=== PATIENT | female | born 1970 | race Caucasian/White ===

== ENCOUNTER 2023-07-15 09:09 | Outpatient (OUT) | payer OTHER, SELFPAY ==
--- NOTE | 2023-07-15 | XR_ITS ---
The [address] [address] Patient Name: RAHEEM DUNCAN MRN: [id number] date: 1970 Sex: F Assigned Patient Location: Current Patient Location: Accession/Order Number: [id number] Exam Date: 07/15/2023 09:30 Report Date: 07/15/2023 12:52 At the request of: RADHA GARLAND Procedure: XR lumbar spine min 4V EXAMINATION: XR lumbar spine min 4V HISTORY: LUMBAR PAIN COMPARISON: No relevant comparison available. FINDINGS: BONES: Neutral projection demonstrates no acute fracture or spondylolisthesis. Mild degenerative spondylosis. [id number] facet osteoarthropathy DISC SPACES: Normal. No significant disc height narrowing, subluxation, or endplate abnormality. PARASPINOUS: Negative. No paraspinous abnormality is seen. OTHER: No transient spondylolisthesis with flexion or extension XR/XR lumbar spine min 4V IMPRESSION: Degenerative changes most significant at T12-L1 Electronically authenticated by: EDSON ARCHIBALD Date: 07/15/2023 12:52
== END 2023-07-15 09:10 | disposition home or self-care (01) ==
LOC: EC 09:09
PROVIDERS: PCP Internal Medicine; Visit Provider Orthopaedic Surgery Orthopaedic Surgery of the Spine
DX: M54.50 Low back pain, unspecified (principal); M51.34 Other intervertebral disc degeneration, thoracic region
CPT/HCPCS: 72110

== ENCOUNTER 2023-08-17 10:51 | Outpatient (OUT) | payer OTHER, SELFPAY ==
--- NOTE | 2023-08-17 10:59 | ECG_ITS ---
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
--- NOTE | 2023-08-17 11:00 | XR_ITS ---
The [address] [address] Patient Name: RAHEEM DUNCAN MRN: [id number] date: 1970 Sex: F Assigned Patient Location: [facility] Current Patient Location: [facility] Accession/Order Number: [id number] Exam Date: 08/17/2023 11:45 Report Date: 08/17/2023 12:24 At the request of: RADHA GARLAND Procedure: XR chest 2V EXAM: XR chest 2V HISTORY: Preop exam COMPARISON: 03/06/2020 TECHNIQUE: Upright PA and lateral chest x-ray FINDINGS: The heart is not enlarged and the vasculature is not distended. A very small amount of atelectasis or scarring is seen at the left lung base. No acute infiltrate, effusion or pneumothorax is identified. There has been interval surgery with hardware now projecting over the cervical spine. XR/XR chest 2V IMPRESSION: No acute infiltrate or evidence of cardiac decompensation. A small amount of atelectasis or scarring is seen at the left lung base. There is been interval cervical spine surgery, the overall appearance of the chest is otherwise unchanged. Electronically authenticated by: SHAWNEE TELLES Date: 08/17/2023 12:24
--- OUTSIDE RECORDS SUMMARY | 2023-08-17 11:15 | XMS_ITS | CCD ---
Author Organization [facility] Care Team Providers Care Ux Developer Designer Name Role Phone MAGED MURDOCK Unavailable Unavailable LINDSEY AGUILAR (PA) Unavailable Unavail able DEVANTE YAN (VARNISH MIXER) Unavailable UnavailULYSSES Phillips JR Unavailable Unavail able MAGED MURDOCK Unavailable Unavailable LINDSEY AGUILAR (PA) Unavailable Unavail able UNKNOWN, PROVIDER Unavailable Unavailable UNKNOWN, PROVIDER Unavailable Unavailable ULYSSES RICHARDSON Unavailable Unavailable ULYSSES RICHARDSON Unavailable Unavailable PEREZ LESTER Admitting Unavailable ULYSSES RICHARDSON Primary Care Unavailable AZAR MAN Consulting Unavailable PEREZ LESTER Attending Unavailable PEREZ LESTER Consulting Unavailable MAT CASEY Consulting Unavailable Fela Smith Consulting Unavailable WALI BUSTILLOS Consulting Unavailable SHAIKH SALES Consulting Unavailable RADHA ELLIS Referring Unavailable ULYSSES RICHARDSON JR Primary Care Unavailable RADHA ELLIS Referring Unavailable ULYSSES RICHARDSON JR Primary Care Unavailable Allergies Allergy Classification Reported Allergen(s) Allergy Type Date of Onset Reaction(s) Facility (1 source) Morphine; Translations: [MORPHINE] Drug Allergy 10-18-2022 [facility] Problems Problem Classification Problem Date Documented Date Episodic/Chronic Complication of device; implant or graft (1 source) Breakdown (mechanical) of other specified internal prosthetic devices, implants and grafts, initial encounter; Translations: [BRKDWN OTH INTRL PROS DEVC GFT INIT] Onset: 03-18-2020 Episodic Immunizations and screening for infectious disease (1 source) Contact with and (suspected) exposure to other viral communicable diseases; Translations: [CONTCT EXPS OTH VIRL COMMUNICABL DZ] Onset: 03-18-2020 Episodic Mood disorders (1 source) Major depressive disorder, single episode, unspecified; Translations: [DEBBIE DEPRESS D/O SINGLE EPIS UNS] Onset: 03-18-2020 Other connective tissue disease (1 source) Arthrodesis status; Translations: [ARTHRODESIS STATUS] Onset: 04-27-2018 Episodic Other connective tissue disease (1 source) Rhabdomyolysis; Translations: [RHABDOMYOLYSIS] Onset: 03-18-2020 Episodic Other ear and sense organ disorders (1 source) Unspecified sensorineural hearing loss; Translations: [UNS SENSORINEURAL HEARING LOSS] Onset: 03-18-2020 Chronic Other injuries and conditions due to external causes (1 source) Elevated urine levels of drugs, medicaments and biological substances; Translations: [ELEV URIN LEVELS RX MEDS AND BIO SUBS] Onset: 03-18-2020 Episodic Other nervous system disorders (1 source) Other chronic pain; Translations: [OTHER CHRONIC PAIN] Onset: 03-18-2020 Chronic Poisoning by other medications and drugs (4 sources) Poisoning by other opioids, accidental (unintentional), initial encounter; Translations: [POISON OTH OPIOIDS ACC INITIAL ENC] Onset: 03-06-2020 Spondylosis; intervertebral disc disorders; other back problems (7 sources) Other spondylosis with radiculopathy, cervical region; Translations: [Other spondylosis with radiculopathy, lumbar region] Onset: 04-27-2018 Chronic Spondylosis; intervertebral disc disorders; other back problems (5 sources) Radiculopathy, cervical region; Translations: [Radiculopathy, lumbar region] Onset: 04-27-2018 Episodic Substance-related disorders (1 source) Nicotine dependence, cigarettes, uncomplicated; Translations: [NICOTINE DEPEND CIGARETTES UNCOMP] Onset: 03-18-2020 Chronic Unclassified (3 sources) Unknown / UNK(Unknown) Onset: 12-08-2017 Results Test Name Value Interpretation Reference Range Facility CARDIAC AZAR ADMITon 020 CK [Catalytic activity/Vol] 915 U/L Critically high 30-135 [facility] Comment on above: Result Comment: Test repeated. Critical value verified. Performed By: #### D RUGRPD #### [facility] [address], [place] [address] Christian Degroot CK.MB [Mass/Vol] 12.82 ng/mL Critically high <=2.37 Th [facility] Comment on above: Result Comment: Test repeated. Critical value verified. Performed By: #### D RUGRPD #### [facility] [address], [place] [address] Christian Mikayla INR Coag (Bld) [Relative time] SEE BELOW Normal [facility] Comment on above: Result Comment: <0.0 34 ng/ml NEGATIVE 0.034-0.119 INDETERMINATE 0.120 AMI CUT OFF Performed By: #### D RUGRPD #### [facility] [address] [place] [id number] Christian Mikayla ÁNGEL 96.0 ng/mL Critically high <=61.5 [facility] Comment on above: Performed By: #### D RUGRPD #### [facility] [address] [place] [address] Christian Mikayla TROP 0.028 ng/mL Normal <=0.034 [facility] Comment on above: Performed By: #### D RUGRPD #### [facility] [address] [place] [address] Christian Mikayla CK [Catalytic activity/Vol] 1282 U/L Critically high 30-135 [facility] Comment on above: Result Comment: Test repeated. Critical value verified. Performed By: #### T ROP, CMP #### [facility] [address] [place] [address] Christian Mikayla CK.MB [Mass/Vol] 24.63 ng/mL Critically high <=2.37 Th [facility] Comment on above: Result Comment: Test repeated. Critical value verified. Performed By: #### T ROP, CMP #### [facility] [address] [place] [address] Christian Mikayla INR Coag (Bld) [Relative time] SEE BELOW Normal [facility] Comment on above: Result Comment: <0.0 34 ng/ml NEGATIVE 0.034-0.119 INDETERMINATE 0.120 AMI CUT OFF Performed By: #### T ROP, CMP #### [facility] [address] [place], [place] [id number] Christian Mikayla ÁNGEL 235.0 ng/mL Critically high <=61.5 [facility] Comment on above: Performed By: #### T ROP, CMP #### [facility] [address] [place] [address] Christian Mikayla TROP 0.033 ng/mL Normal <=0.034 [facility] Comment on above: Performed By: #### T ROP, CMP #### [facility] [address] [place] [address] Christian Mikayla CBC AUTO DIFFon 03-07-2020 Basophils (Bld) [#/Vol] 0.0 103/ul Normal 0.0-0.1 [facility] Comment on above: Performed By: #### C BC #### [facility] [address] [place] [address] Christian Mikayla Basophils/100 WBC (Bld) 0.1 % Critically low 0.2-2.0 [facility] Comment on above: Performed By: #### C BC #### [facility] [address] [place] [address] Christian Mikayla Eosinophils (Bld) [#/Vol] 0.0 103/ul Normal 0.0-0.7 [facility] Comment on above: Performed By: #### C BC #### [facility] [address] [place] [address] Christian Mikayla Eosinophils/100 WBC (Bld) 0.0 % Critically low 0.9-7.0 [facility] Comment on above: Performed By: #### C BC #### [facility] [address] [place] [address] Christian Mikayla Erythrocyte distribution width (RBC) [Ratio] 13.4 % Normal 11.0-15.0 [facility] Comment on above: Performed By: #### C BC #### [facility] [address] [place] [address] Christian Mikayla Hematocrit (Bld) [Volume fraction] 35.4 % Critically low 36.0-48.0 [facility] Comment on above: Performed By: #### C BC #### [facility] [address] [place] [address] Christian Mikayla Hemoglobin (Bld) [Mass/Vol] 11.4 g/dL Critically low 12.0-16.0 [facility] Comment on above: Performed By: #### C BC #### [facility] [address] [place] [address] Christian Mikayla IG # 0.07 10e3/ul Critically high 0.00-0.03 [facility] Comment on above: Performed By: #### C BC #### [facility] [address] [place] [id number] Christian Mikayla IG % 0.4 % Normal 0.0-0.5 [facility] Comment on above: Performed By: #### C BC #### [facility] [address] [place] [address] Christian Mikayla Lymphocytes (Bld) [#/Vol] 1.1 103/ul Critically low 1.2-3.8 [facility] Comment on above: Performed By: #### C BC #### [facility] [address] [place] [address] Christian Mikayla Lymphocytes/100 WBC (Bld) 6.9 % Critically low 20.5-60.0 [facility] Comment on above: Performed By: #### C BC #### [facility] [address] [place] [address] Christian Mikayla MANUAL DIFF REQ NO Normal [facility] Comment on above: Performed By: #### C BC #### [facility] [address] [place], [place] [phone] Christian Mikayla MCH (RBC) [Entitic mass] 32.7 pg Normal 26.7-34.0 [facility] Comment on above: Performed By: #### C BC #### [facility] [address] [place] [address] Christian Mikayla MCHC (RBC) [Mass/Vol] 32.2 g/dL Normal 29.9-35.2 [facility] Comment on above: Performed By: #### C BC #### [facility] [address] [place], [place] [address] Christian Mikayla MCV (RBC) [Entitic vol] 101.4 fL Critically high 81.0-99.0 [facility] Comment on above: Performed By: #### C BC #### [facility] [address] [place], [place] [address] Christian Mikayla Monocytes (Bld) [#/Vol] 1.4 103/ul Critically high 0.3-0.8 [facility] Comment on above: Performed By: #### C BC #### [facility] [address] [place] [address] Christian Mikayla Monocytes/100 WBC (Bld) 8.6 % Normal 1.7-12.0 [facility] Comment on above: Performed By: #### C BC #### [facility] [address] [place], [place] [address] Christian Mikayla Neutrophils (Bld) [#/Vol] 13.4 103/ul Critically high 1.4-6.5 [facility] Comment on above: Performed By: #### C BC #### [facility] [address] [place], [place] [address] Christian Mikayla Neutrophils/100 WBC (Bld) 84.0 % Critically high 43.0-75.0 [facility] Comment on above: Performed By: #### C BC #### [facility] [address] [place], [place] [address] Christian Mikayla Platelet mean volume (Bld) [Entitic vol] 9.5 fL Normal 9.5-13.5 [facility] Comment on above: Performed By: #### C BC #### [facility] [address] [place] [address] Christian Mikayla Platelets (Bld) [#/Vol] 207 103/ul Normal 150-450 [facility] Comment on above: Performed By: #### C BC #### [facility] [address] [place] [address] Christian Miakyla RBC (Bld) [#/Vol] 3.49 106/ul Critically low 4.20-5.40 Th [facility] Comment on above: Performed By: #### C BC #### [facility] [address] [place], [place] [address] Christian Mikayla WBC (Bld) [#/Vol] 16.0 103/ul Critically high 4.0-11.0 [facility] Comment on above: Performed By: #### C BC #### [facility] [address], [place] [address] Christian Mikayla PROF CHEM 8 (BAS METB)on Anion gap [Moles/Vol] 11.2 mmol/L Normal [facility] Comment on above: Performed By: #### D RUGRPD #### [facility] [address] [place] [id number] Christian Mikayla Calcium [Mass/Vol] 8.3 mg/dL Critically low 8.4-10.2 Th [facility] Comment on above: Performed By: #### D RUGRPD #### [facility] [address] [place] [address] Christian Mikayla Chloride [Moles/Vol] 106 mmol/L Normal 98-107 [facility] Comment on above: Performed By: #### D RUGRPD #### [facility] [address] [place] [address] Christian Mikayla CO2 [Moles/Vol] 24.5 mmol/L Normal 22.0-30.0 [facility] Comment on above: Performed By: #### D RUGRPD #### [facility] [address] [place], [place] [address] Christian Mikayla Creatinine [Mass/Vol] 0.53 mg/dL Normal 0.52-1.04 [facility] Comment on above: Performed By: #### D RUGRPD #### [facility] [address] [place], [place] [address] Christian Mikayla EGFR-AF GUINEAN >60 Normal >=60 [facility] Comment on above: Performed By: #### D RUGRPD #### [facility] [address] [place] [address] Christian Mikayla EGFR-NON AF GUINEAN >60 Normal >=60 [facility] Comment on above: Performed By: #### D RUGRPD #### [facility] [address] [place] [address] Christian Mikayla Glucose [Mass/Vol] 113 mg/dL Critically high 74-106 T [facility] Comment on above: Performed By: #### D RUGRPD #### [facility] [address] [place] [address] Christian Mikayla Potassium [Moles/Vol] 3.7 mmol/L Normal 3.4-5.0 [facility] Comment on above: Performed By: #### D RUGRPD #### [facility] [address] [place], [place] [address] Christian Mikayla Sodium [Moles/Vol] 138 mmol/L Normal 137-145 [facility] Comment on above: Performed By: #### D RUGRPD #### [facility] [address] [place] [address] Christian Mikayla Urea nitrogen [Mass/Vol] 12.0 mg/dL Normal 7.0-17.0 [facility] Comment on above: Performed By: #### D JUNED #### [facility] [address] [place] [address] Christian Mikayla Urea nitrogen/Creatinin e [Mass ratio] 22.6 mg/mg Normal [facility] Comment on above: Performed By: #### D RUGLANDYD #### [facility] [address] [place], [place] [address] Christian Mikayla CBC W MANUAL DIFFon 03-06-20 20 ATYPICAL LYMPH # Normal [facility] Comment on above: Performed By: #### D JUNED #### [facility] [address] [place] [address] Christian Mikayla ATYPICAL LYMPH % Normal [facility] Comment on above: Performed By: #### D RUGRPD #### [facility] [address] [place], [place] [address] Christian Mikayla BAND # Normal 0.0-0.3 [facility] Comment on above: Performed By: #### D RUGRPD #### [facility] [address] [place], [place] [address] Christian Mikayla BAND % Normal 0-5 [facility] Comment on above: Performed By: #### D RUGRPD #### [facility] [address] [place], [place] [address] Christian Mikayla BASOM # 0.00 103/ul Normal 0.00-0.10 [facility] Comment on above: Performed By: #### D RUGRPD #### [facility] [address] [place] [id number] Christian Mikayla BASOM % 0.0 % Critically low 0.2-2.0 [facility] Comment on above: Performed By: #### D RUGRPD #### [facility] [address] [place] [address] Christian Mikayla BLAST # Normal [facility] Comment on above: Performed By: #### D RUGRPD #### [facility] [address] [place] [address] Christian Mikayla BLAST % Normal [facility] Comment on above: Performed By: #### D RUGRPD #### [facility] [address] [place] [address] Christian Mikayla CORRECTED WBC Normal 4.0-11.0 [facility] Comment on above: Performed By: #### D RUGJONAS #### [facility] [address] [place] [address] Christian Mikayla Eosinophils (Bld) [#/Vol] 0.00 103/ul Normal 0.00-0.70 [facility] Comment on above: Performed By: #### D RUGRPD #### [facility] [address] [place] [address] Christian Mikayla Eosinophils/100 WBC (Bld) 0.0 % Critically low 0.9-7.0 [facility] Comment on above: Performed By: #### D RUGRPD #### [facility] [address] [place] [address] Christian Mikayla Erythrocyte distribution width (RBC) [Ratio] 13.2 % Normal 11.0-15.0 [facility] Comment on above: Performed By: #### D RUGRPD #### [facility] [address] [place] [address] Christian Mikayla Hematocrit (Bld) [Volume fraction] 44.1 % Normal 36.0-48.0 [facility] Comment on above: Performed By: #### D RUGRPD #### [facility] [address] [place], [place] [address] Christian Mikayla Hemoglobin (Bld) [Mass/Vol] 13.9 g/dl Normal 12.0-16.0 [facility] Comment on above: Performed By: #### D MARIAMARPD #### [facility] [address] [place] [id number] Christian Mikayla LYMPHM # 0.26 103/ul Critically low 1.20-3.80 [facility] Comment on above: Performed By: #### D JUNED #### [facility] [address] [place] [id number] Christian Mikayla LYMPHM% 1.0 % Critically low 20.5-60.0 [facility] Comment on above: Performed By: #### D COLT #### [facility] [address] [place], [place] [address] Christian Mikayla MCH (RBC) [Entitic mass] 32.6 pg Normal 26.7-34.0 [facility] Comment on above: Performed By: #### D COLT #### [facility] [address] [place], [place] [address] Christian Mikayla MCHC (RBC) [Mass/Vol] 31.5 g/dl Normal 29.9-35.2 [facility] Comment on above: Performed By: #### D RUGRPD #### [facility] [address] [place], [place] [address] Christian Mikayla MCV (RBC) [Entitic vol] 103.3 fL Critically high 81.0-99.0 [facility] Comment on above: Performed By: #### D JUNED #### [facility] [address] [place] [address] Christian Mikayla METAMYELOCYTE # Normal [facility] Comment on above: Performed By: #### D RUGRPD #### [facility] [address] [place], [place] [address] Christian Mikayla METAMYELOCYTE % Normal [facility] Comment on above: Performed By: #### D COLT #### [facility] [address] [place], [place] [address] Christian Mikayla MONOM# 1.32 103/ul Critically high 0.30-0.80 [facility] Comment on above: Performed By: #### D RUGRPD #### [facility] [address], [place] [address] Christianvíctor Degroot MONOM% 5.0 % Normal 1.7-12.0 [facility] Comment on above: Performed By: #### D RUGRPD #### [facility] [address] [place] [id number] Christian Mikayla MYELOCYTE # Normal [facility] Comment on above: Performed By: #### D RUGRPD #### [facility] [address] [place] [address] Christian Mikayla MYELOCYTE % Normal [facility] Comment on above: Performed By: #### D RUGRPD #### [facility] [address] [place], [place] [address] Christian Mikayla NRBC Normal [facility] Comment on above: Performed By: #### D RUGRPD #### [facility] [address] [place] [address] Christianvíctor Santanaen Platelet mean volume (Bld) [Entitic vol] 9.6 fL Normal 9.5-13.5 [facility] Comment on above: Performed By: #### D RUGRPD #### [facility] [address] [place] [address] Christian Mikayla Platelets (Bld) [#/Vol] 268 103/ul Normal 150-450 [facility] Comment on above: Performed By: #### D RUGRPD #### [facility] [address] [place] [address] Christian Mikayla RBC (Bld) [#/Vol] 4.27 106/ul Normal 4.20-5.40 [facility] Comment on above: Performed By: #### D RUGRPD #### [facility] [address] [place] [address] Christian Mikayla SEG # 24.82 103/ul Critically high 1.40-6.50 [facility] Comment on above: Performed By: #### D RUGRPD #### [facility] [address] [place] [address] Christian Degroot Segmented neutrophils/100 WBC (Bld) 94.0 % Critically high 43.0-75.0 [facility] Comment on above: Performed By: #### D RUGRPD #### [facility] [address] [place] [address] Christian Degroot WBC (Bld) [#/Vol] 26.4 103/ul Critically high 4.0-11.0 [facility] Comment on above: Performed By: #### D RUGRPD #### [facility] [address] [place] [address] Christian Degroot CPKon 03-06-2020 CK [Catalytic activity/Vol] 464 U/L Critically high 30-135 [facility] Comment on above: Result Comment: test repeated critical value verified Performed By: #### C K #### [facility] [address] [place], [place] [address] Christian Degroot CT ABD/PELV W CONon 03-06-[address] ABD/PELV W CON EXAMINATION: CT ABD/ PELV W CON HISTORY: UNSPECIFIED ABDOMINAL PAIN . Found unresponsive. COMPARISON: None. TECHNIQUE: Enhanced helical acquisition was obtained through the abdomen or pelvis. (100 mL Omnipaque 300). Dose reduction techniques were achieved by using automated exposure control and/or adjustment of mA and/or kV according to patient size and/or use of iterative reconstruction technique. FINDINGS: Dependent bibasilar atelectasis is present within the included lung bases. There is diffuse periportal edema within the liver. A 1.1 cm cyst is noted within the dome of the left hepatic lobe as well as a smaller 1 cm left lobe and 0.6 cm right hepatic lobe cysts. Focal fatty infiltration is noted within the left hepatic lobe adjacent to the falciform ligament. The spleen, pancreas, adrenal glands and the kidneys are unremarkable. Mild atherosclerotic vascular consultation to present involving the abdominal aorta. No enlarged lymph nodes are visualized within the abdomen. There is beam hardening artifact secondary to pain pump within the subcutaneous anterolateral left abdominal wall. No enlarged lymph nodes are visualized within the abdomen or the pelvis. The appendix is unremarkable. Bilateral adnexal cysts are present, largest on the right measuring 4.4 cm in diameter. No ascites or focal intraperitoneal fluid collections are visualized. Foreman catheter is present within the urinary bladder. IMPRESSION: 1. Bilateral adnexal cysts, the largest on the right measuring 4.4 cm in diameter. This could be more optimally characterized with dedicated pelvic ultrasound. 2. Periportal edema within the liver is noted. This may be secondary to hypervolemia or may occur in the setting of diffuse hepatocellular disease such as hepatitis. Recommend correlation with LFTs. 3. Incidental hepatic cysts. Electronically authenticated by: MAT CASEY Date: 2020-03-06 18:45 Normal [facility] CT STROKE HEAD WOon 03-06-[address] STROKE HEAD WO EXAMINATION: CT STRO KE HEAD WO HISTORY: Unresponsive COMPARISON: None. TECHNIQUE: CT examination of the head without IV contrast. Dose reduction techniques were achieved by using automated exposure control and/or adjustment of mA and/or kV according to patient size and/or use of iterative reconstruction technique. FINDINGS: No midline shift, mass effect or intracranial hemorrhage are identified. The mastoid air cells and the visualized paranasal sinuses are clear. No evidence of calvarial fracture. IMPRESSION: No acute intracranial process. Critical results were called by Dr. Mat Casey to JACKY Archibald At 03/06/2020 3:59 PM EDT. Electronically authenticated by: MAT CASEY Date: 2020-03-06 16:31 Normal [facility] DRUG SCREEN RAPID (URINE)on 03-06-2020 AMP Positive Normal NEGATIVE [facility] Comment on above: Performed By: #### D RUGRPD #### [facility] [address] [address] Christian Mikayla BAR Negative Normal NEGATIVE [facility] Comment on above: Performed By: #### D RUGRPD #### [facility] [address] [address] Christian Mikayla BUP Negative Normal NEGATIVE [facility] Comment on above: Performed By: #### D RUGRPD #### [facility] [address] [address] Christian Mikayla BZO Negative Normal NEGATIVE [facility] Comment on above: Performed By: #### D RUGRPD #### [facility] [address] [address] Christian Mikayla RITCHIE Negative Normal NEGATIVE [facility] Comment on above: Performed By: #### D RUGRPD #### [facility] [address] [place] [address] Christian Mikayla CUT-OFFS SEE BELOW Normal [facility] Comment on above: Result Comment: AMP (Amphetamine): 500ng/mL, BAR (Barbituates): 200 ng/mL, BZO (Benzodiazepines): 150 ng/mL, BUP (Buprenorphine): 10 ng/mL, RITCHIE (Cocaine): 150 ng/mL, mAMP (Methamphetamine): 500 ng/mL, MTD (Methadone): 200 ng/mL, OPI (Opiates): 100 ng/mL or 2000 ng/mL, OXY (Oxycodone): 100 ng/mL, PCP (Phencyclidine): 25 ng/mL, PPX (Propoxyphene): 300 ng/mL, THC (Cannabinoids): 50 ng/mL, TCA (Trycyclic Antidepressants): 300 ng/mL Performed By: #### D RUGRPD #### [facility] [address] [place] [address] DRUG CUT HEADER DRUG CLASS TEST SYST EM CUT-OFF CONCENTRATIONS ARE FOLLOWS: Normal [facility] Comment on above: Performed By: #### D RUGRPD #### [facility] [address] [place] [address] Christian Mikayla mAMP Negative Normal NEGATIVE [facility] Comment on above: Performed By: #### D RUGRPD #### [facility] [address] [place] [address] Christian Mikayla MTD Negative Normal NEGATIVE [facility] Comment on above: Performed By: #### D RUGRPD #### [facility] [address] [place] [address] Christian Mikayla OPI Positive Normal NEGATIVE [facility] Comment on above: Performed By: #### D RUGRPD #### [facility] [address] [place] [address] Christian Mikayla OXY Negative Normal NEGATIVE [facility] Comment on above: Performed By: #### D RUGRPD #### [facility] [address] [place] [address] Christian Mikayla PCP Negative Normal NEGATIVE [facility] Comment on above: Performed By: #### D RUGRPD #### [facility] [address] [place] [address] Christian Mikayla PPX Negative Normal NEGATIVE [facility] Comment on above: Performed By: #### D RUGRPD #### [facility] [address] [place] [address] Christian Mikayla TCA Negative Normal NEGATIVE [facility] Comment on above: Performed By: #### D RUGRPD #### [facility] [address] [place] [address] Christian Mikayla THC Negative Normal NEGATIVE [facility] Comment on above: Performed By: #### D RUGRPD #### [facility] [address] [place] [address] Christian Mikayla ER URINE PROFILEon 0 Bilirubin [Mass/Vol] Negative Normal NEGATIVE [facility] Comment on above: Performed By: #### E RUR #### [facility] [address] [place] [address] Christian Mikayla BLOOD Negative Normal NEGATIVE [facility] Comment on above: Performed By: #### E RUR #### [facility] [address] [place] [address] Christian Mikayla Clarity (U) CLEAR Normal [facility] Comment on above: Performed By: #### E RUR #### [facility] [address] [place] [address] Christian Mikayla Color (U) YELLOW Normal YELLOW [facility] Comment on above: Performed By: #### E RUR #### [facility] [address] [place], [place] [id number] Christian Mikayla ERUAHD A micrscopic examina tion will be performed if indicated. Normal [facility] Comment on above: Performed By: #### E RUR #### [facility] [address] [place] [address] Christian Mikayla Glucose [Mass/Vol] Negative Normal NEGATIVE [facility] Comment on above: Performed By: #### E RUR #### [facility] [address] [place], [place] [id number] Christian Mikayla Ketones Ql (U) Negative Normal NEGATIVE [facility] Comment on above: Performed By: #### E RUR #### [facility] [address] [place], [place] [phone] Christian Mikayla Nitrite Ql (U) Negative Normal NEGATIVE [facility] Comment on above: Performed By: #### E RUR #### [facility] [address] [place] [address] Christian Mikayla pH (Bld) 6.0 Normal 5-9 [facility] Comment on above: Performed By: #### E RUR #### [facility] [address] [place] [address] Christian Mikayla Protein (U) [Mass/Vol] TRACE Normal [facility] Comment on above: Performed By: #### E RUR #### [facility] [address] [place] [address] Christian Mikayla SPEC GRAVITY >=1.030 Normal 1.005-<=1.02 5 [facility] Comment on above: Performed By: #### E RUR #### [facility] [address] [place] [address] Christianvíctor Degroot UR MICRO IND NOT INDICATED Normal [facility] Comment on above: Performed By: #### E RUR #### [facility] [address] [place] [address] Christianvíctor Degroot Urobilinogen Qn (U) 0.2 EU/dl Normal [facility] Comment on above: Performed By: #### E RUR #### [facility] [address] [place], [place] [phone] Christian Mikayla WBC (Bld) [#/Vol] Negative Normal NEGATIVE [facility] Comment on above: Performed By: #### E RUR #### [facility] [address] [place], [place] [phone] Christian Mikayla ETHANOL (BLD ALC)on 03-06-20 20 Ethanol [Mass/Vol] NOTE: 80 mg/dl is th e legal limit for a blood alcohol level Normal [facility] Comment on above: Performed By: #### E TH #### [facility] [address] [place], [place] [address] Christian Degroot Ethanol [Mass/Vol] mg/dL Normal [facility] Comment on above: Performed By: #### E TH #### [facility] [address] [place] [address] Christian Degroot HEMOGRAM AND PLATELon 2019 WBC (Bld) [#/Vol] 23.5 103/ul Critically high 4.0-11.0 [facility] Comment on above: Performed By: #### H H #### [facility] [address] [place] [address] Christian Degroot LACTATE/LACTIC ACIDon 2019 Lactate [Moles/Vol] 0.7 mmol/L Normal 0.7-2.0 [facility] Comment on above: Performed By: #### L ACT #### [facility] [address] [place] [address] Christian Degroot MYOGLOBINon 03-06-2020 Myoglobin [Mass/Vol] 918.0 ng/mL Critically high <=61.5 [facility] Comment on above: Result Comment: test repeated critical value verified Performed By: #### M YO #### [facility] [address] [place] [address] Christian Degroot POINT OF CARE GLUCOSEon 02-14 Glucose [Mass/Vol] 117 mg/dL Critically high 74-106 [facility] Comment on above: Performed By: #### D RUGRPD #### [facility] [address] [place] [address] Christian Degroot PROF 14(COMP METB)on 020 Albumin [Mass/Vol] 3.3 g/dL Critically low 3.5-5.0 [facility] Comment on above: Performed By: #### T ROP, CMP #### [facility] [address] [place], [place] [phone] Christian Degroot Albumin/Globulin [Mass ratio] 1.1 {ratio} Normal [facility] Comment on above: Performed By: #### T ROP, CMP #### [facility] [address] [id number] Christian Mikayla ALP [Catalytic activity/Vol] 69 U/L Normal 38-126 [facility] Comment on above: Performed By: #### T ROP, CMP #### [facility] [address] [phone] Christian Mikayla ALT [Catalytic activity/Vol] 30 U/L Normal 9-52 [facility] Comment on above: Performed By: #### T ROP, CMP #### [facility] [address] [id number] Christian Mikayla Anion gap [Moles/Vol] 16.8 mmol/L Normal [facility] Comment on above: Performed By: #### T ROP, CMP #### [facility] [address] [address] Christian Mikayla AST [Catalytic activity/Vol] 29 U/L Normal 14-36 [facility] Comment on above: Performed By: #### T ROP, CMP #### [facility] [address] [id number] Christian Mikayla Bilirubin Ql (U) 0.4 mg/dL Normal 0.2-1.3 [facility] Comment on above: Performed By: #### T ROP, CMP #### [facility] [address] [phone] Christian Mikayla Calcium [Mass/Vol] 8.7 mg/dL Normal 8.4-10.2 [facility] Comment on above: Performed By: #### T ROP, CMP #### [facility] [address] [phone] Christian Mikayla Chloride [Moles/Vol] 104 mmol/L Normal 98-107 [facility] Comment on above: Performed By: #### T ROP, CMP #### [facility] [address] [phone] Christian Mikayla CO2 [Moles/Vol] 22.6 mmol/L Normal 22.0-30.0 [facility] Comment on above: Performed By: #### T ROP, CMP #### [facility] [address] [phone] Christian Mikayla Creatinine [Mass/Vol] 0.92 mg/dL Normal 0.52-1.04 [facility] Comment on above: Performed By: #### T ROP, CMP #### [facility] [address] [phone] Christian Mikayla EGFR-AF GUINEAN >60 Normal >=60 [facility] Comment on above: Performed By: #### T ROP, CMP #### [facility] [address] [address] Christian Mikayla EGFR-NON AF GUINEAN >60 Normal >=60 [facility] Comment on above: Performed By: #### T ROP, CMP #### [facility] [address] [address] Christian Mikayla Globulin (S) [Mass/Vol] 3.0 g/dL Normal [facility] Comment on above: Performed By: #### T ROP, CMP #### [facility] [address] [address] Christian Mikayla Glucose [Mass/Vol] 130 mg/dL Critically high 74-106 [facility] Comment on above: Performed By: #### T ROP, CMP #### [facility] [address] [address] Christian Mikayla Potassium [Moles/Vol] 4.4 mmol/L Normal 3.4-5.0 [facility] Comment on above: Performed By: #### T ROP, CMP #### [facility] [address] [address] Christian Mikayla Protein [Mass/Vol] 6.3 g/dL Normal 6.1-8.2 [facility] Comment on above: Performed By: #### T ROP, CMP #### [facility] [address] [address] Christian Mikayla Sodium [Moles/Vol] 139 mmol/L Normal 137-145 [facility] Comment on above: Performed By: #### T ROP, CMP #### [facility] [address] [place] [address] Christian Mikayla Urea nitrogen [Mass/Vol] 18.0 mg/dL Critically high 7.0-17.0 [facility] Comment on above: Performed By: #### T BLAYNE, CMP #### [facility] [address] [place] [address] Christian Mikayla Urea nitrogen/Creatinin e [Mass ratio] 19.6 mg/mg Normal [facility] Comment on above: Performed By: #### T BLAYNE, CMP #### [facility] [address] [place] [address] Christian Mikayla RESPIRATORY PANEL PLUSon Adenovirus NOT DETECTED Normal NOT DETECTED [facility] Comment on above: Performed By: #### D RUGRPD #### [facility] [address] [place] [address] Christian Mikayla B. Parapertusis NOT DETECTED Normal NOT DETECTED [facility] Comment on above: Performed By: #### D RUGRPD #### [facility] [address] [place] [address] Christian Mikayla B. Pertussis NOT DETECTED Normal NOT DETECTED [facility] Comment on above: Performed By: #### D RUGRPD #### [facility] [address] [place] [address] Christian Mikayla Chlamydia Pneumoniae NOT DETECTED Normal NOT DETECTED [facility] Comment on above: Performed By: #### D RUGRPD #### [facility] [address] [place] [address] Christian Mikayla Coronavirus 229E NOT DETECTED Normal NOT DETECTED [facility] Comment on above: Performed By: #### D RUGRPD #### [facility] [address] [place] [address] Christian Mikayla Coronavirus HKU1 NOT DETECTED Normal NOT DETECTED [facility] Comment on above: Performed By: #### D RUGRPD #### [facility] [address] [place] [address] Christian Mikayla Coronavirus NL63 NOT DETECTED Normal NOT DETECTED [facility] Comment on above: Performed By: #### D RUGRPD #### [facility] [address] [address] Christian Mikayla Coronavirus OC43 NOT DETECTED Normal NOT DETECTED [facility] Comment on above: Performed By: #### D RUGRPD #### [facility] [address] [address] Christian Mikayla Influenza A H1 2009 NOT DETECTED Normal NOT DETECTED [facility] Comment on above: Performed By: #### D RUGRPD #### [facility] [address] [address] Christian Mikayla Influenza B NOT DETECTED Normal NOT DETECTED [facility] Comment on above: Performed By: #### D RUGRPD #### [facility] [address] [place] [address] Christian Mikayla Metapneumovirus NOT DETECTED Normal NOT DETECTED [facility] Comment on above: Performed By: #### D RUGRPD #### [facility] [address] [place] [address] Christian Mikayla Mycoplas. Pneumoniae NOT DETECTED Normal NOT DETECTED [facility] Comment on above: Performed By: #### D RUGRPD #### [facility] [address] [address] Christian Mikayla Parainfluenza 1 NOT DETECTED Normal NOT DETECTED [facility] Comment on above: Performed By: #### D RUGRPD #### [facility] [address] [address] Christian Mikayla Parainfluenza 2 NOT DETECTED Normal NOT DETECTED [facility] Comment on above: Performed By: #### D RUGRPD #### [facility] [address] [place] [address] Christian Mikayla Parainfluenza 3 NOT DETECTED Normal NOT DETECTED [facility] Comment on above: Performed By: #### D RUGRPD #### [facility] [address] [address] Christian Mikayla Parainfluenza 4 NOT DETECTED Normal NOT DETECTED [facility] Comment on above: Performed By: #### D RUGRPD #### [facility] [address] [place] [address] Christian Degroot Rhino/Enterovirus NOT DETECTED Normal NOT DETECTED [facility] Comment on above: Performed By: #### D RUGRPD #### [facility] [address] [place] [address] Christian Degroot RP2 Header 1 RESPIRATORY PANEL: VIRUSES Normal [facility] Comment on above: Performed By: #### D RUGRPD #### [facility] [address] [place] [address] Christian Degroot RP2 Header 2 RESPIRATORY PANEL: BACTERIA Normal [facility] Comment on above: Performed By: #### D RUGRPD #### [facility] [address] [place] [address] Christian Degroot RP2 Header 4 EUA SEE BELOW Normal [facility] Comment on above: Result Comment: This test is not yet approved or cleared by the [place] FDA. When there are no FDA-approved or cleared tests available, and other criteria are met, FDA can make tests available under an emergency access mechanism called an Emergency Use Authorization (EUA). The EUA for this test is supported by the [employer] of Health and Human Service?s (HHS?s) declaration that circumstances exist to justify the emergency use of in vitro diagnostics for the detection and/or diagnosis of the virus that causes COVID-19. This EUA will remain in effect (meaning this test can be used) for the duration of the COVID-19 declaration justifying emergency of IVDs, unless it is terminated or revoked by FDA (after which the test may no longer be used). Performed By: #### D RUGRPD #### [facility] [address] [place] [address] Christian Degroot RSV NOT DETECTED Normal NOT DETECTED [facility] Comment on above: Performed By: #### D RUGRPD #### [facility] [address] [place] [address] Christian Degroot SARS-CoV-2: COVID-19 NOT DETECTED Normal NOT DETECTED [facility] Comment on above: Performed By: #### D RUGRPD #### [facility] [address] [place] [address] Christian Degroot TROPONIN - Ion 10-22-2020 Troponin I.cardiac [Mass/Vol] 0.016 ng/mL Normal <=0.034 [facility] Comment on above: Performed By: #### T BLAYNE CMP #### [facility] [address] [place], [place] [address] Christian Degroot Troponin I.cardiac [Mass/Vol] SEE BELOW Normal [facility] Comment on above: Result Comment: <0.0 34 ng/ml NEGATIVE 0.034-0.119 INDETERMINATE 0.120 AMI CUT OFF Performed By: #### T BLAYNE CMP #### [facility] [address] [place], [place] [address] Christian Degroot XR CHEST 1 Von 03-06-2020 XR CHEST 1 V EXAM: Portable chest REASON FOR EXAM: Shortness of breath. Patient was found unresponsive at home. The patient has a morphine pump implanted, and the patient was given Narcan by EMS. TECHNIQUE: A portable frontal view of the chest was obtained. COMPARISON: None. FINDINGS: The lungs are well-inflated and clear. The heart and mediastinum are normal. There is no mass or pathologic adenopathy. Osseous structures are normal. IMPRESSION: No acute cardiopulmonary process. Electronically authenticated by: FELA SMITH Date: 2020-03-06 15:07 Normal [facility] CT 3D CERVICAL SPINE WITH CO NTRASTon 04-27-2018 CT 3D [facility] [address] [place] [address] Patient Name: RADHA DUNCAN : 1970Sex: FAge: Race: WhiteMRN: [id number]. Location: 85Patient Status: OVisit #: [id number] Date: 04/10/2018 12:10:00 PMCompleted Date: 04/27/2018 10:58 AMRequesting Provider: MARY DIAL Attending Provider: MARY DIAL Report Copy To: ULYSSES RICHARDSON Signs & Symptoms: M54.12 Radiculopathy, cervical region [id number]: Nyla MYELOGRAM AUTH [id number] VALID 04/11/18-07/12/18 PER [employer] [facility] [id number] JYComments: Exam: CT 3D CERVICAL SPINE WITH CONTRASTAccession #: [id number] CT 3D CERVICAL SPINE WITH CONTRAST 04/27/2018 10:58 AM EST SIGN AND SYMPTOMS: M54.12 Radiculopathy, cervical region I10 TECHNOLOGIST COMMENTS: neck pain low back pain Radiculopathy PROTOCOL: Axial CT images of the spine were obtained with IV contrast. TECHNIQUE: Multi detector CT axial slices of the cervical spine are obtained without IV contrast. Subarachnoid contrast administered during myelogram. Volumetric acquisition sagittal, coronal, and 3-D reconstructions were performed and reviewed on a separate workstation. Appropriate CT dose lowering techniques were utilized. COMPARISON: Myelogram April 27, 2018. Cervical spine February 28, 2017. FINDINGS: Satisfactory alignment of the cervical spine.Anterior fusion hardware at C4-C6 with disc spacers. There is satisfactory bony fusion.Moderate degenerative changes at C3-C4. There is a broad-based disc bulge which flattens the anterior thecal sac and causes mild central canal narrowing. Uncovertebral joint spurring with disc osteophyte complex causes mild neural foraminal narrowing.Partial ossification of the posterior longitudinal ligament posterior to C2-C3.The remaining intervertebral disc spaces are well-preserved.The atlantoaxial space is within normal limits.The soft tissues in the neck are unremarkable.There is scarring at the lung apices which are otherwise unremarkable. IMPRESSION: 1. Moderate degenerative changes at C3-C4. Broad-based disc bulge causes mild central canal narrowing. Disc osteophyte complex causes mild neural foraminal narrowing.2. Anterior fusion hardware at C4-C6 with disc spacers. No hardware complication. Approved by:Mandeep Young on 04/27/2018 11:14 AM EST. I, Oli Sanders, have reviewed the images and report and concur with these findings. Electronically signed by:Oli Sanders. Transcribed by: [email or web address], User Resident: MANDEEP YOUNGElectronically Signed by: OLI SANDERS @ 04/27/2018 01:02 PMI personally read this/these film(s) with this resident Normal The [facility] CT 3D LUMBAR SPINE W CONTRAS Ton 04-27-2018 CT 3D LUMBAR SPINE W CONTRAST [facility] [address] [id number] Patient Name: RADHA DUNCAN : 1970Sex: FAge: Race: WhiteMRN: [id number]. Location: 85Patient Status: DVisit #: [id number] Date: 04/10/2018 12:10:00 PMCompleted Date: 04/27/2018 10:59 AMRequesting Provider: MARY DIAL Attending Provider: MARY DIAL Report Copy To: ULYSSES RICHARDSON Signs & Symptoms: M54.16 Radiculopathy, lumbar region [id number]: Nyla MYELOGRAM AUTH [id number] VALID 04/11/18-07/12/18 [facility] [id number] JYComments: Exam: CT 3D LUMBAR SPINE W CONTRASTAccession #: [id number] CT 3D LUMBAR SPINE W CONTRAST 04/27/2018 10:59 AM EST TECHNOLOGIST COMMENTS: neck pain low back pain Radiculopathy PROTOCOL: Axial CT images of the spine were obtained with IV contrast. TECHNIQUE: Multi detector CT axial slices of the lumbar spine are obtained without IV contrast. Intrathecal contrast administered during myelogram. Volumetric acquisition sagittal, coronal, and 3-D reconstructions were performed and reviewed on a separate workstation. Appropriate CT dose lowering techniques were utilized. COMPARISON: None FINDINGS: Satisfactory alignment of the lumbar spine.The vertebral body heights are well-preserved.Mild disc space narrowing at L3-4 and L4-5.The conus appears to terminate at the L1 vertebral body level. L1-L2: There is a normal central canal and bony neural foramina. L2-L3: There is a normal central canal and bony neural foramina. L3-L4: There is a broad-based disc bulge which flattens the anterior thecal sac. Mild central canal narrowing. Facet hypertrophy. No significant neural foraminal narrowing. L4-5: Broad-based disc bulge which flattens the anterior thecal sac. Mild central canal narrowing. Facet joint hypertrophy. No significant neural foraminal narrowing. L5-S1: There is a normal central canal. Facet joint hypertrophy. No significant bony neural foraminal narrowing. IMPRESSION: 1. No high-grade central canal or neural foraminal narrowing.2. Small broad-based disc bulges which flattens the anterior thecal sac and causes mild central canal narrowing at L3-L4 and L4-L5.3. Facet hypertrophy at L3-S1. Approved by:Mandeep Young on 04/27/2018 2:51 PM EST. I, Martínez Skelton, have reviewed the images and report and concur with these findings. Electronically signed by:Martínez Skelton. Transcribed by: [id number], User Resident: MANDEEP YOUNGElectronically Signed by: MARTÍNEZ SKELTON @ 04/27/2018 05:36 PMI personally read this/these film(s) with this resident Normal [facility] ENTIRE MYELOGRAMon 8 E[facility]IRE [facility]GRAM [facility] [address] [place] [address] Patient Name: RADHA DUNCAN : 1970Sex: FAge: Race: WhiteMRN: [id number]. Location: 85Patient Status: OVisit #: [id number] Date: 04/10/2018 12:10:00 PMCompleted Date: 04/27/2018 10:19 AMRequesting Provider: MARY DIAL Attending Provider: MARY DIAL Report Copy To: ULYSSES RICHARDSON Signs & Symptoms: M54.16 Radiculopathy, lumbar region V59Cngbwkx: [place] CT MYELOGRAMComments: , , , Ordering Provider - MARY DIAL MD , Exam: ENTIRE MYELOGRAMAccession #: [id number] ENTIRE MYELOGRAM 04/27/2018 10:19 AM EST SIGNS AND SYMPTOMS: M54.16 Radiculopathy, lumbar region I10 TECHNOLOGIST COMMENTS: Dr. Young/Román/Pepe used 0.70 minutes of fluoro time and 12 ml's of Omnipaque 240 for a cervical and lumbar myelogram QUESTION FOR THE RADIOLOGIST: , , , Ordering Provider - MARY DIAL MD , INFORMED CONSENT: Reason for procedure was discussed with the patient. The procedure expectations risks benefits options and alternatives were discussed. All the questions were answered. The patient understood that results cannot be guaranteed. The procedure is indicated and risks are acceptable. Consent was obtained. Timeout:[place] protocol timeout verification performed. PROCEDURE:Estimated blood loss:None mL. Fluoroscopy time: 0.70 minutes CONTRAST: Contrast: OMNIPAQUE 240 (LOCM), 12 milliliter, subarachnoid FINDINGS:Lidocaine 1% ws used for local anesthesia. Lumbar punction was performed under fluroscopic guidance with strict aseptic precautions at L3-L4 via oblique sublaminar approach using a 3.5 inch 22-guage Retrograde free flow of clear CSF was obtained.Approximately 12 mL of Omnipaque 240 was introduced under intermittent fluoroscopic visualization. Images were obtained of the lumbar spine. The table was placed in Trendelenburg position and the contrast was visualized fluoroscopically as transit of the cervical spine. The patient tolerated the procedure well and was sent for CT cervical and lumbar myelogram. Procedure done by Dr. Young under direct supervision of Dr. Sanders IMPRESSION: Successful cervical and lumbar myelogram. Please see separate CT total spine report for detailed findings. Patient tolerated the procedure well and there were no immediate complications. Approved by:Mandeep Young on 04/27/2018 11:26 AM CHARLEEN. I, Oli Sanders, have reviewed the images and report and concur with these findings. Electronically signed by:Oli Sanders. Transcribed by: [email or web address], User Resident: MANDEEP YOUNGElectronically Signed by: OLI SANDERS @ 04/27/2018 01:01 PMI personally read this/these film(s) with this resident Normal [facility] Comment on above: Order Comment: , , = ========= , Ordering Provider - MARY DIAL MD , Ta 02-20-2018 SONIA Telephone (ETELVINA) -------RADHA DUNCAN ([id number]) 1970 [facility] Time Provider Kodggqynnl07/8/18 MAGED MURDOCK During your visit today, we recorded the following information about you:Sumanthrolly [facility] Patient Service Spec 02/20/2018 8:05 AM SignedPt recv'd a letter for the release of care.Pt does not want a release of care letter.Pt is requesting a referral to have her procedure closer to where she lives.Please advise and phone pt. at number in contacts.Elysia Montoya Psr 02/22/2018 8:36 AM SignedPatient calling to see if Dr. Murdock can do referral for her to get procedurecloser to home; not to be released from his care.Please call her back at [phone].Elysia Garza Psr 02/22/2018 8:37 AM SignedPlease fax letter over to [phone].Clint Park LPN 02/27/2018 10:18 AM SignedSpoke with patient and she wanted to know if knew of a physician inthe area that she lived that could do the ketamine infusion.I explained most likely he would not have this information she would need tocheck around in her area with other pain providers to see if they do theinfusions. She said [place] found one in the [place] area but they want money upfront and it is up to the patient to send it to the insurance company.She doesnot have the up front money.I explained that he was going to send her for a research trial and this couldbe covered by the trial she would need to go and find out more about the trialand how it works. She said she is going to check a few more places and if theywon't do it she will call back.Maged Murdock MD 02/28/2018 2:01 PM SignedI already printed this information for the patient, including a name of adoctor in her areaI handed it to her on the day of the last visit personallyJimi Joyner As of Date: 02/20/2018(No Known Allergies)Date Reviewed: 02/10/2018Reviewed by: Kayla Sparks LPN - Fully AssessedReason for Visit: Letter [264]Prescriptions as of 02/20/2018 Sig: DULOXETINE 60 MG CAPSULE,KIET* Cymbalta 60 mg capsule,delaye* OXCARBAZEPINE 150 MG TABLET Take 1 tablet by mouth twice * OXYCODONE-ACETAMINOPHEN 5 MG-* Take 1 tablet by mouth every * BACLOFEN ORAL Take 100 mg by mouth once kim*Problem List As Of Date 02/20/2018 Noted Resolved Back pain [M54.9] Former smoker [Z87.891] Neck pain [M54.2] INVALID FOR* 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] INVALID FOR* Status:Closed by MAGED MURDOCK MD on 02/28/18 [facility] CNOVon 02-10-2018 CNOV Office Visit (PAINCC) -------RADHA DUNCAN ([id number]) 1970 FDate Time Provider Department02/10/18 10:45 AM MAGED MURDOCK [facility] During your visit today, we recorded the following information about you: Pulse Respiration Blood pressure Weight 80/minute 16/minute 132/47 69.9 kgJosenjourdan Murdock MD 02/11/2018 1:30 PM AddendumSUBJECTIVE:The patient presents to [facility] Department for afollow-up appointment for pain in the neck,shoulders and my arms It is described as:Aching(+)Stiff(+)Burning (+)Stabbing(-)Constant(+)Th e patient rates it as a 6/10. The pain is worse when the patient performsthe following actions: weather. Using arms trying to hold things. [place] FH: patient denies any family history of the chief complaint for this visitSH: denies illicit drug useIs the patient receiving analgesia/pain relief from the current medications?(+)baclofen,per cocet,ibuprofen and cymbalta helpHas the current medication improved activities of daily living? (+)Have the current medications been associated with any adverse events? (-)Has the patient displayed any aberrant drug-related behaviors? (-)Last took opioid medication: percocet was last taken 02/09/2018 [facility] [place] [facility].Imaging results in scanned documents dates 12/2017REVIEW OF SYSTEMS:GENERAL: (-) weight loss, (+)malaise, (-)fevers.HEENT:(+)headache s.NECK: (-) for lumps, goiter, (+)pain and (-)significant neck swelling.RESPIRATORY: (-) for cough, wheezing or shortness of breath.CARDIOVASCULAR: (-) for chest pain, leg swelling or palpitations.GI: (+) abdominal discomfort, (-)blood in stools or black stools or change inbowel habits.MUSCULOSKELETAL: (+)joint pain , (-)swelling, (+)back pain, (+)muscle pain.SKIN: (+) for lesions, rash, and itching.shoulder areaPSYCH: (+)sleep disturbance, (-)mood disorder, (-)recent psychosocial stressors.HEMATOLOGY/LYMPHO LOGY: (-) for prolonged bleeding, bruising easily or swollennodes.NEURO: (+)syncope, paralysis, seizures or tremors.All other reviewed and negative other than HPI.Data scribed by above mentioned MA/NURSE SANE/RN/PA, and personally reviewed andverified by physician. Maged Murdock MDOBJECTIVE:PHYSICAL EXAMINATION:VS: BP (!) 132/47 Pulse 80 Resp 16 Wt 69.9 kg (154 lb) BMI 26.43kg/m?GENERAL: Well appearing. No acute distressPSYCH: Mood and affect is appropriate. Awake, alert, and oriented x 3SKIN: Skin color, texture, turgor normal, no rashes or lesionsOtolaryng/HEENT: Normocephalic, atraumatic. EOM intactRESP: Respirations are unlaboredCARD: Regular rate. Cap refill <2s. Extremities pink and well perfused atnailbed.GI: Abdomen soft and non-tender.MSK: Bilateral upper and lower extremity strength is normal and symmetric. Noatrophy or tone abnormalities are noted.Cervical: (-)pain to palpation over the cervical paraspinal muscles.Lumbar: Straight leg raising is negative. (+) pain to palpation lumbarparaspinal muscles. facet loading is (+) bilaterally. No pain to palpation overthe PSIS.Gait: Gait is antalgicNEURO: Bilateral upper and lower extremity coordination are intact. Musclestretch reflexes are physiologic and symmetric. No loss of sensationASSESSMENT AND MEDICAL DECISION MAKING:The patient is a 48 year old female with neck and UE painDx:Facet syndrome (hcc) (primary encounter diagnosis)Cervical spondylosis without myelopathyPain in thoracic spineCurrent smokerRadiculopathy, cervical regionCervical post-laminectomy syndrome?PLAN:Based on your newest MRI scans, the pain in your neck and arms appears to bedue to a combination of: 1. facet syndrome 2. central sensitizationThe pain can be treated with periodic ketamine infusion.Since you did not tolerate the cervical facet joint medial branch nerveablation at an outside hospital I would not recommend pursuing that further.You can have the ketamine infusion here as part of a research trial, or at alocation nearer to home.Please call with any questions.Direct patient care time spent: 25+15 min. Of this, greater than 50% of thiswas spent in the presence of the patient for purposes of education andcounseling regarding the diagnosis and treatment of pain.Patient is aware that any diagnostic testing is best discussed in person tofully explain the significance and resulting treatment plan. Patient agreeswith above. Maged Murdock, [facility]2017Referring Provider: LINDSEY AGUILAR [[id number]]Allergies As of Date: 02/10/2018(No Known Allergies)Date Reviewed: 02/10/2018Reviewed by: Kayla Sparks LPN - Fully AssessedReason for Visit: Follow Up [171]Visit Diagnoses:Cervical facet syndrome [M47.812] Neuralgia and neuritis [M79.2]Prescriptions as of 02/10/2018 Sig: DULOXETINE 60 MG CAPSULE,KIET* Cymbalta 60 mg capsule,delaye* OXCARBAZEPINE 150 MG TABLET Take 1 tablet by mouth twice * OXYCODONE-ACETAMINOPHEN 5 MG-* Take 1 tablet by mouth every * BACLOFEN ORAL Take 100 mg by mouth once kim*Problem List As Of Date 02/10/2018 Noted Resolved Back pain [M54.9] Former smoker [Z87.891] Neck pain [M54.2] INVALID FOR* 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] INVALID FOR*Letter TextSept[address] [facility] [address] [place], [place] [phone], [place] [phone] Radha Duncan:Thank you for seeing me today. Based on your newest MRI scans, the pain inyour neck and arms appears to be due to a combination of:1. facet syndrome2. central sensitizationThe pain can be treated with periodic ketamine infusion. Since you did nottolerate the cervical facet joint medial branch nerve ablation at an outsidehospital I would not pursue that further.You can have the ketamine infusion here as part of a research trial, or at alocation nearer to home. Please call with any questions. Sincerely, Maged Murdock MDEncounter Number: [id number] Status:Closed by MAGED MURDOCK MD on 02/11/18 Normal [facility] PROGRESSon 02-10-2018 Protein mass conc HNO ID: [id number] thor: Maged Jolleyervice: (none)Author Type: PhysicianType: Progress NotesFiled: 02/11/2018 1:30 PMNote Text:SUBJECTIVE:[facility] Management Departmentfor a follow-up appointment for pain in the neck,shoulders and my arms It is described as:Aching(+)Stiff(+)Burning (+)Stabbing(-)Constant(+)Th e patient rates it as a 6/10. The pain is worse when the patientperforms the following actions: weather. Using arms trying to holdthings. [place] FH: patient denies any family history of the chief complaint for thisvisitSH: denies illicit drug useIs the patient receiving analgesia/pain relief from the currentmedications? (+)baclofen,percocet,ibupro fen and cymbalta helpHas the current medication improved activities of daily living? (+)Have the current medications been associated with any adverse events? (-)Has the patient displayed any aberrant drug-related behaviors? (-)Last took opioid medication: percocet was last taken 02/09/2018 in thelate morningRelevant OARRS records were reviewed.Imaging results in scanned documents dates 12/2017REVIEW OF SYSTEMS:GENERAL: (-) weight loss, (+)malaise, (-)fevers.HEENT:(+)headache s.NECK: (-) for lumps, goiter, (+)pain and (-)significant neck swelling.RESPIRATORY: (-) for cough, wheezing or shortness of breath.CARDIOVASCULAR: (-) for chest pain, leg swelling or palpitations.GI: (+) abdominal discomfort, (-)blood in stools or black stools orchange in bowel habits.MUSCULOSKELETAL: (+)joint pain , (-)swelling, (+)back pain, (+)musclepain.SKIN: (+) for lesions, rash, and itching.shoulder areaPSYCH: (+)sleep disturbance, (-)mood disorder, (-)recent psychosocialstressors.HEMAT OLOGY/LYMPHOLOGY: (-) for prolonged bleeding, bruising easily orswollen nodes.NEURO: (+)syncope, paralysis, seizures or tremors.All other reviewed and negative other than HPI.Data scribed by above mentioned MA/NURSE SANE/RN/PA, and personally reviewed andverified by physician. Maged Murdock MDOBJECTIVE:PHYSICAL EXAMINATION:VS: BP (!) 132/47 Pulse 80 Resp 16 Wt 69.9 kg (154 lb) BMI26.43 kg/m?GENERAL: Well appearing. No acute distressPSYCH: Mood and affect is appropriate. Awake, alert, and oriented x 3SKIN: Skin color, texture, turgor normal, no rashes or lesionsOtolaryng/HEENT: Normocephalic, atraumatic. EOM intactRESP: Respirations are unlaboredCARD: Regular rate. Cap refill <2s. Extremities pink and well perfused atnailbed.GI: Abdomen soft and non-tender.MSK: Bilateral upper and lower extremity strength is normal andsymmetric. No atrophy or tone abnormalities are noted.Cervical: (-)pain to palpation over the cervical paraspinal muscles.Lumbar: Straight leg raising is negative. (+) pain to palpation lumbarparaspinal muscles. facet loading is (+) bilaterally. No pain to palpationover the PSIS.Gait: Gait is antalgicNEURO: Bilateral upper and lower extremity coordination are intact.Muscle stretch reflexes are physiologic and symmetric. No loss ofsensationASSESSMENT AND MEDICAL DECISION MAKING:The patient is a 48 year old female with neck and UE painDx:Facet syndrome (hcc) (primary encounter diagnosis)Cervical spondylosis without myelopathyPain in thoracic spineCurrent smokerRadiculopathy, cervical regionCervical post-laminectomy syndrome?PLAN:Based on your newest MRI scans, the pain in your neck and arms appears crys due to a combination of: 1. facet syndrome 2. central sensitizationThe pain can be treated with periodic ketamine infusion.Since you did not tolerate the cervical facet joint medial branch nerveablation at an outside hospital I would not recommend pursuing thatfurther.You can have the ketamine infusion here as part of a research trial, or jonh location nearer to home.Please call with any questions.Direct patient care time spent: 25+15 min. Of this, greater than 50% ofthis was spent in the presence of the patient for purposes of educationand counseling regarding the diagnosis and treatment of pain.Patient is aware that any diagnostic testing is best discussed in personto fully explain the significance and resulting treatment plan. Patientagrees with above. Maged Murdock, PAUeptember 2017 Normal [facility] CNOVon 01-10-2018 CNOV Office Visit (PAINCC) -------RADHA DUNCAN ([id number]) 1970 FDate Time Provider Department01/10/18 1:00 PM DEVANTE YAN ([employer]ER) PAINCC During your visit today, we recorded the following information about you: Pulse Blood pressure Weight 85/minute 127/47 70.3 kgDevante Yan APRN.CNP 01/10/2018 2:13 PM SignedSUBJECTIVE:The patient presents to [facility] Management Department for afollow-up appointment for pain in the neck and shoulders. It is described as:Aching(+)Sharp (+)Numb and tingling (+)The patient rates it as a 5/10. The pain is worse when the patient performsthe following actions: physical activity. FH: patient denies any family history of the chief complaint for this visitSH: denies illicit drug useIs the patient receiving analgesia/pain relief from the current medications?(+) takes the edge offHas the current medication improved activities of daily living? (+)Have the current medications been associated with any adverse events? (+)Has the patient displayed any aberrant drug-related behaviors? (-)Relevant OARRS records were reviewed.MRI of cervical spine:C2-C3: No significant disc/facet abnormality, spinal stenosis, or foraminalstenosisC3-C4: Mild-moderate foraminal narrowing bilaterally. Mild central canalnarrowing. Moderate diffuse disc bulging and mild disc height reductionC4-C5: Moderate right mild left foraminal narrowing. Mild central canalnarrowing. Moderate diffuse disc bulging and mild disc height reductionC5-C6: Early degenerative disc disease is present without focal protrusion orneural impingementC6-C7: No significant disc/facet abnormality spinal stenosis, or foraminalstenosisC7-T1: No significant disc/facet abnormality spinal stenosis or foraminalstenosisConclusion : Mild to moderate foraminal narrowing at C3-C4, and C4-C5 secondaryto DDDAnterior mechanical fusion of L8-0-3AQWANH OF SYSTEMS:GENERAL: (-) weight loss, (+)malaise, (-)fevers.HEENT:(+)headache s.NECK: (-) for lumps, goiter, (+)pain and (-)significant neck swelling.RESPIRATORY: (+) for cough, wheezing or shortness of breath.CARDIOVASCULAR: (-) for chest pain, leg swelling or palpitations.GI: (-) abdominal discomfort, (-)blood in stools or black stools or change inbowel habits.MUSCULOSKELETAL: (+)joint pain , (-)swelling, (+)back pain, (+)muscle pain.SKIN: (-) for lesions, rash, and itching.PSYCH: (+)sleep disturbance, (-)mood disorder, (+)recent psychosocial stressors(re-applied for disability.HEMATOLOGY/LYMPH OLOGY: (-) for prolonged bleeding, bruising easily or swollennodes.NEURO: (-)syncope, paralysis, seizures or tremors.All other reviewed and negative other than HPI.Data scribed by above mentioned MA/NURSE SANE/RN/PA, and personally reviewed andverified by Devante Yan APRN.CNPOBJECTIVE:PHYSICAL EXAMINATION:VS: BP (!) 127/47 Pulse 85 Wt 70.3 kg (155 lb) BMI 26.61 kg/m?GENERAL: Well appearing. No acute distressPSYCH: Mood and affect is appropriate. Awake, alert, and oriented x 3SKIN: Skin color, texture, turgor normal, no rashes or lesionsOtolaryng/HEENT: Normocephalic, atraumatic. EOM intactRESP: Respirations are unlaboredCARD: Regular rate. Cap refill <2s Extremities pink and well perfused atnailbedGI: Abdomen soft and non-tenderMSK: Bilateral upper and lower extremity strength is normal and symmetric. Noatrophy or tone abnormalities are noted.Cervical: (+)pain to palpation over the cervical paraspinal muscles. Pain withrotation of cervical spine L>RThoracic: = pain with palpation over the thoracic paraspinal musclesLumbar: Straight leg raising is negative. (-) pain to palpation lumbarparaspinal muscles. Facet loading is (-) bilaterally. No pain to palpation overthe PSIS.Gait: Gait is antalgicNEURO: Bilateral upper and lower extremity coordination are intact. Musclestretch reflexes are physiologic and symmetric. no loss of sensation is noted.ASSESSMENT AND MEDICAL DECISION MAKING:The patient is a 48 year old female with chronic neck painPain is same, at occiput pain both sides of neck that radiates into shoulderblades and into handsPain with holding objects in hands for prolonged period of timeShe is worried about returning to work as her job involves repetitive movementsand workMRI of cervical spine reviewed with patientShe asks if she can return to workDx:Facet syndrome (hcc) (primary encounter diagnosis)Cervical spondylosis without myelopathyPain in thoracic spineCurrent smokerRadiculopathy, cervical regionCervical post-laminectomy syndromePLAN:1) Discussed Chronic Pain Rehab (pt does not have transportation to attend thisprogram for the week)2) Discussed option of Cervical facet blocks, patient had worsening of her painwhen these where performed in the past3) Will discuss with Dr. Murdock patient's current symptoms and call withfurther recommendations4) Pt has had failed trials of NSAIDs, Gabapentin and Lyrica5) Continue HEP, and TENS unit to affected area6) Return to clinic as neededDirect patient care time spent: 25 min. Of this, greater than 50% of this wasspent in the presence of the patient for purposes of education and counselingregarding the diagnosis and treatment of pain.Patient is aware that any diagnostic testing is best discussed in person tofully explain the significance and resulting treatment plan. Patient agreeswith above.Devante Yan APRN.CNPAumimbres memorial hospitalt 2017Referring Provider: ULYSSES RICHARDSON JR [[id number]]Allergies As of Date: 01/10/2018(No Known Allergies)Date Reviewed: 01/10/2018Reviewed by: Clint Park LPN - Fully AssessedReason for Visit: Follow Up [171]Primary Visit Diagnosis:Facet syndrome (HCC) [M46.90] Other Visit Diagnoses:Cervical spondylosis without myelopathy [M47.812] Pain in thoracic spine [M54.6] Current smoker [F17.200] Radiculopathy, cervical region [M54.12] Cervical post-laminectomy syndrome [M96.1]Prescriptions as of 01/10/2018 Sig: OXCARBAZEPINE 150 MG TABLET Take 1 tablet by mouth twice * OXYCODONE-ACETAMINOPHEN 5 MG-* Take 1 tablet by mouth every * BACLOFEN ORAL Take 100 mg by mouth once kim*Problem List As Of Date 01/10/2018 Noted Resolved Back pain [M54.9] Former smoker [Z87.891] Neck pain [M54.2] INVALID FOR* 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] INVALID FOR*Follow-up and Disposition History RecordedEncounter Number: [id number] Status:Closed by DEVANTE YAN CNP on 01/10/18 Normal [facility] PROGRESSon 01-09-2018 Protein mass conc HNO ID: [id number] thor: Devante Pereyra ([place]) HillService: (none)Author Type: Nurse PractitionerType: Progress NotesFiled: 01/10/2018 2:13 PMNote Text:SUBJECTIVE:[facility] Departmentfor a follow-up appointment for pain in the neck and shoulders. It is described as:Aching(+)Sharp (+)Numb and tingling (+)The patient rates it as a 5/10. The pain is worse when the patientperforms the following actions: physical activity. FH: patient denies any family history of the chief complaint for thisvisitSH: denies illicit drug useIs the patient receiving analgesia/pain relief from the currentmedications? (+) takes the edge offHas the current medication improved activities of daily living? (+)Have the current medications been associated with any adverse events? (+)Has the patient displayed any aberrant drug-related behaviors? (-)Relevant OAR[place] records were reviewed.MRI of cervical spine:C2-C3: No significant disc/facet abnormality, spinal stenosis, orforaminal stenosisC3-C4: Mild-moderate foraminal narrowing bilaterally. Mild central canalnarrowing. Moderate diffuse disc bulging and mild disc height reductionC4-C5: Moderate right mild left foraminal narrowing. Mild central canalnarrowing. Moderate diffuse disc bulging and mild disc height reductionC5-C6: Early degenerative disc disease is present without focal protrusionor neural impingementC6-C7: No significant disc/facet abnormality spinal stenosis, or foraminalstenosisC7-T1: No significant disc/facet abnormality spinal stenosis or foraminalstenosisConclusion : Mild to moderate foraminal narrowing at C3-C4, and C4-J7pgawufxuw to DDDAnterior mechanical fusion of J3-6-1DFLZZN OF SYSTEMS:GENERAL: (-) weight loss, (+)malaise, (-)fevers.HEENT:(+)headache s.NECK: (-) for lumps, goiter, (+)pain and (-)significant neck swelling.RESPIRATORY: (+) for cough, wheezing or shortness of breath.CARDIOVASCULAR: (-) for chest pain, leg swelling or palpitations.GI: (-) abdominal discomfort, (-)blood in stools or black stools orchange in bowel habits.MUSCULOSKELETAL: (+)joint pain , (-)swelling, (+)back pain, (+)musclepain.SKIN: (-) for lesions, rash, and itching.PSYCH: (+)sleep disturbance, (-)mood disorder, (+)recent psychosocialstressors (re-applied for disability.HEMATOLOGY/LYMPH OLOGY: (-) for prolonged bleeding, bruising easily orswollen nodes.NEURO: (-)syncope, paralysis, seizures or tremors.All other reviewed and negative other than HPI.Data scribed by above mentioned MA/NURSE SANE/RN/PA, and personally reviewed andverified by Devante Yan APRN.CNPOBJECTIVE:PHYSICAL EXAMINATION:VS: BP (!) 127/47 Pulse 85 Wt 70.3 kg (155 lb) BMI 26.61 kg/m?GENERAL: Well appearing. No acute distressPSYCH: Mood and affect is appropriate. Awake, alert, and oriented x 3SKIN: Skin color, texture, turgor normal, no rashes or lesionsOtolaryng/HEENT: Normocephalic, atraumatic. EOM intactRESP: Respirations are unlaboredCARD: Regular rate. Cap refill <2s Extremities pink and well perfused atnailbedGI: Abdomen soft and non-tenderMSK: Bilateral upper and lower extremity strength is normal andsymmetric. No atrophy or tone abnormalities are noted.Cervical: (+)pain to palpation over the cervical paraspinal muscles. Painwith rotation of cervical spine L>RThoracic: = pain with palpation over the thoracic paraspinal musclesLumbar: Straight leg raising is negative. (-) pain to palpation lumbarparaspinal muscles. Facet loading is (-) bilaterally. No pain to palpationover the PSIS.Gait: Gait is antalgicNEURO: Bilateral upper and lower extremity coordination are intact.Muscle stretch reflexes are physiologic and symmetric. no loss ofsensation is noted.ASSESSMENT AND MEDICAL DECISION MAKING:The patient is a 48 year old female with chronic neck painPain is same, at occiput pain both sides of neck that radiates intoshoulder blades and into handsPain with holding objects in hands for prolonged period of timeShe is worried about returning to work as her job involves repetitivemovements and workMRI of cervical spine reviewed with patientShe asks if she can return to workDx:Facet syndrome (hcc) (primary encounter diagnosis)Cervical spondylosis without myelopathyPain in thoracic spineCurrent smokerRadiculopathy, cervical regionCervical post-laminectomy syndromePLAN:1) Discussed Chronic Pain Rehab (pt does not have transportation to attendthis program for the week)2) Discussed option of Cervical facet blocks, patient had worsening of herpain when these where performed in the past3) Will discuss with Dr. Murdock patient's current symptoms and call withfurther recommendations4) Pt has had failed trials of NSAIDs, Gabapentin and Lyrica5) Continue HEP, and TENS unit to affected area6) Return to clinic as neededDirect patient care time spent: 25 min. Of this, greater than 50% ofthis was spent in the presence of the patient for purposes of educationand counseling regarding the diagnosis and treatment of pain.Patient is aware that any diagnostic testing is best discussed in personto fully explain the significance and resulting treatment plan. Patientagrees with above.Devante Yan APRN.CNPAuguschristen 2017 Normal [facility] CNPNon 12-21-2017 CNPN Telephone (JOYCELYN) -------RAD[facility] DUNCAN ([id number]) 1970 [facility] Provider Department12/21/17 MAGED MURDOCK During your visit today, we recorded the following information about you:Lorena Araiza 12/21/2017 10:31 AM AddendumPatient calling in to inquire if you have received MRI films from [facility].Please advisJacob Park LPN 12/22/2017 3:15 PM SignedSpoke with patient and informed her that we did receive the thoracic MRI whichwas normal.We did not receive the cervical MRI. She will call [facility] and have them refaxit.Kami Zheng Workleader 12/26/2017 9:53 AM SignedPatient called back in regards to below message. Patient would like to know ifwe have received the Cervical MRI as it was refaxed 12/22. Pleasereview.Clint Park LPN 12/26/2017 11:01 AM SignedSpoke to [facility] and they are refaxing it as I only received cover.Clint Park LPN 12/26/2017 11:[address]I will have Dr. Murdock review on when he is in office.Clint Park LPN 12/29/2017 4:31 PM SignedSpoke with patient and moved her appt with Devantedarcy aYn as said sheneeded office visit.Allergies As of Date: 12/21/2017(No Known Allergies)Date Reviewed: 12/08/2017Reviewed by: Kayla Sparks LPN - Fully AssessedReason for Visit: Question [1327]Prescriptions as of 12/21/2017 Sig: OXCARBAZEPINE 150 MG TABLET Take 1 tablet by mouth twice * OXYCODONE-ACETAMINOPHEN 5 MG-* Take 1 tablet by mouth every * BACLOFEN ORAL Take 100 mg by mouth once kim*Problem List As Of Date 12/21/2017 Noted Resolved Back pain [M54.9] Former smoker [Z87.891] Neck pain [M54.2] INVALID FOR* 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] INVALID FOR* Status:Closed by CLINT PARK LPN on 12/22/17 [facility] CNOVon 12-08-2017 CNOV Office Visit (PAIN[facility]) -------RADHA DUNCAN ([id number]) 1970 FDate Time Provider Department12/08/17 1:30 PM MAGED MURDOCK During your visit today, we recorded the following information about you: Pulse Respiration Blood pressure Weight 62/minute 16/minute 105/40 68.9 kgMaged Murdock MD 12/08/2017 6:06 PM SignedReferring Or Consulting Physician:Lindsey Aguilar, PA[address] [address]CMKQF COMPLAINT: pain in my neck, shoulders, thoracic spine, and all the way down my arms to myfingers* HPI: This is a 47 year old female here for evaluation of pain that began 3+ yearsago following no particular inciting event. At this point, the pain islocated in the neck,shoulders,between my shoulders and down my arms . Thepatient describes the pain as boring, burning, numbness, tingling, cramping andspasms and is a 7/10 in severity. It is constant, severe and excruciatingThe pain is exacerbated by any thing and is mitigated by heat, percocettakes the edge off. In the past, the patient has been treated with opioidsnucynta,neurontin,an d injections these therapies did not help. The patient iscurrently taking percocet for pain.In the past, the patient has been treated with the following interventionalpain procedures:1. C2-T1 medial branch blockade diagnostic (0% relief x 0 hrs)2. C2-T1 rfa (0% relief): reports severe post procedural pain 3. cervical epidural steroid injection: reports they did not help Relevant [place]AR[place] records were reviewed.Adverse Reaction to Medication: noOpioid Agreement: YesReceiving Disability Income: applying nowLast Date/Time Patient had Opioid Medication: N/APrevious treatments in the past 6 months have included:Formal Physical Therapy: yes, did not helpHome Exercise: noTried NSAIDs: yesCracking by a chiropractor: no?Imaging Studies:MRi cervical 4/4/16Segmentation anomaly C2-3C3 to C6 disc-osteophyte complexfacet arthropathyT5 hemangioma vs. metastasisNM Bone scan (2015)no abnormal uptake at T5EMG (10/2017) [facility] Pain MgmtBil C5, C6 motor chronic radic on left and rightBil C6, C7 chronic motor radiculI personally reviewed the above imaging findings, and discussed them with thepatient in detail. ---------Is the patient receiving analgesia/pain relief from the current medications? (-)Has the current medication improved activities of daily living? (-)Have the current medications been associated with any adverse events? (-)Has the patient displayed any aberrant drug-related behaviors? (-)Illicit drug use? 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 FOR PAIN.OXcarbazepine (TRILEPTAL) 150 mg tablet Take 1 tablet by mouth twice daily.oxyCODONE-acetaminoph en (PERCOCET) 5-325 mg tablet Take 1 tablet by mouth every4 hours as needed.gabapentin (NEURONTIN) 100 mg capsule Take 100 mg by mouth twice daily.tapentadol (NUCYNTA) 50 mg tab Take 50 mg by mouth twice daily.No current facility-administered medications for this visit.REVIEW OF SYSTEMS:GENERAL: weight loss (-), malaise(+), fevers (-)HEENT: thrush(-), epistaxis(-)NECK: Negative for neck swelling.RESPIRATORY: Negative for cough, wheezing or shortness of breath ().CARDIOVASCULAR: chest pain(-), leg swelling(-) or palpitations(-)GI: abdominal discomfort(+), blood in stools/melena/change in bowel habits(-).MUSCULOSKELETAL: joint pain(+), swelling(-), back pain(+) , muscle pain(+).SKIN: Negative for lesions, rash, and itching.PSYCH: sleep disturbance(+), mood disorder(-), recent psychosocialstressors(-).HE MATOLOGY/LYMPHOLOGY: Negative for prolonged bleeding, easy bruising, orswollen nodes (-)NEURO: headaches(+), syncope(-), paralysis(-), seizures(-), tremors (-)All other reviewed and negative other than HPI.Data scribed by above mentioned MA/NURSE SANE/RN/PA, and personally reviewed andverified by physician. Maged Murdock MDOBJECTIVE:VS: BP (!) 105/40 Pulse 62 Resp 16 Wt 68.9 kg (152 lb) BMI 26.09kg/m?PHYSICAL EXAMINATION:GENERAL: Well appearing, in no acute distressPSYCH: Mood and affect is appropriate. Awake, alert, and oriented x 3SKIN: very tanHEENT: Normocephalic, atraumatic. PERRLA.RESP: Respirations are unlaboredCARD: Regular rate. Cap refill <2s. Extremities pink and well perfused atnailbedGI: Abdomen soft and non-tenderMSK: Bilateral upper and lower extremity strength is normal and symmetric. Noatrophy or tone abnormalities are notedCervical: (+)pain to palpation over the cervical paraspinal muscles. Spurlingis (+). (+)pain with neck flexion, extension or rotation. Rotation islimited to 10 degrees on right and left. Axial Loading Test negative,Hwang's sign negative. No obvious deformity or signs of trauma. Normalcervical lordotic curve and full flexion and extension of cervical spine.Thoracic: (+) pain to palpation paraspinal muscles. Facet loading is (+)bilaterally. Diffusely tenderLumbar: Straight leg raising in the sitting position is (-) for radicularpain. (-)pain to palpation lumbar paraspinal muscles. Facet loading is (-)bilaterally.(-) pain to palpation over the PSIS, sacroiliac joint provocative maneuvers are(-) for pain reproduction bilaterally.Extremities: Peripheral joint ROM is full and pain free without obviousinstability or laxity in all four extremities. No deformities, edema, or skindiscoloration. Good capillary refill.Gait: Gait is antalgicNEURO: Bilateral upper and lower extremity coordination are intact. Musclestretch reflexes are physiologic and symmetric. Plantar response aredowngoing. No loss of sensation is noted.ASSESSMENT AND MEDICAL DECISION MAKING:This is a pleasant anxious 47 year old female with neck and UE pain-of note she does have tenderness over the thoracic spine. there was somequestion of T5 hemangioma vs. metastatic lesion in 2016-currently smoking, also during rena-operative period. we dont have swtk-tmajepo-lpxqjwbl for disability, likely to hamper rapid recovery and functionalrestoration-faile d tens, mobic, celebrex, lyrica, gabapentin,-takes cymbalta 120mg qd and trileptal for mood swings currently-It doesn't sound like the cervical radiculopathy is a pain generator despiteEMG evidence. I dont think SCS would have any benefit. She has significantpsychological disease which does need to be further treated, perhaps with CBTDx:Facet syndrome (hcc) (primary encounter diagnosis)Pain in thoracic spineRadiculopathy, cervical regionVitamin d deficiencyLocalized swelling, mass and lump, trunkCervical post-laminectomy syndromeCervical spondylosis without myelopathyCurrent smokerMalaise and fatiguePLAN:1. see epic letters2. check labs for conditions masquerading3. check MRI cervical wo, and mri thoracic wwo to assess post op conditions.4. [facility] chronic pain rehab program if the disability issue gets settled. Shecan return to work FT as far as I can tell5. see us prn after completion of above6. counseled re: quit smoking7. if pain persists after all this above, she could consider repeat ofdiagnostic blockade above the level of the surgery to see what the paingenerator is, but Im not inclined to do this since she did have severe postprocedure pain in [place] [facility] handsDirect patient care time spent: 60min. Of this, greater than 50% of this wasspent in the presence of the patient for purposes of education and counselingregarding the diagnosis and treatment of pain. I answered the patient'squestions regarding this.-We did make the patient aware that any diagnostic testing results are bestdiscussed in person so we can provide a clear explanation of theirsignificance.-I discussed healthy habits, lifestyle changes and physical activity as well asdisease prevention/maintenance, including the impact of tobacco/illicit drugson pain and its treatment.-Patient is in agreement with the above and verbalized understanding. It willbe communicated with the referring or consulting physician above via electronicrecord, fax, or mail.Maged Murdock MDJuly 2017Referring Provider: LINDSEY AGUILAR [[id number]]Allergies As of Date: 12/08/2017(No Known Allergies)Date Reviewed: 12/08/2017Reviewed by: Kayla Sparks NURSE SANE - Fully AssessedReason for Visit: New Patient [172]Primary Visit Diagnosis:Facet syndrome (HCC) [M46.90] Other Visit Diagnoses:Pain in thoracic spine [M54.6] Radiculopathy, cervical region [M54.12] Vitamin D deficiency [E55.9] Localized swelling, mass and lump, trunk [R22.2] Cervical post-laminectomy syndrome [M96.1] Cervical spondylosis without myelopathy [M47.812] Current smoker [F17.200] Malaise and fatigue [R53.81, R53.83] Spinal stenosis of cervical region [M48.02]Order(s):C-REACTIVE PROTEIN (CRP) [SQCRP] Order #: [id number] FUTURE SED RATE WESTERGREN [SQWSR] Order #: [id number] FUTURE TSH BLD [SQTSH] Order #: [id number] FUTURE IRON + TIBC [SQIRON] Order #: [id number] FUTURE VITAMIN D 25 HYDROXY [SQVITD] Order #: [id number] FUTURE MRI THORACIC SPINE WO/W IVCON [[id number]] Order #: [id number] FUTURE iv contrast (will be provided with radiology test)MRI TSP Inject, intravenously, once for 1 dose. No IV access, insert saline lock prior to the beginning of sedation, infusion, injection of imaging exam. Discontinue saline lock post exam. If Pt. has a central line or IVAD, may access for administration according to line specific nursing protocol. Once exam is complete flush line and de-access according to line specific nursing protocol in the MR contrast administration guidelines link.Disp: 1 EachRfl: 0 MRI CERVICAL SPINE WO IVCON [[id number]] Order #: [id number] FUTUREPrescriptions as of 12/08/2017 Sig: OXCARBAZEPINE 150 MG TABLET Take 1 tablet by mouth twice * OXYCODONE-ACETAMINOPHEN 5 MG-* Take 1 tablet by mouth every * BACLOFEN ORAL Take 100 mg by mouth once kim* IV CONTRAST (RADIOLOGY PROCED* MRI TSP Inject, intravenousl*Problem List As Of Date 12/08/2017 Noted Resolved Back pain [M54.9] Former smoker [Z87.891] Neck pain [M54.2] INVALID FOR* 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] INVALID FOR*Prescriptions ordered this encounter Disp Refills Start End IV CONTRAST (RADIOLOGY PROCEDURE) 1 Ea* 0 12/08/2017 12/09/2017 Class: In Office Sig: MRI TSP Inject, intravenously, once for 1 dose. No IV access, insert saline lock prior to the beginning of sedation, infusion, injection of imaging exam. Discontinue saline lock post exam. If Pt. has a central line or IVAD, may access for administration according to line specific nursing protocol. Once exam is complete flush line and de-access according to line specific nursing protocol in the MR contrast administration guidelines link.Medications Discontinued During This Encounter meloxicam (MOBIC) 15 mg tablet 12/08/2017 Class: Historical Med Route: ORAL Sig: Take 15 mg by mouth once daily. Disc: Course of therapy completed gabapentin (NEURONTIN) 100 mg capsule 12/08/2017 Class: Historical Med Route: ORAL Sig: Take 100 mg by mouth twice daily. Disc: Reason for discontinue is not on file. tapentadol (NUCYNTA) 50 mg tab 12/08/2017 Class: Historical Med Route: ORAL Sig: Take 50 mg by mouth twice daily. Disc: Course of therapy completed ibuprofen (MOTRIN) 800 mg tablet 12/08/2017 12/08/2017 Class: Historical Med Route: ORAL Sig: Take 1 tablet by mouth every 8 hours as needed. FOR PAIN. Disc: Reason for discontinue is not on file.Letter TextJuly 2017Maged MurdockSamaritan North Health CenterDepartment of Pain Orqqecfenm[address].[place], [place] [phone] [phone] Suzanne M Bailey:Thank you for seeing me today. Based on our discussion today and review ofyour old records, it appears that:1. Your arm pain seems to be unrelated to your nerve damage at the spine.2. Your neck pain appears to be caused by the facet joints in the neck. Thismay also be the cause of your occipital headache (back of the head).So, it is curious that the diagnostic blockade did not change the pain inyour neck, arms or head. Normally, I would suggest we repeat this test.However, since you had as you describe, severe pain post-procedure, Iwouldn't repeat this test straightaway.Since you continue to have pain in the cervical and thoracic spine, we shouldfurther investigate that. I've ordered some testing to do so (labs,imaging).Instead, optimizing your medications for the issues above, [facility] be the next steps. Afterthat, further testing could be done to get to the bottom of your problems.Please call with any questions. Sincerely, Maged Murdock MDEncounter Number: [id number] Status:Closed by MAGED MURDOCK MD on 12/08/17 Normal [facility] PROGRESSon 12-08-2017 Protein mass conc HNO ID: [id number] thor: Maged Jolleyervice: (none)Author Type: PhysicianType: Progress NotesFiled: 12/08/2017 6:06 PMNote Text:Referring Or Consulting Physician:JACKY Vargas[address] [facility] [address] [id number] COMPLAINT: pain in my neck, shoulders, thoracic spine, and all the way down my armsto my fingers* HPI: This is a 47 year old female here for evaluation of pain that began 3+years ago following no particular inciting event. At this point, thepain is located in the neck,shoulders,between my shoulders and down myarms . The patient describes the pain as boring, burning, numbness,tingling, cramping and spasms and is a 7/10 in severity. It is constant,severe and excruciatingThe pain is exacerbated by any thing and is mitigated by heat, percocettakes the edge off. In the past, the patient has been treated with opioids nucynta,neurontin,and injections these therapies did not help. The patient is currently taking percocet for pain.In the past, the patient has been treated with the followinginterventional pain procedures:1. C2-T1 medial branch blockade diagnostic (0% relief x 0 hrs)2. C2-T1 rfa (0% relief): reports severe post procedural pain 3. cervical epidural steroid injection: reports they did not help Relevant OARRS records were reviewed.Adverse Reaction to Medication: noOpioid Agreement: YesReceiving Disability Income: applying nowLast Date/Time Patient had Opioid Medication: N/APrevious treatments in the past 6 months have included:Formal Physical Therapy: yes, did not helpHome Exercise: noTried NSAIDs: yesCracking by a chiropractor: no?Imaging Studies:MRi cervical 4/4/16Segmentation anomaly C2-3C3 to C6 disc-osteophyte complexfacet arthropathyT5 hemangioma vs. metastasisNM Bone scan (2016)no abnormal uptake at T5EMG (10/2017) [place] Pain MgmtBil C5, C6 motor chronic radic on left and rightBil C6, C7 chronic motor radiculI personally reviewed the above imaging findings, and discussed them withthe patient in detail. --------Is the patient receiving analgesia/pain relief from the currentmedications? (-)Has the current medication improved activities of daily living? (-)Have the current medications been associated with any adverse events? (-)Has the patient displayed any aberrant drug-related behaviors? (-)Illicit drug use? 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 FOR PAIN.OXcarbazepine (TRILEPTAL) 150 mg tablet Take 1 tablet by mouth twicedaily.oxyCODONE-acetam inophen (PERCOCET) 5-325 mg tablet Take 1 tablet by mouthevery 4 hours as needed.gabapentin (NEURONTIN) 100 mg capsule Take 100 mg by mouth twice daily.tapentadol (NUCYNTA) 50 mg tab Take 50 mg by mouth twice daily.No current facility-administered medications for this visit.REVIEW OF SYSTEMS:GENERAL: weight loss (-), malaise(+), fevers (-)HEENT: thrush(-), epistaxis(-)NECK: Negative for neck swelling.RESPIRATORY: Negative for cough, wheezing or shortness of breath ().CARDIOVASCULAR: chest pain(-), leg swelling(-) or palpitations(-)GI: abdominal discomfort(+), blood in stools/melena/change in bowelhabits(-).MUSCULOSKELE YOCASTA: joint pain(+), swelling(-), back pain(+) , musclepain(+).SKIN: Negative for lesions, rash, and itching.PSYCH: sleep disturbance(+), mood disorder(-), recent psychosocialstressors(-).HE MATOLOGY/LYMPHOLOGY: Negative for prolonged bleeding, easy bruising, orswollen nodes (-)NEURO: headaches(+), syncope(-), paralysis(-), seizures(-), tremors (-)All other reviewed and negative other than HPI.Data scribed by above mentioned MA/NURSE SANE/RN/PA, and personally reviewed andverified by physician. Maged Murdock MDOBJECTIVE:VS: BP (!) 105/40 Pulse 62 Resp 16 Wt 68.9 kg (152 lb) BMI26.09 kg/m?PHYSICAL EXAMINATION:GENERAL: Well appearing, in no acute distressPSYCH: Mood and affect is appropriate. Awake, alert, and oriented x 3SKIN: very tanHEENT: Normocephalic, atraumatic. PERRLA.RESP: Respirations are unlaboredCARD: Regular rate. Cap refill <2s. Extremities pink and well perfused atnailbedGI: Abdomen soft and non-tenderMSK: Bilateral upper and lower extremity strength is normal andsymmetric. No atrophy or tone abnormalities are notedCervical: (+)pain to palpation over the cervical paraspinal muscles.Spurling is (+). (+)pain with neck flexion, extension or rotation.Rotation is limited to 10 degrees on right and left. Axial Loading Testnegative, Hawng's sign negative. No obvious deformity or signs oftrauma. Normal cervical lordotic curve and full flexion and extension ofcervical spine.Thoracic: (+) pain to palpation paraspinal muscles. Facet loading is (+)bilaterally. Diffusely tenderLumbar: Straight leg raising in the sitting position is (-) for radicularpain. (-)pain to palpation lumbar paraspinal muscles. Facet loading is(-) bilaterally.(-) pain to palpation over the PSIS, sacroiliac joint provocativemaneuvers are (-) for pain reproduction bilaterally.Extremities: Peripheral joint ROM is full and pain free without obviousinstability or laxity in all four extremities. No deformities, edema, orskin discoloration. Good capillary refill.Gait: Gait is antalgicNEURO: Bilateral upper and lower extremity coordination are intact.Muscle stretch reflexes are physiologic and symmetric. Plantar responseare downgoing. No loss of sensation is noted.ASSESSMENT AND MEDICAL DECISION MAKING:This is a pleasant anxious 47 year old female with neck and UE pain-of note she does have tenderness over the thoracic spine. there was somequestion of T5 hemangioma vs. metastatic lesion in 2016-currently smoking, also during rena-operative period. we dont havepost-op films-applying for disability, likely to hamper rapid recovery and functionalrestoration-faile d tens, mobic, celebrex, lyrica, gabapentin,-takes cymbalta 120mg qd and trileptal for mood swings currently-It doesn't sound like the cervical radiculopathy is a pain generatordespite EMG evidence. I dont think SCS would have any benefit. She hassignificant psychological disease which does need to be further treated,perhaps with CBTDx:Facet syndrome (hcc) (primary encounter diagnosis)Pain in thoracic spineRadiculopathy, cervical regionVitamin d deficiencyLocalized swelling, mass and lump, trunkCervical post-laminectomy syndromeCervical spondylosis without myelopathyCurrent smokerMalaise and fatiguePLAN:1. see epic letters2. check labs for conditions masquerading3. check MRI cervical wo, and mri thoracic wwo to assess post opconditions.4. [facility] chronic pain rehab program if the disability issue gets settled.She can return to work FT as far as I can tell5. see us prn after completion of above6. counseled re: quit smoking7. if pain persists after all this above, she could consider repeat ofdiagnostic blockade above the level of the surgery to see what the paingenerator is, but Im not inclined to do this since she did have severepost procedure pain in [facility] patient care time spent: 60min. Of this, greater than 50% of thiswas spent in the presence of the patient for purposes of education andcounseling regarding the diagnosis and treatment of pain. I answered thepatient's questions regarding this.-We did make the patient aware that any diagnostic testing results arebest discussed in person so we can provide a clear explanation of theirsignificance.-I discussed healthy habits, lifestyle changes and physical activity aswell as disease prevention/maintenance, including the impact oftobacco/illicit drugs on pain and its treatment.-Patient is in agreement with the above and verbalized understanding. Itwill be communicated with the referring or consulting physician above viaelectronic record, fax, or mail.Aishwarya Joyner 2017 Normal [facility] Encounters Encounter Date Encounter Type Care Provider Facility Start: 08-15-2023 ambulatory [facility] Start: 07-18-2023 End: 08-15-[address] [facility] Start: 03-06-2020 End: 03-07-2020 Patient encounter procedure PEREZ LESTER Facility: Start: 04-27-2018 End: 04-28-2018 Patient encounter procedure PROVIDER UNKNOWN Facility:[facility] Start: 02-10-2018 End: 02-13-2018 Patient encounter MAGED MURDOCK [facility] Start: 01-10-2018 End: 01-11-2018 Patient encounter DEVANTE Pereyra CNP [facility] Start: 12-08-2017 End: 12-09-2017 Patient encounter MAGED MURDOCK [facility] Procedures Date Procedure Procedure Detail Performing Clinician Start: 03-06-2020 End: 03-06-2020 Microscopic examination of blood, culture PEREZ LESTER Comment on above: Performed By: #### D RUGRPD #### [facility] [address] [place] [address] Christian Degroot Payers Date Payer Category Payer Unknown [id number] 1970 Unknown [id number] 1970 Unknown [id number] 1970 Unknown [id number] 1970 Unknown [id number] 1959 Unknown [id number] Unknown [id number] Summary Purpose Family History No Family History Records FoundNo Family History Records FoundNo Family History Records FoundNo Family History Records Found Advance Directives No Advanced Directives Records FoundNo Advanced Directives Records FoundNo Advanced Directives Records FoundNo Advanced Directives Records Found Additional Source Comments INFORMATION SOURCE (unrecogn ized section and content) DATE CREATED AUTHOR 04/03/2018 [facility] DATE CREATED AUTHOR AUTHOR'S ORGANIZ ATION 05/03/2018 [facility] DATE CREATED AUTHOR AUTHOR'S ORGANIZ ATION 04/09/2020 [facility] DATE CREATED AUTHOR AUTHOR'S ORGANIZ ATION 08/16/2023 [facility] FOR RECORDS PERTAINING TO PATIENTS WHO ARE OR HAVE BEEN ENROLLED IN A CHEMICAL DEPENDENCY/SUBSTANCEABUSE PROGRAM, SOME INFORMATION MAY BE OMITTED. This clinical summary was aggregated from multiple sources. Caution should be exercised in using it in the provision of clinical care. This summary normalizes information from multiple sources, and as a consequence, information in this document may materially change the coding, format and clinical context of patient data. In addition, data may be omitted in some cases. CLINICAL DECISIONS SHOULD BE BASED ON THE PRIMARY CLINICAL RECORDS. [facility] [employer] [facility]. provides no warranty or guarantee of the accuracy or completeness of information in this document.
--- NOTE | 2023-08-17 11:44 | PM.PRESUREVA ---
History of Present Illness History of Present Illness Chief complaint: lumbar stenosis Narrative: Patient presents for preadmission testing. Patient reports low back pain which is ongoing, she has radicular pain to the left lower extremity, her pain is worse with sitting, standing, walking, going up and down stairs, or lying flat on her back. She does take ibuprofen and has an implanted Dilaudid pump which helps. She denies any recent trauma or injury or new symptoms. Review of Systems ROS Narrative REVIEW OF SYSTEMS: Negative except as stated in HPI, ten or more systems reviewed. Constitutional: No fever , chills, weakness ENT: No sore throat or epistaxis Cardiovascular: No edema, chest pain, palpitations, or activity intolerance Respiratory: No shortness of breath, cough, or wheezing Gastrointestinal: No abdominal pain, constipation, diarrhea, or vomiting Genitourinary: No dysuria or hematuria Psychiatric: No mood changes [facility] Medical History (Updated 08/17/23 @ 11:24 by Cathy Sánchez NP) DDD (degenerative disc disease) Osteopenia ?M85.80 - Other specified disorders of bone density and structure, unspecified site (ICD-10) Back pain ?M54.9 - Dorsalgia, unspecified (ICD-10) Depression ?F32.A - Depression, unspecified (ICD-10) Spinal stenosis ?M48.00 - Spinal stenosis, site unspecified (ICD-10) Neuropathy ?G62.9 - Polyneuropathy, unspecified (ICD-10) Migraine ?G43.909 - Migraine, unspecified, not intractable, without status migrainosus (ICD-10) GERD (gastroesophageal reflux disease) ?K21.9 - Gastro-esophageal reflux disease without esophagitis (ICD-10) Delayed recovery from anesthesia Menopause ?Z78.0 - Asymptomatic menopausal state (ICD-10) Surgical History (Updated 08/17/23 @ 11:42 by Cathy Sánchez NP) S/P insertion of intrathecal pump ?Z98.890 - Other specified postprocedural states (ICD-10) S/P cervical spinal fusion ?Z98.1 - Arthrodesis status (ICD-10) Family History (Updated 08/17/23 @ 11:24 by Cathy Sánchez NP) Other Family history of colon cancer Family history of diabetes mellitus Social History (Updated 08/17/23 @ 11:18 by Cathy Sánchez NP) Within the past year, how often did you have a drink containing alcohol: never Score interpretation: A score less than 3 is consistent with normal alcohol consumption. Smoking status: Current every day smoker What tobacco products do you use: cigarettes Packs per day: 1 Years smoked: 39 Smoking pack-years: 39.00 Non-prescribed substance use: denies use Highest level of school completed/degree received: high school graduate Meds Home Medications and Allergies Home Medications ?Medication ?Instructions ?Recorded ?Confirmed ?Type aspirin 81 mg tablet,delayed 81 mg PO DAILY 08/17/23 08/17/23 History release (Adult Aspirin Regimen) calcium carbonate 600 mg-vitamin 1 tab PO DAILY 08/17/23 08/17/23 History D3 5 mcg (200 unit) tablet (Calcium 600 + D(3)) duloxetine 60 mg capsule,delayed 60 mg PO DAILY 08/17/23 08/17/23 History release (Cymbalta) esomeprazole magnesium 40 mg 40 mg PO DAILY 08/17/23 08/17/23 History capsule,delayed release gabapentin enacarbil 600 mg 600 mg PO QPM 08/17/23 08/17/23 History tablet,extended release ([facility]) hydromorphone 1 mg/mL injection 1 mg Q2H 08/17/23 History solution ibuprofen 800 mg tablet (IBU) 800 mg PO Q12H 08/17/23 08/17/23 History pyridoxine (vitamin B6) 50 mg 50 mg PO DAILY 08/17/23 08/17/23 History capsule rosuvastatin 5 mg tablet (Crestor) 5 mg PO DAILY 08/17/23 08/17/23 History vitamin B complex 1 tab PO DAILY 08/17/23 08/17/23 History Allergies Allergy/AdvReac Type Severity Reaction Status Date / Time morphine AdvReac overdose Verified 08/17/23 11:10 Exam Narrative Exam Narrative: Constitutional: Awake, alert, comfortable, well-appearing, nontoxic, interactive, vital signs as charted Head: Normocephalic, atraumatic Neck: Supple, normal appearance, normal range of motion, no meningeal signs, no lymphadenopathy Respiratory: No respiratory distress, breath sounds clear Cardiovascular: Regular rate and rhythm, strong and regular heart tones Abdomen: Nontender, normal bowel sounds, soft, no CVA tenderness Musculoskeletal: Normal gait, no swelling or edema Skin: No rashes or induration, no lesions, only visible skin inspected Neuro: No neurological deficits, normal sensation Psychiatric: Oriented ?3, normal affect Assessment and Plan Assessment and Plan (1) Spinal stenosis: (2) Back pain: Plan L3?for decompression, L3?for posterior fusion scheduled with Dr. Pineda 09/02/2023.
[2023-08-17 12:33] LABS: INR 0.93; Partial Thromboplastin Time 24.3 sec (22.3-36.2); Prothrombin Time 9.9 sec (9.0-11.6)
[2023-08-17 12:44] LABS: Basophils Absolute Auto 0.1 10^3/uL (0.0-0.1); Basophils Percent Auto 0.4 % (0.2-2.0); Eosinophils Absolute Auto 0.1 10^3/uL (0.0-0.7); Eosinophils Percent Auto 1.1 % (0.9-7.0); Hematocrit 45.5 % (36.0-48.0); Hemoglobin 15.1 g/dL (12.0-16.0); Immature Granulocytes Abs Auto 0.08 10^3/uL (0.00-0.03); Immature Granulocytes Pct Auto 0.6 % (0.0-0.5); Lymphocytes Absolute Auto 3.3 10^3/uL (1.2-3.8); Lymphocytes Percent Auto 25.1 % (20.5-60.0); Mean Corpuscular HGB Conc 33.2 g/dL (29.9-35.2); Mean Corpuscular Hemoglobin 32.5 pg (26.7-34.0); Mean Corpuscular Volume 98.1 fL (81.0-99.0); Mean Platelet Volume 10.2 fL (9.5-13.5); Monocytes Absolute Auto 0.8 10^3/uL (0.3-0.8); Monocytes Percent Auto 5.9 % (1.7-12.0); Neutrophils Absolute Auto 8.7 10^3/uL (1.4-6.5); Neutrophils Percent Auto 66.9 % (43.0-75.0); Platelet Count 315 10^3/uL (150-450); Red Blood Count 4.64 10^6/uL (4.20-5.40)
[2023-08-17 12:52] LABS: Anion Gap 14.9; Carbon Dioxide 27.7 mmol/L (21.0-32.0); Chloride 99 mmol/L (98-107); Estimated GFR (African America >60 (>=60); Estimated GFR (Non-African Ame 58 (>=60); Glucose 132 mg/dL (74-106); Sodium 139 mmol/L (136-145)
[2023-08-17 13:10] LABS: Potassium 2.6 mmol/L (3.5-5.1)
== END 2023-08-17 10:52 | disposition home or self-care (01) ==
LOC: PST 10:53
PROVIDERS: PCP Internal Medicine; Visit Provider Orthopaedic Surgery Orthopaedic Surgery of the Spine
DX: Z01.810 Encounter for preprocedural cardiovascular examination (principal); Z01.812 Encounter for preprocedural laboratory examination; Z01.818 Encounter for other preprocedural examination; M48.02 Spinal stenosis, cervical region
CPT/HCPCS: 71046; 80048; 85025; 85610; 85730; 93005; G0463

== ENCOUNTER 2023-08-18 09:38 | Outpatient (OUT) | payer OTHER, SELFPAY ==
--- OUTSIDE RECORDS SUMMARY | 2023-08-18 09:48 | XMS_ITS | CCD ---
Author Organization [facility] Care Team Providers Care Rn Orthopaedics Name Role Phone MAGED MURDOCK Unavailable Unavailable LINDSEY AGUILAR (PA) Unavailable Unavail able DEVANTE YAN (FILM EDITOR) Unavailable UnavailULYSSES Phillips JR Unavailable Unavail able MAGED MURDOCK Unavailable Unavailable LINDSEY AGUILAR (PA) Unavailable Unavail able UNKNOWN, PROVIDER Unavailable Unavailable UNKNOWN, PROVIDER Unavailable Unavailable ULYSSES RICHARDSON Unavailable Unavailable ULYSSES RICHARDSON Unavailable Unavailable PEREZ LESTER Admitting Unavailable ULYSSES RICHARDSON Primary Care Unavailable AZAR MAN Consulting Unavailable PEREZ LESTER Attending Unavailable PEREZ LESTER Consulting Unavailable MAT CASEY Consulting Unavailable Fela Smiht Consulting Unavailable WALI BUSTILLOS Consulting Unavailable SHAIKH [...] [Catalytic activity/Vol] 915 U/L Critically high 30-135 [facility] Comment on above: Result Comment: Test repeated. Critical value verified. Performed By: #### D RUGRPD #### [facility] [address] [place], [place] [address] Christian Degroot CK.MB [Mass/Vol] 12.82 ng/mL Critically high <=2.37 [facility] Comment on above: Result Comment: Test repeated. Critical value verified. Performed By: #### D RUGRPD #### [facility] [address] [place], [place] [address] Christian Mikayla INR Coag (Bld) [Relative time] SEE BELOW Normal [facility] Comment on above: Result Comment: <0.0 34 ng/ml NEGATIVE 0.034-0.119 INDETERMINATE 0.120 AMI CUT OFF Performed By: #### D RUGRPD #### [facility] [address] [place] [address] Christian Mikayla ÁNGEL 96.0 ng/mL Critically high <=61.5 [facility] Comment on above: Performed By: #### D RUGRPD #### [facility] [address] [place] [address] Christian Mikayla TROP 0.028 ng/mL Normal <=0.034 [facility] Comment on above: Performed By: #### D RUGRPD #### [facility] [address] [place] [address] Christian Mikayla CK [Catalytic activity/Vol] 1282 U/L Critically high 30-135 [facility] Comment on above: Result Comment: Test repeated. Critical value verified. Performed By: #### T ROP, CMP #### [facility] [address] [place] [address] Christian Mikayla CK.MB [Mass/Vol] 24.63 ng/mL Critically high <=2.37 [facility] Comment on above: Result Comment: Test repeated. Critical value verified. Performed By: #### T ROP, CMP #### [facility] [address] [place] [address] Christian Mikayla INR Coag (Bld) [Relative time] SEE BELOW Normal [facility] Comment on above: Result Comment: <0.0 34 ng/ml NEGATIVE 0.034-0.119 INDETERMINATE 0.120 AMI CUT OFF Performed By: #### T ROP, CMP #### [facility] [address] [place], [place] [id number] Christian Mikayla ÁNGEL 235.0 ng/mL Critically high <=61.5 [facility] Comment on above: Performed By: #### T ROP, CMP #### [facility] [address] [place] [address] Christian Mikayla TROP 0.033 ng/mL Normal <=0.034 [facility] Comment on above: Performed By: #### T ROP, CMP #### [facility] [address] [place] [address] Christian Mikayla CBC AUTO DIFFon 03-07-2020 Basophils (Bld) [#/Vol] 0.0 103/ul Normal 0.0-0.1 [facility] Comment on above: Performed By: #### C BC #### [facility] [address] [place] [address] Christian Mikayla Basophils/100 WBC (Bld) 0.1 % Critically low 0.2-2.0 [facility] Comment on above: Performed By: #### C BC #### [facility] [address] [place] [address] Christian Mikayla Eosinophils (Bld) [#/Vol] 0.0 103/ul Normal 0.0-0.7 [facility] Comment on above: Performed By: #### C BC #### [facility] [address] [place] [address] Christian Mikayla Eosinophils/100 WBC (Bld) 0.0 % Critically low 0.9-7.0 [facility] Comment on above: Performed By: #### C BC #### [facility] [address] [place] [address] Christian Mikayla Erythrocyte distribution width (RBC) [Ratio] 13.4 % Normal 11.0-15.0 [facility] Comment on above: Performed By: #### C BC #### [facility] [address] [place] [address] Christian Mikayla Hematocrit (Bld) [Volume fraction] 35.4 % Critically low 36.0-48.0 [facility] Comment on above: Performed By: #### C BC #### [facility] [address] [place] [address] Christian Mikayla Hemoglobin (Bld) [Mass/Vol] 11.4 g/dL Critically low 12.0-16.0 [facility] Comment on above: Performed By: #### C BC #### [facility] [address] [place] [address] Christian Mikayla IG # 0.07 10e3/ul Critically high 0.00-0.03 [facility] Comment on above: Performed By: #### C BC #### [facility] [address] [place] [id number] Christian Mikayla IG % 0.4 % Normal 0.0-0.5 [facility] Comment on above: Performed By: #### C BC #### [facility] [address] [place] [address] Christian Mikayla Lymphocytes (Bld) [#/Vol] 1.1 103/ul Critically low 1.2-3.8 [facility] Comment on above: Performed By: #### C BC #### [facility] [address] [place] [address] Christian Mikayla Lymphocytes/100 WBC (Bld) 6.9 % Critically low 20.5-60.0 [facility] Comment on above: Performed By: #### C BC #### [facility] [address] [place] [address] Christian Mikayla MANUAL DIFF REQ NO Normal [facility] Comment on above: Performed By: #### C BC #### [facility] [address] [place], [place] [phone] Christian Mikayla MCH (RBC) [Entitic mass] 32.7 pg Normal 26.7-34.0 [facility] Comment on above: Performed By: #### C BC #### [facility] [address] [place] [address] Christian Mikayla MCHC (RBC) [Mass/Vol] 32.2 g/dL Normal 29.9-35.2 [facility] Comment on above: Performed By: #### C BC #### [facility] [address] [place], [place] [phone] Christian Mikayla MCV (RBC) [Entitic vol] 101.4 fL Critically high 81.0-99.0 [facility] Comment on above: Performed By: #### C BC #### [facility] [address] [place], [place] [phone] Christian Mikayla Monocytes (Bld) [#/Vol] 1.4 103/ul Critically high 0.3-0.8 [facility] Comment on above: Performed By: #### C BC #### [facility] [address] [place] [address] Christian Mikayla Monocytes/100 WBC (Bld) 8.6 % Normal 1.7-12.0 [facility] Comment on above: Performed By: #### C BC #### [facility] [address] [place], [place] [phone] Christian Mikayla Neutrophils (Bld) [#/Vol] 13.4 103/ul Critically high 1.4-6.5 [facility] Comment on above: Performed By: #### C BC #### [facility] [address] [place], [place] [phone] Christian Mikayla Neutrophils/100 WBC (Bld) 84.0 % Critically high 43.0-75.0 [facility] Comment on above: Performed By: #### C BC #### [facility] [address] [place], [place] [phone] Christian Mikayla Platelet mean volume (Bld) [Entitic vol] 9.5 fL Normal 9.5-13.5 [facility] Comment on above: Performed By: #### C BC #### [facility] [address] [place] [address] Christian Mikayla Platelets (Bld) [#/Vol] 207 103/ul Normal 150-450 [facility] Comment on above: Performed By: #### C BC #### [facility] [address] [place] [address] Christian Mikayla RBC (Bld) [#/Vol] 3.49 106/ul Critically low 4.20-5.40 [facility] Comment on above: Performed By: #### C BC #### [facility] [address] [place], [place] [phone] Christian Mikayla WBC (Bld) [#/Vol] 16.0 103/ul Critically high 4.0-11.0 [facility] Comment on above: Performed By: #### C BC #### [facility] [address] [place], [place] [address] Christian Mikayla PROF CHEM 8 (BAS METB)on Anion gap [Moles/Vol] 11.2 mmol/L Normal [facility] Comment on above: Performed By: #### D RUGRPD #### [facility] [address] [place] [phone] Christian Mikayla Calcium [Mass/Vol] 8.3 mg/dL Critically low 8.4-10.2 [facility] Comment on above: Performed By: #### D RUGRPD #### [facility] [address] [place] [address] Christian Mikayla Chloride [Moles/Vol] 106 mmol/L Normal 98-107 [facility] Comment on above: Performed By: #### D RUGRPD #### [facility] [address] [place] [address] Christian Mikayla CO2 [Moles/Vol] 24.5 mmol/L Normal 22.0-30.0 [facility] Comment on above: Performed By: #### D RUGRPD #### [facility] [address] [place], [place] [phone] Christian Mikayla Creatinine [Mass/Vol] 0.53 mg/dL Normal 0.52-1.04 [facility] Comment on above: Performed By: #### D RUGRPD #### [facility] [address] [place], [place] [phone] Christian Mikayla EGFR-AF ALGERIAN >60 Normal >=60 [facility] Comment on above: Performed By: #### D RUGRPD #### [facility] [address] [place] [address] Chritsian Mikayla EGFR-NON AF ALGERIAN >60 Normal >=60 [facility] Comment on above: Performed By: #### D RUGRPD #### [facility] [address] [place] [address] Christian Mikayla Glucose [Mass/Vol] 113 mg/dL Critically high 74-106 [facility] Comment on above: Performed By: #### D RUGRPD #### [facility] [address] [place] [place] [address] Christian Mikayla Potassium [Moles/Vol] 3.7 mmol/L Normal 3.4-5.0 [facility] Comment on above: Performed By: #### D RUGRPD #### [facility] [address] [place], [place] [phone] Christian Mikayla Sodium [Moles/Vol] 138 mmol/L Normal 137-145 [facility] Comment on above: Performed By: #### D RUGRPD #### [facility] [address] [place] [address] Christian Mikayla Urea nitrogen [Mass/Vol] 12.0 mg/dL Normal 7.0-17.0 [facility] Comment on above: Performed By: #### D JUNED #### [facility] [address] [place] [address] Christian Mikayla Urea nitrogen/Creatinin e [Mass ratio] 22.6 mg/mg Normal [facility] Comment on above: Performed By: #### D RUGLANDYD #### [facility] [address] [place], [place] [phone] Christian Mikayla CBC W MANUAL DIFFon 03-06-20 20 ATYPICAL LYMPH # Normal [facility] Comment on above: Performed By: #### D JUNED #### [facility] [address] [place] [address] Christian Mikayla ATYPICAL LYMPH % Normal [facility] Comment on above: Performed By: #### D RUGRPD #### [facility] [address] [place], [place] [phone] Christian Mikayla BAND # Normal 0.0-0.3 [facility] Comment on above: Performed By: #### D RUGRPD #### [facility] [address] [place], [place] [phone] Christian Mikayla BAND % Normal 0-5 [facility] Comment on above: Performed By: #### D RUGRPD #### [facility] [address] [place], [place] [phone] Christian Mikayla BASOM # 0.00 103/ul Normal 0.00-0.10 [facility] Comment on above: Performed By: #### D RUGRPD #### [facility] [address] [place] [phone] Christian Mikayla BASOM % 0.0 % Critically low 0.2-2.0 [facility] Comment on above: Performed By: #### D RUGRPD #### [facility] [address] [place] [address] Christian Mikayla BLAST # Normal [facility] Comment on above: Performed By: #### D RUGRPD #### [facility] [address] [place] [address] Christian Mikayla BLAST % Normal [facility] Comment on above: Performed By: #### D RUGRPD #### [facility] [address] [place] [address] Christian Mikayla CORRECTED WBC Normal 4.0-11.0 [facility] Comment on above: Performed By: #### D RUGJONAS #### [facility] [address] [place] [address] Christian Mikayla Eosinophils (Bld) [#/Vol] 0.00 103/ul Normal 0.00-0.70 [facility] Comment on above: Performed By: #### D RUGRPD #### [facility] [address] [place] [address] Christian Mikayla Eosinophils/100 WBC (Bld) 0.0 % Critically low 0.9-7.0 [facility] Comment on above: Performed By: #### D RUGRPD #### [facility] [address] [place] [address] Christian Mikayla Erythrocyte distribution width (RBC) [Ratio] 13.2 % Normal 11.0-15.0 [facility] Comment on above: Performed By: #### D RUGRPD #### [facility] [address] [place] [address] Christian Mikayla Hematocrit (Bld) [Volume fraction] 44.1 % Normal 36.0-48.0 [facility] Comment on above: Performed By: #### D RUGRPD #### [facility] [address] [place], [place] [phone] Christian Mikayla Hemoglobin (Bld) [Mass/Vol] 13.9 g/dl Normal 12.0-16.0 [facility] Comment on above: Performed By: #### D MARIAMARPD #### [facility] [address] [place] [phone] Christian Mikayla LYMPHM # 0.26 103/ul Critically low 1.20-3.80 [facility] Comment on above: Performed By: #### D JUNED #### [facility] [address] [place] [phone] Christian Mikayla LYMPHM% 1.0 % Critically low 20.5-60.0 [facility] [place] [facility] Comment on above: Performed By: #### D COLT #### [facility] [address] [place], [place] [phone] Christian Mikayla MCH (RBC) [Entitic mass] 32.6 pg Normal 26.7-34.0 [facility] Comment on above: Performed By: #### D COLT #### [facility] [address] [place], [place] [phone] Christian Mikayla MCHC (RBC) [Mass/Vol] 31.5 g/dl Normal 29.9-35.2 [facility] Comment on above: Performed By: #### D RUGRPD #### [facility] [address] [place], [place] [phone] Christian Mikayla MCV (RBC) [Entitic vol] 103.3 fL Critically high 81.0-99.0 [facility] Comment on above: Performed By: #### D JUNED #### [facility] [address] [place] [address] Christian Mikayla METAMYELOCYTE # Normal [facility] Comment on above: Performed By: #### D RUGRPD #### [facility] [address] [place], [place] [phone] Christian Mikayla METAMYELOCYTE % Normal [facility] Comment on above: Performed By: #### D COLT #### [facility] [address] [place], [place] [phone] Christian Mikayla MONOM# 1.32 103/ul Critically high 0.30-0.80 [facility] Comment on above: Performed By: #### D RUGRPD #### [facility] [address] [place], [place] [address] Christianvíctor Degroot MONOM% 5.0 % Normal 1.7-12.0 [facility] Comment on above: Performed By: #### D RUGRPD #### [facility] [address] [place] [phone] Christian Mikayla MYELOCYTE # Normal [facility] Comment on above: Performed By: #### D RUGRPD #### [facility] [address] [place] [address] Christian Mikayla MYELOCYTE % Normal [facility] Comment on above: Performed By: #### D RUGRPD #### [facility] [address] [place], [place] [phone] Christian Mikayla NRBC Normal [facility] Comment on above: Performed By: #### D RUGRPD #### [facility] [address] [place] [address] Christianvíctor Santanaen Platelet mean volume (Bld) [Entitic vol] 9.6 fL Normal 9.5-13.5 [facility] Comment on above: Performed By: #### D RUGRPD #### [facility] [address] [place] [address] Christian Mikayla Platelets (Bld) [#/Vol] 268 103/ul Normal 150-450 [facility] Comment on above: Performed By: #### D RUGRPD #### [facility] [address] [place] [address] Christian Mikayla RBC (Bld) [#/Vol] 4.27 106/ul Normal 4.20-5.40 [facility] Comment on above: Performed By: #### D RUGRPD #### [facility] [address] [place] [address] Christian Mikayla SEG # 24.82 103/ul Critically high 1.40-6.50 [facility] Comment on above: Performed By: #### D RUGRPD #### [facility] [address] [place] [address] Christian Degroot Segmented neutrophils/100 WBC (Bld) 94.0 % Critically high 43.0-75.0 [facility] Comment on above: Performed By: #### D RUGRPD #### [facility] [address] [place] [address] Christian Degroot WBC (Bld) [#/Vol] 26.4 103/ul Critically high 4.0-11.0 [facility] Comment on above: Performed By: #### D RUGRPD #### [facility] [address] [place] [address] Christian Degroot CPKon 03-06-2020 CK [Catalytic activity/Vol] 464 U/L Critically high 30-135 [facility] Comment on above: Result Comment: test repeated critical value verified Performed By: #### C K #### [facility] [address] [place], [place] [phone] Christian Degroot CT ABD/PELV W CONon 03-06-20 [...] MAT CASEY Date: 2020-03-06 18:45 Normal [facility] CT STROKE HEAD WOon 03-06-[address] [...] MAT CASEY Date: 2020-03-06 16:31 Normal [facility] DRUG SCREEN RAPID (URINE)on 03-06-2020 AMP Positive Normal NEGATIVE [facility] Comment on above: Performed By: #### D RUGRPD #### [facility] [address] [place] [address] Christian Mikayla BAR Negative Normal NEGATIVE [facility] Comment on above: Performed By: #### D RUGRPD #### [facility] [address] [place] [address] Christian Mikayla BUP Negative Normal NEGATIVE [facility] Comment on above: Performed By: #### D RUGRPD #### [facility] [address] [place] [address] Christian Mikayla BZO Negative Normal NEGATIVE [facility] Comment on above: Performed By: #### D RUGRPD #### [facility] [address] [place] [address] Christian Mikayla RITCHIE Negative Normal NEGATIVE [facility] Comment on above: Performed By: #### D RUGRPD #### [facility] [address] [place] [address] Christian Mikayla CUT-OFFS SEE BELOW Normal [facility] Comment on above: Result Comment: AMP (Amphetamine): [...] ng/mL Performed By: #### D RUGRPD #### [facility] [address] [place] [address] DRUG CUT HEADER DRUG CLASS TEST SYST EM CUT-OFF CONCENTRATIONS ARE FOLLOWS: Normal [facility] Comment on above: Performed By: #### D RUGRPD #### [facility] [address] [place] [address] Christian Mikayla mAMP Negative Normal NEGATIVE [facility] Comment on above: Performed By: #### D RUGRPD #### [facility] [address] [place] [address] Christian Mikayla MTD Negative Normal NEGATIVE [facility] Comment on above: Performed By: #### D RUGRPD #### [facility] [address] [place] [address] Christian Mikayla OPI Positive Normal NEGATIVE [facility] Comment on above: Performed By: #### D RUGRPD #### [facility] [address] [place] [address] Christian Mikayla OXY Negative Normal NEGATIVE [facility] Comment on above: Performed By: #### D RUGRPD #### [facility] [address] [place] [address] Christian Mikayla PCP Negative Normal NEGATIVE [facility] Comment on above: Performed By: #### D RUGRPD #### [facility] [address] [place] [address] Christian Mikayla PPX Negative Normal NEGATIVE [facility] Comment on above: Performed By: #### D RUGRPD #### [facility] [address] [place] [address] Christian Mikayla TCA Negative Normal NEGATIVE [facility] Comment on above: Performed By: #### D RUGRPD #### [facility] [address] [place] [address] Christian Mikayla THC Negative Normal NEGATIVE [facility] Comment on above: Performed By: #### D RUGRPD #### [facility] [address] [place] [address] Christian Mikayla ER URINE PROFILEon 0 Bilirubin [Mass/Vol] Negative Normal NEGATIVE [facility] Comment on above: Performed By: #### E RUR #### [facility] [address] [place] [address] Christian Mikayla BLOOD Negative Normal NEGATIVE [facility] Comment on above: Performed By: #### E RUR #### [facility] [address] [place] [address] Christian Mikayla Clarity (U) CLEAR Normal [facility] Comment on above: Performed By: #### E RUR #### [facility] [address] [place] [address] Christian Mikayla Color (U) YELLOW Normal YELLOW [facility] Comment on above: Performed By: #### E RUR #### [facility] [address] [place], [place] [phone] Christian Mikayla ERUAHD A micrscopic examina tion will be performed if indicated. Normal [facility] Comment on above: Performed By: #### E RUR #### [facility] [address] [place] [address] Christian Mikayla Glucose [Mass/Vol] Negative Normal NEGATIVE [facility] Comment on above: Performed By: #### E RUR #### [facility] [address] [place], [place] [phone] Christian Mikayla Ketones Ql (U) Negative Normal NEGATIVE [facility] [place] [facility] Comment on above: Performed By: #### E RUR #### [facility] [address] [place], [place] [phone] Christian Mikayla Nitrite Ql (U) Negative Normal NEGATIVE [facility] [place] [facility] Comment on above: Performed By: #### E RUR #### [facility] [address] [place] [address] Christian Mikayla pH (Bld) 6.0 Normal 5-9 [facility] Comment on above: Performed By: #### E RUR #### [facility] [address] [place] [address] Christian Mikayla Protein (U) [Mass/Vol] TRACE Normal [facility] Comment on above: Performed By: #### E RUR #### [facility] [address] [place] [address] Christian Mikayla SPEC GRAVITY >=1.030 Normal 1.005-<=1.02 5 [facility] Comment on above: Performed By: #### E RUR #### [facility] [address] [place] [address] Christianvíctor Degroot UR MICRO IND NOT INDICATED Normal [facility] Comment on above: Performed By: #### E RUR #### [facility] [address] [place] [address] Christianvíctor Degroot Urobilinogen Qn (U) 0.2 EU/dl Normal [facility] Comment on above: Performed By: #### E RUR #### [facility] [address] [place], [place] [id number] Christian Mikayla WBC (Bld) [#/Vol] Negative Normal NEGATIVE [facility] Comment on above: Performed By: #### E RUR #### [facility] [address] [place], [place] [id number] Christian Mikayla ETHANOL (BLD ALC)on 03-06-20 20 Ethanol [Mass/Vol] NOTE: 80 mg/dl is th e legal limit for a blood alcohol level Normal [facility] Comment on above: Performed By: #### E TH #### [facility] [address] [place], [place] [id number] Christian Degroot Ethanol [Mass/Vol] mg/dL Normal [facility] Comment on above: Performed By: #### E TH #### [facility] [address] [place] [address] Christian Degroot HEMOGRAM AND PLATELon 2019 WBC (Bld) [#/Vol] 23.5 103/ul Critically high 4.0-11.0 [facility] Comment on above: Performed By: #### H H #### [facility] [address] [place] [address] Christian Degroot LACTATE/LACTIC ACIDon 2019 Lactate [Moles/Vol] 0.7 mmol/L Normal 0.7-2.0 [facility] Comment on above: Performed By: #### L ACT #### [facility] [address] [place] [address] Christian Degroot MYOGLOBINon 03-06-2020 Myoglobin [Mass/Vol] 918.0 ng/mL Critically high <=61.5 [facility] Comment on above: Result Comment: test repeated critical value verified Performed By: #### M YO #### [facility] [address] [place] [address] Christian Degroot POINT OF CARE GLUCOSEon 02-14 Glucose [Mass/Vol] 117 mg/dL Critically high 74-106 [facility] Comment on above: Performed By: #### D RUGRPD #### [facility] [address] [place] [address] Christian Degroot PROF 14(COMP METB)on 020 Albumin [Mass/Vol] 3.3 g/dL Critically low 3.5-5.0 [facility] Comment on above: Performed By: #### T ROP, CMP #### [facility] [address] [place], [place] [phone] Christian Degroot Albumin/Globulin [Mass ratio] 1.1 {ratio} Normal [facility] Comment on above: Performed By: #### T ROP, CMP #### [facility] [address] [id number] Christian Mikayla ALP [Catalytic activity/Vol] 69 U/L Normal 38-126 [facility] Comment on above: Performed By: #### T ROP, CMP #### [facility] [address] [phone] Christian Mikayla ALT [Catalytic activity/Vol] 30 U/L Normal 9-52 [facility] Comment on above: Performed By: #### T ROP, CMP #### [facility] [address] [phone] Christian Mikayla Anion gap [Moles/Vol] 16.8 mmol/L Normal [facility] Comment on above: Performed By: #### T ROP, CMP #### [facility] [address] [address] Christian Mikayla AST [Catalytic activity/Vol] 29 U/L Normal 14-36 [facility] Comment on above: Performed By: #### T ROP, CMP #### [facility] [address] [phone] Christian Mikayla Bilirubin Ql (U) 0.4 mg/dL Normal 0.2-1.3 [facility] Comment on above: Performed By: #### T ROP, CMP #### [facility] [address] [id number] Christian Mikayla Calcium [Mass/Vol] 8.7 mg/dL Normal 8.4-10.2 [facility] Comment on above: Performed By: #### T ROP, CMP #### [facility] [address] [phone] Christian Mikayla Chloride [Moles/Vol] 104 mmol/L Normal 98-107 [facility] Comment on above: Performed By: #### T ROP, CMP #### [facility] [address] [phone] Christian Mikayla CO2 [Moles/Vol] 22.6 mmol/L Normal 22.0-30.0 [facility] Comment on above: Performed By: #### T ROP, CMP #### [facility] [address] [phone] Christian Mikayla Creatinine [Mass/Vol] 0.92 mg/dL Normal 0.52-1.04 [facility] Comment on above: Performed By: #### T ROP, CMP #### [facility] [address] [id number] Christian Mikayla EGFR-AF ALGERIAN >60 Normal >=60 [facility] Comment on above: Performed By: #### T ROP, CMP #### [facility] [address] [address] Christian Mikayla EGFR-NON AF ALGERIAN >60 Normal >=60 [facility] Comment on above: Performed By: #### T ROP, CMP #### [facility] [address] [address] Christian Mikayla Globulin (S) [Mass/Vol] 3.0 g/dL Normal [facility] Comment on above: Performed By: #### T ROP, CMP #### [facility] [address] [address] Christian Mikayla Glucose [Mass/Vol] 130 mg/dL Critically high 74-106 [facility] Comment on above: Performed By: #### T ROP, CMP #### [facility] [address] [address] Christian Mikayla Potassium [Moles/Vol] 4.4 mmol/L Normal 3.4-5.0 [facility] Comment on above: Performed By: #### T ROP, CMP #### [facility] [address] [address] Christian Mikayla Protein [Mass/Vol] 6.3 g/dL Normal 6.1-8.2 [facility] Comment on above: Performed By: #### T ROP, CMP #### [facility] [address] [address] Christian Mikayla Sodium [Moles/Vol] 139 mmol/L Normal 137-145 [facility] Comment on above: Performed By: #### T ROP, CMP #### [facility] [address] [place] [address] Christian Mikayla Urea nitrogen [Mass/Vol] 18.0 mg/dL Critically high 7.0-17.0 [facility] Comment on above: Performed By: #### T BLAYNE, CMP #### [facility] [address] [place] [address] Christian Mikayla Urea nitrogen/Creatinin e [Mass ratio] 19.6 mg/mg Normal [facility] Comment on above: Performed By: #### T BLAYNE, CMP #### [facility] [address] [place] [address] Christian Mikayla RESPIRATORY PANEL PLUSon Adenovirus NOT DETECTED Normal NOT DETECTED [facility] [place] [facility] Comment on above: Performed By: #### D RUGRPD #### [facility] [address] [place] [address] Christian Mikayla B. Parapertusis NOT DETECTED Normal NOT DETECTED The [facility] Comment on above: Performed By: #### D RUGRPD #### [facility] [address] [place] [address] Christian Mikayla B. Pertussis NOT DETECTED Normal NOT DETECTED [facility] Comment on above: Performed By: #### D RUGRPD #### [facility] [address] [place] [address] Christian Mikayla Chlamydia Pneumoniae NOT DETECTED Normal NOT DETECTED [facility] Comment on above: Performed By: #### D RUGRPD #### [facility] [address] [place] [address] Christian Mikayla Coronavirus 229E NOT DETECTED Normal NOT DETECTED [facility] Comment on above: Performed By: #### D RUGRPD #### [facility] [address] [place] [address] Christian Mikayla Coronavirus HKU1 NOT DETECTED Normal NOT DETECTED [facility] Comment on above: Performed By: #### D RUGRPD #### [facility] [address] [place] [address] Christian Mikayla Coronavirus NL63 NOT DETECTED Normal NOT DETECTED [facility] Comment on above: Performed By: #### D RUGRPD #### [facility] [address] [address] Christian Mikayla Coronavirus OC43 NOT DETECTED Normal NOT DETECTED [facility] Comment on above: Performed By: #### D RUGRPD #### [facility] [address] [address] Christian Mikayla Influenza A H1 2009 NOT DETECTED Normal NOT DETECTED [facility] Comment on above: Performed By: #### D RUGRPD #### [facility] [address] [address] Christian Mikayla Influenza B NOT DETECTED Normal NOT DETECTED The [facility] Comment on above: Performed By: #### D RUGRPD #### [facility] [address] [place] [address] Christian Mikayla Metapneumovirus NOT DETECTED Normal NOT DETECTED The [facility] Comment on above: Performed By: #### D RUGRPD #### [facility] [address] [place] [address] Christian Mikayla Mycoplas. Pneumoniae NOT DETECTED Normal NOT DETECTED [facility] Comment on above: Performed By: #### D RUGRPD #### [facility] [address] [address] Christian Mikayla Parainfluenza 1 NOT DETECTED Normal NOT DETECTED [facility] Comment on above: Performed By: #### D RUGRPD #### [facility] [address] [address] Christian Mikayla Parainfluenza 2 NOT DETECTED Normal NOT DETECTED [facility] Comment on above: Performed By: #### D RUGRPD #### [facility] [address] [place] [address] Christian Mikayla Parainfluenza 3 NOT DETECTED Normal NOT DETECTED [facility] Comment on above: Performed By: #### D RUGRPD #### [facility] [address] [address] Christian Mikayla Parainfluenza 4 NOT DETECTED Normal NOT DETECTED [facility] Comment on above: Performed By: #### D RUGRPD #### [facility] [address] [place] [address] Christian Degroot Rhino/Enterovirus NOT DETECTED Normal NOT DETECTED [facility] Comment on above: Performed By: #### D RUGRPD #### [facility] [address] [place] [address] Christian Degroot RP2 Header 1 RESPIRATORY PANEL: VIRUSES Normal [facility] Comment on above: Performed By: #### D RUGRPD #### [facility] [address] [place] [address] Christian Degroot RP2 Header 2 RESPIRATORY PANEL: BACTERIA Normal [facility] Comment on above: Performed By: #### D RUGRPD #### [facility] [address] [place] [address] Christian Degroot RP2 Header 4 EUA SEE BELOW Normal [facility] Comment on above: Result Comment: This test is not yet approved or cleared by the [place] FDA. When there are no FDA-approved or cleared tests available, and other criteria are met, FDA can make tests available under an emergency access mechanism called an Emergency Use Authorization (EUA). The EUA for this test is supported by the [employer] Instructor of Health and Human Service?s (HHS?s) declaration [...] used). Performed By: #### D RUGRPD #### [facility] [address] [place] [address] Christian Degroot RSV NOT DETECTED Normal NOT DETECTED [facility] Comment on above: Performed By: #### D RUGRPD #### [facility] [address] [place] [address] Christian Degroot SARS-CoV-2: COVID-19 NOT DETECTED Normal NOT DETECTED [facility] Comment on above: Performed By: #### D RUGRPD #### [facility] [address] [place] [address] Christian Degroot TROPONIN - Ion 10-22-2020 Troponin I.cardiac [Mass/Vol] 0.016 ng/mL Normal <=0.034 [facility] Comment on above: Performed By: #### T BLAYNE CMP #### [facility] [address] [place], [place] [address] Christian Degroot Troponin I.cardiac [Mass/Vol] SEE BELOW Normal [facility] Comment on above: Result Comment: <0.0 34 ng/ml NEGATIVE 0.034-0.119 INDETERMINATE 0.120 AMI CUT OFF Performed By: #### T BLAYNE CMP #### [facility] [address] [place], [place] [address] Christian Degroot XR CHEST 1 Von 03-06-2020 [...] FELA SMITH Date: 2020-03-06 15:07 Normal [facility] CT 3D CERVICAL SPINE WITH CO NTRASTon 04-27-2018 CT 3D CERVICAL SPINE WITH CONTRAST [facility] [address] [place] [address] Patient Name: RADHA DUNCAN : 1970Sex: FAge: Race: WhiteMRN: [id number]. Location: 85Patient Status: OVisit #: [id number] Date: 04/10/2018 12:10:00 PMCompleted Date: 04/27/2018 10:58 AMRequesting Provider: MARY DIAL Attending Provider: MARY DIAL Report Copy To: ULYSSES RICHARDSON Signs & Symptoms: M54.12 Radiculopathy, cervical region [id number]: Nyla MYELOGRAM AUTH [id number] VALID 04/11/18-07/12/18 PER [employer] [facility] [address] JYComments: Exam: CT 3D CERVICAL SPINE WITH CONTRASTAccession #: [id number] CT 3D CERVICAL SPINE WITH CONTRAST 04/27/2018 [...] findings. Electronically signed by:Oli Sanders. Transcribed by: [email or web address], User Resident: MANDEEP YOUNGElectronically Signed by: OLI SANDERS @ 04/27/2018 01:02 PMI personally read this/these film(s) with this resident Normal The [facility] CT 3D LUMBAR SPINE W CONTRAS Ton 04-27-2018 CT 3D LUMBAR SPINE W CONTRAST [facility] [address] [id number] Patient Name: RADHA DUNCAN : 1970Sex: FAge: Race: WhiteMRN: [id number]. Location: 85Patient Status: DVisit #: [id number] Date: 04/10/2018 12:10:00 PMCompleted Date: 04/27/2018 10:59 AMRequesting Provider: MARY DIAL Attending Provider: MARY DIAL Report Copy To: ULYSSES RICHARDSON Signs & Symptoms: M54.16 Radiculopathy, lumbar region [id number]: Nyla MYELOGRAM AUTH [id number] VALID 04/11/18-07/12/18 PER [facility] [address] JYComments: Exam: CT 3D LUMBAR SPINE W CONTRASTAccession #: [id number] CT 3D LUMBAR SPINE W CONTRAST 04/27/2018 [...] findings. Electronically signed by:Martínez Skelton. Transcribed by: [email or web address], User Resident: MANDEEP YOUNGElectronically Signed by: MARTÍNEZ SKELTON @ 04/27/2018 05:36 PMI personally read this/these film(s) with this resident Normal [facility] ENTIRE MYELOGRAMon 8 ENTIRE MYELOGRAM [facility] [address] [place] [address] Patient Name: RADHA DUNCAN : 1970Sex: FAge: Race: WhiteMRN: [id number]. Location: 85Patient Status: OVisit #: [id number] Date: 04/10/2018 12:10:00 PMCompleted Date: 04/27/2018 10:19 AMRequesting Provider: MARY DIAL Attending Provider: MARY DIAL Report Copy To: ULYSSES RICHARDSON Signs & Symptoms: M54.16 Radiculopathy, lumbar region [id number]: [place] MYELOGRAMComments: , , , Ordering Provider - MARY DIAL MD , Exam: ENTIRE MYELOGRAMAccession #: [id number] ENTIRE MYELOGRAM 04/27/2018 10:19 AM EST SIGNS [...] and risks are acceptable. Consent was obtained. Timeout:[place] protocol timeout verification performed. PROCEDURE:Estimated blood loss:None [...] findings. Electronically signed by:Oli Sanders. Transcribed by: [email or web address], User Resident: MANDEEP YOUNGElectronically Signed by: OLI SANDERS @ 04/27/2018 01:01 PMI personally read this/these film(s) with this resident Normal [facility] Comment on above: Order Comment: , , = ========= , Ordering Provider - MARY DIAL MD , Ta 02-20-2018 SONIA Telephone (ETELVINA) -------RADHA DUNCAN ([id number]) 1970 [facility] Time Provider Xlgaufkhnx14/8/18 MAGED MURDOCK During your visit today, we recorded the following information about you:Sumanthrolly [facility] Patient Service Spec 02/20/2018 8:05 AM SignedPt [...] from his care.Please call her back at [phone].Elysia Garza Psr 02/22/2018 8:37 AM SignedPlease fax letter over to [phone].Clint Park LPN 02/27/2018 10:18 AM SignedSpoke with patient and she wanted to know if knew of a physician inthe area that she lived that could do the ketamine infusion.I explained most likely he would not have this information she would need tocheck around in her area with other pain providers to see if they do theinfusions. She said she found one in the [place] area but they want money upfront and [...] Status:Closed by MAGED MURDOCK MD on 02/28/18 [facility] CNOVon 02-10-2018 CNOV Office Visit (PAINCC) -------RADHA DUNCAN ([id number]) 1970 FDate Time Provider Department02/10/18 10:45 AM MAGED MURDOCK [facility] During your visit today, we recorded the following information about you: Pulse Respiration Blood pressure Weight 80/minute 16/minute 132/47 69.9 kgJosenjourdan Murdock MD 02/11/2018 1:30 PM AddendumSUBJECTIVE:The patient presents to [facility] Pain Management Department for afollow-up appointment for [...] percoc[facility]2018 [facility].Imaging results in scanned [...] other than HPI.Data scribed by above mentioned MA/SAFETY AIDE/RN/PA, and personally reviewed andverified by physician. Maged [...] treatment plan. Patient agreeswith above. Maged Murdock, [facility]2017Referring Provider: LINDSEY AGUILAR [[id number]]Allergies As of Date: 02/10/2018(No Known Allergies)Date Reviewed: [...] 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] INVALID FOR*Letter TextSept2017Maged Murdock [facility] [address] [place], [place] [phone]Elyria, [place] [phone] Radha Duncan:Thank you for seeing me today. [...] any questions. Sincerely, Maged Murdock MDEncounter Number: [id number] Status:Closed by MAGED MURDOCK MD on 02/11/18 Normal [facility] PROGRESSon 02-10-2018 Protein mass conc HNO ID: [id number] thor: Maged Jolleyervice: (none)Author Type: PhysicianType: Progress NotesFiled: 02/11/2018 1:30 PMNote Text:SUBJECTIVE:The patient presents to [facility] Pain Management Departmentfor a follow-up appointment for [...] other than HPI.Data scribed by above mentioned MA/SAFETY AIDE/RN/PA, and personally reviewed andverified by physician. Maged [...] as part of a research trial, or jnoh location nearer to home.Please call with any [...] with above. Maged Murdock, PAUeptember 2017 Normal [facility] CNOVon 01-10-2018 CNOV Office Visit (PAINCC) -------RADHA DUNCAN ([id number]) 1970 FDate Time Provider Department01/10/18 1:00 PM DEVANTE YAN (FILM EDITOR) PAINCC During your visit today, we recorded the following information about you: Pulse Blood pressure Weight 85/minute 127/47 70.3 kgDevante Yan APRN.CNP 01/10/2018 2:13 PM SignedSUBJECTIVE:The patient presents to The [facility] Pain Management Department for afollow-up appointment for [...] and C4-C5 secondaryto DDDAnterior mechanical fusion of D2-0-9NBXBPL OF SYSTEMS:GENERAL: (-) weight loss, (+)malaise, (-)fevers.HEENT:(+)headache [...] other than HPI.Data scribed by above mentioned MA/SAFETY AIDE/RN/PA, and personally reviewed andverified by Devante Yan [...] resulting treatment plan. Patient agreeswith above.Devante Yan APRN.CNPAucrownpoint healthcare facilityt 2017Referring Provider: ULYSSES RICHARDSON JR [[id number]]Allergies As of Date: 01/10/2018(No Known Allergies)Date Reviewed: [...] INVALID FOR*Follow-up and Disposition History RecordedEncounter Number: [id number] Status:Closed by DEVANTE YAN CNP on 01/10/18 Normal [facility] PROGRESSon 01-09-2018 Protein mass conc HNO ID: [id number] thor: Devante Pereyra (Yomi) HillService: (none)Author Type: Nurse PractitionerType: Progress NotesFiled: 01/10/2018 2:13 PMNote Text:SUBJECTIVE:The patient presents to The [facility] Pain Management Departmentfor a follow-up appointment for [...] to moderate foraminal narrowing at C3-C4, and C4-G4fnswkglnb to DDDAnterior mechanical fusion of O0-2-2YPNVDM OF SYSTEMS:GENERAL: (-) weight loss, (+)malaise, (-)fevers.HEENT:(+)headache [...] other than HPI.Data scribed by above mentioned MA/SAFETY AIDE/RN/PA, and personally reviewed andverified by Devante Yan [...] Patientagrees with above.Devante Yan APRN.CNPAuguschristen 2017 Normal [facility] CNPNon 12-21-2017 CNPN Telephone (JOYCELYN) -------[facility]UNCAN ([id number]) 1970 [facility] Department12/21/17 MAGED MURDOCK During your visit today, we recorded the following information about you:Lorena Araiza 12/21/2017 10:31 AM AddendumPatient calling in to inquire if you have received MRI films from [facility] [place] [facility].Please advisJacob Park LPN 12/22/2017 3:15 PM SignedSpoke with patient and informed her that we did receive the thoracic MRI whichwas normal.We did not receive the cervical MRI. She will call [facility] and have them refaxit.Kami Zheng Workleader 12/26/2017 9:53 AM SignedPatient called back in regards to below message. Patient would like to know ifwe have received the Cervical MRI as it was refaxed 12/22. Pleasereview.Clint Park LPN 12/26/2017 11:01 AM SignedSpoke to [facility] and they are refaxing it as I only received cover.Clint Park LPN 12/26/2017 11:[address]I will have Dr. Murdock review on when he is in office.Clint Park LPN 12/29/2017 4:31 PM SignedSpoke with patient and moved her appt with Devantedarcy Yan as said sheneeded office visit.Allergies As of [...] Status:Closed by CLINT PARK LPN on 12/22/17 [facility] CNOVon 12-08-2017 CNOV Office Visit (PAINCC) -------RADHA DUNCAN ([id number]) 1970 FDate Time Provider Department12/08/17 1:30 PM MAGED MURDOCK During your visit today, we recorded the following information about you: Pulse Respiration Blood pressure Weight 62/minute 16/minute 105/40 68.9 kgMaged Murdock MD 12/08/2017 6:06 PM SignedReferring Or Consulting Physician:Lindsey Aguilar, PA[address] [place] [address]UZGQO COMPLAINT: pain in my neck, shoulders, thoracic [...] scan (2015)no abnormal uptake at T5EMG (10/2017) [facility] Pain MgmtBil C5, C6 motor chronic [...] Number of children: 0Occupational 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 Maged [...] also during rena-operative period. we dont have kxtn-gypszfb-exlordgq for disability, likely to hamper rapid recovery [...] she did have severe postprocedure pain in [place] [facility] handsDirect patient care time spent: [...] mail.Maged Murdock MDJuly 2017Referring Provider: LINDSEY AGUILAR [[id number]]Allergies As of Date: 12/08/2017(No Known Allergies)Date Reviewed: 12/08/2017Reviewed by: Kayla Sparks SAFETY AIDE - Fully AssessedReason for Visit: New Patient [172]Primary Visit Diagnosis:Facet syndrome (HCC) [M46.90] Other Visit Diagnoses:Pain in thoracic spine [M54.6] Radiculopathy, cervical region [M54.12] Vitamin D deficiency [E55.9] Localized swelling, mass and lump, trunk [R22.2] Cervical post-laminectomy syndrome [M96.1] Cervical spondylosis without myelopathy [M47.812] Current smoker [F17.200] Malaise and fatigue [R53.81, R53.83] Spinal stenosis of cervical region [M48.02]Order(s):C-REACTIVE PROTEIN (CRP) [SQCRP] Order #: [id number] FUTURE SED RATE WESTERGREN [SQWSR] Order #: [id number] FUTURE TSH BLD [SQTSH] Order #: [id number] FUTURE IRON + TIBC [SQIRON] Order #: [id number] FUTURE VITAMIN D 25 HYDROXY [SQVITD] Order #: [id number] FUTURE MRI THORACIC SPINE WO/W IVCON [5940083] Order #: [id number] FUTURE iv contrast (will be provided with [...] EachRfl: 0 MRI CERVICAL SPINE WO IVCON [[id number]] Order #: [id number] FUTUREPrescriptions as of 12/08/2017 Sig: OXCARBAZEPINE 150 [...] discontinue is not on file.Letter TextJuly 2017Maged MurdockMcKitrick HospitalDepartment of Pain [id number], [place] [phone] [phone] Suzanne M Bailey:Thank you for seeing me [...] medications for the issues above, [facility]. Afterthat, further testing could be done to get to the bottom of your problems.Please call with any questions. 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 Maged [...] on right and left. Axial Loading Testnegative, Hwang's sign negative. No obvious deformity or signs [...] she did have severepost procedure pain [place] [facility] patient care time spent: [...] record, fax, or mail.Aishwarya Joyner 2017 Normal [facility] Encounters Encounter Date Encounter Type Care Provider Facility Start: 08-15-2023 ambulatory [facility] Start: 07-18-2023 End: 08-15-2023 ambulatory [facility] Start: 03-06-2020 End: 03-07-2020 Patient encounter procedure PEREZ LESTER Facility: Start: 04-27-2018 End: 04-28-2018 Patient encounter procedure PROVIDER UNKNOWN Facility:[facility] Start: 02-10-2018 End: 02-13-2018 Patient encounter MAGED MURDOCK [facility] Start: 01-10-2018 End: 01-11-2018 Patient encounter DEVANTE Pereyra CNP [facility] Start: 12-08-2017 End: 12-09-2017 Patient encounter MAGED MURDOCK [facility] Procedures Date Procedure Procedure Detail Performing Clinician Start: 03-06-2020 End: 03-06-2020 Microscopic examination of blood, culture PEREZ LESTER Comment on above: Performed By: #### D RUGRPD #### [facility] [address] [place] [address] Christian Degroot Payers Date Payer Category Payer Unknown [id number] 1970 Unknown [id number] [id number] 1970 Unknown [id number] [id number] 1970 Unknown [id number] 2.16.8 [id number] 1969 Unknown [id number] 2.16.8 [id number] 1959 Unknown [id number] Unknown [id number] Summary Purpose Family History No Family History Records FoundNo Family History Records FoundNo Family History Records FoundNo Family History Records Found Advance Directives No Advanced Directives Records FoundNo Advanced Directives Records FoundNo Advanced Directives Records FoundNo Advanced Directives Records Found Additional Source Comments INFORMATION SOURCE (unrecogn ized section and content) DATE CREATED AUTHOR 04/03/2018 [facility] DATE CREATED AUTHOR AUTHOR'S ORGANIZ ATION 05/03/2018 [facility] DATE CREATED AUTHOR AUTHOR'S ORGANIZ ATION 04/09/2020 [facility] DATE CREATED AUTHOR AUTHOR'S ORGANIZ ATION 08/16/2023 [facility] FOR RECORDS PERTAINING TO PATIENTS WHO [...] BE BASED ON THE PRIMARY CLINICAL RECORDS. [facility] [employer] [facility]. provides no warranty or guarantee of the accuracy or completeness of information in this document.
== END 2023-08-18 09:39 | disposition home or self-care (01) ==
LOC: LAB 09:38
PROVIDERS: PCP Internal Medicine; Visit Provider Orthopaedic Surgery Orthopaedic Surgery of the Spine
DX: Z01.812 Encounter for preprocedural laboratory examination (principal); M48.02 Spinal stenosis, cervical region
CPT/HCPCS: 87081

== ENCOUNTER 2023-08-31 10:28 | Outpatient (OUT) | payer OTHER, SELFPAY ==
--- OUTSIDE RECORDS SUMMARY | 2023-08-31 10:47 | XMS_ITS | CCD ---
Author Organization [facility] Care Team Providers Care Railroad Firer/Fireman Name Role Phone MAGED MURDOCK Unavailable Unavailable LINDSEY AGUILAR (PA) Unavailable Unavail able DEVANTE YAN (FORK LIFT MECHANIC) Unavailable UnavailULYSSES Phillips JR Unavailable Unavail able MAGED MURDOCK Unavailable Unavailable LINDSEY AGUILAR (PA) Unavailable Unavail able UNKNOWN, PROVIDER Unavailable Unavailable UNKNOWN, PROVIDER Unavailable Unavailable VALONE, ULYSSES Unavailable Unavailable VALONE, ULYSSES Unavailable Unavailable PEREZ LESTER Admitting Unavailable DYLAN, ULYSSES Primary Care Unavailable AZAR MAN Consulting Unavailable PEREZ LESTER Attending Unavailable PEREZ LESTER Consulting Unavailable MAT CASEY Consulting Unavailable Fela Smith Consulting Unavailable WALI BUSTILLOS Consulting Unavailable SHAIKH SALES Consulting Unavailable RADHA ELLIS Referring Unavailable ULYSSES RICHARDSON Primary Care Unavailable RADHA ELLIS Referring Unavailable ULYSSES RICHARDSON Primary Care Unavailable ULYSSES RICHARDSON Referring Unavailable DYLAN, ULYSSES Primary Care Unavailable Allergies Allergy Classification Reported [...] PROS DEVC GFT INIT] Onset: 03-18-2020 Episodic Fluid and electrolyte disorders (1 source) Hypokalemia; Translations: [Hypokalemia] Onset: 08-22-2023 Episodic Immunizations and screening for infectious disease [...] Test Name Value Interpretation Reference Range Facility ELECTROLYTESon 08-22-2023 Anion gap [Moles/Vol] 8 mmol/L Normal 5-15 [facility] Comment on above: Performed By: #### E LEC #### [facility] ([id number]) [address] [place] [address] Chloride [Moles/Vol] 110 mmol/L High 98-109 [facility] Comment on above: Performed By: #### E LEC #### [facility] ([id number]) [address] [place] [address] CO2 [Moles/Vol] 23 mmol/L Normal 22-32 [facility] Comment on above: Performed By: #### E LEC #### [facility] ([id number]) [address] [place] [address] Potassium [Moles/Vol] 4.4 mmol/L Normal 3.5-5.0 [facility] Comment on above: Performed By: #### E LEC #### [facility] ([id number]) [address] [place] [address] Sodium [Moles/Vol] 141 mmol/L Normal 134-146 [facility] Comment on above: Performed By: #### E LEC #### [facility] ([id number]) [address] [place] [address] CARDIAC AZAR ADMITon 020 CK [Catalytic activity/Vol] 915 U/L Critically high 30-135 [facility] Comment on above: Result Comment: Test repeated. Critical value verified. Performed By: #### D JUNED #### [facility] [address] [place], [place] [address] Christian Degroot CK.MB [Mass/Vol] 12.82 ng/mL Critically high <=2.37 [facility] Comment on above: Result Comment: Test repeated. Critical value verified. Performed By: #### D RUGRPD #### [facility] [address] [place], [place] [address] Christian Santanaen INR Coag (Bld) [Relative time] SEE BELOW Normal [facility] Comment on above: Result Comment: <0.0 34 ng/ml NEGATIVE 0.034-0.119 INDETERMINATE 0.120 AMI CUT OFF Performed By: #### D RUGRPD #### [facility] [address] [place], [place] [address] Christian Mikayla ÁNGEL 96.0 ng/mL Critically high <=61.5 [facility] Comment on above: Performed By: #### D RUGRPD #### [facility] [address] [place] [address] Christian Mikayla TROP 0.028 ng/mL Normal <=0.[address] [facility] Comment on above: Performed By: #### D RUGRPD #### [facility] [address] [place] [address] Christian Mikayla CK [Catalytic activity/Vol] 1282 U/L Critically high 30-[address] [facility] Comment on above: Result Comment: Test repeated. Critical value verified. Performed By: #### T ROP, CMP #### [facility] [address] [place] [address] Christian Degroot CK.MB [Mass/Vol] 24.63 ng/mL Critically high <=2.37 [facility] Comment on above: Result Comment: Test repeated. Critical value verified. Performed By: #### T ROP, CMP #### [facility] [address] [place] [address] Christian Degroot INR Coag (Bld) [Relative time] SEE BELOW Normal [facility] Comment on above: Result Comment: <0.0 34 ng/ml NEGATIVE 0.034-0.119 INDETERMINATE 0.120 AMI CUT OFF Performed By: #### T ROP, CMP #### [facility] [address] [place] [address] Christian Mikayla ÁNGEL 235.0 ng/mL Critically high <=61.5 [facility] Comment on above: Performed By: #### T ROP, CMP #### [facility] [address] [place] [address] Christian Mikayla TROP 0.033 ng/mL Normal <=0.[address] [facility] Comment on above: Performed By: #### T ROP, CMP #### [facility] [address] [place] [address] Christianvíctor Santanaen CBC AUTO DIFFon 03-07-2020 Basophils (Bld) [#/Vol] 0.0 103/ul Normal 0.0-0.[address] [facility] Comment on above: Performed By: #### C BC #### [facility] [address] [place], [place] [id number] Christian Mikayla Basophils/100 WBC (Bld) 0.1 % Critically low 0.2-2.0 [facility] Comment on above: Performed By: #### C BC #### [facility] [address] [place], [place] [id number] Christian Mikayla Eosinophils (Bld) [#/Vol] 0.0 103/ul Normal 0.0-0.7 [facility] Comment on above: Performed By: #### C BC #### [facility] [address] [place], [place] [id number] Christian Mikayla Eosinophils/100 WBC (Bld) 0.0 % Critically low 0.9-7.0 [facility] Comment on above: Performed By: #### C BC #### [facility] [address] [place] [address] Christian Mikayla Erythrocyte distribution width (RBC) [Ratio] 13.4 % Normal 11.0-15.0 [facility] Comment on above: Performed By: #### C BC #### [facility] [address] [place], [place] [id number] Christian Mikayla Hematocrit (Bld) [Volume fraction] 35.4 % Critically low 36.0-48.0 [facility] Comment on above: Performed By: #### C BC #### [facility] [address] [place], [place] [id number] Christian Mikayla Hemoglobin (Bld) [Mass/Vol] 11.4 g/dL Critically low 12.0-16.0 [facility] Comment on above: Performed By: #### C BC #### [facility] [address] [place] [address] Christian Mikayla IG # 0.07 10e3/ul Critically high 0.00-0.03 [facility] Comment on above: Performed By: #### C BC #### [facility] [address] [place] [address] Christian Mikayla IG % 0.4 % Normal 0.0-0.5 [facility] Comment on above: Performed By: #### C BC #### [facility] [address], [place] [address] Christian Mikayla Lymphocytes (Bld) [#/Vol] 1.1 103/ul Critically low 1.2-3.8 [facility] Comment on above: Performed By: #### C BC #### [facility] [address] [place], [place] [address] Christian Mikayla Lymphocytes/100 WBC (Bld) 6.9 % Critically low 20.5-60.0 [facility] Comment on above: Performed By: #### C BC #### [facility] [address] [place], [place] [id number] Christian Mikayla MANUAL DIFF REQ NO Normal [facility] Comment on above: Performed By: #### C BC #### [facility] [address] [place], [place] [id number] Christian Mikayla MCH (RBC) [Entitic mass] 32.7 pg Normal 26.7-34.0 [facility] Comment on above: Performed By: #### C BC #### [facility] [address] [place], [place] [id number] Crhistian Mikayla MCHC (RBC) [Mass/Vol] 32.2 g/dL Normal 29.9-35.2 [facility] Comment on above: Performed By: #### C BC #### [facility] [address] [place], [place] [id number] Christian Mikayla MCV (RBC) [Entitic vol] 101.4 fL Critically high 81.0-99.0 [facility] Comment on above: Performed By: #### C BC #### [facility] [address] [place], [place] [id number] Christian Mikayla Monocytes (Bld) [#/Vol] 1.4 103/ul Critically high 0.3-0.[address] [facility] Comment on above: Performed By: #### C BC #### [facility] [address] [place] [id number] Christian Mikayla Monocytes/100 WBC (Bld) 8.6 % Normal 1.7-12.0 [facility] Comment on above: Performed By: #### C BC #### [facility] [address] [place], [place] [address] Christian Mikayla Neutrophils (Bld) [#/Vol] 13.4 103/ul Critically high 1.4-6.5 [facility] Comment on above: Performed By: #### C BC #### [facility] [address] [place], [place] [address] Christian Mikayla Neutrophils/100 WBC (Bld) 84.0 % Critically high 43.0-75.0 [facility] Comment on above: Performed By: #### C BC #### [facility] [address] [place] [address] Christian Mikayla Platelet mean volume (Bld) [Entitic vol] 9.5 fL Normal 9.5-13.5 [facility] Comment on above: Performed By: #### C BC #### [facility] [address] [place] [address] Christian Mikayla Platelets (Bld) [#/Vol] 207 103/ul Normal 150-450 [facility] Comment on above: Performed By: #### C BC #### [facility] [address] [place] [address] Christian Mikayla RBC (Bld) [#/Vol] 3.49 106/ul Critically low 4.20-5.40 [facility] Comment on above: Performed By: #### C BC #### [facility] [address] [place] [address] Christian Mikayla WBC (Bld) [#/Vol] 16.0 103/ul Critically high 4.0-11.0 [facility] Comment on above: Performed By: #### C BC #### [facility] [address] [place] [address] Christian Degroot PROF CHEM 8 (BAS METB)on Anion gap [Moles/Vol] 11.2 mmol/L Normal [facility] Comment on above: Performed By: #### D RUGRPD #### [facility] [address] [place] [address] Christian Mikayla Calcium [Mass/Vol] 8.3 mg/dL Critically low 8.4-10.[address] [facility] Comment on above: Performed By: #### D RUGRPD #### [facility] [address] [place] [id number] Christian Mikayla Chloride [Moles/Vol] 106 mmol/L Normal 98-107 [facility] Comment on above: Performed By: #### D RUGRPD #### [facility] [address] [address] Christian Mikayla CO2 [Moles/Vol] 24.5 mmol/L Normal 22.0-30.0 [facility] Comment on above: Performed By: #### D RUGRPD #### [facility] [address] [place] [address] Christian Mikayla Creatinine [Mass/Vol] 0.53 mg/dL Normal 0.52-1.04 [facility] Comment on above: Performed By: #### D RUGRPD #### [facility] [address] [place] [id number] Christian Mikayla EGFR-AF EAST [place] >60 Normal >=60 [facility] Comment on above: Performed By: #### D RUGRPD #### [facility] [address] [place], [place] [id number] Christian Mikayla EGFR-NON AF [place] >60 Normal >=60 [facility] Comment on above: Performed By: #### D RUGRPD #### [facility] [address] [address] Christian Mikayla Glucose [Mass/Vol] 113 mg/dL Critically high 74-106 [facility] Comment on above: Performed By: #### D RUGRPD #### [facility] [address] [place], [place] [phone] Christian Mikayla Potassium [Moles/Vol] 3.7 mmol/L Normal 3.4-5.0 [facility] Comment on above: Performed By: #### D RUGRPD #### [facility] [address] [place] [address] Christian Mikayla Sodium [Moles/Vol] 138 mmol/L Normal 137-145 [facility] Comment on above: Performed By: #### D RUGRPD #### [facility] [address] [place], [place] [id number] Christian Mikayla Urea nitrogen [Mass/Vol] 12.0 mg/dL Normal 7.0-17.[address] [facility] Comment on above: Performed By: #### D RUGRPD #### [facility] [address] [place], [place] [phone] Christian Mikayla Urea nitrogen/Creatinin e [Mass ratio] 22.6 mg/mg Normal [facility] Comment on above: Performed By: #### D RUGRPD #### [facility] [address] [place], [place] [phone] Christian Mikayla CBC W MANUAL DIFFon 03-06-20 20 ATYPICAL LYMPH # Normal [facility] Comment on above: Performed By: #### D RUGRPD #### [facility] [address] [place], [place] [phone] Christian Mikayla ATYPICAL LYMPH % Normal [facility] Comment on above: Performed By: #### D RUGRPD #### [facility] [address] [place] [address] Christian Mikayla BAND # Normal 0.0-0.[address] [facility] Comment on above: Performed By: #### D RUGRPD #### [facility] [address] [place] [address] Christian Mikayla BAND % Normal 0-[address] [facility] Comment on above: Performed By: #### D RUGRPD #### [facility] [address] [place] [address] Christian Mikayla BASOM # 0.00 103/ul Normal 0.00-0.[address] [facility] Comment on above: Performed By: #### D RUGRPD #### [facility] [address] [place] [address] Christian Mikayla BASOM % 0.0 % Critically low 0.2-2.0 [facility] Comment on above: Performed By: #### D RUGRPD #### [facility] [address] [place], [place] [phone] Christian Mikayla BLAST # Normal [facility] Comment on above: Performed By: #### D RUGRPD #### [facility] [address] [place] [address] Christian Mikayla BLAST % Normal [facility] Comment on above: Performed By: #### D RUGRPD #### [facility] [address] [place] [address] Christian Mikayla CORRECTED WBC Normal 4.0-11.0 [facility] Comment on above: Performed By: #### D RUGRPD #### [facility] [address] [place], [place] [phone] Christian Mikayla Eosinophils (Bld) [#/Vol] 0.00 103/ul Normal 0.00-0.[address] [facility] Comment on above: Performed By: #### D RUGRPD #### [facility] [address] [place], [place] [phone] Christian Mikayla Eosinophils/100 WBC (Bld) 0.0 % Critically low 0.9-7.0 [facility] Comment on above: Performed By: #### D RUGRPD #### [facility] [address] [place], [place] [phone] Christian Mikayla Erythrocyte distribution width (RBC) [Ratio] 13.2 % Normal 11.0-15.0 [facility] Comment on above: Performed By: #### D RUGRPD #### [facility] [address] [place], [place] [phone] Christian Mikayla Hematocrit (Bld) [Volume fraction] 44.1 % Normal 36.0-48.[address] [facility] Comment on above: Performed By: #### D RUGRPD #### [facility] [address] [place], [place] [phone] Christian Mikayla Hemoglobin (Bld) [Mass/Vol] 13.9 g/dl Normal 12.0-16.[address] [facility] Comment on above: Performed By: #### D RUGRPD #### [facility] [address] [place], [place] [id number] Christian Mikayla LYMPHM # 0.26 103/ul Critically low 1.20-3.80 [facility] [place] [facility] Comment on above: Performed By: #### D RUGRPD #### [facility] [address] [place], [place] [address] Christian Mikayla LYMPHM% 1.0 % Critically low 20.5-60.0 [facility] Comment on above: Performed By: #### D RUGRPD #### [facility] [address] [place] [id number] Christian Degroot MCH (RBC) [Entitic mass] 32.6 pg Normal 26.7-34.[address] [facility] Comment on above: Performed By: #### D RUGRPD #### [facility] [address] [place] [id number] Christianvíctor Degroot MCHC (RBC) [Mass/Vol] 31.5 g/dl Normal 29.9-35.[address] [facility] Comment on above: Performed By: #### D RUGRPD #### [facility] [address] [place] [id number] Christian Degroot MCV (RBC) [Entitic vol] 103.3 fL Critically high 81.0-99.0 [facility] Comment on above: Performed By: #### Dwayne RUGRPD #### [facility] [address] [place], [place] [id number] Christian Mikayla METAMYELOCYTE # Normal [facility] Comment on above: Performed By: #### D RUGRPD #### [facility] [address] [place] [id number] Christianvíctor Santanaen METAMYELOCYTE % Normal [facility] Comment on above: Performed By: #### D RUGRPD #### [facility] [address] [place] [address] Christian Mikayla MONOM# 1.32 103/ul Critically high 0.30-0.80 [facility] Comment on above: Performed By: #### D RUGRPD #### [facility] [address] [place] [id number] Christian Mikayla MONOM% 5.0 % Normal 1.7-12.[address] [facility] Comment on above: Performed By: #### D RUGRPD #### [facility] [address] [place] [id number] Christianvíctor Santanaen MYELOCYTE # Normal [facility] Comment on above: Performed By: #### D RUGRPD #### [facility] [address] [place], [place] [id number] Christian Mikayla MYELOCYTE % Normal [facility] Comment on above: Performed By: #### D RUGRPD #### [facility] [address] [place], [place] [phone] Christian Mikayla NRBC Normal [facility] Comment on above: Performed By: #### D RUGRPD #### [facility] [address] [place], [place] [phone] Christian Mikayla Platelet mean volume (Bld) [Entitic vol] 9.6 fL Normal 9.5-13.5 [facility] Comment on above: Performed By: #### D RUGRPD #### [facility] [address] [place], [place] [phone] Christian Mikayla Platelets (Bld) [#/Vol] 268 103/ul Normal 150-[address] [facility] Comment on above: Performed By: #### D RUGRPD #### [facility] [address] [place], [place] [id number] Christian Mikayla RBC (Bld) [#/Vol] 4.27 106/ul Normal 4.20-5.40 [facility] Comment on above: Performed By: #### D RUGRPD #### [facility] [address] [place], [place] [phone] Christian Mikayla SEG # 24.82 103/ul Critically high 1.40-6.50 [facility] Comment on above: Performed By: #### D RUGRPD #### [facility] [address] [place], [place] [address] Christian Mikayla Segmented neutrophils/100 WBC (Bld) 94.0 % Critically high 43.0-75.0 [facility] Comment on above: Performed By: #### D RUGRPD #### [facility] [address] [place], [place] [id number] Christian Mikayla WBC (Bld) [#/Vol] 26.4 103/ul Critically high 4.0-11.0 [facility] Comment on above: Performed By: #### D RUGRPD #### [facility] [address] [place] [address] Christian Degroot CPKon 03-06-2020 CK [Catalytic activity/Vol] 464 U/L Critically high 30-[address] [facility] Comment on above: Result Comment: test repeated critical value verified Performed By: #### C K #### [facility] [address] [place], [place] [address] ABD/PELV W CONon 03-06-20 CT ABD/PELV W CON EXAMINATION: CT ABD/ [...] MAT CASEY Date: 2020-03-06 18:[address] [facility] CT STROKE HEAD WOon 03-06-20 20 [...] MAT CASEY Date: 2020-03-06 16:[address] [facility] DRUG SCREEN RAPID (URINE)on 03-06-2020 AMP Positive Normal NEGATIVE [facility] Comment on above: Performed By: #### D RUGRPD #### [facility] [address] [place] [address] Christian Mikayla BAR Negative Normal NEGATIVE [facility] Comment on above: Performed By: #### D RUGRPD #### [facility] [address] [place] [address] Christian Mikayla BUP Negative Normal NEGATIVE [facility] Comment on above: Performed By: #### D RUGRPD #### [facility] [address] [place] [address] Christian Mikayla BZO Negative Normal NEGATIVE [facility] Comment on above: Performed By: #### D RUGRPD #### [facility] [address] [place] [address] Christian Mikayla RITCHIE Negative Normal NEGATIVE [facility] Comment on above: Performed By: #### D RUGRPD #### [facility] [address] [place] [address] Christian Mikayla CUT-OFFS SEE BELOW Normal [facility] Comment on above: Result Comment: AMP [...] ng/mL Performed By: #### D RUGRPD #### [facility] [address] [place] [address] DRUG CUT HEADER DRUG CLASS TEST SYST EM CUT-OFF CONCENTRATIONS ARE FOLLOWS: Normal [facility] Comment on above: Performed By: #### D RUGRPD #### [facility] [address] [place] [address] Christian Mikayla mAMP Negative Normal NEGATIVE [facility] Comment on above: Performed By: #### D RUGRPD #### [facility] [address] [place] [address] Christian Mikayla MTD Negative Normal NEGATIVE [facility] Comment on above: Performed By: #### D RUGRPD #### [facility] [address] [place] [address] Christian Mikayla OPI Positive Normal NEGATIVE [facility] Comment on above: Performed By: #### D RUGRPD #### [facility] [address] [place] [address] Christian Mikayla OXY Negative Normal NEGATIVE [facility] Comment on above: Performed By: #### D RUGRPD #### [facility] [address] [place] [address] Mikayla PCP Negative Normal NEGATIVE [facility] Comment on above: Performed By: #### D RUGRPD #### [facility] [address] [place] [address] [facility] Negative Normal NEGATIVE [facility] Comment on above: Performed By: #### D RUGRPD #### [facility] [address] [place] [address] Christian Mikayla TCA Negative Normal NEGATIVE [facility] Comment on above: Performed By: #### D RUGRPD #### [facility] [address] [place] [address] Christian Mikayla THC Negative Normal NEGATIVE [facility] Comment on above: Performed By: #### D RUGRPD #### [facility] [address] [place], [place] [phone] Christian Mikayla ER URINE PROFILEon 0 Bilirubin [Mass/Vol] Negative Normal NEGATIVE [facility] Comment on above: Performed By: #### E RUR #### [facility] [address] [place] [address] Christian Mikayla BLOOD Negative Normal NEGATIVE [facility] Comment on above: Performed By: #### E RUR #### [facility] [address] [place] [address] Christian Mikayla Clarity (U) CLEAR Normal [facility] Comment on above: Performed By: #### E RUR #### [facility] [address] [place] [address] Christian Imkayla Color (U) YELLOW Normal YELLOW [facility] Comment on above: Performed By: #### E RUR #### [facility] [address] [place] [address] Christian Mikayla ERUAHD A micrscopic examina tion will be performed if indicated. Normal [facility] Comment on above: Performed By: #### E RUR #### [facility] [address] [place] [address] Christian Mikayla Glucose [Mass/Vol] Negative Normal NEGATIVE [facility] Comment on above: Performed By: #### E RUR #### [facility] [address] [place], [place] [id number] Christian Mikayla Ketones Ql (U) Negative Normal NEGATIVE The [facility] Comment on above: Performed By: #### E RUR #### [facility] [address] [place] [address] Christian Mikayla Nitrite Ql (U) Negative Normal NEGATIVE [facility] Comment on above: Performed By: #### E RUR #### [facility] [address] [place], [place] [id number] Christian Mikayla pH (Bld) 6.0 Normal 5-[address] [facility] Comment on above: Performed By: #### E RUR #### [facility] [address] [place] [address] Christian Mikayla Protein (U) [Mass/Vol] TRACE Normal [facility] Comment on above: Performed By: #### E RUR #### [facility] [address] [place] [address] Christian Mikayla SPEC GRAVITY >=1.030 Normal 1.005-<=1.02 5 [facility] Comment on above: Performed By: #### E RUR #### [facility] [address] [place] [address] Christianvíctor Degroot UR MICRO IND NOT INDICATED Normal [facility] Comment on above: Performed By: #### E RUR #### [facility] [address] [place] [address] Christianvíctor Degroot Urobilinogen Qn (U) 0.2 EU/dl Normal [facility] Comment on above: Performed By: #### E RUR #### [facility] [address] [place] [address] Christianvíctor Degorot WBC (Bld) [#/Vol] Negative Normal NEGATIVE [facility] Comment on above: Performed By: #### E RUR #### [facility] [address] [place], [place] [id number] Christian Mikayla ETHANOL (BLD ALC)on 03-06-20 20 Ethanol [Mass/Vol] NOTE: 80 mg/dl is th e legal limit for a blood alcohol level Normal [facility] Comment on above: Performed By: #### E TH #### [facility] [address] [place], [place] [id number] Christian Mikayla Ethanol [Mass/Vol] mg/dL Normal [facility] Comment on above: Performed By: #### E TH #### [facility] [address] [place], [place] [address] Christian Mikayla HEMOGRAM AND PLATELon 2019 WBC (Bld) [#/Vol] 23.5 103/ul Critically high 4.0-11.0 [facility] Comment on above: Performed By: #### H H #### [facility] [address] [place] [address] Christian Degroot LACTATE/LACTIC ACIDon 2019 Lactate [Moles/Vol] 0.7 mmol/L Normal 0.7-2.0 [facility] Comment on above: Performed By: #### L ACT #### [facility] [address] [place] [address] Christian Degroot MYOGLOBINon 03-06-2020 Myoglobin [Mass/Vol] 918.0 ng/mL Critically high <=61.5 [facility] Comment on above: Result Comment: test repeated critical value verified Performed By: #### M YO #### [facility] [address] [place] [address] Christian Degroot POINT OF CARE GLUCOSEon 02-14 Glucose [Mass/Vol] 117 mg/dL Critically high 74-106 [facility] Comment on above: Performed By: #### D RUGRPD #### [facility] [address] [place] [address] Christian Degroot PROF 14(COMP METB)on 020 Albumin [Mass/Vol] 3.3 g/dL Critically low 3.5-5.0 [facility] Comment on above: Performed By: #### T BLAYNE CMP #### [facility] [address] [place] [address] Christian Degroot Albumin/Globulin [Mass ratio] 1.1 {ratio} Normal [facility] Comment on above: Performed By: #### T BLAYNE, CMP #### [facility] [address] [place] [address] Christian Degroot ALP [Catalytic activity/Vol] 69 U/L Normal 38-126 [facility] Comment on above: Performed By: #### T BLAYNE CMP #### [facility] [address] [place], [place] [id number] Christian Mikayla ALT [Catalytic activity/Vol] 30 U/L Normal 9-[address] [facility] Comment on above: Performed By: #### T ROP, CMP #### [facility] [address] [id number] Christian Mikayla Anion gap [Moles/Vol] 16.8 mmol/L Normal [facility] Comment on above: Performed By: #### T ROP, CMP #### [facility] [address] [address] Christian Mikayla AST [Catalytic activity/Vol] 29 U/L Normal 14-[address] [facility] Comment on above: Performed By: #### T ROP, CMP #### [facility] [address] [address] Christian Mikayla Bilirubin Ql (U) 0.4 mg/dL Normal 0.2-1.3 [facility] Comment on above: Performed By: #### T ROP, CMP #### [facility] [address] [address] Christian Mikayla Calcium [Mass/Vol] 8.7 mg/dL Normal 8.4-10.2 [facility] Comment on above: Performed By: #### T ROP, CMP #### [facility] [address] [place] [address] Christian Mikayla Chloride [Moles/Vol] 104 mmol/L Normal 98-[address] [facility] Comment on above: Performed By: #### T ROP, CMP #### [facility] [address] [address] Christian Mikayla CO2 [Moles/Vol] 22.6 mmol/L Normal 22.0-30.0 [facility] Comment on above: Performed By: #### T ROP, CMP #### [facility] [address] [place], [place] [address] Christian Mikayla Creatinine [Mass/Vol] 0.92 mg/dL Normal 0.52-1.[address] [facility] Comment on above: Performed By: #### T ROP, CMP #### [facility] [address] [id number] Christian Mikayla EGFR-AF [place] >60 Normal >=60 [facility] Comment on above: Performed By: #### T ROP, CMP #### [facility] [address] [id number] Christian Mikayla EGFR-NON AF [place] >60 Normal >=60 [facility] Comment on above: Performed By: #### T ROP, CMP #### [facility] [address] [id number] Christian Mikayla Globulin (S) [Mass/Vol] 3.0 g/dL Normal [facility] Comment on above: Performed By: #### T ROP, CMP #### [facility] [address] [id number] Christian Mikayla Glucose [Mass/Vol] 130 mg/dL Critically high 74-106 [facility] Comment on above: Performed By: #### T ROP, CMP #### [facility] [address] [address] Christian Mikayla Potassium [Moles/Vol] 4.4 mmol/L Normal 3.4-5.0 [facility] Comment on above: Performed By: #### T ROP, CMP #### [facility] [address] [id number] Christian Mikayla Protein [Mass/Vol] 6.3 g/dL Normal 6.1-8.2 [facility] Comment on above: Performed By: #### T ROP, CMP #### [facility] [address] [id number] Christian Mikayla Sodium [Moles/Vol] 139 mmol/L Normal 137-145 [facility] Comment on above: Performed By: #### T ROP, CMP #### [facility] [address] [id number] Christian Mikayla Urea nitrogen [Mass/Vol] 18.0 mg/dL Critically high 7.0-17.0 [facility] Comment on above: Performed By: #### T ROP, CMP #### [facility] [address] [id number] Christian Mikayla Urea nitrogen/Creatinin e [Mass ratio] 19.6 mg/mg Normal [facility] Comment on above: Performed By: #### T ROP, CMP #### [facility] [address] [place] [address] Christian Mikayla RESPIRATORY PANEL PLUSon Adenovirus NOT DETECTED Normal NOT DETECTED [facility] Comment on above: Performed By: #### D RUGRPD #### [facility] [address] [place] [address] Christian Mikayla B. Parapertusis NOT DETECTED Normal NOT DETECTED [facility] Comment on above: Performed By: #### D RUGRPD #### [facility] [address] [place] [address] Christian Mikayla B. Pertussis NOT DETECTED Normal NOT DETECTED [facility] Comment on above: Performed By: #### D RUGRPD #### [facility] [address] [place] [address] Christian Mikayla Chlamydia Pneumoniae NOT DETECTED Normal NOT DETECTED [facility] Comment on above: Performed By: #### D RUGRPD #### [facility] [address] [place] [address] Christian Mikayla Coronavirus 229E NOT DETECTED Normal NOT DETECTED [facility] Comment on above: Performed By: #### D RUGRPD #### [facility] [address] [place] [address] Christian Mikayla Coronavirus HKU1 NOT DETECTED Normal NOT DETECTED [facility] Comment on above: Performed By: #### D RUGRPD #### [facility] [address] [place] [address] Christian Mikayla Coronavirus NL63 NOT DETECTED Normal NOT DETECTED [facility] Comment on above: Performed By: #### D RUGRPD #### [facility] [address] [place] [address] Christian Mikayla Coronavirus OC43 NOT DETECTED Normal NOT DETECTED [facility] Comment on above: Performed By: #### D RUGRPD #### [facility] [address] [place] [address] Christian Mikayla Influenza A H1 2009 NOT DETECTED Normal NOT DETECTED [facility] Comment on above: Performed By: #### D RUGRPD #### [facility] [address] [address] Christian Mikayla Influenza B NOT DETECTED Normal NOT DETECTED [facility] Comment on above: Performed By: #### D RUGRPD #### [facility] [address] [address] Christian Mikayla Metapneumovirus NOT DETECTED Normal NOT DETECTED [facility] Comment on above: Performed By: #### D RUGRPD #### [facility] [address] [address] Christian Mikayla Mycoplas. Pneumoniae NOT DETECTED Normal NOT DETECTED [facility] Comment on above: Performed By: #### D RUGRPD #### [facility] [address] [place] [address] Christian Mikayla Parainfluenza 1 NOT DETECTED Normal NOT DETECTED [facility] Comment on above: Performed By: #### D RUGRPD #### [facility] [address] [place] [address] Christian Mikayla Parainfluenza 2 NOT DETECTED Normal NOT DETECTED [facility] Comment on above: Performed By: #### D RUGRPD #### [facility] [address] [place] [address] Christian Mikayla Parainfluenza 3 NOT DETECTED Normal NOT DETECTED [facility] Comment on above: Performed By: #### D RUGRPD #### [facility] [address] [place] [address] Christian Mikayla Parainfluenza 4 NOT DETECTED Normal NOT DETECTED [facility] Comment on above: Performed By: #### D RUGRPD #### [facility] [address] [place] [address] Christian Mikayla Rhino/Enterovirus NOT DETECTED Normal NOT DETECTED [facility] Comment on above: Performed By: #### D RUGRPD #### [facility] [address] [place] [address] Christian Mikayla RP2 Header 1 RESPIRATORY PANEL: VIRUSES Normal [facility] Comment on above: Performed By: #### D RUGRPD #### [facility] [address] [place] [address] Christian Degroot RP2 Header 2 RESPIRATORY PANEL: BACTERIA Normal [facility] Comment on above: Performed By: #### D RUGRPD #### [facility] [address] [place] [address] Christian Degroot RP2 Header 4 EUA SEE BELOW Normal [facility] Comment on above: Result Comment: This test is not yet approved or cleared by the [place] FDA. When there are no FDA-approved or cleared tests available, and other criteria are met, FDA can make tests available under an emergency access mechanism called an Emergency Use Authorization (EUA). The EUA for this test is supported by the Configuration Management Consultant of Health and Human Service?s (HHS?s) declaration [...] used). Performed By: #### D RUGRPD #### [facility] [address] [place] [address] Christian Degroot RSV NOT DETECTED Normal NOT DETECTED [facility] Comment on above: Performed By: #### D RUGRPD #### [facility] [address] [place] [address] Christian Degroot SARS-CoV-2: COVID-19 NOT DETECTED Normal NOT DETECTED [facility] Comment on above: Performed By: #### D RUGRPD #### [facility] [address] [place] [address] Christian Degroot TROPONIN - Ion 03-06-2020 Troponin I.cardiac [Mass/Vol] 0.016 ng/mL Normal <=0.[address] [facility] Comment on above: Performed By: #### T ROP, CMP #### [facility] [address] [place] [address] Christian Degroot Troponin I.cardiac [Mass/Vol] SEE BELOW Normal [facility] Comment on above: Result Comment: <0.0 34 ng/ml NEGATIVE 0.034-0.119 INDETERMINATE 0.120 AMI CUT OFF Performed By: #### T ROP, CMP #### [facility] [address] [id number] Christian eDgroot XR CHEST 1 Von 03-06-2020 XR CHEST [...] FELA SMITH Date: 2020-03-06 15:[address] [facility] CT 3D CERVICAL SPINE WITH CO NTRASTon 04-27-2018 CT 3D [facility] [address] [place] [address] Patient Name: RAHEEM DUNCAN : 1970Sex: FAge: Race: WhiteMRN: [id number]. Location: 85Patient Status: OVisit #: [id number] Date: 04/10/2018 12:10:00 PMCompleted Date: 04/27/2018 10:58 AMRequesting Provider: MARY DIAL Attending Provider: MARY DIAL Report Copy To: ULYSSES RICHARDSON Signs & Symptoms: M54.12 Radiculopathy, cervical region [id number]: Nyla MYELOGRAM AUTH [id number] VALID 04/11/18-07/12/18 PER [facility] [id number] JYComments: Exam: CT 3D CERVICAL SPINE WITH CONTRASTAccession #: [id number] CT 3D CERVICAL SPINE WITH CONTRAST 04/27/2018 [...] findings. Electronically signed by:Oli Sanders. Transcribed by: [email or web address], User Resident: MANDEEP YOUNGElectronically Signed by: OLI SANDERS @ 04/27/2018 01:02 PMI personally read this/these film(s) with this resident Normal [facility] CT 3D LUMBAR SPINE W CONTRAS Ton 04-27-2018 CT 3D LUMBAR SPINE W CONTRAST [facility] [address] [id number] Patient Name: RAHEEM DUNCAN : 1970Sex: FAge: Race: WhiteMRN: [id number]. Location: 85Patient Status: DVisit #: [id number] Date: 04/10/2018 12:10:00 PMCompleted Date: 04/27/2018 10:59 AMRequesting Provider: MARY DIAL Attending Provider: MARY DIAL Report Copy To: ULYSSES RICHARDSON Signs & Symptoms: M54.16 Radiculopathy, lumbar region [id number]: Nyla MYELOGRAM AUTH [id number] VALID 04/11/18-07/12/18 PER [facility] [id number] JYComments: Exam: CT 3D LUMBAR SPINE W CONTRASTAccession #: [id number] CT 3D LUMBAR SPINE W CONTRAST 04/27/2018 [...] findings. Electronically signed by:Martínez Skelton. Transcribed by: [email or web address], User Resident: MANDEEP YOUNGElectronically Signed by: MARTÍNEZ SKELTON @ 04/27/2018 05:36 PMI personally read this/these film(s) with this resident Normal [facility] ENTIRE MYELOGRAMon 8 ENTIRE MYELOGRAM [facility] [address] [place] [address] Patient Name: RAHEEM DUNCAN : 1970Sex: FAge: Race: WhiteMRN: [id number]. Location: 85Patient Status: OVisit #: [id number] Date: 04/10/2018 12:10:00 PMCompleted Date: 04/27/2018 10:19 AMRequesting Provider: MARY DIAL Attending Provider: MARY DIAL Report Copy To: ULYSSES RICHARDSON Signs & Symptoms: M54.16 Radiculopathy, lumbar region [id number]: [place] CT MYELOGRAMComments: , , , Ordering Provider - MARY DIAL MD , Exam: ENTIRE MYELOGRAMAccession #: [id number] ENTIRE MYELOGRAM 04/27/2018 10:19 AM EST SIGNS [...] and risks are acceptable. Consent was obtained. Timeout:[place] protocol timeout verification performed. PROCEDURE:Estimated blood loss:None [...] Approved by:Mandeep Young on 04/27/2018 11:26 AM EST. I, Oli Sanders, have reviewed the images and report and concur with these findings. Electronically signed by:Oli Sanders. Transcribed by: [email or web address], User Resident: MANDEEP YOUNGElectronically Signed by: OLI SANDERS @ 04/27/2018 01:01 PMI personally read this/these film(s) with this resident Normal [facility] Comment on above: Order Comment: , , = ========= , Ordering Provider - MARY DIAL MD , Ta 02-20-2018 CNPN Telephone (JOYCELYN) -------RAHEEM DUNCAN ([id number]) 1970 FDate Time Provider Jjwrdukjef14/8/18 MAGED MURDOCK During your visit today, we recorded the following information about you:Jacinta Philippe [facility] Patient Service Spec 02/20/2018 8:05 AM SignedPt [...] from his care.Please call her back at [phone].Elysia Montoya Psr 02/22/2018 8:37 AM SignedPlease fax letter over to [phone].Clint [place] LPN 02/27/2018 10:18 AM SignedSpoke with patient and she wanted to know if knew of a physician inthe area that she lived that could do the ketamine infusion.I explained most likely he would not have this information she would need tocheck around in her area with other pain providers to see if they do theinfusions. She said she found one in the [place] area but they want money upfront and [...] Status:Closed by MAGED MURDOCK MD on 02/28/18 [facility] CNOVon 02-10-2018 CNOV Office Visit (PAINCC) -------RAHEEM DUNCAN ([id number]) 1970 FDate Time Provider Department02/10/18 10:45 AM MAGED MUDROCK During your visit today, we recorded the following information about you: Pulse Respiration Blood pressure Weight 80/minute 16/minute 132/47 69.9 kgJosenjourdan Murdock MD 02/11/2018 1:30 PM AddendumSUBJECTIVE:The patient presents to [facility] Pain Management Department for afollow-up appointment [...] [facility]Imaging results in scanned documents [...] other than HPI.Data scribed by above mentioned MA/ELEVATOR MECHANIC/RN/PA, and personally reviewed andverified by physician. Maged [...] treatment plan. Patient agreeswith above. Maged Murdock, [facility]2017Referring Provider: LINDSEY AGUILAR [[id number]]Allergies As of Date: 02/10/2018(No Known Allergies)Date Reviewed: [...] INVALID FOR* 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] INVALID FOR*Letter [facility]2017[address]aged [facility] [address] HospitalDepartment [facility] Pain [address] [place], [place] [phone] [phone] Suzanne M Bailey:Thank you for seeing me [...] any questions. Sincerely, Maged Murdock MDEncounter Number: [id number] Status:Closed by MAGED MURDOCK MD on 02/11/18 Normal [facility] PROGRESSon 02-10-2018 Protein mass conc HNO ID: [id number] thor: Maged Jolleyervice: (none)Author Type: PhysicianType: Progress NotesFiled: 02/11/2018 1:30 PMNote Text:SUBJECTIVE:The patient presents to [facility] Pain Management Departmentfor a follow-up appointment [...] other than HPI.Data scribed by above mentioned MA/ELEVATOR MECHANIC/RN/PA, and personally reviewed andverified by physician. Maged [...] treatment plan. Patientagrees with above. Maged Murdock, MDSeptember 2017 Normal [facility] CNOVon 01-10-2018 CNOV Office Visit (PAINCC) -------RAHEEM DUNCAN ([id number]) 1970 FDate Time Provider Department01/10/18 1:00 PM DEVANTE YAN ([facility]) PAIN During your visit today, we recorded the following information about you: Pulse Blood pressure Weight 85/minute 127/47 70.3 kgDevante Yan APRN.CNP 01/10/2018 2:13 PM SignedSUBJECTIVE:The patient presents to [facility] Pain Management Department for afollow-up appointment [...] and C4-C5 secondaryto DDDAnterior mechanical fusion of L1-2-4ULYRRT OF SYSTEMS:GENERAL: (-) weight loss, (+)malaise, (-)fevers.HEENT:(+)headache [...] other than HPI.Data scribed by above mentioned MA/ELEVATOR MECHANIC/RN/PA, and personally reviewed andverified by Devante Yan [...] resulting treatment plan. Patient agreeswith above.Devante Yan APRN.CNPAugust 2017Referring Provider: ULYSSES RICHARDSON JR [[id number]]Allergies As of Date: 01/10/2018(No Known Allergies)Date Reviewed: [...] INVALID FOR*Follow-up and Disposition History RecordedEncounter Number: [id number] Status:Closed by DEVANTE YAN CNP on 01/10/18 Normal [facility] PROGRESSon 01-09-2018 Protein mass conc HNO ID: [id number] thor: Devante Pereyra (Distribution Center Administrator) HillService: (none)Author Type: Nurse PractitionerType: Progress NotesFiled: 01/10/2018 2:13 PMNote Text:SUBJECTIVE:The patient presents to [facility] Pain Management Departmentfor a follow-up appointment [...] to moderate foraminal narrowing at C3-C4, and C4-X8uxhoazapl to DDDAnterior mechanical fusion of P0-4-4UDYHLW OF SYSTEMS:GENERAL: (-) weight loss, (+)malaise, (-)fevers.HEENT:(+)headache [...] other than HPI.Data scribed by above mentioned MA/ELEVATOR MECHANIC/RN/PA, and personally reviewed andverified by Devante Yan [...] resulting treatment plan. Patientagrees with above.Devante Yan APRN.CNPAugeorgiana 2017 Normal [facility] CNPNon 12-21-2017 CNPN Telephone ([facility]) -------RAHEEM DUNCAN ([id number]) 1970 FDate Time Provider Department12/21/17 MAGED MURDOCK During your visit today, we recorded the following information about you:Lorena Araiza 12/21/2017 10:31 AM AddendumPatient calling in to inquire if you have received MRI films from [facility].Please advisJacob Park LPN 12/22/2017 3:15 PM SignedSpoke with patient and informed her that we did receive the thoracic MRI whichwas normal.We did not receive the cervical MRI. She will call [facility] and have them refaxit.Kami Zheng Workleader 12/26/2017 9:53 AM SignedPatient called back in regards to below message. Patient would like to know ifwe have received the Cervical MRI as it was refaxed 12/22. Pleasereview.Clint Park LPN 12/26/2017 11:01 AM SignedSpoke to [facility] and they are refaxing it as I only received cover.Clint Park LPN 12/26/2017 11:[address]I will have Dr. Murdock review on when he is in office.Clint Park LPN 12/29/2017 4:31 PM SignedSpoke with patient and moved her appt with Devante Yan as said sheneeded office visit.Allergies As [...] Status:Closed by CLINT PARK LPN on 12/22/17 [facility] CNOVon 12-08-2017 CNOV Office Visit ([facility]) -------RAHEEM DUNCAN ([id number]) 1970 [facility] Time Provider Department12/08/17 1:30 PM MAGED MURDOCK During your visit today, we recorded the following information about you: Pulse Respiration Blood pressure Weight 62/minute 16/minute 105/40 68.9 kgMaged Murdock MD 12/08/2017 6:06 PM SignedReferring Or Consulting Physician:Lindsey Aguilar, [id number] [facility] [address] [place] [id number] COMPLAINT: pain in my neck, shoulders, thoracic [...] yesCracking by a chiropractor: no?Imaging Studies:MRi cervical //16Segmentation anomaly C2-3C3 to C6 disc-osteophyte complexfacet arthropathyT5 [...] Number of children: 0Occupational 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 Maged [...] also during rena-operative period. we dont have hrhg-sqwurno-esljqjmg for disability, likely to hamper rapid recovery [...] she did have severe postprocedure pain in [facility] handsDirect patient care time spent: [...] above via electronicrecord, fax, or mail.Maged Murdock MDluis 2017Referring Provider: LINDSEY AGUILAR [[id number]]Allergies As of Date: 12/08/2017(No Known Allergies)Date Reviewed: 12/08/2017Reviewed by: Kayla Sparks ELEVATOR MECHANIC - Fully AssessedReason for Visit: New Patient [172]Primary Visit Diagnosis:Facet syndrome (HCC) [M46.90] Other Visit Diagnoses:Pain in thoracic spine [M54.6] Radiculopathy, cervical region [M54.12] Vitamin D deficiency [E55.9] Localized swelling, mass and lump, trunk [R22.2] Cervical post-laminectomy syndrome [M96.1] Cervical spondylosis without myelopathy [M47.812] Current smoker [F17.200] Malaise and fatigue [R53.81, R53.83] Spinal stenosis of cervical region [M48.02]Order(s):C-REACTIVE PROTEIN (CRP) [SQCRP] Order #: [id number] FUTURE SED RATE WESTERGREN [SQWSR] Order #: [id number] FUTURE TSH BLD [SQTSH] Order #: [id number] FUTURE IRON + TIBC [SQIRON] Order #: [id number] FUTURE VITAMIN D 25 HYDROXY [SQVITD] Order #: [id number] FUTURE MRI THORACIC SPINE WO/W IVCON [[id number]] Order #: [id number] FUTURE iv contrast (will be provided with [...] EachRfl: 0 MRI CERVICAL SPINE WO IVCON [[id number]] Order #: [id number] FUTUREPrescriptions as of 12/08/2017 Sig: OXCARBAZEPINE 150 [...] discontinue is not on file.Letter TextJuly 2017Maged Murdock [facility] [id number] [place], [place] [id number] [phone] Suzanne M Bailey:Thank you for seeing me [...] medications for the issues above, and [facility]. Afterthat, further testing could be done to get to the bottom of your problems.Please call with any questions. Sincerely, Maged Murdock MDEncounter Number: [id number] Status:Closed by MAGED MURDOCK MD on 12/08/17 Normal [facility] PROGRESSon 12-08-2017 Protein mass conc HNO ID: [id number] thor: Maged Jolleyervice: (none)Author Type: PhysicianType: Progress NotesFiled: 12/08/2017 6:06 PMNote Text:Referring Or Consulting Physician:Lindsey Aguilar, PA[address] [place] [id number] COMPLAINT: pain in my neck, shoulders, thoracic [...] yesCracking by a chiropractor: no?Imaging Studies:MRi cervical 08/17/16Segmentation anomaly C2-3C3 to C6 disc-osteophyte complexfacet arthropathyT5 hemangioma vs. metastasisNM Bone scan (2015)no abnormal uptake at T5EMG (10/2017) [place] [facility] [...] Number of children: 0Occupational 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 Maged [...] she did have severepost procedure pain in [facility] handsDirect patient care time spent: [...] record, fax, or mail.Aishwarya Joyner 2017 Normal [facility] Encounters Encounter Date Encounter Type Care Provider Facility Start: 08-22-2023 End: 08-23-2023 ambulatory ULYSSES RICHARDSON [facility] Start: 08-15-2023 [facility] Start: 07-18-2023 End: 08-15-2023 ambulatory JADEN [facility] Start: 03-06-2020 End: 03-07-2020 Patient encounter procedure PEREZ LESTER Facility: Start: 04-27-2018 End: 04-28-2018 Patient encounter procedure PROVIDER UNKNOWN Facility:[facility] Start: 02-10-2018 End: 02-13-2018 Patient encounter MAGED MURDOCK [facility] Start: 01-10-2018 End: 01-11-2018 Patient encounter DEVANTE Pereyra CNP [facility] Start: 12-08-2017 End: 12-09-2017 Patient encounter MAGED MURDOCK [facility] Procedures Date Procedure Procedure Detail Performing Clinician Start: 03-06-2020 End: 03-06-2020 Microscopic examination of blood, culture PEREZ LESTER Comment on above: Performed By: #### D RUGRPD #### [facility] [address] [place] [address] Christian Mikayla Payers Date Payer Category Payer Unknown [id number] 1970 Unknown [id number] 2.16.8 [id number] 1970 Unknown [id number] 2.16.84 [id number] 1970 Unknown [id number] 2.16.8 [id number] 1969 Unknown [id number] 2.16.8 [id number] 1969 Unknown [id number] 2.16.8 [id number] 1959 Unknown [id number] Unknown [id number] Summary Purpose Family History No Family History Records FoundNo Family History Records FoundNo Family History Records FoundNo Family History Records Found Advance Directives No Advanced Directives Records FoundNo Advanced Directives Records FoundNo Advanced Directives Records FoundNo Advanced Directives Records Found Additional Source Comments INFORMATION SOURCE (unrecogn ized section and content) DATE CREATED AUTHOR 04/03/2018 [facility] DATE CREATED AUTHOR AUTHOR'S ORGANIZ ATION 05/03/2018 [facility] DATE CREATED AUTHOR AUTHOR'S ORGANIZ ATION 04/09/2020 [facility] DATE CREATED AUTHOR AUTHOR'S ORGANIZ ATION 08/23/2023 [facility] FOR RECORDS PERTAINING TO PATIENTS WHO ARE [...] BE BASED ON THE PRIMARY CLINICAL RECORDS. [employer] provides no warranty or guarantee of the accuracy or completeness of information in this document.
== END 2023-08-31 10:29 | disposition home or self-care (01) ==
LOC: LAB 10:28
PROVIDERS: PCP Internal Medicine; Visit Provider Orthopaedic Surgery Orthopaedic Surgery of the Spine
DX: Z01.812 Encounter for preprocedural laboratory examination (principal); M48.02 Spinal stenosis, cervical region
CPT/HCPCS: 36415; 86850; 86900; 86901

== ENCOUNTER 2023-09-02 13:57 | Inpatient (IN) | payer OTHER, SELFPAY ==
[2023-08-17 11:38] VITALS: BP 138/78; PULSE 88; TEMP 36.4; O2SAT 97; BMI 37.2
[2023-09-02] VITALS (30 sets, daily range): BP systolic 89–126; BP diastolic 38–91; PULSE 61–81; TEMP 36.1–36.8; O2SAT 90–100; BMI 35.9; BMI 38.0
--- OUTSIDE RECORDS SUMMARY | 2023-09-02 08:09 | XMS_ITS | CCD ---
Author Organization [facility] Care Team Providers Care Senior Data Scientist Name Role Phone MAGED MURDOCK Unavailable Unavailable LINDSEY AGUILAR (PA) Unavailable Unavail able DEVANTE YAN (TRANSIT DEPARTMENT CLERK) Unavailable UnavailULYSSES Phillips JR Unavailable Unavail able [...] Primary Care Unavailable ULYSSES RICHARDSON Referring Unavailable ULYSSES RICHARDSON Primary Care Unavailable Allergies Allergy Classification Reported [...] Anion gap [Moles/Vol] 8 mmol/L Normal 5-15 [facility] Comment on above: Performed By: #### E LEC #### [facility] ([id number]) [address] [place] [address] Chloride [Moles/Vol] 110 mmol/L High 98-109 [facility] Comment on above: Performed By: #### E LEC #### [facility] ([id number]) [address] [place] [address] CO2 [Moles/Vol] 23 mmol/L Normal 22-32 [facility] Comment on above: Performed By: #### E LEC #### [facility] ([id number]) [address] [place] [address] Potassium [Moles/Vol] 4.4 mmol/L Normal 3.5-5.0 [facility] Comment on above: Performed By: #### E LEC #### [facility] ([id number]) [address] [place] [address] Sodium [Moles/Vol] 141 mmol/L Normal 134-146 [facility] Comment on above: Performed By: #### E LEC #### [facility] ([id number]) [address] [place] [address] CARDIAC AZAR ADMITon 020 CK [Catalytic activity/Vol] 915 U/L Critically high 30-135 [facility] Comment on above: Result Comment: Test repeated. Critical value verified. Performed By: #### D JUNED #### [facility] [address], [place] [address] Christian Degroot CK.MB [Mass/Vol] 12.82 ng/mL Critically high <=2.37 [facility] Comment on above: Result Comment: Test repeated. Critical value verified. Performed By: #### D RUGRPD #### [facility] [address], [place] [address] Christian Santanaen INR Coag (Bld) [Relative time] SEE BELOW Normal [facility] Comment on above: Result Comment: <0.0 34 ng/ml NEGATIVE 0.034-0.119 INDETERMINATE 0.120 AMI CUT OFF Performed By: #### D RUGRPD #### [facility] [address], [place] [address] Christian Mikayla ÁNGEL 96.0 ng/mL Critically high <=61.5 The [facility] Comment on above: Performed By: #### D RUGRPD #### [facility] [address] [place] [address] Christian Mikayla TROP 0.028 ng/mL Normal <=0.034 [facility] Comment on above: Performed By: #### D RUGRPD #### [facility] [address] [place] [address] Christian Mikayla CK [Catalytic activity/Vol] 1282 U/L Critically high 30-135 [facility] Comment on above: Result Comment: Test repeated. Critical value verified. Performed By: #### T ROP, CMP #### [facility] [address] [place] [address] Christian Degroot CK.MB [Mass/Vol] 24.63 ng/mL Critically high <=2.37 [facility] Comment on above: Result Comment: Test repeated. Critical value verified. Performed By: #### T ROP, CMP #### [facility] [address] [place] [address] Christian Degroot INR Coag (Bld) [Relative time] SEE BELOW Normal [facility] Comment on above: Result Comment: <0.0 34 ng/ml NEGATIVE 0.034-0.119 INDETERMINATE 0.120 AMI CUT OFF Performed By: #### T ROP, CMP #### [facility] [address] [place] [address] Christian Mikayla ÁNGEL 235.0 ng/mL Critically high <=61.5 [facility] Comment on above: Performed By: #### T ROP, CMP #### [facility] [address] [place] [address] Christian Mikayla TROP 0.033 ng/mL Normal <=0.034 [facility] Comment on above: Performed By: #### T ROP, CMP #### [facility] [address] [place] [address] Christianvíctor Santanaen CBC AUTO DIFFon 03-07-2020 Basophils (Bld) [#/Vol] 0.0 103/ul Normal 0.0-0.1 [facility] Comment on above: Performed By: #### C BC #### [facility] [address] [place], [place] [address] Christian Mikayla Basophils/100 WBC (Bld) 0.1 % Critically low 0.2-2.0 [facility] Comment on above: Performed By: #### C BC #### [facility] [address] [place], [place] [address] Christian Mikayla Eosinophils (Bld) [#/Vol] 0.0 103/ul Normal 0.0-0.7 [facility] Comment on above: Performed By: #### C BC #### [facility] [address] [place], [place] [address] Christian Mikayla Eosinophils/100 WBC (Bld) 0.0 % Critically low 0.9-7.0 [facility] Comment on above: Performed By: #### C BC #### [facility] [address] [place] [address] Christian Mikayla Erythrocyte distribution width (RBC) [Ratio] 13.4 % Normal 11.0-15.0 [facility] Comment on above: Performed By: #### C BC #### [facility] [address] [place], [place] [address] Christian Mikayla Hematocrit (Bld) [Volume fraction] 35.4 % Critically low 36.0-48.0 [facility] Comment on above: Performed By: #### C BC #### [facility] [address] [place], [place] [address] Christian Mikayla Hemoglobin (Bld) [Mass/Vol] 11.4 g/dL Critically low 12.0-16.0 [facility] Comment on above: Performed By: #### C BC #### [facility] [address] [place] [address] Christian Mikayla IG # 0.07 10e3/ul Critically high 0.00-0.03 [facility] Comment on above: Performed By: #### C BC #### [facility] [address] [place] [address] Christian Mikayla IG % 0.4 % Normal 0.0-0.5 [facility] Comment on above: Performed By: #### C BC #### [facility] [address], [place] [address] Christian Mikayla Lymphocytes (Bld) [#/Vol] 1.1 103/ul Critically low 1.2-3.8 [facility] Comment on above: Performed By: #### C BC #### [facility] [address], [place] [address] Christian Mikayla Lymphocytes/100 WBC (Bld) 6.9 % Critically low 20.5-60.0 [facility] Comment on above: Performed By: #### C BC #### [facility] [address] [place], [place] [address] Christian Mikayla MANUAL DIFF REQ NO Normal [facility] Comment on above: Performed By: #### C BC #### [facility] [address] [place], [place] [address] Christian Mikayla MCH (RBC) [Entitic mass] 32.7 pg Normal 26.7-34.0 [facility] Comment on above: Performed By: #### C BC #### [facility] [address] [place], [place] [address] Christian Mikayla MCHC (RBC) [Mass/Vol] 32.2 g/dL Normal 29.9-35.2 [facility] Comment on above: Performed By: #### C BC #### [facility] [address] [place], [place] [address] Christian Mikayla MCV (RBC) [Entitic vol] 101.4 fL Critically high 81.0-99.0 [facility] Comment on above: Performed By: #### C BC #### [facility] [address] [place], [place] [address] Christian Mikayla Monocytes (Bld) [#/Vol] 1.4 103/ul Critically high 0.3-0.8 [facility] Comment on above: Performed By: #### C BC #### [facility] [address] [place] [address] Christian Mikayla Monocytes/100 WBC (Bld) 8.6 % Normal 1.7-12.0 [facility] Comment on above: Performed By: #### C BC #### [facility] [address], [place] [address] Christian Mikayla Neutrophils (Bld) [#/Vol] 13.4 103/ul Critically high 1.4-6.5 [facility] Comment on above: Performed By: #### C BC #### [facility] [address], [place] [address] Christian Mikayla Neutrophils/100 WBC (Bld) 84.0 % Critically high 43.0-75.0 [facility] Comment on above: Performed By: #### C BC #### [facility] [address] [place] [address] Christian Mikayla Platelet mean volume (Bld) [Entitic vol] 9.5 fL Normal 9.5-13.5 [facility] Comment on above: Performed By: #### C BC #### [facility] [address] [place] [address] Christian Mikayla Platelets (Bld) [#/Vol] 207 103/ul Normal 150-450 [facility] Comment on above: Performed By: #### C BC #### [facility] [address] [place] [address] Christian Mikayla RBC (Bld) [#/Vol] 3.49 106/ul Critically low 4.20-5.40 [facility] Comment on above: Performed By: #### C BC #### [facility] [address] [place] [address] Christian Mikayla WBC (Bld) [#/Vol] 16.0 103/ul Critically high 4.0-11.[address] [facility] Comment on above: Performed By: #### C BC #### [facility] [address] [place] [address] Christian Degroot PROF CHEM 8 (BAS METB)on Anion gap [Moles/Vol] 11.2 mmol/L Normal [facility] Comment on above: Performed By: #### D RUGRPD #### [facility] [address] [place] [address] Christian Mikayla Calcium [Mass/Vol] 8.3 mg/dL Critically low 8.4-10.2 [facility] Comment on above: Performed By: #### D RUGRPD #### [facility] [address] [place] [address] Christian Mikayla Chloride [Moles/Vol] 106 mmol/L Normal 98-107 [facility] Comment on above: Performed By: #### D RUGRPD #### [facility] [address] [place] [address] Christian Mikayla CO2 [Moles/Vol] 24.5 mmol/L Normal 22.0-30.0 [facility] Comment on above: Performed By: #### D RUGRPD #### [facility] [address] [place] [address] Christian Mikayla Creatinine [Mass/Vol] 0.53 mg/dL Normal 0.52-1.04 [facility] Comment on above: Performed By: #### D RUGRPD #### [facility] [address] [place] [address] Christian Mikayla EGFR-AF AFGHAN >60 Normal >=60 [facility] Comment on above: Performed By: #### D RUGRPD #### [facility] [address] [place], [place] [address] Christian Mikayla EGFR-NON AF AFGHAN >60 Normal >=60 [facility] Comment on above: Performed By: #### D RUGRPD #### [facility] [address] [address] Christian Mikayla Glucose [Mass/Vol] 113 mg/dL Critically high 74-[address] [facility] Comment on above: Performed By: #### D RUGRPD #### [facility] [address] [place], [place] [address] Christian Mikayla Potassium [Moles/Vol] 3.7 mmol/L Normal 3.4-5.0 [facility] Comment on above: Performed By: #### D RUGRPD #### [facility] [address] [address] Christian Mikayla Sodium [Moles/Vol] 138 mmol/L Normal 137-145 [facility] Comment on above: Performed By: #### D RUGRPD #### [facility] [address] [place], [place] [address] Christian Mikayla Urea nitrogen [Mass/Vol] 12.0 mg/dL Normal 7.0-17.0 [facility] Comment on above: Performed By: #### D RUGRPD #### [facility] [address] [place], [place] [address] Christian Mikayla Urea nitrogen/Creatinin e [Mass ratio] 22.6 mg/mg Normal [facility] Comment on above: Performed By: #### D RUGRPD #### [facility] [address] [place], [place] [address] Christian Mikayla CBC W MANUAL DIFFon 03-06-20 20 ATYPICAL LYMPH # Normal [facility] Comment on above: Performed By: #### D RUGRPD #### [facility] [address] [place], [place] [address] Christian Mikayla ATYPICAL LYMPH % Normal [facility] Comment on above: Performed By: #### D RUGRPD #### [facility] [address] [place] [address] Christian Mikayla BAND # Normal 0.0-0.3 [facility] Comment on above: Performed By: #### D RUGRPD #### [facility] [address] [place] [address] Christian Mikayla BAND % Normal 0-5 [facility] Comment on above: Performed By: #### D RUGRPD #### [facility] [address] [place] [address] Christian Mikayla BASOM # 0.00 103/ul Normal 0.00-0.10 [facility] Comment on above: Performed By: #### D RUGRPD #### [facility] [address] [place] [address] Christian Mikayla BASOM % 0.0 % Critically low 0.2-2.0 [facility] Comment on above: Performed By: #### D RUGRPD #### [facility] [address] [place], [place] [address] Christian Mikayla BLAST # Normal [facility] Comment on above: Performed By: #### D RUGRPD #### [facility] [address] [place] [address] Christian Mikayla BLAST % Normal [facility] Comment on above: Performed By: #### D RUGRPD #### [facility] [address] [place] [address] Christian Mikayla CORRECTED WBC Normal 4.0-11.0 [facility] Comment on above: Performed By: #### D RUGRPD #### [facility] [address] [place], [place] [address] Chritsian Mikayla Eosinophils (Bld) [#/Vol] 0.00 103/ul Normal 0.00-0.70 [facility] Comment on above: Performed By: #### D RUGRPD #### [facility] [address] [place], [place] [address] Christian Mikayla Eosinophils/100 WBC (Bld) 0.0 % Critically low 0.9-7.0 [facility] Comment on above: Performed By: #### D RUGRPD #### [facility] [address] [place], [place] [address] Christian Mikayla Erythrocyte distribution width (RBC) [Ratio] 13.2 % Normal 11.0-15.0 [facility] Comment on above: Performed By: #### D RUGRPD #### [facility] [address] [place], [place] [address] Christian Mikayla Hematocrit (Bld) [Volume fraction] 44.1 % Normal 36.0-48.0 [facility] Comment on above: Performed By: #### D RUGRPD #### [facility] [address] [place], [place] [address] Christian Mikayla Hemoglobin (Bld) [Mass/Vol] 13.9 g/dl Normal 12.0-16.0 [facility] Comment on above: Performed By: #### D RUGRPD #### [facility] [address] [place], [place] [address] Christian Mikayla LYMPHM # 0.26 103/ul Critically low 1.20-3.80 [facility] Comment on above: Performed By: #### D RUGRPD #### [facility] [address], [place] [address] Christian Mikayla LYMPHM% 1.0 % Critically low 20.5-60.0 [facility] Comment on above: Performed By: #### D RUGRPD #### [facility] [address] [address] Christian Degroot MCH (RBC) [Entitic mass] 32.6 pg Normal 26.7-34.0 [facility] Comment on above: Performed By: #### D RUGRPD #### [facility] [address] [address] Christianvíctor Degroot MCHC (RBC) [Mass/Vol] 31.5 g/dl Normal 29.9-35.2 [facility] Comment on above: Performed By: #### D RUGRPD #### [facility] [address] [address] Christian Degroot MCV (RBC) [Entitic vol] 103.3 fL Critically high 81.0-99.0 [facility] Comment on above: Performed By: #### Dwayne RUGRPD #### [facility] [address] [place], [place] [address] Christian Mikayla METAMYELOCYTE # Normal [facility] Comment on above: Performed By: #### D RUGRPD #### [facility] [address] [address] Christianvíctor Santanaen METAMYELOCYTE % Normal [facility] Comment on above: Performed By: #### D RUGRPD #### [facility] [address] [address] Christian Mikayla MONOM# 1.32 103/ul Critically high 0.30-0.80 [facility] Comment on above: Performed By: #### D RUGRPD #### [facility] [address] [address] Christian Mikayla MONOM% 5.0 % Normal 1.7-12.0 [facility] Comment on above: Performed By: #### D RUGRPD #### [facility] [address] [address] Christianvíctor Santanaen MYELOCYTE # Normal [facility] Comment on above: Performed By: #### D RUGRPD #### [facility] [address] [place], [place] [address] Christian Mikayla MYELOCYTE % Normal [facility] Comment on above: Performed By: #### D RUGRPD #### [facility] [address] [place], [place] [address] Christian Mikayla NRBC Normal [facility] Comment on above: Performed By: #### D RUGRPD #### [facility] [address] [place], [place] [address] Christian Mikayla Platelet mean volume (Bld) [Entitic vol] 9.6 fL Normal 9.5-13.5 [facility] Comment on above: Performed By: #### D RUGRPD #### [facility] [address] [place], [place] [address] Christian Mikayla Platelets (Bld) [#/Vol] 268 103/ul Normal 150-450 [facility] Comment on above: Performed By: #### D RUGRPD #### [facility] [address] [place], [place] [address] Christian Mikayla RBC (Bld) [#/Vol] 4.27 106/ul Normal 4.20-5.[address] [facility] Comment on above: Performed By: #### D RUGRPD #### [facility] [address] [place], [place] [address] Christian Mikayla SEG # 24.82 103/ul Critically high 1.40-6.50 [facility] Comment on above: Performed By: #### D RUGRPD #### [facility] [address] [place], [place] [address] Christian Mikayla Segmented neutrophils/100 WBC (Bld) 94.0 % Critically high 43.0-75.0 [facility] Comment on above: Performed By: #### D RUGRPD #### [facility] [address] [place], [place] [address] Christian Mikayla WBC (Bld) [#/Vol] 26.4 103/ul Critically high 4.0-11.0 [facility] Comment on above: Performed By: #### D RUGRPD #### [facility] [address] [place] [address] Christian Degroot CPKon 03-06-2020 CK [Catalytic activity/Vol] 464 U/L Critically high 30-135 [facility] Comment on above: Result Comment: test repeated critical value verified Performed By: #### C K #### [facility] [address], [place] [address] ABD/PELV W CONon 03-06-20 [...] MAT CASEY Date: 2020-03-06 18:45 Normal [facility] CT STROKE HEAD WOon 03-06-20 20 [...] MAT CASEY Date: 2020-03-06 16:31 Normal [facility] DRUG SCREEN RAPID (URINE)on 03-06-2020 AMP Positive Normal NEGATIVE [facility] Comment on above: Performed By: #### D RUGRPD #### [facility] [address] [place] [address] Christian Mikayla BAR Negative Normal NEGATIVE [facility] Comment on above: Performed By: #### D RUGRPD #### [facility] [address] [place] [address] Christian Mikayla BUP Negative Normal NEGATIVE [facility] Comment on above: Performed By: #### D RUGRPD #### [facility] [address] [place] [address] Christian Mikayla BZO Negative Normal NEGATIVE [facility] Comment on above: Performed By: #### D RUGRPD #### [facility] [address] [address] Christian Mikayla RITCHIE Negative Normal NEGATIVE [facility] Comment on above: Performed By: #### D RUGRPD #### [facility] [address] [place] [address] Christian Mikayla CUT-OFFS SEE BELOW Normal [facility] Comment on above: Result Comment: AMP [...] ng/mL Performed By: #### D RUGRPD #### [facility] [address] [place] [address] DRUG CUT HEADER DRUG CLASS TEST SYST EM CUT-OFF CONCENTRATIONS ARE FOLLOWS: Normal [facility] Comment on above: Performed By: #### D RUGRPD #### [facility] [address] [place] [address] Christian Mikayla mAMP Negative Normal NEGATIVE [facility] Comment on above: Performed By: #### D RUGRPD #### [facility] [address] [place] [address] Christian Mikayla MTD Negative Normal NEGATIVE [facility] Comment on above: Performed By: #### D RUGRPD #### [facility] [address] [place] [address] Christian Mikayla OPI Positive Normal NEGATIVE [facility] Comment on above: Performed By: #### D RUGRPD #### [facility] [address] [place] [address] Christian Mikayla OXY Negative Normal NEGATIVE [facility] Comment on above: Performed By: #### D RUGRPD #### [facility] [address] [place] [address] Mikayla PCP Negative Normal NEGATIVE [facility] Comment on above: Performed By: #### D RUGRPD #### [facility] [address] [place] [address] [facility] Normal NEGATIVE [facility] Comment on above: Performed By: #### D RUGRPD #### [facility] [address] [place] [address] Christian Mikayla TCA Negative Normal NEGATIVE [facility] Comment on above: Performed By: #### D RUGRPD #### [facility] [address] [place] [address] Christian Mikayla THC Negative Normal NEGATIVE [facility] Comment on above: Performed By: #### D RUGRPD #### [facility] [address] [place], [place] [address] Christian Mikayla ER URINE PROFILEon 0 Bilirubin [Mass/Vol] Negative Normal NEGATIVE [facility] Comment on above: Performed By: #### E RUR #### [facility] [address] [place] [address] Christian Mikayla BLOOD Negative Normal NEGATIVE [facility] Comment on above: Performed By: #### E RUR #### [facility] [address] [place] [address] Christian Mikayla Clarity (U) CLEAR Normal [facility] Comment on above: Performed By: #### E RUR #### [facility] [address] [place] [address] Christian Mikayla Color (U) YELLOW Normal YELLOW [facility] Comment on above: Performed By: #### E RUR #### [facility] [address] [place] [address] Christian Mikayla ERUAHD A micrscopic examina tion will be performed if indicated. Normal [facility] Comment on above: Performed By: #### E RUR #### [facility] [address] [place] [address] Christian Mikayla Glucose [Mass/Vol] Negative Normal NEGATIVE The [facility] Comment on above: Performed By: #### E RUR #### [facility] [address] [place], [place] [address] Christian Mikayla Ketones Ql (U) Negative Normal NEGATIVE [facility] Comment on above: Performed By: #### E RUR #### [facility] [address] [place] [address] Christian Mikayla Nitrite Ql (U) Negative Normal NEGATIVE [facility] Comment on above: Performed By: #### E RUR #### [facility] [address] [place], [place] [address] Christian Mikayla pH (Bld) 6.0 Normal 5-9 [facility] Comment on above: Performed By: #### E RUR #### [facility] [address] [place] [address] Christian Mikayla Protein (U) [Mass/Vol] TRACE Normal [facility] Comment on above: Performed By: #### E RUR #### [facility] [address] [place] [address] Christian Mikayla SPEC GRAVITY >=1.030 Normal 1.005-<=1.02 5 [facility] Comment on above: Performed By: #### E RUR #### [facility] [address] [place] [address] Christianvíctor Degroot UR MICRO IND NOT INDICATED Normal The [facility] Comment on above: Performed By: #### E RUR #### [facility] [address] [place] [address] Christianvíctor Degroot Urobilinogen Qn (U) 0.2 EU/dl Normal [facility] Comment on above: Performed By: #### E RUR #### [facility] [address] [place] [address] Christianvíctor Degroot WBC (Bld) [#/Vol] Negative Normal NEGATIVE The [facility] Comment on above: Performed By: #### E RUR #### [facility] [address] [place], [place] [id number] Christian Mikayla ETHANOL (BLD ALC)on 03-06-20 20 Ethanol [Mass/Vol] NOTE: 80 mg/dl is th e legal limit for a blood alcohol level Normal [facility] Comment on above: Performed By: #### E TH #### [facility] [address] [place], [place] [address] Christian Mikayla Ethanol [Mass/Vol] mg/dL Normal The [facility] Comment on above: Performed By: #### E TH #### [facility] [address] [place], [place] [address] Christian Mikayla HEMOGRAM AND PLATELon 2019 WBC (Bld) [#/Vol] 23.5 103/ul Critically high 4.0-11.[address] [facility] Comment on above: Performed By: #### H H #### [facility] [address] [place] [address] Christian Degroot LACTATE/LACTIC ACIDon 2019 Lactate [Moles/Vol] 0.7 mmol/L Normal 0.7-2.0 [facility] Comment on above: Performed By: #### L ACT #### [facility] [address] [place] [address] Christian Degroot MYOGLOBINon 03-06-2020 Myoglobin [Mass/Vol] 918.0 ng/mL Critically high <=61.5 [facility] Comment on above: Result Comment: test repeated critical value verified Performed By: #### M YO #### [facility] [address] [place] [address] Christian Degroot POINT OF CARE GLUCOSEon 02-14 Glucose [Mass/Vol] 117 mg/dL Critically high 74-[address] [facility] Comment on above: Performed By: #### D RUGRPD #### [facility] [address] [place] [address] Christian Degroot PROF 14(COMP METB)on 020 Albumin [Mass/Vol] 3.3 g/dL Critically low 3.5-5.0 [facility] Comment on above: Performed By: #### T BLAYNE CMP #### [facility] [address] [place] [address] Christian Degroot Albumin/Globulin [Mass ratio] 1.1 {ratio} Normal [facility] Comment on above: Performed By: #### T BLAYNE, CMP #### [facility] [address] [place] [address] Christian Degroot ALP [Catalytic activity/Vol] 69 U/L Normal 38-126 [facility] Comment on above: Performed By: #### T BLAYNE CMP #### [facility] [address] [place], [place] [address] Christian Mikayla ALT [Catalytic activity/Vol] 30 U/L Normal 9-52 [facility] Comment on above: Performed By: #### T ROP, CMP #### [facility] [address] [id number] Christian Mikayla Anion gap [Moles/Vol] 16.8 mmol/L Normal [facility] Comment on above: Performed By: #### T ROP, CMP #### [facility] [address] [address] Christian Mikayla AST [Catalytic activity/Vol] 29 U/L Normal 14-36 [facility] Comment on above: Performed By: #### T ROP, CMP #### [facility] [address] [address] Christian Mikayla Bilirubin Ql (U) 0.4 mg/dL Normal 0.2-1.3 [facility] Comment on above: Performed By: #### T ROP, CMP #### [facility] [address] [address] Christian Mikayla Calcium [Mass/Vol] 8.7 mg/dL Normal 8.4-10.[address] [facility] Comment on above: Performed By: #### T ROP, CMP #### [facility] [address] [place] [address] Christian Mikayla Chloride [Moles/Vol] 104 mmol/L Normal 98-107 [facility] Comment on above: Performed By: #### T ROP, CMP #### [facility] [address] [address] Christian Mikayla CO2 [Moles/Vol] 22.6 mmol/L Normal 22.0-30.0 [facility] Comment on above: Performed By: #### T ROP, CMP #### [facility] [address] [place], [place] [address] Christian Mikayla Creatinine [Mass/Vol] 0.92 mg/dL Normal 0.52-1.04 [facility] Comment on above: Performed By: #### T ROP, CMP #### [facility] [address] [id number] Christian Mikayla EGFR-AF AFGHAN >60 Normal >=60 [facility] Comment on above: Performed By: #### T ROP, CMP #### [facility] [address] [address] Christian Mikayla EGFR-NON AF AFGHAN >60 Normal >=60 [facility] Comment on above: Performed By: #### T ROP, CMP #### [facility] [address] [id number] Christian Mikayla Globulin (S) [Mass/Vol] 3.0 g/dL Normal [facility] Comment on above: Performed By: #### T ROP, CMP #### [facility] [address] [address] Christian Mikayla Glucose [Mass/Vol] 130 mg/dL Critically high 74-[address] [facility] Comment on above: Performed By: #### T ROP, CMP #### [facility] [address] [address] Christian Mikayla Potassium [Moles/Vol] 4.4 mmol/L Normal 3.4-5.0 [facility] Comment on above: Performed By: #### T ROP, CMP #### [facility] [address] [address] Christian Mikayla Protein [Mass/Vol] 6.3 g/dL Normal 6.1-8.2 [facility] Comment on above: Performed By: #### T ROP, CMP #### [facility] [address] [address] Christian Mikayla Sodium [Moles/Vol] 139 mmol/L Normal 137-[address] [facility] Comment on above: Performed By: #### T ROP, CMP #### [facility] [address] [address] Christian Mikayla Urea nitrogen [Mass/Vol] 18.0 mg/dL Critically high 7.0-17.0 [facility] Comment on above: Performed By: #### T ROP, CMP #### [facility] [address] [address] Christian Mikayla Urea nitrogen/Creatinin e [Mass ratio] 19.6 mg/mg Normal [facility] Comment on above: Performed By: #### T ROP, CMP #### [facility] [address] [place] [address] Christian Mikayla RESPIRATORY PANEL PLUSon Adenovirus NOT DETECTED Normal NOT DETECTED The [facility] Comment on above: Performed By: #### D RUGRPD #### [facility] [address] [place] [address] Christian Mikayla B. Parapertusis NOT DETECTED Normal NOT DETECTED [facility] Comment on above: Performed By: #### D RUGRPD #### [facility] [address] [place] [address] Christian Mikayla B. Pertussis NOT DETECTED Normal NOT DETECTED The [facility] Comment on above: Performed By: #### D RUGRPD #### [facility] [address] [place] [address] Christian Mikayla Chlamydia Pneumoniae NOT DETECTED Normal NOT DETECTED [facility] Comment on above: Performed By: #### D RUGRPD #### [facility] [address] [place] [address] Christian Mikayla Coronavirus 229E NOT DETECTED Normal NOT DETECTED [facility] Comment on above: Performed By: #### D RUGRPD #### [facility] [address] [place] [address] Christian Mikayla Coronavirus HKU1 NOT DETECTED Normal NOT DETECTED [facility] Comment on above: Performed By: #### D RUGRPD #### [facility] [address] [place] [address] Christian Mikayla Coronavirus NL63 NOT DETECTED Normal NOT DETECTED [facility] Comment on above: Performed By: #### D RUGRPD #### [facility] [address] [place] [address] Christian Mikayla Coronavirus OC43 NOT DETECTED Normal NOT DETECTED [facility] Comment on above: Performed By: #### D RUGRPD #### [facility] [address] [place] [address] Christian Mikayla Influenza A H1 2009 NOT DETECTED Normal NOT DETECTED [facility] Comment on above: Performed By: #### D RUGRPD #### [facility] [address] [address] Christian Mikayla Influenza B NOT DETECTED Normal NOT DETECTED [facility] Comment on above: Performed By: #### D RUGRPD #### [facility] [address] [address] Christian Mikayla Metapneumovirus NOT DETECTED Normal NOT DETECTED The [facility] Comment on above: Performed By: #### D RUGRPD #### [facility] [address] [address] Christian Mikayla Mycoplas. Pneumoniae NOT DETECTED Normal NOT DETECTED [facility] Comment on above: Performed By: #### D RUGRPD #### [facility] [address] [place] [address] Christian Mikayla Parainfluenza 1 NOT DETECTED Normal NOT DETECTED [facility] Comment on above: Performed By: #### D RUGRPD #### [facility] [address] [place] [address] Christian Mikayla Parainfluenza 2 NOT DETECTED Normal NOT DETECTED [facility] Comment on above: Performed By: #### D RUGRPD #### [facility] [address] [place] [address] Christian Mikayla Parainfluenza 3 NOT DETECTED Normal NOT DETECTED [facility] Comment on above: Performed By: #### D RUGRPD #### [facility] [address] [place] [address] Christian Mikayla Parainfluenza 4 NOT DETECTED Normal NOT DETECTED [facility] Comment on above: Performed By: #### D RUGRPD #### [facility] [address] [place] [address] Christian Mikayla Rhino/Enterovirus NOT DETECTED Normal NOT DETECTED [facility] Comment on above: Performed By: #### D RUGRPD #### [facility] [address] [place] [address] Christian Mikayla RP2 Header 1 RESPIRATORY PANEL: VIRUSES Normal [facility] Comment on above: Performed By: #### D RUGRPD #### [facility] [address] [place] [address] Christian Degroot RP2 Header 2 RESPIRATORY PANEL: BACTERIA Normal [facility] Comment on above: Performed By: #### D RUGRPD #### [facility] [address] [place] [address] Christian Degroot RP2 Header 4 EUA SEE BELOW Normal [facility] Comment on above: Result Comment: This test is not yet approved or cleared by the [place] FDA. When there are no FDA-approved or cleared tests available, and other criteria are met, FDA can make tests available under an emergency access mechanism called an Emergency Use Authorization (EUA). The EUA for this test is supported by the [employer] of Health and Human Service?s (HHS?s) declaration [...] used). Performed By: #### D RUGRPD #### [facility] [address] [place] [address] Christian Degroot RSV NOT DETECTED Normal NOT DETECTED [facility] Comment on above: Performed By: #### D RUGRPD #### [facility] [address] [place] [address] Christian Degroot SARS-CoV-2: COVID-19 NOT DETECTED Normal NOT DETECTED [facility] Comment on above: Performed By: #### D RUGRPD #### [facility] [address] [place] [address] Christian Degroot TROPONIN - Ion 03-06-2020 Troponin I.cardiac [Mass/Vol] 0.016 ng/mL Normal <=0.034 [facility] Comment on above: Performed By: #### T ROP, CMP #### [facility] [address] [place] [address] Christian Degroot Troponin I.cardiac [Mass/Vol] SEE BELOW Normal [facility] Comment on above: Result Comment: <0.0 34 ng/ml NEGATIVE 0.034-0.119 INDETERMINATE 0.120 AMI CUT OFF Performed By: #### T ROP, CMP #### [facility] [address] [address] Christian Degroot XR CHEST 1 Von 03-06-2020 [...] FELA SMITH Date: 2020-03-06 15:07 Normal [facility] CT 3D CERVICAL SPINE WITH CO NTRASTon 04-27-2018 CT 3D CERVICAL SPINE WITH CONTRAST [facility] [place] [address] Patient Name: RAHEEM DUNCAN : 1970Sex: FAge: Race: WhiteMRN: [id number]. Location: 85Patient Status: OVisit #: [id number] Date: 04/10/2018 12:10:00 PMCompleted Date: 04/27/2018 10:58 AMRequesting Provider: MARY DIAL Attending Provider: MARY DIAL Report Copy To: ULYSSES RICHARDSON Signs & Symptoms: M54.12 Radiculopathy, cervical region X86Hjenckv: Nyla MYELOGRAM AUTH [id number] VALID 04/11/18-07/12/18 PER [facility] [id number] JYComments: Exam: CT 3D CERVICAL SPINE WITH CONTRASTAccession #: [id number] CT 3D CERVICAL SPINE WITH CONTRAST 04/27/2018 [...] findings. Electronically signed by:Oli Sanders. Transcribed by: [email or web address], User Resident: MANDEEP YOUNGElectronically Signed by: OLI SANDERS @ 04/27/2018 01:02 PMI personally read this/these film(s) with this resident Normal [facility] CT 3D LUMBAR SPINE W CONTRAS Ton 04-27-2018 CT 3D LUMBAR SPINE W CONTRAST [facility] [address] [id number] Patient Name: RAHEEM DUNCAN : 1970Sex: FAge: Race: WhiteMRN: [id number]. Location: 85Patient Status: DVisit #: [id number] Date: 04/10/2018 12:10:00 PMCompleted Date: 04/27/2018 10:59 AMRequesting Provider: MARY DIAL Attending Provider: MARY DIAL Report Copy To: ULYSSES RICHARDSON Signs & Symptoms: M54.16 Radiculopathy, lumbar region M42Mhsylgz: Nyla MYELOGRAM AUTH [id number] VALID 04/11/18-07/12/18 PER [facility] [id number] JYComments: Exam: CT 3D LUMBAR SPINE W CONTRASTAccession #: [id number] CT 3D LUMBAR SPINE W CONTRAST 04/27/2018 [...] findings. Electronically signed by:Martínez Skelton. Transcribed by: [email or web address], User Resident: MANDEEP YOUNGElectronically Signed by: MARTÍNEZ SKELTON @ 04/27/2018 05:36 PMI personally read this/these film(s) with this resident Normal [facility] ENTIRE MYELOGRAMon 8 ENTIRE MYELOGRAM [facility] Npexxmmqa[address] [place] [address] Patient Name: RAHEEM DUNCAN : 1970Sex: FAge: Race: WhiteMRN: [id number]. Location: 85Patient Status: OVisit #: [id number] Date: 04/10/2018 12:10:00 PMCompleted Date: 04/27/2018 10:19 AMRequesting Provider: MARY DIAL Attending Provider: MARY DIAL Report Copy To: ULYSSES RICHARSDON Signs & Symptoms: M54.16 Radiculopathy, lumbar region E54Bczfjda: [place] MYELOGRAMComments: , , , Ordering Provider - MARY DIAL MD , Exam: ENTIRE MYELOGRAMAccession #: [id number] ENTIRE MYELOGRAM 04/27/2018 10:19 AM EST SIGNS [...] and risks are acceptable. Consent was obtained. Timeout:[place] protocol timeout verification performed. PROCEDURE:Estimated blood loss:None [...] findings. Electronically signed by:Oli Sanders. Transcribed by: [email or web address], User Resident: MANDEEP YOUNGElectronically Signed by: OLI SANDERS @ 04/27/2018 01:01 PMI personally read this/these film(s) with this resident Normal [facility] Comment on above: Order Comment: , , = ========= , Ordering Provider - MARY DIAL MD , Ta 02-20-2018 CNPN Telephone (JOYCELYN) -------RAHEEM DUNCAN ([id number]) 1970 FDate Time Provider Pidbehftts38/8/18 MAGED MURDOCK During your visit today, we recorded the following information about you:Jacinta Philippe [facility] Patient Service Spec 02/20/2018 8:05 AM [...] from his care.Please call her back at [phone].Elysia Montoya Psr 02/22/2018 8:37 AM SignedPlease fax letter over to [phone].Clint [place] LPN 02/27/2018 10:18 AM SignedSpoke [...] She said she found one in the [place] but they want money upfront and [...] Status:Closed by MAGED MURDOCK MD on 02/28/18 [facility] CNOVon 02-10-2018 CNOV Office Visit ([facility]IN[facility]) -------RAHEEM DUNCAN ([id number]) 1970 FDate Time Provider Department02/10/18 10:45 AM MAGED MURDOCK During your visit today, we recorded the following information about you: Pulse Respiration Blood pressure Weight 80/minute 16/minute 132/47 69.9 kgJosenjourdan Murdock MD 02/11/2018 1:30 PM AddendumSUBJECTIVE:The patient presents to [facility] Management Department for afollow-up appointment [...] [facility]Imaging results in scanned documents [...] other than HPI.Data scribed by above mentioned MA/FREIGHT HUSTLER/RN/PA, and personally reviewed andverified by physician. Maged [...] treatment plan. Patient agreeswith above. Maged Murdock, [facility]2017Referring Provider: LINDSEY AGUILAR [[id number]]Allergies As of Date: 02/10/2018(No Known Allergies)Date Reviewed: [...] INVALID FOR* 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] INVALID FOR*Letter [facility]2017Maged MurdockGalion [facility] HospitalDepartment of Pain [address] [place], [place] [phone] [phone] Suzanne M Bailey:Thank you for seeing me [...] any questions. Sincerely, Maged Murdock MDEncounter Number: [id number] Status:Closed by MAGED MURDOCK MD on 02/11/18 Normal [facility] PROGRESSon 02-10-2018 Protein mass conc HNO ID: [id number] thor: Maged Jolleyervice: (none)Author Type: PhysicianType: Progress NotesFiled: 02/11/2018 1:30 PMNote Text:SUBJECTIVE:The patient presents to [facility] Pain Management Departmentfor a follow-up appointment [...] other than HPI.Data scribed by above mentioned MA/FREIGHT HUSTLER/RN/PA, and personally reviewed andverified by physician. Maged [...] with above. Maged Murdock, MDSeptember 2017 Normal [facility] CNOVon 01-10-2018 CNOV Office Visit (PAINCC) -------RAHEEM DUNCAN ([id number]) 1970 FDate Time Provider Department01/10/18 1:00 PM DEVANTE YAN ([facility]) PAIN During your visit today, we recorded the following information about you: Pulse Blood pressure Weight 85/minute 127/47 70.3 kgDevante Yan APRN.CNP 01/10/2018 2:13 PM SignedSUBJECTIVE:The patient presents to [facility] Management Department for afollow-up appointment [...] and C4-C5 secondaryto DDDAnterior mechanical fusion of V9-8-4XTTBRY OF SYSTEMS:GENERAL: (-) weight loss, (+)malaise, (-)fevers.HEENT:(+)headache [...] other than HPI.Data scribed by above mentioned MA/FREIGHT HUSTLER/RN/PA, and personally reviewed andverified by Devante Yan [...] Yan APRN.CNPAugust 2017Referring Provider: ULYSSES RICHARDSON JR [[id number]]Allergies As of Date: 01/10/2018(No Known Allergies)Date Reviewed: [...] INVALID FOR*Follow-up and Disposition History RecordedEncounter Number: [id number] Status:Closed by DEVANTE YAN CNP on 01/10/18 Normal [facility] PROGRESSon 01-09-2018 Protein mass conc HNO ID: [id number] thor: Devante Pereyra (Resident Surgeon) HillService: (none)Author Type: Nurse PractitionerType: Progress NotesFiled: 01/10/2018 2:13 PMNote Text:SUBJECTIVE:The patient presents to [facility] Management Departmentfor a follow-up appointment [...] to moderate foraminal narrowing at C3-C4, and C4-B5hiffwecwg to DDDAnterior mechanical fusion of G5-5-5XPVWLW OF SYSTEMS:GENERAL: (-) weight loss, (+)malaise, (-)fevers.HEENT:(+)headache [...] other than HPI.Data scribed by above mentioned MA/FREIGHT HUSTLER/RN/PA, and personally reviewed andverified by Devante Yan [...] Patientagrees with above.Devante Yan APRN.CNPAugeorgiana 2017 Normal [facility] CNPNon 12-21-2017 CNPN Telephone ([facility]) -------RAHEEM DUNCAN ([id number]) 1970 FDate Time Provider Department12/21/17 MAGED MURDOCK During your visit today, we recorded the following information about you:Lorena Araiza 12/21/2017 10:31 AM AddendumPatient calling in to inquire if you have received MRI films from [facility].Please advisJacob Park LPN 12/22/2017 3:15 PM SignedSpoke with patient and informed her that we did receive the thoracic MRI whichwas normal.We did not receive the cervical MRI. She will call [facility] and have them refaxit.Kami Zheng Workleader 12/26/2017 9:53 AM SignedPatient called back in regards to below message. Patient would like to know ifwe have received the Cervical MRI as it was refaxed 12/22. Pleasereview.Clint Park LPN 12/26/2017 11:01 AM SignedSpoke to [facility] and they are refaxing it as I only received cover.Clint Park LPN 12/26/2017 11:[address] have Dr. Murdock review on when he is in office.Clint Park LPN 12/29/2017 4:31 PM SignedSpoke with patient and moved her appt with Dveante Yan as said sheneeded office visit.Allergies As [...] Status:Closed by CLINT PARK LPN on 12/22/17 [facility] CNOVon 12-08-2017 CNOV Office Visit ([facility]) -------RAHEEM DUNCAN ([id number]) 1970 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 Maged [...] also during rena-operative period. we dont have hpeu-mwmsxlr-bmdzyvjd for disability, likely to hamper rapid recovery [...] she did have severe postprocedure pain in [place] [facility] handsDirect patient care time spent: [...] mail.Maged Murdock MDluis 2017Referring Provider: LINDSEY AGUILAR [[id number]]Allergies As of Date: 12/08/2017(No Known Allergies)Date Reviewed: 12/08/2017Reviewed by: Kayla Sparks FREIGHT HUSTLER - Fully AssessedReason for Visit: New Patient [172]Primary Visit Diagnosis:Facet syndrome (HCC) [M46.90] Other Visit Diagnoses:Pain in thoracic spine [M54.6] Radiculopathy, cervical region [M54.12] Vitamin D deficiency [E55.9] Localized swelling, mass and lump, trunk [R22.2] Cervical post-laminectomy syndrome [M96.1] Cervical spondylosis without myelopathy [M47.812] Current smoker [F17.200] Malaise and fatigue [R53.81, R53.83] Spinal stenosis of cervical region [M48.02]Order(s):C-REACTIVE PROTEIN (CRP) [SQCRP] Order #: [id number] FUTURE SED RATE WESTERGREN [SQWSR] Order #: [id number] FUTURE TSH BLD [SQTSH] Order #: [id number] FUTURE IRON + TIBC [SQIRON] Order #: [id number] FUTURE VITAMIN D 25 HYDROXY [SQVITD] Order #: [id number] FUTURE MRI THORACIC SPINE WO/W IVCON [0676331] Order #: [id number] FUTURE iv contrast (will be provided with [...] EachRfl: 0 MRI CERVICAL SPINE WO IVCON [8120289] Order #: [id number] FUTUREPrescriptions as of 12/08/2017 Sig: OXCARBAZEPINE 150 [...] is not on file.Letter TextJuly 2017Maged Murdock [facility] [address]vtg[address] [place], [place] [phone] [phone] Suzanne M Bailey:Thank you for seeing me [...] medications for the issues above, [facility] next [facility]. Afterthat, further testing could be done to get to the bottom of your problems.Please call with any questions. 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 Maged [...] she did have severepost procedure pain in [place] [facility] patient care time spent: [...] record, fax, or mail.Aishwarya Joyner 2017 Normal [facility] Encounters Encounter Date Encounter Type Care Provider Facility Start: 08-22-2023 End: 08-23-2023 ambulatory ULYSSES RICHARDSON [facility] Start: 08-15-2023 [facility] Start: 07-18-2023 End: 08-15-2023 ambulatory JADEN [facility] Start: 03-06-2020 End: 03-07-2020 Patient encounter procedure PEREZ LESTER Facility: Start: 04-27-2018 End: 04-28-2018 Patient encounter procedure PROVIDER UNKNOWN Facility:[facility] Start: 02-10-2018 End: 02-13-2018 Patient encounter MAGED MURDOCK [facility] Start: 01-10-2018 End: 01-11-2018 Patient encounter DEVANTE Pereyra CNP [facility] Start: 12-08-2017 End: 12-09-2017 Patient encounter MAGED MURDOCK [facility] Procedures Date Procedure Procedure Detail Performing Clinician Start: 03-06-2020 End: 03-06-2020 Microscopic examination of blood, culture PEREZ LESTER Comment on above: Performed By: #### D RUGRPD #### [facility] [address] [place] [address] Christian Mikayla Payers Date Payer Category Payer Unknown [id number] 1970 Unknown [id number] [id number] 1970 Unknown [id number] 1970 Unknown [id number] [id number] [id number] 1970 Unknown [id number] 2.16.8 [id number] 1970 Unknown [id number] 2.16.8 [id number] 1960 Unknown [id number] Unknown [id number] Summary Purpose Family History No Family History Records FoundNo Family History Records FoundNo Family History Records FoundNo Family History Records Found Advance Directives No Advanced Directives Records FoundNo Advanced Directives Records FoundNo Advanced Directives Records FoundNo Advanced Directives Records Found Additional Source Comments INFORMATION SOURCE (unrecogn ized section and content) DATE CREATED AUTHOR 04/03/2018 [facility] DATE CREATED AUTHOR AUTHOR'S ORGANIZ ATION 05/03/2018 [facility] DATE CREATED AUTHOR AUTHOR'S ORGANIZ ATION 04/09/[address] [facility] DATE CREATED AUTHOR AUTHOR'S ORGANIZ ATION 08/23/2023 [facility] FOR RECORDS PERTAINING TO PATIENTS WHO [...] BE BASED ON THE PRIMARY CLINICAL RECORDS. [employer] provides no warranty or guarantee of the accuracy or completeness of information in this document.
[2023-09-02 08:21] LABS: Basophils Percent Auto 0.4 % (0.2-2.0); Eosinophils Absolute Auto 0.2 10^3/uL (0.0-0.7); Eosinophils Percent Auto 1.7 % (0.9-7.0); Hemoglobin 14.6 g/dL (12.0-16.0); Immature Granulocytes Abs Auto 0.04 10^3/uL (0.00-0.03); Immature Granulocytes Pct Auto 0.4 % (0.0-0.5); Lymphocytes Absolute Auto 3.3 10^3/uL (1.2-3.8); Lymphocytes Percent Auto 30.7 % (20.5-60.0); Mean Corpuscular HGB Conc 32.4 g/dL (29.9-35.2); Mean Corpuscular Hemoglobin 32.4 pg (26.7-34.0); Mean Platelet Volume 9.7 fL (9.5-13.5); Monocytes Absolute Auto 0.7 10^3/uL (0.3-0.8); Monocytes Percent Auto 6.4 % (1.7-12.0); Neutrophils Absolute Auto 6.6 10^3/uL (1.4-6.5); Neutrophils Percent Auto 60.4 % (43.0-75.0); Platelet Count 232 10^3/uL (150-450); Red Cell Distribution Width 13.9 % (11.0-15.0); White Blood Count 10.8 10^3/uL (4.0-11.0)
[2023-09-02 08:34] LABS: Anion Gap 13.8; BUN Creatinine Ratio 13.9; Calcium 9.6 mg/dL (8.5-10.1); Carbon Dioxide 24.6 mmol/L (21.0-32.0); Chloride 107 mmol/L (98-107); Estimated GFR (African America >60 (>=60); Estimated GFR (Non-African Ame >60 (>=60); Glucose 81 mg/dL (74-106); Potassium 4.4 mmol/L (3.5-5.1); Sodium 141 mmol/L (136-145)
[2023-09-02] MEDS: LACTATED RINGER'S SOLUTION 1,000 ML 50 ML IV ×2 (08:44→11:31)
[2023-09-02] MEDS: FAMOTIDINE/PF 20 MG/2 ML VIAL IV (09:11)
[2023-09-02] MEDS: CELECOXIB 200 MG CAPSULE PO (09:11)
[2023-09-02] MEDS: METHADONE HCL 10 MG TABLET PO (09:13)
[2023-09-02] MEDS: CEFAZOLIN SODIUM/DEXTROSE,ISO 2 GM/50 ML PIGGYBACK IV ×2 (09:59→18:18)
[2023-09-02] MEDS: VANCOMYCIN HCL 1,000 MG VIAL 1000 MG TOPICAL (12:10)
--- NOTE | 2023-09-02 12:25 | FL_ITS ---
[address] [address] Patient Name: RAHEEM DUNCAN MRN: [id number] date: 1970 Sex: F Assigned Patient Location: SURGOUT Current Patient Location: [place] Accession/Order Number: [id number] Exam Date: 09/02/2023 12:00 Report Date: 09/05/2023 14:02 At the request of: RADHA GARLAND Procedure: FL fluoroscopy <1hr NON-READ EXAM: FL fluoroscopy <1hr NON-READ HISTORY: TECHNIQUE: FINDINGS: Please see Operative Report. Electronically authenticated by: RADIOLOGIST NO Date: 09/05/2023 14:02
--- NOTE | 2023-09-02 12:25 | XR_ITS ---
[address] [address] Patient Name: RAHEEM DUNCAN MRN: [id number] date: 1970 Sex: F Assigned Patient Location: SURGOUT Current Patient Location: [place] Accession/Order Number: [id number] Exam Date: 09/02/2023 10:30 Report Date: 09/04/2023 05:32 At the request of: RADHA GARLAND Procedure: XR lumbar spine 2-3V EXAMINATION: XR lumbar spine 2-3V HISTORY: L3-4 Decompression with fusion COMPARISON: XR lumbar spine 07/15/2023 FINDINGS: BONES: Single intraoperative lateral view of the lumbar spine shows a metallic pointer directed at L3 vertebral body. XR/XR lumbar spine 2-3V IMPRESSION: 1. Intraoperative identification of L3. Electronically authenticated by: MAGDALENA WILL Date: 09/04/2023 05:32
[2023-09-02] MEDS: 0.9 % SODIUM CHLORIDE 10 ML VIAL INJ (12:40)
[2023-09-02] MEDS: BUPIVACAINE LIPOSOME/PF 266 MG/13.3 ML VIAL INJ (12:41)
[2023-09-02] MEDS: TRIAMCINOLONE ACETONIDE 40 MG/ML VIAL 80 MG INJ (12:48)
--- NOTE | 2023-09-02 13:02 | SWNOTE1 ---
JERZY reached out to Brandon, director of PACU in regards to discharge planning for pt. She spoke to Dr. Pineda earlier and pt may need home health set up for removal of hemavac (SINDHU drain). SW to look in to pt's insurance and get home health set. [facility] was able to get family for SW to speak to. JERZY spoke to emily, pt's mother, and pt's father. SW let them know home health would be helpful for the removal of SINDHU drain, they voiced understanding. JERZY advised family that JERZY is not sure what company takes pt's insurance which is [employer]. They voiced understanding and did not have a preference on home health. JERZY reached out to [facility], waiting to hear back.
[2023-09-02] MEDS: HYDROMORPHONE HCL 1 MG/ML CARTRIDGE INJ (13:15)
--- NOTE | 2023-09-02 13:17 | SWNOTE1 ---
SW sent face sheet to [facility] as well, SW received call back and [facility] does not accept that insurance.
[2023-09-02] MEDS: HYDROMORPHONE HCL 0.5 MG/0.5 ML SYRINGE IV ×3 (13:22→13:32)
[2023-09-02 13:32] LABS: Hematocrit 41.1 % (36.0-48.0)
[2023-09-02] MEDS: 0.9 % SODIUM CHLORIDE 1,000 ML 125 ML IV (13:33)
[2023-09-02 13:42] LABS: Anion Gap 12.8; BUN Creatinine Ratio 17.2; Calcium 8.7 mg/dL (8.5-10.1); Carbon Dioxide 22.2 mmol/L (21.0-32.0); Chloride 108 mmol/L (98-107); Estimated GFR (African America >60 (>=60); Estimated GFR (Non-African Ame >60 (>=60); Glucose 113 mg/dL (74-106); Sodium 139 mmol/L (136-145)
[2023-09-02] MEDS: CYCLOBENZAPRINE HCL 10 MG TABLET PO (13:43)
--- NOTE | 2023-09-02 13:43 | W.PM.OPNOTE ---
Surgery Operative Note Operative Note Procedure Date: 09/02/23 Time Out Performed: yes Pre-op Diagnosis: L3-4 degenerative disc disease and disc herniation with stenosis and radiculopathy Post-op Diagnosis: same as pre-op Procedures performed: 1. ?L3-4 bilateral laminectomy, partial medial facetectomies and foraminotomies of L3 and L4 nerve roots 2. ?L3-4 posterior spinal fusion. 3. ?L3-4 posterior spinal instrumentation, Cortera, SurgAlign instrumentation. 4. ?Use of local autograft bone and 24cc BioAdapt Bridge DBM Anesthesia: MATTHEWA Primary Surgeon: Nicole Pineda Complications: Durotomy Estimated blood loss (mL): 200 Findings: stenosis Specimens: none Drains: Hemovac drain Indications for Procedures: This is a 53-year-old female with refractory back and leg pain from degenerative disc disease and lumbar stenosis from L3-4. ?Patient has failed full conservative therapy including medication management and physician directed home exercises. Due to the persistence of symptoms and reduction in the ADLs, patient elected surgical treatment.?Patient, therefore, understood indications for the surgery as well as its risks, benefits, and alternatives. ?These risks include but are not limited to paralysis, infection, hematoma, dural tear, nerve root injury, nonunion, DVT/PE, stroke, CT, etc. ?All questions were answered. Informed consent was obtained. Detailed description of Procedure: OPERATIVE PROCEDURE: ?The patient was taken to the operating room by the Anesthesiology Service and had satisfatory general anesthesia.?A first-generation cephalosporin was given within 1 hour of surgical incision. ?2 gm of cefazolin was given IV. ?Venous thromboembolic prophylaxis was performed with sequential devices. ?The patient was then positioned prone on a standard OSI frame with the abdomen hanging free and all bony prominences well padded. ?The low back was then prepped and draped in its entirety in the usual sterile fashion. Before incision, a formal timeout was taken per protocol. We next took a midline longitudinal approach and performed subperiosteal dissection out to the tips of the transverse processes of L3 and L4.?Intraoperative radiographic localization of level was confirmed. ?We then began the laminectomy as well as decompression by removing the spinous process of L3. ?We entered the spinal canal, resecting the ligamentum flavum in its entirety over this region. Patient had significant stenosis in the lateral recess and neural foramina.?Partial medial facetectomy was then performed with an osteotome to get lateral to the facet overhang, but just medial to the pedicles and nerve roots. ?Kerrison's were then used to perform foraminotomies of the L3 and L4 nerve roots bilaterally.? ?In this way, we completed decompression at L3-4 with foraminotomies of the L3 and L4 nerve roots bilaterally.? A small-poke hole durotomy occurred during decompression. This was tightly repaired using a 5-0 Prolene. Water tight seal achieved, Satisfied with this, we then turned our attention to perform spinal instrumentation and posterolateral fusion. Using anatomic landmarks and guided by direct visualization of the pedicles from within the canal, pedicle screws were placed bilaterally at L3 and L4. ?All the screws were completely interosseous as determined by bony palpation. ?Before the screws were inserted, the transverse processes were decorticated with a high-speed bur at L3 and L4. ?Local autograft bone was placed over the decorticated elements bilaterally from L3-4. ?Bio Adapt Bridge was placed on top of this for extra graft bulk. ?The screws were then inserted which were under tapped by 1 mm. ?Two rods were placed from L3-4, set screws engaged and tightened down to their final torque. ?One CrossLink was used. ?Everything was tightened down. ?A very rigid construct was achieved. ?Final x-ray was taken, demonstrated good position of the spine and all of the implants. Satisfied with this, we then achieved hemostasis. ?We then copiously irrigated the wound. ?We then inserted a Hemovac drain through a separate stab incision. ?The wound was then closed in layer with interrupted 1 and 2-0 Vicryl sutures and dusted with vancomycin powder. ?A 3-0 Monocryl was used for the skin. The skin edges were sealed with Dermabond. ?A dry sterile dressing was applied. ?The patient was then returned to the hospital bed, extubated, and taken to the recovery room in stable condition. Spinal cord monitoring remained stable throughout the operation. FRAME CATCHER: Jeffrey Perez PA-C, assisted throughout the procedure with positioning, draping, retraction, wound closure, and dressing application. POSTOPERATIVE CARE: ?The patient will be recovered in PACU and then a regular nursing floor. ??Once the drainage is low and pain is under control, patient will be discharged home per clinical indication. Patient will follow up in the office in 6 weeks. ?At that time, AP and lateral x-rays of the lumbar spine will be obtained to assess instrumentation and fusion. MODIFIER 22: ?Obesity BMI of 35.9. Due to the patient's BMI greater than 30, modifier 22 will be applied due to the patient's case taking 50% longer due to poor visualization and orientation. Paint Mixer Hand: Jeffrey Perez
[2023-09-02] MEDS: MEPERIDINE HCL/PF 25 MG/ML VIAL IVP (13:45)
--- NOTE | 2023-09-02 14:32 | SWNOTE1 ---
SW received call back from [facility], they are not able to accept at this time due to having to run pt's insurance through a 3rd libertarian and they will not have an answer until 5-7 days. [facility] was able to tell SW that pt's plan was actually U[employer]. SW called [facility] and they would have to run benefits. JERZY sent over face sheet and insurance card.
--- NOTE | 2023-09-02 15:26 | SWNOTE1 ---
JERZY called [facility] and spoke to Carmella, she is just waiting to hear back from there business office to see if they can accept.
--- NOTE | 2023-09-02 16:07 | SWNOTE1 ---
SW and case managment went in room to speak with emily and pt's mother. Updated in regards to care for hemovac and that nursing will educate. SW will follow up on Tuesday in regards to the home health and will contact pt.
[2023-09-02] MEDS: SENNOSIDES/DOCUSATE SODIUM 1 TAB TABLET PO (20:33)
[2023-09-02] MEDS: ATORVASTATIN CALCIUM 20 MG TABLET PO (22:10)
[2023-09-03] MEDS: 0.9 % SODIUM CHLORIDE 1,000 ML 125 ML IV ×3 (00:24→16:43)
[2023-09-03] MEDS: CEFAZOLIN SODIUM/DEXTROSE,ISO 2 GM/50 ML PIGGYBACK IV (01:39)
[2023-09-03] MEDS: OXYCODONE HCL 5 MG TABLET PO ×3 (01:42→17:53)
[2023-09-03 04:00] VITALS: BP 126/78; PULSE 78; TEMP 36.7; O2SAT 95
[2023-09-03] MEDS: DEXAMETHASONE SOD PHOS 4 MG/ML VIAL 8 MG IV ×3 (04:34→21:23)
[2023-09-03] MEDS: ONDANSETRON PF 4 MG/2 ML VIAL IV (04:34)
--- NOTE | 2023-09-03 05:17 | PC.NURSE ---
0400- RN rounded on patient. Pt was sleeping and RN woke patient for vital signs and emptied drain. Pt stated she had a headache and the pain meds at 0144 did not help. However, when RN reassessed her pain after the medication was administered, patient was asleep again. pt stated she had a headache at the front and back of her head that was throbbing. Pt also stated that her left foot felt like it was asleep and numb. RN called and talked to Jeffrey RICO. He ordered Decadron 8mg IV Q8H x3 doses. pt also began complaining of nausea. When RN went back into the patient room to administer medications, the patient was twisting in the bed complaining and crying in pain. Pt was educated on the importance of proper body alignment and the reason she needed to lie flat until the surgeon could come in to see her. pt stated, I don't care I just need something for my headache. RN re-emphasized the importance of proper body alignment. Decadron and PRN Zofran were then administered per order. 0430- While administering Zofran the patient vomited all over her self and the bed linens. Pt was cleaned and linens changed with the help of 3 RNs to log roll patient. Pt was then given a warm cloth for her head per her request. 0500- pt began yelling out that she needed a new hot cloth and needed someone to massage her head. RN went into pt room and she requested to be put into a coma to be taken out of her pain. RN explained that was not going to happen this morning and encouraged her to use imagery to remove herself from constantly thinking about the pain. 0510- RN got a warm cloth for the patient head and upon walking into the room the patient was asleep.
[2023-09-03 08:33] VITALS: BP 124/74; PULSE 78; TEMP 36.9; O2SAT 93
[2023-09-03] MEDS: BISACODYL 5 MG TABLET PO (08:47)
[2023-09-03] MEDS: POLYETHYLENE GLYCOL 3350 17 GM POWDER PACKET PO (08:47)
[2023-09-03] MEDS: DULOXETINE HCL 60 MG CAPSULE.DR PO (08:47)
[2023-09-03] MEDS: SENNOSIDES/DOCUSATE SODIUM 1 TAB TABLET PO ×2 (08:47→21:23)
[2023-09-03 12:04] VITALS: BP 136/75; PULSE 78; TEMP 37.1; O2SAT 91
[2023-09-03 17:14] VITALS: BP 135/70; PULSE 81; TEMP 36.9; O2SAT 90
--- NOTE | 2023-09-03 18:58 | PC.NURSE ---
1820- RN in pt room to round and pt was resting on her left side and twisting her back. RN educated the importance of laying flat on her back and not twisting or turning her back after surgery. Pt was not receptive to education and the family member in the room told the patient to get off her side. The patient then turned so she was lying on her back. RN emphasized the importance of proper body alignment to patient and her family. Pt then stated that laying flat on her back was not comfortable and expressed that she did not want to lay on her back anymore.
--- NOTE | 2023-09-03 19:06 | PC.NURSE ---
1839- RN called Jeffrey RICO with concerns that no doctor has come to check on the patient today when in report RN was told that the surgeon, Dr. Pineda was going to round on the patient post op. Jeffrey stated that he would call Dr. Pineda and find out who is going to be following up with the patient. Jeffrey RICO called the RN back and stated the surgeon stated that the hospitalist should be following up with the patient while she was in the hospital. Telephone order was given to RN to consult the hospitalist. With it being after hours the PA was notified that the hospitalist will not be able to see the patient until Tuesday morning. Jeffrey stated that he would be available throughout the night if we needed to contact the doctor for any reason. He also clarified that the hemovac was still not to have any compression and to empty it every 8 hours for a baseline output. RN also notified Jeffrey RICO that the patient was non-compliant with staying flat on her back and continued to turn on her side and twist as well. Jeffrey stated that it is not ideal, but she could stay on her side as long as her back is still straight, but they do not want her twisting her back and it is important to keep the bed completely flat.
[2023-09-03 19:39] VITALS: BP 118/62; PULSE 82; TEMP 36.8; O2SAT 92
[2023-09-03] MEDS: ATORVASTATIN CALCIUM 20 MG TABLET PO (21:23)
[2023-09-04] VITALS: BP 113/67; PULSE 74; TEMP 36.6; O2SAT 92
[2023-09-04] MEDS: 0.9 % SODIUM CHLORIDE 1,000 ML 125 ML IV ×2 (00:41→08:35)
[2023-09-04 03:50] VITALS: BP 101/65; PULSE 82; TEMP 36.4; O2SAT 91
[2023-09-04] MEDS: OMEPRAZOLE 40 MG CAPSULE.DR PO (05:39)
[2023-09-04] MEDS: OXYCODONE HCL 5 MG TABLET PO (05:39)
[2023-09-04 08:30] VITALS: BP 123/67; PULSE 76; TEMP 37.2; O2SAT 92
[2023-09-04] MEDS: BISACODYL 5 MG TABLET PO (08:34)
[2023-09-04] MEDS: POLYETHYLENE GLYCOL 3350 17 GM POWDER PACKET PO (08:34)
[2023-09-04] MEDS: DULOXETINE HCL 60 MG CAPSULE.DR PO (08:34)
[2023-09-04] MEDS: SENNOSIDES/DOCUSATE SODIUM 1 TAB TABLET PO ×2 (08:35→20:54)
--- NOTE | 2023-09-04 09:08 | P.PN_ITS ---
Progress Note: Subjective Subjective Interval history: Patient is a 53 y.o female who is post operative day #2 from a L3-L4 laminectomy, fusion and bone graft. Her case is complicated by obesity and chronic pain that is managed by a intrathecal Dilaudid pump. She has been laying flat since surgery. This morning she complains about a frontal headache, sensitivity to light and sounds, some nausea. She was given some pepsi to drink. Her appetite has been limited. Dr. Hester told nursing to pull Hemovac pump/d rain today. She has had limited output. She remains afebrile. Her pain has been controlled with oxycodone and her pain pump. Patient reports she wants to go home. no other issues or complaints today. Exam Narrative Exam Narrative: General: Patient is alert, and oriented to person, place and time with normal affect, proper hygiene Skin: no visible rashes, or ulcers Head: atraumatic, acephalic Eyes: PERRLA, no nystagmus present, conjunctiva clear, no scleral icterus Ears: normal gross auditory acuity Heart: Normal rate and rhythm, no murmurs/rubs/gallops Lungs: no audible wheezes, crackles and normal breath sounds all lung smith Musculoskeletal: no swelling bilateral lower extremities Neuro: CN II-X grossly intact Constitutional Vital Signs, click to edit/add: Last Vital Signs Temp 99.0 F 09/04/23 08:30 Pulse 76 09/04/23 08:30 Resp 18 09/04/23 08:30 BP 123/67 09/04/23 08:30 Pulse Ox 92 L 09/04/23 08:30 O2 Del Method Room Air 09/04/23 08:30 O2 Flow Rate 2 09/02/23 23:55 Progress Note: A&P Assessment and Plan (1) Post-operative pain: Assessment and Plan: Defer post op pain to primary team. (2) Headache: Assessment and Plan: will place on Fioricet, normal BP Qualifiers: Headache type: unspecified Headache chronicity pattern: acute headache Intractability: intractable Qualified Code(s): R51.9 - Headache, unspecified (3) Depression: Assessment and Plan: continue cymbalta (4) GERD (gastroesophageal reflux disease): Assessment and Plan: continue PPI (5) Neuropathy: Assessment and Plan: continue gabapentin. (6) Leukocytosis: Assessment and Plan: most likely steroid induced given doses of decadron. afebrile, will monitor. Plan Discharge planning per primary surgical team. Add fioricet today for migraine headache, vitals and labs stable.
[2023-09-04 09:43] LABS: Basophils Percent Auto 0.1 % (0.2-2.0); Hematocrit 35.3 % (36.0-48.0); Hemoglobin 11.6 g/dL (12.0-16.0); Immature Granulocytes Pct Auto 0.5 % (0.0-0.5); Lymphocytes Absolute Auto 1.3 10^3/uL (1.2-3.8); Lymphocytes Percent Auto 6.1 % (20.5-60.0); Mean Corpuscular HGB Conc 32.9 g/dL (29.9-35.2); Mean Corpuscular Volume 100.6 fL (81.0-99.0); Mean Platelet Volume 9.8 fL (9.5-13.5); Monocytes Percent Auto 4.8 % (1.7-12.0); Neutrophils Absolute Auto 18.4 10^3/uL (1.4-6.5); Neutrophils Percent Auto 88.5 % (43.0-75.0); Platelet Count 219 10^3/uL (150-450); Red Blood Count 3.51 10^6/uL (4.20-5.40); Red Cell Distribution Width 14.1 % (11.0-15.0); White Blood Count 20.8 10^3/uL (4.0-11.0)
[2023-09-04 09:52] LABS: Alanine Aminotransferase 24 U/L (14-59); Albumin Globulin Ratio 0.8; Albumin Level 2.5 g/dL (3.4-5.0); Alkaline Phosphatase 60 U/L (46-116); Aspartate Amino Transferase 33 U/L (15-37); BUN Creatinine Ratio 16.4; Bilirubin Total 0.3 mg/dL (0.2-1.0); Calcium 8.2 mg/dL (8.5-10.1); Carbon Dioxide 24.8 mmol/L (21.0-32.0); Chloride 109 mmol/L (98-107); Estimated GFR (African America >60 (>=60); Estimated GFR (Non-African Ame >60 (>=60); Glucose 110 mg/dL (74-106); Potassium 3.8 mmol/L (3.5-5.1); Sodium 144 mmol/L (136-145); Total Protein 5.5 g/dL (6.4-8.2)
[2023-09-04 12:00] VITALS: BP 164/80; PULSE 79; TEMP 37.1; O2SAT 90
[2023-09-04] MEDS: BUTALB/ACETAMINOPHEN/CAFFEINE 50-325-40MG TABLET 1 TAB PO ×2 (12:04→16:23)
[2023-09-04 15:59] VITALS: BP 108/62; PULSE 73; TEMP 36.8; O2SAT 92
[2023-09-04 19:58] VITALS: BP 122/74; PULSE 75; TEMP 36.9; O2SAT 94
[2023-09-04] MEDS: GABAPENTIN ENACARBIL 600 MG 600 EACH PO (20:53)
[2023-09-04] MEDS: ATORVASTATIN CALCIUM 20 MG TABLET PO (21:00)
[2023-09-05 00:01] VITALS: BP 95/52; PULSE 77; TEMP 37.2; O2SAT 90
[2023-09-05] MEDS: OXYCODONE HCL 5 MG TABLET PO ×2 (03:10→13:33)
[2023-09-05 04:34] VITALS: BP 113/70; PULSE 74; TEMP 36.7; O2SAT 94
[2023-09-05 05:01] LABS: Basophils Percent Auto 0.1 % (0.2-2.0); Eosinophils Percent Auto 0.1 % (0.9-7.0); Hematocrit 34.5 % (36.0-48.0); Hemoglobin 10.9 g/dL (12.0-16.0); Immature Granulocytes Abs Auto 0.07 10^3/uL (0.00-0.03); Immature Granulocytes Pct Auto 0.5 % (0.0-0.5); Lymphocytes Absolute Auto 2.4 10^3/uL (1.2-3.8); Lymphocytes Percent Auto 15.4 % (20.5-60.0); Mean Corpuscular HGB Conc 31.6 g/dL (29.9-35.2); Mean Corpuscular Hemoglobin 32.4 pg (26.7-34.0); Mean Corpuscular Volume 102.7 fL (81.0-99.0); Mean Platelet Volume 9.7 fL (9.5-13.5); Monocytes Absolute Auto 1.1 10^3/uL (0.3-0.8); Monocytes Percent Auto 6.8 % (1.7-12.0); Neutrophils Absolute Auto 11.9 10^3/uL (1.4-6.5); Neutrophils Percent Auto 77.1 % (43.0-75.0); Platelet Count 208 10^3/uL (150-450); Red Blood Count 3.36 10^6/uL (4.20-5.40); Red Cell Distribution Width 14.2 % (11.0-15.0); White Blood Count 15.4 10^3/uL (4.0-11.0)
[2023-09-05 05:38] LABS: Alanine Aminotransferase 26 U/L (14-59); Albumin Globulin Ratio 0.9; Albumin Level 2.4 g/dL (3.4-5.0); Alkaline Phosphatase 60 U/L (46-116); Anion Gap 9.7; Aspartate Amino Transferase 25 U/L (15-37); BUN Creatinine Ratio 21.6; Bilirubin Total 0.3 mg/dL (0.2-1.0); Calcium 8.6 mg/dL (8.5-10.1); Carbon Dioxide 25.9 mmol/L (21.0-32.0); Chloride 110 mmol/L (98-107); Estimated GFR (African America >60 (>=60); Estimated GFR (Non-African Ame >60 (>=60); Globulin 2.8 g/dL; Glucose 96 mg/dL (74-106); Potassium 3.6 mmol/L (3.5-5.1); Sodium 142 mmol/L (136-145); Total Protein 5.2 g/dL (6.4-8.2)
[2023-09-05] MEDS: OMEPRAZOLE 40 MG CAPSULE.DR PO (05:52)
[2023-09-05 08:00] VITALS: BP 118/72; PULSE 74; TEMP 36.7; O2SAT 94
[2023-09-05 08:25] VITALS: TEMP 36.7
--- NOTE | 2023-09-05 09:07 | P.PN_ITS ---
Progress Note: Subjective Subjective Interval history: Patient is a 53 y.o female who is post operative day #3 from a L3-L4 laminectomy, fusion and bone graft. Her case is complicated by obesity and chronic pain that is managed by a intrathecal Dilaudid pump. Yesterday, hemovac was removed. She has remained Afebrile. Her headache is still present this morning but improved. She reports pain mostly in the left hip when getting up to use the restroom. She is eating and drinking. No Bowel movement yet despite S anant and Miralax. No n/v/d. She is wondering when she can do home. Exam Narrative Exam Narrative: General: Patient is alert, and oriented to person, place and time with normal affect, proper hygiene Skin: no visible rashes, or ulcers Head: atraumatic, acephalic Eyes: PERRLA, no nystagmus present, conjunctiva clear, no scleral icterus Heart: Normal rate and rhythm, no murmurs/rubs/gallops Lungs: no audible wheezes, crackles and normal breath sounds all lung smith Abdomen: Normal audible bowel sounds, no distension, No palpable masses, no organomegaly, no rebound/guarding/ or rigidity Musculoskeletal: no swelling bilateral lower extremities Neuro: CN II-X grossly intact Constitutional Vital Signs, click to edit/add: Last Vital Signs Temp 98.0 F 09/05/23 08:25 Pulse 74 09/05/23 08:00 Resp 16 09/05/23 08:00 BP 118/72 09/05/23 08:00 Pulse Ox 94 L 09/05/23 08:00 O2 Del Method Room Air 09/05/23 08:00 O2 Flow Rate 2 09/02/23 23:55 Progress Note: Objective Labs Labs: Short CBC 09/04/23 09/05/23 Range/Units 09:20 04:40 WBC 20.8 H 15.4 H (4.0-11.0) 10^3/uL Hgb 11.6 L 10.9 L (12.0-16.0) g/dL Hct 35.3 L 34.5 L (36.0-48.0) % Plt Count 219 208 (150-450) 10^3/uL BMP 09/04/23 09/05/23 09:20 04:40 Sodium 144 142 Potassium 3.8 3.6 Chloride 109 H 110 H Carbon Dioxide 24.8 25.9 BUN 11.0 11.0 Creatinine 0.67 0.51 L Glucose 110 H 96 Calcium 8.2 L 8.6 Liver Function 09/04/23 09/05/23 Range/Units 09:20 04:40 Total Bilirubin 0.3 0.3 (0.2-1.0) mg/dL AST 33 25 (15-37) U/L ALT 24 26 (14-59) U/L Alkaline Phosphatase 60 60 (46-116) U/L Albumin 2.5 L 2.4 L (3.4-5.0) g/dL Progress Note: A&P Assessment and Plan (1) Post-operative pain: Assessment and Plan: Defer post op pain to primary team (2) Headache: Assessment and Plan: Vital signs stable, continue as needed Fioricet Qualifiers: Headache chronicity pattern: acute headache Headache type: unspecified Intractability: intractable Qualified Code(s): R51.9 - Headache, unspecified (3) Depression: Assessment and Plan: continue cymbalta (4) GERD (gastroesophageal reflux disease): Assessment and Plan: continue PPI (5) Neuropathy: Assessment and Plan: continue gabapentin. (6) Leukocytosis: Assessment and Plan: most likely steroid induced given doses of Decadron. afebrile, will monitor and improving. Plan Patient has been in the hospital for 3 days post operatively. Patient has not been seen or evaluated by primary orthopedic surgical team since surgery, triston navarro. I called and spoke with Dr. Collado and encouraged them to come to evaluate the patient today for discharge planning. From a medical standpoint, her depression, neuropathy, GERD, labs and vitals are stable for discharge, but will need to be cleared from a post surgical standpoint.
[2023-09-05] MEDS: DULOXETINE HCL 60 MG CAPSULE.DR PO (09:20)
[2023-09-05] MEDS: SENNOSIDES/DOCUSATE SODIUM 1 TAB TABLET PO (09:20)
[2023-09-05] MEDS: POLYETHYLENE GLYCOL 3350 17 GM POWDER PACKET PO (09:20)
[2023-09-05] MEDS: BISACODYL 5 MG TABLET PO (09:20)
--- NOTE | 2023-09-05 10:24 | SWNOTE1 ---
JERZY spoke to Dipti at [facility]. Pt will have a 20%co-pay, which will be $40 for first visit and $30-$35 for every other visit. Pt had hemovac drain pulled yesterday. Pt may benefit from home health physical therapy. JERZY had spoke to physical therapy this morning and they recommended. JERZY explained HH to pt. Pt would like to wait for her fiance and mother to get here. Pt is going to go stay with her mother for a short time since her and her fiance have dogs at home and concerned they would jump on her.
--- NOTE | 2023-09-05 11:00 | CM.NOTE ---
RN in with Dr. Higgins for morning rounds. Patient aware of potential discharge post ortho PA rounding. No needs currently identified.
[2023-09-05 12:00] VITALS: BP 112/72; PULSE 72; TEMP 36.8; O2SAT 93
--- NOTE | 2023-09-05 12:54 | SWNOTE1 ---
SW checked back in to see if family was in room to discuss home health. Family was not in room. SW asked pt again about home health. Pt asked what it would be exactly. SW let her know it would be therapy coming in to do exercises with her and it would be 2-3 times a week for a short time. SW again let her know the cost due to her insurance having a co-pay. She voiced she would like to think about it. SW to check back again later today.
--- NOTE | 2023-09-05 12:58 | PM.PN ---
Progress Note: Subjective Subjective Interval history: POD#3 patient doing well, surgical site pain 09/22. +small BM (+) flatus. denies headache Exam Narrative Exam Narrative: 09/17 motor LE NVI Dressing - C/D/I Constitutional Vital Signs, click to edit/add: Last Vital Signs Temp 98.2 F 09/05/23 12:00 Pulse 72 09/05/23 12:00 Resp 16 09/05/23 12:00 BP 112/72 09/05/23 12:00 Pulse Ox 93 L 09/05/23 12:00 O2 Del Method Room Air 09/05/23 12:00 O2 Flow Rate 2 09/02/23 23:55 Neuro Sensory exam: not the extremities Progress Note: Objective Labs Labs: Short CBC 09/05/23 Range/Units 04:40 WBC 15.4 H (4.0-11.0) 10^3/uL Hgb 10.9 L (12.0-16.0) g/dL Hct 34.5 L (36.0-48.0) % Plt Count 208 (150-450) 10^3/uL BMP 09/05/23 04:40 Sodium 142 Potassium 3.6 Chloride 110 H Carbon Dioxide 25.9 BUN 11.0 Creatinine 0.51 L Glucose 96 Calcium 8.6 Liver Function 09/05/23 Range/Units 04:40 Total Bilirubin 0.3 (0.2-1.0) mg/dL AST 25 (15-37) U/L ALT 26 (14-59) U/L Alkaline Phosphatase 60 (46-116) U/L Albumin 2.4 L (3.4-5.0) g/dL Progress Note: A&P Assessment and Plan (1) Post-operative pain: (2) Headache: Qualifiers: Headache type: unspecified Headache chronicity pattern: acute headache Intractability: intractable Qualified Code(s): R51.9 - Headache, unspecified (3) Depression: (4) GERD (gastroesophageal reflux disease): (5) Neuropathy: (6) Leukocytosis: Plan POD#3 Discharge home today
--- NOTE | 2023-09-05 14:45 | SWNOTE1 ---
SW spoke to pt, emily, and pt's mother in room. SW explained to the family the out of pocket cost for home health. Pt's mother voiced that pt is staying with her and she will make sure pt is up and moving and will care for her at her home. At this time pt and family refusing HH services. SW advised pt and family that if they decide they want home health after being home, they can reach out to pt's PCP. Family and pt voiced understanding.
--- NOTE | 2023-09-09 14:35 | CM.DCFOLLOWU ---
Person spoke with: Radha How are you feeling? Good How is your pain? Much better Did you understand your discharge instructions? Yes Do you have any questions about your discharge instructions? No Were you given any prescriptions at discharge? No Were you able to get your prescriptions filled? N/A Do you understand how to take your medications as ordered? Yes Do you have any questions about your follow up appointment and do you plan to keep your follow up appointment? Yes it is scheduled and I do plan on going to f/u appt Is there anything else that you would like to discuss? No Questions/Comments/Concerns/Other:
== END 2023-09-05 14:30 | disposition home or self-care (01) | DRG 460 ==
LOC: SURGOUT 09-05 08:58 → MS 09-05 08:58
PROVIDERS: Anesthesiology; Family Medicine; Admitting Provider Orthopaedic Surgery Orthopaedic Surgery of the Spine; PCP Internal Medicine; Visit Provider Orthopaedic Surgery Orthopaedic Surgery of the Spine
PROC: 0SG0071 Fusion of Lumbar Vertebral Joint with Autologous Tissue Substitute, Posterior Approach, Posterior Column, Open Approach (ICD-10-PCS; principal; 2023-09-02 09:30)
DX: M51.16 Intervertebral disc disorders with radiculopathy, lumbar region (principal); G97.41 Accidental puncture or laceration of dura during a procedure; Y83.8 Other surgical procedures as the cause of abnormal reaction of the patient, or of later complication, without mention of misadventure at the time of the procedure; M48.061 Spinal stenosis, lumbar region without neurogenic claudication; M51.26 Other intervertebral disc displacement, lumbar region; F32.A Depression, unspecified; R51.9 Headache, unspecified; D72.829 Elevated white blood cell count, unspecified; T38.0X5A Adverse effect of glucocorticoids and synthetic analogues, initial encounter; E66.9 Obesity, unspecified; K21.9 Gastro-esophageal reflux disease without esophagitis; G89.29 Other chronic pain; F17.210 Nicotine dependence, cigarettes, uncomplicated; G62.9 Polyneuropathy, unspecified; Z98.1 Arthrodesis status; Z88.5 Allergy status to narcotic agent; Z79.1 Long term (current) use of non-steroidal anti-inflammatories (NSAID); Z79.891 Long term (current) use of opiate analgesic; Z79.82 Long term (current) use of aspirin; Z79.899 Other long term (current) drug therapy; Z68.38 Body mass index [BMI] 38.0-38.9, adult
CPT/HCPCS: 36415; 72100; 76000; 80048; 80053; 85014; 85018; 85025; 95938; 95940; 96365; 96375; 96376; 97112; 97162; 97165; 97535; C1713; J1094; J1170; J2704; J3370

== ENCOUNTER 2023-09-18 09:40 | Emergency (ER) | payer OTHER, SELFPAY ==
[2023-09-18] VITALS (15 sets, daily range): BP systolic 105–143; BP diastolic 49–76; PULSE 75–104; TEMP 36.6; O2SAT 95–100; BMI 36.4
--- OUTSIDE RECORDS SUMMARY | 2023-09-18 09:47 | XMS_ITS | CCD ---
Author Organization [facility] Care Team Providers Care Utility Supervisor [employer] Name Role Phone MAGED MURDOCK Unavailable Unavailable LINDSEY AGUILAR (PA) Unavailable Unavail able DEVANTE YAN (PRODUCTION TRUCK DRIVER) Unavailable UnavailULYSSES Phillips JR Unavailable Unavail able MAGED MURDOCK Unavailable Unavailable LINDSEY AGUILAR (PA) Unavailable Unavail able UNKNOWN, PROVIDER Unavailable Unavailable UNKNOWN, PROVIDER Unavailable Unavailable VALONE, ULYSSES Unavailable Unavailable DYLAN, ULYSSES Unavailable Unavailable PEREZ LESTER Admitting Unavailable ULYSSES RICHARDSON Primary Care Unavailable AZAR MAN Consulting Unavailable PEREZ LESTER Attending Unavailable PEREZ LESTER Consulting Unavailable MAT CASEY Consulting Unavailable Fela Smith Consulting Unavailable WALI BUSTILLOS Consulting Unavailable SHAIKH SALES Consulting Unavailable RADHA ELLIS Referring Unavailable ULYSSES RICHARDSON JR Primary Care Unavailable RADHA ELLIS Referring Unavailable DYLAN BARGER ULYSSES L Primary Care Unavailable ALYSSAONE JR ULYSSES L Referring Unavailable VALONE JR ULYSSES L Primary Care Unavailable Allergies Allergy Classification Reported [...] Anion gap [Moles/Vol] 8 mmol/L Normal 5-15 [facility] Comment on above: Performed By: #### E LEC #### [facility] ([id number]) [address], [address] [place] [address] Chloride [Moles/Vol] 110 mmol/L High 98-109 [facility] Comment on above: Performed By: #### E LEC #### [facility] ([id number]) [address], [address] [place] [address] CO2 [Moles/Vol] 23 mmol/L Normal 22-32 [facility] Comment on above: Performed By: #### E LEC #### [facility] ([id number]) [address], [address] [place] [address] Potassium [Moles/Vol] 4.4 mmol/L Normal 3.5-5.0 [facility] Comment on above: Performed By: #### E LEC #### [facility] ([id number]) [address], [address] [place] [address] Sodium [Moles/Vol] 141 mmol/L Normal 134-146 [place] Comment on above: Performed By: #### E LEC #### [facility] ([id number]) [address], [address] [place] [address] CARDIAC AZAR ADMITon 03-07- 020 CK [Catalytic activity/Vol] 915 U/L Critically high 30-135 [facility] Comment on above: Result Comment: Test repeated. Critical value verified. Performed By: #### D RUGRPD #### [facility] [address] [place] [address] Christian Degroot CK.MB [Mass/Vol] 12.82 ng/mL Critically high <=2.37 [facility] Comment on above: Result Comment: Test repeated. Critical value verified. Performed By: #### D RUGRPD #### [facility] [address] [place], [place] [address] Christian Degroot INR Coag (Bld) [Relative time] SEE BELOW Normal [facility] Comment on above: Result Comment: <0.0 34 ng/ml NEGATIVE 0.034-0.119 INDETERMINATE 0.120 AMI CUT OFF Performed By: #### D RUGRPD #### [facility] [address] [place], [place] [address] Christian Degroot ÁNGEL 96.0 ng/mL Critically high <=61.5 [facility] Comment on above: Performed By: #### D RUGRPD #### [facility] [address] [place] [address] Christian Mikayla TROP 0.028 ng/mL Normal <=0.034 [facility] Comment on above: Performed By: #### D RUGRPD #### [facility] [address] [place] [address] Christian Mikayla CK [Catalytic activity/Vol] 1282 U/L Critically high 30-135 [facility] Comment on above: Result Comment: Test repeated. Critical value verified. Performed By: #### T ROP, CMP #### [facility] [address] [place] [address] Christian Mikayla CK.MB [Mass/Vol] 24.63 ng/mL Critically high <=2.37 [facility] Comment on above: Result Comment: Test repeated. Critical value verified. Performed By: #### T ROP, CMP #### [facility] [address] [place] [address] Christian Mikayla INR Coag (Bld) [Relative time] SEE BELOW Normal [facility] Comment on above: Result Comment: <0.0 34 ng/ml NEGATIVE 0.034-0.119 INDETERMINATE 0.120 AMI CUT OFF Performed By: #### T ROP, CMP #### [facility] [address] [place] [address] Christian Mikayla ÁNGEL 235.0 ng/mL Critically high <=61.5 [facility] Comment on above: Performed By: #### T ROP, CMP #### [facility] [address] [place] [address] Christian Mikayla TROP 0.033 ng/mL Normal <=0.034 [facility] Comment on above: Performed By: #### T ROP, CMP #### [facility] [address] [place] [address] Christian Mikayla CBC AUTO DIFFon 03-07-2020 Basophils (Bld) [#/Vol] 0.0 103/ul Normal 0.0-0.1 [facility] Comment on above: Performed By: #### C BC #### [facility] [address] [place], [place] [address] Christian Mikayla Basophils/100 WBC (Bld) 0.1 % Critically low 0.2-2.0 [facility] Comment on above: Performed By: #### C BC #### [facility] [address] [place], [place] [address] Christian Mikayla Eosinophils (Bld) [#/Vol] 0.0 103/ul Normal 0.0-0.7 [facility] Comment on above: Performed By: #### C BC #### [facility] [address] [place], [place] [address] Christian Mikayla Eosinophils/100 WBC (Bld) 0.0 % Critically low 0.9-7.0 [facility] Comment on above: Performed By: #### C BC #### [facility] [address] [place], [place] [id number] Christian Mikayla Erythrocyte distribution width (RBC) [Ratio] 13.4 % Normal 11.0-15.0 [facility] Comment on above: Performed By: #### C BC #### [facility] [address] [place], [place] [phone] Christian Mikayla Hematocrit (Bld) [Volume fraction] 35.4 % Critically low 36.0-48.0 [facility] Comment on above: Performed By: #### C BC #### [facility] [address] [place] [address] Christian Mikayla Hemoglobin (Bld) [Mass/Vol] 11.4 g/dL Critically low 12.0-16.0 [facility] Comment on above: Performed By: #### C BC #### [facility] [address] [place], [place] [address] Christian Mikayla IG # 0.07 10e3/ul Critically high 0.00-0.03 [facility] Comment on above: Performed By: #### C BC #### [facility] [address] [place], [place] [address] Christian Mikayla IG % 0.4 % Normal 0.0-0.5 [facility] Comment on above: Performed By: #### C BC #### [facility] [address] [place], [place] [address] Christian Mikayla Lymphocytes (Bld) [#/Vol] 1.1 103/ul Critically low 1.2-3.8 [facility] Comment on above: Performed By: #### C BC #### [facility] [address] [place], [place] [address] Christian Mikayla Lymphocytes/100 WBC (Bld) 6.9 % Critically low 20.5-60.0 [facility] Comment on above: Performed By: #### C BC #### [facility] [address] [place], [place] [address] Christian Mikayla MANUAL DIFF REQ NO Normal [facility] Comment on above: Performed By: #### C BC #### [facility] [address] [place], [place] [id number] Christian Mikayla MCH (RBC) [Entitic mass] 32.7 pg Normal 26.7-34.0 [facility] Comment on above: Performed By: #### C BC #### [facility] [address] [place], [place] [phone] Christian Mikayla MCHC (RBC) [Mass/Vol] 32.2 g/dL Normal 29.9-35.2 [facility] Comment on above: Performed By: #### C BC #### [facility] [address] [place], [place] [phone] Christian Mikayla MCV (RBC) [Entitic vol] 101.4 fL Critically high 81.0-99.0 [facility] Comment on above: Performed By: #### C BC #### [facility] [address] [place], [place] [address] Christian Mikayla Monocytes (Bld) [#/Vol] 1.4 103/ul Critically high 0.3-0.8 [facility] Comment on above: Performed By: #### C BC #### [facility] [address] [place], [place] [address] Christian Mikayla Monocytes/100 WBC (Bld) 8.6 % Normal 1.7-12.0 [facility] Comment on above: Performed By: #### C BC #### [facility] [address] [place], [place] [address] Christian Mikayla Neutrophils (Bld) [#/Vol] 13.4 103/ul Critically high 1.4-6.5 [facility] Comment on above: Performed By: #### C BC #### [facility] [address] [place] [address] Christian Santanaen Neutrophils/100 WBC (Bld) 84.0 % Critically high 43.0-75.0 [facility] Comment on above: Performed By: #### C BC #### [facility] [address] [place] [address] Christianvíctor Santanaen Platelet mean volume (Bld) [Entitic vol] 9.5 fL Normal 9.5-13.5 [facility] Comment on above: Performed By: #### C BC #### [facility] [address] [place], [place] [address] Christianvíctor Santanaen Platelets (Bld) [#/Vol] 207 103/ul Normal 150-450 [facility] Comment on above: Performed By: #### C BC #### [facility] [address] [place] [address] Christian Mikayla RBC (Bld) [#/Vol] 3.49 106/ul Critically low 4.20-5.40 [facility] Comment on above: Performed By: #### C BC #### [facility] [address] [place], [place] [address] Christianvíctor Santanaen WBC (Bld) [#/Vol] 16.0 103/ul Critically high 4.0-11.0 [facility] Comment on above: Performed By: #### C BC #### [facility] [address] [place], [place] [address] Christian Degroot PROF CHEM 8 (BAS METB)on Anion gap [Moles/Vol] 11.2 mmol/L Normal [facility] Comment on above: Performed By: #### D RUGRPD #### [facility] [address] [place], [place] [address] Christian Mikayla Calcium [Mass/Vol] 8.3 mg/dL Critically low 8.4-10.2 [facility] Comment on above: Performed By: #### D RUGRPD #### [facility] [address] [place] [id number] Christian Mikayla Chloride [Moles/Vol] 106 mmol/L Normal 98-107 [facility] Comment on above: Performed By: #### D RUGRPD #### [facility] [address] [place] [address] Christian Mikayla CO2 [Moles/Vol] 24.5 mmol/L Normal 22.0-30.0 [facility] Comment on above: Performed By: #### D RUGRPD #### [facility] [address] [place] [address] Christian Mikayla Creatinine [Mass/Vol] 0.53 mg/dL Normal 0.52-1.04 [facility] Comment on above: Performed By: #### D RUGRPD #### [facility] [address] [place] [address] Christian Mikayla EGFR-AF JAMA[place] >60 Normal >=60 [facility] Comment on above: Performed By: #### D RUGRPD #### [facility] [address] [place], [place] [address] Christian Mikayla EGFR-NON AF [place] >60 Normal >=60 [facility] Comment on above: Performed By: #### D RUGRPD #### [facility] [address] [place] [address] Christian Mikayla Glucose [Mass/Vol] 113 mg/dL Critically high 74-106 [facility] Comment on above: Performed By: #### D RUGRPD #### [facility] [address] [place], [place] [address] Christian Mikayla Potassium [Moles/Vol] 3.7 mmol/L Normal 3.4-5.0 [facility] Comment on above: Performed By: #### D RUGRPD #### [facility] [address] [place] [address] Christian Mikayla Sodium [Moles/Vol] 138 mmol/L Normal 137-145 [facility] Comment on above: Performed By: #### D RUGRPD #### [facility] [address] [place], [place] [address] Christian Mikayla Urea nitrogen [Mass/Vol] 12.0 mg/dL Normal 7.0-17.0 [facility] Comment on above: Performed By: #### D RUGRPD #### [facility] [address] [place], [place] [address] Christian Mikayla Urea nitrogen/Creatinin e [Mass ratio] 22.6 mg/mg Normal [facility] Comment on above: Performed By: #### D RUGRPD #### [facility] [address] [place], [place] [address] Christian Mikayla CBC W MANUAL DIFFon 03-06-20 20 ATYPICAL LYMPH # Normal [facility] Comment on above: Performed By: #### D RUGRPD #### [facility] [address] [place] [address] Christian Mikayla ATYPICAL LYMPH % Normal [facility] Comment on above: Performed By: #### D RUGRPD #### [facility] [address] [place], [place] [address] Christian Mikayla BAND # Normal 0.0-0.3 [facility] Comment on above: Performed By: #### D RUGRPD #### [facility] [address] [place] [address] Christian Mikayla BAND % Normal 0-5 [facility] Comment on above: Performed By: #### D RUGRPD #### [facility] [address] [place] [address] Christian Mikayla BASOM # 0.00 103/ul Normal 0.00-0.10 [facility] Comment on above: Performed By: #### D RUGRPD #### [facility] [address] [place] [address] Christian Mikayla BASOM % 0.0 % Critically low 0.2-2.0 [facility] Comment on above: Performed By: #### D RUGRPD #### [facility] [address] [place] [address] Christian Mikayla BLAST # Normal [facility] Comment on above: Performed By: #### D RUGRPD #### [facility] [address] [place] [address] Christian Mikayla BLAST % Normal [facility] Comment on above: Performed By: #### D RUGRPD #### [facility] [address] [place], [place] [address] Christian Mikayla CORRECTED WBC Normal 4.0-11.0 [facility] Comment on above: Performed By: #### D RUGRPD #### [facility] [address] [place], [place] [address] Christian Mikayla Eosinophils (Bld) [#/Vol] 0.00 103/ul Normal 0.00-0.70 [facility] Comment on above: Performed By: #### D RUGRPD #### [facility] [address] [place], [place] [address] Christian Mikayla Eosinophils/100 WBC (Bld) 0.0 % Critically low 0.9-7.0 [facility] Comment on above: Performed By: #### D RUGRPD #### [facility] [address] [place], [place] [address] Christian Mikayla Erythrocyte distribution width (RBC) [Ratio] 13.2 % Normal 11.0-15.0 [facility] Comment on above: Performed By: #### D RUGRPD #### [facility] [address] [place], [place] [address] Christian Mikayla Hematocrit (Bld) [Volume fraction] 44.1 % Normal 36.0-48.0 [facility] Comment on above: Performed By: #### D RUGRPD #### [facility] [address] [place], [place] [address] Christian Mikayla Hemoglobin (Bld) [Mass/Vol] 13.9 g/dl Normal 12.0-16.0 [facility] Comment on above: Performed By: #### D RUGRPD #### [facility] [address] [place], [place] [address] Christian Mikayla LYMPHM # 0.26 103/ul Critically low 1.20-3.80 The [facility] Comment on above: Performed By: #### D RUGRPD #### [facility] [address] [place], [place] [address] Christian Degroot LYMPHM% 1.0 % Critically low 20.5-60.0 [facility] Comment on above: Performed By: #### D RUGRPD #### [facility] [address] [place], [place] [address] Christian Degroot MCH (RBC) [Entitic mass] 32.6 pg Normal 26.7-34.0 [facility] Comment on above: Performed By: #### D RUGRPD #### [facility] [address] [place], [place] [address] Christian Degroot MCHC (RBC) [Mass/Vol] 31.5 g/dl Normal 29.9-35.2 [facility] Comment on above: Performed By: #### D RUGRPD #### [facility] [address] [place] [address] Christian Degroot MCV (RBC) [Entitic vol] 103.3 fL Critically high 81.0-99.0 [facility] Comment on above: Performed By: #### Dwayne RUGRPD #### [facility] [address] [place], [place] [address] Christianvíctor Santanaen METAMYELOCYTE # Normal The [facility] Comment on above: Performed By: #### Dwayne RUGRPD #### [facility] [address] [place], [place] [address] Christianvíctor Santanaen METAMYELOCYTE % Normal The [facility] Comment on above: Performed By: #### D RUGRPD #### [facility] [address] [place] [address] Christian Mikayla MONOM# 1.32 103/ul Critically high 0.30-0.80 [facility] Comment on above: Performed By: #### D RUGRPD #### [facility] [address] [place] [address] Christian Mikayla MONOM% 5.0 % Normal 1.7-12.0 [facility] Comment on above: Performed By: #### D JUNED #### [facility] [address] [place], [place] [address] Christian Mikayla MYELOCYTE # Normal [facility] Comment on above: Performed By: #### D RUGRPD #### [facility] [address] [place], [place] [address] Christian Mikayla MYELOCYTE % Normal [facility] Comment on above: Performed By: #### D RUGRPD #### [facility] [address] [place], [place] [address] Christian Mikayla NRBC Normal [facility] Comment on above: Performed By: #### D RUGRPD #### [facility] [address] [place], [place] [address] Christian Mikayla Platelet mean volume (Bld) [Entitic vol] 9.6 fL Normal 9.5-13.5 [facility] Comment on above: Performed By: #### D MARIAMARPD #### [facility] [address] [place], [place] [address] Christian Mikayla Platelets (Bld) [#/Vol] 268 103/ul Normal 150-450 [facility] Comment on above: Performed By: #### D RUGRPD #### [facility] [address] [place], [place] [address] Christian Mikayla RBC (Bld) [#/Vol] 4.27 106/ul Normal 4.20-5.40 [facility] Comment on above: Performed By: #### D RUGRPD #### [facility] [address] [place], [place] [address] Christian Mikayla SEG # 24.82 103/ul Critically high 1.40-6.50 [facility] Comment on above: Performed By: #### D RUGRPD #### [facility] [address] [place], [place] [address] Christian Mikayla Segmented neutrophils/100 WBC (Bld) 94.0 % Critically high 43.0-75.0 [facility] Comment on above: Performed By: #### D RUGRPD #### [facility] [address] [place], [place] [address] Christian Mikayla WBC (Bld) [#/Vol] 26.4 103/ul Critically high 4.0-11.0 [facility] Comment on above: Performed By: #### D RUGRPD #### [facility] [address] [place], [place] [address] Christian Degroot CPKon 03-06-2020 CK [Catalytic activity/Vol] 464 U/L Critically high 30-135 [facility] Comment on above: Result Comment: test repeated critical value verified Performed By: #### C K #### [facility] [address] [place], [place] [address] ABD/PELV W CONon 03-06-20 [...] MAT CASEY Date: 2020-03-06 18:45 Normal [facility] CT STROKE HEAD WOon 03-06-20 [...] MAT CASEY Date: 2020-03-06 16:31 Normal [facility] DRUG SCREEN RAPID (URINE)on 03-06-2020 AMP Positive Normal NEGATIVE [facility] Comment on above: Performed By: #### D RUGRPD #### [facility] [address] [place] [address] Christian Mikayla BAR Negative Normal NEGATIVE [facility] Comment on above: Performed By: #### D RUGRPD #### [facility] [address] [place] [address] Christian Mikayla BUP Negative Normal NEGATIVE [facility] Comment on above: Performed By: #### D RUGRPD #### [facility] [address] [place] [address] Christian Mikayla BZO Negative Normal NEGATIVE [facility] Comment on above: Performed By: #### D RUGRPD #### [facility] [address] [place] [address] Christian Mikayla RITCHIE Negative Normal NEGATIVE [facility] Comment on above: Performed By: #### D RUGRPD #### [facility] [address] [place] [address] Christian Mikayla CUT-OFFS SEE BELOW Normal [facility] Comment on above: Result Comment: AMP [...] ng/mL Performed By: #### D RUGRPD #### [facility] [address] [place] [address] DRUG CUT HEADER DRUG CLASS TEST SYST EM CUT-OFF CONCENTRATIONS ARE FOLLOWS: Normal [facility] Comment on above: Performed By: #### D RUGRPD #### [facility] [address] [place] [address] Christian Mikayla mAMP Negative Normal NEGATIVE [facility] Comment on above: Performed By: #### D RUGRPD #### [facility] [address] [place] [address] [facility] Normal NEGATIVE [facility] Comment on above: Performed By: #### D RUGRPD #### [facility] [address] [place] [address] Christian Mikayla OPI Positive Normal NEGATIVE [facility] Comment on above: Performed By: #### D RUGRPD #### [facility] [address] [place] [address] Christian Mikayla OXY Negative Normal NEGATIVE [facility] Comment on above: Performed By: #### D RUGRPD #### [facility] [address] [place] [address] PCP Negative Normal NEGATIVE [facility] Comment on above: Performed By: #### D RUGRPD #### [facility] [address] [place] [address] PPX Negative Normal NEGATIVE [facility] Comment on above: Performed By: #### D RUGRPD #### [facility] [address] [place] [address] Christian Imkayla TCA Negative Normal NEGATIVE [facility] Comment on above: Performed By: #### D RUGRPD #### [facility] [address] [place] [address] Christian Mikayla THC Negative Normal NEGATIVE [facility] Comment on above: Performed By: #### D RUGRPD #### [facility] [address] [place], [place] [address] Christian Mikayla ER URINE PROFILEon 0 Bilirubin [Mass/Vol] Negative Normal NEGATIVE [facility] Comment on above: Performed By: #### E RUR #### [facility] [address] [place] [address] Christian Mikayla BLOOD Negative Normal NEGATIVE [facility] Comment on above: Performed By: #### E RUR #### [facility] [address] [place] [address] Christian Mikayla Clarity (U) CLEAR Normal [facility] Comment on above: Performed By: #### E RUR #### [facility] [address] [place] [address] Christian Mikayla Color (U) YELLOW Normal YELLOW [facility] Comment on above: Performed By: #### E RUR #### [facility] [address] [place], [place] [address] Christian Mikayla ERUAHD A micrscopic examina tion will be performed if indicated. Normal [facility] Comment on above: Performed By: #### E RUR #### [facility] [address] [place] [address] Christian Mikayla Glucose [Mass/Vol] Negative Normal NEGATIVE The [facility] Comment on above: Performed By: #### E RUR #### [facility] [address] [place], [place] [id number] Christian Mikayla Ketones Ql (U) Negative Normal NEGATIVE The [facility] Comment on above: Performed By: #### E RUR #### [facility] [address] [place] [address] Christian Mikayla Nitrite Ql (U) Negative Normal NEGATIVE The [facility] Comment on above: Performed By: #### E RUR #### [facility] [address] [place], [place] [id number] Christian Mikayla pH (Bld) 6.0 Normal 5-9 [facility] Comment on above: Performed By: #### E RUR #### [facility] [address] [place], [place] [id number] Christian Mikayla Protein (U) [Mass/Vol] TRACE Normal [facility] Comment on above: Performed By: #### E RUR #### [facility] [address] [place] [address] Christian Mikayla SPEC GRAVITY >=1.030 Normal 1.005-<=1.02 5 [facility] Comment on above: Performed By: #### E RUR #### [facility] [address] [place] [address] Christian Mikayla UR MICRO IND NOT INDICATED Normal [facility] Comment on above: Performed By: #### E RUR #### [facility] [address] [place] [address] Christian Mikayla Urobilinogen Qn (U) 0.2 EU/dl Normal [facility] Comment on above: Performed By: #### E RUR #### [facility] [address] [place] [address] Christian Mikayla WBC (Bld) [#/Vol] Negative Normal NEGATIVE The [facility] Comment on above: Performed By: #### E RUR #### [facility] [address] [place], [place] [id number] Christian Mikayla ETHANOL (BLD ALC)on 03-06-20 20 Ethanol [Mass/Vol] NOTE: 80 mg/dl is th e legal limit for a blood alcohol level Normal [facility] Comment on above: Performed By: #### E TH #### [facility] [address] [place], [place] [id number] Christian Mikayla Ethanol [Mass/Vol] mg/dL Normal [facility] Comment on above: Performed By: #### E TH #### [facility] [address] [place] [address] Christian Degroot HEMOGRAM AND PLATELon 2019 WBC (Bld) [#/Vol] 23.5 103/ul Critically high 4.0-11.0 [facility] Comment on above: Performed By: #### H H #### [facility] [address] [place] [address] Christian Degroot LACTATE/LACTIC ACIDon 2019 Lactate [Moles/Vol] 0.7 mmol/L Normal 0.7-2.0 [facility] Comment on above: Performed By: #### L ACT #### [facility] [address] [place] [address] Christian Degroot MYOGLOBINon 03-06-2020 Myoglobin [Mass/Vol] 918.0 ng/mL Critically high <=61.5 [facility] Comment on above: Result Comment: test repeated critical value verified Performed By: #### M YO #### [facility] [address] [place] [address] Christian Degroot POINT OF CARE GLUCOSEon 02-14 Glucose [Mass/Vol] 117 mg/dL Critically high 74-106 [facility] Comment on above: Performed By: #### D RUGRPD #### [facility] [address] [place] [address] Christian Degroot PROF 14(COMP METB)on 020 Albumin [Mass/Vol] 3.3 g/dL Critically low 3.5-5.0 [facility] Comment on above: Performed By: #### T BLAYNE, CMP #### [facility] [address] [place], [place] [id number] Christian Mikayla Albumin/Globulin [Mass ratio] 1.1 {ratio} Normal [facility] Comment on above: Performed By: #### T BLAYNE, CMP #### [facility] [address] [place] [address] Christian Mikayla ALP [Catalytic activity/Vol] 69 U/L Normal 38-126 [facility] Comment on above: Performed By: #### T BLAYNE, CMP #### [facility] [address] [address] Christian Mikayla ALT [Catalytic activity/Vol] 30 U/L Normal 9-52 [facility] Comment on above: Performed By: #### T ROP, CMP #### [facility] [address] [place] [address] Christian Mikayla Anion gap [Moles/Vol] 16.8 mmol/L Normal [facility] Comment on above: Performed By: #### T ROP, CMP #### [facility] [address] [address] Christian Mikayla AST [Catalytic activity/Vol] 29 U/L Normal 14-36 [facility] Comment on above: Performed By: #### T ROP, CMP #### [facility] [address] [place] [address] Christian Mikayla Bilirubin Ql (U) 0.4 mg/dL Normal 0.2-1.3 [facility] Comment on above: Performed By: #### T ROP, CMP #### [facility] [address] [place] [address] Christian Mikayla Calcium [Mass/Vol] 8.7 mg/dL Normal 8.4-10.2 [facility] Comment on above: Performed By: #### T ROP, CMP #### [facility] [address] [place] [address] Christian Mikayla Chloride [Moles/Vol] 104 mmol/L Normal 98-107 [facility] Comment on above: Performed By: #### T ROP, CMP #### [facility] [address] [place] [address] Christian Mikayla CO2 [Moles/Vol] 22.6 mmol/L Normal 22.0-30.0 [facility] Comment on above: Performed By: #### T ROP, CMP #### [facility] [address] [place] [address] Christian Mikayla Creatinine [Mass/Vol] 0.92 mg/dL Normal 0.52-1.04 [facility] Comment on above: Performed By: #### T ROP, CMP #### [facility] [address] [place], [place] [address] Christian Mikayla EGFR-AF JAMAICAN >60 Normal >=60 [facility] Comment on above: Performed By: #### T ROP, CMP #### [facility] [address] [id number] Christian Mikayla EGFR-NON AF JAMAICAN >60 Normal >=60 [facility] Comment on above: Performed By: #### T ROP, CMP #### [facility] [address] [id number] Christian Mikayla Globulin (S) [Mass/Vol] 3.0 g/dL Normal [facility] Comment on above: Performed By: #### T ROP, CMP #### [facility] [address] [place] [address] Christian Mikayla Glucose [Mass/Vol] 130 mg/dL Critically high 74-106 [facility] Comment on above: Performed By: #### T ROP, CMP #### [facility] [address] [place] [address] Christian Mikayla Potassium [Moles/Vol] 4.4 mmol/L Normal 3.4-5.0 [facility] Comment on above: Performed By: #### T ROP, CMP #### [facility] [address] [place] [address] Christian Mikayla Protein [Mass/Vol] 6.3 g/dL Normal 6.1-8.2 [facility] Comment on above: Performed By: #### T ROP, CMP #### [facility] [address] [place] [address] Christian Mikayla Sodium [Moles/Vol] 139 mmol/L Normal 137-145 [facility] Comment on above: Performed By: #### T ROP, CMP #### [facility] [address] [id number] Christian Mikayla Urea nitrogen [Mass/Vol] 18.0 mg/dL Critically high 7.0-17.0 [facility] Comment on above: Performed By: #### T ROP, CMP #### [facility] [address] [place], [place] [id number] Christian Mikayla Urea nitrogen/Creatinin e [Mass ratio] 19.6 mg/mg Normal [facility] Comment on above: Performed By: #### T ROP, CMP #### [facility] [address] [place] [address] Christian Mikayla RESPIRATORY PANEL PLUSon Adenovirus NOT DETECTED Normal NOT DETECTED The [facility] Comment on above: Performed By: #### D RUGRPD #### [facility] [address] [place] [address] Christian Mikayla B. Parapertusis NOT DETECTED Normal NOT DETECTED The [facility] Comment on above: Performed By: #### D RUGRPD #### [facility] [address] [place] [address] Christian Mikayla B. Pertussis NOT DETECTED Normal NOT DETECTED [facility] Comment on above: Performed By: #### D RUGRPD #### [facility] [address] [place] [address] Christian Mikayla Chlamydia Pneumoniae NOT DETECTED Normal NOT DETECTED [facility] Comment on above: Performed By: #### D RUGRPD #### [facility] [address] [place] [address] Christian Mikayla Coronavirus 229E NOT DETECTED Normal NOT DETECTED [facility] Comment on above: Performed By: #### D RUGRPD #### [facility] [address] [place] [address] Christian Mikayla Coronavirus HKU1 NOT DETECTED Normal NOT DETECTED [facility] Comment on above: Performed By: #### D RUGRPD #### [facility] [address] [place] [address] Christian Mikayla Coronavirus NL63 NOT DETECTED Normal NOT DETECTED [facility] Comment on above: Performed By: #### D RUGRPD #### [facility] [address] [place] [address] Christian Mikayla Coronavirus OC43 NOT DETECTED Normal NOT DETECTED [facility] Comment on above: Performed By: #### D RUGRPD #### [facility] [address] [place] [address] Christian Mikayla Influenza A H1 2009 NOT DETECTED Normal NOT DETECTED [facility] Comment on above: Performed By: #### D RUGRPD #### [facility] [address] [address] Christian Mikayla Influenza B NOT DETECTED Normal NOT DETECTED The [facility] Comment on above: Performed By: #### D RUGRPD #### [facility] [address] [address] Christian Mikayla Metapneumovirus NOT DETECTED Normal NOT DETECTED The [facility] Comment on above: Performed By: #### D RUGRPD #### [facility] [address] [place] [address] Christian Mikayla Mycoplas. Pneumoniae NOT DETECTED Normal NOT DETECTED [facility] Comment on above: Performed By: #### D RUGRPD #### [facility] [address] [place] [address] Christian Mikayla Parainfluenza 1 NOT DETECTED Normal NOT DETECTED The [facility] Comment on above: Performed By: #### D RUGRPD #### [facility] [address] [place] [address] Christian Mikayla Parainfluenza 2 NOT DETECTED Normal NOT DETECTED The [facility] Comment on above: Performed By: #### D RUGRPD #### [facility] [address] [place] [address] Christian Mikayla Parainfluenza 3 NOT DETECTED Normal NOT DETECTED The [facility] Comment on above: Performed By: #### D RUGRPD #### [facility] [address] [place] [address] Christian Mikayla Parainfluenza 4 NOT DETECTED Normal NOT DETECTED The [facility] Comment on above: Performed By: #### D RUGRPD #### [facility] [address] [place] [address] Christian Mikayla Rhino/Enterovirus NOT DETECTED Normal NOT DETECTED [facility] Comment on above: Performed By: #### D RUGRPD #### [facility] [address] [place] [address] Christian Mikayla RP2 Header 1 RESPIRATORY PANEL: VIRUSES Normal [facility] Comment on above: Performed By: #### D RUGRPD #### [facility] [address] [place] [address] Christian Degroot RP2 Header 2 RESPIRATORY PANEL: BACTERIA Normal [facility] Comment on above: Performed By: #### D RUGRPD #### [facility] [address] [place] [address] Christian Degroot RP2 Header 4 EUA SEE BELOW Normal [facility] Comment on above: Result Comment: This test is not yet approved or cleared by the [place] FDA. When there are no FDA-approved or cleared tests available, and other criteria are met, FDA can make tests available under an emergency access mechanism called an Emergency Use Authorization (EUA). The EUA for this test is supported by the [place] [place] of Health and Human Service?s (HHS?s) declaration [...] used). Performed By: #### D RUGRPD #### [facility] [address] [place] [address] Christian Degroot RSV NOT DETECTED Normal NOT DETECTED The [facility] Comment on above: Performed By: #### D RUGRPD #### [facility] [address] [place] [address] Christian Degroot SARS-CoV-2: COVID-19 NOT DETECTED Normal NOT DETECTED [facility] Comment on above: Performed By: #### D RUGRPD #### [facility] [address] [place] [address] Christian Degroot TROPONIN - Ion 03-06-2020 Troponin I.cardiac [Mass/Vol] 0.016 ng/mL Normal <=0.034 [facility] Comment on above: Performed By: #### T ROP, CMP #### [facility] [address] [place] [address] Christian Degroot Troponin I.cardiac [Mass/Vol] SEE BELOW Normal [facility] Comment on above: Result Comment: <0.0 34 ng/ml NEGATIVE 0.034-0.119 INDETERMINATE 0.120 AMI CUT OFF Performed By: #### T ROP, CMP #### [facility] [address] [place], [place] [address] Christian Degroot XR CHEST 1 Von 03-06-2020 [...] FELA SMITH Date: 2020-03-06 15:07 Normal [facility] CT 3D CERVICAL SPINE WITH CO NTRASTon 04-27-2018 CT 3D CERVICAL SPINE WITH CONTR[facility] [address] [place] [address] Patient Name: RADHA DUNCAN : 1970Sex: FAge: Race: WhiteMRN: [id number]. Location: 85Patient Status: OVisit #: [id number] Date: 04/10/2018 12:10:00 PMCompleted Date: 04/27/2018 10:58 AMRequesting Provider: MARY DIAL Attending Provider: MARY DIAL Report Copy To: ULYSSES RICHARDSON Signs & Symptoms: M54.12 Radiculopathy, cervical region [id number]: Nyla MYELOGRAM AUTH [id number] VALID 04/11/18-07/12/18 PER [facility] [id number] JYComments: Exam: CT 3D CERVICAL SPINE WITH CONTRASTAccession #: [id number] CT 3D CERVICAL SPINE WITH CONTRAST 04/27/2018 [...] findings. Electronically signed by:Oli Sanders. Transcribed by: [email or web address], User Resident: MANDEEP YOUNGElectronically Signed by: OLI SANDERS @ 04/27/2018 01:02 PMI personally read this/these film(s) with this resident Normal The [facility] CT 3D LUMBAR SPINE W CONTRAS Ton 04-27-2018 CT 3D LUMBAR SPINE W CONTRAST [facility] [address] [id number] Patient Name: RADHA DUNCAN : 1970Sex: FAge: Race: WhiteMRN: [id number]. Location: 85Patient Status: DVisit #: [id number] Date: 04/10/2018 12:10:00 PMCompleted Date: 04/27/2018 10:59 AMRequesting Provider: MARY DIAL Attending Provider: MARY DIAL Report Copy To: ULYSSES RICHARDSON Signs & Symptoms: M54.16 Radiculopathy, lumbar region Q97Vvupnam: Nyla MYELOGRAM AUTH [id number] VALID 04/11/18-07/12/18 PER [facility] [id number] JYComments: Exam: CT 3D LUMBAR SPINE W CONTRASTAccession #: [id number] CT 3D LUMBAR SPINE W CONTRAST 04/27/2018 [...] findings. Electronically signed by:Martínez Skelton. Transcribed by: [email or web address], User Resident: MANDEEP YOUNGElectronically Signed by: MARTÍNEZ SKELTON @ 04/27/2018 05:36 PMI personally read this/these film(s) with this resident Normal The [facility] ENTIRE MYELOGRAMon 8 ENTIRE MYELOGRAM [facility] [address] [place] [address] Patient Name: RADHA DUNCAN : 1970Sex: FAge: Race: WhiteMRN: [id number]. Location: 85Patient Status: OVisit #: [id number] Date: 04/10/2018 12:10:00 PMCompleted Date: 04/27/2018 10:19 AMRequesting Provider: MARY DIAL Attending Provider: MARY DIAL Report Copy To: ULYSSES RICHARDSON Signs & Symptoms: M54.16 Radiculopathy, lumbar region K89Selqcke: Max CT MYELOGRAMComments: , , , Ordering Provider - MARY DIAL MD , Exam: ENTIRE MYELOGRAMAccession #: [id number] ENTIRE MYELOGRAM 04/27/2018 10:19 AM EST SIGNS [...] and risks are acceptable. Consent was obtained. Timeout:[place] protocol timeout verification performed. PROCEDURE:Estimated blood loss:None [...] findings. Electronically signed by:Oli Sanders. Transcribed by: [email or web address], User Resident: MANDEEP YOUNGElectronically Signed by: OLI SANDERS @ 04/27/2018 01:01 PMI personally read this/these film(s) with this resident Normal The [facility] Comment on above: Order Comment: , , = ========= , Ordering Provider - MARY DIAL MD , Ta 02-20-2018 CNPN Telephone (JOYCELYN) -------RADHA DUNCAN ([id number]) 1970 [facility] Time Provider Tnbqvuljrz75/8/18 MAGED MURDOCK During your visit today, we recorded the following information about you:Jacinta Philippe [facility] Patient Service Spec 02/20/2018 8:05 AM SignedPt recv'd a letter for the release of care.Pt does not want a release of care letter.Pt is requesting a referral to have her procedure closer to where she lives.Please advise and phone pt. at number in contacts.Elysia Montoya Psjc 02/22/2018 8:36 AM SignedPatient calling to see if Dr. Murdock can do referral for her to get procedurecloser to home; not to be released from his care.Please call her back at [phone].Elysia Dos Santos 02/22/2018 8:37 AM SignedPlease fax letter over to [phone].Clint Park LPN 02/27/2018 10:18 AM SignedSpoke with patient and she wanted to know if knew of a physician inthe area that she lived that could do the ketamine infusion.I explained most likely he would not have this information she would need tocheck around in her area with other pain providers to see if they do theinfusions. She said [place] found one in the [place] area but they want money upfront and [...] Status:Closed by MAGED MURDOCK MD on 02/28/18 [facility] CNOVon 02-10-2018 CNOV Office Visit ([facility]) -------DAKOTARADHA ([id number]) 1970 FDate Time Provider Department02/10/18 10:45 AM MAGED MURDOCK During your visit today, we recorded the following information about you: Pulse Respiration Blood pressure Weight 80/minute 16/minute 132/47 69.9 kgBenjourdan Murdock MD 02/11/2018 1:30 PM AddendumSUBJECTIVE:The patient presents to The [facility] Pain Management Department for afollow-up appointment [...] [facility] results in scanned [...] other than HPI.Data scribed by above mentioned MA/GROCERY CLERK CHECKING/RN/PA, and personally reviewed andverified by physician. Maged [...] treatment plan. Patient agreeswith above. Maged Murdock, [facility]2017Referring Provider: LINDSEY AGUILAR [[id number]]Allergies As of Date: 02/10/2018(No Known Allergies)Date Reviewed: [...] INVALID FOR* 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] INVALID FOR*Letter [facility]2017Maged [facility]dockChildren[facility] for RehabilitationDepartment of Pain [address] [place], [place] [phone] [phone] Suzanne M Bailey:Thank you for seeing me [...] any questions. Sincerely, Maged Murdock MDEncounter Number: [id number] Status:Closed by MAGED MURDOCK MD on 02/11/18 Normal [facility] PROGRESSon 02-10-2018 Protein mass conc HNO ID: [id number] thor: Maged Jolleyervice: (none)Author Type: PhysicianType: Progress NotesFiled: 02/11/2018 1:30 PMNote Text:SUBJECTIVE:The patient presents to [facility] Pain Management Departmentfor a follow-up appointment [...] other than HPI.Data scribed by above mentioned MA/GROCERY CLERK CHECKING/RN/PA, and personally reviewed andverified by physician. Maged [...] with above. Maged Murdock, MDSeptember 2017 Normal [facility] CNOVon 01-10-2018 CNOV Office Visit ([facility]) -------RADHA DUNCAN ([id number]) 1970 FDate Time Provider Department01/10/18 1:00 PM DEVANTE YAN ([facility]) [facility] During your visit today, we recorded the following information about you: Pulse Blood pressure Weight 85/minute 127/47 70.3 kgDevante Yan APRN.CNP 01/10/2018 2:13 PM SignedSUBJECTIVE:The patient presents to The [facility] Pain Management Department for afollow-up appointment [...] and C4-C5 secondaryto DDDAnterior mechanical fusion of S5-9-0RYKSRM OF SYSTEMS:GENERAL: (-) weight loss, (+)malaise, (-)fevers.HEENT:(+)headache [...] other than HPI.Data scribed by above mentioned MA/GROCERY CLERK CHECKING/RN/PA, and personally reviewed andverified by Devante Yan [...] resulting treatment plan. Patient agreeswith above.Devante Yan APRN.Sophiagust 2017Referring Provider: ULYSSES RICHARDSON JR [[id number]]Allergies As of Date: 01/10/2018(No Known Allergies)Date Reviewed: 01/10/2018Reviewed by: Clint Park GROCERY CLERK CHECKING - Fully AssessedReason for Visit: Follow Up [...] INVALID FOR*Follow-up and Disposition History RecordedEncounter Number: [id number] Status:Closed by DEVANTE YAN CNP on 01/10/18 Normal [facility] PROGRESSon 01-09-2018 Protein mass conc HNO ID: [id number] thor: Devante Pereyra ([employer] Operator Helper) HillService: (none)Author Type: Nurse PractitionerType: Progress NotesFiled: 01/10/2018 2:13 PMNote Text:SUBJECTIVE:The patient presents to [facility] Pain Management Departmentfor a follow-up appointment [...] to moderate foraminal narrowing at C3-C4, and C4-A7nokboxqqy to DDDAnterior mechanical fusion of W0-7-8DJCQCH OF SYSTEMS:GENERAL: (-) weight loss, (+)malaise, (-)fevers.HEENT:(+)headache [...] other than HPI.Data scribed by above mentioned MA/GROCERY CLERK CHECKING/RN/PA, and personally reviewed andverified by Devante Yan [...] Patientagrees with above.Devante Yan APRN.CNPAugeorgiana 2017 Normal [facility] CNPNon 12-21-2017 CNPN Telephone ([facility]) -------RADHA DUNCAN ([id number]) 1970 FDate Time Provider Department12/21/17 MAGED MURDOCK During your visit today, we recorded the following information about you:Lorena Araiza 12/21/2017 10:31 AM AddendumPatient calling in to inquire if you have received [facility].Please advisJacob Park LPN 12/22/2017 3:15 PM SignedSpoke with patient and informed her that we did receive the thoracic MRI whichwas normal.We did not receive the cervical MRI. She will call [place] and have them refaxit.Kami Zheng Workleader 12/26/2017 9:53 AM SignedPatient called back in regards to below message. Patient would like to know ifwe have received the Cervical MRI as it was refaxed 12/22. Pleasereview.Clint Park LPN 12/26/2017 11:01 AM SignedSpoke to [place] and they are refaxing it as I [...] Status:Closed by CLINT PARK LPN on 12/22/17 [facility] CNOVon 12-08-2017 CNOV Office Visit ([facility]) -------RADHA DUNCAN ([id number]) 1970 [facility] Time Provider Department12/08/17 1:30 PM MAGED MURDOCK During your visit today, we recorded the following information about you: Pulse Respiration Blood pressure Weight 62/minute 16/minute 105/40 68.9 kgMaged Murdock MD 12/08/2017 6:06 PM SignedReferring Or Consulting Physician:Lindsey Aguilar, PA[address] 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 Maged [...] also during rena-operative period. we dont have sdxb-fyfwijp-fpniyxlu for disability, likely to hamper rapid recovery [...] she did have severe postprocedure pain in [place] [facility] handsDirect patient care time spent: [...] consulting physician above via electronicrecord, fax, or mail.Aishwarya Joyner 2017Referring Provider: LINDSEY AGUILAR [[id number]]Allergies As of Date: 12/08/2017(No Known Allergies)Date Reviewed: 12/08/2017Reviewed by: Kayla Sparks LPN - Fully AssessedReason for Visit: New Patient [172]Primary Visit Diagnosis:Facet syndrome (HCC) [M46.90] Other Visit Diagnoses:Pain in thoracic spine [M54.6] Radiculopathy, cervical region [M54.12] Vitamin D deficiency [E55.9] Localized swelling, mass and lump, trunk [R22.2] Cervical post-laminectomy syndrome [M96.1] Cervical spondylosis without myelopathy [M47.812] Current smoker [F17.200] Malaise and fatigue [R53.81, R53.83] Spinal stenosis of cervical region [M48.02]Order(s):C-REACTIVE PROTEIN (CRP) [SQCRP] Order #: [id number] FUTURE SED RATE WESTERGREN [SQWSR] Order #: [id number] FUTURE TSH BLD [SQTSH] Order #: [id number] FUTURE IRON + TIBC [SQIRON] Order #: [id number] FUTURE VITAMIN D 25 HYDROXY [SQVITD] Order #: [id number] FUTURE MRI THORACIC SPINE WO/W IVCON [[id number]] Order #: [id number] FUTURE iv contrast (will be provided with [...] EachRfl: 0 MRI CERVICAL SPINE WO IVCON [[id number]] Order #: [id number] FUTUREPrescriptions as of 12/08/2017 Sig: OXCARBAZEPINE 150 [...] is not on file.Letter TextJuly 2017Maged Murdock [facility] [id number] [place], [place] [phone] [phone] Radha M [place]:Thank you for seeing me today. Based on [...] medications for the issues above, and [facility] would be the next [facility]. Afterthat, further testing could be done to get to the bottom of your problems.Please call with any questions. 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 Maged [...] she did have severepost procedure pain in [place] [facility] handsDirect patient care time spent: [...] record, fax, or mail.Aishwarya Joyner 2017 Normal [facility] Encounters Encounter Date Encounter Type Care Provider Facility Start: 08-22-2023 End: 08-23-2023 ambulatory ULYSSES RICHARDSON [facility] Start: 08-15-2023 End: 09-14-2023 ambulatory [facility] Start: 07-18-2023 End: 08-15-2023 ambulatory [facility] Start: 03-06-2020 End: 03-07-2020 Patient encounter procedure PEREZ LESTER Facility: Start: 04-27-2018 End: 04-28-2018 Patient encounter procedure PROVIDER UNKNOWN Facility:[facility] Start: 02-10-2018 End: 02-13-2018 Patient encounter MAGED MURDOCK [facility] Start: 01-10-2018 End: 01-11-2018 Patient encounter DEVANTE Roddy YAN [facility] Start: 12-08-2017 End: 12-09-2017 Patient encounter MAGED MURDOCK [facility] Procedures Date Procedure Procedure Detail Performing Clinician Start: 03-06-2020 End: 03-06-2020 Microscopic examination of blood, culture PEREZ LESTER Comment on above: Performed By: #### D RUGRPD #### [facility] [address] [place] [id number] [address] Santanaen Payers Date Payer Category Payer Unknown [id number] 1970 Unknown [id number] [id number] [id number] 1970 Unknown [id number] 2.16.84 [id number] 1970 Unknown [id number] 2.16.8 [id number] 1970 Unknown [id number] 2.16.8 [id number] 1970 Unknown [id number] 2.16.8 [id number] 1960 Unknown [id number] Unknown [id number] Summary Purpose Family History No Family History Records FoundNo Family History Records FoundNo Family History Records FoundNo Family History Records Found Advance Directives No Advanced Directives Records FoundNo Advanced Directives Records FoundNo Advanced Directives Records FoundNo Advanced Directives Records Found Additional Source Comments INFORMATION SOURCE (unrecogn ized section and content) DATE CREATED AUTHOR 04/03/2018 [facility] DATE CREATED AUTHOR AUTHOR'S ORGANIZ ATION 05/03/2018 [facility] DATE CREATED AUTHOR AUTHOR'S ORGANIZ ATION 04/09/2020 [facility] DATE CREATED AUTHOR AUTHOR'S ORGANIZ ATION 09/15/2023 [facility] FOR RECORDS PERTAINING TO PATIENTS WHO [...] BE BASED ON THE PRIMARY CLINICAL RECORDS. [facility]. provides no warranty or guarantee of the accuracy or completeness of information in this document.
--- NOTE | 2023-09-18 09:58 | US_ITS ---
[address] [address] Patient Name: RAHEEM DUNCAN MRN: [id number] date: 1970 Sex: F Assigned Patient Location: ER Current Patient Location: ER Accession/Order Number: [id number] Exam Date: 09/18/2023 10:53 Report Date: 09/18/2023 12:10 At the request of: ARISTEO RIOS Procedure: US venous doppler LE BI Ultrasound venous duplex scan right lower extremity CLINICAL: Recent surgery. Leg swelling TECHNIQUE: Ibarra-scale, color-flow, and Spectral Doppler examination of the right lower extremity were performed with and without provocative maneuvers. FINDINGS: Sonographic examination of the right lower extremity deep venous system to include the common femoral, superficial femoral and popliteal veins, demonstrates normal compressibility, color-flow, respiratory variation, and augmentation. The origin and proximal segment of the greater saphenous vein also demonstrates normal compression and color-flow. There is normal color-flow in the peroneal, posterior tibial, and anterior tibial veins. US/US venous doppler LE BI IMPRESSION: No deep venous thrombosis of the right lower extremity. Ultrasound venous duplex scan left lower extremity CLINICAL: Recent surgery. Leg swelling. TECHNIQUE: Ibarra-scale, color-flow, and Spectral Doppler examination of the left lower extremity were performed with and without provocative maneuvers. FINDINGS: Sonographic examination of the left lower extremity deep venous system to include the common femoral, superficial femoral and popliteal veins, demonstrates normal compressibility, color-flow, respiratory variation, and augmentation. The origin and proximal segment of the greater saphenous vein also demonstrates normal compression and color-flow. There is normal color-flow in the peroneal, posterior tibial, and anterior tibial veins. There is some edema in the soft tissues of the calf and ankle. IMPRESSION: No deep venous thrombosis of the left lower extremity. Electronically authenticated by: EDSON GAYTAN Date: 09/18/2023 12:10
--- NOTE | 2023-09-18 09:58 | ECG_ITS ---
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
--- NOTE | 2023-09-18 09:58 | XR_ITS ---
The [address] [address] Patient Name: RAHEEM DUNCAN MRN: [id number] date: 1970 Sex: F Assigned Patient Location: ER Current Patient Location: ER Accession/Order Number: [id number] Exam Date: 09/18/2023 10:18 Report Date: 09/18/2023 10:42 At the request of: ARISTEO RIOS Procedure: XR chest 1V EXAM: XR chest 1V HISTORY: . Peripheral edema . COMPARISON: None. TECHNIQUE: Single view of the chest FINDINGS: Heart and vascularity are unremarkable. Lungs are free of focal infiltrates. There are couple linear densities in the left midlung field consistent with platelike atelectasis. Left lung is unremarkable. EKG leads overlie the chest. XR/XR chest 1V IMPRESSION: Linear atelectasis in the right midlung field. No infiltrates noted. Electronically authenticated by: EDSON GAYTAN Date: 09/18/2023 10:42
[2023-09-18 10:34] LABS: Basophils Absolute Auto 0.1 10^3/uL (0.0-0.1); Basophils Percent Auto 0.4 % (0.2-2.0); Eosinophils Absolute Auto 0.2 10^3/uL (0.0-0.7); Eosinophils Percent Auto 1.4 % (0.9-7.0); Hematocrit 37.6 % (36.0-48.0); Hemoglobin 11.9 g/dL (12.0-16.0); Immature Granulocytes Abs Auto 0.09 10^3/uL (0.00-0.03); Immature Granulocytes Pct Auto 0.6 % (0.0-0.5); Lymphocytes Absolute Auto 1.9 10^3/uL (1.2-3.8); Lymphocytes Percent Auto 11.7 % (20.5-60.0); Mean Corpuscular HGB Conc 31.6 g/dL (29.9-35.2); Mean Corpuscular Hemoglobin 32.2 pg (26.7-34.0); Mean Corpuscular Volume 101.9 fL (81.0-99.0); Mean Platelet Volume 9.2 fL (9.5-13.5); Monocytes Percent Auto 6.1 % (1.7-12.0); Neutrophils Absolute Auto 12.8 10^3/uL (1.4-6.5); Neutrophils Percent Auto 79.8 % (43.0-75.0); Platelet Count 316 10^3/uL (150-450); Red Blood Count 3.69 10^6/uL (4.20-5.40)
[2023-09-18 10:50] LABS: Anion Gap 14.3; BUN Creatinine Ratio 24.2; Calcium 9.4 mg/dL (8.5-10.1); Carbon Dioxide 24.6 mmol/L (21.0-32.0); Chloride 104 mmol/L (98-107); Estimated GFR (African America >60 (>=60); Estimated GFR (Non-African Ame >60 (>=60); Glucose 91 mg/dL (74-106); Sodium 140 mmol/L (136-145)
[2023-09-18 10:51] LABS: Potassium 2.9 mmol/L (3.5-5.1)
--- NOTE | 2023-09-18 11:28 | ED_ITS ---
HPI - Skin/Abscess/Foreign Bdy General Chief complaint: Skin/Abscess/Foreign Body Stated complaint: POST OP COMPLICATIONS Time Seen by Provider: 09/18/23 09:41 Mode of arrival: walk-in History of Present Illness HPI narrative: 53-year-old female presents for 2 issues. She has swelling in both legs that she has had for an extended period of time. Its gotten worse in the last week or 2 since she had her back surgery. She states her family doctor does not do a nything about her legs. She also had back surgery and has had some clear drainage from it. She does not have a follow-up appointment until October. No fever or purulent discharge. She has noticed that the skin around the wound is erythematous. Related Data Home Medications ?Medication ?Instructions ?Recorded ?Confirmed aspirin 81 mg tablet,delayed 81 mg PO DAILY 08/17/23 09/02/23 release (Adult Aspirin Regimen) calcium carbonate 600 mg-vitamin 1 tab PO DAILY 08/17/23 09/02/23 D3 5 mcg (200 unit) tablet (Calcium 600 + D(3)) duloxetine 60 mg capsule,delayed 60 mg PO DAILY 08/17/23 09/02/23 release (Cymbalta) esomeprazole magnesium 40 mg 40 mg PO DAILY 08/17/23 09/02/23 capsule,delayed release gabapentin enacarbil 600 mg 600 mg PO QPM 08/17/23 09/02/23 tablet,extended release (Horizant ER) hydromorphone 1 mg/mL injection 1 mg Q2H 08/17/23 solution ibuprofen 800 mg tablet (IBU) 800 mg PO Q12H 08/17/23 09/02/23 pyridoxine (vitamin B6) 50 mg 50 mg PO DAILY 08/17/23 09/02/23 capsule rosuvastatin 5 mg tablet (Crestor) 5 mg PO DAILY 08/17/23 09/02/23 vitamin B complex 1 tab PO DAILY 08/17/23 09/02/23 Previous Rx's ?Medication ?Instructions ?Recorded cephalexin 500 mg capsule 500 mg PO QID 10 days #40 caps 09/18/23 Allergies Allergy/AdvReac Type Severity Reaction Status Date / Time morphine AdvReac overdose Verified 08/17/23 11:10 Review of Systems ROS Narrative A ten point review of systems is negative except as noted above. [facility] Medical History (Updated 09/18/23 @ 11:27 by Yeison Medley MD) DDD (degenerative disc disease) Osteopenia ?M85.80 - Other specified disorders of bone density and structure, unspecified site (ICD-10) Back pain ?M54.9 - Dorsalgia, unspecified (ICD-10) Depression ?F32.A - Depression, unspecified (ICD-10) Spinal stenosis ?M48.00 - Spinal stenosis, site unspecified (ICD-10) Neuropathy ?G62.9 - Polyneuropathy, unspecified (ICD-10) Migraine ?G43.909 - Migraine, unspecified, not intractable, without status migrainosus (ICD-10) GERD (gastroesophageal reflux disease) ?K21.9 - Gastro-esophageal reflux disease without esophagitis (ICD-10) Delayed recovery from anesthesia Menopause ?Z78.0 - Asymptomatic menopausal state (ICD-10) Surgical History (Updated 08/17/23 @ 11:42 by Cathy Sánchez NP) S/P insertion of intrathecal pump ?Z98.890 - Other specified postprocedural states (ICD-10) S/P cervical spinal fusion ?Z98.1 - Arthrodesis status (ICD-10) Family History (Updated 08/17/23 @ 11:24 by Cathy Sánchez NP) Other Family history of colon cancer Family history of diabetes mellitus Social History (Updated 08/17/23 @ 11:18 by Cathy Sánchez NP) Within the past year, how often did you have a drink containing alcohol: never Score interpretation: A score less than 3 is consistent with normal alcohol consumption. Smoking status: Current every day smoker What tobacco products do you use: cigarettes Packs per day: 1 Years smoked: 39 Smoking pack-years: 39.00 Non-prescribed substance use: denies use Highest level of school completed/degree received: high school graduate Exam Narrative Exam Narrative: Nurses note and vital signs reviewed and patient is not hypoxic. General: The patient appears well and in no apparent distress. Patient is resting comfortably on cart. Skin: Warm, dry, no pallor noted. There is no rash noted. Head: Normocephalic, atraumatic Eye: Normal conjunctiva, no drainage Ears, Nose, Mouth, and Throat: oral mucosa is moist. Nares patent. Cardiovascular: Regular Rate and Rhythm Respiratory: Patient is in no distress, no accessory muscle use, lungs are clear to auscultation, no wheezing, rales or rhonchi Back: Surgical wound has no dehiscence. The surrounding area is erythematous but there is no purulent drainage. GI: Soft and nontender Musculoskeletal: Bilateral lower extremity edema present Neurological: A&O, normal speech Psychiatric: Cooperative Constitutional Vital Signs, click to edit/add: Last Vital Signs Temp 98 F 09/18/23 09:43 Pulse 78 09/18/23 11:10 Resp 22 H 09/18/23 11:10 BP 122/49 09/18/23 11:00 Pulse Ox 95 09/18/23 11:23 Course Vital Signs Vital signs: Vital Signs Temperature 98 F 09/18/23 09:43 Pulse Rate 96 H 09/18/23 09:43 Respiratory Rate 18 09/18/23 09:43 Blood Pressure 141/56 09/18/23 09:43 Pulse Oximetry 100 09/18/23 09:43 Temperature 98 F 09/18/23 09:43 Pulse Rate 78 09/18/23 11:10 Respiratory Rate 22 H 09/18/23 11:10 Blood Pressure 122/49 09/18/23 11:00 Pulse Oximetry 95 09/18/23 11:23 MDM - Skin/Abscess/Foreign Bdy MDM Narrative Medical decision making narrative: No evidence of DVT. She will be placed on a course of Keflex for the skin erythema and she will follow-up with her surgeon. She is referred to cardiology because of the leg swelling. Treatment diagnosis and follow-up were discussed with the patient. Differential Diagnosis Differential diagnosis: Likely abscess of skin or subcutaneous tissue and other (Peripheral edema) Lab Data Attestation: I reviewed the patient's lab results. Labs: Lab Results 09/18/23 Range/Units 10:24 WBC 16.0 H (4.0-11.0) 10^3/uL RBC 3.69 L (4.20-5.40) 10^6/uL Hgb 11.9 L (12.0-16.0) g/dL Hct 37.6 (36.0-48.0) % MCV 101.9 H (81.0-99.0) fL MCH 32.2 (26.7-34.0) pg MCHC 31.6 (29.9-35.2) g/dL RDW 14.0 (11.0-15.0) % Plt Count 316 (150-450) 10^3/uL MPV 9.2 L (9.5-13.5) fL Neut % (Auto) 79.8 H (43.0-75.0) % Lymph % (Auto) 11.7 L (20.5-60.0) % [place] % (Auto) 6.1 (1.7-12.0) % Eos % (Auto) 1.4 (0.9-7.0) % Baso % (Auto) 0.4 (0.2-2.0) % Neut # (Auto) 12.8 H (1.4-6.5) 10^3/uL Lymph # (Auto) 1.9 (1.2-3.8) 10^3/uL [place] # (Auto) 1.0 H (0.3-0.8) 10^3/uL Eos # (Auto) 0.2 (0.0-0.7) 10^3/uL Baso # (Auto) 0.1 (0.0-0.1) 10^3/uL Abs Immat Gran (auto) 0.09 H (0.00-0.03) 10^3/uL Imm/Tot Granulo (auto) 0.6 H (0.0-0.5) % Sodium 140 (136-145) mmol/L Potassium 2.9 L* (3.5-5.1) mmol/L Chloride 104 (98-107) mmol/L Carbon Dioxide 24.6 (21.0-32.0) mmol/L Anion Gap 14.3 BUN 16.0 (7.0-18.0) mg/dL Creatinine 0.66 (0.55-1.02) mg/dL Est GFR ( Amer) >60 (>=60) Est GFR (Non-Af Amer) >60 (>=60) BUN/Creatinine Ratio 24.2 Glucose 91 (74-106) mg/dL Calcium 9.4 (8.5-10.1) mg/dL Imaging Data Chest x-ray: Radiologist's impression: ITS Impressions Chest X-Ray 09/18/23 09:58 IMPRESSION: Linear atelectasis in the right midlung field. No infiltrates noted. Electronically authenticated by: EDSON GAYTAN Date: 09/18/2023 10:42 Venous Doppler negative Discharge Plan Discharge Stand Alone Forms: Portal Instructions Chief Complaint: Skin/Abscess/Foreign Body Clinical Impression: Edema, peripheral Patient Disposition: Home, Self-Care Time of Disposition Decision: 11:27 Condition: Good Mode of Transportation: Private Vehicle Prescriptions / Home Meds: New cephalexin 500 mg capsule 500 mg PO QID 10 Days Qty: 40 0RF No Action calcium carbonate-vitamin D3 [Calcium 600 + D(3)] 600 mg-5 mcg (200 unit) tab let 1 tab PO DAILY vitamin B complex Tablet 1 tab PO DAILY duloxetine [Cymbalta] 60 mg capsule,delayed release(DR/EC) 60 mg PO DAILY Horizant 600 mg tablet extended release 600 mg PO QPM Rx Instructions: administer daily at approximately 5 PM with food/evening meal aspirin [Adult Aspirin Regimen] 81 mg tablet,delayed release (DR/EC) 81 mg PO DAILY rosuvastatin [Crestor] 5 mg tablet 5 mg PO DAILY ibuprofen [IBU] 800 mg tablet 800 mg PO Q12H Hold Instructions: Resume on 03/06/24. hydromorphone 1 mg/mL solution 1 mg Q2H Rx Instructions: via implanted pain pump pyridoxine (vitamin B6) 50 mg capsule 50 mg PO DAILY esomeprazole magnesium 40 mg capsule,delayed release(DR/EC) 40 mg PO DAILY Print Language: Estonian Instructions: Leg Edema (ED) Referrals: ULYSSES RICHARDSON MD [Primary Care Provider] - 1 week Maxime Fajardo MD [Physician] - 1 week
== END 2023-09-18 11:37 | disposition home or self-care (01) ==
PROVIDERS: Emergency Provider Emergency Medicine; PCP Internal Medicine
DX: R60.9 Edema, unspecified (principal); M85.80 Other specified disorders of bone density and structure, unspecified site; F32.A Depression, unspecified; K21.9 Gastro-esophageal reflux disease without esophagitis; G62.9 Polyneuropathy, unspecified; M48.00 Spinal stenosis, site unspecified; Z98.1 Arthrodesis status; F17.210 Nicotine dependence, cigarettes, uncomplicated; Z78.0 Asymptomatic menopausal state; Z98.890 Other specified postprocedural states; Z79.82 Long term (current) use of aspirin; Z79.899 Other long term (current) drug therapy
CPT/HCPCS: 36415; 71045; 80048; 85025; 93005; 93970; 99285

== ENCOUNTER 2023-11-04 09:13 | Outpatient (OUT) | payer OTHER, SELFPAY ==
--- NOTE | 2023-11-04 | XR_ITS ---
The [address] [address] Patient Name: RAHEEM DUNCAN MRN: [id number] date: 1970 Sex: F Assigned Patient Location: Current Patient Location: Accession/Order Number: [id number] Exam Date: 11/04/2023 09:22 Report Date: 11/07/2023 07:51 At the request of: RADHA GARLAND Procedure: XR lumbar spine 2-3V EXAMINATION: XR lumbar spine 2-3V HISTORY: LUMBAR SPINE PAIN COMPARISON: 08/31/2023 FINDINGS: BONES: Normal alignment of the lumbar spine with no acute fracture or spondylolisthesis. Posterior decompression and transpedicular fusion L3-L4. No mechanical failure. Mild degenerative spondylosis and facet osteoarthropathy DISC SPACES: Normal. No significant disc height narrowing, subluxation, or endplate abnormality. PARASPINOUS: Negative. No paraspinous abnormality is seen. OTHER: Negative. XR/XR lumbar spine 2-3V IMPRESSION: Stable lumbar fusion Electronically authenticated by: EDSON ARCHIBALD Date: 11/07/2023 07:51
--- OUTSIDE RECORDS SUMMARY | 2023-11-04 09:19 | XMS_ITS | CCD ---
Author Organization [facility] Care Team Providers Care Wood Science Professor Name Role Phone MAGED MURDOCK Unavailable Unavailable LINDSEY AGUILAR (PA) Unavailable Unavail able DEVANTE YAN (DERRICK FOLLOWER) Unavailable Unavailabl e TEJAS RICHARDSON JR Unavailable Unavail able MAGED MURDOCK Unavailable Unavailable LINDSEY AGUILAR (PA) Unavailable Unavail able UNKNOWN, PROVIDER Unavailable Unavailable UNKNOWN, PROVIDER Unavailable Unavailable DYLAN, TEJAS Unavailable Unavailable DYLAN, TEJAS Unavailable Unavailable PEREZ LESTER Admitting Unavailable TEJAS RICHARDSON Primary Care Unavailable AZAR MAN Consulting Unavailable PEREZ LESTER Attending Unavailable PEREZ LESTER Consulting Unavailable MAT CASEY Consulting Unavailable Fela Smith Consulting Unavailable WALI BUSTILLOS Consulting Unavailable SHAIKH SALES Consulting Unavailable RADHA COLLADO Referring Unavailable TEJAS RICHARDSON JR Primary Care Unavailable RADHA COLLADO Referring Unavailable TEJAS RICHARDSON JR Primary Care Unavailable DYLAN BARGER TEJAS L Referring Unavailable DYLAN BARGER, TEJAS L Primary Care Unavailable Tejas Richardson DO Primary Care Unavail able Pavel Rodriges MD Attending Unavailable Pavel Rodriges MD Attending Unavailable Radha Collado MD Referring Unavailabl e Tejas Richardson DO Primary Care Unavail able Hanane Jolly Attending U navailable Latashaone , Tejas Sanders Primary Care Unavail able Allergies Allergy Classification Reported Allergen(s) Allergy Type Date of Onset Reaction(s) Facility (1 source) Morphine; Translations: [MORPHINE] Drug Allergy 10-18-2022 [facility] Repository Problems Problem Classification Problem Date Documented Date Episodic/Chronic Complication of device; implant or graft (1 source) Breakdown (mechanical) of other specified internal prosthetic devices, implants and grafts, initial encounter; Translations: [BRKDWN OTH INTRL PROS DEVC GFT INIT] Onset: 11-03-2020 Episodic Fluid and electrolyte disorders (1 source) [...] Test Name Value Interpretation Reference Range Facility .eGFRon 10-26-2023 GFR/1.73 sq M.predicted MDRD (S/P/Bld) [Vol rate/Area] mL/min/{1.73_m2} Normal >=60 [facility] Comment on above: Order Comment: Order added by Discern rule Result Comment: [facility] have implemented the eGFR calculation approach that does not have a coefficient for race and that conforms to the NKF-ASN Task Force Recommendations. Stages of Chronic Kidney Disease GFR Stage 3a Mild to moderate loss of kidney function 59 to 45 Stage 3b Moderate to severe loss of kidney function 44 to 33 Stage 4 Severe loss of kidney function 29 to 15 Stage 5 Kidney failure Less than 15 GFR calculated using the CKD-Epi Creatinine Equation (2020): eGFR = 142 X min(SCr/?, 1)? X max(SCr /?, 1)-1.200 X 0.9938Age X 1.012 [if female] Abbreviations/Units: eGFR (estimated glomerular filtration rate) = mL/min/1.73 m2 SCr (standardized serum creatinine) = mg/dL ? = 0.7 (females) or 0.9 (males) ? = -0.241 (females) or -0.302 (males) min = indicates the minimum of SCr/? or 1 max = indicates the maximum of SCr/? or 1 Age = years Performed By: #### E GFR #### [address] [address] Basic Metabolic Profileon Anion gap [Moles/Vol] 10 mmol/L Normal 4-12 [facility] Comment on above: Performed By: #### C [id number] #### [address] [address] Calcium [Mass/Vol] 9.4 mg/dL Normal 8.5-10.3 [facility] Comment on above: Performed By: #### C [id number] #### [address] [address] Chloride [Moles/Vol] 101 mmol/L Normal 98-110 [facility] Comment on above: Performed By: #### C [id number] #### [address] [place] [address] CO2 [Moles/Vol] 26 mmol/L Normal 22-32 [facility] Comment on above: Performed By: #### C [id number] #### [address] [address] Creatinine [Mass/Vol] 0.81 mg/dL Normal 0.44-1.03 [facility] Comment on above: Performed By: #### C [id number] #### [address] [address] Glucose [Mass/Vol] 82 mg/dL Normal 70-99 [facility] Comment on above: Performed By: #### C [id number] #### [address] [address] Potassium [Moles/Vol] 2.7 mmol/L Low 3.4-4.8 [facility] Comment on above: Performed By: #### C [id number] #### [address] [address] Sodium [Moles/Vol] 137 mmol/L Normal 133-142 [facility] Comment on above: Performed By: #### C [id number] #### [address] [address] Urea nitrogen [Mass/Vol] 15 mg/dL Normal 8-26 [facility] Comment on above: Performed By: #### C [id number] #### [address] [address] Urea nitrogen/Creatinin e [Mass ratio] 18.5 mg/mg Normal 10.0-20.0 [facility] Comment on above: Performed By: #### C [id number] #### [address] [address] CBC w/ Diffon 10-26-2023 Erythrocyte distribution width (RBC) [Ratio] 15.2 % High 11.6-14.8 [facility] Comment on above: Performed By: #### C BC #### [address] [address] Hematocrit (Bld) [Volume fraction] 38.9 % Normal 36.0-46.0 [facility] Comment on above: Performed By: #### C BC #### [address] [address] Hemoglobin (Bld) [Mass/Vol] 12.9 g/dL Normal 12.0-16.0 [facility] Comment on above: Performed By: #### C BC #### [address] [address] MCH (RBC) [Entitic mass] 31.5 pg Normal 27.0-35.0 [facility] Comment on above: Performed By: #### C BC #### [address] [address] MCHC 33.1 % Normal 31.0-37.0 [facility] Comment on above: Performed By: #### C BC #### [address] [address] MCV (RBC) [Entitic vol] 95.0 fL Normal 80.0-100.0 [facility] Comment on above: Performed By: #### C BC #### [address] [address] Platelet 367 x10*3/mcL Normal 150-450 [facility] Comment on above: Performed By: #### C BC #### [address] [address] Platelet mean volume (Bld) [Entitic vol] 7.7 fL Normal 6.7-10.6 [facility] Comment on above: Performed By: #### C BC #### [address] [address] RBC 4.10 x10*6/mcL Normal 3.80-5.20 [facility] Comment on above: Performed By: #### C BC #### [address] [address] WBC 12.3 x10*3/mcL High 4.5-11.0 [facility] Comment on above: Performed By: #### C BC #### [address] [address] CRPon 10-26-2023 CRP 2.71 mg/dL High 0.00-0.75 [facility] Comment on above: Result Comment: CRP measurement is useful for assessment of non-specific INFLAMMATORY RESPONSE to infection or injury AND is a sensitive MARKER of ACUTE INFLAMMATION including CARDIAC RISK ASSESSMENT. CARDIAC patients with elevated CRP are POTENTIALLY at a HIGHER RISK OF FUTURE CARDIAC EVENTS. Performed By: #### C RP #### [address] [address] Diff Autoon 10-26-2023 Baso Absolute 0.1 x10*3/mcL Normal 0.0-0.2 [facility] Comment on above: Performed By: #### . Automated Diff #### [address] [address] Basophils/100 WBC (Bld) 0.5 % Normal 0.0-1.5 [facility] Comment on above: Performed By: #### . Automated Diff #### [address] [address] Eos Absolute 0.3 x10*3/mcL Normal 0.0-0.4 [facility] Comment on above: Performed By: #### . Automated Diff #### [address] [address] Eosinophils/100 WBC (Bld) 2.1 % Normal 0.0-5.4 [facility] Comment on above: Performed By: #### . Automated Diff #### [address] [address] Lymph Absolute 2.2 x10*3/mcL Normal 1.0-4.8 [facility] Comment on above: Performed By: #### . Automated Diff #### [address] [address] Lymphocytes/100 WBC (Bld) 18.0 % Low 27.2-40.8 [facility] Comment on above: Performed By: #### . Automated Diff #### [address] [address] [place] Absolute 0.6 x10*3/mcL Normal 0.1-1.1 [facility] Comment on above: Performed By: #### . Automated Diff #### [address] [address] Monocytes/100 WBC (Bld) 4.9 % Normal 3.7-11.9 [facility] Comment on above: Performed By: #### . Automated Diff #### [address] [address] Neutro Absolute 9.2 x10*3/mcL High 1.8-7.7 [facility] Comment on above: Performed By: #### . Automated Diff #### [address] [address] Neutro Auto 74.5 % High 47.2-70.8 [facility] Comment on above: Performed By: #### . Automated Diff #### [address] [address] ESRon 10-26-2023 Sed Rate 67 mm/hr High 0-30 [facility] Comment on above: Performed By: #### E SR #### [address] [address] Infectious Disease Office/ in Noteon 10-26-2023 Infectious Disease Office/Clinic Note Assessment/Plan 1. Postoperative wound infection Most likely still has a low-grade infection with Pseudomonas. Will try her on levofloxacin to see if she can tolerate it better. Will see her back in about 2 weeks. Levofloxacin does get absorbed well. Advised her not to take at the same time as dairy, iron pills etc. If she does not improve, may need further surgery and/or IV antibiotic. Will check some baseline lab. Call if any worsening. Ordered: levoFLOXacin, 1 tabs, Oral, q24hr, X 14 days, # 14 tabs, 0 Refill(s), 11/09/23 10:12:00 EDT, Pharmacy: [facility] #[id number] Basic Metabolic Profile C-Reactive Protein Complete Blood Count w/ Differential Erythrocyte Sedimentation Rate 2. Pseudomonas infection As above Ordered: levoFLOXacin, 1 tabs, Oral, q24hr, X 14 days, # 14 tabs, 0 Refill(s), 11/09/23 10:12:00 EDT, Pharmacy: [facility] #[id number] Basic Metabolic Profile C-Reactive Protein Complete Blood Count w/ Differential Erythrocyte Sedimentation Rate Chief Complaint New pt I&D done at [facility], possible infection of back. History of Present Illness Seen today for persistent drainage after back surgery on September 01. She had L3-L4 decompression and fusion by Dr. Saint Gregory at [facility]. She was discharged home on the . She was discharged on cephalexin for 10 days. She was taken back to surgery on October 11 due to persistent drainage and wound dehiscence. She had a fluid collection which was most consistent with seroma/infection . The [place]. Cultures grew Pseudomonas and she was discharged on Cipro. She could not tolerate it and stopped it after 3 days. After the 10 days of cephalexin initially, she received cephalexin September 27 from [facility]. She apparently got doxycycline and azithromycin from her family doctor on October 02. After the second procedure she was prescribed Cipro which she could not tolerate. She continues to have drainage. Regular dressing soaked through so she is using sanitary pad. No fevers. Pain is rated a 4/10. She does get fatigued and has to sit down after walking. Appetite is good. No diarrhea or yeast infection. No diabetes. No circulation problems. She does smoke. Review of Systems She has scrapes on her legs from where her dog scratched her. Other review of systems is negative. Physical Exam Vitals & Measurements T: 36.3 ?C (Temporal Artery) HR: 76 (Peripheral) BP: 122/84 SpO2: 100 HT: 163 cm WT: 94.80 kg WT: 94.80 kg (Dosing) BMI: 35.68 Vital signs are okay. No acute distress. HEENT unremarkable. Lungs diminished. Heart regular rate and rhythm. Abdomen soft. Lumbar incision with sutures in place. Incision looks clean. No cellulitis. No induration. Minimal discomfort. Dressing has saturated somewhat. Right leg about 10-11 cm above the medial malleolus he is a 1-1/2 cm open wound with some fat visible. Edges look okay. Slight drainage noted on the dressing. Alert and oriented. Moves extremities okay. Additional Vitals BP Position/Location: Sitting, Right arm Medical Decision Making Chronic conditions NOT treated during this visit that affected my overall medical decision making: [] Treatment plans discussed but not opted for at this time: [] Prescribed medication that requires intensive monitoring for toxicity: [] I have reviewed the patient?s medication list for medication interactions/contraindicati ons and/or for upcoming procedures: [yes or no] Time Spent with the Patient I have personally spent [] minutes on this date, directly related to today's patient visit, including pre and post visit work, for this date of service. Time listed does not include time spent on separately billable services. Problem List/Past Medical History Ongoing Hyperlipidemia Obesity Tobacco use Historical No qualifying data Procedure/Surgical History Neck Surgery Stomach Pain [place] [facility] (09/02/2023) incision & drainage (10/12/2023) Medications cyclobenzaprine 10 mg oral tablet, 45 EA, 0 Refill(s), TAKE 1 TABLET BY MOUTH THREE TIMES DAILY NEEDED FOR MUSCLE SPASMS DULoxetine 60 mg oral delayed release capsule, 90 EA, 0 Refill(s), TAKE 1 CAPSULE BY MOUTH EVERY DAY ibuprofen 800 mg oral tablet, 270 EA, 0 Refill(s) levoFLOXacin 750 mg oral tablet, 750 mg= 1 tabs, Oral, q24hr Potassium Chloride (Eqv-K-Tab) 20 mEq oral tablet, extended release, 90 EA, 0 Refill(s), TAKE 1 TABLET BY MOUTH NOW AND REPEAT IN 3 HOURS THEN TAKE 1 TABLET EVERY DAY rosuvastatin 5 mg oral tablet, 90 EA, 0 Refill(s), TAKE 1 TABLET BY MOUTH EVERY NIGHT AT BEDTIME Allergies No Known Allergies Social History Substance Abuse Denies All Tobacco 5-9 cigarettes (between 1/4 to 1/2 pack)/day in last 30 days Use:. Family History Colon cancer: Aunt/Uncle. Diabetes mellitus: Grandfather (P). Health Status Family Member(s) Immunizations Vaccine Date Status SARS-CoV-2 (COVID-19) mRNA BNT-162b2 vax 11/29/2020 Recorded SARS-CoV-2 (COVID-19 (more content not included)... Normal [facility] Provider Letteron 10-26-2023 Provider Letter (Inserted Image. Shelly ble to display) Tejas Richardson DO [address] [place] [address] Re: Radha [place] Date of Visit: 10/26/[address] Richardson, Thank you for your referral to my office. Attached you will find the most recent office visit note. Please call if you have any questions or concerns. Sincerely, Pavel Rodriges MD [address] [place] [address], [address] [place] [address] The following document(s) were included in the letter: October 26, 2023 10:13:55 EDT - (10/26/2023) Infectious Disease Office Visit Note Normal [facility] ELECTROLYTESon 08-22-2023 Anion gap [Moles/Vol] 8 mmol/L Normal 5-15 [facility] Comment on above: Performed By: #### E LEC #### [facility] ([id number]) [address], [address] [place] [address] Chloride [Moles/Vol] 110 mmol/L High 98-109 [facility] Comment on above: Performed By: #### E LEC #### [facility] ([id number]) [address], [address] [place] [address] CO2 [Moles/Vol] 23 mmol/L Normal 22-32 [facility] Comment on above: Performed By: #### E LEC #### [facility] ([id number]) [address], [address] [place] [address] Potassium [Moles/Vol] 4.4 mmol/L Normal 3.5-5.0 [facility] Comment on above: Performed By: #### E LEC #### [facility] ([id number]) [address], [address] [place] [address] Sodium [Moles/Vol] 141 mmol/L Normal 134-146 [facility] Comment on above: Performed By: #### E LEC #### [facility] ([id number]) [address] [place] [address] CARDIAC AZAR ADMITon 020 CK [Catalytic activity/Vol] 915 U/L Critically high 30-135 [facility] Comment on above: Result Comment: Test repeated. Critical value verified. Performed By: #### D RUGRPD #### [facility] [address] [place] [address] Christian Mikayla CK.MB [Mass/Vol] 12.82 ng/mL Critically high <=2.37 [facility] Comment on above: Result Comment: Test repeated. Critical value verified. Performed By: #### D RUGRPD #### [facility] [address] [place] [address] Christian Mikayla INR Coag (Bld) [Relative time] SEE BELOW Normal [facility] Comment on above: Result Comment: <0.0 34 ng/ml NEGATIVE 0.034-0.119 INDETERMINATE 0.120 AMI CUT OFF Performed By: #### D RUGRPD #### [facility] [address] [place], [place] [id number] Christian Mikayla ÁNGEL 96.0 ng/mL Critically high <=61.5 [facility] Comment on above: Performed By: #### D RUGRPD #### [facility] [address] [place] [address] Christian Mikayla TROP 0.028 ng/mL Normal <=0.034 [facility] Comment on above: Performed By: #### D RUGRPD #### [facility] [address] [place] [address] Christian Mikayla CK [Catalytic activity/Vol] 1282 U/L Critically high 30-135 [facility] Comment on above: Result Comment: Test repeated. Critical value verified. Performed By: #### T ROP, CMP #### [facility] [address] [place] [address] Christian Mikayla CK.MB [Mass/Vol] 24.63 ng/mL Critically high <=2.37 Th [facility] Comment on above: Result Comment: Test repeated. Critical value verified. Performed By: #### T ROP, CMP #### [facility] [address] [place], [place] [id number] Christian Mikayla INR Coag (Bld) [Relative time] SEE BELOW Normal [facility] Comment on above: Result Comment: <0.0 34 ng/ml NEGATIVE 0.034-0.119 INDETERMINATE 0.120 AMI CUT OFF Performed By: #### T ROP, CMP #### [facility] [address] [place] [address] Christian Mikayla ÁNGEL 235.0 ng/mL Critically high <=61.5 [facility] Comment on above: Performed By: #### T ROP, CMP #### [facility] [address] [place] [address] Christian Mikayla TROP 0.033 ng/mL Normal <=0.034 [facility] Comment on above: Performed By: #### T ROP, CMP #### [facility] [address] [place] [address] Christian Mikayla CBC AUTO DIFFon 03-07-2020 Basophils (Bld) [#/Vol] 0.0 103/ul Normal 0.0-0.1 [facility] Comment on above: Performed By: #### C BC #### [facility] [address] [place], [place] [phone] Christian Mikayla Basophils/100 WBC (Bld) 0.1 % Critically low 0.2-2.0 [facility] Comment on above: Performed By: #### C BC #### [facility] [address] [place], [place] [phone] Christian Mikayla Eosinophils (Bld) [#/Vol] 0.0 103/ul Normal 0.0-0.7 [facility] Comment on above: Performed By: #### C BC #### [facility] [address] [place], [place] [phone] Christian Mikayla Eosinophils/100 WBC (Bld) 0.0 % Critically low 0.9-7.0 [facility] Comment on above: Performed By: #### C BC #### [facility] [address] [phone] Christian Mikyala Erythrocyte distribution width (RBC) [Ratio] 13.4 % Normal 11.0-15.0 [facility] Comment on above: Performed By: #### C BC #### [facility] [address] [phone] Christian Mikayla Hematocrit (Bld) [Volume fraction] 35.4 % Critically low 36.0-48.0 [facility] Comment on above: Performed By: #### C BC #### [facility] [address] [place] [address] Christian Mikayla Hemoglobin (Bld) [Mass/Vol] 11.4 g/dL Critically low 12.0-16.0 [facility] Comment on above: Performed By: #### C BC #### [facility] [address] [place] [address] Christian Mikayla IG # 0.07 10e3/ul Critically high 0.00-0.03 [facility] Comment on above: Performed By: #### C BC #### [facility] [address] [place], [place] [phone] Christian Mikayla IG % 0.4 % Normal 0.0-0.5 [facility] Comment on above: Performed By: #### C BC #### [facility] [address] [place], [place] [phone] Christian Mikayla Lymphocytes (Bld) [#/Vol] 1.1 103/ul Critically low 1.2-3.8 [facility] Comment on above: Performed By: #### C BC #### [facility] [address] [place] [address] Christian Mikayla Lymphocytes/100 WBC (Bld) 6.9 % Critically low 20.5-60.0 [facility] Comment on above: Performed By: #### C BC #### [facility] [address] [place], [place] [phone] Christian Mikayla MANUAL DIFF REQ NO Normal [facility] Comment on above: Performed By: #### C BC #### [facility] [address] [place], [place] [address] Christianvíctor Santanaen MCH (RBC) [Entitic mass] 32.7 pg Normal 26.7-34.0 [facility] Comment on above: Performed By: #### C BC #### [facility] [address] [place] [address] Christianvíctor Degroot MCHC (RBC) [Mass/Vol] 32.2 g/dL Normal 29.9-35.2 [facility] Comment on above: Performed By: #### C BC #### [facility] [address] [place] [address] Christianvíctor Degroot MCV (RBC) [Entitic vol] 101.4 fL Critically high 81.0-99.0 [facility] Comment on above: Performed By: #### C BC #### [facility] [address] [place] [address] Christian Mikayla Monocytes (Bld) [#/Vol] 1.4 103/ul Critically high 0.3-0.8 [facility] Comment on above: Performed By: #### C BC #### [facility] [address] [place] [address] Christian Mikayla Monocytes/100 WBC (Bld) 8.6 % Normal 1.7-12.0 [facility] Comment on above: Performed By: #### C BC #### [facility] [address] [place] [address] Christian Mikayla Neutrophils (Bld) [#/Vol] 13.4 103/ul Critically high 1.4-6.5 [facility] Comment on above: Performed By: #### C BC #### [facility] [address] [place] [address] Christian Mikayla Neutrophils/100 WBC (Bld) 84.0 % Critically high 43.0-75.0 [facility] Comment on above: Performed By: #### C BC #### [facility] [address] [place] [address] Christian Mikayla Platelet mean volume (Bld) [Entitic vol] 9.5 fL Normal 9.5-13.5 [facility] Comment on above: Performed By: #### C BC #### [facility] [address] [place], [place] [address] Christian Mikayla Platelets (Bld) [#/Vol] 207 103/ul Normal 150-450 [facility] Comment on above: Performed By: #### C BC #### [facility] [address] [place] [address] Christian Mikayla RBC (Bld) [#/Vol] 3.49 106/ul Critically low 4.20-5.40 Th [facility] Comment on above: Performed By: #### C BC #### [facility] [address] [place], [place] [phone] Christian Mikayla WBC (Bld) [#/Vol] 16.0 103/ul Critically high 4.0-11.0 [facility] Comment on above: Performed By: #### C BC #### [facility] [address] [place], [place] [phone] Christian Mikayla PROF CHEM 8 (BAS METB)on Anion gap [Moles/Vol] 11.2 mmol/L Normal [facility] Comment on above: Performed By: #### D RUGRPD #### [facility] [address] [place], [place] [phone] Christian Mikayla Calcium [Mass/Vol] 8.3 mg/dL Critically low 8.4-10.2 [facility] Comment on above: Performed By: #### D RUGRPD #### [facility] [address] [place], [place] [phone] Christian Mikayla Chloride [Moles/Vol] 106 mmol/L Normal 98-107 [facility] Comment on above: Performed By: #### D RUGRPD #### [facility] [address] [place], [place] [phone] Christian Mikayla CO2 [Moles/Vol] 24.5 mmol/L Normal 22.0-30.0 [facility] Comment on above: Performed By: #### D RUGRPD #### [facility] [address] [place], [place] [phone] Christian Mikayla Creatinine [Mass/Vol] 0.53 mg/dL Normal 0.52-1.04 [facility] Comment on above: Performed By: #### D RUGRPD #### [facility] [address] [place], [place] [address] Christian Mikayla EGFR-AF [facility] HELENIAN >60 Normal >=60 [facility] Comment on above: Performed By: #### D RUGRPD #### [facility] [address] [place], [place] [address] Christian Mikayla EGFR-NON AF [facility] HELEN[facility] >60 Normal >=60 [facility] Comment on above: Performed By: #### D RUGRPD #### [facility] [address] [place], [place] [address] Christian Mikayla Glucose [Mass/Vol] 113 mg/dL Critically high 74-106 [facility] Comment on above: Performed By: #### D RUGRPD #### [facility] [address] [place], [place] [id number] Christian Mikayla Potassium [Moles/Vol] 3.7 mmol/L Normal 3.4-5.0 [facility] Comment on above: Performed By: #### D RUGRPD #### [facility] [address] [place], [place] [id number] Christian Mikayla Sodium [Moles/Vol] 138 mmol/L Normal 137-145 [facility] Comment on above: Performed By: #### D RUGRPD #### [facility] [address] [place], [place] [address] Christian Mikayla Urea nitrogen [Mass/Vol] 12.0 mg/dL Normal 7.0-17.0 [facility] Comment on above: Performed By: #### D RUGRPD #### [facility] [address] [place], [place] [address] Christian Mikayla Urea nitrogen/Creatinin e [Mass ratio] 22.6 mg/mg Normal [facility] Comment on above: Performed By: #### D RUGRPD #### [facility] [address] [place], [place] [address] Christian Mikayla CBC W MANUAL DIFFon 03-06-20 20 ATYPICAL LYMPH # Normal [facility] Comment on above: Performed By: #### D RUGRPD #### [facility] [address] [place], [place] [id number] Christian Mikayla ATYPICAL LYMPH % Normal [facility] Comment on above: Performed By: #### D RUGRPD #### [facility] [address] [place], [place] [id number] Christian Mikayla BAND # Normal 0.0-0.3 [facility] Comment on above: Performed By: #### D RUGRPD #### [facility] [address] [place] [address] Christian Mikayla BAND % Normal 0-5 [facility] Comment on above: Performed By: #### D RUGRPD #### [facility] [address] [place] [address] Christian Mikayla BASOM # 0.00 103/ul Normal 0.00-0.10 [facility] Comment on above: Performed By: #### D RUGRPD #### [facility] [address] [place] [address] Christian Mikayla BASOM % 0.0 % Critically low 0.2-2.0 [facility] Comment on above: Performed By: #### D RUGJONAS #### [facility] [address] [place] [address] Christian Mikayla BLAST # Normal [facility] Comment on above: Performed By: #### D RUGRPD #### [facility] [address] [place] [address] Christian Mikayla BLAST % Normal [facility] Comment on above: Performed By: #### D RUGRPD #### [facility] [address] [place] [address] Christian Mikayla CORRECTED WBC Normal 4.0-11.0 [facility] Comment on above: Performed By: #### D RUGRPD #### [facility] [address] [place] [address] Christian Mikayla Eosinophils (Bld) [#/Vol] 0.00 103/ul Normal 0.00-0.70 [facility] Comment on above: Performed By: #### D RUGRPD #### [facility] [address] [place], [place] [address] Christian Mikayla Eosinophils/100 WBC (Bld) 0.0 % Critically low 0.9-7.0 [facility] Comment on above: Performed By: #### D RUGRPD #### [facility] [address] [place], [place] [address] Christian Mikayla Erythrocyte distribution width (RBC) [Ratio] 13.2 % Normal 11.0-15.0 [facility] Comment on above: Performed By: #### D RUGRPD #### [facility] [address] [place] [id number] Christian Mikayla Hematocrit (Bld) [Volume fraction] 44.1 % Normal 36.0-48.0 [facility] Comment on above: Performed By: #### D RUGRPD #### [facility] [address] [place], [place] [id number] Christian Mikayla Hemoglobin (Bld) [Mass/Vol] 13.9 g/dl Normal 12.0-16.0 [facility] Comment on above: Performed By: #### D RUGRPD #### [facility] [address] [place] [id number] Christian Mikayla LYMPHM # 0.26 103/ul Critically low 1.20-3.80 [facility] Comment on above: Performed By: #### D RUGRPD #### [facility] [address] [place], [place] [id number] Christian Mikayla LYMPHM% 1.0 % Critically low 20.5-60.0 [facility] Comment on above: Performed By: #### D RUGRPD #### [facility] [address] [place] [id number] Christian Mikayla MCH (RBC) [Entitic mass] 32.6 pg Normal 26.7-34.0 [facility] Comment on above: Performed By: #### D RUGRPD #### [facility] [address] [id number] Christian Mikayla MCHC (RBC) [Mass/Vol] 31.5 g/dl Normal 29.9-35.2 [facility] Comment on above: Performed By: #### D RUGRPD #### [facility] [address] [id number] Christianvíctor Degroot MCV (RBC) [Entitic vol] 103.3 fL Critically high 81.0-99.0 [facility] Comment on above: Performed By: #### D RUGRPD #### [facility] [address] [place], [place] [id number] Christian Mikayla METAMYELOCYTE # Normal [facility] Comment on above: Performed By: #### D RUGRPD #### [facility] [address] [place], [place] [phone] Christian Mikayla METAMYELOCYTE % Normal [facility] Comment on above: Performed By: #### D RUGRPD #### [facility] [address] [place] [address] Christian Mikayla MONOM# 1.32 103/ul Critically high 0.30-0.80 [facility] Comment on above: Performed By: #### D RUGRPD #### [facility] [address] [place] [address] Christian Mikayla MONOM% 5.0 % Normal 1.7-12.0 [facility] Comment on above: Performed By: #### D RUGRPD #### [facility] [address] [place] [address] Christian Mikayla MYELOCYTE # Normal [facility] Comment on above: Performed By: #### D RUGRPD #### [facility] [address] [place] [address] Christian Mikayal MYELOCYTE % Normal [facility] Comment on above: Performed By: #### D RUGRPD #### [facility] [address] [place], [place] [phone] Christian Mikayla NRBC Normal [facility] Comment on above: Performed By: #### D RUGRPD #### [facility] [address] [place] [address] Christian Mikayla Platelet mean volume (Bld) [Entitic vol] 9.6 fL Normal 9.5-13.5 [facility] Comment on above: Performed By: #### D RUGRPD #### [facility] [address] [place], [place] [address] Christian Degroot Platelets (Bld) [#/Vol] 268 103/ul Normal 150-450 [facility] Comment on above: Performed By: #### D RUGRPD #### [facility] [address] [place] [address] Christian Degroot RBC (Bld) [#/Vol] 4.27 106/ul Normal 4.20-5.40 [facility] Comment on above: Performed By: #### D RUGRPD #### [facility] [address] [place], [place] [phone] Christian Degroot SEG # 24.82 103/ul Critically high 1.40-6.50 [facility] Comment on above: Performed By: #### D RUGRPD #### [facility] [address] [place], [place] [id number] Christian Degroot Segmented neutrophils/100 WBC (Bld) 94.0 % Critically high 43.0-75.0 [facility] Comment on above: Performed By: #### D RUGRPD #### [facility] [address] [place], [place] [phone] Christian Degroot WBC (Bld) [#/Vol] 26.4 103/ul Critically high 4.0-11.0 [facility] Comment on above: Performed By: #### D RUGRPD #### [facility] [address] [place], [place] [id number] Christian Degroot CPKon 03-06-2020 CK [Catalytic activity/Vol] 464 U/L Critically high 30-135 [facility] Comment on above: Result Comment: test repeated critical value verified Performed By: #### C K #### [facility] [address] [place], [place] [phone] Christian Degroot CT ABD/PELV W CONon 03-06-20 [...] by: MAT CASEY Date: 2020-03-06 18:45 Normal [facility] CT STROKE HEAD WOon 03-06-20 [...] #### D RUGRPD #### [facility] [address] [place] [address] Christian Mikayla BAR Negative Normal NEGATIVE [facility] Comment on above: Performed By: #### D RUGRPD #### [facility] [address] [place] [address] Christian Mikayla BUP Negative Normal NEGATIVE [facility] Comment on above: Performed By: #### D RUGRPD #### [facility] [address] [place] [address] Christian Mikayla BZO Negative Normal NEGATIVE [facility] Comment on above: Performed By: #### D RUGRPD #### [facility] [address] [place] [address] Christian Mikayla RITCHIE Negative Normal NEGATIVE [facility] Comment on above: Performed By: #### D RUGRPD #### [facility] [address] [place] [address] Christian Mikayla CUT-OFFS SEE BELOW Normal The [...] #### D RUGRPD #### [facility] [address] [place] [address] Christian Mikayla DRUG CUT HEADER DRUG CLASS TEST SYST EM CUT-OFF CONCENTRATIONS ARE FOLLOWS: Normal [facility] Comment on above: Performed By: #### D RUGRPD #### [facility] [address] [place] [address] Christian Mikayla mAMP Negative Normal NEGATIVE [facility] Comment on above: Performed By: #### D RUGRPD #### [facility] [address] [place] [address] Christian Mikayla MTD Negative Normal NEGATIVE [facility] Comment on above: Performed By: #### D RUGRPD #### [facility] [address] [place] [address] Christian Mikayla OPI Positive Normal NEGATIVE [facility] Comment on above: Performed By: #### D RUGRPD #### [facility] [address] [place] [address] Christian Mikayla OXY Negative Normal NEGATIVE [facility] Comment on above: Performed By: #### D RUGRPD #### [facility] [address] [place] [address] Christian Mikayla PCP Negative Normal NEGATIVE [facility] Comment on above: Performed By: #### D RUGRPD #### [facility] [address] [place] [address] Christian Mikayla PPX Negative Normal NEGATIVE [facility] Comment on above: Performed By: #### D RUGRPD #### [facility] [address] [place] [address] Christian Mikayla TCA Negative Normal NEGATIVE [facility] Comment on above: Performed By: #### D RUGRPD #### [facility] [address] [place] [address] Christian Mikayla THC Negative Normal NEGATIVE [facility] Comment on above: Performed By: #### D RUGRPD #### [facility] [address] [place] [address] Christian Mikayla ER URINE PROFILEon 0 Bilirubin [Mass/Vol] Negative Normal NEGATIVE [facility] Comment on above: Performed By: #### E RUR #### [facility] [address] [place] [address] Christian Mikayla BLOOD Negative Normal NEGATIVE [facility] Comment on above: Performed By: #### E RUR #### [facility] [address] [place] [address] Christian Mikayla Clarity (U) CLEAR Normal [facility] Comment on above: Performed By: #### E RUR #### [facility] [address] [place] [address] Christian Mikayla Color (U) YELLOW Normal YELLOW [facility] Comment on above: Performed By: #### E RUR #### [facility] [address] [place] [address] Christian Mikayla ERUAHD A micrscopic examina tion will be performed if indicated. Normal [facility] Comment on above: Performed By: #### E RUR #### [facility] [address] [place] [address] Christian Mikayla Glucose [Mass/Vol] Negative Normal NEGATIVE [facility] Comment on above: Performed By: #### E RUR #### [facility] [address] [place] [address] Christian Mikayla Ketones Ql (U) Negative Normal NEGATIVE [facility] Comment on above: Performed By: #### E RUR #### [facility] [address] [place] [address] Christian Mikayla Nitrite Ql (U) Negative Normal NEGATIVE [facility] Comment on above: Performed By: #### E RUR #### [facility] [address] [place] [address] Christian Mikayla pH (Bld) 6.0 Normal 5-9 [facility] Comment on above: Performed By: #### E RUR #### [facility] [address] [place] [address] Christian Mikayla Protein (U) [Mass/Vol] TRACE Normal [facility] Comment on above: Performed By: #### E RUR #### [facility] [address] [place] [address] Christian Mikayla SPEC GRAVITY >=1.030 Normal 1.005-<=1.02 5 [facility] Comment on above: Performed By: #### E RUR #### [facility] [address] [place] [address] Christian Degroot UR MICRO IND NOT INDICATED Normal [facility] Comment on above: Performed By: #### E RUR #### [facility] [address] [place], [place] [phone] Christian Degroot Urobilinogen Qn (U) 0.2 EU/dl Normal [facility] Comment on above: Performed By: #### E RUR #### [facility] [address] [place], [place] [phone] Christian Degroot WBC (Bld) [#/Vol] Negative Normal NEGATIVE [facility] Comment on above: Performed By: #### E RUR #### [facility] [address] [place], [place] [id number] Christian Degroot ETHANOL (BLD ALC)on 03-06-20 20 Ethanol [Mass/Vol] NOTE: 80 mg/dl is th e legal limit for a blood alcohol level Normal [facility] Comment on above: Performed By: #### E TH #### [facility] [address] [place] [address] Christian Degroot Ethanol [Mass/Vol] mg/dL Normal [facility] Comment on above: Performed By: #### E TH #### [facility] [address] [place], [place] [phone] Christian Degroot HEMOGRAM AND PLATELon 2019 WBC (Bld) [#/Vol] 23.5 103/ul Critically high 4.0-11.0 [facility] Comment on above: Performed By: #### H H #### [facility] [address] [place] [address] Christian Degroot LACTATE/LACTIC ACIDon 2019 Lactate [Moles/Vol] 0.7 mmol/L Normal 0.7-2.0 [facility] Comment on above: Performed By: #### L ACT #### [facility] [address] [place] [address] Christian Degroot MYOGLOBINon 03-06-2020 Myoglobin [Mass/Vol] 918.0 ng/mL Critically high <=61.5 [facility] Comment on above: Result Comment: test repeated critical value verified Performed By: #### M YO #### [facility] [address] [place], [place] [id number] Christian Degroot POINT OF CARE GLUCOSEon 02-14 Glucose [Mass/Vol] 117 mg/dL Critically high 74-106 [facility] Comment on above: Performed By: #### D RUGRPD #### [facility] [address] [place], [place] [phone] Christian Degroot PROF 14(COMP METB)on 020 Albumin [Mass/Vol] 3.3 g/dL Critically low 3.5-5.0 e [facility] Comment on above: Performed By: #### T BLAYNE, CMP #### [facility] [address] [place] [address] Christian Dgeroot Albumin/Globulin [Mass ratio] 1.1 {ratio} Normal [facility] Comment on above: Performed By: #### T ROP, CMP #### [facility] [address] [place] [address] Christian Mikayla ALP [Catalytic activity/Vol] 69 U/L Normal 38-126 [facility] Comment on above: Performed By: #### T ROP, CMP #### [facility] [address] [place] [address] Christian Degroot ALT [Catalytic activity/Vol] 30 U/L Normal 9-52 [facility] Comment on above: Performed By: #### T ROP, CMP #### [facility] [address] [place], [place] [phone] Christian Mikayla Anion gap [Moles/Vol] 16.8 mmol/L Normal [facility] Comment on above: Performed By: #### T ROP, CMP #### [facility] [address] [place], [place] [address] Christian Mikayla AST [Catalytic activity/Vol] 29 U/L Normal 14-36 [facility] Comment on above: Performed By: #### T ROP, CMP #### [facility] [address] [place] [address] Christian Mikayla Bilirubin Ql (U) 0.4 mg/dL Normal 0.2-1.3 [facility] Comment on above: Performed By: #### T ROP, CMP #### [facility] [address] [place] [address] Christian Mikayla Calcium [Mass/Vol] 8.7 mg/dL Normal 8.4-10.2 [facility] Comment on above: Performed By: #### T ROP, CMP #### [facility] [address] [place] [address] Christian Mikayla Chloride [Moles/Vol] 104 mmol/L Normal 98-107 [facility] Comment on above: Performed By: #### T ROP, CMP #### [facility] [address] [place] [address] Christian Mikayla CO2 [Moles/Vol] 22.6 mmol/L Normal 22.0-30.0 [facility] Comment on above: Performed By: #### T ROP, CMP #### [facility] [address] [place] [address] Christian Mikayla Creatinine [Mass/Vol] 0.92 mg/dL Normal 0.52-1.04 [facility] Comment on above: Performed By: #### T ROP, CMP #### [facility] [address] [place], [place] [address] Christian Mikayla EGFR-AF [facility] HELENIAN >60 Normal >=60 [facility] Comment on above: Performed By: #### T ROP, CMP #### [facility] [address] [place] [address] Christian Mikayla EGFR-NON AF [facility] HEL[facility] >60 Normal >=60 [facility] Comment on above: Performed By: #### T ROP, CMP #### [facility] [address] [place], [place] [phone] Christian Mikayla Globulin (S) [Mass/Vol] 3.0 g/dL Normal [facility] Comment on above: Performed By: #### T ROP, CMP #### [facility] [address] [place] [address] Christian Mikayla Glucose [Mass/Vol] 130 mg/dL Critically high 74-106 [facility] Comment on above: Performed By: #### T ROP, CMP #### [facility] [address] [id number] Christian Mikayla Potassium [Moles/Vol] 4.4 mmol/L Normal 3.4-5.0 [facility] Comment on above: Performed By: #### T ROP, CMP #### [facility] [address] [id number] Christian Mikayla Protein [Mass/Vol] 6.3 g/dL Normal 6.1-8.2 [facility] Comment on above: Performed By: #### T ROP, CMP #### [facility] [address] [id number] Christian Mikayla Sodium [Moles/Vol] 139 mmol/L Normal 137-145 [facility] Comment on above: Performed By: #### T ROP, CMP #### [facility] [address] [id number] Christian Mikayla Urea nitrogen [Mass/Vol] 18.0 mg/dL Critically high 7.0-17.0 [facility] Comment on above: Performed By: #### T ROP, CMP #### [facility] [address] [place] [id number] Christian Mikayla Urea nitrogen/Creatinin e [Mass ratio] 19.6 mg/mg Normal [facility] Comment on above: Performed By: #### T ROP, CMP #### [facility] [address] [id number] Christian Mikayla RESPIRATORY PANEL PLUSon Adenovirus NOT DETECTED Normal NOT DETECTED [facility] Comment on above: Performed By: #### D RUGRPD #### [facility] [address] [id number] Christian Mikayla B. Parapertusis NOT DETECTED Normal NOT DETECTED [facility] Comment on above: Performed By: #### D RUGRPD #### [facility] [address] [id number] Christian Mikayla B. Pertussis NOT DETECTED Normal NOT DETECTED [facility] Comment on above: Performed By: #### D RUGRPD #### [facility] [address] [place] [address] Christian Mikayla Chlamydia Pneumoniae NOT DETECTED Normal NOT DETECTED [facility] Comment on above: Performed By: #### D RUGRPD #### [facility] [address] [place] [address] Christian Mikayla Coronavirus 229E NOT DETECTED Normal NOT DETECTED [facility] Comment on above: Performed By: #### D RUGRPD #### [facility] [address] [place] [address] Christian Mikayla Coronavirus HKU1 NOT DETECTED Normal NOT DETECTED [facility] Comment on above: Performed By: #### D RUGRPD #### [facility] [address] [place] [address] Christian Mikayla Coronavirus NL63 NOT DETECTED Normal NOT DETECTED [facility] Comment on above: Performed By: #### D RUGRPD #### [facility] [address] [place] [address] Christian Mikayla Coronavirus OC43 NOT DETECTED Normal NOT DETECTED [facility] Comment on above: Performed By: #### D RUGRPD #### [facility] [address] [place] [address] Christian Mikayla Influenza A H1 2009 NOT DETECTED Normal NOT DETECTED [facility] Comment on above: Performed By: #### D RUGRPD #### [facility] [address] [place] [address] Christian Mikayla Influenza B NOT DETECTED Normal NOT DETECTED [facility] Comment on above: Performed By: #### D RUGRPD #### [facility] [address] [place] [address] Christian Mikayla Metapneumovirus NOT DETECTED Normal NOT DETECTED [facility] Comment on above: Performed By: #### D RUGRPD #### [facility] [address] [place] [address] Christian Mikayla Mycoplas. Pneumoniae NOT DETECTED Normal NOT DETECTED [facility] Comment on above: Performed By: #### D RUGRPD #### [facility] [address] [place] [address] Christian Mikayla Parainfluenza 1 NOT DETECTED Normal NOT DETECTED [facility] Comment on above: Performed By: #### D RUGRPD #### [facility] [address] [place] [address] Christian Mikayla Parainfluenza 2 NOT DETECTED Normal NOT DETECTED [facility] Comment on above: Performed By: #### D RUGRPD #### [facility] [address] [place] [address] Christian Mikayla Parainfluenza 3 NOT DETECTED Normal NOT DETECTED [facility] Comment on above: Performed By: #### D RUGRPD #### [facility] [address] [place] [address] Christian Mikayla Parainfluenza 4 NOT DETECTED Normal NOT DETECTED [facility] Comment on above: Performed By: #### D RUGRPD #### [facility] [address] [place] [address] Christian Mikayla Rhino/Enterovirus NOT DETECTED Normal NOT DETECTED [facility] Comment on above: Performed By: #### D RUGRPD #### [facility] [address] [place] [address] Christian Mikayla RP2 Header 1 RESPIRATORY PANEL: VIRUSES Normal [facility] Comment on above: Performed By: #### D RUGRPD #### [facility] [address] [place] [address] Christian Mikayla RP2 Header 2 RESPIRATORY PANEL: BACTERIA Normal [facility] Comment on above: Performed By: #### D RUGRPD #### [facility] [address] [place] [address] Christian Mikayla RP2 Header 4 EUA SEE BELOW Normal [facility] Comment on above: Result Comment: This test is not yet approved or cleared by the [place] FDA. When there are no FDA-approved or cleared tests available, and other criteria are met, FDA can make tests available under an emergency access mechanism called an Emergency Use Authorization (EUA). The EUA for this test is supported by the [employer] of Health and Human Service?s (HHS?s) declaration [...] #### D RUGRPD #### [facility] [address] [place] [address] Christian Degroot RSV NOT DETECTED Normal NOT DETECTED [facility] Comment on above: Performed By: #### D RUGRPD #### [facility] [address] [place] [address] Chrsitian Mikayla SARS-CoV-2: COVID-19 NOT DETECTED Normal NOT DETECTED [facility] Comment on above: Performed By: #### D RUGRPD #### [facility] [address] [place] [address] Christian Mikayla TROPONIN - Ion 03-06-2020 Troponin I.cardiac [Mass/Vol] 0.016 ng/mL Normal <=0.034 [facility] Comment on above: Performed By: #### T ROP, CMP #### [facility] [address] [place] [address] Christian Mikayla Troponin I.cardiac [Mass/Vol] SEE BELOW Normal [facility] Comment on above: Result Comment: <0.0 34 ng/ml NEGATIVE 0.034-0.119 INDETERMINATE 0.120 AMI CUT OFF Performed By: #### T ROP, CMP #### [facility] [address] [place] [address] Christian Degroot XR CHEST 1 Von 03-06-2020 [...] 04-27-2018 CT 3D CERVICAL SPINE WITH CONTRAST [facility] [address] [place] [id number] Patient Name: RADHA DUNCAN : 1970Sex: FAge: Race: WhiteMRN: [id number]. Location: 85Patient Status: OVisit #: [id number] Date: 04/10/2018 12:10:00 PMCompleted Date: 04/27/2018 10:58 AMRequesting Provider: MARY DIAL Attending Provider: MARY DIAL Report Copy To: TEJAS RICHARDSON Signs & Symptoms: M54.12 Radiculopathy, cervical region [id number]: Nyla MYELOGRAM AUTH [id number] VALID 04/11/18-07/12/[address] [facility] [id number] JYComments: Exam: CT 3D CERVICAL SPINE WITH CONTRASTAccession #: [id number] CT 3D CERVICAL SPINE WITH CONTRAST 04/27/2018 [...] findings. Electronically signed by:Oli Sanders. Transcribed by: [email or web address], User Resident: MANDEEP YOUNGElectronically Signed by: OLI SANDERS @ 04/27/2018 01:02 PMI personally read this/these film(s) with this resident Normal The [facility] CT 3D LUMBAR SPINE W CONTRAS Ton 04-27-2018 CT 3D LUMBAR SPINE W CONTRAST [facility] [address] [place] [address] Patient Name: RADHA DUNCAN : 1970Sex: FAge: Race: WhiteMRN: [id number]. Location: 85Patient Status: DVisit #: [id number] Date: 04/10/2018 12:10:00 PMCompleted Date: 04/27/2018 10:59 AMRequesting Provider: MARY DIAL Attending Provider: MRAY DIAL Report Copy To: TEJAS RICHARDSNO Signs & Symptoms: M54.16 Radiculopathy, lumbar region [id number]: Nyla MYELOGRAM AUTH [id number] VALID 04/11/18-07/12/18 PER [employer] [id number] JYComments: Exam: CT 3D LUMBAR SPINE W CONTRASTAccession #: [id number] CT 3D LUMBAR SPINE W CONTRAST 04/27/2018 [...] findings. Electronically signed by:Martínez Skelton. Transcribed by: [email or web address], User Resident: MANDEEP YOUNGElectronically Signed by: MARTÍNEZ SKELTON @ 04/27/2018 05:36 PMI personally read this/these film(s) with this resident Normal The [facility] ENTIRE MYELOGRAMon 8 ENTIRE MYELOGRAM [facility] [address] [place] [address] Patient Name: RADHA DUNCAN : 1970Sex: FAge: Race: WhiteMRN: [id number]. Location: 85Patient Status: OVisit #: [id number] Date: 04/10/2018 12:10:00 PMCompleted Date: 04/27/2018 10:19 AMRequesting Provider: MARY DIAL Attending Provider: MARY DIAL Report Copy To: TEJAS RICHARDSON Signs & Symptoms: M54.16 Radiculopathy, lumbar region U63Xjxfcgj: [place] CT MYELOGRAMComments: , , , Ordering Provider - MARY DIAL MD , Exam: ENTIRE MYELOGRAMAccession #: [id number] ENTIRE MYELOGRAM 04/27/2018 10:19 AM EST SIGNS [...] and risks are acceptable. Consent was obtained. Timeout:[place] protocol timeout verification performed. PROCEDURE:Estimated blood loss:None [...] findings. Electronically signed by:Oli Sanders. Transcribed by: [email or web address], User Resident: MANDEEP YOUNGElectronically Signed by: OLI SANDERS @ 04/27/2018 01:01 PMI personally read this/these film(s) with this resident Normal [facility] Comment on above: Order Comment: , , = ========= , Ordering Provider - MARY DIAL MD , Ta 02-20-2018 CNPYamilex Telephone ([facility]) -------RADHA DUNCAN ([id number]) 1970 [facility] Time Provider Mgswrdtjmi25/8/18 MAGED MURDOCK During your visit today, we recorded the following information about you:Jacinta Philippe [facility] Patient Service Spec 02/20/2018 8:05 AM [...] from his care.Please call her back at [phone].Elysia Montoya Psr 02/22/2018 8:37 AM SignedPlease fax letter over to [phone].Clint Park LPN 02/27/2018 10:18 AM SignedSpoke with [...] for the patient, including a name of katharina in her areaI handed it to her on the day of the last visit personallyJimi Joyner As of Date: 02/20/2018(No Known Allergies)Date Reviewed: 02/10/2018Reviewed by: Kayla Sparks CELLAR PACKER - Fully AssessedReason for Visit: Letter [264]Prescriptions [...] Status:Closed by MAGED MURDOCK MD on 02/28/18 Normal [facility] CNOVon 02-10-2018 CNOV Office Visit ([facility]) -------RADHA DUNCAN ([id number]) 1970 FDate Time Provider Department02/10/18 10:45 AM MAGED MURDOCK During your visit today, we recorded the following information about you: Pulse Respiration Blood pressure Weight 80/minute 16/minute 132/47 69.9 kgMaged Murdock MD 02/11/2018 1:30 PM AddendumSUBJECTIVE:The patient presents to The [facility] Pain Management Department for afollow-up appointment [...] percocet was last taken 02/09/2018 in the [facility] records were reviewed.Imaging results in scanned documents [...] other than HPI.Data scribed by above mentioned MA/CELLAR PACKER/RN/PA, and personally reviewed andverified by physician. Maged [...] and resulting treatment plan. Patient agreeswith above. PAU Joynereptember 2017Referring Provider: LINDSEY AGUILAR [[id number]]Allergies As of Date: 02/10/2018(No Known Allergies)Date Reviewed: [...] FOR* 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] INVALID FOR*Letter TextSept2017Maged MurdockSum[facility] Health [facility] Campuspartment of Pain [address]ms[address] [place], [place] [phone] [phone] Suzanne M Bailey:Thank you for seeing me [...] any questions. Sincerely, Maged Murdock MDEncounter Number: [id number] Status:Closed by MAGED MURDOCK MD on 02/11/18 [facility] 02-10-2018 Protein mass conc HNO ID: [id number] thor: Maged Jolleyervice: (none)Author Type: PhysicianType: Progress NotesFiled: 02/11/2018 1:30 PMNote Text:SUBJECTIVE:The patient presents to [facility] Pain Management Departmentfor a follow-up appointment [...] medication: percocet was last taken 02/09/2018 in thesdte morningRelevant OARRS records were reviewed.Imaging results in [...] other than HPI.Data scribed by above mentioned MA/CELLAR PACKER/RN/PA, and personally reviewed andverified by physician. Maged [...] and resulting treatment plan. Patientagrees with above. PAU Joynereptember 2017 Normal [facility] CNOVon 01-10-2018 CNOV Office Visit ([facility]) -------RADHA DUNCAN ([id number]) 1970 FDate Time Provider Department01/10/18 1:00 PM DEVANTE YAN (ARLENE) [facility] During your visit today, we recorded the following information about you: Pulse Blood pressure Weight 85/minute 127/47 70.3 kgDevante Yan APRN.CNP 01/10/2018 2:13 PM SignedSUBJECTIVE:The patient presents to The [facility] Pain Management Department for afollow-up appointment [...] and C4-C5 secondaryto DDDAnterior mechanical fusion of Q7-9-9TGYSDW OF SYSTEMS:GENERAL: (-) weight loss, (+)malaise, (-)fevers.HEENT:(+)headache [...] other than HPI.Data scribed by above mentioned MA/CELLAR PACKER/RN/PA, and personally reviewed andverified by Devante Yan [...] resulting treatment plan. Patient agreeswith above.Devante Yan APRN.[facility] 2017Referring Provider: TEJAS RICHARDSON JR [[id number]]Allergies As of Date: 01/10/2018(No Known Allergies)Date Reviewed: [...] INVALID FOR*Follow-up and Disposition History RecordedEncounter Number: [id number] Status:Closed by DEVANTE YAN CNP on 01/10/18 Normal [facility] PROGRESSon 01-09-2018 Protein mass conc HNO ID: [id number] thor: Devante Pereyra (Polisher Hand) HillService: (none)Author Type: Nurse PractitionerType: Progress NotesFiled: 01/10/2018 2:13 PMNote Text:SUBJECTIVE:The patient presents to [facility] Pain Management Departmentfor a follow-up appointment [...] to moderate foraminal narrowing at C3-C4, and C4-Q4rcxwjztmu to DDDAnterior mechanical fusion of W5-4-4FRYLPG OF SYSTEMS:GENERAL: (-) weight loss, (+)malaise, (-)fevers.HEENT:(+)headache [...] other than HPI.Data scribed by above mentioned MA/CELLAR PACKER/RN/PA, and personally reviewed andverified by Devante Yan [...] resulting treatment plan. Patientagrees with above.Devante Yan APRN.[facility] Lumpkinchristen 2017 Normal [facility] Ta 12-21-2017 [facility] Tele[facility] ([facility]) -------RADHA DUNCAN ([id number]) 1970 FDate Time Provider Department12/21/17 MAGED MURDOCK During your visit today, we recorded the following information about you:Lorena Araiza 12/21/2017 10:31 AM AddendumPatient calling in to inquire if you have received [facility].Please advisJacob Park LPN 12/22/2017 3:15 PM SignedSpoke with patient and informed her that we did receive the thoracic MRI whichwas normal.We did not receive the cervical MRI. She will call [facility] and have them refaxit.Kami Zheng Workleader 12/26/2017 9:53 AM SignedPatient called back in regards to below message. Patient would like to know ifwe have received the Cervical MRI as it was refaxed 12/22. Pleasereview.Clint Park LPN 12/26/2017 11:01 AM SignedSpoke to [facility] and they are refaxing it as I [...] Status:Closed by CLINT PARK LPN on 12/22/17 Normal [facility] CNOVon 12-08-2017 CNOV Office Visit ([facility]) -------DAKOTARADHA ([id number]) 1970 FDate Time Provider Department12/08/17 1:30 PM MAGED MURDOCK During your visit today, we recorded the following information about you: Pulse Respiration Blood pressure Weight 62/minute 16/minute 105/40 68.9 kgJosenjourdan Murdock MD 12/08/2017 6:06 PM SignedReferring Or Consulting Physician:Lindsey Aguilar, PA[address] [place] [address]BZENP COMPLAINT: pain in my neck, shoulders, thoracic [...] Number of children: 0Occupational 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 Maged [...] also during rena-operative period. we dont have nozq-flzbltz-hwpsseza for disability, likely to hamper rapid recovery [...] she did have severe postprocedure pain in [facility] handsDirect patient care time spent: [...] mail.Maged Murdock MDJuly 2017Referring Provider: LINDSEY AGUILAR [[id number]]Allergies As of Date: 12/08/2017(No Known Allergies)Date Reviewed: [...] region [M48.02]Order(s):C-REACTIVE PROTEIN (CRP) [SQCRP] Order #: [id number] FUTURE SED RATE WESTERGREN [SQWSR] Order #: [id number] FUTURE TSH BLD [SQTSH] Order #: [id number] FUTURE IRON + TIBC [SQIRON] Order #: [id number] FUTURE VITAMIN D 25 HYDROXY [SQVITD] Order #: [id number] FUTURE MRI THORACIC SPINE WO/W IVCON [[id number]] Order #: [id number] FUTURE iv contrast (will be provided with [...] EachRfl: 0 MRI CERVICAL SPINE WO IVCON [[id number]] Order #: [id number] FUTUREPrescriptions as of 12/08/2017 Sig: OXCARBAZEPINE 150 [...] discontinue is not on file.Letter TextJuly 2017Maged MurdockSumma Health [facility] Campuspartment of Pain [address], [place] [phone] [phone] Radha Duncan:Thank you for seeing me today. [...] medications for the issues above, and [facility] next [facility]. Afterthat, further testing could be done to get to the bottom of your problems.Please call with any questions. 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 Maged [...] she did have severepost procedure pain in [facility] handsDirect patient care time spent: [...] consulting physician above viaelectronic record, fax, or mail.Maged Murdock MDJuly 2017 Normal [facility] Encounters Encounter Date Encounter Type Care Provider Facility Start: 10-26-2023 End: 10-26-2023 ambulatory Tejas Richardson DO Facility:[facility] Start: 10-26-2023 End: 10-26-2023 ambulatory Pavel Rodriges MD Facility:[facility] Start: 08-22-2023 End: 08-23-2023 ambulatory TEJAS RICHARDSON JR [facility] Start: 08-15-2023 End: 09-14-2023 ambulatory RADHA COLLADO [facility] Start: 07-18-2023 End: 08-[facility] Start: 03-06-2020 End: 03-07-2020 Patient encounter procedure PEREZ LESTER Facility: Start: 04-27-2018 End: 04-28-2018 Patient encounter procedure PROVIDER UNKNOWN Facility:[facility] Start: 02-10-2018 End: 02-13-2018 Patient encounter MAGED MURDOCK [facility] Start: 01-10-2018 End: 01-11-2018 Patient encounter DEVANTE Roddy (VANESSA YAN [facility] Start: 12-08-2017 End: 12-09-2017 Patient encounter MAGED MURDOCK [facility] Procedures Date Procedure Procedure Detail Performing Clinician Start: 03-06-2020 End: 03-06-2020 Microscopic examination of blood, culture PEREZ LESTER Comment on above: Performed By: #### D RUGRPD #### [facility] [address] [place] [address] Christian Mikayla Payers Date Payer Category Payer Unknown 2022 Unknown [id number] 1970 Unknown [id number] 2.16.8 [id number] 1970 Unknown [id number] 2.16.84 [id number] 1970 Unknown [id number] 2.16.8 [id number] 1970 Unknown [id number] 2.16.8 [id number] 1970 Unknown [id number] 2.16.8 [id number] 1970 Unknown [id number] 2.16. [id number] 1970 Unknown [id number] 2.16. [id number] 1970 Unknown [id number] 2.16. [id number] 1960 Unknown [id number] Unknown [id number] Summary Purpose Family History No Family History Records FoundNo Family History Records FoundNo Family History Records FoundNo Family History Records FoundNo Family History Records Found Advance Directives No Advanced Directives Records FoundNo Advanced Directives Records FoundNo Advanced Directives Records FoundNo Advanced Directives Records FoundNo Advanced Directives Records Found Additional Source Comments INFORMATION SOURCE (unrecogn ized section and content) DATE CREATED AUTHOR 04/03/2018 [facility] DATE CREATED AUTHOR AUTHOR'S ORGANIZ ATION 05/03/2018 [facility] DATE CREATED AUTHOR AUTHOR'S ORGANIZ ATION 04/09/2020 [facility] DATE CREATED AUTHOR AUTHOR'S ORGANIZ ATION 09/15/2023 [facility] DATE CREATED AUTHOR AUTHOR'S ORGANIZ ATION 10/27/2023 [facility] FOR RECORDS PERTAINING TO PATIENTS WHO ARE [...] ON THE PRIMARY CLINICAL RECORDS. [facility] [employer] [facility]. provides no warranty or guarantee of the accuracy or completeness of information in this document.
== END 2023-11-04 09:14 | disposition home or self-care (01) ==
LOC: EC 09:13
PROVIDERS: PCP Internal Medicine; Visit Provider Orthopaedic Surgery Orthopaedic Surgery of the Spine
DX: M54.50 Low back pain, unspecified (principal); Z98.890 Other specified postprocedural states
CPT/HCPCS: 72100

== ENCOUNTER 2023-11-21 09:42 | Outpatient (OUT) | payer OTHER, SELFPAY ==
--- NOTE | 2023-11-21 | XR_ITS ---
The [address] [address] Patient Name: RAHEEM DUNCAN MRN: [id number] date: 1970 Sex: F Assigned Patient Location: Current Patient Location: Accession/Order Number: [id number] Exam Date: 11/21/2023 09:42 Report Date: 11/22/2023 07:10 At the request of: MAGDALENA GALO Procedure: XR lumbar spine min 4V EXAMINATION: XR lumbar spine min 4V HISTORY: LUMBAR PAIN COMPARISON: 07/15/2023 FINDINGS: BONES: Posterior decompression and transpedicular fusion L3-L4. No mechanical failure. No spondylolisthesis with flexion or extension. Mild spondylosis. Moderate facet osteoarthropathy DISC SPACES: Normal. No significant disc height narrowing, subluxation, or endplate abnormality. PARASPINOUS: Negative. No paraspinous abnormality is seen. OTHER: Negative. XR/XR lumbar spine min 4V IMPRESSION: No dynamic instability Lumbar fusion with no mechanical failure Electronically authenticated by: EDSON ARCHIBALD Date: 11/22/2023 07:10
--- OUTSIDE RECORDS SUMMARY | 2023-11-21 09:52 | XMS_ITS | CCD ---
Author Organization [facility] Care Team Providers Care Technology Internship Name Role Phone MAGED MURDOCK Unavailable Unavailable LINDSEY AGUILAR (PA) Unavailable Unavail able MONICA YAN (PROFESSOR OF PHYSICS) Unavailable UnavailTEJAS Phillips JR Unavailable Unavail able MAGED MURDOCK [...] BUSTILLOS Consulting Unavailable SHAIKH SALES Consulting Unavailable NICOLE COLLADO Referring Unavailable TEJAS RICHARDSON JR Primary Care Unavailable NICOLE COLLADO Referring Unavailable TEJAS RICHARDSON JR L Primary Care Unavailable DYLAN BARGER TEJAS L Referring Unavailable DYLAN BARGER TEJAS L Primary Care Unavailable Zahira CHONG, Pavel Carr Attending Unavailable Tejas Richardson DO Primary Care Unavail able Tejas Richardson DO Primary Care Unavail able Nicole Collado MD Referring UnavailPavel Nettles MD Attending Unavailable Hanane Jolly Attending U navailable Tejas Richardson DO Primary Care Unavail able Allergies Allergy Classification [...] Test Name Value Interpretation Reference Range Facility Infectious Disease Office/Cl inic Noteon 11-10-2023 Infectious Disease Office/Clinic Note Assessment/Plan 1. Postoperative wound infection Plan: Unfortunately there is no other good oral options for coverage of Pseudomonas. She is advised to stop taking doxycycline as this will help her symptoms. I did call Dr. Montes his PA Hammad called back. She advised me to send patient back to [facility]. This is where she had her surgery done. She may need to MRI possible washout. This video game script writer did call [facility] talk to charge nurse Dagmar gave her a heads up on arrival of patient. They are advised to call orthopedic team regarding any further interventions for MRI results. Will wait and see what happens after ER visit. Follow-up pending MRI. Instructions to patient: If condition worsens in any way or you develop any signs or symptoms of infection please notify the office right away. Call for questions. Chief Complaint 2wk f/u post op wound infection of back History of Present Illness 53-year-old female being seen today 2-week follow-up for postoperative wound infection. During last office visit 10/26/2023 she was advised to continue her Levaquin. Patient noted to have a mildly elevated white blood cells. Also noted to have elevated CRP at 2.71 and sed rate is 67. Patient did call the office on 11/03 saying that she is not having any diarrhea and she was actually constipated complaining of some dizziness could not eat or focus. Decision was made to take a break over the weekend and see how she does. Being off the medication she does feel better reports it took her 3 days to get back to her normal self. She started taking oral doxycycline. Reports in this past week she is having increased pain in her legs. No numbness or tingling just increased pain. She continues to have open wound in her lower back about pencil size is draining no foul odors coming from it no redness. She is getting around okay. She does report she has had a couple incidents where she has barely made it to the bathroom does not typically have this. Reports almost is incontinent of urine. Denies any incontinence of stool. Biggest complaint is increased plane and drainage. Does not feel short of breath. No chest pain or heart palpitations. Does not feel lightheaded or dizzy. No shortness of breath or cough. No abdominal pain, nausea, vomiting or diarrhea does report some headaches however has history of migraines no visual changes. Persistent drainage after back surgery on September 01. She had L3-L4 decompression and fusion by Dr. Saint Gregory at [facility]. She was discharged home on the . She was discharged on cephalexin for 10 days. She was taken back to surgery on October 11 due to persistent drainage and wound dehiscence. She had a fluid collection which was most consistent with seroma/infection . [place]. Cultures grew Pseudomonas and she was discharged on Cipro. She could not tolerate it and stopped it after 3 days. Review of Systems All systems have been reviewed and are negative other than those listed in the HPI Physical Exam Vitals & Measurements HR: 99 (Peripheral) BP: 136/72 SpO2: 99 HT: 163 cm WT: 93.7 kg WT: 93.7 kg (Dosing) BMI: 35.27 Vitals reviewed look okay. Patient in no apparent distress. Conjunctiva and sclera is normal. Trach is midline. Respiratory effort is even and unlabored breath sounds are clear throughout. Heart tones are regular no murmurs auscultated. Abdomen is nondistended, nontender. Lumbar incision lower no cellulitis seen however does have 2 small open areas appears to have some greenish drainage. Noted to have drainage on her shirt. Bilateral lower extremities without edema. She ambulates in office without difficulty. Answers questions appropriately. Additional Vitals BP Position/Location: Sitting, Left arm Medical Decision Making Chronic conditions NOT treated during this visit that affected my overall medical decision making: [Hyperlipidemia and obesity] Treatment plans discussed but not opted for at this time: [] Prescribed medication that requires intensive monitoring for toxicity: [] I have reviewed the patient?s medication list for medication interactions/contraindicati ons and/or for upcoming procedures: [yes Time Spent with the Patient I have personally spent [35] minutes on this date, directly related to today's patient visit, including pre and post visit work, for this date of service. Time listed does not include time spent on separately billable services. Problem List/Past Medical History Ongoing Hyperlipidemia Obesity Tobacco use Historical No qualifying data Procedure/Surgical History Neck Surgery Stomach Pain [place] [facility] (09/02/2023) incision & drainage (10/12/2023) Medications cyclobenzaprine 10 mg oral tablet, 45 EA, 0 Refill(s), TAKE 1 TABLET BY MOUTH THREE TIMES DAILY NEEDED FOR MUSCLE SPASMS DULoxetine 60 mg oral delayed release capsule, 90 EA, 0 Refill(s), TAKE 1 CAPSULE BY MOUTH EVERY DAY ibuprofen 800 mg oral tablet, 270 EA, 0 Refill(s) Potassium Chloride ( (more content not included)... Normal [facility] .eGFRon 10-26-2023 GFR/1.73 sq M.predicted MDRD (S/P/Bld) [Vol rate/Area] mL/min/{1.73_m2} Normal >=60 [facility] Comment on above: Order Comment: Order added by Discern rule Result Comment: [facility] have implemented the eGFR [...] years Performed By: #### E GFR #### [facility] [address] [place] [address] Basic Metabolic Profileon Anion gap [Moles/Vol] 10 mmol/L Normal -12 [facility] Comment on above: Performed By: #### C [id number] #### [facility] [address] [place] [address] Calcium [Mass/Vol] 9.4 mg/dL Normal 8.5-10.3 [facility] Comment on above: Performed By: #### C [id number] #### [address] [address] Chloride [Moles/Vol] 101 mmol/L Normal 98-110 [facility] Comment on above: Performed By: #### C [id number] #### [address] [address] CO2 [Moles/Vol] 26 mmol/L Normal 22-32 [facility] Comment on above: Performed By: #### C [id number] #### [address] [address] Creatinine [Mass/Vol] 0.81 mg/dL Normal 0.44-1.03 [facility] Comment on above: Performed By: #### C [id number] #### [address] [address] Glucose [Mass/Vol] 82 mg/dL Normal 70-99 [facility] Comment on above: Performed By: #### C [id number] #### [address] [address] Potassium [Moles/Vol] 2.7 mmol/L Low 3.4-4.8 [facility] Comment on above: Performed By: #### C [id number] #### [address] [address] Sodium [Moles/Vol] 137 mmol/L Normal 133-142 [facility] Comment on above: Performed By: #### C [id number] #### [address] [address] Urea nitrogen [Mass/Vol] 15 mg/dL Normal 8-26 [facility] Comment on above: Performed By: #### C [id number] #### [address] [address] Urea nitrogen/Creatinin e [Mass ratio] 18.5 mg/mg Normal 10.0-20.0 [facility] Comment on above: Performed By: #### C [id number] #### [address] [address] CBC w/ Diffon 10-26-2023 Erythrocyte distribution width (RBC) [Ratio] 15.2 % High 11.6-14.8 [facility] Comment on above: Performed By: #### C BC #### [address] [address] Hematocrit (Bld) [Volume fraction] 38.9 % Normal 36.0-46.0 [facility] Comment on above: Performed By: #### C BC #### [address] [address] Hemoglobin (Bld) [Mass/Vol] 12.9 g/dL Normal 12.0-16.0 [facility] Comment on above: Performed By: #### C BC #### [address] [address] MCH (RBC) [Entitic mass] 31.5 pg Normal 27.0-35.0 [facility] Comment on above: Performed By: #### C BC #### [address] [address] MCHC 33.1 % Normal 31.0-37.0 [facility] Comment on above: Performed By: #### C BC #### [address] [address] MCV (RBC) [Entitic vol] 95.0 fL Normal 80.0-100.0 [facility] Comment on above: Performed By: #### C BC #### [address] [address] Platelet 367 x10*3/mcL Normal 150-450 [facility] Comment on above: Performed By: #### C BC #### [address] [address] Platelet mean volume (Bld) [Entitic vol] 7.7 fL Normal 6.7-10.6 [facility] Comment on above: Performed By: #### C BC #### [address] [address] RBC 4.10 x10*6/mcL Normal 3.80-5.20 [facility] Comment on above: Performed By: #### C BC #### [address] [address] WBC 12.3 x10*3/mcL High 4.5-11.0 [facility] Comment on above: Performed By: #### C BC #### [address] [address] CRPon 10-26-2023 CRP 2.71 mg/dL High 0.00-0.75 [facility] Comment on above: Result Comment: CRP measurement is useful for assessment of non-specific INFLAMMATORY RESPONSE to infection or injury AND is a sensitive MARKER of ACUTE INFLAMMATION including CARDIAC RISK ASSESSMENT. CARDIAC patients with elevated CRP are POTENTIALLY at a HIGHER RISK OF FUTURE CARDIAC EVENTS. Performed By: #### C RP #### [address] [address] Diff Autoon 10-26-2023 Baso Absolute 0.1 x10*3/mcL Normal 0.0-0.2 [facility] Comment on above: Performed By: #### . Automated Diff #### [address] [address] Basophils/100 WBC (Bld) 0.5 % Normal 0.0-1.5 [facility] Comment on above: Performed By: #### . Automated Diff #### [address] [address] Eos Absolute 0.3 x10*3/mcL Normal 0.0-0.4 [facility] Comment on above: Performed By: #### . Automated Diff #### [address] [address] Eosinophils/100 WBC (Bld) 2.1 % Normal 0.0-5.4 [facility] Comment on above: Performed By: #### . Automated Diff #### [address] [address] Lymph Absolute 2.2 x10*3/mcL Normal 1.0-4.8 [facility] Comment on above: Performed By: #### . Automated Diff #### [place] [id number] Lymphocytes/100 WBC (Bld) 18.0 % Low 27.2-40.8 [facility] Comment on above: Performed By: #### . Automated Diff #### [place] [id number] [place] Absolute 0.6 x10*3/mcL Normal 0.1-1.1 [facility] Comment on above: Performed By: #### . Automated Diff #### [place] [id number] Monocytes/100 WBC (Bld) 4.9 % Normal 3.7-11.9 [facility] Comment on above: Performed By: #### . Automated Diff #### [place] [id number] Neutro Absolute 9.2 x10*3/mcL High 1.8-7.7 [facility] Comment on above: Performed By: #### . Automated Diff #### [place] [address] Neutro Auto 74.5 % High 47.2-70.8 [facility] Comment on above: Performed By: #### . Automated Diff #### [place] [id number] ESRon 10-26-2023 Sed Rate 67 mm/hr High 0-30 [facility] Comment on above: Performed By: #### E SR #### [place] [address] Infectious Disease Office/Cl inic Noteon 10-26-2023 Infectious Disease Office/Clinic Note Assessment/Plan [...] tabs, 0 Refill(s), 11/09/23 10:12:00 EDT, Pharmacy: [facility] #[id number] Basic Metabolic Profile C-Reactive Protein Complete Blood Count w/ Differential Erythrocyte Sedimentation Rate 2. Pseudomonas infection As above Ordered: levoFLOXacin, 1 tabs, Oral, q24hr, X 14 days, # 14 tabs, 0 Refill(s), 11/09/23 10:12:00 EDT, Pharmacy: [facility] #[id number] Basic Metabolic Profile C-Reactive Protein Complete Blood Count w/ Differential Erythrocyte Sedimentation Rate Chief Complaint New pt I&D done at [facility], possible infection of back. History of Present Illness Seen today for persistent drainage after back surgery on September 01. She had L3-L4 decompression and fusion by Dr. Saint Gregory at [facility]. She was discharged home on the . She was discharged on cephalexin for 10 days. She was taken back to surgery on October 11 due to persistent drainage and wound dehiscence. She had a fluid collection which was most consistent with seroma/infection . [place]. Cultures grew Pseudomonas and she was discharged on Cipro. She could not tolerate it and stopped it after 3 days. After the 10 days of cephalexin initially, she received cephalexin September 27 from [facility]. She apparently got doxycycline and [...] data Procedure/Surgical History Neck Surgery Stomach Pain [place] [facility] (09/02/2023) incision & drainage (10/12/2023) Medications [...] SARS-CoV-2 (COVID-19 (more content not included)... Normal [facility] Provider Letteron 10-26-2023 Provider Letter (Inserted Image. Shelly ble to display) Tejas Richardson DO [address] [place] [address] Re: Radha Duncan Date of Visit: 10/26/[address] Richardson, Thank you for your referral to my office. Attached you will find the most recent office visit note. Please call if you have any questions or concerns. Sincerely, Pavel Rodriges MD [address] [facility], [address] [place] [address] The following document(s) were included in the letter: October 26, 2023 10:13:55 EDT - (10/26/2023) Infectious Disease Office Visit Note Normal [facility] ELECTROLYTESon 08-22-2023 Anion gap [Moles/Vol] 8 mmol/L Normal 5-15 [facility] Comment on above: Performed By: #### E LEC #### [facility] ([id number]) [address], [address] [place] [address] Chloride [Moles/Vol] 110 mmol/L High 98-109 [facility] Comment on above: Performed By: #### E LEC #### [facility] ([id number]) [address], [address] [place] [address] CO2 [Moles/Vol] 23 mmol/L Normal 22-32 [facility] Comment on above: Performed By: #### E LEC #### [facility] ([id number]) [address], [address] [place] [address] Potassium [Moles/Vol] 4.4 mmol/L Normal 3.5-5.0 [facility] Comment on above: Performed By: #### E LEC #### [facility] ([id number]) [address] [facility] [address], [address] [place] [address] Sodium [Moles/Vol] 141 mmol/L Normal 134-146 [facility] Comment on above: Performed By: #### E LEC #### [facility] ([id number]) [address], [address] [place] [address] CARDIAC AZAR ADMITon 03-07-2 020 CK [Catalytic activity/Vol] 915 U/L Critically high 30-135 [facility] Comment on above: Result Comment: Test repeated. Critical value verified. Performed By: #### D RUGRPD #### [facility] [address] [place], [place] [id number] Christian Mikayla CK.MB [Mass/Vol] 12.82 ng/mL Critically high <=2.37 [facility] Comment on above: Result Comment: Test repeated. Critical value verified. Performed By: #### D RUGRPD #### [facility] [address] [place], [place] [id number] Christian Mikayla INR Coag (Bld) [Relative time] SEE BELOW Normal [facility] Comment on above: Result Comment: <0.0 34 ng/ml NEGATIVE 0.034-0.119 INDETERMINATE 0.120 AMI CUT OFF Performed By: #### D RUGRPD #### [facility] [address] [place], [place] [id number] Christian Mikayla ÁNGEL 96.0 ng/mL Critically high <=61.5 [facility] Comment on above: Performed By: #### D RUGRPD #### [facility] [address] [place], [place] [id number] Christian Mikayla TROP 0.028 ng/mL Normal <=0.034 [facility] Comment on above: Performed By: #### D RUGRPD #### [facility] [address] [place], [place] [id number] Christian Mikayla CK [Catalytic activity/Vol] 1282 U/L Critically high 30-135 [facility] Comment on above: Result Comment: Test repeated. Critical value verified. Performed By: #### T BLAYNE, CMP #### [facility] [address] [place], [place] [id number] Christian Degroot CK.MB [Mass/Vol] 24.63 ng/mL Critically high <=2.37 Th e [facility] Comment on above: Result Comment: Test repeated. Critical value verified. Performed By: #### T BLAYNE, CMP #### [facility] [address] [place], [place] [id number] Christian Degroot INR Coag (Bld) [Relative time] SEE BELOW Normal [facility] Comment on above: Result Comment: <0.0 34 ng/ml NEGATIVE 0.034-0.119 INDETERMINATE 0.120 AMI CUT OFF Performed By: #### T BLAYNE, CMP #### [facility] [address] [place], [place] [id number] Christian Santanaen ÁNGEL 235.0 ng/mL Critically high <=61.5 [facility] Comment on above: Performed By: #### T ROP, CMP #### [facility] [address] [place], [place] [id number] Christian Mikayla TROP 0.033 ng/mL Normal <=0.034 [facility] Comment on above: Performed By: #### T ROP, CMP #### [facility] [address] [place], [place] [id number] Christian Mikayla CBC AUTO DIFFon 03-07-2020 Basophils (Bld) [#/Vol] 0.0 103/ul Normal 0.0-0.1 [facility] Comment on above: Performed By: #### C BC #### [facility] [address] [place], [place] [id number] Christian Mikayla Basophils/100 WBC (Bld) 0.1 % Critically low 0.2-2.0 [facility] Comment on above: Performed By: #### C BC #### [facility] [address] [place], [place] [id number] Christian Mikayla Eosinophils (Bld) [#/Vol] 0.0 103/ul Normal 0.0-0.7 [facility] Comment on above: Performed By: #### C BC #### [facility] [address] [place] [id number] Christian Mikayla Eosinophils/100 WBC (Bld) 0.0 % Critically low 0.9-7.0 [facility] Comment on above: Performed By: #### C BC #### [facility] [address] [place] [id number] Christian Mikayla Erythrocyte distribution width (RBC) [Ratio] 13.4 % Normal 11.0-15.0 [facility] Comment on above: Performed By: #### C BC #### [facility] [address] [place], [place] [id number] Christian Mikayla Hematocrit (Bld) [Volume fraction] 35.4 % Critically low 36.0-48.0 [facility] Comment on above: Performed By: #### C BC #### [facility] [address] [place], [place] [address] Christian Mikayla Hemoglobin (Bld) [Mass/Vol] 11.4 g/dL Critically low 12.0-16.0 [facility] Comment on above: Performed By: #### C BC #### [facility] [address] [place], [place] [address] Christian Mikayla IG # 0.07 10e3/ul Critically high 0.00-0.03 [facility] Comment on above: Performed By: #### C BC #### [facility] [address] [place], [place] [address] Christian Mikayla IG % 0.4 % Normal 0.0-0.5 [facility] Comment on above: Performed By: #### C BC #### [facility] [address] [place], [place] [address] Christian Mikayla Lymphocytes (Bld) [#/Vol] 1.1 103/ul Critically low 1.2-3.8 [facility] Comment on above: Performed By: #### C BC #### [facility] [address] [place], [place] [id number] Christian Mikayla Lymphocytes/100 WBC (Bld) 6.9 % Critically low 20.5-60.0 [facility] Comment on above: Performed By: #### C BC #### [facility] [address] [place], [place] [address] Christian Mikayla MANUAL DIFF REQ NO Normal [facility] Comment on above: Performed By: #### C BC #### [facility] [address] [place], [place] [address] Christian Mikayla MCH (RBC) [Entitic mass] 32.7 pg Normal 26.7-34.0 [facility] Comment on above: Performed By: #### C BC #### [facility] [address] [place], [place] [address] Christian Mikayla MCHC (RBC) [Mass/Vol] 32.2 g/dL Normal 29.9-35.2 [facility] Comment on above: Performed By: #### C BC #### [facility] [address] [place] [address] Christian Mikayla MCV (RBC) [Entitic vol] 101.4 fL Critically high 81.0-99.0 [facility] Comment on above: Performed By: #### C BC #### [facility] [address] [place], [place] [address] Christian Mikayla Monocytes (Bld) [#/Vol] 1.4 103/ul Critically high 0.3-0.8 [facility] Comment on above: Performed By: #### C BC #### [facility] [address] [place], [place] [address] Christian Mikayla Monocytes/100 WBC (Bld) 8.6 % Normal 1.7-12.0 [facility] Comment on above: Performed By: #### C BC #### [facility] [address] [place], [place] [address] Christian Mikayla Neutrophils (Bld) [#/Vol] 13.4 103/ul Critically high 1.4-6.5 [facility] Comment on above: Performed By: #### C BC #### [facility] [address] [place], [place] [address] Christian Mikayla Neutrophils/100 WBC (Bld) 84.0 % Critically high 43.0-75.0 [facility] Comment on above: Performed By: #### C BC #### [facility] [address] [place], [place] [phone] Christianvíctor Santanaen Platelet mean volume (Bld) [Entitic vol] 9.5 fL Normal 9.5-13.5 [facility] Comment on above: Performed By: #### C BC #### [facility] [address] [place], [place] [phone] Christianvíctor Degroot Platelets (Bld) [#/Vol] 207 103/ul Normal 150-450 [facility] Comment on above: Performed By: #### C BC #### [facility] [address] [place], [place] [address] Christian Mikayla RBC (Bld) [#/Vol] 3.49 106/ul Critically low 4.20-5.40 [facility] Comment on above: Performed By: #### C BC #### [facility] [address] [place], [place] [address] Christianvíctor Santanaen WBC (Bld) [#/Vol] 16.0 103/ul Critically high 4.0-11.0 [facility] Comment on above: Performed By: #### C BC #### [facility] [address] [place], [place] [address] Christian Degroot PROF CHEM 8 (BAS METB)on Anion gap [Moles/Vol] 11.2 mmol/L Normal [facility] Comment on above: Performed By: #### D RUGRPD #### [facility] [address] [place], [place] [address] Christian Degroot Calcium [Mass/Vol] 8.3 mg/dL Critically low 8.4-10.2 [facility] Comment on above: Performed By: #### D RUGRPD #### [facility] [address] [place], [place] [id number] Christian Mikayla Chloride [Moles/Vol] 106 mmol/L Normal 98-107 [facility] Comment on above: Performed By: #### D RUGRPD #### [facility] [address] [place], [place] [phone] Christian Mikayla CO2 [Moles/Vol] 24.5 mmol/L Normal 22.0-30.0 [facility] Comment on above: Performed By: #### D RUGRPD #### [facility] [address] [place] [id number] Christian Mikayla Creatinine [Mass/Vol] 0.53 mg/dL Normal 0.52-1.04 [facility] Comment on above: Performed By: #### D RUGRPD #### [facility] [address] [place] [id number] Christian Mikayla EGFR-AF HONG KONGER >60 Normal >=60 [facility] Comment on above: Performed By: #### D RUGRPD #### [facility] [address] [place], [place] [id number] Christian Mikayla EGFR-NON AF [place]ER >60 Normal >=60 [facility] Comment on above: Performed By: #### D JUNED #### [facility] [address] [address] Christian Mikayla Glucose [Mass/Vol] 113 mg/dL Critically high 74-106 T [facility] Comment on above: Performed By: #### D RUGRPD #### [facility] [address] [place], [place] [id number] Christian Mikayla Potassium [Moles/Vol] 3.7 mmol/L Normal 3.4-5.0 [facility] Comment on above: Performed By: #### D RUGLANDYD #### [facility] [address] [id number] Christian Mikayla Sodium [Moles/Vol] 138 mmol/L Normal 137-145 [facility] Comment on above: Performed By: #### D RUGRPD #### [facility] [address] [place], [place] [id number] Christian Mikayla Urea nitrogen [Mass/Vol] 12.0 mg/dL Normal 7.0-17.0 [facility] Comment on above: Performed By: #### D RUGRPD #### [facility] [address] [place], [place] [id number] Christian Mikayla Urea nitrogen/Creatinin e [Mass ratio] 22.6 mg/mg Normal [facility] Comment on above: Performed By: #### D RUGRPD #### [facility] [address] [place], [place] [id number] Christian Mikayla CBC W MANUAL DIFFon 03-06-20 20 ATYPICAL LYMPH # Normal [facility] Comment on above: Performed By: #### D RUGRPD #### [facility] [address] [place], [place] [id number] Christian Mikayla ATYPICAL LYMPH % Normal [facility] Comment on above: Performed By: #### D RUGRPD #### [facility] [address] [place] [address] Christian Mikayla BAND # Normal 0.0-0.3 [facility] Comment on above: Performed By: #### D RUGRPD #### [facility] [address] [place] [address] Christian Mikayla BAND % Normal 0-5 [facility] Comment on above: Performed By: #### D RUGRPD #### [facility] [address] [place] [address] Christian Mikayla BASOM # 0.00 103/ul Normal 0.00-0.10 [facility] Comment on above: Performed By: #### D RUGRPD #### [facility] [address] [place] [address] Christian Mikayla BASOM % 0.0 % Critically low 0.2-2.0 [facility] Comment on above: Performed By: #### D RUGRPD #### [facility] [address] [place] [address] Christian Mikayla BLAST # Normal [facility] Comment on above: Performed By: #### D RUGRPD #### [facility] [address] [place] [address] Christian Mikayla BLAST % Normal [facility] Comment on above: Performed By: #### D RUGRPD #### [facility] [address] [place] [address] Christian Mikayla CORRECTED WBC Normal 4.0-11.0 [facility] Comment on above: Performed By: #### D RUGRPD #### [facility] [address] [place], [place] [id number] Christian Mikayla Eosinophils (Bld) [#/Vol] 0.00 103/ul Normal 0.00-0.70 [facility] Comment on above: Performed By: #### D RUGRPD #### [facility] [address] [place], [place] [id number] Christian Mikayla Eosinophils/100 WBC (Bld) 0.0 % Critically low 0.9-7.0 [facility] Comment on above: Performed By: #### D RUGRPD #### [facility] [address] [place], [place] [id number] Christian Mikayla Erythrocyte distribution width (RBC) [Ratio] 13.2 % Normal 11.0-15.0 [facility] Comment on above: Performed By: #### D RUGRPD #### [facility] [address] [place], [place] [phone] Christian Mikayla Hematocrit (Bld) [Volume fraction] 44.1 % Normal 36.0-48.0 [facility] Comment on above: Performed By: #### D RUGRPD #### [facility] [address] [place], [place] [id number] Christian Mikayla Hemoglobin (Bld) [Mass/Vol] 13.9 g/dl Normal 12.0-16.0 [facility] Comment on above: Performed By: #### D RUGRPD #### [facility] [address] [place], [place] [id number] Christian Mikayla LYMPHM # 0.26 103/ul Critically low 1.20-3.80 [facility] Comment on above: Performed By: #### D RUGRPD #### [facility] [address] [place], [place] [id number] Christian Mikayla LYMPHM% 1.0 % Critically low 20.5-60.0 [facility] Comment on above: Performed By: #### D RUGRPD #### [facility] [address] [place], [place] [id number] Christian Mikayla MCH (RBC) [Entitic mass] 32.6 pg Normal 26.7-34.0 [facility] Comment on above: Performed By: #### D MARIAMARPD #### [facility] [address] [place] [address] Christian Degroot MCHC (RBC) [Mass/Vol] 31.5 g/dl Normal 29.9-35.2 [facility] Comment on above: Performed By: #### D RUGRPD #### [facility] [address] [place] [address] Christian Mikayla MCV (RBC) [Entitic vol] 103.3 fL Critically high 81.0-99.0 [facility] Comment on above: Performed By: #### D RUGRPD #### [facility] [address] [place] [address] Christian Mikayla METAMYELOCYTE # Normal [facility] Comment on above: Performed By: #### Dwayne LESLIERPD #### [facility] [address] [place] [address] Christian Mikayla METAMYELOCYTE % Normal [facility] Comment on above: Performed By: #### D RUGRPD #### [facility] [address] [place] [address] Christian Mikayla MONOM# 1.32 103/ul Critically high 0.30-0.80 [facility] Comment on above: Performed By: #### Dwayne RUGRPD #### [facility] [address] [place] [address] Christian Mikayla MONOM% 5.0 % Normal 1.7-12.0 [facility] Comment on above: Performed By: #### Dwayne RUGRPD #### [facility] [address] [place] [address] Christian Mikayla MYELOCYTE # Normal [facility] Comment on above: Performed By: #### D RUGRPD #### [facility] [address] [place] [address] Christian Mikayla MYELOCYTE % Normal [facility] Comment on above: Performed By: #### D RUGRPD #### [facility] [address] [place] [address] Christian Mikayla NRBC Normal [facility] Comment on above: Performed By: #### D RUGRPD #### [facility] [address] [place] [id number] Christianvíctor Degroot Platelet mean volume (Bld) [Entitic vol] 9.6 fL Normal 9.5-13.5 [facility] Comment on above: Performed By: #### D RUGRPD #### [facility] [address] [place], [place] [phone] Christian Mikayla Platelets (Bld) [#/Vol] 268 103/ul Normal 150-450 [facility] Comment on above: Performed By: #### D JUNED #### [facility] [address] [place], [place] [phone] Christian Mikayla RBC (Bld) [#/Vol] 4.27 106/ul Normal 4.20-5.40 [facility] Comment on above: Performed By: #### D RUGRPD #### [facility] [address] [place], [place] [phone] Christian Degroot SEG # 24.82 103/ul Critically high 1.40-6.50 [facility] Comment on above: Performed By: #### D JUNED #### [facility] [address] [place], [place] [address] Christian Mikayla Segmented neutrophils/100 WBC (Bld) 94.0 % Critically high 43.0-75.0 [facility] Comment on above: Performed By: #### D RUGLANDYD #### [facility] [address] [place], [place] [phone] Christian Mikayla WBC (Bld) [#/Vol] 26.4 103/ul Critically high 4.0-11.0 [facility] Comment on above: Performed By: #### D RUGLANDYD #### [facility] [address] [place], [place] [id number] Christian Degroot CPKon 03-06-2020 CK [Catalytic activity/Vol] 464 U/L Critically high 30-135 [facility] Comment on above: Result Comment: test repeated critical value verified Performed By: #### C K #### [facility] [address] [id number] [address] ABD/PELV W CONon 03-06-20 [...] by: MAT CASEY Date: 2020-03-06 18:45 Normal [facility] CT STROKE HEAD WOon 03-06-20 [...] MAT CASEY Date: 2020-03-06 16:31 Normal [facility] DRUG SCREEN RAPID (URINE)on 03-06-2020 AMP Positive Normal NEGATIVE [facility] Comment on above: Performed By: #### D RUGRPD #### [facility] [address] [place] [address] Christian Mikayla BAR Negative Normal NEGATIVE [facility] Comment on above: Performed By: #### D RUGRPD #### [facility] [address] [place] [address] Christian Mikayla BUP Negative Normal NEGATIVE [facility] Comment on above: Performed By: #### D RUGRPD #### [facility] [address] [place] [address] Christian Mikayla BZO Negative Normal NEGATIVE [facility] Comment on above: Performed By: #### D RUGRPD #### [facility] [address] [place] [address] Christian Mikayla RITCHIE Negative Normal NEGATIVE [facility] Comment on above: Performed By: #### D RUGRPD #### [facility] [address] [place] [address] Christian Mikayla CUT-OFFS SEE BELOW Normal [facility] Comment on above: Result Comment: AMP (Amphetamine): [...] ng/mL Performed By: #### D RUGRPD #### [facility] [address] [place] [address] Christian Mikayla DRUG CUT HEADER DRUG CLASS TEST SYST EM CUT-OFF CONCENTRATIONS ARE FOLLOWS: Normal [facility] Comment on above: Performed By: #### D RUGRPD #### [facility] [address] [place] [address] Christian Mikayla mAMP Negative Normal NEGATIVE [facility] Comment on above: Performed By: #### D RUGRPD #### [facility] [address] [place] [address] Christian Mikayla MTD Negative Normal NEGATIVE [facility] Comment on above: Performed By: #### D RUGRPD #### [facility] [address] [place] [address] Christian Mikayla OPI Positive Normal NEGATIVE [facility] Comment on above: Performed By: #### D RUGRPD #### [facility] [address] [place] [address] Christian Mikayla OXY Negative Normal NEGATIVE [facility] Comment on above: Performed By: #### D RUGRPD #### [facility] [address] [place] [address] Christian Mikayla PCP Negative Normal NEGATIVE [facility] Comment on above: Performed By: #### D RUGRPD #### [facility] [address] [place] [address] Christian Mikayla PPX Negative Normal NEGATIVE [facility] Comment on above: Performed By: #### D RUGRPD #### [facility] [address] [place] [address] Christian Mikayla TCA Negative Normal NEGATIVE [facility] Comment on above: Performed By: #### D RUGRPD #### [facility] [address] [place] [address] Christian Mikayla THC Negative Normal NEGATIVE [facility] Comment on above: Performed By: #### D RUGRPD #### [facility] [address] [place] [address] Christian Mikayla ER URINE PROFILEon 0 Bilirubin [Mass/Vol] Negative Normal NEGATIVE [facility] Comment on above: Performed By: #### E RUR #### [facility] [address] [place] [address] Christian Mikayla BLOOD Negative Normal NEGATIVE [facility] Comment on above: Performed By: #### E RUR #### [facility] [address] [place] [address] Christian Mikayla Clarity (U) CLEAR Normal [facility] Comment on above: Performed By: #### E RUR #### [facility] [address] [place] [address] Christian Mikayla Color (U) YELLOW Normal YELLOW [facility] Comment on above: Performed By: #### E RUR #### [facility] [address] [place] [address] Christian Mikayla ERUAHD A micrscopic examina tion will be performed if indicated. Normal [facility] Comment on above: Performed By: #### E RUR #### [facility] [address] [place] [address] Christian Mikayla Glucose [Mass/Vol] Negative Normal NEGATIVE [facility] Comment on above: Performed By: #### E RUR #### [facility] [address] [place] [address] Christian Mikayla Ketones Ql (U) Negative Normal NEGATIVE [facility] Comment on above: Performed By: #### E RUR #### [facility] [address] [place] [address] Christian Mikayla Nitrite Ql (U) Negative Normal NEGATIVE [facility] Comment on above: Performed By: #### E RUR #### [facility] [address] [place] [address] Christian Mikayla pH (Bld) 6.0 Normal 5-9 [facility] Comment on above: Performed By: #### E RUR #### [facility] [address] [place] [address] Christian Mikayla Protein (U) [Mass/Vol] TRACE Normal [facility] Comment on above: Performed By: #### E RUR #### [facility] [address] [place], [place] [address] Christian Mikayla SPEC GRAVITY >=1.030 Normal 1.005-<=1.02 5 [facility] Comment on above: Performed By: #### E RUR #### [facility] [address] [place], [place] [phone] Christian Mikayla UR MICRO IND NOT INDICATED Normal [facility] Comment on above: Performed By: #### E RUR #### [facility] [address] [place], [place] [phone] Christian Mikayla Urobilinogen Qn (U) 0.2 EU/dl Normal [facility] Comment on above: Performed By: #### E RUR #### [facility] [address] [place], [place] [phone] Christian Mikayla WBC (Bld) [#/Vol] Negative Normal NEGATIVE [facility] Comment on above: Performed By: #### E RUR #### [facility] [address] [place], [place] [phone] Christian Mikayla ETHANOL (BLD ALC)on 03-06-20 20 Ethanol [Mass/Vol] NOTE: 80 mg/dl is th e legal limit for a blood alcohol level Normal [facility] Comment on above: Performed By: #### E TH #### [facility] [address] [place], [place] [address] Christian Mikayla Ethanol [Mass/Vol] mg/dL Normal [facility] Comment on above: Performed By: #### E TH #### [facility] [address] [place], [place] [address] Christian Mikayla HEMOGRAM AND PLATELon 2019 WBC (Bld) [#/Vol] 23.5 103/ul Critically high 4.0-11.0 [facility] Comment on above: Performed By: #### H H #### [facility] [address] [place], [place] [address] Christian Mikayla LACTATE/LACTIC ACIDon 2019 Lactate [Moles/Vol] 0.7 mmol/L Normal 0.7-2.0 [facility] Comment on above: Performed By: #### L ACT #### [facility] [address] [place] [address] Christianvíctor Santanaen MYOGLOBINon 03-06-2020 Myoglobin [Mass/Vol] 918.0 ng/mL Critically high <=61.5 [facility] Comment on above: Result Comment: test repeated critical value verified Performed By: #### M YO #### [facility] [address] [place] [address] Christian Degroot POINT OF CARE GLUCOSEon 02-14 Glucose [Mass/Vol] 117 mg/dL Critically high 74-106 T [facility] Comment on above: Performed By: #### D RUGRPD #### [facility] [address] [place] [address] Christian Degroot PROF 14(COMP METB)on 020 Albumin [Mass/Vol] 3.3 g/dL Critically low 3.5-5.0 [facility] Comment on above: Performed By: #### T ROP, CMP #### [facility] [address] [place], [place] [address] Christian Degroot Albumin/Globulin [Mass ratio] 1.1 {ratio} Normal [facility] Comment on above: Performed By: #### T ROP, CMP #### [facility] [address] [place] [address] Christian Mikayla ALP [Catalytic activity/Vol] 69 U/L Normal 38-126 [facility] Comment on above: Performed By: #### T ROP, CMP #### [facility] [address] [place] [address] Christian Mikayla ALT [Catalytic activity/Vol] 30 U/L Normal 9-52 [facility] Comment on above: Performed By: #### T ROP, CMP #### [facility] [address] [place], [place] [address] Christian Mikayla Anion gap [Moles/Vol] 16.8 mmol/L Normal [facility] Comment on above: Performed By: #### T ROP, CMP #### [facility] [address] [address] Christian Mikayla AST [Catalytic activity/Vol] 29 U/L Normal 14-36 [facility] Comment on above: Performed By: #### T ROP, CMP #### [facility] [address] [place] [address] Christian Mikayla Bilirubin Ql (U) 0.4 mg/dL Normal 0.2-1.3 [facility] Comment on above: Performed By: #### T ROP, CMP #### [facility] [address] [place] [address] Christian Mikayla Calcium [Mass/Vol] 8.7 mg/dL Normal 8.4-10.2 [facility] Comment on above: Performed By: #### T ROP, CMP #### [facility] [address] [place] [address] Christian Mikayla Chloride [Moles/Vol] 104 mmol/L Normal 98-107 [facility] Comment on above: Performed By: #### T ROP, CMP #### [facility] [address] [place] [address] Christian Mikayla CO2 [Moles/Vol] 22.6 mmol/L Normal 22.0-30.0 [facility] Comment on above: Performed By: #### T ROP, CMP #### [facility] [address] [place] [address] Christian Mikayla Creatinine [Mass/Vol] 0.92 mg/dL Normal 0.52-1.04 [facility] Comment on above: Performed By: #### T ROP, CMP #### [facility] [address] [place] [address] Christian Mikayla EGFR-AF [place] >60 Normal >=60 [facility] Comment on above: Performed By: #### T ROP, CMP #### [facility] [address] [place] [address] Christian Mikayla EGFR-NON AF [place] >60 Normal >=60 [facility] Comment on above: Performed By: #### T ROP, CMP #### [facility] [address] [place] [address] Christian Mikayla Globulin (S) [Mass/Vol] 3.0 g/dL Normal [facility] Comment on above: Performed By: #### T ROP, CMP #### [facility] [address] [place], [place] [address] Christian Mikayla Glucose [Mass/Vol] 130 mg/dL Critically high 74-106 [facility] Comment on above: Performed By: #### T ROP, CMP #### [facility] [address] [place], [place] [address] Christian Mikayla Potassium [Moles/Vol] 4.4 mmol/L Normal 3.4-5.0 [facility] Comment on above: Performed By: #### T ROP, CMP #### [facility] [address] [place], [place] [address] Christian Mikayla Protein [Mass/Vol] 6.3 g/dL Normal 6.1-8.2 [facility] Comment on above: Performed By: #### T ROP, CMP #### [facility] [address] [place] [address] Christian Mikayla Sodium [Moles/Vol] 139 mmol/L Normal 137-145 [facility] Comment on above: Performed By: #### T ROP, CMP #### [facility] [address] [place], [place] [address] Christian Mikayla Urea nitrogen [Mass/Vol] 18.0 mg/dL Critically high 7.0-17.0 [facility] Comment on above: Performed By: #### T ROP, CMP #### [facility] [address] [place], [place] [address] Christian Mikayla Urea nitrogen/Creatinin e [Mass ratio] 19.6 mg/mg Normal [facility] Comment on above: Performed By: #### T ROP, CMP #### [facility] [address] [place], [place] [address] Christian Mikayla RESPIRATORY PANEL PLUSon Adenovirus NOT DETECTED Normal NOT DETECTED [facility] Comment on above: Performed By: #### D RUGRPD #### [facility] [address] [place], [place] [address] Christian Mikayla B. Parapertusis NOT DETECTED Normal NOT DETECTED [facility] Comment on above: Performed By: #### D RUGRPD #### [facility] [address] [place] [address] Christian Mikayla B. Pertussis NOT DETECTED Normal NOT DETECTED [facility] Comment on above: Performed By: #### D RUGRPD #### [facility] [address] [place] [address] Christian Mikayla Chlamydia Pneumoniae NOT DETECTED Normal NOT DETECTED [facility] Comment on above: Performed By: #### D RUGRPD #### [facility] [address] [place] [address] Christian Mikayla Coronavirus 229E NOT DETECTED Normal NOT DETECTED [facility] Comment on above: Performed By: #### D RUGRPD #### [facility] [address] [place] [address] Christian Mikayla Coronavirus HKU1 NOT DETECTED Normal NOT DETECTED [facility] Comment on above: Performed By: #### D RUGRPD #### [facility] [address] [place] [address] Christian Mikayla Coronavirus NL63 NOT DETECTED Normal NOT DETECTED [facility] Comment on above: Performed By: #### D RUGRPD #### [facility] [address] [place] [address] Christian Mikayla Coronavirus OC43 NOT DETECTED Normal NOT DETECTED [facility] Comment on above: Performed By: #### D RUGRPD #### [facility] [address] [place] [address] Christian Mikayla Influenza A H1 2009 NOT DETECTED Normal NOT DETECTED [facility] Comment on above: Performed By: #### D RUGRPD #### [facility] [address] [place] [address] Christian Mikayla Influenza B NOT DETECTED Normal NOT DETECTED [facility] Comment on above: Performed By: #### D RUGRPD #### [facility] [address] [place] [address] Christian Mikayla Metapneumovirus NOT DETECTED Normal NOT DETECTED [facility] Comment on above: Performed By: #### D RUGRPD #### [facility] [address] [address] Christian Mikayla Mycoplas. Pneumoniae NOT DETECTED Normal NOT DETECTED [facility] Comment on above: Performed By: #### D RUGRPD #### [facility] [address] [place] [address] Christian Mikayla Parainfluenza 1 NOT DETECTED Normal NOT DETECTED The [facility] Comment on above: Performed By: #### D RUGRPD #### [facility] [address] [place] [address] Christian Mikayla Parainfluenza 2 NOT DETECTED Normal NOT DETECTED [facility] Comment on above: Performed By: #### D RUGRPD #### [facility] [address] [place] [address] Christian Mikayla Parainfluenza 3 NOT DETECTED Normal NOT DETECTED [facility] Comment on above: Performed By: #### D RUGRPD #### [facility] [address] [place] [address] Christian Mikayla Parainfluenza 4 NOT DETECTED Normal NOT DETECTED [facility] Comment on above: Performed By: #### D RUGRPD #### [facility] [address] [place] [address] Christian Mikayla Rhino/Enterovirus NOT DETECTED Normal NOT DETECTED [facility] Comment on above: Performed By: #### D RUGRPD #### [facility] [address] [place] [address] Christian Mikayla RP2 Header 1 RESPIRATORY PANEL: VIRUSES Normal [facility] Comment on above: Performed By: #### D RUGRPD #### [facility] [address] [place] [address] Christian Mikayla RP2 Header 2 RESPIRATORY PANEL: BACTERIA Normal [facility] Comment on above: Performed By: #### D RUGRPD #### [facility] [address] [place] [address] Christian Mikayla RP2 Header 4 EUA SEE BELOW Normal The [facility] Comment on above: Result Comment: This test is not yet approved or cleared by the [place] FDA. When there are no FDA-approved or cleared tests available, and other criteria are met, FDA can make tests available under an emergency access mechanism called an Emergency Use Authorization (EUA). The EUA for this test is supported by the [place] of Health and Human Service?s (HHS?s) declaration [...] longer be used). Performed By: #### D JUNED #### [facility] [address] [place] [address] Mikayla RSV NOT DETECTED Normal NOT DETECTED [facility] Comment on above: Performed By: #### D JUNED #### [facility] [address] [place] [address] Christian Mikayla SARS-CoV-2: COVID-19 NOT DETECTED Normal NOT DETECTED [facility] Comment on above: Performed By: #### D RUGRPD #### [facility] [address] [place] [address] TROPONIN - Ion 03-06-2020 Troponin I.cardiac [Mass/Vol] 0.016 ng/mL Normal <=0.034 [facility] Comment on above: Performed By: #### Bill CISNEROS CMP #### [facility] [address] [place] [address] Troponin I.cardiac [Mass/Vol] SEE BELOW Normal [facility] Comment on above: Result Comment: <0.0 34 ng/ml NEGATIVE 0.034-0.119 INDETERMINATE 0.120 AMI CUT OFF Performed By: #### T BLAYNE CMP #### [facility] [address] [place] [address] Christian Mikayla XR CHEST 1 Von 03-06-2020 XR CHEST [...] FELA SMITH Date: 2020-03-06 15:07 Normal The [facility] CT 3D CERVICAL SPINE WITH CO NTRASTon 04-27-2018 CT 3D CERVICAL SPINE [facility] [address]gcmdsjzu[address] [place] [address] Patient Name: RADHA DUNCAN : 1970Sex: FAge: Race: WhiteMRN: [id number]. Location: 85Patient Status: OVisit #: [id number] Date: 04/10/2018 12:10:00 PMCompleted Date: 04/27/2018 10:58 AMRequesting Provider: MARY DIAL Attending Provider: MARY DIAL Report Copy To: TEJAS RICHARDSON Signs & Symptoms: M54.12 Radiculopathy, cervical region S90Wijrepi: Nyla MYELOGRAM AUTH [id number] VALID 04/11/18-07/12/18 PER [place] K[place]ER [facility] [address] JYComments: Exam: CT 3D CERVICAL SPINE WITH CONTRASTAccession #: [id number] CT 3D CERVICAL SPINE WITH CONTRAST 04/27/2018 [...] findings. Electronically signed by:Oli Sanders. Transcribed by: [email or web address], User Resident: MANDEEP YOUNGElectronically Signed by: OLI SANDERS @ 04/27/2018 01:02 PMI personally read this/these film(s) with this resident Normal [facility] CT 3D LUMBAR SPINE W CONTRAS Ton 04-27-2018 CT 3D LUMBAR SPINE W CONTRAST [facility] [address]nexitoqo[address] [place] [address] Patient Name: RADHA DUNCAN : 1970Sex: FAge: Race: WhiteMRN: [id number]. Location: 85Patient Status: DVisit #: [id number] Date: 04/10/2018 12:10:00 PMCompleted Date: 04/27/2018 10:59 AMRequesting Provider: MARY DIAL Attending Provider: MARY DIAL Report Copy To: TEJAS RICHARDSON Signs & Symptoms: M54.16 Radiculopathy, lumbar region F26Ezavvdh: [place] MYELOGRAM AUTH [id number] VALID 04/11/18-07/12/18 PER Justyle [address] JYComments: Exam: CT 3D LUMBAR SPINE W CONTRASTAccession #: [id number] CT 3D LUMBAR SPINE W CONTRAST 04/27/2018 [...] Young on 04/27/2018 2:51 PM EST. I, Antony Skelton, have reviewed the images and report and concur with these findings. Electronically signed by:Antony Skelton. Transcribed by: [email or web address], User Resident: MANDEEP YOUNGElectronically Signed by: ANTONY SKELTON @ 04/27/2018 05:36 PMI personally read this/these film(s) with this resident Normal [facility] ENTIRE MYELOGRAMon 8 ENTIRE MYELOGRAM [facility] [address] [place] [address] Patient Name: RADHA DUNCAN : 1970Sex: FAge: Race: WhiteMRN: [id number]. Location: 85Patient Status: OVisit #: [id number] Date: 04/10/2018 12:10:00 PMCompleted Date: 04/27/2018 10:19 AMRequesting Provider: MARY DIAL Attending Provider: MARY DIAL Report Copy To: TEJAS RICHARDSON Signs & Symptoms: M54.16 Radiculopathy, lumbar region I51Hjkoeze: [place] CT MYELOGRAMComments: , , , Ordering Provider - MARY DIAL MD , Exam: ENTIRE MYELOGRAMAccession #: [id number] ENTIRE MYELOGRAM 04/27/2018 10:19 AM EST SIGNS [...] and risks are acceptable. Consent was obtained. Timeout:Ferdinand protocol timeout verification performed. PROCEDURE:Estimated blood loss:None [...] findings. Electronically signed by:Oli Sanders. Transcribed by: [email or web address], User Resident: MANDEEP ROSTElectronically Signed by: OLI SANDERS @ 04/27/2018 01:01 PMI personally read this/these film(s) with this resident Normal [facility] Comment on above: Order Comment: , , = ========= , Ordering Provider - MARY DIAL MD , CNPFlaca 02-20-2018 CNPYamilex Telephone (PAIN[facility]) -------RADHA DUNCAN ([id number]) 1970 FDa Time Provider Opabbvbwfh71/8/18 MAGED MURDOCK During your visit today, we recorded the following information about you:[facility] Patient Service Spec 02/20/2018 8:05 AM [...] from his care.Please call her back at [phone].Elysia Montoya Psr 02/22/2018 8:37 AM SignedPlease fax letter over to [phone].Clint Park SET UP AND LAY OUT INSPECTOR 02/27/2018 10:18 AM SignedSpoke with patient and she wanted to know if knew of a physician inthe area that she lived that could do the ketamine infusion.I explained most likely he would not have this information she would need tocheck around in her area with other pain providers to see if they do theinfusions. She said she found one in the [place] area but they want money upfront and [...] for the patient, including a name of admiroslava in her areaI handed it to her on the day of the last visit personallyJimi Joyner As of Date: 02/20/2018(No Known Allergies)Date Reviewed: 02/10/2018Reviewed by: Kayla Sparks SET UP AND LAY OUT INSPECTOR - Fully AssessedReason for Visit: Letter [264]Prescriptions [...] Status:Closed by MAGED MURDOCK MD on 02/28/18 [facility] CNOVon 02-10-2018 CNOV Office Visit ([facility]) -------RADHA DUNCAN ([id number]) 1970 FDate Time Provider Department02/10/18 10:45 AM MAGED MURDOCK During your visit today, we recorded the following information about you: Pulse Respiration Blood pressure Weight 80/minute 16/minute 132/47 69.9 kgMaged Murdock MD 02/11/2018 1:30 PM AddendumSUBJECTIVE:The patient presents to [facility] Pain Management Department for afollow-up appointment [...] other than HPI.Data scribed by above mentioned MA/SET UP AND LAY OUT INSPECTOR/RN/PA, and personally reviewed andverified by physician. Maged [...] resulting treatment plan. Patient agreeswith above. Maged Murdock [facility]2017Referring Provider: LINDSEY AGUILAR [[id number]]Allergies As of Date: 02/10/2018(No Known Allergies)Date Reviewed: [...] FOR* 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] INVALID FOR*Letter TextSept2017Maged MurdockCoshocton Regional Medical CenterDepartment of Pain [address], [place] [phone] [phone] Suzanne M Bailey:Thank you for seeing me [...] any questions. Sincerely, Maged Murdock MDEncounter Number: [id number] Status:Closed by MAGED MURDOCK MD on 02/11/18 Normal [facility] PROGRESSon 02-10-2018 Protein mass conc HNO ID: [id number] thor: Maged Jolleyervice: (none)Author Type: PhysicianType: Progress NotesFiled: 02/11/2018 1:30 PMNote Text:SUBJECTIVE:The patient presents to [facility] Pain Management Departmentfor a follow-up appointment [...] medication: [facility] morningRelevant OARRS records were reviewed.Imaging results in [...] other than HPI.Data scribed by above mentioned MA/SET UP AND LAY OUT INSPECTOR/RN/PA, and personally reviewed andverified by physician. Maged [...] with above. Maged Murdock, MDSeptember 2017 Normal [facility] CNOVon 01-10-2018 CNOV Office Visit ([facility]) -------RADHA DUNCAN ([id number]) 1970 FDate Time Provider Department01/10/18 1:00 PM MONICA YAN ([facility]) [facility] During your visit today, we recorded the following information about you: Pulse Blood pressure Weight 85/minute 127/47 70.3 kgMonica Yan APRN.CNP 01/10/2018 2:13 PM SignedSUBJECTIVE:The patient presents to [facility] Pain Management Department for afollow-up appointment [...] and C4-C5 secondaryto DDDAnterior mechanical fusion of W9-0-4VLKXEP OF SYSTEMS:GENERAL: (-) weight loss, (+)malaise, (-)fevers.HEENT:(+)headache [...] other than HPI.Data scribed by above mentioned MA/SET UP AND LAY OUT INSPECTOR/RN/PA, and personally reviewed andverified by Monica Yan APRN.CNPOBJECTIVE:PHYSICAL EXAMINATION:VS: BP (!) 127/47 Pulse [...] significance and resulting treatment plan. Patient agreeswith above.Monica Yan APRN.CNPAuunm cancer centert 2017Referring Provider: TEJAS RICHARDSON JR [[id number]]Allergies As of Date: 01/10/2018(No Known Allergies)Date Reviewed: [...] INVALID FOR*Follow-up and Disposition History RecordedEncounter Number: [id number] Status:Closed by MONICA YAN CNP on 01/10/18 Normal [facility] PROGRESSon 01-09-2018 Protein mass conc HNO ID: [id number] thor: Monica Pereyra (Web Development Instructor) HillService: (none)Author Type: Nurse PractitionerType: Progress NotesFiled: 01/10/2018 2:13 PMNote Text:SUBJECTIVE:The patient presents to [facility] Pain Management Departmentfor a follow-up appointment [...] to moderate foraminal narrowing at C3-C4, and C4-Q4xgogkpnqm to DDDAnterior mechanical fusion of L4-5-7WSWOQX OF SYSTEMS:GENERAL: (-) weight loss, (+)malaise, (-)fevers.HEENT:(+)headache [...] other than HPI.Data scribed by above mentioned MA/SET UP AND LAY OUT INSPECTOR/RN/PA, and personally reviewed andverified by Monica Yan APRN.CNPOBJECTIVE:PHYSICAL EXAMINATION:VS: BP (!) 127/47 Pulse [...] significance and resulting treatment plan. Patientagrees with above.Monica Yan APRN.Lali 2017 Normal [facility] Ta 12-21-2017 SONIA Telephone ([facility]) -------FELIPA DUNCANANNRojelio Reyez ([id number]) 1970 FDate Time Provider Department12/21/17 MAGED MURDOCK During your visit today, we recorded the following information about you:Lorena Araiza 12/21/2017 10:31 AM AddendumPatient calling in to inquire if you have received MRI films from [facility].Please advisJacob Park LPN 12/22/2017 3:15 PM SignedSpoke with patient and informed her that we did receive the thoracic MRI whichwas normal.We did not receive the cervical MRI. She will call [facility] and have them refaxit.Kami Zheng Workleader 12/26/2017 9:53 AM SignedPatient called back in regards to below message. Patient would like to know ifwe have received the Cervical MRI as it was refaxed 12/22. Pleasereview.Clint Park LPN 12/26/2017 11:01 AM SignedSpoke to [facility] and they are refaxing it as I only received cover.Clint Park LPN 12/26/2017 11:[address]I will have Dr. Murdock review on when he is in office.Clint Prak LPN 12/29/2017 4:31 PM SignedSpoke with patient and moved her appt with Monica Yan as said sheneeded office visit.Allergies As of Date: 12/21/2017(No Known Allergies)Date Reviewed: 12/08/2017Reviewed by: Kayla Sparks LPN - Fully AssessedReason for Visit: Question [7827]Prescriptions as of 12/21/2017 Sig: OXCARBAZEPINE 150 MG [...] Status:Closed by CLINT PARK LPN on 12/22/17 [facility] CNOVon 12-08-2017 CNOV Office Visit ([facility]) -------RADHA DUNCAN ([id number]) 1970 FDate Time Provider Department12/08/17 1:30 PM MAGED MURDOCK During your visit today, we recorded the following information about you: Pulse Respiration Blood pressure Weight 62/minute 16/minute 105/40 68.9 kgMaged Murdock MD 12/08/2017 6:06 PM SignedReferring Or Consulting Physician:Lindsey Aguilar, PA[address] [facility] [place] [place] [id number] COMPLAINT: pain in my neck, shoulders, thoracic [...] Number of children: 0Occupational HistoryOccupation 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 Maged Collette, MDOBJECTIVE:VS: BP (!) 105/40 Pulse 62 Resp [...] also during rena-operative period. we dont have woyn-dqawbjy-kegfrdxw for disability, likely to hamper rapid recovery [...] she did have severe postprocedure pain in [place] [facility] handsDirect patient care time spent: [...] mail.Maged Murdock MDJuly 2017Referring Provider: LINDSEY AGUILAR [[id number]]Allergies As of Date: 12/08/2017(No Known Allergies)Date Reviewed: [...] region [M48.02]Order(s):C-REACTIVE PROTEIN (CRP) [SQCRP] Order #: [id number] FUTURE SED RATE WESTERGREN [SQWSR] Order #: [id number] FUTURE TSH BLD [SQTSH] Order #: [id number] FUTURE IRON + TIBC [SQIRON] Order #: [id number] FUTURE VITAMIN D 25 HYDROXY [SQVITD] Order #: [id number] FUTURE MRI THORACIC SPINE WO/W IVCON [[id number]] Order #: [id number] FUTURE iv contrast (will be provided with [...] EachRfl: 0 MRI CERVICAL SPINE WO IVCON [[id number]] Order #: [id number] FUTUREPrescriptions as of 12/08/2017 Sig: OXCARBAZEPINE 150 [...] discontinue is not on file.Letter TextJuly 2017Maged GómezMercy Health Defiance HospitalDepartment of Pain [address]bw[address] [place], [place] [phone] [phone] Suzanne M Bailey:Thank you for seeing me [...] medications for the issues above, [facility]. Afterthat, further testing could be done to get to the bottom of your problems.Please call with any questions. Sincerely, Maged Murdock MDEncounter Number: [id number] Status:Closed by MAGED MURDOCK MD on 12/08/17 Normal [facility] PROGRESSon 12-08-2017 Protein mass conc HNO ID: [id number] thor: Maged Jolleyervice: (none)Author Type: PhysicianType: Progress NotesFiled: 12/08/2017 6:06 PMNote Text:Referring Or Consulting Physician:JACKY Vargas[address] [facility] [address] [place] [id number] COMPLAINT: pain in my neck, shoulders, thoracic [...] yesCracking by a chiropractor: no?Imaging Studies:MRi cervical /4/16Segmentation anomaly C2-3C3 to C6 disc-osteophyte complexfacet arthropathyT5 [...] Number of children: 0Occupational HistoryOccupation 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 Maged [...] she did have severepost procedure pain in [place] [facility] handsDirect patient care time spent: [...] fax, or mail.Aishwarya Joyner 2017 Normal [facility] Encounters Encounter Date Encounter Type Care Provider Facility Start: 11-10-2023 End: 11-10-2023 ambulatory Hanane Latham APRN-PROFESSOR OF PHYSICS Facility:[facility] Start: 10-26-2023 End: 10-26-2023 ambulatory Pavel Rodriges MD Facility:[facility] Start: 10-26-2023 End: 10-26-2023 ambulatory Tejas Richardson DO Facility:[facility] Start: 08-22-2023 End: 08-23-2023 ambulatory TEJAS Roddy DYLAN [facility] Start: 08-15-2023 End: 09-14-2023 ambulatory [facility] Start: 07-18-2023 End: 08-15-2023 ambulatory [facility] Start: 03-06-2020 End: 03-07-2020 Patient encounter procedure PEREZ LESTER Facility:[facility] Start: 04-27-2018 End: 04-28-2018 Patient encounter procedure PROVIDER UNKNOWN Facility:[facility] Start: 02-10-2018 End: 02-13-2018 Patient encounter MAGED MURDOCK [facility] Start: 01-10-2018 End: 01-11-2018 Patient encounter MONICA YAN [facility] Start: 12-08-2017 End: 12-09-2017 Patient encounter MAGED TELLEZAHAM [facility] Procedures Date Procedure Procedure Detail Performing Clinician Start: 03-06-2020 End: 03-06-2020 Microscopic examination of blood, culture PEREZ TREVON Comment on above: Performed By: #### D RUGRPD #### [facility] [address] [place] [address] Christian Santanaen Payers Date Payer Category Payer Unknown 2022 Unknown [id number] 1970 Unknown [id number] 2.16.8 [id number] 1970 Unknown [id number] 2.16.84 [id number] 1970 Unknown [id number] 2.16.8 [id number] 1970 Unknown [id number] 2.16.8 [id number] 1970 Unknown [id number] 2.16.8 [id number] 1970 Unknown [id number] 2.16. [id number] 1970 Unknown [id number] 2.16. [id number] 1970 Unknown [id number] 2.16. [id number] 1960 Unknown [id number] Unknown [id number] Summary Purpose Family History No Family History Records FoundNo Family History Records FoundNo Family History Records FoundNo Family History Records FoundNo Family History Records Found Advance Directives No Advanced Directives Records FoundNo Advanced Directives Records FoundNo Advanced Directives Records FoundNo Advanced Directives Records FoundNo Advanced Directives Records Found Additional Source Comments INFORMATION SOURCE (unrecogn ized section and content) DATE CREATED AUTHOR 04/03/2018 [facility] DATE CREATED AUTHOR AUTHOR'S ORGANIZ ATION 05/03/2018 [facility] DATE CREATED AUTHOR AUTHOR'S ORGANIZ ATION 04/09/2020 [facility] DATE CREATED AUTHOR AUTHOR'S ORGANIZ ATION 09/15/2023 [facility] DATE CREATED AUTHOR AUTHOR'S ORGANIZ ATION 11/17/2023 [facility] FOR RECORDS PERTAINING TO PATIENTS WHO [...] BE BASED ON THE PRIMARY CLINICAL RECORDS. [employer] provides no warranty or guarantee of the accuracy or completeness of information in this document.
== END 2023-11-21 09:43 | disposition home or self-care (01) ==
LOC: EC 09:42
PROVIDERS: PCP Internal Medicine; Visit Provider Orthopaedic Surgery
DX: M53.2X6 Spinal instabilities, lumbar region (principal)
CPT/HCPCS: 72110

== ENCOUNTER 2023-11-28 09:23 | Outpatient (OUT) | payer OTHER, SELFPAY ==
--- NOTE | 2023-11-28 09:35 | MR_ITS ---
[address] [address] Patient Name: RAHEEM DUNCAN MRN: [facility]:[id number] date: 1970 Sex: F Assigned Patient Location: MRI Current Patient Location: MRI Accession/Order Number: [id number] Exam Date: 11/28/2023 09:45 Report Date: 11/28/2023 11:45 At the request of: RADHA GARLAND Procedure: MR lumbar spine wo con EXAMINATION: MR lumbar spine wo con HISTORY: Degenerative Disc Disease M51.36 COMPARISON: No relevant comparison available. TECHNIQUE: A variety of imaging planes and parameters were utilized for visualization of suspected pathology. FINDINGS: For the purposes of numbering, sagittal T2 image # 8 extends from the T11 vertebral body superiorly to the S4 level inferiorly. PARASPINAL AREA: Normal with no visible mass. BONES: Posterior decompression and bilateral transpedicular fusion L3-L4 with metallic susceptibility artifact. Postsurgical changes in the subcutaneous fat CORD/CAUDA EQUINA: Normal caliber, contour, and signal intensity. DISC LEVELS: 12-L1: Moderate disc space narrowing and desiccation. No disc bulge or herniation. No central or foraminal stenosis L1-L2: Early degenerative disc disease is present without focal protrusion or neural impingement. L2-L3: Early degenerative disc disease is present without focal protrusion or neural impingement. L3-L4: Bilateral transpedicular fusion L3 and L4. Moderate disc space narrowing and disc desiccation. No disc bulge or herniation. No central or foraminal stenosis L4-L5: Mild posterior disc bulge. Moderate ligamentum flavum atrophy and facet osteoarthropathy. No central canal or foraminal stenosis L5-S1: Disc desiccation. Mild posterior disc bulge. No central or foraminal stenosis MR/MR lumbar spine wo con IMPRESSION: Posterior decompression and transpedicular fusion L3-L4 Mild degenerative changes with no significant central or foraminal stenosis Electronically authenticated by: EDSON ARCHIBALD Date: 11/28/2023 11:45
== END 2023-11-28 09:24 | disposition home or self-care (01) ==
LOC: MRI 09:23
PROVIDERS: PCP Internal Medicine; Visit Provider Orthopaedic Surgery Orthopaedic Surgery of the Spine
DX: M51.36 Other intervertebral disc degeneration, lumbar region (principal)
CPT/HCPCS: 72148

== ENCOUNTER 2024-02-17 09:49 | Outpatient (OUT) | payer OTHER, SELFPAY ==
--- NOTE | 2024-02-17 | XR_ITS ---
[address] [address] Patient Name: RAHEEM DUNCAN MRN: [id number] date: 1970 Sex: F Assigned Patient Location: Current Patient Location: Accession/Order Number: [id number] Exam Date: 02/17/2024 09:49 Report Date: 02/19/2024 06:52 At the request of: RADHA GARLAND Procedure: XR lumbar spine 2-3V EXAMINATION: XR lumbar spine 2-3V HISTORY: LUMBAR SPINE PAIN COMPARISON: XR lumbar spine 11/21/2023 FINDINGS: BONES: Posterior mechanical fusion L3-L4 via bilateral pedicle screws and rods; no appreciable hardware fracture loosening. Normal height and alignment of the vertebral bodies; no fracture, spinal listhesis, or change in alignment during flexion and extension. DISC SPACES: Moderate narrowing T11 and T12, T12-L1. Mild narrowing L3-L4. Suspect moderate narrowing L5-S1. PARASPINOUS: Negative. No paraspinous abnormality is seen. OTHER: Negative. XR/XR lumbar spine 2-3V IMPRESSION: 1. Stable surgical changes without evidence of hardware failure or change in alignment. 2. Stable multilevel mild to moderate degenerative changes. Electronically authenticated by: MAGDALENA WILL Date: 02/19/2024 06:52
--- OUTSIDE RECORDS SUMMARY | 2024-02-17 10:06 | XMS_ITS | CCD ---
Author Organization [facility] Care Team Providers Care Urgent Care Physician Assistant Name Role Phone MAGED MURDOCK Unavailable Unavailable LINDSEY AGUILAR (PA) Unavailable Unavail able MONICA YAN (INTERNET MARKETING STRATEGIST) Unavailable UnavailTEJAS Phillips JR Unavailable Unavail able [...] [employer] Consulting Unavailable SHAIKH SALES Consulting Unavailable Zahira CHONG, Pavel Carr Attending Unavailable Tejas Richardson DO Primary Care Unavail able Tejas Richardson DO Primary Care Unavail able Nicole Collado MD Referring Unavailmagalis Rodriges MD, Pavel Carr Attending Unavailable Hanane Jolly Attending U nessailTejas Kothari DO Primary Care Unavail able NICOLE COLLADO Referring Unavailable ALYSSAONE JR TEJAS Roddy Primary Care Unavailable NICOLE COLLADO Referring Unavailable VALONE , TEJAS L Primary Care Unavailable VALONE JR TEJAS L Referring Unavailable VALONE JR, TEJAS L Primary Care Unavailable VALONE JR, TEJAS L Referring Unavailable VALONE JR, TEJAS L Primary Care Unavailable VALONE JR, TEJAS L Referring Unavailable VALONE JR, TEJAS L Primary Care Unavailable Allergies Allergy Classification Reported Allergen(s) Allergy Type Date of Onset Reaction(s) Facility (1 source) Morphine; Translations: [MORPHINE] Drug Allergy 10-18-2022 [facility] Repository Problems Active Problems Problem Classification Problem Date Documented Date [...] Spondylosis; intervertebral disc disorders; other back problems (6 sources) Radiculopathy, cervical region; Translations: [Radiculopathy, lumbar region] Onset: 04-27-2018 Episodic Substance-related disorders (1 source) Nicotine dependence, cigarettes, uncomplicated; Translations: [NICOTINE DEPEND CIGARETTES UNCOMP] Onset: 03-18-2020 Chronic Unclassified (3 sources) Unknown / UNK(Unknown) Onset: 12-08-2017 Past or Other Problems Problem Classification Problem Date Documented Da te Episodic/Chronic Fluid and electrolyte disorders (1 source) Hypokalemia; Translations: [Hypokalemia] Onset: 08-22-2023 Episodic Results Test Name Value Interpretation Reference Range Facility Infectious Disease Office/ galileo Noteon 11-10-2023 Infectious Disease Office/Clinic Note Assessment/Plan 1. Postoperative wound infection Plan: Unfortunately there is no other good oral options for coverage of Pseudomonas. She is advised to stop taking doxycycline as this will help her symptoms. I did call Dr. Montes his PA Hammad called back. She advised me to send patient back to [facility]. This is where she had her surgery done. She may need to MRI possible washout. This sports book writer did call [facility] talk to charge nurse Dagmar gave her [...] and fusion by Dr. Saint Gregory at [facility]. She was discharged home on the . She was discharged on cephalexin for 10 days. She was taken back to surgery on October 11 due to persistent drainage and wound dehiscence. She had a fluid collection which was most consistent with seroma/infection . The surgery was done in [place]. Cultures grew Pseudomonas and she was discharged [...] data Procedure/Surgical History Neck Surgery Stomach Pain [place] Surgery (09/02/2023) incision & drainage (10/12/2023) Medications cyclobenzaprine 10 mg oral tablet, 45 EA, 0 Refill(s), TAKE 1 TABLET BY MOUTH THREE TIMES DAILY NEEDED FOR MUSCLE SPASMS DULoxetine 60 mg oral delayed release capsule, 90 EA, 0 Refill(s), TAKE 1 CAPSULE BY MOUTH EVERY DAY ibuprofen 800 mg oral tablet, 270 EA, 0 Refill(s) Potassium Chloride ( (more content not included)... Normal [facility] .eGFRon 10-26-2023 GFR/1.73 sq M.predicted MDRD (S/P/Bld) [Vol rate/Area] mL/min/{1.73_m2} Normal >=60 [facility] Comment on above: Order Comment: Order added by Discern rule Result Comment: [facility] have implemented the eGFR calculation [...] years Performed By: #### E GFR #### [address] [address] Basic Metabolic Profileon Anion gap [Moles/Vol] 10 mmol/L Normal 08-25 [facility] Comment on above: Performed By: #### C [id number] #### [address] [address] Calcium [Mass/Vol] 9.4 mg/dL Normal 8.5-10.3 [facility] Comment on above: Performed By: #### C [id number] #### [address] [address] Chloride [Moles/Vol] 101 mmol/L Normal 98-110 [facility] Comment on above: Performed By: #### C [id number] #### [address] [address] CO2 [Moles/Vol] 26 mmol/L Normal 22-32 [facility] Comment on above: Performed By: #### C [id number] #### [address] [address] Creatinine [Mass/Vol] 0.81 mg/dL Normal 0.44-1.03 [facility] Comment on above: Performed By: #### C [id number] #### [address] [address] Glucose [Mass/Vol] 82 mg/dL Normal 70-99 [facility] Comment on above: Performed By: #### C [id number] #### [address] [address] Potassium [Moles/Vol] 2.7 mmol/L Low 3.4-4.8 [facility] Comment on above: Performed By: #### C [id number] #### [address] [address] Sodium [Moles/Vol] 137 mmol/L Normal 133-142 [facility] Comment on above: Performed By: #### C [id number] #### [address] [address] Urea nitrogen [Mass/Vol] 15 mg/dL Normal 8-26 [facility] Comment on above: Performed By: #### C [id number] #### [address] [address] Urea nitrogen/Creatinin e [Mass ratio] 18.5 mg/mg Normal 10.0-20.0 [facility] Comment on above: Performed By: #### C [id number] #### [address] [address] CBC w/ Diffon 10-26-2023 Erythrocyte distribution width (RBC) [Ratio] 15.2 % High 11.6-14.8 [facility] Comment on above: Performed By: #### C BC #### [address] [address] Hematocrit (Bld) [Volume fraction] 38.9 % Normal 36.0-46.0 [facility] Comment on above: Performed By: #### C BC #### [address] [address] Hemoglobin (Bld) [Mass/Vol] 12.9 g/dL Normal 12.0-16.0 [facility] Comment on above: Performed By: #### C BC #### [address] [address] MCH (RBC) [Entitic mass] 31.5 pg Normal 27.0-35.0 [facility] Comment on above: Performed By: #### C BC #### [address] [address] MCHC 33.1 % Normal 31.0-37.0 [facility] Comment on above: Performed By: #### C BC #### [address] [address] MCV (RBC) [Entitic vol] 95.0 fL Normal 80.0-100.0 [facility] Comment on above: Performed By: #### C BC #### [address] [address] Platelet 367 x10*3/mcL Normal 150-450 [facility] Comment on above: Performed By: #### C BC #### [address] [address] Platelet mean volume (Bld) [Entitic vol] 7.7 fL Normal 6.7-10.6 [facility] Comment on above: Performed By: #### C BC #### [address] [address] RBC 4.10 x10*6/mcL Normal 3.80-5.20 [facility] Comment on above: Performed By: #### C BC #### [address] [address] WBC 12.3 x10*3/mcL High 4.5-11.0 [facility] Comment on above: Performed By: #### C BC #### [address] [address] CRPon 10-26-2023 CRP 2.71 mg/dL High 0.00-0.75 [facility] Comment on above: Result Comment: CRP measurement is useful for assessment of non-specific INFLAMMATORY RESPONSE to infection or injury AND is a sensitive MARKER of ACUTE INFLAMMATION including CARDIAC RISK ASSESSMENT. CARDIAC patients with elevated CRP are POTENTIALLY at a HIGHER RISK OF FUTURE CARDIAC EVENTS. Performed By: #### C RP #### [address] [address] Diff Autoon 10-26-2023 Baso Absolute 0.1 x10*3/mcL Normal 0.0-0.2 [facility] Comment on above: Performed By: #### . Automated Diff #### [address] [address] Basophils/100 WBC (Bld) 0.5 % Normal 0.0-1.5 [facility] Comment on above: Performed By: #### . Automated Diff #### [address] [address] Eos Absolute 0.3 x10*3/mcL Normal 0.0-0.4 [facility] Comment on above: Performed By: #### . Automated Diff #### [address] [address] Eosinophils/100 WBC (Bld) 2.1 % Normal 0.0-5.4 [facility] Comment on above: Performed By: #### . Automated Diff #### [address] [address] Lymph Absolute 2.2 x10*3/mcL Normal 1.0-4.8 [facility] Comment on above: Performed By: #### . Automated Diff #### [place] [id number] Lymphocytes/100 WBC (Bld) 18.0 % Low 27.2-40.8 [facility] Comment on above: Performed By: #### . Automated Diff #### [place] [id number] [place] Absolute 0.6 x10*3/mcL Normal 0.1-1.1 [facility] Comment on above: Performed By: #### . Automated Diff #### [address] [address] Monocytes/100 WBC (Bld) 4.9 % Normal 3.7-11.9 [facility] Comment on above: Performed By: #### . Automated Diff #### [place] [id number] Neutro Absolute 9.2 x10*3/mcL High 1.8-7.7 [facility] Comment on above: Performed By: #### . Automated Diff #### [place] [address] Neutro Auto 74.5 % High 47.2-70.8 [facility] Comment on above: Performed By: #### . Automated Diff #### [address] [address] ESRon 10-26-2023 Sed Rate 67 mm/hr High 0-30 [facility] Comment on above: Performed By: #### E SR #### [place] [id number] Infectious Disease Office/Cl in Noteon 10-26-2023 Infectious Disease Office/Clinic Note [...] tabs, 0 Refill(s), 11/09/23 10:12:00 EDT, Pharmacy: [facility] #[id number] Basic Metabolic Profile C-Reactive Protein Complete Blood Count w/ Differential Erythrocyte Sedimentation Rate 2. Pseudomonas infection As above Ordered: levoFLOXacin, 1 tabs, Oral, q24hr, X 14 days, # 14 tabs, 0 Refill(s), 11/09/23 10:12:00 EDT, Pharmacy: [facility] #[id number] Basic Metabolic Profile C-Reactive Protein Complete Blood Count w/ Differential Erythrocyte Sedimentation Rate Chief Complaint New pt I&D done at [facility], possible infection of back. History of Present Illness Seen today for persistent drainage after back surgery on September 01. She had L3-L4 decompression and fusion by Dr. Saint Gregory at [facility]. She was discharged home on the . She was discharged on cephalexin for 10 days. She was taken back to surgery on October 11 due to persistent drainage and wound dehiscence. She had a fluid collection which was most consistent with seroma/infection . The surgery was done in [place]. Cultures grew Pseudomonas and she was discharged on Cipro. She could not tolerate it and stopped it after 3 days. After the 10 days of cephalexin initially, she received cephalexin September 27 from [facility]. She apparently got doxycycline and azithromycin [...] data Procedure/Surgical History Neck Surgery Stomach Pain [place] Surgery (09/02/2023) incision & drainage (10/12/2023) Medications [...] SARS-CoV-2 (COVID-19 (more content not included)... Normal [facility] Provider Letteron 10-26-2023 Provider Letter (Inserted Image. Shelly ble to display) Tejas Richardson DO [address] [place] [address] Re: Radha Duncan Date of Visit: 10/26/[address] Richardson, Thank you for your referral to my office. Attached you will find the most recent office visit note. Please call if you have any questions or concerns. Sincerely, Pavel Rodriges MD [address] [facility] [address] [facility], [address] [place] [address] The following document(s) were included in the letter: October 26, 2023 10:13:55 EDT - (10/26/2023) Infectious Disease Office Visit Note Normal [facility] ELECTROLYTESon 08-22-2023 Anion gap [Moles/Vol] 8 mmol/L Normal 5-15 [facility] Comment on above: Performed By: #### E LEC #### [facility] ([id number]) [address] [place] [address], [address] [place] [address] Chloride [Moles/Vol] 110 mmol/L High 98-109 [facility] Comment on above: Performed By: #### E LEC #### [facility] ([id number]) [address] [place] [address], [address] [place] [address] CO2 [Moles/Vol] 23 mmol/L Normal 22-32 [facility] Comment on above: Performed By: #### E LEC #### [facility] ([id number]) [address], [address] [place] [address] Potassium [Moles/Vol] 4.4 mmol/L Normal 3.5-5.0 [facility] Comment on above: Performed By: #### E LEC #### [facility] ([id number]) [address], [address] [place] [address] Sodium [Moles/Vol] 141 mmol/L Normal 134-146 [facility] Comment on above: Performed By: #### E LEC #### [facility] ([id number]) [address], [address] [place] [address] CARDIAC AZAR ADMITon 020 CK [Catalytic activity/Vol] 915 U/L Critically high 30-135 [facility] Comment on above: Result Comment: Test repeated. Critical value verified. Performed By: #### D RUGRPD #### [facility] [address] [place], [place] [address] Christian Santanaen CK.MB [Mass/Vol] 12.82 ng/mL Critically high <=2.37 [facility] Comment on above: Result Comment: Test repeated. Critical value verified. Performed By: #### D RUGRPD #### [facility] [address] [place] [address] Christian Mikayla INR Coag (Bld) [Relative time] SEE BELOW Normal [facility] Comment on above: Result Comment: <0.0 34 ng/ml NEGATIVE 0.034-0.119 INDETERMINATE 0.120 AMI CUT OFF Performed By: #### D RUGRPD #### [facility] [address] [place], [place] [address] Christian Mikayla ÁNGEL 96.0 ng/mL Critically high <=61.5 [facility] Comment on above: Performed By: #### D RUGRPD #### [facility] [address] [place], [place] [address] Christian Mikayla TROP 0.028 ng/mL Normal <=0.034 [facility] Comment on above: Performed By: #### D RUGRPD #### [facility] [address] [place], [place] [address] Christian Mikayla CK [Catalytic activity/Vol] 1282 U/L Critically high 30-135 [facility] Comment on above: Result Comment: Test repeated. Critical value verified. Performed By: #### T BLAYNE, CMP #### [facility] [address] [place], [place] [address] Christian Mikayla CK.MB [Mass/Vol] 24.63 ng/mL Critically high <=2.37 Th e [facility] Comment on above: Result Comment: Test repeated. Critical value verified. Performed By: #### T BLAYNE, CMP #### [facility] [address] [place], [place] [address] Christianvíctor Degroot INR Coag (Bld) [Relative time] SEE BELOW Normal [facility] Comment on above: Result Comment: <0.0 34 ng/ml NEGATIVE 0.034-0.119 INDETERMINATE 0.120 AMI CUT OFF Performed By: #### T ROP, CMP #### [facility] [address] [place], [place] [address] Christian Mikayla ÁNGEL 235.0 ng/mL Critically high <=61.5 [facility] Comment on above: Performed By: #### T BLAYNE, CMP #### [facility] [address] [place], [place] [address] Christian Mikayla TROP 0.033 ng/mL Normal <=0.034 [facility] Comment on above: Performed By: #### T BLAYNE, CMP #### [facility] [address] [place], [place] [address] Christian Mikayla CBC AUTO DIFFon 03-07-2020 Basophils (Bld) [#/Vol] 0.0 103/ul Normal 0.0-0.1 [facility] Comment on above: Performed By: #### C BC #### [facility] [address] [place], [place] [address] Christian Mikayla Basophils/100 WBC (Bld) 0.1 % Critically low 0.2-2.0 [facility] Comment on above: Performed By: #### C BC #### [facility] [address] [place], [place] [address] Christian Mikayla Eosinophils (Bld) [#/Vol] 0.0 103/ul Normal 0.0-0.7 [facility] Comment on above: Performed By: #### C BC #### [facility] [address] [place], [place] [address] Christian Mikayla Eosinophils/100 WBC (Bld) 0.0 % Critically low 0.9-7.0 [facility] Comment on above: Performed By: #### C BC #### [facility] [address] [place], [place] [address] Christian Mikayla Erythrocyte distribution width (RBC) [Ratio] 13.4 % Normal 11.0-15.0 [facility] Comment on above: Performed By: #### C BC #### [facility] [address] [place], [place] [address] Christian Mikayla Hematocrit (Bld) [Volume fraction] 35.4 % Critically low 36.0-48.0 [facility] Comment on above: Performed By: #### C BC #### [facility] [address] [place], [place] [address] Christian Mikayla Hemoglobin (Bld) [Mass/Vol] 11.4 g/dL Critically low 12.0-16.0 [facility] Comment on above: Performed By: #### C BC #### [facility] [address] [place], [place] [address] Christian Mikayla IG # 0.07 10e3/ul Critically high 0.00-0.03 [facility] Comment on above: Performed By: #### C BC #### [facility] [address] [place], [place] [address] Christian Mikayla IG % 0.4 % Normal 0.0-0.5 [facility] Comment on above: Performed By: #### C BC #### [facility] [address] [place], [place] [address] Christian Mikayla Lymphocytes (Bld) [#/Vol] 1.1 103/ul Critically low 1.2-3.8 [facility] Comment on above: Performed By: #### C BC #### [facility] [address] [place], [place] [address] Christian Mikayla Lymphocytes/100 WBC (Bld) 6.9 % Critically low 20.5-60.0 [facility] Comment on above: Performed By: #### C BC #### [facility] [address] [place], [place] [address] Christian Mikayla MANUAL DIFF REQ NO Normal [facility] Comment on above: Performed By: #### C BC #### [facility] [address] [place], [place] [address] Christian Mikayla MCH (RBC) [Entitic mass] 32.7 pg Normal 26.7-34.0 [facility] Comment on above: Performed By: #### C BC #### [facility] [address] [place], [place] [address] Christian Mikayla MCHC (RBC) [Mass/Vol] 32.2 g/dL Normal 29.9-35.2 [facility] Comment on above: Performed By: #### C BC #### [facility] [address] [place] [address] Christian Mikayla MCV (RBC) [Entitic vol] 101.4 fL Critically high 81.0-99.0 [facility] Comment on above: Performed By: #### C BC #### [facility] [address] [place] [address] Christian Mikayla Monocytes (Bld) [#/Vol] 1.4 103/ul Critically high 0.3-0.8 [facility] Comment on above: Performed By: #### C BC #### [facility] [address] [place], [place] [address] Christian Mikayla Monocytes/100 WBC (Bld) 8.6 % Normal 1.7-12.0 [facility] Comment on above: Performed By: #### C BC #### [facility] [address] [place], [place] [address] Christian Mikayla Neutrophils (Bld) [#/Vol] 13.4 103/ul Critically high 1.4-6.5 [facility] Comment on above: Performed By: #### C BC #### [facility] [address] [place] [address] Christianvíctor Degroot Neutrophils/100 WBC (Bld) 84.0 % Critically high 43.0-75.0 [facility] Comment on above: Performed By: #### C BC #### [facility] [address] [place] [address] Christianvíctor Degroot Platelet mean volume (Bld) [Entitic vol] 9.5 fL Normal 9.5-13.5 [facility] Comment on above: Performed By: #### C BC #### [facility] [address] [place], [place] [address] Christian Mikayla Platelets (Bld) [#/Vol] 207 103/ul Normal 150-450 [facility] Comment on above: Performed By: #### C BC #### [facility] [address] [place], [place] [address] Christian Mikayla RBC (Bld) [#/Vol] 3.49 106/ul Critically low 4.20-5.40 [facility] Comment on above: Performed By: #### C BC #### [facility] [address] [place], [place] [address] Christian Mikayla WBC (Bld) [#/Vol] 16.0 103/ul Critically high 4.0-11.0 [facility] Comment on above: Performed By: #### C BC #### [facility] [address] [place], [place] [address] Christian Degroot PROF CHEM 8 (BAS METB)on Anion gap [Moles/Vol] 11.2 mmol/L Normal [facility] Comment on above: Performed By: #### D RUGRPD #### [facility] [address] [place], [place] [address] Christian Mikayla Calcium [Mass/Vol] 8.3 mg/dL Critically low 8.4-10.2 [facility] Comment on above: Performed By: #### D RUGRPD #### [facility] [address] [place], [place] [address] Christian Mikayla Chloride [Moles/Vol] 106 mmol/L Normal 98-107 [facility] Comment on above: Performed By: #### D RUGRPD #### [facility] [address] [place] [id number] Christian Mikayla CO2 [Moles/Vol] 24.5 mmol/L Normal 22.0-30.[address] [facility] Comment on above: Performed By: #### D RUGRPD #### [facility] [address] [place] [id number] Christian Mikayla Creatinine [Mass/Vol] 0.53 mg/dL Normal 0.52-1.04 [facility] Comment on above: Performed By: #### D RUGRPD #### [facility] [address] [place] [id number] Christian Mikayla EGFR-AF FAROESE >60 Normal >=[address] [facility] Comment on above: Performed By: #### D RUGRPD #### [facility] [address] [place] [id number] Christian Mikayla EGFR-NON AF FAROESE >60 Normal >=60 [facility] Comment on above: Performed By: #### D RUGRPD #### [facility] [address] [place] [address] Christian Mikayla Glucose [Mass/Vol] 113 mg/dL Critically high 74-106 [facility] Comment on above: Performed By: #### D RUGRPD #### [facility] [address] [place] [id number] Christian Mikayla Potassium [Moles/Vol] 3.7 mmol/L Normal 3.4-5.0 [facility] Comment on above: Performed By: #### D RUGRPD #### [facility] [address] [place] [id number] Christian Mikayla Sodium [Moles/Vol] 138 mmol/L Normal 137-145 [facility] Comment on above: Performed By: #### D RUGRPD #### [facility] [address] [place] [id number] Christian Mikayla Urea nitrogen [Mass/Vol] 12.0 mg/dL Normal 7.0-17.0 [facility] Comment on above: Performed By: #### D RUGRPD #### [facility] [address] [place] [id number] Christian Mikayla Urea nitrogen/Creatinin e [Mass ratio] 22.6 mg/mg Normal [facility] Comment on above: Performed By: #### D RUGRPD #### [facility] [address] [place], [place] [address] Christian Mikayla CBC W MANUAL DIFFon 03-06-20 20 ATYPICAL LYMPH # Normal [facility] Comment on above: Performed By: #### D RUGRPD #### [facility] [address] [place] [address] Christian Mikayla ATYPICAL LYMPH % Normal [facility] Comment on above: Performed By: #### D RUGRPD #### [facility] [address] [place] [address] Christian Mikayla BAND # Normal 0.0-0.3 [facility] Comment on above: Performed By: #### D RUGRPD #### [facility] [address] [place] [address] Christian Mikayla BAND % Normal 0-5 [facility] Comment on above: Performed By: #### D RUGRPD #### [facility] [address] [place] [address] Christian Mikyala BASOM # 0.00 103/ul Normal 0.00-0.10 [facility] Comment on above: Performed By: #### D RUGRPD #### [facility] [address] [place] [address] Christian Mikayla BASOM % 0.0 % Critically low 0.2-2.0 [facility] Comment on above: Performed By: #### D RUGRPD #### [facility] [address] [place] [address] Christian Mikayla BLAST # Normal [facility] Comment on above: Performed By: #### D RUGRPD #### [facility] [address] [place] [address] Christian Mikayla BLAST % Normal [facility] Comment on above: Performed By: #### D JUNED #### [facility] [address] [place], [place] [address] Christian Mikayla CORRECTED WBC Normal 4.0-11.0 [facility] Comment on above: Performed By: #### D RUGRPD #### [facility] [address] [place], [place] [address] Christian Mikayla Eosinophils (Bld) [#/Vol] 0.00 103/ul Normal 0.00-0.70 [facility] Comment on above: Performed By: #### D RUGRPD #### [facility] [address] [place], [place] [address] Christian Mikayla Eosinophils/100 WBC (Bld) 0.0 % Critically low 0.9-7.0 [facility] Comment on above: Performed By: #### D RUGRPD #### [facility] [address] [place] [id number] Christian Mikayla Erythrocyte distribution width (RBC) [Ratio] 13.2 % Normal 11.0-15.0 [facility] Comment on above: Performed By: #### D RUGRPD #### [facility] [address] [place], [place] [address] Christian Mikayla Hematocrit (Bld) [Volume fraction] 44.1 % Normal 36.0-48.0 [facility] Comment on above: Performed By: #### D RUGRPD #### [facility] [address] [place], [place] [address] Christian Mikayla Hemoglobin (Bld) [Mass/Vol] 13.9 g/dl Normal 12.0-16.0 [facility] Comment on above: Performed By: #### D RUGRPD #### [facility] [address] [place], [place] [address] Christian Mikayla LYMPHM # 0.26 103/ul Critically low 1.20-3.80 [facility] Comment on above: Performed By: #### D RUGRPD #### [facility] [address] [place], [place] [address] Christian Mikayla LYMPHM% 1.0 % Critically low 20.5-60.0 [facility] Comment on above: Performed By: #### D RUGRPD #### [facility] [address] [place] [id number] Christian Degroot MCH (RBC) [Entitic mass] 32.6 pg Normal 26.7-34.0 [facility] Comment on above: Performed By: #### D RUGRPD #### [facility] [address] [place] [id number] Christian Degroot MCHC (RBC) [Mass/Vol] 31.5 g/dl Normal 29.9-35.2 [facility] Comment on above: Performed By: #### D RUGRPD #### [facility] [address] [place] [address] Christian Degroot MCV (RBC) [Entitic vol] 103.3 fL Critically high 81.0-99.0 [facility] Comment on above: Performed By: #### Dwayne LESLIERPD #### [facility] [address] [place] [address] Christian Mikayla METAMYELOCYTE # Normal [facility] Comment on above: Performed By: #### D RUGRPD #### [facility] [address] [place], [place] [address] Christian Mikayla METAMYELOCYTE % Normal [facility] Comment on above: Performed By: #### D RUGRPD #### [facility] [address] [place] [address] Christian Mikayla MONOM# 1.32 103/ul Critically high 0.30-0.80 [facility] Comment on above: Performed By: #### D RUGRPD #### [facility] [address] [place] [address] Christian Mikayla MONOM% 5.0 % Normal 1.7-12.0 [facility] Comment on above: Performed By: #### D MARIAMARPD #### [facility] [address] [place] [address] Christian Mikayla MYELOCYTE # Normal [facility] Comment on above: Performed By: #### D RUGRPD #### [facility] [address] [place] [address] Christian Degroot MYELOCYTE % Normal [facility] Comment on above: Performed By: #### D RUGRPD #### [facility] [address] [place], [place] [id number] Christian Degroot NRBC Normal [facility] Comment on above: Performed By: #### D RUGRPD #### [facility] [address] [place], [place] [id number] Christianvíctor Degroot Platelet mean volume (Bld) [Entitic vol] 9.6 fL Normal 9.5-13.5 [facility] Comment on above: Performed By: #### D RUGRPD #### [facility] [address] [place], [place] [id number] Christian Mikayla Platelets (Bld) [#/Vol] 268 103/ul Normal 150-450 [facility] Comment on above: Performed By: #### D RUGRPD #### [facility] [address] [place], [place] [address] Christian Mikayla RBC (Bld) [#/Vol] 4.27 106/ul Normal 4.20-5.40 [facility] Comment on above: Performed By: #### D RUGRPD #### [facility] [address] [place], [place] [address] Christianvíctor Degroot SEG # 24.82 103/ul Critically high 1.40-6.50 [facility] Comment on above: Performed By: #### D RUGRPD #### [facility] [address] [place], [place] [address] Christian Mikayla Segmented neutrophils/100 WBC (Bld) 94.0 % Critically high 43.0-75.0 [facility] Comment on above: Performed By: #### D RUGRPD #### [facility] [address] [place], [place] [address] Christian Mikayla WBC (Bld) [#/Vol] 26.4 103/ul Critically high 4.0-11.0 [facility] Comment on above: Performed By: #### D RUGRPD #### [facility] [address] [place], [place] [address] Christian Degroot CPKon 10-22-2020 CK [Catalytic activity/Vol] 464 U/L Critically high 30-135 [facility] Comment on above: Result Comment: test repeated critical value verified Performed By: #### C K #### [facility] [address] [place] [address] ABD/PELV W CONon 03-06-20 [...] MAT CASEY Date: 2020-03-06 18:45 Normal [facility] CT STROKE HEAD WOon 03-06-20 [...] MAT CASEY Date: 2020-03-06 16:31 Normal [facility] DRUG SCREEN RAPID (URINE)on 03-06-2020 AMP Positive Normal NEGATIVE [facility] Comment on above: Performed By: #### D RUGRPD #### [facility] [address] [place] [address] Christian Mikayla BAR Negative Normal NEGATIVE [facility] Comment on above: Performed By: #### D RUGRPD #### [facility] [address] [place] [address] Christian Mikayla BUP Negative Normal NEGATIVE [facility] Comment on above: Performed By: #### D RUGRPD #### [facility] [address] [place] [address] Christian Mikayla BZO Negative Normal NEGATIVE [facility] Comment on above: Performed By: #### D RUGRPD #### [facility] [address] [place] [address] Christian Mikayla RITCHIE Negative Normal NEGATIVE [facility] Comment on above: Performed By: #### D RUGRPD #### [facility] [address] [place] [address] [facility]-OFFS SEE BELOW Normal [facility] Comment on above: Result Comment: [...] ng/mL Performed By: #### D RUGRPD #### [facility] [address] [place] [address] Christian Mikayla DRUG CUT HEADER DRUG CLASS TEST SYST EM CUT-OFF CONCENTRATIONS ARE FOLLOWS: Normal [facility] Comment on above: Performed By: #### D RUGRPD #### [facility] [address] [place] [address] Christian Mikayla mAMP Negative Normal NEGATIVE [facility] Comment on above: Performed By: #### D RUGRPD #### [facility] [address] [place] [address] Christian Mikayla MTD Negative Normal NEGATIVE [facility] Comment on above: Performed By: #### D RUGRPD #### [facility] [address] [place] [address] Christian Mikayla OPI Positive Normal NEGATIVE [facility] Comment on above: Performed By: #### D RUGRPD #### [facility] [address] [place] [address] Christian Mikayla OXY Negative Normal NEGATIVE [facility] Comment on above: Performed By: #### D RUGRPD #### [facility] [address] [place] [address] Christian Mikayla PCP Negative Normal NEGATIVE [facility] Comment on above: Performed By: #### D RUGRPD #### [facility] [address] [place] [address] Christian Mikayla PPX Negative Normal NEGATIVE [facility] Comment on above: Performed By: #### D RUGRPD #### [facility] [address] [place] [address] Christian Mikayla TCA Negative Normal NEGATIVE [facility] Comment on above: Performed By: #### D RUGRPD #### [facility] [address] [place] [address] Christian Mikayla THC Negative Normal NEGATIVE [facility] Comment on above: Performed By: #### D RUGRPD #### [facility] [address] [place] [address] Christian Mikayla ER URINE PROFILEon 0 Bilirubin [Mass/Vol] Negative Normal NEGATIVE [facility] Comment on above: Performed By: #### E RUR #### [facility] [address] [place] [address] Christian Mikayla BLOOD Negative Normal NEGATIVE [facility] Comment on above: Performed By: #### E RUR #### [facility] [address] [place] [address] Christian Mikayla Clarity (U) CLEAR Normal [facility] Comment on above: Performed By: #### E RUR #### [facility] [address] [place] [address] Christian Mikayla Color (U) YELLOW Normal YELLOW [facility] Comment on above: Performed By: #### E RUR #### [facility] [address] [place] [address] Christian Mikayla ERUAHD A micrscopic examina tion will be performed if indicated. Normal [facility] Comment on above: Performed By: #### E RUR #### [facility] [address] [place] [address] Christian Mikayla Glucose [Mass/Vol] Negative Normal NEGATIVE [facility] Comment on above: Performed By: #### E RUR #### [facility] [address] [place] [address] Christian Mikayla Ketones Ql (U) Negative Normal NEGATIVE [facility] Comment on above: Performed By: #### E RUR #### [facility] [address] [place] [address] Christian Mikayla Nitrite Ql (U) Negative Normal NEGATIVE [facility] Comment on above: Performed By: #### E RUR #### [facility] [address] [place] [address] Christian Mikayla pH (Bld) 6.0 Normal 5-9 [facility] Comment on above: Performed By: #### E RUR #### [facility] [address] [place] [address] Christian Mikayla Protein (U) [Mass/Vol] TRACE Normal [facility] Comment on above: Performed By: #### E RUR #### [facility] [address] [place], [place] [address] Christian Mikayla SPEC GRAVITY >=1.030 Normal 1.005-<=1.02 5 [facility] Comment on above: Performed By: #### E RUR #### [facility] [address] [place] [address] Christianvíctor Degroot UR MICRO IND NOT INDICATED Normal [facility] Comment on above: Performed By: #### E RUR #### [facility] [address] [place] [address] Christianvíctor Degroot Urobilinogen Qn (U) 0.2 EU/dl Normal [facility] Comment on above: Performed By: #### E RUR #### [facility] [address] [place] [address] Christian Mikayla WBC (Bld) [#/Vol] Negative Normal NEGATIVE [facility] Comment on above: Performed By: #### E RUR #### [facility] [address] [place], [place] [address] Christian Mikayla ETHANOL (BLD ALC)on 03-06-20 20 Ethanol [Mass/Vol] NOTE: 80 mg/dl is th e legal limit for a blood alcohol level Normal [facility] Comment on above: Performed By: #### E TH #### [facility] [address] [place], [place] [address] Christian Mikayla Ethanol [Mass/Vol] mg/dL Normal [facility] Comment on above: Performed By: #### E TH #### [facility] [address] [place], [place] [address] Christian Mikayla HEMOGRAM AND PLATELon 2019 WBC (Bld) [#/Vol] 23.5 103/ul Critically high 4.0-11.0 T [facility] [place] Comment on above: Performed By: #### H H #### [facility] [address] [place], [place] [address] Christian Degroot LACTATE/LACTIC ACIDon 2019 Lactate [Moles/Vol] 0.7 mmol/L Normal 0.7-2.0 [facility] Comment on above: Performed By: #### L ACT #### [facility] [address] [place] [address] Christian Degroot MYOGLOBINon 03-06-2020 Myoglobin [Mass/Vol] 918.0 ng/mL Critically high <=61.5 [facility] Comment on above: Result Comment: test repeated critical value verified Performed By: #### M YO #### [facility] [address] [place] [address] Christian Degroot POINT OF CARE GLUCOSEon 02-14 Glucose [Mass/Vol] 117 mg/dL Critically high 74-106 [facility] Comment on above: Performed By: #### D RUGRPD #### [facility] [address] [place] [address] Christian Degroot PROF 14(COMP METB)on 020 Albumin [Mass/Vol] 3.3 g/dL Critically low 3.5-5.0 [facility] Comment on above: Performed By: #### T BLAYNE CMP #### [facility] [address] [place], [place] [address] Christian Degroot Albumin/Globulin [Mass ratio] 1.1 {ratio} Normal [facility] Comment on above: Performed By: #### T BLAYNE, CMP #### [facility] [address] [place] [address] Christian Mikayla ALP [Catalytic activity/Vol] 69 U/L Normal 38-126 [facility] Comment on above: Performed By: #### T BLAYNE, CMP #### [facility] [address] [place], [place] [address] Christian Mikayla ALT [Catalytic activity/Vol] 30 U/L Normal 9-52 [facility] Comment on above: Performed By: #### T BLAYNE, CMP #### [facility] [address] [place], [place] [address] Christian Mikayla Anion gap [Moles/Vol] 16.8 mmol/L Normal [facility] Comment on above: Performed By: #### T ROP, CMP #### [facility] [address] [place] [id number] Christian Mikayla AST [Catalytic activity/Vol] 29 U/L Normal 14-36 [facility] Comment on above: Performed By: #### T ROP, CMP #### [facility] [address] [place] [id number] Christian Mikayla Bilirubin Ql (U) 0.4 mg/dL Normal 0.2-1.3 [facility] Comment on above: Performed By: #### T ROP, CMP #### [facility] [address] [place], [place] [address] Christian Mikayla Calcium [Mass/Vol] 8.7 mg/dL Normal 8.4-10.2 [facility] Comment on above: Performed By: #### T ROP, CMP #### [facility] [address] [place] [address] Christian Mikayla Chloride [Moles/Vol] 104 mmol/L Normal 98-107 [facility] Comment on above: Performed By: #### T ROP, CMP #### [facility] [address] [place], [place] [address] Christian Mikayla CO2 [Moles/Vol] 22.6 mmol/L Normal 22.0-30.0 [facility] Comment on above: Performed By: #### T ROP, CMP #### [facility] [address] [place] [id number] Christian Mikayla Creatinine [Mass/Vol] 0.92 mg/dL Normal 0.52-1.04 [facility] Comment on above: Performed By: #### T ROP, CMP #### [facility] [address] [place], [place] [address] Christian Mikayla EGFR-AF FAROESE >60 Normal >=60 [facility] Comment on above: Performed By: #### T ROP, CMP #### [facility] [address] [place] [id number] Christian Mikayla EGFR-NON AF FAROESE >60 Normal >=60 [facility] Comment on above: Performed By: #### T ROP, CMP #### [facility] [address] [place] [id number] Christian Mikayla Globulin (S) [Mass/Vol] 3.0 g/dL Normal [facility] Comment on above: Performed By: #### T ROP, CMP #### [facility] [address] [place] [id number] Christian Mikayla Glucose [Mass/Vol] 130 mg/dL Critically high 74-106 [facility] Comment on above: Performed By: #### T ROP, CMP #### [facility] [address] [place] [id number] Christian Mikayla Potassium [Moles/Vol] 4.4 mmol/L Normal 3.4-5.0 [facility] Comment on above: Performed By: #### T ROP, CMP #### [facility] [address] [place] [id number] Christian Mikayla Protein [Mass/Vol] 6.3 g/dL Normal 6.1-8.2 [facility] Comment on above: Performed By: #### T ROP, CMP #### [facility] [address] [place] [id number] Christian Mikayla Sodium [Moles/Vol] 139 mmol/L Normal 137-145 [facility] Comment on above: Performed By: #### T ROP, CMP #### [facility] [address] [place] [id number] Christian Mikayla Urea nitrogen [Mass/Vol] 18.0 mg/dL Critically high 7.0-17.0 [facility] Comment on above: Performed By: #### T ROP, CMP #### [facility] [address] [place] [id number] Christian Mikayla Urea nitrogen/Creatinin e [Mass ratio] 19.6 mg/mg Normal [facility] Comment on above: Performed By: #### T ROP, CMP #### [facility] [address] [place] [id number] Christian Mikayla RESPIRATORY PANEL PLUSon Adenovirus NOT DETECTED Normal NOT DETECTED [facility] Comment on above: Performed By: #### D RUGRPD #### [facility] [address] [place] [address] Christian Mikayla B. Parapertusis NOT DETECTED Normal NOT DETECTED [facility] Comment on above: Performed By: #### D RUGRPD #### [facility] [address] [place] [address] Christian Mikayla B. Pertussis NOT DETECTED Normal NOT DETECTED [facility] Comment on above: Performed By: #### D RUGRPD #### [facility] [address] [place] [address] Christian Mikayla Chlamydia Pneumoniae NOT DETECTED Normal NOT DETECTED [facility] Comment on above: Performed By: #### D RUGRPD #### [facility] [address] [place] [address] Christian Mikayla Coronavirus 229E NOT DETECTED Normal NOT DETECTED [facility] Comment on above: Performed By: #### D RUGRPD #### [facility] [address] [place] [address] Christian Mikayla Coronavirus HKU1 NOT DETECTED Normal NOT DETECTED [facility] Comment on above: Performed By: #### D RUGRPD #### [facility] [address] [place] [address] Christian Mikayla Coronavirus NL63 NOT DETECTED Normal NOT DETECTED [facility] Comment on above: Performed By: #### D RUGRPD #### [facility] [address] [place] [address] Christian Mikayla Coronavirus OC43 NOT DETECTED Normal NOT DETECTED [facility] Comment on above: Performed By: #### D RUGRPD #### [facility] [address] [place] [address] Christian Mikayla Influenza A H1 2009 NOT DETECTED Normal NOT DETECTED [facility] Comment on above: Performed By: #### D RUGRPD #### [facility] [address] [place] [address] Christian Mikayla Influenza B NOT DETECTED Normal NOT DETECTED [facility] Comment on above: Performed By: #### D RUGRPD #### [facility] [address] [place] [address] Christian Mikayla Metapneumovirus NOT DETECTED Normal NOT DETECTED [facility] Comment on above: Performed By: #### D RUGRPD #### [facility] [address] [place] [id number] Christian Mikayla Mycoplas. Pneumoniae NOT DETECTED Normal NOT DETECTED [facility] Comment on above: Performed By: #### D RUGRPD #### [facility] [address] [place] [address] Christian Mikayla Parainfluenza 1 NOT DETECTED Normal NOT DETECTED [facility] Comment on above: Performed By: #### D RUGRPD #### [facility] [address] [place] [address] Christian Mikayla Parainfluenza 2 NOT DETECTED Normal NOT DETECTED [facility] Comment on above: Performed By: #### D RUGRPD #### [facility] [address] [place] [address] Christian Mikayla Parainfluenza 3 NOT DETECTED Normal NOT DETECTED [facility] Comment on above: Performed By: #### D RUGRPD #### [facility] [address] [place] [address] Christian Mikayla Parainfluenza 4 NOT DETECTED Normal NOT DETECTED [facility] Comment on above: Performed By: #### D RUGRPD #### [facility] [address] [place] [address] Christian Mikayla Rhino/Enterovirus NOT DETECTED Normal NOT DETECTED [facility] Comment on above: Performed By: #### D RUGRPD #### [facility] [address] [place], [place] [id number] Christian Mikayla RP2 Header 1 RESPIRATORY PANEL: VIRUSES Normal [facility] Comment on above: Performed By: #### D RUGRPD #### [facility] [address] [place] [address] Christian Mikayla RP2 Header 2 RESPIRATORY PANEL: BACTERIA Normal [facility] Comment on above: Performed By: #### D RUGRPD #### [facility] [address] [place] [address] Christian Degroot RP2 Header 4 EUA SEE BELOW Normal The [facility] Comment on above: Result Comment: This test is not yet approved or cleared by the [place] FDA. When there are no FDA-approved or cleared tests available, and other criteria are met, FDA can make tests available under an emergency access mechanism called an Emergency Use Authorization (EUA). The EUA for this test is supported by the [place] of Health and Human Service?s (HHS?s) declaration [...] used). Performed By: #### D RUGRPD #### [facility] [address] [place] [address] Christianvíctor Santanaen RSV NOT DETECTED Normal NOT DETECTED [facility] Comment on above: Performed By: #### D RUGRPD #### [facility] [address] [place] [address] Christian Degroot SARS-CoV-2: COVID-19 NOT DETECTED Normal NOT DETECTED [facility] Comment on above: Performed By: #### D RUGRPD #### [facility] [address] [place] [address] Christian Degroot TROPONIN - Ion 03-06-2020 Troponin I.cardiac [Mass/Vol] 0.016 ng/mL Normal <=0.034 [facility] Comment on above: Performed By: #### T ROP, CMP #### [facility] [address] [place] [address] Christian Degroot Troponin I.cardiac [Mass/Vol] SEE BELOW Normal [facility] Comment on above: Result Comment: <0.0 34 ng/ml NEGATIVE 0.034-0.119 INDETERMINATE 0.120 AMI CUT OFF Performed By: #### T ROP, CMP #### [facility] [address] [place] [address] Christian Degroot XR CHEST 1 Von 03-06-2020 [...] by: FELA SMITH Date: 2020-03-06 15:[address] [facility] [address] 3D CERVICAL SPINE WITH CO NTRASTon 04-27-2018 CT 3D CERVICAL SPINE WITH CONTRAST [facility] [address] [place] [address] Patient Name: RADHA DUNCAN : 1970Sex: FAge: Race: WhiteMRN: [id number]. Location: 85Patient Status: OVisit #: [id number] Date: 04/10/2018 12:10:00 PMCompleted Date: 04/27/2018 10:58 AMRequesting Provider: MARY DIAL Attending Provider: MARY DIAL Report Copy To: TEJAS RICHARDSON Signs & Symptoms: M54.12 Radiculopathy, cervical region S97Henfwjw: Nyla MYELOGRAM AUTH [id number] VALID 04/11/18-07/12/18 [facility] [id number] JYComments: Exam: CT 3D CERVICAL SPINE WITH CONTRASTAccession #: [id number] CT 3D CERVICAL SPINE WITH CONTRAST 04/27/2018 [...] findings. Electronically signed by:Oli Sanders. Transcribed by: [email or web address], User Resident: MANDEEP YOUNGElectronically Signed by: OLI SANDERS @ 04/27/2018 01:02 PMI personally read this/these film(s) with this resident Normal The [facility] CT 3D LUMBAR SPINE W CONTRAS Ton 04-27-2018 CT 3D LUMBAR SPINE W CONTRAST [facility] [address] [place] [address] Patient Name: RADHA DUNCAN : 1970Sex: FAge: Race: WhiteMRN: [id number]. Location: 85Patient Status: DVisit #: [id number] Date: 04/10/2018 12:10:00 PMCompleted Date: 04/27/2018 10:59 AMRequesting Provider: MARY DIAL Attending Provider: MARY DIAL Report Copy To: TEJAS RICHARDSON Signs & Symptoms: M54.16 Radiculopathy, lumbar region M71Tliqqba: Nyla MYELOGRAM AUTH [id number] VALID 04/11/18-07/12/18 PER [employer] [facility] [id number] JYComments: Exam: CT 3D LUMBAR SPINE W CONTRASTAccession #: [id number] CT 3D LUMBAR SPINE W CONTRAST 04/27/2018 [...] findings. Electronically signed by:Antony Skelton. Transcribed by: [email or web address], User Resident: MANDEEP YOUNGElectronically Signed by: ANTONY SKELTON @ 04/27/2018 05:36 PMI personally read this/these film(s) with this resident Normal The [facility] ENTIRE MYELOGRAMon 8 ENTIRE MYELOGRAM [facility] [address] [place] [address] Patient Name: RADHA DUNCAN : 1970Sex: FAge: Race: WhiteMRN: [id number]. Location: 85Patient Status: OVisit #: [id number] Date: 04/10/2018 12:10:00 PMCompleted Date: 04/27/2018 10:19 AMRequesting Provider: MARY DIAL Attending Provider: MARY DIAL Report Copy To: TEJAS RICHARDSON Signs & Symptoms: M54.16 Radiculopathy, lumbar region X11Xaszrug: [place] CT MYELOGRAMComments: , , , Ordering Provider - MARY DIAL MD , Exam: ENTIRE MYELOGRAMAccession #: [id number] ENTIRE MYELOGRAM 04/27/2018 10:19 AM EST SIGNS [...] and risks are acceptable. Consent was obtained. Timeout:[place] protocol timeout verification performed. PROCEDURE:Estimated blood loss:None [...] findings. Electronically signed by:Oli Sanders. Transcribed by: [email or web address], User Resident: MANDEEP YOUNGElectronically Signed by: OLI SANDERS @ 04/27/2018 01:01 PMI personally read this/these film(s) with this resident Normal [facility] Comment on above: Order Comment: , , = ========= , Ordering Provider - MARY DIAL MD , CNPNon 02-20-2018 CNPYamilex Telephone (JOYCELYN) -------RADHA DUNCAN ([id number]) 1970 FDate Time Provider Xkpmfmjdbc32/8/18 MAGED MURDOCK During your visit today, we recorded the following information about you:[facility] Patient Service Spec 02/20/2018 8:05 AM [...] from his care.Please call her back at [phone].Elysia Montoya Psr 02/22/2018 8:37 AM SignedPlease fax letter over to [phone].Clint Park LPN 02/27/2018 10:18 AM SignedSpoke with patient and she wanted to know if knew of a physician inthe area that she lived that could do the ketamine infusion.I explained most likely he would not have this information she would need tocheck around in her area with other pain providers to see if they do theinfusions. She said she found one in the [place] area but they want money upfront and [...] Known Allergies)Date Reviewed: 02/10/2018Reviewed by: Kayla Sparks DENTAL EQUIPMENT REPAIRER - Fully AssessedReason for Visit: Letter [264]Prescriptions [...] Status:Closed by MAGED MURDOCK MD on 02/28/18 [facility] CNOVon 02-10-2018 CNOV Office Visit (PAINCC) -------RADHA DUNCAN ([id number]) 1970 FDate Time Provider Department02/10/18 10:45 AM MAGED MURDOCK During your visit today, we recorded the following information about you: Pulse Respiration Blood pressure Weight 80/minute 16/minute 132/47 69.9 kgJosenjourdan Murdock MD 02/11/2018 1:30 PM AddendumSUBJECTIVE:The patient presents to [facility] Pain Management Department for afollow-up appointment [...] [facility].Imaging results in scanned [...] other than HPI.Data scribed by above mentioned MA/DENTAL EQUIPMENT REPAIRER/RN/PA, and personally reviewed andverified by physician. Maged [...] treatment plan. Patient agreeswith above. 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2017Maged MurdockCleveland Clinic South Pointe HospitalDepartment of Pain Bwblhjus[address] [place], [place] [phone] [phone] Suzanne M Bailey:Thank you for seeing me [...] any questions. Sincerely, Maged Murdock MDEncounter Number: [id number] Status:Closed by MAGED MURDOCK MD on 02/11/18 Normal [facility] PRO[facility]on 02-10-2018 Protein mass conc HNO ID: [id number] thor: Maged Jolleyervice: (none)Author Type: PhysicianType: Progress NotesFiled: 02/11/2018 1:30 PMNote Text:SUBJECTIVE:The patient presents to [facility] Pain Management Departmentfor a follow-up appointment [...] other than HPI.Data scribed by above mentioned MA/DENTAL EQUIPMENT REPAIRER/RN/PA, and personally reviewed andverified by physician. Maged [...] resulting treatment plan. Patientagrees with above. Maged Mudrock, PAUeptember 2017 Normal [facility] CNOVon 01-10-2018 CNOV Office Visit (PAINCC) -------RADHA DUNCAN ([id number]) 1970 FDate Time Provider Department01/10/18 1:00 PM MONICA YAN ([facility]) PAINCC During your visit today, we recorded the following information about you: Pulse Blood pressure Weight 85/minute 127/47 70.3 kgMonica Yan APRN.CNP 01/10/2018 2:13 PM SignedSUBJECTIVE:The patient presents to [facility] Pain Management Department for afollow-up appointment [...] and C4-C5 secondaryto DDDAnterior mechanical fusion of H4-5-6MAYTSJ OF SYSTEMS:GENERAL: (-) weight loss, (+)malaise, (-)fevers.HEENT:(+)headache [...] other than HPI.Data scribed by above mentioned MA/DENTAL EQUIPMENT REPAIRER/RN/PA, and personally reviewed andverified by Monica Yan [...] resulting treatment plan. Patient agreeswith above.Monica Yan APRN.CNPAugust 2017Referring Provider: TEJAS RICHARDSON JR [[id number]]Allergies As of Date: 01/10/2018(No Known Allergies)Date Reviewed: [...] INVALID FOR*Follow-up and Disposition History RecordedEncounter Number: [id number] Status:Closed by MONICA YAN CNP on 01/10/18 Normal [facility] PROGRESSon 01-09-2018 Protein mass conc HNO ID: [id number] thor: Monica Pereyra ([employer]) HillService: (none)Author Type: Nurse PractitionerType: Progress NotesFiled: 01/10/2018 2:13 PMNote Text:SUBJECTIVE:The patient presents to [facility] Pain Management Departmentfor a follow-up appointment [...] to moderate foraminal narrowing at C3-C4, and C4-T8bqpafoiwg to DDDAnterior mechanical fusion of L7-3-7HNVCOR OF SYSTEMS:GENERAL: (-) weight loss, (+)malaise, (-)fevers.HEENT:(+)headache [...] other than HPI.Data scribed by above mentioned MA/DENTAL EQUIPMENT REPAIRER/RN/PA, and personally reviewed andverified by Monica Yan [...] resulting treatment plan. Patientagrees with above.Monica Yan APRN.CNPAugust 2017 Normal [facility] Ta 12-21-2017 CNPN Telephone (PAIN) -------DAKOTARADHA ([id number]) 1970 FDate Time Provider Department12/21/17 MAGED MURDOCK During your visit today, we recorded the following information about you:Lorena Araiza 12/21/2017 10:31 AM AddendumPatient calling in to inquire if you have received MRI [facility].Please advisJacob Park LPN 12/22/2017 3:15 PM SignedSpoke with patient and informed her that we did receive the thoracic MRI whichwas normal.We did not receive the cervical MRI. She will call [facility] and have them refaxit.Kami Paintinglelyn 12/26/2017 9:53 AM SignedPatient called back in regards to below message. Patient would like to know ifwe have received the Cervical MRI as it was refaxed 12/22. Pleasereview.Clint Park LPN 12/26/2017 11:01 AM SignedSpoke to [facility] and they are refaxing it as I [...] Status:Closed by CLINT PARK LPN on 12/22/17 [facility] CNOVon 12-08-2017 CNOV Office Visit (PAINCC) -------RADHA DUNCAN ([id number]) 1970 [facility] Time Provider Department12/08/17 1:30 PM MAGED MURDOCK During your visit today, we recorded the following information about you: Pulse Respiration Blood pressure Weight 62/minute 16/minute 105/40 68.9 kgJosenjourdan Murdock MD 12/08/2017 6:06 PM SignedReferring Or Consulting Physician:JACKY Vargas[address] [facility] [address] [address]FETBK COMPLAINT: pain in my neck, shoulders, thoracic [...] Number of children: 0Occupational 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 Maged [...] also during rena-operative period. we dont have whro-stsmjzn-kngquvqb for disability, likely to hamper rapid recovery [...] she did have severe postprocedure pain in [place] [facility] handsDirect patient care time spent: [...] above via electronicrecord, fax, or mail.Maged Murdock MDJu2017Referring Provider: LINDSEY AGUILAR [[id number]]Allergies As of Date: 12/08/2017(No Known Allergies)Date Reviewed: [...] region [M48.02]Order(s):C-REACTIVE PROTEIN (CRP) [SQCRP] Order #: [id number] FUTURE SED RATE WESTERGREN [SQWSR] Order #: [id number] FUTURE TSH BLD [SQTSH] Order #: [id number] FUTURE IRON + TIBC [SQIRON] Order #: [id number] FUTURE VITAMIN D 25 HYDROXY [SQVITD] Order #: [id number] FUTURE MRI THORACIC SPINE WO/W IVCON [[id number]] Order #: [id number] FUTURE iv contrast (will be provided with [...] EachRfl: 0 MRI CERVICAL SPINE WO IVCON [[id number]] Order #: [id number] FUTUREPrescriptions as of 12/08/2017 Sig: OXCARBAZEPINE 150 [...] is not on file.Letter TextJuly 2017Maged Murdock [facility]Department [facility] Irjqrvnow[address], [place] [phone] [phone] Suzanne M Bailey:Thank you for seeing me [...] medications for the issues above, [facility] next [facility]. Afterthat, further testing could be done to get to the bottom of your problems.Please call with any questions. 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 Facility:[facility] Start: 10-26-2023 End: 10-26-2023 ambulatory Pavel Rodriges MD Facility:[facility] Start: 10-26-2023 End: 10-26-2023 ambulatory Tejas Richardson DO Facility:[facility] Start: 08-22-2023 End: 08-22-2023 ambulatory TEJAS Roddy DYLAN [facility] Start: 08-15-2023 End: 09-14-2023 ambulatory [facility] Start: 07-18-2023 End: 08-15-2023 ambulatory [facility] Start: 03-06-2020 End: 03-07-2020 Patient encounter procedure PEREZ LESTER Facility: Start: 04-27-2018 End: 04-28-2018 Patient encounter procedure PROVIDER UNKNOWN Facility:[facility] Start: 02-10-2018 End: 02-13-2018 Patient encounter MAGED MURDOCK [facility] Start: 01-10-2018 End: 01-11-2018 Patient encounter MONICA Roddy (ARLENE) [facility] Start: 12-08-2017 End: 12-09-2017 Patient encounter MAGED TELLEZAHAM [facility] Procedures Date Procedure Procedure Detail Performing Clinician Start: 03-06-2020 End: 03-06-2020 Microscopic examination of blood, culture PEREZ LESTER Comment on above: Performed By: #### [facility] #### [facility] [address] [place] [address] Christian Degroot Payers Date Payer Category Payer Unknown 2022 Unknown [id number] 1970 Unknown [id number] 2.16.8 [id number] 1970 Unknown [id number] 2.16.84 [id number] 1970 Unknown [id number] 2.16. [id number] 1970 Unknown [id number] 2.16. [id number] 1970 Unknown [id number] 2.16. [id number] 1970 Unknown [id number] 2.16.8 [id number] 1970 Unknown [id number] 2.16.8 [id number] 1970 Unknown [id number] 2.16.8 [id number] 1970 Unknown [id number] 2.16.8 40.1.886906.3.579.2.1286 1970 Unknown [id number] 2.16.8 [id number] 1960 Unknown [id number] Unknown [id number] Summary Purpose Family History No Family History Records FoundNo Family History Records FoundNo Family History Records FoundNo Family History Records FoundNo Family History Records Found Advance Directives No Advanced Directives Records FoundNo Advanced Directives Records FoundNo Advanced Directives Records FoundNo Advanced Directives Records FoundNo Advanced Directives Records Found Additional Source Comments INFORMATION SOURCE (unrecogn ized section and content) DATE CREATED AUTHOR 04/03/2018 [facility] DATE CREATED AUTHOR AUTHOR'S ORGANIZ ATION 05/03/2018 [facility] DATE CREATED AUTHOR AUTHOR'S ORGANIZ ATION 04/09/2020 [facility] DATE CREATED AUTHOR AUTHOR'S ORGANIZ ATION 11/17/2023 [facility] DATE CREATED AUTHOR AUTHOR'S ORGANIZ ATION 01/15/2024 [facility] FOR RECORDS PERTAINING TO PATIENTS WHO ARE [...] BE BASED ON THE PRIMARY CLINICAL RECORDS. [facility] [employer] [facility]. provides no warranty or guarantee of the accuracy or completeness of information in this document.
== END 2024-02-17 09:50 | disposition home or self-care (01) ==
LOC: EC 09:49
PROVIDERS: PCP Internal Medicine; Visit Provider Orthopaedic Surgery Orthopaedic Surgery of the Spine
DX: M54.50 Low back pain, unspecified (principal); M43.26 Fusion of spine, lumbar region; M51.369 Other intervertebral disc degeneration, lumbar region without mention of lumbar back pain or lower extremity pain
CPT/HCPCS: 72100

== ENCOUNTER 2024-06-11 12:44 | Outpatient (OUT) | payer OTHER, SELFPAY ==
--- OUTSIDE RECORDS SUMMARY | 2024-06-11 12:58 | XMS_ITS | CCD ---
Author Organization [facility] Care Team Providers Care Shear Grinder Operator Helper Name Role Phone MAGED MURDOCK Unavailable Unavailable LINDSEY AGUILAR (PA) Unavailable Unavail able MONICA YAN (COMMERCIAL SHEET METAL FOREMAN) Unavailable Unavailabl TEJAS Benavidez JR Unavailable Unavail able MAGED MURDOCK Unavailable Unavailable LINDSEY AGUILAR (PA) Unavailable Unavail able UNKNOWN, PROVIDER Unavailable Unavailable UNKNOWN, PROVIDER Unavailable Unavailable TEJAS RICHARDSON Unavailable Unavailable TEJAS RICHARDSON Unavailable Unavailable PEREZ LESTER Admitting Unavailable TEJAS [...] Care Unavailable NICOLE COLLADO Referring Unavailable VALONE JR TEJAS L Primary Care Unavailable VALONE JR, [...] VALONE JR, TEJAS L Primary Care Unavailable FELA ROMAN Referring Unavailable VALONE JR, TEJAS L Primary Care Unavailable FELA ROMAN Referring Unavailable VALONE JR, TEJAS L Primary Care Unavailable JONATHAN CRUZ Referring Unavailabl e DYLAN BARGER, TEJAS Pereyra Primary Care Unavailable PHYSICIAN, UNKNOWN Referring Unavailable DYLAN BARGER, TEJAS Roddy Primary Care Unavailable VELVET, FELA Taz Referring Unavailable DYLAN BARGER, TEJAS Pereyra Primary Care Unavailable PHYSICIAN, UNKNOWN Referring Unavailable DYLAN BARGER, TEJAS Pereyra Primary Care Unavailable VELVET, FELA S Referring Unavailable DYLAN BARGER, TEJAS Pereyra Primary Care Unavailable VELVET, FELA S Referring Unavailable DYLAN BARGER, TEJAS Pereyra Primary Care Unavailable Allergies Allergy Classification Reported Allergen(s) Allergy Type Date of Onset Reaction(s) Facility (2 sources) Morphine; Translations: [MORPHINE] Drug Allergy 10-18-2022 [facility] Repository Problems Active Problems Problem Classification Problem Date Documented Date Episodic/Chronic Complication of device; implant or graft (4 sources) Breakdown (mechanical) of other specified internal prosthetic devices, implants and grafts, initial encounter; Translations: [Infection and inflammatory reaction due to other nervous system device, implant or graft, initial encounter] Onset: 03-18-2020 Episodic Immunizations and screening for [...] OTH OPIOIDS ACC INITIAL ENC] Onset: 03-06-2020 Residual codes; unclassified (1 source) Edema, unspecified; Translations: [Edema, unspecified] Onset: 03-07-2024 Episodic Spondylosis; intervertebral disc disorders; other back problems (7 sources) Other spondylosis with radiculopathy, cervical region; Translations: [Other spondylosis with radiculopathy, lumbar region] Onset: 04-27-2018 Chronic Substance-related disorders (1 source) Nicotine dependence, cigarettes, uncomplicated; Translations: [NICOTINE DEPEND CIGARETTES UNCOMP] Onset: 03-18-2020 Chronic Unclassified (3 sources) Unknown / UNK(Unknown) Onset: 12-08-2017 Past or Other Problems Problem Classification Problem Date Documented Da te Episodic/Chronic Fluid and electrolyte disorders (1 source) Hypokalemia; Translations: [Hypokalemia] Onset: 08-22-2023 Episodic Spondylosis; intervertebral disc disorders; other back problems (6 sources) Radiculopathy, cervical region; Translations: [Radiculopathy, lumbar region] Onset: 04-27-2018 Episodic Results Test Name Value Interpretation Reference Range Facility COMPLETE BLOOD COUNTon 04-24 Erythrocyte distribution width (RBC) [Ratio] 16.6 % High 11.5-15.0 [facility] Comment on above: Performed By: #### C KJ, PV DESIGN AND INSTALLATION TECHNICIAN #### [facility] ([id number]) [address], [address] [place] [address] Hematocrit (Bld) [Volume fraction] 40.9 % Normal 35-47 [facility] Comment on above: Performed By: #### C KJ, PV DESIGN AND INSTALLATION TECHNICIAN #### [facility] ([id number]) [address], [address] [place] [address] Hemoglobin (Bld) [Mass/Vol] 13.5 g/dL Normal 11.7-15.5 [facility] Comment on above: Performed By: #### C KJ, PV DESIGN AND INSTALLATION TECHNICIAN #### [facility] ([id number]) [address], [address] [place] [address] MCH (RBC) [Entitic mass] 32.0 pg Normal 27-34 [facility] Comment on above: Performed By: #### C KJ, PV DESIGN AND INSTALLATION TECHNICIAN #### [facility] ([id number]) [address], [address] [place] [address] MCHC (RBC) [Mass/Vol] 33.1 g/dL Normal 32-36 [facility] Comment on above: Performed By: #### C BC, PV DESIGN AND INSTALLATION TECHNICIAN #### [facility] ([id number]) [address], [address] [place] [address] MCV (RBC) [Entitic vol] 97 fL Normal 80-100 [facility] Comment on above: Performed By: #### C KJ, PV DESIGN AND INSTALLATION TECHNICIAN #### [facility] ([id number]) [address], [address] [place] [address] Platelet mean volume (Bld) [Entitic vol] 8.8 fL Normal 7-12 [facility] Comment on above: Performed By: #### C KJ, PV DESIGN AND INSTALLATION TECHNICIAN #### [facility] ([id number]) [address], [address] [place] [address] Platelets (Bld) [#/Vol] 328 10*3/uL Normal 150-450 [facility] Comment on above: Performed By: #### C KJ, PV DESIGN AND INSTALLATION TECHNICIAN #### [facility] ([id number]) [address], [address] [place] [address] RBC COUNT 4.23 X10E12/L Normal 3.80-5.20 [facility] Comment on above: Performed By: #### C KJ, PV DESIGN AND INSTALLATION TECHNICIAN #### [facility] ([id number]) [address], [address] [place] [address] WBC (Bld) [#/Vol] 9.0 10*3/uL Normal 4.0-11.0 [facility] Comment on above: Performed By: #### C KJ, PV DESIGN AND INSTALLATION TECHNICIAN #### [facility] ([id number]) [address], [address] [place] [address] CREATININEon 04-24-2024 Creatinine [Mass/Vol] 0.72 mg/dL Normal 0.40-1.00 [facility] Comment on above: Result Comment: METH OD TRACEABLE TO IDMS STANDARD Performed By: #### C KJ, PV DESIGN AND INSTALLATION TECHNICIAN #### [facility] ([id number]) [address] [address] eGFR (CKD-EPI) NON-RACE DEPENDENT >90 Normal >59 [facility] Comment on above: Result Comment: Reported eGFR is based on the CKD-EPI 2020 equation that does not use a race coefficient. Performed By: #### C KJ, PV DESIGN AND INSTALLATION TECHNICIAN #### [facility] ([id number]) [address] [address] COMPLETE BLOOD COUNTon 04-11 Erythrocyte distribution width (RBC) [Ratio] 16.9 % High 11.5-15.0 [facility] Comment on above: Performed By: #### Jacqueline UNDERWOOD, PV DESIGN AND INSTALLATION TECHNICIAN #### [facility] ([id number]) [address] [address] Hematocrit (Bld) [Volume fraction] 41.0 % Normal 35-47 [facility] Comment on above: Performed By: #### Jacqueline UNDERWOOD, PV DESIGN AND INSTALLATION TECHNICIAN #### [facility] ([id number]) [address] [address] Hemoglobin (Bld) [Mass/Vol] 13.8 g/dL Normal 11.7-15.5 [facility] Comment on above: Performed By: #### C KJ, PV DESIGN AND INSTALLATION TECHNICIAN #### [facility] ([id number]) [address] [address] MCH (RBC) [Entitic mass] 32.3 pg Normal 27-34 [facility] Comment on above: Performed By: #### Jacqueline UNDERWOOD, PV DESIGN AND INSTALLATION TECHNICIAN #### [facility] ([id number]) [address] [address] MCHC (RBC) [Mass/Vol] 33.5 g/dL Normal 32-36 [facility] Comment on above: Performed By: #### C KJ, PV DESIGN AND INSTALLATION TECHNICIAN #### [facility] ([id number]) [address], [facility] [address] [place] [address] MCV (RBC) [Entitic vol] 96 fL Normal 80-100 [facility] Comment on above: Performed By: #### C KJ, PV DESIGN AND INSTALLATION TECHNICIAN #### [facility] ([id number]) [address], [address] [address] Platelet mean volume (Bld) [Entitic vol] 9.1 fL Normal 7-12 [facility] Comment on above: Performed By: #### C KJ, PV DESIGN AND INSTALLATION TECHNICIAN #### [facility] ([id number]) [address], [address] [address] Platelets (Bld) [#/Vol] 291 10*3/uL Normal 150-450 [facility] Comment on above: Performed By: #### C KJ, PV DESIGN AND INSTALLATION TECHNICIAN #### [facility] ([id number]) [address], [address] [address] RBC COUNT 4.27 X10E12/L Normal 3.80-5.20 [facility] Comment on above: Performed By: #### C KJ, PV DESIGN AND INSTALLATION TECHNICIAN #### [facility] ([id number]) [address], [address] [address] WBC (Bld) [#/Vol] 8.9 10*3/uL Normal 4.0-11.0 [facility] Comment on above: Performed By: #### C KJ, PV DESIGN AND INSTALLATION TECHNICIAN #### [facility] ([id number]) [address] [address] CREATININEon 04-11-2024 Creatinine [Mass/Vol] 0.73 mg/dL Normal 0.40-1.00 [facility] Comment on above: Result Comment: METH OD TRACEABLE TO IDMS STANDARD Performed By: #### C BC, PV DESIGN AND INSTALLATION TECHNICIAN #### [facility] ([id number]) [address], [address] [place] [address] eGFR (CKD-EPI) NON-RACE DEPENDENT >90 Normal >59 [facility] Comment on above: Result Comment: Reported eGFR is based on the CKD-EPI 2020 equation that does not use a race coefficient. Performed By: #### C BC, PV DESIGN AND INSTALLATION TECHNICIAN #### [facility] ([id number]) [address], [address] [place] [address] ASPIRATE CULTUREon Bacteria identified Aer cx Nom (Asp) SPECIMEN NOTES around pump pocket GRAM STAIN >25 WHITE BLOOD CELLS/LPF 0 SQUAMOUS EPITHELIAL CELLS/LPF NO ORGANISMS SEEN CULTURE RESULTS RARE PSEUDOMONAS AERUGINOSA [ S = SUSCEPTIBLE R = RESISTANT I = INTERMEDIATE S-DO = Susceptible-dose dependent NS = Non-suscceptible NO = No Interpretation ] Organism: PSEUDOMONAS AERUGINOSA Antibiotic Interpretation ANDRE Status CEFEPIME S 2 F CIPROFLOXACIN S 0.5 F LEVOFLOXACIN S 0.25 F MEROPENEM S <=0.25 F TOBRAMYCIN S <=1 F PIPERACIL/TAZOBACTAM S <=4 F Susceptible [facility] Comment on above: Performed By: #### 5 97-5 #### [facility] ([id number]) [address], [address] [place] [address] COMPLETE BLOOD COUNTon 04-04 Erythrocyte distribution width (RBC) [Ratio] 16.6 % High 11.5-15.0 [facility] Comment on above: Performed By: #### C VAN CMP, 1987-09, 97702-6 #### [facility] ([id number]) [address], [address] [place] [address] Hematocrit (Bld) [Volume fraction] 37.5 % Normal 35-47 [facility] Comment on above: Performed By: #### C VAN CMP, 1987-09, 92772-4 #### [facility] ([id number]) [address], [address] [place] [address] Hemoglobin (Bld) [Mass/Vol] 12.7 g/dL Normal 11.7-15.5 [facility] Comment on above: Performed By: #### Jacqueline ARAUJO CMP, 1987-09, 79131-6 #### [facility] ([id number]) [address], [address] [place] [address] MCH (RBC) [Entitic mass] 31.6 pg Normal 27-34 [facility] Comment on above: Performed By: #### Jacqueline ARAUJO CMP, 1987-09, 40154-0 #### [facility] ([id number]) [address], [facility] [address] [place] [address] MCHC (RBC) [Mass/Vol] 33.8 g/dL Normal 32-36 [facility] Comment on above: Performed By: #### Jacqueline ARAUJO CMP, 1987-09, 40880-5 #### [facility] ([id number]) [address] [address] [place] [address] MCV (RBC) [Entitic vol] 94 fL Normal 80-100 [facility] Comment on above: Performed By: #### Jacqueline ARAUJO CMP, 1987-09, 23692-0 #### [facility] ([id number]) [address], [address] [place] [address] Platelet mean volume (Bld) [Entitic vol] 8.9 fL Normal 7-12 [facility] Comment on above: Performed By: #### Jacqueline ARAUJO CMP, 1987-09, 46538-6 #### [facility] ([id number]) [address], [address] [place] [address] Platelets (Bld) [#/Vol] 230 10*3/uL Normal 150-450 [facility] Comment on above: Performed By: #### Jacqueline ARAUJO CMP, 1987-09, 36186-9 #### [facility] ([id number]) [address], [address] [place] [address] RBC COUNT 4.01 X10E12/L Normal 3.80-5.20 [facility] Comment on above: Performed By: #### C ARANZA ARAUJO, 1987-09, 14659-4 #### [facility] ([id number]) [address] [address] WBC (Bld) [#/Vol] 9.1 10*3/uL Normal 4.0-11.0 [facility] Comment on above: Performed By: #### Jacqueline ARAUJO CMP, 1987-09, 06045-3 #### [facility] ([id number]) [address] [address] CREATININEon 04-04-2024 Creatinine [Mass/Vol] 0.60 mg/dL Normal 0.40-1.00 [facility] Comment on above: Result Comment: METH OD TRACEABLE TO IDMS STANDARD Performed By: #### C ARANZA ARAUJO, 1987-09, 74257-7 #### [facility] ([id number]) [address] [address] eGFR (CKD-EPI) NON-RACE DEPENDENT >90 Normal >59 [facility] Comment on above: Result Comment: Reported eGFR is based on the CKD-EPI 2020 equation that does not use a race coefficient. Performed By: #### Jacqueline ARAUJO CMP, 1987-09, 67578-9 #### [facility] ([id number]) [address] [address] COMPLETE BLOOD COUNTon 03-27 Erythrocyte distribution width (RBC) [Ratio] 17.2 % High 11.5-15.0 [facility] Comment on above: Performed By: #### Jacqueline ARAUJO CMP, 1987-09, 13330-5 #### [facility] ([id number]) [address], [address] [place] [address] Hematocrit (Bld) [Volume fraction] 40.0 % Normal 35-47 [facility] Comment on above: Performed By: #### Jacqueline ARAUJO CMP, 1987-09, 73277-6 #### [facility] ([id number]) [address], [address] [place] [address] Hemoglobin (Bld) [Mass/Vol] 13.5 g/dL Normal 11.7-15.5 [facility] Comment on above: Performed By: #### Jacqueline ARAUJO CMP, 1987-09, 17243-0 #### [facility] ([id number]) [address], [address] [place] [address] MCH (RBC) [Entitic mass] 31.7 pg Normal 27-34 [facility] Comment on above: Performed By: #### Jacqueline ARAUJO CMP, 1987-09, 50403-8 #### [facility] ([id number]) [address], [address] [place] [address] MCHC (RBC) [Mass/Vol] 33.7 g/dL Normal 32-36 [facility] Comment on above: Performed By: #### Jacqueline ARAUJO CMP, 1987-09, 56987-7 #### [facility] ([id number]) [address], [address] [place] [address] MCV (RBC) [Entitic vol] 94 fL Normal 80-100 [facility] Comment on above: Performed By: #### Jacqueline ARAUJO CMP, 90436-6 #### [facility] ([id number]) [address], [address] [place] [address] Platelet mean volume (Bld) [Entitic vol] 8.5 fL Normal 7-12 [facility] Comment on above: Performed By: #### Jacqueline ARAUJO CMP, 62152-3 #### [facility] ([id number]) [address], [address] [place] [address] Platelets (Bld) [#/Vol] 332 10*3/uL Normal 150-450 [facility] Comment on above: Performed By: #### C ARANZA ARAUJO, 1987-09, 93942-0 #### [facility] ([id number]) [address], [facility] [address] [place] [address] RBC COUNT 4.26 X10E12/L Normal 3.80-5.20 [facility] Comment on above: Performed By: #### Jacqueline ARAUJO CMP, 1987-09, 28432-2 #### [facility] ([id number]) [address], [facility] [address] [place] [address] WBC (Bld) [#/Vol] 10.4 10*3/uL Normal 4.0-11.0 [facility] Comment on above: Performed By: #### Jacqueline ARAUJO CMP, 1987-09, 24195-7 #### [facility] ([id number]) [address] [address] CREATININEon 03-27-2024 Creatinine [Mass/Vol] 0.69 mg/dL Normal 0.40-1.00 [facility] Comment on above: Result Comment: METH OD TRACEABLE TO IDMS STANDARD Performed By: #### Jacqueline ARAUJO CMP, 1987-09, 00672-0 #### [facility] ([id number]) [address], [address] [place] [address] eGFR (CKD-EPI) NON-RACE DEPENDENT >90 Normal >59 [facility] Comment on above: Result Comment: Reported eGFR is based on the CKD-EPI 2020 equation that does not use a race coefficient. Performed By: #### Jacqueline ARAUJO CMP, 1987-09, 08366-5 #### [facility] ([id number]) [address] [place] [address] COMPLETE BLOOD COUNTon 03-20 Erythrocyte distribution width (RBC) [Ratio] 19.0 % High 11.5-15.0 [facility] Comment on above: Performed By: #### C BC, PV DESIGN AND INSTALLATION TECHNICIAN #### [facility] ([id number]) [address], [address] [place] [address] Hematocrit (Bld) [Volume fraction] 37.9 % Normal 35-47 [facility] Comment on above: Performed By: #### C BC, PV DESIGN AND INSTALLATION TECHNICIAN #### [facility] ([id number]) [address], [address] [place] [address] Hemoglobin (Bld) [Mass/Vol] 12.6 g/dL Normal 11.7-15.5 [facility] Comment on above: Performed By: #### C KJ, PV DESIGN AND INSTALLATION TECHNICIAN #### [facility] ([id number]) [address], [address] [place] [address] MCH (RBC) [Entitic mass] 31.8 pg Normal 27-34 [facility] Comment on above: Performed By: #### C KJ, PV DESIGN AND INSTALLATION TECHNICIAN #### [facility] ([id number]) [address], [address] [place] [address] MCHC (RBC) [Mass/Vol] 33.2 g/dL Normal 32-36 [facility] Comment on above: Performed By: #### C BC, PV DESIGN AND INSTALLATION TECHNICIAN #### [facility] ([id number]) [address], [address] [place] [address] MCV (RBC) [Entitic vol] 96 fL Normal 80-100 [facility] Comment on above: Performed By: #### C BC, PV DESIGN AND INSTALLATION TECHNICIAN #### [facility] ([id number]) [address], [address] [place] [address] Platelet mean volume (Bld) [Entitic vol] 8.4 fL Normal 7-12 [facility] Comment on above: Performed By: #### C BC, PV DESIGN AND INSTALLATION TECHNICIAN #### [facility] ([id number]) [address] [address] Platelets (Bld) [#/Vol] 343 10*3/uL Normal 150-450 [facility] Comment on above: Performed By: #### C KJ, PV DESIGN AND INSTALLATION TECHNICIAN #### [facility] ([id number]) [address] [address] RBC COUNT 3.95 X10E12/L Normal 3.80-5.20 [facility] Comment on above: Performed By: #### C KJ, PV DESIGN AND INSTALLATION TECHNICIAN #### [facility] ([id number]) [address] [address] WBC (Bld) [#/Vol] 7.6 10*3/uL Normal 4.0-11.0 [facility] Comment on above: Performed By: #### C KJ, PV DESIGN AND INSTALLATION TECHNICIAN #### [facility] ([id number]) [address] [address] CREATININEon 03-20-2024 Creatinine [Mass/Vol] 0.70 mg/dL Normal 0.40-1.00 [facility] Comment on above: Result Comment: METH OD TRACEABLE TO IDMS STANDARD Performed By: #### C KJ, PV DESIGN AND INSTALLATION TECHNICIAN #### [facility] ([id number]) [address] [address] eGFR (CKD-EPI) NON-RACE DEPENDENT >90 Normal >59 [facility] Comment on above: Result Comment: Reported eGFR is based on the CKD-EPI 2020 equation that does not use a race coefficient. Performed By: #### C KJ, PV DESIGN AND INSTALLATION TECHNICIAN #### [facility] ([id number]) [address] [address] CBC AND AUTO DIFFon 03-16-20 24 ABSOLUTE BASOPHIL 0.0 X10E9/L Normal 0.0-0.2 [facility] Comment on above: Performed By: #### Jacqueline ARAUJO CMP, 1987-09 #### [facility] ([id number]) [address], [address] [place] [address] ABSOLUTE NEUTROPHIL 5.5 X10E9/L Normal 1.5-6.6 [facility] Comment on above: Performed By: #### Jacqueline ARAUJO CMP, 1987-09 #### [facility] ([id number]) [address], [address] [place] [address] Basophils/100 WBC (Bld) 0.4 % Normal [facility] Comment on above: Performed By: #### Jacqueline ARAUJO CMP, 1987-09 #### [facility] ([id number]) [address], [address] [place] [address] Eosinophils (Bld) [#/Vol] 0.1 10*3/uL Normal 0.0-0.4 [facility] Comment on above: Performed By: #### Jacqueline ARAUJO [facility], 1987-09 #### [facility] ([id number]) [address], [address] [place] [address] Eosinophils/100 WBC (Bld) 1.9 % Normal [facility] Comment on above: Performed By: #### Jacqueline ARAUJO CMP, 1987-09 #### [facility] ([id number]) [address], [address] [place] [address] Erythrocyte distribution width (RBC) [Ratio] 18.1 % High 11.5-15.0 [facility] Comment on above: Performed By: #### Jacqueline ARAUJO CMP, 1987-09 #### [facility] ([id number]) [address], [address] [place] [address] Hematocrit (Bld) [Volume fraction] 39.2 % Normal 35-47 [facility] Comment on above: Performed By: #### Jacqueline ARAUJO CMP, 1987-09 #### [facility] ([id number]) [address], [address] [place] [address] Hemoglobin (Bld) [Mass/Vol] 13.4 g/dL Normal 11.7-15.5 [facility] Comment on above: Performed By: #### Jacqueline ARAUJO [facility], 1987-09 #### [facility] ([id number]) [address], [facility] [address] [place] [address] Lymphocytes (Bld) [#/Vol] 1.7 10*3/uL Normal 1.0-3.5 [facility] Comment on above: Performed By: #### Jacqueline ARAUJO CMP, 1987-09 #### [facility] ([id number]) [address], [facility] [address] [place] [address] Lymphocytes/100 WBC (Bld) 22.1 % Normal [facility] Comment on above: Performed By: #### Jacqueline ARAUJO CMP, 1987-09 #### [facility] ([id number]) [address], [address] [place] [address] MCH (RBC) [Entitic mass] 32.2 pg Normal 27-34 [facility] Comment on above: Performed By: #### Jacqueline ARAUJO [facility], 1987-09 #### [facility] ([id number]) [address], [facility] [address] [place] [address] MCHC (RBC) [Mass/Vol] 34.2 g/dL Normal 32-36 [facility] Comment on above: Performed By: #### Jacqueline ARAUJO CMP, 1987-09 #### [facility] ([id number]) [address] [address] [place] [address] MCV (RBC) [Entitic vol] 94 fL Normal 80-100 [facility] Comment on above: Performed By: #### Jacqueline ARAUJO CMP, 1987-09 #### [facility] ([id number]) [address], [address] [place] [address] Monocytes (Bld) [#/Vol] 0.5 10*3/uL Normal 0-0.9 [facility] Comment on above: Performed By: #### Jacqueline ARAUJO CMP, 1987-09 #### [facility] ([id number]) [address], [address] [place] [address] Monocytes/100 WBC (Bld) 6.5 % Normal [facility] Comment on above: Performed By: #### Jacqueline ARAUJO CMP, 1987-09 #### [facility] ([id number]) [address], [address] [place] [address] Neutrophils/100 WBC (Bld) 69.1 % Normal [facility] Comment on above: Performed By: #### Jacqueline ARAUJO CMP, 1987-09 #### [facility] ([id number]) [address], [address] [place] [address] Platelet mean volume (Bld) [Entitic vol] 8.1 fL Normal 7-12 [facility] Comment on above: Performed By: #### Jacqueline ARAUJO CMP, 1987-09 #### [facility] ([id number]) [address], [address] [place] [address] Platelets (Bld) [#/Vol] 358 10*3/uL Normal 150-450 [facility] Comment on above: Performed By: #### Jacqueline ARAUJO CMP, 1987-09 #### [facility] ([id number]) [address], [address] [place] [address] RBC COUNT 4.17 X10E12/L Normal 3.80-5.20 [facility] Comment on above: Performed By: #### Jacqueline ARAUJO CMP, 1987-09 #### [facility] ([id number]) [address], [address] [place] [address] WBC (Bld) [#/Vol] 7.9 10*3/uL Normal 4.0-11.0 [facility] Comment on above: Performed By: #### C VAN CMP, 1987-09 #### [facility] ([id number]) [address], [address] [place] [address] COMPREHENSIVE METABOLIC PANE Alexandru 03-16-2024 Albumin [Mass/Vol] 3.4 g/dL Normal 3.2-5.3 [facility] Comment on above: Performed By: #### C VAN CMP, 1987-09 #### [facility] ([id number]) [address], [address] [place] [address] ALP [Catalytic activity/Vol] 52 U/L Normal 39-130 [facility] Comment on above: Performed By: #### Jacqueline ARAUJO CMP, 1987-09 #### [facility] ([id number]) [address], [address] [place] [address] ALT [Catalytic activity/Vol] 12 U/L Normal 0-31 [facility] Comment on above: Performed By: #### Jacqueline ARAUJO CMP, 1987-09 #### [facility] ([id number]) [address], [address] [place] [address] Anion gap [Moles/Vol] 11 mmol/L Normal 5-15 [facility] Comment on above: Performed By: #### Jacqueline ARAUJO CMP, 1987-09 #### [facility] ([id number]) [address], [address] [place] [address] AST [Catalytic activity/Vol] 17 U/L Normal 0-41 [facility] Comment on above: Performed By: #### C BCA CMP, 1987-09 #### [facility] ([id number]) [address], [address] [place] [address] Bilirubin [Mass/Vol] 0.4 mg/dL Normal 0.3-1.2 [facility] Comment on above: Performed By: #### C BCA CMP, 1987-09 #### [facility] ([id number]) [address], [address] [place] [address] Calcium [Mass/Vol] 9.7 mg/dL Normal 8.5-10.5 [facility] Comment on above: Performed By: #### Jacqueline ARAUJO CMP, 1987-09 #### [facility] ([id number]) [address] [address] [place] [address] Chloride [Moles/Vol] 109 mmol/L Normal 98-109 [facility] Comment on above: Performed By: #### Jacqueline ARAUJO CMP, 1987-09 #### [facility] ([id number]) [address] [address] [place] [address] CO2 [Moles/Vol] 20 mmol/L Low 22-32 [facility] Comment on above: Performed By: #### Jacqueline ARAUJO CMP, 1987-09 #### [facility] ([id number]) [address] [address] [place] [address] Creatinine [Mass/Vol] 0.75 mg/dL Normal 0.40-1.00 [facility] Comment on above: Result Comment: METH OD TRACEABLE TO IDMS STANDARD Performed By: #### Jacqueline ARAUJO CMP, 1987-09 #### [facility] ([id number]) [address] [address] [place] [address] eGFR (CKD-EPI) NON-RACE DEPENDENT >90 Normal >59 [facility] Comment on above: Result Comment: Reported eGFR is based on the CKD-EPI 2020 equation that does not use a race coefficient. Performed By: #### Jacqueline ARAUJO CMP, 1987-09 #### [facility] ([id number]) [address] [address] [place] [address] Glucose [Mass/Vol] 88 mg/dL Normal 65-99 [facility] Comment on above: Performed By: #### Jacqueline ARAUJO CMP, 1987-09 #### [facility] ([id number]) [address] [address] [place] [address] Potassium [Moles/Vol] 3.9 mmol/L Normal 3.5-5.0 [facility] Comment on above: Performed By: #### Jacqueline ARAUJO [facility], 1987-09 #### [facility] ([id number]) [address], [address] [place] [address] Protein [Mass/Vol] 6.4 g/dL Normal 6.0-8.0 [facility] Comment on above: Performed By: #### Jacqueline ARAUJO [facility], 1987-09 #### [facility] ([id number]) [address], [address] [place] [address] Sodium [Moles/Vol] 140 mmol/L Normal 134-146 [facility] Comment on above: Performed By: #### Jacqueline ARAUJO CMP, 1987-09 #### [facility] ([id number]) [address], [address] [place] [address] Urea nitrogen [Mass/Vol] 9 mg/dL Normal 5-23 [facility] Comment on above: Performed By: #### Jacqueline ARAUJO [facility], 1987-09 #### [facility] ([id number]) [address], [address] [place] [address] CRP [Mass/Vol]on 03-16-2024 C REACTIVE PROTEIN 0.6 mg/dL Normal 0.000-0.744 [facility] Comment on above: Performed By: #### Jacqueline ARAUJO [facility], 1987-09 #### [facility] ([id number]) [address], [address] [place] [address] BLOOD CULTUREon 03-13-2024 Bacteria identified Aer cx Nom (Bld) CULTURE RESULTS NO GROWTH 5 DAYS Normal [facility] Bacteria identified Aer cx Nom (Bld) CULTURE RESULTS NO GROWTH 5 DAYS Normal [facility] CBC AND AUTO DIFFon 03-13-20 ABSOLUTE BASOPHIL 0.0 X10E9/L Normal 0.0-0.2 [facility] Comment on above: Performed By: #### Jacqueline ARAUJO [facility], 1987-09, 53879-8 #### [facility] ([id number]) [address], [address] [place] [address] ABSOLUTE NEUTROPHIL 5.4 X10E9/L Normal 1.5-6.6 [facility] Comment on above: Performed By: #### Jacqueline ARAUJO [facility], 1987-09, 95086-2 #### [facility] ([id number]) [address], [address] [place] [address] Basophils/100 WBC (Bld) 0.4 % Normal [facility] Comment on above: Performed By: #### Jacqueline ARAUJO [facility], 1987-09, 60842-5 #### [facility] ([id number]) [address], [address] [place] [address] Eosinophils (Bld) [#/Vol] 0.1 10*3/uL Normal 0.0-0.4 [facility] Comment on above: Performed By: #### Jacqueline ARAUJO [facility], 1987-09, 28151-7 #### [facility] ([id number]) [address], [address] [place] [address] Eosinophils/100 WBC (Bld) 1.6 % Normal [facility] Comment on above: Performed By: #### Jacqueline ARAUJO [facility], 1987-09, 54682-1 #### [facility] ([id number]) [address], [address] [place] [address] Erythrocyte distribution width (RBC) [Ratio] 18.4 % High 11.5-15.0 [facility] Comment on above: Performed By: #### Jacqueline ARAUJO [facility], 1987-09, 02650-1 #### [facility] ([id number]) [address], [address] [place] [address] Hematocrit (Bld) [Volume fraction] 39.0 % Normal 35-47 [facility] Comment on above: Performed By: #### Jacqueline ARAUJO [facility], 1987-09, 36859-3 #### [facility] ([id number]) [address], [address] [place] [address] Hemoglobin (Bld) [Mass/Vol] 13.7 g/dL Normal 11.7-15.5 [facility] Comment on above: Performed By: #### Jacqueline ARAUJO [facility], 1987-09, 96318-5 #### [facility] ([id number]) [address], [facility] [address] [place] [address] Lymphocytes (Bld) [#/Vol] 1.9 10*3/uL Normal 1.0-3.5 [facility] Comment on above: Performed By: #### Jacqueline ARAUJO [facility], 55032-7 #### [facility] ([id number]) [address], [address] [place] [address] Lymphocytes/100 WBC (Bld) 24.0 % Normal [facility] Comment on above: Performed By: #### Jacqueline ARAUJO [facility], 47490-8 #### [facility] ([id number]) [address], [address] [place] [address] MCH (RBC) [Entitic mass] 32.5 pg Normal 27-34 [facility] Comment on above: Performed By: #### Jacqueline ARAUJO [facility], 63381-7 #### [facility] ([id number]) [address], [address] [place] [address] MCHC (RBC) [Mass/Vol] 35.0 g/dL Normal 32-36 [facility] Comment on above: Performed By: #### Jacqueline ARAUJO [facility], 1987-09, 60370-8 #### [facility] ([id number]) [address], [facility] [address] [place] [address] MCV (RBC) [Entitic vol] 93 fL Normal 80-100 [facility] Comment on above: Performed By: #### Jacqueline ARAUJO [facility], 1987-09, 17521-8 #### [facility] ([id number]) [address], [address] [place] [address] Monocytes (Bld) [#/Vol] 0.4 10*3/uL Normal 0-0.9 [facility] Comment on above: Performed By: #### Jacqueline ARAUJO [facility], 1987-09, 16759-9 #### [facility] ([id number]) [address], [facility] [address] [place] [address] Monocytes/100 WBC (Bld) 4.7 % Normal [facility] Comment on above: Performed By: #### Jacqueline ARAUJO [facility], 1987-09, 18813-8 #### [facility] ([id number]) [address], [address] [place] [address] Neutrophils/100 WBC (Bld) 69.3 % Normal [facility] Comment on above: Performed By: #### Jacqueline ARAUJO [facility], 1987-09, 52930-5 #### [facility] ([id number]) [address], [address] [place] [address] Platelet mean volume (Bld) [Entitic vol] 7.9 fL Normal 7-12 [facility] Comment on above: Performed By: #### Jacqueline ARAUJO [facility], 1987-09, 50353-7 #### [facility] ([id number]) [address], [address] [place] [address] Platelets (Bld) [#/Vol] 376 10*3/uL Normal 150-450 [facility] Comment on above: Performed By: #### Jacqueline ARAUJO [facility], 1987-09, 21929-4 #### [facility] ([id number]) [address], [address] [place] [address] RBC COUNT 4.20 X10E12/L Normal 3.80-5.20 [facility] Comment on above: Performed By: #### C VAN CMP, 1987-09, 19474-1 #### [facility] ([id number]) [address], [address] [place] [address] WBC (Bld) [#/Vol] 7.8 10*3/uL Normal 4.0-11.0 [facility] Comment on above: Performed By: #### C VAN CMP, 1987-09, 57843-4 #### [facility] ([id number]) [address], [address] [place] [address] COMPREHENSIVE METABOLIC PANE Alexandru 03-13-2024 Albumin [Mass/Vol] 3.4 g/dL Normal 3.2-5.3 [facility] Comment on above: Performed By: #### C VAN CMP, 1987-09, 55500-2 #### [facility] ([id number]) [address], [address] [place] [address] ALP [Catalytic activity/Vol] 57 U/L Normal 39-130 [facility] Comment on above: Performed By: #### Jacqueline BCA, CMP, 1987-09, 48959-9 #### [facility] ([id number]) [address], [address] [place] [address] ALT [Catalytic activity/Vol] 14 U/L Normal 0-31 [facility] Comment on above: Performed By: #### C BCA, CMP, 1987-09, 71468-9 #### [facility] ([id number]) [address], [address] [place] [address] Anion gap [Moles/Vol] 8 mmol/L Normal 5-15 [facility] Comment on above: Performed By: #### C BCA CMP, 1987-09, 72032-6 #### [facility] ([id number]) [address], [address] [place] [address] AST [Catalytic activity/Vol] 19 U/L Normal 0-41 [facility] Comment on above: Performed By: #### C VAN, [facility], 1987-09, 87205-9 #### [facility] ([id number]) [address], [address] [place] [address] Bilirubin [Mass/Vol] 0.4 mg/dL Normal 0.3-1.2 [facility] Comment on above: Performed By: #### C VAN, [facility], 75417-8 #### [facility] ([id number]) [address], [address] [place] [address] Calcium [Mass/Vol] 9.3 mg/dL Normal 8.5-10.5 [facility] Comment on above: Performed By: #### C VAN, [facility], 93069-4 #### [facility] ([id number]) [address], [address] [place] [address] Chloride [Moles/Vol] 105 mmol/L Normal 98-109 [facility] Comment on above: Performed By: #### C BCA, [facility], 07141-3 #### [facility] ([id number]) [address], [address] [place] [address] CO2 [Moles/Vol] 28 mmol/L Normal 22-32 [facility] Comment on above: Performed By: #### C BCA, [facility], 64262-8 #### [facility] ([id number]) [address], [address] [place] [address] Creatinine [Mass/Vol] 0.82 mg/dL Normal 0.40-1.00 [facility] Comment on above: Result Comment: METH OD TRACEABLE TO IDMS STANDARD Performed By: #### C BCA, CMP, 99221-2 #### [facility] ([id number]) [address], [address] [place] [address] GFR/1.73 sq M.predicted among non-blacks MDRD (S/P/Bld) [Vol rate/Area] 84 mL/min/{1.73_m2} Normal >59 [facility] Comment on above: Result Comment: Reported eGFR is based on the CKD-EPI 2020 equation that does not use a race coefficient. Performed By: #### C VAN [facility], 1987-09, 16161-9 #### [facility] ([id number]) [address], [address] [place] [address] Glucose [Mass/Vol] 97 mg/dL Normal 65-99 [facility] Comment on above: Performed By: #### C VAN [facility], 61122-1 #### [facility] ([id number]) [address] [place] [address] Potassium [Moles/Vol] 3.1 mmol/L Low 3.5-5.0 [facility] Comment on above: Performed By: #### C VAN [facility], 94421-1 #### [facility] ([id number]) [address], [address] [place] [address] Protein [Mass/Vol] 6.3 g/dL Normal 6.0-8.0 [facility] Comment on above: Performed By: #### C VAN [facility], 79047-1 #### [facility] ([id number]) [address] [place] [address] Sodium [Moles/Vol] 141 mmol/L Normal 134-146 [facility] Comment on above: Performed By: #### C VAN [facility], 67887-8 #### [facility] ([id number]) [address], [address] [place] [address] Urea nitrogen [Mass/Vol] 8 mg/dL Normal - [facility] Comment on above: Performed By: #### C VAN [facility], 1987-09, 73044-4 #### [facility] ([id number]) [address], [address] [place] [address] CRP [Mass/Vol]on 03-13-2024 C REACTIVE PROTEIN 0.7 mg/dL Normal 0.000-0.744 [facility] Comment on above: Performed By: #### Jacqueline ARAUJO [facility], 1987-09, 61537-3 #### [facility] ([id number]) [address], [address] [place] [address] ESR Photometric method (Bld) [Velocity]on 03-13-2024 ESR, ERYTHROCYTE SEDIMENTATION RATE 39 mm/h High 0-30 [facility] Comment on above: Performed By: #### Jacqueline ARAUJO [facility], 1987-09, 73046-1 #### [facility] ([id number]) [address], [address] [place] [address] ASPIRATE CULTUREon Bacteria identified Aer cx Nom (Asp) GRAM STAIN 10 to 24 WHITE BLOOD CELLS/LPF 1 to 9 SQUAMOUS EPITHELIAL CELLS/LPF NO ORGANISMS SEEN CULTURE RESULTS RARE PSEUDOMONAS AERUGINOSA [ S = SUSCEPTIBLE R = RESISTANT I = INTERMEDIATE S-DO = Susceptible-dose dependent NS = Non-suscceptible NO = No Interpretation ] Organism: PSEUDOMONAS AERUGINOSA Antibiotic Interpretation ANDRE Status CEFEPIME S 2 F CIPROFLOXACIN S <=0.25 F LEVOFLOXACIN S 0.5 F MEROPENEM S <=0.25 F TOBRAMYCIN S <=1 F PIPERACIL/TAZOBACTAM S <=4 F Susceptible [facility] Comment on above: Performed By: #### 5 97-5 #### [facility] ([id number]) [address], [address] [place] [address] AND DIFFon 2023 BODY FLUID COMMENT Interpreta tion--- ----- Normal [facility] Comment on above: Result Comment: Refe rence values for this fluid type are undefined, as fluid accumulation is considered abnormal. Performed By: #### B FCT #### [facility] ([id number]) [address] [place] [address] FLUID CLARITY CLOUDY Normal [facility] Comment on above: Performed By: #### B FCT #### [facility] ([id number]) [address] [place] [address] FLUID COLOR HONG Normal [facility] Comment on above: Performed By: #### B FCT #### [facility] ([id number]) [address] [place] [address] FLUID LYMPHOCYTE 5 % Normal [facility] Comment on above: Performed By: #### B FCT #### [facility] ([id number]) [address] [place] [address] FLUID NEUTROPHILS 75 % Normal [facility] Comment on above: Performed By: #### B FCT #### [facility] ([id number]) [address] [place] [address] [place] [address] /uL Normal [facility] Comment on above: Performed By: #### B FCT #### [facility] ([id number]) [address] [place] [address] FLUID SPECIMEN TYPE ASPIRATE Normal [facility] Comment on above: Result Comment: ABDO MISAEL PUMP POCKET Performed By: #### B FCT #### [facility] ([id number]) [address] [place] [address] MACROPHAGES 20 % Normal [facility] Comment on above: Performed By: #### B FCT #### [facility] ([id number]) [address] [facility] [place] [address] 4888 /uL Normal [facility] Comment on above: Performed By: #### B FCT #### [facility] ([id number]) [address] [facility], [address] [place] [address] Infectious Disease Office/Cl inic Noteon 11-10-2023 Infectious Disease Office/Clinic Note Assessment/Plan 1. Postoperative wound infection Plan: Unfortunately there is no other good oral options for coverage of Pseudomonas. She is advised to stop taking doxycycline as this will help her symptoms. I did call Dr. Montes his PA Hammad called back. She advised me to send patient back to [facility]. This is where she had her surgery done. She may need to MRI possible washout. This service writer did call [facility] talk to charge nurse Dagmar gave her [...] and fusion by Dr. Saint Gregory at [facility]. She was discharged home on the . She was discharged on cephalexin for 10 days. She was taken back to surgery on October 11 due to persistent drainage and wound dehiscence. She had a fluid collection which was most consistent with seroma/infection . [place]. Cultures grew Pseudomonas and she was discharged [...] data Procedure/Surgical History Neck Surgery Stomach Pain [facility] [facility] (09/02/2023) incision & drainage (10/12/2023) Medications cyclobenzaprine 10 mg oral tablet, 45 EA, 0 Refill(s), TAKE 1 TABLET BY MOUTH THREE TIMES DAILY NEEDED FOR MUSCLE SPASMS DULoxetine 60 mg oral delayed release capsule, 90 EA, 0 Refill(s), TAKE 1 CAPSULE BY MOUTH EVERY DAY ibuprofen 800 mg oral tablet, 270 EA, 0 Refill(s) Potassium Chloride ( (more content not included)... Normal [facility] .eGFRon 10-26-2023 GFR/1.73 sq M.predicted MDRD (S/P/Bld) [Vol rate/Area] mL/min/{1.73_m2} Normal >=60 [facility] Comment on above: Order Comment: Order added by Discern rule Result Comment: [facility] have implemented the eGFR calculation approach [...] years Performed By: #### E GFR #### [address] [address] Basic Metabolic Profileon Anion gap [Moles/Vol] 10 mmol/L Normal 4-12 [facility] Comment on above: Performed By: #### C [id number] #### [address] [address] Calcium [Mass/Vol] 9.4 mg/dL Normal 8.5-10.3 [facility] Comment on above: Performed By: #### C [id number] #### [address] [address] Chloride [Moles/Vol] 101 mmol/L Normal 98-110 [facility] Comment on above: Performed By: #### C [id number] #### [address] [address] CO2 [Moles/Vol] 26 mmol/L Normal 22-32 [facility] Comment on above: Performed By: #### C [id number] #### [address] [address] Creatinine [Mass/Vol] 0.81 mg/dL Normal 0.44-1.03 [facility] Comment on above: Performed By: #### C [id number] #### [address] [address] Glucose [Mass/Vol] 82 mg/dL Normal 70-99 [facility] Comment on above: Performed By: #### C [id number] #### [address] [address] Potassium [Moles/Vol] 2.7 mmol/L Low 3.4-4.8 [facility] Comment on above: Performed By: #### C [id number] #### [address] [address] Sodium [Moles/Vol] 137 mmol/L Normal 133-142 [facility] Comment on above: Performed By: #### C [id number] #### [address] [address] Urea nitrogen [Mass/Vol] 15 mg/dL Normal 8-26 [facility] Comment on above: Performed By: #### C [id number] #### [place] [id number] Urea nitrogen/Creatinin e [Mass ratio] 18.5 mg/mg Normal 10.0-20.0 [facility] Comment on above: Performed By: #### C [id number] #### [place] [id number] CBC w/ Diffon 10-26-2023 Erythrocyte distribution width (RBC) [Ratio] 15.2 % High 11.6-14.8 [facility] Comment on above: Performed By: #### C BC #### [place] [id number] Hematocrit (Bld) [Volume fraction] 38.9 % Normal 36.0-46.0 [facility] Comment on above: Performed By: #### C BC #### [place] [id number] Hemoglobin (Bld) [Mass/Vol] 12.9 g/dL Normal 12.0-16.0 [facility] Comment on above: Performed By: #### C BC #### [address] [address] MCH (RBC) [Entitic mass] 31.5 pg Normal 27.0-35.0 [facility] Comment on above: Performed By: #### C BC #### [place] [id number] MCHC 33.1 % Normal 31.0-37.0 [facility] Comment on above: Performed By: #### C BC #### [address] [address] MCV (RBC) [Entitic vol] 95.0 fL Normal 80.0-100.0 [facility] Comment on above: Performed By: #### C BC #### [place] [id number] Platelet 367 x10*3/mcL Normal 150-450 [facility] Comment on above: Performed By: #### C BC #### [address] [address] Platelet mean volume (Bld) [Entitic vol] 7.7 fL Normal 6.7-10.6 [facility] Comment on above: Performed By: #### C BC #### [address] [address] RBC 4.10 x10*6/mcL Normal 3.80-5.20 [facility] Comment on above: Performed By: #### C BC #### [address] [address] WBC 12.3 x10*3/mcL High 4.5-11.0 [facility] Comment on above: Performed By: #### C BC #### [address] [address] CRPon 10-26-2023 CRP 2.71 mg/dL High 0.00-0.75 [facility] Comment on above: Result Comment: CRP measurement is useful for assessment of non-specific INFLAMMATORY RESPONSE to infection or injury AND is a sensitive MARKER of ACUTE INFLAMMATION including CARDIAC RISK ASSESSMENT. CARDIAC patients with elevated CRP are POTENTIALLY at a HIGHER RISK OF FUTURE CARDIAC EVENTS. Performed By: #### C RP #### [address] [address] Diff Autoon 10-26-2023 Baso Absolute 0.1 x10*3/mcL Normal 0.0-0.2 [facility] Comment on above: Performed By: #### . Automated Diff #### [address] [address] Basophils/100 WBC (Bld) 0.5 % Normal 0.0-1.5 [facility] Comment on above: Performed By: #### . Automated Diff #### [address] [address] Eos Absolute 0.3 x10*3/mcL Normal 0.0-0.4 [facility] Comment on above: Performed By: #### . Automated Diff #### [address] [address] Eosinophils/100 WBC (Bld) 2.1 % Normal 0.0-5.4 [facility] Comment on above: Performed By: #### . Automated Diff #### [address] [address] Lymph Absolute 2.2 x10*3/mcL Normal 1.0-4.8 [facility] Comment on above: Performed By: #### . Automated Diff #### [address] [id number] Lymphocytes/100 WBC (Bld) 18.0 % Low 27.2-40.8 [facility] Comment on above: Performed By: #### . Automated Diff #### [address] [address] [place] Absolute 0.6 x10*3/mcL Normal 0.1-1.1 [facility] Comment on above: Performed By: #### . Automated Diff #### [address] [address] Monocytes/100 WBC (Bld) 4.9 % Normal 3.7-11.9 [facility] Comment on above: Performed By: #### . Automated Diff #### [address] [address] Neutro Absolute 9.2 x10*3/mcL High 1.8-7.7 [facility] Comment on above: Performed By: #### . Automated Diff #### [address] [address] Neutro Auto 74.5 % High 47.2-70.8 [facility] Comment on above: Performed By: #### . Automated Diff #### [address] [address] ESRon 10-26-2023 Sed Rate 67 mm/hr High 0-30 [facility] Comment on above: Performed By: #### E SR #### [address] [place] [address] Infectious Disease Office/Cl inic Noteon 10-26-2023 Infectious [...] tabs, 0 Refill(s), 11/09/23 10:12:00 EDT, Pharmacy: [facility] #[id number] Basic Metabolic Profile C-Reactive Protein Complete Blood Count w/ Differential Erythrocyte Sedimentation Rate 2. Pseudomonas infection As above Ordered: levoFLOXacin, 1 tabs, Oral, q24hr, X 14 days, # 14 tabs, 0 Refill(s), 11/09/23 10:12:00 EDT, Pharmacy: [facility] #[id number] Basic Metabolic Profile C-Reactive Protein Complete Blood Count w/ Differential Erythrocyte Sedimentation Rate Chief Complaint New pt I&D done at [facility], possible infection of back. History of Present Illness Seen today for persistent drainage after back surgery on September 01. She had L3-L4 decompression and fusion by Dr. Saint Gregory at [facility]. She was discharged home on the . She was discharged on cephalexin for 10 days. She was taken back to surgery on October 11 due to persistent drainage and wound dehiscence. She had a fluid collection which was most consistent with seroma/infection . The surgery [place] done in [place]. Cultures grew Pseudomonas and she was discharged on Cipro. She could not tolerate it and stopped it after 3 days. After the 10 days of cephalexin initially, she received cephalexin September 27 from [facility]. She apparently got doxycycline [...] data Procedure/Surgical History Neck Surgery Stomach Pain [facility] (09/02/2023) incision & drainage (10/12/2023) Medications [...] SARS-CoV-2 (COVID-19 (more content not included)... Normal [facility] Provider Letteron 10-26-2023 Provider Letter (Inserted Image. Shelly ble to display) Tejas Richardson DO [address] [place] [address] Re: Radha Duncan Date of Visit: 10/26/[address] Richardson, Thank you for your referral to my office. Attached you will find the most recent office visit note. Please call if you have any questions or concerns. Sincerely, Pavel Rodriges MD [address] [place] [address], [address] [place] [address] The following document(s) were included in the letter: October 26, 2023 10:13:55 EDT - (10/26/2023) Infectious Disease Office Visit Note Normal [facility] ELECTROLYTESon 08-22-2023 Anion gap [Moles/Vol] 8 mmol/L Normal 5-15 [facility] Comment on above: Performed By: #### E LEC #### [facility] ([id number]) [address] [place] [address] Chloride [Moles/Vol] 110 mmol/L High 98-109 [facility] Comment on above: Performed By: #### E LEC #### [facility] ([id number]) [address] [place], [place] [address], [place] [address] CO2 [Moles/Vol] 23 mmol/L Normal 22-32 [facility] Comment on above: Performed By: #### E LEC #### [facility] ([id number]) [address], [address] [place] [address] Potassium [Moles/Vol] 4.4 mmol/L Normal 3.5-5.0 [facility] Comment on above: Performed By: #### E LEC #### [facility] ([id number]) [address], [address] [place] [address] Sodium [Moles/Vol] 141 mmol/L Normal 134-146 [facility] Comment on above: Performed By: #### E LEC #### [facility] ([id number]) [address] [place] [address] CARDIAC AZAR ADMITon 020 CK [Catalytic activity/Vol] 915 U/L Critically high 30-135 [facility] Comment on above: Result Comment: Test repeated. Critical value verified. Performed By: #### D JUNED #### [facility] [address] [place], [place] [address] Christian Degroot CK.MB [Mass/Vol] 12.82 ng/mL Critically high <=2.37 [facility] Comment on above: Result Comment: Test repeated. Critical value verified. Performed By: #### D RUGRPD #### [facility] [address] [place], [place] [address] Christian Degroot INR Coag (Bld) [Relative time] SEE BELOW Normal [facility] Comment on above: Result Comment: <0.0 34 ng/ml NEGATIVE 0.034-0.119 INDETERMINATE 0.120 AMI CUT OFF Performed By: #### D RUGRPD #### [facility] [address] [place] [address] Christian Mikayla ÁNGEL 96.0 ng/mL Critically high <=61.5 [facility] Comment on above: Performed By: #### D RUGLANDYD #### [facility] [address] [place], [place] [address] Christian Mikayla TROP 0.028 ng/mL Normal <=0.034 [facility] Comment on above: Performed By: #### D JUNED #### [facility] [address] [place], [place] [address] Christian Mikayla CK [Catalytic activity/Vol] 1282 U/L Critically high 30-135 [facility] Comment on above: Result Comment: Test repeated. Critical value verified. Performed By: #### T ROP, CMP #### [facility] [address] [place] [address] Christian Mikayla CK.MB [Mass/Vol] 24.63 ng/mL Critically high <=2.37 Th e [facility] Comment on above: Result Comment: Test repeated. Critical value verified. Performed By: #### T ROP, CMP #### [facility] [address] [place] [address] Christian Mikayla INR Coag (Bld) [Relative time] SEE BELOW Normal [facility] Comment on above: Result Comment: <0.0 34 ng/ml NEGATIVE 0.034-0.119 INDETERMINATE 0.120 AMI CUT OFF Performed By: #### T ROP, CMP #### [facility] [address] [place] [address] Christian Mikayla ÁNGEL 235.0 ng/mL Critically high <=61.5 [facility] Comment on above: Performed By: #### T ROP, CMP #### [facility] [address] [place] [address] Christian Mikayla TROP 0.033 ng/mL Normal <=0.034 [facility] Comment on above: Performed By: #### T ROP, CMP #### [facility] [address] [place], [place] [address] Christian Mikayla CBC AUTO DIFFon 03-07-2020 Basophils (Bld) [#/Vol] 0.0 103/ul Normal 0.0-0.1 [facility] Comment on above: Performed By: #### C BC #### [facility] [address] [place], [place] [address] Christian Mikayla Basophils/100 WBC (Bld) 0.1 % Critically low 0.2-2.0 [facility] Comment on above: Performed By: #### C BC #### [facility] [address] [place], [place] [address] Christian Mikayla Eosinophils (Bld) [#/Vol] 0.0 103/ul Normal 0.0-0.7 [facility] Comment on above: Performed By: #### C BC #### [facility] [address] [place], [place] [address] Christian Mikayla Eosinophils/100 WBC (Bld) 0.0 % Critically low 0.9-7.0 [facility] Comment on above: Performed By: #### C BC #### [facility] [address] [place], [place] [address] Christian Mikayla Erythrocyte distribution width (RBC) [Ratio] 13.4 % Normal 11.0-15.0 [facility] Comment on above: Performed By: #### C BC #### [facility] [address] [place], [place] [address] Christian Mikayla Hematocrit (Bld) [Volume fraction] 35.4 % Critically low 36.0-48.0 [facility] Comment on above: Performed By: #### C BC #### [facility] [address] [place], [place] [address] Christian Mikayla Hemoglobin (Bld) [Mass/Vol] 11.4 g/dL Critically low 12.0-16.0 [facility] Comment on above: Performed By: #### C BC #### [facility] [address] [place], [place] [address] Christian Mikayla IG # 0.07 10e3/ul Critically high 0.00-0.03 [facility] Comment on above: Performed By: #### C BC #### [facility] [address] [place], [place] [address] Christian Mikayla IG % 0.4 % Normal 0.0-0.5 [facility] Comment on above: Performed By: #### C BC #### [facility] [address] [place], [place] [address] Christian Mikayla Lymphocytes (Bld) [#/Vol] 1.1 103/ul Critically low 1.2-3.8 [facility] Comment on above: Performed By: #### C BC #### [facility] [address] [place] [address] Christian Mikayla Lymphocytes/100 WBC (Bld) 6.9 % Critically low 20.5-60.0 [facility] Comment on above: Performed By: #### C BC #### [facility] [address] [place] [address] Christianvíctor Degroot MANUAL DIFF REQ NO Normal [facility] Comment on above: Performed By: #### C BC #### [facility] [address] [place], [place] [address] Christianvíctor Santanaen MCH (RBC) [Entitic mass] 32.7 pg Normal 26.7-34.0 [facility] Comment on above: Performed By: #### C BC #### [facility] [address] [place] [address] Christianvíctor Degroot MCHC (RBC) [Mass/Vol] 32.2 g/dL Normal 29.9-35.2 [facility] Comment on above: Performed By: #### C BC #### [facility] [address] [place] [address] Christianvíctor Degroot MCV (RBC) [Entitic vol] 101.4 fL Critically high 81.0-99.0 [facility] Comment on above: Performed By: #### C BC #### [facility] [address] [place] [address] Christian Mikayla Monocytes (Bld) [#/Vol] 1.4 103/ul Critically high 0.3-0.8 [facility] Comment on above: Performed By: #### C BC #### [facility] [address] [place], [place] [address] Christian Mikayla Monocytes/100 WBC (Bld) 8.6 % Normal 1.7-12.0 [facility] Comment on above: Performed By: #### C BC #### [facility] [address] [place], [place] [address] Christian Mikayla Neutrophils (Bld) [#/Vol] 13.4 103/ul Critically high 1.4-6.5 [facility] Comment on above: Performed By: #### C BC #### [facility] [address] [place] [address] Christian Degroot Neutrophils/100 WBC (Bld) 84.0 % Critically high 43.0-75.0 [facility] Comment on above: Performed By: #### C BC #### [facility] [address] [place] [address] Christian Mikayla Platelet mean volume (Bld) [Entitic vol] 9.5 fL Normal 9.5-13.5 [facility] Comment on above: Performed By: #### C BC #### [facility] [address] [place], [place] [address] Christian Mikayla Platelets (Bld) [#/Vol] 207 103/ul Normal 150-450 [facility] Comment on above: Performed By: #### C BC #### [facility] [address] [place], [place] [address] Christian Mikayla RBC (Bld) [#/Vol] 3.49 106/ul Critically low 4.20-5.40 [facility] Comment on above: Performed By: #### C BC #### [facility] [address] [place] [address] Christian Mikayla WBC (Bld) [#/Vol] 16.0 103/ul Critically high 4.0-11.0 [facility] Comment on above: Performed By: #### C BC #### [facility] [address] [place] [address] Christianvíctor Santanaen PROF CHEM 8 (BAS METB)on Anion gap [Moles/Vol] 11.2 mmol/L Normal [facility] Comment on above: Performed By: #### D RUGRPD #### [facility] [address] [place] [address] Christian Mikayla Calcium [Mass/Vol] 8.3 mg/dL Critically low 8.4-10.2 [facility] Comment on above: Performed By: #### D RUGRPD #### [facility] [address] [place], [place] [address] Christian Mikayla Chloride [Moles/Vol] 106 mmol/L Normal 98-107 [facility] Comment on above: Performed By: #### D RUGRPD #### [facility] [address] [place], [place] [address] Christian Mikayla CO2 [Moles/Vol] 24.5 mmol/L Normal 22.0-30.0 [facility] Comment on above: Performed By: #### D MARIAMARPD #### [facility] [address] [place], [place] [address] Christian Mikayla Creatinine [Mass/Vol] 0.53 mg/dL Normal 0.52-1.04 [facility] Comment on above: Performed By: #### D MARIAMARPD #### [facility] [address] [place] [id number] Christian Mikayla EGFR-AF MALAGASY >60 Normal >=60 [facility] Comment on above: Performed By: #### D MARIAMARPD #### [facility] [address] [place], [place] [address] Christian Mikayla EGFR-NON AF MALAGASY >60 Normal >=60 [facility] Comment on above: Performed By: #### D JUNED #### [facility] [address] [place], [place] [address] Christian Mikayla Glucose [Mass/Vol] 113 mg/dL Critically high 74-106 [facility] Comment on above: Performed By: #### D MARIAMARPD #### [facility] [address] [place] [id number] Christian Mikayla Potassium [Moles/Vol] 3.7 mmol/L Normal 3.4-5.0 [facility] Comment on above: Performed By: #### D JUNED #### [facility] [address] [place] [id number] Christian Mikayla Sodium [Moles/Vol] 138 mmol/L Normal 137-145 [facility] Comment on above: Performed By: #### D JUNED #### [facility] [address] [place] [id number] Christian Mikayla Urea nitrogen [Mass/Vol] 12.0 mg/dL Normal 7.0-17.0 [facility] Comment on above: Performed By: #### D JUNED #### [facility] [address] [place] [address] Christian Mikayla Urea nitrogen/Creatinin e [Mass ratio] 22.6 mg/mg Normal [facility] Comment on above: Performed By: #### D JUNED #### [facility] [address] [place] [address] Christian Mikayla CBC W MANUAL DIFFon 03-06-20 ATYPICAL LYMPH # Normal [facility] Comment on above: Performed By: #### D COLT #### [facility] [address] [place] [address] Christian Mikayla ATYPICAL LYMPH % Normal [facility] Comment on above: Performed By: #### D JUNED #### [facility] [address] [place] [address] Christian Mikayla BAND # Normal 0.0-0.3 [facility] Comment on above: Performed By: #### Dwayne GREGORY #### [facility] [address] [place] [address] Christian Mikayla BAND % Normal 0-5 [facility] Comment on above: Performed By: #### D JUNED #### [facility] [address] [place] [address] Christian Mikayla BASOM # 0.00 103/ul Normal 0.00-0.10 [facility] Comment on above: Performed By: #### D JUNED #### [facility] [address] [place] [address] Christian Mikayla BASOM % 0.0 % Critically low 0.2-2.0 [facility] Comment on above: Performed By: #### D COLT #### [facility] [address] [place] [address] Christian Mikayla BLAST # Normal [facility] Comment on above: Performed By: #### Dwayne GREGORY #### [facility] [address] [place], [place] [address] Christian Mikayla BLAST % Normal [facility] Comment on above: Performed By: #### D JUNED #### [facility] [address] [place] [id number] Christian Mikayla CORRECTED WBC Normal 4.0-11.0 [facility] Comment on above: Performed By: #### D COLT #### [facility] [address] [place] [phone] Christian Mikayla Eosinophils (Bld) [#/Vol] 0.00 103/ul Normal 0.00-0.70 [facility] Comment on above: Performed By: #### D COLT #### [facility] [address] [place], [place] [address] Christian Mikayla Eosinophils/100 WBC (Bld) 0.0 % Critically low 0.9-7.0 [facility] Comment on above: Performed By: #### D COLT #### [facility] [address] [place], [place] [address] Christian Mikayla Erythrocyte distribution width (RBC) [Ratio] 13.2 % Normal 11.0-15.0 [facility] Comment on above: Performed By: #### D COLT #### [facility] [address] [place], [place] [address] Christian Mikayla Hematocrit (Bld) [Volume fraction] 44.1 % Normal 36.0-48.0 [facility] Comment on above: Performed By: #### D COLT #### [facility] [address] [place], [place] [address] Christian Mikayla Hemoglobin (Bld) [Mass/Vol] 13.9 g/dl Normal 12.0-16.0 [facility] Comment on above: Performed By: #### D COLT #### [facility] [address] [place], [place] [address] Christian Mikayla LYMPHM # 0.26 103/ul Critically low 1.20-3.80 [facility] Comment on above: Performed By: #### D COLT #### [facility] [address] [place] [address] Christian Mikayla LYMPHM% 1.0 % Critically low 20.5-60.0 [facility] Comment on above: Performed By: #### D MARIAMARPD #### [facility] [address] [place] [address] Christianvíctor Degroot MCH (RBC) [Entitic mass] 32.6 pg Normal 26.7-34.0 [facility] Comment on above: Performed By: #### D MARIAMARPD #### [facility] [address] [place], [place] [address] Christianvíctor Degroot MCHC (RBC) [Mass/Vol] 31.5 g/dl Normal 29.9-35.2 [facility] Comment on above: Performed By: #### D MARIAMARPD #### [facility] [address] [place], [place] [address] Christianvíctor Degroot MCV (RBC) [Entitic vol] 103.3 fL Critically high 81.0-99.0 [facility] Comment on above: Performed By: #### D JUNED #### [facility] [address] [place], [place] [address] Christian Mikayla METAMYELOCYTE # Normal [facility] Comment on above: Performed By: #### D JUNED #### [facility] [address] [place], [place] [address] Christian Mikayla METAMYELOCYTE % Normal [facility] Comment on above: Performed By: #### D RUGRPD #### [facility] [address] [place] [address] Christian Mikayla MONOM# 1.32 103/ul Critically high 0.30-0.80 [facility] Comment on above: Performed By: #### D JUNED #### [facility] [address] [place] [address] Christian Mikayla MONOM% 5.0 % Normal 1.7-12.0 [facility] Comment on above: Performed By: #### D RUGRPDwayne #### [facility] [address] [place], [place] [address] Christian Mikayla MYELOCYTE # Normal [facility] Comment on above: Performed By: #### D RUGRPD #### [facility] [address] [place], [place] [address] Christian Mikayla MYELOCYTE % Normal [facility] Comment on above: Performed By: #### D RUGRPD #### [facility] [address] [place], [place] [address] Christian Mikayla NRBC Normal [facility] Comment on above: Performed By: #### D RUGRPD #### [facility] [address] [place], [place] [address] Christian Mikayla Platelet mean volume (Bld) [Entitic vol] 9.6 fL Normal 9.5-13.5 [facility] Comment on above: Performed By: #### D RUGRPD #### [facility] [address] [place] [address] Christian Mikayla Platelets (Bld) [#/Vol] 268 103/ul Normal 150-450 [facility] Comment on above: Performed By: #### D RUGRPD #### [facility] [address] [place], [place] [address] Christian Mikayla RBC (Bld) [#/Vol] 4.27 106/ul Normal 4.20-5.40 [facility] Comment on above: Performed By: #### D RUGRPD #### [facility] [address] [place] [address] Christian Mikayla SEG # 24.82 103/ul Critically high 1.40-6.50 [facility] Comment on above: Performed By: #### D RUGRPD #### [facility] [address] [place], [place] [address] Christian Mikayla Segmented neutrophils/100 WBC (Bld) 94.0 % Critically high 43.0-75.0 [facility] Comment on above: Performed By: #### D RUGRPD #### [facility] [address] [place], [place] [address] Christian Mikayla WBC (Bld) [#/Vol] 26.4 103/ul Critically high 4.0-11.0 [facility] Comment on above: Performed By: #### D RUGRPD #### [facility] [address] [place], [place] [address] Christian Degroot CPKon 03-06-2020 CK [Catalytic activity/Vol] 464 U/L Critically high 30-135 [facility] Comment on above: Result Comment: test repeated critical value verified Performed By: #### C K #### [facility] [address] [place], [place] [address] ABD/PELV W CONon 03-06-20 [...] MAT CASEY Date: 2020-03-06 18:45 Normal The [facility] CT STROKE HEAD WOon 03-06-[address] [...] MAT CASEY Date: 2020-03-06 16:31 Normal [facility] DRUG SCREEN RAPID (URINE)on 03-06-2020 AMP Positive Normal NEGATIVE [facility] Comment on above: Performed By: #### D RUGRPD #### [facility] [address] [place] [address] Christian Mikayla BAR Negative Normal NEGATIVE [facility] Comment on above: Performed By: #### D RUGRPD #### [facility] [address] [place] [address] Christian Mikayla BUP Negative Normal NEGATIVE [facility] Comment on above: Performed By: #### D RUGRPD #### [facility] [address] [place] [address] Christian Mikayla BZO Negative Normal NEGATIVE [facility] Comment on above: Performed By: #### D RUGRPD #### [facility] [address] [place] [address] Christian Mikayla RITCHIE Negative Normal NEGATIVE [facility] Comment on above: Performed By: #### D RUGRPD #### [facility] [address] [place] [address] Christian Mikayla CUT-OFFS SEE BELOW Normal [facility] Comment on above: Result Comment: [...] ng/mL Performed By: #### D RUGRPD #### [facility] [address] [place] [address] DRUG CUT HEADER DRUG CLASS TEST SYST EM CUT-OFF CONCENTRATIONS ARE FOLLOWS: Normal [facility] Comment on above: Performed By: #### D RUGRPD #### [facility] [address] [place] [address] Christian Mikayla mAMP Negative Normal NEGATIVE [facility] Comment on above: Performed By: #### D RUGRPD #### [facility] [address] [place] [address] Christian Mikayla MTD Negative Normal NEGATIVE [facility] Comment on above: Performed By: #### D RUGRPD #### [facility] [address] [place] [address] Christian Mikayla OPI Positive Normal NEGATIVE [facility] Comment on above: Performed By: #### D RUGRPD #### [facility] [address] [place] [address] Christian Mikayla OXY Negative Normal NEGATIVE [facility] Comment on above: Performed By: #### D RUGRPD #### [facility] [address] [place] [address] Christian Mikayla PCP Negative Normal NEGATIVE [facility] Comment on above: Performed By: #### D RUGRPD #### [facility] [address] [place], [place] [address] PPX Negative Normal NEGATIVE [facility] Comment on above: Performed By: #### D RUGRPD #### [facility] [address] [place] [address] Christian Mikayla TCA Negative Normal NEGATIVE [facility] Comment on above: Performed By: #### D RUGRPD #### [facility] [address] [place], [place] [address] Christian Mikayla THC Negative Normal NEGATIVE [facility] Comment on above: Performed By: #### D RUGRPD #### [facility] [address] [place], [place] [address] Christian Mikayla ER URINE PROFILEon 0 Bilirubin [Mass/Vol] Negative Normal NEGATIVE [facility] Comment on above: Performed By: #### E RUR #### [facility] [address] [place] [address] Christian Mikayla BLOOD Negative Normal NEGATIVE [facility] Comment on above: Performed By: #### E RUR #### [facility] [address] [place] [address] Christian Mikayla Clarity (U) CLEAR Normal [facility] Comment on above: Performed By: #### E RUR #### [facility] [address] [place] [address] Christian Mikayla Color (U) YELLOW Normal YELLOW [facility] Comment on above: Performed By: #### E RUR #### [facility] [address] [place], [place] [address] Christian Mikayla ERUAHD A micrscopic examina tion will be performed if indicated. Normal [facility] Comment on above: Performed By: #### E RUR #### [facility] [address] [place] [address] Christian Mikayla Glucose [Mass/Vol] Negative Normal NEGATIVE [facility] Comment on above: Performed By: #### E RUR #### [facility] [address] [place] [address] Christian Mikayla Ketones Ql (U) Negative Normal NEGATIVE [facility] Comment on above: Performed By: #### E RUR #### [facility] [address] [place], [place] [address] Christian Mikayla Nitrite Ql (U) Negative Normal NEGATIVE [facility] Comment on above: Performed By: #### E RUR #### [facility] [address] [place] [address] Christian Degroot pH (Bld) 6.0 Normal 5-9 [facility] Comment on above: Performed By: #### E RUR #### [facility] [address] [place] [address] Christian Degroot Protein (U) [Mass/Vol] TRACE Normal [facility] Comment on above: Performed By: #### E RUR #### [facility] [address] [place] [address] Christianvíctor Degroot SPEC GRAVITY >=1.030 Normal 1.005-<=1.02 5 [facility] Comment on above: Performed By: #### E RUR #### [facility] [address] [place] [address] Christian Degroot UR MICRO IND NOT INDICATED Normal [facility] Comment on above: Performed By: #### E RUR #### [facility] [address] [place] [address] Christian Degroot Urobilinogen Qn (U) 0.2 EU/dl Normal [facility] Comment on above: Performed By: #### E RUR #### [facility] [address] [place], [place] [address] Christianvíctor Degroot WBC (Bld) [#/Vol] Negative Normal NEGATIVE [facility] Comment on above: Performed By: #### E RUR #### [facility] [address] [place], [place] [address] Christian Mikayla ETHANOL (BLD ALC)on 03-06-20 20 Ethanol [Mass/Vol] NOTE: 80 mg/dl is th e legal limit for a blood alcohol level Normal [facility] Comment on above: Performed By: #### E TH #### [facility] [address] [place], [place] [address] Christian Mikayla Ethanol [Mass/Vol] mg/dL Normal [facility] Comment on above: Performed By: #### E TH #### [facility] [address] [place], [place] [address] Christian Mikayla HEMOGRAM AND PLATELon 2019 WBC (Bld) [#/Vol] 23.5 103/ul Critically high 4.0-11.0 [facility] Comment on above: Performed By: #### H H #### [facility] [address] [place], [place] [address] Christian Degroot LACTATE/LACTIC ACIDon 2019 Lactate [Moles/Vol] 0.7 mmol/L Normal 0.7-2.0 [facility] Comment on above: Performed By: #### L ACT #### [facility] [address] [place] [address] Christian Degroot MYOGLOBINon 03-06-2020 Myoglobin [Mass/Vol] 918.0 ng/mL Critically high <=61.5 [facility] Comment on above: Result Comment: test repeated critical value verified Performed By: #### M YO #### [facility] [address] [place] [address] Christian Degroot POINT OF CARE GLUCOSEon 02-14 Glucose [Mass/Vol] 117 mg/dL Critically high 74-106 [facility] Comment on above: Performed By: #### D RUGRPD #### [facility] [address] [place], [place] [address] Christian Degroot PROF 14(COMP METB)on 020 Albumin [Mass/Vol] 3.3 g/dL Critically low 3.5-5.0 [facility] Comment on above: Performed By: #### T ROP, CMP #### [facility] [address] [place], [place] [address] Christian Degroot Albumin/Globulin [Mass ratio] 1.1 {ratio} Normal [facility] Comment on above: Performed By: #### T ROP, CMP #### [facility] [address] [place], [place] [address] Christian Mikayla ALP [Catalytic activity/Vol] 69 U/L Normal 38-126 [facility] Comment on above: Performed By: #### T ROP, CMP #### [facility] [address] [place] [address] Christian Mikayla ALT [Catalytic activity/Vol] 30 U/L Normal 9-52 [facility] Comment on above: Performed By: #### T ROP, CMP #### [facility] [address] [place], [place] [address] Christian Mikayla Anion gap [Moles/Vol] 16.8 mmol/L Normal [facility] Comment on above: Performed By: #### T ROP, CMP #### [facility] [address] [place] [address] Christian Mikayla AST [Catalytic activity/Vol] 29 U/L Normal 14-36 [facility] Comment on above: Performed By: #### T ROP, CMP #### [facility] [address] [address] Christian Mikayla Bilirubin Ql (U) 0.4 mg/dL Normal 0.2-1.3 [facility] Comment on above: Performed By: #### T ROP, CMP #### [facility] [address] [address] Christian Mikayla Calcium [Mass/Vol] 8.7 mg/dL Normal 8.4-10.2 [facility] Comment on above: Performed By: #### T ROP, CMP #### [facility] [address] [address] Christian Mikayla Chloride [Moles/Vol] 104 mmol/L Normal 98-107 [facility] Comment on above: Performed By: #### T ROP, CMP #### [facility] [address] [address] Christian Mikayla CO2 [Moles/Vol] 22.6 mmol/L Normal 22.0-30.0 [facility] Comment on above: Performed By: #### T ROP, CMP #### [facility] [address] [address] Christian Mikayla Creatinine [Mass/Vol] 0.92 mg/dL Normal 0.52-1.04 [facility] Comment on above: Performed By: #### T ROP, CMP #### [facility] [address] [address] Christian Mikayla EGFR-AF MALAGASY >60 Normal >=60 [facility] Comment on above: Performed By: #### T ROP, CMP #### [facility] [address] [place], [place] [address] Christian Mikayla EGFR-NON AF MALAGASY >60 Normal >=60 [facility] Comment on above: Performed By: #### T ROP, CMP #### [facility] [address] [place], [place] [address] Christian Mikayla Globulin (S) [Mass/Vol] 3.0 g/dL Normal [facility] Comment on above: Performed By: #### T ROP, CMP #### [facility] [address] [address] Christian Mikayla Glucose [Mass/Vol] 130 mg/dL Critically high 74-106 [facility] Comment on above: Performed By: #### T ROP, CMP #### [facility] [address] [address] Christian Mikayla Potassium [Moles/Vol] 4.4 mmol/L Normal 3.4-5.0 [facility] Comment on above: Performed By: #### T ROP, CMP #### [facility] [address] [address] Christian Mikayla Protein [Mass/Vol] 6.3 g/dL Normal 6.1-8.2 [facility] Comment on above: Performed By: #### T ROP, CMP #### [facility] [address] [address] Christian Mikayla Sodium [Moles/Vol] 139 mmol/L Normal 137-145 [facility] Comment on above: Performed By: #### T ROP, CMP #### [facility] [address] [address] Christian Mikayla Urea nitrogen [Mass/Vol] 18.0 mg/dL Critically high 7.0-17.0 [facility] Comment on above: Performed By: #### T ROP, CMP #### [facility] [address] [address] Christian Mikayla Urea nitrogen/Creatinin e [Mass ratio] 19.6 mg/mg Normal [facility] Comment on above: Performed By: #### T ROP, CMP #### [facility] [address] [place] [address] Christian Mikayla RESPIRATORY PANEL PLUSon Adenovirus NOT DETECTED Normal NOT DETECTED [facility] Comment on above: Performed By: #### D RUGRPD #### [facility] [address] [place] [address] Christian Mikayla B. Parapertusis NOT DETECTED Normal NOT DETECTED [facility] Comment on above: Performed By: #### D RUGRPD #### [facility] [address] [place] [address] Christian Mikayla B. Pertussis NOT DETECTED Normal NOT DETECTED [facility] Comment on above: Performed By: #### D RUGRPD #### [facility] [address] [place] [address] Christian Mikayla Chlamydia Pneumoniae NOT DETECTED Normal NOT DETECTED [facility] Comment on above: Performed By: #### D RUGRPD #### [facility] [address] [place] [address] Christian Mikayla Coronavirus 229E NOT DETECTED Normal NOT DETECTED [facility] Comment on above: Performed By: #### D RUGRPD #### [facility] [address] [place] [address] Christian Mikayla Coronavirus HKU1 NOT DETECTED Normal NOT DETECTED [facility] Comment on above: Performed By: #### D RUGRPD #### [facility] [address] [place] [address] Christian Mikayla Coronavirus NL63 NOT DETECTED Normal NOT DETECTED [facility] Comment on above: Performed By: #### D RUGRPD #### [facility] [address] [place] [address] Christian Mikayla Coronavirus OC43 NOT DETECTED Normal NOT DETECTED [facility] Comment on above: Performed By: #### D RUGRPD #### [facility] [address] [place] [address] Christian Mikayla Influenza A H1 2009 NOT DETECTED Normal NOT DETECTED [facility] Comment on above: Performed By: #### D RUGRPD #### [facility] [address] [place] [address] Christian Mikayla Influenza B NOT DETECTED Normal NOT DETECTED [facility] Comment on above: Performed By: #### D RUGRPD #### [facility] [address] [place] [address] Christian Mikayla Metapneumovirus NOT DETECTED Normal NOT DETECTED [facility] Comment on above: Performed By: #### D RUGRPD #### [facility] [address] [address] Christian Mikayla Mycoplas. Pneumoniae NOT DETECTED Normal NOT DETECTED [facility] Comment on above: Performed By: #### D RUGRPD #### [facility] [address] [address] Christian Mikayla Parainfluenza 1 NOT DETECTED Normal NOT DETECTED [facility] Comment on above: Performed By: #### D RUGRPD #### [facility] [address] [place] [address] Christian Mikayla Parainfluenza 2 NOT DETECTED Normal NOT DETECTED [facility] Comment on above: Performed By: #### D RUGRPD #### [facility] [address] [place] [address] Christian Mikayla Parainfluenza 3 NOT DETECTED Normal NOT DETECTED [facility] Comment on above: Performed By: #### D RUGRPD #### [facility] [address] [place] [address] Christian Mikayla Parainfluenza 4 NOT DETECTED Normal NOT DETECTED [facility] Comment on above: Performed By: #### D RUGRPD #### [facility] [address] [address] Christian Mikayla Rhino/Enterovirus NOT DETECTED Normal NOT DETECTED [facility] Comment on above: Performed By: #### D RUGRPD #### [facility] [address] [place] [address] Christian Mikayla RP2 Header 1 RESPIRATORY PANEL: VIRUSES Normal [facility] Comment on above: Performed By: #### D RUGRPD #### [facility] [address] [place] [address] Christian Mikayla RP2 Header 2 RESPIRATORY PANEL: BACTERIA Normal [facility] Comment on above: Performed By: #### D RUGRPD #### [facility] [address] [place] [address] Christian Degroot RP2 Header 4 EUA SEE BELOW Normal [facility] Comment on above: Result Comment: This test is not yet approved or cleared by the [place] FDA. When there are no FDA-approved or cleared tests available, and other criteria are met, FDA can make tests available under an emergency access mechanism called an Emergency Use Authorization (EUA). The EUA for this test is supported by the [place] of Health and Human Service?s (HHS?s) declaration [...] used). Performed By: #### D RUGRPD #### [facility] [address] [place] [address] Christian Degroot RSV NOT DETECTED Normal NOT DETECTED [facility] Comment on above: Performed By: #### D RUGRPD #### [facility] [address] [place] [address] Christian Degroot SARS-CoV-2: COVID-19 NOT DETECTED Normal NOT DETECTED [facility] Comment on above: Performed By: #### D RUGRPD #### [facility] [address] [place] [address] Christian Degroot TROPONIN - Ion 03-06-2020 Troponin I.cardiac [Mass/Vol] 0.016 ng/mL Normal <=0.034 [facility] Comment on above: Performed By: #### T ROP, CMP #### [facility] [address] [place] [address] Christian Degroot Troponin I.cardiac [Mass/Vol] SEE BELOW Normal [facility] Comment on above: Result Comment: <0.0 34 ng/ml NEGATIVE 0.034-0.119 INDETERMINATE 0.120 AMI CUT OFF Performed By: #### T ROP, CMP #### [facility] [address] [address] Christian Degroot XR CHEST 1 Von 03-06-2020 [...] FELA SMITH Date: 2020-03-06 15:07 Normal [facility] CT 3D CERVICAL SPINE WITH CO NTRASTon 04-27-2018 CT 3D CERVICAL SPINE WITH CONTRAST [facility] [address] [place] [address] Patient Name: RADHA DUNCAN : 1970Sex: FAge: Race: WhiteMRN: [id number]. Location: 85Patient Status: OVisit #: [id number] Date: 04/10/2018 12:10:00 PMCompleted Date: 04/27/2018 10:58 AMRequesting Provider: MARY DIAL Attending Provider: MRAY DIAL Report Copy To: TEJAS RICHARDSON Signs & Symptoms: M54.12 Radiculopathy, cervical region [id number]: Nyla MYELOGRAM AUTH [id number] VALID 04/11/18-07/12/18 PER [facility] [id number] JYComments: Exam: CT 3D CERVICAL SPINE WITH CONTRASTAccession #: [id number] CT 3D CERVICAL SPINE WITH CONTRAST 04/27/2018 [...] findings. Electronically signed by:Oli Sanders. Transcribed by: [email or web address], User Resident: MANDEEP YOUNGElectronically Signed by: OLI SANDERS @ 04/27/2018 01:02 PMI personally read this/these film(s) with this resident Normal The [facility] CT 3D LUMBAR SPINE W CONTRAS Ton 04-27-2018 CT 3D LUMBAR SPINE W CONTRAST [facility] [address] [place] [address] Patient Name: RADHA DUNCAN : 1970Sex: FAge: Race: WhiteMRN: [id number]. Location: 85Patient Status: DVisit #: [id number] Date: 04/10/2018 12:10:00 PMCompleted Date: 04/27/2018 10:59 AMRequesting Provider: MARY DIAL Attending Provider: MARY DIAL Report Copy To: TEJAS RICHARDSON Signs & Symptoms: M54.16 Radiculopathy, lumbar region N08Vnferuv: Nyla MYELOGRAM AUTH [id number] VALID 04/11/18-07/12/18 PER [facility] [address] JYComments: Exam: CT 3D LUMBAR SPINE W CONTRASTAccession #: [id number] CT 3D LUMBAR SPINE W CONTRAST 04/27/2018 [...] findings. Electronically signed by:Antony Skelton. Transcribed by: [email or web address], User Resident: MANDEEP YOUNGElectronically Signed by: ANTONY SKELTON @ 04/27/2018 05:36 PMI personally read this/these film(s) with this resident Normal The [facility] ENTIRE MYELOGRAMon 8 ENTIRE MYELOGRAM [facility] [address] [place] [address] Patient Name: RADHA DUNCAN : 1970Sex: FAge: Race: WhiteMRN: [id number]. Location: 85Patient Status: OVisit #: [id number] Date: 04/10/2018 12:10:00 PMCompleted Date: 04/27/2018 10:19 AMRequesting Provider: MARY DIAL Attending Provider: MARY DIAL Report Copy To: TEJAS RICHARDSON Signs & Symptoms: M54.16 Radiculopathy, lumbar region E98Neevpxd: Nyla CT MYELOGRAMComments: , , , Ordering Provider - MARY DIAL MD , Exam: ENTIRE MYELOGRAMAccession #: [id number] ENTIRE MYELOGRAM 04/27/2018 10:19 AM EST SIGNS [...] and risks are acceptable. Consent was obtained. Timeout:[place] protocol timeout verification performed. PROCEDURE:Estimated blood loss:None [...] findings. Electronically signed by:Oli Sanders. Transcribed by: [email or web address], User Resident: MANDEEP YOUNGElectronically Signed by: OLI SANDERS @ 04/27/2018 01:01 PMI personally read this/these film(s) with this resident Normal [facility] Comment on above: Order Comment: , , = ========= , Ordering Provider - MARY DIAL MD , Ta 02-20-2018 CNPN Telephone (PAIN) -------RADHA DUNCAN ([id number]) 1970 [facility] Time Provider Qyailcptpx99/8/18 MAGED MURDOCK During your visit today, we recorded the following information about you:[facility] Patient Service Spec 02/20/2018 8:05 AM SignedPt [...] from his care.Please call her back at [phone].Elyisa Montoya Psr 02/22/2018 8:37 AM SignedPlease fax letter over to [phone].Clint Park LPN 02/27/2018 10:18 AM SignedSpoke with patient and she wanted to know if knew of a physician inthe area that she lived that could do the ketamine infusion.I explained most likely he would not have this information she would need tocheck around in her area with other pain providers to see if they do theinfusions. She said she found one in the [place] area but they want money upfront and [...] Status:Closed by MAGED MURDOCK MD on 02/28/18 [facility] CNOVon 02-10-2018 CNOV Office Visit (PAINCC) -------DAKOTARADHA ([id number]) 1970 FDate Time Provider Department02/10/18 10:45 AM MAGED MURDOCK During your visit today, we recorded the following information about you: Pulse Respiration Blood pressure Weight 80/minute 16/minute 132/47 69.9 kgMaged Murdock MD 02/11/2018 1:30 PM AddendumSUBJECTIVE:The patient presents to [facility] Department for afollow-up appointment [...] percocet was last taken 02/09/2018 in the [facility] OARRS records were reviewed.Imaging results in [...] other than HPI.Data scribed by above mentioned MA/HEATING UNIT INSTALLER/RN/PA, and personally reviewed andverified by physician. Maged [...] treatment plan. Patient agreeswith above. Maged Murdock, [facility]2017Referring Provider: LINDSEY AGUILAR [[id number]]Allergies As of Date: 02/10/2018(No Known Allergies)Date Reviewed: [...] INVALID FOR* 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] INVALID FOR*Letter [facility]2017Maged MurdockSalem City HospitalDepartment of Pain [address] [place], [place] [phone] [phone] Suzanne M Bailey:Thank you for seeing me [...] any questions. Sincerely, Maged Murdock MDEncounter Number: [id number] Status:Closed by MAGED MURDOCK MD on 02/11/18 Normal [facility] PROGRESSon 02-10-2018 Protein mass conc HNO ID: [id number] thor: Maged Jolleyervice: (none)Author Type: PhysicianType: Progress NotesFiled: 02/11/2018 1:30 PMNote Text:SUBJECTIVE:The patient presents to [facility] Pain Management Departmentfor a follow-up appointment [...] other than HPI.Data scribed by above mentioned MA/HEATING UNIT INSTALLER/RN/PA, and personally reviewed andverified by physician. Maged [...] with above. Maged Murdock, MDSeptember 2017 Normal [facility] CNOVon 01-10-2018 CNOV Office Visit (PAINCC) -------RADHA DUNCAN ([id number]) 1970 FDate Time Provider Department01/10/18 1:00 PM MONICA YAN ([facility]) PAINCC During your visit today, we recorded the following information about you: Pulse Blood pressure Weight 85/minute 127/47 70.3 kgMonica Yan APRN.CNP 01/10/2018 2:13 PM SignedSUBJECTIVE:The patient presents to [facility] Management Department for afollow-up appointment [...] and C4-C5 secondaryto DDDAnterior mechanical fusion of A7-3-4MWNGNY OF SYSTEMS:GENERAL: (-) weight loss, (+)malaise, (-)fevers.HEENT:(+)headache [...] other than HPI.Data scribed by above mentioned MA/HEATING UNIT INSTALLER/RN/PA, and personally reviewed andverified by Monica Yan [...] resulting treatment plan. Patient agreeswith above.Monica Yan APRN.CNPAulovelace medical centert 2017Referring Provider: TEJAS RICHARDSON JR [[id number]]Allergies As of Date: 01/10/2018(No Known Allergies)Date Reviewed: [...] INVALID FOR*Follow-up and Disposition History RecordedEncounter Number: [id number] Status:Closed by MONICA YAN CNP on 01/10/18 Normal [facility] PROGRESSon 01-09-2018 Protein mass conc HNO ID: [id number] thor: Monica Pereyra ([employer]) HillService: (none)Author Type: Nurse PractitionerType: Progress NotesFiled: 01/10/2018 2:13 PMNote Text:SUBJECTIVE:The patient presents to [facility] Pain Management Departmentfor a follow-up appointment [...] to moderate foraminal narrowing at C3-C4, and C4-V1tjmoqamsb to DDDAnterior mechanical fusion of D1-3-1WTNNYB OF SYSTEMS:GENERAL: (-) weight loss, (+)malaise, (-)fevers.HEENT:(+)headache [...] other than HPI.Data scribed by above mentioned MA/HEATING UNIT INSTALLER/RN/PA, and personally reviewed andverified by Monica Yan [...] Patientagrees with above.Monica Yan APRN.CNPAugust 2017 Normal [facility] CNPNon 12-21-2017 CNPN Telephone ([facility]) -------RADHA DUNCAN ([id number]) 1970 FDate Time Provider Department12/21/17 MAGED MURDOCK During your visit today, we recorded the following information about you:Lorena Araiza 12/21/2017 10:31 AM AddendumPatient calling in to inquire if you have received [facility].Please advisJacob Park LPN 12/22/2017 3:15 PM SignedSpoke with patient and informed her that we did receive the thoracic MRI whichwas normal.We did not receive the cervical MRI. She will call [facility] and have them refaxit.Kami Zheng Workleader 12/26/2017 9:53 AM SignedPatient called back in regards to below message. Patient would like to know ifwe have received the Cervical MRI as it was refaxed 12/22. Pleasereview.Clint Park LPN 12/26/2017 11:01 AM SignedSpoke to [facility] and they are refaxing it as I [...] Status:Closed by CLINT PARK LPN on 12/22/17 [facility] CNOVon 12-08-2017 CNOV Office Visit (PAINCC) -------RADHA DUNCAN ([id number]) 1970 [facility] Time Provider Department12/08/17 1:30 PM MAGED MURDOCK During your visit today, we recorded the following information about you: Pulse Respiration Blood pressure Weight 62/minute 16/minute 105/40 68.9 kgMaged Murdock MD 12/08/2017 6:06 PM SignedReferring Or Consulting Physician:Lindsey Aguilar, PA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 Maged [...] also during rena-operative period. we dont have mhqg-kdnsvcr-jheerojq for disability, likely to hamper rapid recovery [...] she did have severe postprocedure pain in [facility] handsDirect patient care time spent: [...] mail.Maged Murdock MDJuly 2017Referring Provider: LINDSEY AGUILAR [[id number]]Allergies As of Date: 12/08/2017(No Known Allergies)Date Reviewed: 12/08/2017Reviewed by: Kayla Sparks HEATING UNIT INSTALLER - Fully AssessedReason for Visit: New Patient [172]Primary Visit Diagnosis:Facet syndrome (HCC) [M46.90] Other Visit Diagnoses:Pain in thoracic spine [M54.6] Radiculopathy, cervical region [M54.12] Vitamin D deficiency [E55.9] Localized swelling, mass and lump, trunk [R22.2] Cervical post-laminectomy syndrome [M96.1] Cervical spondylosis without myelopathy [M47.812] Current smoker [F17.200] Malaise and fatigue [R53.81, R53.83] Spinal stenosis of cervical region [M48.02]Order(s):C-REACTIVE PROTEIN (CRP) [SQCRP] Order #: [id number] FUTURE SED RATE WESTERGREN [SQWSR] Order #: [id number] FUTURE TSH BLD [SQTSH] Order #: [id number] FUTURE IRON + TIBC [SQIRON] Order #: [id number] FUTURE VITAMIN D 25 HYDROXY [SQVITD] Order #: [id number] FUTURE MRI THORACIC SPINE WO/W IVCON [[id number]] Order #: [id number] FUTURE iv contrast (will be provided with [...] EachRfl: 0 MRI CERVICAL SPINE WO IVCON [[id number]] Order #: [id number] FUTUREPrescriptions as of 12/08/2017 Sig: OXCARBAZEPINE 150 [...] discontinue is not on file.Letter TextJuly 2017Maged MurdockSalem City HospitalDepartment of Pain Ddtzwyillv[address] [place], [place] [phone] [phone] Suzanne M Bailey:Thank you for seeing me [...] medications for the issues above, [facility]. Afterthat, further testing could be done to get to the bottom of your problems.Please call with any questions. Sincerely, Maged Murdock MDEncounter Number: [id number] Status:Closed by MAGED MURDOCK MD on 12/08/17 Normal [facility] PROGRESSon 12-08-2017 Protein mass conc HNO ID: [id number] thor: Maged Jolleyervice: (none)Author Type: PhysicianType: Progress NotesFiled: 12/08/2017 6:06 PMNote Text:Referring Or Consulting Physician:Lindsey Aguilar PA[address] 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 Maged [...] she did have severepost procedure pain in [facility] [employer] handsDirect patient care time spent: [...] fax, or mail.Maged Murdock MDJuly 2017 Normal [facility] Encounters Encounter Date Encounter Type Care Provider Facility Start: 04-24-2024 End: 04-24-2024 ambulatory [facility] Start: 04-11-2024 End: 04-11-2024 ambulatory [facility] Start: 04-04-2024 End: 04-04-2024 ambulatory [facility] Start: 03-27-2024 End: 03-27-2024 ambulatory [facility] Start: 03-20-2024 End: 03-20-2024 ambulatory [facility] Start: 03-16-2024 End: 03-16-2024 ambulatory [facility] Start: 03-15-2024 End: 03-15-2024 ambulatory [facility] Work Phone: Start: 03-15-2024 End: 03-15-2024 Patient encounter procedure [facility] Work Phone: Start: 03-13-2024 End: 03-13-2024 ambulatory TEJAS Pereyra [facility] Start: 03-07-2024 End: 03-07-2024 ambulatory [facility] Start: 12-15-2023 End: 01-15-2024 ambulatory TEJAS Pereyra [facility] Start: 12-05-2023 End: 12-15-2023 ambulatory TEJAS Pereyra [facility] Start: 11-10-2023 End: 11-10-2023 ambulatory Hanane Latham APRN-COMMER[employer]EM[employer] Facility:Infectious Disease Start: 10-26-2023 End: 10-26-2023 ambulatory Pavel Rodriges MD Facility:[facility] Start: 10-26-2023 End: 10-26-2023 ambulatory Tejas Richardson DO Facility:Infectious Disease Start: 08-22-2023 End: 08-22-2023 ambulatory TEJAS RICHARDSON JR [facility] Start: 08-15-2023 End: 09-14-2023 ambulatory [facility] Start: 07-18-2023 End: 08-15-2023 ambulatory [facility] Start: 03-06-2020 End: 03-07-2020 Patient encounter procedure PEREZ LESTER Facility: Start: 04-27-2018 End: 04-28-2018 Patient encounter procedure PROVIDER UNKNOWN Facility:[facility] Start: 02-10-2018 End: 02-13-2018 Patient encounter MAGED ETLLEZAHAM [facility] Start: 01-10-2018 End: 01-11-2018 Patient encounter MONICA YAN [facility] Start: 12-08-2017 End: 12-09-2017 Patient encounter MAGED TELLEZAHAM [facility] Procedures Date Procedure Procedure Detail Performing Clinician Start: 03-06-2020 End: 03-06-2020 Microscopic examination of blood, culture PEREZ LESTER Comment on above: Performed By: #### D RUGRPD #### [facility] [address] [place] [address] Christian Degroot Payers Date Payer Category Payer Unknown 2022 Unknown [id number] 1970 Unknown [id number] .. [id number] 1970 Unknown [id number] 2.16.84 0.1.920103.3.579.2.593 1970 Unknown [id number] 2.. 840.1.482584.3.579.2.196 1970 Unknown [id number] 2.16. 840.1.923225.3.579.2.196 1970 Unknown [id number] 2.16. 840.1.848066.3.579.2.196 1970 Unknown [id number] .16.8 40.1.211950.3.579.2.1286 1970 Unknown [id number] 2.16.8 40.1.552537.3.579.2.1285 1970 Unknown [id number] 2.16.8 40.1.843979.3.579.2.1285 1970 Unknown [id number] 2.16.8 40.1.999204.3.579.2.1285 1970 Unknown [id number] .16.8 40.1.054056.3.579.2.1285 1970 Unknown [id number] .16.8 40.1.560161.3.579.2.1285 1969 Unknown [id number] 2.16.8 40.1.794162.3.579.2.1285 1969 Unknown [id number] .16.8 40.1.177794.3.579.2.1285 1969 Unknown [id number] .16.8 40.1.587707.3.579.2.128 1969 Unknown [id number] .16.8 40.1.609043.3.579.2.1285 1969 Unknown [id number] .16.8 40.1.962271.3.579.2.128 1969 Unknown [id number] .16.8 40.1.423625.3.579.2.1285 1969 Unknown [id number] .16.8 40.1.520538.3.579.2.128 1969 Unknown [id number] .16.8 40.1.572592.3.579.2.1285 1969 Unknown [id number] .16.8 40.1.547837.3.579.2.1286 1959 Unknown [id number] Unknown [id number] Social History Date Type Detail Facility Tobacco smoking stat [facility] Unknown if ever smoked [facility] Work Phone: Start: 1970 Sex Assigned At Female F [facility] Evaluation note Note Date & Type Note Facility Evaluation note No assessment information availa [facility] Work Phone: Summary Purpose Family History No Family History Records FoundNo Family History Records FoundNo Family History Records FoundNo Family History Records FoundNo Family History Records FoundNo Family History Records Found Advance Directives No Advanced Directives Records Found Advance Directive Response Recorded Date/ Time Advance Directives No November 27 3:35pm Additional Source Comments INFORMATION SOURCE (unrecogn ized section and content) DATE CREATED AUTHOR 04/03/2018 [facility] DATE CREATED AUTHOR AUTHOR'S ORGANIZ ATION 05/03/2018 [facility] DATE CREATED AUTHOR AUTHOR'S ORGANIZ ATION 04/09/2020 [facility] DATE CREATED AUTHOR AUTHOR'S ORGANIZ ATION 11/17/2023 [facility] DATE CREATED AUTHOR AUTHOR'S ORGANIZ ATION 04/07/2024 [facility] DATE CREATED AUTHOR AUTHOR'S ORGANIZ ATION 04/28/2024 [facility] Care Teams (unrecognized sec tion and content) Team Status: Active Member Role Status Dates Tejas Richardson JR DO Primary Care Provider Active Team Status: Inactive Member Role Status Dates Tejas Richardson JR DO Primary Care Provider Active Start: March 15, 2024 End: March 15, 2024 Fela Roman MD Attending Provider Active Sta rt: March 15, 2024 End: March 15, 2024 Goals (unrecognized section and content) Goals may be documented in a n alternate section FOR RECORDS PERTAINING TO PATIENTS WHO ARE [...] BE BASED ON THE PRIMARY CLINICAL RECORDS. [facility]. provides no warranty or guarantee of the accuracy or completeness of information in this document.
--- NOTE | 2024-06-11 14:10 | PM.CN ---
Consult Note: HPI Data of Consult Patient: new to practice Consult date: 06/11/24 Requesting Physician: Christian Jameson MD Primary Care Provider: ULYSSES RICHARDSON DO Consult Narrative Reason for consult: low back, left leg pain Narrative: 54yof who presents for evaluation. low back pain with radiation into left lower extremity. imaging shows multilevel degnerative changes, stenosis, fusion at l3-4. fusion performed last year, had infection and reoperated last year. has engaged in a series of provider directed home exercises >6 weeks, without lasting benefit. says current pain is similar to pain prior to surgery, but had not undergone interventional modalities prior to surgery. denies adverse med side effects. cc:: CC: Christian Jameson MD Review of Systems ROS Status of ROS 10 or more systems reviewed and unremarkable except as noted in history and below PFSH [facility] Medical History DDD (degenerative disc disease) Osteopenia ?M85.80 - Other specified disorders of bone density and structure, unspecified site (ICD-10) Back pain ?M54.9 - Dorsalgia, unspecified (ICD-10) Depression ?F32.A - Depression, unspecified (ICD-10) Spinal stenosis ?M48.00 - Spinal stenosis, site unspecified (ICD-10) Neuropathy ?G62.9 - Polyneuropathy, unspecified (ICD-10) Migraine ?G43.909 - Migraine, unspecified, not intractable, without status migrainosus (ICD-10) GERD (gastroesophageal reflux disease) ?K21.9 - Gastro-esophageal reflux disease without esophagitis (ICD-10) Delayed recovery from anesthesia Menopause ?Z78.0 - Asymptomatic menopausal state (ICD-10) Surgical History S/P insertion of intrathecal pump ?Z98.890 - Other specified postprocedural states (ICD-10) S/P cervical spinal fusion ?Z98.1 - Arthrodesis status (ICD-10) Family History Other Family history of colon cancer Family history of diabetes mellitus Social History Within the past year, how often did you have a drink containing alcohol: never Score interpretation: A score less than 3 is consistent with normal alcohol consumption. Smoking status: Current every day smoker What tobacco products do you use: cigarettes Packs per day: 1 Years smoked: 39 Smoking pack-years: 39.00 Non-prescribed substance use: denies use Highest level of school completed/degree received: high school graduate Meds Home Medications and Allergies Home Medications ?Medication ?Instructions ?Recorded ?Confirmed ?Type duloxetine 60 mg capsule,delayed 60 mg PO DAILY 08/17/23 09/02/23 History release (Cymbalta) hydromorphone 1 mg/mL injection 1 mg Q2H 08/17/23 History solution rosuvastatin 5 mg tablet (Crestor) 5 mg PO DAILY 08/17/23 09/02/23 History celecoxib 200 mg capsule (Celebrex) 200 mg PO BID #60 caps 06/11/24 Rx cyclobenzaprine 10 mg tablet 10 mg PO TID PRN muscle spasm #60 06/11/24 Rx tabs gabapentin enacarbil 600 mg 600 mg PO DAILY 06/11/24 06/11/24 History tablet,extended release ([facility]) Allergies Allergy/AdvReac Type Severity Reaction Status Date / Time morphine AdvReac overdose Verified 08/17/23 11:10 Exam Narrative Exam Narrative: Psych-alert and oriented x 3. Attentive and appropriate, constitutionally normal, displays normal mood and affect per situation. There are no obvious deficits in memory, reasoning, or intellect.? Skin-no obvious rashes, bruising, erythema noted to the patient's area of pain.? Extremities- extremities are warm with minimal edema and palpable pulses. Lumbar-tenderness to palpation noted in the lumbar spine and paraspinal musculature. Pain is elicited with flexion, extension, and lateral rotation of the lumbar spine. Range of motion is diminished with these motions. Facet loading maneuvers are positive. Strength-noted to be unremarkable with the exception of decreased strength rated at 4 out of 5 in left quadriceps femoris, anterior tibialis. Sensory-no notable sensory deficits in the bilateral lower extremities to touch or pinprick in all dermatomal distributions with the exception to decreased sensation to the left L3, 4, 5 dermatomal distribution. Sacroiliac - tender to palpation over left PSIS. Positive Melquiades's on the left. Positive thigh thrust on the left. Coordination remains intact.? Gait remains non-antalgic. Assessment and Plan Assessment and Plan (1) Lumbar stenosis with neurogenic claudication: (2) Lumbar spondylosis: (3) Sacroiliac joint dysfunction of left side: (4) Lumbar postlaminectomy syndrome: Plan 54yof who presents for evaluation. failed conservative measures, as noted. imaging reviewed, as noted. given symptoms and imaging, prudent to attempt left l3-4, l4-5 tfesi under fluoroscopic guidance. may even benefit from left sij injection under fluoroscopic guidance. she is in agreement. meds reviewed, will trial celebrex 200mg bid prn. follow up after procedure.
== END 2024-06-11 12:45 | disposition home or self-care (01) ==
PROVIDERS: PCP Internal Medicine; Visit Provider Anesthesiology
DX: M48.062 Spinal stenosis, lumbar region with neurogenic claudication (principal); M47.816 Spondylosis without myelopathy or radiculopathy, lumbar region; M53.3 Sacrococcygeal disorders, not elsewhere classified; M96.1 Postlaminectomy syndrome, not elsewhere classified
CPT/HCPCS: G0463

== ENCOUNTER 2024-06-25 08:32 | Day surgery (SDC) | payer OTHER, SELFPAY ==
--- OUTSIDE RECORDS SUMMARY | 2024-06-25 08:45 | XMS_ITS | CCD ---
Author Organization [facility] Care Team Providers Care Tip Cementer Name Role Phone MAGED MURDOCK Unavailable Unavailable LINDSEY AGUILAR (PA) Unavailable Unavail able MONICA YAN (TRUCK ENGINE TECHNICIAN) Unavailable Unavailabl e TEJAS RICHARDSON JR Unavailable Unavail able MAGED MURDOCK Unavailable Unavailable LINDSEY AGUILAR (PA) Unavailable Unavail able UNKNOWN, PROVIDER Unavailable Unavailable UNKNOWN, PROVIDER Unavailable Unavailable ALYSSAONE, TEJAS Unavailable Unavailable ALYSSAONE, TEJAS Unavailable Unavailable PEREZ LESTER Admitting Unavailable ALYSSAONE TEJAS Primary Care Unavailable AZAR MAN Consulting Unavailable PEREZ LESTER Attending Unavailable PEREZ LESTER Consulting Unavailable MAT CASEY Consulting Unavailable Fela Smith Consulting Unavailable WALI BUSTILLOS Consulting Unavailable SHAIKH SALES Consulting Unavailable CALEB, SELVON Referring Unavailable VALONE JR, TEJAS L Primary Care Unavailable CALEB, SELVON Referring Unavailable VALONE JR, TEJAS L Primary [...] VALONE JR, TEJAS L Primary Care Unavailable BLANK, FELA S Referring Unavailable VALONE JR, TEJAS L Primary Care Unavailable BLANK, FELA S Referring Unavailable VALONE JR, TEJAS L Primary Care Unavailable JONATHAN CRUZ Referring Unavailabl e VALONE JR, TEJAS L Primary Care Unavailable PHYSICIAN, UNKNOWN Referring Unavailable VALONE JR, TEJAS L Primary Care Unavailable BLANK, FELA S Referring Unavailable VALONE JR, TEJAS L Primary Care Unavailable PHYSICIAN, UNKNOWN Referring Unavailable VALONE JR, TEJAS L Primary Care Unavailable BLANK, FELA S Referring Unavailable VALONE JR, TEJAS L Primary Care Unavailable BLANK, FELA S Referring Unavailable VALONE JR, TEJAS L Primary Care Unavailable Ratnasamy MD, Pavel Carr Attending Unavailable [facility] CHONG, Nicole Neri Referring Unavailabl e [facility] Unavail able Yeison HENDRICKS, Hanane Finn Attending U navailable [facility] Unavail able Gisell CHONG, Christian Singletary Attending Unavailable [facility] Unavail able Zahira CHONG, Pavel Carr Attending Unavailable [facility] Unavail able Allergies Allergy Classification Reported Allergen(s) [...] width (RBC) [Ratio] 16.6 % High 11.5-15.0 [facility] Comment on above: Performed By: #### C KJ, INSURANCE RISK ANALYST #### [facility] ([id number]) [address], [address] [place] [address] Hematocrit (Bld) [Volume fraction] 40.9 % Normal 35-47 [facility] Comment on above: Performed By: #### C BC, INSURANCE RISK ANALYST #### [facility] ([id number]) [address], [facility] [address] [place] [address] Hemoglobin (Bld) [Mass/Vol] 13.5 g/dL Normal 11.7-15.5 [facility] Comment on above: Performed By: #### C BC, INSURANCE RISK ANALYST #### [facility] ([id number]) [address], [facility] [address] [place] [address] MCH (RBC) [Entitic mass] 32.0 pg Normal 27-34 [facility] Comment on above: Performed By: #### C KJ, INSURANCE RISK ANALYST #### [facility] ([id number]) [address], [address] [place] [address] MCHC (RBC) [Mass/Vol] 33.1 g/dL Normal 32-36 [facility] Comment on above: Performed By: #### C KJ, INSURANCE RISK ANALYST #### [facility] ([id number]) [address], [facility] [address] [place] [address] MCV (RBC) [Entitic vol] 97 fL Normal 80-100 [facility] Comment on above: Performed By: #### C KJ, INSURANCE RISK ANALYST #### [facility] ([id number]) [address], [facility] [address] [place] [address] Platelet mean volume (Bld) [Entitic vol] 8.8 fL Normal 7-12 [facility] Comment on above: Performed By: #### C KJ, INSURANCE RISK ANALYST #### [facility] ([id number]) [address], [facility] [address] [place] [address] Platelets (Bld) [#/Vol] 328 10*3/uL Normal 150-450 [facility] Comment on above: Performed By: #### C KJ, INSURANCE RISK ANALYST #### [facility] ([id number]) [address], [facility] [address] [place] [address] RBC COUNT 4.23 X10E12/L Normal 3.80-5.20 [facility] Comment on above: Performed By: #### C KJ, INSURANCE RISK ANALYST #### [facility] ([id number]) [address] [address] [place] [address] WBC (Bld) [#/Vol] 9.0 10*3/uL Normal 4.0-11.0 [facility] Comment on above: Performed By: #### C KJ, INSURANCE RISK ANALYST #### [facility] ([id number]) [address] [address] CREATININEon 04-24-2024 Creatinine [Mass/Vol] 0.72 mg/dL Normal 0.40-1.00 [facility] Comment on above: Result Comment: METH OD TRACEABLE TO IDMS STANDARD Performed By: #### C BC, INSURANCE RISK ANALYST #### [facility] ([id number]) [address] [address] eGFR (CKD-EPI) NON-RACE DEPENDENT >90 Normal >59 [facility] Comment on above: Result Comment: Reported eGFR is based on the CKD-EPI 2020 equation that does not use a race coefficient. Performed By: #### C KJ, INSURANCE RISK ANALYST #### [facility] ([id number]) [address] [address] COMPLETE BLOOD COUNTon 04-11 Erythrocyte distribution width (RBC) [Ratio] 16.9 % High 11.5-15.0 [facility] Comment on above: Performed By: #### C KJ, INSURANCE RISK ANALYST #### [facility] ([id number]) [address] [address] Hematocrit (Bld) [Volume fraction] 41.0 % Normal 35-47 [facility] Comment on above: Performed By: #### C KJ, INSURANCE RISK ANALYST #### [facility] ([id number]) [address] [address] Hemoglobin (Bld) [Mass/Vol] 13.8 g/dL Normal 11.7-15.5 [facility] Comment on above: Performed By: #### C BC, INSURANCE RISK ANALYST #### [facility] ([id number]) [address] [address] MCH (RBC) [Entitic mass] 32.3 pg Normal 27-34 [facility] Comment on above: Performed By: #### C BC, INSURANCE RISK ANALYST #### [facility] ([id number]) [address], [address] [place] [address] MCHC (RBC) [Mass/Vol] 33.5 g/dL Normal 32-36 [facility] Comment on above: Performed By: #### C BC, INSURANCE RISK ANALYST #### [facility] ([id number]) [address], [facility] [address] [place] [address] MCV (RBC) [Entitic vol] 96 fL Normal 80-100 [facility] Comment on above: Performed By: #### C KJ, INSURANCE RISK ANALYST #### [facility] ([id number]) [address], [facility] [address] [place] [address] Platelet mean volume (Bld) [Entitic vol] 9.1 fL Normal 7-12 [facility] Comment on above: Performed By: #### C KJ, INSURANCE RISK ANALYST #### [facility] ([id number]) [address] [address] [place] [address] Platelets (Bld) [#/Vol] 291 10*3/uL Normal 150-450 [facility] Comment on above: Performed By: #### C KJ, INSURANCE RISK ANALYST #### [facility] ([id number]) [address] [address] [place] [address] RBC COUNT 4.27 X10E12/L Normal 3.80-5.20 [facility] Comment on above: Performed By: #### C KJ, INSURANCE RISK ANALYST #### [facility] ([id number]) [address] [address] [place] [address] WBC (Bld) [#/Vol] 8.9 10*3/uL Normal 4.0-11.0 [facility] Comment on above: Performed By: #### C KJ, INSURANCE RISK ANALYST #### [facility] ([id number]) [address], [address] [place] [address] CREATININEon 04-11-2024 Creatinine [Mass/Vol] 0.73 mg/dL Normal 0.40-1.00 [facility] Comment on above: Result Comment: METH OD TRACEABLE TO IDMS STANDARD Performed By: #### C KJ, INSURANCE RISK ANALYST #### [facility] ([id number]) [address] [place] [address] eGFR (CKD-EPI) NON-RACE DEPENDENT >90 Normal >59 [facility] Comment on above: Result Comment: Reported eGFR is based on the CKD-EPI 2020 equation that does not use a race coefficient. Performed By: #### C KJ, INSURANCE RISK ANALYST #### [facility] ([id number]) [address], [facility] [address] [place] [address] ASPIRATE CULTUREon Bacteria identified Aer cx Nom [...] <=1 F PIPERACIL/TAZOBACTAM S <=4 F Susceptible [facility] Comment on above: Performed By: #### 5 97-5 #### [facility] ([id number]) [address] [place] [address] COMPLETE BLOOD COUNTon 04-04 Erythrocyte distribution width (RBC) [Ratio] 16.6 % High 11.5-15.0 [facility] Comment on above: Performed By: #### C VAN, [facility], 1987-, 39067-4 #### [facility] ([id number]) [address], [address] [place] [address] Hematocrit (Bld) [Volume fraction] 37.5 % Normal 35-47 [facility] Comment on above: Performed By: #### C VAN, [facility], 1988-09, 34532-7 #### [facility] ([id number]) [address], [address] [place] [address] Hemoglobin (Bld) [Mass/Vol] 12.7 g/dL Normal 11.7-15.5 [facility] Comment on above: Performed By: #### Jacqueline ARAUJO [facility], 1988-09, 14637-6 #### [facility] ([id number]) [address], [address] [place] [address] MCH (RBC) [Entitic mass] 31.6 pg Normal 27-34 [facility] Comment on above: Performed By: #### Jacqueline ARAUJO [facility], 1988-09, 02645-7 #### [facility] ([id number]) [address], [address] [place] [address] MCHC (RBC) [Mass/Vol] 33.8 g/dL Normal 32-36 [facility] Comment on above: Performed By: #### Jacqueline ARAUJO [facility], 1988-09, 72393-5 #### [facility] ([id number]) [address], [address] [place] [address] MCV (RBC) [Entitic vol] 94 fL Normal 80-100 [facility] Comment on above: Performed By: #### Jacqueline ARAUJO [facility], 1988-09, 01339-5 #### [facility] ([id number]) [address], [address] [place] [address] Platelet mean volume (Bld) [Entitic vol] 8.9 fL Normal 7-12 [facility] Comment on above: Performed By: #### Jacqueline ARAUJO [facility], 1988-09, 93196-9 #### [facility] ([id number]) [address], [address] [place] [address] Platelets (Bld) [#/Vol] 230 10*3/uL Normal 150-450 [facility] Comment on above: Performed By: #### C ARANZA ARAUJO, 1988-09, 94549-3 #### [facility] ([id number]) [address], [facility] [address] [place] [address] RBC COUNT 4.01 X10E12/L Normal 3.80-5.20 [facility] Comment on above: Performed By: #### Jacqueline ARAUJO CMP, 1988-09, 82062-7 #### [facility] ([id number]) [address], [facility] [address] [place] [address] WBC (Bld) [#/Vol] 9.1 10*3/uL Normal 4.0-11.0 [facility] Comment on above: Performed By: #### Jacqueline ARAUJO CMP, 1988-09, 38917-4 #### [facility] ([id number]) [address], [facility] [address] [place] [address] CREATININEon 04-04-2024 Creatinine [Mass/Vol] 0.60 mg/dL Normal 0.40-1.00 [facility] Comment on above: Result Comment: METH OD TRACEABLE TO IDMS STANDARD Performed By: #### Jacqueline ARAUJO CMP, 1988-09, 46444-0 #### [facility] ([id number]) [address], [facility] [address] [place] [address] eGFR (CKD-EPI) NON-RACE DEPENDENT >90 Normal >59 [facility] Comment on above: Result Comment: Reported eGFR is based on the CKD-EPI 2020 equation that does not use a race coefficient. Performed By: #### Jacqueline ARAUJO CMP, 1988-09, 95624-2 #### [facility] ([id number]) [address] [address] [place] [address] COMPLETE BLOOD COUNTon 03-27 Erythrocyte distribution width (RBC) [Ratio] 17.2 % High 11.5-15.0 [facility] Comment on above: Performed By: #### Jacqueline ARAUJO CMP, 1988-09, 60689-7 #### [facility] ([id number]) [address], [address] [place] [address] Hematocrit (Bld) [Volume fraction] 40.0 % Normal 35-47 [facility] Comment on above: Performed By: #### Jacqueline ARAUJO [facility], 1988-09, 96472-7 #### [facility] ([id number]) [address], [address] [place] [address] Hemoglobin (Bld) [Mass/Vol] 13.5 g/dL Normal 11.7-15.5 [facility] Comment on above: Performed By: #### Jacqueline ARAUJO [facility], 1988-09, 35778-2 #### [facility] ([id number]) [address], [address] [place] [address] MCH (RBC) [Entitic mass] 31.7 pg Normal 27-34 [facility] Comment on above: Performed By: #### Jacqueline ARAUJO [facility], 1988-09, 22638-4 #### [facility] ([id number]) [address], [address] [place] [address] MCHC (RBC) [Mass/Vol] 33.7 g/dL Normal 32-36 [facility] Comment on above: Performed By: #### Jacqueline ARAUJO [facility], 20828-4 #### [facility] ([id number]) [address], [address] [place] [address] MCV (RBC) [Entitic vol] 94 fL Normal 80-100 [facility] Comment on above: Performed By: #### Jacqueline ARAUJO [facility], 1987-09, 84222-7 #### [facility] ([id number]) [address], [address] [place] [address] Platelet mean volume (Bld) [Entitic vol] 8.5 fL Normal 7-12 [facility] Comment on above: Performed By: #### C ARANZA ARAUJO, 1988-09, 42254-7 #### [facility] ([id number]) [address], [address] [place] [address] Platelets (Bld) [#/Vol] 332 10*3/uL Normal 150-450 [facility] Comment on above: Performed By: #### C ARANZA ARAUJO, 1988-09, 95621-2 #### [facility] ([id number]) [address], [address] [place] [address] RBC COUNT 4.26 X10E12/L Normal 3.80-5.20 [facility] Comment on above: Performed By: #### Jacqueline ARAUJO [facility], 1988-09, 35325-9 #### [facility] ([id number]) [address] [address] [place] [address] WBC (Bld) [#/Vol] 10.4 10*3/uL Normal 4.0-11.0 [facility] Comment on above: Performed By: #### C VAN [facility], 1987-09, 49582-5 #### [facility] ([id number]) [address], [facility] [address] [place] [address] CREATININEon 03-27-2024 Creatinine [Mass/Vol] 0.69 mg/dL Normal 0.40-1.00 [facility] Comment on above: Result Comment: METH OD TRACEABLE TO IDMS STANDARD Performed By: #### Jacqueline ARAUJO CMP, 1988-09, 83803-3 #### [facility] ([id number]) [address], [address] [place] [address] eGFR (CKD-EPI) NON-RACE DEPENDENT >90 Normal >59 [facility] Comment on above: Result Comment: Reported eGFR is based on the CKD-EPI 2020 equation that does not use a race coefficient. Performed By: #### C ARANZA ARAUJO, 1988-09, 89461-9 #### [facility] ([id number]) [address] [place] [address] COMPLETE BLOOD COUNTon 03-20 Erythrocyte distribution width (RBC) [Ratio] 19.0 % High 11.5-15.0 [facility] Comment on above: Performed By: #### C KJ, INSURANCE RISK ANALYST #### [facility] ([id number]) [address] [place] [address] Hematocrit (Bld) [Volume fraction] 37.9 % Normal 35-47 [facility] Comment on above: Performed By: #### C KJ, INSURANCE RISK ANALYST #### [facility] ([id number]) [address], [address] [place] [address] Hemoglobin (Bld) [Mass/Vol] 12.6 g/dL Normal 11.7-15.5 [facility] Comment on above: Performed By: #### C KJ, INSURANCE RISK ANALYST #### [facility] ([id number]) [address], [address] [place] [address] MCH (RBC) [Entitic mass] 31.8 pg Normal 27-34 [facility] Comment on above: Performed By: #### C KJ, INSURANCE RISK ANALYST #### [facility] ([id number]) [address] [place] [address] MCHC (RBC) [Mass/Vol] 33.2 g/dL Normal 32-36 [facility] Comment on above: Performed By: #### C KJ, INSURANCE RISK ANALYST #### [facility] ([id number]) [address], [address] [place] [address] MCV (RBC) [Entitic vol] 96 fL Normal 80-100 [facility] Comment on above: Performed By: #### C BC, INSURANCE RISK ANALYST #### [facility] ([id number]) [address], [address] [place] [address] Platelet mean volume (Bld) [Entitic vol] 8.4 fL Normal 7-12 [facility] Comment on above: Performed By: #### C KJ, INSURANCE RISK ANALYST #### [facility] ([id number]) [address] [address] Platelets (Bld) [#/Vol] 343 10*3/uL Normal 150-450 [facility] Comment on above: Performed By: #### C KJ, INSURANCE RISK ANALYST #### [facility] ([id number]) [address] [address] RBC COUNT 3.95 X10E12/L Normal 3.80-5.20 [facility] Comment on above: Performed By: #### C KJ, INSURANCE RISK ANALYST #### [facility] ([id number]) [address] [address] WBC (Bld) [#/Vol] 7.6 10*3/uL Normal 4.0-11.0 [facility] Comment on above: Performed By: #### C KJ, INSURANCE RISK ANALYST #### [facility] ([id number]) [address] [address] CREATININEon 03-20-2024 Creatinine [Mass/Vol] 0.70 mg/dL Normal 0.40-1.00 [facility] Comment on above: Result Comment: METH OD TRACEABLE TO IDMS STANDARD Performed By: #### C KJ, INSURANCE RISK ANALYST #### [facility] ([id number]) [address] [address] eGFR (CKD-EPI) NON-RACE DEPENDENT >90 Normal >59 [facility] Comment on above: Result Comment: Reported eGFR is based on the CKD-EPI 2020 equation that does not use a race coefficient. Performed By: #### C KJ, INSURANCE RISK ANALYST #### [facility] ([id number]) [address] [address] CBC AND AUTO DIFFon 11-01-20 24 ABSOLUTE BASOPHIL 0.0 X10E9/L Normal 0.0-0.2 [facility] Comment on above: Performed By: #### Jacqueline ARAUJO [facility], 1987-09 #### [facility] ([id number]) [address], [address] [place] [address] ABSOLUTE NEUTROPHIL 5.5 X10E9/L Normal 1.5-6.6 [facility] Comment on above: Performed By: #### Jacqueline ARAUJO CMP, 1988-09 #### [facility] ([id number]) [address], [facility] [address] [place] [address] Basophils/100 WBC (Bld) 0.4 % Normal [facility] Comment on above: Performed By: #### Jacqueline ARAUJO [facility], 1987-09 #### [facility] ([id number]) [address] [place] [address] Eosinophils (Bld) [#/Vol] 0.1 10*3/uL Normal 0.0-0.4 [facility] Comment on above: Performed By: #### Jacqueline ARAUJO [facility], 1987-09 #### [facility] ([id number]) [address] [place] [address] Eosinophils/100 WBC (Bld) 1.9 % Normal [facility] Comment on above: Performed By: #### Jacqueline ARAUJO [facility], 1987-09 #### [facility] ([id number]) [address] [place] [address] Erythrocyte distribution width (RBC) [Ratio] 18.1 % High 11.5-15.0 [facility] Comment on above: Performed By: #### Jacqueline ARAUJO CMP, 1988-09 #### [facility] ([id number]) [address] [place] [address] Hematocrit (Bld) [Volume fraction] 39.2 % Normal 35-47 [facility] Comment on above: Performed By: #### Jacqueline ARAUJO CMP, 1988-09 #### [facility] ([id number]) [address] [place] [address] Hemoglobin (Bld) [Mass/Vol] 13.4 g/dL Normal 11.7-15.5 [facility] Comment on above: Performed By: #### Jacqueline ARAUJO CMP, 1988-09 #### [facility] ([id number]) [address] [place] [address] Lymphocytes (Bld) [#/Vol] 1.7 10*3/uL Normal 1.0-3.5 [facility] Comment on above: Performed By: #### Jacqueline ARAUJO CMP, 1988-09 #### [facility] ([id number]) [address] [place] [address] Lymphocytes/100 WBC (Bld) 22.1 % Normal [facility] Comment on above: Performed By: #### Jacqueline ARAUJO [facility], 1987-09 #### [facility] ([id number]) [address] [place] [address] MCH (RBC) [Entitic mass] 32.2 pg Normal 27-34 [facility] Comment on above: Performed By: #### Jacqueline ARAUJO CMP, 1988-09 #### [facility] ([id number]) [address] [place] [address] MCHC (RBC) [Mass/Vol] 34.2 g/dL Normal 32-36 [facility] Comment on above: Performed By: #### Jacqueline ARAUJO CMP, 1987-09 #### [facility] ([id number]) [address] [place] [address] MCV (RBC) [Entitic vol] 94 fL Normal 80-100 [facility] Comment on above: Performed By: #### Jacqueline ARAUJO CMP, 1987-09 #### [facility] ([id number]) [address], [address] [place] [address] Monocytes (Bld) [#/Vol] 0.5 10*3/uL Normal 0-0.9 [facility] Comment on above: Performed By: #### Jacqueline ARAUJO CMP, 1987-09 #### [facility] ([id number]) [address], [address] [place] [address] Monocytes/100 WBC (Bld) 6.5 % Normal [facility] Comment on above: Performed By: #### Jacqueline ARAUJO CMP, 1987-09 #### [facility] ([id number]) [address], [address] [place] [address] Neutrophils/100 WBC (Bld) 69.1 % Normal [facility] Comment on above: Performed By: #### Jacqueline ARAUJO CMP, 1987-09 #### [facility] ([id number]) [address], [address] [place] [address] Platelet mean volume (Bld) [Entitic vol] 8.1 fL Normal 7-12 [facility] Comment on above: Performed By: #### Jacqueline ARAUJO CMP, 1987-09 #### [facility] ([id number]) [address], [address] [place] [address] Platelets (Bld) [#/Vol] 358 10*3/uL Normal 150-450 [facility] Comment on above: Performed By: #### Jacqueline ARAUJO CMP, 1987-09 #### [facility] ([id number]) [address], [address] [place] [address] RBC COUNT 4.17 X10E12/L Normal 3.80-5.20 [facility] Comment on above: Performed By: #### Jacqueline ARAUJO CMP, 1987-09 #### [facility] ([id number]) [address], [address] [place] [address] WBC (Bld) [#/Vol] 7.9 10*3/uL Normal 4.0-11.0 [facility] Comment on above: Performed By: #### C ARANZA ARAUJO, 1987-09 #### [facility] ([id number]) [address], [address] [place] [address] COMPREHENSIVE METABOLIC PANE Alexandru 03-16-2024 Albumin [Mass/Vol] 3.4 g/dL Normal 3.2-5.3 [facility] Comment on above: Performed By: #### Jacqueline ARAUJO CMP, 1987-09 #### [facility] ([id number]) [address], [address] [place] [address] ALP [Catalytic activity/Vol] 52 U/L Normal 39-130 [facility] Comment on above: Performed By: #### Jacqueline ARAUJO CMP, 1987-09 #### [facility] ([id number]) [address], [address] [place] [address] ALT [Catalytic activity/Vol] 12 U/L Normal 0-31 [facility] Comment on above: Performed By: #### Jacquelnie ARAUJO CMP, 1987-09 #### [facility] ([id number]) [address], [address] [place] [address] Anion gap [Moles/Vol] 11 mmol/L Normal 5-15 [facility] Comment on above: Performed By: #### Jacqueline ARAUJO CMP, 1987-09 #### [facility] ([id number]) [address], [address] [place] [address] AST [Catalytic activity/Vol] 17 U/L Normal 0-41 [facility] Comment on above: Performed By: #### Jacqueline ARAUJO CMP, 1987-09 #### [facility] ([id number]) [address], [address] [place] [address] Bilirubin [Mass/Vol] 0.4 mg/dL Normal 0.3-1.2 [facility] Comment on above: Performed By: #### C ARANZA ARAUJO, 1987-09 #### [facility] ([id number]) [address] [place] [address] Calcium [Mass/Vol] 9.7 mg/dL Normal 8.5-10.5 [facility] Comment on above: Performed By: #### Jacqueline ARAUJO CMP, 1987-09 #### [facility] ([id number]) [address], [facility] [address] [place] [address] Chloride [Moles/Vol] 109 mmol/L Normal 98-109 [facility] Comment on above: Performed By: #### C ARANZA ARAUJO, 1987-09 #### [facility] ([id number]) [address] [place] [address] CO2 [Moles/Vol] 20 mmol/L Low 22-32 [facility] Comment on above: Performed By: #### Jacqueline ARAUJO CMP, 1987-09 #### [facility] ([id number]) [address], [facility] [address] [place] [address] Creatinine [Mass/Vol] 0.75 mg/dL Normal 0.40-1.00 [facility] Comment on above: Result Comment: METH OD TRACEABLE TO IDMS STANDARD Performed By: #### Jacqueline ARAUJO CMP, 1987-09 #### [facility] ([id number]) [address] [place] [address] eGFR (CKD-EPI) NON-RACE DEPENDENT >90 Normal >59 [facility] Comment on above: Result Comment: Reported eGFR is based on the CKD-EPI 2020 equation that does not use a race coefficient. Performed By: #### C ARANZA ARAUJO, 1987-09 #### [facility] ([id number]) [address] [address] [place] [address] Glucose [Mass/Vol] 88 mg/dL Normal 65-99 [facility] Comment on above: Performed By: #### C ARANZA ARAUJO, 1987-09 #### [facility] ([id number]) [address], [address] [place] [address] Potassium [Moles/Vol] 3.9 mmol/L Normal 3.5-5.0 [facility] Comment on above: Performed By: #### Jacqueline ARAUJO CMP, 1987-09 #### [facility] ([id number]) [address], [address] [place] [address] Protein [Mass/Vol] 6.4 g/dL Normal 6.0-8.0 [facility] Comment on above: Performed By: #### Jacqueline ARAUJO CMP, 1987-09 #### [facility] ([id number]) [address] [place] [address] Sodium [Moles/Vol] 140 mmol/L Normal 134-146 [facility] Comment on above: Performed By: #### Jacqueline ARAUJO CMP, 1987-09 #### [facility] ([id number]) [address], [address] [place] [address] Urea nitrogen [Mass/Vol] 9 mg/dL Normal 5-23 [facility] Comment on above: Performed By: #### Jacqueline ARAUJO CMP, 1987-09 #### [facility] ([id number]) [address], [address] [place] [address] CRP [Mass/Vol]on 03-16-2024 C REACTIVE PROTEIN 0.6 mg/dL Normal 0.000-0.744 [facility] Comment on above: Performed By: #### Jacqueline ARAUJO CMP, 1987-09 #### [facility] ([id number]) [address] [place] [address] BLOOD CULTUREon 03-13-2024 Bacteria identified Aer cx Nom (Bld) CULTURE RESULTS NO GROWTH 5 DAYS Normal [facility] Bacteria identified Aer cx Nom (Bld) CULTURE RESULTS NO GROWTH 5 DAYS Normal [facility] CBC AND AUTO DIFFon 03-13-20 ABSOLUTE BASOPHIL 0.0 X10E9/L Normal 0.0-0.2 [facility] Comment on above: Performed By: #### Jacqueline ARAUJO [facility], 1987-09, 63052-6 #### [facility] ([id number]) [address] [place] [address] ABSOLUTE NEUTROPHIL 5.4 X10E9/L Normal 1.5-6.6 [facility] Comment on above: Performed By: #### Jacqueline ARAUJO [facility], 1987-09, 59705-3 #### [facility] ([id number]) [address], [address] [place] [address] Basophils/100 WBC (Bld) 0.4 % Normal [facility] Comment on above: Performed By: #### Jacqueline ARAUJO [facility], 1987-09, 86177-6 #### [facility] ([id number]) [address], [address] [place] [address] Eosinophils (Bld) [#/Vol] 0.1 10*3/uL Normal 0.0-0.4 [facility] Comment on above: Performed By: #### Jacqueline ARAUJO [facility], 1987-09, 52188-2 #### [facility] ([id number]) [address], [address] [place] [address] Eosinophils/100 WBC (Bld) 1.6 % Normal [facility] Comment on above: Performed By: #### Jacqueline ARAUJO [facility], 1987-09, 73231-6 #### [facility] ([id number]) [address] [place] [address] Erythrocyte distribution width (RBC) [Ratio] 18.4 % High 11.5-15.0 [facility] Comment on above: Performed By: #### Jacqueline ARAUJO [facility], 1987-09, 25048-1 #### [facility] ([id number]) [address], [address] [place] [address] Hematocrit (Bld) [Volume fraction] 39.0 % Normal 35-47 [facility] Comment on above: Performed By: #### Jacqueline ARAUJO [facility], 1987-09, 97358-2 #### [facility] ([id number]) [address], [address] [place] [address] Hemoglobin (Bld) [Mass/Vol] 13.7 g/dL Normal 11.7-15.5 [facility] Comment on above: Performed By: #### Jacqueline ARAUJO [facility], 66717-4 #### [facility] ([id number]) [address], [facility] [address] [place] [address] Lymphocytes (Bld) [#/Vol] 1.9 10*3/uL Normal 1.0-3.5 [facility] Comment on above: Performed By: #### Jacqueline ARAUJO [facility], 98137-1 #### [facility] ([id number]) [address], [facility] [address] [place] [address] Lymphocytes/100 WBC (Bld) 24.0 % Normal [facility] Comment on above: Performed By: #### Jacqueline ARAUJO [facility], 06306-8 #### [facility] ([id number]) [address], [address] [place] [address] MCH (RBC) [Entitic mass] 32.5 pg Normal 27-34 [facility] Comment on above: Performed By: #### Jacqueline ARAUJO [facility], 45161-1 #### [facility] ([id number]) [address], [facility] [address] [place] [address] MCHC (RBC) [Mass/Vol] 35.0 g/dL Normal 32-36 [facility] Comment on above: Performed By: #### Jacqueline ARAUJO [facility], 33967-9 #### [facility] ([id number]) [address], [address] [place] [address] MCV (RBC) [Entitic vol] 93 fL Normal 80-100 [facility] Comment on above: Performed By: #### Jacqueline ARAUJO CMP, 1987-09, 74447-0 #### [facility] ([id number]) [address], [address] [place] [address] Monocytes (Bld) [#/Vol] 0.4 10*3/uL Normal 0-0.9 [facility] Comment on above: Performed By: #### Jacqueline ARAUJO CMP, 1987-09, 00268-6 #### [facility] ([id number]) [address], [address] [place] [address] Monocytes/100 WBC (Bld) 4.7 % Normal [facility] Comment on above: Performed By: #### Jacqueline ARAUJO [facility], 1987-09, 69688-2 #### [facility] ([id number]) [address], [address] [place] [address] Neutrophils/100 WBC (Bld) 69.3 % Normal [facility] Comment on above: Performed By: #### Jacqueline ARAUJO CMP, 1987-09, 95781-1 #### [facility] ([id number]) [address], [address] [place] [address] Platelet mean volume (Bld) [Entitic vol] 7.9 fL Normal 7-12 [facility] Comment on above: Performed By: #### Jacqueline ARAUJO CMP, 1987-09, 11749-5 #### [facility] ([id number]) [address] [place] [address] Platelets (Bld) [#/Vol] 376 10*3/uL Normal 150-450 [facility] Comment on above: Performed By: #### Jacqueline ARAUJO CMP, 1987-09, 36513-1 #### [facility] ([id number]) [address], [address] [place] [address] RBC COUNT 4.20 X10E12/L Normal 3.80-5.20 [facility] Comment on above: Performed By: #### C BCA, CMP, 1987-09, 45485-5 #### [facility] ([id number]) [address], [address] [place] [address] WBC (Bld) [#/Vol] 7.8 10*3/uL Normal 4.0-11.0 [facility] Comment on above: Performed By: #### C VAN, CMP, 1987-09, 73960-7 #### [facility] ([id number]) [address] [place] [address] COMPREHENSIVE METABOLIC PANE Alexandru 03-13-2024 Albumin [Mass/Vol] 3.4 g/dL Normal 3.2-5.3 [facility] Comment on above: Performed By: #### C BCA, CMP, 1987-09, 43955-0 #### [facility] ([id number]) [address] [place] [address] ALP [Catalytic activity/Vol] 57 U/L Normal 39-130 [facility] Comment on above: Performed By: #### C BCA, CMP, 1987-09, 28324-7 #### [facility] ([id number]) [address], [address] [place] [address] ALT [Catalytic activity/Vol] 14 U/L Normal 0-31 [facility] Comment on above: Performed By: #### C BCA, CMP, 1987-09, 78051-7 #### [facility] ([id number]) [address] [place] [address] Anion gap [Moles/Vol] 8 mmol/L Normal 5-15 [facility] Comment on above: Performed By: #### C BCA, CMP, 1987-09, 90575-7 #### [facility] ([id number]) [address], [address] [place] [address] AST [Catalytic activity/Vol] 19 U/L Normal 0-41 [facility] Comment on above: Performed By: #### C BCA, [facility], 1987-09, 94453-3 #### [facility] ([id number]) [address] [place] [address] Bilirubin [Mass/Vol] 0.4 mg/dL Normal 0.3-1.2 [facility] Comment on above: Performed By: #### C BCA, [facility], 1987-09, 13761-3 #### [facility] ([id number]) [address], [address] [place] [address] Calcium [Mass/Vol] 9.3 mg/dL Normal 8.5-10.5 [facility] Comment on above: Performed By: #### C BCA, [facility], 1987-09, 41989-2 #### [facility] ([id number]) [address], [address] [place] [address] Chloride [Moles/Vol] 105 mmol/L Normal 98-109 [facility] Comment on above: Performed By: #### C BCA, CMP, 10897-4 #### [facility] ([id number]) [address] [place] [address] CO2 [Moles/Vol] 28 mmol/L Normal 22-32 [facility] Comment on above: Performed By: #### C BCA, CMP, 1987-09, 74322-0 #### [facility] ([id number]) [address] [place] [address] Creatinine [Mass/Vol] 0.82 mg/dL Normal 0.40-1.00 [facility] Comment on above: Result Comment: METH OD TRACEABLE TO IDMS STANDARD Performed By: #### C ARANZA ARAUJO, 1987-09, 08896-9 #### [facility] ([id number]) [address], [address] [place] [address] GFR/1.73 sq M.predicted among non-blacks MDRD (S/P/Bld) [Vol rate/Area] 84 mL/min/{1.73_m2} Normal >59 [facility] Comment on above: Result Comment: Reported eGFR is based on the CKD-EPI 2020 equation that does not use a race coefficient. Performed By: #### C ARANZA ARAUJO, 62229-7 #### [facility] ([id number]) [address] [place] [address] Glucose [Mass/Vol] 97 mg/dL Normal 65-99 [facility] Comment on above: Performed By: #### Jacqueline ARAUJO CMP, 66138-2 #### [facility] ([id number]) [address] [place] [address] Potassium [Moles/Vol] 3.1 mmol/L Low 3.5-5.0 [facility] Comment on above: Performed By: #### Jacqueline ARAUJO CMP, 36227-2 #### [facility] ([id number]) [address] [place] [address] Protein [Mass/Vol] 6.3 g/dL Normal 6.0-8.0 [facility] Comment on above: Performed By: #### Jacqueline ARAUJO CMP, 71551-7 #### [facility] ([id number]) [address] [place] [address] Sodium [Moles/Vol] 141 mmol/L Normal 134-146 [facility] Comment on above: Performed By: #### Jacqueline ARAUJO CMP, 56886-5 #### [facility] ([id number]) [address], [address] [place] [address] Urea nitrogen [Mass/Vol] 8 mg/dL Normal 5- [facility] Comment on above: Performed By: #### C VAN [facility], 1987-09, 19371-5 #### [facility] ([id number]) [address], [address] [place] [address] CRP [Mass/Vol]on 03-13-2024 C REACTIVE PROTEIN 0.7 mg/dL Normal 0.000-0.744 [facility] Comment on above: Performed By: #### Jacqueline ARAUJO [facility], 1987-09, 54521-3 #### [facility] ([id number]) [address] [place] [address] ESR Photometric method (Bld) [Velocity]on 03-13-2024 ESR, ERYTHROCYTE SEDIMENTATION RATE 39 mm/h High 0-30 [facility] Comment on above: Performed By: #### Jacqueline ARAUJO [facility], 1987-09, 49208-6 #### [facility] ([id number]) [address], [address] [place] [address] ASPIRATE CULTUREon 4 Bacteria identified Aer cx Nom (Asp) GRAM [...] <=1 F PIPERACIL/TAZOBACTAM S <=4 F Susceptible [facility] Comment on above: Performed By: #### 5 97-5 #### [facility] ([id number]) [address] [place] [address] AND DIFFon 2023 BODY FLUID COMMENT Interpreta tion--- ----- Normal [facility] Comment on above: Result Comment: Refe rence values for this fluid type are undefined, as fluid accumulation is considered abnormal. Performed By: #### B FCT #### [facility] ([id number]) [address] [place] [address] FLUID CLARITY CLOUDY Normal [facility] Comment on above: Performed By: #### B FCT #### [facility] ([id number]) [address] [place] [address] FLUID COLOR HONG Normal [facility] Comment on above: Performed By: #### B FCT #### [facility] ([id number]) [address] [place] [address] FLUID LYMPHOCYTE 5 % Normal [facility] Comment on above: Performed By: #### B FCT #### [facility] ([id number]) [address] [place] [address] FLUID NEUTROPHILS 75 % Normal [facility] Comment on above: Performed By: #### B FCT #### [facility] ([id number]) [address] [place] [address] [place] [address] /uL Normal [facility] Comment on above: Performed By: #### B FCT #### [facility] ([id number]) [address] [place] [address] FLUID SPECIMEN TYPE ASPIRATE Normal [facility] Comment on above: Result Comment: ABDO MISAEL PUMP POCKET Performed By: #### B FCT #### [facility] ([id number]) [address] [place] [address] MACROPHAGES 20 % Normal [facility] Comment on above: Performed By: #### B FCT #### [facility] ([id number]) [address] [place] [address] 4888 /uL Normal [facility] Comment on above: Performed By: #### B FCT #### [facility] ([id number]) [address] [place] [address] Infectious Disease Office/Cl inic Noteon 11-10-2023 Infectious Disease Office/Clinic Note Assessment/Plan 1. Postoperative wound infection Plan: Unfortunately there is no other good oral options for coverage of Pseudomonas. She is advised to stop taking doxycycline as this will help her symptoms. I did call Dr. Montes his PA Hammad called back. She advised me to send patient back to [place]. This is where she had her surgery done. She may need to MRI possible washout. This sba underwriter did call [place] talk to charge nurse Dagmar gave her [...] and fusion by Dr. Saint Gregory at [facility]. She was discharged home on the . She was discharged on cephalexin for 10 days. She was taken back to surgery on October 11 due to persistent drainage and wound dehiscence. She had a fluid collection which was most consistent with seroma/infection . The [place] Cultures grew Pseudomonas and she was discharged [...] data Procedure/Surgical History Neck Surgery Stomach Pain [facility] (09/02/2023) incision & drainage (10/12/2023) Medications cyclobenzaprine 10 mg oral tablet, 45 EA, 0 Refill(s), TAKE 1 TABLET BY MOUTH THREE TIMES DAILY NEEDED FOR MUSCLE SPASMS DULoxetine 60 mg oral delayed release capsule, 90 EA, 0 Refill(s), TAKE 1 CAPSULE BY MOUTH EVERY DAY ibuprofen 800 mg oral tablet, 270 EA, 0 Refill(s) Potassium Chloride ( (more content not included)... Normal [facility] .eGFRon 10-26-2023 GFR/1.73 sq M.predicted MDRD (S/P/Bld) [Vol rate/Area] mL/min/{1.73_m2} Normal >=60 [facility] Comment on above: Order Comment: Order added by Discern rule Result Comment: [facility] have implemented the eGFR calculation [...] years Performed By: #### E GFR #### [facility] [place] [address] Basic Metabolic Profileon -2023 Anion gap [Moles/Vol] 10 mmol/L Normal 4-12 [facility] Comment on above: Performed By: #### C [id number] #### [address] [address] Calcium [Mass/Vol] 9.4 mg/dL Normal 8.5-10.3 [facility] Comment on above: Performed By: #### C [id number] #### [address] [address] Chloride [Moles/Vol] 101 mmol/L Normal 98-110 [facility] Comment on above: Performed By: #### C [id number] #### [address] [address] CO2 [Moles/Vol] 26 mmol/L Normal 22-32 [facility] Comment on above: Performed By: #### C D:[id number] #### [address] [address] Creatinine [Mass/Vol] 0.81 mg/dL Normal 0.44-1.03 [facility] Comment on above: Performed By: #### C [id number] #### [address] [address] Glucose [Mass/Vol] 82 mg/dL Normal 70-99 [facility] Comment on above: Performed By: #### C D:[id number] #### [address] [address] Potassium [Moles/Vol] 2.7 mmol/L Low 3.4-4.8 [facility] Comment on above: Performed By: #### C [id number] #### [address] [address] Sodium [Moles/Vol] 137 mmol/L Normal 133-142 [facility] Comment on above: Performed By: #### C D:[id number] #### [address] [address] Urea nitrogen [Mass/Vol] 15 mg/dL Normal 8-26 [facility] Comment on above: Performed By: #### C [id number] #### [address] [address] Urea nitrogen/Creatinin e [Mass ratio] 18.5 mg/mg Normal 10.0-20.0 [facility] Comment on above: Performed By: #### C D:[id number] #### [address] [address] CBC w/ Diffon 10-26-2023 Erythrocyte distribution width (RBC) [Ratio] 15.2 % High 11.6-14.8 [facility] Comment on above: Performed By: #### C BC #### [address] [address] Hematocrit (Bld) [Volume fraction] 38.9 % Normal 36.0-46.0 [facility] Comment on above: Performed By: #### C BC #### [address] [address] Hemoglobin (Bld) [Mass/Vol] 12.9 g/dL Normal 12.0-16.0 [facility] Comment on above: Performed By: #### C BC #### [address] [address] MCH (RBC) [Entitic mass] 31.5 pg Normal 27.0-35.0 [facility] Comment on above: Performed By: #### C BC #### [address] [address] MCHC 33.1 % Normal 31.0-37.0 [facility] Comment on above: Performed By: #### C BC #### [address] [address] MCV (RBC) [Entitic vol] 95.0 fL Normal 80.0-100.0 [facility] Comment on above: Performed By: #### C BC #### [address] [address] Platelet 367 x10*3/mcL Normal 150-450 [facility] Comment on above: Performed By: #### C BC #### [address] [address] Platelet mean volume (Bld) [Entitic vol] 7.7 fL Normal 6.7-10.6 [facility] Comment on above: Performed By: #### C BC #### [address] [address] RBC 4.10 x10*6/mcL Normal 3.80-5.20 [facility] Comment on above: Performed By: #### C BC #### [address] [address] WBC 12.3 x10*3/mcL High 4.5-11.0 [facility] Comment on above: Performed By: #### C BC #### [address] [address] CRPon 10-26-2023 CRP 2.71 mg/dL High 0.00-0.75 [facility] Comment on above: Result Comment: CRP measurement is useful for assessment of non-specific INFLAMMATORY RESPONSE to infection or injury AND is a sensitive MARKER of ACUTE INFLAMMATION including CARDIAC RISK ASSESSMENT. CARDIAC patients with elevated CRP are POTENTIALLY at a HIGHER RISK OF FUTURE CARDIAC EVENTS. Performed By: #### C RP #### [address] [address] Diff Autoon 10-26-2023 Baso Absolute 0.1 x10*3/mcL Normal 0.0-0.2 [facility] Comment on above: Performed By: #### . Automated Diff #### [address] [address] Basophils/100 WBC (Bld) 0.5 % Normal 0.0-1.5 [facility] [facility] Comment on above: Performed By: #### . Automated Diff #### [address] [address] Eos Absolute 0.3 x10*3/mcL Normal 0.0-0.4 [facility] Comment on above: Performed By: #### . Automated Diff #### [address] [address] Eosinophils/100 WBC (Bld) 2.1 % Normal 0.0-5.4 [facility] Comment on above: Performed By: #### . Automated Diff #### [address] [address] Lymph Absolute 2.2 x10*3/mcL Normal 1.0-4.8 [facility] Comment on above: Performed By: #### . Automated Diff #### [address] [address] Lymphocytes/100 WBC (Bld) 18.0 % Low 27.2-40.8 [facility] Comment on above: Performed By: #### . Automated Diff #### [address] [address] Mccone Absolute 0.6 x10*3/mcL Normal 0.1-1.1 [facility] Comment on above: Performed By: #### . Automated Diff #### [address] [address] Monocytes/100 WBC (Bld) 4.9 % Normal 3.7-11.9 [facility] Comment on above: Performed By: #### . Automated Diff #### [address] [address] Neutro Absolute 9.2 x10*3/mcL High 1.8-7.7 [facility] Comment on above: Performed By: #### . Automated Diff #### [address] [address] Neutro Auto 74.5 % High 47.2-70.8 [facility] Comment on above: Performed By: #### . Automated Diff #### [address] [address] ESRon 10-26-2023 Sed Rate 67 mm/hr High 0-30 [facility] Comment on above: Performed By: #### E SR #### [facility] [address] [place] [address] Infectious Disease Office/Cl inic Noteon 10-26-2023 Infectious [...] tabs, 0 Refill(s), 11/09/23 10:12:00 EDT, Pharmacy: [facility] #[id number] Basic Metabolic Profile C-Reactive Protein Complete Blood Count w/ Differential Erythrocyte Sedimentation Rate 2. Pseudomonas infection As above Ordered: levoFLOXacin, 1 tabs, Oral, q24hr, X 14 days, # 14 tabs, 0 Refill(s), 11/09/23 10:12:00 EDT, Pharmacy: [email or web address] #[id number] Basic Metabolic Profile C-Reactive Protein Complete Blood Count w/ Differential Erythrocyte Sedimentation Rate Chief Complaint New pt I&D done at [facility], possible infection of back. History of Present Illness Seen today for persistent drainage after back surgery on September 01. She had L3-L4 decompression and fusion by Dr. Saint Gregory at [facility]. She was discharged home on the . She was discharged on cephalexin for 10 days. She was taken back to surgery on October 11 due to persistent drainage and wound dehiscence. She had a fluid collection which was most consistent with seroma/infection . [place] Cultures grew Pseudomonas and she was discharged on Cipro. She could not tolerate it and stopped it after 3 days. After the 10 days of cephalexin initially, she received cephalexin September 27 from [facility]. She apparently got doxycycline and azithromycin from [...] data Procedure/Surgical History Neck Surgery Stomach Pain [facility] (09/02/2023) incision & drainage (10/12/2023) Medications [...] SARS-CoV-2 (COVID-19 (more content not included)... Normal [facility] Provider Letteron 10-26-2023 Provider Letter (Inserted Image. Shelly ble to display) Tejas Richardson DO [address] [place] [address] Re: Radha [place] Date of Visit: 10/26/[address] Richardson, Thank you for your referral to my office. Attached you will find the most recent office visit note. Please call if you have any questions or concerns. Sincerely, Pavel Rodriges MD [address] [facility], [address] [place] [address] The following document(s) were included in the letter: October 26, 2023 10:13:55 EDT - (10/26/2023) Infectious Disease Office Visit Note Normal [facility] ELECTROLYTESon 08-22-2023 Anion gap [Moles/Vol] 8 mmol/L Normal 5-15 [facility] Comment on above: Performed By: #### E LEC #### [facility] ([id number]) [address] [place] [address], [address] [place] [address] Chloride [Moles/Vol] 110 mmol/L High 98-109 [facility] Comment on above: Performed By: #### E LEC #### [facility] ([id number]) [address], [address] [place] [address] CO2 [Moles/Vol] 23 mmol/L Normal 22-32 [facility] Comment on above: Performed By: #### E LEC #### [facility] ([id number]) [address], [address] [place] [address] Potassium [Moles/Vol] 4.4 mmol/L Normal 3.5-5.0 [facility] Comment on above: Performed By: #### E LEC #### [facility] ([id number]) [address], [address] [place] [address] Sodium [Moles/Vol] 141 mmol/L Normal 134-146 [facility] Comment on above: Performed By: #### E LEC #### [facility] ([id number]) [address], [address] [place] [address] CARDIAC AZAR ADMITon 03-07- 020 CK [Catalytic activity/Vol] 915 U/L Critically high 30-135 [facility] Comment on above: Result Comment: Test repeated. Critical value verified. Performed By: #### D RUGRPD #### [facility] [address] [place] [address] Christian Degroot CK.MB [Mass/Vol] 12.82 ng/mL Critically high <=2.37 [facility] Comment on above: Result Comment: Test repeated. Critical value verified. Performed By: #### D RUGRPD #### [facility] [address] [place], [place] [address] Christian Santanaen INR Coag (Bld) [Relative time] SEE BELOW Normal [facility] Comment on above: Result Comment: <0.0 34 ng/ml NEGATIVE 0.034-0.119 INDETERMINATE 0.120 AMI CUT OFF Performed By: #### D RUGRPD #### [facility] [address] [place] [address] Christian Mikayla ÁNGEL 96.0 ng/mL Critically high <=61.5 [facility] Comment on above: Performed By: #### D RUGRPD #### [facility] [address] [place] [address] Christian Mikayla TROP 0.028 ng/mL Normal <=0.034 [facility] Comment on above: Performed By: #### D RUGRPD #### [facility] [address] [place] [address] Christian Mikayla CK [Catalytic activity/Vol] 1282 U/L Critically high 30-135 [facility] Comment on above: Result Comment: Test repeated. Critical value verified. Performed By: #### T ROP, CMP #### [facility] [address] [place] [address] Christian Mikayla CK.MB [Mass/Vol] 24.63 ng/mL Critically high <=2.37 [facility] Comment on above: Result Comment: Test repeated. Critical value verified. Performed By: #### T ROP, CMP #### [facility] [address] [place] [address] Christian Mikayla INR Coag (Bld) [Relative time] SEE BELOW Normal [facility] Comment on above: Result Comment: <0.0 34 ng/ml NEGATIVE 0.034-0.119 INDETERMINATE 0.120 AMI CUT OFF Performed By: #### T ROP, CMP #### [facility] [address] [place] [address] Christian Mikayla ÁNGEL 235.0 ng/mL Critically high <=61.5 [facility] Comment on above: Performed By: #### T ROP, CMP #### [facility] [address] [place] [address] Christian Mikayla TROP 0.033 ng/mL Normal <=0.034 [facility] Comment on above: Performed By: #### T ROP, CMP #### [facility] [address] [place] [address] Christian Mikayla CBC AUTO DIFFon 03-07-2020 Basophils (Bld) [#/Vol] 0.0 103/ul Normal 0.0-0.1 [facility] Comment on above: Performed By: #### C BC #### [facility] [address] [place], [place] [address] Christian Mikayla Basophils/100 WBC (Bld) 0.1 % Critically low 0.2-2.0 [facility] Comment on above: Performed By: #### C BC #### [facility] [address] [place], [place] [address] Christian Mikayla Eosinophils (Bld) [#/Vol] 0.0 103/ul Normal 0.0-0.7 [facility] Comment on above: Performed By: #### C BC #### [facility] [address] [place] [address] Christian Mikayla Eosinophils/100 WBC (Bld) 0.0 % Critically low 0.9-7.0 [facility] Comment on above: Performed By: #### C BC #### [facility] [address] [place], [place] [id number] Christian Mikayla Erythrocyte distribution width (RBC) [Ratio] 13.4 % Normal 11.0-15.0 [facility] Comment on above: Performed By: #### C BC #### [facility] [address] [place], [place] [id number] Christian Mikayla Hematocrit (Bld) [Volume fraction] 35.4 % Critically low 36.0-48.0 [facility] Comment on above: Performed By: #### C BC #### [facility] [address] [place], [place] [address] Christian Mikayla Hemoglobin (Bld) [Mass/Vol] 11.4 g/dL Critically low 12.0-16.0 [facility] Comment on above: Performed By: #### C BC #### [facility] [address] [place], [place] [address] Christian Mikayla IG # 0.07 10e3/ul Critically high 0.00-0.03 [facility] Comment on above: Performed By: #### C BC #### [facility] [address] [place], [place] [address] Christian Mikayla IG % 0.4 % Normal 0.0-0.5 [facility] Comment on above: Performed By: #### C BC #### [facility] [address] [place], [place] [address] Christian Mikayla Lymphocytes (Bld) [#/Vol] 1.1 103/ul Critically low 1.2-3.8 [facility] Comment on above: Performed By: #### C BC #### [facility] [address] [place], [place] [address] Christian Mikayla Lymphocytes/100 WBC (Bld) 6.9 % Critically low 20.5-60.0 [facility] Comment on above: Performed By: #### C BC #### [facility] [address] [place], [place] [id number] Christian Mikayla MANUAL DIFF REQ NO Normal [facility] Comment on above: Performed By: #### C BC #### [facility] [address] [place], [place] [address] Christian Mikayla MCH (RBC) [Entitic mass] 32.7 pg Normal 26.7-34.0 [facility] Comment on above: Performed By: #### C BC #### [facility] [address] [place], [place] [address] Christian Mikayla MCHC (RBC) [Mass/Vol] 32.2 g/dL Normal 29.9-35.2 [facility] Comment on above: Performed By: #### C BC #### [facility] [address] [place], [place] [address] Christian Mikayla MCV (RBC) [Entitic vol] 101.4 fL Critically high 81.0-99.0 [facility] Comment on above: Performed By: #### C BC #### [facility] [address] [place], [place] [address] Christian Mikayla Monocytes (Bld) [#/Vol] 1.4 103/ul Critically high 0.3-0.8 [facility] Comment on above: Performed By: #### C BC #### [facility] [address] [place], [place] [address] Christian Mikayla Monocytes/100 WBC (Bld) 8.6 % Normal 1.7-12.0 [facility] Comment on above: Performed By: #### C BC #### [facility] [address] [place] [address] Christian Mikayla Neutrophils (Bld) [#/Vol] 13.4 103/ul Critically high 1.4-6.5 [facility] Comment on above: Performed By: #### C BC #### [facility] [address] [place] [address] Christian Degroot Neutrophils/100 WBC (Bld) 84.0 % Critically high 43.0-75.0 [facility] Comment on above: Performed By: #### C BC #### [facility] [address] [place], [place] [address] Christian Mikayla Platelet mean volume (Bld) [Entitic vol] 9.5 fL Normal 9.5-13.5 [facility] Comment on above: Performed By: #### C BC #### [facility] [address] [place], [place] [address] Christian Mikayla Platelets (Bld) [#/Vol] 207 103/ul Normal 150-450 [facility] Comment on above: Performed By: #### C BC #### [facility] [address] [place] [address] Christian Mikayla RBC (Bld) [#/Vol] 3.49 106/ul Critically low 4.20-5.40 [facility] Comment on above: Performed By: #### C BC #### [facility] [address] [place], [place] [address] Christian Mikayla WBC (Bld) [#/Vol] 16.0 103/ul Critically high 4.0-11.0 [facility] Comment on above: Performed By: #### C BC #### [facility] [address] [place], [place] [address] Christian Degroot PROF CHEM 8 (BAS METB)on Anion gap [Moles/Vol] 11.2 mmol/L Normal [facility] Comment on above: Performed By: #### D RUGRPD #### [facility] [address] [place], [place] [address] Christian Mikayla Calcium [Mass/Vol] 8.3 mg/dL Critically low 8.4-10.2 [facility] Comment on above: Performed By: #### D RUGRPD #### [facility] [address] [place] [id number] Christian Mikayla Chloride [Moles/Vol] 106 mmol/L Normal 98-107 [facility] Comment on above: Performed By: #### D RUGRPD #### [facility] [address] [place] [address] Christian Mikayla CO2 [Moles/Vol] 24.5 mmol/L Normal 22.0-30.0 [facility] Comment on above: Performed By: #### D RUGRPD #### [facility] [address] [place], [place] [address] Christian Mikayla Creatinine [Mass/Vol] 0.53 mg/dL Normal 0.52-1.04 [facility] Comment on above: Performed By: #### D RUGRPD #### [facility] [address] [place] [id number] Christian Mikayla EGFR-AF MALAGASY >60 Normal >=60 [facility] Comment on above: Performed By: #### D RUGRPD #### [facility] [address] [place], [place] [address] Christian Mikayla EGFR-NON AF MALAGASY >60 Normal >=60 [facility] Comment on above: Performed By: #### D RUGRPD #### [facility] [address] [place] [id number] Christian Mikayla Glucose [Mass/Vol] 113 mg/dL Critically high 74-106 [facility] Comment on above: Performed By: #### D RUGRPD #### [facility] [address] [place], [place] [address] Christian Mikayla Potassium [Moles/Vol] 3.7 mmol/L Normal 3.4-5.0 [facility] Comment on above: Performed By: #### D RUGRPD #### [facility] [address] [place] [address] Christian Mikayla Sodium [Moles/Vol] 138 mmol/L Normal 137-145 [facility] Comment on above: Performed By: #### D RUGRPD #### [facility] [address] [place], [place] [address] Christian Mikayla Urea nitrogen [Mass/Vol] 12.0 mg/dL Normal 7.0-17.0 [facility] Comment on above: Performed By: #### D RUGRPD #### [facility] [address] [place], [place] [address] Christian Mikayla Urea nitrogen/Creatinin e [Mass ratio] 22.6 mg/mg Normal [facility] Comment on above: Performed By: #### D RUGRPD #### [facility] [address] [place], [place] [address] Christian Mikayla CBC W MANUAL DIFFon 03-06-20 20 ATYPICAL LYMPH # Normal [facility] Comment on above: Performed By: #### D RUGRPD #### [facility] [address] [place], [place] [address] Christian Mikayla ATYPICAL LYMPH % Normal [facility] Comment on above: Performed By: #### D RUGRPD #### [facility] [address] [place], [place] [address] Christian Mikayla BAND # Normal 0.0-0.3 [facility] Comment on above: Performed By: #### D RUGRPD #### [facility] [address] [place] [address] Christian Mikayla BAND % Normal 0-5 [facility] Comment on above: Performed By: #### D RUGRPD #### [facility] [address] [place] [address] Christian Mikayla BASOM # 0.00 103/ul Normal 0.00-0.10 [facility] Comment on above: Performed By: #### D RUGRPD #### [facility] [address] [place], [place] [address] Christian Mikayla BASOM % 0.0 % Critically low 0.2-2.0 [facility] Comment on above: Performed By: #### D RUGRPD #### [facility] [address] [place] [address] Christian Mikayla BLAST # Normal [facility] Comment on above: Performed By: #### D RUGRPD #### [facility] [address] [place] [address] Christian Mikayla BLAST % Normal [facility] Comment on above: Performed By: #### D RUGRPD #### [facility] [address] [place], [place] [address] Christian Mikayla CORRECTED WBC Normal 4.0-11.0 [facility] Comment on above: Performed By: #### D RUGRPD #### [facility] [address] [place] [id number] Christian Mikayla Eosinophils (Bld) [#/Vol] 0.00 103/ul Normal 0.00-0.70 [facility] Comment on above: Performed By: #### D RUGRPD #### [facility] [address] [place], [place] [address] Christian Mikayla Eosinophils/100 WBC (Bld) 0.0 % Critically low 0.9-7.0 [facility] Comment on above: Performed By: #### D RUGRPD #### [facility] [address] [place], [place] [address] Christian Mikayla Erythrocyte distribution width (RBC) [Ratio] 13.2 % Normal 11.0-15.0 [facility] Comment on above: Performed By: #### D RUGRPD #### [facility] [address] [place], [place] [address] Christian Mikayla Hematocrit (Bld) [Volume fraction] 44.1 % Normal 36.0-48.0 [facility] Comment on above: Performed By: #### D RUGRPD #### [facility] [address] [place], [place] [address] Christian Mikayla Hemoglobin (Bld) [Mass/Vol] 13.9 g/dl Normal 12.0-16.0 [facility] Comment on above: Performed By: #### D RUGRPD #### [facility] [address] [place], [place] [address] Christian Mikayla LYMPHM # 0.26 103/ul Critically low 1.20-3.80 [facility] Comment on above: Performed By: #### D RUGRPD #### [facility] [address] [place] [id number] Christianvíctor Degroot LYMPHM% 1.0 % Critically low 20.5-60.0 [facility] Comment on above: Performed By: #### D RUGRPD #### [facility] [address] [place] [id number] Christian Degroot MCH (RBC) [Entitic mass] 32.6 pg Normal 26.7-34.0 [facility] Comment on above: Performed By: #### D RUGRPD #### [facility] [address] [place], [place] [address] Christian Degroot MCHC (RBC) [Mass/Vol] 31.5 g/dl Normal 29.9-35.2 [facility] Comment on above: Performed By: #### D RUGRPD #### [facility] [address] [place] [address] Christian Degroot MCV (RBC) [Entitic vol] 103.3 fL Critically high 81.0-99.0 [facility] Comment on above: Performed By: #### D RUGRPD #### [facility] [address] [place], [place] [address] Crhistian Mikayla METAMYELOCYTE # Normal [facility] Comment on above: Performed By: #### D RUGRPD #### [facility] [address] [place], [place] [address] Chirstian Mikayla METAMYELOCYTE % Normal [facility] Comment on above: Performed By: #### D RUGRPD #### [facility] [address] [place] [address] Christian Mikayla MONOM# 1.32 103/ul Critically high 0.30-0.80 [facility] Comment on above: Performed By: #### D RUGRPD #### [facility] [address] [place], [place] [address] Christian Mikayla MONOM% 5.0 % Normal 1.7-12.0 [facility] Comment on above: Performed By: #### D RUGRPD #### [facility] [address] [place], [place] [address] Christian Mikayla MYELOCYTE # Normal [facility] Comment on above: Performed By: #### D RUGRPD #### [facility] [address] [place], [place] [address] Christian Mikayla MYELOCYTE % Normal [facility] Comment on above: Performed By: #### D RUGRPD #### [facility] [address] [place], [place] [address] Christian Mikayla NRBC Normal [facility] Comment on above: Performed By: #### D RUGRPD #### [facility] [address] [place], [place] [address] Christian Mikayla Platelet mean volume (Bld) [Entitic vol] 9.6 fL Normal 9.5-13.5 [facility] Comment on above: Performed By: #### D RUGRPD #### [facility] [address] [place], [place] [address] Christian Mikayla Platelets (Bld) [#/Vol] 268 103/ul Normal 150-450 [facility] Comment on above: Performed By: #### D RUGRPD #### [facility] [address] [place], [place] [address] Christian Mikayla RBC (Bld) [#/Vol] 4.27 106/ul Normal 4.20-5.40 [facility] Comment on above: Performed By: #### D RUGRPD #### [facility] [address] [place], [place] [address] Christian Mikayla SEG # 24.82 103/ul Critically high 1.40-6.50 [facility] Comment on above: Performed By: #### D RUGRPD #### [facility] [address] [place], [place] [address] Christian Mikayla Segmented neutrophils/100 WBC (Bld) 94.0 % Critically high 43.0-75.0 [facility] Comment on above: Performed By: #### D RUGRPD #### [facility] [address] [place], [place] [address] Christian Mikayla WBC (Bld) [#/Vol] 26.4 103/ul Critically high 4.0-11.0 [facility] Comment on above: Performed By: #### D RUGRPD #### [facility] [address] [place] [address] Christian Degroot CPKon 03-06-2020 CK [Catalytic activity/Vol] 464 U/L Critically high 30-135 [facility] Comment on above: Result Comment: test repeated critical value verified Performed By: #### C K #### [facility] [address] [place] [address] ABD/PELV W CONon 03-06-20 CT [...] MAT CASEY Date: 2020-03-06 18:45 Normal [facility] CT STROKE HEAD WOon 03-06-20 20 [...] MAT CASEY Date: 2020-03-06 16:31 Normal [facility] DRUG SCREEN RAPID (URINE)on 03-06-2020 AMP Positive Normal NEGATIVE [facility] Comment on above: Performed By: #### D RUGRPD #### [facility] [address] [place] [address] Christian Mikayla BAR Negative Normal NEGATIVE [facility] Comment on above: Performed By: #### D RUGRPD #### [facility] [address] [place] [address] Christian Mikayla BUP Negative Normal NEGATIVE [facility] Comment on above: Performed By: #### D RUGRPD #### [facility] [address] [place] [address] Christian Mikayla BZO Negative Normal NEGATIVE [facility] Comment on above: Performed By: #### D RUGRPD #### [facility] [address] [place] [address] Christian Mikayla RITCHIE Negative Normal NEGATIVE [facility] Comment on above: Performed By: #### D RUGRPD #### [facility] [address] [place] [address] Christian Mikayla CUT-OFFS SEE BELOW Normal [facility] Comment on above: Result Comment: AMP (Amphetamine): [...] ng/mL Performed By: #### D RUGRPD #### [facility] [address] [place] [address] DRUG CUT HEADER DRUG CLASS TEST SYST EM CUT-OFF CONCENTRATIONS ARE FOLLOWS: Normal [facility] Comment on above: Performed By: #### D RUGRPD #### [facility] [address] [place] [address] Christian Mikayla mAMP Negative Normal NEGATIVE [facility] Comment on above: Performed By: #### D RUGRPD #### [facility] [address] [place] [address] Christian Mikayla MTD Negative Normal NEGATIVE [facility] Comment on above: Performed By: #### D RUGRPD #### [facility] [address] [place] [address] Christian Mikayla OPI Positive Normal NEGATIVE [facility] Comment on above: Performed By: #### D RUGRPD #### [facility] [address] [place] [address] Christian Mikayla OXY Negative Normal NEGATIVE [facility] Comment on above: Performed By: #### D RUGRPD #### [facility] [address] [place] [address] PCP Negative Normal NEGATIVE [facility] Comment on above: Performed By: #### D RUGRPD #### [facility] [address] [place] [address] PPX Negative Normal NEGATIVE [facility] Comment on above: Performed By: #### D RUGRPD #### [facility] [address] [place] [address] Christian Mikayla TCA Negative Normal NEGATIVE [facility] Comment on above: Performed By: #### D RUGRPD #### [facility] [address] [place] [address] Christian Mikayla THC Negative Normal NEGATIVE [facility] Comment on above: Performed By: #### D RUGRPD #### [facility] [address] [place], [place] [id number] Christian Mikayla ER URINE PROFILEon 0 Bilirubin [Mass/Vol] Negative Normal NEGATIVE [facility] Comment on above: Performed By: #### E RUR #### [facility] [address] [place] [address] Christian Mikayla BLOOD Negative Normal NEGATIVE [facility] Comment on above: Performed By: #### E RUR #### [facility] [address] [place] [address] Christian Mikayla Clarity (U) CLEAR Normal [facility] Comment on above: Performed By: #### E RUR #### [facility] [address] [place] [address] Christian Mikayla Color (U) YELLOW Normal YELLOW [facility] Comment on above: Performed By: #### E RUR #### [facility] [address] [place] [address] Christian Mikayla ERUAHD A micrscopic examina tion will be performed if indicated. Normal [facility] Comment on above: Performed By: #### E RUR #### [facility] [address] [place] [address] Christian Mikayla Glucose [Mass/Vol] Negative Normal NEGATIVE [facility] Comment on above: Performed By: #### E RUR #### [facility] [address] [place] [address] Christian Mikayla Ketones Ql (U) Negative Normal NEGATIVE [facility] Comment on above: Performed By: #### E RUR #### [facility] [address] [place] [address] Christian Mikayla Nitrite Ql (U) Negative Normal NEGATIVE [facility] Comment on above: Performed By: #### E RUR #### [facility] [address] [place], [place] [id number] Christian Mikayla pH (Bld) 6.0 Normal 5-9 [facility] Comment on above: Performed By: #### E RUR #### [facility] [address] [place] [address] Christian Mikayla Protein (U) [Mass/Vol] TRACE Normal [facility] Comment on above: Performed By: #### E RUR #### [facility] [address] [place] [address] Christian Mikayla SPEC GRAVITY >=1.030 Normal 1.005-<=1.02 5 [facility] Comment on above: Performed By: #### E RUR #### [facility] [address] [place] [address] Christianvíctor Degroot UR MICRO IND NOT INDICATED Normal [facility] Comment on above: Performed By: #### E RUR #### [facility] [address] [place] [address] Christianvíctor Degroot Urobilinogen Qn (U) 0.2 EU/dl Normal [facility] Comment on above: Performed By: #### E RUR #### [facility] [address] [place] [address] Christianvíctor Degroot WBC (Bld) [#/Vol] Negative Normal NEGATIVE [facility] Comment on above: Performed By: #### E RUR #### [facility] [address] [place], [place] [id number] Christian Mikayla ETHANOL (BLD ALC)on 03-06-20 20 Ethanol [Mass/Vol] NOTE: 80 mg/dl is th e legal limit for a blood alcohol level Normal [facility] Comment on above: Performed By: #### E TH #### [facility] [address] [place], [place] [id number] Christian Mikayla Ethanol [Mass/Vol] mg/dL Normal [facility] Comment on above: Performed By: #### E TH #### [facility] [address] [place] [address] Christianvíctor Santanaen HEMOGRAM AND PLATELon 2019 WBC (Bld) [#/Vol] 23.5 103/ul Critically high 4.0-11.0 [facility] Comment on above: Performed By: #### H H #### [facility] [address] [place] [address] Christian Degroot LACTATE/LACTIC ACIDon 2019 Lactate [Moles/Vol] 0.7 mmol/L Normal 0.7-2.0 [facility] Comment on above: Performed By: #### L ACT #### [facility] [address] [place] [address] Christian Degroot MYOGLOBINon 03-06-2020 Myoglobin [Mass/Vol] 918.0 ng/mL Critically high <=61.5 [facility] Comment on above: Result Comment: test repeated critical value verified Performed By: #### M YO #### [facility] [address] [place] [address] Christian Degroot POINT OF CARE GLUCOSEon 02-14 Glucose [Mass/Vol] 117 mg/dL Critically high 74-106 [facility] Comment on above: Performed By: #### D RUGRPD #### [facility] [address] [place] [address] Christian Degroot PROF 14(COMP METB)on 020 Albumin [Mass/Vol] 3.3 g/dL Critically low 3.5-5.0 [facility] Comment on above: Performed By: #### T BLAYNE, CMP #### [facility] [address] [place] [address] Christian Mikayla Albumin/Globulin [Mass ratio] 1.1 {ratio} Normal [facility] Comment on above: Performed By: #### T BLAYNE, CMP #### [facility] [address] [place] [address] Christian Mikayla ALP [Catalytic activity/Vol] 69 U/L Normal 38-126 [facility] Comment on above: Performed By: #### T BLAYNE, CMP #### [facility] [address] [place] [address] Christian Mikayla ALT [Catalytic activity/Vol] 30 U/L Normal 9-52 [facility] Comment on above: Performed By: #### T ROP, CMP #### [facility] [address] [address] Christian Mikayla Anion gap [Moles/Vol] 16.8 mmol/L Normal [facility] Comment on above: Performed By: #### T ROP, CMP #### [facility] [address] [address] Christian Mikayla AST [Catalytic activity/Vol] 29 U/L Normal 14-36 [facility] Comment on above: Performed By: #### T ROP, CMP #### [facility] [address] [address] Christian Mikayla Bilirubin Ql (U) 0.4 mg/dL Normal 0.2-1.3 [facility] Comment on above: Performed By: #### T ROP, CMP #### [facility] [address] [address] Christian Mikayla Calcium [Mass/Vol] 8.7 mg/dL Normal 8.4-10.2 [facility] Comment on above: Performed By: #### T ROP, CMP #### [facility] [address] [address] Christian Mikayla Chloride [Moles/Vol] 104 mmol/L Normal 98-107 [facility] Comment on above: Performed By: #### T ROP, CMP #### [facility] [address] [address] Christian Mikayla CO2 [Moles/Vol] 22.6 mmol/L Normal 22.0-30.0 [facility] Comment on above: Performed By: #### T ROP, CMP #### [facility] [address] [address] Christian Mikayla Creatinine [Mass/Vol] 0.92 mg/dL Normal 0.52-1.04 [facility] Comment on above: Performed By: #### T ROP, CMP #### [facility] [address] [place], [place] [address] Christian Mikayla EGFR-AF MALAGASY >60 Normal >=[address] [facility] Comment on above: Performed By: #### T ROP, CMP #### [facility] [address] [id number] Christian Mikayla EGFR-NON AF MALAGASY >60 Normal >=60 [facility] Comment on above: Performed By: #### T ROP, CMP #### [facility] [address] [id number] Christian Mikayla Globulin (S) [Mass/Vol] 3.0 g/dL Normal [facility] Comment on above: Performed By: #### T ROP, CMP #### [facility] [address] [id number] Christian Mikayla Glucose [Mass/Vol] 130 mg/dL Critically high 74-106 [facility] Comment on above: Performed By: #### T ROP, CMP #### [facility] [address] [place] [address] Christian Mikayla Potassium [Moles/Vol] 4.4 mmol/L Normal 3.4-5.0 [facility] Comment on above: Performed By: #### T ROP, CMP #### [facility] [address] [place], [place] [id number] Christian Mikayla Protein [Mass/Vol] 6.3 g/dL Normal 6.1-8.2 [facility] Comment on above: Performed By: #### T ROP, CMP #### [facility] [address] [address] Christian Mikayla Sodium [Moles/Vol] 139 mmol/L Normal 137-145 [facility] Comment on above: Performed By: #### T ROP, CMP #### [facility] [address] [id number] Christian Mikayla Urea nitrogen [Mass/Vol] 18.0 mg/dL Critically high 7.0-17.0 [facility] Comment on above: Performed By: #### T ROP, CMP #### [facility] [address] [id number] Christian Mikayla Urea nitrogen/Creatinin e [Mass ratio] 19.6 mg/mg Normal [facility] Comment on above: Performed By: #### T ROP, CMP #### [facility] [address] [place] [address] Christian Mikayla RESPIRATORY PANEL PLUSon Adenovirus NOT DETECTED Normal NOT DETECTED [facility] Comment on above: Performed By: #### D RUGRPD #### [facility] [address] [place] [address] Christian Mikayla B. Parapertusis NOT DETECTED Normal NOT DETECTED [facility] Comment on above: Performed By: #### D RUGRPD #### [facility] [address] [place] [address] Christian Mikayla B. Pertussis NOT DETECTED Normal NOT DETECTED [facility] Comment on above: Performed By: #### D RUGRPD #### [facility] [address] [place] [address] Christian Mikayla Chlamydia Pneumoniae NOT DETECTED Normal NOT DETECTED [facility] Comment on above: Performed By: #### D RUGRPD #### [facility] [address] [place] [address] Christian Mikayla Coronavirus 229E NOT DETECTED Normal NOT DETECTED [facility] Comment on above: Performed By: #### D RUGRPD #### [facility] [address] [place] [address] Christian Mikayla Coronavirus HKU1 NOT DETECTED Normal NOT DETECTED [facility] Comment on above: Performed By: #### D RUGRPD #### [facility] [address] [place] [address] Christian Mikayla Coronavirus NL63 NOT DETECTED Normal NOT DETECTED [facility] Comment on above: Performed By: #### D RUGRPD #### [facility] [address] [place] [address] Christian Mikayla Coronavirus OC43 NOT DETECTED Normal NOT DETECTED [facility] Comment on above: Performed By: #### D RUGRPD #### [facility] [address] [place] [address] Christian Mikayla Influenza A H1 2009 NOT DETECTED Normal NOT DETECTED [facility] Comment on above: Performed By: #### D RUGRPD #### [facility] [address] [address] Christian Mikayla Influenza B NOT DETECTED Normal NOT DETECTED [facility] Comment on above: Performed By: #### D RUGRPD #### [facility] [address] [address] Christian Mikayla Metapneumovirus NOT DETECTED Normal NOT DETECTED [facility] Comment on above: Performed By: #### D RUGRPD #### [facility] [address] [place] [address] Christian Mikayla Mycoplas. Pneumoniae NOT DETECTED Normal NOT DETECTED [facility] Comment on above: Performed By: #### D RUGRPD #### [facility] [address] [place] [address] Christian Mikayla Parainfluenza 1 NOT DETECTED Normal NOT DETECTED [facility] Comment on above: Performed By: #### D RUGRPD #### [facility] [address] [place] [address] Christian Mikayla Parainfluenza 2 NOT DETECTED Normal NOT DETECTED [facility] Comment on above: Performed By: #### D RUGRPD #### [facility] [address] [place] [address] Christian Mikayla Parainfluenza 3 NOT DETECTED Normal NOT DETECTED [facility] Comment on above: Performed By: #### D RUGRPD #### [facility] [address] [place] [address] Christian Mikayla Parainfluenza 4 NOT DETECTED Normal NOT DETECTED [facility] Comment on above: Performed By: #### D RUGRPD #### [facility] [address] [place] [address] Christian Mikayla Rhino/Enterovirus NOT DETECTED Normal NOT DETECTED [facility] Comment on above: Performed By: #### D RUGRPD #### [facility] [address] [place] [address] Christian Mikayla RP2 Header 1 RESPIRATORY PANEL: VIRUSES Normal [facility] Comment on above: Performed By: #### D RUGRPD #### [facility] [address] [place] [address] Christian Degroot RP2 Header 2 RESPIRATORY PANEL: BACTERIA Normal [facility] Comment on above: Performed By: #### D RUGRPD #### [facility] [address] [place] [address] Christian Degroot RP2 Header 4 EUA SEE BELOW Normal [facility] Comment on above: Result Comment: This test is not yet approved or cleared by the [place] FDA. When there are no FDA-approved or cleared tests available, and other criteria are met, FDA can make tests available under an emergency access mechanism called an Emergency Use Authorization (EUA). The EUA for this test is supported by the Belt Picker of Health and Human Service?s (HHS?s) declaration [...] used). Performed By: #### D RUGRPD #### [facility] [address] [place] [address] Crhistian Degroot RSV NOT DETECTED Normal NOT DETECTED [facility] Comment on above: Performed By: #### D RUGRPD #### [facility] [address] [place] [address] Christian Degroot SARS-CoV-2: COVID-19 NOT DETECTED Normal NOT DETECTED [facility] Comment on above: Performed By: #### D RUGRPD #### [facility] [address] [place] [address] Christian Degroot TROPONIN - Ion 03-06-2020 Troponin I.cardiac [Mass/Vol] 0.016 ng/mL Normal <=0.034 [facility] Comment on above: Performed By: #### T ROP, CMP #### [facility] [address] [place] [address] Christian Degroot Troponin I.cardiac [Mass/Vol] SEE BELOW Normal [facility] [place] [facility] Comment on above: Result Comment: <0.0 34 ng/ml NEGATIVE 0.034-0.119 INDETERMINATE 0.120 AMI CUT OFF Performed By: #### T ROP, CMP #### [facility] [address] [place], [place] [address] Christian Degroot XR CHEST 1 Von 03-06-2020 [...] FELA SMITH Date: 2020-03-06 15:07 Normal [facility] CT 3D CERVICAL SPINE WITH CO NTRASTon 04-27-2018 CT 3[facility] [address] [place] [address] Patient Name: RADHA DUNCAN : 1970Sex: FAge: Race: WhiteMRN: [id number]. Location: 85Patient Status: OVisit #: [id number] Date: 04/10/2018 12:10:00 PMCompleted Date: 04/27/2018 10:58 AMRequesting Provider: MARY DIAL Attending Provider: MARY DIAL Report Copy To: TEJAS RICHARDSON Signs & Symptoms: M54.12 Radiculopathy, cervical region B44Elvmnhw: Nyla MYELOGRAM AUTH [id number] VALID 04/11/18-07/12/18 PER [facility] [id number] JYComments: Exam: CT 3D CERVICAL SPINE WITH CONTRASTAccession #: [id number] CT 3D CERVICAL SPINE WITH CONTRAST 04/27/2018 [...] findings. Electronically signed by:Oli Sanders. Transcribed by: [email or web address], User Resident: MANDEEP YOUNGElectronically Signed by: OLI SANDERS @ 04/27/2018 01:02 PMI personally read this/these film(s) with this resident Normal The [facility] CT 3D LUMBAR SPINE W CONTRAS Ton 04-27-2018 CT 3D LUMBAR SPINE W CONTRAST [facility] [address] [id number] Patient Name: RADHA DUNCAN : 1970Sex: FAge: Race: WhiteMRN: [id number]. Location: 85Patient Status: DVisit #: [id number] Date: 04/10/2018 12:10:00 PMCompleted Date: 04/27/2018 10:59 AMRequesting Provider: MARY DIAL Attending Provider: MARY DIAL Report Copy To: TEJAS RICHARDSON Signs & Symptoms: M54.16 Radiculopathy, lumbar region R79Miayzzd: [place] MYELOGRAM AUTH [id number] VALID 04/11/18-07/12/18 PER [facility] [id number] JYComments: Exam: CT 3D LUMBAR SPINE W CONTRASTAccession #: [id number] CT 3D LUMBAR SPINE W CONTRAST 04/27/2018 [...] findings. Electronically signed by:Antony Skelton. Transcribed by: [email or web address], User Resident: MANDEEP YOUNGElectronically Signed by: ANTONY SKELTON @ 04/27/2018 05:36 PMI personally read this/these film(s) with this resident Normal [facility] ENTIRE MYELOGRAMon [address] [facility] [address] [place] [address] Patient Name: RADHA DNUCAN : 1970Sex: FAge: Race: WhiteMRN: [id number]. Location: 85Patient Status: OVisit #: [id number] Date: 04/10/2018 12:10:00 PMCompleted Date: 04/27/2018 10:19 AMRequesting Provider: MARY DIAL Attending Provider: MARY DIAL Report Copy To: TEJAS RICHARDSON Signs & Symptoms: M54.16 Radiculopathy, lumbar region N78Vckobhw: Nyla CT MYELOGRAMComments: , , , Ordering Provider - MARY DIAL MD , Exam: ENTIRE MYELOGRAMAccession #: [id number] ENTIRE MYELOGRAM 04/27/2018 10:19 AM EST SIGNS AND SYMPTOMS: M54.16 Radiculopathy, lumbar region I10 TECHNOLOGIST COMMENTS: Dr. Young/Román/Pepe used 0.70 minutes of fluoro time and 12 ml's of Omnipaque 240 for a cervical and lumbar myelogram QUESTION FOR THE RADIOLOGIST: , , , Ordering Provider - MARY DILA MD , INFORMED CONSENT: Reason for procedure was discussed with the patient. The procedure expectations risks benefits options and alternatives were discussed. All the questions were answered. The patient understood that results cannot be guaranteed. The procedure is indicated and risks are acceptable. Consent was obtained. Timeout:[place] protocol timeout verification performed. PROCEDURE:Estimated blood loss:None [...] findings. Electronically signed by:Oli Sanders. Transcribed by: [email or web address], User Resident: MANDEEP YOUNGElectronically Signed by: OLI SANDERS @ 04/27/2018 01:01 PMI personally read this/these film(s) with this resident Normal [facility] Comment on above: Order Comment: , , = ========= , Ordering Provider - MARY DIAL MD , Ta 02-20-2018 CNPN Telephone (JOYCELYN) -------RADHA DUNCAN ([id number]) 1970 [facility] Time Provider Vlaazfywut81/8/18 MAGED MURDOCK During your visit today, we recorded the following information about you:Jacinta [facility] Patient Service Spec 02/20/2018 8:05 AM SignedPt [...] from his care.Please call her back at [phone].Elysia Dos Santos 02/22/2018 8:37 AM SignedPlease fax letter over to [phone].Clint Park LPN 02/27/2018 10:18 AM SignedSpoke with [...] Status:Closed by MAGED MURDOCK MD on 02/28/18 [facility] CNOVon 02-10-2018 CNOV Office Visit ([facility]) -------DAKOTARADHA ([id number]) 1970 FDate Time Provider Department02/10/18 10:45 AM MAGED MURDOCK During your visit today, we recorded the following information about you: Pulse Respiration Blood pressure Weight 80/minute 16/minute 132/47 69.9 kgBenjourdan Murdock MD 02/11/2018 1:30 PM AddendumSUBJECTIVE:The patient presents to [facility] Pain Management Department for afollow-up appointment for [...] [facility]aging results in scanned [...] other than HPI.Data scribed by above mentioned MA/MECHANICAL MAINTENANCE INSTRUCTOR/RN/PA, and personally reviewed andverified by physician. Maged [...] Patient agreeswith above. Maged Murdock, [facility]2017Referring Provider: LINDSEY AGUILAR [[id number]]Allergies As of Date: 02/10/2018(No Known Allergies)Date Reviewed: [...] 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] INVALID FOR*Letter [facility]Maged Murdock, [facility] [address] [place], [place] [phone] [phone] Suzanne M Bailey:Thank you for seeing me [...] any questions. Sincerely, Maged Murdock MDEncounter Number: [id number] Status:Closed by MAGED MURDOCK MD on 02/11/18 Normal [facility] PROGRESSon 02-10-2018 Protein mass conc HNO ID: [id number] thor: Maged Jolleyervice: (none)Author Type: PhysicianType: Progress NotesFiled: 02/11/2018 1:30 PMNote Text:SUBJECTIVE:The patient presents to [facility] Pain Management Departmentfor a follow-up appointment for [...] other than HPI.Data scribed by above mentioned MA/MECHANICAL MAINTENANCE INSTRUCTOR/RN/PA, and personally reviewed andverified by physician. Maged [...] with above. Maged Murdock, MDSeptember 2017 Normal [facility] CNOVon 01-10-2018 CNOV Office Visit ([facility]) -------RADHA DUNCAN ([id number]) 1970 FDate Time Provider Department01/10/18 1:00 PM MONICA YAN ([facility]) [facility] During your visit today, we recorded the following information about you: Pulse Blood pressure Weight 85/minute 127/47 70.3 kgMonica Yan APRN.CNP 01/10/2018 2:13 PM SignedSUBJECTIVE:The patient presents to [facility] Pain Management Department for afollow-up appointment for [...] and C4-C5 secondaryto DDDAnterior mechanical fusion of L5-8-3NXMADJ OF SYSTEMS:GENERAL: (-) weight loss, (+)malaise, (-)fevers.HEENT:(+)headache [...] other than HPI.Data scribed by above mentioned MA/MECHANICAL MAINTENANCE INSTRUCTOR/RN/PA, and personally reviewed andverified by Monica Yan [...] treatment plan. Patient agreeswith above.Monica Yan APRN.CNPAugust 27, 2018Referring Provider: TEJAS RICHARDSON JR [[id number]]Allergies As of Date: 01/10/2018(No Known Allergies)Date Reviewed: [...] INVALID FOR*Follow-up and Disposition History RecordedEncounter Number: [id number] Status:Closed by MONICA YAN CNP on 01/10/18 Normal [facility] PROGRESSon 01-09-2018 Protein mass conc HNO ID: [id number] thor: Monica Pereyra (Track Helper) HillService: (none)Author Type: Nurse PractitionerType: Progress NotesFiled: 01/10/2018 2:13 PMNote Text:SUBJECTIVE:The patient presents to [facility] Pain Management Departmentfor a follow-up appointment for [...] to moderate foraminal narrowing at C3-C4, and C4-X4cpjpdmqzt to DDDAnterior mechanical fusion of I5-9-6MEPYGV OF SYSTEMS:GENERAL: (-) weight loss, (+)malaise, (-)fevers.HEENT:(+)headache [...] other than HPI.Data scribed by above mentioned MA/MECHANICAL MAINTENANCE INSTRUCTOR/RN/PA, and personally reviewed andverified by Monica Yan [...] resulting treatment plan. Patientagrees with above.Monica Yan APRN.CNPAugeorgiana 2017 Normal [facility] CNPNon 12-21-2017 CNPN Telephone ([facility]) -------RADHA DUNCAN ([id number]) 1970 FDate Time Provider Department12/21/17 [facility] During your visit today, we recorded the following information about you:Lorena Araiza 12/21/2017 10:31 AM AddendumPatient calling in to inquire if you have received MRI films [facility].Please advisJacob Park LPN 12/22/2017 3:15 PM SignedSpoke with patient and informed her that we did receive the thoracic MRI whichwas normal.We did not receive the cervical MRI. She will call [place] and have them refaxit.Kami Zheng Workleader 12/26/2017 9:53 AM SignedPatient called back in regards to below message. Patient would like to know ifwe have received the Cervical MRI as it was refaxed 12/22. Pleasereview.Clint Park LPN 12/26/2017 11:01 AM SignedSpoke to [place] and they are refaxing it as I [...] Status:Closed by CLINT PARK LPN on 12/22/17 [facility] CNOVon 12-08-2017 CNOV Office Visit ([facility]) -------RADHA DUNCAN ([id number]) 1970 [facility] Time Provider Department12/08/17 1:30 PM MAGED MURDOCK During your visit today, we recorded the following information about you: Pulse Respiration Blood pressure Weight 62/minute 16/minute 105/40 68.9 kgMaged Murdock MD 12/08/2017 6:06 PM SignedReferring Or Consulting Physician:Lindsey Aguilar, [id number] [facility] [address] [place] [address]HJZCV COMPLAINT: pain in my neck, shoulders, thoracic [...] Number of children: 0Occupational 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 Maged [...] also during rena-operative period. we dont have kumo-tdahovm-kxcsrdzh for disability, likely to hamper rapid recovery [...] she did have severe postprocedure pain in [facility] handsDirect patient care time spent: [...] or mail.Aishwarya Joyner 2017Referring Provider: LINDSEY AGUILAR [[id number]]Allergies As of Date: 12/08/2017(No Known Allergies)Date Reviewed: [...] region [M48.02]Order(s):C-REACTIVE PROTEIN (CRP) [SQCRP] Order #: [id number] FUTURE SED RATE WESTERGREN [SQWSR] Order #: [id number] FUTURE TSH BLD [SQTSH] Order #: [id number] FUTURE IRON + TIBC [SQIRON] Order #: [id number] FUTURE VITAMIN D 25 HYDROXY [SQVITD] Order #: [id number] FUTURE MRI THORACIC SPINE WO/W IVCON [[id number]] Order #: [id number] FUTURE iv contrast (will be provided with [...] EachRfl: 0 MRI CERVICAL SPINE WO IVCON [[id number]] Order #: [id number] FUTUREPrescriptions as of 12/08/2017 Sig: OXCARBAZEPINE 150 [...] is not on file.Letter TextJuly 2017Maged Murdock [facility] Tyuaggisfm[address] [place]Hy[place], [place] [phone] [phone] Suzanne M Dakota:Thank you for seeing me today. [...] medications for the issues above, and [facility]. Afterthat, further testing could be done to get to the bottom of your problems.Please call with any questions. Sincerely, Maged Murdock MDEncounter Number: [id number] Status:Closed by MAGED MURDOCK MD on 12/08/17 Normal [facility] PROGRESSon 12-08-2017 Protein mass conc HNO ID: [id number] thor: Maged Jolleyervice: (none)Author Type: PhysicianType: Progress NotesFiled: 12/08/2017 6:06 PMNote Text:Referring Or Consulting Physician:Lindsey Aguilar, PA[address] [place] [address]ALPPL COMPLAINT: pain in my neck, shoulders, thoracic [...] scan (2015)no abnormal uptake at T5EMG (10/2017) [facility] C5, C6 motor chronic [...] Number of children: 0Occupational 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 Maged [...] she did have severepost procedure pain in [facility] handsDirect patient care time spent: [...] fax, or mail.Maged Murdock MDJuly 2017 Normal [facility] [place] Encounters Encounter Date Encounter Type Care Provider Facility Start: 06-11-2024 End: 06-11-2024 ambulatory Christian Jameson MD Facility: [facility] Start: 04-24-2024 End: 04-24-2024 ambulatory [facility] Start: 04-11-2024 End: 04-11-2024 ambulatory [facility] Start: 04-04-2024 End: 04-04-2024 ambulatory [facility] Start: 03-27-2024 End: 03-27-2024 ambulatory [facility] Start: 03-20-2024 End: 03-20-2024 ambulatory [facility] Start: 03-16-2024 End: 03-16-2024 ambulatory [facility] Start: 03-15-2024 End: 03-15-2024 ambulatory [facility] Work Phone: Start: 03-15-2024 End: 03-15-2024 Patient encounter procedure [facility] Work Phone: Start: 03-13-2024 End: 03-13-2024 ambulatory [facility] Start: 03-07-2024 End: 03-07-2024 ambulatory [facility] Start: 12-15-2023 End: 01-15-2024 ambulatory [facility] Start: 12-05-2023 End: 12-15-2023 ambulatory [facility] Start: 11-10-2023 End: 11-10-2023 ambulatory Hanane HENDRICKS Facility:Infectious Disease Start: 10-26-2023 End: 10-26-2023 ambulatory Pavel Rodriges MD Facility:[facility] Start: 10-26-2023 End: 10-26-2023 ambulatory Pavel Rodriges MD Facility:[facility] Start: 08-22-2023 End: 08-22-2023 ambulatory TEJAS RICHARDSON [facility] Start: 08-15-2023 End: 09-14-2023 ambulatory [facility] Start: 07-18-2023 End: 08-15-2023 ambulatory [facility] Start: 03-06-2020 End: 03-07-2020 Patient encounter procedure PEREZ LESTER Facility: Start: 04-27-2018 End: 04-28-2018 Patient encounter procedure PROVIDER UNKNOWN Facility:[facility] Start: 02-10-2018 End: 02-13-2018 Patient encounter MAGED TELLEZAHAM [facility] Start: 01-10-2018 End: 01-11-2018 Patient encounter MONICA YAN [facility] Start: 12-08-2017 End: 12-09-2017 Patient encounter MAGED TELLEZAHAM [facility] Procedures Date Procedure Procedure Detail Performing Clinician Start: 03-06-2020 End: 03-06-2020 Microscopic examination of blood, culture PEREZ LESTER Comment on above: Performed By: #### D RUGRPD #### [facility] [address] [place] [address] Christian Santanaen Payers Date Payer Category Payer Unknown 2022 Unknown [id number] 1970 Unknown [id number] 2.16.8 40.1.937402.3.579.2.647 1970 Unknown [id number] 2.16.84 0.1.386209.3.579.2.593 1969 Unknown [id number] 2.16.8 40.1.098872.3.579.2.1286 1969 Unknown [id number] 2.16.8 40.1.965175.3.579.2.1286 1969 Unknown [id number] .16.8 40.1.102359.3.579.2.1285 1969 Unknown [id number] .16.8 40.1.354396.3.579.2.1285 1969 Unknown [id number] .16.8 40.1.979350.3.579.2.1285 1969 Unknown [id number] .16.8 40.1.635229.3.579.2.1285 1969 Unknown [id number] .16.8 40.1.667692.3.579.2.1285 1969 Unknown [id number] .16.8 40.1.339588.3.579.2.1285 1969 Unknown [id number] .16.8 40.1.393525.3.579.2.1285 1969 Unknown [id number] .16.8 40.1.843553.3.579.2.1285 1969 Unknown [id number] .16.8 40.1.837979.3.579.2.1285 1969 Unknown [id number] .16.8 40.1.996038.3.579.2.1285 1969 Unknown [id number] .16.8 40.1.530489.3.579.2.1285 1969 Unknown [id number] .16.8 40.1.976825.3.579.2.1285 1969 Unknown [id number] .16.8 40.1.163236.3.579.2.1285 1969 Unknown [id number] .16. 840.1.256110.3.579.2. 1969 Unknown [id number] .16 840.1.929167.3.579.2. 1969 Unknown [id number] 2.16. 840.1.231898.3.579.2.196 1969 Unknown [id number] 2.16. 840.1.429812.3.579.2.196 1959 Unknown [id number] Unknown [id number] Social History Date Type Detail Facility Tobacco smoking stat [facility] Unknown if ever smoked [facility] Work Phone: Start: 1970 Sex Assigned At Female F [facility] Evaluation note Note Date & Type Note Facility Evaluation note No assessment information availa ble [facility] Work Phone: Summary Purpose Family History No [...] section and content) DATE CREATED AUTHOR 04/03/2018 [facility] DATE CREATED AUTHOR AUTHOR'S ORGANIZ ATION 05/03/2018 [facility] DATE CREATED AUTHOR AUTHOR'S ORGANIZ ATION 04/09/2020 [facility] DATE CREATED AUTHOR AUTHOR'S ORGANIZ ATION 04/07/2024 [facility] DATE CREATED AUTHOR AUTHOR'S ORGANIZ ATION 04/28/2024 [facility] DATE CREATED AUTHOR AUTHOR'S ORGANIZ ATION 06/17/2024 [facility] Care Teams (unrecognized sec tion and content) Team Status: Active Member Role Status Dates Teajs Richardson JR DO Primary Care Provider Active [...] BE BASED ON THE PRIMARY CLINICAL RECORDS. [employer] [facility] provides no warranty or guarantee of the accuracy or completeness of information in this document.
[2024-06-25 08:59] VITALS: BP 113/58; PULSE 77; TEMP 36.7; O2SAT 100
[2024-06-25 09:27] VITALS: BP 104/52; BP 109/55; PULSE 72; PULSE 74; O2SAT 98; O2SAT 99
[2024-06-25] MEDS: DEXAMETHASONE SOD PHOS 10 MG/ML VIAL INJ (09:34)
[2024-06-25] MEDS: IOHEXOL 240 MG/ML - 10 ML VIAL 24 MG INJ (09:34)
[2024-06-25] MEDS: BUPIVACAINE HCL 0.25% PF 25 MG/10 ML VIAL INJ (09:34)
[2024-06-25] MEDS: 0.9 % SODIUM CHLORIDE 10 ML SYRINGE - SALINE FLUSH INJ (09:34)
--- NOTE | 2024-06-25 09:34 | P.ON_ITS ---
Date of procedure: 06/25/24 Pre-op diagnosis: Pain due to lumbar stenosis with neurogenic claudication Post-op diagnosis: same as pre-op Procedure: Procedure: Left L3-4, L4-5 transforaminal epidural steroid injection Medications: Bupivacaine 0.25% 2cc, lidocaine 2% 1cc, depomedrol 80mg The patient was seen and examined in the preoperative holding area.? Informed consent was obtained and placed on the chart.? Patient was brought to the medical procedure unit and placed in the prone position where a timeout was completed verifying the correct patient, procedure site, position, and planned special equipment using sterile aseptic technique.? Under direct fluoroscopic visualization a 25-gauge Quincke tipped spinal needle was advanced to the designated neural foramen where contrast dye was injected to show adequate spread.? The needle was inserted at level left L3-4. There was no evidence of vascular or adverse uptake.? Epidural spread was appreciated.? The above- mentioned injectate was then placed in a 1.5 mL aliquot preceded by negative aspiration.? The needle was removed. The needle was inserted and the procedure repeated at level left L4-5.? The surgery site was covered.? Patient was taken to the postprocedural recovery area and monitored for an appropriate length of time before found suitable for discharge in the accompaniment of a responsible adult. Anesthesia: Local Surgeon: Christian Jameson Pathology: none sent Condition: stable Disposition: no change
[2024-06-25] MEDS: LIDOCAINE HCL 2% 400 MG/20 ML MDV 3 ML INJ (09:35)
== END 2024-06-25 09:37 | disposition home or self-care (01) ==
LOC: SURGOUT 08:32
PROVIDERS: PCP Internal Medicine; Visit Provider Anesthesiology
DX: M48.062 Spinal stenosis, lumbar region with neurogenic claudication (principal); M54.50 Low back pain, unspecified
CPT/HCPCS: 64483; 64484; J0665; J1100; Q9966

== ENCOUNTER 2024-07-05 10:49 | Outpatient (OUT) | payer OTHER, SELFPAY ==
--- NOTE | 2024-07-05 11:19 | P.CN_ITS ---
Consult Note: HPI Data of Consult Patient: known to practice within the last 3 years Requesting Physician: Anh Gatica NP Primary Care Provider: ULYSSES RICHARDSON DO Consult Narrative Reason for consult: low back, left leg pain Narrative: 54yof who presents for evaluation. low back pain with radiation into left lower extremity. imaging shows multilevel degnerative changes, stenosis, fusion at l3- 4. fusion performed last year, had infection and reoperated last year. has engaged in a series of provider directed home exercises >6 weeks, without lasting benefit. currently on celebrex 200mg BID and flexeril 10mg TID PRN with drowsiness from flexeril. recently underwent left L3/4/5 TFESI with significant relief day of, no ongoing relief. Pain 5/10 increasing to 8/10 with standing, walking, housework, lifting, twisting, sleep, weather changes. cc:: CC: Anh Gatica NP Review of Systems ROS Status of ROS 10 or more systems reviewed and unremark able except as noted in history and below Musculoskeletal Reports: back pain, extremity pain and joint pain PFSH PFSH Medical History DDD (degenerative disc disease) Osteopenia ?M85.80 - Other specified disorders of bone density and structure, unspecifie d site (ICD-10) Back pain ?M54.9 - Dorsalgia, unspecified (ICD-10) Depression ?F32.A - Depression, unspecified (ICD-10) Spinal stenosis ?M48.00 - Spinal stenosis, site unspecified (ICD-10) Neuropathy ?G62.9 - Polyneuropathy, unspecified (ICD-10) Migraine ?G43.909 - Migraine, unspecified, not intractable, without status migrainosus (ICD-10) GERD (gastroesophageal reflux disease) ?K21.9 - Gastro-esophageal reflux disease without esophagitis (ICD-10) Delayed recovery from anesthesia Menopause ?Z78.0 - Asymptomatic menopausal state (ICD-10) Surgical History S/P insertion of intrathecal pump ?Z98.890 - Other specified postprocedural states (ICD-10) S/P cervical spinal fusion ?Z98.1 - Arthrodesis status (ICD-10) Family History Other Family history of colon cancer Family history of diabetes mellitus Social History Within the past year, how often did you have a drink containing alcohol: never Score interpretation: A score less than 3 is consistent with normal alcohol consumption. Smoking status: Current every day smoker What tobacco products do you use: cigarettes Packs per day: 1 Years smoked: 39 Smoking pack-years: 39.00 Non-prescribed substance use: denies use Highest level of school completed/degree received: high school graduate Meds Home Medications and Allergies Home Medications ?Medication ?Instructions ?Recorded ?Confirmed ?Type duloxetine 60 mg capsule,delayed 60 mg PO DAILY 08/17/23 06/25/24 History release (Cymbalta) rosuvastatin 5 mg tablet (Crestor) 5 mg PO DAILY 08/17/23 06/25/24 History celecoxib 200 mg capsule (Celebrex) 200 mg PO BID #60 caps 06/11/24 06/25/24 Rx cyclobenzaprine 10 mg tablet 10 mg PO TID PRN muscle spasm #60 06/11/24 06/25/24 Rx tabs gabapentin enacarbil 600 mg 600 mg PO DAILY 06/11/24 06/25/24 History tablet,extended release ([facility]) Allergies Allergy/AdvReac Type Severity Reaction Status Date / Time morphine AdvReac overdose Verified 06/25/24 08:57 Exam Narrative Exam Narrative: Psych-alert and oriented x 3. Attentive and appropriate, constitutionally normal, displays normal mood and affect per situation. There are no obvious deficits in memory, reasoning, or intellect.? Skin-no obvious rashes, bruising, erythema noted to the patient's area of pain.? Extremities- extremities are warm with minimal edema and palpable pulses. Lumbar-tenderness to palpation noted in the lumbar spine and paraspinal musculature. Pain is elicited with flexion, extension, and lateral rotation of the lumbar spine. Range of motion is diminished with these motions. Facet loading maneuvers are positive. Strength-noted to be unremarkable with the exception of decreased strength rated at 4 out of 5 in left quadriceps femoris, anterior tibialis. Sensory-no notable sensory deficits in the bilateral lower extremities to touch or pinprick in all dermatomal distributions with the exception to decreased sensation to the left L4 5,s1 dermatomal distribution. Sacroiliac - tender to palpation over left PSIS. Positive Melquiades's on the left. Positive thigh thrust on the left. Coordination remains intact.? Gait remains non-antalgic. Results Additional Findings Additional findings: If on a controlled substance or opioids, I have checked an [place] report on this patient and there are no aberrancies noted in the prescribing history.??If on a controlled substance or opioid a drug screen was completed and reviewed within t he last year, and if there has not been a drug screen completed we ordered one today to monitor higher risk, state monitored pain medication use. As part of providing excellent, safe, comprehensive care, the following was completed at our patient's visit: 1. A medication reconciliation and review to ensure accurate knowledge of current/active medications, including asking our patients to inform us about any kjeu-vme-qcddnef medications or herbal remedies/nutritional supplements/alternative remedies. 2. A review to specifically ensure our patients have had annual screening for screening for depression, screening for tobacco use, and screening for unhealthy alcohol use. For concerning screenings had a discussion with the patient, provided patient education, and recommended follow-up with primary care provider when appropriate. If patient noted with a risk of falling, they received education on strength, gait, and balance training to prevent future risk of falling. Portions of this note may have been carried over from the previous visit and updated as appropriate. Please note this office utilizes paper charting in addition to the electronic medical record. A list of current medications, vitals, and PMH is available there as the clinical staff outside of myself do not have access to [email or web address] charting during the clinic day operations. As part of providing quality comprehensive care the current medications, vitals, and PMH were reviewed in the paper chart. Assessment and Plan Assessment and Plan (1) Lumbar stenosis with neurogenic claudication: (2) Lumbar spondylosis: (3) Sacroiliac joint dysfunction of left side: (4) Lumbar postlaminectomy syndrome: Plan 54yof who presents for evaluation. failed conservative measures, as noted. imaging reviewed, as noted. given symptoms and imaging, prudent to attempt left sij injection under fluoroscopic guidance. she is in agreement. meds reviewed, adjust flexeril 5-10mg TID PRN. follow up after procedure.
== END 2024-07-05 10:50 | disposition home or self-care (01) ==
LOC: PM 10:49
PROVIDERS: PCP Internal Medicine; Visit Provider Nurse Practitioner
DX: M48.062 Spinal stenosis, lumbar region with neurogenic claudication (principal); M47.816 Spondylosis without myelopathy or radiculopathy, lumbar region; M53.3 Sacrococcygeal disorders, not elsewhere classified; M96.1 Postlaminectomy syndrome, not elsewhere classified
CPT/HCPCS: G0463

== ENCOUNTER 2024-07-23 07:44 | Day surgery (SDC) | payer OTHER, SELFPAY ==
--- OUTSIDE RECORDS SUMMARY | 2024-07-23 08:06 | XMS_ITS | CCD ---
Author Organization [facility] [employer] Care Team Providers Care Stamping Mill Tender Name Role Phone MAGED MURDOCK Unavailable Unavailable LINDSEY AGUILAR (PA) Unavailable Unavail able MONICA YAN (SACK LIFTER) Unavailable Unavailabl TEJAS Benavidez JR Unavailable Unavail able MAGED MURDOCK Unavailable Unavailable LINDSEY AGUILAR (PA) Unavailable Unavail able UNKNOWN, PROVIDER Unavailable Unavailable UNKNOWN, PROVIDER Unavailable Unavailable TEJAS RICHARDSON Unavailable Unavailable TEJAS RICHARDSON Unavailable Unavailable PEREZ LESTER Admitting Unavailable TEJAS RICHARDSON Primary Care Unavailable AZAR MAN Consulting Unavailable PEREZ LESTER Attending Unavailable PEREZ LESTER Consulting Unavailable MAT CASEY Consulting Unavailable Fela Smith Unavailable WALI BUSTILLOS Consulting Unavailable SHAIKH SALES Consulting Unavailable CALEB, SELVON Referring Unavailable VALONE JR, TEJAS L Primary Care Unavailable CALEB, SAMIAVON Referring Unavailable VALONE JR, TEJAS L Primary Care Unavailable ALYSSAONE , TEJAS L Referring Unavailable VALONE , TEJAS L Primary Care Unavailable VALONE , TEJAS L Referring Unavailable VALONE , TEJAS L Primary Care Unavailable ALYSSAONE , TEJAS L Referring Unavailable VALONE JR, TEJAS [...] Care Unavailable PHYSICIAN, UNKNOWN Referring Unavailable VALONE , TEJAS L Primary Care Unavailable VELVET, FELA S Referring Unavailable VALONE , TEJAS L Primary Care Unavailable PHYSICIAN, UNKNOWN Referring Unavailable VALONE , TEJAS L Primary Care Unavailable BLANK, FELA S Referring Unavailable VALONE , TEJAS L Primary Care Unavailable BLANK, FELA S Referring Unavailable VALONE , TEJAS L Primary Care Unavailable Tejas Richardson MD Primary Care Provider MAGED CONTRERAS Attending Unavailable GINA RIDDLE Attending Unavailable Gisell CHONG, Christian Singletary Attending Unavailable [facility] Unavail able Gisell CHONG, Christian Singletary Attending Unavailable [facility] Unavail able Zahira CHONG, Pavel Carr Attending Unavailable [facility] Unavail able Hanane Jolly Attending U navailable [facility] Unavail able Zahira CHONG, Pavel Carr Attending Unavailable [facility] Bri CHONG, Nicole Neri Referring Unavailabl e [facility] Unavail able Allergies Allergy Classification Reported Allergen(s) Allergy Type Date of Onset Reaction(s) Facility (2 sources) Morphine; Translations: [MORPHINE] Drug Allergy 10-18-2022 [facility] Medications Current Medications Medication Drug Class(es) Dates Sig (Normalized) Sig (Original) calcium carbonate 1250 mg / cholecalciferol 200 unt oral tablet (3 sources) Vitamin D take 1 tablet by mouth in the morning, then take 1 tablet by mouth once at mealtime Calcium Carb-Cholecalcife rol (Oyster Shell Calcium w/D) 500-5 MG-MCG tablet Take 1 tablet by mouth in the morning and 1 tablet in the evening. Take with meals. Active celecoxib 200 mg oral capsule (3 sources) Nonsteroidal Anti-inflammatory Drug Start: 06-11-2024 take 1 capsule by mouth in the morning celecoxib (CeleBREX) 200 MG capsule Take 200 mg by mouth in the morning and 200 mg before bedtime. 06/11/2024 Active DULoxetine 60 mg delayed release oral capsule (3 sources) Serotonin and Norepinephrine Reuptake Inhibitor take 1 capsule by mouth in the morning DULoxetine (Cymbalta) [address] capsule Take 60 mg by mouth in the morning. Active gabapentin enacarbil 600 mg extended release oral tablet (3 sources) Anti-epileptic Agent take 1 tablet by mouth in the morning gabapentin enacarbil (Horizant) 600 MG tablet controlled-releas e ER tablet Take 600 mg by mouth in the morning. Active ibuprofen 800 mg oral tablet (3 sources) Nonsteroidal Anti-inflammatory Drug ibuprofen 800 MG tablet Active linaclotide 0.145 mg oral capsule (3 sources) Guanylate Cyclase-C Agonist linaCLOtide (Linzess) 145 MCG capsule Active Multiple Vitamins-Minerals (MULTIVITAMIN ADULTS PO) (3 sources) take 1 tablet by mouth in the morning Multiple Vitamins-Minerals (MULTIVITAMIN ADULTS PO) Take 1 tablet by mouth in the morning. Active rosuvastatin calcium 5 mg oral tablet (3 sources) HMG-CoA Reductase Inhibitor Start: 05-13-2024 take 1 tablet by mouth once daily rosuvastatin (Crestor) 5 MG tablet Take 5 mg by mouth Daily 05/13/2024 Active Problems Active Problems Problem Classification Problem Date Documented Date Episodic/Chronic Complication of device; implant or graft (4 sources) Breakdown (mechanical) of other specified internal prosthetic devices, implants and grafts, initial encounter; Translations: [Infection and inflammatory reaction due to other nervous system device, implant or graft, initial encounter] Onset: 03-18-2020 Episodic Headache; including migraine (3 sources) Refractory migraine without aura; Translations: [Chronic migraine without aura, intractable, with status migrainosus] Onset: 06-01-2017 Resolved: 06-26-2024 06-26-2024 Chronic Immunizations and screening for infectious disease (1 [...] SENSORINEURAL HEARING LOSS] Onset: 03-18-2020 Chronic Other ear and sense organ disorders (2 sources) Sensorineural hearing loss, unilateral, left ear, with unrestricted hearing on the contralateral side; Translations: [Sensorineural hearing loss, unilateral] 06-26-2024 Chronic Other ear and sense organ disorders (1 source) Conductive hearing loss, unilateral, left ear, with unrestricted hearing on the contralateral side; Translations: [Conductive hearing loss, unilateral] 06-26-2024 Chronic Other ear and sense organ disorders (2 sources) Impacted cerumen in left ear; Translations: [Impacted cerumen, left ear] 06-26-2024 Episodic Other injuries and conditions due to external [...] unspecified; Translations: [Edema, unspecified] Onset: 03-07-2024 Episodic Substance-related disorders (1 source) Nicotine dependence, cigarettes, uncomplicated; Translations: [NICOTINE DEPEND CIGARETTES UNCOMP] Onset: 03-18-2020 Chronic Unclassified (3 sources) Unknown / UNK(Unknown) Onset: 12-08-2017 Past or Other Problems Problem Classification Problem Date Documented Da te Episodic/Chronic Complications of surgical procedures or medical care (3 sources) Dehiscence of surgical wound; Translations: [Disruption of external operation (surgical) wound, not elsewhere classified, initial encounter] Onset: 06-26-2024 Resolved: 06-26-2024 06-26-2024 Episodic Fluid and electrolyte disorders (1 source) Hypokalemia; Translations: [Hypokalemia] Onset: 08-22-2023 Episodic Genitourinary symptoms and ill-defined conditions (3 sources) Urinary incontinence; Translations: [Unspecified urinary incontinence] Onset: 06-26-2024 Resolved: 06-26-2024 06-26-2024 Chronic Menopausal disorders (3 sources) Atrophy of vagina; Translations: [Postmenopausal atrophic vaginitis] Onset: 07-29-2020 Resolved: 06-26-2024 06-26-2024 Chronic Other aftercare (3 sources) Follow-up orthopedic assessment; Translations: [Encounter for other orthopedic aftercare] Onset: 06-26-2024 Resolved: 06-26-2024 06-26-2024 Episodic Other connective tissue disease (3 sources) H/O: arthrodesis; Translations: [Arthrodesis status] Onset: 06-26-2024 Resolved: 06-26-2024 06-26-2024 Episodic Other connective tissue disease (3 sources) Fibromyalgia; Translations: [Fibromyalgia] Onset: 08-16-2016 Resolved: 06-26-2024 06-26-2024 Episodic Other connective tissue disease (3 sources) Trochanteric bursitis of left hip; Translations: [Trochanteric bursitis, left hip] Onset: 06-26-2024 Resolved: 06-26-2024 06-26-2024 Episodic Other female genital disorders (3 sources) Pain in female genitalia on intercourse; Translations: [Unspecified dyspareunia] Onset: 06-17-2020 Resolved: 06-26-2024 06-26-2024 Chronic Other nervous system disorders (3 sources) Numbness; Translations: [Anesthesia of skin] Onset: 04-27-2018 Resolved: 06-26-2024 06-26-2024 Episodic Other nervous system disorders (3 sources) Numbness of hand; Translations: [Anesthesia of skin] Onset: 04-27-2018 Resolved: 06-26-2024 06-26-2024 Episodic Residual codes; unclassified (3 sources) Acute confusion; Translations: [Disorientation, unspecified] Onset: 04-27-2018 Resolved: 06-26-2024 06-26-2024 Episodic Screening and history of mental health and substance abuse codes (3 sources) Ex-smoker; Translations: [Personal history of nicotine dependence] Onset: 06-26-2024 Resolved: 06-26-2024 06-26-2024 Episodic Spondylosis; intervertebral disc disorders; other back problems (13 sources) Other spondylosis with radiculopathy, cervical region; Translations: [Other spondylosis with radiculopathy, lumbar region] Onset: 05-04-2017 Resolved: 06-26-2024 06-26-2024 Chronic Spondylosis; intervertebral disc disorders; other back problems (18 sources) Radiculopathy, cervical region; Translations: [Radiculopathy, lumbar region] Onset: 12-01-2015 Resolved: 06-26-2024 06-26-2024 Episodic Results Test Name Value Interpretation Reference Range Facility Auditory function testson Right Ear: Normal he brooks Left Ear: Mild to moderate hearing loss above 4K Hz [facility] COMPLETE BLOOD COUNTon 04-24 Erythrocyte distribution width (RBC) [Ratio] 16.6 % High 11.5-15.0 [facility] Comment on above: Performed By: #### C KJ, FLOUR INSPECTOR #### [facility] ([id number]) [address], [address] [place] [address] Hematocrit (Bld) [Volume fraction] 40.9 % Normal 35-47 [facility] Comment on above: Performed By: #### C KJ, FLOUR INSPECTOR #### [facility] ([id number]) [address], [address] [place] [address] Hemoglobin (Bld) [Mass/Vol] 13.5 g/dL Normal 11.7-15.5 [facility] Comment on above: Performed By: #### C KJ, FLOUR INSPECTOR #### [facility] ([id number]) [address], [address] [place] [address] MCH (RBC) [Entitic mass] 32.0 pg Normal 27-34 [facility] Comment on above: Performed By: #### C KJ, FLOUR INSPECTOR #### [facility] ([id number]) [address], [address] [place] [address] MCHC (RBC) [Mass/Vol] 33.1 g/dL Normal 32-36 [facility] Comment on above: Performed By: #### C KJ, FLOUR INSPECTOR #### [facility] ([id number]) [address], [address] [place] [address] MCV (RBC) [Entitic vol] 97 fL Normal 80-100 [facility] Comment on above: Performed By: #### C KJ, FLOUR INSPECTOR #### [facility] ([id number]) [address], [address] [place] [address] Platelet mean volume (Bld) [Entitic vol] 8.8 fL Normal 7-12 [facility] Comment on above: Performed By: #### C KJ, FLOUR INSPECTOR #### [facility] ([id number]) [address] [address] Platelets (Bld) [#/Vol] 328 10*3/uL Normal 150-450 [facility] Comment on above: Performed By: #### C KJ, FLOUR INSPECTOR #### [facility] ([id number]) [address] [address] RBC COUNT 4.23 X10E12/L Normal 3.80-5.20 [facility] Comment on above: Performed By: #### C KJ, FLOUR INSPECTOR #### [facility] ([id number]) [address] [address] WBC (Bld) [#/Vol] 9.0 10*3/uL Normal 4.0-11.0 [facility] Comment on above: Performed By: #### C KJ, FLOUR INSPECTOR #### [facility] ([id number]) [address] [address] CREATININEon 04-24-2024 Creatinine [Mass/Vol] 0.72 mg/dL Normal 0.40-1.00 [facility] Comment on above: Result Comment: METH OD TRACEABLE TO IDMS STANDARD Performed By: #### C KJ, FLOUR INSPECTOR #### [facility] ([id number]) [address] [address] eGFR (CKD-EPI) NON-RACE DEPENDENT >90 Normal >59 [facility] Comment on above: Result Comment: Reported eGFR is based on the CKD-EPI 2020 equation that does not use a race coefficient. Performed By: #### C KJ, FLOUR INSPECTOR #### [facility] ([id number]) [address] [address] COMPLETE BLOOD COUNTon 04-11 Erythrocyte distribution width (RBC) [Ratio] 16.9 % High 11.5-15.0 [facility] Comment on above: Performed By: #### C KJ, FLOUR INSPECTOR #### [facility] ([id number]) [address], [address] [place] [address] Hematocrit (Bld) [Volume fraction] 41.0 % Normal 35-47 [facility] Comment on above: Performed By: #### C KJ, FLOUR INSPECTOR #### [facility] ([id number]) [address], [address] [place] [address] Hemoglobin (Bld) [Mass/Vol] 13.8 g/dL Normal 11.7-15.5 [facility] Comment on above: Performed By: #### C KJ, FLOUR INSPECTOR #### [facility] ([id number]) [address], [address] [place] [address] MCH (RBC) [Entitic mass] 32.3 pg Normal 27-34 [facility] Comment on above: Performed By: #### C KJ, FLOUR INSPECTOR #### [facility] ([id number]) [address], [address] [place] [address] MCHC (RBC) [Mass/Vol] 33.5 g/dL Normal 32-36 [facility] Comment on above: Performed By: #### C KJ, FLOUR INSPECTOR #### [facility] ([id number]) [address], [address] [place] [address] MCV (RBC) [Entitic vol] 96 fL Normal 80-100 [facility] Comment on above: Performed By: #### C KJ, FLOUR INSPECTOR #### [facility] ([id number]) [address], [address] [place] [address] Platelet mean volume (Bld) [Entitic vol] 9.1 fL Normal 7-12 [facility] Comment on above: Performed By: #### C KJ, FLOUR INSPECTOR #### [facility] ([id number]) [address] [address] Platelets (Bld) [#/Vol] 291 10*3/uL Normal 150-450 [facility] Comment on above: Performed By: #### Jacqueline UNDERWOOD, FLOUR INSPECTOR #### [facility] ([id number]) [address] [address] RBC COUNT 4.27 X10E12/L Normal 3.80-5.20 [facility] Comment on above: Performed By: #### C KJ, FLOUR INSPECTOR #### [facility] ([id number]) [address] [address] WBC (Bld) [#/Vol] 8.9 10*3/uL Normal 4.0-11.0 [facility] Comment on above: Performed By: #### Jacqueline UNDERWOOD, FLOUR INSPECTOR #### [facility] ([id number]) [address] [address] CREATININEon 04-11-2024 Creatinine [Mass/Vol] 0.73 mg/dL Normal 0.40-1.00 [facility] Comment on above: Result Comment: METH OD TRACEABLE TO IDMS STANDARD Performed By: #### Jacqueline UNDERWOOD, FLOUR INSPECTOR #### [facility] ([id number]) [address] [address] eGFR (CKD-EPI) NON-RACE DEPENDENT >90 Normal >59 [facility] Comment on above: Result Comment: Reported eGFR is based on the CKD-EPI 2020 equation that does not use a race coefficient. Performed By: #### Jacqueline UNDERWOOD, FLOUR INSPECTOR #### [facility] ([id number]) [address] [address] ASPIRATE CULTUREon 4 Bacteria identified Aer cx Nom (Asp) SPECIMEN [...] <=1 F PIPERACIL/TAZOBACTAM S <=4 F Susceptible [facility] Comment on above: Performed By: #### 5 97-5 #### [facility] ([id number]) [address] [address] [place] [address] COMPLETE BLOOD COUNTon 04-04 Erythrocyte distribution width (RBC) [Ratio] 16.6 % High 11.5-15.0 [facility] Comment on above: Performed By: #### Jacqueline ARAUJO [facility], 1988-09, 33253-2 #### [facility] ([id number]) [address] [address] [place] [address] Hematocrit (Bld) [Volume fraction] 37.5 % Normal 35-47 [facility] Comment on above: Performed By: #### Jacqueline ARAUJO [facility], 1988-09, 43147-5 #### [facility] ([id number]) [address] [address] [place] [address] Hemoglobin (Bld) [Mass/Vol] 12.7 g/dL Normal 11.7-15.5 [facility] Comment on above: Performed By: #### Jacqueline ARAUJO [facility], 1988-09, 57037-0 #### [facility] ([id number]) [address] [address] [place] [address] MCH (RBC) [Entitic mass] 31.6 pg Normal 27-34 [facility] Comment on above: Performed By: #### Jacqueline ARAUJO [facility], 1988-09, 15564-8 #### [facility] ([id number]) [address] [address] [place] [address] MCHC (RBC) [Mass/Vol] 33.8 g/dL Normal 32-36 [facility] Comment on above: Performed By: #### Jacqueline ARAUJO CMP, 1988-09, 03671-6 #### [facility] ([id number]) [address], [facility] [address] [place] [address] MCV (RBC) [Entitic vol] 94 fL Normal 80-100 [facility] Comment on above: Performed By: #### Jacqueline ARAUJO [facility], 1988-09, 44697-1 #### [facility] ([id number]) [address], [facility] [address] [place] [address] Platelet mean volume (Bld) [Entitic vol] 8.9 fL Normal 7-12 [facility] Comment on above: Performed By: #### Jacqueline ARAUJO [facility], 1988-09, 49245-2 #### [facility] ([id number]) [address], [address] [place] [address] Platelets (Bld) [#/Vol] 230 10*3/uL Normal 150-450 [facility] Comment on above: Performed By: #### Jacqueline ARAUJO [facility], 1988-09, 84020-2 #### [facility] ([id number]) [address] [address] [place] [address] RBC COUNT 4.01 X10E12/L Normal 3.80-5.20 [facility] Comment on above: Performed By: #### Jacqueline ARAUJO [facility], 1988-09, 30306-6 #### [facility] ([id number]) [address], [facility] [address] [place] [address] WBC (Bld) [#/Vol] 9.1 10*3/uL Normal 4.0-11.0 [facility] Comment on above: Performed By: #### Jacqueline ARAUJO [facility], 1988-09, 20355-4 #### [facility] ([id number]) [address] [address] CREATININEon 04-04-2024 Creatinine [Mass/Vol] 0.60 mg/dL Normal 0.40-1.00 [facility] Comment on above: Result Comment: METH OD TRACEABLE TO IDMS STANDARD Performed By: #### C ARANZA ARAUJO, 1988-09, 18419-6 #### [facility] ([id number]) [address] [address] eGFR (CKD-EPI) NON-RACE DEPENDENT >90 Normal >59 [facility] Comment on above: Result Comment: Reported eGFR is based on the CKD-EPI 2020 equation that does not use a race coefficient. Performed By: #### C ARANZA ARAUJO, 1988-09, 35947-6 #### [facility] ([id number]) [address] [address] COMPLETE BLOOD COUNTon 03-27 Erythrocyte distribution width (RBC) [Ratio] 17.2 % High 11.5-15.0 [facility] Comment on above: Performed By: #### Jacqueline ARAUJO CMP, 23058-2 #### [facility] ([id number]) [address] [address] Hematocrit (Bld) [Volume fraction] 40.0 % Normal 35-47 [facility] Comment on above: Performed By: #### Jacqueline ARAUJO CMP, 77378-5 #### [facility] ([id number]) [address] [address] Hemoglobin (Bld) [Mass/Vol] 13.5 g/dL Normal 11.7-15.5 [facility] Comment on above: Performed By: #### Jacqueline ARAUJO CMP, 1988-09, 22954-6 #### [facility] ([id number]) [address] [address] MCH (RBC) [Entitic mass] 31.7 pg Normal 27-34 [facility] Comment on above: Performed By: #### Jacqueline ARAUJO CMP, 1988-09, 32006-6 #### [facility] ([id number]) [address], [address] [place] [address] MCHC (RBC) [Mass/Vol] 33.7 g/dL Normal 32-36 [facility] Comment on above: Performed By: #### Jacqueline ARAUJO [facility], 1988-09, 29242-8 #### [facility] ([id number]) [address], [facility] [address] [place] [address] MCV (RBC) [Entitic vol] 94 fL Normal 80-100 [facility] Comment on above: Performed By: #### Jacqueline ARAUJO CMP, 1988-09, 38969-7 #### [facility] ([id number]) [address], [address] [place] [address] Platelet mean volume (Bld) [Entitic vol] 8.5 fL Normal 7-12 [facility] Comment on above: Performed By: #### Jacqueline ARAUJO [facility], 1988-09, 31503-6 #### [facility] ([id number]) [address], [address] [place] [address] Platelets (Bld) [#/Vol] 332 10*3/uL Normal 150-450 [facility] Comment on above: Performed By: #### Jacqueline ARAUJO CMP, 1988-09, 13581-5 #### [facility] ([id number]) [address], [address] [place] [address] RBC COUNT 4.26 X10E12/L Normal 3.80-5.20 [facility] Comment on above: Performed By: #### Jacqueline ARAUJO CMP, 1988-09, 24071-0 #### [facility] ([id number]) [address], [address] [place] [address] WBC (Bld) [#/Vol] 10.4 10*3/uL Normal 4.0-11.0 [facility] Comment on above: Performed By: #### Jacqueline ARAUJO CMP, 1988-09, 34904-8 #### [facility] ([id number]) [address], [address] [address] CREATININEon 03-27-2024 Creatinine [Mass/Vol] 0.69 mg/dL Normal 0.40-1.00 [facility] Comment on above: Result Comment: METH OD TRACEABLE TO IDMS STANDARD Performed By: #### C ARANZA ARAUJO, 1988-09, 31769-5 #### [facility] ([id number]) [address] [address] eGFR (CKD-EPI) NON-RACE DEPENDENT >90 Normal >59 [facility] Comment on above: Result Comment: Reported eGFR is based on the CKD-EPI 2020 equation that does not use a race coefficient. Performed By: #### C ARANZA ARAUJO, 1988-09, 54191-6 #### [facility] ([id number]) [address] [address] COMPLETE BLOOD COUNTon 03-20 Erythrocyte distribution width (RBC) [Ratio] 19.0 % High 11.5-15.0 [facility] Comment on above: Performed By: #### C KJ, FLOUR INSPECTOR #### [facility] ([id number]) [address] [address] Hematocrit (Bld) [Volume fraction] 37.9 % Normal 35-47 [facility] Comment on above: Performed By: #### Jacquleine UNDERWOOD, FLOUR INSPECTOR #### [facility] ([id number]) [address] [address] Hemoglobin (Bld) [Mass/Vol] 12.6 g/dL Normal 11.7-15.5 [facility] Comment on above: Performed By: #### Jacqueline UNDERWOOD, FLOUR INSPECTOR #### [facility] ([id number]) [address], [address] [place] [address] MCH (RBC) [Entitic mass] 31.8 pg Normal 27-34 [facility] Comment on above: Performed By: #### C BC, FLOUR INSPECTOR #### [facility] ([id number]) [address], [address] [place] [address] MCHC (RBC) [Mass/Vol] 33.2 g/dL Normal 32-36 [facility] Comment on above: Performed By: #### C KJ, FLOUR INSPECTOR #### [facility] ([id number]) [address], [address] [place] [address] MCV (RBC) [Entitic vol] 96 fL Normal 80-100 [facility] Comment on above: Performed By: #### C KJ, FLOUR INSPECTOR #### [facility] ([id number]) [address], [address] [place] [address] Platelet mean volume (Bld) [Entitic vol] 8.4 fL Normal 7-12 [facility] Comment on above: Performed By: #### C KJ, FLOUR INSPECTOR #### [facility] ([id number]) [address], [address] [place] [address] Platelets (Bld) [#/Vol] 343 10*3/uL Normal 150-450 [facility] Comment on above: Performed By: #### C KJ, FLOUR INSPECTOR #### [facility] ([id number]) [address], [address] [place] [address] RBC COUNT 3.95 X10E12/L Normal 3.80-5.20 [facility] Comment on above: Performed By: #### C BC, FLOUR INSPECTOR #### [facility] ([id number]) [address], [address] [place] [address] WBC (Bld) [#/Vol] 7.6 10*3/uL Normal 4.0-11.0 [facility] Comment on above: Performed By: #### C KJ, FLOUR INSPECTOR #### [facility] ([id number]) [address], [address] [place] [address] CREATININEon 03-20-2024 Creatinine [Mass/Vol] 0.70 mg/dL Normal 0.40-1.00 [facility] Comment on above: Result Comment: METH OD TRACEABLE TO IDMS STANDARD Performed By: #### C KJ, FLOUR INSPECTOR #### [facility] ([id number]) [address], [facility] [address] [place] [address] eGFR (CKD-EPI) NON-RACE DEPENDENT >90 Normal >59 [facility] Comment on above: Result Comment: Reported eGFR is based on the CKD-EPI 2020 equation that does not use a race coefficient. Performed By: #### Jacqueline UNDERWOOD, FLOUR INSPECTOR #### [facility] ([id number]) [address], [address] [address] CBC AND AUTO DIFFon 03-16-20 24 ABSOLUTE BASOPHIL 0.0 X10E9/L Normal 0.0-0.2 [facility] Comment on above: Performed By: #### Jacqueline ARAUJO CMP, 1987-09 #### [facility] ([id number]) [address], [facility] [address] [place] [address] ABSOLUTE NEUTROPHIL 5.5 X10E9/L Normal 1.5-6.6 [facility] Comment on above: Performed By: #### Jacqueline ARAUJO CMP, 1987-09 #### [facility] ([id number]) [address], [facility] [address] [place] [address] Basophils/100 WBC (Bld) 0.4 % Normal [facility] Comment on above: Performed By: #### Jacqueline ARAUJO CMP, 1987-09 #### [facility] ([id number]) [address], [facility] [address] [place] [address] Eosinophils (Bld) [#/Vol] 0.1 10*3/uL Normal 0.0-0.4 [facility] Comment on above: Performed By: #### Jacqueline ARAUJO CMP, 1987-09 #### [facility] ([id number]) [address], [address] [place] [address] Eosinophils/100 WBC (Bld) 1.9 % Normal [facility] Comment on above: Performed By: #### Jacqueline ARAUJO CMP, 1987-09 #### [facility] ([id number]) [address], [facility] [address] [place] [address] Erythrocyte distribution width (RBC) [Ratio] 18.1 % High 11.5-15.0 [facility] Comment on above: Performed By: #### Jacqueline ARAUJO CMP, 1987-09 #### [facility] ([id number]) [address], [address] [place] [address] Hematocrit (Bld) [Volume fraction] 39.2 % Normal 35-47 [facility] Comment on above: Performed By: #### Jacqueline ARAUJO CMP, 1987-09 #### [facility] ([id number]) [address], [facility] [address] [place] [address] Hemoglobin (Bld) [Mass/Vol] 13.4 g/dL Normal 11.7-15.5 [facility] Comment on above: Performed By: #### Jacqueline ARAUJO CMP, 1987-09 #### [facility] ([id number]) [address], [address] [place] [address] Lymphocytes (Bld) [#/Vol] 1.7 10*3/uL Normal 1.0-3.5 [facility] Comment on above: Performed By: #### Jacqueline ARAUJO CMP, 1987-09 #### [facility] ([id number]) [address], [address] [place] [address] Lymphocytes/100 WBC (Bld) 22.1 % Normal [facility] Comment on above: Performed By: #### Jacqueline ARAUJO CMP, 1987-09 #### [facility] ([id number]) [address], [address] [place] [address] MCH (RBC) [Entitic mass] 32.2 pg Normal 27-34 [facility] Comment on above: Performed By: #### Jacqueline ARAUJO CMP, 1987-09 #### [facility] ([id number]) [address], [address] [place] [address] MCHC (RBC) [Mass/Vol] 34.2 g/dL Normal 32-36 [facility] Comment on above: Performed By: #### Jacqueline ARAUJO CMP, 1987-09 #### [facility] ([id number]) [address], [address] [place] [address] MCV (RBC) [Entitic vol] 94 fL Normal 80-100 [facility] Comment on above: Performed By: #### Jacqueline ARAUJO CMP, 1987-09 #### [facility] ([id number]) [address], [address] [place] [address] Monocytes (Bld) [#/Vol] 0.5 10*3/uL Normal 0-0.9 [facility] Comment on above: Performed By: #### Jacqueline ARAUJO CMP, 1987-09 #### [facility] ([id number]) [address], [address] [place] [address] Monocytes/100 WBC (Bld) 6.5 % Normal [facility] Comment on above: Performed By: #### Jacqueline ARAUJO CMP, 1987-09 #### [facility] ([id number]) [address], [address] [place] [address] Neutrophils/100 WBC (Bld) 69.1 % Normal [facility] Comment on above: Performed By: #### Jacqueline ARAUJO CMP, 1987-09 #### [facility] ([id number]) [address] [address] [place] [address] Platelet mean volume (Bld) [Entitic vol] 8.1 fL Normal 7-12 [facility] Comment on above: Performed By: #### Jacqueline ARAUJO CMP, 1987-09 #### [facility] ([id number]) [address] [address] [place] [address] Platelets (Bld) [#/Vol] 358 10*3/uL Normal 150-450 [facility] Comment on above: Performed By: #### Jacqueline ARAUJO CMP, 1987-09 #### [facility] ([id number]) [address] [address] [place] [address] RBC COUNT 4.17 X10E12/L Normal 3.80-5.20 [facility] Comment on above: Performed By: #### Jacqueline ARAUJO CMP, 1987-09 #### [facility] ([id number]) [address] [address] [place] [address] WBC (Bld) [#/Vol] 7.9 10*3/uL Normal 4.0-11.0 [facility] Comment on above: Performed By: #### Jacqueline ARAUJO CMP, 1987-09 #### [facility] ([id number]) [address] [address] [place] [address] COMPREHENSIVE METABOLIC PANE Alexandru 03-16-2024 Albumin [Mass/Vol] 3.4 g/dL Normal 3.2-5.3 [facility] Comment on above: Performed By: #### Jacqueline ARAUJO CMP, 1987-09 #### [facility] ([id number]) [address] [address] [place] [address] ALP [Catalytic activity/Vol] 52 U/L Normal 39-130 [facility] Comment on above: Performed By: #### Jacqueline ARAUJO CMP, 1987-09 #### [facility] ([id number]) [address], [address] [place] [address] ALT [Catalytic activity/Vol] 12 U/L Normal 0-31 [facility] Comment on above: Performed By: #### Jacqueline ARAUJO CMP, 1987-09 #### [facility] ([id number]) [address], [address] [place] [address] Anion gap [Moles/Vol] 11 mmol/L Normal 5-15 [facility] Comment on above: Performed By: #### Jacqueline ARAUJO CMP, 1987-09 #### [facility] ([id number]) [address], [address] [place] [address] AST [Catalytic activity/Vol] 17 U/L Normal 0-41 [facility] Comment on above: Performed By: #### Jacqueline ARAUJO CMP, 1987-09 #### [facility] ([id number]) [address], [address] [place] [address] Bilirubin [Mass/Vol] 0.4 mg/dL Normal 0.3-1.2 [facility] Comment on above: Performed By: #### Jacqueline ARAUJO CMP, 1987-09 #### [facility] ([id number]) [address], [address] [place] [address] Calcium [Mass/Vol] 9.7 mg/dL Normal 8.5-10.5 [facility] Comment on above: Performed By: #### Jacqueline ARAUJO CMP, 1987-09 #### [facility] ([id number]) [address], [address] [place] [address] Chloride [Moles/Vol] 109 mmol/L Normal 98-109 [facility] Comment on above: Performed By: #### Jacqueline ARAUJO CMP, 1987-09 #### [facility] ([id number]) [address], [address] [place] [address] CO2 [Moles/Vol] 20 mmol/L Low 22-32 [facility] Comment on above: Performed By: #### C VAN [facility], 1987-09 #### [facility] ([id number]) [address] [address] [place] [address] Creatinine [Mass/Vol] 0.75 mg/dL Normal 0.40-1.00 [facility] Comment on above: Result Comment: METH OD TRACEABLE TO IDMS STANDARD Performed By: #### C ARANZA ARAUJO, 1988-09 #### [facility] ([id number]) [address], [address] [place] [address] eGFR (CKD-EPI) NON-RACE DEPENDENT >90 Normal >59 [facility] Comment on above: Result Comment: Reported eGFR is based on the CKD-EPI 2020 equation that does not use a race coefficient. Performed By: #### C ARANZA ARAUJO, 1987-09 #### [facility] ([id number]) [address], [facility] [address] [place] [address] Glucose [Mass/Vol] 88 mg/dL Normal 65-99 [facility] Comment on above: Performed By: #### Jacqueline ARAUJO [facility], 1987-09 #### [facility] ([id number]) [address] [address] [place] [address] Potassium [Moles/Vol] 3.9 mmol/L Normal 3.5-5.0 [facility] Comment on above: Performed By: #### C ARANZA ARAUJO, 1987-09 #### [facility] ([id number]) [address] [address] [place] [address] Protein [Mass/Vol] 6.4 g/dL Normal 6.0-8.0 [facility] Comment on above: Performed By: #### C VAN [facility], 1987-09 #### [facility] ([id number]) [address] [address] [place] [address] Sodium [Moles/Vol] 140 mmol/L Normal 134-146 [facility] Comment on above: Performed By: #### C VAN, CMP, 1987-09 #### [facility] ([id number]) [address], [address] [place] [address] Urea nitrogen [Mass/Vol] 9 mg/dL Normal 5-23 [facility] Comment on above: Performed By: #### Jacqueline ARAUJO CMP, 1987-09 #### [facility] ([id number]) [address], [address] [place] [address] CRP [Mass/Vol]on 03-16-2024 C REACTIVE PROTEIN 0.6 mg/dL Normal 0.000-0.744 [facility] Comment on above: Performed By: #### Jacqueline ARAUJO CMP, 1987-09 #### [facility] ([id number]) [address], [address] [place] [address] BLOOD CULTUREon 03-13-2024 Bacteria identified Aer cx Nom (Bld) CULTURE RESULTS NO GROWTH 5 DAYS Normal [facility] Bacteria identified Aer cx Nom (Bld) CULTURE RESULTS NO GROWTH 5 DAYS Normal [facility] CBC AND AUTO DIFFon 03-13-20 ABSOLUTE BASOPHIL 0.0 X10E9/L Normal 0.0-0.2 [facility] Comment on above: Performed By: #### Jacqueline ARAUJO CMP, 1987-09, 04418-2 #### [facility] ([id number]) [address], [address] [place] [address] ABSOLUTE NEUTROPHIL 5.4 X10E9/L Normal 1.5-6.6 [facility] Comment on above: Performed By: #### Jacqueline ARAUJO CMP, 1987-09, 23240-1 #### [facility] ([id number]) [address], [address] [place] [address] Basophils/100 WBC (Bld) 0.4 % Normal [facility] Comment on above: Performed By: #### Jacqueline ARAUJO CMP, 1987-09, 76215-0 #### [facility] ([id number]) [address], [address] [place] [address] Eosinophils (Bld) [#/Vol] 0.1 10*3/uL Normal 0.0-0.4 [facility] Comment on above: Performed By: #### Jacqueline ARAUJO CMP, 1987-09, 22295-6 #### [facility] ([id number]) [address], [address] [place] [address] Eosinophils/100 WBC (Bld) 1.6 % Normal [facility] Comment on above: Performed By: #### Jacqueline ARAUJO [facility], 1987-09, 58867-0 #### [facility] ([id number]) [address], [facility] [address] [place] [address] Erythrocyte distribution width (RBC) [Ratio] 18.4 % High 11.5-15.0 [facility] Comment on above: Performed By: #### Jacqueline ARAUJO [facility], 1987-09, 26902-3 #### [facility] ([id number]) [address], [address] [place] [address] Hematocrit (Bld) [Volume fraction] 39.0 % Normal 35-47 [facility] Comment on above: Performed By: #### Jacqueline ARAUJO [facility], 1987-09, 03406-7 #### [facility] ([id number]) [address], [address] [place] [address] Hemoglobin (Bld) [Mass/Vol] 13.7 g/dL Normal 11.7-15.5 [facility] Comment on above: Performed By: #### Jacqueline ARAUJO [facility], 1987-09, 48201-7 #### [facility] ([id number]) [address], [address] [place] [address] Lymphocytes (Bld) [#/Vol] 1.9 10*3/uL Normal 1.0-3.5 [facility] Comment on above: Performed By: #### C ARANZA ARAUJO, 1987-09, 57751-5 #### [facility] ([id number]) [address], [address] [place] [address] Lymphocytes/100 WBC (Bld) 24.0 % Normal [facility] Comment on above: Performed By: #### C VAN [facility], 1987-09, 83987-3 #### [facility] ([id number]) [address], [address] [place] [address] MCH (RBC) [Entitic mass] 32.5 pg Normal 27-34 [facility] Comment on above: Performed By: #### C ARANZA ARAUJO, 1987-09, 40481-3 #### [facility] ([id number]) [address], [address] [place] [address] MCHC (RBC) [Mass/Vol] 35.0 g/dL Normal 32-36 [facility] Comment on above: Performed By: #### C VAN [facility], 1987-09, 31000-1 #### [facility] ([id number]) [address], [address] [place] [address] MCV (RBC) [Entitic vol] 93 fL Normal 80-100 [facility] Comment on above: Performed By: #### C ARANZA ARAUJO, 1987-09, 36652-4 #### [facility] ([id number]) [address], [address] [place] [address] Monocytes (Bld) [#/Vol] 0.4 10*3/uL Normal 0-0.9 [facility] Comment on above: Performed By: #### C VAN CMP, 1987-09, 54402-5 #### [facility] ([id number]) [address], [address] [place] [address] Monocytes/100 WBC (Bld) 4.7 % Normal [facility] Comment on above: Performed By: #### C VAN CMP, 1987-09, 98940-1 #### [facility] ([id number]) [address], [facility] [address] [place] [address] Neutrophils/100 WBC (Bld) 69.3 % Normal [facility] Comment on above: Performed By: #### Jacqueline ARAUJO [facility], 1987-09, 41985-7 #### [facility] ([id number]) [address], [facility] [address] [place] [address] Platelet mean volume (Bld) [Entitic vol] 7.9 fL Normal 7-12 [facility] Comment on above: Performed By: #### Jacqueline ARAUJO [facility], 1987-09, 52986-4 #### [facility] ([id number]) [address], [facility] [address] [place] [address] Platelets (Bld) [#/Vol] 376 10*3/uL Normal 150-450 [facility] Comment on above: Performed By: #### Jacqueline ARAUJO [facility], 1987-09, 81962-3 #### [facility] ([id number]) [address] [address] [place] [address] RBC COUNT 4.20 X10E12/L Normal 3.80-5.20 [facility] Comment on above: Performed By: #### Jacqueline ARAUJO [facility], 1987-09, 14768-2 #### [facility] ([id number]) [address] [address] [place] [address] WBC (Bld) [#/Vol] 7.8 10*3/uL Normal 4.0-11.0 [facility] Comment on above: Performed By: #### Jacqueline ARAUJO [facility], 1987-09, 16463-0 #### [facility] ([id number]) [address], [address] [place] [address] COMPREHENSIVE METABOLIC PANE Alexandru 03-13-2024 Albumin [Mass/Vol] 3.4 g/dL Normal 3.2-5.3 [facility] Comment on above: Performed By: #### C VAN CMP, 1987-09, 97316-9 #### [facility] ([id number]) [address], [address] [place] [address] ALP [Catalytic activity/Vol] 57 U/L Normal 39-130 [facility] Comment on above: Performed By: #### C VAN CMP, 1987-09, 23569-0 #### [facility] ([id number]) [address], [address] [place] [address] ALT [Catalytic activity/Vol] 14 U/L Normal 0-31 [facility] Comment on above: Performed By: #### C VAN, CMP, 1987-09, 81300-6 #### [facility] ([id number]) [address], [address] [place] [address] Anion gap [Moles/Vol] 8 mmol/L Normal 5-15 [facility] Comment on above: Performed By: #### C VAN CMP, 1987-09, 55136-0 #### [facility] ([id number]) [address], [address] [place] [address] AST [Catalytic activity/Vol] 19 U/L Normal 0-41 [facility] Comment on above: Performed By: #### C BCA, CMP, 1987-09, 50213-4 #### [facility] ([id number]) [address], [address] [place] [address] Bilirubin [Mass/Vol] 0.4 mg/dL Normal 0.3-1.2 [facility] Comment on above: Performed By: #### C BCA, CMP, 1987-09, 97908-1 #### [facility] ([id number]) [address], [address] [place] [address] Calcium [Mass/Vol] 9.3 mg/dL Normal 8.5-10.5 [facility] Comment on above: Performed By: #### C ARANZA ARAUJO, 1987-09, 86187-9 #### [facility] ([id number]) [address], [address] [place] [address] Chloride [Moles/Vol] 105 mmol/L Normal 98-109 [facility] Comment on above: Performed By: #### C ARANZA ARAUJO, 1987-09, 69025-4 #### [facility] ([id number]) [address], [address] [place] [address] CO2 [Moles/Vol] 28 mmol/L Normal 22-32 [facility] Comment on above: Performed By: #### C ARANZA ARAUJO, 1987-09, 40665-6 #### [facility] ([id number]) [address], [address] [place] [address] Creatinine [Mass/Vol] 0.82 mg/dL Normal 0.40-1.00 [facility] Comment on above: Result Comment: METH OD TRACEABLE TO IDMS STANDARD Performed By: #### C ARANZA ARAUJO, 1987-09, 48402-4 #### [facility] ([id number]) [address], [address] [place] [address] GFR/1.73 sq M.predicted among non-blacks MDRD (S/P/Bld) [Vol rate/Area] 84 mL/min/{1.73_m2} Normal >59 [facility] Comment on above: Result Comment: Reported eGFR is based on the CKD-EPI 2020 equation that does not use a race coefficient. Performed By: #### C ARANZA ARAUJO, 1987-09, 14769-6 #### [facility] ([id number]) [address], [address] [place] [address] Glucose [Mass/Vol] 97 mg/dL Normal 65-99 [facility] Comment on above: Performed By: #### C ARANZA ARAUJO, 98649-6 #### [facility] ([id number]) [address], [address] [place] [address] Potassium [Moles/Vol] 3.1 mmol/L Low 3.5-5.0 [facility] Comment on above: Performed By: #### C VAN, [facility], 39015-5 #### [facility] ([id number]) [address], [address] [place] [address] Protein [Mass/Vol] 6.3 g/dL Normal 6.0-8.0 [facility] Comment on above: Performed By: #### C VAN [facility], 20870-7 #### [facility] ([id number]) [address] [place] [address] Sodium [Moles/Vol] 141 mmol/L Normal 134-146 [facility] Comment on above: Performed By: #### C VAN, [facility], 39500-3 #### [facility] ([id number]) [address] [place] [address] Urea nitrogen [Mass/Vol] 8 mg/dL Normal 5-23 [facility] Comment on above: Performed By: #### C VAN [facility], 91090-1 #### [facility] ([id number]) [address] [place] [address] CRP [Mass/Vol]on 03-13-2024 C REACTIVE PROTEIN 0.7 mg/dL Normal 0.000-0.744 [facility] Comment on above: Performed By: #### C VAN, [facility], 33941-9 #### [facility] ([id number]) [address] [place] [address] ESR Photometric method (Bld) [Velocity]on 03-13-2024 ESR, ERYTHROCYTE SEDIMENTATION RATE 39 mm/h High 0-30 [facility] Comment on above: Performed By: #### C BCA, [facility], 1988-5, 37628-1 #### [facility] ([id number]) [address] [place] [address] ASPIRATE CULTUREon Bacteria identified Aer cx Nom [...] <=1 F PIPERACIL/TAZOBACTAM S <=4 F Susceptible [facility] Comment on above: Performed By: #### 5 97-5 #### [facility] ([id number]) [address] [place] [address] AND DIFFon 2023 BODY FLUID COMMENT Interpreta tion--- ----- Normal [facility] Comment on above: Result Comment: Refe rence values for this fluid type are undefined, as fluid accumulation is considered abnormal. Performed By: #### B FCT #### [facility] ([id number]) [address] [place] [address] FLUID CLARITY CLOUDY Normal [facility] Comment on above: Performed By: #### B FCT #### [facility] ([id number]) [address], [address] [place] [address] FLUID COLOR HONG Normal [facility] Comment on above: Performed By: #### B FCT #### [facility] ([id number]) [address], [address] [place] [address] FLUID LYMPHOCYTE 5 % Normal [facility] Comment on above: Performed By: #### B FCT #### [facility] ([id number]) [address], [address] [place] [address] FLUID NEUTROPHILS 75 % Normal [facility] Comment on above: Performed By: #### B FCT #### [facility] ([id number]) [address], [address] [place] [address] [place] [address] /uL Normal [facility] Comment on above: Performed By: #### B FCT #### [facility] ([id number]) [address], [address] [place] [address] FLUID SPECIMEN TYPE ASPIRATE Normal [facility] Comment on above: Result Comment: ABDO MISAEL PUMP POCKET Performed By: #### B FCT #### [facility] ([id number]) [address], [address] [place] [address] MACROPHAGES 20 % Normal [facility] Comment on above: Performed By: #### B FCT #### [facility] ([id number]) [address] [place] [address] 4888 /uL Normal [facility] Comment on above: Performed By: #### B FCT #### [facility] ([id number]) [address], [address] [place] [address] Infectious Disease Office/ inic Noteon 11-10-2023 Infectious Disease Office/Clinic Note Assessment/Plan 1. Postoperative wound infection Plan: Unfortunately there is no other good oral options for coverage of Pseudomonas. She is advised to stop taking doxycycline as this will help her symptoms. I did call Dr. Montes his PA Hammad called back. She advised me to send patient back to [place]. This is where she had her surgery done. She may need to MRI possible washout. This scientific technical writer did call [place] talk to charge nurse Dagmar gave her [...] and fusion by Dr. Saint Gregory at [facility]. She was discharged home on the . She was discharged on cephalexin for 10 days. She was taken back to surgery on October 11 due to persistent drainage and wound dehiscence. She had a fluid collection which was most consistent with seroma/infection . The surgery [place]. Cultures grew Pseudomonas and she was discharged [...] data Procedure/Surgical History Neck Surgery Stomach Pain [place] [facility] (09/02/2023) incision & drainage (10/12/2023) Medications cyclobenzaprine 10 mg oral tablet, 45 EA, 0 Refill(s), TAKE 1 TABLET BY MOUTH THREE TIMES DAILY NEEDED FOR MUSCLE SPASMS DULoxetine 60 mg oral delayed release capsule, 90 EA, 0 Refill(s), TAKE 1 CAPSULE BY MOUTH EVERY DAY ibuprofen 800 mg oral tablet, 270 EA, 0 Refill(s) Potassium Chloride ( (more content not included)... Normal [facility] .eGFRon 10-26-2023 GFR/1.73 sq M.predicted MDRD (S/P/Bld) [Vol rate/Area] mL/min/{1.73_m2} Normal >=60 [facility] Comment on above: Order Comment: Order added by Discern rule Result Comment: [facility] have implemented the eGFR [...] Performed By: #### E GFR #### [address] [address] Basic Metabolic Profileon Anion gap [Moles/Vol] 10 mmol/L Normal -12 [facility] Comment on above: Performed By: #### C [id number] #### [address] [address] Calcium [Mass/Vol] 9.4 mg/dL Normal 8.5-10.3 [facility] Comment on above: Performed By: #### C [id number] #### [address] [address] Chloride [Moles/Vol] 101 mmol/L Normal 98-110 [facility] Comment on above: Performed By: #### C [id number] #### [address] [address] CO2 [Moles/Vol] 26 mmol/L Normal 22-32 [facility] Comment on above: Performed By: #### C [id number] #### [address] [address] Creatinine [Mass/Vol] 0.81 mg/dL Normal 0.44-1.03 [facility] Comment on above: Performed By: #### C [id number] #### [address] [address] Glucose [Mass/Vol] 82 mg/dL Normal 70-99 [facility] Comment on above: Performed By: #### C [id number] #### [address] [address] Potassium [Moles/Vol] 2.7 mmol/L Low 3.4-4.8 [facility] Comment on above: Performed By: #### C D:[id number] #### [address] [address] Sodium [Moles/Vol] 137 mmol/L Normal 133-142 [facility] Comment on above: Performed By: #### C D:[id number] #### [address] [address] Urea nitrogen [Mass/Vol] 15 mg/dL Normal 8-26 [facility] Comment on above: Performed By: #### C [id number] #### [address] [address] Urea nitrogen/Creatinin e [Mass ratio] 18.5 mg/mg Normal 10.0-20.0 [facility] Comment on above: Performed By: #### C [id number] #### [address] [address] CBC w/ Diffon 10-26-2023 Erythrocyte distribution width (RBC) [Ratio] 15.2 % High 11.6-14.8 [facility] Comment on above: Performed By: #### C BC #### [address] [address] Hematocrit (Bld) [Volume fraction] 38.9 % Normal 36.0-46.0 [facility] Comment on above: Performed By: #### C BC #### [address] [address] Hemoglobin (Bld) [Mass/Vol] 12.9 g/dL Normal 12.0-16.0 [facility] Comment on above: Performed By: #### C BC #### [address] [address] MCH (RBC) [Entitic mass] 31.5 pg Normal 27.0-35.0 [facility] Comment on above: Performed By: #### C BC #### [address] [address] MCHC 33.1 % Normal 31.0-37.0 [facility] Comment on above: Performed By: #### C BC #### [address] [address] MCV (RBC) [Entitic vol] 95.0 fL Normal 80.0-100.0 [facility] Comment on above: Performed By: #### C BC #### [address] [address] Platelet 367 x10*3/mcL Normal 150-450 [facility] Comment on above: Performed By: #### C BC #### [address] [address] Platelet mean volume (Bld) [Entitic vol] 7.7 fL Normal 6.7-10.6 [facility] Comment on above: Performed By: #### C BC #### [address] [address] RBC 4.10 x10*6/mcL Normal 3.80-5.20 [facility] Comment on above: Performed By: #### C BC #### [address] [address] WBC 12.3 x10*3/mcL High 4.5-11.0 [facility] Comment on above: Performed By: #### C BC #### [address] [address] CRPon 10-26-2023 CRP 2.71 mg/dL High 0.00-0.75 [facility] Comment on above: Result Comment: CRP measurement is useful for assessment of non-specific INFLAMMATORY RESPONSE to infection or injury AND is a sensitive MARKER of ACUTE INFLAMMATION including CARDIAC RISK ASSESSMENT. CARDIAC patients with elevated CRP are POTENTIALLY at a HIGHER RISK OF FUTURE CARDIAC EVENTS. Performed By: #### C RP #### [address] [address] Diff Autoon 10-26-2023 Baso Absolute 0.1 x10*3/mcL Normal 0.0-0.2 [facility] Comment on above: Performed By: #### . Automated Diff #### [address] [address] Basophils/100 WBC (Bld) 0.5 % Normal 0.0-1.5 [facility] Comment on above: Performed By: #### . Automated Diff #### [address] [address] Eos Absolute 0.3 x10*3/mcL Normal 0.0-0.4 [facility] Comment on above: Performed By: #### . Automated Diff #### [address] [address] Eosinophils/100 WBC (Bld) 2.1 % Normal 0.0-5.4 [facility] Comment on above: Performed By: #### . Automated Diff #### [address] [address] Lymph Absolute 2.2 x10*3/mcL Normal 1.0-4.8 [facility] Comment on above: Performed By: #### . Automated Diff #### [address] [address] Lymphocytes/100 WBC (Bld) 18.0 % Low 27.2-40.8 [facility] Comment on above: Performed By: #### . Automated Diff #### [address] [place] [address] [place] Absolute 0.6 x10*3/mcL Normal 0.1-1.1 [facility] Comment on above: Performed By: #### . Automated Diff #### [place] [id number] Monocytes/100 WBC (Bld) 4.9 % Normal 3.7-11.9 [facility] Comment on above: Performed By: #### . Automated Diff #### [place] [id number] Neutro Absolute 9.2 x10*3/mcL High 1.8-7.7 [facility] Comment on above: Performed By: #### . Automated Diff #### [place] [address] Neutro Auto 74.5 % High 47.2-70.8 [facility] Comment on above: Performed By: #### . Automated Diff #### [place] [id number] ESRon 10-26-2023 Sed Rate 67 mm/hr High 0-30 [facility] Comment on above: Performed By: #### E SR #### [place] [id number] Infectious Disease Office/Cl inic Noteon 10-26-2023 Infectious [...] tabs, 0 Refill(s), 11/09/23 10:12:00 EDT, Pharmacy: [facility] #[id number] Basic Metabolic Profile C-Reactive Protein Complete Blood Count w/ Differential Erythrocyte Sedimentation Rate 2. Pseudomonas infection As above Ordered: levoFLOXacin, 1 tabs, Oral, q24hr, X 14 days, # 14 tabs, 0 Refill(s), 11/09/23 10:12:00 EDT, [id number] Basic Metabolic Profile C-Reactive Protein Complete Blood Count w/ Differential Erythrocyte Sedimentation Rate Chief Complaint New pt I&D done at [facility], possible infection of back. History of Present Illness Seen today for persistent drainage after back surgery on September 01. She had L3-L4 decompression and fusion by Dr. Saint Gregory at [facility]. She was discharged home on the . She was discharged on cephalexin for 10 days. She was taken back to surgery on October 11 due to persistent drainage and wound dehiscence. She had a fluid collection which was most consistent with seroma/infection . The surgery [place] done [place]. Cultures grew Pseudomonas and she was discharged [...] data Procedure/Surgical History Neck Surgery Stomach Pain [place] [facility] (09/02/2023) incision & drainage (10/12/2023) Medications [...] SARS-CoV-2 (COVID-19 (more content not included)... Normal [facility] Provider Letteron 10-26-2023 Provider Letter (Inserted Image. Shelly ble to display) Tejas Richardson DO [address] [place] [address] Re: Radha Duncan Date of Visit: 10/26/[address] Richardson, Thank you for your referral to my office. Attached you will find the most recent office visit note. Please call if you have any questions or concerns. Sincerely, Pavel Rodriges MD [address] [facility], [address] [place] [address] The following document(s) were included in the letter: October 26, 2023 10:13:55 EDT - (10/26/2023) Infectious Disease Office Visit Note Normal [facility] ELECTROLYTESon 08-22-2023 Anion gap [Moles/Vol] 8 mmol/L Normal 5-15 [facility] Comment on above: Performed By: #### E LEC #### [facility] ([id number]) [address], [address] [place] [address] Chloride [Moles/Vol] 110 mmol/L High 98-109 [facility] Comment on above: Performed By: #### E LEC #### [facility] ([id number]) [address], [address] [place] [address] CO2 [Moles/Vol] 23 mmol/L Normal 22-32 [facility] Comment on above: Performed By: #### E LEC #### [facility] ([id number]) [address], [address] [place] [address] Potassium [Moles/Vol] 4.4 mmol/L Normal 3.5-5.0 [facility] Comment on above: Performed By: #### E LEC #### [facility] ([id number]) [address], [address] [place] [address] Sodium [Moles/Vol] 141 mmol/L Normal 134-146 [facility] Comment on above: Performed By: #### E LEC #### [facility] ([id number]) [address] [place] [address], [address] [place] [address] CARDIAC AZAR ADMITon 020 CK [Catalytic activity/Vol] 915 U/L Critically high 30-135 [facility] Comment on above: Result Comment: Test repeated. Critical value verified. Performed By: #### D JUNED #### [facility] [address] [place], [place] [phone] Christian Mikayla CK.MB [Mass/Vol] 12.82 ng/mL Critically high <=2.37 [facility] Comment on above: Result Comment: Test repeated. Critical value verified. Performed By: #### D JUNED #### [facility] [address] [place], [place] [phone] Christian Mikayla INR Coag (Bld) [Relative time] SEE BELOW Normal [facility] Comment on above: Result Comment: <0.0 34 ng/ml NEGATIVE 0.034-0.119 INDETERMINATE 0.120 AMI CUT OFF Performed By: #### D COLT #### [facility] [address] [place], [place] [id number] Christian Mikayla ÁNGEL 96.0 ng/mL Critically high <=61.5 [facility] Comment on above: Performed By: #### D COLT #### [facility] [address] [place], [place] [phone] Christian Mikayla TROP 0.028 ng/mL Normal <=0.034 [facility] Comment on above: Performed By: #### D JUNED #### [facility] [address] [place], [place] [id number] Christian Mikayla CK [Catalytic activity/Vol] 1282 U/L Critically high 30-135 [facility] Comment on above: Result Comment: Test repeated. Critical value verified. Performed By: #### Bill CISNEROS CMP #### [facility] [address] [place], [place] [id number] Christian Mikayla CK.MB [Mass/Vol] 24.63 ng/mL Critically high <=2.37 [facility] Comment on above: Result Comment: Test repeated. Critical value verified. Performed By: #### T ROP, CMP #### [facility] [address] [place], [place] [phone] Christian Mikayla INR Coag (Bld) [Relative time] SEE BELOW Normal [facility] Comment on above: Result Comment: <0.0 34 ng/ml NEGATIVE 0.034-0.119 INDETERMINATE 0.120 AMI CUT OFF Performed By: #### T ROP, CMP #### [facility] [address] [place], [place] [id number] Christian Mikayla ÁNGEL 235.0 ng/mL Critically high <=61.5 [facility] Comment on above: Performed By: #### T ROP, CMP #### [facility] [address] [place], [place] [phone] Christian Mikayla TROP 0.033 ng/mL Normal <=0.034 [facility] Comment on above: Performed By: #### T ROP, CMP #### [facility] [address] [place], [place] [phone] Christian Mikayla CBC AUTO DIFFon 03-07-2020 Basophils (Bld) [#/Vol] 0.0 103/ul Normal 0.0-0.1 [facility] Comment on above: Performed By: #### C BC #### [facility] [address] [place], [place] [phone] Christian Mikayla Basophils/100 WBC (Bld) 0.1 % Critically low 0.2-2.0 [facility] Comment on above: Performed By: #### C BC #### [facility] [address] [place], [place] [phone] Christian Mikayla Eosinophils (Bld) [#/Vol] 0.0 103/ul Normal 0.0-0.7 [facility] Comment on above: Performed By: #### C BC #### [facility] [address] [place], [place] [phone] Christian Mikayla Eosinophils/100 WBC (Bld) 0.0 % Critically low 0.9-7.0 [facility] Comment on above: Performed By: #### C BC #### [facility] [address] [place], [place] [phone] Christian Mikayla Erythrocyte distribution width (RBC) [Ratio] 13.4 % Normal 11.0-15.0 [facility] Comment on above: Performed By: #### C BC #### [facility] [address] [place], [place] [phone] Christian Mikayla Hematocrit (Bld) [Volume fraction] 35.4 % Critically low 36.0-48.0 [facility] Comment on above: Performed By: #### C BC #### [facility] [address] [place], [place] [phone] Christian Mikayla Hemoglobin (Bld) [Mass/Vol] 11.4 g/dL Critically low 12.0-16.0 [facility] Comment on above: Performed By: #### C BC #### [facility] [address] [place] [address] Christian Mikayla IG # 0.07 10e3/ul Critically high 0.00-0.03 [facility] Comment on above: Performed By: #### C BC #### [facility] [address] [place] [address] Christian Mikayla IG % 0.4 % Normal 0.0-0.5 [facility] Comment on above: Performed By: #### C BC #### [facility] [address] [place], [place] [phone] Christian Mikayla Lymphocytes (Bld) [#/Vol] 1.1 103/ul Critically low 1.2-3.8 [facility] Comment on above: Performed By: #### C BC #### [facility] [address] [place] [address] Christian Mikayla Lymphocytes/100 WBC (Bld) 6.9 % Critically low 20.5-60.0 [facility] Comment on above: Performed By: #### C BC #### [facility] [address] [place], [place] [phone] Christian Degroot MANUAL DIFF REQ NO Normal [facility] Comment on above: Performed By: #### C BC #### [facility] [address] [place], [place] [phone] Christian Mikayla MCH (RBC) [Entitic mass] 32.7 pg Normal 26.7-34.0 [facility] Comment on above: Performed By: #### C BC #### [facility] [address] [place], [place] [phone] Christianvíctor Degroot MCHC (RBC) [Mass/Vol] 32.2 g/dL Normal 29.9-35.2 [facility] Comment on above: Performed By: #### C BC #### [facility] [address] [place], [place] [phone] Christian Mikayla MCV (RBC) [Entitic vol] 101.4 fL Critically high 81.0-99.0 [facility] Comment on above: Performed By: #### C BC #### [facility] [address] [place], [place] [phone] Christian Mikayla Monocytes (Bld) [#/Vol] 1.4 103/ul Critically high 0.3-0.8 [facility] Comment on above: Performed By: #### C BC #### [facility] [address] [place], [place] [phone] Christian Mikayla Monocytes/100 WBC (Bld) 8.6 % Normal 1.7-12.0 [facility] Comment on above: Performed By: #### C BC #### [facility] [address] [place], [place] [phone] Christian Mikayla Neutrophils (Bld) [#/Vol] 13.4 103/ul Critically high 1.4-6.5 [facility] Comment on above: Performed By: #### C BC #### [facility] [address] [place], [place] [phone] Christian Mikayla Neutrophils/100 WBC (Bld) 84.0 % Critically high 43.0-75.0 [facility] Comment on above: Performed By: #### C BC #### [facility] [address] [place], [place] [phone] Christian Mikayla Platelet mean volume (Bld) [Entitic vol] 9.5 fL Normal 9.5-13.5 [facility] Comment on above: Performed By: #### C BC #### [facility] [address] [place], [place] [phone] Christian Mikayla Platelets (Bld) [#/Vol] 207 103/ul Normal 150-450 [facility] Comment on above: Performed By: #### C BC #### [facility] [address] [place], [place] [address] Christianvíctor Santanaen RBC (Bld) [#/Vol] 3.49 106/ul Critically low 4.20-5.40 [facility] Comment on above: Performed By: #### C BC #### [facility] [address] [place], [place] [phone] Christian Mikayla WBC (Bld) [#/Vol] 16.0 103/ul Critically high 4.0-11.0 [facility] Comment on above: Performed By: #### C BC #### [facility] [address] [place], [place] [phone] Christian Santanaen PROF CHEM 8 (BAS METB)on Anion gap [Moles/Vol] 11.2 mmol/L Normal [facility] Comment on above: Performed By: #### D RUGRPD #### [facility] [address] [place], [place] [address] Christian Mikayla Calcium [Mass/Vol] 8.3 mg/dL Critically low 8.4-10.2 [facility] Comment on above: Performed By: #### D RUGRPD #### [facility] [address] [place], [place] [phone] Christian Mikayla Chloride [Moles/Vol] 106 mmol/L Normal 98-107 [facility] Comment on above: Performed By: #### D RUGRPD #### [facility] [address] [place], [place] [address] Christian Mikayla CO2 [Moles/Vol] 24.5 mmol/L Normal 22.0-30.[address] [facility] Comment on above: Performed By: #### D RUGRPD #### [facility] [address] [place], [place] [address] Christian Mikayla Creatinine [Mass/Vol] 0.53 mg/dL Normal 0.52-1.04 [facility] Comment on above: Performed By: #### D RUGRPD #### [facility] [address] [place], [place] [address] Christian Mikayla EGFR-AF [facility] >60 Normal >=60 [facility] Comment on above: Performed By: #### D RUGRPD #### [facility] [address] [place] [phone] Christian Mikayla EGFR-NON AF [facility] >60 Normal >=60 [facility] Comment on above: Performed By: #### D RUGRPD #### [facility] [address] [place] [phone] Christian Mikayla Glucose [Mass/Vol] 113 mg/dL Critically high 74-106 [facility] Comment on above: Performed By: #### D RUGJONAS #### [facility] [address] [place], [place] [phone] Christian Mikayla Potassium [Moles/Vol] 3.7 mmol/L Normal 3.4-5.0 [facility] Comment on above: Performed By: #### D RUGJONAS #### [facility] [address] [place] [address] Christian Mikayla Sodium [Moles/Vol] 138 mmol/L Normal 137-145 [facility] Comment on above: Performed By: #### D COLT #### [facility] [address] [place], [place] [phone] Christian Mikayla Urea nitrogen [Mass/Vol] 12.0 mg/dL Normal 7.0-17.0 [facility] Comment on above: Performed By: #### D RUGJONAS #### [facility] [address] [place] [phone] Christian Mikayla Urea nitrogen/Creatinin e [Mass ratio] 22.6 mg/mg Normal [facility] Comment on above: Performed By: #### D COLT #### [facility] [address] [place], [place] [phone] Christian Mikayla CBC W MANUAL DIFFon 03-06-20 20 ATYPICAL LYMPH # Normal [facility] Comment on above: Performed By: #### D COLT #### [facility] [address] [place], [place] [phone] Christian Mikayla ATYPICAL LYMPH % Normal [facility] Comment on above: Performed By: #### D RUGRPD #### [facility] [address] [place], [place] [phone] Christian Mikayla BAND # Normal 0.0-0.3 [facility] Comment on above: Performed By: #### D RUGRPD #### [facility] [address] [place] [address] Christian Mikayla BAND % Normal 0-5 [facility] Comment on above: Performed By: #### D RUGRPD #### [facility] [address] [place] [address] Christian Mikayla BASOM # 0.00 103/ul Normal 0.00-0.10 [facility] Comment on above: Performed By: #### D RUGRPD #### [facility] [address] [place] [address] Christian Mikayla BASOM % 0.0 % Critically low 0.2-2.0 [facility] Comment on above: Performed By: #### D RUGRPD #### [facility] [address] [place] [address] Christian Mikayla BLAST # Normal [facility] Comment on above: Performed By: #### D RUGRPD #### [facility] [address] [place] [address] Christian Mikayla BLAST % Normal [facility] Comment on above: Performed By: #### D RUGRPD #### [facility] [address] [place] [address] Christian Mikayla CORRECTED WBC Normal 4.0-11.0 [facility] Comment on above: Performed By: #### D RUGRPD #### [facility] [address] [place], [place] [phone] Christian Mikayla Eosinophils (Bld) [#/Vol] 0.00 103/ul Normal 0.00-0.70 [facility] Comment on above: Performed By: #### D RUGRPD #### [facility] [address] [place], [place] [phone] Christian Mikayla Eosinophils/100 WBC (Bld) 0.0 % Critically low 0.9-7.0 [facility] Comment on above: Performed By: #### D RUGRPD #### [facility] [address] [place] [address] Christian Mikayla Erythrocyte distribution width (RBC) [Ratio] 13.2 % Normal 11.0-15.0 [facility] Comment on above: Performed By: #### D RUGRPD #### [facility] [address] [place] [address] Christian Mikayla Hematocrit (Bld) [Volume fraction] 44.1 % Normal 36.0-48.0 [facility] Comment on above: Performed By: #### D RUGLANDYD #### [facility] [address] [place] [address] Christian Mikayla Hemoglobin (Bld) [Mass/Vol] 13.9 g/dl Normal 12.0-16.0 [facility] Comment on above: Performed By: #### D RUGRPD #### [facility] [address] [place] [address] Christian Mikayla LYMPHM # 0.26 103/ul Critically low 1.20-3.80 [facility] Comment on above: Performed By: #### D RUGRPD #### [facility] [address] [place] [address] Christian Mikayla LYMPHM% 1.0 % Critically low 20.5-60.0 [facility] Comment on above: Performed By: #### D RUGRPD #### [facility] [address] [place] [address] Christian Santanaen MCH (RBC) [Entitic mass] 32.6 pg Normal 26.7-34.0 [facility] Comment on above: Performed By: #### D RUGRPD #### [facility] [address] [place], [place] [id number] Christianvíctor Degroot MCHC (RBC) [Mass/Vol] 31.5 g/dl Normal 29.9-35.2 [facility] Comment on above: Performed By: #### D RUGRPD #### [facility] [address] [place] [address] Christian Degroot MCV (RBC) [Entitic vol] 103.3 fL Critically high 81.0-99.0 [facility] Comment on above: Performed By: #### D RUGRPD #### [facility] [address] [place] [address] Christian Mikayla METAMYELOCYTE # Normal [facility] Comment on above: Performed By: #### D RUGRPD #### [facility] [address] [place] [address] Christian Mikayla METAMYELOCYTE % Normal [facility] Comment on above: Performed By: #### D RUGRPD #### [facility] [address] [place] [address] Christianvíctor Degroot MONOM# 1.32 103/ul Critically high 0.30-0.[address] [facility] Comment on above: Performed By: #### D RUGRPD #### [facility] [address] [place] [address] Christian Mikayla MONOM% 5.0 % Normal 1.7-12.0 [facility] Comment on above: Performed By: #### D RUGRPD #### [facility] [address] [place] [address] Christianvíctor Degroot MYELOCYTE # Normal [facility] Comment on above: Performed By: #### D RUGRPD #### [facility] [address] [place] [address] Christian Mikayla MYELOCYTE % Normal [facility] Comment on above: Performed By: #### D RUGRPD #### [facility] [address] [place] [address] Christian Mikayla NRBC Normal [facility] Comment on above: Performed By: #### D RUGRPD #### [facility] [address] [place], [place] [phone] Christianvíctor Degroot Platelet mean volume (Bld) [Entitic vol] 9.6 fL Normal 9.5-13.5 [facility] Comment on above: Performed By: #### D RUGRPD #### [facility] [address] [place] [address] Christian Degroot Platelets (Bld) [#/Vol] 268 103/ul Normal 150-450 [facility] Comment on above: Performed By: #### D RUGRPD #### [facility] [address] [place] [address] Christian Degroot RBC (Bld) [#/Vol] 4.27 106/ul Normal 4.20-5.[address] [facility] Comment on above: Performed By: #### D RUGRPD #### [facility] [address] [place], [place] [phone] Christian Degroot SEG # 24.82 103/ul Critically high 1.40-6.50 [facility] Comment on above: Performed By: #### D JUNED #### [facility] [address] [place], [place] [phone] Christian Degroot Segmented neutrophils/100 WBC (Bld) 94.0 % Critically high 43.0-75.0 [facility] Comment on above: Performed By: #### D MARIAMARPD #### [facility] [address] [place] [address] Christian Degroot WBC (Bld) [#/Vol] 26.4 103/ul Critically high 4.0-11.0 [facility] Comment on above: Performed By: #### D RUGRPD #### [facility] [address] [place], [place] [phone] Christian Degroot CPKon 03-06-2020 CK [Catalytic activity/Vol] 464 U/L Critically high 30-135 [facility] Comment on above: Result Comment: test repeated critical value verified Performed By: #### C K #### [facility] [address] [place] [address] ABD/PELV W CONon 03-06-20 [...] MAT CASEY Date: 2020-03-06 18:45 Normal [facility] CT STROKE HEAD WOon 03-06-20 20 [...] MAT CASEY Date: 2020-03-06 16:31 Normal [facility] DRUG SCREEN RAPID (URINE)on 03-06-2020 AMP Positive Normal NEGATIVE [facility] Comment on above: Performed By: #### D RUGRPD #### [facility] [address] [place] [address] Christian Mikayla BAR Negative Normal NEGATIVE [facility] Comment on above: Performed By: #### D RUGRPD #### [facility] [address] [place] [address] Christian Mikayla BUP Negative Normal NEGATIVE [facility] Comment on above: Performed By: #### D RUGRPD #### [facility] [address] [place] [address] Christian Mikayla BZO Negative Normal NEGATIVE [facility] Comment on above: Performed By: #### D RUGRPD #### [facility] [address] [place] [address] Christian Mikayla RITCHIE Negative Normal NEGATIVE [facility] Comment on above: Performed By: #### D RUGRPD #### [facility] [address] [place] [address] Mikayla CUT-OFFS SEE BELOW Normal [facility] Comment on above: Result Comment: AMP [...] ng/mL Performed By: #### D RUGRPD #### [facility] [address] [place] [address] DRUG CUT HEADER DRUG CLASS TEST SYST EM CUT-OFF CONCENTRATIONS ARE FOLLOWS: Normal [facility] Comment on above: Performed By: #### D RUGRPD #### [facility] [address] [place] [address] Christian Mikayla mAMP Negative Normal NEGATIVE [facility] Comment on above: Performed By: #### D RUGRPD #### [facility] [address] [place] [address] Christian Mikayla MTD Negative Normal NEGATIVE [facility] Comment on above: Performed By: #### D RUGRPD #### [facility] [address] [place] [address] Christian Mikayla OPI Positive Normal NEGATIVE [facility] Comment on above: Performed By: #### D RUGRPD #### [facility] [address] [place] [address] Christian Mikayla OXY Negative Normal NEGATIVE [facility] Comment on above: Performed By: #### D RUGRPD #### [facility] [address] [place] [address] Christian Mikayla PCP Negative Normal NEGATIVE [facility] Comment on above: Performed By: #### D RUGRPD #### [facility] [address] [place] [address] Christian Mikayla PPX Negative Normal NEGATIVE [facility] Comment on above: Performed By: #### D RUGRPD #### [facility] [address] [place] [address] Christian Mikayla TCA Negative Normal NEGATIVE [facility] Comment on above: Performed By: #### D RUGRPD #### [facility] [address] [place] [address] Christian Mikayla THC Negative Normal NEGATIVE [facility] Comment on above: Performed By: #### D RUGRPD #### [facility] [address] [place] [address] Christian Mikayla ER URINE PROFILEon 0 Bilirubin [Mass/Vol] Negative Normal NEGATIVE [facility] Comment on above: Performed By: #### E RUR #### [facility] [address] [place] [address] Christian Mikayla BLOOD Negative Normal NEGATIVE [facility] Comment on above: Performed By: #### E RUR #### [facility] [address] [place] [address] Christian Mikayla Clarity (U) CLEAR Normal [facility] Comment on above: Performed By: #### E RUR #### [facility] [address] [place] [address] Christian Mikayla Color (U) YELLOW Normal YELLOW [facility] Comment on above: Performed By: #### E RUR #### [facility] [address] [place], [place] [phone] Christian Mikayla ERUAHD A micrscopic examina tion will be performed if indicated. Normal [facility] Comment on above: Performed By: #### E RUR #### [facility] [address] [place] [address] Christian Mikayla Glucose [Mass/Vol] Negative Normal NEGATIVE [facility] Comment on above: Performed By: #### E RUR #### [facility] [address] [place] [address] Christian Mikayla Ketones Ql (U) Negative Normal NEGATIVE [facility] Comment on above: Performed By: #### E RUR #### [facility] [address] [place] [address] Christian Mikayla Nitrite Ql (U) Negative Normal NEGATIVE [facility] Comment on above: Performed By: #### E RUR #### [facility] [address] [place] [address] Christian Mikayla pH (Bld) 6.0 Normal 5-9 [facility] Comment on above: Performed By: #### E RUR #### [facility] [address] [place] [address] Christian Mikayla Protein (U) [Mass/Vol] TRACE Normal [facility] Comment on above: Performed By: #### E RUR #### [facility] [address] [place] [address] Christian Mikayla SPEC GRAVITY >=1.030 Normal 1.005-<=1.02 5 [facility] Comment on above: Performed By: #### E RUR #### [facility] [address] [place] [address] Christian Mikayla UR MICRO IND NOT INDICATED Normal [facility] Comment on above: Performed By: #### E RUR #### [facility] [address] [place], [place] [phone] Christianvíctor Degroot Urobilinogen Qn (U) 0.2 EU/dl Normal [facility] Comment on above: Performed By: #### E RUR #### [facility] [address] [place], [place] [phone] Christian Mikayla WBC (Bld) [#/Vol] Negative Normal NEGATIVE [facility] Comment on above: Performed By: #### E RUR #### [facility] [address] [place], [place] [phone] Christian Mikayla ETHANOL (BLD ALC)on 03-06-20 20 Ethanol [Mass/Vol] NOTE: 80 mg/dl is th e legal limit for a blood alcohol level Normal [facility] Comment on above: Performed By: #### E TH #### [facility] [address] [place], [place] [phone] Christian Mikayla Ethanol [Mass/Vol] mg/dL Normal [facility] Comment on above: Performed By: #### E TH #### [facility] [address] [place] [address] Christian Mikayla HEMOGRAM AND PLATELon 2019 WBC (Bld) [#/Vol] 23.5 103/ul Critically high 4.0-11.0 [facility] Comment on above: Performed By: #### H H #### [facility] [address] [place] [address] Christian Mikayla LACTATE/LACTIC ACIDon 2019 Lactate [Moles/Vol] 0.7 mmol/L Normal 0.7-2.0 [facility] Comment on above: Performed By: #### L ACT #### [facility] [address] [place] [address] Christianvíctor Santanaen MYOGLOBINon 03-06-2020 Myoglobin [Mass/Vol] 918.0 ng/mL Critically high <=61.5 [facility] Comment on above: Result Comment: test repeated critical value verified Performed By: #### M YO #### [facility] [address] [place], [place] [phone] Christianvíctor Degroot POINT OF CARE GLUCOSEon 02-14 Glucose [Mass/Vol] 117 mg/dL Critically high 74-106 [facility] Comment on above: Performed By: #### D COLT #### [facility] [address] [phone] Christianvíctor Santanaen PROF 14(COMP METB)on 020 Albumin [Mass/Vol] 3.3 g/dL Critically low 3.5-5.0 [facility] Comment on above: Performed By: #### T BLAYNE, CMP #### [facility] [address] [phone] Christian Mikayla Albumin/Globulin [Mass ratio] 1.1 {ratio} Normal [facility] Comment on above: Performed By: #### T BLAYNE, CMP #### [facility] [address] [place] [address] Christian Mikayla ALP [Catalytic activity/Vol] 69 U/L Normal 38-126 [facility] Comment on above: Performed By: #### T ROP, CMP #### [facility] [address] [phone] Christian Mikayla ALT [Catalytic activity/Vol] 30 U/L Normal 9-52 [facility] Comment on above: Performed By: #### T ROP, CMP #### [facility] [address] [place] [address] Christian Mikayla Anion gap [Moles/Vol] 16.8 mmol/L Normal [facility] Comment on above: Performed By: #### T ROP, CMP #### [facility] [address] [place] [address] Christian Mikayla AST [Catalytic activity/Vol] 29 U/L Normal 14-36 [facility] Comment on above: Performed By: #### T ROP, CMP #### [facility] [address] [place] [address] Christian Mikayla Bilirubin Ql (U) 0.4 mg/dL Normal 0.2-1.3 [facility] Comment on above: Performed By: #### T ROP, CMP #### [facility] [address] [phone] Christian Mikayla Calcium [Mass/Vol] 8.7 mg/dL Normal 8.4-10.[address] [facility] Comment on above: Performed By: #### T ROP, CMP #### [facility] [address] [phone] Christian Mikayla Chloride [Moles/Vol] 104 mmol/L Normal 98-107 [facility] Comment on above: Performed By: #### T ROP, CMP #### [facility] [address] [address] Christian Mikayla CO2 [Moles/Vol] 22.6 mmol/L Normal 22.0-30.0 [facility] Comment on above: Performed By: #### T ROP, CMP #### [facility] [address] [place] [address] Christian Mikayla Creatinine [Mass/Vol] 0.92 mg/dL Normal 0.52-1.04 [facility] Comment on above: Performed By: #### T ROP, CMP #### [facility] [address] [phone] Christian Mikayla EGFR-AF [facility] >60 Normal >=60 [facility] Comment on above: Performed By: #### T ROP, CMP #### [facility] [address] [place] [address] Christian Mikayla EGFR-NON AF [facility] >60 Normal >=60 [facility] Comment on above: Performed By: #### T ROP, CMP #### [facility] [address] [phone] Christian Mikayla Globulin (S) [Mass/Vol] 3.0 g/dL Normal [facility] Comment on above: Performed By: #### T ROP, CMP #### [facility] [address] [place], [place] [phone] Christian Mikayla Glucose [Mass/Vol] 130 mg/dL Critically high 74-106 [facility] Comment on above: Performed By: #### T ROP, CMP #### [facility] [address] [place], [place] [address] Christian Mikayla Potassium [Moles/Vol] 4.4 mmol/L Normal 3.4-5.0 [facility] Comment on above: Performed By: #### T BLAYNE, CMP #### [facility] [address] [place] [address] Christian Mikayla Protein [Mass/Vol] 6.3 g/dL Normal 6.1-8.[address] [facility] Comment on above: Performed By: #### T BLAYNE, CMP #### [facility] [address] [place] [address] Christian Mikayla Sodium [Moles/Vol] 139 mmol/L Normal 137-145 [facility] Comment on above: Performed By: #### T BLAYNE, CMP #### [facility] [address] [place] [address] Christian Mikayla Urea nitrogen [Mass/Vol] 18.0 mg/dL Critically high 7.0-17.0 [facility] Comment on above: Performed By: #### Bill CISNEROS, CMP #### [facility] [address] [place] [address] Christian Mikayla Urea nitrogen/Creatinin e [Mass ratio] 19.6 mg/mg Normal [facility] Comment on above: Performed By: #### Bill CISNEROS, CMP #### [facility] [address] [place] [address] Christian Mikayla RESPIRATORY PANEL PLUSon Adenovirus NOT DETECTED Normal NOT DETECTED [facility] Comment on above: Performed By: #### D RUGRPD #### [facility] [address] [place] [address] Christian Mikayla B. Parapertusis NOT DETECTED Normal NOT DETECTED [facility] Comment on above: Performed By: #### D RUGRPD #### [facility] [address] [place], [place] [phone] Christian Mikayla B. Pertussis NOT DETECTED Normal NOT DETECTED [facility] Comment on above: Performed By: #### D RUGRPD #### [facility] [address] [place] [address] Christian Mikayla Chlamydia Pneumoniae NOT DETECTED Normal NOT DETECTED [facility] Comment on above: Performed By: #### D RUGRPD #### [facility] [address] [address] Christian Mikayla Coronavirus 229E NOT DETECTED Normal NOT DETECTED [facility] Comment on above: Performed By: #### D RUGRPD #### [facility] [address] [address] Christian Mikayla Coronavirus HKU1 NOT DETECTED Normal NOT DETECTED [facility] Comment on above: Performed By: #### D RUGRPD #### [facility] [address] [place] [address] Christian Mikayla Coronavirus NL63 NOT DETECTED Normal NOT DETECTED [facility] Comment on above: Performed By: #### D RUGRPD #### [facility] [address] [place] [address] Christian Mikayla Coronavirus OC43 NOT DETECTED Normal NOT DETECTED [facility] Comment on above: Performed By: #### D RUGRPD #### [facility] [address] [place] [address] Christian Mikayla Influenza A H1 2009 NOT DETECTED Normal NOT DETECTED [facility] Comment on above: Performed By: #### D RUGRPD #### [facility] [address] [place] [address] Christian Mikayla Influenza B NOT DETECTED Normal NOT DETECTED [facility] Comment on above: Performed By: #### D RUGRPD #### [facility] [address] [place] [address] Christian Mikayla Metapneumovirus NOT DETECTED Normal NOT DETECTED [facility] Comment on above: Performed By: #### D RUGRPD #### [facility] [address] [place] [address] Christian Mikayla Mycoplas. Pneumoniae NOT DETECTED Normal NOT DETECTED [facility] Comment on above: Performed By: #### D RUGRPD #### [facility] [address] [place] [address] Christian Mikayla Parainfluenza 1 NOT DETECTED Normal NOT DETECTED [facility] Comment on above: Performed By: #### D RUGRPD #### [facility] [address] [place] [address] Christian Mikayla Parainfluenza 2 NOT DETECTED Normal NOT DETECTED [facility] Comment on above: Performed By: #### D RUGRPD #### [facility] [address] [place] [address] Christian Mikayla Parainfluenza 3 NOT DETECTED Normal NOT DETECTED [facility] Comment on above: Performed By: #### D RUGRPD #### [facility] [address] [place] [address] Christian Mikayla Parainfluenza 4 NOT DETECTED Normal NOT DETECTED [facility] Comment on above: Performed By: #### D RUGRPD #### [facility] [address] [place] [address] Christian Mikayla Rhino/Enterovirus NOT DETECTED Normal NOT DETECTED [facility] Comment on above: Performed By: #### D RUGRPD #### [facility] [address] [place] [address] Christian Mikayla RP2 Header 1 RESPIRATORY PANEL: VIRUSES Normal [facility] Comment on above: Performed By: #### D RUGRPD #### [facility] [address] [place] [address] Christian Mikayla RP2 Header 2 RESPIRATORY PANEL: BACTERIA Normal [facility] Comment on above: Performed By: #### D RUGRPD #### [facility] [address] [place] [address] Christian Mikayla RP2 Header 4 EUA SEE BELOW Normal [facility] Comment on above: Result Comment: This test is not yet approved or cleared by the [place] FDA. When there are no FDA-approved or cleared tests available, and other criteria are met, FDA can make tests available under an emergency access mechanism called an Emergency Use Authorization (EUA). The EUA for this test is supported by the Electrical Superintendent of Health and Human Service?s (HHS?s) declaration [...] used). Performed By: #### D RUGRPD #### [facility] [address] [place] [address] Christian Degroot RSV NOT DETECTED Normal NOT DETECTED [facility] Comment on above: Performed By: #### D RUGRPD #### [facility] [address] [place] [address] Christian Degroot SARS-CoV-2: COVID-19 NOT DETECTED Normal NOT DETECTED [facility] Comment on above: Performed By: #### D RUGRPD #### [facility] [address] [place] [address] Christian Mikayla TROPONIN - Ion 03-06-2020 Troponin I.cardiac [Mass/Vol] 0.016 ng/mL Normal <=0.034 [facility] Comment on above: Performed By: #### T BLAYNE, CMP #### [facility] [address] [place] [address] Christian Mikayla Troponin I.cardiac [Mass/Vol] SEE BELOW Normal [facility] Comment on above: Result Comment: <0.0 34 ng/ml NEGATIVE 0.034-0.119 INDETERMINATE 0.120 AMI CUT OFF Performed By: #### T BLAYNE, CMP #### [facility] [address] [place] [address] Christian Degroot XR CHEST 1 Von 03-06-2020 [...] FELA SMITH Date: 2020-03-06 15:07 Normal [facility] CT 3D CERVICAL SPINE WITH CO NTRASTon 04-27-2018 CT 3D CERVICAL SPINE WITH CONTRAST [facility] [id number] [place] [address] [place] [address] Patient Name: RADHA DUNCAN : 1970Sex: FAge: Race: WhiteMRN: [id number]. Location: 85Patient Status: OVisit #: [id number] Date: 04/10/2018 12:10:00 PMCompleted Date: 04/27/2018 10:58 AMRequesting Provider: MARY DIAL Attending Provider: MARY DIAL Report Copy To: TEJAS RICHARDSON Signs & Symptoms: M54.12 Radiculopathy, cervical region [id number]: Nyla MYELOGRAM AUTH [id number] VALID 04/11/18-07/12/18 PER [employer] [id number] JYComments: Exam: CT 3D CERVICAL SPINE WITH CONTRASTAccession #: [id number] CT 3D CERVICAL SPINE WITH CONTRAST 04/27/2018 [...] findings. Electronically signed by:Oli Sanders. Transcribed by: [email or web address], User Resident: MANDEEP YOUNGElectronically Signed by: OLI SANDERS @ 04/27/2018 01:02 PMI personally read this/these film(s) with this resident Normal The [facility] CT 3D LUMBAR SPINE W CONTRAS Ton 04-27-2018 CT 3D LUMBAR SPINE W CONTRAST [facility] [address] [place] [address] Patient Name: RADHA DUNCAN : 1970Sex: FAge: Race: WhiteMRN: [id number]. Location: 85Patient Status: DVisit #: [id number] Date: 04/10/2018 12:10:00 PMCompleted Date: 04/27/2018 10:59 AMRequesting Provider: MARY DIAL Attending Provider: MARY DIAL Report Copy To: TEJAS RICHARDSON Signs & Symptoms: M54.16 Radiculopathy, lumbar region M08Ifcnsir: Nyla MYELOGRAM AUTH [id number] VALID 04/11/18-07/12/18 PER [employer] [facility] [id number] JYComments: Exam: CT 3D LUMBAR SPINE W CONTRASTAccession #: [id number] CT 3D LUMBAR SPINE W CONTRAST 04/27/2018 [...] findings. Electronically signed by:Antony Skelton. Transcribed by: [email or web address], User Resident: MANDEEP YOUNGElectronically Signed by: ANTONY SKELTON @ 04/27/2018 05:36 PMI personally read this/these film(s) with this resident Normal [facility] ENTIRE MYELOGRAMon 8 ENTIRE MYELOGRAM [facility] [address] [place], [place] [address] Patient Name: RADHA DUNCAN : 1970Sex: FAge: Race: WhiteMRN: [id number]. Location: 85Patient Status: OVisit #: [id number] Date: 04/10/2018 12:10:00 PMCompleted Date: 04/27/2018 10:19 AMRequesting Provider: MARY DIAL Attending Provider: MARY DIAL Report Copy To: TEJAS RICHARDSON Signs & Symptoms: M54.16 Radiculopathy, lumbar region A70Jcfvesb: [place] CT MYELOGRAMComments: , , , Ordering Provider - MARY DIAL MD , Exam: ENTIRE MYELOGRAMAccession #: [id number] ENTIRE MYELOGRAM 04/27/2018 10:19 AM EST SIGNS [...] and risks are acceptable. Consent was obtained. Timeout:[place] protocol timeout verification performed. PROCEDURE:Estimated blood loss:None [...] findings. Electronically signed by:Oli Sanders. Transcribed by: [email or web address], User Resident: MANDEEP YOUNGElectronically Signed by: OLI SANDERS @ 04/27/2018 01:01 PMI personally read this/these film(s) with this resident Normal [facility] Comment on above: Order Comment: , , = ========= , Ordering Provider - MARY DIAL MD , CNPNon 02-20-2018 CNPN Telephone (PAINCC) -------DAKOTARADHA ([id number]) 1970 [facility] Time Provider Mgdajqwioe97/8/18 MAGED MURDOCK During your visit today, we recorded the following information about you:Jacinta Philippe [facility] Patient Service Spec 02/20/2018 8:05 AM [...] from his care.Please call her back at [phone].Elysia Montoya Psr 02/22/2018 8:37 AM SignedPlease fax letter over to [phone].Clint Park LPN 02/27/2018 10:18 AM SignedSpoke with patient and she wanted to know if knew of a physician inthe area that she lived that could do the ketamine infusion.I explained most likely he would not have this information she would need tocheck around in her area with other pain providers to see if they do theinfusions. [place] but they want money upfront and [...] by MAGED MURDOCK MD on 02/28/18 Normal [facility] CNOVon 02-10-2018 CNOV Office Visit (PAINCC) -------RADHA DUNCAN ([id number]) 1970 [facility] Time Provider Department02/10/18 10:45 AM MAGED MURDOCK During your visit today, we recorded the following information about you: Pulse Respiration Blood pressure Weight 80/minute 16/minute 132/47 69.9 kgMaged Murdock MD 02/11/2018 1:30 PM AddendumSUBJECTIVE:The patient presents to [facility] Pain Management Department for afollow-up appointment for [...] [facility] [facility] [address]Imaging results in [...] other than HPI.Data scribed by above mentioned MA/JET OPERATOR/RN/PA, and personally reviewed andverified by physician. Maged [...] treatment plan. Patient agreeswith above. Maged Murdock, PAUmount 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 Sincerely, Maged Murdock MDEncounter Number: [id number] Status:Closed by MAGED MURDOCK MD on 02/11/18 Normal [facility] PROGRESSon 02-10-2018 Protein mass conc HNO ID: [id number] thor: Maged Jolleyervice: (none)Author Type: PhysicianType: Progress NotesFiled: 02/11/2018 1:30 PMNote Text:SUBJECTIVE:The patient presents to [facility] Pain Management Departmentfor a follow-up appointment for [...] medication: percocet was last taken 02/09/2018 in themete morningRelevant OARRS records were reviewed.Imaging results in [...] other than HPI.Data scribed by above mentioned MA/JET OPERATOR/RN/PA, and personally reviewed andverified by physician. Maged [...] with above. Maged Murdock, MDSeptember 2017 Normal [facility] CNOVon 01-10-2018 CNOV Office Visit (PAINCC) -------RADHA DUNCAN ([id number]) 1970 FDate Time Provider Department01/10/18 1:00 PM MONICA YAN (ARLENE) PAINCC During your visit today, we recorded the following information about you: Pulse Blood pressure Weight 85/minute 127/47 70.3 kgMonica Yan APRN.CNP 01/10/2018 2:13 PM SignedSUBJECTIVE:The patient presents to [facility] Pain Management Department for afollow-up appointment for [...] and C4-C5 secondaryto DDDAnterior mechanical fusion of U7-3-1LEFPZG OF SYSTEMS:GENERAL: (-) weight loss, (+)malaise, (-)fevers.HEENT:(+)headache [...] other than HPI.Data scribed by above mentioned MA/JET OPERATOR/RN/PA, and personally reviewed andverified by Monica Yan [...] resulting treatment plan. Patient agreeswith above.Monica Yan APRN.CNPGloucester Courthouse 2018Referring Provider: TEJAS RICHARDSON JR [[id number]]Allergies As of Date: 01/10/2018(No Known Allergies)Date Reviewed: 01/10/2018Reviewed by: Clint Park JET OPERATOR - Fully AssessedReason for Visit: Follow Up [...] INVALID FOR*Follow-up and Disposition History RecordedEncounter Number: [id number] Status:Closed by MONICA YAN CNP on 01/10/18 Normal [facility] PROGRESSon 01-09-2018 Protein mass conc HNO ID: [id number] thor: Monica L (Stepdown Nurse) HillService: (none)Author Type: Nurse PractitionerType: Progress NotesFiled: 01/10/2018 2:13 PMNote Text:SUBJECTIVE:The patient presents to [facility] Pain Management Departmentfor a follow-up appointment for [...] to moderate foraminal narrowing at C3-C4, and C4-X1uhaybpzzb to DDDAnterior mechanical fusion of G6-2-1OHQMIB OF SYSTEMS:GENERAL: (-) weight loss, (+)malaise, (-)fevers.HEENT:(+)headache [...] other than HPI.Data scribed by above mentioned MA/JET OPERATOR/RN/PA, and personally reviewed andverified by Monica Yan [...] Rehab (pt [facility] not have [facility])2) Discussed option of [...] resulting treatment plan. Patientagrees with above.Monica Yan APRN.ARLENEAugeorgiana 2017 [facility]Flaca 12-21-2017 [facility]ITALYamile[facility] Tele[facility] (JOYCELYN) -------RADHA DUNCAN ([id number]) 1970 FDate Time Provider Department12/21/17 MAGED MURDOCK During your visit today, we recorded the following information about you:Lorena Araiza 12/21/2017 10:31 AM AddendumPatient calling in to inquire if you have received MRI [facility].Please advisJacob Park LPN 12/22/2017 3:15 PM SignedSpoke with patient and informed her that we did receive the thoracic MRI whichwas normal.We did not receive the cervical MRI. She will call [facility] and have them refaxit.Kami Zheng Workleader 12/26/2017 9:53 AM SignedPatient called back in regards to below message. Patient would like to know ifwe have received the Cervical MRI as it was refaxed 12/22. Pleasereview.Clint Park LPN 12/26/2017 11:01 AM SignedSpoke to [facility] and they are refaxing it as I [...] LPN - Fully AssessedReason for Visit: Question [3008]Prescriptions as of 12/21/2017 Sig: OXCARBAZEPINE 150 MG [...] by CLINT PARK LPN on 12/22/17 Normal [facility] CNOVon 12-08-2017 CNOV Office Visit (PAINCC) -------DAKOTARADHA Reyez ([id number]) 1970 FDate Time Provider Department12/08/17 1:30 PM MAGED MURDOCK During your visit today, we recorded the following information about you: Pulse Respiration Blood pressure Weight 62/minute 16/minute 105/40 68.9 kgJosenjourdan Murdock MD 12/08/2017 6:06 PM SignedReferring Or Consulting Physician:Lindsey Aguilar, JACKY[address] [address]QFCNB COMPLAINT: pain in my neck, shoulders, thoracic [...] Number of children: 0Occupational 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 Maged [...] also during rena-operative period. we dont have scvr-rivpqss-vabqvgyi for disability, likely to hamper rapid recovery [...] she did have severe postprocedure pain in [place] [facility] handsDirect patient care time spent: [...] mail.Maged Murdock MDJuly 2017Referring Provider: LINDSEY AGUILAR [[id number]]Allergies As of Date: 12/08/2017(No Known Allergies)Date Reviewed: [...] region [M48.02]Order(s):C-REACTIVE PROTEIN (CRP) [SQCRP] Order #: [id number] FUTURE SED RATE WESTERGREN [SQWSR] Order #: [id number] FUTURE TSH BLD [SQTSH] Order #: [id number] FUTURE IRON + TIBC [SQIRON] Order #: [id number] FUTURE VITAMIN D 25 HYDROXY [SQVITD] Order #: [id number] FUTURE MRI THORACIC SPINE WO/W IVCON [3743911] Order #: [id number] FUTURE iv contrast (will be provided with [...] EachRfl: 0 MRI CERVICAL SPINE WO IVCON [0298999] Order #: [id number] FUTUREPrescriptions as of 12/08/2017 Sig: OXCARBAZEPINE 150 [...] discontinue is not on file.Letter TextJuly 2017Maged MurdockCleveland Clinic Fairview Hospitalpartment of Pain [address], [place] [phone] [phone] Suzanne M Bailey:Thank you for seeing me today. Based on our discussion today and review ofur old records, it appears that:1. Your arm pain seems to be unrelated to your nerve damage at the spine.2. Your neck pain appears to be caused by the facet joints in the neck. Thismay also be the cause of your occipital headache (back of the head).So, it is curious that the diagnostic blockade did not change the pain inur neck, arms or head. Normally, I would suggest we repeat this test.However, since you had as you describe, severe pain post-procedure, Iwouldn't repeat this test straightaway.Since you continue to have pain in the cervical and thoracic spine, we shouldfurther investigate that. I've ordered some testing to do so (labs,imaging).Instead, optimizing your medications for the issues above, and [facility] be the next steps. Afterthat, further testing could be done to get to the bottom of your problems.Please call with any questions. 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 Maged [...] she did have severepost procedure pain in [place] [facility] handsDirect patient care time spent: [...] fax, or mail.Maged Murdock MDJuly 2017 Normal [facility] Vital Signs Date Time Vital Sign Value Performing Clinician Faci lity 06-26-2024 09:30-0500 Body height 160 cm Maged Contreras DO Work Phone: [facility] 06-26-2024 09:30-0500 Body mass index (BMI) [Ratio] 30.11 kg/m2 Maged Contreras DO Work Phone: [facility] 06-26-2024 09:30-0500 Body weight 77.11 kg Maged Contreras DO Work Phone: [facility] Healthcare Encounters Encounter Date Encounter Type Care Provider Facility Start: 06-26-2024 End: 06-26-2024 Bamboo flowsheet Maged Contreras DO Work Phone: [facility] Start: 06-26-2024 End: 06-26-2024 Bamboo flowsheet Maged Eagle Ben DO Work Phone: [facility] Start: 06-26-2024 End: 06-26-2024 Clinical Support Gina Riddle [facility]A Work Phone: [facility] Comment on above: 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 (Primary Dx) Start: 06-26-2024 End: 06-26-2024 Office outpatient new 45 minutes Magde Eagle Ben DO Work Phone: [facility] Comment on above: 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 (Primary Dx); Impacted cerumen of left ear Start: 06-25-2024 End: 06-25-2024 ambulatory [facility] Start: 06-11-2024 End: 06-11-2024 ambulatory [facility]on [facility] Start: 04-24-2024 End: 04-24-2024 ambulatory [facility] Start: 04-11-2024 End: 04-11-2024 [facility] Start: 04-04-2024 End: 04-04-2024 ambulatory [facility] Start: 03-27-2024 End: 03-27-2024 ambulatory [facility] Start: 03-20-2024 End: 03-20-2024 ambulatory [facility] Start: 03-16-2024 End: 03-16-2024 ambulatory TEJAS RICHARDSON [facility] Start: 03-15-2024 End: 03-15-2024 ambulatory [facility] Work Phone: Start: 03-15-2024 End: 03-15-2024 Patient encounter procedure [facility] Work Phone: Start: 03-13-2024 End: 03-13-2024 ambulatory [facility] Start: 03-07-2024 End: 03-07-2024 ambulatory UNKNOWN [facility] Start: 12-15-2023 End: 01-15-2024 ambulatory [facility] Start: 12-05-2023 End: 12-15-2023 ambulatory [facility] Start: 11-10-2023 End: 11-10-2023 ambulatory Hanane HENDRICKS Facility:Infectious Disease Start: 10-26-2023 End: 10-26-2023 ambulatory Pavel Rodriges MD Facility:[facility] Start: 10-26-2023 End: 10-26-2023 ambulatory Pavel Rodriges MD Facility:[facility] Start: 08-22-2023 End: 08-22-2023 ambulatory [facility] Start: 08-15-2023 End: 09-14-2023 ambulatory [facility] Start: 07-18-2023 End: 08-15-2023 ambulatory [facility] Start: 03-06-2020 End: 03-07-2020 Patient encounter procedure PEREZ LESTER Facility: Start: 04-27-2018 End: 04-28-2018 Patient encounter procedure PROVIDER UNKNOWN Facility:[facility] Start: 02-10-2018 End: 02-13-2018 Patient encounter MAGED MURDOCK [facility] Start: 01-10-2018 End: 01-11-2018 Patient encounter MONICA YAN [facility] Start: 12-08-2017 End: 12-09-2017 Patient encounter MAGED TELLEZAHAM [facility] Procedures Date Procedure Procedure Detail Performing Clinician Start: 06-26-2024 AUDITORY FUNCTION TESTS Gina Riddle [facility] Work Phone: Start: 03-06-2020 End: 03-06-2020 Microscopic examination of blood, culture PEREZ LESTER Comment on above: Performed By: #### D RUGRPD #### [facility] [address] [address] Christian Degroot Start: 01-30-2020 Mammography Maged mercer DO Work Phone: Plan of Treatment Date Care Activity Detail Author Start: 02-06-2025 Screening for malign ant neoplasm of cervix [facility] Start: 06-26-2024 End: 06-26-2024 Patient encounter procedure 06/26/2024 9:30 AM EST Office Visit [facility] [address] [place] [address] Maged Contreras, DO [address] [place] [address] Arrived [facility] Comment on above: Arrived Start: 01-15-2024 Influenza vaccination Influenza Vacc ine (#1) [facility] Start: 01-29-2021 Screening for malign ant neoplasm of breast Mammogram [facility] Start: 1990 Screening for malign ant neoplasm of cervix Pap Smear [facility] Start: 1970 Screening for malign ant neoplasm of colon [facility] Immunizations Immunization Date Immunization Notes Care Provider Nazanin thornton 11-29-2020 Pfizer Purple Cap SARS-CoV-2 Vaccination Maged Contreras DO Work Phone: [facility] 11-09-2020 Pfizer Purple Cap SARS-CoV-2 Vaccination Maged Contreras DO Work Phone: [facility] 03-06-2020 influenza, high dose seasonal, preservative-free Maged Contreras DO Work Phone: [facility] 03-06-2020 influenza virus vacc ine, unspecified formulation Maged Contreras DO Work Phone: [facility] Payers Date Payer Category Payer Private Health Insurance [place] [id number] 2023 Unknown 2023 Unknown [id number] 2022 Unknown [id number] 1970 Unknown [id number] 2.0.1.250581.3.579. 2.647 1970 Unknown [id number] 2.840.1.638582.3.579. 2.593 1970 Unknown [id number] 2.0.1.007647.3.579. 2.1285 1970 Unknown [id number] 2.840.1.822994.3.579. 2.128 1970 Unknown [id number] 2.0.1.006270.3.579. 2.1285 1969 Unknown [id number] .840.1.233656.3.579. 2.1285 1970 Unknown [id number] 2.0.1.489260.3.579. 2.1285 1969 Unknown [id number] 2.840.1.387784.3.579. 2.128 1969 Unknown [id number] 2.840.1.260317.3.579. 2.1285 1969 Unknown [id number] 2.840.1.249285.3.579. 2.1285 1969 Unknown [id number] 2.840.1.657737.3.579. 2.128 1970 Unknown [id number] 2.16.840.1.943220.3.579. 2.1286 1969 Unknown [id number] 2.16.840.1.987898.3.579. 2.6 1970 Unknown [id number] 2.16.840.1.764666.3.579. 2.6 1970 Unknown [id number] 2.16840.1.392009.3.579. 2.1285 1970 Unknown [id number] 2.16840.1.400438.3.579. 2.1285 1970 Unknown [id number] 2.16840.1.382475.3.579. 2.128 1969 Unknown [id number] 2.16840.1.299882.3.579. 2.1259 1970 Unknown [id number] 2.840.1.704932.3.579. 2.1259 1970 Unknown [id number] 2.16840.1.726975.3.579. 2.196 1970 Unknown [id number] 2.16840.1.208427.3.579. 2.196 1970 Unknown [id number] 2.16840.1.523344.3.579. 2. 1970 Unknown [id number] 2.840.1.086861.3.579. 2. 1970 Unknown [id number] 2.16840.1.084023.3.579. 2.196 1959 Unknown [id number] Unknown [id number] Social History Date Type Detail Facility Tobacco smoking stat [facility] Unknown if ever smoked [facility] Work Phone: Start: 1970 Sex Assigned At Female F [facility] Start: 1970 Sex assigned at Not on file [facility] Start: 06-26-2024 Gender identity Not on file [facility] Start: 06-26-2024 Tobacco smoking stat us [facility] Smokes tobacco daily [facility] History of tobacco use Cigarette Smoker [facility] Start: 06-26-2024 Tobacco use and exposure Smokeless tobacco non-user [facility] Start: 06-26-2024 Alcoholic beverage intake Ex-drinker (finding) [facility] Start: 06-26-2024 History of Social function [facility] History of Present illness Narrative 06-26-2024 CK Dwyer - 06/26/2024 10:00 AM EST Note Date & Type Note Facility 06-26-2024 History of Presen t illness Narrative History: Pt was referred to ENT because of possible OM and decreased hearing left ear. Pt saw Dr. Contreras today and he removed wax from the left ear. Pt states she is hearing a little better but still notices a difference between the ears. Pure Tone Audiometry Right Ear: Normal hearing Left Ear: Mild to moderate hearing loss above 4K Hz . 25 dB air-bone gap at 4K Hz Speech Audiometry Right SRT = 10 dB and word discrimination score at 50 dBHL = 100% Left SRT = 10 dB and word discrimination score at 50 dBHL = 100% Tympanometry Right Ear: Type A tympanogram Left Ear: Type Ad tympanogram Acoustic Reflexes: Noisy documented in this encounter [facility] History of Present illness Narrative 06-26-2024 Maged Contreras DO - 06/26/2024 9:30 AM EST Note Date & Type Note Facility 06-26-2024 History of Presen t illness Narrative Allergies as of 06/26/2024 (Not on File) No past medical history on file. No current outpatient medications on file. No past surgical history on file. Social History Socioeconomic History Marital status: Not on file Spouse name: Not on file Number of children: Not on file Years of education: Not on file Highest education level: Not on file Occupational History Not on file Tobacco Use Smoking status: Not on file Smokeless tobacco: Not on file Substance and Sexual Activity Alcohol use: Not on file Drug use: Not on file Sexual activity: Not on file Other Topics Concern Not on file Social History Narrative Not on file Social Drivers of Health Financial Resource Strain: Not on file Food Insecurity: Not on file Transportation Needs: Not on file Physical Activity: Not on file Stress: Not on file Social Connections: Not on file Intimate Partner Violence: Not on file Housing Stability: Not on file Subjective Patient ID: HPI Patient is a 54-year-old female who is referred for some type of ear canal mass on the left side. Patient relates that she has had decrease in her left-sided hearing over about a year period of time. She has been treated with drops they do not seem to help. Audiogram that was done the referrals office shows essentially normal hearing for the left ear except for high-frequency. No pain or drainage. Review of Systems ROS The specialty specific review of systems is noncontributory except for that recorded in the intake questionnaire and /or described in the history of present illness. Objective ENT Physical Exam Physical Exam Constitutional: Appearance: Normal appearance. HENT: Head: Atraumatic. Ears: Right ear canal, tympanic membrane and middle ear appear to be normal. On the left, under the operating microscope I removed a lot of deep-seated cerumen directly against the tympanic membrane. There is some retraction tympanic membrane and the tympanic membrane is sclerotic so I really can not see much in the way of middle ear pathology. Nose: External nose appears to be normal Nares patent. Septal deviation to the left No evidence of polyp, mass or pus bilaterally. Oral Cavity: No evidence of trismus Lips appear normal Dental decent Tongue of normal size and configuration, floor of mouth mucosa clear. Buccal mucosa shows no evidence of ulceration, mass or other abnormality Hard palate soft palate mucosa intact with no evidence of mass, ulceration or other abnormality Uvula of normal size and configuration Oropharynx: Tonsils Posterior pharyngeal wall Neck: No evidence of palpable abnormality Thyroid without evidence of thyromegaly or mass. No cervical lymphadenopathy present. Cardiovascular: Rate and Rhythm: Normal rate and regular rhythm. . Skin: General: Skin is warm and dry. Neurological: General: No focal deficit present. Mental Status: alert and oriented to person, place, and time. Assessment/Plan Radha was seen today for otitis externa. Diagnoses and all orders for this visit: Sensorineural hearing loss (SNHL) of left ear with unrestricted hearing of right ear (Primary) Comments: I repeated the audiogram here in the office after the cleaning and essentially her hearing is normal on the left ear. Impacted cerumen of left ear Comments: See above I showed her the audiogram. She has a mild high-frequency sensorineural loss in the left ear. Tympanograms are normal. I reassured her, I will see her back as needed documented in this encounter [facility] Evaluation note Note Date & Type Note Facility Evaluation note No assessment information availa [facility] Work Phone: Evaluation note Note Date & Type Note Facility Evaluation note Diagnosis Sensorineural hearing loss (SNHL) of left ear with unrestricted hearing of right ear- Primary Impacted cerumen of left ear Impacted cerumen documented in this encounter [facility] Evaluation note Note Date & Type Note Facility Evaluation note Diagnosis Conductive hearing loss of left ear with unrestricted hearing of right ear- Primary documented in this encounter [facility] Healthcare Summary Purpose Family History No Family History [...] section and content) DATE CREATED AUTHOR 04/03/2018 [facility] DATE CREATED AUTHOR AUTHOR'S ORGANIZ ATION 05/03/2018 [facility] DATE CREATED AUTHOR AUTHOR'S ORGANIZ ATION 04/09/2020 [facility] DATE CREATED AUTHOR AUTHOR'S ORGANIZ ATION 04/07/2024 [facility] DATE CREATED AUTHOR AUTHOR'S ORGANIZ ATION 04/28/2024 [facility] DATE CREATED AUTHOR AUTHOR'S ORGANIZ ATION 06/28/2024 [facility] DATE CREATED AUTHOR AUTHOR'S ORGANIZ ATION 07/01/2024 [facility] Care Teams (unrecognized sec tion and content) Team Status: Active Member Role Status Dates Tejas Richardson JR DO Primary Care Provider Active Team Status: Inactive Member Role Status Dates Tejas Richardson JR DO Primary Care Provider Active Start: March 15, 2024 End: March 15, 2024 Fela Roman MD Attending Provider Active Sta rt: March 15, 2024 End: March 15, 2024 [employer] Relationship Specialty Start Date End Date Tejas Richardson MD [address] [place] [address] PCP - General Internal Medicine 06/26/24 [employer] Relationship Specialty Start Date End Date Tejas Richardson MD [address] [place], [place] [id number] PCP - General Internal Medicine 06/26/24 [employer] Relationship Specialty Start Date End Date Tejas Richardson MD [address] [place], [place] [id number] PCP - General Internal Medicine 06/26/24 Goals (unrecognized section and content) Goals may be documented in a n alternate section Reason for Visit (unrecogniz ed section and content) Reason Comments Otitis Externa New Patient : OE / p ossible mass in left ear FOR RECORDS PERTAINING TO PATIENTS WHO ARE [...] BE BASED ON THE PRIMARY CLINICAL RECORDS. [employer] provides no warranty or guarantee of the accuracy or completeness of information in this document.
[2024-07-23 08:10] VITALS: BP 130/68; PULSE 98; TEMP 36.2; O2SAT 100
[2024-07-23 08:43] VITALS: BP 116/67; PULSE 82; O2SAT 97
[2024-07-23] MEDS: BUPIVACAINE HCL 0.25% PF 25 MG/10 ML VIAL 2 ML INJ (08:44)
[2024-07-23] MEDS: IOHEXOL 240 MG/ML - 10 ML VIAL INJ (08:44)
[2024-07-23] MEDS: METHYLPREDNISOLONE ACETATE 40 MG/ML VIAL INJ (08:45)
[2024-07-23] MEDS: LIDOCAINE HCL 2% 400 MG/20 ML MDV INJ (08:45)
--- NOTE | 2024-07-23 08:45 | W.PM.PROCNOT ---
Date of procedure: 07/23/24 Pre-op diagnosis: Pain due to left sacroiliitis Post-op diagnosis: same as pre-op Procedure: Procedure: Left sacroiliac joint injection Medications: Bupivacaine 0.25% 3cc, depomedrol 40mg After informed consent was obtained, the patient was brought to the medical procedure unit and placed in the prone position, when a timeout was completed verifying correct patient, procedure, site, positioning, implant, and/or special equipment.? The skin overlying the area was prepped and draped in standard sterile fashion using alcohol.? A 25-gauge needle was inserted towards the left sacroiliac joint under direct fluoroscopic imaging.? Needle tip was advanced until the joint was encountered.? We instilled a total of 2 mL of solution.? Postoperatively needles were removed.? The patient tolerated the procedure well without complication.? The patient reported reduction in pain symptoms postoperatively. Anesthesia: Local Surgeon: Christian Jameson Pathology: none sent Condition: stable Disposition: no change
[2024-07-23 08:46] VITALS: BP 115/60; PULSE 85; O2SAT 98
== END 2024-07-23 08:51 | disposition home or self-care (01) ==
PROVIDERS: PCP Internal Medicine; Visit Provider Anesthesiology
DX: M46.1 Sacroiliitis, not elsewhere classified (principal)
CPT/HCPCS: 27096; J0665; J1010; Q9966

== ENCOUNTER 2024-08-08 09:35 | Outpatient (OUT) | payer OTHER, SELFPAY ==
--- OUTSIDE RECORDS SUMMARY | 2024-08-08 09:49 | XMS_ITS | CCD ---
Author Organization [facility] Care Team Providers Care Process Control Board Operator Name Role Phone MAGED MURDOCK Unavailable Unavailable LINDSEY AGUILAR (PA) Unavailable Unavail able MONICA YAN (PROCESS VALIDATION ENGINEER) Unavailable Unavailabl TEJAS Benavidez JR Unavailable Unavail [...] JR, TEJAS L Referring Unavailable VALONE JR, ETJAS L Primary Care Unavailable VALONE JR, TEJAS [...] VALONE JR, TEJAS L Primary Care Unavailable Valone MD, Tejas L Primary Care Provider MAGED CONTRERAS Attending Unavailable GINA RIDDLE Attending Unavailable [facility] Tejas MORA Primary [facility] Unavail able Hanane Jolly Attending U maite Jameson MD, Christian Singletary Attending Unavailable [facility] Primary [facility] Unavail able Gisell CHONG, Christian Singletary Attending Unavailable [facility] Unavail able Gisell CHONG, Christian Singletary Attending Unavailable [facility], [facility] Primary [facility]ail able [facility] Primary [facility] Unavail able Zahira CHONG, Pavel Carr Attending Unavailable [facility] Unavail able Zahira CHONG, Pavel Carr Attending Unavailable [facility] CHONG, Nicole Neri Referring Unavailabl e Allergies Allergy Classification Reported Allergen(s) Allergy Type [...] Auditory function testson Right Ear: Normal he aring Left Ear: Mild to moderate hearing loss above 4K Hz [facility] COMPLETE BLOOD COUNTon 04-24 Erythrocyte distribution width (RBC) [Ratio] 16.6 % High 11.5-15.0 [facility] Comment on above: Performed By: #### C KJ, AIRCRAFT SEAT UPHOLSTERER #### [facility] ([id number]) [address] [address] [place] [address] Hematocrit (Bld) [Volume fraction] 40.9 % Normal 35-47 [facility] Comment on above: Performed By: #### C KJ, AIRCRAFT SEAT UPHOLSTERER #### [facility] ([id number]) [address] [address] [place] [address] Hemoglobin (Bld) [Mass/Vol] 13.5 g/dL Normal 11.7-15.5 [facility] Comment on above: Performed By: #### C KJ, AIRCRAFT SEAT UPHOLSTERER #### [facility] ([id number]) [address], [address] [place] [address] MCH (RBC) [Entitic mass] 32.0 pg Normal 27-34 [facility] Comment on above: Performed By: #### C KJ, AIRCRAFT SEAT UPHOLSTERER #### [facility] ([id number]) [address], [address] [place] [address] MCHC (RBC) [Mass/Vol] 33.1 g/dL Normal 32-36 [facility] Comment on above: Performed By: #### C BC, AIRCRAFT SEAT UPHOLSTERER #### [facility] ([id number]) [address] [address] [place] [address] MCV (RBC) [Entitic vol] 97 fL Normal 80-100 [facility] Comment on above: Performed By: #### C BC, AIRCRAFT SEAT UPHOLSTERER #### [facility] ([id number]) [address] [address] [place] [address] Platelet mean volume (Bld) [Entitic vol] 8.8 fL Normal 7-12 [facility] Comment on above: Performed By: #### C KJ, AIRCRAFT SEAT UPHOLSTERER #### [facility] ([id number]) [address] [address] Platelets (Bld) [#/Vol] 328 10*3/uL Normal 150-450 [facility] Comment on above: Performed By: #### C KJ, AIRCRAFT SEAT UPHOLSTERER #### [facility] ([id number]) [address] [address] RBC COUNT 4.23 X10E12/L Normal 3.80-5.20 [facility] Comment on above: Performed By: #### Jacqueline UNDERWOOD, AIRCRAFT SEAT UPHOLSTERER #### [facility] ([id number]) [address] [address] WBC (Bld) [#/Vol] 9.0 10*3/uL Normal 4.0-11.0 [facility] Comment on above: Performed By: #### Jacqueline UNDERWOOD, AIRCRAFT SEAT UPHOLSTERER #### [facility] ([id number]) [address] [address] CREATININEon 04-24-2024 Creatinine [Mass/Vol] 0.72 mg/dL Normal 0.40-1.00 [facility] Comment on above: Result Comment: METH OD TRACEABLE TO IDMS STANDARD Performed By: #### C KJ, AIRCRAFT SEAT UPHOLSTERER #### [facility] ([id number]) [address] [address] eGFR (CKD-EPI) NON-RACE DEPENDENT >90 Normal >59 [facility] Comment on above: Result Comment: Reported eGFR is based on the CKD-EPI 2020 equation that does not use a race coefficient. Performed By: #### C KJ, AIRCRAFT SEAT UPHOLSTERER #### [facility] ([id number]) [address], [address] [place] [address] COMPLETE BLOOD COUNTon 04-11 Erythrocyte distribution width (RBC) [Ratio] 16.9 % High 11.5-15.0 [facility] Comment on above: Performed By: #### C BC, AIRCRAFT SEAT UPHOLSTERER #### [facility] ([id number]) [address], [address] [place] [address] Hematocrit (Bld) [Volume fraction] 41.0 % Normal 35-47 [facility] Comment on above: Performed By: #### C KJ, AIRCRAFT SEAT UPHOLSTERER #### [facility] ([id number]) [address], [address] [place] [address] Hemoglobin (Bld) [Mass/Vol] 13.8 g/dL Normal 11.7-15.5 [facility] Comment on above: Performed By: #### C KJ, AIRCRAFT SEAT UPHOLSTERER #### [facility] ([id number]) [address], [address] [place] [address] MCH (RBC) [Entitic mass] 32.3 pg Normal 27-34 [facility] Comment on above: Performed By: #### C KJ, AIRCRAFT SEAT UPHOLSTERER #### [facility] ([id number]) [address], [address] [place] [address] MCHC (RBC) [Mass/Vol] 33.5 g/dL Normal 32-36 [facility] Comment on above: Performed By: #### C BC, AIRCRAFT SEAT UPHOLSTERER #### [facility] ([id number]) [address], [address] [place] [address] MCV (RBC) [Entitic vol] 96 fL Normal 80-100 [facility] Comment on above: Performed By: #### C BC, AIRCRAFT SEAT UPHOLSTERER #### [facility] ([id number]) [address], [address] [place] [address] Platelet mean volume (Bld) [Entitic vol] 9.1 fL Normal 7-12 [facility] Comment on above: Performed By: #### C KJ, AIRCRAFT SEAT UPHOLSTERER #### [facility] ([id number]) [address] [address] Platelets (Bld) [#/Vol] 291 10*3/uL Normal 150-450 [facility] Comment on above: Performed By: #### C KJ, AIRCRAFT SEAT UPHOLSTERER #### [facility] ([id number]) [address] [address] RBC COUNT 4.27 X10E12/L Normal 3.80-5.20 [facility] Comment on above: Performed By: #### C KJ, AIRCRAFT SEAT UPHOLSTERER #### [facility] ([id number]) [address] [address] WBC (Bld) [#/Vol] 8.9 10*3/uL Normal 4.0-11.0 [facility] Comment on above: Performed By: #### C KJ, AIRCRAFT SEAT UPHOLSTERER #### [facility] ([id number]) [address] [address] CREATININEon 04-11-2024 Creatinine [Mass/Vol] 0.73 mg/dL Normal 0.40-1.00 [facility] Comment on above: Result Comment: METH OD TRACEABLE TO IDMS STANDARD Performed By: #### C KJ, AIRCRAFT SEAT UPHOLSTERER #### [facility] ([id number]) [address] [address] eGFR (CKD-EPI) NON-RACE DEPENDENT >90 Normal >59 [facility] Comment on above: Result Comment: Reported eGFR is based on the CKD-EPI 2020 equation that does not use a race coefficient. Performed By: #### C KJ, AIRCRAFT SEAT UPHOLSTERER #### [facility] ([id number]) [address] [address] ASPIRATE CULTUREon Bacteria identified Aer cx Nom [...] <=1 F PIPERACIL/TAZOBACTAM S <=4 F Susceptible [facility] Comment on above: Performed By: #### 5 97-5 #### [facility] ([id number]) [address] [address] [place] [address] COMPLETE BLOOD COUNTon 04-04 Erythrocyte distribution width (RBC) [Ratio] 16.6 % High 11.5-15.0 [facility] Comment on above: Performed By: #### Jacqueline ARAUJO [facility], 1988-09, 72203-6 #### [facility] ([id number]) [address] [address] [place] [address] Hematocrit (Bld) [Volume fraction] 37.5 % Normal 35-47 [facility] Comment on above: Performed By: #### Jacqueline ARAUJO CMP, 1988-09, 30502-4 #### [facility] ([id number]) [address] [address] [place] [address] Hemoglobin (Bld) [Mass/Vol] 12.7 g/dL Normal 11.7-15.5 [facility] Comment on above: Performed By: #### Jacqueline ARAUJO CMP, 1988-09, 13218-9 #### [facility] ([id number]) [address] [address] [place] [address] MCH (RBC) [Entitic mass] 31.6 pg Normal 27-34 [facility] Comment on above: Performed By: #### Jacqueline ARAUJO CMP, 1988-09, 71232-3 #### [facility] ([id number]) [address] [place] [address] MCHC (RBC) [Mass/Vol] 33.8 g/dL Normal 32-36 [facility] Comment on above: Performed By: #### Jacqueline ARAUJO CMP, 1988-09, 71648-0 #### [facility] ([id number]) [address] [place] [address] MCV (RBC) [Entitic vol] 94 fL Normal 80-100 [facility] Comment on above: Performed By: #### Jacqueline ARAUJO CMP, 1988-09, 40894-1 #### [facility] ([id number]) [address] [place] [address] Platelet mean volume (Bld) [Entitic vol] 8.9 fL Normal 7-12 [facility] Comment on above: Performed By: #### Jacqueline ARAUJO CMP, 1988-09, 81151-9 #### [facility] ([id number]) [address] [place] [address] Platelets (Bld) [#/Vol] 230 10*3/uL Normal 150-450 [facility] Comment on above: Performed By: #### Jacqueline ARAUJO CMP, 1988-09, 18048-0 #### [facility] ([id number]) [address] [place] [address] RBC COUNT 4.01 X10E12/L Normal 3.80-5.20 [facility] Comment on above: Performed By: #### Jacqueline ARAUJO CMP, 1988-09, 66170-9 #### [facility] ([id number]) [address] [place] [address] WBC (Bld) [#/Vol] 9.1 10*3/uL Normal 4.0-11.0 [facility] Comment on above: Performed By: #### Jacqueline ARAUJO CMP, 1988-09, 30812-4 #### [facility] ([id number]) [address] [address] [place] [address] CREATININEon 04-04-2024 Creatinine [Mass/Vol] 0.60 mg/dL Normal 0.40-1.00 [facility] Comment on above: Result Comment: METH OD TRACEABLE TO IDMS STANDARD Performed By: #### C VAN [facility], 1988-09, 06035-1 #### [facility] ([id number]) [address], [facility] [address] [place] [address] eGFR (CKD-EPI) NON-RACE DEPENDENT >90 Normal >59 [facility] Comment on above: Result Comment: Reported eGFR is based on the CKD-EPI 2020 equation that does not use a race coefficient. Performed By: #### C ARANZA ARAUJO, 55820-1 #### [facility] ([id number]) [address], [address] [address] COMPLETE BLOOD COUNTon 03-27 Erythrocyte distribution width (RBC) [Ratio] 17.2 % High 11.5-15.0 [facility] Comment on above: Performed By: #### C ARANZA ARAUJO, 61048-0 #### [facility] ([id number]) [address] [address] Hematocrit (Bld) [Volume fraction] 40.0 % Normal 35-47 [facility] Comment on above: Performed By: #### C ARANZA ARAUJO, 49533-4 #### [facility] ([id number]) [address] [address] Hemoglobin (Bld) [Mass/Vol] 13.5 g/dL Normal 11.7-15.5 [facility] Comment on above: Performed By: #### C ARANZA ARAUJO, 62709-5 #### [facility] ([id number]) [address] [place] [address] MCH (RBC) [Entitic mass] 31.7 pg Normal 27-34 [facility] Comment on above: Performed By: #### Jacqueline ARAUJO CMP, 1988-09, 36152-0 #### [facility] ([id number]) [address] [place] [address] MCHC (RBC) [Mass/Vol] 33.7 g/dL Normal 32-36 [facility] Comment on above: Performed By: #### Jacqueline ARAUJO CMP, 1988-09, 71338-5 #### [facility] ([id number]) [address] [address] [place] [address] MCV (RBC) [Entitic vol] 94 fL Normal 80-100 [facility] Comment on above: Performed By: #### Jacqueline ARAUJO CMP, 1988-09, 88450-7 #### [facility] ([id number]) [address] [address] [place] [address] Platelet mean volume (Bld) [Entitic vol] 8.5 fL Normal 7-12 [facility] Comment on above: Performed By: #### Jacqueline ARAUJO CMP, 1988-09, 10769-5 #### [facility] ([id number]) [address] [place] [address] Platelets (Bld) [#/Vol] 332 10*3/uL Normal 150-450 [facility] Comment on above: Performed By: #### Jacqueline ARUAJO CMP, 1988-09, 15355-7 #### [facility] ([id number]) [address] [address] [place] [address] RBC COUNT 4.26 X10E12/L Normal 3.80-5.20 [facility] Comment on above: Performed By: #### Jacqueline ARAUJO CMP, 1988-09, 61617-4 #### [facility] ([id number]) [address] [place] [address] WBC (Bld) [#/Vol] 10.4 10*3/uL Normal 4.0-11.0 [facility] Comment on above: Performed By: #### C ARANZA ARAUJO, 1988-09, 76815-2 #### [facility] ([id number]) [address] [place] [address] CREATININEon 03-27-2024 Creatinine [Mass/Vol] 0.69 mg/dL Normal 0.40-1.00 [facility] Comment on above: Result Comment: METH OD TRACEABLE TO IDMS STANDARD Performed By: #### C ARANZA ARAUJO, 1988-09, 68714-2 #### [facility] ([id number]) [address], [address] [address] eGFR (CKD-EPI) NON-RACE DEPENDENT >90 Normal >59 [facility] Comment on above: Result Comment: Reported eGFR is based on the CKD-EPI 2020 equation that does not use a race coefficient. Performed By: #### C ARANZA ARAUJO, 1988-09, 39623-8 #### [facility] ([id number]) [address] [address] COMPLETE BLOOD COUNTon 03-20 Erythrocyte distribution width (RBC) [Ratio] 19.0 % High 11.5-15.0 [facility] Comment on above: Performed By: #### C BC, AIRCRAFT SEAT UPHOLSTERER #### [facility] ([id number]) [address], [facility] [address] [place] [address] Hematocrit (Bld) [Volume fraction] 37.9 % Normal 35-47 [facility] Comment on above: Performed By: #### C KJ, AIRCRAFT SEAT UPHOLSTERER #### [facility] ([id number]) [address], [facility] [address] [place] [address] Hemoglobin (Bld) [Mass/Vol] 12.6 g/dL Normal 11.7-15.5 [facility] Comment on above: Performed By: #### C KJ, AIRCRAFT SEAT UPHOLSTERER #### [facility] ([id number]) [address] [place] [address] MCH (RBC) [Entitic mass] 31.8 pg Normal 27-34 [facility] Comment on above: Performed By: #### C KJ, AIRCRAFT SEAT UPHOLSTERER #### [facility] ([id number]) [address] [place] [address] MCHC (RBC) [Mass/Vol] 33.2 g/dL Normal 32-36 [facility] Comment on above: Performed By: #### Jacqueline UNDERWOOD, AIRCRAFT SEAT UPHOLSTERER #### [facility] ([id number]) [address] [place] [address] MCV (RBC) [Entitic vol] 96 fL Normal 80-100 [facility] Comment on above: Performed By: #### Jacqueline UNDERWOOD, AIRCRAFT SEAT UPHOLSTERER #### [facility] ([id number]) [address] [place] [address] Platelet mean volume (Bld) [Entitic vol] 8.4 fL Normal 7-12 [facility] Comment on above: Performed By: #### Jacqueline UNDERWOOD, AIRCRAFT SEAT UPHOLSTERER #### [facility] ([id number]) [address] [place] [address] Platelets (Bld) [#/Vol] 343 10*3/uL Normal 150-450 [facility] Comment on above: Performed By: #### C KJ, AIRCRAFT SEAT UPHOLSTERER #### [facility] ([id number]) [address], [address] [place] [address] RBC COUNT 3.95 X10E12/L Normal 3.80-5.20 [facility] Comment on above: Performed By: #### Jacqueline UNDERWOOD, AIRCRAFT SEAT UPHOLSTERER #### [facility] ([id number]) [address] [address] [place] [address] WBC (Bld) [#/Vol] 7.6 10*3/uL Normal 4.0-11.0 [facility] Comment on above: Performed By: #### C KJ, AIRCRAFT SEAT UPHOLSTERER #### [facility] ([id number]) [address] [address] CREATININEon 03-20-2024 Creatinine [Mass/Vol] 0.70 mg/dL Normal 0.40-1.00 [facility] Comment on above: Result Comment: METH OD TRACEABLE TO IDMS STANDARD Performed By: #### C KJ, AIRCRAFT SEAT UPHOLSTERER #### [facility] ([id number]) [address] [address] eGFR (CKD-EPI) NON-RACE DEPENDENT >90 Normal >59 [facility] Comment on above: Result Comment: Reported eGFR is based on the CKD-EPI 2020 equation that does not use a race coefficient. Performed By: #### C KJ, AIRCRAFT SEAT UPHOLSTERER #### [facility] ([id number]) [address] [address] CBC AND AUTO DIFFon 03-16-20 24 ABSOLUTE BASOPHIL 0.0 X10E9/L Normal 0.0-0.2 [facility] Comment on above: Performed By: #### C ARANZA ARAUJO, 1988-09 #### [facility] ([id number]) [address] [address] ABSOLUTE NEUTROPHIL 5.5 X10E9/L Normal 1.5-6.6 [facility] Comment on above: Performed By: #### Jacqueline ARAUJO CMP, 1988-09 #### [facility] ([id number]) [address] [address] Basophils/100 WBC (Bld) 0.4 % Normal [facility] Comment on above: Performed By: #### Jacqueline ARAUJO CMP, 1988-09 #### [facility] ([id number]) [address], [facility] [address] [place] [address] Eosinophils (Bld) [#/Vol] 0.1 10*3/uL Normal 0.0-0.4 [facility] Comment on above: Performed By: #### Jacqueline ARAUJO [facility], 1988-09 #### [facility] ([id number]) [address], [facility] [address] [place] [address] Eosinophils/100 WBC (Bld) 1.9 % Normal [facility] Comment on above: Performed By: #### Jacqueline ARAUJO [facility], 1988-09 #### [facility] ([id number]) [address], [facility] [address] [place] [address] Erythrocyte distribution width (RBC) [Ratio] 18.1 % High 11.5-15.0 [facility] Comment on above: Performed By: #### Jacqueline ARAUJO [facility], 1987-09 #### [facility] ([id number]) [address] [address] [place] [address] Hematocrit (Bld) [Volume fraction] 39.2 % Normal 35-47 [facility] Comment on above: Performed By: #### Jacqueline ARAUJO [facility], 1987-09 #### [facility] ([id number]) [address] [address] [place] [address] Hemoglobin (Bld) [Mass/Vol] 13.4 g/dL Normal 11.7-15.5 [facility] Comment on above: Performed By: #### Jacqueline ARAUJO [facility], 1988-09 #### [facility] ([id number]) [address] [address] [place] [address] Lymphocytes (Bld) [#/Vol] 1.7 10*3/uL Normal 1.0-3.5 [facility] Comment on above: Performed By: #### Jacqueline ARAUJO CMP, 1987-09 #### [facility] ([id number]) [address] [address] [place] [address] Lymphocytes/100 WBC (Bld) 22.1 % Normal [facility] Comment on above: Performed By: #### Jacqueline ARAUJO CMP, 1987-09 #### [facility] ([id number]) [address] [place] [address] MCH (RBC) [Entitic mass] 32.2 pg Normal 27-34 [facility] Comment on above: Performed By: #### Jacqueline ARAUJO CMP, 1987-09 #### [facility] ([id number]) [address] [place] [address] MCHC (RBC) [Mass/Vol] 34.2 g/dL Normal 32-36 [facility] Comment on above: Performed By: #### Jacqueline ARAUJO CMP, 1987-09 #### [facility] ([id number]) [address] [place] [address] MCV (RBC) [Entitic vol] 94 fL Normal 80-100 [facility] Comment on above: Performed By: #### Jacqueline ARAUJO CMP, 1987-09 #### [facility] ([id number]) [address] [place] [address] Monocytes (Bld) [#/Vol] 0.5 10*3/uL Normal 0-0.9 [facility] Comment on above: Performed By: #### Jacqueline ARAUJO CMP, 1987-09 #### [facility] ([id number]) [address] [address] [place] [address] Monocytes/100 WBC (Bld) 6.5 % Normal [facility] Comment on above: Performed By: #### Jacqueline ARAUJO CMP, 1987-09 #### [facility] ([id number]) [address] [address] [place] [address] Neutrophils/100 WBC (Bld) 69.1 % Normal [facility] Comment on above: Performed By: #### Jacqueline ARAUJO CMP, 1987-09 #### [facility] ([id number]) [address] [place] [address] Platelet mean volume (Bld) [Entitic vol] 8.1 fL Normal 7-12 [facility] Comment on above: Performed By: #### Jacqueline ARAUJO CMP, 1987-09 #### [facility] ([id number]) [address], [facility] [address] [place] [address] Platelets (Bld) [#/Vol] 358 10*3/uL Normal 150-450 [facility] Comment on above: Performed By: #### Jacqueline ARAUJO CMP, 1987-09 #### [facility] ([id number]) [address], [facility] [address] [place] [address] RBC COUNT 4.17 X10E12/L Normal 3.80-5.20 [facility] Comment on above: Performed By: #### Jacqueline ARAUJO CMP, 1987-09 #### [facility] ([id number]) [address], [facility] [address] [place] [address] WBC (Bld) [#/Vol] 7.9 10*3/uL Normal 4.0-11.0 [facility] Comment on above: Performed By: #### Jacqueline ARAUJO CMP, 1987-09 #### [facility] ([id number]) [address], [facility] [address] [place] [address] COMPREHENSIVE METABOLIC PANE Alexandru 03-16-2024 Albumin [Mass/Vol] 3.4 g/dL Normal 3.2-5.3 [facility] Comment on above: Performed By: #### Jacqueline ARAUJO CMP, 1987-09 #### [facility] ([id number]) [address], [address] [place] [address] ALP [Catalytic activity/Vol] 52 U/L Normal 39-130 [facility] Comment on above: Performed By: #### C ARANZA ARAUJO, 1988-09 #### [facility] ([id number]) [address], [address] [place] [address] ALT [Catalytic activity/Vol] 12 U/L Normal 0-31 [facility] Comment on above: Performed By: #### C VAN [facility], 1987-09 #### [facility] ([id number]) [address] [place] [address] Anion gap [Moles/Vol] 11 mmol/L Normal 5-15 [facility] Comment on above: Performed By: #### Jacqueline ARAUJO CMP, 1987-09 #### [facility] ([id number]) [address] [place] [address] AST [Catalytic activity/Vol] 17 U/L Normal 0-41 [facility] Comment on above: Performed By: #### Jacqueline ARAUJO [facility], 1987-09 #### [facility] ([id number]) [address] [place] [address] Bilirubin [Mass/Vol] 0.4 mg/dL Normal 0.3-1.2 [facility] Comment on above: Performed By: #### Jacqueline ARAUJO [facility], 1987-09 #### [facility] ([id number]) [address] [place] [address] Calcium [Mass/Vol] 9.7 mg/dL Normal 8.5-10.5 [facility] Comment on above: Performed By: #### C [facility], 1987-09 #### [facility] ([id number]) [address] [place] [address] Chloride [Moles/Vol] 109 mmol/L Normal 98-109 [facility] Comment on above: Performed By: #### Jacqueline ARAUJO CMP, 1987-09 #### [facility] ([id number]) [address] [place] [address] CO2 [Moles/Vol] 20 mmol/L Low 22-32 [facility] Comment on above: Performed By: #### Jacqueline ARAUJO CMP, 1987-09 #### [facility] ([id number]) [address] [address] [place] [address] Creatinine [Mass/Vol] 0.75 mg/dL Normal 0.40-1.00 [facility] Comment on above: Result Comment: METH OD TRACEABLE TO IDMS STANDARD Performed By: #### Jacqueline ARAUJO CMP, 1987-09 #### [facility] ([id number]) [address] [address] eGFR (CKD-EPI) NON-RACE DEPENDENT >90 Normal >59 [facility] Comment on above: Result Comment: Reported eGFR is based on the CKD-EPI 2020 equation that does not use a race coefficient. Performed By: #### Jacqueline ARAUJO CMP, 1987-09 #### [facility] ([id number]) [address] [address] Glucose [Mass/Vol] 88 mg/dL Normal 65-99 [facility] Comment on above: Performed By: #### Jacqueline ARAUJO [facility], 1987-09 #### [facility] ([id number]) [address] [address] [place] [address] Potassium [Moles/Vol] 3.9 mmol/L Normal 3.5-5.0 [facility] Comment on above: Performed By: #### Jacqueline ARAUJO CMP, 1987-09 #### [facility] ([id number]) [address] [address] [place] [address] Protein [Mass/Vol] 6.4 g/dL Normal 6.0-8.0 [facility] Comment on above: Performed By: #### Jacqueline ARAUJO CMP, 1987-09 #### [facility] ([id number]) [address] [place] [address] Sodium [Moles/Vol] 140 mmol/L Normal 134-146 [facility] Comment on above: Performed By: #### Jacqueline ARAUJO CMP, 1987-09 #### [facility] ([id number]) [address] [place] [address] Urea nitrogen [Mass/Vol] 9 mg/dL Normal 5-23 [facility] Comment on above: Performed By: #### Jacqueline ARAUJO CMP, 1987-09 #### [facility] ([id number]) [address] [place] [address] CRP [Mass/Vol]on 03-16-2024 C REACTIVE PROTEIN 0.6 mg/dL Normal 0.000-0.744 [facility] Comment on above: Performed By: #### Jacqueline ARAUJO CMP, 1987-09 #### [facility] ([id number]) [address] [place] [address] BLOOD CULTUREon 03-13-2024 Bacteria identified Aer cx Nom (Bld) CULTURE RESULTS NO GROWTH 5 DAYS Normal [facility] Bacteria identified Aer cx Nom (Bld) CULTURE RESULTS NO GROWTH 5 DAYS Normal [facility] CBC AND AUTO DIFFon 03-13-20 24 ABSOLUTE BASOPHIL 0.0 X10E9/L Normal 0.0-0.2 [facility] Comment on above: Performed By: #### Jacqueline ARAUJO CMP, 1987-09, 45006-9 #### [facility] ([id number]) [address] [place] [address] ABSOLUTE NEUTROPHIL 5.4 X10E9/L Normal 1.5-6.6 [facility] Comment on above: Performed By: #### Jacqueline ARAUJO CMP, 1987-09, 21987-2 #### [facility] ([id number]) [address] [place] [address] Basophils/100 WBC (Bld) 0.4 % Normal [facility] Comment on above: Performed By: #### Jacqueline ARAUJO [facility], 1987-09, 42549-3 #### [facility] ([id number]) [address] [place] [address] Eosinophils (Bld) [#/Vol] 0.1 10*3/uL Normal 0.0-0.4 [facility] Comment on above: Performed By: #### Jacqueline ARAUJO [facility], 1987-09, 44219-6 #### [facility] ([id number]) [address], [facility] [address] [place] [address] Eosinophils/100 WBC (Bld) 1.6 % Normal [facility] Comment on above: Performed By: #### Jacqueline ARAUJO [facility], 1987-09, 88663-6 #### [facility] ([id number]) [address] [place] [address] Erythrocyte distribution width (RBC) [Ratio] 18.4 % High 11.5-15.0 [facility] Comment on above: Performed By: #### Jacqueline ARAUJO [facility], 12783-1 #### [facility] ([id number]) [address] [place] [address] Hematocrit (Bld) [Volume fraction] 39.0 % Normal 35-47 [facility] Comment on above: Performed By: #### Jacqueline ARAUJO [facility], 00383-1 #### [facility] ([id number]) [address] [place] [address] Hemoglobin (Bld) [Mass/Vol] 13.7 g/dL Normal 11.7-15.5 [facility] Comment on above: Performed By: #### Jacqueline ARAUJO CMP, 1987-09, 18372-6 #### [facility] ([id number]) [address] [place] [address] Lymphocytes (Bld) [#/Vol] 1.9 10*3/uL Normal 1.0-3.5 [facility] Comment on above: Performed By: #### Jacqueline ARAUJO [facility], 1987-09, 65922-5 #### [facility] ([id number]) [address], [address] [place] [address] Lymphocytes/100 WBC (Bld) 24.0 % Normal [facility] Comment on above: Performed By: #### Jacqueline ARAUJO [facility], 1987-09, 25344-2 #### [facility] ([id number]) [address], [facility] [address] [place] [address] MCH (RBC) [Entitic mass] 32.5 pg Normal 27-34 [facility] Comment on above: Performed By: #### Jacqueline ARAUJO [facility], 1987-09, 33553-2 #### [facility] ([id number]) [address] [place] [address] MCHC (RBC) [Mass/Vol] 35.0 g/dL Normal 32-36 [facility] Comment on above: Performed By: #### Jacqueline ARAUJO [facility], 1987-09, 14478-6 #### [facility] ([id number]) [address] [place] [address] MCV (RBC) [Entitic vol] 93 fL Normal 80-100 [facility] Comment on above: Performed By: #### Jacqueline ARAUJO [facility], 1987-09, 22139-4 #### [facility] ([id number]) [address] [place] [address] Monocytes (Bld) [#/Vol] 0.4 10*3/uL Normal 0-0.9 [facility] Comment on above: Performed By: #### Jacqueline ARAUJO [facility], 1987-09, 47896-6 #### [facility] ([id number]) [address] [place] [address] Monocytes/100 WBC (Bld) 4.7 % Normal [facility] Comment on above: Performed By: #### Jacqueline ARAUJO [facility], 1987-09, 73915-0 #### [facility] ([id number]) [address], [facility] [address] [place] [address] Neutrophils/100 WBC (Bld) 69.3 % Normal [facility] Comment on above: Performed By: #### Jacqueline ARAUJO [facility], 1987-09, 05569-2 #### [facility] ([id number]) [address], [facility] [address] [place] [address] Platelet mean volume (Bld) [Entitic vol] 7.9 fL Normal 7-12 [facility] Comment on above: Performed By: #### Jacqueline ARAUJO [facility], 1987-09, 78987-3 #### [facility] ([id number]) [address] [place] [address] Platelets (Bld) [#/Vol] 376 10*3/uL Normal 150-450 [facility] Comment on above: Performed By: #### Jacqueline ARAUJO [facility], 1987-09, 67365-3 #### [facility] ([id number]) [address], [facility] [address] [place] [address] RBC COUNT 4.20 X10E12/L Normal 3.80-5.20 [facility] Comment on above: Performed By: #### Jacqueline ARAUJO [facility], 1987-09, 38280-1 #### [facility] ([id number]) [address], [facility] [address] [place] [address] WBC (Bld) [#/Vol] 7.8 10*3/uL Normal 4.0-11.0 [facility] Comment on above: Performed By: #### Jacqueline ARAUJO CMP, 1987-09, 23834-8 #### [facility] ([id number]) [address] [place] [address] COMPREHENSIVE METABOLIC PANE Alexandru 03-13-2024 Albumin [Mass/Vol] 3.4 g/dL Normal 3.2-5.3 [facility] Comment on above: Performed By: #### C BCA, CMP, 1987-09, 75739-3 #### [facility] ([id number]) [address] [place] [address] ALP [Catalytic activity/Vol] 57 U/L Normal 39-130 [facility] Comment on above: Performed By: #### C BCA, CMP, 1987-09, 84875-0 #### [facility] ([id number]) [address] [place] [address] ALT [Catalytic activity/Vol] 14 U/L Normal 0-31 [facility] Comment on above: Performed By: #### C BCA, CMP, 1987-09, 38122-8 #### [facility] ([id number]) [address], [address] [place] [address] Anion gap [Moles/Vol] 8 mmol/L Normal 5-15 [facility] Comment on above: Performed By: #### C BCA, CMP, 1987-09, 19303-6 #### [facility] ([id number]) [address] [place] [address] AST [Catalytic activity/Vol] 19 U/L Normal 0-41 [facility] Comment on above: Performed By: #### C BCA, CMP, 1987-09, 87914-4 #### [facility] ([id number]) [address], [address] [place] [address] Bilirubin [Mass/Vol] 0.4 mg/dL Normal 0.3-1.2 [facility] Comment on above: Performed By: #### C BCA, CMP, 1987-09, 10037-7 #### [facility] ([id number]) [address] [place] [address] Calcium [Mass/Vol] 9.3 mg/dL Normal 8.5-10.5 [facility] Comment on above: Performed By: #### C ARANZA ARAUJO, 1987-09, 79433-4 #### [facility] ([id number]) [address] [place] [address] Chloride [Moles/Vol] 105 mmol/L Normal 98-109 [facility] Comment on above: Performed By: #### C [facility]AN [facility], 1987-09, 82391-4 #### [facility] ([id number]) [address] [place] [address] CO2 [Moles/Vol] 28 mmol/L Normal 22-32 [facility] Comment on above: Performed By: #### Jacqueline ARAUJO CMP, 1987-09, 91450-1 #### [facility] ([id number]) [address] [place] [address] Creatinine [Mass/Vol] 0.82 mg/dL Normal 0.40-1.00 [facility] Comment on above: Result Comment: METH OD TRACEABLE TO IDMS STANDARD Performed By: #### Jacqueline ARAUJO CMP, 1987-09, 34429-3 #### [facility] ([id number]) [address] [place] [address] GFR/1.73 sq M.predicted among non-blacks MDRD (S/P/Bld) [Vol rate/Area] 84 mL/min/{1.73_m2} Normal >59 [facility] Comment on above: Result Comment: Reported eGFR is based on the CKD-EPI 2020 equation that does not use a race coefficient. Performed By: #### Jacqueline ARAUJO CMP, 1987-09, 32615-8 #### [facility] ([id number]) [address] [place] [address] Glucose [Mass/Vol] 97 mg/dL Normal 65-99 [facility] Comment on above: Performed By: #### C VAN [facility], 1987-09, 08148-0 #### [facility] ([id number]) [address] [place] [address] Potassium [Moles/Vol] 3.1 mmol/L Low 3.5-5.0 [facility] Comment on above: Performed By: #### C VAN [facility], 1987-09, 62266-8 #### [facility] ([id number]) [address] [place] [address] Protein [Mass/Vol] 6.3 g/dL Normal 6.0-8.0 [facility] Comment on above: Performed By: #### Jacqueline ARAUJO [facility], 24746-5 #### [facility] ([id number]) [address] [place] [address] Sodium [Moles/Vol] 141 mmol/L Normal 134-146 [facility] Comment on above: Performed By: #### Jacqueline ARAUJO [facility], 15476-3 #### [facility] ([id number]) [address] [place] [address] Urea nitrogen [Mass/Vol] 8 mg/dL Normal 5-23 [facility] Comment on above: Performed By: #### Jacqueline ARAUJO [facility], 81499-1 #### [facility] ([id number]) [address] [place] [address] CRP [Mass/Vol]on 03-13-2024 C REACTIVE PROTEIN 0.7 mg/dL Normal 0.000-0.744 [facility] Comment on above: Performed By: #### C [facility], 14767-5 #### [facility] ([id number]) [address] [place] [address] ESR Photometric method (Bld) [Velocity]on 03-13-2024 ESR, ERYTHROCYTE SEDIMENTATION RATE 39 mm/h High 0-30 [facility] Comment on above: Performed By: #### C BCA, [facility], 1988-5, 57176-3 #### [facility] ([id number]) [address] [place] [address] ASPIRATE CULTUREon Bacteria identified Aer cx Nom [...] <=1 F PIPERACIL/TAZOBACTAM S <=4 F Susceptible [facility] Comment on above: Performed By: #### 5 97-5 #### [facility] ([id number]) [address] AND DIFFon 2023 BODY FLUID COMMENT Interpreta tion--- ----- Normal [facility] Comment on above: Result Comment: Refe rence values for this fluid type are undefined, as fluid accumulation is considered abnormal. Performed By: #### B FCT #### [facility] ([id number]) [address] [place] [address] FLUID CLARITY CLOUDY Normal [facility] Comment on above: Performed By: #### B FCT #### [facility] ([id number]) [address] [place] [address] FLUID COLOR HONG Normal [facility] Comment on above: Performed By: #### B FCT #### [facility] ([id number]) [address] [place] [address] FLUID LYMPHOCYTE 5 % Normal [facility] Comment on above: Performed By: #### B FCT #### [facility] ([id number]) [address] [place] [address] FLUID NEUTROPHILS 75 % Normal [facility] Comment on above: Performed By: #### B FCT #### [facility] ([id number]) [address] [place] [address] [place] [address] /uL Normal [facility] Comment on above: Performed By: #### B FCT #### [facility] ([id number]) [address] [place] [address] FLUID SPECIMEN TYPE ASPIRATE Normal [facility] Comment on above: Result Comment: ABDO MISAEL PUMP POCKET Performed By: #### B FCT #### [facility] ([id number]) [address] [place] [address] MACROPHAGES 20 % Normal [facility] Comment on above: Performed By: #### B FCT #### [facility] ([id number]) [address] [place] [address] 4888 /uL Normal [facility] Comment on above: Performed By: #### B FCT #### [facility] ([id number]) [address] [place] [address] Infectious Disease Office/ in Noteon 11-10-2023 Infectious Disease Office/Clinic Note Assessment/Plan 1. Postoperative wound infection Plan: Unfortunately there is no other good oral options for coverage of Pseudomonas. She is advised to stop taking doxycycline as this will help her symptoms. I did call Dr. Montes his PA Hammad called back. She advised me to send patient back to [place]. This is where she had her surgery done. She may need to MRI possible washout. This designer/writer did call [place] talk to charge nurse Dagmar gave her [...] and fusion by Dr. Saint Gregory at [facility]. She was discharged home on the . She was discharged on cephalexin for 10 days. She was taken back to surgery on October 11 due to persistent drainage and wound dehiscence. She had a fluid collection which was most consistent with seroma/infection . The surgery [place] done [place]. Cultures grew Pseudomonas and she was discharged [...] data Procedure/Surgical History Neck Surgery Stomach Pain [place] [facility] (09/02/2023) incision & drainage (10/12/2023) Medications cyclobenzaprine 10 mg oral tablet, 45 EA, 0 Refill(s), TAKE 1 TABLET BY MOUTH THREE TIMES DAILY NEEDED FOR MUSCLE SPASMS DULoxetine 60 mg oral delayed release capsule, 90 EA, 0 Refill(s), TAKE 1 CAPSULE BY MOUTH EVERY DAY ibuprofen 800 mg oral tablet, 270 EA, 0 Refill(s) Potassium Chloride ( (more content not included)... Normal [facility] .eGFRon 10-26-2023 GFR/1.73 sq M.predicted MDRD (S/P/Bld) [Vol rate/Area] mL/min/{1.73_m2} Normal >=60 [facility] Comment on above: Order Comment: Order added by Discern rule Result Comment: [facility] have implemented the eGFR calculation [...] years Performed By: #### E GFR #### [address] [address] Basic Metabolic Profileon Anion gap [Moles/Vol] 10 mmol/L Normal -12 [facility] Comment on above: Performed By: #### C [id number] #### [address] [address] Calcium [Mass/Vol] 9.4 mg/dL Normal 8.5-10.3 [facility] Comment on above: Performed By: #### C [id number] #### [address] [address] Chloride [Moles/Vol] 101 mmol/L Normal 98-110 [facility] Comment on above: Performed By: #### C [id number] #### [address] [address] CO2 [Moles/Vol] 26 mmol/L Normal 22-32 [facility] Comment on above: Performed By: #### C [id number] #### [address] [address] Creatinine [Mass/Vol] 0.81 mg/dL Normal 0.44-1.03 [facility] Comment on above: Performed By: #### C [id number] #### [address] [address] Glucose [Mass/Vol] 82 mg/dL Normal 70-99 [facility] Comment on above: Performed By: #### C [id number] #### [address] [address] Potassium [Moles/Vol] 2.7 mmol/L Low 3.4-4.8 [facility] Comment on above: Performed By: #### C [id number] #### [address] [address] Sodium [Moles/Vol] 137 mmol/L Normal 133-142 [facility] Comment on above: Performed By: #### C [id number] #### [address] [address] Urea nitrogen [Mass/Vol] 15 mg/dL Normal 8-26 [facility] Comment on above: Performed By: #### C [id number] #### [address] [address] Urea nitrogen/Creatinin e [Mass ratio] 18.5 mg/mg Normal 10.0-20.0 [facility] Comment on above: Performed By: #### C [id number] #### [address] [address] CBC w/ Diffon 10-26-2023 Erythrocyte distribution width (RBC) [Ratio] 15.2 % High 11.6-14.8 [facility] Comment on above: Performed By: #### C BC #### [address] [address] Hematocrit (Bld) [Volume fraction] 38.9 % Normal 36.0-46.0 [facility] Comment on above: Performed By: #### C BC #### [address] [address] Hemoglobin (Bld) [Mass/Vol] 12.9 g/dL Normal 12.0-16.0 [facility] Comment on above: Performed By: #### C BC #### [address] [address] MCH (RBC) [Entitic mass] 31.5 pg Normal 27.0-35.0 [facility] Comment on above: Performed By: #### C BC #### [address] [address] MCHC 33.1 % Normal 31.0-37.0 [facility] Comment on above: Performed By: #### C BC #### [address] [address] MCV (RBC) [Entitic vol] 95.0 fL Normal 80.0-100.0 [facility] Comment on above: Performed By: #### C BC #### [address] [address] Platelet 367 x10*3/mcL Normal 150-450 [facility] Comment on above: Performed By: #### C BC #### [address] [address] Platelet mean volume (Bld) [Entitic vol] 7.7 fL Normal 6.7-10.6 [facility] Comment on above: Performed By: #### C BC #### [address] [address] RBC 4.10 x10*6/mcL Normal 3.80-5.20 [facility] Comment on above: Performed By: #### C BC #### [address] [address] WBC 12.3 x10*3/mcL High 4.5-11.0 [facility] Comment on above: Performed By: #### C BC #### [address] [address] CRPon 10-26-2023 CRP 2.71 mg/dL High 0.00-0.75 [facility] Comment on above: Result Comment: CRP measurement is useful for assessment of non-specific INFLAMMATORY RESPONSE to infection or injury AND is a sensitive MARKER of ACUTE INFLAMMATION including CARDIAC RISK ASSESSMENT. CARDIAC patients with elevated CRP are POTENTIALLY at a HIGHER RISK OF FUTURE CARDIAC EVENTS. Performed By: #### C RP #### [address] [address] Diff Autoon 10-26-2023 Baso Absolute 0.1 x10*3/mcL Normal 0.0-0.2 [facility] Comment on above: Performed By: #### . Automated Diff #### [address] [address] Basophils/100 WBC (Bld) 0.5 % Normal 0.0-1.5 [facility] Comment on above: Performed By: #### . Automated Diff #### [address] [address] Eos Absolute 0.3 x10*3/mcL Normal 0.0-0.4 [facility] Comment on above: Performed By: #### . Automated Diff #### [address] [address] Eosinophils/100 WBC (Bld) 2.1 % Normal 0.0-5.4 [facility] Comment on above: Performed By: #### . Automated Diff #### [address] [address] Lymph Absolute 2.2 x10*3/mcL Normal 1.0-4.8 [facility] Comment on above: Performed By: #### . Automated Diff #### [address] [address] Lymphocytes/100 WBC (Bld) 18.0 % Low 27.2-40.8 [facility] Comment on above: Performed By: #### . Automated Diff #### [address] [address] [place] Absolute 0.6 x10*3/mcL Normal 0.1-1.1 [facility] Comment on above: Performed By: #### . Automated Diff #### [address] [address] Monocytes/100 WBC (Bld) 4.9 % Normal 3.7-11.9 [facility] Comment on above: Performed By: #### . Automated Diff #### [address] [address] Neutro Absolute 9.2 x10*3/mcL High 1.8-7.7 [facility] Comment on above: Performed By: #### . Automated Diff #### [place] [address] Neutro Auto 74.5 % High 47.2-70.8 [facility] Comment on above: Performed By: #### . Automated Diff #### [address] [address] ESRon 10-26-2023 Sed Rate 67 mm/hr High 0-30 [facility] Comment on above: Performed By: #### E SR #### [address] [address] Infectious Disease Office/ in Noteon 10-26-2023 Infectious [...] tabs, 0 Refill(s), 11/09/23 10:12:00 EDT, Pharmacy: [facility] #[id number] Basic Metabolic Profile C-Reactive Protein Complete Blood Count w/ Differential Erythrocyte Sedimentation Rate 2. Pseudomonas infection As above Ordered: levoFLOXacin, 1 tabs, Oral, q24hr, X 14 days, # 14 tabs, 0 Refill(s), 11/09/23 10:12:00 EDT, Pharmacy: [facility] #[id number] Basic Metabolic Profile C-Reactive Protein Complete Blood Count w/ Differential Erythrocyte Sedimentation Rate Chief Complaint New pt I&D done at [facility], possible infection of back. History of Present Illness Seen today for persistent drainage after back surgery on September 01. She had L3-L4 decompression and fusion by Dr. Saint Gregory at [facility]. She was discharged home on the . She was discharged on cephalexin for 10 days. She was taken back to surgery on October 11 due to persistent drainage and wound dehiscence. She had a fluid collection which was most consistent with seroma/infection . [place]. Cultures grew Pseudomonas and she was discharged [...] data Procedure/Surgical History Neck Surgery Stomach Pain [place] [facility] (09/02/2023) incision & drainage (10/12/2023) Medications [...] (more content not included)... Normal [facility] Provider Letteron 10-26-2023 Provider Letter (Inserted Image. Shelly ble to display) Tejas Richardson DO [address] [place] [address] Re: Radha Duncan Date of Visit: 10/26/[address] Richardson, Thank you for your referral to my office. Attached you will find the most recent office visit note. Please call if you have any questions or concerns. Sincerely, Pavel Rodriges MD [address] [place] [address], [address] [place] [address] The following document(s) were included in the letter: October 26, 2023 10:13:55 EDT - (10/26/2023) Infectious Disease Office Visit Note Normal [facility] ELECTROLYTESon 08-22-2023 Anion gap [Moles/Vol] 8 mmol/L Normal 5-15 [facility] Comment on above: Performed By: #### E LEC #### [facility] ([id number]) [address], [address] [place] [address] Chloride [Moles/Vol] 110 mmol/L High 98-109 [facility] Comment on above: Performed By: #### E LEC #### [facility] ([id number]) [address], [address] [place] [address] CO2 [Moles/Vol] 23 mmol/L Normal 22-32 [facility] Comment on above: Performed By: #### E LEC #### [facility] ([id number]) [address], [address] [place] [address] Potassium [Moles/Vol] 4.4 mmol/L Normal 3.5-5.0 [facility] Comment on above: Performed By: #### E LEC #### [facility] ([id number]) [address], [address] [place] [address] Sodium [Moles/Vol] 141 mmol/L Normal 134-146 [facility] Comment on above: Performed By: #### E LEC #### [facility] ([id number]) [address] [place] [address] CARDIAC AZAR ADMITon 020 CK [Catalytic activity/Vol] 915 U/L Critically high 30-135 [facility] Comment on above: Result Comment: Test repeated. Critical value verified. Performed By: #### D RUGRPD #### [facility] [address] [place] [address] Christian Mikayla CK.MB [Mass/Vol] 12.82 ng/mL Critically high <=2.37 Th [facility] Comment on above: Result Comment: Test repeated. Critical value verified. Performed By: #### D RUGRPD #### [facility] [address] [place] [address] Christian Mikayla INR Coag (Bld) [Relative time] SEE BELOW Normal [facility] Comment on above: Result Comment: <0.0 34 ng/ml NEGATIVE 0.034-0.119 INDETERMINATE 0.120 AMI CUT OFF Performed By: #### D RUGRPD #### [facility] [address] [place], [place] [address] Christian Mikayla ÁNGEL 96.0 ng/mL Critically high <=61.5 [facility] Comment on above: Performed By: #### D RUGRPD #### [facility] [address] [place], [place] [address] Christian Mikayla TROP 0.028 ng/mL Normal <=0.034 [facility] Comment on above: Performed By: #### D RUGRPD #### [facility] [address] [place] [address] Christian Mikayla CK [Catalytic activity/Vol] 1282 U/L Critically high 30-135 [facility] Comment on above: Result Comment: Test repeated. Critical value verified. Performed By: #### T ROP, CMP #### [facility] [address] [place] [address] Christian Mikayla CK.MB [Mass/Vol] 24.63 ng/mL Critically high <=2.37 Th [facility] Comment on above: Result Comment: Test repeated. Critical value verified. Performed By: #### T ROP, CMP #### [facility] [address] [place], [place] [address] Christian Mikayla INR Coag (Bld) [Relative time] SEE BELOW Normal [facility] Comment on above: Result Comment: <0.0 34 ng/ml NEGATIVE 0.034-0.119 INDETERMINATE 0.120 AMI CUT OFF Performed By: #### T ROP, CMP #### [facility] [address] [place] [address] Christian Mikayla ÁNGEL 235.0 ng/mL Critically high <=61.5 [facility] Comment on above: Performed By: #### T ROP, CMP #### [facility] [address] [place] [address] Christian Mikayla TROP 0.033 ng/mL Normal <=0.034 [facility] Comment on above: Performed By: #### T ROP, CMP #### [facility] [address] [place] [address] Christian Mikayla CBC AUTO DIFFon 03-07-2020 Basophils (Bld) [#/Vol] 0.0 103/ul Normal 0.0-0.1 [facility] Comment on above: Performed By: #### C BC #### [facility] [address] [place], [place] [address] Christian Mikayla Basophils/100 WBC (Bld) 0.1 % Critically low 0.2-2.0 [facility] Comment on above: Performed By: #### C BC #### [facility] [address] [place], [place] [address] Christian Mikayla Eosinophils (Bld) [#/Vol] 0.0 103/ul Normal 0.0-0.7 [facility] Comment on above: Performed By: #### C BC #### [facility] [address] [place], [place] [address] Christian Mikayla Eosinophils/100 WBC (Bld) 0.0 % Critically low 0.9-7.0 [facility] Comment on above: Performed By: #### C BC #### [facility] [address] [id number] Christian Mikayla Erythrocyte distribution width (RBC) [Ratio] 13.4 % Normal 11.0-15.0 [facility] Comment on above: Performed By: #### C BC #### [facility] [address] [id number] Christian Mikayla Hematocrit (Bld) [Volume fraction] 35.4 % Critically low 36.0-48.0 [facility] Comment on above: Performed By: #### C BC #### [facility] [address] [place], [place] [address] Christian Mikayla Hemoglobin (Bld) [Mass/Vol] 11.4 g/dL Critically low 12.0-16.0 [facility] Comment on above: Performed By: #### C BC #### [facility] [address] [place], [place] [address] Christian Mikayla IG # 0.07 10e3/ul Critically high 0.00-0.03 [facility] Comment on above: Performed By: #### C BC #### [facility] [address] [place], [place] [address] Christian Mikayla IG % 0.4 % Normal 0.0-0.5 [facility] Comment on above: Performed By: #### C BC #### [facility] [address] [place], [place] [address] Christian Mikayla Lymphocytes (Bld) [#/Vol] 1.1 103/ul Critically low 1.2-3.8 [facility] Comment on above: Performed By: #### C BC #### [facility] [address] [place], [place] [address] Christian Mikayla Lymphocytes/100 WBC (Bld) 6.9 % Critically low 20.5-60.0 [facility] Comment on above: Performed By: #### C BC #### [facility] [address] [place], [place] [address] Christian Mikayla MANUAL DIFF REQ NO Normal [facility] Comment on above: Performed By: #### C BC #### [facility] [address] [place], [place] [address] Christianvíctor Santanaen MCH (RBC) [Entitic mass] 32.7 pg Normal 26.7-34.0 [facility] Comment on above: Performed By: #### C BC #### [facility] [address] [place] [address] Christianvíctor Degroot MCHC (RBC) [Mass/Vol] 32.2 g/dL Normal 29.9-35.2 [facility] Comment on above: Performed By: #### C BC #### [facility] [address] [place] [address] Christianvíctor Santanaen MCV (RBC) [Entitic vol] 101.4 fL Critically high 81.0-99.0 [facility] Comment on above: Performed By: #### C BC #### [facility] [address] [place] [address] Christian Mikayla Monocytes (Bld) [#/Vol] 1.4 103/ul Critically high 0.3-0.8 [facility] Comment on above: Performed By: #### C BC #### [facility] [address] [place] [address] Christian Mikayla Monocytes/100 WBC (Bld) 8.6 % Normal 1.7-12.0 [facility] Comment on above: Performed By: #### C BC #### [facility] [address] [place] [address] Christian Mikayla Neutrophils (Bld) [#/Vol] 13.4 103/ul Critically high 1.4-6.5 [facility] Comment on above: Performed By: #### C BC #### [facility] [address] [place] [address] Christian Mikayla Neutrophils/100 WBC (Bld) 84.0 % Critically high 43.0-75.0 [facility] Comment on above: Performed By: #### C BC #### [facility] [address] [place] [address] Christian Mikayla Platelet mean volume (Bld) [Entitic vol] 9.5 fL Normal 9.5-13.5 [facility] Comment on above: Performed By: #### C BC #### [facility] [address] [place], [place] [address] Christian Mikayla Platelets (Bld) [#/Vol] 207 103/ul Normal 150-450 [facility] Comment on above: Performed By: #### C BC #### [facility] [address] [place] [address] Christian Mikayla RBC (Bld) [#/Vol] 3.49 106/ul Critically low 4.20-5.40 Th [facility] Comment on above: Performed By: #### C BC #### [facility] [address] [place], [place] [address] Christian Mikayla WBC (Bld) [#/Vol] 16.0 103/ul Critically high 4.0-11.0 [facility] Comment on above: Performed By: #### C BC #### [facility] [address] [place], [place] [address] Christian Mikayla PROF CHEM 8 (BAS METB)on Anion gap [Moles/Vol] 11.2 mmol/L Normal [facility] Comment on above: Performed By: #### D RUGRPD #### [facility] [address] [place], [place] [address] Christian Mikayla Calcium [Mass/Vol] 8.3 mg/dL Critically low 8.4-10.2 [facility] Comment on above: Performed By: #### D RUGRPD #### [facility] [address] [place], [place] [address] Christian Mikayla Chloride [Moles/Vol] 106 mmol/L Normal 98-107 [facility] Comment on above: Performed By: #### D RUGRPD #### [facility] [address] [place], [place] [address] Christian Mikayla CO2 [Moles/Vol] 24.5 mmol/L Normal 22.0-30.0 [facility] Comment on above: Performed By: #### D RUGRPD #### [facility] [address] [place], [place] [address] Christian Mikayla Creatinine [Mass/Vol] 0.53 mg/dL Normal 0.52-1.04 [facility] Comment on above: Performed By: #### D RUGRPD #### [facility] [address] [place], [place] [address] Christian Mikayla EGFR-AF VINCENTIAN >60 Normal >=60 [facility] Comment on above: Performed By: #### D RUGRPD #### [facility] [address] [place], [place] [address] Christian Mikayla EGFR-NON AF VINCENTIAN >60 Normal >=60 [facility] Comment on above: Performed By: #### D RUGRPD #### [facility] [address] [place], [place] [address] Christian Mikayla Glucose [Mass/Vol] 113 mg/dL Critically high 74-106 T [facility] Comment on above: Performed By: #### D RUGRPD #### [facility] [address] [phone] Christian Mikayla Potassium [Moles/Vol] 3.7 mmol/L Normal 3.4-5.0 [facility] Comment on above: Performed By: #### D RUGRPD #### [facility] [address] [phone] Christian Mikayla Sodium [Moles/Vol] 138 mmol/L Normal 137-145 [facility] Comment on above: Performed By: #### D RUGRPD #### [facility] [address] [phone] Chrisitan Mikayla Urea nitrogen [Mass/Vol] 12.0 mg/dL Normal 7.0-17.0 [facility] Comment on above: Performed By: #### D RUGRPD #### [facility] [address] [place], [place] [address] Christian Mikayla Urea nitrogen/Creatinin e [Mass ratio] 22.6 mg/mg Normal [facility] Comment on above: Performed By: #### D RUGRPD #### [facility] [address] [place], [place] [address] Christian Mikayla CBC W MANUAL DIFFon 03-06-20 20 ATYPICAL LYMPH # Normal [facility] Comment on above: Performed By: #### D RUGRPD #### [facility] [address] [place], [place] [address] Christian Mikayla ATYPICAL LYMPH % Normal [facility] Comment on above: Performed By: #### D RUGRPD #### [facility] [address] [place], [place] [address] Christian Mikayla BAND # Normal 0.0-0.3 [facility] Comment on above: Performed By: #### D RUGRPD #### [facility] [address] [place] [address] Christian Mikayla BAND % Normal 0-5 [facility] Comment on above: Performed By: #### D RUGRPD #### [facility] [address] [place] [address] Christian Mikayla BASOM # 0.00 103/ul Normal 0.00-0.10 [facility] Comment on above: Performed By: #### D RUGRPD #### [facility] [address] [place] [address] Christian Mikayla BASOM % 0.0 % Critically low 0.2-2.0 [facility] Comment on above: Performed By: #### D RUGRPDwayne #### [facility] [address] [place] [address] Christian Mikayla BLAST # Normal [facility] Comment on above: Performed By: #### D RUGRPD #### [facility] [address] [place] [address] Christian Mikayla BLAST % Normal [facility] Comment on above: Performed By: #### D RUGRPD #### [facility] [address] [place], [place] [address] Christian Mikayla CORRECTED WBC Normal 4.0-11.0 [facility] Comment on above: Performed By: #### D RUGRPD #### [facility] [address] [place] [address] Christian Mikayla Eosinophils (Bld) [#/Vol] 0.00 103/ul Normal 0.00-0.70 [facility] Comment on above: Performed By: #### D RUGRPD #### [facility] [address] [place], [place] [address] Christian Mikayla Eosinophils/100 WBC (Bld) 0.0 % Critically low 0.9-7.0 [facility] Comment on above: Performed By: #### D RUGRPD #### [facility] [address] [place], [place] [address] Christian Mikayla Erythrocyte distribution width (RBC) [Ratio] 13.2 % Normal 11.0-15.0 [facility] Comment on above: Performed By: #### D RUGRPD #### [facility] [address] [place], [place] [address] Christian Mikayla Hematocrit (Bld) [Volume fraction] 44.1 % Normal 36.0-48.0 [facility] Comment on above: Performed By: #### D RUGRPD #### [facility] [address] [place], [place] [address] Christian Mikayla Hemoglobin (Bld) [Mass/Vol] 13.9 g/dl Normal 12.0-16.0 [facility] Comment on above: Performed By: #### D RUGRPD #### [facility] [address] [place], [place] [address] Christian Mikayla LYMPHM # 0.26 103/ul Critically low 1.20-3.80 [facility] Comment on above: Performed By: #### D RUGRPD #### [facility] [address] [place], [place] [address] Christian Mikayla LYMPHM% 1.0 % Critically low 20.5-60.0 [facility] Comment on above: Performed By: #### D RUGRPD #### [facility] [address] [phone] Christian Mikayla MCH (RBC) [Entitic mass] 32.6 pg Normal 26.7-34.0 [facility] Comment on above: Performed By: #### D RUGRPD #### [facility] [address] [place], [place] [address] Christian Mikayla MCHC (RBC) [Mass/Vol] 31.5 g/dl Normal 29.9-35.2 [facility] Comment on above: Performed By: #### D RUGRPD #### [facility] [address] [address] Christian Mikayla MCV (RBC) [Entitic vol] 103.3 fL Critically high 81.0-99.0 [facility] Comment on above: Performed By: #### D RUGRPD #### [facility] [address] [place] [address] Christian Mikayla METAMYELOCYTE # Normal [facility] Comment on above: Performed By: #### D RUGRPD #### [facility] [address] [place], [place] [address] Christian Mikayla METAMYELOCYTE % Normal [facility] Comment on above: Performed By: #### D RUGRPD #### [facility] [address] [place] [address] Christian Mikayla MONOM# 1.32 103/ul Critically high 0.30-0.80 [facility] Comment on above: Performed By: #### D RUGRPD #### [facility] [address] [place] [address] Christian Mikayla MONOM% 5.0 % Normal 1.7-12.0 [facility] Comment on above: Performed By: #### D RUGRPD #### [facility] [address] [place] [address] Christian Mikayla MYELOCYTE # Normal [facility] Comment on above: Performed By: #### D RUGRPD #### [facility] [address] [place] [address] Christian Mikayla MYELOCYTE % Normal [facility] Comment on above: Performed By: #### D RUGRPD #### [facility] [address] [place], [place] [address] Christian Mikayla NRBC Normal [facility] Comment on above: Performed By: #### D RUGRPD #### [facility] [address] [place] [address] Christian Mikayla Platelet mean volume (Bld) [Entitic vol] 9.6 fL Normal 9.5-13.5 [facility] Comment on above: Performed By: #### D RUGRPD #### [facility] [address] [place] [address] Christian Degroot Platelets (Bld) [#/Vol] 268 103/ul Normal 150-450 [facility] Comment on above: Performed By: #### D RUGRPD #### [facility] [address] [place] [address] Christian Degroot RBC (Bld) [#/Vol] 4.27 106/ul Normal 4.20-5.40 [facility] Comment on above: Performed By: #### D RUGRPD #### [facility] [address] [place], [place] [address] Christian Degroot SEG # 24.82 103/ul Critically high 1.40-6.50 [facility] Comment on above: Performed By: #### D RUGRPD #### [facility] [address] [place], [place] [address] Christian Degroot Segmented neutrophils/100 WBC (Bld) 94.0 % Critically high 43.0-75.0 [facility] Comment on above: Performed By: #### D RUGRPD #### [facility] [address] [place], [place] [address] Christian Degroot WBC (Bld) [#/Vol] 26.4 103/ul Critically high 4.0-11.0 [facility] Comment on above: Performed By: #### D RUGRPD #### [facility] [address] [place], [place] [address] Christian Degroot CPKon 03-06-2020 CK [Catalytic activity/Vol] 464 U/L Critically high 30-135 [facility] Comment on above: Result Comment: test repeated critical value verified Performed By: #### C K #### [facility] [address] [place], [place] [address] Christian Degroot CT ABD/PELV W CONon 03-06-20 [...] by: MAT CASEY Date: 2020-03-06 18:45 Normal [facility] CT STROKE HEAD WOon 03-06-20 [...] MAT CASEY Date: 2020-03-06 16:31 Normal [facility] DRUG SCREEN RAPID (URINE)on 03-06-2020 AMP Positive Normal NEGATIVE [facility] Comment on above: Performed By: #### D RUGRPD #### [facility] [address] [place] [address] Christian Mikayla BAR Negative Normal NEGATIVE [facility] Comment on above: Performed By: #### D RUGRPD #### [facility] [address] [place] [address] Christian Mikayla BUP Negative Normal NEGATIVE [facility] Comment on above: Performed By: #### D RUGRPD #### [facility] [address] [place] [address] Christian Mikayla BZO Negative Normal NEGATIVE [facility] Comment on above: Performed By: #### D RUGRPD #### [facility] [address] [place] [address] Christian Mikayla RITCHIE Negative Normal NEGATIVE [facility] Comment on above: Performed By: #### D RUGRPD #### [facility] [address] [place] [address] Christian Mikayla CUT-OFFS SEE BELOW Normal [facility] Comment on above: Result Comment: AMP (Amphetamine): [...] ng/mL Performed By: #### D RUGRPD #### [facility] [address] [place] [address] Christian Mikayla DRUG CUT HEADER DRUG CLASS TEST SYST EM CUT-OFF CONCENTRATIONS ARE FOLLOWS: Normal [facility] Comment on above: Performed By: #### D RUGRPD #### [facility] [address] [address] Christian Mikayla mAMP Negative Normal NEGATIVE [facility] Comment on above: Performed By: #### D RUGRPD #### [facility] [address] [id number] Christian Mikayla MTD Negative Normal NEGATIVE [facility] Comment on above: Performed By: #### D RUGRPD #### [facility] [address] [address] Christian Mikayla OPI Positive Normal NEGATIVE [facility] Comment on above: Performed By: #### D RUGRPD #### [facility] [address] [place] [address] Christian Mikayla OXY Negative Normal NEGATIVE [facility] Comment on above: Performed By: #### D RUGRPD #### [facility] [address] [place] [address] Christian Mikayla PCP Negative Normal NEGATIVE [facility] Comment on above: Performed By: #### D RUGRPD #### [facility] [address] [place] [address] Christian Mikayla PPX Negative Normal NEGATIVE [facility] Comment on above: Performed By: #### D RUGRPD #### [facility] [address] [place] [address] Christian Mikayla TCA Negative Normal NEGATIVE [facility] Comment on above: Performed By: #### D RUGRPD #### [facility] [address] [place] [address] Christian Mikayla THC Negative Normal NEGATIVE [facility] Comment on above: Performed By: #### D RUGRPD #### [facility] [address] [place], [place] [address] Christian Mikayla ER URINE PROFILEon 0 Bilirubin [Mass/Vol] Negative Normal NEGATIVE [facility] Comment on above: Performed By: #### E RUR #### [facility] [address] [place] [address] Christian Mikayla BLOOD Negative Normal NEGATIVE [facility] Comment on above: Performed By: #### E RUR #### [facility] [address] [place] [address] Christian Mikayla Clarity (U) CLEAR Normal [facility] Comment on above: Performed By: #### E RUR #### [facility] [address] [place] [address] Christian Mikayla Color (U) YELLOW Normal YELLOW [facility] Comment on above: Performed By: #### E RUR #### [facility] [address] [place] [address] Christian Mikayla ERUAHD A micrscopic examina tion will be performed if indicated. Normal [facility] Comment on above: Performed By: #### E RUR #### [facility] [address] [place] [address] Christian Mikayla Glucose [Mass/Vol] Negative Normal NEGATIVE [facility] Comment on above: Performed By: #### E RUR #### [facility] [address] [place] [address] Christian Mikayla Ketones Ql (U) Negative Normal NEGATIVE [facility] Comment on above: Performed By: #### E RUR #### [facility] [address] [place] [address] Christian Mikayla Nitrite Ql (U) Negative Normal NEGATIVE [facility] Comment on above: Performed By: #### E RUR #### [facility] [address] [place] [address] Christian Mikayla pH (Bld) 6.0 Normal 5-9 [facility] Comment on above: Performed By: #### E RUR #### [facility] [address] [place] [address] Christian Mikayla Protein (U) [Mass/Vol] TRACE Normal [facility] Comment on above: Performed By: #### E RUR #### [facility] [address] [place] [address] Christian Mikayla SPEC GRAVITY >=1.030 Normal 1.005-<=1.02 5 [facility] Comment on above: Performed By: #### E RUR #### [facility] [address] [place], [place] [address] Christian Degroot UR MICRO IND NOT INDICATED Normal [facility] Comment on above: Performed By: #### E RUR #### [facility] [address] [place], [place] [address] Christian Degroot Urobilinogen Qn (U) 0.2 EU/dl Normal [facility] Comment on above: Performed By: #### E RUR #### [facility] [address] [place], [place] [address] Christian Degroot WBC (Bld) [#/Vol] Negative Normal NEGATIVE [facility] Comment on above: Performed By: #### E RUR #### [facility] [address] [place], [place] [address] Christian Degroot ETHANOL (BLD ALC)on 03-06-20 20 Ethanol [Mass/Vol] NOTE: 80 mg/dl is th e legal limit for a blood alcohol level Normal [facility] Comment on above: Performed By: #### E TH #### [facility] [address] [place], [place] [address] Christian Degroot Ethanol [Mass/Vol] mg/dL Normal [facility] Comment on above: Performed By: #### E TH #### [facility] [address] [place] [address] Christian Degroot HEMOGRAM AND PLATELon 2019 WBC (Bld) [#/Vol] 23.5 103/ul Critically high 4.0-11.0 [facility] Comment on above: Performed By: #### H H #### [facility] [address] [place] [address] Christian Degroot LACTATE/LACTIC ACIDon 2019 Lactate [Moles/Vol] 0.7 mmol/L Normal 0.7-2.0 [facility] Comment on above: Performed By: #### L ACT #### [facility] [address] [place] [address] Christian Degroot MYOGLOBINon 03-06-2020 Myoglobin [Mass/Vol] 918.0 ng/mL Critically high <=61.5 [facility] Comment on above: Result Comment: test repeated critical value verified Performed By: #### M YO #### [facility] [address] [place], [place] [address] Christian Degroot POINT OF CARE GLUCOSEon 02-14 Glucose [Mass/Vol] 117 mg/dL Critically high 74-106 T [facility] Comment on above: Performed By: #### D RUGRPD #### [facility] [address] [place], [place] [address] Christian Degroot PROF 14(COMP METB)on 020 Albumin [Mass/Vol] 3.3 g/dL Critically low 3.5-5.0 e [facility] Comment on above: Performed By: #### T BLAYNE, CMP #### [facility] [address] [place], [place] [address] Christian Degroot Albumin/Globulin [Mass ratio] 1.1 {ratio} Normal [facility] Comment on above: Performed By: #### T ROP, CMP #### [facility] [address] [place] [address] Christian Mikayla ALP [Catalytic activity/Vol] 69 U/L Normal 38-126 [facility] Comment on above: Performed By: #### T ROP, CMP #### [facility] [address] [place] [address] Christian Degroot ALT [Catalytic activity/Vol] 30 U/L Normal 9-52 [facility] Comment on above: Performed By: #### T ROP, CMP #### [facility] [address] [place], [place] [address] Christianvíctor Degroot Anion gap [Moles/Vol] 16.8 mmol/L Normal [facility] Comment on above: Performed By: #### T ROP, CMP #### [facility] [address] [place], [place] [address] Christianvíctor Degroot AST [Catalytic activity/Vol] 29 U/L Normal 14-36 [facility] Comment on above: Performed By: #### T ROP, CMP #### [facility] [address] [place] [address] Christian Mikayla Bilirubin Ql (U) 0.4 mg/dL Normal 0.2-1.3 The [facility] Comment on above: Performed By: #### T ROP, CMP #### [facility] [address] [place] [address] Christian Mikayla Calcium [Mass/Vol] 8.7 mg/dL Normal 8.4-10.2 [facility] Comment on above: Performed By: #### T ROP, CMP #### [facility] [address] [address] Christian Mikayla Chloride [Moles/Vol] 104 mmol/L Normal 98-107 [facility] Comment on above: Performed By: #### T ROP, CMP #### [facility] [address] [place] [address] Christian Mikayla CO2 [Moles/Vol] 22.6 mmol/L Normal 22.0-30.0 [facility] Comment on above: Performed By: #### T ROP, CMP #### [facility] [address] [place] [address] Christian Mikayla Creatinine [Mass/Vol] 0.92 mg/dL Normal 0.52-1.04 [facility] Comment on above: Performed By: #### T ROP, CMP #### [facility] [address] [place], [place] [address] Christian Mikayla EGFR-AF VINCENTIAN >60 Normal >=60 [facility] Comment on above: Performed By: #### T ROP, CMP #### [facility] [address] [place] [address] Christian Mikayla EGFR-NON AF VINCENTIAN >60 Normal >=60 [facility] Comment on above: Performed By: #### T ROP, CMP #### [facility] [address] [place], [place] [address] Christian Mikayla Globulin (S) [Mass/Vol] 3.0 g/dL Normal [facility] Comment on above: Performed By: #### T ROP, CMP #### [facility] [address] [place] [address] Christian Mikayla Glucose [Mass/Vol] 130 mg/dL Critically high 74-106 [facility] Comment on above: Performed By: #### T ROP, CMP #### [facility] [address] [id number] Christian Mikayla Potassium [Moles/Vol] 4.4 mmol/L Normal 3.4-5.0 [facility] Comment on above: Performed By: #### T ROP, CMP #### [facility] [address] [phone] Christian Mikayla Protein [Mass/Vol] 6.3 g/dL Normal 6.1-8.2 [facility] Comment on above: Performed By: #### T ROP, CMP #### [facility] [address] [phone] Christian Mikayla Sodium [Moles/Vol] 139 mmol/L Normal 137-145 [facility] Comment on above: Performed By: #### T ROP, CMP #### [facility] [address] [address] Christian Mikayla Urea nitrogen [Mass/Vol] 18.0 mg/dL Critically high 7.0-17.0 [facility] Comment on above: Performed By: #### T ROP, CMP #### [facility] [address] [id number] Christian Mikayla Urea nitrogen/Creatinin e [Mass ratio] 19.6 mg/mg Normal [facility] Comment on above: Performed By: #### T ROP, CMP #### [facility] [address] [phone] Christian Mikayla RESPIRATORY PANEL PLUSon Adenovirus NOT DETECTED Normal NOT DETECTED [facility] Comment on above: Performed By: #### D RUGRPD #### [facility] [address] [address] Christian Mikayla B. Parapertusis NOT DETECTED Normal NOT DETECTED [facility] Comment on above: Performed By: #### D RUGRPD #### [facility] [address] [phone] Christian Mikayla B. Pertussis NOT DETECTED Normal NOT DETECTED The [facility] Comment on above: Performed By: #### D RUGRPD #### [facility] [address] [address] Christian Mikayla Chlamydia Pneumoniae NOT DETECTED Normal NOT DETECTED [facility] Comment on above: Performed By: #### D RUGRPD #### [facility] [address] [place] [address] Christian Mikayla Coronavirus 229E NOT DETECTED Normal NOT DETECTED [facility] Comment on above: Performed By: #### D RUGRPD #### [facility] [address] [place] [address] Christian Mikayla Coronavirus HKU1 NOT DETECTED Normal NOT DETECTED [facility] Comment on above: Performed By: #### D RUGRPD #### [facility] [address] [place] [address] Christian Mikayla Coronavirus NL63 NOT DETECTED Normal NOT DETECTED [facility] Comment on above: Performed By: #### D RUGRPD #### [facility] [address] [place] [address] Christian Mikayla Coronavirus OC43 NOT DETECTED Normal NOT DETECTED [facility] Comment on above: Performed By: #### D RUGRPD #### [facility] [address] [place] [address] Christian Mikayla Influenza A H1 2008 NOT DETECTED Normal NOT DETECTED [facility] Comment on above: Performed By: #### D RUGRPD #### [facility] [address] [place] [address] Christian Mikayla Influenza B NOT DETECTED Normal NOT DETECTED [facility] Comment on above: Performed By: #### D RUGRPD #### [facility] [address] [place] [address] Christian Mikayla Metapneumovirus NOT DETECTED Normal NOT DETECTED [facility] Comment on above: Performed By: #### D RUGRPD #### [facility] [address] [place] [address] Christian Mikayla Mycoplas. Pneumoniae NOT DETECTED Normal NOT DETECTED [facility] Comment on above: Performed By: #### D RUGRPD #### [facility] [address] [place], [place] [address] Christian Mikayla Parainfluenza 1 NOT DETECTED Normal NOT DETECTED [facility] Comment on above: Performed By: #### D RUGRPD #### [facility] [address] [place] [address] Christian Mikayla Parainfluenza 2 NOT DETECTED Normal NOT DETECTED [facility] Comment on above: Performed By: #### D RUGRPD #### [facility] [address] [place] [address] Christian Mikayla Parainfluenza 3 NOT DETECTED Normal NOT DETECTED [facility] Comment on above: Performed By: #### D RUGRPD #### [facility] [address] [place] [address] Christian Mikayla Parainfluenza 4 NOT DETECTED Normal NOT DETECTED [facility] Comment on above: Performed By: #### D RUGRPD #### [facility] [address] [place] [address] Christian Mikayla Rhino/Enterovirus NOT DETECTED Normal NOT DETECTED [facility] Comment on above: Performed By: #### D RUGRPD #### [facility] [address] [place] [address] Christian Mikayla RP2 Header 1 RESPIRATORY PANEL: VIRUSES Normal [facility] Comment on above: Performed By: #### D RUGRPD #### [facility] [address] [place] [address] Christian Mikayla RP2 Header 2 RESPIRATORY PANEL: BACTERIA Normal [facility] Comment on above: Performed By: #### D RUGRPD #### [facility] [address] [place] [address] Christian Mikayla RP2 Header 4 EUA SEE BELOW Normal The [facility] Comment on above: Result Comment: This test is not yet approved or cleared by the [place] FDA. When there are no FDA-approved or cleared tests available, and other criteria are met, FDA can make tests available under an emergency access mechanism called an Emergency Use Authorization (EUA). The EUA for this test is supported by the Master Scheduler of Health and Human Service?s (HHS?s) declaration [...] used). Performed By: #### D RUGRPD #### [facility] [address] [place] [address] Christian Degroot RSV NOT DETECTED Normal NOT DETECTED [facility] Comment on above: Performed By: #### D RUGRPD #### [facility] [address] [place] [address] Christian Mikayla SARS-CoV-2: COVID-19 NOT DETECTED Normal NOT DETECTED [facility] Comment on above: Performed By: #### D RUGRPD #### [facility] [address] [place] [address] [facility] Ion 03-06-2020 Troponin I.cardiac [Mass/Vol] 0.016 ng/mL Normal <=0.034 [facility] Comment on above: Performed By: #### T ROP, CMP #### [facility] [address] [place] [address] Troponin I.cardiac [Mass/Vol] SEE BELOW Normal [facility] Comment on above: Result Comment: <0.0 34 ng/ml NEGATIVE 0.034-0.119 INDETERMINATE 0.120 AMI CUT OFF Performed By: #### T ROP, CMP #### [facility] [address] [place] [address] Christian Mikayla XR CHEST 1 Von 03-06-2020 [...] FELA SMITH Date: 2020-03-06 15:07 Normal [facility] CT 3D CERVICAL SPINE WITH CO NTRASTon 04-27-2018 CT 3D [facility] [address] [id number] Patient Name: RADHA DUNCAN : 1970Sex: FAge: Race: WhiteMRN: [id number]. Location: 85Patient Status: OVisit #: [id number] Date: 04/10/2018 12:10:00 PMCompleted Date: 04/27/2018 10:58 AMRequesting Provider: MARY DIAL Attending Provider: MARY DIAL Report Copy To: TEJAS RICHARDSON Signs & Symptoms: M54.12 Radiculopathy, cervical region [id number]: Nyla MYELOGRAM AUTH [id number] VALID 04/11/18-07/12/18 PER [facility] [id number] JYComments: Exam: CT 3D CERVICAL SPINE WITH CONTRASTAccession #: [id number] CT 3D CERVICAL SPINE WITH CONTRAST 04/27/2018 [...] disc spacers. No hardware complication. Approved by:Mandeep Yonug on 04/27/2018 11:14 AM EST. I, Oli Sanders, have reviewed the images and report and concur with these findings. Electronically signed by:Oli Sanders. Transcribed by: [email or web address], User Resident: MANDEEP YOUNGElectronically Signed by: OLI SANDERS @ 04/27/2018 01:02 PMI personally read this/these film(s) with this resident Normal [facility] CT 3D LUMBAR SPINE W CONTRAS Ton 04-27-2018 CT 3D LUMBAR SPINE W CONTRAST [facility] [address] [place] [address] Patient Name: RADHA DUNCAN : 1970Sex: FAge: Race: WhiteMRN: [id number]. Location: 85Patient Status: DVisit #: [id number] Date: 04/10/2018 12:10:00 PMCompleted Date: 04/27/2018 10:59 AMRequesting Provider: MARY DIAL Attending Provider: MARY DIAL Report Copy To: ALYSSAMILOTEJAS Signs & Symptoms: M54.16 Radiculopathy, lumbar region [id number]: Nyla MYELOGRAM AUTH [id number] VALID 04/11/18-07/12/18 PER [facility] [id number] JYComments: Exam: CT 3D LUMBAR SPINE W CONTRASTAccession #: [id number] CT 3D LUMBAR SPINE W CONTRAST 04/27/2018 [...] findings. Electronically signed by:Antony Skelton. Transcribed by: [email or web address], User Resident: MANDEEP YOUNGElectronically Signed by: ANTONY SKELTON @ 04/27/2018 05:36 PMI personally read this/these film(s) with this resident Normal [facility] ENTIRE MYELOGRAMon 8 ENTIRE MYELOGRAM [facility] [address] [place] [address] Patient Name: RADHA DUNCAN : 1970Sex: FAge: Race: WhiteMRN: [id number]. Location: 85Patient Status: OVisit #: [id number] Date: 04/10/2018 12:10:00 PMCompleted Date: 04/27/2018 10:19 AMRequesting Provider: MARY DIAL Attending Provider: MARY DIAL Report Copy To: TEJAS RICHARDSON Signs & Symptoms: M54.16 Radiculopathy, lumbar region [id number]: [place] MYELOGRAMComments: , , , Ordering Provider - MARY DIAL MD , Exam: ENTIRE MYELOGRAMAccession #: [id number] ENTIRE MYELOGRAM 04/27/2018 10:19 AM EST SIGNS [...] and risks are acceptable. Consent was obtained. Timeout:[place] protocol timeout verification performed. PROCEDURE:Estimated blood loss:None [...] findings. Electronically signed by:Oli Sanders. Transcribed by: [email or web address], User Resident: MANDEEP YOUNGElectronically Signed by: OLI SANDERS @ 04/27/2018 01:01 PMI personally read this/these film(s) with this resident Normal [facility] Comment on above: Order Comment: , , = ========= , Ordering Provider - MARY DIAL MD , Ta 02-20-2018 CNPYamilex Telephone ([facility]) -------RADHA DUNCAN ([id number]) 1970 FDate Time Provider Ojsnwguhyv26/8/18 MAGED MURDOCK During your visit today, we recorded the following information about you:Jacinta Philippe [facility] Patient Service Spec 02/20/2018 8:05 [...] from his care.Please call her back at [phone].Elysia Montoya Psr 02/22/2018 8:37 AM SignedPlease fax letter over to [phone].[place] LPN 02/27/2018 10:18 AM SignedSpoke with patient and she wanted to know if knew of a physician inthe area that she lived that could do the ketamine infusion.I explained most likely he would not have this information she would need tocheck around in her area with other pain providers to see if they do theinfusions. She said [place] found one in the [place] but they want money upfront and [...] Known Allergies)Date Reviewed: 02/10/2018Reviewed by: Kayla Sparks MACHINE SHOP INSPECTOR - Fully AssessedReason for Visit: Letter [...] by MAGED MURDOCK MD on 02/28/18 Normal [facility] CNOVon 02-10-2018 CNOV Office Visit ([facility]) -------RADHA DUNCAN ([id number]) 1970 FDate Time Provider Department02/10/18 10:45 AM MAGED MURDOCK During your visit today, we recorded the following information about you: Pulse Respiration Blood pressure Weight 80/minute 16/minute 132/47 69.9 kgMaged Murdock MD 02/11/2018 1:30 PM AddendumSUBJECTIVE:The patient presents to [facility] Pain Management Department for afollow-up appointment [...] percocet was last taken 02/09/2018 in the [facility] records were reviewed.Imaging results in scanned [...] other than HPI.Data scribed by above mentioned MA/MACHINE SHOP INSPECTOR/RN/PA, and personally reviewed andverified by physician. [...] above. PAU Joynereptember 2017Referring Provider: LINDSEY AGUILAR [[id number]]Allergies As of Date: 02/10/2018(No Known Allergies)Date Reviewed: [...] 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] INVALID FOR*Letter TextSept2017Maged MurdockOhioHealth [facility]ide [facility] Pain [address], [place] [phone] [phone] Suzanne M Bailey:Thank you for seeing me [...] Please call with any questions. Sincerely, Maged uMrdock MDEncounter Number: [id number] Status:Closed by MAGED MURDOCK MD on 02/11/18 Normal [facility] PROGRESSon 02-10-2018 Protein mass conc HNO ID: [id number] thor: Maged Jolleyervice: (none)Author Type: PhysicianType: Progress NotesFiled: 02/11/2018 1:30 PMNote Text:SUBJECTIVE:The patient presents to [facility] Pain Management Departmentfor a follow-up appointment [...] medication: [facility]Relevant [facility] records were reviewed.Imaging results [...] other than HPI.Data scribed by above mentioned MA/MACHINE SHOP INSPECTOR/RN/PA, and personally reviewed andverified by physician. Maged uMrdock MDOBJECTIVE:PHYSICAL EXAMINATION:VS: BP (!) 132/47 Pulse 80 [...] with above. Maged Murdock, PAUeptember 2017 Normal [facility] CNOVon 01-10-2018 CNOV Office Visit ([facility]) -------RADHA DUNCAN ([id number]) 1970 FDate Time Provider Department01/10/18 1:00 PM MONICA YAN (ARLENE) [facility] During your visit today, we recorded the following information about you: Pulse Blood pressure Weight 85/minute 127/47 70.3 kgMonica Yan APRN.CNP 01/10/2018 2:13 PM SignedSUBJECTIVE:The patient presents to [facility] Pain Management Department for afollow-up appointment [...] and C4-C5 secondaryto DDDAnterior mechanical fusion of T2-6-9JWDMZQ OF SYSTEMS:GENERAL: (-) weight loss, (+)malaise, (-)fevers.HEENT:(+)headache [...] other than HPI.Data scribed by above mentioned MA/MACHINE SHOP INSPECTOR/RN/PA, and personally reviewed andverified by Monica [...] resulting treatment plan. Patient agreeswith above.Monica Yan APRN.[facility] 2017Referring Provider: TEJAS RICHARDSON JR [[id number]]Allergies As of Date: 01/10/2018(No Known Allergies)Date Reviewed: [...] INVALID FOR*Follow-up and Disposition History RecordedEncounter Number: [id number] Status:Closed by MONICA YAN CNP on 01/10/18 Normal [facility] PROGRESSon 01-09-2018 Protein mass conc HNO ID: [id number] thor: Monica Pereyra (Director Of Personnel) HillService: (none)Author Type: Nurse PractitionerType: Progress NotesFiled: 01/10/2018 2:13 PMNote Text:SUBJECTIVE:[facility] Departmentfor [facility] appointment [...] to moderate foraminal narrowing at C3-C4, and C4-J6dqjujdpfm to DDDAnterior mechanical fusion of C9-9-6RTGRJM OF SYSTEMS:GENERAL: (-) weight loss, (+)malaise, (-)fevers.HEENT:(+)headache [...] other than HPI.Data scribed by above mentioned MA/MACHINE SHOP INSPECTOR/RN/PA, and personally reviewed andverified by Monica [...] resulting treatment plan. Patientagrees with above.Monica Yan APRN.Sophialovelace rehabilitation hospitalchristen 2017 Normal [facility] Ta 12-21-2017 [facility] Telephone ([facility]) -------RADHA DUNCAN ([id number]) 1970 FDate Time Provider Department12/21/17 MAGED MURDOCK During your visit today, we recorded the following information about you:Lorena Araiza 12/21/2017 10:31 AM AddendumPatient calling in to inquire if you have received MRI films [facility].Please advisJacob Park LPN 12/22/2017 3:15 PM SignedSpoke with patient and informed her that we did receive the thoracic MRI whichwas normal.We did not receive the cervical MRI. She will call [place] and have them refaxit.Kamialberta Brooksca Workleader 12/26/2017 9:53 AM SignedPatient called back in regards to below message. Patient would like to know ifwe have received the Cervical MRI as it was refaxed 12/22. Pleasereview.Clint Park LPN 12/26/2017 11:01 AM SignedSpoke to [place] and they are refaxing it as I [...] by CLINT PARK LPN on 12/22/17 Normal [facility] CNOVon 12-08-2017 CNOV Office Visit ([facility]) -------DAKOTARADHA ([id number]) 1970 FDate Time Provider Department12/08/17 1:30 PM MAGED MURDOCK During your visit today, we recorded the following information about you: Pulse Respiration Blood pressure Weight 62/minute 16/minute 105/40 68.9 kgBenjourdan Murdock MD 12/08/2017 6:06 PM SignedReferring Or Consulting Physician:Lindsey Aguilar, [id number] [place] [id number] COMPLAINT: pain in my neck, shoulders, thoracic [...] Number of children: 0Occupational 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 [...] also during rena-operative period. we dont have tbed-ztidrep-etpcagbq for disability, likely to hamper rapid recovery [...] she did have severe postprocedure pain in [facility] handsDirect patient care time spent: [...] mail.Maged Murdock MDJuly 2017Referring Provider: LINDSEY AGUILAR [[id number]]Allergies As of Date: 12/08/2017(No Known Allergies)Date Reviewed: [...] region [M48.02]Order(s):C-REACTIVE PROTEIN (CRP) [SQCRP] Order #: [id number] FUTURE SED RATE WESTERGREN [SQWSR] Order #: [id number] FUTURE TSH BLD [SQTSH] Order #: [id number] FUTURE IRON + TIBC [SQIRON] Order #: [id number] FUTURE VITAMIN D 25 HYDROXY [SQVITD] Order #: [id number] FUTURE MRI THORACIC SPINE WO/W IVCON [[id number]] Order #: [id number] FUTURE iv contrast (will be provided with [...] EachRfl: 0 MRI CERVICAL SPINE WO IVCON [[id number]] Order #: [id number] FUTUREPrescriptions as of 12/08/2017 Sig: OXCARBAZEPINE 150 [...] discontinue is not on file.Letter TextJuly 2017Maged MurdockRegency Hospital Cleveland WestDepartment of Pain Rxgyzwonsc[address], [place] [phone] [phone] Radha Duncan:Thank you for seeing me today. [...] medications for the issues above, [facility]. Afterthat, further testing could be done to get to the bottom of your problems.Please call with any questions. 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 [...] she did have severepost procedure pain in [facility] handsDirect patient care time spent: [...] fax, or mail.Maged Murdock MDJuly 2017 Normal [facility] Vital Signs Date Time Vital Sign Value Performing Clinician Tracyi nadiya 06-26-2024 09:30-0500 Body height 160 cm Maged Contreras DO Work Phone: [facility] [employer] 06-26-2024 09:30-0500 Body mass index (BMI) [Ratio] 30.11 kg/m2 Maged Contreras DO Work Phone: [facility] 06-26-2024 09:30-0500 Body weight 77.11 kg Maged Contreras DO Work Phone: [facility] Encounters Encounter Date Encounter Type Care Provider Facility Start: 07-23-2024 End: 07-23-2024 [facility]ulatory [facility] Start: 06-26-2024 End: 06-26-2024 Bamboo flowsheet Maged Contreras DO Work Phone: [facility] Start: 06-26-2024 End: 06-26-2024 Bamboo flowsheet Maged Contreras DO Work Phone: [facility] Start: 06-26-2024 End: 06-26-2024 Clinical Support Gina Riddle [facility] Work Phone: [facility] Comment on above: 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 (Primary Dx) Start: 06-26-2024 End: 06-26-2024 Office outpatient new 45 minutes Maged Contreras DO Work Phone: [facility] Comment on above: 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 (Primary Dx); Impacted cerumen of left ear Start: 06-25-2024 End: 06-25-2024 ambulatory Christian Jameson MD Facility: [facility] Start: 06-11-2024 End: 06-11-2024 ambulatory Christian Jameson MD Facility:[facility] Start: 04-24-2024 End: 04-24-2024 ambulatory [facility] Start: 04-11-2024 End: 04-11-2024 ambulatory [facility] Start: 04-04-2024 End: 04-04-2024 ambulatory [facility] Start: 03-27-2024 End: 03-27-2024 ambulatory [facility] Start: 03-20-2024 End: 03-20-2024 ambulatory [facility] Start: 03-16-2024 End: 03-16-2024 ambulatory TEJAS RICHARDSON [facility] Start: 03-15-2024 End: 03-15-2024 ambulatory [facility] Work Phone: Start: 03-15-2024 End: 03-15-2024 Patient encounter procedure [facility] Work Phone: Start: 03-13-2024 End: 03-13-2024 ambulatory TEJAS RICHARDSON [facility] Start: 03-07-2024 End: 03-07-2024 ambulatory [facility] Start: 12-15-2023 End: 01-15-2024 ambulatory TEJAS RICHARDSON [facility] Start: 12-05-2023 End: 12-15-2023 ambulatory TEJAS RICHARDSON [facility] Start: 11-10-2023 End: 11-10-2023 [facility] Start: 10-26-2023 End: 10-26-2023 ambulatory Tejas Richardson DO Facility:[facility] Start: 10-26-2023 End: 10-26-2023 ambulatory Tejas Sanders [facility] Facility:Infectious Disease Start: 08-22-2023 End: 08-22-2023 ambulatory TEJAS Roddy [facility] Start: 08-15-2023 End: 09-14-2023 ambulatory [facility] Start: 07-18-2023 End: 08-15-2023 ambulatory [facility] Start: 03-06-2020 End: 03-07-2020 Patient encounter procedure PEREZ LESTER Facility: Start: 04-27-2018 End: 04-28-2018 Patient encounter procedure PROVIDER UNKNOWN [facility] Start: 02-10-2018 End: 02-13-2018 Patient encounter MAGED MURDOCK [facility] Start: 01-10-2018 End: 01-11-2018 Patient encounter MONICA YAN [facility] Start: 12-08-2017 End: 12-09-2017 Patient encounter MAGED MURDOCK [facility] Procedures Date Procedure Procedure Detail Performing Clinician Start: 06-26-2024 AUDITORY FUNCTION TESTS Gina Riddle [facility]-A Work Phone: Start: 03-06-2020 End: 03-06-2020 Microscopic examination of blood, culture PEREZ LESTER Comment on above: Performed By: #### D RUGRPDwayne #### [facility] [address] [address] Christian Degroot Start: 01-30-2020 Mammography Maged mercer DO Work Phone: Plan of Treatment Date Care Activity Detail Author Start: 02-06-2025 Screening for malign ant neoplasm of cervix [facility] Start: 06-26-2024 End: 06-26-2024 Patient encounter procedure 06/26/2024 9:30 AM EST Office Visit AB [facility]RES [address] [place] [phone] Maged Contreras, DO [address] [place] [address] Arrived [facility] Comment on above: Arrived Start: 01-15-2024 Influenza vaccination Influenza Vacc ine (#1) [facility] Start: 01-29-2021 Screening for malign ant neoplasm of breast Mammogram [facility] Start: 1990 Screening for malign ant neoplasm of cervix Pap Smear [facility] Start: 1970 Screening for malign ant neoplasm of colon [facility] Immunizations Immunization Date Immunization Notes Care Provider Nazanin thornton 11-29-2020 Pfizer Purple Cap SARS-CoV-2 Vaccination Maged Contreras DO Work Phone: [facility] 11-09-2020 Pfizer Purple Cap SARS-CoV-2 Vaccination Maged Contreras DO Work Phone: [facility] 03-06-2020 influenza, high dose seasonal, preservative-free Maged Contreras DO Work Phone: [facility] 03-06-2020 influenza virus vacc ine, unspecified formulation Maged Contreras DO Work Phone: [facility] Payers Date Payer Category Payer Private Health Insurance [facility] [id number] 2023 Unknown 2023 Unknown [id number] 2022 Unknown [id number] 1970 Unknown [id number] 2.16840.1.099060.3.579. 2.647 1970 Unknown [id number] 2.16.840.1.387302.3.579. 2.593 1970 Unknown [id number] 2.16840.1.481799.3.579. 2.128 1970 Unknown [id number] 2.16.840.1.356669.3.579. 2.1286 1970 Unknown [id number] 2.16840.1.349843.3.579. 2.1285 1970 Unknown [id number] 2.16.840.1.880136.3.579. 2.128 1969 Unknown [id number] 2.16.840.1.231862.3.579. 2.1285 1970 Unknown [id number] 2.16840.1.110779.3.579. 2.128 1969 Unknown [id number] 2.16.840.1.847875.3.579. 2.1286 1970 Unknown [id number] 2.16.840.1.154811.3.579. 2.1286 1970 Unknown [id number] 2.840.1.491962.3.579. 2.128 1969 Unknown [id number] 2.16840.1.562075.3.579. 2.1285 1969 Unknown [id number] 2.840.1.399102.3.579. 2.1285 1969 Unknown [id number] 2.840.1.199803.3.579. 2.1285 1969 Unknown [id number] .840.1.625967.3.579. 2.1285 1969 Unknown [id number] .840.1.391908.3.579. 2.1285 1969 Unknown [id number] 07.01.830.1.224863.3.579. 2.1285 1969 Unknown [id number] .840.1.154638.3.579. 2.9 1969 Unknown [id number] .0.1.528450.3.579. 2.1258 1969 Unknown [id number] .840.1.965168.3.579. 2. 1970 Unknown [id number] 840.1.511934.3.579. 2. 1970 Unknown [id number] 840.1.643070.3.579. 2. 1970 Unknown [id number] .840.1.248467.3.579. 2. 1970 Unknown [id number] 2.840.1.657877.3.579. 2. 1970 Unknown [id number] 2840.1.125467.3.579. 2.196 1959 Unknown [id number] Unknown [id number] Social History Date Type Detail Facility Tobacco smoking stat [facility] Unknown if ever smoked [facility] Work Phone: Start: 1970 Sex Assigned At Female F [facility] Tobacco smoking stat [facility] Tobacco smoking consumption unknown [facility] Start: 1970 Sex assigned at Not on file [facility] Start: 06-26-2024 Gender identity Not on file [facility] Start: 06-26-2024 Tobacco smoking stat [facility] Smokes tobacco daily [facility] History of [...] back as needed documented in this encounter [facility] Evaluation note Note Date & Type Note Facility Evaluation note No assessment information availa [facility] Work Phone: Evaluation note Note Date & Type Note Facility Evaluation note Diagnosis Sensorineural hearing loss (SNHL) of left ear with unrestricted hearing of right ear- Primary Impacted cerumen of left ear Impacted cerumen documented in this encounter [facility] Healthcare Evaluation note Note Date & Type Note Facility Evaluation note Diagnosis Conductive hearing loss of left ear with unrestricted hearing of right ear- Primary documented in this encounter [facility] Healthcare Summary Purpose Family History No Family [...] content) DATE CREATED AUTHOR 04/03/2018 [facility] DATE CREATED AUTHOR AUTHOR'S ORGANIZ ATION 05/03/2018 [facility] DATE CREATED AUTHOR AUTHOR'S ORGANIZ ATION 04/09/2020 [facility] DATE CREATED AUTHOR AUTHOR'S ORGANIZ ATION 04/07/2024 [facility] DATE CREATED AUTHOR AUTHOR'S ORGANIZ ATION 04/28/2024 [facility] DATE CREATED AUTHOR AUTHOR'S ORGANIZ ATION 06/28/2024 [facility] DATE CREATED AUTHOR AUTHOR'S ORGANIZ ATION 07/30/2024 [facility] Care Teams (unrecognized sec tion and content) Team Status: Active Member Role Status Dates Tejas Richardson JR DO Primary Care Provider Active Team Status: Inactive Member Role Status Dates Tejas Richardson JR DO Primary Care Provider Active Start: March 15, 2024 End: March 15, 2024 Fela Roman MD Attending Provider Active Sta rt: March 15, 2024 End: March 15, 2024 Process Control Board Operator Relationship Specialty Start Date End Date Tejas Richardson MD [address] [place] [address] [id number] PCP - General Internal Medicine 06/26/24 Process Control Board Operator Relationship Specialty Start Date End Date Tejas Richardson MD [address] [place] [address] [id number] PCP - General Internal Medicine 06/26/24 Process Control Board Operator Relationship Specialty Start Date End Date Tejas Richardson MD [address] [place] [address] [id number] PCP - General Internal Medicine 06/26/24 Goals [...] BE BASED ON THE PRIMARY CLINICAL RECORDS. [facility] [employer] provides no warranty or guarantee of the accuracy or completeness of information in this document.
--- NOTE | 2024-08-08 10:12 | PM.CN ---
Consult Note: HPI Data of Consult Patient: known to practice within the last 3 years Requesting Physician: Anh Gatica NP Primary Care Provider: ULYSSES RICHARDSON DO Consult Narrative Reason for consult: low back, left leg pain Narrative: 54yof who presents for evaluation. low back pain. imaging shows multilevel degnerative changes, stenosis, fusion at l3-4. fusion performed last year, had infection and reoperated last year. has engaged in a series of provider directed home exercises >6 weeks, without lasting benefit. currently on celebrex 200mg BID and flexeril 10mg TID PRN with drowsiness from flexeril. recently underwent left SIJ injection with no improvement per pt/ pain today 6/10 sharp burning increased with standing, walking, pushing, pulling, stairs, bending, activity. CHELY 38%. cc:: CC: Anh Gatica NP Review of Systems ROS Status of ROS 10 or more systems reviewed and unremarkable except as noted in history and below Musculoskeletal Reports: back pain, extremity pain and joint pain PFSH PFSH Medical History DDD (degenerative disc disease) Osteopenia ?M85.80 - Other specified disorders of bone density and structure, unspecified site (ICD-10) Back pain ?M54.9 - Dorsalgia, unspecified (ICD-10) Depression ?F32.A - Depression, unspecified (ICD-10) Spinal stenosis ?M48.00 - Spinal stenosis, site unspecified (ICD-10) Neuropathy ?G62.9 - Polyneuropathy, unspecified (ICD-10) Migraine ?G43.909 - Migraine, unspecified, not intractable, without status migrainosus (ICD-10) GERD (gastroesophageal reflux disease) ?K21.9 - Gastro-esophageal reflux disease without esophagitis (ICD-10) Delayed recovery from anesthesia Menopause ?Z78.0 - Asymptomatic menopausal state (ICD-10) Surgical History S/P insertion of intrathecal pump ?Z98.890 - Other specified postprocedural states (ICD-10) S/P cervical spinal fusion ?Z98.1 - Arthrodesis status (ICD-10) Family History Other Family history of colon cancer Family history of diabetes mellitus Social History Within the past year, how often did you have a drink containing alcohol: never Score interpretation: A score less than 3 is consistent with normal alcohol consumption. Smoking status: Current every day smoker What tobacco products do you use: cigarettes Packs per day: 1 Years smoked: 39 Smoking pack-years: 39.00 Non-prescribed substance use: denies use Highest level of school completed/degree received: high school graduate Meds Home Medications and Allergies Home Medications ?Medication ?Instructions ?Recorded ?Confirmed ?Type duloxetine 60 mg capsule,delayed 60 mg PO DAILY 08/17/23 07/23/24 History release (Cymbalta) rosuvastatin 5 mg tablet (Crestor) 5 mg PO DAILY 08/17/23 07/23/24 History celecoxib 200 mg capsule (Celebrex) 200 mg PO BID #60 caps 06/11/24 07/23/24 Rx cyclobenzaprine 10 mg tablet 10 mg PO TID PRN muscle spasm #60 06/11/24 07/23/24 Rx tabs gabapentin enacarbil 600 mg 600 mg PO DAILY 06/11/24 07/23/24 History tablet,extended release ([facility]) Allergies Allergy/AdvReac Type Severity Reaction Status Date / Time morphine AdvReac overdose Verified 07/23/24 08:11 Exam Constitutional Documenting provider has reviewed patient's vital signs: yes Common normals: no apparent distress, oriented x3, healthy appearing, alert and well nourished General appearance: cooperative HENMT Common normals: normocephalic, hearing grossly normal bilaterally and moist oral mucous membranes Head and scalp: normocephalic Eye Common normals: PERRL Pupil: PERRL Neck & C-Spine Common normals: full ROM General: normal visual inspection Chest Common normals: inspection of chest normal Respiratory Common normals: normal respiratory effort, no retractions and no use of accessory muscles Back & Pelvis Lumbar spine/lower back: ROM limited, pain with ROM, lumbar spinal tenderness Lumbar spinal tenderness location: L4 and L5, paraspinal muscle tenderness and straight leg raise negative bilaterally Sacroiliac joints: SI joints normal Other: strength 5/5 in BLE negative left richardson(patricks), gaenslens, thigh thrust, compression test sensation intact BLE positive lumbar facet loading L4-S1 Neuro Common normals: oriented x3, CN's II-XII intact bilaterally, moves all extremities, no focal motor deficits, no sensory deficits noted and deep tendon reflexes 2+ bilaterally Sensorium/orientation: alert Motor exam: strength 5/5 throughout and no movement abnormalities noted Psych Common normals: mental status grossly normal, thought process normal, cooperative, affect normal, speech normal and activity/motor behavior normal Speech: normal speech Thought process: normal thought process Results Additional Findings Additional findings: If on a controlled substance or opioids, I have checked an [place]AR[place] report on this patient and there are no aberrancies noted in the prescribing history.??If on a controlled substance or opioid a drug screen was completed and reviewed within the last year, and if there has not been a drug screen completed we ordered one today to monitor higher risk, state monitored pain medication use. As part of providing excellent, safe, comprehensive care, the following was completed at our patient's visit: 1. A medication reconciliation and review to ensure accurate knowledge of current/active medications, including asking our patients to inform us about any suzm-vpb-omebsqz medications or herbal remedies/nutritional supplements/alternative remedies. 2. A review to specifically ensure our patients have had annual screening for screening for depression, screening for tobacco use, and screening for unhealthy alcohol use. For concerning screenings had a discussion with the patient, provided patient education, and recommended follow-up with primary care provider when appropriate. If patient noted with a risk of falling, they received education on strength, gait, and balance training to prevent future risk of falling. Portions of this note may have been carried over from the previous visit and updated as appropriate. Please note this office utilizes paper charting in addition to the electronic medical record. A list of current medications, vitals, and PMH is available there as the clinical staff outside of myself do not have access to School Admissions charting during the clinic day operations. As part of providing quality comprehensive care the current medications, vitals, and PMH were reviewed in the paper chart. Assessment and Plan Assessment and Plan (1) Lumbar stenosis with neurogenic claudication: Assessment and Plan: symptoms improved on exam (2) Lumbar spondylosis: (3) Sacroiliac joint dysfunction of left side: Assessment and Plan: symptoms improved on exam (4) Lumbar postlaminectomy syndrome: Plan 54yof who presents for evaluation. failed conservative measures, as noted. imaging reviewed, as noted. given symptoms and imaging, prudent to attempt bilateral L4-5 L5-S1 facet medial branch block x2 working towards RFA for lumbar spondylosis and facet mediated pain. risks vs benefits reviewed, procedure to be completed under fluoroscopy. continue HEP as toelrated. dc celebrex due to ineffectiveness, stop OTC nsaids, start mobic 7.5mg BID risks vs benefits reviewed. recommend pt dc horizant and start gabapentin 600mg BID for M48.062 and M96.1. risks vs benefits reviewed. f/u after injection
== END 2024-08-08 09:36 | disposition home or self-care (01) ==
LOC: PM 09:36
PROVIDERS: PCP Internal Medicine; Visit Provider Nurse Practitioner
DX: M48.062 Spinal stenosis, lumbar region with neurogenic claudication (principal); M47.816 Spondylosis without myelopathy or radiculopathy, lumbar region; M53.3 Sacrococcygeal disorders, not elsewhere classified; M96.1 Postlaminectomy syndrome, not elsewhere classified
CPT/HCPCS: G0463

== ENCOUNTER 2024-08-27 07:38 | Day surgery (SDC) | payer OTHER, SELFPAY ==
--- OUTSIDE RECORDS SUMMARY | 2024-08-27 07:43 | XMS_ITS | CCD ---
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 Designer Name Role Phone MAGED MURDOCK Unavailable Unavailable LINDSEY AGUILAR (PA) Unavailable Unavail able MONICA YAN (SUPERVISOR OF WAY) Unavailable Unavailabl TEJAS Benavidez JR Unavailable Unavail [...] CONTRERAS Attending Unavailable GINA RIDDLE Attending Unavailable [facility] Unavail able Hanane Jolly Attending U maite Jameson MD, Christian Singletary Attending Unavailable [facility] Unavail able Gisell CHONG, Christian Singletary Attending Unavailable [facility], [facility] Unavail able Gisell CHONG, Christian Singletary Attending Unavailable [facility], [facility] Unavail able [facility] Unavail able Zahira CHONG, Pavel Carr Attending Unavailable [facility] Unavail able Zahira CHONG, Pavel Carr [...] to moderate hearing loss above 4K Hz Critical [facility] hospital COMPLETE BLOOD COUNTon 04-24 Erythrocyte distribution width (RBC) [Ratio] 16.6 % High 11.5-15.0 [facility] Comment on above: Performed By: #### C KJ, LOGISTICS SUPPLY OFFICER #### [facility] ([id number]) [address] [place] [address] Hematocrit (Bld) [Volume fraction] 40.9 % Normal 35-47 [facility] Comment on above: Performed By: #### C KJ, LOGISTICS SUPPLY OFFICER #### [facility] ([id number]) [address] [place] [address] Hemoglobin (Bld) [Mass/Vol] 13.5 g/dL Normal 11.7-15.5 [facility] Comment on above: Performed By: #### C KJ, LOGISTICS SUPPLY OFFICER #### [facility] ([id number]) [address], [address] [place] [address] MCH (RBC) [Entitic mass] 32.0 pg Normal 27-34 [facility] Comment on above: Performed By: #### C KJ, LOGISTICS SUPPLY OFFICER #### [facility] ([id number]) [address], [address] [place] [address] MCHC (RBC) [Mass/Vol] 33.1 g/dL Normal 32-36 [facility] Comment on above: Performed By: #### C BC, LOGISTICS SUPPLY OFFICER #### [facility] ([id number]) [address] [place] [address] MCV (RBC) [Entitic vol] 97 fL Normal 80-100 [facility] Comment on above: Performed By: #### C BC, LOGISTICS SUPPLY OFFICER #### [facility] ([id number]) [address] [address] [place] [address] Platelet mean volume (Bld) [Entitic vol] 8.8 fL Normal 7-12 [facility] Comment on above: Performed By: #### C KJ, LOGISTICS SUPPLY OFFICER #### [facility] ([id number]) [address] [address] Platelets (Bld) [#/Vol] 328 10*3/uL Normal 150-450 [facility] Comment on above: Performed By: #### C KJ, LOGISTICS SUPPLY OFFICER #### [facility] ([id number]) [address] [address] RBC COUNT 4.23 X10E12/L Normal 3.80-5.20 [facility] Comment on above: Performed By: #### Jacqueline UNDERWOOD, LOGISTICS SUPPLY OFFICER #### [facility] ([id number]) [address] [address] WBC (Bld) [#/Vol] 9.0 10*3/uL Normal 4.0-11.0 [facility] Comment on above: Performed By: #### Jacqueline UNDERWOOD, LOGISTICS SUPPLY OFFICER #### [facility] ([id number]) [address] [address] CREATININEon 04-24-2024 Creatinine [Mass/Vol] 0.72 mg/dL Normal 0.40-1.00 [facility] Comment on above: Result Comment: METH OD TRACEABLE TO IDMS STANDARD Performed By: #### C KJ, LOGISTICS SUPPLY OFFICER #### [facility] ([id number]) [address] [address] eGFR (CKD-EPI) NON-RACE DEPENDENT >90 Normal >59 [facility] Comment on above: Result Comment: Reported eGFR is based on the CKD-EPI 2020 equation that does not use a race coefficient. Performed By: #### C KJ, LOGISTICS SUPPLY OFFICER #### [facility] ([id number]) [address], [address] [place] [address] COMPLETE BLOOD COUNTon 04-11 Erythrocyte distribution width (RBC) [Ratio] 16.9 % High 11.5-15.0 [facility] Comment on above: Performed By: #### C BC, LOGISTICS SUPPLY OFFICER #### [facility] ([id number]) [address], [address] [place] [address] Hematocrit (Bld) [Volume fraction] 41.0 % Normal 35-47 [facility] Comment on above: Performed By: #### C KJ, LOGISTICS SUPPLY OFFICER #### [facility] ([id number]) [address], [address] [place] [address] Hemoglobin (Bld) [Mass/Vol] 13.8 g/dL Normal 11.7-15.5 [facility] Comment on above: Performed By: #### C KJ, LOGISTICS SUPPLY OFFICER #### [facility] ([id number]) [address], [address] [place] [address] MCH (RBC) [Entitic mass] 32.3 pg Normal 27-34 [facility] Comment on above: Performed By: #### C KJ, LOGISTICS SUPPLY OFFICER #### [facility] ([id number]) [address], [address] [place] [address] MCHC (RBC) [Mass/Vol] 33.5 g/dL Normal 32-36 [facility] Comment on above: Performed By: #### C BC, LOGISTICS SUPPLY OFFICER #### [facility] ([id number]) [address], [address] [place] [address] MCV (RBC) [Entitic vol] 96 fL Normal 80-100 [facility] Comment on above: Performed By: #### C BC, LOGISTICS SUPPLY OFFICER #### [facility] ([id number]) [address], [address] [place] [address] Platelet mean volume (Bld) [Entitic vol] 9.1 fL Normal 7-12 [facility] Comment on above: Performed By: #### C KJ, LOGISTICS SUPPLY OFFICER #### [facility] ([id number]) [address] [address] Platelets (Bld) [#/Vol] 291 10*3/uL Normal 150-450 [facility] Comment on above: Performed By: #### C KJ, LOGISTICS SUPPLY OFFICER #### [facility] ([id number]) [address] [address] RBC COUNT 4.27 X10E12/L Normal 3.80-5.20 [facility] Comment on above: Performed By: #### C KJ, LOGISTICS SUPPLY OFFICER #### [facility] ([id number]) [address] [address] WBC (Bld) [#/Vol] 8.9 10*3/uL Normal 4.0-11.0 [facility] Comment on above: Performed By: #### C KJ, LOGISTICS SUPPLY OFFICER #### [facility] ([id number]) [address] [address] CREATININEon 04-11-2024 Creatinine [Mass/Vol] 0.73 mg/dL Normal 0.40-1.00 [facility] Comment on above: Result Comment: METH OD TRACEABLE TO IDMS STANDARD Performed By: #### C KJ, LOGISTICS SUPPLY OFFICER #### [facility] ([id number]) [address] [address] eGFR (CKD-EPI) NON-RACE DEPENDENT >90 Normal >59 [facility] Comment on above: Result Comment: Reported eGFR is based on the CKD-EPI 2020 equation that does not use a race coefficient. Performed By: #### C KJ, LOGISTICS SUPPLY OFFICER #### [facility] ([id number]) [address] [address] ASPIRATE CULTUREon Bacteria identified Aer cx Nom [...] <=1 F PIPERACIL/TAZOBACTAM S <=4 F Susceptible [facility] Comment on above: Performed By: #### 5 97-5 #### [facility] ([id number]) [address] [place] [address] COMPLETE BLOOD COUNTon 04-04 Erythrocyte distribution width (RBC) [Ratio] 16.6 % High 11.5-15.0 [facility] Comment on above: Performed By: #### Jacqueline ARAUJO [facility], 1987-09, 99815-3 #### [facility] ([id number]) [address] [place] [address] Hematocrit (Bld) [Volume fraction] 37.5 % Normal 35-47 [facility] Comment on above: Performed By: #### Jacqueline ARAUJO CMP, 1987-09, 99198-8 #### [facility] ([id number]) [address] [place] [address] Hemoglobin (Bld) [Mass/Vol] 12.7 g/dL Normal 11.7-15.5 [facility] Comment on above: Performed By: #### Jacqueline ARAUJO CMP, 1987-09, 79498-3 #### [facility] ([id number]) [address] [place] [address] MCH (RBC) [Entitic mass] 31.6 pg Normal 27-34 [facility] Comment on above: Performed By: #### Jacqueline ARAUJO CMP, 1987-09, 18808-9 #### [facility] ([id number]) [address], [address] [place] [address] MCHC (RBC) [Mass/Vol] 33.8 g/dL Normal 32-36 [facility] Comment on above: Performed By: #### Jacqueline ARAUJO CMP, 1987-09, 48896-9 #### [facility] ([id number]) [address], [address] [place] [address] MCV (RBC) [Entitic vol] 94 fL Normal 80-100 [facility] Comment on above: Performed By: #### Jacqueline ARAUJO CMP, 1987-09, 07597-5 #### [facility] ([id number]) [address] [place] [address] Platelet mean volume (Bld) [Entitic vol] 8.9 fL Normal 7-12 [facility] Comment on above: Performed By: #### Jacqueline ARAUJO CMP, 1987-09, 95498-7 #### [facility] ([id number]) [address], [address] [place] [address] Platelets (Bld) [#/Vol] 230 10*3/uL Normal 150-450 [facility] Comment on above: Performed By: #### Jacqueline ARAUJO CMP, 1987-09, 42410-6 #### [facility] ([id number]) [address], [address] [place] [address] RBC COUNT 4.01 X10E12/L Normal 3.80-5.20 [facility] Comment on above: Performed By: #### Jacqueline ARAUJO CMP, 1987-09, 09041-4 #### [facility] ([id number]) [address], [address] [place] [address] WBC (Bld) [#/Vol] 9.1 10*3/uL Normal 4.0-11.0 [facility] Comment on above: Performed By: #### Jacqueline ARAUJO CMP, 1987-09, 24464-3 #### [facility] ([id number]) [address] [place] [address] CREATININEon 04-04-2024 Creatinine [Mass/Vol] 0.60 mg/dL Normal 0.40-1.00 [facility] Comment on above: Result Comment: METH OD TRACEABLE TO IDMS STANDARD Performed By: #### C VAN [facility], 1987-09, 99196-5 #### [facility] ([id number]) [address], [facility] [address] [place] [address] eGFR (CKD-EPI) NON-RACE DEPENDENT >90 Normal >59 [facility] Comment on above: Result Comment: Reported eGFR is based on the CKD-EPI 2020 equation that does not use a race coefficient. Performed By: #### C ARANZA ARAUJO, 20944-5 #### [facility] ([id number]) [address], [address] [address] COMPLETE BLOOD COUNTon 03-27 Erythrocyte distribution width (RBC) [Ratio] 17.2 % High 11.5-15.0 [facility] Comment on above: Performed By: #### C ARANZA ARAUJO, 73076-8 #### [facility] ([id number]) [address] [address] Hematocrit (Bld) [Volume fraction] 40.0 % Normal 35-47 [facility] Comment on above: Performed By: #### C ARANZA ARAUJO, 13954-0 #### [facility] ([id number]) [address] [address] Hemoglobin (Bld) [Mass/Vol] 13.5 g/dL Normal 11.7-15.5 [facility] Comment on above: Performed By: #### C ARANZA ARAUJO, 16795-3 #### [facility] ([id number]) [address] [place] [address] MCH (RBC) [Entitic mass] 31.7 pg Normal 27-34 [facility] Comment on above: Performed By: #### Jacqueline ARAUJO CMP, 1987-09, 01526-0 #### [facility] ([id number]) [address], [address] [place] [address] MCHC (RBC) [Mass/Vol] 33.7 g/dL Normal 32-36 [facility] Comment on above: Performed By: #### Jacqueline ARAUJO CMP, 1987-09, 68271-1 #### [facility] ([id number]) [address] [place] [address] MCV (RBC) [Entitic vol] 94 fL Normal 80-100 [facility] Comment on above: Performed By: #### Jacqueline ARAUJO CMP, 1987-09, 53009-5 #### [facility] ([id number]) [address] [place] [address] Platelet mean volume (Bld) [Entitic vol] 8.5 fL Normal 7-12 [facility] Comment on above: Performed By: #### Jacqueline ARAUJO CMP, 1987-09, 31063-3 #### [facility] ([id number]) [address], [address] [place] [address] Platelets (Bld) [#/Vol] 332 10*3/uL Normal 150-450 [facility] Comment on above: Performed By: #### Jacqueline ARAUJO CMP, 1987-09, 19382-6 #### [facility] ([id number]) [address] [address] [place] [address] RBC COUNT 4.26 X10E12/L Normal 3.80-5.20 [facility] Comment on above: Performed By: #### Jacqueline ARAUJO CMP, 1987-09, 10388-5 #### [facility] ([id number]) [address], [address] [place] [address] WBC (Bld) [#/Vol] 10.4 10*3/uL Normal 4.0-11.0 [facility] Comment on above: Performed By: #### C ARANZA ARAUJO, 1987-09, 85123-7 #### [facility] ([id number]) [address] [place] [address] CREATININEon 03-27-2024 Creatinine [Mass/Vol] 0.69 mg/dL Normal 0.40-1.00 [facility] Comment on above: Result Comment: METH OD TRACEABLE TO IDMS STANDARD Performed By: #### C ARANZA ARAUJO, 1988-09, 13419-0 #### [facility] ([id number]) [address], [address] [address] eGFR (CKD-EPI) NON-RACE DEPENDENT >90 Normal >59 [facility] Comment on above: Result Comment: Reported eGFR is based on the CKD-EPI 2020 equation that does not use a race coefficient. Performed By: #### C ARANZA ARAUJO, 1987-09, 49320-6 #### [facility] ([id number]) [address] [address] COMPLETE BLOOD COUNTon 03-20 Erythrocyte distribution width (RBC) [Ratio] 19.0 % High 11.5-15.0 [facility] Comment on above: Performed By: #### C BC, LOGISTICS SUPPLY OFFICER #### [facility] ([id number]) [address], [facility] [address] [place] [address] Hematocrit (Bld) [Volume fraction] 37.9 % Normal 35-47 [facility] Comment on above: Performed By: #### C KJ, LOGISTICS SUPPLY OFFICER #### [facility] ([id number]) [address], [facility] [address] [place] [address] Hemoglobin (Bld) [Mass/Vol] 12.6 g/dL Normal 11.7-15.5 [facility] Comment on above: Performed By: #### C KJ, LOGISTICS SUPPLY OFFICER #### [facility] ([id number]) [address], [address] [place] [address] MCH (RBC) [Entitic mass] 31.8 pg Normal 27-34 [facility] Comment on above: Performed By: #### C KJ, LOGISTICS SUPPLY OFFICER #### [facility] ([id number]) [address], [address] [place] [address] MCHC (RBC) [Mass/Vol] 33.2 g/dL Normal 32-36 [facility] Comment on above: Performed By: #### Jacqueline UNDERWOOD, LOGISTICS SUPPLY OFFICER #### [facility] ([id number]) [address], [address] [place] [address] MCV (RBC) [Entitic vol] 96 fL Normal 80-100 [facility] Comment on above: Performed By: #### Jacqueline UNDERWOOD, LOGISTICS SUPPLY OFFICER #### [facility] ([id number]) [address], [address] [place] [address] Platelet mean volume (Bld) [Entitic vol] 8.4 fL Normal 7-12 [facility] Comment on above: Performed By: #### Jacqueline UNDERWOOD, LOGISTICS SUPPLY OFFICER #### [facility] ([id number]) [address], [address] [place] [address] Platelets (Bld) [#/Vol] 343 10*3/uL Normal 150-450 [facility] Comment on above: Performed By: #### C KJ, LOGISTICS SUPPLY OFFICER #### [facility] ([id number]) [address], [address] [place] [address] RBC COUNT 3.95 X10E12/L Normal 3.80-5.20 [facility] Comment on above: Performed By: #### Jacqueline UNDERWOOD, LOGISTICS SUPPLY OFFICER #### [facility] ([id number]) [address] [address] [place] [address] WBC (Bld) [#/Vol] 7.6 10*3/uL Normal 4.0-11.0 [facility] Comment on above: Performed By: #### C KJ, LOGISTICS SUPPLY OFFICER #### [facility] ([id number]) [address] [address] CREATININEon 03-20-2024 Creatinine [Mass/Vol] 0.70 mg/dL Normal 0.40-1.00 [facility] Comment on above: Result Comment: METH OD TRACEABLE TO IDMS STANDARD Performed By: #### C KJ, LOGISTICS SUPPLY OFFICER #### [facility] ([id number]) [address] [address] eGFR (CKD-EPI) NON-RACE DEPENDENT >90 Normal >59 [facility] Comment on above: Result Comment: Reported eGFR is based on the CKD-EPI 2020 equation that does not use a race coefficient. Performed By: #### C KJ, LOGISTICS SUPPLY OFFICER #### [facility] ([id number]) [address] [address] CBC AND AUTO DIFFon 03-16-20 24 ABSOLUTE BASOPHIL 0.0 X10E9/L Normal 0.0-0.2 [facility] Comment on above: Performed By: #### C ARANZA ARAUJO, 1988-09 #### [facility] ([id number]) [address] [address] ABSOLUTE NEUTROPHIL 5.5 X10E9/L Normal 1.5-6.6 [facility] Comment on above: Performed By: #### Jacqueline ARAUJO CMP, 1987-09 #### [facility] ([id number]) [address] [address] Basophils/100 WBC (Bld) 0.4 % Normal [facility] Comment on above: Performed By: #### Jacqueline ARAUJO CMP, 1987-09 #### [facility] ([id number]) [address], [facility] [address] [place] [address] Eosinophils (Bld) [#/Vol] 0.1 10*3/uL Normal 0.0-0.4 [facility] Comment on above: Performed By: #### Jacqueline ARAUJO [facility], 1987-09 #### [facility] ([id number]) [address], [facility] [address] [place] [address] Eosinophils/100 WBC (Bld) 1.9 % Normal [facility] Comment on above: Performed By: #### Jacqueline ARAUJO [facility], 1987-09 #### [facility] ([id number]) [address], [facility] [address] [place] [address] Erythrocyte distribution width (RBC) [Ratio] 18.1 % High 11.5-15.0 [facility] Comment on above: Performed By: #### Jacqueline ARAUJO [facility], 1987-09 #### [facility] ([id number]) [address] [address] [place] [address] Hematocrit (Bld) [Volume fraction] 39.2 % Normal 35-47 [facility] Comment on above: Performed By: #### Jacqueline ARAUJO [facility], 1987-09 #### [facility] ([id number]) [address] [place] [address] Hemoglobin (Bld) [Mass/Vol] 13.4 g/dL Normal 11.7-15.5 [facility] Comment on above: Performed By: #### Jacqueline ARAUJO [facility], 1987-09 #### [facility] ([id number]) [address] [address] [place] [address] Lymphocytes (Bld) [#/Vol] 1.7 10*3/uL Normal 1.0-3.5 [facility] Comment on above: Performed By: #### Jacqueline ARAUJO CMP, 1987-09 #### [facility] ([id number]) [address] [address] [place] [address] Lymphocytes/100 WBC (Bld) 22.1 % Normal [facility] Comment on above: Performed By: #### Jacqueline ARAUJO CMP, 1987-09 #### [facility] ([id number]) [address], [address] [place] [address] MCH (RBC) [Entitic mass] 32.2 pg Normal 27-34 [facility] Comment on above: Performed By: #### Jacqueline ARAUJO CMP, 1987-09 #### [facility] ([id number]) [address], [address] [place] [address] MCHC (RBC) [Mass/Vol] 34.2 g/dL Normal 32-36 [facility] Comment on above: Performed By: #### Jacqueline ARAUJO CMP, 1987-09 #### [facility] ([id number]) [address], [address] [place] [address] MCV (RBC) [Entitic vol] 94 fL Normal 80-100 [facility] Comment on above: Performed By: #### Jacqueline ARAUJO CMP, 1987-09 #### [facility] ([id number]) [address], [address] [place] [address] Monocytes (Bld) [#/Vol] 0.5 10*3/uL Normal 0-0.9 [facility] Comment on above: Performed By: #### Jacqueline ARAUJO CMP, 1987-09 #### [facility] ([id number]) [address] [address] [place] [address] Monocytes/100 WBC (Bld) 6.5 % Normal [facility] Comment on above: Performed By: #### Jacqueline ARAUJO CMP, 1987-09 #### [facility] ([id number]) [address] [address] [place] [address] Neutrophils/100 WBC (Bld) 69.1 % Normal [facility] Comment on above: Performed By: #### Jacqueline ARAUJO CMP, 1987-09 #### [facility] ([id number]) [address], [address] [place] [address] Platelet mean volume (Bld) [Entitic vol] 8.1 fL Normal 7-12 [facility] Comment on above: Performed By: #### Jacqueline ARAUJO CMP, 1987-09 #### [facility] ([id number]) [address], [facility] [address] [place] [address] Platelets (Bld) [#/Vol] 358 10*3/uL Normal 150-450 [facility] Comment on above: Performed By: #### Jacqueline ARAUJO CMP, 1987-09 #### [facility] ([id number]) [address], [facility] [address] [place] [address] RBC COUNT 4.17 X10E12/L Normal 3.80-5.20 [facility] Comment on above: Performed By: #### Jacqueline ARAUJO CMP, 1987-09 #### [facility] ([id number]) [address], [facility] [address] [place] [address] WBC (Bld) [#/Vol] 7.9 10*3/uL Normal 4.0-11.0 [facility] Comment on above: Performed By: #### Jacqueline ARAUJO CMP, 1987-09 #### [facility] ([id number]) [address], [facility] [address] [place] [address] COMPREHENSIVE METABOLIC PANE Alexandru 03-16-2024 Albumin [Mass/Vol] 3.4 g/dL Normal 3.2-5.3 [facility] Comment on above: Performed By: #### Jacqueline ARAUJO CMP, 1987-09 #### [facility] ([id number]) [address], [address] [place] [address] ALP [Catalytic activity/Vol] 52 U/L Normal 39-130 [facility] Comment on above: Performed By: #### C ARANZA ARAUJO, 1987-09 #### [facility] ([id number]) [address], [address] [place] [address] ALT [Catalytic activity/Vol] 12 U/L Normal 0-31 [facility] Comment on above: Performed By: #### C VAN [facility], 1987-09 #### [facility] ([id number]) [address], [address] [place] [address] Anion gap [Moles/Vol] 11 mmol/L Normal 5-15 [facility] Comment on above: Performed By: #### Jacqueline ARAUJO CMP, 1987-09 #### [facility] ([id number]) [address], [address] [place] [address] AST [Catalytic activity/Vol] 17 U/L Normal 0-41 [facility] Comment on above: Performed By: #### Jacqueline ARAUJO [facility], 1987-09 #### [facility] ([id number]) [address], [address] [place] [address] Bilirubin [Mass/Vol] 0.4 mg/dL Normal 0.3-1.2 [facility] Comment on above: Performed By: #### Jacqueline ARAUJO [facility], 1987-09 #### [facility] ([id number]) [address], [address] [place] [address] Calcium [Mass/Vol] 9.7 mg/dL Normal 8.5-10.5 [facility] Comment on above: Performed By: #### C VAN [facility], 1987-09 #### [facility] ([id number]) [address], [address] [place] [address] Chloride [Moles/Vol] 109 mmol/L Normal 98-109 [facility] Comment on above: Performed By: #### Jacqueline ARAUJO CMP, 1987-09 #### [facility] ([id number]) [address], [address] [place] [address] CO2 [Moles/Vol] 20 mmol/L Low 22-32 [facility] Comment on above: Performed By: #### Jacqueline ARAUJO CMP, 1987-09 #### [facility] ([id number]) [address] [place] [address] Creatinine [Mass/Vol] 0.75 mg/dL Normal 0.40-1.00 [facility] Comment on above: Result Comment: METH OD TRACEABLE TO IDMS STANDARD Performed By: #### Jacqueline ARAUJO CMP, 1987-09 #### [facility] ([id number]) [address] [address] eGFR (CKD-EPI) NON-RACE DEPENDENT >90 Normal >59 [facility] Comment on above: Result Comment: Reported eGFR is based on the CKD-EPI 2020 equation that does not use a race coefficient. Performed By: #### Jacqueline ARAUJO CMP, 1987-09 #### [facility] ([id number]) [address] [address] Glucose [Mass/Vol] 88 mg/dL Normal 65-99 [facility] Comment on above: Performed By: #### Jacqueline ARAUJO [facility], 1987-09 #### [facility] ([id number]) [address] [place] [address] Potassium [Moles/Vol] 3.9 mmol/L Normal 3.5-5.0 [facility] Comment on above: Performed By: #### Jacqueline ARAUJO CMP, 1987-09 #### [facility] ([id number]) [address] [place] [place] [address] Protein [Mass/Vol] 6.4 g/dL Normal 6.0-8.0 [facility] Comment on above: Performed By: #### Jacqueline ARAUJO CMP, 1988-09 #### [facility] ([id number]) [address] [place] [address] Sodium [Moles/Vol] 140 mmol/L Normal 134-146 [facility] Comment on above: Performed By: #### Jacqueline ARAUJO CMP, 1987-09 #### [facility] ([id number]) [address], [address] [place] [address] Urea nitrogen [Mass/Vol] 9 mg/dL Normal 5-23 [facility] Comment on above: Performed By: #### Jacqueline ARAUJO CMP, 1987-09 #### [facility] ([id number]) [address], [address] [place] [address] CRP [Mass/Vol]on 03-16-2024 C REACTIVE PROTEIN 0.6 mg/dL Normal 0.000-0.744 [facility] Comment on above: Performed By: #### Jacqueline ARAUJO CMP, 1987-09 #### [facility] ([id number]) [address], [address] [place] [address] BLOOD CULTUREon 03-13-2024 Bacteria identified Aer cx Nom (Bld) CULTURE RESULTS NO GROWTH 5 DAYS Normal [facility] Bacteria identified Aer cx Nom (Bld) CULTURE RESULTS NO GROWTH 5 DAYS Normal [facility] CBC AND AUTO DIFFon 03-13-20 24 ABSOLUTE BASOPHIL 0.0 X10E9/L Normal 0.0-0.2 [facility] Comment on above: Performed By: #### Jacqueline ARAUJO CMP, 1987-09, 13566-7 #### [facility] ([id number]) [address], [address] [place] [address] ABSOLUTE NEUTROPHIL 5.4 X10E9/L Normal 1.5-6.6 [facility] Comment on above: Performed By: #### Jacqueline ARAUJO CMP, 1987-09, 94850-1 #### [facility] ([id number]) [address], [address] [place] [address] Basophils/100 WBC (Bld) 0.4 % Normal [facility] Comment on above: Performed By: #### Jacqueline RAAUJO [facility], 1987-09, 75565-4 #### [facility] ([id number]) [address] [place] [address] Eosinophils (Bld) [#/Vol] 0.1 10*3/uL Normal 0.0-0.4 [facility] Comment on above: Performed By: #### Jacqueline ARAUJO [facility], 1987-09, 38937-4 #### [facility] ([id number]) [address], [facility] [address] [place] [address] Eosinophils/100 WBC (Bld) 1.6 % Normal [facility] Comment on above: Performed By: #### Jacqueline ARAUJO [facility], 1987-09, 69287-2 #### [facility] ([id number]) [address], [address] [place] [address] Erythrocyte distribution width (RBC) [Ratio] 18.4 % High 11.5-15.0 [facility] Comment on above: Performed By: #### Jacqueline ARAUJO [facility], 64186-3 #### [facility] ([id number]) [address] [place] [address] Hematocrit (Bld) [Volume fraction] 39.0 % Normal 35-47 [facility] Comment on above: Performed By: #### Jacquleine ARAUJO [facility], 60615-9 #### [facility] ([id number]) [address], [address] [place] [address] Hemoglobin (Bld) [Mass/Vol] 13.7 g/dL Normal 11.7-15.5 [facility] Comment on above: Performed By: #### Jacqueline ARAUJO CMP, 1987-09, 39328-8 #### [facility] ([id number]) [address], [address] [place] [address] Lymphocytes (Bld) [#/Vol] 1.9 10*3/uL Normal 1.0-3.5 [facility] Comment on above: Performed By: #### Jacqueline ARAUJO [facility], 1987-09, 76683-8 #### [facility] ([id number]) [address], [address] [place] [address] Lymphocytes/100 WBC (Bld) 24.0 % Normal [facility] Comment on above: Performed By: #### Jacqueline ARAUJO [facility], 1987-09, 69115-6 #### [facility] ([id number]) [address], [facility] [address] [place] [address] MCH (RBC) [Entitic mass] 32.5 pg Normal 27-34 [facility] Comment on above: Performed By: #### Jacqueline ARAUJO [facility], 1987-09, 23795-5 #### [facility] ([id number]) [address], [address] [place] [address] MCHC (RBC) [Mass/Vol] 35.0 g/dL Normal 32-36 [facility] Comment on above: Performed By: #### Jacqueline ARAUJO [facility], 1987-09, 56992-7 #### [facility] ([id number]) [address], [address] [place] [address] MCV (RBC) [Entitic vol] 93 fL Normal 80-100 [facility] Comment on above: Performed By: #### Jacqueline ARAUJO [facility], 1987-09, 10797-5 #### [facility] ([id number]) [address], [address] [place] [address] Monocytes (Bld) [#/Vol] 0.4 10*3/uL Normal 0-0.9 [facility] Comment on above: Performed By: #### Jacqueline ARAUJO [facility], 1987-09, 25183-7 #### [facility] ([id number]) [address] [place] [address] Monocytes/100 WBC (Bld) 4.7 % Normal [facility] Comment on above: Performed By: #### Jacqueline ARAUJO [facility], 1987-09, 54448-7 #### [facility] ([id number]) [address], [facility] [address] [place] [address] Neutrophils/100 WBC (Bld) 69.3 % Normal [facility] Comment on above: Performed By: #### Jacqueline ARAUJO [facility], 1987-09, 72826-0 #### [facility] ([id number]) [address], [facility] [address] [place] [address] Platelet mean volume (Bld) [Entitic vol] 7.9 fL Normal 7-12 [facility] Comment on above: Performed By: #### Jacqueline ARAUJO [facility], 1987-09, 13205-4 #### [facility] ([id number]) [address], [address] [place] [address] Platelets (Bld) [#/Vol] 376 10*3/uL Normal 150-450 [facility] Comment on above: Performed By: #### Jacqueline ARAUJO [facility], 1987-09, 95274-6 #### [facility] ([id number]) [address], [facility] [address] [place] [address] RBC COUNT 4.20 X10E12/L Normal 3.80-5.20 [facility] Comment on above: Performed By: #### Jacqueline ARAUJO [facility], 1987-09, 73717-2 #### [facility] ([id number]) [address], [facility] [address] [place] [address] WBC (Bld) [#/Vol] 7.8 10*3/uL Normal 4.0-11.0 [facility] Comment on above: Performed By: #### Jacqueline ARAUJO CMP, 1987-09, 90028-3 #### [facility] ([id number]) [address], [address] [place] [address] COMPREHENSIVE METABOLIC PANE Alexandru 03-13-2024 Albumin [Mass/Vol] 3.4 g/dL Normal 3.2-5.3 [facility] Comment on above: Performed By: #### C BCA, CMP, 1987-09, 38248-6 #### [facility] ([id number]) [address], [address] [place] [address] ALP [Catalytic activity/Vol] 57 U/L Normal 39-130 [facility] Comment on above: Performed By: #### C BCA, CMP, 1987-09, 93146-2 #### [facility] ([id number]) [address], [address] [place] [address] ALT [Catalytic activity/Vol] 14 U/L Normal 0-31 [facility] Comment on above: Performed By: #### C BCA, CMP, 1987-09, 27802-9 #### [facility] ([id number]) [address], [address] [place] [address] Anion gap [Moles/Vol] 8 mmol/L Normal 5-15 [facility] Comment on above: Performed By: #### C BCA, CMP, 1987-09, 98888-4 #### [facility] ([id number]) [address], [address] [place] [address] AST [Catalytic activity/Vol] 19 U/L Normal 0-41 [facility] Comment on above: Performed By: #### C BCA, CMP, 1987-09, 33119-8 #### [facility] ([id number]) [address], [address] [place] [address] Bilirubin [Mass/Vol] 0.4 mg/dL Normal 0.3-1.2 [facility] Comment on above: Performed By: #### C BCA, CMP, 1987-09, 58358-4 #### [facility] ([id number]) [address], [address] [place] [address] Calcium [Mass/Vol] 9.3 mg/dL Normal 8.5-10.5 [facility] Comment on above: Performed By: #### C ARANZA ARAUJO, 1988-09, 85017-1 #### [facility] ([id number]) [address], [address] [place] [address] Chloride [Moles/Vol] 105 mmol/L Normal 98-109 [facility] Comment on above: Performed By: #### C VAN [facility], 1987-09, 61411-8 #### [facility] ([id number]) [address], [address] [place] [address] CO2 [Moles/Vol] 28 mmol/L Normal 22-32 [facility] Comment on above: Performed By: #### Jacqueline ARAUJO CMP, 1987-09, 50584-9 #### [facility] ([id number]) [address], [address] [place] [address] Creatinine [Mass/Vol] 0.82 mg/dL Normal 0.40-1.00 [facility] Comment on above: Result Comment: METH OD TRACEABLE TO IDMS STANDARD Performed By: #### Jacqueline ARAUJO CMP, 1987-09, 45451-6 #### [facility] ([id number]) [address], [address] [place] [address] GFR/1.73 sq M.predicted among non-blacks MDRD (S/P/Bld) [Vol rate/Area] 84 mL/min/{1.73_m2} Normal >59 [facility] Comment on above: Result Comment: Reported eGFR is based on the CKD-EPI 2020 equation that does not use a race coefficient. Performed By: #### Jacqueline ARAUJO CMP, 1987-09, 88243-2 #### [facility] ([id number]) [address], [address] [place] [address] Glucose [Mass/Vol] 97 mg/dL Normal 65-99 [facility] Comment on above: Performed By: #### C VAN [facility], 1987-09, 53450-1 #### [facility] ([id number]) [address], [address] [place] [address] Potassium [Moles/Vol] 3.1 mmol/L Low 3.5-5.0 [facility] Comment on above: Performed By: #### C VAN [facility], 1987-09, 91082-3 #### [facility] ([id number]) [address], [address] [place] [address] Protein [Mass/Vol] 6.3 g/dL Normal 6.0-8.0 [facility] Comment on above: Performed By: #### Jacqueline ARAUJO [facility], 11098-9 #### [facility] ([id number]) [address], [address] [place] [address] Sodium [Moles/Vol] 141 mmol/L Normal 134-146 [facility] Comment on above: Performed By: #### Jacqueline ARAUJO [facility], 54760-8 #### [facility] ([id number]) [address], [address] [place] [address] Urea nitrogen [Mass/Vol] 8 mg/dL Normal 5-23 [facility] Comment on above: Performed By: #### Jacqueline ARAUJO [facility], 32719-0 #### [facility] ([id number]) [address], [address] [place] [address] CRP [Mass/Vol]on 03-13-2024 C REACTIVE PROTEIN 0.7 mg/dL Normal 0.000-0.744 [facility] Comment on above: Performed By: #### C VAN [facility], 52451-4 #### [facility] ([id number]) [address], [address] [place] [address] ESR Photometric method (Bld) [Velocity]on 03-13-2024 ESR, ERYTHROCYTE SEDIMENTATION RATE 39 mm/h High 0-30 [facility] Comment on above: Performed By: #### C BCA, [facility], 1988-5, 62329-6 #### [facility] ([id number]) [address], [address] [place] [address] ASPIRATE CULTUREon Bacteria identified Aer cx Nom [...] <=1 F PIPERACIL/TAZOBACTAM S <=4 F Susceptible [facility] Comment on above: Performed By: #### 5 97-5 #### [facility] ([id number]) [address] AND DIFFon 2023 BODY FLUID COMMENT Interpreta tion--- ----- Normal [facility] Comment on above: Result Comment: Refe rence values for this fluid type are undefined, as fluid accumulation is considered abnormal. Performed By: #### B FCT #### [facility] ([id number]) [address], [address] [place] [address] FLUID CLARITY CLOUDY Normal [facility] Comment on above: Performed By: #### B FCT #### [facility] ([id number]) [address], [address] [place] [address] FLUID COLOR HONG Normal [facility] Comment on above: Performed By: #### B FCT #### [facility] ([id number]) [address], [address] [place] [address] FLUID LYMPHOCYTE 5 % Normal [facility] Comment on above: Performed By: #### B FCT #### [facility] ([id number]) [address], [address] [place] [address] FLUID NEUTROPHILS 75 % Normal [facility] Comment on above: Performed By: #### B FCT #### [facility] ([id number]) [address], [address] [place] [address] [place] [address] /uL Normal [facility] Comment on above: Performed By: #### B FCT #### [facility] ([id number]) [address], [address] [place] [address] FLUID SPECIMEN TYPE ASPIRATE Normal [facility] Comment on above: Result Comment: ABDO MISAEL PUMP POCKET Performed By: #### B FCT #### [facility] ([id number]) [address], [address] [place] [address] MACROPHAGES 20 % Normal [facility] Comment on above: Performed By: #### B FCT #### [facility] ([id number]) [address] [place] [address] 4888 /uL Normal [facility] Comment on above: Performed By: #### B FCT #### [facility] ([id number]) [address] [place] [address] Infectious Disease Office/ in Noteon 11-10-2023 Infectious Disease Office/Clinic Note Assessment/Plan 1. Postoperative wound infection Plan: Unfortunately there is no other good oral options for coverage of Pseudomonas. She is advised to stop taking doxycycline as this will help her symptoms. I did call Dr. Montes his PA Hammad called back. She advised me to send patient back to [facility]. This is where she had her surgery done. She may need to MRI possible washout. This commercial loan underwriter did call [facility] talk to charge nurse Dagmar gave her [...] and fusion by Dr. Saint Gregory at [facility]. She was discharged home on the . She was discharged on cephalexin for 10 days. She was taken back to surgery on October 11 due to persistent drainage and wound dehiscence. She had a fluid collection which was most consistent with seroma/infection . The surgery was done in [place]. Cultures grew Pseudomonas and she was discharged [...] data Procedure/Surgical History Neck Surgery Stomach Pain Andrew Surgery (09/02/2023) incision & drainage (10/12/2023) Medications cyclobenzaprine 10 mg oral tablet, 45 EA, 0 Refill(s), TAKE 1 TABLET BY MOUTH THREE TIMES DAILY NEEDED FOR MUSCLE SPASMS DULoxetine 60 mg oral delayed release capsule, 90 EA, 0 Refill(s), TAKE 1 CAPSULE BY MOUTH EVERY DAY ibuprofen 800 mg oral tablet, 270 EA, 0 Refill(s) Potassium Chloride ( (more content not included)... Normal [facility] .eGFRon 10-26-2023 GFR/1.73 sq M.predicted MDRD (S/P/Bld) [Vol rate/Area] mL/min/{1.73_m2} Normal >=60 [facility] Comment on above: Order Comment: Order added by Discern rule Result Comment: [facility] have implemented the eGFR calculation [...] years Performed By: #### E GFR #### [address] [address] Basic Metabolic Profileon Anion gap [Moles/Vol] 10 mmol/L Normal -12 [facility] Comment on above: Performed By: #### C [id number] #### [address] [address] Calcium [Mass/Vol] 9.4 mg/dL Normal 8.5-10.3 [facility] Comment on above: Performed By: #### C [id number] #### [address] [address] Chloride [Moles/Vol] 101 mmol/L Normal 98-110 [facility] Comment on above: Performed By: #### C [id number] #### [address] [address] CO2 [Moles/Vol] 26 mmol/L Normal 22-32 [facility] Comment on above: Performed By: #### C [id number] #### [address] [address] Creatinine [Mass/Vol] 0.81 mg/dL Normal 0.44-1.03 [facility] Comment on above: Performed By: #### C [id number] #### [address] [address] Glucose [Mass/Vol] 82 mg/dL Normal 70-99 [facility] Comment on above: Performed By: #### C [id number] #### [address] [address] Potassium [Moles/Vol] 2.7 mmol/L Low 3.4-4.8 [facility] Comment on above: Performed By: #### C [id number] #### [address] [address] Sodium [Moles/Vol] 137 mmol/L Normal 133-142 [facility] Comment on above: Performed By: #### C [id number] #### [address] [address] Urea nitrogen [Mass/Vol] 15 mg/dL Normal 8-26 [facility] Comment on above: Performed By: #### C [id number] #### [address] [address] Urea nitrogen/Creatinin e [Mass ratio] 18.5 mg/mg Normal 10.0-20.0 [facility] Comment on above: Performed By: #### C [id number] #### [address] [address] CBC w/ Diffon 10-26-2023 Erythrocyte distribution width (RBC) [Ratio] 15.2 % High 11.6-14.8 [facility] Comment on above: Performed By: #### C BC #### [address] [address] Hematocrit (Bld) [Volume fraction] 38.9 % Normal 36.0-46.0 [facility] Comment on above: Performed By: #### C BC #### [address] [address] Hemoglobin (Bld) [Mass/Vol] 12.9 g/dL Normal 12.0-16.0 [facility] Comment on above: Performed By: #### C BC #### [address] [address] MCH (RBC) [Entitic mass] 31.5 pg Normal 27.0-35.0 [facility] Comment on above: Performed By: #### C BC #### [address] [address] MCHC 33.1 % Normal 31.0-37.0 [facility] Comment on above: Performed By: #### C BC #### [address] [address] MCV (RBC) [Entitic vol] 95.0 fL Normal 80.0-100.0 [facility] Comment on above: Performed By: #### C BC #### [address] [address] Platelet 367 x10*3/mcL Normal 150-450 [facility] Comment on above: Performed By: #### C BC #### [address] [address] Platelet mean volume (Bld) [Entitic vol] 7.7 fL Normal 6.7-10.6 [facility] Comment on above: Performed By: #### C BC #### [address] [address] RBC 4.10 x10*6/mcL Normal 3.80-5.20 [facility] Comment on above: Performed By: #### C BC #### [address] [address] WBC 12.3 x10*3/mcL High 4.5-11.0 [facility] Comment on above: Performed By: #### C BC #### [address] [address] CRPon 10-26-2023 CRP 2.71 mg/dL High 0.00-0.75 [facility] Comment on above: Result Comment: CRP measurement is useful for assessment of non-specific INFLAMMATORY RESPONSE to infection or injury AND is a sensitive MARKER of ACUTE INFLAMMATION including CARDIAC RISK ASSESSMENT. CARDIAC patients with elevated CRP are POTENTIALLY at a HIGHER RISK OF FUTURE CARDIAC EVENTS. Performed By: #### C RP #### [address] [address] Diff Autoon 10-26-2023 Baso Absolute 0.1 x10*3/mcL Normal 0.0-0.2 [facility] Comment on above: Performed By: #### . Automated Diff #### [address] [address] Basophils/100 WBC (Bld) 0.5 % Normal 0.0-1.5 [facility] Comment on above: Performed By: #### . Automated Diff #### [address] [address] Eos Absolute 0.3 x10*3/mcL Normal 0.0-0.4 [facility] Comment on above: Performed By: #### . Automated Diff #### [address] [address] Eosinophils/100 WBC (Bld) 2.1 % Normal 0.0-5.4 [facility] Comment on above: Performed By: #### . Automated Diff #### [address] [address] Lymph Absolute 2.2 x10*3/mcL Normal 1.0-4.8 [facility] Comment on above: Performed By: #### . Automated Diff #### [address] [address] Lymphocytes/100 WBC (Bld) 18.0 % Low 27.2-40.8 [facility] Comment on above: Performed By: #### . Automated Diff #### [address] [address] [place] Absolute 0.6 x10*3/mcL Normal 0.1-1.1 [facility] Comment on above: Performed By: #### . Automated Diff #### [address] [address] Monocytes/100 WBC (Bld) 4.9 % Normal 3.7-11.9 [facility] Comment on above: Performed By: #### . Automated Diff #### [address] [address] Neutro Absolute 9.2 x10*3/mcL High 1.8-7.7 [facility] Comment on above: Performed By: #### . Automated Diff #### [place] [address] Neutro Auto 74.5 % High 47.2-70.8 [facility] Comment on above: Performed By: #### . Automated Diff #### [address] [address] ESRon 10-26-2023 Sed Rate 67 mm/hr High 0-30 [facility] Comment on above: Performed By: #### E SR #### [address] [address] Infectious Disease Office/ in Noteon 10-26-2023 Infectious [...] tabs, 0 Refill(s), 11/09/23 10:12:00 EDT, Pharmacy: [facility] #[id number] Basic Metabolic Profile C-Reactive Protein Complete Blood Count w/ Differential Erythrocyte Sedimentation Rate 2. Pseudomonas infection As above Ordered: levoFLOXacin, 1 tabs, Oral, q24hr, X 14 days, # 14 tabs, 0 Refill(s), 11/09/23 10:12:00 EDT, Pharmacy: [facility] #[id number] Basic Metabolic Profile C-Reactive Protein Complete Blood Count w/ Differential Erythrocyte Sedimentation Rate Chief Complaint New pt I&D done at [facility], possible infection of back. History of Present Illness Seen today for persistent drainage after back surgery on September 01. She had L3-L4 decompression and fusion by Dr. Saint Gregoyr at [facility]. She was discharged home on the . She was discharged on cephalexin for 10 days. She was taken back to surgery on October 11 due to persistent drainage and wound dehiscence. She had a fluid collection which was most consistent with seroma/infection . The surgery was done in [place]. Cultures grew Pseudomonas and she was discharged on Cipro. She could not tolerate it and stopped it after 3 days. After the 10 days of cephalexin initially, she received cephalexin September 27 from [facility]. She apparently got doxycycline and azithromycin [...] data Procedure/Surgical History Neck Surgery Stomach Pain Andrew Surgery (09/02/2023) incision & drainage (10/12/2023) Medications [...] SARS-CoV-2 (COVID-19 (more content not included)... Normal [facility] Provider Letteron 10-26-2023 Provider Letter (Inserted Image. Shelly ble to display) Tejas Richardson DO [address] [place] [address] Re: Radha Duncan Date of Visit: 10/26/[address] Richardson, Thank you for your referral to my office. Attached you will find the most recent office visit note. Please call if you have any questions or concerns. Sincerely, Pavel Rodriges MD [address] [place] [address], [address] [place] [address] The following document(s) were included in the letter: October 26, 2023 10:13:55 EDT - (10/26/2023) Infectious Disease Office Visit Note Normal [facility] ELECTROLYTESon 08-22-2023 Anion gap [Moles/Vol] 8 mmol/L Normal 5-15 [facility] Comment on above: Performed By: #### E LEC #### [facility] ([id number]) [address] [place] [address] Chloride [Moles/Vol] 110 mmol/L High 98-109 [facility] Comment on above: Performed By: #### E LEC #### [facility] ([id number]) [address], [address] [place] [address] CO2 [Moles/Vol] 23 mmol/L Normal 22-32 [facility] Comment on above: Performed By: #### E LEC #### [facility] ([id number]) [address], [address] [place] [address] Potassium [Moles/Vol] 4.4 mmol/L Normal 3.5-5.0 [facility] Comment on above: Performed By: #### E LEC #### [facility] ([id number]) [address] [place] [address] Sodium [Moles/Vol] 141 mmol/L Normal 134-146 [facility] Comment on above: Performed By: #### E LEC #### [facility] ([id number]) [address] [place] [address] CARDIAC AZAR ADMITon 020 CK [Catalytic activity/Vol] 915 U/L Critically high 30-135 [facility] Comment on above: Result Comment: Test repeated. Critical value verified. Performed By: #### D RUGRPD #### [facility] [address] [place] [address] Christian Mikayla CK.MB [Mass/Vol] 12.82 ng/mL Critically high <=2.[address] [facility] Comment on above: Result Comment: Test repeated. Critical value verified. Performed By: #### D RUGRPD #### [facility] [address] [place] [address] Christian Mikayla INR Coag (Bld) [Relative time] SEE BELOW Normal [facility] Comment on above: Result Comment: <0.0 34 ng/ml NEGATIVE 0.034-0.119 INDETERMINATE 0.120 AMI CUT OFF Performed By: #### D RUGRPD #### [facility] [address] [place], [place] [id number] Christian Mikayla ÁNGEL 96.0 ng/mL Critically high <=61.5 [facility] Comment on above: Performed By: #### D RUGRPD #### [facility] [address] [place], [place] [id number] Christian Mikayla TROP 0.028 ng/mL Normal <=0.034 [facility] Comment on above: Performed By: #### D RUGRPD #### [facility] [address] [place] [address] Christian Mikayla CK [Catalytic activity/Vol] 1282 U/L Critically high 30-135 [facility] Comment on above: Result Comment: Test repeated. Critical value verified. Performed By: #### T ROP, CMP #### [facility] [address] [place] [address] Christian Mikayal CK.MB [Mass/Vol] 24.63 ng/mL Critically high <=2.37 [facility] Comment on above: Result Comment: Test repeated. Critical value verified. Performed By: #### T ROP, CMP #### [facility] [address] [place], [place] [id number] Christian Mikayla INR Coag (Bld) [Relative time] SEE BELOW Normal [facility] Comment on above: Result Comment: <0.0 34 ng/ml NEGATIVE 0.034-0.119 INDETERMINATE 0.120 AMI CUT OFF Performed By: #### T ROP, CMP #### [facility] [address] [place] [address] Christian Mikayla ÁNGEL 235.0 ng/mL Critically high <=61.5 [facility] Comment on above: Performed By: #### T ROP, CMP #### [facility] [address] [place] [address] Christian Mikayla TROP 0.033 ng/mL Normal <=0.034 [facility] Comment on above: Performed By: #### T ROP, CMP #### [facility] [address] [place] [address] Christian Mikayla CBC AUTO DIFFon 03-07-2020 Basophils (Bld) [#/Vol] 0.0 103/ul Normal 0.0-0.1 [facility] Comment on above: Performed By: #### C BC #### [facility] [address] [place], [place] [address] Christian Mikayla Basophils/100 WBC (Bld) 0.1 % Critically low 0.2-2.0 [facility] Comment on above: Performed By: #### C BC #### [facility] [address] [place], [place] [address] Christian Mikayla Eosinophils (Bld) [#/Vol] 0.0 103/ul Normal 0.0-0.7 [facility] Comment on above: Performed By: #### C BC #### [facility] [address] [place], [place] [address] Christian Mikayla Eosinophils/100 WBC (Bld) 0.0 % Critically low 0.9-7.0 [facility] Comment on above: Performed By: #### C BC #### [facility] [address] [id number] Christian Mikayla Erythrocyte distribution width (RBC) [Ratio] 13.4 % Normal 11.0-15.0 [facility] Comment on above: Performed By: #### C BC #### [facility] [address] [id number] Christian Mikayla Hematocrit (Bld) [Volume fraction] 35.4 % Critically low 36.0-48.0 [facility] Comment on above: Performed By: #### C BC #### [facility] [address] [place], [place] [address] Christian Mikayla Hemoglobin (Bld) [Mass/Vol] 11.4 g/dL Critically low 12.0-16.0 [facility] Comment on above: Performed By: #### C BC #### [facility] [address] [place], [place] [address] Christian Mikayla IG # 0.07 10e3/ul Critically high 0.00-0.03 [facility] Comment on above: Performed By: #### C BC #### [facility] [address] [place], [place] [address] Christian Mikayla IG % 0.4 % Normal 0.0-0.5 [facility] Comment on above: Performed By: #### C BC #### [facility] [address] [place], [place] [address] Christian Mikayla Lymphocytes (Bld) [#/Vol] 1.1 103/ul Critically low 1.2-3.8 [facility] Comment on above: Performed By: #### C BC #### [facility] [address] [place], [place] [address] Christian Mikayla Lymphocytes/100 WBC (Bld) 6.9 % Critically low 20.5-60.0 [facility] Comment on above: Performed By: #### C BC #### [facility] [address] [place], [place] [address] Christian Mikayla MANUAL DIFF REQ NO Normal [facility] Comment on above: Performed By: #### C BC #### [facility] [address] [place], [place] [address] Christianvíctor Santaanen MCH (RBC) [Entitic mass] 32.7 pg Normal 26.7-34.0 [facility] Comment on above: Performed By: #### C BC #### [facility] [address] [place] [address] Christianvíctor Degroot MCHC (RBC) [Mass/Vol] 32.2 g/dL Normal 29.9-35.2 [facility] Comment on above: Performed By: #### C BC #### [facility] [address] [place] [address] Christianvíctor Santanaen MCV (RBC) [Entitic vol] 101.4 fL Critically high 81.0-99.0 [facility] Comment on above: Performed By: #### C BC #### [facility] [address] [place] [address] Christian Mikayla Monocytes (Bld) [#/Vol] 1.4 103/ul Critically high 0.3-0.8 [facility] Comment on above: Performed By: #### C BC #### [facility] [address] [place] [address] Christian Mikayla Monocytes/100 WBC (Bld) 8.6 % Normal 1.7-12.0 [facility] Comment on above: Performed By: #### C BC #### [facility] [address] [place] [address] Christian Mikayla Neutrophils (Bld) [#/Vol] 13.4 103/ul Critically high 1.4-6.5 [facility] Comment on above: Performed By: #### C BC #### [facility] [address] [place] [address] Christian Mikayla Neutrophils/100 WBC (Bld) 84.0 % Critically high 43.0-75.0 [facility] Comment on above: Performed By: #### C BC #### [facility] [address] [place] [address] Christian Mikayla Platelet mean volume (Bld) [Entitic vol] 9.5 fL Normal 9.5-13.5 [facility] Comment on above: Performed By: #### C BC #### [facility] [address] [place], [place] [address] Christian Mikayla Platelets (Bld) [#/Vol] 207 103/ul Normal 150-450 [facility] Comment on above: Performed By: #### C BC #### [facility] [address] [place] [address] Christian Mikayla RBC (Bld) [#/Vol] 3.49 106/ul Critically low 4.20-5.[address] [facility] Comment on above: Performed By: #### C BC #### [facility] [address] [place], [place] [address] Christian Mikayla WBC (Bld) [#/Vol] 16.0 103/ul Critically high 4.0-11.0 [facility] Comment on above: Performed By: #### C BC #### [facility] [address] [place], [place] [address] Christian Mikayla PROF CHEM 8 (BAS METB)on Anion gap [Moles/Vol] 11.2 mmol/L Normal [facility] Comment on above: Performed By: #### D RUGRPD #### [facility] [address] [place], [place] [address] Christian Mikayla Calcium [Mass/Vol] 8.3 mg/dL Critically low 8.4-10.2 [facility] Comment on above: Performed By: #### D RUGRPD #### [facility] [address] [place], [place] [address] Christian Mikayla Chloride [Moles/Vol] 106 mmol/L Normal 98-107 [facility] Comment on above: Performed By: #### D RUGRPD #### [facility] [address] [place], [place] [address] Christian Mikayla CO2 [Moles/Vol] 24.5 mmol/L Normal 22.0-30.0 [facility] Comment on above: Performed By: #### D RUGRPD #### [facility] [address] [place], [place] [address] Christian Mikayla Creatinine [Mass/Vol] 0.53 mg/dL Normal 0.52-1.04 [facility] Comment on above: Performed By: #### D RUGRPD #### [facility] [address] [place], [place] [address] Christian Mikayla EGFR-AF JAPANESE >60 Normal >=60 [facility] Comment on above: Performed By: #### D RUGRPD #### [facility] [address] [place], [place] [address] Christian Mikayla EGFR-NON AF JAPANESE >60 Normal >=60 [facility] Comment on above: Performed By: #### D RUGRPD #### [facility] [address] [place], [place] [address] Christian Mikayla Glucose [Mass/Vol] 113 mg/dL Critically high 74-106 [facility] Comment on above: Performed By: #### D RUGRPD #### [facility] [address] [id number] Christian Mikayla Potassium [Moles/Vol] 3.7 mmol/L Normal 3.4-5.0 [facility] Comment on above: Performed By: #### D RUGRPD #### [facility] [address] [id number] Christian Mikayla Sodium [Moles/Vol] 138 mmol/L Normal 137-145 [facility] Comment on above: Performed By: #### D RUGRPD #### [facility] [address] [id number] Christian Mikayla Urea nitrogen [Mass/Vol] 12.0 mg/dL Normal 7.0-17.0 [facility] Comment on above: Performed By: #### D RUGRPD #### [facility] [address] [place], [place] [address] Christian Mikayla Urea nitrogen/Creatinin e [Mass ratio] 22.6 mg/mg Normal [facility] Comment on above: Performed By: #### D RUGRPD #### [facility] [address] [place], [place] [address] Christian Mikayla CBC W MANUAL DIFFon 03-06-20 20 ATYPICAL LYMPH # Normal [facility] Comment on above: Performed By: #### D RUGRPD #### [facility] [address] [place], [place] [address] Christian Mikayla ATYPICAL LYMPH % Normal [facility] Comment on above: Performed By: #### D RUGRPD #### [facility] [address] [place], [place] [address] Christian Mikayla BAND # Normal 0.0-0.3 [facility] Comment on above: Performed By: #### D RUGRPD #### [facility] [address] [place] [address] Christian Mikayla BAND % Normal 0-5 [facility] Comment on above: Performed By: #### D RUGRPD #### [facility] [address] [place] [address] Christian Mikayla BASOM # 0.00 103/ul Normal 0.00-0.10 [facility] Comment on above: Performed By: #### D RUGRPD #### [facility] [address] [place] [address] Christian Mikayla BASOM % 0.0 % Critically low 0.2-2.0 [facility] Comment on above: Performed By: #### D RUGRPDwayne #### [facility] [address] [place] [address] Christian Mikayla BLAST # Normal [facility] Comment on above: Performed By: #### D RUGRPD #### [facility] [address] [place] [address] Christian Mikayla BLAST % Normal [facility] Comment on above: Performed By: #### D RUGRPD #### [facility] [address] [place], [place] [address] Christian Mikayla CORRECTED WBC Normal 4.0-11.0 [facility] Comment on above: Performed By: #### D RUGRPD #### [facility] [address] [place] [address] Christian Mikayla Eosinophils (Bld) [#/Vol] 0.00 103/ul Normal 0.00-0.70 [facility] Comment on above: Performed By: #### D RUGRPD #### [facility] [address] [place], [place] [address] Christian Mikayla Eosinophils/100 WBC (Bld) 0.0 % Critically low 0.9-7.0 [facility] Comment on above: Performed By: #### D RUGRPD #### [facility] [address] [place], [place] [address] Christian Mikayla Erythrocyte distribution width (RBC) [Ratio] 13.2 % Normal 11.0-15.0 [facility] Comment on above: Performed By: #### D RUGRPD #### [facility] [address] [place], [place] [address] Christian Mikayla Hematocrit (Bld) [Volume fraction] 44.1 % Normal 36.0-48.0 [facility] Comment on above: Performed By: #### D RUGRPD #### [facility] [address] [place], [place] [address] Christian Mikayla Hemoglobin (Bld) [Mass/Vol] 13.9 g/dl Normal 12.0-16.0 [facility] Comment on above: Performed By: #### D RUGRPD #### [facility] [address] [place], [place] [address] Christian Mikayla LYMPHM # 0.26 103/ul Critically low 1.20-3.80 [facility] Comment on above: Performed By: #### D RUGRPD #### [facility] [address] [place], [place] [address] Christian Mikayla LYMPHM% 1.0 % Critically low 20.5-60.0 [facility] Comment on above: Performed By: #### D RUGRPD #### [facility] [address] [id number] Christian Mikayla MCH (RBC) [Entitic mass] 32.6 pg Normal 26.7-34.0 [facility] Comment on above: Performed By: #### D RUGRPD #### [facility] [address] [place], [place] [address] Christian Mikayla MCHC (RBC) [Mass/Vol] 31.5 g/dl Normal 29.9-35.2 [facility] Comment on above: Performed By: #### D RUGRPD #### [facility] [address] [address] Christian Mikayla MCV (RBC) [Entitic vol] 103.3 fL Critically high 81.0-99.0 [facility] Comment on above: Performed By: #### D RUGRPD #### [facility] [address] [place] [address] Christian Mikayla METAMYELOCYTE # Normal [facility] Comment on above: Performed By: #### D RUGRPD #### [facility] [address] [place], [place] [address] Christian Mikayla METAMYELOCYTE % Normal [facility] Comment on above: Performed By: #### D RUGRPD #### [facility] [address] [place] [address] Christian Mikayla MONOM# 1.32 103/ul Critically high 0.30-0.80 [facility] Comment on above: Performed By: #### D RUGRPD #### [facility] [address] [place] [address] Christian Mikayla MONOM% 5.0 % Normal 1.7-12.0 [facility] Comment on above: Performed By: #### D RUGRPD #### [facility] [address] [place] [address] Christian Mikayla MYELOCYTE # Normal [facility] Comment on above: Performed By: #### D RUGRPD #### [facility] [address] [place] [address] Christian Mikayla MYELOCYTE % Normal [facility] Comment on above: Performed By: #### D RUGRPD #### [facility] [address] [place], [place] [address] Christian Mikayla NRBC Normal [facility] Comment on above: Performed By: #### D RUGRPD #### [facility] [address] [place] [address] Christian Mikayla Platelet mean volume (Bld) [Entitic vol] 9.6 fL Normal 9.5-13.5 [facility] Comment on above: Performed By: #### D RUGRPD #### [facility] [address] [place] [address] Christian Degorot Platelets (Bld) [#/Vol] 268 103/ul Normal 150-450 [facility] Comment on above: Performed By: #### D RUGRPD #### [facility] [address] [place] [address] Christian Degroot RBC (Bld) [#/Vol] 4.27 106/ul Normal 4.20-5.40 [facility] Comment on above: Performed By: #### D RUGRPD #### [facility] [address] [place], [place] [address] Christian Degroot SEG # 24.82 103/ul Critically high 1.40-6.50 [facility] Comment on above: Performed By: #### D RUGRPD #### [facility] [address] [place], [place] [address] Christian Degroot Segmented neutrophils/100 WBC (Bld) 94.0 % Critically high 43.0-75.0 [facility] Comment on above: Performed By: #### D RUGRPD #### [facility] [address] [place], [place] [address] Christian Degroot WBC (Bld) [#/Vol] 26.4 103/ul Critically high 4.0-11.0 [facility] Comment on above: Performed By: #### D RUGRPD #### [facility] [address] [place], [place] [address] Christian Degroot CPKon 03-06-2020 CK [Catalytic activity/Vol] 464 U/L Critically high 30-135 [facility] Comment on above: Result Comment: test repeated critical value verified Performed By: #### C K #### [facility] [address] [place], [place] [address] Christian Degroot CT ABD/PELV W CONon 03-06-20 [...] by: MAT CASEY Date: 2020-03-06 18:45 Normal [facility] CT STROKE HEAD WOon 03-06-20 20 [...] MAT CASEY Date: 2020-03-06 16:31 Normal [facility] DRUG SCREEN RAPID (URINE)on 03-06-2020 AMP Positive Normal NEGATIVE [facility] Comment on above: Performed By: #### D RUGRPD #### [facility] [address] [place] [address] Christian Mikayla BAR Negative Normal NEGATIVE [facility] Comment on above: Performed By: #### D RUGRPD #### [facility] [address] [place] [address] Christian Mikayla BUP Negative Normal NEGATIVE [facility] Comment on above: Performed By: #### D RUGRPD #### [facility] [address] [place] [address] Christian Mikayla BZO Negative Normal NEGATIVE [facility] Comment on above: Performed By: #### D RUGRPD #### [facility] [address] [place] [address] Christian Mikayla RITCHIE Negative Normal NEGATIVE [facility] Comment on above: Performed By: #### D RUGRPD #### [facility] [address] [place] [address] Christian Mikayla CUT-OFFS SEE BELOW Normal [facility] Comment on above: Result Comment: [...] ng/mL Performed By: #### D RUGRPD #### [facility] [address] [place] [address] Christian Mikayla DRUG CUT HEADER DRUG CLASS TEST SYST EM CUT-OFF CONCENTRATIONS ARE FOLLOWS: Normal [facility] Comment on above: Performed By: #### D RUGRPD #### [facility] [address] [address] Christian Mikayla mAMP Negative Normal NEGATIVE [facility] Comment on above: Performed By: #### D RUGRPD #### [facility] [address] [id number] Christian Mikayla MTD Negative Normal NEGATIVE [facility] Comment on above: Performed By: #### D RUGRPD #### [facility] [address] [address] Christian Mikayla OPI Positive Normal NEGATIVE [facility] Comment on above: Performed By: #### D RUGRPD #### [facility] [address] [place] [address] Christian Mikayla OXY Negative Normal NEGATIVE [facility] Comment on above: Performed By: #### D RUGRPD #### [facility] [address] [place] [address] Christian Mikayla PCP Negative Normal NEGATIVE [facility] Comment on above: Performed By: #### D RUGRPD #### [facility] [address] [place] [address] Christian Mikayla PPX Negative Normal NEGATIVE [facility] Comment on above: Performed By: #### D RUGRPD #### [facility] [address] [place] [address] Christian Mikayla TCA Negative Normal NEGATIVE [facility] Comment on above: Performed By: #### D RUGRPD #### [facility] [address] [place] [address] Christian Mikayla THC Negative Normal NEGATIVE [facility] Comment on above: Performed By: #### D RUGRPD #### [facility] [address] [place], [place] [address] Christian Mikayla ER URINE PROFILEon 0 Bilirubin [Mass/Vol] Negative Normal NEGATIVE [facility] Comment on above: Performed By: #### E RUR #### [facility] [address] [place] [address] Christian Mikayla BLOOD Negative Normal NEGATIVE [facility] Comment on above: Performed By: #### E RUR #### [facility] [address] [place] [address] Christian Mikayla Clarity (U) CLEAR Normal [facility] Comment on above: Performed By: #### E RUR #### [facility] [address] [place] [address] Christian Mikayla Color (U) YELLOW Normal YELLOW [facility] Comment on above: Performed By: #### E RUR #### [facility] [address] [place] [address] Christian Mikayla ERUAHD A micrscopic examina tion will be performed if indicated. Normal [facility] Comment on above: Performed By: #### E RUR #### [facility] [address] [place] [address] Christian Mikayla Glucose [Mass/Vol] Negative Normal NEGATIVE [facility] Comment on above: Performed By: #### E RUR #### [facility] [address] [place] [address] Christian Mikayla Ketones Ql (U) Negative Normal NEGATIVE [facility] Comment on above: Performed By: #### E RUR #### [facility] [address] [place] [address] Christian Mikayla Nitrite Ql (U) Negative Normal NEGATIVE [facility] Comment on above: Performed By: #### E RUR #### [facility] [address] [place] [address] Christian Mikayla pH (Bld) 6.0 Normal 5-9 [facility] Comment on above: Performed By: #### E RUR #### [facility] [address] [place] [address] Christian Mikayla Protein (U) [Mass/Vol] TRACE Normal [facility] Comment on above: Performed By: #### E RUR #### [facility] [address] [place] [address] Christian Mikayla SPEC GRAVITY >=1.030 Normal 1.005-<=1.02 5 [facility] Comment on above: Performed By: #### E RUR #### [facility] [address] [place], [place] [address] Christian Degroot UR MICRO IND NOT INDICATED Normal [facility] Comment on above: Performed By: #### E RUR #### [facility] [address] [place], [place] [address] Christian Degroot Urobilinogen Qn (U) 0.2 EU/dl Normal [facility] Comment on above: Performed By: #### E RUR #### [facility] [address] [place], [place] [address] Christian Degroot WBC (Bld) [#/Vol] Negative Normal NEGATIVE [facility] Comment on above: Performed By: #### E RUR #### [facility] [address] [place], [place] [address] Christian Degroot ETHANOL (BLD ALC)on 03-06-20 20 Ethanol [Mass/Vol] NOTE: 80 mg/dl is th e legal limit for a blood alcohol level Normal [facility] Comment on above: Performed By: #### E TH #### [facility] [address] [place], [place] [address] Christian Degroot Ethanol [Mass/Vol] mg/dL Normal [facility] Comment on above: Performed By: #### E TH #### [facility] [address] [place] [address] Christian Degroot HEMOGRAM AND PLATELon 2019 WBC (Bld) [#/Vol] 23.5 103/ul Critically high 4.0-11.0 [facility] Comment on above: Performed By: #### H H #### [facility] [address] [place] [address] Christian Degroot LACTATE/LACTIC ACIDon 2019 Lactate [Moles/Vol] 0.7 mmol/L Normal 0.7-2.0 [facility] Comment on above: Performed By: #### L ACT #### [facility] [address] [place] [address] Christian Degroot MYOGLOBINon 03-06-2020 Myoglobin [Mass/Vol] 918.0 ng/mL Critically high <=61.5 [facility] Comment on above: Result Comment: test repeated critical value verified Performed By: #### M YO #### [facility] [address] [place], [place] [id number] Christian Degroot POINT OF CARE GLUCOSEon 02-14 Glucose [Mass/Vol] 117 mg/dL Critically high 74-106 T [facility] Comment on above: Performed By: #### D RUGRPD #### [facility] [address] [place], [place] [id number] Christian Degroot PROF 14(COMP METB)on 020 Albumin [Mass/Vol] 3.3 g/dL Critically low 3.5-5.0 e [facility] Comment on above: Performed By: #### T BLAYNE, CMP #### [facility] [address] [place], [place] [address] Christian Degroot Albumin/Globulin [Mass ratio] 1.1 {ratio} Normal [facility] Comment on above: Performed By: #### T ROP, CMP #### [facility] [address] [place] [address] Christian Mikayla ALP [Catalytic activity/Vol] 69 U/L Normal 38-126 [facility] Comment on above: Performed By: #### T ROP, CMP #### [facility] [address] [place] [address] Christian Degroot ALT [Catalytic activity/Vol] 30 U/L Normal 9-52 [facility] Comment on above: Performed By: #### T ROP, CMP #### [facility] [address] [place], [place] [address] Christianvíctor Degroot Anion gap [Moles/Vol] 16.8 mmol/L Normal [facility] Comment on above: Performed By: #### T ROP, CMP #### [facility] [address] [place], [place] [address] Christianvíctor Degroot AST [Catalytic activity/Vol] 29 U/L Normal 14-36 [facility] Comment on above: Performed By: #### T ROP, CMP #### [facility] [address] [place] [address] Christian Mikayla Bilirubin Ql (U) 0.4 mg/dL Normal 0.2-1.3 [facility] Comment on above: Performed By: #### T ROP, CMP #### [facility] [address] [place] [address] Christian Mikayla Calcium [Mass/Vol] 8.7 mg/dL Normal 8.4-10.2 [facility] Comment on above: Performed By: #### T ROP, CMP #### [facility] [address] [address] Christian Mikayla Chloride [Moles/Vol] 104 mmol/L Normal 98-107 [facility] Comment on above: Performed By: #### T ROP, CMP #### [facility] [address] [place] [address] Christian Mikayla CO2 [Moles/Vol] 22.6 mmol/L Normal 22.0-30.0 [facility] Comment on above: Performed By: #### T ROP, CMP #### [facility] [address] [place] [address] Christian Mikayla Creatinine [Mass/Vol] 0.92 mg/dL Normal 0.52-1.04 [facility] Comment on above: Performed By: #### T ROP, CMP #### [facility] [address] [place], [place] [address] Christian Mikayla EGFR-AF JAPANESE >60 Normal >=60 [facility] Comment on above: Performed By: #### T ROP, CMP #### [facility] [address] [place] [address] Christian Mikayla EGFR-NON AF JAPANESE >60 Normal >=60 [facility] Comment on above: Performed By: #### T ROP, CMP #### [facility] [address] [place], [place] [address] Christian Mikayla Globulin (S) [Mass/Vol] 3.0 g/dL Normal [facility] Comment on above: Performed By: #### T ROP, CMP #### [facility] [address] [place] [address] Christian Mikayla Glucose [Mass/Vol] 130 mg/dL Critically high 74-106 [facility] Comment on above: Performed By: #### T ROP, CMP #### [facility] [address] [id number] Christian Mikayla Potassium [Moles/Vol] 4.4 mmol/L Normal 3.4-5.0 [facility] Comment on above: Performed By: #### T ROP, CMP #### [facility] [address] [id number] Christian Mikayla Protein [Mass/Vol] 6.3 g/dL Normal 6.1-8.2 [facility] Comment on above: Performed By: #### T ROP, CMP #### [facility] [address] [id number] Christian Mikayla Sodium [Moles/Vol] 139 mmol/L Normal 137-145 [facility] Comment on above: Performed By: #### T ROP, CMP #### [facility] [address] [id number] Christian Mikayla Urea nitrogen [Mass/Vol] 18.0 mg/dL Critically high 7.0-17.0 [facility] Comment on above: Performed By: #### T ROP, CMP #### [facility] [address] [id number] Christian Mikayla Urea nitrogen/Creatinin e [Mass ratio] 19.6 mg/mg Normal [facility] Comment on above: Performed By: #### T ROP, CMP #### [facility] [address] [address] Christian Mikayla RESPIRATORY PANEL PLUSon Adenovirus NOT DETECTED Normal NOT DETECTED [facility] Comment on above: Performed By: #### D RUGRPD #### [facility] [address] [id number] Christian Mikayla B. Parapertusis NOT DETECTED Normal NOT DETECTED [facility] Comment on above: Performed By: #### D RUGRPD #### [facility] [address] [id number] Christian Mikayla B. Pertussis NOT DETECTED Normal NOT DETECTED [facility] Comment on above: Performed By: #### D RUGRPD #### [facility] [address] [address] Christian Mikayla Chlamydia Pneumoniae NOT DETECTED Normal NOT DETECTED [facility] Comment on above: Performed By: #### D RUGRPD #### [facility] [address] [place] [address] Christian Mikayla Coronavirus 229E NOT DETECTED Normal NOT DETECTED [facility] Comment on above: Performed By: #### D RUGRPD #### [facility] [address] [place] [address] Christian Mikayla Coronavirus HKU1 NOT DETECTED Normal NOT DETECTED [facility] Comment on above: Performed By: #### D RUGRPD #### [facility] [address] [place] [address] Christian Mikayla Coronavirus NL63 NOT DETECTED Normal NOT DETECTED [facility] Comment on above: Performed By: #### D RUGRPD #### [facility] [address] [place] [address] Christian Mikayla Coronavirus OC43 NOT DETECTED Normal NOT DETECTED [facility] Comment on above: Performed By: #### D RUGRPD #### [facility] [address] [place] [address] Christian Mikayla Influenza A H1 2008 NOT DETECTED Normal NOT DETECTED [facility] Comment on above: Performed By: #### D RUGRPD #### [facility] [address] [place] [address] Christian Mikayla Influenza B NOT DETECTED Normal NOT DETECTED [facility] Comment on above: Performed By: #### D RUGRPD #### [facility] [address] [place] [address] Christian Mikayla Metapneumovirus NOT DETECTED Normal NOT DETECTED [facility] Comment on above: Performed By: #### D RUGRPD #### [facility] [address] [place] [address] Christian Mikayla Mycoplas. Pneumoniae NOT DETECTED Normal NOT DETECTED [facility] Comment on above: Performed By: #### D RUGRPD #### [facility] [address] [place], [place] [address] Christian Mikayla Parainfluenza 1 NOT DETECTED Normal NOT DETECTED [facility] Comment on above: Performed By: #### D RUGRPD #### [facility] [address] [place] [address] Christian Mikayla Parainfluenza 2 NOT DETECTED Normal NOT DETECTED [facility] Comment on above: Performed By: #### D RUGRPD #### [facility] [address] [place] [address] Christian Mikayla Parainfluenza 3 NOT DETECTED Normal NOT DETECTED [facility] Comment on above: Performed By: #### D RUGRPD #### [facility] [address] [place] [address] Christian Mikayla Parainfluenza 4 NOT DETECTED Normal NOT DETECTED [facility] Comment on above: Performed By: #### D RUGRPD #### [facility] [address] [place] [address] Christian Mikayla Rhino/Enterovirus NOT DETECTED Normal NOT DETECTED [facility] Comment on above: Performed By: #### D RUGRPD #### [facility] [address] [place] [address] Christian Mikayla RP2 Header 1 RESPIRATORY PANEL: VIRUSES Normal [facility] Comment on above: Performed By: #### D RUGRPD #### [facility] [address] [place] [address] Christian Mikayla RP2 Header 2 RESPIRATORY PANEL: BACTERIA Normal [facility] Comment on above: Performed By: #### D RUGRPD #### [facility] [address] [place] [address] Christian Mikayla RP2 Header 4 EUA SEE [...] for this test is supported by the [employer] of Health and Human Service?s (HHS?s) declaration [...] used). Performed By: #### D RUGRPD #### [facility] [address] [place] [address] Christian Degroot RSV NOT DETECTED Normal NOT DETECTED [facility] Comment on above: Performed By: #### D RUGRPD #### [facility] [address] [place] [address] Christian Mikayla SARS-CoV-2: COVID-19 NOT DETECTED Normal NOT DETECTED [facility] Comment on above: Performed By: #### D RUGRPD #### [facility] [address] [place] [address] [facility] Ion 03-06-2020 Troponin I.cardiac [Mass/Vol] 0.016 ng/mL Normal <=0.034 [facility] Comment on above: Performed By: #### T ROP, CMP #### [facility] [address] [place] [address] Troponin I.cardiac [Mass/Vol] SEE BELOW Normal [facility] Comment on above: Result Comment: <0.0 34 ng/ml NEGATIVE 0.034-0.119 INDETERMINATE 0.120 AMI CUT OFF Performed By: #### T ROP, CMP #### [facility] [address] [place] [address] Christian Mikayla XR CHEST 1 Von 03-06-2020 [...] FELA SMITH Date: 2020-03-06 15:07 Normal [facility] CT 3D CERVICAL SPINE WITH CO NTRASTon 04-27-2018 CT 3D CERVICAL SPINE WITH CONTRAST [facility] [address] [id number] Patient Name: RADHA DUNCAN : 1970Sex: FAge: Race: WhiteMRN: [id number]. Location: 85Patient Status: OVisit #: [id number] Date: 04/10/2018 12:10:00 PMCompleted Date: 04/27/2018 10:58 AMRequesting Provider: MARY DIAL Attending Provider: MARY DIAL Report Copy To: TEJAS RICHARDSON Signs & Symptoms: M54.12 Radiculopathy, cervical region [id number]: Nyla MYELOGRAM AUTH [id number] VALID 04/11/18-07/12/18 PER [facility] [id number] JYComments: Exam: CT 3D CERVICAL SPINE WITH CONTRASTAccession #: [id number] CT 3D CERVICAL SPINE WITH CONTRAST 04/27/2018 [...] findings. Electronically signed by:Oli Sanders. Transcribed by: [email or web address], User Resident: MANDEEP YOUNGElectronically Signed by: OLI SANDERS @ 04/27/2018 01:02 PMI personally read this/these film(s) with this resident Normal The [facility] CT 3D LUMBAR SPINE W CONTRAS Ton 04-27-2018 CT 3D LUMBAR SPINE W CONTRAST [facility] [address] [place] [address] Patient Name: RADHA DUNCAN : 1970Sex: FAge: Race: WhiteMRN: [id number]. Location: 85Patient Status: DVisit #: [id number] Date: 04/10/2018 12:10:00 PMCompleted Date: 04/27/2018 10:59 AMRequesting Provider: MARY DIAL Attending Provider: MARY DIAL Report Copy To: ALYSSAMILOTEJAS Signs & Symptoms: M54.16 Radiculopathy, lumbar region [id number]: Nyla MYELOGRAM AUTH [id number] VALID 04/11/18-07/12/18 PER [facility] [id number] JYComments: Exam: CT 3D LUMBAR SPINE W CONTRASTAccession #: [id number] CT 3D LUMBAR SPINE W CONTRAST 04/27/2018 [...] findings. Electronically signed by:Antony Skelton. Transcribed by: [email or web address], User Resident: MANDEEP YOUNGElectronically Signed by: ANTONY SKELTON @ 04/27/2018 05:36 PMI personally read this/these film(s) with this resident Normal The [facility] ENTIRE MYELOGRAMon 8 ENTIRE MYELOGRAM [facility] [address] [place] [address] Patient Name: RADHA DUNCAN : 1970Sex: FAge: Race: WhiteMRN: [id number]. Location: 85Patient Status: OVisit #: [id number] Date: 04/10/2018 12:10:00 PMCompleted Date: 04/27/2018 10:19 AMRequesting Provider: MARY DIAL Attending Provider: MARY DIAL Report Copy To: TEJAS RICHARDSON Signs & Symptoms: M54.16 Radiculopathy, lumbar region [id number]: [place] CT MYELOGRAMComments: , , , Ordering Provider - MARY DIAL MD , Exam: ENTIRE MYELOGRAMAccession #: [id number] ENTIRE MYELOGRAM 04/27/2018 10:19 AM EST SIGNS [...] and risks are acceptable. Consent was obtained. Timeout:[place] protocol timeout verification performed. PROCEDURE:Estimated blood loss:None [...] findings. Electronically signed by:Oli Sanders. Transcribed by: [email or web address], User Resident: MANDEEP YOUNGElectronically Signed by: OLI SANDERS @ 04/27/2018 01:01 PMI personally read this/these film(s) with this resident Normal [facility] Comment on above: Order Comment: , , = ========= , Ordering Provider - MARY DIAL MD , Ta 02-20-2018 [facility]NP[facility]x Telephone ([facility]) -------RADHA DUNCAN ([id number]) 1970 FDate Time Provider Mtrbbphepy61/8/18 MAGED MURDOCK During your visit today, we recorded the following information about you:Jacinta Philippe [facility] Patient Service Spec 02/20/2018 8:05 AM SignedPt [...] from his care.Please call her back at [phone].Elysia Montoya Psr 02/22/2018 8:37 AM SignedPlease fax letter over to [phone].Clint Park LPN 02/27/2018 10:18 AM SignedSpoke with patient and she wanted to know if knew of a physician inthe area that she lived that could do the ketamine infusion.I explained most likely he would not have this information she would need tocheck around in her area with other pain providers to see if they do theinfusions. She said she found one in the [place] area but they want money upfront and [...] Known Allergies)Date Reviewed: 02/10/2018Reviewed by: Kayla Sparks CRM MARKETING MANAGER - Fully AssessedReason for Visit: Letter [264]Prescriptions [...] by MAGED MURDOCK MD on 02/28/18 Normal [facility] CNOVon 02-10-2018 CNOV Office Visit ([facility]) -------RADHA DUNCAN ([id number]) 1970 FDate Time Provider Department02/10/18 10:45 AM [...] percocet was last taken 02/09/2018 in the [facility] records were reviewed.Imaging results in scanned documents [...] other than HPI.Data scribed by above mentioned MA/CRM MARKETING MANAGER/RN/PA, and personally reviewed andverified by physician. Maged [...] above. PAU Joynereptember 2017Referring Provider: LINDSEY AGUILAR [[id number]]Allergies As of Date: 02/10/2018(No Known Allergies)Date Reviewed: [...] FOR* 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] INVALID FOR*Letter TextSept2017Maged MurdockOhio State University Wexner Medical Centerpartment of Pain [address], [place] [phone] [phone] Suzanne M Bailey:Thank you for seeing me [...] any questions. Sincerely, Maged Murdock MDEncounter Number: [id number] Status:Closed by MAGED MURDOCK MD on 02/11/18 Normal [facility] PROGRESSon 02-10-2018 Protein mass conc HNO ID: [id number] thor: Maged Jolleyervice: (none)Author Type: PhysicianType: Progress [...] medication: [facility] morningRelevant OARRS records were reviewed.Imaging results [...] other than HPI.Data scribed by above mentioned MA/CRM MARKETING MANAGER/RN/PA, and personally reviewed andverified by physician. Maged [...] with above. Maged Murdock, PAUeptember 2017 Normal [facility] CNOVon 01-10-2018 CNOV Office Visit ([facility]) -------RADHA DUNCAN ([id number]) 1970 FDate Time Provider Department01/10/18 1:00 PM [...] and C4-C5 secondaryto DDDAnterior mechanical fusion of H0-0-8OHHLXG OF SYSTEMS:GENERAL: (-) weight loss, (+)malaise, (-)fevers.HEENT:(+)headache [...] other than HPI.Data scribed by above mentioned MA/CRM MARKETING MANAGER/RN/PA, and personally reviewed andverified by Monica Yan [...] resulting treatment plan. Patient agreeswith above.Monica Yan APRN.[facility] 2017Referring Provider: TEJAS RICHARDSON JR [[id number]]Allergies As of Date: 01/10/2018(No Known Allergies)Date Reviewed: [...] INVALID FOR*Follow-up and Disposition History RecordedEncounter Number: [id number] Status:Closed by MONICA YAN CNP on 01/10/18 Normal [facility] PROGRESSon 01-09-2018 Protein mass conc HNO ID: [id number] thor: Monica Pereyra (Perianesthesia Nurse) HillService: (none)Author Type: Nurse PractitionerType: Progress [...] to moderate foraminal narrowing at C3-C4, and C4-Z8wnwqlnigj to DDDAnterior mechanical fusion of K0-4-5MTFOBA OF SYSTEMS:GENERAL: (-) weight loss, (+)malaise, (-)fevers.HEENT:(+)headache [...] other than HPI.Data scribed by above mentioned MA/CRM MARKETING MANAGER/RN/PA, and personally reviewed andverified by Monica Yan [...] resulting treatment plan. Patientagrees with above.Monica Yan APRN.[facility] 2017 Normal [facility] Ta 12-21-2017 [facility] Telephone ([facility]) -------RADHA DUNCAN ([id number]) 1970 FDate Time Provider Department12/21/17 MAGED MURDOCK During your visit today, we recorded the following information about you:Lorena Araiza 12/21/2017 10:31 AM AddendumPatient calling in to inquire if you have received MRI films from [facility].Please advisJacob Park LPN 12/22/2017 3:15 PM SignedSpoke with patient and informed her that we did receive the thoracic MRI whichwas normal.We did not receive the cervical MRI. She will call [place] and have them refaxit.Kamialberta Brooksca Workleader 12/26/2017 9:53 AM SignedPatient called back in regards to below message. Patient would like to know ifwe have received the Cervical MRI as it was refaxed 12/22. Pleasereview.Clint Park LPN 12/26/2017 11:01 AM SignedSpoke to [place] and they are refaxing it as I [...] by CLINT PARK LPN on 12/22/17 Normal [facility] CNOVon 12-08-2017 CNOV Office Visit ([facility]) -------DAKOTARADHA ([id number]) 1970 FDate Time Provider Department12/08/17 1:30 PM MAGED MURDOCK During your visit today, we recorded the following information about you: Pulse Respiration Blood pressure Weight 62/minute 16/minute 105/40 68.9 kgBenjourdan Murdock MD 12/08/2017 6:06 PM SignedReferring Or Consulting Physician:Lindsey Aguilar, [id number] [facility] [address] [place] [address]WGSMS COMPLAINT: pain in my neck, shoulders, thoracic [...] Number of children: 0Occupational 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 Maged [...] also during rena-operative period. we dont have zqjo-iujzdfy-liukndgy for disability, likely to hamper rapid recovery [...] did have severe postprocedure pain in [place] [facility] handsDirect patient care time spent: [...] mail.Maged Murdock MDJuly 2017Referring Provider: LINDSEY AGUILAR [[id number]]Allergies As of Date: 12/08/2017(No Known Allergies)Date Reviewed: [...] region [M48.02]Order(s):C-REACTIVE PROTEIN (CRP) [SQCRP] Order #: [id number] FUTURE SED RATE WESTERGREN [SQWSR] Order #: [id number] FUTURE TSH BLD [SQTSH] Order #: [id number] FUTURE IRON + TIBC [SQIRON] Order #: [id number] FUTURE VITAMIN D 25 HYDROXY [SQVITD] Order #: [id number] FUTURE MRI THORACIC SPINE WO/W IVCON [5475821] Order #: [id number] FUTURE iv contrast (will be provided with [...] EachRfl: 0 MRI CERVICAL SPINE WO IVCON [[id number]] Order #: [id number] FUTUREPrescriptions as of 12/08/2017 Sig: OXCARBAZEPINE 150 [...] discontinue is not on file.Letter TextJuly 2017Maged MurdockMemorial HospitalDepartment of Pain [address], [place] [phone] [phone] Radha Duncan:Thank you for seeing me today. [...] medications for the issues above, and [facility] would be the next steps. Afterthat, further testing could be done to get to the bottom of your problems.Please call with any questions. 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 Maged [...] did have severepost procedure pain in [place] [facility] handsDirect patient care time spent: [...] fax, or mail.Maged Murdock MDJuly 2017 Normal [facility] Vital Signs Date Time Vital Sign Value Performing Clinician Tracyi nadiya 06-26-2024 09:30-0500 Body height 160 cm Maged Contreras DO Work Phone: [facility] 06-26-2024 09:30-0500 Body mass index (BMI) [Ratio] 30.11 kg/m2 Maged Contreras DO Work Phone: [facility] 06-26-2024 09:30-0500 Body weight 77.11 kg Maged Contreras DO Work Phone: [facility] Encounters Encounter Date Encounter Type Care Provider Facility Start: 07-23-2024 End: 07-23-2024 [facility]ulatory [facility] Start: 06-26-2024 End: 06-26-2024 Bamboo flowsheet Maged Contreras DO Work Phone: [facility] Start: 06-26-2024 End: 06-26-2024 Bamboo flowsheet Maged Contreras DO Work Phone: [facility] Start: 06-26-2024 End: 06-26-2024 Clinical Support Gina Riddle [facility] Work Phone: [facility] Comment on [...] 06-11-2024 End: 06-11-2024 ambulatory Christian Jameson MD Facility:[facility] Start: 04-24-2024 End: 04-24-[address] [facility] Start: 04-11-2024 End: 04-11-[address] [facility] Start: 04-04-2024 End: 04-04-2024 ambulatory [facility] Start: 03-27-2024 End: 03-27-2024 ambulatory [facility] Start: 03-20-2024 End: 03-20-[address] [facility] Start: 03-16-2024 End: 03-16-2024 ambulatory TEJAS RICHARDSON [facility] Start: 03-15-2024 End: 03-15-2024 ambulatory [facility] Work Phone: Start: 03-15-2024 End: 03-15-2024 Patient encounter procedure [facility] Work Phone: Start: 03-13-2024 End: 03-13-2024 ambulatory TEJAS RICHARDSON [facility] Start: 03-07-2024 End: 03-07-2024 ambulatory [facility] Start: 12-15-2023 End: 01-15-2024 ambulatory TEJAS RICHARDSON [facility] Start: 12-05-2023 End: 12-15-2023 ambulatory TEJAS RICHARDSON [facility] Start: 11-10-2023 End: 11-10-2023 [facility] Start: 10-26-2023 End: 10-26-2023 ambulatory Tejas Richardson DO Facility:[facility] Start: 10-26-2023 End: 10-26-2023 ambulatory Tejas Sanders [facility] Facility:Infectious Disease Start: 08-22-2023 End: 08-22-2023 ambulatory TEJAS Roddy [facility] Start: 08-15-2023 End: 09-14-2023 ambulatory [facility] Start: 07-18-2023 End: 08-15-2023 ambulatory [facility] Start: 03-06-2020 End: 03-07-2020 Patient encounter procedure PEREZ LESTER Facility: Start: 04-27-2018 End: 04-28-2018 Patient encounter procedure PROVIDER UNKNOWN Facility:[facility] Start: 02-10-2018 End: 02-13-2018 Patient encounter MAGED MURDOCK [facility] Start: 01-10-2018 End: 01-11-2018 Patient encounter MONICA YAN [facility] Start: 12-08-2017 End: 12-09-2017 Patient encounter MAGED MURDOCK [facility] Procedures Date Procedure Procedure Detail Performing Clinician Start: 06-26-2024 AUDITORY FUNCTION TESTS Gina Riddle CCC-A Work Phone: Start: 03-06-2020 End: 03-06-2020 Microscopic examination of blood, culture PEREZ LESTER Comment on above: Performed By: #### D RUGRPDwayne #### [facility] [address] [address] Christian Degroot Start: 01-30-2020 Mammography Maged mercer DO Work Phone: Plan of Treatment Date Care Activity Detail Author Start: 02-06-2025 Screening for malign ant neoplasm of cervix [facility] Start: 06-26-2024 End: 06-26-2024 Patient encounter procedure 06/26/2024 9:30 AM EST Office Visit AB ANDRES [address] [place] [id number] Maged Contreras, DO [address] [place] [address] Arrived NOMTaz ANDRES Comment on above: Arrived Start: 01-15-2024 Influenza vaccination Influenza Vacc ine (#1) [facility] Start: 01-29-2021 Screening for malign ant neoplasm of breast Mammogram [facility] Start: 1990 Screening for malign ant neoplasm of cervix Pap Smear [facility] Start: 1969 Screening for malign ant neoplasm of colon [facility] Immunizations Immunization Date Immunization Notes Care Provider Nazanin thornton 11-29-2020 Pfizer Purple Cap SARS-CoV-2 Vaccination Maged Contreras DO Work Phone: [facility] 11-09-2020 Pfizer Purple Cap SARS-CoV-2 Vaccination Maged Contreras DO Work Phone: [facility] 03-06-2020 influenza, high dose seasonal, preservative-free Maged Contreras DO Work Phone: [facility] 03-06-2020 influenza virus vacc ine, unspecified formulation Maged Contreras DO Work Phone: [facility] Payers Date Payer Category Payer Private Health Insurance [facility] [id number] 2023 Unknown 2023 Unknown [id number] 2022 Unknown [id number] 1969 Unknown [id number] 2.16840.1.395103.3.579. 2.647 1969 Unknown [id number] 2.16.840.1.912530.3.579. 2.593 1969 Unknown [id number] 2.16840.1.201200.3.579. 2.128 1969 Unknown [id number] 2.16.840.1.047087.3.579. 2.1286 1969 Unknown [id number] 2.16840.1.949644.3.579. 2.1285 1969 Unknown [id number] 2.16.840.1.678276.3.579. 2.128 1969 Unknown [id number] 2.16.840.1.106062.3.579. 2.1285 1969 Unknown [id number] 2.16840.1.956407.3.579. 2.128 1969 Unknown [id number] 2.16.840.1.000078.3.579. 2.1286 1969 Unknown [id number] 2.16.840.1.223200.3.579. 2.1286 1969 Unknown [id number] 2.840.1.276886.3.579. 2.128 1969 Unknown [id number] 2.16840.1.791997.3.579. 2.1285 1969 Unknown [id number] 2.840.1.713843.3.579. 2.1285 1969 Unknown [id number] 2.840.1.312026.3.579. 2.1285 1969 Unknown [id number] .840.1.138716.3.579. 2.1285 1969 Unknown [id number] .840.1.353747.3.579. 2.1285 1969 Unknown [id number] 07.01.830.1.547058.3.579. 2.1285 1969 Unknown [id number] .840.1.384848.3.579. 2.9 1969 Unknown [id number] .0.1.654073.3.579. 2.1258 1969 Unknown [id number] .840.1.732192.3.579. 2. 1969 Unknown [id number] 840.1.887089.3.579. 2. 1969 Unknown [id number] 840.1.319943.3.579. 2. 1969 Unknown [id number] .840.1.852688.3.579. 2. 1969 Unknown [id number] 2.840.1.313426.3.579. 2. 1969 Unknown [id number] 2840.1.441538.3.579. 2.196 1959 Unknown [id number] Unknown [id number] Social History Date Type Detail Facility Tobacco smoking stat [facility] Unknown if ever smoked [facility] Work Phone: Start: 1970 Sex Assigned At Female F [facility] Tobacco smoking stat [facility] Tobacco smoking consumption unknown [facility] Start: 1970 Sex assigned at Not on file [facility] Start: 06-26-2024 Gender identity Not on file [facility] Start: 06-26-2024 Tobacco smoking stat [facility] Smokes tobacco daily [facility] History of [...] back as needed documented in this encounter [facility] Evaluation note Note Date & Type Note Facility Evaluation note No assessment information availa [facility] Work Phone: Evaluation note Note Date & Type Note Facility Evaluation note Diagnosis Sensorineural hearing loss (SNHL) of left ear with unrestricted hearing of right ear- Primary Impacted cerumen of left ear Impacted cerumen documented in this encounter [facility] Healthcare Evaluation note Note Date & Type Note Facility Evaluation note Diagnosis Conductive hearing loss of left ear with unrestricted hearing of right ear- Primary documented in this encounter [facility] Healthcare Summary Purpose Family History No [...] and content) DATE CREATED AUTHOR 04/03/2018 [facility] DATE CREATED AUTHOR AUTHOR'S ORGANIZ ATION 05/03/2018 [facility] DATE CREATED AUTHOR AUTHOR'S ORGANIZ ATION 04/09/2020 [facility] DATE CREATED AUTHOR AUTHOR'S ORGANIZ ATION 04/07/2024 [facility] DATE CREATED AUTHOR AUTHOR'S ORGANIZ ATION 04/28/2024 [facility] DATE CREATED AUTHOR AUTHOR'S ORGANIZ ATION 06/28/2024 [facility] dical Specialists [facility] DATE CREATED AUTHOR AUTHOR'S ORGANIZ ATION 07/30/2024 [facility] Care Teams (unrecognized sec tion and content) Team Status: Active Member Role Status Dates Tejas Richardson JR DO Primary Care Provider Active Team Status: Inactive Member Role Status Dates Tejas Richardson JR DO Primary Care Provider Active Start: March 15, 2024 End: March 15, 2024 Fela Roman MD Attending Provider Active Sta rt: March 15, 2024 End: March 15, 2024 Ornamental Metalwork Designer Relationship Specialty Start Date End Date Tejas Richardson MD [address] [place] [phone] PCP - General Internal Medicine 06/26/24 Ornamental Metalwork Designer Relationship Specialty Start Date End Date Tejas Richardson MD [address] [place] [address] [phone] PCP - General Internal Medicine 06/26/24 Ornamental Metalwork Designer Relationship Specialty Start Date End Date Tejas Richardson MD [address] [place] [address] [phone] PCP - General Internal Medicine 06/26/24 Goals [...] BE BASED ON THE PRIMARY CLINICAL RECORDS. [facility] [employer] provides no warranty or guarantee of the accuracy or completeness of information in this document.
[2024-08-27 08:01] VITALS: BP 135/65; PULSE 85; TEMP 36.8; O2SAT 100
[2024-08-27 08:32] VITALS: BP 121/64; BP 122/59; PULSE 74; PULSE 75; O2SAT 100; O2SAT 98
[2024-08-27] MEDS: BUPIVACAINE HCL 0.25% PF 25 MG/10 ML VIAL 8 ML INJ (08:34)
[2024-08-27] MEDS: LIDOCAINE HCL 2% 400 MG/20 ML MDV INJ (08:34)
--- NOTE | 2024-08-27 08:39 | W.PM.PROCNOT ---
Date of procedure: 08/27/24 Pre-op diagnosis: Pain due to lumbar spondylosis without myelopathy Post-op diagnosis: same as pre-op Procedure: Procedure: Bilateral L4-5, L5-S1 medial branch block Medications: Bupivacaine 0.25% 6cc The patient was seen and examined in the preoperative holding area.? An informed consent was obtained and placed on the chart.? The patient was brought to the medical procedure unit and placed in the prone position.? A timeout was completed verifying correct patient, procedure site, positioning, plan, and special equipment.? Using aseptic technique, the needle was placed at left L4. Under direct fluoroscopic visualization a Quincke-tipped spinal needle was advanced to the junction of the superior articulating process with the transverse process at the designated medial branch segment.? Preceded by negative aspiration, the above-mentioned injectate was placed in 1 mL aliquots.? The procedure was repeated at left L5, S1.? The needle was removed and insertion site was covered. The same procedure, at the same levels, was completed on the right side. The patient was taken to the postprocedural recovery area and monitored for an appropriate length of time before found suitable for discharge in the company of a responsible adult. Anesthesia: Local Surgeon: Christian Jameson Pathology: none sent Condition: stable Disposition: no change
== END 2024-08-27 08:40 | disposition home or self-care (01) ==
LOC: SURGOUT 07:39
PROVIDERS: PCP Internal Medicine; Visit Provider Anesthesiology
DX: M47.816 Spondylosis without myelopathy or radiculopathy, lumbar region (principal); M54.50 Low back pain, unspecified
CPT/HCPCS: 64493; 64494; J0665

== ENCOUNTER 2024-09-05 08:32 | Outpatient (OUT) | payer OTHER, SELFPAY ==
--- NOTE | 2024-09-05 08:49 | P.CN_ITS ---
Consult Note: HPI Data of Consult Patient: known to practice within the last 3 years Requesting Physician: Anh Gatica NP Primary Care Provider: ULYSSES RICHARDSON DO Consult Narrative Reason for consult: low back, left leg pain Narrative: 54yof who presents for evaluation. low back pain. imaging shows multilevel degnerative changes, stenosis, fusion at l3-4. fusion performed last year, had infection and reoperated last year. has engaged in a series of provider directed home exercises >6 weeks, without lasting benefit. currently utilizing cymbalta 60mg daily, mobic 7.5mg BID, gabapentin 600mg BID without side effect. pt recently underwent bilateral L4-5 L5-S1 facet medial branch block #1 with no improvement in low back pain. unfortunately pt cannot afford additional interventional therapy. pain today 6/10 throbbing, increasing to 10/10 with standing, walking, housework, lifting, ADLs, and sleep. denies falls since last visit. cc:: CC: Anh Gatica NP Review of Systems ROS Status of ROS 10 or more systems reviewed and unremark able except as noted in history and below Musculoskeletal Reports: back pain, extremity pain and joint pain [facility] Medical History (Updated 06/11/24 @ 14:13 by Christian Jameson MD) DDD (degenerative disc disease) Osteopenia ?M85.80 - Other specified disorders of bone density and structure, unspecified site (ICD-10) Back pain ?M54.9 - Dorsalgia, unspecified (ICD-10) Depression ?F32.A - Depression, unspecified (ICD-10) Spinal stenosis ?M48.00 - Spinal stenosis, site unspecified (ICD-10) Neuropathy ?G62.9 - Polyneuropathy, unspecified (ICD-10) Migraine ?G43.909 - Migraine, unspecified, not intractable, without status migrainosus (ICD-10) GERD (gastroesophageal reflux disease) ?K21.9 - Gastro-esophageal reflux disease without esophagitis (ICD-10) Delayed recovery from anesthesia Menopause ?Z78.0 - Asymptomatic menopausal state (ICD-10) Surgical History H/O lumbosacral spine surgery ?Z98.890 - Other specified postprocedural states (ICD-10) S/P insertion of intrathecal pump ?Z98.890 - Other specified postprocedural states (ICD-10) S/P cervical spinal fusion ?Z98.1 - Arthrodesis status (ICD-10) Family History Other Family history of colon cancer Family history of diabetes mellitus Social History Within the past year, how often did you have a drink containing alcohol: never Score interpretation: A score less than 3 is consistent with normal alcohol consumption. Smoking status: Current every day smoker What tobacco products do you use: cigarettes Packs per day: 1 Years smoked: 39 Smoking pack-years: 39.00 Non-prescribed substance use: denies use Highest level of school completed/degree received: high school graduate Meds Home Medications and Allergies Home Medications ?Medication ?Instructions ?Recorded ?Confirmed ?Type duloxetine 60 mg capsule,delayed 60 mg PO DAILY 08/17/23 08/27/24 History release (Cymbalta) rosuvastatin 5 mg tablet (Crestor) 5 mg PO DAILY 08/17/23 08/27/24 History cyclobenzaprine 10 mg tablet 10 mg PO TID PRN muscle spasm #60 06/11/24 08/27/24 Rx tabs gabapentin 600 mg tablet mg 08/21/24 History meloxicam 7.5 mg tablet mg 08/21/24 History Allergies Allergy/AdvReac Type Severity Reaction Status Date / Time morphine AdvReac overdose Verified 08/27/24 08:02 Exam Constitutional Documenting provider has reviewed patient's vital signs: yes Common normals: no apparent distress, oriented x3, healthy appearing, alert and well nourished General appearance: cooperative [facility] Common normals: normocephalic, hearing grossly normal bilaterally and moist oral mucous membranes Head and scalp: normocephalic Eye Common normals: PERRL Pupil: PERRL Neck & C-Spine Common normals: full ROM General: normal visual inspection Chest Common normals: inspection of chest normal Respiratory Common normals: normal respiratory effort, no retractions and no use of accessory muscles Back & Pelvis Lumbar spine/lower back: ROM limited, pain with ROM, lumbar spinal tenderness Lumbar spinal tenderness location: L4 and L5, paraspinal muscle tenderness and straight leg raise negative bilaterally Sacroiliac joints: SI joints normal Other: strength 5/5 in BLE negative left richardson(patricks), gaenslens, thigh thrust, compression test positive lumbar facet loading L4-S1 Neuro Common normals: oriented x3 Sensorium/orientation: alert Motor exam: strength 5/5 throughout and no movement abnormalities noted Psych Common normals: mental status grossly normal, thought process normal, cooperative, affect normal, speech normal and activity/motor behavior normal Speech: normal speech Thought process: normal thought process Results Additional Findings Additional findings: If on a controlled substance or opioids, I have checked an [place]AR[place] report on this patient and there are no aberrancies noted in the prescribing history.??If on a controlled substance or opioid a drug screen was completed and reviewed within the last year, and if there has not been a drug screen completed we ordered one today to monitor higher risk, state monitored pain medication use. As part of providing excellent, safe, comprehensive care, the following was completed at our patient's visit: 1. A medication reconciliation and review to ensure accurate knowledge of current/active medications, including asking our patients to inform us about any [id number] medications or herbal remedies/nutritional supplements/alternative remedies. 2. A review to specifically ensure our patients have had annual screening for screening for depression, screening for tobacco use, and screening for unhealthy alcohol use. For concerning screenings had a discussion with the patient, provided patient education, and recommended follow-up with primary care provider when appropriate. If patient noted with a risk of falling, they received education on strength, gait, and balance training to prevent future risk of falling. Portions of this note may have been carried over from the previous visit and updated as appropriate. Please note this office utilizes paper charting in addition to the electronic medical record. A list of current medications, vitals, and PMH is available there as the clinical staff outside of myself do not have access to [employer] charting during the clinic day operations. As part of providing quality comprehensive care the current medications, vitals, and PMH were reviewed in the paper chart. Assessment and Plan Assessment and Plan (1) Lumbar stenosis with neurogenic claudication: Assessment and Plan: symptoms improved on exam (2) Lumbar spondylosis: (3) Sacroiliac joint dysfunction of left side: Assessment and Plan: symptoms improved on exam (4) Lumbar postlaminectomy syndrome: Plan 54 year old female with chronic low back pain post lumbar fusion, pt reporting moderate to severe low back pain with numbness tingling to LLE. recently underwent bilateral L4-5 L5-S1 MBB#1 without improvement, cancel #2. defer additional interventional therapy due to cost. unfortunately not a scs candidate due to hx of intrathecal pain pump and infection, previously failed medtronic scs trial per pt. increase gabapentin 600mg TID, risks vs benefits reviewed. c ontinue meloxicam 7.5mg BID and duloxetine 60mg daily. continue HEP as tolerated. f/u 6 weeks to evaluate medication changes.
== END 2024-09-05 08:33 | disposition home or self-care (01) ==
PROVIDERS: PCP Internal Medicine; Visit Provider Nurse Practitioner
DX: M48.062 Spinal stenosis, lumbar region with neurogenic claudication (principal); M47.816 Spondylosis without myelopathy or radiculopathy, lumbar region; M53.3 Sacrococcygeal disorders, not elsewhere classified; M96.1 Postlaminectomy syndrome, not elsewhere classified
CPT/HCPCS: G0463

== ENCOUNTER 2024-10-17 08:51 | Outpatient (OUT) | payer OTHER, SELFPAY ==
--- OUTSIDE RECORDS SUMMARY | 2023-12-16 05:30 | XMS_ITS ---
Author Organization [facility] Address [address] [place] [address] Care Team Providers Care Alteration Specialist Name Role Phone Nicole Collado Unavailable [phone] Tejas Newell Unavailable Unavailable [place], Salima Unavailable [phone] Allergies Allergen (clinical drug ingredient) Drug/Non Drug Allergy documented on EMR Reaction Allergy Type Onset Date Status morphine morphine Unknown Drug Allergy Active REASON FOR VISIT LUMBAR INCISION CHECK Medications Medication SIG (Take, Route, Frequency, Duration) Notes Start Date End Date Status ibuprofen Active Flexeril 10 mg 1 tab(s) orally 3 ti mes a day 12/16/2023 Active Medrol Dosepak 4 mg as directed as directed 2023 Active Flexeril 10 mg 1 tab(s) orally 3 ti mes a day prn muscle spasms 09/05/2023 Active Cyclobenzaprine Hydrochlorid e 10 mg 1 tab(s) orally 3 times a day prn muscle spasms 10/14/2023 Active Calcium 600+D Active Vitamin B-12 Active rosuvastatin Active Cymbalta Active Lewis Aspirin Active Encounters Encounter Location Date Provider Diagnosis [facility] Office [address] [facility] [place] [address] [place] [address] 12/16/2023 Salima Mastersland Disruption of external operation (surgical) wound, not elsewhere classified, subsequent encounter T81.31XD Assessments Encounter Date Diagnosis (ICD Code) Assessment Notes Treatment Notes Treatment Clinical Notes Section Notes 12/16/2023 Disruption of external operation (surgical) wound, not elsewhere classified, subsequent encounter (ICD-10 - T81.31XD) 1. Postoperative wound incision recheck 12/16/2023 Other Patient's midline lumbar incision has closed and is without infection on exam today. Patient request a refill of Flexeril and appears to be having some SI joint pain, which I have refilled for her. We will see her back at her regularly scheduled 6-month postop recheck. The patient is very much in agreement with the treatment and/or diagnostic plan set forth and all questions were answered to the patient's satisfaction. Thanks once again. If we can be of further service to your patients with disorders of the spine, cervical, thoracic, or lumbar, please do not hesitate to contact Dr. Pineda. Best regards, 1. Postoperative wound incision recheck Plan Of Treatment Medication Medication Name Sig Start Date Stop Date Notes Flexeril 10 mg 1 tab(s) orally 3 times a day 12/16/2023 Treatment Notes Assessment Notes Other Patient's midline lumbar incision has closed and is without infection on exam today. Patient request a refill of Flexeril and appears to be having some SI joint pain, which I have refilled for her. We will see her back at her regularly scheduled 6-month postop recheck. The patient is very much in agreement with the treatment and/or diagnostic plan set forth and all questions were answered to the patient's satisfaction. Thanks once again. If we can be of further service to your patients with disorders of the spine, cervical, thoracic, or lumbar, please do not hesitate to contact Dr. Pineda. Best regards, Next Appt Details Follow Up: 6 Months, Reason: Progress Notes * RAHEEM DUNCAN MDOB: [birth year] (54 yo F)Acc No.[id number]:12/16/2023 Patient: RAHEEM GUERIN Provider: JACKY Hall :1970 A ge:53 Y S ex:Female Date:12/16/2023 Address[address] Subjective: * Chief Complaints: * 1 . LUMBAR INCISION CHECK. * HPI: G eneral Follow Up Information: Dictated by Salima Agustin PA-C Patient returns the office today for a wound recheck of her surgical incision s/p I&D in September. Patient denies any drainage from wound, fever, night sweats, or chills. Patient's pain is starting to improve and she has started physical therapy which also helps her left knee. * ROS: C onstitutional: Denies C hills. D enies N ight Sweats. D enies?Fever. * Medical History: O steoarthritis, Anxiety, Depression. * Surgical History: F usion , Pain pump implant , L3-4 laminectomy, PSF 08/2023, Lumbar wound I & D, closure 09/2023. * Family History: G randparents: diagnosed with Diabetes. M other: diagnosed with Arthritis. * Social History: D oes Anyone in your household smoke ? Y es. E xercise regularly D o you exercise? N o. W hat is your place of residence? W here do you live? P rivate home. * Medications: T aking Calcium 600+D , Taking Vitamin B-12 , Taking Cymbalta , Taking Lewis Aspirin , Taking rosuvastatin , Taking ibuprofen , Taking Flexeril 10 mg tablet 1 tab(s) orally 3 times a day prn muscle spasms , Taking Cyclobenzaprine Hydrochloride 10 mg tablet 1 tab(s) orally 3 times a day prn muscle spasms , Taking Medrol Dosepak 4 mg tablet as directed as directed , Medication List reviewed and reconciled with the patient * Allergies: M orphine. Objective: * Vitals: * Examination: G eneral examination: O n examination, the patient is well-developed, well-nourished, well-groomed, alert and oriented x3, normal mood. Patient walks with steady gait. The 2 small areas of dehiscence in her midline lumbar incision that were draining and are now closed with no drainage, erythema, or warmth to touch. Tender to palpation of the SI joints bilaterally. X -ray Imaging Studies: N one taken today. . M RI Imaging Studies: Assessment: * Assessment: 1. D isruption of external operation (surgical) wound, not elsewhere classified, subsequent encounter - T81.31XD (Primary) 1. Postoperative wound incis ion recheck. Plan: * Treatment: * Follow Up: 6 Months Forms: * Images: * Sign off status: Completed true * Provider: JACKY Hall Date: 0 12/16/2023 Generated for Cecille quinn/Alecia/Brigetteitting on: 0 10/17/2024 08:54 AM EDT History and Physical Notes * HPI (History of Present Illness) Category Sub-Category Detail Notes Category Not es General Follow Up Information Dictated by Salima Agustin PA-C Patient returns the office today for a wound recheck of her surgical incision s/p I&D in September. Patient denies any drainage from wound, fever, night sweats, or chills. Patient's pain is starting to improve and she has started physical therapy which also helps her left knee. Examination Category Sub-Category Detail Notes Category Not es General examination On exami nation, the patient is well-developed, well-nourished, well-groomed, alert and oriented x3, normal mood. Patient walks with steady gait. The 2 small areas of dehiscence in her midline lumbar incision that were draining and are now closed with no drainage, erythema, or warmth to touch. Tender to palpation of the SI joints bilaterally. X-ray Imaging Studies None taken today. MRI Imaging Studies
--- OUTSIDE RECORDS SUMMARY | 2024-02-17 05:50 | XMS_ITS ---
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 Name Role Phone Nicole Collado Unavailable [phone] Tejas Newell Unavailable Unavailable Salima Agustin Unavailable [phone] Allergies Allergen (clinical drug ingredient) Drug/Non Drug Allergy documented on EMR Reaction Allergy Type Onset Date Status morphine morphine Unknown Drug Allergy Active REASON FOR VISIT LUMBAR/LEG PAIN Medications Medication SIG (Take, Route, Frequency, Duration) Notes Start Date End Date Status Cyclobenzaprine Hydrochlorid e 10 mg 1 tab(s) orally 3 times a day prn muscle spasms 10/14/2023 Active Medrol Dosepak 4 mg as directed as directed 2023 Active ibuprofen Active Flexeril 10 mg 1 tab(s) orally 3 ti mes a day prn muscle spasms 09/05/2023 Active Flexeril 10 mg 1 tab(s) orally 3 ti mes a day 12/16/2023 Active Cymbalta Active Lewis Aspirin Active rosuvastatin Active Calcium 600+D Active Vitamin B-12 Active Encounters Encounter Location Date Provider Diagnosis [facility] Office [address] [place] [address] [place] [address] 02/17/2024 Salima Agustin Trochanteric bursitis, left hip M70.62 Assessments Encounter Date Diagnosis (ICD Code) Assessment Notes Treatment Notes Treatment Clinical Notes Section Notes 02/17/2024 Trochanteric bursitis, left hip (ICD-10 - M70.62) 1. 6 months s/p L3-4 decompression/f usion and I& 2. Left greater trochanteric bursitis 02/17/2024 Other Plan established by Dr. Pineda. Patient evaluated by myself and Dr. Pineda today. Patient seems to be having a lot of issue with her greater trochanteric bursitis. Risks and benefits of injection were discussed with patient and she would like to proceed. Dr. Pineda did provide her with a corticosteroid injection today. We will see her back at her regularly scheduled postop appointment to reassess her progress. The patient is very much in agreement with the treatment and/or diagnostic plan set forth and all questions were answered to the patient's satisfaction. Thanks once again. If we can be of further service to your patients with disorders of the spine, cervical, thoracic, or lumbar, please do not hesitate to contact Dr. Pineda. Best regards, 1. 6 months s/p L3-4 decompression/f usion and I& 2. Left greater trochanteric bursitis Plan Of Treatment Treatment Notes Assessment Notes Other Plan established by Dr. Pineda. Patient evaluated by myself and Dr. Pineda today. Patient seems to be having a lot of issue with her greater trochanteric bursitis. Risks and benefits of injection were discussed with patient and she would like to proceed. Dr. Pineda did provide her with a corticosteroid injection today. We will see her back at her regularly scheduled postop appointment to reassess her progress. The patient is very much in agreement with the treatment and/or diagnostic plan set forth and all questions were answered to the patient's satisfaction. Thanks once again. If we can be of further service to your patients with disorders of the spine, cervical, thoracic, or lumbar, please do not hesitate to contact Dr. Pineda. Best regards, Pending Test Test Name Order Date Lumbar spine 2v ap and lat - [id number] 02/16 Next Appt Details Follow Up: prn, Reason: Procedure Notes * Category Sub-Category Detail Notes Depo-Medrol Injection Injection: Depo-Medro l 80 mg Location: Left hip Procedure: Dictated by Dr. Pineda: The patient's left greater troch was prepped and sterilized with alcohol and iodine. An injection consisting of 1mL of Depo-Medrol 80mg, 5mL of Marcaine and 5 mL of lidocaine 1 percent was injected into the left greater troch using a 10 mL syringe and a 22-gauge needle. After the injection was given, the site was cleaned with alcohol and a band-aid was applied Reaction: After the injection, the patient sat in the room for a few minutes. When I returned, the patient has decreased pain with palpation to the left greater troch. The patient also had good range of motion to the left hip. The patient tolerated the procedure Progress Notes * RAHEEM DUNCAN MDOB: [birth year] (54 yo F)Acc No.[id number]:02/17/2024 Patient: Susan VEGA RAHEEM M Provider: JACKY Hall :1970 A ge:54 Y S ex:Female Date:02/17/2024 Address:[address] [place], [place] [id number] Subjective: * Chief Complaints: * 1 . LUMBAR/LEG PAIN. * HPI: G eneral Follow Up Information: Dictated by Salima Agustin PA-C Patient returns to the office today 4 weeks after her last appointment with complaints of increasing back pain and left lower extremity pain. Patient is now approximately 6 months status post L3-4 decompression/fusion as well as an I&D of her surgical wound. She returns to the office early her and her scheduled appointment stating that she is starting to fall again given her left lower extremity pain. It is starting to feel like it was before surgery. She states that she is having anterior and posterior left thigh numbness. Patient states that she is taking ibuprofen and Flexeril that does not help and she is also done physical therapy for strengthening which has not helped. Patient does have a pain pump that she states is turned down at this time as they are trying to switch her to a different medication. Patient denies bowel or bladder complaints. * ROS: M usculoskeletal: Admits B ack Pain. * Medical History: O steoarthritis, Anxiety, Depression. [...] mg tablet as directed as directed , Taking Flexeril 10 mg tablet 1 tab(s) orally 3 times a day , Medication List reviewed and reconciled with the patient * Allergies: M orphine. Objective: * Vitals: * Examination: G eneral examination: O n examination, the patient is well-developed, well-nourished, well-groomed, alert and oriented x3, normal mood. Patient walks with steady gait. Limited lumbar ROM. Midline tender over the lumbar spine and left greater trochanteric bursa. 5/5 muscle strength bilateral lower extremities. Sensory intact lower extremities. X -ray Imaging Studies: 2 V Lumbar spine AP/Lat done in office today and reviewed and interpreted by myself showing instrumentation from L3-4. No complications with the hardware. No signs of instability or acute fractures. . M RI Imaging Studies: Assessment: * Assessment: 1. T rochanteric bursitis, left hip - M70.62 (Primary) 1. 6 months s/p L3-4 decompr ession/fusion and I& 2. Left greater trochanteric bursitis. Plan: * Treatment: * Procedures: D epo-Medrol Injection: Injection: D epo-Medrol 80 mg. L ocation: L eft hip. P rocedure: D ictated by Dr. Pineda: The patient's left greater troch was prepped and sterilized with alcohol and iodine. An injection consisting of 1mL of Depo-Medrol 80mg, 5mL of Marcaine and 5 mL of lidocaine 1 percent was injected into the left greater troch using a 10 mL syringe and a 22-gauge needle. After the injection was given, the site was cleaned with alcohol and a band-aid was applied. R eaction: A fter the injection, the patient sat in the room for a few minutes. When I returned, the patient has decreased pain with palpation to the left greater troch. The patient also had good range of motion to the left hip. The patient tolerated the procedure. * Procedure Codes: 2 0610 Injection major joint/bursa, Modifiers: LT , J1010 Injection, Methylprednisolone Acetate 1 mg, Units: 80.00 * Follow Up: p rn Forms: * * Sign off status: Completed true * Provider: JACKY Hall Date: 1 Generated for Cecille quinn/Alecia/Shyann on: 0 10/17/2024 08:54 AM EDT History and Physical Notes * HPI (History of Present Illness) Category Sub-Category Detail Notes Category Not es General Follow Up Information Dictated by Salima Agustin PA-C Patient returns to the office today 4 weeks after her last appointment with complaints of increasing back pain and left lower extremity pain. Patient is now approximately 6 months status post L3-4 decompression/fusion as well as an I&D of her surgical wound. She returns to the office early her and her scheduled appointment stating that she is starting to fall again given her left lower extremity pain. It is starting to feel like it was before surgery. She states that she is having anterior and posterior left thigh numbness. Patient states that she is taking ibuprofen and Flexeril that does not help and she is also done physical therapy for strengthening which has not helped. Patient does have a pain pump that she states is turned down at this time as they are trying to switch her to a different medication. Patient denies bowel or bladder complaints. Examination Category Sub-Category Detail Notes Category Not es General examination On exami nation, the patient is well-developed, well-nourished, well-groomed, alert and oriented x3, normal mood. Patient walks with steady gait. Limited lumbar ROM. Midline tender over the lumbar spine and left greater trochanteric bursa. 5/5 muscle strength bilateral lower extremities. Sensory intact lower extremities. X-ray Imaging Studies 2V Lumbar spine AP/Lat done in office today and reviewed and interpreted by myself showing instrumentation from L3-4. No complications with the hardware. No signs of instability or acute fractures. MRI Imaging Studies
--- OUTSIDE RECORDS SUMMARY | 2024-06-22 04:30 | XMS_ITS ---
Author Organization [facility] Address [address] [place] [address] Care Team Providers Care Project Systems Engineer Name Role Phone Nicole Collado Unavailable [phone] LatashamiloTejas Unavailable Unavailable REASON FOR VISIT LUMBAR [...] Active Encounters Encounter Location Date Provider Diagnosis [facility] Office [address] [place] [address] [place] [address] 06/22/2024 Nicole Collado Aftercare following surgery of the musculoskeletal system Z47.89 Assessments Encounter Date Diagnosis (ICD Code) Assessment Notes Treatment Notes Treatment Clinical Notes Section Notes 06/22/2024 Aftercare following surgery of the musculoskeletal system (ICD-10 - Z47.89) Plan Of Treatment Pending Test Test Name Order Date Lumbar spine, 4v flex ext - [id number] 2024 Progress Notes * RAHEEM DUNCAN MDOB: [birth year] (54 yo F)Acc No.[id number]:06/22/2024 Patient: RAHEEM GUERIN Provider: Taz Pineda MD, PhD :1970 A ge:54 Y S ex:Female Date:06/22/2024 Address:[facility] [address] [place] [address], [id number] Subjective: * Chief Complaints: * 1 . [...] signature of Samir Collado MD, PHD on 10/17/2024 at 08:53 AM EDT Sign off status: Pending * Provider: Taz Pineda MD, PhD Date: 06/22/2024 Generated for Cecille quinn/Alecia/Brigetteitting on: 0 10/17/2024 08:53 AM EDT
--- OUTSIDE RECORDS SUMMARY | 2024-10-17 08:54 | XMS_ITS | Encounter Summary ---
Author Organization [facility] tem Address [id number] [address] [place] [address] Care Team Providers Care Retail Account Specialist Name Role Phone Osiris Dixon DO, Charles L Primary Care Provider Reason for Referral * Diagnostic Imaging (Routine) - Pending Review Specialty Diagnoses / Procedures Referred By Contmarce t Referred To Contact Radiology Diagnoses Receiving intravenous antibiotic treatment at home Procedures IR PICC line PICC RN without port pump more than 5 years without guidance Albert Roman MD [address] [place] [address] Phone: tel: fax: Referral ID Status Reason Start Date Expiration Date V isits Requested Visits Authorized [id number] Pending Review 03/16/2024 03/16/2025 1 1 Encounter Details Date Type Department Care Team (Late st Contact Info) Description 03/16/2024 Orders Only [facility] - Interventional Radiology [address] [place] [address] Albert Roman MD [address] [place] [address] Receiving intravenous antibiotic treatment at home (Primary Dx) Social History Tobacco Use Types Packs/Day Years Used Date Smoking Tobacco: Former Cigarettes Smokeless Tobacco: Never Alcohol Use Standard Drinks/Week Comments No 0 (1 standard drink = 0.6 oz pur e alcohol) Childcare Answer Date Recorded Childcare Unknown 10/25/2018 Employment Answer Date Recorded Employment Unknown 10/25/2018 Hunger Screening Answer Date Recorded Within the past 12 months we worried whether our food would run out before we got money to buy more. Never True 03/14/2023 Within the past 12 months th e food we bought just didn't last and we didn't have money to get more. Never True 03/14/2023 Purpose - Life Answer Date Recorded Purpose and direction in life Unknown Comments No Sex and Gender Information Value Date Recorded Sex Assigned at Not on file Legal Sex Female 11:27 AM EDT Gender Identity Not on file Sexual Orientation Not on file documented as of this encounter Plan of Treatment Scheduled Orders Name Type Priority Associated Diagnoses Orde r Schedule IR PICC line PICC RN without port pump more than 5 years without guidance Imaging Routine Receiving intravenous antibiotic treatment at home Expected: 03/16/2024, Expires: 03/16/2025 documented as of this encounter Visit Diagnoses Diagnosis Receiving intravenous antibiotic treatment at home- Primary documented in this encounter Care Teams Retail Account Specialist Relationship Specialty Start Date End Date Tejas Newell Jr., [address] [place] [address] PCP - General Internal Medicine 11/03/16 documented as of this encounter
--- OUTSIDE RECORDS SUMMARY | 2024-10-17 08:54 | XMS_ITS | Encounter Summary ---
Author [facility] Address [id number] [address] [place] [address] Care Team Providers Care Data Software Engineer Name Role Phone Osiris Dixon Tejas Roddy Primary Care Provider Encounter Details Date Type Department Care Team (Late st Contact Info) Description 03/24/2023 Orders Only [facility] [address] [facility] [address] [place] [address] Lei Jung MD [address] [facility] [address] [place] [address] Lumbar spondylosis Social History Tobacco Use Types Packs/Day Years [...] as of this encounter Plan of Treatment Pending Results Name Type Priority Associated Diagnoses Date /Time Ambulatory referral to Neurology Outpatient Referral Routine Lumbar spondylosis 03/22/2023 2:27 PM EST documented as of this encounter Visit Diagnoses Diagnosis Lumbar spondylosis Lumbosacral spondylosis without myelopathy documented in this encounter Care Teams Data Software Engineer Relationship Specialty Start Date End Date Tejas Newell Jr., [address] [place] [address] PCP - General Internal Medicine 11/03/16 documented as of this encounter
--- OUTSIDE RECORDS SUMMARY | 2024-10-17 08:54 | XMS_ITS | Clinical Summary ---
Author Organization [employer] s [employer] Address [id number] [address] [place] [address] Care Team Providers Care Employee Health Nurse Name Role Phone Osiris Dixon DOTejas Roddy Primary Care Provider Allergies Active Allergy Reactions Criticality Noted Date Comments Morphine 10/18/2022 Medications DULoxetine (CYMBALTA) 60 mg capsule Take 1 capsule (60 mg total) by mouth in the morning and 1 capsule (60 mg total) before bedtime. Active ibuprofen (ADVIL,MOTRIN) 800 mg tablet Take 1 tablet (800 mg total) by mouth 3 (three) times a day as needed for pain. Active MULTIVIT WITH MINERALS/LUTEIN (MULTIVITAMIN 50 PLUS ORAL) Take 1 tablet by mouth daily. Active calcium carbonate-vitam in D3 (OSCAL 500 + D) 500 mg(1,250mg) -200 units per tablet Take 1 tablet by mouth in the morning and 1 tablet in the evening. Take with meals. Active OXcarbazepine (TRILEPTAL) 150 mg tablet Take 300 mg by mouth 2 (two) times a day. Active linaCLOtide (LINZESS) 145 mcg capsule 1 capsule (145 mcg total) every morning before breakfast. PRN Active buPROPion SR (WELLBUTRIN SR) 150 mg 12 hr tablet Take 1 tablet (150 mg total) by mouth in the morning and 1 tablet (150 mg total) before bedtime. 0 Active SYMBICORT 160-4.5 mcg/actuation inhaler 0 Active NON FORMULARY Unknown cholesterol med Active NON FORMULARY Morphine pump Ac tive sertraline (ZOLOFT) 50 mg tablet Take 50 mg by mouth nightly. 1 Active rosuvastatin (CRESTOR) 5 mg tablet Take 1 tablet (5 mg total) by mouth in the morning. 1 Active spironolactone (ALDACTONE) 25 mg tablet Take 1 tablet (25 mg total) by mouth in the morning. Active ertugliflozin (STEGLATRO) 15 mg tablet Take 7.5 mg by mouth in the morning. Active gabapentin enacarbil (HORIZANT) 600 mg tablet extended release Take 1 tablet (600 mg total) by mouth in the morning. Active aspirin 81 mg Take 1 tablet (81 mg total) by mouth in the morning. Active Active Problems Problem Noted Date Diagnosed Date Vaginal atrophy 07/29/2020 Dyspareunia in female 06/17/2020 Cervical radiculopathy 10/26/2017 Overview (10/26/2017): Added automatically from request for surgery [id number] Occipital neuralgia of left side 07/06/2017 Overview (07/06/2017): Added automatically from request for surgery [id number] Chronic migraine without aur a, with intractable migraine, so stated, with status migrainosus 06/01/2017 Overview (06/01/2017): Added automatically from request for surgery [id number] Cervical spondylosis without myelopathy 05/04/20 17 Cervical stenosis of spine 03/28/2017 Family History Medical History Relation Name Comments Diabetes Maternal Grandfather Colon cancer Maternal Uncle Back Problems Mother Breast cancer Neg Hx Relation Name Status Comments Father Maternal Grandfather Maternal Uncle Mother Alive Social History Tobacco Use Types Packs/Day Years [...] on file Sexual Orientation Not on file Last Filed Vital Signs Vital Sign Reading Time Taken Comments Blood Pressure 103/53 10/28/2022 12:11 PM EDT Pulse 70 10/28/2022 12:11 PM EDT Temperature 36.5 C (97.7 F) 09/02/2017 9:55 AM EDT Respiratory Rate 16 06/17/2020 10:51 AM EST Oxygen Saturation 98% 10/18/2022 10:35 AM EDT Inhaled Oxygen Concentration - - Weight 94.8 kg (209 lb) 03/14/2023 10:14 AM EDT Height 157.5 cm (5' 2 ) 03/14/2023 10:14 AM EDT Body Mass Index 38.23 03/14/2023 10:14 AM EDT Plan of Treatment Health Maintenance Due Date Last Done Comments Depression Screening 1981 DTaP,Tdap and Td Vaccines (1 - Tdap) 01/08/1988 Zoster (Shingles) Vaccine (1 of 2) 2019 Pap Smear 02/06/2023 02/07/2020, 02/07/2020 Adult BMI Screening 03/14/2024 03/14/2023 Tobacco Screening 03/14/2024 03/14/2023 Influenza Vaccine 01/14/2025 03/06/2020 Medical Devices Implanted Type Area Consumer Loan Processor Device Identifier Shelf Expiration Date Model / Serial / Lot Neuro Pump Pump [employer] [facility] 8637-20 / [id number] / Procedures Procedure Name Priority Date/Time Associated Diagnosis Comments HIGH RISK HPV W/MELIA Routine 02/07/2020 1:47 PM EDT Cervical smear, as part of routine gynecological examination from Last 3 Months or Most Recently Relevant to Health Maintenance Results * High risk HPV w/melia (02/07/2020 1:47 PM EDT) Hpv specimen type ThinPrep 02/07/2020 5:[address] [facility] Hpv 16 Negative Negative^N egative 02/12/2020 7:54 AM EDT [facility] Hpv 18 Negative Negative^N egative 02/12/2020 7:54 AM EDT [facility] Other high risk hpv Negative Negative^N egative 02/12/2020 7:54 AM EDT [facility] Comment: HPV types 31,33,35,39,45,52,56,58,59,66 and 68 DNA were undetectable. Serum / Unknown 02/07/2020 1 :47 PM EDT 02/07/2020 6:01 PM EDT us Adriana Cooper MD LAB BLOOD ORDERABLES Final Resul t Performing Organization Address City/State/[facility] Co de Phone Number TAMAR [facility] [address] [facility], [place] [address] [facility] [address] [place] [address], [address] [place] [address] from Last 3 Months or Most Recently Relevant to Health Maintenance Insurance Care Teams Employee Health Nurse Relationship Specialty Start Date End Date Tejas Newell Jr., DO [address] [place] [address] PCP - General Internal Medicine 11/03/16
--- OUTSIDE RECORDS SUMMARY | 2024-10-17 08:54 | XMS_ITS | Patient Health Record ---
Author Organization [facility] Address [address] [place] [address] Care Team Providers Care Computer Operations Manager Name Role Phone Nicole Collado Unavailable [phone] Tejas Newell Unavailable Unavailable ChristianJeffrey mcclure Unavailable [phone] Salima Agustin Unavailable [phone] Allergies Allergen (clinical drug ingredient) Drug/Non Drug Allergy documented on EMR Reaction Allergy Type Onset Date Status morphine morphine Unknown Drug Allergy Active Reason For Referral Reason APPROVED............ ..............NOT SCHEDULED...................[facility] MRI LUMBAR TO BE DONE AT [facility] Diagnosis 1 DDD (degenerative di sc disease), lumbar (M51.36) Referral Organization [facility] Referring Provider First Name Nicole Referring Provider Last Name [facility] Referring Provider Speciality Orthopedic Surgery Referred Organization [facility] Referred Address [place], [place], Procedure 1 MRI Lumbar Spine w/o Dye ([id number]) General Notes Ailyn aGrg 2023 09:04:28 AM >, Lilly Ibarra 11/11/2023 09:17:23 AM > WAITING ON SFS NOTE FROM 11/04/23 TO SUBMIT AUTHORIZATION REQUEST., Ailyn Garg 11/11/2023 09:23:48 AM >THAT NOTE IS FROM WHEN JEFFREY SEEN PATIENT IN [place] TO REMPVE SUTURES AND THE PATIENT HAD NO COMPLAINTS OF INCONTINENCE AT THAT TIME. MADISYN GOT A CALL FROM HER PAIN MANAGEMENT PROVIDER STATING THAT PATIENT IS HAVING INCONTINENCE AND SHE WANTS TO ORDER AN MRI. NO DOCUMENTATION WILL COME OTHER THAN THE TELEPHONE ENCOUNTER THAT WAS PLACED IN THE SYSTEM.Stacey Kayla 11/11/2023 10:48:52 AM > CALLED [facility] AND SPOKE WITH MARKOS Eagle, AUTHORIZATION # [id number] APPROVED AND VALID 11/11/23-02/08/24. HE IS FAXING ME A COPY OF APPROVAL LETTER. FAXED REFERRAL TO [facility].Britany Dawn 11/11/2023 12:26:56 PM >FAXED Referral Priority Urgent Medications Medication SIG (Take, Route, Frequency, Duration) Notes Start Date End Date Status ibuprofen Active Flexeril 10 mg 1 tab(s) orally 3 ti mes a day prn muscle spasms 09/05/2023 Active Cyclobenzaprine Hydrochlorid e 10 mg 1 tab(s) orally 3 times a day prn muscle spasms 10/14/2023 Active Medrol Dosepak 4 mg as directed as directed 2023 Active Cymbalta Active Lewis Aspirin Active rosuvastatin Active Flexeril 10 mg 1 tab(s) orally 3 ti mes a day 12/16/2023 Active Calcium 600+D Active Vitamin B-12 Active Problems Problem Type SNOMED Code ICD Code Onset Dates Problem Status W/U Status Risk Notes Problem 853275598 Arthrodesis stat us (Z98.1) Active confirmed Problem 8930653666 Other intervertebral disc displacement, lumbar region (M51.26) Active confirmed Problem 533889698 Radiculopathy, lumbar region (M54.16) Active confirmed Problem 066349448595624 Trochanteric bursitis, left hip (M70.62) Active confirmed Problem Disruption of external operation (surgical) wound, not elsewhere classified, initial encounter (T81.31XA) Active confirmed Problem 73369670 Disruption of external operation (surgical) wound, not elsewhere classified, subsequent encounter (T81.31XD) Active confirmed Problem 20345549 DDD (degenerativ e disc disease), lumbar (M51.36) Active confirmed Problem 791562892 Urinary incontinence, unspecified type (R32) Active confirmed Problem 12211932 Spinal stenosis, lumbar region without neurogenic claudication (M48.061) Active confirmed Problem 055599660 Encounter for other orthopedic aftercare (Z47.89) Active confirmed Encounters Encounter Location Date Provider [facility] [address] [facility] [place] [address] 11/04/2023 Jeffrey Perez Aftercare following surgery of the musculoskeletal system Z47.89 and Disruption or dehiscence of closure of skin, subsequent encounter T81.31XD [facility] [address] [place] [address] 11/21/2023 [facility] Encounter for other orthopedic aftercare Z47.89 ; Disruption of external operation (surgical) wound, not elsewhere classified, subsequent encounter T81.31XD and Arthrodesis status Z98.1 [facility] [address] [place] [address] 12/02/2023 [facility] Disruption of external operation (surgical) wound, not elsewhere classified, subsequent encounter T81.31XD and Encounter for other orthopedic aftercare Z47.89 [facility] [address] [place] [address] 12/16/2023 [facility] Disruption of external operation (surgical) wound, not elsewhere classified, subsequent encounter T81.31XD [facility] [address] [place] [address] 02/17/2024 [facility] Trochanteric bursitis, left hip M70.62 [facility] [place] [address] [place] [address] 11/11/2023 Nicole Collado DDD (degenerative di sc disease), lumbar M51.36 ; Spinal stenosis, lumbar region without neurogenic claudication M48.061 ; Aftercare following surgery of the musculoskeletal system Z47.89 and Urinary incontinence, unspecified type R32 [facility] [address] [place] [address] 11/22/2023 Nicole Collado Assessments Encounter Date Diagnosis (ICD Code) Assessment Notes Treatment Notes Treatment Clinical Notes Section Notes 11/21/2023 Disruption of external operation (surgical) wound, not elsewhere classified, subsequent encounter (ICD-10 - T81.31XD) 1. S/P L3-4 decompression/f usion 2. S/P I&D surgical incision 11/21/2023 Encounter for other orthopedic aftercare (ICD-10 - Z47.89) 1. S/P L3-4 decompression/f usion 2. S/P I&D surgical incision 12/02/2023 Disruption of external operation (surgical) wound, not elsewhere classified, subsequent encounter (ICD-10 - T81.31XD) 1. Incisional wound s/p I&D 12/02/2023 Encounter for other orthopedic aftercare (ICD-10 - Z47.89) 1. Incisional wound s/p I&D 12/16/2023 Disruption of external operation (surgical) wound, not elsewhere classified, subsequent encounter (ICD-10 - T81.31XD) 1. Postoperative wound incision recheck 02/17/2024 Trochanteric bursitis, left hip (ICD-10 - M70.62) 1. 6 months s/p L3-4 decompression/f usion and I& 2. Left greater trochanteric bursitis 11/04/2023 Aftercare following surgery of the musculoskeletal system (ICD-10 - Z47.89) 1. 3 weeks status post lumbar I&D and 2 months status post L3-L4 decompression fusion 2. Lumbar drainage 11/04/2023 Disruption or dehiscence of closure of skin, subsequent encounter (ICD-10 - T81.31XD) 1. 3 weeks status post lumbar I&D and 2 months status post L3-L4 decompression fusion 2. Lumbar drainage 11/11/2023 DDD (degenerative disc disease), lumbar (ICD-10 - M51.36) 11/11/2023 Spinal stenosis, lumbar region without neurogenic claudication (ICD-10 - M48.061) 11/21/2023 Arthrodesis status (ICD-10 - Z98.1) 1. S/P L3-4 decompression/f usion 2. S/P I&D surgical incision 11/11/2023 Aftercare following surgery of the musculoskeletal system (ICD-10 - Z47.89) 11/11/2023 Urinary incontinence, unspecified type (ICD-10 - R32) 11/04/2023 Other Plan established by Dr. Pineda. Discussed with the patient today that she does need to be on antibiotics due to the fact she did have an infection. Advised her to call her infectious disease doctor to get a new antibiotic prescription or discussed with them as there is something else they could do for her with antibiotics. Dressing was changed today and sutures were removed. We will see her back in 1 to 2 weeks for reevaluation. The patient is very much in agreement with the treatment and/or diagnostic plan set forth and all questions were answered to the patient's satisfaction. Thanks once again. If we can be of further service to your patients with disorders of the spine, cervical, thoracic, or lumbar, please do not hesitate to contact Dr. Pineda. Best regards, 1. 3 weeks status post lumbar I&D and 2 months status post L3-L4 decompression fusion 2. Lumbar drainage 11/21/2023 Other Plan established by Dr. Pineda. I will order an MRI of the lumbar spine given the patient's nonhealing/ draining wound. I will also prescribe a Medrol Dosepak for her persistent SI joint pain. Her wound was dressed and I encouraged her to continue wound care at home. We will see her back after her MRI is complete. The patient is very much in agreement with the treatment and/or diagnostic plan set forth and all questions were answered to the patient's satisfaction. Thanks once again. If we can be of further service to your patients with disorders of the spine, cervical, thoracic, or lumbar, please do not hesitate to contact Dr. Pineda. Best regards, 1. S/P L3-4 decompression/f usion 2. S/P I&D surgical incision 12/02/2023 Other Plan established by Dr. Pineda. The patient's wounds do not appear to be infected and there is no large fluid collection noted on her MRI. I will continue with wound care and I have discussed the patient needs to avoid water submersion of her wounds, such as baths and swimming. We will see her back in 2 weeks for a wound recheck. The patient is very much in agreement with the treatment and/or diagnostic plan set forth and all questions were answered to the patient's satisfaction. Thanks once again. If we can be of further service to your patients with disorders of the spine, cervical, thoracic, or lumbar, please do not hesitate to contact Dr. Pineda. 11/28/23 1. Incisional wound s/p I&D 12/16/2023 Other Patient's midline lumbar incision has [...] Best regards, 1. Postoperative wound incision recheck 02/17/2024 Other Plan established by Dr. Pineda. [...] Left greater trochanteric bursitis Plan Of Treatment Pending Test Test Name Order Date Lumbar spine, 4v flex ext - 81686 2023 Lumbar spine, 4v flex ext - 89775 2023 Lumbar spine 2v ap and lat - 82628 02/16 Lumbar spine 2v ap and lat - 30996 10/06 Lumbar spine 2v ap and lat - 55652 11/03 DME - Lumbar Support, Surgical OTS 08/25 SFS - Lumbar Spine PT Order, Isometrics & Strenghening w/Modalities as needed, 2-3 times per week for 6 weeks 07/15/2023 MRI : Lumbosacral Spine W/O Contrast - 7 [id number] 11/11/2023 Future Test Test Name Order Date Chest 2 views - [id number] 08/03/2023 CBC 08/03/2023 Type and Screen Blood Type 08/03/2023 PT/PTT 08/03/2023 BMP 08/03/2023 MRSA (Bilateral Nares) PCR 08/03/2023 EKG 08/03/2023 Insurance Providers Payer Name Payer Address Payer Phone Subscriber Number Group Number Insured Name Patient Relationship to Insured Coverage Start Date Coverage End Date [employer] [address] [address] [place] [address] [id number] RAHEEM DUNCAN Self - patient is the insured Medical (General) History Medical History History ICD Code Osteoarthritis Anxiety Depression Surgical History Surgery Date(Month/Year) Lumbar wound I & D, closure 09/2023 L3-4 laminectomy, PSF 08/2023 Pain pump implant Fusion
--- OUTSIDE RECORDS SUMMARY | 2024-10-17 08:54 | XMS_ITS | Clinical Summary ---
Author Organization [facility] Address [address] [place] [address] Care Team Providers Care Operations Agent Name Role Phone Tejas Newell DO Primary Care Provider Social History Tobacco Use Types Packs/Day Years Used Date Smoking Tobacco: Never Assessed Comments Unknown Sex and Gender Information Value Date Recorded Sex Assigned at Not on file Legal Sex Female 1:47 PM EST Gender Identity Not on file Sexual Orientation Not on file Plan of Treatment Not on file Insurance [employer] Care Teams Operations Agent Relationship Specialty Start Date End Date Tejas Newell DO [facility] [place] [address] PCP - General Internal Medicine 05/01/19
--- OUTSIDE RECORDS SUMMARY | 2024-10-17 08:54 | XMS_ITS | Clinical Summary ---
Author Organization [facility] Address [address] [place] [address] Care Team Providers Care Medical Billing Specialist Name Role Phone Osiris Dixon DO, Charles Lewis Primary Care Provi sourav Terry Martinez MD Unavailable Hussein Aguilar Unavailable Allergies No known active allergies Medications BACLOFEN ORAL Take 100 mg by mouth once daily. Active OXcarbazepine (TRILEPTAL) 150 mg tabletIndication s:Facet syndrome,Pain in thoracic spine,Radiculopa thy, cervical region,Vitamin D deficiency,Local ized swelling, mass and lump, trunk,Cervical post-laminectomy syndrome,Cervica l spondylosis without myelopathy,Curre nt smoker,Malaise and fatigue,Spinal stenosis of cervical region Take 1 tablet by mouth twice daily. 8 Active oxyCODONE-acetam inophen (PERCOCET) 5-325 mg tabletIndication s:Facet syndrome,Pain in thoracic spine,Radiculopa thy, cervical region,Vitamin D deficiency,Local ized swelling, mass and lump, trunk,Cervical post-laminectomy syndrome,Cervica l spondylosis without myelopathy,Curre nt smoker,Malaise and fatigue,Spinal stenosis of cervical region Take 1 tablet by mouth every 4 hours as needed. 0 8 Active DULoxetine (CYMBALTA) 60 mg capsule Cymbalta 60 mg capsule,delay ed release Take 1 capsule twice a day by oral route. Active Active Problems Problem Noted Date Diagnosed Date Neck pain 12/01/2015 Cervical spondylolysis 12/01/2015 Back pain Former smoker Family History Medical History Relation Comments Arthritis Maternal Grandmother Cancer Maternal Uncle Arthritis Mother Hypertension Paternal Grandfather Stroke Paternal Grandfather Relation Status Comments Maternal Grandmother Maternal Uncle Mother Paternal Grandfather Social History Tobacco Use Types Packs/Day Years Used Date Smoking Tobacco: Former Cigarettes 1 30 Smokeless Tobacco: Never Alcohol Use Standard Drinks/Week Comments No 0 (1 standard drink = 0.6 oz pur e alcohol) Area Deprivation Index Answer Date Anibal rded National Score (1-100), lower number is lower ri sk Not on file 04/24/2020 State Score (1-10), lower number is lower risk N ot on file 04/24/2020 Data from: https://www.neighborhoodatlas.medicine.[facility].edu/. 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 Not on file Not on file Not on file Last Filed Vital Signs Vital Sign Reading Time Taken Comments Blood Pressure 132/47 02/10/2018 10:43 AM EDT Pulse 80 02/10/2018 10:43 AM EDT Temperature - - Respiratory Rate 16 02/10/2018 10:43 AM EDT Oxygen Saturation - - Inhaled Oxygen Concentration - - Weight 69.9 kg (154 lb) 02/10/2018 10:43 AM EDT Height 162.6 cm (5' 4 ) 12/01/2015 2:48 PM EDT Body Mass Index 26.43 12/01/2015 2:48 PM EDT Plan of Treatment Health Maintenance Due Date Last Done Comments Anxiety Screening 1987 Depression Screening 1987 HIV Screening 1987 Hepatitis C Screening 1987 DTaP,Tdap,Td Vaccine (1 - Tdap) 01/08/1988 Hepatitis B Vaccine (1 of 3 - 19+ 3-dose series) 01/07 Cervical Cancer Screening 1990 CT Colonography 2014 Cologuard (FIT-DNA) 2014 Colonoscopy 2014 Colorectal Cancer Screening 2014 Diabetes Screening 2014 Fecal Occult Blood 2014 Lipid Screening 2014 Sigmoidoscopy 2014 Mammogram Screening 12/19/2018 12/19/2017 Pneumococcal Vaccine: 50+ (1 of 1 - PCV) 2019 Shingrix Vaccine (1 of 2) 2019 Covid-19 Vaccine (1 - season) 2024 Influenza Vaccine (Season Ended) 2025 Care Teams Medical Billing Specialist Relationship Specialty Start Date End Date Tejas Newell Jr., [facility] [place] [phone] PCP - General Internal Medicine 11/26/15 Terry Martinez MD [facility] [place] [address] Referring Neurology 11/26/15 Hussein Aguilar PA [facility] [place] [address] Referring Pain Management 11/28/17
--- NOTE | 2024-10-17 09:07 | PM.CN ---
Consult Note: HPI Data of Consult Patient: known to practice within the last 3 years Requesting Physician: Anh Gatica NP Primary Care Provider: ULYSSES RICHARDSON DO Consult Narrative Reason for consult: low back, left leg pain Narrative: [id number] who presents for evaluation. low back pain. imaging shows multilevel degnerative changes, stenosis, fusion at l3-4. fusion performed last year, had infection and reoperated last year. has engaged in a series of provider directed home exercises >6 weeks, without lasting benefit. currently utilizing cymbalta 60mg daily, otc ibuprofen, pregabalin 50mg TID with swelling of the hands and ankles. pt failed to benefit from interventional therapy, does have a hx of significant infection with an intrathecal pump and scs trial. continues to endorse severe low back and left leg pain, numbness, tingling. pain today 5/10 increasing with standing, walking, pushing, pulling, housework, lifting, sleeping. pain mildly improved with sitting. cc:: CC: Anh Gatica NP Review of Systems ROS Status of ROS 10 or more systems reviewed and unremarkable except as noted in history and below Musculoskeletal Reports: back pain, extremity pain and joint pain [facility] Medical History (Updated 10/17/24 @ 09:09 by Anh Gatica NP) DDD (degenerative disc disease) Osteopenia ?M85.80 - Other specified disorders of bone density and structure, unspecified site (ICD-10) Back pain ?M54.9 - Dorsalgia, unspecified (ICD-10) Depression ?F32.A - Depression, unspecified (ICD-10) Spinal stenosis ?M48.00 - Spinal stenosis, site unspecified (ICD-10) Neuropathy ?G62.9 - Polyneuropathy, unspecified (ICD-10) Migraine ?G43.909 - Migraine, unspecified, not intractable, without status migrainosus (ICD-10) GERD (gastroesophageal reflux disease) ?K21.9 - Gastro-esophageal reflux disease without esophagitis (ICD-10) Delayed recovery from anesthesia Menopause ?Z78.0 - Asymptomatic menopausal state (ICD-10) Surgical History H/O lumbosacral spine surgery ?Z98.890 - Other specified postprocedural states (ICD-10) S/P insertion of intrathecal pump ?Z98.890 - Other specified postprocedural states (ICD-10) S/P cervical spinal fusion ?Z98.1 - Arthrodesis status (ICD-10) Family History Other Family history of colon cancer Family history of diabetes mellitus Social History Within the past year, how often did you have a drink containing alcohol: never Score interpretation: A score less than 3 is consistent with normal alcohol consumption. Smoking status: Current every day smoker What tobacco products do you use: cigarettes Packs per day: 1 Years smoked: 39 Smoking pack-years: 39.00 Non-prescribed substance use: denies use Highest level of school completed/degree received: high school graduate Meds Home Medications and Allergies Home Medications ?Medication ?Instructions ?Recorded ?Confirmed ?Type duloxetine 60 mg capsule,delayed 60 mg PO DAILY 08/17/23 08/27/24 History release (Cymbalta) rosuvastatin 5 mg tablet (Crestor) 5 mg PO DAILY 08/17/23 08/27/24 History cyclobenzaprine 10 mg tablet 10 mg PO TID PRN muscle spasm #60 06/11/24 08/27/24 Rx tabs gabapentin 600 mg tablet mg 08/21/24 History meloxicam 7.5 mg tablet mg 08/21/24 History gabapentin 600 mg tablet 600 mg PO TID #90 tabs 09/05/24 Rx Allergies Allergy/AdvReac Type Severity Reaction Status Date / Time morphine AdvReac overdose Verified 08/27/24 08:02 Exam Constitutional Documenting provider has reviewed patient's vital signs: yes Common normals: no apparent distress, oriented x3, healthy appearing, alert and well nourished General appearance: cooperative HENMA Common normals: normocephalic, hearing grossly normal bilaterally and moist oral mucous membranes Head and scalp: normocephalic Eye Common normals: PERRL Pupil: PERRL Neck & C-Spine Common normals: full ROM General: normal visual inspection Chest Common normals: inspection of chest normal Respiratory Common normals: normal respiratory effort, no retractions and no use of accessory muscles Back & Pelvis Lumbar spine/lower back: ROM limited, pain with ROM, lumbar spinal tenderness Lumbar spinal tenderness location: L4 and L5, paraspinal muscle tenderness and straight leg raise positive left Sacroiliac joints: SI joints normal Other: strength 5/5 in BLE negative left richardson(patricks), gaenslens, thigh thrust, compression test positive lumbar facet loading L4-S1 Neuro Common normals: oriented x3 Sensorium/orientation: alert Motor exam: strength 5/5 throughout and no movement abnormalities noted Psych Common normals: mental status grossly normal, thought process normal, cooperative, affect normal, speech normal and activity/motor behavior normal Speech: normal speech Thought process: normal thought process Results Additional Findings Additional findings: If on a controlled substance or opioids, I have checked an [place] report on this patient and there are no aberrancies noted in the prescribing history.??If on a controlled substance or opioid a drug screen was completed and reviewed within the last year, and if there has not been a drug screen completed we ordered one today to monitor higher risk, state monitored pain medication use. As part of providing excellent, safe, comprehensive care, the following was completed at our patient's visit: 1. A medication reconciliation and review to ensure accurate knowledge of current/active medications, including asking our patients to inform us about any [id number] medications or herbal remedies/nutritional supplements/alternative remedies. 2. A review to specifically ensure our patients have had annual screening for screening for depression, screening for tobacco use, and screening for unhealthy alcohol use. For concerning screenings had a discussion with the patient, provided patient education, and recommended follow-up with primary care provider when appropriate. If patient noted with a risk of falling, they received education on strength, gait, and balance training to prevent future risk of falling. Portions of this note may have been carried over from the previous visit and updated as appropriate. Please note this office utilizes paper charting in addition to the electronic medical record. A list of current medications, vitals, and PMH is available there as the clinical staff outside of myself do not have access to [employer] charting during the clinic day operations. As part of providing quality comprehensive care the current medications, vitals, and PMH were reviewed in the paper chart. Assessment and Plan Assessment and Plan (1) Lumbar stenosis with neurogenic claudication: Assessment and Plan: symptoms improved on exam (2) Lumbar spondylosis: (3) Sacroiliac joint dysfunction of left side: Assessment and Plan: symptoms improved on exam (4) Lumbar postlaminectomy syndrome: (5) Lumbar radiculopathy: Plan 54 year old female with chronic low back pain post lumbar fusion, pt reporting moderate to severe low back pain with numbness tingling to LLE. self discontinued meloxicam, now on ibuprofen prn. dc lyrica to due side effects. increase duloxetine 60mg AM and 30mg HS. consider additional NS consultation in the future, pt not interested in returning to Dr Velasquez. f/u 8 weeks to assess medicaiton changes
--- OUTSIDE RECORDS SUMMARY | 2024-10-17 09:15 | XMS_ITS | CCD ---
Author Organization [facility] Care Team Providers Care Reporting Developer Name Role Phone MAGED MURDOCK Unavailable Unavailable LINDSEY AGUILAR (PA) Unavailable Unavail able MONICA YAN (SQL SSRS DEVELOPER) Unavailable Unavailabl TEJAS Benavidez JR Unavailable Unavail [...] Unavailable Gisell CHONG, Christian Singletary Attending Unavailable [facility] Unavail able Gisell CHONG, Christian Singletary Attending Unavailable [facility] Unavail able Gisell CHONG, Christian Singletary Attending Unavailable [facility] Unavail able Zahira CHONG, Pavel Carr Attending Unavailable [facility] Unavail able [facility] Unavail able Yeison HENDRICKS, Hanane Finn Attending U navailable [facility] Unavail able Zahira CHONG, Pavel Carr Attending Unavailable [facility] CHONG, Nicole Neri Referring Unavailabl e Gisell CHONG, Christian Singletary Attending [facility] Unavail able Allergies Allergy Classification Reported [...] to moderate hearing loss above 4K Hz [facility] COMPLETE BLOOD COUNTon 04-24 Erythrocyte distribution width (RBC) [Ratio] 16.6 % High 11.5-15.0 [facility] Comment on above: Performed By: #### C KJ, DRESS OPERATOR #### [facility] ([id number]) [address] [address] Hematocrit (Bld) [Volume fraction] 40.9 % Normal 35-47 [facility] Comment on above: Performed By: #### Jacqueline UNDERWOOD, DRESS OPERATOR #### [facility] ([id number]) [address], [facility] [address] [place] [address] Hemoglobin (Bld) [Mass/Vol] 13.5 g/dL Normal 11.7-15.5 [facility] Comment on above: Performed By: #### C KJ, DRESS OPERATOR #### [facility] ([id number]) [address], [facility] [address] [place] [address] MCH (RBC) [Entitic mass] 32.0 pg Normal 27-34 [facility] Comment on above: Performed By: #### C KJ, DRESS OPERATOR #### [facility] ([id number]) [address], [address] [place] [address] MCHC (RBC) [Mass/Vol] 33.1 g/dL Normal 32-36 [facility] Comment on above: Performed By: #### Jacqueline UNDERWOOD, DRESS OPERATOR #### [facility] ([id number]) [address], [address] [place] [address] MCV (RBC) [Entitic vol] 97 fL Normal 80-100 [facility] Comment on above: Performed By: #### C KJ, DRESS OPERATOR #### [facility] ([id number]) [address] [address] Platelet mean volume (Bld) [Entitic vol] 8.8 fL Normal 7-12 [facility] Comment on above: Performed By: #### C KJ, DRESS OPERATOR #### [facility] ([id number]) [address] [address] Platelets (Bld) [#/Vol] 328 10*3/uL Normal 150-450 [facility] Comment on above: Performed By: #### C KJ, DRESS OPERATOR #### [facility] ([id number]) [address] [address] RBC COUNT 4.23 X10E12/L Normal 3.80-5.20 [facility] Comment on above: Performed By: #### Jacqueline UNDERWOOD, DRESS OPERATOR #### [facility] ([id number]) [address] [address] WBC (Bld) [#/Vol] 9.0 10*3/uL Normal 4.0-11.0 [facility] Comment on above: Performed By: #### Jacqueline UNDERWOOD, DRESS OPERATOR #### [facility] ([id number]) [address] [address] CREATININEon 04-24-2024 Creatinine [Mass/Vol] 0.72 mg/dL Normal 0.40-1.00 [facility] Comment on above: Result Comment: METH OD TRACEABLE TO IDMS STANDARD Performed By: #### Jacqueline UNDERWOOD, DRESS OPERATOR #### [facility] ([id number]) [address] [address] eGFR (CKD-EPI) NON-RACE DEPENDENT >90 Normal >59 [facility] Comment on above: Result Comment: Reported eGFR is based on the CKD-EPI 2020 equation that does not use a race coefficient. Performed By: #### C KJ, DRESS OPERATOR #### [facility] ([id number]) [address] [address] [place] [address] COMPLETE BLOOD COUNTon 04-11 Erythrocyte distribution width (RBC) [Ratio] 16.9 % High 11.5-15.0 [facility] Comment on above: Performed By: #### C BC, DRESS OPERATOR #### [facility] ([id number]) [address] [address] [place] [address] Hematocrit (Bld) [Volume fraction] 41.0 % Normal 35-47 [facility] Comment on above: Performed By: #### C KJ, DRESS OPERATOR #### [facility] ([id number]) [address] [address] [place] [address] Hemoglobin (Bld) [Mass/Vol] 13.8 g/dL Normal 11.7-15.5 [facility] Comment on above: Performed By: #### C KJ, DRESS OPERATOR #### [facility] ([id number]) [address] [address] [place] [address] MCH (RBC) [Entitic mass] 32.3 pg Normal 27-34 [facility] Comment on above: Performed By: #### C JK, DRESS OPERATOR #### [facility] ([id number]) [address] [address] [place] [address] MCHC (RBC) [Mass/Vol] 33.5 g/dL Normal 32-36 [facility] Comment on above: Performed By: #### C KJ, DRESS OPERATOR #### [facility] ([id number]) [address] [address] [place] [address] MCV (RBC) [Entitic vol] 96 fL Normal 80-100 [facility] Comment on above: Performed By: #### C JK, DRESS OPERATOR #### [facility] ([id number]) [address] [address] Platelet mean volume (Bld) [Entitic vol] 9.1 fL Normal 7-12 [facility] Comment on above: Performed By: #### C KJ, DRESS OPERATOR #### [facility] ([id number]) [address] [address] Platelets (Bld) [#/Vol] 291 10*3/uL Normal 150-450 [facility] Comment on above: Performed By: #### C KJ, DRESS OPERATOR #### [facility] ([id number]) [address] [address] RBC COUNT 4.27 X10E12/L Normal 3.80-5.20 [facility] Comment on above: Performed By: #### C KJ, DRESS OPERATOR #### [facility] ([id number]) [address] [address] WBC (Bld) [#/Vol] 8.9 10*3/uL Normal 4.0-11.0 [facility] Comment on above: Performed By: #### Jacqueline UNDERWOOD, DRESS OPERATOR #### [facility] ([id number]) [address] [address] CREATININEon 04-11-2024 Creatinine [Mass/Vol] 0.73 mg/dL Normal 0.40-1.00 [facility] Comment on above: Result Comment: METH OD TRACEABLE TO IDMS STANDARD Performed By: #### C KJ, DRESS OPERATOR #### [facility] ([id number]) [address] [address] eGFR (CKD-EPI) NON-RACE DEPENDENT >90 Normal >59 [facility] Comment on above: Result Comment: Reported eGFR is based on the CKD-EPI 2020 equation that does not use a race coefficient. Performed By: #### C KJ, DRESS OPERATOR #### [facility] ([id number]) [address] [place] [address] ASPIRATE CULTUREon Bacteria identified Aer cx Nom [...] <=1 F PIPERACIL/TAZOBACTAM S <=4 F Susceptible [facility] Comment on above: Performed By: #### 5 97-5 #### [facility] ([id number]) [address] [address] COMPLETE BLOOD COUNTon 04-04 Erythrocyte distribution width (RBC) [Ratio] 16.6 % High 11.5-15.0 [facility] Comment on above: Performed By: #### Jacqueline ARAUJO [facility], 1987-09, 54421-6 #### [facility] ([id number]) [address] [address] Hematocrit (Bld) [Volume fraction] 37.5 % Normal 35-47 [facility] Comment on above: Performed By: #### Jacqueline ARAUJO CMP, 1987-09, 24028-6 #### [facility] ([id number]) [address] [address] Hemoglobin (Bld) [Mass/Vol] 12.7 g/dL Normal 11.7-15.5 [facility] Comment on above: Performed By: #### Jacqueline ARAUJO CMP, 1987-09, 22829-0 #### [facility] ([id number]) [address] [address] [place] [address] MCH (RBC) [Entitic mass] 31.6 pg Normal 27-34 [facility] Comment on above: Performed By: #### Jacqueline ARAUJO CMP, 1987-09, 77943-1 #### [facility] ([id number]) [address], [address] [place] [address] MCHC (RBC) [Mass/Vol] 33.8 g/dL Normal 32-36 [facility] Comment on above: Performed By: #### Jacqueline ARAUJO [facility], 1987-09, 48458-2 #### [facility] ([id number]) [address], [address] [place] [address] MCV (RBC) [Entitic vol] 94 fL Normal 80-100 [facility] Comment on above: Performed By: #### Jacqueline ARAUJO [facility], 1987-09, 00944-2 #### [facility] ([id number]) [address], [address] [place] [address] Platelet mean volume (Bld) [Entitic vol] 8.9 fL Normal 7-12 [facility] Comment on above: Performed By: #### Jacqueline ARAUJO [facility], 1987-09, 95483-8 #### [facility] ([id number]) [address], [address] [place] [address] Platelets (Bld) [#/Vol] 230 10*3/uL Normal 150-450 [facility] Comment on above: Performed By: #### Jacqueline ARAUJO CMP, 1987-09, 43987-8 #### [facility] ([id number]) [address] [place] [address] RBC COUNT 4.01 X10E12/L Normal 3.80-5.20 [facility] Comment on above: Performed By: #### Jacqueline ARAUJO CMP, 1987-09, 81841-0 #### [facility] ([id number]) [address], [address] [place] [address] WBC (Bld) [#/Vol] 9.1 10*3/uL Normal 4.0-11.0 [facility] Comment on above: Performed By: #### C ARANZA ARAUJO, 1988-09, 97830-7 #### [facility] ([id number]) [address] [address] CREATININEon 04-04-2024 Creatinine [Mass/Vol] 0.60 mg/dL Normal 0.40-1.00 [facility] Comment on above: Result Comment: METH OD TRACEABLE TO IDMS STANDARD Performed By: #### C ARANZA ARAUJO, 1988-09, 61901-7 #### [facility] ([id number]) [address] [address] eGFR (CKD-EPI) NON-RACE DEPENDENT >90 Normal >59 [facility] Comment on above: Result Comment: Reported eGFR is based on the CKD-EPI 2020 equation that does not use a race coefficient. Performed By: #### C ARANZA ARAUJO, 81180-9 #### [facility] ([id number]) [address] [address] COMPLETE BLOOD COUNTon 03-27 Erythrocyte distribution width (RBC) [Ratio] 17.2 % High 11.5-15.0 [facility] Comment on above: Performed By: #### C ARANZA ARAUJO, 07493-6 #### [facility] ([id number]) [address] [address] Hematocrit (Bld) [Volume fraction] 40.0 % Normal 35-47 [facility] Comment on above: Performed By: #### C ARANZA ARAUJO, 90531-6 #### [facility] ([id number]) [address] [address] Hemoglobin (Bld) [Mass/Vol] 13.5 g/dL Normal 11.7-15.5 [facility] Comment on above: Performed By: #### C VAN, CMP, 1987-09, 05518-2 #### [facility] ([id number]) [address], [address] [place] [address] MCH (RBC) [Entitic mass] 31.7 pg Normal 27-34 [facility] Comment on above: Performed By: #### Jacqueline ARAUJO [facility], 1987-09, 93904-0 #### [facility] ([id number]) [address], [address] [place] [address] MCHC (RBC) [Mass/Vol] 33.7 g/dL Normal 32-36 [facility] Comment on above: Performed By: #### Jacqueline ARAUJO CMP, 1987-09, 53402-7 #### [facility] ([id number]) [address], [address] [place] [address] MCV (RBC) [Entitic vol] 94 fL Normal 80-100 [facility] Comment on above: Performed By: #### Jacqueline ARAUJO [facility], 1987-09, 86856-5 #### [facility] ([id number]) [address], [address] [place] [address] Platelet mean volume (Bld) [Entitic vol] 8.5 fL Normal 7-12 [facility] Comment on above: Performed By: #### Jacqueline ARAUJO CMP, 1987-09, 44294-1 #### [facility] ([id number]) [address], [address] [place] [address] Platelets (Bld) [#/Vol] 332 10*3/uL Normal 150-450 [facility] Comment on above: Performed By: #### Jacqueline ARAUJO CMP, 1987-09, 42093-8 #### [facility] ([id number]) [address], [address] [place] [address] RBC COUNT 4.26 X10E12/L Normal 3.80-5.20 [facility] Comment on above: Performed By: #### C ARANZA ARAUJO, 1987-09, 57071-7 #### [facility] ([id number]) [address] [address] WBC (Bld) [#/Vol] 10.4 10*3/uL Normal 4.0-11.0 [facility] Comment on above: Performed By: #### C ARANZA ARAUJO, 1987-09, 29817-4 #### [facility] ([id number]) [address], [address] [address] CREATININEon 03-27-2024 Creatinine [Mass/Vol] 0.69 mg/dL Normal 0.40-1.00 [facility] Comment on above: Result Comment: METH OD TRACEABLE TO IDMS STANDARD Performed By: #### C ARANZA ARAUJO, 1987-09, 40264-5 #### [facility] ([id number]) [address], [address] [address] eGFR (CKD-EPI) NON-RACE DEPENDENT >90 Normal >59 [facility] Comment on above: Result Comment: Reported eGFR is based on the CKD-EPI 2020 equation that does not use a race coefficient. Performed By: #### C ARANZA ARAUJO, 1987-09, 11883-8 #### [facility] ([id number]) [address] [address] COMPLETE BLOOD COUNTon 03-20 Erythrocyte distribution width (RBC) [Ratio] 19.0 % High 11.5-15.0 [facility] Comment on above: Performed By: #### C BC, DRESS OPERATOR #### [facility] ([id number]) [address] [address] Hematocrit (Bld) [Volume fraction] 37.9 % Normal 35-47 [facility] Comment on above: Performed By: #### C BC, DRESS OPERATOR #### [facility] ([id number]) [address], [address] [place] [address] Hemoglobin (Bld) [Mass/Vol] 12.6 g/dL Normal 11.7-15.5 [facility] Comment on above: Performed By: #### C KJ, DRESS OPERATOR #### [facility] ([id number]) [address], [address] [place] [address] MCH (RBC) [Entitic mass] 31.8 pg Normal 27-34 [facility] Comment on above: Performed By: #### C KJ, DRESS OPERATOR #### [facility] ([id number]) [address], [address] [place] [address] MCHC (RBC) [Mass/Vol] 33.2 g/dL Normal 32-36 [facility] Comment on above: Performed By: #### C KJ, DRESS OPERATOR #### [facility] ([id number]) [address], [address] [place] [address] MCV (RBC) [Entitic vol] 96 fL Normal 80-100 [facility] Comment on above: Performed By: #### Jacqueline UNDERWOOD, DRESS OPERATOR #### [facility] ([id number]) [address], [address] [place] [address] Platelet mean volume (Bld) [Entitic vol] 8.4 fL Normal 7-12 [facility] Comment on above: Performed By: #### Jacqueline UNDERWOOD, DRESS OPERATOR #### [facility] ([id number]) [address], [address] [place] [address] Platelets (Bld) [#/Vol] 343 10*3/uL Normal 150-450 [facility] Comment on above: Performed By: #### C KJ, DRESS OPERATOR #### [facility] ([id number]) [address], [address] [place] [address] RBC COUNT 3.95 X10E12/L Normal 3.80-5.20 [facility] Comment on above: Performed By: #### C KJ, DRESS OPERATOR #### [facility] ([id number]) [address] [address] WBC (Bld) [#/Vol] 7.6 10*3/uL Normal 4.0-11.0 [facility] Comment on above: Performed By: #### C KJ, DRESS OPERATOR #### [facility] ([id number]) [address] [address] CREATININEon 03-20-2024 Creatinine [Mass/Vol] 0.70 mg/dL Normal 0.40-1.00 [facility] Comment on above: Result Comment: METH OD TRACEABLE TO IDMS STANDARD Performed By: #### C KJ, DRESS OPERATOR #### [facility] ([id number]) [address] [address] eGFR (CKD-EPI) NON-RACE DEPENDENT >90 Normal >59 [facility] Comment on above: Result Comment: Reported eGFR is based on the CKD-EPI 2020 equation that does not use a race coefficient. Performed By: #### C KJ, DRESS OPERATOR #### [facility] ([id number]) [address] [address] CBC AND AUTO DIFFon 03-16-20 24 ABSOLUTE BASOPHIL 0.0 X10E9/L Normal 0.0-0.2 [facility] Comment on above: Performed By: #### C ARANZA ARAUJO, 1987-09 #### [facility] ([id number]) [address] [address] ABSOLUTE NEUTROPHIL 5.5 X10E9/L Normal 1.5-6.6 [facility] Comment on above: Performed By: #### C VAN CMP, 1987-09 #### [facility] ([id number]) [address] [address] Basophils/100 WBC (Bld) 0.4 % Normal [facility] Comment on above: Performed By: #### Jacqueline ARAUJO [facility], 1987-09 #### [facility] ([id number]) [address] [address] [place] [address] Eosinophils (Bld) [#/Vol] 0.1 10*3/uL Normal 0.0-0.4 [facility] Comment on above: Performed By: #### Jacqueline ARAUJO CMP, 1987-09 #### [facility] ([id number]) [address], [facility] [address] [place] [address] Eosinophils/100 WBC (Bld) 1.9 % Normal [facility] Comment on above: Performed By: #### Jacqueline ARAUJO CMP, 1987-09 #### [facility] ([id number]) [address], [facility] [address] [place] [address] Erythrocyte distribution width (RBC) [Ratio] 18.1 % High 11.5-15.0 [facility] Comment on above: Performed By: #### Jacqueline ARAUJO CMP, 1987-09 #### [facility] ([id number]) [address], [facility] [address] [place] [address] Hematocrit (Bld) [Volume fraction] 39.2 % Normal 35-47 [facility] Comment on above: Performed By: #### Jacqueline ARAUJO CMP, 1987-09 #### [facility] ([id number]) [address] [place] [address] Hemoglobin (Bld) [Mass/Vol] 13.4 g/dL Normal 11.7-15.5 [facility] Comment on above: Performed By: #### Jacqueline ARAUJO CMP, 1987-09 #### [facility] ([id number]) [address] [address] [place] [address] Lymphocytes (Bld) [#/Vol] 1.7 10*3/uL Normal 1.0-3.5 [facility] Comment on above: Performed By: #### Jacqueline ARAUJO CMP, 1987-09 #### [facility] ([id number]) [address] [place] [address] Lymphocytes/100 WBC (Bld) 22.1 % Normal [facility] Comment on above: Performed By: #### Jacqueline ARAUJO CMP, 1987-09 #### [facility] ([id number]) [address] [place] [address] MCH (RBC) [Entitic mass] 32.2 pg Normal 27-34 [facility] Comment on above: Performed By: #### Jacqueline ARAUJO CMP, 1987-09 #### [facility] ([id number]) [address], [facility] [address] [place] [address] MCHC (RBC) [Mass/Vol] 34.2 g/dL Normal 32-36 [facility] Comment on above: Performed By: #### Jacqueline ARAUJO CMP, 1987-09 #### [facility] ([id number]) [address], [facility] [address] [place] [address] MCV (RBC) [Entitic vol] 94 fL Normal 80-100 [facility] Comment on above: Performed By: #### Jacqueline ARAUJO [facility], 1987-09 #### [facility] ([id number]) [address] [place] [address] Monocytes (Bld) [#/Vol] 0.5 10*3/uL Normal 0-0.9 [facility] Comment on above: Performed By: #### Jacqueline ARAUJO CMP, 1987-09 #### [facility] ([id number]) [address] [place] [address] Monocytes/100 WBC (Bld) 6.5 % Normal [facility] Comment on above: Performed By: #### Jacqueline ARAUJO CMP, 1987-09 #### [facility] ([id number]) [address] [place] [address] Neutrophils/100 WBC (Bld) 69.1 % Normal [facility] Comment on above: Performed By: #### Jacqueline ARAUJO CMP, 1987-09 #### [facility] ([id number]) [address], [facility] [address] [place] [address] Platelet mean volume (Bld) [Entitic vol] 8.1 fL Normal 7-12 [facility] Comment on above: Performed By: #### Jacqueline ARAUJO CMP, 1987-09 #### [facility] ([id number]) [address], [facility] [address] [place] [address] Platelets (Bld) [#/Vol] 358 10*3/uL Normal 150-450 [facility] Comment on above: Performed By: #### Jacqueline ARAUJO CMP, 1987-09 #### [facility] ([id number]) [address] [place] [address] RBC COUNT 4.17 X10E12/L Normal 3.80-5.20 [facility] Comment on above: Performed By: #### Jacqueline ARAUJO CMP, 1987-09 #### [facility] ([id number]) [address], [facility] [address] [place] [address] WBC (Bld) [#/Vol] 7.9 10*3/uL Normal 4.0-11.0 [facility] Comment on above: Performed By: #### Jacqueline ARAUJO CMP, 1987-09 #### [facility] ([id number]) [address] [place] [address] COMPREHENSIVE METABOLIC PANE Alexandru 03-16-2024 Albumin [Mass/Vol] 3.4 g/dL Normal 3.2-5.3 [facility] Comment on above: Performed By: #### Jacqueline ARAUJO CMP, 1987-09 #### [facility] ([id number]) [address] [place] [address] ALP [Catalytic activity/Vol] 52 U/L Normal 39-130 [facility] Comment on above: Performed By: #### Jacqueline ARAUJO CMP, 1987-09 #### [facility] ([id number]) [address], [address] [place] [address] ALT [Catalytic activity/Vol] 12 U/L Normal 0-31 [facility] Comment on above: Performed By: #### Jacqueline ARAUJO CMP, 1987-09 #### [facility] ([id number]) [address], [address] [place] [address] Anion gap [Moles/Vol] 11 mmol/L Normal 5-15 [facility] Comment on above: Performed By: #### Jacqueline ARAUJO CMP, 1987-09 #### [facility] ([id number]) [address], [address] [place] [address] AST [Catalytic activity/Vol] 17 U/L Normal 0-41 [facility] Comment on above: Performed By: #### Jacqueline ARAUJO CMP, 1987-09 #### [facility] ([id number]) [address], [address] [place] [address] Bilirubin [Mass/Vol] 0.4 mg/dL Normal 0.3-1.2 [facility] Comment on above: Performed By: #### Jacqueline ARAUJO CMP, 1987-09 #### [facility] ([id number]) [address], [address] [place] [address] Calcium [Mass/Vol] 9.7 mg/dL Normal 8.5-10.5 [facility] Comment on above: Performed By: #### Jacqueline ARAUJO CMP, 1987-09 #### [facility] [facility] ([id number]) [address], [address] [place] [address] Chloride [Moles/Vol] 109 mmol/L Normal 98-109 [facility] Comment on above: Performed By: #### Jacqueline ARAUJO CMP, 1987-09 #### [facility] ([id number]) [address], [address] [place] [address] CO2 [Moles/Vol] 20 mmol/L Low 22-32 [facility] Comment on above: Performed By: #### C ARANZA ARAUJO, 1987-09 #### [facility] ([id number]) [address], [facility] [address] [place] [address] Creatinine [Mass/Vol] 0.75 mg/dL Normal 0.40-1.00 [facility] Comment on above: Result Comment: METH OD TRACEABLE TO IDMS STANDARD Performed By: #### C ARANZA ARAUJO, 1987-09 #### [facility] ([id number]) [address], [address] [place] [address] eGFR (CKD-EPI) NON-RACE DEPENDENT >90 Normal >59 [facility] Comment on above: Result Comment: Reported eGFR is based on the CKD-EPI 2020 equation that does not use a race coefficient. Performed By: #### C ARANZA ARAUJO, 1987-09 #### [facility] ([id number]) [address], [address] [place] [address] Glucose [Mass/Vol] 88 mg/dL Normal 65-99 [facility] Comment on above: Performed By: #### Jacqueline ARAUJO CMP, 1987-09 #### [facility] ([id number]) [address] [address] [place] [address] Potassium [Moles/Vol] 3.9 mmol/L Normal 3.5-5.0 [facility] Comment on above: Performed By: #### Jacqueline ARAUJO CMP, 1987-09 #### [facility] ([id number]) [address] [address] [place] [address] Protein [Mass/Vol] 6.4 g/dL Normal 6.0-8.0 [facility] Comment on above: Performed By: #### Jacqueline ARAUJO CMP, 1987-09 #### [facility] ([id number]) [address], [address] [place] [address] Sodium [Moles/Vol] 140 mmol/L Normal 134-146 [facility] Comment on above: Performed By: #### Jacqueline ARAUJO [facility], 1987-09 #### [facility] ([id number]) [address], [address] [place] [address] Urea nitrogen [Mass/Vol] 9 mg/dL Normal 5-23 [facility] Comment on above: Performed By: #### Jacqueline ARAUJO [facility], 1987-09 #### [facility] ([id number]) [address], [facility] [address] [place] [address] CRP [Mass/Vol]on 03-16-2024 C REACTIVE PROTEIN 0.6 mg/dL Normal 0.000-0.744 [facility] Comment on above: Performed By: #### Jacqueline ARAUJO [facility], 1987-09 #### [facility] ([id number]) [address], [facility] [address] [place] [address] BLOOD CULTUREon 03-13-2024 Bacteria identified Aer cx Nom (Bld) CULTURE RESULTS NO GROWTH 5 DAYS Normal [facility] Bacteria identified Aer cx Nom (Bld) CULTURE RESULTS NO GROWTH 5 DAYS Normal [facility] CBC AND AUTO DIFFon 03-13-20 ABSOLUTE BASOPHIL 0.0 X10E9/L Normal 0.0-0.2 [facility] Comment on above: Performed By: #### Jacqueline ARAUJO CMP, 1987-09, 31107-8 #### [facility] ([id number]) [address], [address] [place] [address] ABSOLUTE NEUTROPHIL 5.4 X10E9/L Normal 1.5-6.6 [facility] Comment on above: Performed By: #### Jacqueline ARAUJO CMP, 1987-09, 84031-1 #### [facility] ([id number]) [address], [address] [place] [address] Basophils/100 WBC (Bld) 0.4 % Normal [facility] Comment on above: Performed By: #### Jacqueline ARAUJO [facility], 1987-09, 31391-5 #### [facility] ([id number]) [address], [address] [place] [address] Eosinophils (Bld) [#/Vol] 0.1 10*3/uL Normal 0.0-0.4 [facility] Comment on above: Performed By: #### Jacqueline ARAUJO [facility], 1987-09, 89155-5 #### [facility] ([id number]) [address], [address] [place] [address] Eosinophils/100 WBC (Bld) 1.6 % Normal [facility] Comment on above: Performed By: #### Jacqueline ARAUJO [facility], 1987-09, 44150-6 #### [facility] ([id number]) [address], [address] [place] [address] Erythrocyte distribution width (RBC) [Ratio] 18.4 % High 11.5-15.0 [facility] Comment on above: Performed By: #### Jacqueline ARAUJO [facility], 1987-09, 41063-9 #### [facility] ([id number]) [address], [facility] [address] [place] [address] Hematocrit (Bld) [Volume fraction] 39.0 % Normal 35-47 [facility] Comment on above: Performed By: #### Jacqueline ARAUJO [facility], 50020-5 #### [facility] ([id number]) [address], [facility] [address] [place] [address] Hemoglobin (Bld) [Mass/Vol] 13.7 g/dL Normal 11.7-15.5 [facility] Comment on above: Performed By: #### Jacqueline ARAUJO [facility], 85425-6 #### [facility] ([id number]) [address] [address] [place] [address] Lymphocytes (Bld) [#/Vol] 1.9 10*3/uL Normal 1.0-3.5 [facility] Comment on above: Performed By: #### Jacqueline ARAUJO CMP, 1987-09, 43333-0 #### [facility] ([id number]) [address] [address] [place] [address] Lymphocytes/100 WBC (Bld) 24.0 % Normal [facility] Comment on above: Performed By: #### Jacqueline ARAUJO [facility], 1987-09, 79870-3 #### [facility] ([id number]) [address] [address] [place] [address] MCH (RBC) [Entitic mass] 32.5 pg Normal 27-34 [facility] Comment on above: Performed By: #### Jacqueline ARAUJO [facility], 1987-09, 00536-5 #### [facility] ([id number]) [address] [address] [place] [address] MCHC (RBC) [Mass/Vol] 35.0 g/dL Normal 32-36 [facility] Comment on above: Performed By: #### Jacqueline ARAUJO CMP, 1987-09, 28577-1 #### [facility] ([id number]) [address] [address] [place] [address] MCV (RBC) [Entitic vol] 93 fL Normal 80-100 [facility] Comment on above: Performed By: #### Jacqueline RAAUJO CMP, 1987-09, 89972-3 #### [facility] ([id number]) [address] [address] [place] [address] Monocytes (Bld) [#/Vol] 0.4 10*3/uL Normal 0-0.9 [facility] Comment on above: Performed By: #### Jacqueline ARAUJO CMP, 1987-09, 31775-4 #### [facility] ([id number]) [address], [address] [place] [address] Monocytes/100 WBC (Bld) 4.7 % Normal [facility] Comment on above: Performed By: #### Jacqueline ARAUJO CMP, 1987-09, 61760-7 #### [facility] ([id number]) [address], [address] [place] [address] Neutrophils/100 WBC (Bld) 69.3 % Normal [facility] Comment on above: Performed By: #### Jacqueline ARAUJO [facility], 1987-09, 70810-9 #### [facility] ([id number]) [address], [address] [place] [address] Platelet mean volume (Bld) [Entitic vol] 7.9 fL Normal 7-12 [facility] Comment on above: Performed By: #### Jacqueline ARAUJO CMP, 1987-09, 00555-6 #### [facility] ([id number]) [address], [address] [place] [address] Platelets (Bld) [#/Vol] 376 10*3/uL Normal 150-450 [facility] Comment on above: Performed By: #### Jacqueline ARAUJO CMP, 1987-09, 17037-6 #### [facility] ([id number]) [address], [address] [place] [address] RBC COUNT 4.20 X10E12/L Normal 3.80-5.20 [facility] Comment on above: Performed By: #### Jacqueline ARAUJO CMP, 1987-09, 98063-1 #### [facility] ([id number]) [address], [address] [place] [address] WBC (Bld) [#/Vol] 7.8 10*3/uL Normal 4.0-11.0 [facility] Comment on above: Performed By: #### Jacqueline ARAUJO CMP, 1987-09, 34451-7 #### [facility] ([id number]) [address], [address] [place] [address] COMPREHENSIVE METABOLIC PANE Alexandru 03-13-2024 Albumin [Mass/Vol] 3.4 g/dL Normal 3.2-5.3 [facility] Comment on above: Performed By: #### [facility], 1987-09, 88516-5 #### [facility] ([id number]) [address], [address] [place] [address] ALP [Catalytic activity/Vol] 57 U/L Normal 39-130 [facility] Comment on above: Performed By: #### [facility], 1987-09, 52371-9 #### [facility] ([id number]) [address], [address] [place] [address] ALT [Catalytic activity/Vol] 14 U/L Normal 0-31 [facility] Comment on above: Performed By: #### [facility], 1987-09, 13387-2 #### [facility] ([id number]) [address], [address] [place] [address] Anion gap [Moles/Vol] 8 mmol/L Normal 5-15 [facility] Comment on above: Performed By: #### [facility], 1987-09, 22357-3 #### [facility] ([id number]) [address], [address] [place] [address] AST [Catalytic activity/Vol] 19 U/L Normal 0-41 [facility] Comment on above: Performed By: #### [facility], 03196-6 #### [facility] ([id number]) [address], [address] [place] [address] Bilirubin [Mass/Vol] 0.4 mg/dL Normal 0.3-1.2 [facility] Comment on above: Performed By: #### C VAN CMP, 1987-09, 85194-0 #### [facility] ([id number]) [address], [address] [place] [address] Calcium [Mass/Vol] 9.3 mg/dL Normal 8.5-10.5 [facility] Comment on above: Performed By: #### [facility], 1987-09, 98311-5 #### [facility] ([id number]) [address], [address] [place] [address] Chloride [Moles/Vol] 105 mmol/L Normal 98-109 [facility] Comment on above: Performed By: #### [facility], 1987-09, 47321-7 #### [facility] ([id number]) [address], [address] [place] [address] CO2 [Moles/Vol] 28 mmol/L Normal 22-32 [facility] Comment on above: Performed By: #### [facility], 1987-09, 98260-2 #### [facility] ([id number]) [address], [facility] [address] [place] [address] Creatinine [Mass/Vol] 0.82 mg/dL Normal 0.40-1.00 [facility] Comment on above: Result Comment: METH OD TRACEABLE TO IDMS STANDARD Performed By: #### [facility], 1987-09, 51669-1 #### [facility] ([id number]) [address], [address] [place] [address] GFR/1.73 sq M.predicted among non-blacks MDRD (S/P/Bld) [Vol rate/Area] 84 mL/min/{1.73_m2} Normal >59 [facility] Comment on above: Result Comment: Reported eGFR is based on the CKD-EPI 2020 equation that does not use a race coefficient. Performed By: #### [facility], 1987-09, 30266-5 #### [facility] ([id number]) [address], [address] [place] [address] Glucose [Mass/Vol] 97 mg/dL Normal 65-99 [facility] Comment on above: Performed By: #### [facility], 1987-09, 53827-4 #### [facility] ([id number]) [address], [address] [place] [address] Potassium [Moles/Vol] 3.1 mmol/L Low 3.5-5.0 [facility] Comment on above: Performed By: #### [facility], 70779-7 #### [facility] ([id number]) [address] [place] [address] Protein [Mass/Vol] 6.3 g/dL Normal 6.0-8.0 [facility] Comment on above: Performed By: #### Jacqueline ARAUJO [facility], 15610-3 #### [facility] ([id number]) [address] [place] [address] Sodium [Moles/Vol] 141 mmol/L Normal 134-146 [facility] Comment on above: Performed By: #### Jacqueline ARAUJO CMP, 78148-9 #### [facility] ([id number]) [address], [address] [place] [address] Urea nitrogen [Mass/Vol] 8 mg/dL Normal 5-23 [facility] Comment on above: Performed By: #### [facility], 55381-4 #### [facility] ([id number]) [address] [place] [address] CRP [Mass/Vol]on 03-13-2024 C REACTIVE PROTEIN 0.7 mg/dL Normal 0.000-0.744 [facility] Comment on above: Performed By: #### Jacqueline ARAUJO CMP, 25132-5 #### [facility] ([id number]) [address], [address] [place] [address] ESR Photometric method (Bld) [Velocity]on 03-13-2024 ESR, ERYTHROCYTE SEDIMENTATION RATE 39 mm/h High 0-30 [facility] Comment on above: Performed By: #### C BCA, CMP, 1987-09, 52489-8 #### [facility] ([id number]) [address], [address] [place] [address] ASPIRATE CULTUREon Bacteria identified Aer cx Nom [...] <=1 F PIPERACIL/TAZOBACTAM S <=4 F Susceptible [facility] Comment on above: Performed By: #### 5 97-5 #### [facility] ([id number]) [address] [place] [address] AND DIFFon 2023 BODY FLUID COMMENT Interpreta tion--- ----- Normal [facility] Comment on above: Result Comment: Refe rence values for this fluid type are undefined, as fluid accumulation is considered abnormal. Performed By: #### B FCT #### [facility] ([id number]) [address] [place] [address] FLUID CLARITY CLOUDY Normal [facility] Comment on above: Performed By: #### B FCT #### [facility] ([id number]) [address] [place] [address] FLUID COLOR HONG Normal [facility] Comment on above: Performed By: #### B FCT #### [facility] ([id number]) [address], [address] [place] [address] FLUID LYMPHOCYTE 5 % Normal [facility] Comment on above: Performed By: #### B FCT #### [facility] ([id number]) [address], [address] [place] [address] FLUID NEUTROPHILS 75 % Normal [facility] Comment on above: Performed By: #### B FCT #### [facility] ([id number]) [address] [place] [address] [place] [address] /uL Normal [facility] Comment on above: Performed By: #### B FCT #### [facility] ([id number]) [address] [place] [address] FLUID SPECIMEN TYPE ASPIRATE Normal [facility] Comment on above: Result Comment: ABDO MISAEL PUMP POCKET Performed By: #### B FCT #### [facility] ([id number]) [address] [place] [address] MACROPHAGES 20 % Normal [facility] Comment on above: Performed By: #### B FCT #### [facility] ([id number]) [address] [place] [address] 4888 /uL Normal [facility] Comment on above: Performed By: #### B FCT #### [facility] ([id number]) [address], [address] [place] [address] Infectious Disease Office/Cl inic Noteon 11-10-2023 Infectious Disease Office/Clinic Note Assessment/Plan 1. Postoperative wound infection Plan: Unfortunately there is no other good oral options for coverage of Pseudomonas. She is advised to stop taking doxycycline as this will help her symptoms. I did call Dr. Montes his PA Hammad called back. She advised me to send patient back to [facility]. This is where she had her surgery done. She may need to MRI possible washout. This account underwriter did call [facility] talk to charge nurse Dagmar gave her [...] and fusion by Dr. Saint Gregory at [facility]. She was discharged home on the . She was discharged on cephalexin for 10 days. She was taken back to surgery on October 11 due to persistent drainage and wound dehiscence. She had a fluid collection which was most consistent with seroma/infection . The surgery was done in starks. Cultures grew Pseudomonas and she was discharged [...] data Procedure/Surgical History Neck Surgery Stomach Pain Tavernier Surgery (09/02/2023) incision & drainage (10/12/2023) Medications cyclobenzaprine 10 mg oral tablet, 45 EA, 0 Refill(s), TAKE 1 TABLET BY MOUTH THREE TIMES DAILY NEEDED FOR MUSCLE SPASMS DULoxetine 60 mg oral delayed release capsule, 90 EA, 0 Refill(s), TAKE 1 CAPSULE BY MOUTH EVERY DAY ibuprofen 800 mg oral tablet, 270 EA, 0 Refill(s) Potassium Chloride ( (more content not included)... Normal [facility] .eGFRon 10-26-2023 GFR/1.73 sq M.predicted MDRD (S/P/Bld) [Vol rate/Area] mL/min/{1.73_m2} Normal >=60 [facility] Comment on above: Order Comment: Order added by Discern rule Result Comment: [facility] have implemented the eGFR calculation [...] years Performed By: #### E GFR #### [facility] [address] [place] [address] Basic Metabolic Profileon Anion gap [Moles/Vol] 10 mmol/L Normal -12 [facility] Comment on above: Performed By: #### C [id number] #### [facility] [address] [place] [address] Calcium [Mass/Vol] 9.4 mg/dL Normal 8.5-10.3 [facility] Comment on above: Performed By: #### C [id number] #### [facility] [address] [place] [address] Chloride [Moles/Vol] 101 mmol/L Normal 98-110 [facility] Comment on above: Performed By: #### C [id number] #### [address] [address] CO2 [Moles/Vol] 26 mmol/L Normal 22-32 [facility] Comment on above: Performed By: #### C [id number] #### [address] [address] Creatinine [Mass/Vol] 0.81 mg/dL Normal 0.44-1.03 [facility] Comment on above: Performed By: #### C [id number] #### [address] [address] Glucose [Mass/Vol] 82 mg/dL Normal 70-99 [facility] Comment on above: Performed By: #### C [id number] #### [address] [address] Potassium [Moles/Vol] 2.7 mmol/L Low 3.4-4.8 [facility] Comment on above: Performed By: #### C [id number] #### [address] [address] Sodium [Moles/Vol] 137 mmol/L Normal 133-142 [facility] Comment on above: Performed By: #### C [id number] #### [address] [address] Urea nitrogen [Mass/Vol] 15 mg/dL Normal 8-26 [facility] Comment on above: Performed By: #### C [id number] #### [address] [address] Urea nitrogen/Creatinin e [Mass ratio] 18.5 mg/mg Normal 10.0-20.0 [facility] Comment on above: Performed By: #### C [id number] #### [address] [address] CBC w/ Diffon 10-26-2023 Erythrocyte distribution width (RBC) [Ratio] 15.2 % High 11.6-14.8 [facility] Comment on above: Performed By: #### C BC #### [place] [id number] Hematocrit (Bld) [Volume fraction] 38.9 % Normal 36.0-46.0 [facility] Comment on above: Performed By: #### C BC #### [place] [id number] Hemoglobin (Bld) [Mass/Vol] 12.9 g/dL Normal 12.0-16.0 [facility] Comment on above: Performed By: #### C BC #### [place] [id number] MCH (RBC) [Entitic mass] 31.5 pg Normal 27.0-35.0 [facility] Comment on above: Performed By: #### C BC #### [place] [address] MCHC 33.1 % Normal 31.0-37.0 [facility] Comment on above: Performed By: #### C BC #### [place] [address] MCV (RBC) [Entitic vol] 95.0 fL Normal 80.0-100.0 [facility] Comment on above: Performed By: #### C BC #### [place] [id number] Platelet 367 x10*3/mcL Normal 150-450 [facility] Comment on above: Performed By: #### C BC #### [address] [address] Platelet mean volume (Bld) [Entitic vol] 7.7 fL Normal 6.7-10.6 [facility] Comment on above: Performed By: #### C BC #### [address] [address] RBC 4.10 x10*6/mcL Normal 3.80-5.20 [facility] Comment on above: Performed By: #### C BC #### [address] [address] WBC 12.3 x10*3/mcL High 4.5-11.0 [facility] Comment on above: Performed By: #### C BC #### [address] [address] CRPon 10-26-2023 CRP 2.71 mg/dL High 0.00-0.75 [facility] Comment on above: Result Comment: CRP measurement is useful for assessment of non-specific INFLAMMATORY RESPONSE to infection or injury AND is a sensitive MARKER of ACUTE INFLAMMATION including CARDIAC RISK ASSESSMENT. CARDIAC patients with elevated CRP are POTENTIALLY at a HIGHER RISK OF FUTURE CARDIAC EVENTS. Performed By: #### C RP #### [address] [address] Diff Autoon 10-26-2023 Baso Absolute 0.1 x10*3/mcL Normal 0.0-0.2 [facility] Comment on above: Performed By: #### . Automated Diff #### [address] [address] Basophils/100 WBC (Bld) 0.5 % Normal 0.0-1.5 [facility] Comment on above: Performed By: #### . Automated Diff #### [address] [address] Eos Absolute 0.3 x10*3/mcL Normal 0.0-0.4 [facility] Comment on above: Performed By: #### . Automated Diff #### [address] [address] Eosinophils/100 WBC (Bld) 2.1 % Normal 0.0-5.4 [facility] Comment on above: Performed By: #### . Automated Diff #### [address] [address] Lymph Absolute 2.2 x10*3/mcL Normal 1.0-4.8 [facility] Comment on above: Performed By: #### . Automated Diff #### [address] [place] [address] Lymphocytes/100 WBC (Bld) 18.0 % Low 27.2-40.8 [facility] Comment on above: Performed By: #### . Automated Diff #### [address] [address] [place] Absolute 0.6 x10*3/mcL Normal 0.1-1.1 [facility] Comment on above: Performed By: #### . Automated Diff #### [address] [address] Monocytes/100 WBC (Bld) 4.9 % Normal 3.7-11.9 [facility] Comment on above: Performed By: #### . Automated Diff #### [address] [address] Neutro Absolute 9.2 x10*3/mcL High 1.8-7.7 [facility] Comment on above: Performed By: #### . Automated Diff #### [address] [address] Neutro Auto 74.5 % High 47.2-70.8 [facility] Comment on above: Performed By: #### . Automated Diff #### [address] [address] ESRon 10-26-2023 Sed Rate 67 mm/hr High 0-30 [facility] Comment on above: Performed By: #### E SR #### [place] [id number] Infectious Disease Office/Cl inic Noteon 10-26-2023 Infectious [...] tabs, 0 Refill(s), 11/09/23 10:12:00 EDT, Pharmacy: [facility] #[id number] Basic Metabolic Profile C-Reactive Protein Complete Blood Count w/ Differential Erythrocyte Sedimentation Rate 2. Pseudomonas infection As above Ordered: levoFLOXacin, 1 tabs, Oral, q24hr, X 14 days, # 14 tabs, 0 Refill(s), 11/09/23 10:12:00 EDT, Pharmacy: [facility] #[id number] Basic Metabolic Profile C-Reactive Protein Complete Blood Count w/ Differential Erythrocyte Sedimentation Rate Chief Complaint New pt I&D done at [facility], possible infection of back. History of Present Illness Seen today for persistent drainage after back surgery on September 01. She had L3-L4 decompression and fusion by Dr. Saint Gregory at [facility]. She was discharged home on the . She was discharged on cephalexin for 10 days. She was taken back to surgery on October 11 due to persistent drainage and wound dehiscence. She had a fluid collection which was most consistent with seroma/infection . The surgery was done in starks. Cultures grew Pseudomonas and she was discharged on Cipro. She could not tolerate it and stopped it after 3 days. After the 10 days of cephalexin initially, she received cephalexin September 27 from [facility]. She apparently got doxycycline and azithromycin [...] data Procedure/Surgical History Neck Surgery Stomach Pain [facility] (09/02/2023) incision & drainage (10/12/2023) Medications [...] SARS-CoV-2 (COVID-19 (more content not included)... [facility] Provider Letteron 10-26-2023 Provider Letter (Inserted Image. Shelly ble to display) Tejas Richardson DO [address] [place] [address] Re: Radha Dakota Date of Visit: 10/26/[address] Richardson, Thank you for your referral to my office. Attached you will find the most recent office visit note. Please call if you have any questions or concerns. Sincerely, Pavel Rodriges MD [address] [facility], [address] [place] [address] The following document(s) were included in the letter: October 26, 2023 10:13:55 EDT - (10/26/2023) Infectious Disease Office Visit Note [facility] ELECTROLYTESon 08-22-2023 Anion gap [Moles/Vol] 8 mmol/L Normal 5-15 [facility] Comment on above: Performed By: #### E LEC #### [facility] ([id number]) [address] [facility] [address] [place] [address] Chloride [Moles/Vol] 110 mmol/L High 98-109 [facility] Comment on above: Performed By: #### E LEC #### [facility] ([id number]) [address] [facility], [address] [place] [address] CO2 [Moles/Vol] 23 mmol/L Normal 22-32 [facility] Comment on above: Performed By: #### E LEC #### [facility] ([id number]) [address] [facility] [address] [place] [address] Potassium [Moles/Vol] 4.4 mmol/L Normal 3.5-5.0 [facility] Comment on above: Performed By: #### E LEC #### [facility] ([id number]) [address] [facility] [address] [place] [address] Sodium [Moles/Vol] 141 mmol/L Normal 134-146 [facility] Comment on above: Performed By: #### E LEC #### [facility] ([id number]) [address] [facility], [address] [place] [address] CARDIAC AZAR ADMITon 03-07- 020 CK [Catalytic activity/Vol] 915 U/L Critically high 30-135 [facility] Comment on above: Result Comment: Test repeated. Critical value verified. Performed By: #### D RUGRPD #### [facility] [address] [place], [place] [id number] Christian Mikayla CK.MB [Mass/Vol] 12.82 ng/mL Critically high <=2.37 Th [facility] Comment on above: Result Comment: Test repeated. Critical value verified. Performed By: #### D RUGRPD #### [facility] [address] [place], [place] [id number] Christian Mikayla INR Coag (Bld) [Relative time] SEE BELOW Normal [facility] Comment on above: Result Comment: <0.0 34 ng/ml NEGATIVE 0.034-0.119 INDETERMINATE 0.120 AMI CUT OFF Performed By: #### D RUGRPD #### [facility] [address] [place], [place] [id number] Christian Mikayla ÁNGEL 96.0 ng/mL Critically high <=61.5 [facility] Comment on above: Performed By: #### D RUGRPD #### [facility] [address] [place], [place] [id number] Christian Mikayla TROP 0.028 ng/mL Normal <=0.034 [facility] Comment on above: Performed By: #### D RUGRPD #### [facility] [address] [place], [place] [id number] Christian Mikayla CK [Catalytic activity/Vol] 1282 U/L Critically high 30-135 [facility] Comment on above: Result Comment: Test repeated. Critical value verified. Performed By: #### T ROP, CMP #### [facility] [address] [place] [address] Christian Degroot CK.MB [Mass/Vol] 24.63 ng/mL Critically high <=2.37 Th e [facility] Comment on above: Result Comment: Test repeated. Critical value verified. Performed By: #### T ROP, CMP #### [facility] [address] [place], [place] [id number] Christian Santanaen INR Coag (Bld) [Relative time] SEE BELOW Normal [facility] Comment on above: Result Comment: <0.0 34 ng/ml NEGATIVE 0.034-0.119 INDETERMINATE 0.120 AMI CUT OFF Performed By: #### T ROP, CMP #### [facility] [address] [place] [address] Christian Mikayla ÁNGEL 235.0 ng/mL Critically high <=61.5 [facility] Comment on above: Performed By: #### T ROP, CMP #### [facility] [address] [place] [address] Christian Mikayla TROP 0.033 ng/mL Normal <=0.034 [facility] Comment on above: Performed By: #### T ROP, CMP #### [facility] [address] [place], [place] [id number] Christian Mikayla CBC AUTO DIFFon 03-07-2020 Basophils (Bld) [#/Vol] 0.0 103/ul Normal 0.0-0.1 [facility] Comment on above: Performed By: #### C BC #### [facility] [address] [place], [place] [address] Christian Mikayla Basophils/100 WBC (Bld) 0.1 % Critically low 0.2-2.0 [facility] Comment on above: Performed By: #### C BC #### [facility] [address] [place], [place] [id number] Christian Mikayla Eosinophils (Bld) [#/Vol] 0.0 103/ul Normal 0.0-0.7 [facility] Comment on above: Performed By: #### C BC #### [facility] [address] [place], [place] [address] Christian Mikayla Eosinophils/100 WBC (Bld) 0.0 % Critically low 0.9-7.0 [facility] Comment on above: Performed By: #### C BC #### [facility] [address] [place], [place] [address] Christianvíctor Degroot Erythrocyte distribution width (RBC) [Ratio] 13.4 % Normal 11.0-15.0 [facility] Comment on above: Performed By: #### C BC #### [facility] [address] [place], [place] [address] Christian Mikayla Hematocrit (Bld) [Volume fraction] 35.4 % Critically low 36.0-48.0 [facility] Comment on above: Performed By: #### C BC #### [facility] [address] [place] [address] Christian Mikayla Hemoglobin (Bld) [Mass/Vol] 11.4 g/dL Critically low 12.0-16.0 [facility] Comment on above: Performed By: #### C BC #### [facility] [address] [place] [address] Christian Mikayla IG # 0.07 10e3/ul Critically high 0.00-0.03 [facility] Comment on above: Performed By: #### C BC #### [facility] [address] [place] [address] Christian Mikayla IG % 0.4 % Normal 0.0-0.5 [facility] Comment on above: Performed By: #### C BC #### [facility] [address] [place], [place] [id number] Christian Mikayla Lymphocytes (Bld) [#/Vol] 1.1 103/ul Critically low 1.2-3.8 [facility] Comment on above: Performed By: #### C BC #### [facility] [address] [place], [place] [address] Christian Mikayla Lymphocytes/100 WBC (Bld) 6.9 % Critically low 20.5-60.0 [facility] Comment on above: Performed By: #### C BC #### [facility] [address] [place], [place] [address] Christian Mikayla MANUAL DIFF REQ NO Normal [facility] Comment on above: Performed By: #### C BC #### [facility] [address] [place], [place] [address] Christianvíctor Degroot MCH (RBC) [Entitic mass] 32.7 pg Normal 26.7-34.0 [facility] Comment on above: Performed By: #### C BC #### [facility] [address] [place], [place] [address] Christianvíctor Santanaen MCHC (RBC) [Mass/Vol] 32.2 g/dL Normal 29.9-35.2 [facility] Comment on above: Performed By: #### C BC #### [facility] [address] [place], [place] [address] Christian Mikayla MCV (RBC) [Entitic vol] 101.4 fL Critically high 81.0-99.0 [facility] Comment on above: Performed By: #### C BC #### [facility] [address] [place], [place] [address] Christian Mikayla Monocytes (Bld) [#/Vol] 1.4 103/ul Critically high 0.3-0.8 [facility] Comment on above: Performed By: #### C BC #### [facility] [address] [place], [place] [address] Christian Mikayla Monocytes/100 WBC (Bld) 8.6 % Normal 1.7-12.0 [facility] Comment on above: Performed By: #### C BC #### [facility] [address] [place], [place] [address] Christian Mikayla Neutrophils (Bld) [#/Vol] 13.4 103/ul Critically high 1.4-6.5 [facility] Comment on above: Performed By: #### C BC #### [facility] [address] [place], [place] [address] Christian Mikayla Neutrophils/100 WBC (Bld) 84.0 % Critically high 43.0-75.0 [facility] Comment on above: Performed By: #### C BC #### [facility] [address] [place], [place] [address] Christian Mikayla Platelet mean volume (Bld) [Entitic vol] 9.5 fL Normal 9.5-13.5 [facility] Comment on above: Performed By: #### C BC #### [facility] [address] [place], [place] [address] Christianvíctor Santanaen Platelets (Bld) [#/Vol] 207 103/ul Normal 150-450 [facility] Comment on above: Performed By: #### C BC #### [facility] [address] [place], [place] [address] Christian Mikayla RBC (Bld) [#/Vol] 3.49 106/ul Critically low 4.20-5.40 [facility] Comment on above: Performed By: #### C BC #### [facility] [address] [place], [place] [address] Christian Mikayla WBC (Bld) [#/Vol] 16.0 103/ul Critically high 4.0-11.0 [facility] Comment on above: Performed By: #### C BC #### [facility] [address] [place], [place] [address] Christian Mikayla PROF CHEM 8 (BAS METB)on Anion gap [Moles/Vol] 11.2 mmol/L Normal [facility] Comment on above: Performed By: #### D RUGRPD #### [facility] [address] [place], [place] [address] Christian Mikayla Calcium [Mass/Vol] 8.3 mg/dL Critically low 8.4-10.2 [facility] Comment on above: Performed By: #### D RUGRPD #### [facility] [address] [place], [place] [address] Christian Mikayla Chloride [Moles/Vol] 106 mmol/L Normal 98-107 [facility] Comment on above: Performed By: #### D RUGRPD #### [facility] [address] [place], [place] [address] Christian Mikayla CO2 [Moles/Vol] 24.5 mmol/L Normal 22.0-30.0 [facility] Comment on above: Performed By: #### D RUGRPD #### [facility] [address] [place] [id number] Christian Mikayla Creatinine [Mass/Vol] 0.53 mg/dL Normal 0.52-1.04 [facility] Comment on above: Performed By: #### D COLT #### [facility] [address] [place] [id number] Christian Mikayla EGFR-AF TUVALUAN >60 Normal >=60 [facility] Comment on above: Performed By: #### D RUGLANDYD #### [facility] [address] [place] [id number] Christian Mikayla EGFR-NON AF TUVALUAN >60 Normal >=60 [facility] Comment on above: Performed By: #### D COLT #### [facility] [address] [place] [address] Christian Mikayla Glucose [Mass/Vol] 113 mg/dL Critically high 74-106 [facility] Comment on above: Performed By: #### D COLT #### [facility] [address] [place] [address] Christian Mikayla Potassium [Moles/Vol] 3.7 mmol/L Normal 3.4-5.0 [facility] Comment on above: Performed By: #### D COLT #### [facility] [address] [place], [place] [address] Christian Mikayla Sodium [Moles/Vol] 138 mmol/L Normal 137-145 [facility] Comment on above: Performed By: #### D COLT #### [facility] [address] [place] [address] Christian Mikayla Urea nitrogen [Mass/Vol] 12.0 mg/dL Normal 7.0-17.0 [facility] Comment on above: Performed By: #### D COLT #### [facility] [address] [place], [place] [address] Christian Mikayla Urea nitrogen/Creatinin e [Mass ratio] 22.6 mg/mg Normal [facility] Comment on above: Performed By: #### D COLT #### [facility] [address] [place] [id number] Christian Mikayla CBC W MANUAL DIFFon 03-06-20 20 ATYPICAL LYMPH # Normal [facility] Comment on above: Performed By: #### D RUGRPD #### [facility] [address] [place] [address] Christian Mikayla ATYPICAL LYMPH % Normal [facility] Comment on above: Performed By: #### D RUGRPD #### [facility] [address] [place] [address] Christian Mikayla BAND # Normal 0.0-0.3 [facility] Comment on above: Performed By: #### D RUGRPD #### [facility] [address] [place] [address] Christian Mikayla BAND % Normal 0-5 [facility] Comment on above: Performed By: #### D RUGRPD #### [facility] [address] [place] [address] Christian Mikayla BASOM # 0.00 103/ul Normal 0.00-0.10 [facility] Comment on above: Performed By: #### D RUGRPD #### [facility] [address] [place] [address] Christian Mikayla BASOM % 0.0 % Critically low 0.2-2.0 [facility] Comment on above: Performed By: #### D RUGRPD #### [facility] [address] [place] [address] Christian Mikayla BLAST # Normal [facility] Comment on above: Performed By: #### D RUGRPD #### [facility] [address] [place] [address] Christian Mikayla BLAST % Normal [facility] Comment on above: Performed By: #### D RUGRPD #### [facility] [address] [place] [address] Christian Mikayla CORRECTED WBC Normal 4.0-11.0 [facility] Comment on above: Performed By: #### D RUGRPD #### [facility] [address] [place] [address] Christian Mikayla Eosinophils (Bld) [#/Vol] 0.00 103/ul Normal 0.00-0.70 [facility] Comment on above: Performed By: #### D RUGRPD #### [facility] [address] [place], [place] [address] Christian Mikayla Eosinophils/100 WBC (Bld) 0.0 % Critically low 0.9-7.0 [facility] Comment on above: Performed By: #### D RUGRPD #### [facility] [address] [place], [place] [address] Christian Mikayla Erythrocyte distribution width (RBC) [Ratio] 13.2 % Normal 11.0-15.0 [facility] Comment on above: Performed By: #### D RUGRPD #### [facility] [address] [place], [place] [address] Christian Mikayla Hematocrit (Bld) [Volume fraction] 44.1 % Normal 36.0-48.0 [facility] Comment on above: Performed By: #### D RUGRPD #### [facility] [address] [place], [place] [address] Christian Mikayla Hemoglobin (Bld) [Mass/Vol] 13.9 g/dl Normal 12.0-16.0 [facility] Comment on above: Performed By: #### D RUGRPD #### [facility] [address] [place] [address] Christian Mikayla LYMPHM # 0.26 103/ul Critically low 1.20-3.80 [facility] Comment on above: Performed By: #### D RUGRPD #### [facility] [address] [place], [place] [address] Christian Mikayla LYMPHM% 1.0 % Critically low 20.5-60.0 [facility] Comment on above: Performed By: #### D RUGRPD #### [facility] [address] [place], [place] [address] Christian Mikayla MCH (RBC) [Entitic mass] 32.6 pg Normal 26.7-34.0 [facility] Comment on above: Performed By: #### D RUGRPD #### [facility] [address] [place], [place] [address] Christian Mikayla MCHC (RBC) [Mass/Vol] 31.5 g/dl Normal 29.9-35.2 [facility] Comment on above: Performed By: #### D RUGRPD #### [facility] [address] [place] [address] Christian Degroot MCV (RBC) [Entitic vol] 103.3 fL Critically high 81.0-99.0 [facility] Comment on above: Performed By: #### D RUGRPD #### [facility] [address] [place] [address] Christian Mikayla METAMYELOCYTE # Normal [facility] Comment on above: Performed By: #### D RUGRPD #### [facility] [address] [place] [address] Christianvíctor Degroot METAMYELOCYTE % Normal [facility] Comment on above: Performed By: #### Dwayne LESLIERPD #### [facility] [address] [place] [address] Christian Mikayla MONOM# 1.32 103/ul Critically high 0.30-0.80 [facility] Comment on above: Performed By: #### Dwayne LESLIERPD #### [facility] [address] [place] [address] Christian Mikayla MONOM% 5.0 % Normal 1.7-12.0 [facility] Comment on above: Performed By: #### Dwayne LESLIERPD #### [facility] [address] [place] [address] Christian Mikayla MYELOCYTE # Normal [facility] Comment on above: Performed By: #### D RUGRPD #### [facility] [address] [place] [address] Christian Mikayla MYELOCYTE % Normal [facility] Comment on above: Performed By: #### D MARIAMARPD #### [facility] [address] [place] [address] Christian Degroot NRBC Normal [facility] Comment on above: Performed By: #### D MARIAMARPD #### [facility] [address] [place] [address] Christian Degroot Platelet mean volume (Bld) [Entitic vol] 9.6 fL Normal 9.5-13.5 [facility] Comment on above: Performed By: #### D MARIAMARPD #### [facility] [address] [place] [address] Christian Degroot Platelets (Bld) [#/Vol] 268 103/ul Normal 150-450 [facility] Comment on above: Performed By: #### D JUNED #### [facility] [address] [place], [place] [address] Christian Degroot RBC (Bld) [#/Vol] 4.27 106/ul Normal 4.20-5.40 [facility] Comment on above: Performed By: #### D JUNED #### [facility] [address] [place], [place] [address] Christian Degroot SEG # 24.82 103/ul Critically high 1.40-6.50 [facility] Comment on above: Performed By: #### D COLT #### [facility] [address] [place], [place] [address] Christian Degroot Segmented neutrophils/100 WBC (Bld) 94.0 % Critically high 43.0-75.0 [facility] Comment on above: Performed By: #### D JUNED #### [facility] [address] [place], [place] [address] Chrsitian Degroot WBC (Bld) [#/Vol] 26.4 103/ul Critically high 4.0-11.0 [facility] Comment on above: Performed By: #### D JUNED #### [facility] [address] [place], [place] [address] Christian Degroot CPKon 03-06-2020 CK [Catalytic activity/Vol] 464 U/L Critically high 30-135 [facility] Comment on above: Result Comment: test repeated critical value verified Performed By: #### C K #### [facility] [address] [place], [place] [id number] Christian Degroot CT ABD/PELV W CONon 03-06-20 [...] by: MAT CASEY Date: 2020-03-06 18:45 Normal [facility] CT STROKE HEAD WOon 03-06-[address] [...] MAT CASEY Date: 2020-03-06 16:31 Normal [facility] DRUG SCREEN RAPID (URINE)on 03-06-2020 AMP Positive Normal NEGATIVE [facility] Comment on above: Performed By: #### D RUGRPD #### [facility] [address] [place] [address] Christian Mikayla BAR Negative Normal NEGATIVE [facility] Comment on above: Performed By: #### D RUGRPD #### [facility] [address] [place] [address] Christian Mikayla BUP Negative Normal NEGATIVE [facility] Comment on above: Performed By: #### D RUGRPD #### [facility] [address] [place] [address] Christian Mikayla BZO Negative Normal NEGATIVE [facility] Comment on above: Performed By: #### D RUGRPD #### [facility] [address] [place] [address] Christian Mikayla RITCHIE Negative Normal NEGATIVE [facility] Comment on above: Performed By: #### D RUGRPD #### [facility] [address] [place] [address] Christian Mikayla CUT-OFFS SEE BELOW Normal [facility] Comment on above: Result Comment: [...] ng/mL Performed By: #### D RUGRPD #### [facility] [address] [place] [address] Mikayla DRUG CUT HEADER DRUG CLASS TEST SYST EM CUT-OFF CONCENTRATIONS ARE FOLLOWS: Normal [facility] Comment on above: Performed By: #### D RUGRPD #### [facility] [address] [place] [address] Christian Mikayla mAMP Negative Normal NEGATIVE [facility] Comment on above: Performed By: #### D RUGRPD #### [facility] [address] [place] [address] Christian Mikayla MTD Negative Normal NEGATIVE [facility] Comment on above: Performed By: #### D RUGRPD #### [facility] [address] [place] [address] Christian Mikayla OPI Positive Normal NEGATIVE [facility] Comment on above: Performed By: #### D RUGRPD #### [facility] [address] [place] [address] Christian Mkiayla OXY Negative Normal NEGATIVE [facility] Comment on above: Performed By: #### D RUGRPD #### [facility] [address] [place] [address] Christian Mikayla PCP Negative Normal NEGATIVE [facility] Comment on above: Performed By: #### D RUGRPD #### [facility] [address] [place] [address] Christian Mikayla PPX Negative Normal NEGATIVE [facility] Comment on above: Performed By: #### D RUGRPD #### [facility] [address] [place] [address] Christian Mikayla TCA Negative Normal NEGATIVE [facility] Comment on above: Performed By: #### D RUGRPD #### [facility] [address] [place] [address] Christian Mikayla THC Negative Normal NEGATIVE [facility] Comment on above: Performed By: #### D RUGRPD #### [facility] [address] [place] [address] Christian Mikayla ER URINE PROFILEon 0 Bilirubin [Mass/Vol] Negative Normal NEGATIVE [facility] Comment on above: Performed By: #### E RUR #### [facility] [address] [place] [address] Christian Mikayla BLOOD Negative Normal NEGATIVE [facility] Comment on above: Performed By: #### E RUR #### [facility] [address] [place] [address] Christian Mikayla Clarity (U) CLEAR Normal [facility] Comment on above: Performed By: #### E RUR #### [facility] [address] [place], [place] [id number] Christian Mikayla Color (U) YELLOW Normal YELLOW [facility] Comment on above: Performed By: #### E RUR #### [facility] [address] [place] [address] Christian Mikayla ERUAHD A micrscopic examina tion will be performed if indicated. Normal [facility] Comment on above: Performed By: #### E RUR #### [facility] [address] [place] [address] Christian Mikayla Glucose [Mass/Vol] Negative Normal NEGATIVE [facility] Comment on above: Performed By: #### E RUR #### [facility] [address] [place] [address] Christian Mikayla Ketones Ql (U) Negative Normal NEGATIVE [facility] Comment on above: Performed By: #### E RUR #### [facility] [address] [place] [address] Christian Mikayla Nitrite Ql (U) Negative Normal NEGATIVE [facility] Comment on above: Performed By: #### E RUR #### [facility] [address] [place] [address] Christian Mikayla pH (Bld) 6.0 Normal 5-9 [facility] Comment on above: Performed By: #### E RUR #### [facility] [address] [place], [place] [id number] Christian Mikayla Protein (U) [Mass/Vol] TRACE Normal [facility] Comment on above: Performed By: #### E RUR #### [facility] [address] [place] [address] Christian Mikayla SPEC GRAVITY >=1.030 Normal 1.005-<=1.02 5 [facility] Comment on above: Performed By: #### E RUR #### [facility] [address] [id number] Christianvíctor Degroot UR MICRO IND NOT INDICATED Normal [facility] Comment on above: Performed By: #### E RUR #### [facility] [address] [place], [place] [id number] Christianvíctor Degroot Urobilinogen Qn (U) 0.2 EU/dl Normal [facility] Comment on above: Performed By: #### E RUR #### [facility] [address] [place], [place] [id number] Christian Mikayla WBC (Bld) [#/Vol] Negative Normal NEGATIVE [facility] Comment on above: Performed By: #### E RUR #### [facility] [address] [place], [place] [id number] Christian Mikayla ETHANOL (BLD ALC)on 03-06-20 20 Ethanol [Mass/Vol] NOTE: 80 mg/dl is th e legal limit for a blood alcohol level Normal [facility] Comment on above: Performed By: #### E TH #### [facility] [address] [place], [place] [id number] Christianvíctor Degroot Ethanol [Mass/Vol] mg/dL Normal [facility] Comment on above: Performed By: #### E TH #### [facility] [address] [place], [place] [address] Christian Mikayla HEMOGRAM AND PLATELon 2019 WBC (Bld) [#/Vol] 23.5 103/ul Critically high 4.0-11.0 [facility] Comment on above: Performed By: #### H H #### [facility] [address] [place], [place] [address] Christian Mikayla LACTATE/LACTIC ACIDon 2019 Lactate [Moles/Vol] 0.7 mmol/L Normal 0.7-2.0 [facility] Comment on above: Performed By: #### L ACT #### [facility] [address] [place], [place] [address] Christian Mikayla MYOGLOBINon 03-06-2020 Myoglobin [Mass/Vol] 918.0 ng/mL Critically high <=61.5 [facility] Comment on above: Result Comment: test repeated critical value verified Performed By: #### M YO #### [facility] [address] [place], [place] [address] Christian Degroot POINT OF CARE GLUCOSEon 02-14 Glucose [Mass/Vol] 117 mg/dL Critically high 74-106 [facility] Comment on above: Performed By: #### D RUGRPD #### [facility] [address] [place], [place] [address] Christianvíctor Degroot PROF 14(COMP METB)on 020 Albumin [Mass/Vol] 3.3 g/dL Critically low 3.5-5.0 [facility] Comment on above: Performed By: #### T BLAYNE, CMP #### [facility] [address] [place], [place] [address] Christian Mikayla Albumin/Globulin [Mass ratio] 1.1 {ratio} Normal [facility] Comment on above: Performed By: #### T BLAYNE, CMP #### [facility] [address] [place], [place] [address] Christian Mikayla ALP [Catalytic activity/Vol] 69 U/L Normal 38-126 [facility] Comment on above: Performed By: #### T ROP, CMP #### [facility] [address] [place], [place] [address] Christian Mikayla ALT [Catalytic activity/Vol] 30 U/L Normal 9-52 [facility] Comment on above: Performed By: #### T ROP, CMP #### [facility] [address] [place], [place] [address] Christian Mikayla Anion gap [Moles/Vol] 16.8 mmol/L Normal [facility] Comment on above: Performed By: #### T ROP, CMP #### [facility] [address] [place], [place] [address] Christian Mikayla AST [Catalytic activity/Vol] 29 U/L Normal 14-36 [facility] Comment on above: Performed By: #### T ROP, CMP #### [facility] [address] [id number] Christian Mikayla Bilirubin Ql (U) 0.4 mg/dL Normal 0.2-1.3 [facility] Comment on above: Performed By: #### T ROP, CMP #### [facility] [address] [id number] Christian Mikayla Calcium [Mass/Vol] 8.7 mg/dL Normal 8.4-10.2 [facility] Comment on above: Performed By: #### T ROP, CMP #### [facility] [address] [id number] Christian Mikayla Chloride [Moles/Vol] 104 mmol/L Normal 98-107 [facility] Comment on above: Performed By: #### T ROP, CMP #### [facility] [address] [address] Christian Mikayla CO2 [Moles/Vol] 22.6 mmol/L Normal 22.0-30.0 [facility] Comment on above: Performed By: #### T ROP, CMP #### [facility] [address] [id number] Christian Mikayla Creatinine [Mass/Vol] 0.92 mg/dL Normal 0.52-1.04 [facility] Comment on above: Performed By: #### T ROP, CMP #### [facility] [address] [place], [place] [address] Christian Mikayla EGFR-AF TUVALUAN >60 Normal >=60 [facility] Comment on above: Performed By: #### T ROP, CMP #### [facility] [address] [id number] Christian Mikayla EGFR-NON AF TUVALUAN >60 Normal >=60 [facility] Comment on above: Performed By: #### T ROP, CMP #### [facility] [address] [id number] Christian Mikayla Globulin (S) [Mass/Vol] 3.0 g/dL Normal [facility] Comment on above: Performed By: #### T ROP, CMP #### [facility] [address] [id number] Christian Mikayla Glucose [Mass/Vol] 130 mg/dL Critically high 74-106 [facility] Comment on above: Performed By: #### T ROP, CMP #### [facility] [address] [place] [address] Christian Mikayla Potassium [Moles/Vol] 4.4 mmol/L Normal 3.4-5.0 [facility] Comment on above: Performed By: #### T ROP, CMP #### [facility] [address] [place] [address] Christian Mikayla Protein [Mass/Vol] 6.3 g/dL Normal 6.1-8.2 [facility] Comment on above: Performed By: #### T BLAYNE, CMP #### [facility] [address] [place] [address] Christian Mikayla Sodium [Moles/Vol] 139 mmol/L Normal 137-145 [facility] Comment on above: Performed By: #### T BLAYNE, CMP #### [facility] [address] [place] [address] Christian Mikayla Urea nitrogen [Mass/Vol] 18.0 mg/dL Critically high 7.0-17.0 [facility] Comment on above: Performed By: #### T BLAYNE, CMP #### [facility] [address] [place] [address] Christian Mikayla Urea nitrogen/Creatinin e [Mass ratio] 19.6 mg/mg Normal [facility] Comment on above: Performed By: #### T ROP, CMP #### [facility] [address] [place] [address] Christian Mikayla RESPIRATORY PANEL PLUSon Adenovirus NOT DETECTED Normal NOT DETECTED [facility] Comment on above: Performed By: #### D RUGRPD #### [facility] [address] [place] [address] Christian Mikayla B. Parapertusis NOT DETECTED Normal NOT DETECTED [facility] Comment on above: Performed By: #### D RUGRPD #### [facility] [address] [place], [place] [address] Christian Mikayla B. Pertussis NOT DETECTED Normal NOT DETECTED [facility] Comment on above: Performed By: #### D RUGRPD #### [facility] [address] [place] [address] Christian Mikayla Chlamydia Pneumoniae NOT DETECTED Normal NOT DETECTED [facility] Comment on above: Performed By: #### D RUGRPD #### [facility] [address] [place] [address] Christian Mikayla Coronavirus 229E NOT DETECTED Normal NOT DETECTED [facility] Comment on above: Performed By: #### D RUGRPD #### [facility] [address] [place] [address] Christian Mikayla Coronavirus HKU1 NOT DETECTED Normal NOT DETECTED [facility] Comment on above: Performed By: #### D RUGRPD #### [facility] [address] [place] [address] Christian Mikayla Coronavirus NL63 NOT DETECTED Normal NOT DETECTED [facility] Comment on above: Performed By: #### D RUGRPD #### [facility] [address] [place] [address] Christian Mikayla Coronavirus OC43 NOT DETECTED Normal NOT DETECTED [facility] Comment on above: Performed By: #### D RUGRPD #### [facility] [address] [place] [address] Christian Mikayla Influenza A H1 2008 NOT DETECTED Normal NOT DETECTED [facility] Comment on above: Performed By: #### D RUGRPD #### [facility] [address] [place] [address] Christian Mikayla Influenza B NOT DETECTED Normal NOT DETECTED [facility] Comment on above: Performed By: #### D RUGRPD #### [facility] [address] [place] [address] Christian Mikayla Metapneumovirus NOT DETECTED Normal NOT DETECTED [facility] Comment on above: Performed By: #### D RUGRPD #### [facility] [address] [place] [address] Christian Mikayla Mycoplas. Pneumoniae NOT DETECTED Normal NOT DETECTED [facility] Comment on above: Performed By: #### D RUGRPD #### [facility] [address] [address] Christian Mikayla Parainfluenza 1 NOT DETECTED Normal NOT DETECTED [facility] Comment on above: Performed By: #### D RUGRPD #### [facility] [address] [address] Christian Mikayla Parainfluenza 2 NOT DETECTED Normal NOT DETECTED [facility] Comment on above: Performed By: #### D RUGRPD #### [facility] [address] [place] [address] Christian Mikayla Parainfluenza 3 NOT DETECTED Normal NOT DETECTED [facility] Comment on above: Performed By: #### D RUGRPD #### [facility] [address] [place] [address] Christian Mikayla Parainfluenza 4 NOT DETECTED Normal NOT DETECTED [facility] Comment on above: Performed By: #### D RUGRPD #### [facility] [address] [place] [address] Christian Mikayla Rhino/Enterovirus NOT DETECTED Normal NOT DETECTED [facility] Comment on above: Performed By: #### D RUGRPD #### [facility] [address] [place] [address] Christian Mikayla RP2 Header 1 RESPIRATORY PANEL: VIRUSES Normal [facility] Comment on above: Performed By: #### D RUGRPD #### [facility] [address] [place] [address] Christian Mikayla RP2 Header 2 RESPIRATORY PANEL: BACTERIA Normal [facility] Comment on above: Performed By: #### D RUGRPD #### [facility] [address] [place] [address] Christian Mikayla RP2 Header 4 EUA SEE BELOW Normal [facility] Comment on above: Result Comment: This test is not yet approved or cleared by the [place] FDA. When there are no FDA-approved or cleared tests available, and other criteria are met, FDA can make tests available under an emergency access mechanism called an Emergency Use Authorization (EUA). The EUA for this test is supported by the Academic Interventionist of Health and Human Service?s (HHS?s) declaration [...] used). Performed By: #### D RUGRPD #### [facility] [address] [place] [address] RSV NOT DETECTED Normal NOT DETECTED [facility] Comment on above: Performed By: #### D RUGRPD #### [facility] [address] [place], [place] [address] SARS-CoV-2: COVID-19 NOT DETECTED Normal NOT DETECTED [facility] Comment on above: Performed By: #### D RUGRPD #### [facility] [address] [place] [address] TROPONIN - Ion 03-06-2020 Troponin I.cardiac [Mass/Vol] 0.016 ng/mL Normal <=0.034 [facility] Comment on above: Performed By: #### T BLAYNE, CMP #### [facility] [address] [place] [address] Troponin I.cardiac [Mass/Vol] SEE BELOW Normal [facility] Comment on above: Result Comment: <0.0 34 ng/ml NEGATIVE 0.034-0.119 INDETERMINATE 0.120 AMI CUT OFF Performed By: #### T ROP, CMP #### [facility] [address] [place] [address] [facility] Von 03-06-2020 XR CHEST [...] by: FELA SMITH Date: 2020-03-06 15:07 Normal [facility] CT 3D CERVICAL SPINE WITH CO NTRASTon 04-27-2018 CT 3D CERVICAL SPINE WITH CONTRAST [facility] [address] [place] [address] Patient Name: RADHA DUNCAN : 1970Sex: FAge: Race: WhiteMRN: [id number]. Location: 85Patient Status: OVisit #: [id number] Date: 04/10/2018 12:10:00 PMCompleted Date: 04/27/2018 10:58 AMRequesting Provider: MARY DIAL Attending Provider: MARY DIAL Report Copy To: TEJAS RICHARDSON Signs & Symptoms: M54.12 Radiculopathy, cervical region [id number]: Nyla MYELOGRAM AUTH [id number] VALID 04/11/18-07/12/18 PER [facility] [id number] JYComments: Exam: CT 3D CERVICAL SPINE WITH CONTRASTAccession #: [id number] CT 3D CERVICAL SPINE WITH CONTRAST 04/27/2018 [...] findings. Electronically signed by:Oli Sanders. Transcribed by: [email or web address], User Resident: MANDEEP YOUNGElectronically Signed by: OLI SANDERS @ 04/27/2018 01:02 PMI personally read this/these film(s) with this resident Normal [facility] CT 3D LUMBAR SPINE W CONTRAS Ton 04-27-2018 CT 3D LUMBAR SPINE W CONTRAST [facility] [address] [place] [address] Patient Name: ARDHA DUNCAN : 1970Sex: FAge: Race: WhiteMRN: [id number]. Location: 85Patient Status: DVisit #: [id number] Date: 04/10/2018 12:10:00 PMCompleted Date: 04/27/2018 10:59 AMRequesting Provider: MARY DIAL Attending Provider: MARY DIAL Report Copy To: DYLANTEJAS Signs & Symptoms: M54.16 Radiculopathy, lumbar region [id number]: Nyla MYELOGRAM AUTH [id number] VALID 04/11/18-07/12/18 PER [facility] [id number] JYComments: Exam: CT 3D LUMBAR SPINE W CONTRASTAccession #: [id number] CT 3D LUMBAR SPINE W CONTRAST 04/27/2018 [...] concur with these findings. Electronically signed by:Antony Seklton. Transcribed by: [email or web address], User Resident: MANDEEP YOUNGElectronically Signed by: ANTONY SKELTON @ 04/27/2018 05:36 PMI personally read this/these film(s) with this resident Normal [facility] ENTIRE MYELOGRAMon 8 ENTIRE MYELOGRAM [facility] [address] [id number] Patient Name: RADHA DUNCAN : 1970Sex: FAge: Race: WhiteMRN: [id number]. Location: Patient Status: OVisit #: [id number] Date: 04/10/2018 12:10:00 PMCompleted Date: 04/27/2018 10:19 AMRequesting Provider: MARY DIAL Attending Provider: MARY DIAL Report Copy To: TEJAS RICHARDSON Signs & Symptoms: M54.16 Radiculopathy, lumbar region [id number]: Nyla CT MYELOGRAMComments: , , , Ordering Provider - MARY DIAL MD , Exam: ENTIRE MYELOGRAMAccession #: [id number] ENTIRE MYELOGRAM 04/27/2018 10:19 AM EST SIGNS [...] and risks are acceptable. Consent was obtained. Timeout:[place] protocol timeout verification performed. PROCEDURE:Estimated blood loss:None [...] findings. Electronically signed by:Oli Sanders. Transcribed by: [email or web address], User Resident: MANDEEP YOUNGElectronically Signed by: OLI SANDERS @ 04/27/2018 01:01 PMI personally read this/these film(s) with this resident Normal [facility] Comment on above: Order Comment: , , = ========= , Ordering Provider - MARY DIAL MD , Ta 02-20-2018 CNPYamilex Telephone ([facility]) -------RADHA DUNCAN ([id number]) 1970 FDate Time Provider Gakndanxrn80/8/18 MAGED MURDOCK During your visit today, we recorded the following information about you:[facility] Patient Service Spec 02/20/2018 8:05 [...] from his care.Please call her back at [phone].Elysia Montoya Psr 02/22/2018 8:37 AM SignedPlease fax letter over to [phone].Clint Park LPN 02/27/2018 10:18 AM SignedSpoke with patient and she wanted to know if knew of a physician inthe area that she lived that could do the ketamine infusion.I explained most likely he would not have this information she would need tocheck around in her area with other pain providers to see if they do theinfusions. She said she found one in the [place] area but they want money upfront and [...] Known Allergies)Date Reviewed: 02/10/2018Reviewed by: Kayla Sparks DRINKING WATER TECHNICIAN - Fully AssessedReason for Visit: Letter [264]Prescriptions [...] MURDOCK MD on 02/28/18 Normal [facility] CNOVon 02-10-2018 CNOV Office Visit ([facility]) -------RADHA DUNCAN ([id number]) 1970 FDate Time Provider Department02/10/18 10:45 AM MAGED MURDOCK During your visit today, we recorded the following information about you: Pulse Respiration Blood pressure Weight 80/minute 16/minute 132/47 69.9 kgMaged Murdock MD 02/11/2018 1:30 PM AddendumSUBJECTIVE:The patient presents to [facility] Department for afollow-up appointment [...] percocet was last taken 02/09/2018 in the [place] [facility] records were reviewed.Imaging results in scanned [...] other than HPI.Data scribed by above mentioned MA/DRINKING WATER TECHNICIAN/RN/PA, and personally reviewed andverified by physician. Maged [...] treatment plan. Patient agreeswith above. Maged Murdock, PAUcincinnati va medical center 2017Referring Provider: LINDSEY AGUILAR [[id number]]Allergies As of Date: 02/10/2018(No Known Allergies)Date Reviewed: 02/10/2018Reviewed by: Kayla Sparks DRINKING WATER TECHNICIAN - Fully AssessedReason for Visit: Follow Up [...] FOR* 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] INVALID FOR*Letter TextSept2017Maged MurdockLicking Memorial Hospitalpartment of Pain [address] [place]onaSan [place], [place] [phone] [phone] Radha Duncan:Thank you for seeing me today. [...] any questions. Sincerely, Maged Murdock MDEncounter Number: [id number] Status:Closed by MAGED MURDOCK MD on 02/11/18 Normal [facility] PROGRESSon 02-10-2018 Protein mass conc HNO ID: [id number] thor: Maged Jolleyervice: (none)Author Type: PhysicianType: Progress NotesFiled: 02/11/2018 1:30 PMNote Text:SUBJECTIVE:The patient presents to [facility] Management Departmentfor a follow-up appointment [...] other than HPI.Data scribed by above mentioned MA/DRINKING WATER TECHNICIAN/RN/PA, and personally reviewed andverified by physician. Maged [...] Campus CNOVon 01-10-2018 CNOV Office Visit ([facility]) -------DAKOTARADHA Dereje ([id number]) 1970 FDate Time Provider Department01/10/18 1:00 PM MONICA YAN (ARLENE) [facility] During your visit today, we recorded the following information about you: Pulse Blood pressure Weight 85/minute 127/47 70.3 kgMonica Yan APRN.CNP 01/10/2018 2:13 PM SignedSUBJECTIVE:The patient presents to [facility] Department for afollow-up appointment [...] and C4-C5 secondaryto DDDAnterior mechanical fusion of T4-9-9PSDARD OF SYSTEMS:GENERAL: (-) weight loss, (+)malaise, (-)fevers.HEENT:(+)headache [...] other than HPI.Data scribed by above mentioned MA/DRINKING WATER TECHNICIAN/RN/PA, and personally reviewed andverified by Monica Yan [...] resulting treatment plan. Patient agreeswith above.Monica Yan APRN.[facility] 2017Referring Provider: TEJAS RICHARDSON JR [[id number]]Allergies As of Date: 01/10/2018(No Known Allergies)Date Reviewed: [...] INVALID FOR*Follow-up and Disposition History RecordedEncounter Number: [id number] Status:Closed by MONICA YAN CNP on 01/10/18 Normal [facility] PROGRESSon 01-09-2018 Protein mass conc HNO ID: [id number] thor: Monica Pereyra (Occupational Safety Specialist) HillService: (none)Author Type: Nurse PractitionerType: Progress NotesFiled: 01/10/2018 2:13 PMNote Text:SUBJECTIVE:The patient presents to [facility] Departmentfor a follow-up appointment [...] to moderate foraminal narrowing at C3-C4, and C4-J5azjxwtcbu to DDDAnterior mechanical fusion of A4-3-1YNWPKJ OF SYSTEMS:GENERAL: (-) weight loss, (+)malaise, (-)fevers.HEENT:(+)headache [...] other than HPI.Data scribed by above mentioned MA/DRINKING WATER TECHNICIAN/RN/PA, and personally reviewed andverified by Monica Yan [...] Patientagrees with above.Monica Yan APRN.Lali 2017 Normal [facility] Ta 12-21-2017 CNPN Telephone ([facility]) -------RADHA DUNCAN ([id number]) 1970 FDate Time Provider Department12/21/17 MAGED MURDOCK During your visit today, we recorded the following information about you:Lorena Araiza 12/21/2017 10:31 AM AddendumPatient calling in to inquire if you have received MRI [facility].Please advisJacob Park LPN 12/22/2017 3:15 PM SignedSpoke with patient and informed her that we did receive the thoracic MRI whichwas normal.We did not receive the cervical MRI. She will call [facility] and have them refaxit.Kami Zheng Workleader 12/26/2017 9:53 AM SignedPatient called back in regards to below message. Patient would like to know ifwe have received the Cervical MRI as it was refaxed 12/22. Pleasereview.Clint Park LPN 12/26/2017 11:01 AM SignedSpoke to [facility] and they are refaxing it as I [...] LPN - Fully AssessedReason for Visit: Question [6587]Prescriptions as of 12/21/2017 Sig: OXCARBAZEPINE 150 MG [...] PARK LPN on 12/22/17 Normal [facility] CNOVon 12-08-2017 CNOV Office Visit ([facility]) -------DAKOTARADHA ([id number]) 1970 [facility] Time Provider Department12/08/17 1:30 PM MAGED MURDOCK During your visit today, we recorded the following information about you: Pulse Respiration Blood pressure Weight 62/minute 16/minute 105/40 68.9 kgMaged Murdock MD 12/08/2017 6:06 PM SignedReferring Or Consulting Physician:Lindsey Aguilar, PA[address] [address]AWDUB COMPLAINT: pain in my neck, shoulders, thoracic [...] Number of children: 0Occupational 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 Maged [...] also during rena-operative period. we dont have caru-lsybeyd-cqkqumjc for disability, likely to hamper rapid recovery [...] she did have severe postprocedure pain in [place] [facility] handsDirect patient care time spent: [...] mail.Maged Murdock MDJuly 2017Referring Provider: LINDSEY AGUILAR [[id number]]Allergies As of Date: 12/08/2017(No Known Allergies)Date Reviewed: [...] region [M48.02]Order(s):C-REACTIVE PROTEIN (CRP) [SQCRP] Order #: [id number] FUTURE SED RATE WESTERGREN [SQWSR] Order #: [id number] FUTURE TSH BLD [SQTSH] Order #: [id number] FUTURE IRON + TIBC [SQIRON] Order #: [id number] FUTURE VITAMIN D 25 HYDROXY [SQVITD] Order #: [id number] FUTURE MRI THORACIC SPINE WO/W IVCON [[id number]] Order #: [id number] FUTURE iv contrast (will be provided with [...] EachRfl: 0 MRI CERVICAL SPINE WO IVCON [[id number]] Order #: [id number] FUTUREPrescriptions as of 12/08/2017 Sig: OXCARBAZEPINE 150 [...] discontinue is not on file.Letter TextJuly 2017Maged MurdockOhioHealth Doctors HospitalDepartment of Pain [id number], [place] [phone] [phone] Suzanne M Bailey:Thank you for seeing me [...] medications for the issues above, [facility]. Afterthat, further testing could be done to get to the bottom of your problems.Please call with any questions. 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 Maged [...] she did have severepost procedure pain in [place] [facility] handsDirect patient care time spent: [...] mail.Maged Murdock MDJuly 2017 Normal [facility] Vital Signs Date Time Vital Sign Value Performing Clinician Faci lity 06-26-2024 09:30-0500 Body height 160 cm Maged Contreras DO Work Phone: [facility] 06-26-2024 09:30-0500 Body mass index (BMI) [Ratio] 30.11 kg/m2 Maged Contreras DO Work Phone: [facility] 06-26-2024 09:30-0500 Body weight 77.11 kg Maged Contreras DO Work Phone: [facility] Encounters Encounter Date Encounter Type Care Provider Facility Start: 08-27-2024 End: 08-27-2024 ambulatory Christian Jameson MD Facility:[facility] Start: 07-23-2024 End: 07-23-2024 ambulatory Christian Jameson MD Facility:[facility] Start: 06-26-2024 End: 06-26-2024 Bamboo flowsheet Maged Eagle Ben DO Work Phone: [facility] Start: 06-26-2024 End: 06-26-2024 Bamboo flowsheet Maged Eagle Ben DO Work Phone: [facility] Start: 06-26-2024 End: 06-26-2024 Clinical Support Gina Riddle [facility] Work Phone: [facility] Comment on above: 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 (Primary Dx) Start: 06-26-2024 End: 06-26-2024 Office outpatient new 45 minutes Maged Shagufta Contreras DO Work Phone: [facility] Comment on above: 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 (Primary Dx); Impacted cerumen of left ear Start: 06-25-2024 End: 06-25-2024 ambulatory Christian Jameson MD Facility: [facility] Start: 06-11-2024 End: 06-11-2024 ambulatory Christian Jameson MD Facility:[facility] Start: 04-24-2024 End: 04-24-2024 ambulatory [facility] Start: 04-11-2024 End: 04-11-2024 ambulatory [facility] Start: 04-04-2024 End: 04-04-2024 ambulatory [facility] Start: 03-27-2024 End: 03-27-2024 ambulatory FELA Mcghee [facility] Start: 03-20-2024 End: 03-20-2024 ambulatory FELA Mcghee [facility] Start: 03-16-2024 End: 03-16-2024 ambulatory TEJAS RICHARDSON [facility] Start: 03-15-2024 End: 03-15-2024 ambulatory [facility] Work Phone: Start: 03-15-2024 End: 03-15-2024 Patient encounter procedure [facility] Work Phone: Start: 03-13-2024 End: 03-13-2024 [facility] Start: 03-07-2024 End: 03-07-2024 ambulatory [facility] Start: 12-15-2023 End: 01-15-2024 ambulatory TEJAS RICHARDSON [facility] Start: 12-05-2023 End: 12-15-2023 ambulatory TEJAS RICHARDSON [facility] Start: 11-10-2023 End: 11-10-2023 ambulatory Tejas Richardson DO Facility:Infectious Disease Start: 10-26-2023 End: 10-26-2023 ambulatory Pavel Rodriges MD Facility:[facility] Start: 10-26-2023 End: 10-26-2023 ambulatory Tejas Richardson DO Facility:[facility] Start: 08-22-2023 End: 08-22-2023 ambulatory TEJAS RICHARDSON [facility] Start: 08-15-2023 End: 09-14-2023 ambulatory [facility] Start: 07-18-2023 End: 08-15-2023 ambulatory [facility] Start: 03-06-2020 End: 03-07-2020 Patient encounter procedure PEREZ LESTER Facility: Start: 04-27-2018 End: 04-28-2018 Patient encounter procedure PROVIDER UNKNOWN Facility:[facility] Start: 02-10-2018 End: 02-13-2018 Patient encounter MAGED MURDOCK [facility] Start: 01-10-2018 End: 01-11-2018 Patient encounter MONICA Pereyra ARLENE YAN [facility] Start: 12-08-2017 End: 12-09-2017 Patient encounter MAGED MURDCOK [facility] Procedures Date Procedure Procedure Detail Performing Clinician Start: 06-26-2024 AUDITORY FUNCTION TESTS Gina Autumn Riddle [facility] Work Phone: Start: 03-06-2020 End: 03-06-2020 Microscopic examination of blood, culture PEREZ LESTER Comment on above: Performed By: #### D RUGRPD #### [facility] [address] [address] Christian Degroot Start: 01-30-2020 Mammography Maged mercer DO Work Phone: Plan of Treatment Date Care Activity Detail Author Start: 02-06-2025 Screening for malign ant neoplasm of cervix [facility] Start: 06-26-2024 End: 06-26-2024 Patient encounter procedure 06/26/2024 9:30 AM EST Office Visit [facility] [address] [place] [address] Maged Contreras, [address] [place] [address] Arrived AB [facility] Comment on above: Arrived Start: 01-15-2024 Influenza vaccination Influenza Vacc ine (#1) [facility] Start: 01-29-2021 Screening for malign ant neoplasm of breast Mammogram [facility] Start: 1990 Screening for malign ant neoplasm of cervix Pap Smear [facility] Start: 1969 Screening for malign ant neoplasm of colon [facility] Immunizations Immunization Date Immunization Notes Care Provider Nazanin thornton 11-29-2020 Pfizer Purple Cap SARS-CoV-2 Vaccination Maged Contreras DO Work Phone: [facility] 11-09-2020 Pfizer Purple Cap SARS-CoV-2 Vaccination Maged Contreras DO Work Phone: [facility] 03-06-2020 influenza, high dose seasonal, preservative-free Maged Contreras DO Work Phone: [facility] 03-06-2020 influenza virus vacc ine, unspecified formulation Maged Contreras DO Work Phone: [facility] Payers Date Payer Category Payer Private Health Insurance [facility] [id number] 2023 Unknown 2023 Unknown [id number] 2022 Unknown [id number] 1969 Unknown [id number] 2.840.1.553603.3.579. 2.647 1969 Unknown [id number] 2.840.1.775715.3.579. 2.593 1969 Unknown [id number] 2.840.1.480055.3.579. 2.1285 1969 Unknown [id number] 2.840.1.441437.3.579. 2.128 1969 Unknown [id number] 2.840.1.135425.3.579. 2.1285 1969 Unknown [id number] 2.16840.1.579032.3.579. 2.1285 1969 Unknown [id number] 2.16840.1.732176.3.579. 2.1285 1969 Unknown [id number] 2.16840.1.082819.3.579. 2.1286 1969 Unknown [id number] 2.840.1.255168.3.579. 2.1285 1969 Unknown [id number] 2.840.1.102286.3.579. 2.1285 1969 Unknown [id number] 2.840.1.031826.3.579. 2.1285 1969 Unknown [id number] 2.840.1.820716.3.579. 2.1285 1969 Unknown [id number] 2.840.1.085868.3.579. 2.1285 1969 Unknown [id number] 2.0.1.628784.3.579. 2.1285 1969 Unknown [id number] .0.1.085517.3.579. 2.1285 1969 Unknown [id number] 2.0.1.823704.3.579. 2.1285 1969 Unknown [id number] 07.01.830.1.736239.3.579. 2.1285 1969 Unknown [id number] 07.01.830.1.924959.3.579. 2.9 1969 Unknown [id number] 07.01.830.1.705818.3.579. 2.1258 1969 Unknown [id number] .840.1.333189.3.579. 2. 1969 Unknown [id number] .840.1.362863.3.579. 2. 1969 Unknown [id number] 2.840.1.978160.3.579. 2. 1969 Unknown [id number] 2.840.1.290388.3.579. 2. 1969 Unknown [id number] .840.1.165561.3.579. 2.196 1969 Unknown [id number] 2.16.840.1.702449.3.579. 2.196 1969 Unknown [id number] 2.16.840.1.940299.3.579. 2.196 1959 Unknown [id number] Unknown [id number] Social History Date Type Detail Facility Tobacco smoking stat [facility] Unknown if ever smoked [facility] Work Phone: Start: 1970 Sex Assigned At Female F [facility] Tobacco smoking stat [facility] Tobacco smoking consumption unknown [facility] Start: 1970 Sex assigned at Not on file [facility] Start: 06-26-2024 Gender identity Not on file [facility] Start: 06-26-2024 Tobacco smoking stat [facility] Smokes tobacco daily [facility] [...] History of Present illness Narrative 06-26-2024 Maged Contreras, - 06/26/2024 9:30 AM EST Note Date [...] back as needed documented in this encounter [facility] Evaluation note Note Date & Type Note Facility Evaluation note No assessment information availa [facility] Work Phone: Evaluation note Note Date & Type Note Facility Evaluation note Diagnosis Sensorineural hearing loss (SNHL) of left ear with unrestricted hearing of right ear- Primary Impacted cerumen of left ear Impacted cerumen documented in this encounter [facility] Evaluation note Note Date & Type Note Facility Evaluation note Diagnosis Conductive hearing loss of left ear with unrestricted hearing of right ear- Primary documented in this encounter [facility] Healthcare Summary Purpose Family History [...] CREATED AUTHOR AUTHOR'S ORGANIZ ATION 05/03/2018 [facility] DATE CREATED AUTHOR AUTHOR'S ORGANIZ ATION 04/09/[address] [facility] DATE CREATED AUTHOR AUTHOR'S ORGANIZ ATION 04/07/2024 [facility] DATE CREATED AUTHOR AUTHOR'S ORGANIZ ATION 04/28/2024 [facility] DATE CREATED AUTHOR AUTHOR'S ORGANIZ ATION 06/28/2024 [facility] DATE CREATED AUTHOR AUTHOR'S ORGANIZ ATION 09/06/2024 [facility] Care Teams (unrecognized sec tion and content) Team Status: Active Member Role Status Dates Tejas Richardson JR DO Primary Care Provider Active Team Status: Inactive Member Role Status Dates Tejas Richardson JR DO Primary Care Provider Active Start: March 15, 2024 End: March 15, 2024 Fela Roman MD Attending Provider Active Sta rt: March 15, 2024 End: March 15, 2024 Reporting Developer Relationship Specialty Start Date End Date Tejas Richardson MD [address] [place] [address] PCP - General Internal Medicine 06/26/24 Reporting Developer Relationship Specialty Start Date End Date Tejas Richardson MD [address] [place] [address] PCP - General Internal Medicine 06/26/24 Reporting Developer Relationship Specialty Start Date End Date Tejas Richardson MD [address] [place] [address] PCP - General Internal Medicine 06/26/24 Goals [...] BE BASED ON THE PRIMARY CLINICAL RECORDS. [facility] [facility]. provides no warranty or guarantee of the accuracy or completeness of information in this document.
== END 2024-10-17 08:52 | disposition home or self-care (01) ==
LOC: PM 08:52
PROVIDERS: PCP Internal Medicine; Visit Provider Nurse Practitioner
DX: M48.062 Spinal stenosis, lumbar region with neurogenic claudication (principal); M47.816 Spondylosis without myelopathy or radiculopathy, lumbar region; M53.3 Sacrococcygeal disorders, not elsewhere classified; M96.1 Postlaminectomy syndrome, not elsewhere classified; M54.16 Radiculopathy, lumbar region
CPT/HCPCS: G0463

== ENCOUNTER 2024-12-12 09:06 | Outpatient (OUT) | payer OTHER, SELFPAY ==
--- OUTSIDE RECORDS SUMMARY | 2024-06-22 04:30 | XMS_ITS ---
Author Organization [facility] Address [address] [place] [address] Care Team Providers Care Project Manager Entertainment And Media Name Role Phone Nicole Collado Unavailable [phone] LatashamiloTejas Unavailable Unavailable REASON FOR VISIT LUMBAR [...] Encounters Encounter Location Date Provider Diagnosis [facility] Office [address] [place] [address] [place] [address] 06/22/2024 Nicole Collado Aftercare following surgery of the musculoskeletal system Z47.89 Assessments Encounter Date Diagnosis (ICD Code) Assessment Notes Treatment Notes Treatment Clinical Notes Section Notes 06/22/2024 Aftercare following surgery of the musculoskeletal system (ICD-10 - Z47.89) Plan Of Treatment Pending Test Test Name Order Date Lumbar spine, 4v flex ext - 42481 2024 Progress Notes * RAHEEM DUNCAN MDOB: [birth year] (54 yo F)Acc No.[id number]:06/22/2024 Patient: RAHEEM GUERIN Provider: Taz Pineda MD, PhD :1970 A ge:54 Y S ex:Female Date:06/22/2024 Address:[facility] [address] [place] [address], [id number] Subjective: * Chief Complaints: * 1 . [...] signature of Samir Collado MD, PHD on 12/12/2024 at 09:08 AM EDT Sign off status: Pending * Provider: Taz Pineda MD, PhD Date: 06/22/2024 Generated for Cecille quinn/Alecia/Brigetteitting on: 12/12/2024 09:08 AM EDT
--- OUTSIDE RECORDS SUMMARY | 2024-12-12 09:08 | XMS_ITS | Clinical Summary ---
Author Organization [facility] Address [address] [place] [address] Care Team Providers Care Adzing And Boring Machine Operator Name Role Phone Osiris Dixon DO, Charles [...] N ot on file 04/24/2020 Data from: https://www.neighborhoodatlas.medicine.[facility].edu/. 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
--- OUTSIDE RECORDS SUMMARY | 2024-12-12 09:08 | XMS_ITS | Patient Health Record ---
Author Organization [facility] Address [address] [place] [address] Care Team Providers Care Dry Cleaning Teacher Name Role Phone Nicole Collado Unavailable [phone] Tejas Newell Unavailable Unavailable xxSalima Agustin Unavailable Allergies Allergen (clinical drug ingredient) Drug/Non Drug Allergy documented on EMR Reaction Allergy Type Onset Date Status morphine morphine Unknown Drug Allergy Active Reason For Referral No Information Medications Medication SIG (Take, Route, Frequency, Duration) [...] Problem Status W/U Status Risk Notes Problem [id number] Arthrodesis status (Z98.1) Active confirmed Problem 9888560261 Other intervertebral disc displacement, lumbar region (M51.26) Active confirmed Problem 789749360 Radiculopathy, lumbar region (M54.16) Active confirmed Problem 820598895062041 Trochanteric bursitis, left hip (M70.62) Active confirmed Problem Dehiscence of surgical wound (04948722) Disruption of external operation (surgical) wound, not elsewhere classified, initial encounter (T81.31XA) Active confirmed Problem 35852838 Disruption of external operation (surgical) wound, not elsewhere classified, subsequent encounter (T81.31XD) Active confirmed Problem 72084436 DDD (degenerativ e disc disease), lumbar (M51.36) Active confirmed Problem 542970491 Urinary incontinence, unspecified type (R32) Active confirmed Problem 84131749 Spinal stenosis, lumbar region without neurogenic claudication (M48.061) Active confirmed Problem 340247500 Encounter for other orthopedic aftercare (Z47.89) Active confirmed Encounters Encounter Location Date Provider Diagnosis [facility] [address] [place] [address] 12/16/2023 Salima Patel Disruption of external operation (surgical) wound, not elsewhere classified, subsequent encounter T81.31XD [facility] [address] [place] [address] 02/17/2024 Salima Cassiteed Trochanteric bursitis, left hip M70.62 Assessments Encounter Date Diagnosis (ICD Code) Assessment Notes Treatment Notes Treatment Clinical Notes Section Notes 12/16/2023 Disruption of external operation (surgical) wound, not elsewhere classified, subsequent encounter (ICD-10 - T81.31XD) 1. Postoperative wound incision recheck 02/17/2024 Trochanteric bursitis, left hip (ICD-10 - M70.62) 1. 6 months s/p L3-4 decompression/fu francisco j and I& 2. Left greater trochanteric bursitis 12/16/2023 Other Patient's midline lumbar incision has [...] Best regards, 1. 6 months s/p L3-4 decompression/fu francisco j and I& 2. Left greater trochanteric bursitis Plan Of Treatment Pending Test Test Name Order Date Lumbar spine, 4v flex ext - 18811 2023 Lumbar spine, 4v flex ext - 56503 2023 Lumbar spine 2v ap and lat - 60310 02/16 Lumbar spine 2v ap and lat - 24666 10/06 Lumbar spine 2v ap and lat - 01330 11/03 DME - Lumbar Support, Surgical OTS 08/25 SFS - Lumbar Spine PT Order, Isometrics & Strenghening w/Modalities as needed, 2-3 times per week for 6 weeks 07/15/2023 MRI : Lumbosacral Spine W/O Contrast - 7 8 11/11/2023 Future Test Test Name Order Date Chest 2 views - [id number] 08/03/2023 CBC 08/03/2023 Type and Screen Blood Type 08/03/2023 PT/PTT 08/03/2023 BMP 08/03/2023 MRSA (Bilateral Nares) PCR 08/03/2023 EKG 08/03/2023 Insurance Providers Payer Name Payer Address Payer Phone Subscriber Number Group Number Insured Name Patient Relationship to Insured Coverage Start Date Coverage End Date [employer] [address] [address] [place] [address] [id number] RAHEEM DUNCAN Self - patient is the insured Medical (General) History Medical History History ICD Code Osteoarthritis Anxiety Depression Surgical History Surgery Date(Month/Year) Lumbar wound I & D, closure 09/2023 L3-4 laminectomy, PSF 08/2023 Pain pump implant Fusion
--- OUTSIDE RECORDS SUMMARY | 2024-12-12 09:08 | XMS_ITS | Clinical Summary ---
Author Organization [facility] Address [facility] [facility] [place] [address] Care Team Providers Care Window Shade Cutter Name Role Phone Tejas Newell DO Primary [...] on file Insurance [employer] Care Teams Window Shade Cutter Relationship Specialty Start Date End Date Tejas Newell DO [facility] [place] [address] PCP - General Internal Medicine 05/01/19
--- OUTSIDE RECORDS SUMMARY | 2024-12-12 09:08 | XMS_ITS | Clinical Summary ---
Author Organization [employer] Address [id number] [address] [place] [address] Care Team Providers Care Deli Manager Name Role Phone Osiris Dixon DOTejas Roddy [...] (10/26/2017): Added automatically from request for surgery [id number] Occipital neuralgia of left side 07/06/2017 Overview (07/06/2017): Added automatically from request for surgery [id number] Chronic migraine without aur a, with intractable migraine, so stated, with status migrainosus 06/01/2017 Overview (06/01/2017): Added automatically from request for surgery [id number] Cervical spondylosis without myelopathy 05/04/20 17 Cervical [...] 01/14/2025 03/06/2020 Medical Devices Implanted Type Area Camera Engineer Device Identifier Shelf Expiration Date Model / Serial / Lot Neuro Pump Pump [employer] [facility] 8637-20 / [id number] / Procedures Procedure Name Priority Date/Time Associated Diagnosis Comments HIGH RISK HPV W/MELIA Routine 02/07/2020 1:47 PM EDT Cervical smear, as part of routine gynecological examination from Last 3 Months or Most Recently Relevant to Health Maintenance Results * High risk HPV w/melia (02/07/2020 1:47 PM EDT) Hpv specimen type ThinPrep 02/07/2020 5:38 PM EDT [facility] Hpv 16 Negative Negative^N egative 02/12/2020 7:[address] [facility] Hpv 18 Negative Negative^N egative 02/12/2020 7:[address] [facility] Other high risk hpv Negative Negative^N egative 02/12/2020 7:[address] [facility] Comment: HPV types 31,33,35,39,45,52,56,58,59,66 and 68 DNA were undetectable. Serum / Unknown 02/07/2020 1 :47 PM EDT 02/07/2020 6:01 PM EDT us Adriana Cooper MD LAB BLOOD ORDERABLES Final Resul t Performing Organization Address City/State/[facility] Co de Phone Number [facility] [address] [facility], [place] [address] [facility] [address] [place] [address], [address] [place] [address] from Last 3 Months or Most Recently Relevant to Health Maintenance Insurance Care Teams Deli Manager Relationship Specialty Start Date End Date Tejas Newell Jr., DO [address] [place] [address] PCP - General Internal Medicine 11/03/16
--- OUTSIDE RECORDS SUMMARY | 2024-12-12 09:08 | XMS_ITS | Encounter Summary ---
Author [facility] Address [id number] [address] [place] [address] Care Team Providers Care Orthopedics Pediatric Physician Name Role Phone Osiris Dixon Tejas Roddy Primary Care Provider Encounter Details Date Type Department Care Team (Late st Contact Info) Description 03/24/2023 Orders Only [facility] [address] [facility] [address] [place] [address] Lei Jung MD [address] [facility] [address] [place] [address] Lumbar spondylosis Social History Tobacco Use Types [...] myelopathy documented in this encounter Care Teams Orthopedics Pediatric Physician Relationship Specialty Start Date End Date Tejas Newell Jr., [address] [place] [address] PCP - General Internal Medicine 11/03/16 documented as of this encounter
--- OUTSIDE RECORDS SUMMARY | 2024-12-12 09:08 | XMS_ITS | Encounter Summary ---
Author Organization [facility] tem Address [id number] [address] [place] [address] Care Team Providers Care Tray Casting Machine Operator Name Role Phone Osiris Dixon DO, Charles L Primary Care Provider Reason for Referral * Diagnostic Imaging (Routine) - Pending Review Specialty Diagnoses / Procedures Referred By Contmarce t Referred To Contact Radiology Diagnoses Receiving intravenous antibiotic treatment at home Procedures IR PICC line PICC RN without port pump more than 5 years without guidance Albert Roman MD [address] [place] [address] Phone: tel: fax: Referral ID Status Reason Start Date Expiration Date V isits Requested Visits Authorized [id number] Pending Review 03/16/2024 03/16/2025 1 1 Encounter Details Date Type Department Care Team (Late st Contact Info) Description 03/16/2024 Orders Only [facility] - Interventional Radiology [address] [place] [address] Albert Roman MD [address] [place] [address] Receiving intravenous antibiotic treatment at [...] Primary documented in this encounter Care Teams Tray Casting Machine Operator Relationship Specialty Start Date End Date Tejas Newell Jr., [address] [place] [address] PCP - General Internal Medicine 11/03/16 documented as of this encounter
--- OUTSIDE RECORDS SUMMARY | 2024-12-12 09:25 | XMS_ITS | CCD ---
Author Organization [facility] Care Team Providers Care Equipment Analyst Name Role Phone MAGED MURDOCK Unavailable Unavailable LINDSEY AGUILAR (PA) Unavailable Unavail able MONICA YAN (PAPER BOX MAKER) Unavailable Unavailabl TEJAS Benavidez JR Unavailable Unavail [...] Valone MD, Tejas L Primary Care Provider [phone] MAGED CONTRERAS Attending Unavailable GINA RIDDLE Attending Unavailable Gisell CHONG, Christian Singletary Attending Unavailable [facility] Unavail able Gisell CHONG, Christian Singletary Attending Unavailable [facility] Unavail able Gisell CHONG, Christian Singletary Attending Unavailable [facility] Unavail able Zahira CHONG, Pavel Carr Attending Unavailable [facility] Unavail able [facility], [facility] Unavail able Yeison HENDRICKS, Hanane Finn Attending U navailable [facility] Unavail able Zahira CHONG, Pavel Carr Attending Unavailable [facility] CHONG, Nicole Neri Referring Unavailabl e Gisell CHONG, Christian Singletary Attending [facility] Unavail able Allergies Allergy Classification Reported Allergen(s) [...] to moderate hearing loss above 4K Hz [facility] COMPLETE BLOOD COUNTon 04-24 Erythrocyte distribution width (RBC) [Ratio] 16.6 % High 11.5-15.0 [facility] Comment on above: Performed By: #### C KJ, THREAD MILLING MACHINE SET UP OPERATOR #### [facility] ([id number]) [address] [address] Hematocrit (Bld) [Volume fraction] 40.9 % Normal 35-47 [facility] Comment on above: Performed By: #### Jacqueline UNDERWOOD, THREAD MILLING MACHINE SET UP OPERATOR #### [facility] ([id number]) [address], [facility] [address] [place] [address] Hemoglobin (Bld) [Mass/Vol] 13.5 g/dL Normal 11.7-15.5 [facility] Comment on above: Performed By: #### C KJ, THREAD MILLING MACHINE SET UP OPERATOR #### [facility] ([id number]) [address], [facility] [address] [place] [address] MCH (RBC) [Entitic mass] 32.0 pg Normal 27-34 [facility] Comment on above: Performed By: #### C KJ, THREAD MILLING MACHINE SET UP OPERATOR #### [facility] ([id number]) [address], [address] [place] [address] MCHC (RBC) [Mass/Vol] 33.1 g/dL Normal 32-36 [facility] Comment on above: Performed By: #### Jacqueline UNDERWOOD, THREAD MILLING MACHINE SET UP OPERATOR #### [facility] ([id number]) [address], [address] [place] [address] MCV (RBC) [Entitic vol] 97 fL Normal 80-100 [facility] Comment on above: Performed By: #### C KJ, THREAD MILLING MACHINE SET UP OPERATOR #### [facility] ([id number]) [address] [address] Platelet mean volume (Bld) [Entitic vol] 8.8 fL Normal 7-12 [facility] Comment on above: Performed By: #### C KJ, THREAD MILLING MACHINE SET UP OPERATOR #### [facility] ([id number]) [address] [address] Platelets (Bld) [#/Vol] 328 10*3/uL Normal 150-450 [facility] Comment on above: Performed By: #### C KJ, THREAD MILLING MACHINE SET UP OPERATOR #### [facility] ([id number]) [address] [address] RBC COUNT 4.23 X10E12/L Normal 3.80-5.20 [facility] Comment on above: Performed By: #### Jacqueline UNDERWOOD, THREAD MILLING MACHINE SET UP OPERATOR #### [facility] ([id number]) [address] [address] WBC (Bld) [#/Vol] 9.0 10*3/uL Normal 4.0-11.0 [facility] Comment on above: Performed By: #### Jacqueline UNDERWOOD, THREAD MILLING MACHINE SET UP OPERATOR #### [facility] ([id number]) [address] [address] CREATININEon 04-24-2024 Creatinine [Mass/Vol] 0.72 mg/dL Normal 0.40-1.00 [facility] Comment on above: Result Comment: METH OD TRACEABLE TO IDMS STANDARD Performed By: #### Jacqueline UNDERWOOD, THREAD MILLING MACHINE SET UP OPERATOR #### [facility] ([id number]) [address] [address] eGFR (CKD-EPI) NON-RACE DEPENDENT >90 Normal >59 [facility] Comment on above: Result Comment: Reported eGFR is based on the CKD-EPI 2020 equation that does not use a race coefficient. Performed By: #### C KJ, THREAD MILLING MACHINE SET UP OPERATOR #### [facility] ([id number]) [address] [address] [place] [address] COMPLETE BLOOD COUNTon 04-11 Erythrocyte distribution width (RBC) [Ratio] 16.9 % High 11.5-15.0 [facility] Comment on above: Performed By: #### C BC, THREAD MILLING MACHINE SET UP OPERATOR #### [facility] ([id number]) [address] [address] [place] [address] Hematocrit (Bld) [Volume fraction] 41.0 % Normal 35-47 [facility] Comment on above: Performed By: #### C KJ, THREAD MILLING MACHINE SET UP OPERATOR #### [facility] ([id number]) [address] [address] [place] [address] Hemoglobin (Bld) [Mass/Vol] 13.8 g/dL Normal 11.7-15.5 [facility] Comment on above: Performed By: #### C KJ, THREAD MILLING MACHINE SET UP OPERATOR #### [facility] ([id number]) [address] [address] [place] [address] MCH (RBC) [Entitic mass] 32.3 pg Normal 27-34 [facility] Comment on above: Performed By: #### C KJ, THREAD MILLING MACHINE SET UP OPERATOR #### [facility] ([id number]) [address] [address] [place] [address] MCHC (RBC) [Mass/Vol] 33.5 g/dL Normal 32-36 [facility] Comment on above: Performed By: #### C KJ, THREAD MILLING MACHINE SET UP OPERATOR #### [facility] ([id number]) [address] [address] [place] [address] MCV (RBC) [Entitic vol] 96 fL Normal 80-100 [facility] Comment on above: Performed By: #### C KJ, THREAD MILLING MACHINE SET UP OPERATOR #### [facility] ([id number]) [address] [address] Platelet mean volume (Bld) [Entitic vol] 9.1 fL Normal 7-12 [facility] Comment on above: Performed By: #### C KJ, THREAD MILLING MACHINE SET UP OPERATOR #### [facility] ([id number]) [address] [address] Platelets (Bld) [#/Vol] 291 10*3/uL Normal 150-450 [facility] Comment on above: Performed By: #### C KJ, THREAD MILLING MACHINE SET UP OPERATOR #### [facility] ([id number]) [address] [address] RBC COUNT 4.27 X10E12/L Normal 3.80-5.20 [facility] Comment on above: Performed By: #### C KJ, THREAD MILLING MACHINE SET UP OPERATOR #### [facility] ([id number]) [address] [address] WBC (Bld) [#/Vol] 8.9 10*3/uL Normal 4.0-11.0 [facility] Comment on above: Performed By: #### Jacqueline UNDERWOOD, THREAD MILLING MACHINE SET UP OPERATOR #### [facility] ([id number]) [address] [address] CREATININEon 04-11-2024 Creatinine [Mass/Vol] 0.73 mg/dL Normal 0.40-1.00 [facility] Comment on above: Result Comment: METH OD TRACEABLE TO IDMS STANDARD Performed By: #### C KJ, THREAD MILLING MACHINE SET UP OPERATOR #### [facility] ([id number]) [address] [address] eGFR (CKD-EPI) NON-RACE DEPENDENT >90 Normal >59 [facility] Comment on above: Result Comment: Reported eGFR is based on the CKD-EPI 2020 equation that does not use a race coefficient. Performed By: #### C KJ, THREAD MILLING MACHINE SET UP OPERATOR #### [facility] ([id number]) [address] [place] [address] ASPIRATE CULTUREon Bacteria identified Aer cx Nom [...] <=1 F PIPERACIL/TAZOBACTAM S <=4 F Susceptible [facility] Comment on above: Performed By: #### 5 97-5 #### [facility] ([id number]) [address] [address] COMPLETE BLOOD COUNTon 04-04 Erythrocyte distribution width (RBC) [Ratio] 16.6 % High 11.5-15.0 [facility] Comment on above: Performed By: #### Jacqueline ARAUJO [facility], 1988-09, 51456-6 #### [facility] ([id number]) [address] [address] Hematocrit (Bld) [Volume fraction] 37.5 % Normal 35-47 [facility] Comment on above: Performed By: #### Jacqueline ARAUJO CMP, 1988-09, 55596-8 #### [facility] ([id number]) [address] [address] Hemoglobin (Bld) [Mass/Vol] 12.7 g/dL Normal 11.7-15.5 [facility] Comment on above: Performed By: #### Jacqueline ARAUJO CMP, 1988-09, 19000-6 #### [facility] ([id number]) [address] [address] [place] [address] MCH (RBC) [Entitic mass] 31.6 pg Normal 27-34 [facility] Comment on above: Performed By: #### Jacqueline ARAUJO CMP, 1987-09, 62388-6 #### [facility] ([id number]) [address], [address] [place] [address] MCHC (RBC) [Mass/Vol] 33.8 g/dL Normal 32-36 [facility] Comment on above: Performed By: #### Jacqueline ARAUJO [facility], 1988-09, 35061-0 #### [facility] ([id number]) [address], [address] [place] [address] MCV (RBC) [Entitic vol] 94 fL Normal 80-100 [facility] Comment on above: Performed By: #### Jacqueline ARAUJO [facility], 1988-09, 89392-9 #### [facility] ([id number]) [address], [address] [place] [address] Platelet mean volume (Bld) [Entitic vol] 8.9 fL Normal 7-12 [facility] Comment on above: Performed By: #### Jacqueline ARAUJO [facility], 1988-09, 86615-2 #### [facility] ([id number]) [address], [address] [place] [address] Platelets (Bld) [#/Vol] 230 10*3/uL Normal 150-450 [facility] Comment on above: Performed By: #### Jacqueline ARAUJO CMP, 1988-09, 85303-9 #### [facility] ([id number]) [address] [place] [address] RBC COUNT 4.01 X10E12/L Normal 3.80-5.20 [facility] Comment on above: Performed By: #### Jacqueline ARAUJO CMP, 1987-09, 62266-3 #### [facility] ([id number]) [address], [address] [place] [address] WBC (Bld) [#/Vol] 9.1 10*3/uL Normal 4.0-11.0 [facility] Comment on above: Performed By: #### C ARANZA ARAUJO, 1988-09, 95244-9 #### [facility] ([id number]) [address] [address] CREATININEon 04-04-2024 Creatinine [Mass/Vol] 0.60 mg/dL Normal 0.40-1.00 [facility] Comment on above: Result Comment: METH OD TRACEABLE TO IDMS STANDARD Performed By: #### C ARANZA ARAUJO, 1988-09, 30329-6 #### [facility] ([id number]) [address] [address] eGFR (CKD-EPI) NON-RACE DEPENDENT >90 Normal >59 [facility] Comment on above: Result Comment: Reported eGFR is based on the CKD-EPI 2020 equation that does not use a race coefficient. Performed By: #### C ARANZA ARAUJO, 82434-5 #### [facility] ([id number]) [address] [address] COMPLETE BLOOD COUNTon 03-27 Erythrocyte distribution width (RBC) [Ratio] 17.2 % High 11.5-15.0 [facility] Comment on above: Performed By: #### C ARANZA ARAUJO, 38918-8 #### [facility] ([id number]) [address] [address] Hematocrit (Bld) [Volume fraction] 40.0 % Normal 35-47 [facility] Comment on above: Performed By: #### C ARANZA ARAUJO, 86203-5 #### [facility] ([id number]) [address] [address] Hemoglobin (Bld) [Mass/Vol] 13.5 g/dL Normal 11.7-15.5 [facility] Comment on above: Performed By: #### C VAN, CMP, 1987-09, 05295-2 #### [facility] ([id number]) [address], [address] [place] [address] MCH (RBC) [Entitic mass] 31.7 pg Normal 27-34 [facility] Comment on above: Performed By: #### Jacqueline ARAUJO [facility], 1987-09, 31632-1 #### [facility] ([id number]) [address], [address] [place] [address] MCHC (RBC) [Mass/Vol] 33.7 g/dL Normal 32-36 [facility] Comment on above: Performed By: #### Jacqueline ARAUJO CMP, 1987-09, 36828-9 #### [facility] ([id number]) [address], [address] [place] [address] MCV (RBC) [Entitic vol] 94 fL Normal 80-100 [facility] Comment on above: Performed By: #### Jacqueline ARAUJO [facility], 1987-09, 53160-2 #### [facility] ([id number]) [address], [address] [place] [address] Platelet mean volume (Bld) [Entitic vol] 8.5 fL Normal 7-12 [facility] Comment on above: Performed By: #### Jacqueline ARAUJO CMP, 1987-09, 84694-1 #### [facility] ([id number]) [address], [address] [place] [address] Platelets (Bld) [#/Vol] 332 10*3/uL Normal 150-450 [facility] Comment on above: Performed By: #### Jacqueline ARAUJO CMP, 1987-09, 45277-1 #### [facility] ([id number]) [address], [address] [place] [address] RBC COUNT 4.26 X10E12/L Normal 3.80-5.20 [facility] Comment on above: Performed By: #### C ARANZA ARAUJO, 1988-09, 90084-4 #### [facility] ([id number]) [address] [address] WBC (Bld) [#/Vol] 10.4 10*3/uL Normal 4.0-11.0 [facility] Comment on above: Performed By: #### C ARANZA ARAUJO, 1988-09, 69380-5 #### [facility] ([id number]) [address] [address] CREATININEon 03-27-2024 Creatinine [Mass/Vol] 0.69 mg/dL Normal 0.40-1.00 [facility] Comment on above: Result Comment: METH OD TRACEABLE TO IDMS STANDARD Performed By: #### C ARANZA ARAUJO, 1988-09, 55479-7 #### [facility] ([id number]) [address], [address] [address] eGFR (CKD-EPI) NON-RACE DEPENDENT >90 Normal >59 [facility] Comment on above: Result Comment: Reported eGFR is based on the CKD-EPI 2020 equation that does not use a race coefficient. Performed By: #### C ARANZA ARAUJO, 1988-09, 22395-8 #### [facility] ([id number]) [address] [address] COMPLETE BLOOD COUNTon 03-20 Erythrocyte distribution width (RBC) [Ratio] 19.0 % High 11.5-15.0 [facility] Comment on above: Performed By: #### C BC, THREAD MILLING MACHINE SET UP OPERATOR #### [facility] ([id number]) [address] [address] Hematocrit (Bld) [Volume fraction] 37.9 % Normal 35-47 [facility] Comment on above: Performed By: #### C BC, THREAD MILLING MACHINE SET UP OPERATOR #### [facility] ([id number]) [address], [address] [place] [address] Hemoglobin (Bld) [Mass/Vol] 12.6 g/dL Normal 11.7-15.5 [facility] Comment on above: Performed By: #### C KJ, THREAD MILLING MACHINE SET UP OPERATOR #### [facility] ([id number]) [address], [address] [place] [address] MCH (RBC) [Entitic mass] 31.8 pg Normal 27-34 [facility] Comment on above: Performed By: #### C KJ, THREAD MILLING MACHINE SET UP OPERATOR #### [facility] ([id number]) [address], [address] [place] [address] MCHC (RBC) [Mass/Vol] 33.2 g/dL Normal 32-36 [facility] Comment on above: Performed By: #### C KJ, THREAD MILLING MACHINE SET UP OPERATOR #### [facility] ([id number]) [address], [address] [place] [address] MCV (RBC) [Entitic vol] 96 fL Normal 80-100 [facility] Comment on above: Performed By: #### Jacqueline UNDERWOOD, THREAD MILLING MACHINE SET UP OPERATOR #### [facility] ([id number]) [address], [address] [place] [address] Platelet mean volume (Bld) [Entitic vol] 8.4 fL Normal 7-12 [facility] Comment on above: Performed By: #### Jacqueline UNDERWOOD, THREAD MILLING MACHINE SET UP OPERATOR #### [facility] ([id number]) [address], [address] [place] [address] Platelets (Bld) [#/Vol] 343 10*3/uL Normal 150-450 [facility] Comment on above: Performed By: #### C KJ, THREAD MILLING MACHINE SET UP OPERATOR #### [facility] ([id number]) [address], [address] [place] [address] RBC COUNT 3.95 X10E12/L Normal 3.80-5.20 [facility] Comment on above: Performed By: #### C KJ, THREAD MILLING MACHINE SET UP OPERATOR #### [facility] ([id number]) [address] [address] WBC (Bld) [#/Vol] 7.6 10*3/uL Normal 4.0-11.0 [facility] Comment on above: Performed By: #### C KJ, THREAD MILLING MACHINE SET UP OPERATOR #### [facility] ([id number]) [address] [address] CREATININEon 03-20-2024 Creatinine [Mass/Vol] 0.70 mg/dL Normal 0.40-1.00 [facility] Comment on above: Result Comment: METH OD TRACEABLE TO IDMS STANDARD Performed By: #### C KJ, THREAD MILLING MACHINE SET UP OPERATOR #### [facility] ([id number]) [address] [address] eGFR (CKD-EPI) NON-RACE DEPENDENT >90 Normal >59 [facility] Comment on above: Result Comment: Reported eGFR is based on the CKD-EPI 2020 equation that does not use a race coefficient. Performed By: #### C KJ, THREAD MILLING MACHINE SET UP OPERATOR #### [facility] ([id number]) [address] [address] CBC AND AUTO DIFFon 03-16-20 24 ABSOLUTE BASOPHIL 0.0 X10E9/L Normal 0.0-0.2 [facility] Comment on above: Performed By: #### C ARANZA ARAUJO, 1988-09 #### [facility] ([id number]) [address] [address] ABSOLUTE NEUTROPHIL 5.5 X10E9/L Normal 1.5-6.6 [facility] Comment on above: Performed By: #### C VAN CMP, 1987-09 #### [facility] ([id number]) [address] [address] Basophils/100 WBC (Bld) 0.4 % Normal [facility] Comment on above: Performed By: #### Jacqueline ARAUJO [facility], 1987-09 #### [facility] ([id number]) [address] [address] [place] [address] Eosinophils (Bld) [#/Vol] 0.1 10*3/uL Normal 0.0-0.4 [facility] Comment on above: Performed By: #### Jacqueline ARAUJO CMP, 1987-09 #### [facility] ([id number]) [address], [facility] [address] [place] [address] Eosinophils/100 WBC (Bld) 1.9 % Normal [facility] Comment on above: Performed By: #### Jacqueline ARAUJO CMP, 1987-09 #### [facility] ([id number]) [address], [facility] [address] [place] [address] Erythrocyte distribution width (RBC) [Ratio] 18.1 % High 11.5-15.0 [facility] Comment on above: Performed By: #### Jacqueline ARAUJO CMP, 1987-09 #### [facility] ([id number]) [address], [facility] [address] [place] [address] Hematocrit (Bld) [Volume fraction] 39.2 % Normal 35-47 [facility] Comment on above: Performed By: #### Jacqueline ARAUJO CMP, 1987-09 #### [facility] ([id number]) [address] [place] [address] Hemoglobin (Bld) [Mass/Vol] 13.4 g/dL Normal 11.7-15.5 [facility] Comment on above: Performed By: #### Jacqueline ARAUJO CMP, 1987-09 #### [facility] ([id number]) [address] [address] [place] [address] Lymphocytes (Bld) [#/Vol] 1.7 10*3/uL Normal 1.0-3.5 [facility] Comment on above: Performed By: #### Jacqueline ARAUJO CMP, 1987-09 #### [facility] ([id number]) [address], [address] [place] [address] Lymphocytes/100 WBC (Bld) 22.1 % Normal [facility] Comment on above: Performed By: #### Jacqueline ARAUJO CMP, 1987-09 #### [facility] ([id number]) [address] [place] [address] MCH (RBC) [Entitic mass] 32.2 pg Normal 27-34 [facility] Comment on above: Performed By: #### Jacqueline ARAUJO CMP, 1987-09 #### [facility] ([id number]) [address], [facility] [address] [place] [address] MCHC (RBC) [Mass/Vol] 34.2 g/dL Normal 32-36 [facility] Comment on above: Performed By: #### Jacqueline ARAUJO CMP, 1987-09 #### [facility] ([id number]) [address], [facility] [address] [place] [address] MCV (RBC) [Entitic vol] 94 fL Normal 80-100 [facility] Comment on above: Performed By: #### Jacqueline ARAUJO [facility], 1987-09 #### [facility] ([id number]) [address], [address] [place] [address] Monocytes (Bld) [#/Vol] 0.5 10*3/uL Normal 0-0.9 [facility] Comment on above: Performed By: #### Jacqueline ARAUJO CMP, 1987-09 #### [facility] ([id number]) [address], [address] [place] [address] Monocytes/100 WBC (Bld) 6.5 % Normal [facility] Comment on above: Performed By: #### Jacqueline ARAUJO CMP, 1987-09 #### [facility] ([id number]) [address], [address] [place] [address] Neutrophils/100 WBC (Bld) 69.1 % Normal [facility] Comment on above: Performed By: #### Jacqueline ARAUJO CMP, 1987-09 #### [facility] ([id number]) [address], [facility] [address] [place] [address] Platelet mean volume (Bld) [Entitic vol] 8.1 fL Normal 7-12 [facility] Comment on above: Performed By: #### Jacqueline ARAUJO CMP, 1987-09 #### [facility] ([id number]) [address], [facility] [address] [place] [address] Platelets (Bld) [#/Vol] 358 10*3/uL Normal 150-450 [facility] Comment on above: Performed By: #### Jacqueline ARAUJO CMP, 1987-09 #### [facility] ([id number]) [address] [place] [address] RBC COUNT 4.17 X10E12/L Normal 3.80-5.20 [facility] Comment on above: Performed By: #### Jacqueline ARAUJO CMP, 1987-09 #### [facility] ([id number]) [address], [facility] [address] [place] [address] WBC (Bld) [#/Vol] 7.9 10*3/uL Normal 4.0-11.0 [facility] Comment on above: Performed By: #### Jacqueline ARAUJO CMP, 1987-09 #### [facility] ([id number]) [address], [address] [place] [address] COMPREHENSIVE METABOLIC PANE Alexandru 03-16-2024 Albumin [Mass/Vol] 3.4 g/dL Normal 3.2-5.3 [facility] Comment on above: Performed By: #### Jacqueline ARAUJO CMP, 1987-09 #### [facility] ([id number]) [address], [address] [place] [address] ALP [Catalytic activity/Vol] 52 U/L Normal 39-130 [facility] Comment on above: Performed By: #### Jacqueline ARAUJO CMP, 1987-09 #### [facility] ([id number]) [address], [address] [place] [address] ALT [Catalytic activity/Vol] 12 U/L Normal 0-31 [facility] Comment on above: Performed By: #### Jacqueline ARAUJO CMP, 1987-09 #### [facility] ([id number]) [address], [address] [place] [address] Anion gap [Moles/Vol] 11 mmol/L Normal 5-15 [facility] Comment on above: Performed By: #### Jacqueline ARAUJO CMP, 1987-09 #### [facility] ([id number]) [address], [address] [place] [address] AST [Catalytic activity/Vol] 17 U/L Normal 0-41 [facility] Comment on above: Performed By: #### Jacqueline ARAUJO CMP, 1987-09 #### [facility] ([id number]) [address], [address] [place] [address] Bilirubin [Mass/Vol] 0.4 mg/dL Normal 0.3-1.2 [facility] Comment on above: Performed By: #### Jacqueline ARAUJO CMP, 1987-09 #### [facility] ([id number]) [address], [address] [place] [address] Calcium [Mass/Vol] 9.7 mg/dL Normal 8.5-10.5 [facility] Comment on above: Performed By: #### Jacqueline ARAUJO CMP, 1987-09 #### [facility] ([id number]) [address], [address] [place] [address] Chloride [Moles/Vol] 109 mmol/L Normal 98-109 [facility] Comment on above: Performed By: #### Jacqueline ARAUJO CMP, 1987-09 #### [facility] ([id number]) [address], [address] [place] [address] CO2 [Moles/Vol] 20 mmol/L Low 22-32 [facility] Comment on above: Performed By: #### C ARANZA ARAUJO, 1988-09 #### [facility] ([id number]) [address], [facility] [address] [place] [address] Creatinine [Mass/Vol] 0.75 mg/dL Normal 0.40-1.00 [facility] [place] Comment on above: Result Comment: METH OD TRACEABLE TO IDMS STANDARD Performed By: #### C ARANZA ARAUJO, 1988-09 #### [facility] ([id number]) [address] [place] [address] eGFR (CKD-EPI) NON-RACE DEPENDENT >90 Normal >59 [facility] Comment on above: Result Comment: Reported eGFR is based on the CKD-EPI 2020 equation that does not use a race coefficient. Performed By: #### C ARANZA ARAUJO, 1988-09 #### [facility] ([id number]) [address] [place] [address] Glucose [Mass/Vol] 88 mg/dL Normal 65-99 [facility] Comment on above: Performed By: #### Jacqueline ARAUJO CMP, 1988-09 #### [facility] ([id number]) [address] [address] [place] [address] Potassium [Moles/Vol] 3.9 mmol/L Normal 3.5-5.0 [facility] Comment on above: Performed By: #### Jacqueline ARAUJO CMP, 1988-09 #### [facility] ([id number]) [address] [place] [address] Protein [Mass/Vol] 6.4 g/dL Normal 6.0-8.0 [facility] Comment on above: Performed By: #### Jacqueline ARAUJO CMP, 1988-09 #### [facility] ([id number]) [address], [address] [place] [address] Sodium [Moles/Vol] 140 mmol/L Normal 134-146 [facility] Comment on above: Performed By: #### Jacqueline ARAUJO [facility], 1988-09 #### [facility] ([id number]) [address], [address] [place] [address] Urea nitrogen [Mass/Vol] 9 mg/dL Normal 5-23 [facility] Comment on above: Performed By: #### Jacqueline ARAUJO [facility], 1987-09 #### [facility] ([id number]) [address], [facility] [address] [place] [address] CRP [Mass/Vol]on 03-16-2024 C REACTIVE PROTEIN 0.6 mg/dL Normal 0.000-0.744 [facility] Comment on above: Performed By: #### Jacqueline ARAUJO [facility], 1987-09 #### [facility] ([id number]) [address], [facility] [address] [place] [address] BLOOD CULTUREon 03-13-2024 Bacteria identified Aer cx Nom (Bld) CULTURE RESULTS NO GROWTH 5 DAYS Normal [facility] Bacteria identified Aer cx Nom (Bld) CULTURE RESULTS NO GROWTH 5 DAYS Normal [facility] CBC AND AUTO DIFFon 03-13-20 ABSOLUTE BASOPHIL 0.0 X10E9/L Normal 0.0-0.2 [facility] Comment on above: Performed By: #### Jacqueline ARAUJO CMP, 1988-09, 41688-8 #### [facility] ([id number]) [address], [address] [place] [address] ABSOLUTE NEUTROPHIL 5.4 X10E9/L Normal 1.5-6.6 [facility] Comment on above: Performed By: #### Jacqueline ARAUJO CMP, 1988-09, 19008-2 #### [facility] ([id number]) [address], [address] [place] [address] Basophils/100 WBC (Bld) 0.4 % Normal [facility] Comment on above: Performed By: #### Jacqueline ARAUJO [facility], 1988-09, 65324-8 #### [facility] ([id number]) [address], [address] [place] [address] Eosinophils (Bld) [#/Vol] 0.1 10*3/uL Normal 0.0-0.4 [facility] Comment on above: Performed By: #### Jacqueline ARAUJO [facility], 1988-09, 52695-4 #### [facility] ([id number]) [address], [address] [place] [address] Eosinophils/100 WBC (Bld) 1.6 % Normal [facility] Comment on above: Performed By: #### Jacqueline ARAUJO [facility], 1988-09, 36410-3 #### [facility] ([id number]) [address], [address] [place] [address] Erythrocyte distribution width (RBC) [Ratio] 18.4 % High 11.5-15.0 [facility] Comment on above: Performed By: #### Jacqueline ARAUJO [facility], 1988-09, 30428-0 #### [facility] ([id number]) [address], [facility] [address] [place] [address] Hematocrit (Bld) [Volume fraction] 39.0 % Normal 35-47 [facility] Comment on above: Performed By: #### Jacqueline ARAUJO [facility], 17990-3 #### [facility] ([id number]) [address], [facility] [address] [place] [address] Hemoglobin (Bld) [Mass/Vol] 13.7 g/dL Normal 11.7-15.5 [facility] Comment on above: Performed By: #### Jacqueline ARAUJO [facility], 64727-6 #### [facility] ([id number]) [address] [address] [place] [address] Lymphocytes (Bld) [#/Vol] 1.9 10*3/uL Normal 1.0-3.5 [facility] Comment on above: Performed By: #### Jacqueline ARAUJO CMP, 1988-09, 28529-4 #### [facility] ([id number]) [address] [address] [place] [address] Lymphocytes/100 WBC (Bld) 24.0 % Normal [facility] Comment on above: Performed By: #### Jacqueline ARAUJO [facility], 1988-09, 43857-8 #### [facility] ([id number]) [address] [address] [place] [address] MCH (RBC) [Entitic mass] 32.5 pg Normal 27-34 [facility] Comment on above: Performed By: #### Jacqueline ARAUJO [facility], 1988-09, 21652-8 #### [facility] ([id number]) [address] [address] [place] [address] MCHC (RBC) [Mass/Vol] 35.0 g/dL Normal 32-36 [facility] Comment on above: Performed By: #### Jacqueline ARAUJO CMP, 1988-09, 52725-0 #### [facility] ([id number]) [address] [address] [place] [address] MCV (RBC) [Entitic vol] 93 fL Normal 80-100 [facility] Comment on above: Performed By: #### Jacqueline ARAUJO CMP, 1988-09, 69571-0 #### [facility] ([id number]) [address] [address] [place] [address] Monocytes (Bld) [#/Vol] 0.4 10*3/uL Normal 0-0.9 [facility] Comment on above: Performed By: #### Jacqueline ARAUJO CMP, 1988-09, 76820-1 #### [facility] ([id number]) [address], [address] [place] [address] Monocytes/100 WBC (Bld) 4.7 % Normal [facility] Comment on above: Performed By: #### Jacqueline ARAUJO CMP, 1988-09, 23352-8 #### [facility] ([id number]) [address], [address] [place] [address] Neutrophils/100 WBC (Bld) 69.3 % Normal [facility] Comment on above: Performed By: #### Jacqueline ARAUJO [facility], 1988-09, 25849-4 #### [facility] ([id number]) [address], [address] [place] [address] Platelet mean volume (Bld) [Entitic vol] 7.9 fL Normal 7-12 [facility] Comment on above: Performed By: #### Jacqueline ARAUJO CMP, 1988-09, 68606-7 #### [facility] ([id number]) [address], [address] [place] [address] Platelets (Bld) [#/Vol] 376 10*3/uL Normal 150-450 [facility] Comment on above: Performed By: #### Jacqueline ARAUJO CMP, 1988-09, 66353-3 #### [facility] ([id number]) [address], [address] [place] [address] RBC COUNT 4.20 X10E12/L Normal 3.80-5.20 [facility] Comment on above: Performed By: #### Jacqueline ARAUJO CMP, 1988-09, 55572-9 #### [facility] ([id number]) [address], [address] [place] [address] WBC (Bld) [#/Vol] 7.8 10*3/uL Normal 4.0-11.0 [facility] Comment on above: Performed By: #### Jacqueline ARAUJO CMP, 1988-09, 48041-1 #### [facility] ([id number]) [address], [address] [place] [address] COMPREHENSIVE METABOLIC PANE Alexandru 03-13-2024 Albumin [Mass/Vol] 3.4 g/dL Normal 3.2-5.3 [facility] Comment on above: Performed By: #### C VAN [facility], 1988-09, 18328-2 #### [facility] ([id number]) [address], [address] [place] [address] ALP [Catalytic activity/Vol] 57 U/L Normal 39-130 [facility] Comment on above: Performed By: #### C [facility]AN [facility], 1987-09, 16291-6 #### [facility] ([id number]) [address], [address] [place] [address] ALT [Catalytic activity/Vol] 14 U/L Normal 0-31 [facility] Comment on above: Performed By: #### C [facility], 1987-09, 95868-2 #### [facility] ([id number]) [address], [address] [place] [address] Anion gap [Moles/Vol] 8 mmol/L Normal 5-15 [facility] Comment on above: Performed By: #### C [facility], 1987-09, 13709-6 #### [facility] ([id number]) [address], [address] [place] [address] AST [Catalytic activity/Vol] 19 U/L Normal 0-41 [facility] Comment on above: Performed By: #### C [facility], 86533-1 #### [facility] ([id number]) [address], [address] [place] [address] Bilirubin [Mass/Vol] 0.4 mg/dL Normal 0.3-1.2 [facility] Comment on above: Performed By: #### C VAN CMP, 1987-09, 44686-7 #### [facility] ([id number]) [address], [address] [place] [address] Calcium [Mass/Vol] 9.3 mg/dL Normal 8.5-10.5 [facility] Comment on above: Performed By: #### C [facility], 1987-09, 67687-0 #### [facility] ([id number]) [address], [address] [place] [address] Chloride [Moles/Vol] 105 mmol/L Normal 98-109 [facility] Comment on above: Performed By: #### C [facility], 1987-09, 63542-8 #### [facility] ([id number]) [address], [address] [place] [address] CO2 [Moles/Vol] 28 mmol/L Normal 22-32 [facility] Comment on above: Performed By: #### C [facility], 1987-09, 22798-9 #### [facility] ([id number]) [address], [facility] [address] [place] [address] Creatinine [Mass/Vol] 0.82 mg/dL Normal 0.40-1.00 [facility] Comment on above: Result Comment: METH OD TRACEABLE TO IDMS STANDARD Performed By: #### C [facility], 1987-09, 75852-6 #### [facility] ([id number]) [address], [address] [place] [address] GFR/1.73 sq M.predicted among non-blacks MDRD (S/P/Bld) [Vol rate/Area] 84 mL/min/{1.73_m2} Normal >59 [facility] Comment on above: Result Comment: Reported eGFR is based on the CKD-EPI 2020 equation that does not use a race coefficient. Performed By: #### [facility], 1987-09, 17990-8 #### [facility] ([id number]) [address], [address] [place] [address] Glucose [Mass/Vol] 97 mg/dL Normal 65-99 [facility] Comment on above: Performed By: #### [facility], 1987-09, 49326-7 #### [facility] ([id number]) [address], [address] [place] [address] Potassium [Moles/Vol] 3.1 mmol/L Low 3.5-5.0 [facility] Comment on above: Performed By: #### [facility], 80137-6 #### [facility] ([id number]) [address], [address] [place] [address] Protein [Mass/Vol] 6.3 g/dL Normal 6.0-8.0 [facility] Comment on above: Performed By: #### Jacqueline ARAUJO [facility], 64908-3 #### [facility] ([id number]) [address], [address] [place] [address] Sodium [Moles/Vol] 141 mmol/L Normal 134-146 [facility] Comment on above: Performed By: #### Jacqueline ARAUJO CMP, 20820-0 #### [facility] ([id number]) [address], [address] [place] [address] Urea nitrogen [Mass/Vol] 8 mg/dL Normal 5-23 [facility] Comment on above: Performed By: #### C [facility], 80588-2 #### [facility] ([id number]) [address], [address] [place] [address] CRP [Mass/Vol]on 03-13-2024 C REACTIVE PROTEIN 0.7 mg/dL Normal 0.000-0.744 [facility] Comment on above: Performed By: #### Jacqueline ARAUJO CMP, 94366-7 #### [facility] ([id number]) [address], [address] [place] [address] ESR Photometric method (Bld) [Velocity]on 03-13-2024 ESR, ERYTHROCYTE SEDIMENTATION RATE 39 mm/h High 0-30 [facility] Comment on above: Performed By: #### C BCA, CMP, 1987-09, 11749-2 #### [facility] ([id number]) [address], [address] [place] [address] ASPIRATE CULTUREon Bacteria identified Aer cx Nom [...] <=1 F PIPERACIL/TAZOBACTAM S <=4 F Susceptible [facility] Comment on above: Performed By: #### 5 97-5 #### [facility] ([id number]) [address] [place] [address] AND DIFFon 2023 BODY FLUID COMMENT Interpreta tion--- ----- Normal [facility] Comment on above: Result Comment: Refe rence values for this fluid type are undefined, as fluid accumulation is considered abnormal. Performed By: #### B FCT #### [facility] ([id number]) [address], [address] [place] [address] FLUID CLARITY CLOUDY Normal [facility] Comment on above: Performed By: #### B FCT #### [facility] ([id number]) [address], [address] [place] [address] FLUID COLOR HONG Normal [facility] Comment on above: Performed By: #### B FCT #### [facility] ([id number]) [address], [address] [place] [address] FLUID LYMPHOCYTE 5 % Normal [facility] Comment on above: Performed By: #### B FCT #### [facility] ([id number]) [address], [address] [place] [address] FLUID NEUTROPHILS 75 % Normal [facility] Comment on above: Performed By: #### B FCT #### [facility] ([id number]) [address], [address] [place] [address] [place] [address] /uL Normal [facility] Comment on above: Performed By: #### B FCT #### [facility] ([id number]) [address] [place] [address] FLUID SPECIMEN TYPE ASPIRATE Normal [facility] Comment on above: Result Comment: ABDO MISAEL PUMP POCKET Performed By: #### B FCT #### [facility] ([id number]) [address] [place] [address] MACROPHAGES 20 % Normal [facility] Comment on above: Performed By: #### B FCT #### [facility] ([id number]) [address] [place] [address] 4888 /uL Normal [facility] Comment on above: Performed By: #### B FCT #### [facility] ([id number]) [address], [address] [place] [address] Infectious Disease Office/Cl inic Noteon 11-10-2023 Infectious Disease Office/Clinic Note Assessment/Plan 1. Postoperative wound infection Plan: Unfortunately there is no other good oral options for coverage of Pseudomonas. She is advised to stop taking doxycycline as this will help her symptoms. I did call Dr. Montes his PA Hammad called back. She advised me to send patient back to [place]. This is where she had her surgery done. She may need to MRI possible washout. This radio script writer did call [place] talk to charge nurse Dagmar gave her [...] by Dr. Saint Gregory at [facility]. She was discharged home on the . She was discharged on cephalexin for 10 days. She was taken back to surgery on October 11 due to persistent drainage and wound dehiscence. She had a fluid collection which was most consistent with seroma/infection . The surgery was done in [place]. Cultures grew Pseudomonas and she was discharged [...] data Procedure/Surgical History Neck Surgery Stomach Pain [facility] (09/02/2023) incision & drainage (10/12/2023) Medications cyclobenzaprine 10 mg oral tablet, 45 EA, 0 Refill(s), TAKE 1 TABLET BY MOUTH THREE TIMES DAILY NEEDED FOR MUSCLE SPASMS DULoxetine 60 mg oral delayed release capsule, 90 EA, 0 Refill(s), TAKE 1 CAPSULE BY MOUTH EVERY DAY ibuprofen 800 mg oral tablet, 270 EA, 0 Refill(s) Potassium Chloride ( (more content not included)... Normal [facility] .eGFRon 10-26-2023 GFR/1.73 sq M.predicted MDRD (S/P/Bld) [Vol rate/Area] mL/min/{1.73_m2} Normal >=60 [facility] Comment on above: Order Comment: Order added by Discern rule Result Comment: [facility] have implemented the eGFR [...] years Performed By: #### E GFR #### [facility] [address] [place] [address] Basic Metabolic Profileon Anion gap [Moles/Vol] 10 mmol/L Normal -12 [facility] Comment on above: Performed By: #### C [id number] #### [facility] [address] [place] [address] Calcium [Mass/Vol] 9.4 mg/dL Normal 8.5-10.3 [facility] Comment on above: Performed By: #### C D:[id number] #### [facility] [address] [place] [address] Chloride [Moles/Vol] 101 mmol/L Normal 98-110 [facility] Comment on above: Performed By: #### C D:[id number] #### [address] [address] CO2 [Moles/Vol] 26 mmol/L Normal 22-32 [facility] Comment on above: Performed By: #### C D:[id number] #### [address] [address] Creatinine [Mass/Vol] 0.81 mg/dL Normal 0.44-1.03 [facility] Comment on above: Performed By: #### C [id number] #### [address] [address] Glucose [Mass/Vol] 82 mg/dL Normal 70-99 [facility] Comment on above: Performed By: #### C [id number] #### [address] [address] Potassium [Moles/Vol] 2.7 mmol/L Low 3.4-4.8 [facility] Comment on above: Performed By: #### C D:[id number] #### [address] [address] Sodium [Moles/Vol] 137 mmol/L Normal 133-142 [facility] Comment on above: Performed By: #### C D:[id number] #### [address] [address] Urea nitrogen [Mass/Vol] 15 mg/dL Normal 8-26 [facility] Comment on above: Performed By: #### C D:[id number] #### [address] [address] Urea nitrogen/Creatinin e [Mass ratio] 18.5 mg/mg Normal 10.0-20.0 [facility] Comment on above: Performed By: #### C D:[id number] #### [address] [address] CBC w/ Diffon 10-26-2023 Erythrocyte distribution width (RBC) [Ratio] 15.2 % High 11.6-14.8 [facility] Comment on above: Performed By: #### C BC #### [place] [id number] Hematocrit (Bld) [Volume fraction] 38.9 % Normal 36.0-46.0 [facility] Comment on above: Performed By: #### C BC #### [place] [id number] Hemoglobin (Bld) [Mass/Vol] 12.9 g/dL Normal 12.0-16.0 [facility] Comment on above: Performed By: #### C BC #### [place] [id number] MCH (RBC) [Entitic mass] 31.5 pg Normal 27.0-35.0 [facility] Comment on above: Performed By: #### C BC #### [place] [id number] MCHC 33.1 % Normal 31.0-37.0 [facility] Comment on above: Performed By: #### C BC #### [place] [id number] MCV (RBC) [Entitic vol] 95.0 fL Normal 80.0-100.0 [facility] Comment on above: Performed By: #### C BC #### [place] [id number] Platelet 367 x10*3/mcL Normal 150-450 [facility] Comment on above: Performed By: #### C BC #### [address] [address] Platelet mean volume (Bld) [Entitic vol] 7.7 fL Normal 6.7-10.6 [facility] Comment on above: Performed By: #### C BC #### [address] [address] RBC 4.10 x10*6/mcL Normal 3.80-5.20 [facility] Comment on above: Performed By: #### C BC #### [address] [address] WBC 12.3 x10*3/mcL High 4.5-11.0 [facility] Comment on above: Performed By: #### C BC #### [address] [address] CRPon 10-26-2023 CRP 2.71 mg/dL High 0.00-0.75 [facility] Comment on above: Result Comment: CRP measurement is useful for assessment of non-specific INFLAMMATORY RESPONSE to infection or injury AND is a sensitive MARKER of ACUTE INFLAMMATION including CARDIAC RISK ASSESSMENT. CARDIAC patients with elevated CRP are POTENTIALLY at a HIGHER RISK OF FUTURE CARDIAC EVENTS. Performed By: #### C RP #### [address] [address] Diff Autoon 10-26-2023 Baso Absolute 0.1 x10*3/mcL Normal 0.0-0.2 [facility] Comment on above: Performed By: #### . Automated Diff #### [address] [address] Basophils/100 WBC (Bld) 0.5 % Normal 0.0-1.5 [facility] Comment on above: Performed By: #### . Automated Diff #### [address] [address] Eos Absolute 0.3 x10*3/mcL Normal 0.0-0.4 [facility] Comment on above: Performed By: #### . Automated Diff #### [address] [address] Eosinophils/100 WBC (Bld) 2.1 % Normal 0.0-5.4 [facility] Comment on above: Performed By: #### . Automated Diff #### [address] [address] Lymph Absolute 2.2 x10*3/mcL Normal 1.0-4.8 [facility] Comment on above: Performed By: #### . Automated Diff #### [address] [place] [address] Lymphocytes/100 WBC (Bld) 18.0 % Low 27.2-40.8 [facility] Comment on above: Performed By: #### . Automated Diff #### [address] [address] [place] Absolute 0.6 x10*3/mcL Normal 0.1-1.1 [facility] Comment on above: Performed By: #### . Automated Diff #### [address] [address] Monocytes/100 WBC (Bld) 4.9 % Normal 3.7-11.9 [facility] Comment on above: Performed By: #### . Automated Diff #### [address] [address] Neutro Absolute 9.2 x10*3/mcL High 1.8-7.7 [facility] Comment on above: Performed By: #### . Automated Diff #### [address] [address] Neutro Auto 74.5 % High 47.2-70.8 [facility] Comment on above: Performed By: #### . Automated Diff #### [address] [address] ESRon 10-26-2023 Sed Rate 67 mm/hr High 0-30 [facility] Comment on above: Performed By: #### E SR #### [place] [id number] Infectious Disease Office/Cl inic Noteon 10-26-2023 Infectious [...] tabs, 0 Refill(s), 11/09/23 10:12:00 EDT, Pharmacy: [facility] #[id number] Basic Metabolic Profile C-Reactive Protein Complete Blood Count w/ Differential Erythrocyte Sedimentation Rate 2. Pseudomonas infection As above Ordered: levoFLOXacin, 1 tabs, Oral, q24hr, X 14 days, # 14 tabs, 0 Refill(s), 11/09/23 10:12:00 EDT, Pharmacy: [facility] #[id number] Basic Metabolic Profile C-Reactive Protein Complete Blood Count w/ Differential Erythrocyte Sedimentation Rate Chief Complaint New pt I&D done at [facility], possible infection of back. History of Present Illness Seen today for persistent drainage after back surgery on September 01. She had L3-L4 decompression and fusion by Dr. Saint Gregory at [facility]. She was discharged home on the . She was discharged on cephalexin for 10 days. She was taken back to surgery on October 11 due to persistent drainage and wound dehiscence. She had a fluid collection which was most consistent with seroma/infection . [place] surgery [place] done in [place]. Cultures grew Pseudomonas and she was discharged on Cipro. She could not tolerate it and stopped it after 3 days. After the 10 days of cephalexin initially, she received cephalexin September 27 from [facility]. She apparently got doxycycline and azithromycin [...] data Procedure/Surgical History Neck Surgery Stomach Pain [facility] (09/02/2023) incision & drainage (10/12/2023) Medications [...] SARS-CoV-2 (COVID-19 (more content not included)... Normal [facility] Provider Letteron 10-26-2023 Provider Letter (Inserted Image. Shelly ble to display) Tejas Richardson DO [address] [place] [address] Re: Radha [place] Date of Visit: 10/26/[address] Richardson, Thank you for your referral to my office. Attached you will find the most recent office visit note. Please call if you have any questions or concerns. Sincerely, Pavel Rodriges MD [address] [facility], [address] [place] [address] The following document(s) were included in the letter: October 26, 2023 10:13:55 EDT - (10/26/2023) Infectious Disease Office Visit Note Normal [facility] ELECTROLYTESon 08-22-2023 Anion gap [Moles/Vol] 8 mmol/L Normal 5-15 [facility] Comment on above: Performed By: #### E LEC #### [facility] ([id number]) [address], [facility] [address] [place] [address] Chloride [Moles/Vol] 110 mmol/L High 98-109 [facility] Comment on above: Performed By: #### E LEC #### [facility] ([id number]) [address] [facility] [place] [address] CO2 [Moles/Vol] 23 mmol/L Normal 22-32 [facility] Comment on above: Performed By: #### E LEC #### [facility] ([id number]) [address] [facility] [address] [place] [address] Potassium [Moles/Vol] 4.4 mmol/L Normal 3.5-5.0 [facility] Comment on above: Performed By: #### E LEC #### [facility] ([id number]) [address] [facility] [facility] [address] [place] [address] Sodium [Moles/Vol] 141 mmol/L Normal 134-146 [facility] Comment on above: Performed By: #### E LEC #### [facility] ([id number]) [address], [address] [place] [address] CARDIAC AZAR ADMITon 03-07- 020 CK [Catalytic activity/Vol] 915 U/L Critically high 30-135 [facility] Comment on above: Result Comment: Test repeated. Critical value verified. Performed By: #### D RUGRPD #### [facility] [address] [place], [place] [address] Christian Mikayla CK.MB [Mass/Vol] 12.82 ng/mL Critically high <=2.37 [facility] Comment on above: Result Comment: Test repeated. Critical value verified. Performed By: #### D RUGRPD #### [facility] [address] [place], [place] [address] Christian Mikayla INR Coag (Bld) [Relative time] SEE BELOW Normal [facility] Comment on above: Result Comment: <0.0 34 ng/ml NEGATIVE 0.034-0.119 INDETERMINATE 0.120 AMI CUT OFF Performed By: #### D RUGRPD #### [facility] [address] [place], [place] [address] Christian Mikayla ÁNGEL 96.0 ng/mL Critically high <=61.5 [facility] Comment on above: Performed By: #### D RUGRPD #### [facility] [address] [place], [place] [address] Christian Mikayla TROP 0.028 ng/mL Normal <=0.034 [facility] Comment on above: Performed By: #### D RUGRPD #### [facility] [address] [place], [place] [address] Christian Mikayla CK [Catalytic activity/Vol] 1282 U/L Critically high 30-135 [facility] Comment on above: Result Comment: Test repeated. Critical value verified. Performed By: #### T ROP, CMP #### [facility] [address] [place] [address] Christian Degroot CK.MB [Mass/Vol] 24.63 ng/mL Critically high <=2.37 [facility] Comment on above: Result Comment: Test repeated. Critical value verified. Performed By: #### T ROP, CMP #### [facility] [address] [place], [place] [address] Christian Santanaen INR Coag (Bld) [Relative time] SEE BELOW Normal [facility] Comment on above: Result Comment: <0.0 34 ng/ml NEGATIVE 0.034-0.119 INDETERMINATE 0.120 AMI CUT OFF Performed By: #### T ROP, CMP #### [facility] [address] [place] [address] Christian Mikayla ÁNGEL 235.0 ng/mL Critically high <=61.5 [facility] Comment on above: Performed By: #### T ROP, CMP #### [facility] [address] [place] [address] Christian Mikayla TROP 0.033 ng/mL Normal <=0.034 [facility] Comment on above: Performed By: #### T ROP, CMP #### [facility] [address] [place], [place] [address] Christian Mikayla CBC AUTO DIFFon 03-07-2020 Basophils (Bld) [#/Vol] 0.0 103/ul Normal 0.0-0.1 [facility] Comment on above: Performed By: #### C BC #### [facility] [address] [place], [place] [address] Christian Mikayla Basophils/100 WBC (Bld) 0.1 % Critically low 0.2-2.0 [facility] Comment on above: Performed By: #### C BC #### [facility] [address] [place], [place] [address] Christian Mikayla Eosinophils (Bld) [#/Vol] 0.0 103/ul Normal 0.0-0.7 [facility] Comment on above: Performed By: #### C BC #### [facility] [address] [place], [place] [address] Chrsitian Mikayla Eosinophils/100 WBC (Bld) 0.0 % Critically low 0.9-7.0 [facility] Comment on above: Performed By: #### C BC #### [facility] [address] [place], [place] [address] Christianvíctor Degroot Erythrocyte distribution width (RBC) [Ratio] 13.4 % Normal 11.0-15.0 [facility] Comment on above: Performed By: #### C BC #### [facility] [address] [place], [place] [address] Christian Mikayla Hematocrit (Bld) [Volume fraction] 35.4 % Critically low 36.0-48.0 [facility] Comment on above: Performed By: #### C BC #### [facility] [address] [place] [address] Christian Mikayla Hemoglobin (Bld) [Mass/Vol] 11.4 g/dL Critically low 12.0-16.0 [facility] Comment on above: Performed By: #### C BC #### [facility] [address] [place] [address] Christian Mikayla IG # 0.07 10e3/ul Critically high 0.00-0.03 [facility] Comment on above: Performed By: #### C BC #### [facility] [address] [place] [address] Christian Mikayla IG % 0.4 % Normal 0.0-0.5 [facility] Comment on above: Performed By: #### C BC #### [facility] [address] [place], [place] [address] Christian Mikayla Lymphocytes (Bld) [#/Vol] 1.1 103/ul Critically low 1.2-3.8 [facility] Comment on above: Performed By: #### C BC #### [facility] [address] [place], [place] [address] Christian Mikayla Lymphocytes/100 WBC (Bld) 6.9 % Critically low 20.5-60.0 [facility] Comment on above: Performed By: #### C BC #### [facility] [address] [place], [place] [address] Christian Mikayla MANUAL DIFF REQ NO Normal [facility] Comment on above: Performed By: #### C BC #### [facility] [address] [place], [place] [address] Christianvíctor Degroot MCH (RBC) [Entitic mass] 32.7 pg Normal 26.7-34.0 [facility] Comment on above: Performed By: #### C BC #### [facility] [address] [place], [place] [address] Christianvíctor Santanaen MCHC (RBC) [Mass/Vol] 32.2 g/dL Normal 29.9-35.2 [facility] Comment on above: Performed By: #### C BC #### [facility] [address] [place], [place] [address] Christian Mikayla MCV (RBC) [Entitic vol] 101.4 fL Critically high 81.0-99.0 [facility] Comment on above: Performed By: #### C BC #### [facility] [address] [place], [place] [address] Christian Mikayla Monocytes (Bld) [#/Vol] 1.4 103/ul Critically high 0.3-0.8 [facility] Comment on above: Performed By: #### C BC #### [facility] [address] [place], [place] [address] Christian Mikayla Monocytes/100 WBC (Bld) 8.6 % Normal 1.7-12.0 [facility] Comment on above: Performed By: #### C BC #### [facility] [address] [place], [place] [address] Christian Mikayla Neutrophils (Bld) [#/Vol] 13.4 103/ul Critically high 1.4-6.5 [facility] Comment on above: Performed By: #### C BC #### [facility] [address] [place], [place] [address] Christian Mikayla Neutrophils/100 WBC (Bld) 84.0 % Critically high 43.0-75.0 [facility] Comment on above: Performed By: #### C BC #### [facility] [address] [place], [place] [address] Christian Mikayla Platelet mean volume (Bld) [Entitic vol] 9.5 fL Normal 9.5-13.5 [facility] Comment on above: Performed By: #### C BC #### [facility] [address] [place], [place] [address] Christianvíctor Santanaen Platelets (Bld) [#/Vol] 207 103/ul Normal 150-450 [facility] Comment on above: Performed By: #### C BC #### [facility] [address] [place], [place] [address] Christian Mikayla RBC (Bld) [#/Vol] 3.49 106/ul Critically low 4.20-5.40 [facility] Comment on above: Performed By: #### C BC #### [facility] [address] [place], [place] [address] Christian Mikayla WBC (Bld) [#/Vol] 16.0 103/ul Critically high 4.0-11.0 [facility] Comment on above: Performed By: #### C BC #### [facility] [address] [place], [place] [address] Christian Mikayla PROF CHEM 8 (BAS METB)on Anion gap [Moles/Vol] 11.2 mmol/L Normal [facility] Comment on above: Performed By: #### D RUGRPD #### [facility] [address] [place], [place] [address] Christian Mikayla Calcium [Mass/Vol] 8.3 mg/dL Critically low 8.4-10.2 [facility] Comment on above: Performed By: #### D RUGRPD #### [facility] [address] [place], [place] [address] Christian Mikayla Chloride [Moles/Vol] 106 mmol/L Normal 98-107 [facility] Comment on above: Performed By: #### D RUGRPD #### [facility] [address] [place], [place] [address] Christian Mikayla CO2 [Moles/Vol] 24.5 mmol/L Normal 22.0-30.0 [facility] Comment on above: Performed By: #### D RUGRPD #### [facility] [address] [place] [id number] Christian Mikayla Creatinine [Mass/Vol] 0.53 mg/dL Normal 0.52-1.04 [facility] Comment on above: Performed By: #### D COLT #### [facility] [address] [place] [id number] Christian Mikayla EGFR-AF BRAZILIAN >60 Normal >=60 [facility] Comment on above: Performed By: #### D RUGLANDYD #### [facility] [address] [place] [id number] Christian Mikayla EGFR-NON AF BRAZILIAN >60 Normal >=60 [facility] Comment on above: Performed By: #### D COLT #### [facility] [address] [place] [address] Christian Mikayla Glucose [Mass/Vol] 113 mg/dL Critically high 74-106 [facility] Comment on above: Performed By: #### D COLT #### [facility] [address] [place] [address] Christian Mikayla Potassium [Moles/Vol] 3.7 mmol/L Normal 3.4-5.0 [facility] Comment on above: Performed By: #### D COLT #### [facility] [address] [place], [place] [address] Christian Mikayla Sodium [Moles/Vol] 138 mmol/L Normal 137-145 [facility] Comment on above: Performed By: #### D COLT #### [facility] [address] [place] [address] Christian Mikayla Urea nitrogen [Mass/Vol] 12.0 mg/dL Normal 7.0-17.0 [facility] Comment on above: Performed By: #### D COLT #### [facility] [address] [place], [place] [address] Christian Mikayla Urea nitrogen/Creatinin e [Mass ratio] 22.6 mg/mg Normal [facility] Comment on above: Performed By: #### D COLT #### [facility] [address] [place] [phone] Christian Mikayla CBC W MANUAL DIFFon 03-06-20 20 ATYPICAL LYMPH # Normal [facility] Comment on above: Performed By: #### D RUGRPD #### [facility] [address] [place] [address] Christian Mikayla ATYPICAL LYMPH % Normal [facility] Comment on above: Performed By: #### D RUGRPD #### [facility] [address] [place] [address] Christian Mikayla BAND # Normal 0.0-0.3 [facility] Comment on above: Performed By: #### D RUGRPD #### [facility] [address] [place] [address] Christian Mikayla BAND % Normal 0-5 [facility] Comment on above: Performed By: #### D RUGRPD #### [facility] [address] [place] [address] Christian Mikayla BASOM # 0.00 103/ul Normal 0.00-0.10 [facility] Comment on above: Performed By: #### D RUGRPD #### [facility] [address] [place] [address] Christian Mikayla BASOM % 0.0 % Critically low 0.2-2.0 [facility] Comment on above: Performed By: #### D RUGRPD #### [facility] [address] [place] [address] Christian Mikayla BLAST # Normal [facility] Comment on above: Performed By: #### D RUGRPD #### [facility] [address] [place] [address] Christian Mikayla BLAST % Normal [facility] Comment on above: Performed By: #### D RUGRPD #### [facility] [address] [place] [address] Christian Mikayla CORRECTED WBC Normal 4.0-11.0 [facility] Comment on above: Performed By: #### D RUGRPD #### [facility] [address] [place] [address] Christian Mikayla Eosinophils (Bld) [#/Vol] 0.00 103/ul Normal 0.00-0.70 [facility] Comment on above: Performed By: #### D RUGRPD #### [facility] [address] [place], [place] [address] Christian Mikayla Eosinophils/100 WBC (Bld) 0.0 % Critically low 0.9-7.0 [facility] Comment on above: Performed By: #### D RUGRPD #### [facility] [address] [place], [place] [address] Christian Mikayla Erythrocyte distribution width (RBC) [Ratio] 13.2 % Normal 11.0-15.0 [facility] Comment on above: Performed By: #### D RUGRPD #### [facility] [address] [place], [place] [address] Christian Mikayla Hematocrit (Bld) [Volume fraction] 44.1 % Normal 36.0-48.0 [facility] Comment on above: Performed By: #### D RUGRPD #### [facility] [address] [place], [place] [address] Christian Mikayla Hemoglobin (Bld) [Mass/Vol] 13.9 g/dl Normal 12.0-16.0 [facility] Comment on above: Performed By: #### D RUGRPD #### [facility] [address] [place] [address] Christian Mikayla LYMPHM # 0.26 103/ul Critically low 1.20-3.80 [facility] Comment on above: Performed By: #### D RUGRPD #### [facility] [address] [place], [place] [address] Christian Mikayla LYMPHM% 1.0 % Critically low 20.5-60.0 [facility] Comment on above: Performed By: #### D RUGRPD #### [facility] [address] [place], [place] [address] Christian Mikayla MCH (RBC) [Entitic mass] 32.6 pg Normal 26.7-34.0 [facility] Comment on above: Performed By: #### D RUGRPD #### [facility] [address] [place], [place] [address] Christian Mikayla MCHC (RBC) [Mass/Vol] 31.5 g/dl Normal 29.9-35.2 [facility] Comment on above: Performed By: #### D RUGRPD #### [facility] [address] [place] [address] Christian Degroot MCV (RBC) [Entitic vol] 103.3 fL Critically high 81.0-99.0 [facility] Comment on above: Performed By: #### D RUGRPD #### [facility] [address] [place] [address] Christian Mikayla METAMYELOCYTE # Normal [facility] Comment on above: Performed By: #### D RUGRPD #### [facility] [address] [place] [address] Christianvíctor Degroot METAMYELOCYTE % Normal [facility] Comment on above: Performed By: #### Dwayne LESLIERPD #### [facility] [address] [place] [address] Christian Mikayla MONOM# 1.32 103/ul Critically high 0.30-0.80 [facility] Comment on above: Performed By: #### Dwayne LESLIERPD #### [facility] [address] [place] [address] Christian Mikayla MONOM% 5.0 % Normal 1.7-12.0 [facility] Comment on above: Performed By: #### Dwayne LESLIERPD #### [facility] [address] [place] [address] Christian Mikayla MYELOCYTE # Normal [facility] Comment on above: Performed By: #### D RUGRPD #### [facility] [address] [place] [address] Christian Mikayla MYELOCYTE % Normal [facility] Comment on above: Performed By: #### D MARIAMARPD #### [facility] [address] [place] [address] Christian Degroot NRBC Normal [facility] Comment on above: Performed By: #### D MARIAMARPD #### [facility] [address] [place] [address] Christian Degroot Platelet mean volume (Bld) [Entitic vol] 9.6 fL Normal 9.5-13.5 [facility] Comment on above: Performed By: #### D MARIAMARPD #### [facility] [address] [place] [address] Christian Degroot Platelets (Bld) [#/Vol] 268 103/ul Normal 150-450 [facility] Comment on above: Performed By: #### D JUNED #### [facility] [address] [place], [place] [address] Christian Degroot RBC (Bld) [#/Vol] 4.27 106/ul Normal 4.20-5.40 [facility] Comment on above: Performed By: #### D JUNED #### [facility] [address] [place], [place] [address] Christian Degroot SEG # 24.82 103/ul Critically high 1.40-6.50 [facility] Comment on above: Performed By: #### D COLT #### [facility] [address] [place], [place] [address] Christian Degroot Segmented neutrophils/100 WBC (Bld) 94.0 % Critically high 43.0-75.0 [facility] Comment on above: Performed By: #### D JUNED #### [facility] [address] [place], [place] [address] Christian Degroot WBC (Bld) [#/Vol] 26.4 103/ul Critically high 4.0-11.0 [facility] Comment on above: Performed By: #### D JUNED #### [facility] [address] [place], [place] [address] Christian Degroot CPKon 03-06-2020 CK [Catalytic activity/Vol] 464 U/L Critically high 30-135 [facility] Comment on above: Result Comment: test repeated critical value verified Performed By: #### C K #### [facility] [address] [place], [place] [address] Christian Degroot CT ABD/PELV W CONon 03-06-20 [...] by: MAT CASEY Date: 2020-03-06 18:45 Normal [facility] CT STROKE HEAD WOon 03-06-20 20 [...] Date: 2020-03-06 16:31 Normal [facility] DRUG SCREEN RAPID (URINE)on 03-06-2020 AMP Positive Normal NEGATIVE [facility] Comment on above: Performed By: #### D RUGRPD #### [facility] [address] [place] [address] Christian Mikayla BAR Negative Normal NEGATIVE [facility] Comment on above: Performed By: #### D RUGRPD #### [facility] [address] [place] [address] Christian Mikayla BUP Negative Normal NEGATIVE [facility] Comment on above: Performed By: #### D RUGRPD #### [facility] [address] [place] [address] Christian Mikayla BZO Negative Normal NEGATIVE [facility] Comment on above: Performed By: #### D RUGRPD #### [facility] [address] [place] [address] Christian Mikayla RITCHIE Negative Normal NEGATIVE [facility] Comment on above: Performed By: #### D RUGRPD #### [facility] [address] [place] [address] Christian Mikayla CUT-OFFS SEE BELOW Normal [facility] Comment on above: Result Comment: AMP [...] By: #### D RUGRPD #### [facility] [address] [place] [address] Mikayla DRUG CUT HEADER DRUG CLASS TEST SYST EM CUT-OFF CONCENTRATIONS ARE FOLLOWS: Normal [facility] Comment on above: Performed By: #### D RUGRPD #### [facility] [address] [place] [address] Christian Mikayla mAMP Negative Normal NEGATIVE [facility] Comment on above: Performed By: #### D RUGRPD #### [facility] [address] [place] [address] Christian Mikayla MTD Negative Normal NEGATIVE [facility] Comment on above: Performed By: #### D RUGRPD #### [facility] [address] [place] [address] Christian Mikayla OPI Positive Normal NEGATIVE [facility] Comment on above: Performed By: #### D RUGRPD #### [facility] [address] [place] [address] Christian Mikayla OXY Negative Normal NEGATIVE [facility] Comment on above: Performed By: #### D RUGRPD #### [facility] [address] [place] [address] Christian Mikayla PCP Negative Normal NEGATIVE [facility] Comment on above: Performed By: #### D RUGRPD #### [facility] [address] [place] [address] Christian Mikayla PPX Negative Normal NEGATIVE [facility] Comment on above: Performed By: #### D RUGRPD #### [facility] [address] [place] [address] Christian Mikayla TCA Negative Normal NEGATIVE [facility] Comment on above: Performed By: #### D RUGRPD #### [facility] [address] [place] [address] Christian Mikayla THC Negative Normal NEGATIVE [facility] Comment on above: Performed By: #### D RUGRPD #### [facility] [address] [place] [address] Christian Mikayla ER URINE PROFILEon 0 Bilirubin [Mass/Vol] Negative Normal NEGATIVE [facility] Comment on above: Performed By: #### E RUR #### [facility] [address] [place] [address] Christian Mikayla BLOOD Negative Normal NEGATIVE [facility] Comment on above: Performed By: #### E RUR #### [facility] [address] [place] [address] Christian Mikayla Clarity (U) CLEAR Normal [facility] Comment on above: Performed By: #### E RUR #### [facility] [address] [place], [place] [address] Christian Mikayla Color (U) YELLOW Normal YELLOW [facility] Comment on above: Performed By: #### E RUR #### [facility] [address] [place] [address] Christian Mikayla ERUAHD A micrscopic examina tion will be performed if indicated. Normal [facility] Comment on above: Performed By: #### E RUR #### [facility] [address] [place] [address] Christian Mikayla Glucose [Mass/Vol] Negative Normal NEGATIVE [facility] Comment on above: Performed By: #### E RUR #### [facility] [address] [place] [address] Christian Mikayla Ketones Ql (U) Negative Normal NEGATIVE [facility] Comment on above: Performed By: #### E RUR #### [facility] [address] [place] [address] Christian Mikayla Nitrite Ql (U) Negative Normal NEGATIVE [facility] Comment on above: Performed By: #### E RUR #### [facility] [address] [place] [address] Christian Mikayla pH (Bld) 6.0 Normal 5-9 [facility] Comment on above: Performed By: #### E RUR #### [facility] [address] [place] [address] Christian Mikayla Protein (U) [Mass/Vol] TRACE Normal [facility] Comment on above: Performed By: #### E RUR #### [facility] [address] [place] [address] Christian Mikayla SPEC GRAVITY >=1.030 Normal 1.005-<=1.02 5 [facility] Comment on above: Performed By: #### E RUR #### [facility] [address] [phone] Christianvíctor Degroot UR MICRO IND NOT INDICATED Normal [facility] Comment on above: Performed By: #### E RUR #### [facility] [address] [place], [place] [address] Christianvíctor Degroot Urobilinogen Qn (U) 0.2 EU/dl Normal [facility] Comment on above: Performed By: #### E RUR #### [facility] [address] [place], [place] [address] Christian Mikayla WBC (Bld) [#/Vol] Negative Normal NEGATIVE [facility] Comment on above: Performed By: #### E RUR #### [facility] [address] [place], [place] [address] Christian Mikayla ETHANOL (BLD ALC)on 03-06-20 20 Ethanol [Mass/Vol] NOTE: 80 mg/dl is th e legal limit for a blood alcohol level Normal [facility] Comment on above: Performed By: #### E TH #### [facility] [address] [place], [place] [address] Christianvíctor Degroot Ethanol [Mass/Vol] mg/dL Normal [facility] Comment on above: Performed By: #### E TH #### [facility] [address] [place], [place] [address] Christian Mikayla HEMOGRAM AND PLATELon 2019 WBC (Bld) [#/Vol] 23.5 103/ul Critically high 4.0-11.0 T [facility] Comment on above: Performed By: #### H H #### [facility] [address] [place], [place] [address] Christian Mikayla LACTATE/LACTIC ACIDon 2019 Lactate [Moles/Vol] 0.7 mmol/L Normal 0.7-2.0 [facility] Comment on above: Performed By: #### L ACT #### [facility] [address] [place], [place] [address] Christian Mikayla MYOGLOBINon 03-06-2020 Myoglobin [Mass/Vol] 918.0 ng/mL Critically high <=61.5 [facility] Comment on above: Result Comment: test repeated critical value verified Performed By: #### M YO #### [facility] [address] [place], [place] [address] Christian Degroot POINT OF CARE GLUCOSEon 02-14 Glucose [Mass/Vol] 117 mg/dL Critically high 74-106 T [facility] Comment on above: Performed By: #### D RUGRPD #### [facility] [address] [place], [place] [address] Christianvíctor Degroot PROF 14(COMP METB)on 020 Albumin [Mass/Vol] 3.3 g/dL Critically low 3.5-5.0 [facility] Comment on above: Performed By: #### T BLAYNE, CMP #### [facility] [address] [place], [place] [address] Christian Mikayla Albumin/Globulin [Mass ratio] 1.1 {ratio} Normal [facility] Comment on above: Performed By: #### T BLAYNE, CMP #### [facility] [address] [place], [place] [address] Christian Mikayla ALP [Catalytic activity/Vol] 69 U/L Normal 38-126 [facility] Comment on above: Performed By: #### T ROP, CMP #### [facility] [address] [place], [place] [address] Christian Mikayla ALT [Catalytic activity/Vol] 30 U/L Normal 9-52 [facility] Comment on above: Performed By: #### T ROP, CMP #### [facility] [address] [place], [place] [address] Christian Mikayla Anion gap [Moles/Vol] 16.8 mmol/L Normal [facility] Comment on above: Performed By: #### T ROP, CMP #### [facility] [address] [place], [place] [address] Christian Mikayla AST [Catalytic activity/Vol] 29 U/L Normal 14-36 [facility] Comment on above: Performed By: #### T ROP, CMP #### [facility] [address] [phone] Christian Mikayla Bilirubin Ql (U) 0.4 mg/dL Normal 0.2-1.3 [facility] Comment on above: Performed By: #### T ROP, CMP #### [facility] [address] [phone] Christian Mikayla Calcium [Mass/Vol] 8.7 mg/dL Normal 8.4-10.2 [facility] Comment on above: Performed By: #### T ROP, CMP #### [facility] [address] [phone] Christian Mikayla Chloride [Moles/Vol] 104 mmol/L Normal 98-107 [facility] Comment on above: Performed By: #### T ROP, CMP #### [facility] [address] [address] Christian Mikayla CO2 [Moles/Vol] 22.6 mmol/L Normal 22.0-30.0 [facility] Comment on above: Performed By: #### T ROP, CMP #### [facility] [address] [phone] Christian Mikayla Creatinine [Mass/Vol] 0.92 mg/dL Normal 0.52-1.04 [facility] Comment on above: Performed By: #### T ROP, CMP #### [facility] [address] [place], [place] [address] Christian Mikayla EGFR-AF BRAZILIAN >60 Normal >=60 [facility] Comment on above: Performed By: #### T ROP, CMP #### [facility] [address] [phone] Christian Mikayla EGFR-NON AF BRAZILIAN >60 Normal >=60 [facility] Comment on above: Performed By: #### T ROP, CMP #### [facility] [address] [phone] Christian Mikayla Globulin (S) [Mass/Vol] 3.0 g/dL Normal [facility] Comment on above: Performed By: #### T ROP, CMP #### [facility] [address] [phone] Christian Mikayla Glucose [Mass/Vol] 130 mg/dL Critically high 74-106 [facility] Comment on above: Performed By: #### T ROP, CMP #### [facility] [address] [place] [address] Christian Mikayla Potassium [Moles/Vol] 4.4 mmol/L Normal 3.4-5.0 [facility] Comment on above: Performed By: #### T ROP, CMP #### [facility] [address] [place] [address] Christian Mikayla Protein [Mass/Vol] 6.3 g/dL Normal 6.1-8.2 [facility] Comment on above: Performed By: #### T BLAYNE, CMP #### [facility] [address] [place] [address] Chrsitian Mikayla Sodium [Moles/Vol] 139 mmol/L Normal 137-145 [facility] Comment on above: Performed By: #### T BLAYNE, CMP #### [facility] [address] [place] [address] Christian Mikayla Urea nitrogen [Mass/Vol] 18.0 mg/dL Critically high 7.0-17.0 [facility] Comment on above: Performed By: #### T BLAYNE, CMP #### [facility] [address] [place] [address] Christian Mikayla Urea nitrogen/Creatinin e [Mass ratio] 19.6 mg/mg Normal [facility] Comment on above: Performed By: #### T ROP, CMP #### [facility] [address] [place] [address] Christian Mikayla RESPIRATORY PANEL PLUSon Adenovirus NOT DETECTED Normal NOT DETECTED [facility] Comment on above: Performed By: #### D RUGRPD #### [facility] [address] [place] [address] Christian Mikayla B. Parapertusis NOT DETECTED Normal NOT DETECTED [facility] Comment on above: Performed By: #### D RUGRPD #### [facility] [address] [place], [place] [address] Christian Mikayla B. Pertussis NOT DETECTED Normal NOT DETECTED [facility] Comment on above: Performed By: #### D RUGRPD #### [facility] [address] [place] [address] Christian Mikayla Chlamydia Pneumoniae NOT DETECTED Normal NOT DETECTED [facility] Comment on above: Performed By: #### D RUGRPD #### [facility] [address] [place] [address] Christian Mikayla Coronavirus 229E NOT DETECTED Normal NOT DETECTED [facility] Comment on above: Performed By: #### D RUGRPD #### [facility] [address] [place] [address] Christian Mikayla Coronavirus HKU1 NOT DETECTED Normal NOT DETECTED [facility] Comment on above: Performed By: #### D RUGRPD #### [facility] [address] [place] [address] Christian Mikayla Coronavirus NL63 NOT DETECTED Normal NOT DETECTED [facility] Comment on above: Performed By: #### D RUGRPD #### [facility] [address] [place] [address] Christian Mikayla Coronavirus OC43 NOT DETECTED Normal NOT DETECTED [facility] Comment on above: Performed By: #### D RUGRPD #### [facility] [address] [place] [address] Christian Mikayla Influenza A H1 2008 NOT DETECTED Normal NOT DETECTED [facility] Comment on above: Performed By: #### D RUGRPD #### [facility] [address] [place] [address] Christian Mikayla Influenza B NOT DETECTED Normal NOT DETECTED [facility] Comment on above: Performed By: #### D RUGRPD #### [facility] [address] [place] [address] Christian Mikayla Metapneumovirus NOT DETECTED Normal NOT DETECTED [facility] Comment on above: Performed By: #### D RUGRPD #### [facility] [address] [place] [address] Christian Mikayla Mycoplas. Pneumoniae NOT DETECTED Normal NOT DETECTED [facility] Comment on above: Performed By: #### D RUGRPD #### [facility] [address] [address] Christian Mikayla Parainfluenza 1 NOT DETECTED Normal NOT DETECTED [facility] Comment on above: Performed By: #### D RUGRPD #### [facility] [address] [address] Christian Mikayla Parainfluenza 2 NOT DETECTED Normal NOT DETECTED [facility] Comment on above: Performed By: #### D RUGRPD #### [facility] [address] [place] [address] Christian Mikayla Parainfluenza 3 NOT DETECTED Normal NOT DETECTED [facility] Comment on above: Performed By: #### D RUGRPD #### [facility] [address] [place] [address] Christian Mikayla Parainfluenza 4 NOT DETECTED Normal NOT DETECTED [facility] Comment on above: Performed By: #### D RUGRPD #### [facility] [address] [place] [address] Christian Mikayla Rhino/Enterovirus NOT DETECTED Normal NOT DETECTED [facility] Comment on above: Performed By: #### D RUGRPD #### [facility] [address] [place] [address] Christian Mikayla RP2 Header 1 RESPIRATORY PANEL: VIRUSES Normal [facility] Comment on above: Performed By: #### D RUGRPD #### [facility] [address] [place] [address] Christian Mikayla RP2 Header 2 RESPIRATORY PANEL: BACTERIA Normal [facility] Comment on above: Performed By: #### D RUGRPD #### [facility] [address] [place] [address] Christian Mikayla RP2 Header 4 EUA SEE BELOW Normal [facility] Comment on above: Result Comment: This test is not yet approved or cleared by the [place] FDA. When there are no FDA-approved or cleared tests available, and other criteria are met, FDA can make tests available under an emergency access mechanism called an Emergency Use Authorization (EUA). The EUA for this test is supported by the [employer] of Health and Human Service?s (HHS?s) declaration [...] By: #### D RUGRPD #### [facility] [address] [place] [address] RSV NOT DETECTED Normal NOT DETECTED [facility] Comment on above: Performed By: #### D RUGRPD #### [facility] [address] [place], [place] [address] SARS-CoV-2: COVID-19 NOT DETECTED Normal NOT DETECTED [facility] Comment on above: Performed By: #### D RUGRPD #### [facility] [address] [place] [address] TROPONIN - Ion 03-06-2020 Troponin I.cardiac [Mass/Vol] 0.016 ng/mL Normal <=0.034 [facility] Comment on above: Performed By: #### T BLAYNE, CMP #### [facility] [address] [place] [address] Troponin I.cardiac [Mass/Vol] SEE BELOW Normal [facility] Comment on above: Result Comment: <0.0 34 ng/ml NEGATIVE 0.034-0.119 INDETERMINATE 0.120 AMI CUT OFF Performed By: #### T ROP, CMP #### [facility] [address] [place] [address] [facility] Von 03-06-2020 XR CHEST [...] by: FELA SMITH Date: 2020-03-06 15:07 Normal [facility] CT 3D CERVICAL SPINE WITH CO NTRASTon 04-27-2018 CT 3D CERVICAL SPINE [facility] CONTRAST [facility] [address] [place] [address] Patient Name: RADHA DUNCAN : 1970Sex: FAge: Race: WhiteMRN: [id number]. Location: 85Patient Status: OVisit #: [id number] Date: 04/10/2018 12:10:00 PMCompleted Date: 04/27/2018 10:58 AMRequesting Provider: MARY DIAL Attending Provider: MARY DIAL Report Copy To: TEJAS RICHARDSON Signs & Symptoms: M54.12 Radiculopathy, cervical region [id number]: Nyla MYELOGRAM AUTH [id number] VALID 04/11/18-07/12/18 PER [facility] [id number] JYComments: Exam: CT 3D CERVICAL SPINE WITH CONTRASTAccession #: [id number] CT 3D CERVICAL SPINE WITH CONTRAST 04/27/2018 [...] findings. Electronically signed by:Oli Sanders. Transcribed by: [email or web address], User Resident: MANDEEP YOUNGElectronically Signed by: OLI SANDERS @ 04/27/2018 01:02 PMI personally read this/these film(s) with this resident Normal [facility] CT 3D LUMBAR SPINE W CONTRAS Ton 04-27-2018 CT 3D LUMBAR SPINE W CONTRAST [facility] [address] [place] [address] Patient Name: RADHA DUNCAN : 1970Sex: FAge: Race: WhiteMRN: [id number]. Location: 85Patient Status: DVisit #: [id number] Date: 04/10/2018 12:10:00 PMCompleted Date: 04/27/2018 10:59 AMRequesting Provider: MARY DIAL Attending Provider: MARY DIAL Report Copy To: DYLANTEJAS Signs & Symptoms: M54.16 Radiculopathy, lumbar region G87Tmjkuec: Nyla MYELOGRAM AUTH [id number] VALID 04/11/18-07/12/18 PER R17 [id number] JYComments: Exam: CT 3D LUMBAR SPINE W CONTRASTAccession #: [id number] CT 3D LUMBAR SPINE W CONTRAST 04/27/2018 [...] findings. Electronically signed by:Antony Skelton. Transcribed by: [email or web address], User Resident: MANDEEP YOUNGElectronically Signed by: ANTONY SKELTON @ 04/27/2018 05:36 PMI personally read this/these film(s) with this resident Normal [facility] ENTIRE MYELOGRAMon 8 ENTIRE MYELOGRAM [facility] [address] [id number] Patient Name: RADHA DUNCAN : 1970Sex: FAge: Race: WhiteMRN: [id number]. Location: Patient Status: OVisit #: [id number] Date: 04/10/2018 12:10:00 PMCompleted Date: 04/27/2018 10:19 AMRequesting Provider: MARY DIAL Attending Provider: MARY DIAL Report Copy To: TEJAS RICHARDSON Signs & Symptoms: M54.16 Radiculopathy, lumbar region B84Gnnhwsw: Nyla CT MYELOGRAMComments: , , , Ordering Provider - MARY DIAL MD , Exam: ENTIRE MYELOGRAMAccession #: [id number] ENTIRE MYELOGRAM 04/27/2018 10:19 AM EST SIGNS [...] and risks are acceptable. Consent was obtained. Timeout:[place] protocol timeout verification performed. PROCEDURE:Estimated blood loss:None [...] findings. Electronically signed by:Oli Sanders. Transcribed by: [email or web address], User Resident: MANDEEP YOUNGElectronically Signed by: OLI SANDERS @ 04/27/2018 01:01 PMI personally read this/these film(s) with this resident Normal [facility] Comment on above: Order Comment: , , = ========= , Ordering Provider - MARY DIAL MD , Ta 02-20-2018 CNPYamilex Telephone ([facility]) -------RADHA DUNCAN ([id number]) 1970 FDate Time Provider Nauflruzya45/8/18 MAGED MURDOCK During your visit today, we recorded the following information about you:[facility] Patient Service Spec 02/20/2018 8:05 AM SignedPt [...] from his care.Please call her back at [phone].Elysia Montoya Psr 02/22/2018 8:37 AM SignedPlease fax letter over to [phone].Clint Park LPN 02/27/2018 10:18 AM SignedSpoke with patient and she wanted to know if knew of a physician inthe area that she lived that could do the ketamine infusion.I explained most likely he would not have this information she would need tocheck around in her area with other pain providers to see if they do theinfusions. She said she found one in the [place] area but they want money upfront and [...] Known Allergies)Date Reviewed: 02/10/2018Reviewed by: Kayla Sparks DIGITAL PRODUCT MANAGER - Fully AssessedReason for Visit: Letter [...] MURDOCK MD on 02/28/18 Normal [facility] CNOVon 02-10-2018 CNOV Office Visit ([facility]) -------RADHA DUNCAN ([id number]) 1970 FDate Time Provider Department02/10/18 10:45 AM MAGED MURDOCK During your visit today, we recorded the following information about you: Pulse Respiration Blood pressure Weight 80/minute 16/minute 132/47 69.9 kgMaged Murdock MD 02/11/2018 1:30 PM AddendumSUBJECTIVE:The patient presents to [facility] Pain Management Department for afollow-up appointment [...] percocet was last taken 02/09/2018 in the [facility] OARRS records were reviewed.Imaging results in scanned [...] other than HPI.Data scribed by above mentioned MA/DIGITAL PRODUCT MANAGER/RN/PA, and personally reviewed andverified by physician. [...] treatment plan. Patient agreeswith above. Maged Murdock, PAUcleveland clinic [facility] 2017Referring Provider: LINDSEY AGUILAR [[id number]]Allergies As of Date: 02/10/2018(No Known Allergies)Date Reviewed: 02/10/2018Reviewed by: Kayla Sparks DIGITAL PRODUCT MANAGER - Fully AssessedReason for Visit: Follow Up [...] FOR* 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] INVALID FOR*Letter TextSept2017Maged MurdockSelect Medical Specialty [facility] Columbuspart[facility] of Pain [address] [place]ona[place], [place] [phone] [phone] Radha Duncan:Thank you for seeing me today. [...] any questions. Sincerely, Maged Murdock MDEncounter Number: [id number] Status:Closed by MAGED MURDOCK MD on 02/11/18 Normal [facility] PROGRESSon 02-10-2018 Protein mass conc HNO ID: [id number] thor: Maged Jolleyervice: (none)Author Type: PhysicianType: Progress NotesFiled: 02/11/2018 1:30 PMNote Text:SUBJECTIVE:The patient presents to [facility] Pain Management Departmentfor a follow-up appointment [...] other than HPI.Data scribed by above mentioned MA/DIGITAL PRODUCT MANAGER/RN/PA, and personally reviewed andverified by physician. [...] Maged Murdock, MDSeptember 2017 Normal [facility] CNOVon 01-10-2018 CNOV Office Visit ([facility]) -------DAKOTARADHA Dereje ([id number]) 1970 FDate Time Provider Department01/10/18 1:00 PM MONICA YAN (ARLENE) [facility] During your visit today, we recorded the following information about you: Pulse Blood pressure Weight 85/minute 127/47 70.3 kgMonica Yan APRN.CNP 01/10/2018 2:13 PM SignedSUBJECTIVE:The patient presents to [facility] Pain Management Department for afollow-up appointment [...] and C4-C5 secondaryto DDDAnterior mechanical fusion of A0-9-9VMUCEB OF SYSTEMS:GENERAL: (-) weight loss, (+)malaise, (-)fevers.HEENT:(+)headache [...] other than HPI.Data scribed by above mentioned MA/DIGITAL PRODUCT MANAGER/RN/PA, and personally reviewed andverified by Monica [...] resulting treatment plan. Patient agreeswith above.Monica Yan APRN.[facility] 2017Referring Provider: TEJAS RICHARDSON JR [[id number]]Allergies As of Date: 01/10/2018(No Known Allergies)Date Reviewed: [...] INVALID FOR*Follow-up and Disposition History RecordedEncounter Number: [id number] Status:Closed by MONICA YAN CNP on 01/10/18 Normal [facility] PROGRESSon 01-09-2018 Protein mass conc HNO ID: [id number] thor: Monica Pereyra (Academic Guidance Specialist) HillService: (none)Author Type: Nurse PractitionerType: Progress NotesFiled: 01/10/2018 2:13 PMNote Text:SUBJECTIVE:The patient presents to [facility] Pain Management Departmentfor a follow-up appointment [...] to moderate foraminal narrowing at C3-C4, and C4-T5cuawivyub to DDDAnterior mechanical fusion of T2-1-4JFHTZQ OF SYSTEMS:GENERAL: (-) weight loss, (+)malaise, (-)fevers.HEENT:(+)headache [...] other than HPI.Data scribed by above mentioned MA/DIGITAL PRODUCT MANAGER/RN/PA, and personally reviewed andverified by Monica [...] above.Monica Yan APRN.Lali 2017 Normal [facility] Ta 12-21-2017 CNPN Telephone ([facility]) -------RADHA DUNCAN ([id number]) 1970 FDate Time Provider Department12/21/17 MAGED MURDOCK During your visit today, we recorded the following information about you:Lorena Araiza 12/21/2017 10:31 AM AddendumPatient calling in to inquire if you have received MRI films [facility].Please advisJacob Park LPN 12/22/2017 3:15 PM SignedSpoke with patient and informed her that we did receive the thoracic MRI whichwas normal.We did not receive the cervical MRI. She will call [facility] and have them refaxit.Kami Zheng Workleader 12/26/2017 9:53 AM SignedPatient called back in regards to below message. Patient would like to know ifwe have received the Cervical MRI as it was refaxed 12/22. Pleasereview.Clint Park LPN 12/26/2017 11:01 AM SignedSpoke to [facility] and they are refaxing it as I [...] LPN - Fully AssessedReason for Visit: Question [8747]Prescriptions as of 12/21/2017 Sig: OXCARBAZEPINE 150 MG [...] PARK LPN on 12/22/17 Normal [facility] CNOVon 12-08-2017 CNOV Office Visit ([facility]) -------DAKOTARADHA ([id number]) 1970 [facility] Time Provider Department12/08/17 1:30 PM MAGED MURDOCK During your visit today, we recorded the following information about you: Pulse Respiration Blood pressure Weight 62/minute 16/minute 105/40 68.9 kgMaged Murdock MD 12/08/2017 6:06 PM SignedReferring Or Consulting Physician:Lindsey Aguilar, PA[address] [address]FLOIG COMPLAINT: pain in my neck, shoulders, thoracic [...] Number of children: 0Occupational 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 [...] also during rena-operative period. we dont have cuzf-apvggbk-kuxvwcpc for disability, likely to hamper rapid recovery [...] she did have severe postprocedure pain in [facility]ements handsDirect patient care time spent: [...] mail.Maged Murdock MDJuly 2017Referring Provider: LINDSEY AGUILAR [[id number]]Allergies As of Date: 12/08/2017(No Known Allergies)Date Reviewed: [...] region [M48.02]Order(s):C-REACTIVE PROTEIN (CRP) [SQCRP] Order #: [id number] FUTURE SED RATE WESTERGREN [SQWSR] Order #: [id number] FUTURE TSH BLD [SQTSH] Order #: [id number] FUTURE IRON + TIBC [SQIRON] Order #: [id number] FUTURE VITAMIN D 25 HYDROXY [SQVITD] Order #: [id number] FUTURE MRI THORACIC SPINE WO/W IVCON [8103236] Order #: [id number] FUTURE iv contrast (will be provided with [...] EachRfl: 0 MRI CERVICAL SPINE WO IVCON [[id number]] Order #: [id number] FUTUREPrescriptions as of 12/08/2017 Sig: OXCARBAZEPINE 150 [...] discontinue is not on file.Letter TextJuly 2017Maged MurdockThe MetroHealth SystemDepartment of Pain Tnswmucxpo[address], [place] [phone] [phone] Suzanne M Bailey:Thank you for seeing me [...] medications for the issues above, [facility] be [facility] next [facility]. Afterthat, further testing could be done to get to the bottom of your problems.Please call with any questions. 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 Maged Murdcok MDOBJECTIVE:VS: BP (!) 105/40 Pulse 62 Resp [...] she did have severepost procedure pain in [facility] handsDirect patient care time spent: [...] mail.Maged Murdock MDJuly 2017 Normal [facility] Vital Signs Date Time Vital Sign Value Performing Clinician Faci lity 06-26-2024 09:30-0500 Body height 160 cm Maged Contreras DO Work Phone: [facility] 06-26-2024 09:30-0500 Body mass index (BMI) [Ratio] 30.11 kg/m2 Maged Contreras DO Work Phone: [facility] 06-26-2024 09:30-0500 Body weight 77.11 kg Maged Contreras DO Work Phone: [facility] Encounters Encounter Date Encounter Type Care Provider Facility Start: 08-27-2024 End: 08-27-2024 ambulatory Christian Jameson MD Facility:[facility] Start: 07-23-2024 End: 07-23-2024 ambulatory Christian Jameson MD Facility:[facility] Start: 06-26-2024 End: 06-26-2024 Bamboo flowsheet Maged Eagle Ben DO Work Phone: [facility] Start: 06-26-2024 End: 06-26-2024 Bamboo flowsheet Maged Eagle Ben DO Work Phone: [facility] Start: 06-26-2024 End: 06-26-2024 Clinical Support Gina Riddle [facility] Work Phone: [facility] Comment on [...] 06-11-2024 End: 06-11-2024 ambulatory Christian Jameson MD Facility:[facility] Start: 04-24-2024 End: 04-24-2024 ambulatory [facility] Start: 04-11-2024 End: 04-11-2024 ambulatory [facility] Start: 04-04-2024 End: 04-04-2024 ambulatory [facility] Start: 03-27-2024 End: 03-27-2024 ambulatory FELA Mcghee [facility] Start: 03-20-2024 End: 03-20-2024 ambulatory FELA Mcghee [facility] Start: 03-16-2024 End: 03-16-2024 ambulatory TEJAS RICHARDSON [facility] Start: 03-15-2024 End: 03-15-2024 ambulatory [facility] Work Phone: Start: 03-15-2024 End: 03-15-2024 Patient encounter procedure [facility] Work Phone: Start: 03-13-2024 End: 03-13-2024 ambulatory TEJAS Pereyra [facility] Start: 03-07-2024 End: 03-07-2024 ambulatory [facility] Start: 12-15-2023 End: 01-15-2024 ambulatory TEJAS RICHARDSON [facility] Start: 12-05-2023 End: 12-15-2023 ambulatory TEJAS RICHARDSON [facility] Start: 11-10-2023 End: 11-10-2023 ambulatory Tejas Richardson DO Facility:[facility] Start: 10-26-2023 End: 10-26-2023 ambulatory Pavel Rodriges MD Facility:[facility] Start: 10-26-2023 End: 10-26-2023 ambulatory Tejas Richardson DO Facility:[facility] Start: 08-22-2023 End: 08-22-2023 ambulatory TEJAS RICHARDSON [facility] Start: 08-15-2023 End: 09-14-2023 ambulatory [facility] Start: 07-18-2023 End: 08-15-2023 ambulatory [facility] Start: 03-06-2020 End: 03-07-2020 Patient encounter procedure PEREZ LESTER Facility: Start: 04-27-2018 End: 04-28-2018 Patient encounter procedure PROVIDER UNKNOWN Facility:[facility] Start: 02-10-2018 End: 02-13-2018 Patient encounter MAGED MURDOCK [facility] Start: 01-10-2018 End: 01-11-2018 Patient encounter MONICA Pereyra ARLENE YAN [facility] Start: 12-08-2017 End: 12-09-2017 Patient encounter MAGED MURDOCK [facility] Procedures Date Procedure Procedure Detail Performing Clinician Start: 06-26-2024 AUDITORY FUNCTION TESTS Gina Autumn Riddle [facility] Work Phone: Start: 03-06-2020 End: 03-06-2020 Microscopic examination of blood, culture PEREZ LESTER Comment on above: Performed By: #### D RUGRPD #### [facility] [address] [address] Christian Degroot Start: 01-30-2020 Mammography Maged mercer DO Work Phone: Plan of Treatment Date Care Activity Detail Author Start: 02-06-2025 Screening for malign ant neoplasm of cervix [facility] Start: 06-26-2024 End: 06-26-2024 Patient encounter procedure 06/26/2024 9:30 AM EST Office Visit [facility] [address] [place] [id number] Maged Contreras, [address] [place] [address] Arrived [facility] Comment on above: Arrived Start: 01-15-2024 Influenza vaccination Influenza Vacc ine (#1) [facility] Start: 01-29-2021 Screening for malign ant neoplasm of breast Mammogram [facility] Start: 1990 Screening for malign ant neoplasm of cervix Pap Smear [facility] Start: 1969 Screening for malign ant neoplasm of colon [facility] Immunizations Immunization Date Immunization Notes Care Provider Nazanin thornton 11-29-2020 Pfizer Purple Cap SARS-CoV-2 Vaccination Maged Contreras DO Work Phone: [facility] 11-09-2020 Pfizer Purple Cap SARS-CoV-2 Vaccination Maged Contreras DO Work Phone: [facility] 03-06-2020 influenza, high dose seasonal, preservative-free Maged Contreras DO Work Phone: [facility] 03-06-2020 influenza virus vacc ine, unspecified formulation Maged Contreras DO Work Phone: [facility] Payers Date Payer Category Payer Private Health Insurance [facility] [id number] 2023 Unknown 2023 Unknown [id number] 2022 Unknown [id number] 1969 Unknown [id number] 2.840.1.430222.3.579. 2.647 1969 Unknown [id number] 2.840.1.929207.3.579. 2.593 1969 Unknown [id number] 2.840.1.126073.3.579. 2.1285 1969 Unknown [id number] 2.840.1.249698.3.579. 2.128 1969 Unknown [id number] 2.840.1.684543.3.579. 2.1285 1969 Unknown [id number] 2.16840.1.843331.3.579. 2.1285 1969 Unknown [id number] 2.16840.1.581293.3.579. 2.1285 1969 Unknown [id number] 2.16840.1.447694.3.579. 2.1286 1969 Unknown [id number] 2.840.1.537612.3.579. 2.1285 1969 Unknown [id number] 2.840.1.836060.3.579. 2.1285 1969 Unknown [id number] 2.840.1.247579.3.579. 2.1285 1969 Unknown [id number] 2.840.1.454276.3.579. 2.1285 1969 Unknown [id number] 2.840.1.505945.3.579. 2.1285 1969 Unknown [id number] 2.0.1.255120.3.579. 2.1285 1969 Unknown [id number] .0.1.294821.3.579. 2.1285 1969 Unknown [id number] 2.0.1.493989.3.579. 2.1285 1969 Unknown [id number] 07.01.830.1.076509.3.579. 2.1285 1969 Unknown [id number] 07.01.830.1.556820.3.579. 2.9 1969 Unknown [id number] 07.01.830.1.559091.3.579. 2.1258 1969 Unknown [id number] .840.1.167434.3.579. 2. 1969 Unknown [id number] .840.1.029466.3.579. 2. 1969 Unknown [id number] 2.840.1.355357.3.579. 2. 1969 Unknown [id number] 2.840.1.691782.3.579. 2. 1969 Unknown [id number] .840.1.016858.3.579. 2.196 1969 Unknown [id number] 2.16.840.1.540865.3.579. 2.196 1969 Unknown [id number] 2.16.840.1.050975.3.579. 2.196 1959 Unknown [id number] Unknown [id number] Social History Date Type Detail Facility Tobacco smoking stat [facility] Unknown if ever smoked [facility] Work Phone: Start: 1970 Sex Assigned At Female F [facility] Tobacco smoking stat [facility] Tobacco smoking consumption unknown [facility] Start: 1970 Sex assigned at Not on file [facility] Start: 06-26-2024 Gender identity Not on file [facility] Start: 06-26-2024 Tobacco smoking stat [facility] Smokes tobacco daily [facility] History [...] Facility Evaluation note No assessment information availa [facility] Work Phone: Evaluation note Note Date [...] content) DATE CREATED AUTHOR 04/03/2018 [facility] DATE CREATED AUTHOR AUTHOR'S ORGANIZ ATION 05/03/2018 [facility] DATE CREATED AUTHOR AUTHOR'S ORGANIZ ATION 04/09/2020 [facility] DATE CREATED AUTHOR AUTHOR'S ORGANIZ ATION 04/07/2024 [facility] DATE CREATED AUTHOR AUTHOR'S ORGANIZ ATION 04/28/2024 [facility] DATE CREATED AUTHOR AUTHOR'S ORGANIZ ATION 06/28/2024 [facility] DATE CREATED AUTHOR AUTHOR'S ORGANIZ ATION 09/06/2024 [facility] Care Teams (unrecognized sec tion and content) Team Status: Active Member Role Status Dates Tejas Richardson JR DO Primary Care Provider Active Team Status: Inactive Member Role Status Dates Tejas Richardson JR DO Primary Care Provider Active Start: March 15, 2024 End: March 15, 2024 Fela Roman MD Attending Provider Active Sta rt: March 15, 2024 End: March 15, 2024 Equipment Analyst Relationship Specialty Start Date End Date Tejas Richardson MD [address] [place] [address] PCP - General Internal Medicine 06/26/24 Equipment Analyst Relationship Specialty Start Date End Date Tejas Richardson MD [address] [place] [address] PCP - General Internal Medicine 06/26/24 Equipment Analyst Relationship Specialty Start Date End Date Tejas Richardson MD [address] [place] [address] PCP - General Internal Medicine 06/26/24 Goals [...] BE BASED ON THE PRIMARY CLINICAL RECORDS. [facility] [employer] [facility]. provides no warranty or guarantee of the accuracy or completeness of information in this document.
--- NOTE | 2024-12-12 09:49 | PM.CN ---
Consult Note: HPI Data of Consult Patient: known to practice within the last 3 years Requesting Physician: Anh Gatica NP Primary Care Provider: ULYSSES RICHARDSON DO Consult Narrative Reason for consult: low back, left leg pain Narrative: 54yof who presents for evaluation. low back pain. imaging shows multilevel degnerative changes, stenosis, fusion at l3-4. fusion performed last year, had infection and reoperated last year. has engaged in a series of provider directed home exercises >6 weeks, without lasting benefit. currently utilizing cymbalta 60mg am and 30mg HS, otc ibuprofen, and tizanidine 8mg HS. pt failed to benefit from interventional therapy, does have a hx of significant infection with an intrathecal pump and scs trial. continues to endorse severe low back and left leg pain, numbness, tingling. pain today 2/10 increasing with standing, walking, pushing, pulling, housework, lifting, sleeping. pain mildly improved with sitting. cc:: CC: Anh Gatica NP Review of Systems ROS Status of ROS 10 or more systems reviewed and unremarkable except as noted in history and below Musculoskeletal Reports: back pain, extremity pain and joint pain PFSH [facility] Medical History (Updated 10/17/24 @ 09:09 by Anh Gatica NP) DDD (degenerative disc disease) Osteopenia ?M85.80 - Other specified disorders of bone density and structure, unspecified site (ICD-10) Back pain ?M54.9 - Dorsalgia, unspecified (ICD-10) Depression ?F32.A - Depression, unspecified (ICD-10) Spinal stenosis ?M48.00 - Spinal stenosis, site unspecified (ICD-10) Neuropathy ?G62.9 - Polyneuropathy, unspecified (ICD-10) Migraine ?G43.909 - Migraine, unspecified, not intractable, without status migrainosus (ICD-10) GERD (gastroesophageal reflux disease) ?K21.9 - Gastro-esophageal reflux disease without esophagitis (ICD-10) Delayed recovery from anesthesia Menopause ?Z78.0 - Asymptomatic menopausal state (ICD-10) Surgical History H/O lumbosacral spine surgery ?Z98.890 - Other specified postprocedural states (ICD-10) S/P insertion of intrathecal pump ?Z98.890 - Other specified postprocedural states (ICD-10) S/P cervical spinal fusion ?Z98.1 - Arthrodesis status (ICD-10) Family History Other Family history of colon cancer Family history of diabetes mellitus Social History Within the past year, how often did you have a drink containing alcohol: never Score interpretation: A score less than 3 is consistent with normal alcohol consumption. Smoking status: Current every day smoker What tobacco products do you use: cigarettes Packs per day: 1 Years smoked: 39 Smoking pack-years: 39.00 Non-prescribed substance use: denies use Highest level of school completed/degree received: high school graduate Meds Home Medications and Allergies Home Medications ?Medication ?Instructions ?Recorded ?Confirmed ?Type duloxetine 60 mg capsule,delayed 60 mg PO DAILY 08/17/23 08/27/24 History release (Cymbalta) rosuvastatin 5 mg tablet (Crestor) 5 mg PO DAILY 08/17/23 08/27/24 History cyclobenzaprine 10 mg tablet 10 mg PO TID PRN muscle spasm #60 06/11/24 08/27/24 Rx tabs gabapentin 600 mg tablet mg 08/21/24 History meloxicam 7.5 mg tablet mg 08/21/24 History gabapentin 600 mg tablet 600 mg PO TID #90 tabs 09/05/24 Rx duloxetine 30 mg capsule,delayed See Rx Instructions .Route 10/17/24 Rx release .COMPLEX #90 caps Allergies Allergy/AdvReac Type Severity Reaction Status Date / Time morphine AdvReac overdose Verified 08/27/24 08:02 Exam Constitutional Documenting provider has reviewed patient's vital signs: yes Common normals: no apparent distress, oriented x3, healthy appearing, alert and well nourished General appearance: cooperative HENMT Common normals: normocephalic, hearing grossly normal bilaterally and moist oral mucous membranes Head and scalp: normocephalic Eye Common normals: PERRL Pupil: PERRL Neck & C-Spine Common normals: full ROM General: normal visual inspection Chest Common normals: inspection of chest normal Respiratory Common normals: normal respiratory effort, no retractions and no use of accessory muscles Back & Pelvis Lumbar spine/lower back: ROM limited, pain with ROM, lumbar spinal tenderness Lumbar spinal tenderness location: L4 and L5, paraspinal muscle tenderness and straight leg raise positive left Sacroiliac joints: SI joints normal Other: strength 5/5 in BLE negative left richardson(patricks), gaenslens, thigh thrust, compression test positive lumbar facet loading L4-S1 decreased sensation to left L3,4,5 Neuro Common normals: oriented x3 Sensorium/orientation: alert Motor exam: no movement abnormalities noted Psych Common normals: mental status grossly normal, thought process normal, cooperative, affect normal, speech normal and activity/motor behavior normal Speech: normal speech Thought process: normal thought process Results Additional Findings Additional findings: If on a controlled substance or opioids, I have checked an [place]AR[place] report on this patient and there are no aberrancies noted in the prescribing history.??If on a controlled substance or opioid a drug screen was completed and reviewed within the last year, and if there has not been a drug screen completed we ordered one today to monitor higher risk, state monitored pain medication use. As part of providing excellent, safe, comprehensive care, the following was completed at our patient's visit: 1. A medication reconciliation and review to ensure accurate knowledge of current/active medications, including asking our patients to inform us about any layf-myd-kockywq medications or herbal remedies/nutritional supplements/alternative remedies. 2. A review to specifically ensure our patients have had annual screening for screening for depression, screening for tobacco use, and screening for unhealthy alcohol use. For concerning screenings had a discussion with the patient, provided patient education, and recommended follow-up with primary care provider when appropriate. If patient noted with a risk of falling, they received education on strength, gait, and balance training to prevent future risk of falling. Portions of this note may have been carried over from the previous visit and updated as appropriate. Please note this office utilizes paper charting in addition to the electronic medical record. A list of current medications, vitals, and PMH is available there as the clinical staff outside of myself do not have access to [employer] charting during the clinic day operations. As part of providing quality comprehensive care the current medications, vitals, and PMH were reviewed in the paper chart. Assessment and Plan Assessment and Plan (1) Lumbar stenosis with neurogenic claudication: (2) Lumbar spondylosis: (3) Sacroiliac joint dysfunction of left side: Assessment and Plan: symptoms improved on exam (4) Lumbar postlaminectomy syndrome: (5) Lumbar radiculopathy: Plan 54 year old female with chronic low back pain post lumbar fusion, pt reporting moderate to severe low back pain with numbness tingling to LLE. increase duloxetine 60mg BID. pt advised to f/u with NS for further evaluation. can consider [employer] scs trial for failed back syndrome. f/u 1 month to assess medication changes
== END 2024-12-12 09:07 | disposition home or self-care (01) ==
LOC: PM 09:06
PROVIDERS: PCP Internal Medicine; Visit Provider Nurse Practitioner
DX: M48.062 Spinal stenosis, lumbar region with neurogenic claudication (principal); M47.816 Spondylosis without myelopathy or radiculopathy, lumbar region; M53.3 Sacrococcygeal disorders, not elsewhere classified; M96.1 Postlaminectomy syndrome, not elsewhere classified; M54.16 Radiculopathy, lumbar region
CPT/HCPCS: G0463

== ENCOUNTER 2025-01-10 09:22 | Outpatient (OUT) | payer OTHER, SELFPAY ==
--- OUTSIDE RECORDS SUMMARY | 2024-06-22 04:30 | XMS_ITS ---
Author Organization [facility] Address [address] [place] [address] Care Team Providers Care General Operator Name Role Phone Nicole Collado Unavailable [phone] LatashamiloTejas Unavailable Unavailable REASON FOR VISIT LUMBAR [...] Active Encounters Encounter Location Date Provider Diagnosis [facility] Office [address] [place] [address] [place] [address] 06/22/2024 Nicole Collado Aftercare following surgery of the musculoskeletal system Z47.89 Assessments Encounter Date Diagnosis (ICD Code) Assessment Notes Treatment Notes Treatment Clinical Notes Section Notes 06/22/2024 Aftercare following surgery of the musculoskeletal system (ICD-10 - Z47.89) Plan Of Treatment Pending Test Test Name Order Date Lumbar spine, 4v flex ext - [id number] 2024 Progress Notes * RAHEEM DUNCAN MDOB: [birth year] (55 yo F)Acc No.[id number]:06/22/2024 Patient: RAHEEM GUERIN Provider: Taz Pineda MD, PhD :1970 A ge:54 Y S ex:Female Date:06/22/2024 Address:[facility] [address] [place] [address], [id number] Subjective: * Chief Complaints: * 1 . [...] day Objective: * Vitals: Assessment: * Assessment: 1. A ftercare following surgery of the musculoskeletal system - Z47.89 (Primary) ? Plan: * Treatment: Forms: * Images: * Electronic signature of Samir Collado MD, PHD on 01/10/2025 at 09:24 AM EDT Sign off status: Pending * Provider: Taz Pineda MD, PhD Date: 06/22/2024 Generated for Cecille quinn/Alecia/Brigetteitting on: 0 01/10/2025 09:24 AM EDT
--- OUTSIDE RECORDS SUMMARY | 2025-01-10 09:24 | XMS_ITS | Patient Health Record ---
Author Organization [facility] Address [address] [place] [address] Care Team Providers Care Air Compressor Operator Name Role Phone Nicole Collado Unavailable [phone] Tejas Newell Unavailable Unavailable xxSalima Agustin Unavailable [...] Problem Status W/U Status Risk Notes Problem 526089728 Arthrodesis status (Z98.1) Active confirmed Problem 5037288234 Other intervertebral disc displacement, lumbar region (M51.26) Active confirmed Problem 018842062 Radiculopathy, lumbar region (M54.16) Active confirmed Problem 149177722166850 Trochanteric bursitis, left hip (M70.62) Active confirmed Problem Dehiscence of surgical wound (58546487) Disruption of external operation (surgical) wound, not elsewhere classified, initial encounter (T81.31XA) Active confirmed Problem 23147905 Disruption of external operation (surgical) wound, not elsewhere classified, subsequent encounter (T81.31XD) Active confirmed Problem 29138352 DDD (degenerativ e disc disease), lumbar (M51.36) Active confirmed Problem 727596413 Urinary incontinence, unspecified type (R32) Active confirmed Problem 34018521 Spinal stenosis, lumbar region without neurogenic claudication (M48.061) Active confirmed Problem 539171381 Encounter for other orthopedic aftercare (Z47.89) Active confirmed Encounters Encounter Location Date Provider Diagnosis [facility] Office [address] [facility] [address] [address] [place] [address] [place] [address] 02/17/2024 [place]ima [place]orman[place]oard Trochanteric bursitis, left hip M70.62 Assessments Encounter [...] Date Lumbar spine, 4v flex ext - 17283 2023 Lumbar spine, 4v flex ext - 13981 2023 Lumbar spine 2v ap and lat - 58252 02/16 Lumbar spine 2v ap and lat - 15072 10/06 Lumbar spine 2v ap and lat - 03473 11/03 DME - Lumbar Support, Surgical OTS 08/25 SFS - Lumbar Spine PT Order, Isometrics & Strenghening w/Modalities as needed, 2-3 times per week for 6 weeks 07/15/2023 MRI : Lumbosacral Spine W/O Contrast - 7 8 11/11/2023 Future Test Test Name Order Date Chest 2 views - [id number] 08/03/2023 CBC 08/03/2023 Type and Screen Blood Type 08/03/2023 PT/PTT 08/03/2023 BMP 08/03/2023 MRSA (Bilateral Nares) PCR 08/03/2023 EKG 08/03/2023 Insurance Providers Payer Name Payer Address Payer Phone Subscriber Number Group Number Insured Name Patient Relationship to Insured Coverage Start Date Coverage End Date [employer] [address] [address] [place] [address] [id number] RAHEEM DUNCAN Self - patient is the insured Medical (General) History Medical History History ICD Code Osteoarthritis Anxiety Depression Surgical History Surgery Date(Month/Year) Lumbar wound I & D, closure 09/2023 L3-4 laminectomy, PSF 08/2023 Pain pump implant Fusion
--- OUTSIDE RECORDS SUMMARY | 2025-01-10 09:24 | XMS_ITS | Clinical Summary ---
Author Organization [facility] Address [address] [place] [address] Care Team Providers Care General Warehouse Worker Name Role Phone Tejas Newell MD Primary Care Provider Allergies No known active allergies Medications DULoxetine (Cymbalta) [address] capsule Take 60 mg by mouth in the morning. Active rosuvastatin (Crestor) 5 MG tablet Take 5 mg by mouth Daily 05/13/2024 Active celecoxib (CeleBREX) 200 MG capsule Take 200 mg by mouth in the morning and 200 mg before bedtime. 06/11/2024 Active Calcium Carb-Cholecalci ferol (Oyster Shell Calcium w/D) 500-5 MG-MCG tablet Take 1 tablet by mouth in the morning and 1 tablet in the evening. Take with meals. Active gabapentin enacarbil (Horizant) 600 MG tablet controlled-rele ase ER tablet Take 600 mg by mouth in the morning. Active ibuprofen 800 MG tablet Active linaCLOtide (Linzess) 145 MCG capsule Active Multiple Vitamins-Minera ls (MULTIVITAMIN ADULTS PO) Take 1 tablet by mouth in the morning. Active Resolved Problems Problem Noted Date Diagnosed Date Resolved Date Arthrodesis status 06/26/2024 Back pain 06/26/2024 06/26/2024 DDD (degenerative disc disease), lumbar 06/26/2024 06/26/2024 Dehiscence of operative wound 06/26/2024 06/26/2024 Encounter for other orthopedic aftercare 06/26/2024 06/26/2024 Former smoker 06/26/2024 06/26/2024 Trochanteric bursitis, left hip 06/26/2024 06/26/2024 Urinary incontinence 06/26/2024 025 Vaginal atrophy 07/29/2020 06/26/2024 Dyspareunia in female 06/17/20202024 Acute confusion 04/27/2018 06/26/2024 Numbness 04/27/2018 06/26/2024 Numbness of hand 04/27/2018 06/26/2024 Occipital neuralgia of left side 07/06/2017 06/26/2024 Overview (06/26/2024): Added automatically from request for surgery [id number] Chronic migraine without aur a, with intractable migraine, so stated, with status migrainosus 06/01/2017 06/26/2024 Overview (06/26/2024): Added automatically from request for surgery [id number] Cervical spondylosis without myelopathy 05/04/2017 06/26/2024 Cervical radiculopathy 08/23/201606/26 Overview (06/26/2024): Added automatically from request for surgery [id number] Fibromyalgia 08/16/2016 06/26/2024 Neck pain 12/01/2015 06/26/2024 Immunizations Immunization Administration Dates Next Due Influenza, High Dose Seasonal, Preservative Free 03/06/2020 Pfizer Purple Cap SARS-CoV-2 Vaccination 021,11/09/2020 Social History Tobacco Use Types Packs/Day Years Used Date Smoking Tobacco: Every Day Cigarettes Smokeless Tobacco: Never Tobacco Cessation:Ready to Q uit: Not Asked; Counseling Given: Not Answered Alcohol Use Standard Drinks/Week Comments Not Currently 0 (1 standard drink = 0.6 oz pur e alcohol) Comments Unknown Sex and Gender Information Value Date Recorded Sex Assigned at Not on file Legal Sex Female 4:06 PM EST Gender Identity Not on file Sexual Orientation Not on file Last Filed Vital Signs Vital Sign Reading Time Taken Comments Blood Pressure - - Pulse - - Temperature - - Respiratory Rate - - Oxygen Saturation - - Inhaled Oxygen Concentration - - Weight 77.1 kg (170 lb) 06/26/2024 9:30 AM EST Height 160 cm (5' 3 ) 06/26/2024 9:30 AM EST Body Mass Index 30.11 06/26/2024 9:30 AM EST Plan of Treatment Health Maintenance Due Date Last Done Comments CT Colonography 1969 Colonoscopy 1969 Colorectal Cancer Screening 1969 FIT-DNA 1969 FIT 1969 FOBT 1969 Sigmoidoscopy 1969 Pap Smear 1990 Mammogram 01/29/2021 01/30/2020, 12/19/2017 Influenza Vaccine (#1) 2025 03/06/2020 Cervical Cancer Screening 02/06/2025 HPV/Cotest 02/06/2025 02/07/2020 Insurance [employer] Care Teams General Warehouse Worker Relationship Specialty Start Date End Date Tejas Newell MD [facility] [place] [address] PCP - General Internal Medicine 06/26/24
--- OUTSIDE RECORDS SUMMARY | 2025-01-10 09:24 | XMS_ITS | Clinical Summary ---
Author Organization [facility] Address [facility] [facility], [address] [place] [address] Care Team Providers Care Pathology Manager Name Role Phone Tejas Newell DO Primary [...] on file Insurance [employer] Care Teams Pathology Manager Relationship Specialty Start Date End Date Tejas Newell DO [facility] [place] [address] PCP - General Internal Medicine 05/01/19
--- OUTSIDE RECORDS SUMMARY | 2025-01-10 09:28 | XMS_ITS | CCD ---
Author Organization [facility] Care Team Providers Care Photographer Scientific Name Role Phone MAGED MURDOCK Unavailable Unavailable LINDSEY AGUILAR (PA) Unavailable Unavail able MONICA YAN (EVIDENCE TECHNICIAN) Unavailable Unavailabl e TEJAS RICHARDSON JR [...] Unavailable Gisell CHONG, Christian Singletary Attending Unavailable [facility] Unavail able Gisell CHONG, Christian Singletary Attending Unavailable [facility] Unavail able Gisell CHONG, Christian Singletary Attending Unavailable [facility] Unavail able Zahira CHONG, Pavel Carr Attending Unavailable [facility] Unavail able [facility], [facility] Unavail able Yeison HENDRICKS, Hanane Finn Attending U navailable [facility] Unavail able Zahira CHONG, Pavel Carr Attending Unavailable [facility] CHONG, Nicole Neri Referring Unavailabl e Gisell CHONG, Christian Singletary Attending [facility] Unavail able Allergies Allergy Classification Reported [...] to moderate hearing loss above 4K Hz [facility] COMPLETE BLOOD COUNTon 04-24 Erythrocyte distribution width (RBC) [Ratio] 16.6 % High 11.5-15.0 [facility] Comment on above: Performed By: #### C KJ, MARKETING REPORTING ANALYST #### [facility] ([id number]) [address] [address] Hematocrit (Bld) [Volume fraction] 40.9 % Normal 35-47 [facility] Comment on above: Performed By: #### Jacqueline UNDERWOOD, MARKETING REPORTING ANALYST #### [facility] ([id number]) [address] [facility] [address] [place] [address] Hemoglobin (Bld) [Mass/Vol] 13.5 g/dL Normal 11.7-15.5 [facility] Comment on above: Performed By: #### C KJ, MARKETING REPORTING ANALYST #### [facility] ([id number]) [address], [facility] [address] [place] [address] MCH (RBC) [Entitic mass] 32.0 pg Normal 27-34 [facility] Comment on above: Performed By: #### C KJ, MARKETING REPORTING ANALYST #### [facility] ([id number]) [address] [place] [address] MCHC (RBC) [Mass/Vol] 33.1 g/dL Normal 32-36 [facility] Comment on above: Performed By: #### Jacqueline UNDERWOOD, MARKETING REPORTING ANALYST #### [facility] ([id number]) [address] [place] [address] MCV (RBC) [Entitic vol] 97 fL Normal 80-100 [facility] Comment on above: Performed By: #### C KJ, MARKETING REPORTING ANALYST #### [facility] ([id number]) [address] [address] Platelet mean volume (Bld) [Entitic vol] 8.8 fL Normal 7-12 [facility] Comment on above: Performed By: #### C KJ, MARKETING REPORTING ANALYST #### [facility] ([id number]) [address] [address] Platelets (Bld) [#/Vol] 328 10*3/uL Normal 150-450 [facility] Comment on above: Performed By: #### C KJ, MARKETING REPORTING ANALYST #### [facility] ([id number]) [address] [address] RBC COUNT 4.23 X10E12/L Normal 3.80-5.20 [facility] Comment on above: Performed By: #### Jacqueline UNDERWOOD, MARKETING REPORTING ANALYST #### [facility] ([id number]) [address] [address] WBC (Bld) [#/Vol] 9.0 10*3/uL Normal 4.0-11.0 [facility] Comment on above: Performed By: #### Jacqueline UNDERWOOD, MARKETING REPORTING ANALYST #### [facility] ([id number]) [address] [address] CREATININEon 04-24-2024 Creatinine [Mass/Vol] 0.72 mg/dL Normal 0.40-1.00 [facility] Comment on above: Result Comment: METH OD TRACEABLE TO IDMS STANDARD Performed By: #### Jacqueline UNDERWOOD, MARKETING REPORTING ANALYST #### [facility] ([id number]) [address] [address] eGFR (CKD-EPI) NON-RACE DEPENDENT >90 Normal >59 [facility] Comment on above: Result Comment: Reported eGFR is based on the CKD-EPI 2020 equation that does not use a race coefficient. Performed By: #### C KJ, MARKETING REPORTING ANALYST #### [facility] ([id number]) [address] [address] [place] [address] COMPLETE BLOOD COUNTon 04-11 Erythrocyte distribution width (RBC) [Ratio] 16.9 % High 11.5-15.0 [facility] Comment on above: Performed By: #### C BC, MARKETING REPORTING ANALYST #### [facility] ([id number]) [address] [address] [place] [address] Hematocrit (Bld) [Volume fraction] 41.0 % Normal 35-47 [facility] Comment on above: Performed By: #### C KJ, MARKETING REPORTING ANALYST #### [facility] ([id number]) [address] [address] [place] [address] Hemoglobin (Bld) [Mass/Vol] 13.8 g/dL Normal 11.7-15.5 [facility] Comment on above: Performed By: #### C KJ, MARKETING REPORTING ANALYST #### [facility] ([id number]) [address] [address] [place] [address] MCH (RBC) [Entitic mass] 32.3 pg Normal 27-34 [facility] Comment on above: Performed By: #### C KJ, MARKETING REPORTING ANALYST #### [facility] ([id number]) [address] [address] [place] [address] MCHC (RBC) [Mass/Vol] 33.5 g/dL Normal 32-36 [facility] Comment on above: Performed By: #### C KJ, MARKETING REPORTING ANALYST #### [facility] ([id number]) [address] [address] [place] [address] MCV (RBC) [Entitic vol] 96 fL Normal 80-100 [facility] Comment on above: Performed By: #### C KJ, MARKETING REPORTING ANALYST #### [facility] ([id number]) [address] [address] Platelet mean volume (Bld) [Entitic vol] 9.1 fL Normal 7-12 [facility] Comment on above: Performed By: #### C KJ, MARKETING REPORTING ANALYST #### [facility] ([id number]) [address] [address] Platelets (Bld) [#/Vol] 291 10*3/uL Normal 150-450 [facility] Comment on above: Performed By: #### C KJ, MARKETING REPORTING ANALYST #### [facility] ([id number]) [address] [address] RBC COUNT 4.27 X10E12/L Normal 3.80-5.20 [facility] Comment on above: Performed By: #### C KJ, MARKETING REPORTING ANALYST #### [facility] ([id number]) [address] [address] WBC (Bld) [#/Vol] 8.9 10*3/uL Normal 4.0-11.0 [facility] Comment on above: Performed By: #### Jacqueline UNDERWOOD, MARKETING REPORTING ANALYST #### [facility] ([id number]) [address] [address] CREATININEon 04-11-2024 Creatinine [Mass/Vol] 0.73 mg/dL Normal 0.40-1.00 [facility] Comment on above: Result Comment: METH OD TRACEABLE TO IDMS STANDARD Performed By: #### C KJ, MARKETING REPORTING ANALYST #### [facility] ([id number]) [address] [address] eGFR (CKD-EPI) NON-RACE DEPENDENT >90 Normal >59 [facility] Comment on above: Result Comment: Reported eGFR is based on the CKD-EPI 2020 equation that does not use a race coefficient. Performed By: #### C KJ, MARKETING REPORTING ANALYST #### [facility] ([id number]) [address] [place] [address] ASPIRATE CULTUREon Bacteria identified Aer cx Nom [...] <=1 F PIPERACIL/TAZOBACTAM S <=4 F Susceptible [facility] Comment on above: Performed By: #### 5 97-5 #### [facility] ([id number]) [address] [address] COMPLETE BLOOD COUNTon 04-04 Erythrocyte distribution width (RBC) [Ratio] 16.6 % High 11.5-15.0 [facility] Comment on above: Performed By: #### Jacqueline ARAUJO [facility], 1987-09, 56289-0 #### [facility] ([id number]) [address] [address] Hematocrit (Bld) [Volume fraction] 37.5 % Normal 35-47 [facility] Comment on above: Performed By: #### Jacqueline ARAUJO CMP, 1987-09, 45741-8 #### [facility] ([id number]) [address] [address] Hemoglobin (Bld) [Mass/Vol] 12.7 g/dL Normal 11.7-15.5 [facility] Comment on above: Performed By: #### Jacqueline ARAUJO CMP, 1987-09, 29582-2 #### [facility] ([id number]) [address] [address] [place] [address] MCH (RBC) [Entitic mass] 31.6 pg Normal 27-34 [facility] Comment on above: Performed By: #### Jacqueline ARAUJO CMP, 1987-09, 69238-3 #### [facility] ([id number]) [address] [place] [address] MCHC (RBC) [Mass/Vol] 33.8 g/dL Normal 32-36 [facility] Comment on above: Performed By: #### Jacqueline ARAUJO [facility], 1987-09, 72687-1 #### [facility] ([id number]) [address] [place] [address] MCV (RBC) [Entitic vol] 94 fL Normal 80-100 [facility] Comment on above: Performed By: #### Jacqueline ARAUJO [facility], 1987-09, 95866-5 #### [facility] ([id number]) [address], [address] [place] [address] Platelet mean volume (Bld) [Entitic vol] 8.9 fL Normal 7-12 [facility] Comment on above: Performed By: #### Jacqueline ARAUJO [facility], 1987-09, 84601-3 #### [facility] ([id number]) [address] [place] [address] Platelets (Bld) [#/Vol] 230 10*3/uL Normal 150-450 [facility] Comment on above: Performed By: #### Jacqueline ARAUJO CMP, 1987-09, 66055-2 #### [facility] ([id number]) [address] [place] [address] RBC COUNT 4.01 X10E12/L Normal 3.80-5.20 [facility] Comment on above: Performed By: #### Jacqueline ARAUJO CMP, 1987-09, 69518-7 #### [facility] ([id number]) [address], [address] [place] [address] WBC (Bld) [#/Vol] 9.1 10*3/uL Normal 4.0-11.0 [facility] Comment on above: Performed By: #### C ARANZA ARAUJO, 1988-09, 16054-6 #### [facility] ([id number]) [address] [address] CREATININEon 04-04-2024 Creatinine [Mass/Vol] 0.60 mg/dL Normal 0.40-1.00 [facility] Comment on above: Result Comment: METH OD TRACEABLE TO IDMS STANDARD Performed By: #### C ARANZA ARAUJO, 1988-09, 01782-0 #### [facility] ([id number]) [address] [address] eGFR (CKD-EPI) NON-RACE DEPENDENT >90 Normal >59 [facility] Comment on above: Result Comment: Reported eGFR is based on the CKD-EPI 2020 equation that does not use a race coefficient. Performed By: #### C ARANZA ARAUJO, 28703-9 #### [facility] ([id number]) [address] [address] COMPLETE BLOOD COUNTon 03-27 Erythrocyte distribution width (RBC) [Ratio] 17.2 % High 11.5-15.0 [facility] Comment on above: Performed By: #### C ARANZA ARAUJO, 49193-2 #### [facility] ([id number]) [address] [address] Hematocrit (Bld) [Volume fraction] 40.0 % Normal 35-47 [facility] Comment on above: Performed By: #### C ARANZA ARAUJO, 19368-9 #### [facility] ([id number]) [address] [address] Hemoglobin (Bld) [Mass/Vol] 13.5 g/dL Normal 11.7-15.5 [facility] Comment on above: Performed By: #### C VAN, CMP, 1987-09, 65694-5 #### [facility] ([id number]) [address] [place] [address] MCH (RBC) [Entitic mass] 31.7 pg Normal 27-34 [facility] Comment on above: Performed By: #### Jacqueline ARAUJO [facility], 1987-09, 98285-4 #### [facility] ([id number]) [address] [place] [address] MCHC (RBC) [Mass/Vol] 33.7 g/dL Normal 32-36 [facility] Comment on above: Performed By: #### Jacqueline ARAUJO CMP, 1987-09, 74079-3 #### [facility] ([id number]) [address], [address] [place] [address] MCV (RBC) [Entitic vol] 94 fL Normal 80-100 [facility] Comment on above: Performed By: #### Jacqueline ARAUJO [facility], 1987-09, 38779-2 #### [facility] ([id number]) [address], [address] [place] [address] Platelet mean volume (Bld) [Entitic vol] 8.5 fL Normal 7-12 [facility] Comment on above: Performed By: #### Jacqueline ARAUJO CMP, 1987-09, 55911-7 #### [facility] ([id number]) [address], [address] [place] [address] Platelets (Bld) [#/Vol] 332 10*3/uL Normal 150-450 [facility] Comment on above: Performed By: #### Jacqueline ARAUJO CMP, 1987-09, 01227-5 #### [facility] ([id number]) [address], [address] [place] [address] RBC COUNT 4.26 X10E12/L Normal 3.80-5.20 [facility] Comment on above: Performed By: #### C ARANZA ARAUJO, 1988-09, 51224-6 #### [facility] ([id number]) [address] [address] WBC (Bld) [#/Vol] 10.4 10*3/uL Normal 4.0-11.0 [facility] Comment on above: Performed By: #### C ARANZA ARAUJO, 1988-09, 57627-6 #### [facility] ([id number]) [address] [address] CREATININEon 03-27-2024 Creatinine [Mass/Vol] 0.69 mg/dL Normal 0.40-1.00 [facility] Comment on above: Result Comment: METH OD TRACEABLE TO IDMS STANDARD Performed By: #### C ARANZA ARAUJO, 1988-09, 81069-5 #### [facility] ([id number]) [address] [address] eGFR (CKD-EPI) NON-RACE DEPENDENT >90 Normal >59 [facility] Comment on above: Result Comment: Reported eGFR is based on the CKD-EPI 2020 equation that does not use a race coefficient. Performed By: #### C ARANZA ARAUJO, 1988-09, 53204-0 #### [facility] ([id number]) [address] [address] COMPLETE BLOOD COUNTon 03-20 Erythrocyte distribution width (RBC) [Ratio] 19.0 % High 11.5-15.0 [facility] Comment on above: Performed By: #### C BC, MARKETING REPORTING ANALYST #### [facility] ([id number]) [address] [address] Hematocrit (Bld) [Volume fraction] 37.9 % Normal 35-47 [facility] Comment on above: Performed By: #### C BC, MARKETING REPORTING ANALYST #### [facility] ([id number]) [address] [place] [address] Hemoglobin (Bld) [Mass/Vol] 12.6 g/dL Normal 11.7-15.5 [facility] Comment on above: Performed By: #### C KJ, MARKETING REPORTING ANALYST #### [facility] ([id number]) [address] [place] [address] MCH (RBC) [Entitic mass] 31.8 pg Normal 27-34 [facility] Comment on above: Performed By: #### C KJ, MARKETING REPORTING ANALYST #### [facility] ([id number]) [address] [place] [address] MCHC (RBC) [Mass/Vol] 33.2 g/dL Normal 32-36 [facility] Comment on above: Performed By: #### C KJ, MARKETING REPORTING ANALYST #### [facility] ([id number]) [address] [place] [address] MCV (RBC) [Entitic vol] 96 fL Normal 80-100 [facility] Comment on above: Performed By: #### Jacquelnie UNDERWOOD, MARKETING REPORTING ANALYST #### [facility] ([id number]) [address] [place] [address] Platelet mean volume (Bld) [Entitic vol] 8.4 fL Normal 7-12 [facility] Comment on above: Performed By: #### Jacqueline UNDERWOOD, MARKETING REPORTING ANALYST #### [facility] ([id number]) [address] [place] [address] Platelets (Bld) [#/Vol] 343 10*3/uL Normal 150-450 [facility] Comment on above: Performed By: #### C KJ, MARKETING REPORTING ANALYST #### [facility] ([id number]) [address] [place] [address] RBC COUNT 3.95 X10E12/L Normal 3.80-5.20 [facility] Comment on above: Performed By: #### C KJ, MARKETING REPORTING ANALYST #### [facility] ([id number]) [address] [address] WBC (Bld) [#/Vol] 7.6 10*3/uL Normal 4.0-11.0 [facility] Comment on above: Performed By: #### C KJ, MARKETING REPORTING ANALYST #### [facility] ([id number]) [address] [address] CREATININEon 03-20-2024 Creatinine [Mass/Vol] 0.70 mg/dL Normal 0.40-1.00 [facility] Comment on above: Result Comment: METH OD TRACEABLE TO IDMS STANDARD Performed By: #### C KJ, MARKETING REPORTING ANALYST #### [facility] ([id number]) [address] [address] eGFR (CKD-EPI) NON-RACE DEPENDENT >90 Normal >59 [facility] Comment on above: Result Comment: Reported eGFR is based on the CKD-EPI 2020 equation that does not use a race coefficient. Performed By: #### C KJ, MARKETING REPORTING ANALYST #### [facility] ([id number]) [address] [address] CBC AND AUTO DIFFon 03-16-20 24 ABSOLUTE BASOPHIL 0.0 X10E9/L Normal 0.0-0.2 [facility] Comment on above: Performed By: #### C ARANZA ARAUJO, 1988-09 #### [facility] ([id number]) [address] [address] ABSOLUTE NEUTROPHIL 5.5 X10E9/L Normal 1.5-6.6 [facility] Comment on above: Performed By: #### C VAN CMP, 1987-09 #### [facility] ([id number]) [address] [address] Basophils/100 WBC (Bld) 0.4 % Normal [facility] Comment on above: Performed By: #### Jacqueline ARAUJO [facility], 1987-09 #### [facility] ([id number]) [address] [address] [place] [address] Eosinophils (Bld) [#/Vol] 0.1 10*3/uL Normal 0.0-0.4 [facility] Comment on above: Performed By: #### Jacqueline ARAUJO CMP, 1987-09 #### [facility] ([id number]) [address] [facility] [address] [place] [address] Eosinophils/100 WBC (Bld) 1.9 % Normal [facility] Comment on above: Performed By: #### Jacqueline ARAUJO CMP, 1987-09 #### [facility] ([id number]) [address], [facility] [address] [place] [address] Erythrocyte distribution width (RBC) [Ratio] 18.1 % High 11.5-15.0 [facility] Comment on above: Performed By: #### Jacqueline ARAUJO CMP, 1987-09 #### [facility] ([id number]) [address], [facility] [address] [place] [address] Hematocrit (Bld) [Volume fraction] 39.2 % Normal 35-47 [facility] Comment on above: Performed By: #### Jacqueline ARAUJO CMP, 1987-09 #### [facility] ([id number]) [address] [place] [address] Hemoglobin (Bld) [Mass/Vol] 13.4 g/dL Normal 11.7-15.5 [facility] Comment on above: Performed By: #### Jacqueline ARAUJO CMP, 1987-09 #### [facility] ([id number]) [address] [address] [place] [address] Lymphocytes (Bld) [#/Vol] 1.7 10*3/uL Normal 1.0-3.5 [facility] Comment on above: Performed By: #### Jacqueline ARAUJO CMP, 1987-09 #### [facility] ([id number]) [address] [place] [address] Lymphocytes/100 WBC (Bld) 22.1 % Normal [facility] Comment on above: Performed By: #### Jacqueline ARAUJO CMP, 1987-09 #### [facility] ([id number]) [address] [place] [address] MCH (RBC) [Entitic mass] 32.2 pg Normal 27-34 [facility] Comment on above: Performed By: #### Jacqueline ARAUJO CMP, 1987-09 #### [facility] ([id number]) [address], [facility] [address] [place] [address] MCHC (RBC) [Mass/Vol] 34.2 g/dL Normal 32-36 [facility] Comment on above: Performed By: #### Jacqueline ARAUJO CMP, 1987-09 #### [facility] ([id number]) [address], [facility] [address] [place] [address] MCV (RBC) [Entitic vol] 94 fL Normal 80-100 [facility] Comment on above: Performed By: #### Jacqueline ARAUJO [facility], 1987-09 #### [facility] ([id number]) [address] [place] [address] Monocytes (Bld) [#/Vol] 0.5 10*3/uL Normal 0-0.9 [facility] Comment on above: Performed By: #### Jacqueline ARAUJO CMP, 1987-09 #### [facility] ([id number]) [address] [place] [address] Monocytes/100 WBC (Bld) 6.5 % Normal [facility] Comment on above: Performed By: #### Jacqueline ARAUJO CMP, 1987-09 #### [facility] ([id number]) [address] [place] [address] Neutrophils/100 WBC (Bld) 69.1 % Normal [facility] Comment on above: Performed By: #### Jacqueline ARAUJO CMP, 1987-09 #### [facility] ([id number]) [address], [facility] [address] [place] [address] Platelet mean volume (Bld) [Entitic vol] 8.1 fL Normal 7-12 [facility] Comment on above: Performed By: #### Jacqueline ARAUJO CMP, 1987-09 #### [facility] ([id number]) [address], [facility] [address] [place] [address] Platelets (Bld) [#/Vol] 358 10*3/uL Normal 150-450 [facility] Comment on above: Performed By: #### Jacqueline ARAUJO CMP, 1987-09 #### [facility] ([id number]) [address], [address] [place] [address] RBC COUNT 4.17 X10E12/L Normal 3.80-5.20 [facility] Comment on above: Performed By: #### Jacqueline ARAUJO CMP, 1987-09 #### [facility] ([id number]) [address] [facility] [address] [place] [address] WBC (Bld) [#/Vol] 7.9 10*3/uL Normal 4.0-11.0 [facility] Comment on above: Performed By: #### Jacqueline ARAUJO CMP, 1987-09 #### [facility] ([id number]) [address] [place] [address] COMPREHENSIVE METABOLIC PANE Alexandru 03-16-2024 Albumin [Mass/Vol] 3.4 g/dL Normal 3.2-5.3 [facility] Comment on above: Performed By: #### Jacqueline ARAUJO CMP, 1987-09 #### [facility] ([id number]) [address] [place] [address] ALP [Catalytic activity/Vol] 52 U/L Normal 39-130 [facility] Comment on above: Performed By: #### Jacqueline ARAUJO CMP, 1987-09 #### [facility] ([id number]) [address], [address] [place] [address] ALT [Catalytic activity/Vol] 12 U/L Normal 0-31 [facility] Comment on above: Performed By: #### Jacqueline ARAUJO CMP, 1987-09 #### [facility] ([id number]) [address] [place] [address] Anion gap [Moles/Vol] 11 mmol/L Normal 5-15 [facility] Comment on above: Performed By: #### Jacqueline ARAUJO CMP, 1987-09 #### [facility] ([id number]) [address], [address] [place] [address] AST [Catalytic activity/Vol] 17 U/L Normal 0-41 [facility] Comment on above: Performed By: #### Jacqueline ARAUJO CMP, 1987-09 #### [facility] ([id number]) [address], [address] [place] [address] Bilirubin [Mass/Vol] 0.4 mg/dL Normal 0.3-1.2 [facility] Comment on above: Performed By: #### Jacqueline ARAUJO CMP, 1987-09 #### [facility] ([id number]) [address], [address] [place] [address] Calcium [Mass/Vol] 9.7 mg/dL Normal 8.5-10.5 [facility] Comment on above: Performed By: #### Jacqueline ARAUJO CMP, 1987-09 #### [facility] ([id number]) [address] [place] [address] Chloride [Moles/Vol] 109 mmol/L Normal 98-109 [facility] Comment on above: Performed By: #### Jacqueline ARAUJO CMP, 1987-09 #### [facility] ([id number]) [address] [place] [address] CO2 [Moles/Vol] 20 mmol/L Low 22-32 [facility] Comment on above: Performed By: #### C ARANZA ARAUJO, 1987-09 #### [facility] ([id number]) [address] [facility] [address] [place] [address] Creatinine [Mass/Vol] 0.75 mg/dL Normal 0.40-1.00 [facility] Comment on above: Result Comment: METH OD TRACEABLE TO IDMS STANDARD Performed By: #### C ARANZA ARAUJO, 1987-09 #### [facility] ([id number]) [address] [place] [address] eGFR (CKD-EPI) NON-RACE DEPENDENT >90 Normal >59 [facility] Comment on above: Result Comment: Reported eGFR is based on the CKD-EPI 2020 equation that does not use a race coefficient. Performed By: #### C ARANZA ARAUJO, 1987-09 #### [facility] ([id number]) [address] [place] [address] Glucose [Mass/Vol] 88 mg/dL Normal 65-99 [facility] Comment on above: Performed By: #### Jacqueline ARAUJO CMP, 1987-09 #### [facility] ([id number]) [address] [address] [place] [address] Potassium [Moles/Vol] 3.9 mmol/L Normal 3.5-5.0 [facility] Comment on above: Performed By: #### Jacqueline ARAUJO CMP, 1987-09 #### [facility] ([id number]) [address] [address] [place] [address] Protein [Mass/Vol] 6.4 g/dL Normal 6.0-8.0 [facility] Comment on above: Performed By: #### Jacqueline ARAUJO CMP, 1987-09 #### [facility] ([id number]) [address] [place] [address] Sodium [Moles/Vol] 140 mmol/L Normal 134-146 [facility] Comment on above: Performed By: #### Jacqueline ARAUJO [facility], 1987-09 #### [facility] ([id number]) [address] [place] [address] Urea nitrogen [Mass/Vol] 9 mg/dL Normal 5-23 [facility] Comment on above: Performed By: #### Jacqueline ARAUJO [facility], 1987-09 #### [facility] ([id number]) [address], [facility] [address] [place] [address] CRP [Mass/Vol]on 03-16-2024 C REACTIVE PROTEIN 0.6 mg/dL Normal 0.000-0.744 [facility] Comment on above: Performed By: #### Jacqueline ARAUJO [facility], 1987-09 #### [facility] ([id number]) [address], [facility] [address] [place] [address] BLOOD CULTUREon 03-13-2024 Bacteria identified Aer cx Nom (Bld) CULTURE RESULTS NO GROWTH 5 DAYS Normal [facility] Bacteria identified Aer cx Nom (Bld) CULTURE RESULTS NO GROWTH 5 DAYS Normal [facility] CBC AND AUTO DIFFon 03-13-20 ABSOLUTE BASOPHIL 0.0 X10E9/L Normal 0.0-0.2 [facility] Comment on above: Performed By: #### Jacqueline ARAUJO CMP, 1987-09, 63296-7 #### [facility] ([id number]) [address] [place] [address] ABSOLUTE NEUTROPHIL 5.4 X10E9/L Normal 1.5-6.6 [facility] Comment on above: Performed By: #### Jacqueline ARAUJO CMP, 1987-09, 05147-5 #### [facility] ([id number]) [address], [address] [place] [address] Basophils/100 WBC (Bld) 0.4 % Normal [facility] Comment on above: Performed By: #### Jacqueline ARAUJO [facility], 1987-09, 83007-1 #### [facility] ([id number]) [address] [place] [address] Eosinophils (Bld) [#/Vol] 0.1 10*3/uL Normal 0.0-0.4 [facility] Comment on above: Performed By: #### Jacqueline ARAUJO [facility], 1987-09, 73545-5 #### [facility] ([id number]) [address] [place] [address] Eosinophils/100 WBC (Bld) 1.6 % Normal [facility] Comment on above: Performed By: #### Jacqueline ARAUJO [facility], 1987-09, 90692-3 #### [facility] ([id number]) [address] [place] [address] Erythrocyte distribution width (RBC) [Ratio] 18.4 % High 11.5-15.0 [facility] Comment on above: Performed By: #### Jacqueline ARAUJO [facility], 1987-09, 42877-6 #### [facility] ([id number]) [address], [facility] [address] [place] [address] Hematocrit (Bld) [Volume fraction] 39.0 % Normal 35-47 [facility] Comment on above: Performed By: #### Jacqueline ARAUJO [facility], 24967-5 #### [facility] ([id number]) [address], [facility] [address] [place] [address] Hemoglobin (Bld) [Mass/Vol] 13.7 g/dL Normal 11.7-15.5 [facility] Comment on above: Performed By: #### Jacqueline ARAUJO [facility], 99239-6 #### [facility] ([id number]) [address] [address] [place] [address] Lymphocytes (Bld) [#/Vol] 1.9 10*3/uL Normal 1.0-3.5 [facility] Comment on above: Performed By: #### Jacqueline ARAUJO CMP, 1987-09, 83908-4 #### [facility] ([id number]) [address] [address] [place] [address] Lymphocytes/100 WBC (Bld) 24.0 % Normal [facility] Comment on above: Performed By: #### Jacqueline ARAUJO [facility], 1987-09, 43737-0 #### [facility] ([id number]) [address] [address] [place] [address] MCH (RBC) [Entitic mass] 32.5 pg Normal 27-34 [facility] Comment on above: Performed By: #### Jacqueline ARAUJO [facility], 1987-09, 20332-2 #### [facility] ([id number]) [address] [address] [place] [address] MCHC (RBC) [Mass/Vol] 35.0 g/dL Normal 32-36 [facility] Comment on above: Performed By: #### Jacqueline ARAUJO CMP, 1987-09, 94148-8 #### [facility] ([id number]) [address] [address] [place] [address] MCV (RBC) [Entitic vol] 93 fL Normal 80-100 [facility] Comment on above: Performed By: #### Jacqueline ARAUJO CMP, 1987-09, 42495-2 #### [facility] ([id number]) [address] [address] [place] [address] Monocytes (Bld) [#/Vol] 0.4 10*3/uL Normal 0-0.9 [facility] Comment on above: Performed By: #### Jacqueline ARAUJO CMP, 1987-09, 30604-4 #### [facility] ([id number]) [address] [place] [address] Monocytes/100 WBC (Bld) 4.7 % Normal [facility] Comment on above: Performed By: #### Jacqueline ARAUJO CMP, 1987-09, 47858-0 #### [facility] ([id number]) [address] [place] [address] Neutrophils/100 WBC (Bld) 69.3 % Normal [facility] Comment on above: Performed By: #### Jacqueline ARAUJO [facility], 1987-09, 26273-9 #### [facility] ([id number]) [address] [place] [address] Platelet mean volume (Bld) [Entitic vol] 7.9 fL Normal 7-12 [facility] Comment on above: Performed By: #### Jacqueline ARAUJO CMP, 1987-09, 54006-4 #### [facility] ([id number]) [address] [place] [address] Platelets (Bld) [#/Vol] 376 10*3/uL Normal 150-450 [facility] Comment on above: Performed By: #### Jacqueline ARAUJO CMP, 1987-09, 81469-4 #### [facility] ([id number]) [address], [address] [place] [address] RBC COUNT 4.20 X10E12/L Normal 3.80-5.20 [facility] Comment on above: Performed By: #### Jacqueline ARAUJO CMP, 1987-09, 50970-5 #### [facility] ([id number]) [address] [place] [address] WBC (Bld) [#/Vol] 7.8 10*3/uL Normal 4.0-11.0 [facility] Comment on above: Performed By: #### Jacqueline ARAUJO CMP, 1987-09, 07474-7 #### [facility] ([id number]) [address], [address] [place] [address] COMPREHENSIVE METABOLIC PANE Alexandru 03-13-2024 Albumin [Mass/Vol] 3.4 g/dL Normal 3.2-5.3 [facility] Comment on above: Performed By: #### C [facility], 1987-09, 42002-9 #### [facility] ([id number]) [address] [place] [address] ALP [Catalytic activity/Vol] 57 U/L Normal 39-130 [facility] Comment on above: Performed By: #### C [facility], 1987-09, 03172-4 #### [facility] ([id number]) [address] [place] [address] ALT [Catalytic activity/Vol] 14 U/L Normal 0-31 [facility] Comment on above: Performed By: #### C [facility], 1987-09, 91767-3 #### [facility] ([id number]) [address] [place] [address] Anion gap [Moles/Vol] 8 mmol/L Normal 5-15 [facility] Comment on above: Performed By: #### C [facility], 1987-09, 99610-8 #### [facility] ([id number]) [address] [place] [address] AST [Catalytic activity/Vol] 19 U/L Normal 0-41 [facility] Comment on above: Performed By: #### [facility], 92829-1 #### [facility] ([id number]) [address], [address] [place] [address] Bilirubin [Mass/Vol] 0.4 mg/dL Normal 0.3-1.2 [facility] Comment on above: Performed By: #### C VAN CMP, 1987-09, 68212-1 #### [facility] ([id number]) [address], [address] [place] [address] Calcium [Mass/Vol] 9.3 mg/dL Normal 8.5-10.5 [facility] Comment on above: Performed By: #### [facility], 1987-09, 41636-4 #### [facility] ([id number]) [address] [place] [address] Chloride [Moles/Vol] 105 mmol/L Normal 98-109 [facility] Comment on above: Performed By: #### [facility], 1987-09, 68230-3 #### [facility] ([id number]) [address] [place] [address] CO2 [Moles/Vol] 28 mmol/L Normal 22-32 [facility] Comment on above: Performed By: #### [facility], 1987-09, 21530-9 #### [facility] ([id number]) [address], [facility] [address] [place] [address] Creatinine [Mass/Vol] 0.82 mg/dL Normal 0.40-1.00 [facility] Comment on above: Result Comment: METH OD TRACEABLE TO IDMS STANDARD Performed By: #### C [facility], 1987-09, 30571-2 #### [facility] ([id number]) [address] [place] [address] GFR/1.73 sq M.predicted among non-blacks MDRD (S/P/Bld) [Vol rate/Area] 84 mL/min/{1.73_m2} Normal >59 [facility] Comment on above: Result Comment: Reported eGFR is based on the CKD-EPI 2020 equation that does not use a race coefficient. Performed By: #### [facility], 1987-09, 29666-8 #### [facility] ([id number]) [address] [place] [address] Glucose [Mass/Vol] 97 mg/dL Normal 65-99 [facility] Comment on above: Performed By: #### [facility], 1987-09, 85320-3 #### [facility] ([id number]) [address] [place] [address] Potassium [Moles/Vol] 3.1 mmol/L Low 3.5-5.0 [facility] Comment on above: Performed By: #### [facility], 29617-2 #### [facility] ([id number]) [address] [place] [address] Protein [Mass/Vol] 6.3 g/dL Normal 6.0-8.0 [facility] Comment on above: Performed By: #### Jacqueline ARAUJO [facility], 93568-2 #### [facility] ([id number]) [address] [place] [address] Sodium [Moles/Vol] 141 mmol/L Normal 134-146 [facility] Comment on above: Performed By: #### Jacqueline ARAUJO CMP, 02905-0 #### [facility] ([id number]) [address] [place] [address] Urea nitrogen [Mass/Vol] 8 mg/dL Normal 5-23 [facility] Comment on above: Performed By: #### [facility], 28965-7 #### [facility] ([id number]) [address] [place] [address] CRP [Mass/Vol]on 03-13-2024 C REACTIVE PROTEIN 0.7 mg/dL Normal 0.000-0.744 [facility] Comment on above: Performed By: #### Jacqueline ARAUJO CMP, 33596-4 #### [facility] ([id number]) [address] [place] [address] ESR Photometric method (Bld) [Velocity]on 03-13-2024 ESR, ERYTHROCYTE SEDIMENTATION RATE 39 mm/h High 0-30 [facility] Comment on above: Performed By: #### C BCA, CMP, 1987-09, 25436-8 #### [facility] ([id number]) [address] [place] [address] ASPIRATE CULTUREon Bacteria identified Aer cx Nom [...] <=1 F PIPERACIL/TAZOBACTAM S <=4 F Susceptible [facility] Comment on above: Performed By: #### 5 97-5 #### [facility] ([id number]) [address] [place] [address] AND DIFFon 2023 BODY FLUID COMMENT Interpreta tion--- ----- Normal [facility] Comment on above: Result Comment: Refe rence values for this fluid type are undefined, as fluid accumulation is considered abnormal. Performed By: #### B FCT #### [facility] ([id number]) [address] [place] [address] FLUID CLARITY CLOUDY Normal [facility] Comment on above: Performed By: #### B FCT #### [facility] ([id number]) [address] [place] [address] FLUID COLOR HONG Normal [facility] Comment on above: Performed By: #### B FCT #### [facility] ([id number]) [address] [place] [address] FLUID LYMPHOCYTE 5 % Normal [facility] Comment on above: Performed By: #### B FCT #### [facility] ([id number]) [address] [place] [address] FLUID NEUTROPHILS 75 % Normal [facility] Comment on above: Performed By: #### B FCT #### [facility] ([id number]) [address] [place] [address] [place] [address] /uL Normal [facility] Comment on above: Performed By: #### B FCT #### [facility] ([id number]) [address] [place] [address] FLUID SPECIMEN TYPE ASPIRATE Normal [facility] Comment on above: Result Comment: ABDO MISAEL PUMP POCKET Performed By: #### B FCT #### [facility] ([id number]) [address] [place] [address] MACROPHAGES 20 % Normal [facility] Comment on above: Performed By: #### B FCT #### [facility] ([id number]) [address] [place] [address] 4888 /uL Normal [facility] Comment on above: Performed By: #### B FCT #### [facility] ([id number]) [address] [place] [address] Infectious Disease Office/Cl inic Noteon 11-10-2023 Infectious Disease Office/Clinic Note Assessment/Plan 1. Postoperative wound infection Plan: Unfortunately there is no other good oral options for coverage of Pseudomonas. She is advised to stop taking doxycycline as this will help her symptoms. I did call Dr. Montes his PA Hammad called back. She advised me to send patient back to [facility]. This is where she had her surgery done. She may need to MRI possible washout. This service writer did call [facility] talk to charge nurse Dagmar gave her [...] and fusion by Dr. Saint Gregory at [facility]. She was discharged home on the . She was discharged on cephalexin for 10 days. She was taken back to surgery on October 11 due to persistent drainage and wound dehiscence. She had a fluid collection which was most consistent with seroma/infection . The surgery was done in [place]. Cultures grew Pseudomonas and she was discharged [...] data Procedure/Surgical History Neck Surgery Stomach Pain [facility] (09/02/2023) incision & drainage (10/12/2023) Medications cyclobenzaprine 10 mg oral tablet, 45 EA, 0 Refill(s), TAKE 1 TABLET BY MOUTH THREE TIMES DAILY NEEDED FOR MUSCLE SPASMS DULoxetine 60 mg oral delayed release capsule, 90 EA, 0 Refill(s), TAKE 1 CAPSULE BY MOUTH EVERY DAY ibuprofen 800 mg oral tablet, 270 EA, 0 Refill(s) Potassium Chloride ( (more content not included)... Normal [facility] .eGFRon 10-26-2023 GFR/1.73 sq M.predicted MDRD (S/P/Bld) [Vol rate/Area] mL/min/{1.73_m2} Normal >=60 [facility] Comment on above: Order Comment: Order added by Discern rule Result Comment: [facility] have implemented the eGFR calculation approach [...] years Performed By: #### E GFR #### [facility] [address] [place] [address] Basic Metabolic Profileon Anion gap [Moles/Vol] 10 mmol/L Normal -12 [facility] Comment on above: Performed By: #### C [id number] #### [facility] [address] [place] [address] Calcium [Mass/Vol] 9.4 mg/dL Normal 8.5-10.[address] [facility] Comment on above: Performed By: #### C [id number] #### [facility] [address] [place] [address] Chloride [Moles/Vol] 101 mmol/L Normal 98-110 [facility] Comment on above: Performed By: #### C D:[id number] #### [address] [address] CO2 [Moles/Vol] 26 mmol/L Normal 22-32 [facility] Comment on above: Performed By: #### C D:[id number] #### [address] [address] Creatinine [Mass/Vol] 0.81 mg/dL Normal 0.44-1.03 [facility] Comment on above: Performed By: #### C [id number] #### [address] [address] Glucose [Mass/Vol] 82 mg/dL Normal 70-[address] [facility] Comment on above: Performed By: #### C [id number] #### [address] [address] Potassium [Moles/Vol] 2.7 mmol/L Low 3.4-4.8 [facility] Comment on above: Performed By: #### C [id number] #### [address] [address] Sodium [Moles/Vol] 137 mmol/L Normal 133-[address] [facility] Comment on above: Performed By: #### C D:[id number] #### [address] [address] Urea nitrogen [Mass/Vol] 15 mg/dL Normal 8-26 [facility] Comment on above: Performed By: #### C D:[id number] #### [address] [address] Urea nitrogen/Creatinin e [Mass ratio] 18.5 mg/mg Normal 10.0-20.0 [facility] Comment on above: Performed By: #### C D:[id number] #### [address] [address] CBC w/ Diffon 10-26-2023 Erythrocyte distribution width (RBC) [Ratio] 15.2 % High 11.6-14.8 [facility] Comment on above: Performed By: #### C BC #### [place] [id number] Hematocrit (Bld) [Volume fraction] 38.9 % Normal 36.0-46.0 [facility] Comment on above: Performed By: #### C BC #### [place] [id number] Hemoglobin (Bld) [Mass/Vol] 12.9 g/dL Normal 12.0-16.0 [facility] Comment on above: Performed By: #### C BC #### [place] [id number] MCH (RBC) [Entitic mass] 31.5 pg Normal 27.0-35.0 [facility] Comment on above: Performed By: #### C BC #### [place] [id number] MCHC 33.1 % Normal 31.0-37.0 [facility] Comment on above: Performed By: #### C BC #### [place] [id number] MCV (RBC) [Entitic vol] 95.0 fL Normal 80.0-100.0 [facility] Comment on above: Performed By: #### C BC #### [place] [id number] Platelet 367 x10*3/mcL Normal 150-450 [facility] Comment on above: Performed By: #### C BC #### [address] [address] Platelet mean volume (Bld) [Entitic vol] 7.7 fL Normal 6.7-10.6 [facility] Comment on above: Performed By: #### C BC #### [address] [address] RBC 4.10 x10*6/mcL Normal 3.80-5.20 [facility] Comment on above: Performed By: #### C BC #### [address] [address] WBC 12.3 x10*3/mcL High 4.5-11.0 [facility] Comment on above: Performed By: #### C BC #### [address] [address] CRPon 10-26-2023 CRP 2.71 mg/dL High 0.00-0.75 [facility] Comment on above: Result Comment: CRP measurement is useful for assessment of non-specific INFLAMMATORY RESPONSE to infection or injury AND is a sensitive MARKER of ACUTE INFLAMMATION including CARDIAC RISK ASSESSMENT. CARDIAC patients with elevated CRP are POTENTIALLY at a HIGHER RISK OF FUTURE CARDIAC EVENTS. Performed By: #### C RP #### [address] [address] Diff Autoon 10-26-2023 Baso Absolute 0.1 x10*3/mcL Normal 0.0-0.2 [facility] Comment on above: Performed By: #### . Automated Diff #### [address] [address] Basophils/100 WBC (Bld) 0.5 % Normal 0.0-1.5 [facility] Comment on above: Performed By: #### . Automated Diff #### [address] [address] Eos Absolute 0.3 x10*3/mcL Normal 0.0-0.4 [facility] Comment on above: Performed By: #### . Automated Diff #### [address] [address] Eosinophils/100 WBC (Bld) 2.1 % Normal 0.0-5.4 [facility] Comment on above: Performed By: #### . Automated Diff #### [address] [address] Lymph Absolute 2.2 x10*3/mcL Normal 1.0-4.8 [facility] Comment on above: Performed By: #### . Automated Diff #### [address] [place] [address] Lymphocytes/100 WBC (Bld) 18.0 % Low 27.2-40.8 [facility] Comment on above: Performed By: #### . Automated Diff #### [address] [address] [place] Absolute 0.6 x10*3/mcL Normal 0.1-1.1 [facility] Comment on above: Performed By: #### . Automated Diff #### [address] [address] Monocytes/100 WBC (Bld) 4.9 % Normal 3.7-11.9 [facility] Comment on above: Performed By: #### . Automated Diff #### [address] [address] Neutro Absolute 9.2 x10*3/mcL High 1.8-7.[address] [facility] Comment on above: Performed By: #### . Automated Diff #### [address] [address] Neutro Auto 74.5 % High 47.2-70.8 [facility] Comment on above: Performed By: #### . Automated Diff #### [address] [address] ESRon 10-26-2023 Sed Rate 67 mm/hr High 0-30 [facility] Comment on above: Performed By: #### E SR #### [place] [id number] Infectious Disease Office/Cl inic Noteon 10-26-2023 Infectious [...] tabs, 0 Refill(s), 11/09/23 10:12:00 EDT, Pharmacy: [facility] #[id number] Basic Metabolic Profile C-Reactive Protein Complete Blood Count w/ Differential Erythrocyte Sedimentation Rate 2. Pseudomonas infection As above Ordered: levoFLOXacin, 1 tabs, Oral, q24hr, X 14 days, # 14 tabs, 0 Refill(s), 11/09/23 10:12:00 EDT, Pharmacy: [facility] #[id number] Basic Metabolic Profile C-Reactive Protein Complete Blood Count w/ Differential Erythrocyte Sedimentation Rate Chief Complaint New pt I&D done at [facility], possible infection of back. History of Present Illness Seen today for persistent drainage after back surgery on September 01. She had L3-L4 decompression and fusion by Dr. Saint Gregory at [facility]. She was discharged home on the . She was discharged on cephalexin for 10 days. She was taken back to surgery on October 11 due to persistent drainage and wound dehiscence. She had a fluid collection which was most consistent with seroma/infection . The surgery was done in [place]. Cultures grew Pseudomonas and she was discharged on Cipro. She could not tolerate it and stopped it after 3 days. After the 10 days of cephalexin initially, she received cephalexin September 27 from [facility]. She apparently got doxycycline and [...] data Procedure/Surgical History Neck Surgery Stomach Pain [facility] (09/02/2023) incision & drainage (10/12/2023) Medications [...] SARS-CoV-2 (COVID-19 (more content not included)... Normal [facility] Provider Letteron 10-26-2023 Provider Letter (Inserted Image. Shelly ble to display) Tejas Richardson DO [address] [place] [address] Re: Radha Dakota Date of Visit: 10/26/[address] Richardson, Thank you for your referral to my office. Attached you will find the most recent office visit note. Please call if you have any questions or concerns. Sincerely, Pavel Rodriges MD [address] [facility] [address] [facility], [address] [place] [address] The following document(s) were included in the letter: October 26, 2023 10:13:55 EDT - (10/26/2023) Infectious Disease Office Visit Note Normal [facility] ELECTROLYTESon 08-22-2023 Anion gap [Moles/Vol] 8 mmol/L Normal 5-15 [facility] Comment on above: Performed By: #### E LEC #### [facility] ([id number]) [address] [facility] [address] [place] [address] Chloride [Moles/Vol] 110 mmol/L High 98-109 [facility] Comment on above: Performed By: #### E LEC #### [facility] ([id number]) [address] [place] [address] CO2 [Moles/Vol] 23 mmol/L Normal 22-32 [facility] Comment on above: Performed By: #### E LEC #### [facility] ([id number]) [address] [facility] [address] [place] [address] Potassium [Moles/Vol] 4.4 mmol/L Normal 3.5-5.0 [facility] Comment on above: Performed By: #### E LEC #### [facility] ([id number]) [address] [facility] [address] [place] [address] Sodium [Moles/Vol] 141 mmol/L Normal 134-146 [facility] Comment on above: Performed By: #### E LEC #### [facility] ([id number]) [address], [address] [place] [address] CARDIAC AZAR ADMITon 03-07- 020 CK [Catalytic activity/Vol] 915 U/L Critically high 30-135 [facility] Comment on above: Result Comment: Test repeated. Critical value verified. Performed By: #### D RUGRPD #### [facility] [address] [place], [place] [address] Christian Mikayla CK.MB [Mass/Vol] 12.82 ng/mL Critically high <=2.37 [facility] Comment on above: Result Comment: Test repeated. Critical value verified. Performed By: #### D RUGRPD #### [facility] [address] [place], [place] [address] Christian Mikayla INR Coag (Bld) [Relative time] SEE BELOW Normal [facility] Comment on above: Result Comment: <0.0 34 ng/ml NEGATIVE 0.034-0.119 INDETERMINATE 0.120 AMI CUT OFF Performed By: #### D RUGRPD #### [facility] [address] [place], [place] [address] Christian Mikayla ÁNGEL 96.0 ng/mL Critically high <=61.5 [facility] Comment on above: Performed By: #### D RUGRPD #### [facility] [address] [place], [place] [address] Christian Mikayla TROP 0.028 ng/mL Normal <=0.034 [facility] Comment on above: Performed By: #### D RUGRPD #### [facility] [address] [place], [place] [address] Christian Mikayla CK [Catalytic activity/Vol] 1282 U/L Critically high 30-135 [facility] Comment on above: Result Comment: Test repeated. Critical value verified. Performed By: #### T ROP, CMP #### [facility] [address] [place] [address] Christian Degroot CK.MB [Mass/Vol] 24.63 ng/mL Critically high <=2.[address] [facility] Comment on above: Result Comment: Test repeated. Critical value verified. Performed By: #### T ROP, CMP #### [facility] [address] [place], [place] [address] Christian Santanaen INR Coag (Bld) [Relative time] SEE BELOW Normal [facility] Comment on above: Result Comment: <0.0 34 ng/ml NEGATIVE 0.034-0.119 INDETERMINATE 0.120 AMI CUT OFF Performed By: #### T ROP, CMP #### [facility] [address] [place] [address] Christian Mikayla ÁNGEL 235.0 ng/mL Critically high <=61.5 [facility] Comment on above: Performed By: #### T ROP, CMP #### [facility] [address] [place] [address] Christian Mikayla TROP 0.033 ng/mL Normal <=0.034 [facility] Comment on above: Performed By: #### T ROP, CMP #### [facility] [address] [place], [place] [address] Christian Mikayla CBC AUTO DIFFon 03-07-2020 Basophils (Bld) [#/Vol] 0.0 103/ul Normal 0.0-0.1 [facility] Comment on above: Performed By: #### C BC #### [facility] [address] [place], [place] [address] Christian Mikayla Basophils/100 WBC (Bld) 0.1 % Critically low 0.2-2.0 [facility] Comment on above: Performed By: #### C BC #### [facility] [address] [place], [place] [address] Christian Mikayla Eosinophils (Bld) [#/Vol] 0.0 103/ul Normal 0.0-0.7 [facility] Comment on above: Performed By: #### C BC #### [facility] [address] [place], [place] [address] Christian Mikayla Eosinophils/100 WBC (Bld) 0.0 % Critically low 0.9-7.0 [facility] Comment on above: Performed By: #### C BC #### [facility] [address] [place], [place] [address] Christianvíctor Degroot Erythrocyte distribution width (RBC) [Ratio] 13.4 % Normal 11.0-15.0 [facility] Comment on above: Performed By: #### C BC #### [facility] [address] [place], [place] [address] Christian Mikayla Hematocrit (Bld) [Volume fraction] 35.4 % Critically low 36.0-48.0 [facility] Comment on above: Performed By: #### C BC #### [facility] [address] [place] [address] Christian Mikayla Hemoglobin (Bld) [Mass/Vol] 11.4 g/dL Critically low 12.0-16.0 [facility] Comment on above: Performed By: #### C BC #### [facility] [address] [place] [address] Christian Mikayla IG # 0.07 10e3/ul Critically high 0.00-0.03 [facility] Comment on above: Performed By: #### C BC #### [facility] [address] [place] [address] Christian Mikayla IG % 0.4 % Normal 0.0-0.5 [facility] Comment on above: Performed By: #### C BC #### [facility] [address] [place], [place] [address] Christian Mikayla Lymphocytes (Bld) [#/Vol] 1.1 103/ul Critically low 1.2-3.8 [facility] Comment on above: Performed By: #### C BC #### [facility] [address] [place], [place] [address] Christian Mikayla Lymphocytes/100 WBC (Bld) 6.9 % Critically low 20.5-60.0 [facility] Comment on above: Performed By: #### C BC #### [facility] [address] [place], [place] [address] Christian Mikayla MANUAL DIFF REQ NO Normal [facility] Comment on above: Performed By: #### C BC #### [facility] [address] [place], [place] [address] Christianvíctor Degroot MCH (RBC) [Entitic mass] 32.7 pg Normal 26.7-34.0 [facility] Comment on above: Performed By: #### C BC #### [facility] [address] [place], [place] [address] Christianvíctor Santanaen MCHC (RBC) [Mass/Vol] 32.2 g/dL Normal 29.9-35.2 [facility] Comment on above: Performed By: #### C BC #### [facility] [address] [place], [place] [address] Christian Mikayla MCV (RBC) [Entitic vol] 101.4 fL Critically high 81.0-99.0 [facility] Comment on above: Performed By: #### C BC #### [facility] [address] [place], [place] [address] Christian Mikayla Monocytes (Bld) [#/Vol] 1.4 103/ul Critically high 0.3-0.8 [facility] Comment on above: Performed By: #### C BC #### [facility] [address] [place], [place] [address] Christian Mikayla Monocytes/100 WBC (Bld) 8.6 % Normal 1.7-12.0 [facility] Comment on above: Performed By: #### C BC #### [facility] [address] [place], [place] [address] Christian Mikayla Neutrophils (Bld) [#/Vol] 13.4 103/ul Critically high 1.4-6.[address] [facility] Comment on above: Performed By: #### C BC #### [facility] [address] [place], [place] [address] Christian Mikayla Neutrophils/100 WBC (Bld) 84.0 % Critically high 43.0-75.0 [facility] Comment on above: Performed By: #### C BC #### [facility] [address] [place], [place] [address] Christian Mikayla Platelet mean volume (Bld) [Entitic vol] 9.5 fL Normal 9.5-13.5 [facility] Comment on above: Performed By: #### C BC #### [facility] [address] [place], [place] [address] Christianvíctor Santanaen Platelets (Bld) [#/Vol] 207 103/ul Normal 150-450 [facility] Comment on above: Performed By: #### C BC #### [facility] [address] [place], [place] [address] Christian Mikayla RBC (Bld) [#/Vol] 3.49 106/ul Critically low 4.20-5.40 [facility] Comment on above: Performed By: #### C BC #### [facility] [address] [place], [place] [address] Christian Mikayla WBC (Bld) [#/Vol] 16.0 103/ul Critically high 4.0-11.0 [facility] Comment on above: Performed By: #### C BC #### [facility] [address] [place], [place] [address] Christian Mikayla PROF CHEM 8 (BAS METB)on Anion gap [Moles/Vol] 11.2 mmol/L Normal [facility] Comment on above: Performed By: #### D RUGRPD #### [facility] [address] [place], [place] [address] Christian Mikayla Calcium [Mass/Vol] 8.3 mg/dL Critically low 8.4-10.2 [facility] Comment on above: Performed By: #### D RUGRPD #### [facility] [address] [place], [place] [address] Christian Mikayla Chloride [Moles/Vol] 106 mmol/L Normal 98-107 [facility] Comment on above: Performed By: #### D RUGRPD #### [facility] [address] [place], [place] [address] Christian Mikayla CO2 [Moles/Vol] 24.5 mmol/L Normal 22.0-30.0 [facility] Comment on above: Performed By: #### D RUGRPD #### [facility] [address] [place] [address] Christian Mikayla Creatinine [Mass/Vol] 0.53 mg/dL Normal 0.52-1.04 [facility] Comment on above: Performed By: #### D COLT #### [facility] [address] [place] [address] Christian Mikayla EGFR-AF FIJIAN >60 Normal >=60 [facility] Comment on above: Performed By: #### D RUGLANDYD #### [facility] [address] [place] [id number] Christian Mikayla EGFR-NON AF FIJIAN >60 Normal >=60 [facility] Comment on above: Performed By: #### D COLT #### [facility] [address] [place] [address] Christian Mikayla Glucose [Mass/Vol] 113 mg/dL Critically high 74-106 [facility] Comment on above: Performed By: #### D COLT #### [facility] [address] [place] [address] Christian Mikayla Potassium [Moles/Vol] 3.7 mmol/L Normal 3.4-5.0 [facility] Comment on above: Performed By: #### D COLT #### [facility] [address] [place], [place] [address] Christian Mikayla Sodium [Moles/Vol] 138 mmol/L Normal 137-145 [facility] Comment on above: Performed By: #### D COLT #### [facility] [address] [place] [address] Christian Mikayla Urea nitrogen [Mass/Vol] 12.0 mg/dL Normal 7.0-17.0 [facility] Comment on above: Performed By: #### D COLT #### [facility] [address] [place], [place] [address] Christian Mikayla Urea nitrogen/Creatinin e [Mass ratio] 22.6 mg/mg Normal [facility] Comment on above: Performed By: #### D COLT #### [facility] [address] [place] [id number] Christian Mikayla CBC W MANUAL DIFFon 03-06-20 20 ATYPICAL LYMPH # Normal [facility] Comment on above: Performed By: #### D RUGRPD #### [facility] [address] [place] [address] Christian Mikayla ATYPICAL LYMPH % Normal [facility] Comment on above: Performed By: #### D RUGRPD #### [facility] [address] [place] [address] Christian Mikayla BAND # Normal 0.0-0.[address] [facility] Comment on above: Performed By: #### D RUGRPD #### [facility] [address] [place] [address] Christian Mikayla BAND % Normal 0-[address] [facility] Comment on above: Performed By: #### D RUGRPD #### [facility] [address] [place] [address] Christian Mikayla BASOM # 0.00 103/ul Normal 0.00-0.[address] [facility] Comment on above: Performed By: #### D RUGRPD #### [facility] [address] [place] [address] Christian Mikayla BASOM % 0.0 % Critically low 0.2-2.0 [facility] Comment on above: Performed By: #### D RUGRPD #### [facility] [address] [place] [address] Christian Mikayla BLAST # Normal [facility] Comment on above: Performed By: #### D RUGRPD #### [facility] [address] [place] [address] Christian Mikayla BLAST % Normal [facility] Comment on above: Performed By: #### D RUGRPD #### [facility] [address] [place] [address] Christian Mikayla CORRECTED WBC Normal 4.0-11.0 [facility] Comment on above: Performed By: #### D RUGRPD #### [facility] [address] [place] [address] Christian Mikayla Eosinophils (Bld) [#/Vol] 0.00 103/ul Normal 0.00-0.70 [facility] Comment on above: Performed By: #### D RUGRPD #### [facility] [address] [place], [place] [address] Christian Mikayla Eosinophils/100 WBC (Bld) 0.0 % Critically low 0.9-7.0 [facility] Comment on above: Performed By: #### D RUGRPD #### [facility] [address] [place], [place] [address] Christian Mikayla Erythrocyte distribution width (RBC) [Ratio] 13.2 % Normal 11.0-15.[address] [facility] Comment on above: Performed By: #### D RUGRPD #### [facility] [address] [place], [place] [address] Christian Mikayla Hematocrit (Bld) [Volume fraction] 44.1 % Normal 36.0-48.[address] [facility] Comment on above: Performed By: #### D RUGRPD #### [facility] [address] [place], [place] [address] Christian Mikayla Hemoglobin (Bld) [Mass/Vol] 13.9 g/dl Normal 12.0-16.[address] [facility] Comment on above: Performed By: #### D RUGRPD #### [facility] [address] [place] [address] Christian Mikayla LYMPHM # 0.26 103/ul Critically low 1.20-3.80 [facility] Comment on above: Performed By: #### D RUGRPD #### [facility] [address] [place], [place] [address] Christian Mikayla LYMPHM% 1.0 % Critically low 20.5-60.0 [facility] Comment on above: Performed By: #### D RUGRPD #### [facility] [address] [place], [place] [address] Christian Mikayla MCH (RBC) [Entitic mass] 32.6 pg Normal 26.7-34.[address] [facility] Comment on above: Performed By: #### D RUGRPD #### [facility] [address] [place], [place] [address] Christian Mikayla MCHC (RBC) [Mass/Vol] 31.5 g/dl Normal 29.9-35.[address] [facility] Comment on above: Performed By: #### D RUGRPD #### [facility] [address] [place] [address] Christian Degroot MCV (RBC) [Entitic vol] 103.3 fL Critically high 81.0-99.[address] [facility] Comment on above: Performed By: #### D RUGRPD #### [facility] [address] [place] [address] Christian Mikayla METAMYELOCYTE # Normal [facility] Comment on above: Performed By: #### D RUGRPD #### [facility] [address] [place] [address] Christianvíctor Degroot METAMYELOCYTE % Normal [facility] Comment on above: Performed By: #### Dwayne LESLIERPD #### [facility] [address] [place] [address] Christian Mikayla MONOM# 1.32 103/ul Critically high 0.30-0.80 [facility] Comment on above: Performed By: #### Dwayne LESLIERPD #### [facility] [address] [place] [address] Christian Mikayla MONOM% 5.0 % Normal 1.7-12.0 [facility] Comment on above: Performed By: #### Dwayne LESLIERPD #### [facility] [address] [place] [address] Christian Mikayla MYELOCYTE # Normal [facility] Comment on above: Performed By: #### D RUGRPD #### [facility] [address] [place] [address] Christian Mikayla MYELOCYTE % Normal [facility] Comment on above: Performed By: #### D MARIAMARPD #### [facility] [address] [place] [address] Christian Degroot NRBC Normal [facility] Comment on above: Performed By: #### D MARIAMARPD #### [facility] [address] [place] [address] Christian Degroot Platelet mean volume (Bld) [Entitic vol] 9.6 fL Normal 9.5-13.5 [facility] Comment on above: Performed By: #### D MARIAMARPD #### [facility] [address] [place] [address] Christian Degroot Platelets (Bld) [#/Vol] 268 103/ul Normal 150-450 [facility] Comment on above: Performed By: #### D JUNED #### [facility] [address] [place], [place] [address] Christian Degroot RBC (Bld) [#/Vol] 4.27 106/ul Normal 4.20-5.40 [facility] Comment on above: Performed By: #### D JUNED #### [facility] [address] [place], [place] [address] Christian Degroot SEG # 24.82 103/ul Critically high 1.40-6.50 [facility] Comment on above: Performed By: #### D COLT #### [facility] [address] [place], [place] [address] Christian Degroot Segmented neutrophils/100 WBC (Bld) 94.0 % Critically high 43.0-75.0 [facility] Comment on above: Performed By: #### D JUNED #### [facility] [address] [place], [place] [address] Christian Degroot WBC (Bld) [#/Vol] 26.4 103/ul Critically high 4.0-11.0 [facility] Comment on above: Performed By: #### D JUNED #### [facility] [address] [place], [place] [address] Christian Degroot CPKon 03-06-2020 CK [Catalytic activity/Vol] 464 U/L Critically high 30-135 [facility] Comment on above: Result Comment: test repeated critical value verified Performed By: #### C K #### [facility] [address] [place], [place] [address] Christian Degroot CT ABD/PELV W CONon 03-06-20 [...] by: MAT CASEY Date: 2020-03-06 18:[address] [facility] CT STROKE HEAD WOon 03-06-20 [...] CASEY Date: 2020-03-06 16:[address] [facility] DRUG SCREEN RAPID (URINE)on 03-06-2020 AMP Positive Normal NEGATIVE [facility] Comment on above: Performed By: #### D RUGRPD #### [facility] [address] [place] [address] Christian Mikayla BAR Negative Normal NEGATIVE [facility] Comment on above: Performed By: #### D RUGRPD #### [facility] [address] [place] [address] Christian Mikayla BUP Negative Normal NEGATIVE [facility] Comment on above: Performed By: #### D RUGRPD #### [facility] [address] [place] [address] Christian Mikayla BZO Negative Normal NEGATIVE [facility] Comment on above: Performed By: #### D RUGRPD #### [facility] [address] [place] [address] Christian Mikayla RITCHIE Negative Normal NEGATIVE [facility] Comment on above: Performed By: #### D RUGRPD #### [facility] [address] [place] [address] Christian Mikayla CUT-OFFS SEE BELOW Normal [facility] Comment on above: Result Comment: AMP [...] Performed By: #### D RUGRPD #### [facility] [address] [place] [address] Mikayla DRUG CUT HEADER DRUG CLASS TEST SYST EM CUT-OFF CONCENTRATIONS ARE FOLLOWS: Normal [facility] Comment on above: Performed By: #### D RUGRPD #### [facility] [address] [place] [address] Christian Mikayla mAMP Negative Normal NEGATIVE [facility] Comment on above: Performed By: #### D RUGRPD #### [facility] [address] [place] [address] Christian Mikayla MTD Negative Normal NEGATIVE [facility] Comment on above: Performed By: #### D RUGRPD #### [facility] [address] [place] [address] Christian Mikayla OPI Positive Normal NEGATIVE [facility] Comment on above: Performed By: #### D RUGRPD #### [facility] [address] [place] [address] Christian Mikayla OXY Negative Normal NEGATIVE [facility] Comment on above: Performed By: #### D RUGRPD #### [facility] [address] [place] [address] Christian Mikayla PCP Negative Normal NEGATIVE [facility] Comment on above: Performed By: #### D RUGRPD #### [facility] [address] [place] [address] Christian Mikayla PPX Negative Normal NEGATIVE [facility] Comment on above: Performed By: #### D RUGRPD #### [facility] [address] [place] [address] Christian Mikayla TCA Negative Normal NEGATIVE [facility] Comment on above: Performed By: #### D RUGRPD #### [facility] [address] [place] [address] Christian Mikayla THC Negative Normal NEGATIVE [facility] Comment on above: Performed By: #### D RUGRPD #### [facility] [address] [place] [address] Christian Mikayla ER URINE PROFILEon 0 Bilirubin [Mass/Vol] Negative Normal NEGATIVE [facility] Comment on above: Performed By: #### E RUR #### [facility] [address] [place] [address] Christian Mikayla BLOOD Negative Normal NEGATIVE [facility] Comment on above: Performed By: #### E RUR #### [facility] [address] [place] [address] Christian Mikayla Clarity (U) CLEAR Normal [facility] Comment on above: Performed By: #### E RUR #### [facility] [address] [place], [place] [address] Christian Mikayla Color (U) YELLOW Normal YELLOW [facility] Comment on above: Performed By: #### E RUR #### [facility] [address] [place] [address] Christian Mikayla ERUAHD A micrscopic examina tion will be performed if indicated. Normal [facility] Comment on above: Performed By: #### E RUR #### [facility] [address] [place] [address] Christian Mikayla Glucose [Mass/Vol] Negative Normal NEGATIVE [facility] Comment on above: Performed By: #### E RUR #### [facility] [address] [place] [address] Christian Mikayla Ketones Ql (U) Negative Normal NEGATIVE [facility] Comment on above: Performed By: #### E RUR #### [facility] [address] [place] [address] Christian Mikayla Nitrite Ql (U) Negative Normal NEGATIVE [facility] Comment on above: Performed By: #### E RUR #### [facility] [address] [place] [address] Christian Mikayla pH (Bld) 6.0 Normal 5-9 [facility] Comment on above: Performed By: #### E RUR #### [facility] [address] [place], [place] [address] Christian Mikayla Protein (U) [Mass/Vol] TRACE Normal [facility] Comment on above: Performed By: #### E RUR #### [facility] [address] [place] [address] Christian Mikayla SPEC GRAVITY >=1.030 Normal 1.005-<=1.[address] [facility] Comment on above: Performed By: #### E RUR #### [facility] [address] [id number] Christianvíctor Degroot UR MICRO IND NOT INDICATED Normal [facility] Comment on above: Performed By: #### E RUR #### [facility] [address] [place], [place] [address] Christianvíctor Degroot Urobilinogen Qn (U) 0.2 EU/dl Normal [facility] Comment on above: Performed By: #### E RUR #### [facility] [address] [place], [place] [address] Christian Mikayla WBC (Bld) [#/Vol] Negative Normal NEGATIVE [facility] Comment on above: Performed By: #### E RUR #### [facility] [address] [place], [place] [address] Christian Mikayla ETHANOL (BLD ALC)on 03-06-20 20 Ethanol [Mass/Vol] NOTE: 80 mg/dl is th e legal limit for a blood alcohol level Normal [facility] Comment on above: Performed By: #### E TH #### [facility] [address] [place], [place] [address] Christianvíctor Degroot Ethanol [Mass/Vol] mg/dL Normal [facility] Comment on above: Performed By: #### E TH #### [facility] [address] [place], [place] [address] Christian Mikayla HEMOGRAM AND PLATELon 2019 WBC (Bld) [#/Vol] 23.5 103/ul Critically high 4.0-11.0 [facility] Comment on above: Performed By: #### H H #### [facility] [address] [place], [place] [address] Christian Mikayla LACTATE/LACTIC ACIDon 2019 Lactate [Moles/Vol] 0.7 mmol/L Normal 0.7-2.0 [facility] Comment on above: Performed By: #### L ACT #### [facility] [address] [place], [place] [address] Christian Mikayla MYOGLOBINon 03-06-2020 Myoglobin [Mass/Vol] 918.0 ng/mL Critically high <=61.5 [facility] Comment on above: Result Comment: test repeated critical value verified Performed By: #### M YO #### [facility] [address] [place], [place] [address] Christian Degroot POINT OF CARE GLUCOSEon 02-14 Glucose [Mass/Vol] 117 mg/dL Critically high 74-106 [facility] Comment on above: Performed By: #### D RUGRPD #### [facility] [address] [place], [place] [address] Christianvíctor Degroot PROF 14(COMP METB)on 020 Albumin [Mass/Vol] 3.3 g/dL Critically low 3.5-5.0 [facility] Comment on above: Performed By: #### T BLAYNE, CMP #### [facility] [address] [place], [place] [address] Christian Mikayla Albumin/Globulin [Mass ratio] 1.1 {ratio} Normal [facility] Comment on above: Performed By: #### T BLAYNE, CMP #### [facility] [address] [place], [place] [address] Christian Mikayla ALP [Catalytic activity/Vol] 69 U/L Normal 38-126 [facility] Comment on above: Performed By: #### T ROP, CMP #### [facility] [address] [place], [place] [address] Christian Mikayla ALT [Catalytic activity/Vol] 30 U/L Normal 9-52 [facility] Comment on above: Performed By: #### T ROP, CMP #### [facility] [address] [place], [place] [address] Christian Mikayla Anion gap [Moles/Vol] 16.8 mmol/L Normal [facility] Comment on above: Performed By: #### T ROP, CMP #### [facility] [address] [place], [place] [address] Christian Mikayla AST [Catalytic activity/Vol] 29 U/L Normal 14-36 [facility] Comment on above: Performed By: #### T ROP, CMP #### [facility] [address] [phone] Christian Mikayla Bilirubin Ql (U) 0.4 mg/dL Normal 0.2-1.3 [facility] Comment on above: Performed By: #### T ROP, CMP #### [facility] [address] [address] Christian Mikayla Calcium [Mass/Vol] 8.7 mg/dL Normal 8.4-10.2 [facility] Comment on above: Performed By: #### T ROP, CMP #### [facility] [address] [address] Christian Mikayla Chloride [Moles/Vol] 104 mmol/L Normal 98-[address] [facility] Comment on above: Performed By: #### T ROP, CMP #### [facility] [address] [address] Christian Mikayla CO2 [Moles/Vol] 22.6 mmol/L Normal 22.0-30.0 [facility] Comment on above: Performed By: #### T ROP, CMP #### [facility] [address] [address] Christian Mikayla Creatinine [Mass/Vol] 0.92 mg/dL Normal 0.52-1.[address] [facility] Comment on above: Performed By: #### T ROP, CMP #### [facility] [address] [place], [place] [address] Christian Mikayla EGFR-AF FIJIAN >60 Normal >=60 [facility] Comment on above: Performed By: #### T ROP, CMP #### [facility] [address] [address] Christian Mikayla EGFR-NON AF FIJIAN >60 Normal >=[address] [facility] Comment on above: Performed By: #### T ROP, CMP #### [facility] [address] [phone] Christian Mikyala Globulin (S) [Mass/Vol] 3.0 g/dL Normal [facility] Comment on above: Performed By: #### T ROP, CMP #### [facility] [address] [phone] Christian Mikayla Glucose [Mass/Vol] 130 mg/dL Critically high 74-106 [facility] Comment on above: Performed By: #### T ROP, CMP #### [facility] [address] [place] [address] Christian Mikayla Potassium [Moles/Vol] 4.4 mmol/L Normal 3.4-5.0 [facility] Comment on above: Performed By: #### T ROP, CMP #### [facility] [address] [place] [address] Christian Mikayla Protein [Mass/Vol] 6.3 g/dL Normal 6.1-8.2 [facility] Comment on above: Performed By: #### T BLAYNE, CMP #### [facility] [address] [place] [address] Christian Mikayla Sodium [Moles/Vol] 139 mmol/L Normal 137-145 [facility] Comment on above: Performed By: #### T BLAYNE, CMP #### [facility] [address] [place] [address] Christian Mikayla Urea nitrogen [Mass/Vol] 18.0 mg/dL Critically high 7.0-17.0 [facility] Comment on above: Performed By: #### T BLAYNE, CMP #### [facility] [address] [place] [address] Christian Mikayla Urea nitrogen/Creatinin e [Mass ratio] 19.6 mg/mg Normal [facility] Comment on above: Performed By: #### T ROP, CMP #### [facility] [address] [place] [address] Christian Mikayla RESPIRATORY PANEL PLUSon Adenovirus NOT DETECTED Normal NOT DETECTED [facility] Comment on above: Performed By: #### D RUGRPD #### [facility] [address] [place] [address] Christian Mikayla B. Parapertusis NOT DETECTED Normal NOT DETECTED [facility] Comment on above: Performed By: #### D RUGRPD #### [facility] [address] [place], [place] [address] Christian Mikayla B. Pertussis NOT DETECTED Normal NOT DETECTED [facility] Comment on above: Performed By: #### D RUGRPD #### [facility] [address] [place] [address] Christian Mikayla Chlamydia Pneumoniae NOT DETECTED Normal NOT DETECTED [facility] Comment on above: Performed By: #### D RUGRPD #### [facility] [address] [place] [address] Christian Mikayla Coronavirus 229E NOT DETECTED Normal NOT DETECTED [facility] Comment on above: Performed By: #### D RUGRPD #### [facility] [address] [place] [address] Christian Mikayla Coronavirus HKU1 NOT DETECTED Normal NOT DETECTED [facility] Comment on above: Performed By: #### D RUGRPD #### [facility] [address] [place] [address] Christian Mikayla Coronavirus NL63 NOT DETECTED Normal NOT DETECTED [facility] Comment on above: Performed By: #### D RUGRPD #### [facility] [address] [place] [address] Christian Mikayla Coronavirus OC43 NOT DETECTED Normal NOT DETECTED [facility] Comment on above: Performed By: #### D RUGRPD #### [facility] [address] [place] [address] Christian Mikayla Influenza A H1 2008 NOT DETECTED Normal NOT DETECTED [facility] Comment on above: Performed By: #### D RUGRPD #### [facility] [address] [place] [address] Christian Mikayla Influenza B NOT DETECTED Normal NOT DETECTED [facility] Comment on above: Performed By: #### D RUGRPD #### [facility] [address] [place] [address] Christian Mikayla Metapneumovirus NOT DETECTED Normal NOT DETECTED [facility] Comment on above: Performed By: #### D RUGRPD #### [facility] [address] [place] [address] Christian Mikayla Mycoplas. Pneumoniae NOT DETECTED Normal NOT DETECTED [facility] Comment on above: Performed By: #### D RUGRPD #### [facility] [address] [address] Christian Mikayla Parainfluenza 1 NOT DETECTED Normal NOT DETECTED [facility] Comment on above: Performed By: #### D RUGRPD #### [facility] [address] [address] Christian Mikayla Parainfluenza 2 NOT DETECTED Normal NOT DETECTED [facility] Comment on above: Performed By: #### D RUGRPD #### [facility] [address] [place] [address] Christian Mikayla Parainfluenza 3 NOT DETECTED Normal NOT DETECTED [facility] Comment on above: Performed By: #### D RUGRPD #### [facility] [address] [place] [address] Christian Mikayla Parainfluenza 4 NOT DETECTED Normal NOT DETECTED [facility] Comment on above: Performed By: #### D RUGRPD #### [facility] [address] [place] [address] Christian Mikayla Rhino/Enterovirus NOT DETECTED Normal NOT DETECTED [facility] Comment on above: Performed By: #### D RUGRPD #### [facility] [address] [place] [address] Christian Mikayla RP2 Header 1 RESPIRATORY PANEL: VIRUSES Normal [facility] Comment on above: Performed By: #### D RUGRPD #### [facility] [address] [place] [address] Christian Mikayla RP2 Header 2 RESPIRATORY PANEL: BACTERIA Normal [facility] Comment on above: Performed By: #### D RUGRPD #### [facility] [address] [place] [address] Christian Mikayla RP2 Header 4 EUA SEE BELOW Normal [facility] Comment on above: Result Comment: This test is not yet approved or cleared by the [place] FDA. When there are no FDA-approved or cleared tests available, and other criteria are met, FDA can make tests available under an emergency access mechanism called an Emergency Use Authorization (EUA). The EUA for this test is supported by the Hand Or Machine Paster of Health and Human Service?s (HHS?s) declaration [...] Performed By: #### D RUGRPD #### [facility] [address] [place] [address] RSV NOT DETECTED Normal NOT DETECTED [facility] Comment on above: Performed By: #### D RUGRPD #### [facility] [address] [place], [place] [address] SARS-CoV-2: COVID-19 NOT DETECTED Normal NOT DETECTED [facility] Comment on above: Performed By: #### D RUGRPD #### [facility] [address] [place] [address] TROPONIN - Ion 03-06-2020 Troponin I.cardiac [Mass/Vol] 0.016 ng/mL Normal <=0.[address] [facility] Comment on above: Performed By: #### T BLAYNE, CMP #### [facility] [address] [place] [address] Troponin I.cardiac [Mass/Vol] SEE BELOW Normal [facility] Comment on above: Result Comment: <0.0 34 ng/ml NEGATIVE 0.034-0.119 INDETERMINATE 0.120 AMI CUT OFF Performed By: #### T ROP, CMP #### [facility] [address] [place] [address] [facility] Von 03-06-2020 [...] by: FELA SMITH Date: 2020-03-06 15:[address] [facility] CT 3D CERVICAL SPINE WITH CO NTRASTon 04-27-2018 CT 3D CERVICAL SPINE WITH CONTRAST [facility] [address] [place] [address] Patient Name: RADHA DUNCAN : 1970Sex: FAge: Race: WhiteMRN: [id number]. Location: 85Patient Status: OVisit #: [id number] Date: 04/10/2018 12:10:00 PMCompleted Date: 04/27/2018 10:58 AMRequesting Provider: MARY DIAL Attending Provider: MARY DIAL Report Copy To: TEJAS RICHARDSON Signs & Symptoms: M54.12 Radiculopathy, cervical region [id number]: Nyla MYELOGRAM AUTH [id number] VALID 04/11/18-07/12/18 [facility] [id number] JYComments: Exam: CT 3D CERVICAL SPINE WITH CONTRASTAccession #: [id number] CT 3D CERVICAL SPINE WITH CONTRAST 04/27/2018 [...] findings. Electronically signed by:Oli Sanders. Transcribed by: [email or web address], User Resident: MANDEEP YOUNGElectronically Signed by: OLI SANDERS @ 04/27/2018 01:02 PMI personally read this/these film(s) with this resident Normal [facility] CT 3D LUMBAR SPINE W CONTRAS Ton 04-27-2018 CT 3D LUMBAR SPINE W CONTRAST [facility] [address] [place] [address] Patient Name: RADHA DUNCAN : 1970Sex: FAge: Race: WhiteMRN: [id number]. Location: 85Patient Status: DVisit #: [id number] Date: 04/10/2018 12:10:00 PMCompleted Date: 04/27/2018 10:59 AMRequesting Provider: MARY DIAL Attending Provider: MARY DIAL Report Copy To: DYLANTEJAS Signs & Symptoms: M54.16 Radiculopathy, lumbar region [id number]: Nyla MYELOGRAM AUTH [id number] VALID 04/11/18-07/12/18 PER [employer] [address] JYComments: Exam: CT 3D LUMBAR SPINE W CONTRASTAccession #: [id number] CT 3D LUMBAR SPINE W CONTRAST 04/27/2018 [...] findings. Electronically signed by:Antony Skelton. Transcribed by: [email or web address], User Resident: MANDEEP YOUNGElectronically Signed by: ANTONY SKELTON @ 04/27/2018 05:36 PMI personally read this/these film(s) with this resident Normal [facility] ENTIRE MYELOGRAMon 8 ENTIRE MYELOGRAM [facility] [address] [address] Patient Name: RADHA DUNCAN : 1970Sex: FAge: Race: WhiteMRN: [id number]. Location: Patient Status: OVisit #: [id number] Date: 04/10/2018 12:10:00 PMCompleted Date: 04/27/2018 10:19 AMRequesting Provider: MARY DIAL Attending Provider: MARY DIAL Report Copy To: TEJAS RICHARDSON Signs & Symptoms: M54.16 Radiculopathy, lumbar region [id number]: [place] MYELOGRAMComments: , , , Ordering Provider - MARY DIAL MD , Exam: ENTIRE MYELOGRAMAccession #: [id number] ENTIRE MYELOGRAM 04/27/2018 10:19 AM EST SIGNS [...] and risks are acceptable. Consent was obtained. Timeout:[place] protocol timeout verification performed. PROCEDURE:Estimated blood loss:None [...] there were no immediate complications. Approved by:Mandeep Yonug on 04/27/2018 11:26 AM EST. I, Oli Sanders, have reviewed the images and report and concur with these findings. Electronically signed by:Oli Sanders. Transcribed by: [id number], User Resident: MANDEEP YOUNGElectronically Signed by: OLI SANDERS @ 04/27/2018 01:01 PMI personally read this/these film(s) with this resident Normal [facility] Comment on above: Order Comment: , , = ========= , Ordering Provider - MARY DIAL MD , Ta 02-20-2018 CNPYamilex Telephone ([facility]) -------RADHA DUNCAN ([id number]) 1970 FDate Time Provider Vwmqvqytde85/8/18 MAGED MURDOCK During your visit today, we recorded the following information about you:[facility] Patient Service Spec 02/20/2018 8:05 AM SignedPt [...] from his care.Please call her back at [phone].Elysia Montoya Psr 02/22/2018 8:37 AM SignedPlease fax letter over to [phone].[place] LPN 02/27/2018 10:18 AM SignedSpoke with [...] Known Allergies)Date Reviewed: 02/10/2018Reviewed by: Kayla Sparks SALES FLOOR MANAGER - Fully AssessedReason for Visit: Letter [...] by MAGED MURDOCK MD on 02/28/18 Normal [facility] CNOVon 02-10-2018 CNOV Office Visit ([facility]) -------RADHA DUNCAN ([id number]) 1970 FDate Time Provider Department02/10/18 10:45 AM MAGED MURDOCK During your visit today, we recorded the following information about you: Pulse Respiration Blood pressure Weight 80/minute 16/minute 132/47 69.9 kgMaged Murdock MD 02/11/2018 1:30 PM AddendumSUBJECTIVE:The patient presents to [facility] Pain Management Department for afollow-up [...] percocet was last taken 02/09/2018 in the [facility] OARRS records were reviewed.Imaging results in [...] other than HPI.Data scribed by above mentioned MA/SALES FLOOR MANAGER/RN/PA, and personally reviewed andverified by physician. [...] treatment plan. Patient agreeswith above. Maged Murdock, PAU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 [...] any questions. Sincerely, Maged Murdock MDEncounter Number: [id number] Status:Closed by MAGED MURDOCK MD on 02/11/18 Normal [facility] PROGRESSon 02-10-2018 Protein mass conc HNO ID: [id number] thor: Maged Jolleyervice: (none)Author Type: PhysicianType: Progress NotesFiled: 02/11/2018 1:30 PMNote Text:SUBJECTIVE:The patient presents to [facility] Pain Management Departmentfor a follow-up [...] other than HPI.Data scribed by above mentioned MA/SALES FLOOR MANAGER/RN/PA, and personally reviewed andverified by physician. [...] with above. Maged Murdock, MDSeptember 2017 Normal [facility] CNOVon 01-10-2018 CNOV Office Visit ([facility]) -------DAKOTARADHA Dereje ([id number]) 1970 FDate Time Provider Department01/10/18 1:00 PM MONICA YAN (ARLENE) [facility] During your visit today, we recorded the following information about you: Pulse Blood pressure Weight 85/minute 127/47 70.3 kgMonica Yan APRN.CNP 01/10/2018 2:13 PM SignedSUBJECTIVE:The patient presents to [facility] Pain Management Department for afollow-up [...] and C4-C5 secondaryto DDDAnterior mechanical fusion of Z2-4-5LIYOGS OF SYSTEMS:GENERAL: (-) weight loss, (+)malaise, (-)fevers.HEENT:(+)headache [...] other than HPI.Data scribed by above mentioned MA/SALES FLOOR MANAGER/RN/PA, and personally reviewed andverified by Monica [...] treatment plan. Patient agreeswith above.Monica Yan APRN.[facility] 2017Referring Provider: TEJAS RICHARDSON JR [[id number]]Allergies As of Date: 01/10/2018(No Known Allergies)Date Reviewed: [...] INVALID FOR*Follow-up and Disposition History RecordedEncounter Number: [id number] Status:Closed by MONICA YAN CNP on 01/10/18 [facility] PROGRESSon 01-09-2018 Protein mass conc HNO ID: [id number] thor: Monica Pereyra (Locks Tender) HillService: (none)Author Type: Nurse PractitionerType: Progress NotesFiled: 01/10/2018 2:13 PMNote Text:SUBJECTIVE:The [facility] Pain Management Departmentfor a follow-up [...] to moderate foraminal narrowing at C3-C4, and C4-G0pgzjdfxxr to DDDAnterior mechanical fusion of L1-2-7HRXMRG OF SYSTEMS:GENERAL: (-) weight loss, (+)malaise, (-)fevers.HEENT:(+)headache [...] other than HPI.Data scribed by above mentioned MA/SALES FLOOR MANAGER/RN/PA, and personally reviewed andverified by Monica [...] Patientagrees with above.Monica Yan APRN.Lali 2017 [facility] Ta 12-21-2017 CNPN Telephone ([facility]) -------RADHA DUNCAN ([id number]) 1970 FDate Time Provider Department12/21/17 MAGED MURDOCK During your visit today, we recorded the following information about you:Lorena Araiza 12/21/2017 10:31 AM AddendumPatient calling in to inquire if you have received MRI films from [facility].Please advisJacob Park LPN 12/22/2017 3:15 PM SignedSpoke with patient and informed her that we did receive the thoracic MRI whichwas normal.We did not receive the cervical MRI. She will call [facility] and have them refaxit.Kami Zheng Workleader 12/26/2017 9:53 AM SignedPatient called back in regards to below message. Patient would like to know ifwe have received the Cervical MRI as it was refaxed 12/22. Pleasereview.Clint Park LPN 12/26/2017 11:01 AM SignedSpoke to [facility] and they are refaxing it as I [...] LPN - Fully AssessedReason for Visit: Question [4377]Prescriptions as of 12/21/2017 Sig: OXCARBAZEPINE 150 MG [...] by CLINT PARK LPN on 12/22/17 [facility] CNOVon 12-08-2017 CNOV Office Visit ([facility]) -------DAKOTARADHA ([id number]) 1970 [facility] Time Provider Department12/08/17 1:30 PM MAGED MURDOCK During your visit today, we recorded the following information about you: Pulse Respiration Blood pressure Weight 62/minute 16/minute 105/40 68.9 kgMaged Murdock MD 12/08/2017 6:06 PM SignedReferring Or Consulting Physician:Lindsey Aguilar, PA[address] [address]GROIO COMPLAINT: pain in my neck, shoulders, thoracic [...] Number of children: 0Occupational 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 [...] also during rena-operative period. we dont have qbql-rnwkwyy-znjuztzr for disability, likely to hamper rapid recovery [...] she did have severe postprocedure pain in [facility] handsDirect patient care time spent: [...] mail.Maged Murdock MDJuly 2017Referring Provider: LINDSEY AGUILAR [[id number]]Allergies As of Date: 12/08/2017(No Known Allergies)Date Reviewed: [...] region [M48.02]Order(s):C-REACTIVE PROTEIN (CRP) [SQCRP] Order #: [id number] FUTURE SED RATE WESTERGREN [SQWSR] Order #: [id number] FUTURE TSH BLD [SQTSH] Order #: [id number] FUTURE IRON + TIBC [SQIRON] Order #: [id number] FUTURE VITAMIN D 25 HYDROXY [SQVITD] Order #: [id number] FUTURE MRI THORACIC SPINE WO/W IVCON [[id number]] Order #: [id number] FUTURE iv contrast (will be provided with [...] EachRfl: 0 MRI CERVICAL SPINE WO IVCON [[id number]] Order #: [id number] FUTUREPrescriptions as of 12/08/2017 Sig: OXCARBAZEPINE 150 [...] discontinue is not on file.Letter TextJuly 2017Maged MurdockSt. Elizabeth HospitalDepartment of Pain [address], [place] [id number] [phone] Suzanne M Bailey:Thank you for seeing me [...] any questions. 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 [...] she did have severepost procedure pain in [facility] handsDirect patient care time spent: [...] fax, or mail.Maged Murdock MDJuly 2017 [facility] Vital Signs Date Time Vital Sign Value Performing Clinician Faci lity 06-26-2024 09:30-0500 Body height 160 cm Maged Contreras DO Work Phone: [facility] 06-26-2024 09:30-0500 Body mass index (BMI) [Ratio] 30.11 kg/m2 Maged Contreras DO Work Phone: [facility] 06-26-2024 09:30-0500 Body weight 77.11 kg Maged Contreras DO Work Phone: [facility] Encounters Encounter Date Encounter Type Care Provider Facility Start: 08-27-2024 End: 08-27-2024 ambulatory Christian Jameson MD Facility:[facility] Start: 07-23-2024 End: 07-23-2024 ambulatory Christian Jameson MD Facility:[facility] Start: 06-26-2024 End: 06-26-2024 Bamboo flowsheet Maged Eagle Ben DO Work Phone: [facility] Start: 06-26-2024 End: 06-26-2024 Bamboo flowsheet Maged Eagle Ben DO Work Phone: [facility] Start: 06-26-2024 End: 06-26-2024 Clinical Support Gina Riddle [facility] Work Phone: [facility] Comment on above: [...] 06-11-2024 End: 06-11-2024 ambulatory Christian Jameson MD Facility:[facility] Start: 04-24-2024 End: 04-24-2024 ambulatory [facility] Start: 04-11-2024 End: 04-11-2024 ambulatory [facility] Start: 04-04-2024 End: 04-04-2024 ambulatory [facility] Start: 03-27-2024 End: 03-27-2024 ambulatory FELA Mcghee [facility] Start: 03-20-2024 End: 03-20-2024 ambulatory FELA Mcghee [facility] Start: 03-16-2024 End: 03-16-2024 ambulatory TEJAS RICHARDSON [facility] Start: 03-15-2024 End: 03-15-2024 ambulatory [facility] Work Phone: Start: 03-15-2024 End: 03-15-2024 Patient encounter procedure [facility] Work Phone: Start: 03-13-2024 End: 03-13-2024 [facility] Start: 03-07-2024 End: 03-07-2024 ambulatory [facility] Start: 12-15-2023 End: 01-15-2024 ambulatory TEJAS RICHARDSON [facility] Start: 12-05-2023 End: 12-15-2023 ambulatory TEJAS RICHARDSON [facility] Start: 11-10-2023 End: 11-10-2023 ambulatory Tejas Richardson DO Facility:Infectious Disease Start: 10-26-2023 End: 10-26-2023 ambulatory Pavel Rodriges MD Facility:[facility] Start: 10-26-2023 End: 10-26-2023 ambulatory Tejas Richardson DO Facility:[facility] Start: 08-22-2023 End: 08-22-2023 ambulatory TEJAS RICHARDSON [facility] Start: 08-15-2023 End: 09-14-2023 ambulatory [facility] Start: 07-18-2023 End: 08-15-2023 ambulatory [facility] Start: 03-06-2020 End: 03-07-2020 Patient encounter procedure PEREZ LESTER Facility: Start: 04-27-2018 End: 04-28-2018 Patient encounter procedure PROVIDER UNKNOWN Facility:[facility] Start: 02-10-2018 End: 02-13-2018 Patient encounter MAGED MURDOCK [facility] Start: 01-10-2018 End: 01-11-2018 Patient encounter MONICA Pereyra ARLENE YAN [facility] Start: 12-08-2017 End: 12-09-2017 Patient encounter MAGED MURDOCK [facility] Procedures Date Procedure Procedure Detail Performing Clinician Start: 06-26-2024 AUDITORY FUNCTION TESTS Gina Autumn Riddle CCC-A Work Phone: Start: 03-06-2020 End: 03-06-2020 Microscopic examination of blood, culture PEREZ LESTER Comment on above: Performed By: #### D RUGRPD #### [facility] [address] [address] Christian Degroot Start: 01-30-2020 Mammography Maged mercer DO Work Phone: Plan of Treatment Date Care Activity Detail Author Start: 02-06-2025 Screening for malign ant neoplasm of cervix [facility] Start: 06-26-2024 End: 06-26-2024 Patient encounter procedure 06/26/2024 9:30 AM EST Office Visit [facility] [address] [place] [id number] Maged Contreras, [address] [place] [address] Arrived [facility] Comment on above: Arrived Start: 01-15-2024 Influenza vaccination Influenza Vacc ine (#1) [facility] Start: 01-29-2021 Screening for malign ant neoplasm of breast Mammogram [facility] Start: 1990 Screening for malign ant neoplasm of cervix Pap Smear [facility] Start: 1970 Screening for malign ant neoplasm of colon [facility] Immunizations Immunization Date Immunization Notes Care Provider Nazanin thornton 11-29-2020 Pfizer Purple Cap SARS-CoV-2 Vaccination Maged Contreras DO Work Phone: [facility] 11-09-2020 Pfizer Purple Cap SARS-CoV-2 Vaccination Maged Contreras DO Work Phone: [facility] 03-06-2020 influenza, high dose seasonal, preservative-free Maged Contreras DO Work Phone: [facility] 03-06-2020 influenza virus vacc ine, unspecified formulation Maged Contreras DO Work Phone: [facility] Payers Date Payer Category Payer Private Health Insurance [facility] [place] [address] [id number] 2023 Unknown 2023 Unknown [id number] 2022 Unknown [id number] 1970 Unknown [id number] 2.840.1.930133.3.579. 2.647 1970 Unknown [id number] 2.840.1.041244.3.579. 2.593 1970 Unknown [id number] 2.840.1.371179.3.579. 2.1285 1970 Unknown [id number] 2.840.1.399068.3.579. 2.128 1970 Unknown [id number] 2.840.1.634311.3.579. 2.1285 1969 Unknown [id number] 2.16840.1.721792.3.579. 2.1285 1969 Unknown [id number] 2.16840.1.871305.3.579. 2.1285 1969 Unknown [id number] 2.16840.1.398609.3.579. 2.1286 1969 Unknown [id number] 2.840.1.202946.3.579. 2.1285 1969 Unknown [id number] 2.840.1.872390.3.579. 2.1285 1969 Unknown [id number] 2.840.1.894448.3.579. 2.1285 1969 Unknown [id number] 2.840.1.714789.3.579. 2.1285 1969 Unknown [id number] 2.840.1.606705.3.579. 2.1285 1969 Unknown [id number] 2.0.1.663090.3.579. 2.1285 1969 Unknown [id number] .0.1.005361.3.579. 2.1285 1969 Unknown [id number] 2.0.1.973441.3.579. 2.1285 1969 Unknown [id number] 07.01.830.1.815920.3.579. 2.1285 1969 Unknown [id number] 07.01.830.1.733371.3.579. 2.9 1969 Unknown [id number] 07.01.830.1.930444.3.579. 2.1258 1969 Unknown [id number] .840.1.821992.3.579. 2. 1969 Unknown [id number] .840.1.058331.3.579. 2. 1969 Unknown [id number] 2.840.1.646705.3.579. 2. 1969 Unknown [id number] 2.840.1.466109.3.579. 2. 1969 Unknown [id number] .840.1.683337.3.579. 2.196 1969 Unknown [id number] 2.16.840.1.176965.3.579. 2.196 1969 Unknown [id number] 2.16.840.1.044463.3.579. 2.196 1959 Unknown [id number] Unknown [id number] Social History Date Type Detail Facility Tobacco smoking stat [facility] Unknown if ever smoked [facility] Work Phone: Start: 1970 Sex Assigned At Female F [facility] Tobacco smoking stat [facility] Tobacco smoking consumption unknown [facility] Start: 1970 Sex assigned at Not on file [facility] Start: 06-26-2024 Gender identity Not on file [facility] Start: 06-26-2024 Tobacco smoking stat [facility] Smokes tobacco daily [facility] [...] back as needed documented in this encounter [facility] Evaluation note Note Date & Type Note Facility Evaluation note No assessment information availa [facility] Work Phone: Evaluation note Note Date & Type Note Facility Evaluation note Diagnosis Sensorineural hearing loss (SNHL) of left ear with unrestricted hearing of right ear- Primary Impacted cerumen of left ear Impacted cerumen documented in this encounter [facility] Evaluation note Note Date & Type Note Facility Evaluation note Diagnosis Conductive hearing loss of left ear with unrestricted hearing of right ear- Primary documented in this encounter [facility] Summary Purpose Family History No [...] section and content) DATE CREATED AUTHOR 04/03/2018 [facility] DATE CREATED AUTHOR AUTHOR'S ORGANIZ ATION 05/03/2018 [facility] DATE CREATED AUTHOR AUTHOR'S ORGANIZ ATION 04/09/2020 [facility] DATE CREATED AUTHOR AUTHOR'S ORGANIZ ATION 04/07/2024 [facility] DATE CREATED AUTHOR AUTHOR'S ORGANIZ ATION 04/28/2024 [facility] DATE CREATED AUTHOR AUTHOR'S ORGANIZ ATION 06/28/[address] [facility] DATE CREATED AUTHOR AUTHOR'S ORGANIZ ATION 09/06/2024 [facility] Care Teams (unrecognized sec tion and content) Team Status: Active Member Role Status Dates Tejas Richardson JR DO Primary Care Provider Active Team Status: Inactive Member Role Status Dates Tejas Richardson JR DO Primary Care Provider Active Start: March 15, 2024 End: March 15, 2024 Fela Roman MD Attending Provider Active Sta rt: March 15, 2024 End: March 15, 2024 Photographer Scientific Relationship Specialty Start Date End Date Tejas Richardson MD [address] [place] [address] PCP - General Internal Medicine 06/26/24 Photographer Scientific Relationship Specialty Start Date End Date Tejas Richardson MD [address] [place] [address] PCP - General Internal Medicine 06/26/24 Photographer Scientific Relationship Specialty Start Date End Date Tejas Richardson MD [address] [place] [address] PCP - General Internal Medicine 06/26/24 Goals [...] BE BASED ON THE PRIMARY CLINICAL RECORDS. [facility]. provides no warranty or guarantee of the accuracy or completeness of information in this document.
--- NOTE | 2025-01-10 09:49 | PM.CN ---
Consult Note: HPI Data of Consult Patient: known to practice within the last 3 years Requesting Physician: Anh Gatica NP Primary Care Provider: ULYSSES RICHARDSON DO Consult Narrative Reason for consult: low back, left leg pain Narrative: 55yof who presents for evaluation. low back pain. imaging shows multilevel degnerative changes, stenosis, fusion at l3-4. fusion performed [address] Velasquez, had infection and reoperated last year. has engaged in a series of provider directed home exercises >6 weeks, without lasting benefit. currently utilizing cymbalta 60mg am and 60mg HS, otc ibuprofen, and tizanidine 8mg HS. pt failed to benefit from interventional therapy, does have a hx of significant infection with an intrathecal pump and scs trial. continues to endorse severe low back and left leg pain, numbness, tingling. pain today 6/10 increasing with standing, walking, pushing, pulling, housework, lifting, sleeping. pain mildly improved with sitting. pt did not consult Dr Velasquez since last visit, she would like a second opinion with another NS. not interested in lumbar scs trial due to prior experience. cc:: CC: Anh Gatica NP Review of Systems ROS Status of ROS 10 or more systems reviewed and unremarkable except as noted in history and below Musculoskeletal Reports: back pain, extremity pain and joint pain PFSH PFS Medical History (Updated 01/10/25 @ 09:51 by Anh Gatica NP) DDD (degenerative disc disease) Osteopenia ?M85.80 - Other specified disorders of bone density and structure, unspecified site (ICD-10) Back pain ?M54.9 - Dorsalgia, unspecified (ICD-10) Depression ?F32.A - Depression, unspecified (ICD-10) Spinal stenosis ?M48.00 - Spinal stenosis, site unspecified (ICD-10) Neuropathy ?G62.9 - Polyneuropathy, unspecified (ICD-10) Migraine ?G43.909 - Migraine, unspecified, not intractable, without status migrainosus (ICD-10) GERD (gastroesophageal reflux disease) ?K21.9 - Gastro-esophageal reflux disease without esophagitis (ICD-10) Delayed recovery from anesthesia Menopause ?Z78.0 - Asymptomatic menopausal state (ICD-10) Surgical History H/O lumbosacral spine surgery ?Z98.890 - Other specified postprocedural states (ICD-10) S/P insertion of intrathecal pump ?Z98.890 - Other specified postprocedural states (ICD-10) S/P cervical spinal fusion ?Z98.1 - Arthrodesis status (ICD-10) Family History Other Family history of colon cancer Family history of diabetes mellitus Social History Within the past year, how often did you have a drink containing alcohol: never Score interpretation: A score less than 3 is consistent with normal alcohol consumption. Smoking status: Current every day smoker What tobacco products do you use: cigarettes Packs per day: 1 Years smoked: 39 Smoking pack-years: 39.00 Non-prescribed substance use: denies use Highest level of school completed/degree received: high school graduate Meds Home Medications and Allergies Home Medications ?Medication ?Instructions ?Recorded ?Confirmed ?Type duloxetine 60 mg capsule,delayed 60 mg PO BID 08/17/23 01/10/25 History release (Cymbalta) rosuvastatin 5 mg tablet (Crestor) 5 mg PO DAILY 08/17/23 08/27/24 History ibuprofen 800 mg tablet (IBU) 800 mg PO BID 01/10/25 01/10/25 History tizanidine 4 mg capsule 8 mg PO .QHS PRN muscle spasticity 01/10/25 01/10/25 History Allergies Allergy/AdvReac Type Severity Reaction Status Date / Time morphine AdvReac overdose Verified 08/27/24 08:02 Exam Constitutional Documenting provider has reviewed patient's vital signs: yes Common normals: no apparent distress, oriented x3, healthy appearing, alert and well nourished General appearance: cooperative HENMT Common normals: normocephalic, hearing grossly normal bilaterally and moist oral mucous membranes Head and scalp: normocephalic Eye Common normals: PERRL Pupil: PERRL Neck & C-Spine Common normals: full ROM General: normal visual inspection Chest Common normals: inspection of chest normal Respiratory Common normals: normal respiratory effort, no retractions and no use of accessory muscles Back & Pelvis Lumbar spine/lower back: ROM limited, pain with ROM, lumbar spinal tenderness Lumbar spinal tenderness location: L4 and L5, paraspinal muscle tenderness and straight leg raise positive left Sacroiliac joints: SI joints normal Other: strength 5/5 in BLE negative left richardson(patricks), gaenslens, thigh thrust, compression test positive lumbar facet loading L5,S1 decreased sensation to left L3,4,5 Extremity Other: moderate tenderness over left GTB Neuro Common normals: oriented x3 Sensorium/orientation: alert Motor exam: no movement abnormalities noted Psych Common normals: mental status grossly normal, thought process normal, cooperative, affect normal, speech normal and activity/motor behavior normal Speech: normal speech Thought process: normal thought process Results Additional Findings Additional findings: If on a controlled substance or opioids, I have checked an [place]AR[place] report on this patient and there are no aberrancies noted in the prescribing history.??If on a controlled substance or opioid a drug screen was completed and reviewed within the last year, and if there has not been a drug screen completed we ordered one today to monitor higher risk, state monitored pain medication use. As part of providing excellent, safe, comprehensive care, the following was completed at our patient's visit: 1. A medication reconciliation and review to ensure accurate knowledge of current/active medications, including asking our patients to inform us about any nuay-chd-hcmpxas medications or herbal remedies/nutritional supplements/alternative remedies. 2. A review to specifically ensure our patients have had annual screening for screening for depression, screening for tobacco use, and screening for unhealthy alcohol use. For concerning screenings had a discussion with the patient, provided patient education, and recommended follow-up with primary care provider when appropriate. If patient noted with a risk of falling, they received education on strength, gait, and balance training to prevent future risk of falling. Portions of this note may have been carried over from the previous visit and updated as appropriate. Please note this office utilizes paper charting in addition to the electronic medical record. A list of current medications, vitals, and PMH is available there as the clinical staff outside of myself do not have access to [employer] charting during the clinic day operations. As part of providing quality comprehensive care the current medications, vitals, and PMH were reviewed in the paper chart. Assessment and Plan Assessment and Plan (1) Greater trochanteric bursitis of left hip: (2) Lumbar stenosis with neurogenic claudication: Assessment and Plan: failed left L4-5 L5-S1 TFESI (3) Lumbar spondylosis: Assessment and Plan: failed bilateral L4-5 L5-S1 MBB (4) Sacroiliac joint dysfunction of left side: Assessment and Plan: symptoms improved on exam (5) Lumbar postlaminectomy syndrome: (6) Lumbar radiculopathy: Plan 54 year old female with chronic low back pain post lumbar fusion, pt reporting moderate to severe low back pain with numbness tingling to LLE. pt not interested in scs trial or further injections. will update lumbar MRI with and without contrast and refer to NS once resulted for second opinion. proceed with left GTB in office with Dr Jameson. decreased duloxetine 60mg daily, notes no improvement with 60mg BID plan to wean off. f/u once MRI completed
== END 2025-01-10 09:23 | disposition home or self-care (01) ==
LOC: PM 09:22
PROVIDERS: PCP Internal Medicine; Visit Provider Nurse Practitioner
DX: M70.62 Trochanteric bursitis, left hip (principal); M48.062 Spinal stenosis, lumbar region with neurogenic claudication; M47.816 Spondylosis without myelopathy or radiculopathy, lumbar region; M53.3 Sacrococcygeal disorders, not elsewhere classified; M96.1 Postlaminectomy syndrome, not elsewhere classified; M54.16 Radiculopathy, lumbar region
CPT/HCPCS: G0463

== ENCOUNTER 2025-01-17 08:20 | Outpatient (OUT) | payer OTHER, SELFPAY ==
--- NOTE | 2025-01-17 08:25 | MR_ITS ---
The [address] [address] Patient Name: RAHEEM DUNCAN MRN: [id number]:[id number] date: 1970 Sex: F Assigned Patient Location: MRI Current Patient Location: MRI Accession/Order Number: [id number] Exam Date: 01/17/2025 08:45 Report Date: 01/17/2025 13:25 At the request of: ODILIA CARRILLO NP Procedure: MR lumbar spine wo/w con MR lumbar spine wo/w con 01/17/2025 9:47 AM SIGNS AND SYMPTOMS: Post Laminectomy PROTOCOL: Multiplanar multisequence MR images of the lumbar spine with and without IV contrast CONTRAST: 15 mL of intravenous Dotarem COMPARISON: None. FINDINGS: The bones of the lumbar spine are in anatomic alignment. There is preservation of vertebral body heights. There is moderate disc height loss at L3-4. There is posterior fusion at L3-L4. The marrow signal is within normal limits. The conus terminates at the superior endplate of the L1 vertebral body level. No epidural or paraspinous fluid collection is appreciated. At T12-L1: There is a normal disc, central canal, and neural foramen. At L1-L2: There is a normal disc, central canal, and neural foramen. At L2-L3: There is a broad-based disc bulge. There is accompanying facet hypertrophy. There is mild bilateral neural foraminal narrowing without significant spinal canal narrowing. At L3-L4: There is posterior fusion. Fluid collections are noted along the posterior aspect of the transpedicular screws may represent postoperative seroma. This is more prominent right compared to the left measuring 3.3 x 4.1 x 5 1 cm in greatest dimension with a peripheral enhancement. An underlying infectious process is not excluded. There is mild bilateral neural foraminal narrowing secondary to facet hypertrophy. There is spinal canal narrowing. At L4-L5: Facet hypertrophy is present bilaterally with ligamentum flavum thickening. There is a broad-based disc bulge. There is mild spinal canal stenosis with mild bilateral neural foraminal narrowing. At L5-S1: There is a normal disc, central canal, and neural foramen. MR/MR lumbar spine wo/w con IMPRESSION: At L3-L4: There is posterior fusion. Fluid collections are noted along the posterior aspect of the transpedicular screws may represent postoperative seroma. This is more prominent right compared to the left measuring 3.3 x 4.1 x 5 1 cm in greatest dimension with a peripheral enhancement. An underlying infectious process is not excluded. There is mild bilateral neural foraminal narrowing secondary to facet hypertrophy. There is spinal canal narrowing. Lesser degrees of degenerative changes are noted as above. Impression dictated by: Rodrick Carpenter M.D. 01/17/2025 1:25 PM Dictation Location: [place] [address] Electronically authenticated by: [id number] Y Date: 01/17/2025 13:25
--- OUTSIDE RECORDS SUMMARY | 2025-01-17 08:26 | XMS_ITS | CCD ---
Author Organization [facility] Care Team Providers Care Agricultural Chemicals Inspector Name Role Phone MAGED MURDOCK Unavailable Unavailable LINDSEY AGUILAR (PA) Unavailable Unavail able MONICA YAN (EDITORIAL PROJECT MANAGER) Unavailable Unavailabl e TEJAS RICHARDSON JR Unavailable [...] CONTRERAS Attending Unavailable GINA RIDDLE Attending Unavailable iGsell CHONG, Christian Singletary Attending Unavailable [facility] Unavail able Gisell CHONG, Christian Singletary Attending Unavailable [facility] Unavail able Gisell CHONG, Christian Singletary Attending Unavailable [facility] Unavail able Zahira CHONG, Pavel Carr Attending Unavailable [facility] Unavail able [place], [facility] Unavail able Yeison HENDRICKS, Hanane Finn Attending U navailable [facility] Unavail able Zahira CHONG, Pavel Carr Attending Unavailable [facility] CHONG, Nicole Neri Referring Unavailabl e Gisell CHONG, Christian Singletary Attending [facility] Unavail able Allergies Allergy Classification Reported [...] to moderate hearing loss above 4K Hz [facility] COMPLETE BLOOD COUNTon 04-24 Erythrocyte distribution width (RBC) [Ratio] 16.6 % High 11.5-15.0 [facility] [place] Comment on above: Performed By: #### C KJ, LINE ASSEMBLER #### [facility] ([id number]) [address] [address] Hematocrit (Bld) [Volume fraction] 40.9 % Normal 35-47 [facility] [place] Comment on above: Performed By: #### Jacqueline UNDERWOOD, LINE ASSEMBLER #### [facility] ([id number]) [address], [facility] [[email or web address]] [address] [place] [address] Hemoglobin (Bld) [Mass/Vol] 13.5 g/dL Normal 11.7-15.5 [facility] [place] Comment on above: Performed By: #### C KJ, LINE ASSEMBLER #### [facility] ([id number]) [address], [facility] [[email or web address]] [address] [place] [address] MCH (RBC) [Entitic mass] 32.0 pg Normal 27-34 [facility] [place] Comment on above: Performed By: #### C KJ, LINE ASSEMBLER #### [facility] ([id number]) [address], [address] [place] [address] MCHC (RBC) [Mass/Vol] 33.1 g/dL Normal 32-36 [facility] [place] Comment on above: Performed By: #### Jacqueline UNDERWOOD, LINE ASSEMBLER #### [facility] ([id number]) [address], [address] [place] [address] MCV (RBC) [Entitic vol] 97 fL Normal 80-100 [facility] Comment on above: Performed By: #### C KJ, LINE ASSEMBLER #### [facility] ([id number]) [address] [address] Platelet mean volume (Bld) [Entitic vol] 8.8 fL Normal 7-12 [facility] Comment on above: Performed By: #### C KJ, LINE ASSEMBLER #### [facility] ([id number]) [address] [address] Platelets (Bld) [#/Vol] 328 10*3/uL Normal 150-450 [facility] [place] Comment on above: Performed By: #### C KJ, LINE ASSEMBLER #### [facility] ([id number]) [address] [address] RBC COUNT 4.23 X10E12/L Normal 3.80-5.20 [facility] [place] Comment on above: Performed By: #### Jacqueline UNDERWOOD, LINE ASSEMBLER #### [facility] ([id number]) [address] [address] WBC (Bld) [#/Vol] 9.0 10*3/uL Normal 4.0-11.0 [facility] Comment on above: Performed By: #### Jacqueline UNDERWOOD, LINE ASSEMBLER #### [facility] ([id number]) [address] [address] CREATININEon 04-24-2024 Creatinine [Mass/Vol] 0.72 mg/dL Normal 0.40-1.00 [facility] [place] Comment on above: Result Comment: METH OD TRACEABLE TO IDMS STANDARD Performed By: #### Jacqueline UNDERWOOD, LINE ASSEMBLER #### [facility] ([id number]) [address] [address] eGFR (CKD-EPI) NON-RACE DEPENDENT >90 Normal >59 [facility] [place] Comment on above: Result Comment: Reported eGFR is based on the CKD-EPI 2020 equation that does not use a race coefficient. Performed By: #### C KJ, LINE ASSEMBLER #### [facility] ([id number]) [address] [address] [place] [address] COMPLETE BLOOD COUNTon 04-11 Erythrocyte distribution width (RBC) [Ratio] 16.9 % High 11.5-15.0 [facility] [place] Comment on above: Performed By: #### C BC, LINE ASSEMBLER #### [facility] ([id number]) [address] [address] [place] [address] Hematocrit (Bld) [Volume fraction] 41.0 % Normal 35-47 [facility] [place] Comment on above: Performed By: #### C KJ, LINE ASSEMBLER #### [facility] ([id number]) [address] [address] [place] [address] Hemoglobin (Bld) [Mass/Vol] 13.8 g/dL Normal 11.7-15.5 [facility] [place] Comment on above: Performed By: #### C KJ, LINE ASSEMBLER #### [facility] ([id number]) [address] [address] [place] [address] MCH (RBC) [Entitic mass] 32.3 pg Normal 27-34 [facility] [place] Comment on above: Performed By: #### C KJ, LINE ASSEMBLER #### [facility] ([id number]) [address] [address] [place] [address] MCHC (RBC) [Mass/Vol] 33.5 g/dL Normal 32-36 [facility] [place] Comment on above: Performed By: #### C KJ, LINE ASSEMBLER #### [facility] ([id number]) [address] [address] [place] [address] MCV (RBC) [Entitic vol] 96 fL Normal 80-100 [facility] [place] Comment on above: Performed By: #### C KJ, LINE ASSEMBLER #### [facility] ([id number]) [address] [address] Platelet mean volume (Bld) [Entitic vol] 9.1 fL Normal 7-12 [facility] [place] Comment on above: Performed By: #### C KJ, LINE ASSEMBLER #### [facility] ([id number]) [address] [address] Platelets (Bld) [#/Vol] 291 10*3/uL Normal 150-450 [facility] [place] Comment on above: Performed By: #### C KJ, LINE ASSEMBLER #### [facility] ([id number]) [address] [address] RBC COUNT 4.27 X10E12/L Normal 3.80-5.20 [facility] [place] Comment on above: Performed By: #### C KJ, LINE ASSEMBLER #### [facility] ([id number]) [address] [address] WBC (Bld) [#/Vol] 8.9 10*3/uL Normal 4.0-11.0 [facility] Comment on above: Performed By: #### Jacqueline UNDERWOOD, LINE ASSEMBLER #### [facility] ([id number]) [address] [address] CREATININEon 04-11-2024 Creatinine [Mass/Vol] 0.73 mg/dL Normal 0.40-1.00 [facility] [place] Comment on above: Result Comment: METH OD TRACEABLE TO IDMS STANDARD Performed By: #### C KJ, LINE ASSEMBLER #### [facility] ([id number]) [address] [address] eGFR (CKD-EPI) NON-RACE DEPENDENT >90 Normal >59 [facility] [place] Comment on above: Result Comment: Reported eGFR is based on the CKD-EPI 2020 equation that does not use a race coefficient. Performed By: #### C KJ, LINE ASSEMBLER #### [facility] ([id number]) [address] [place] [address] ASPIRATE CULTUREon Bacteria identified Aer cx Nom [...] <=1 F PIPERACIL/TAZOBACTAM S <=4 F Susceptible [facility] [place] Comment on above: Performed By: #### 5 97-5 #### [facility] ([id number]) [address] [address] COMPLETE BLOOD COUNTon 04-04 Erythrocyte distribution width (RBC) [Ratio] 16.6 % High 11.5-15.0 [facility] Comment on above: Performed By: #### Jacqueline ARAUJO [facility], 1987-09, 36600-9 #### [facility] ([id number]) [address] [address] Hematocrit (Bld) [Volume fraction] 37.5 % Normal 35-47 [facility] Comment on above: Performed By: #### Jacqueline ARAUJO CMP, 1987-09, 17893-0 #### [facility] ([id number]) [address] [address] Hemoglobin (Bld) [Mass/Vol] 12.7 g/dL Normal 11.7-15.5 [facility] Comment on above: Performed By: #### Jacqueline ARAUJO CMP, 1987-09, 79759-4 #### [facility] ([id number]) [address] [address] [place] [address] MCH (RBC) [Entitic mass] 31.6 pg Normal 27-34 [facility] Comment on above: Performed By: #### Jacqueline ARAUJO CMP, 1987-09, 89785-5 #### [facility] ([id number]) [address], [address] [place] [address] MCHC (RBC) [Mass/Vol] 33.8 g/dL Normal 32-36 [facility] Comment on above: Performed By: #### Jacqueline ARAUJO [facility], 1987-09, 12225-9 #### [facility] ([id number]) [address], [address] [place] [address] MCV (RBC) [Entitic vol] 94 fL Normal 80-100 [facility] Comment on above: Performed By: #### Jacuqeline ARAUJO [facility], 1988-09, 27184-1 #### [facility] ([id number]) [address], [address] [place] [address] Platelet mean volume (Bld) [Entitic vol] 8.9 fL Normal 7-12 [facility] Comment on above: Performed By: #### Jacqueline ARAUJO [facility], 1987-09, 20689-9 #### [facility] ([id number]) [address], [address] [place] [address] Platelets (Bld) [#/Vol] 230 10*3/uL Normal 150-450 [facility] Comment on above: Performed By: #### Jacqueline ARAUJO CMP, 1987-09, 53758-2 #### [facility] ([id number]) [address] [place] [address] RBC COUNT 4.01 X10E12/L Normal 3.80-5.20 [facility] Comment on above: Performed By: #### Jacqueline ARAUJO CMP, 1987-09, 29657-7 #### [facility] ([id number]) [address], [address] [place] [address] WBC (Bld) [#/Vol] 9.1 10*3/uL Normal 4.0-11.0 [facility] Comment on above: Performed By: #### C ARANZA ARAUJO, 1988-09, 24588-7 #### [facility] ([id number]) [address] [address] CREATININEon 04-04-2024 Creatinine [Mass/Vol] 0.60 mg/dL Normal 0.40-1.00 [facility] Comment on above: Result Comment: METH OD TRACEABLE TO IDMS STANDARD Performed By: #### C ARANZA ARAUJO, 1988-09, 21298-7 #### [facility] ([id number]) [address] [address] eGFR (CKD-EPI) NON-RACE DEPENDENT >90 Normal >59 [facility] Comment on above: Result Comment: Reported eGFR is based on the CKD-EPI 2020 equation that does not use a race coefficient. Performed By: #### C ARANZA ARAUJO, 18128-0 #### [facility] ([id number]) [address] [address] COMPLETE BLOOD COUNTon 03-27 Erythrocyte distribution width (RBC) [Ratio] 17.2 % High 11.5-15.0 [facility] Comment on above: Performed By: #### C ARANZA ARAUJO, 47828-6 #### [facility] ([id number]) [address] [address] Hematocrit (Bld) [Volume fraction] 40.0 % Normal 35-47 [facility] Comment on above: Performed By: #### C ARANZA ARAUJO, 89838-2 #### [facility] ([id number]) [address] [address] Hemoglobin (Bld) [Mass/Vol] 13.5 g/dL Normal 11.7-15.5 [facility] Comment on above: Performed By: #### C VAN, CMP, 1987-09, 86631-3 #### [facility] ([id number]) [address], [address] [place] [address] MCH (RBC) [Entitic mass] 31.7 pg Normal 27-34 [facility] Comment on above: Performed By: #### Jacqueline ARAUJO [facility], 1987-09, 49466-3 #### [facility] ([id number]) [address], [address] [place] [address] MCHC (RBC) [Mass/Vol] 33.7 g/dL Normal 32-36 [facility] Comment on above: Performed By: #### Jacqueline ARAUJO CMP, 1987-09, 76321-9 #### [facility] ([id number]) [address], [address] [place] [address] MCV (RBC) [Entitic vol] 94 fL Normal 80-100 [facility] Comment on above: Performed By: #### Jacqueline ARAUJO [facility], 1987-09, 96476-7 #### [facility] ([id number]) [address], [address] [place] [address] Platelet mean volume (Bld) [Entitic vol] 8.5 fL Normal 7-12 [facility] Comment on above: Performed By: #### Jacqueline ARAUJO CMP, 1987-09, 60473-5 #### [facility] ([id number]) [address], [address] [place] [address] Platelets (Bld) [#/Vol] 332 10*3/uL Normal 150-450 [facility] Comment on above: Performed By: #### Jacqueline ARAUJO CMP, 1987-09, 31282-0 #### [facility] ([id number]) [address], [address] [place] [address] RBC COUNT 4.26 X10E12/L Normal 3.80-5.20 [facility] Comment on above: Performed By: #### C ARANZA ARAUJO, 1987-09, 03853-7 #### [facility] ([id number]) [address] [address] WBC (Bld) [#/Vol] 10.4 10*3/uL Normal 4.0-11.0 [facility] Comment on above: Performed By: #### C ARANZA ARAUJO, 1987-09, 60822-5 #### [facility] ([id number]) [address], [address] [address] CREATININEon 03-27-2024 Creatinine [Mass/Vol] 0.69 mg/dL Normal 0.40-1.00 [facility] Comment on above: Result Comment: METH OD TRACEABLE TO IDMS STANDARD Performed By: #### C ARANZA ARAUJO, 1987-09, 22239-9 #### [facility] ([id number]) [address], [address] [address] eGFR (CKD-EPI) NON-RACE DEPENDENT >90 Normal >59 [facility] Comment on above: Result Comment: Reported eGFR is based on the CKD-EPI 2020 equation that does not use a race coefficient. Performed By: #### C ARANZA ARAUJO, 1987-09, 96501-7 #### [facility] ([id number]) [address] [address] COMPLETE BLOOD COUNTon 03-20 Erythrocyte distribution width (RBC) [Ratio] 19.0 % High 11.5-15.0 [facility] Comment on above: Performed By: #### C BC, LINE ASSEMBLER #### [facility] ([id number]) [address] [address] Hematocrit (Bld) [Volume fraction] 37.9 % Normal 35-47 [facility] Comment on above: Performed By: #### C BC, LINE ASSEMBLER #### [facility] ([id number]) [address], [address] [place] [address] Hemoglobin (Bld) [Mass/Vol] 12.6 g/dL Normal 11.7-15.5 [facility] Comment on above: Performed By: #### C KJ, LINE ASSEMBLER #### [facility] ([id number]) [address], [address] [place] [address] MCH (RBC) [Entitic mass] 31.8 pg Normal 27-34 [facility] Comment on above: Performed By: #### C KJ, LINE ASSEMBLER #### [facility] ([id number]) [address], [address] [place] [address] MCHC (RBC) [Mass/Vol] 33.2 g/dL Normal 32-36 [facility] [place] Comment on above: Performed By: #### C KJ, LINE ASSEMBLER #### [facility] ([id number]) [address], [address] [place] [address] MCV (RBC) [Entitic vol] 96 fL Normal 80-100 [facility] Comment on above: Performed By: #### Jacqueline UNDERWOOD, LINE ASSEMBLER #### [facility] ([id number]) [address], [address] [place] [address] Platelet mean volume (Bld) [Entitic vol] 8.4 fL Normal 7-12 [facility] [place] Comment on above: Performed By: #### Jacqueline UNDERWOOD, LINE ASSEMBLER #### [facility] ([id number]) [address], [address] [place] [address] Platelets (Bld) [#/Vol] 343 10*3/uL Normal 150-450 [facility] [place] Comment on above: Performed By: #### C KJ, LINE ASSEMBLER #### [facility] ([id number]) [address] [place] [address] RBC COUNT 3.95 X10E12/L Normal 3.80-5.20 [facility] Comment on above: Performed By: #### C KJ, LINE ASSEMBLER #### [facility] ([id number]) [address] [address] WBC (Bld) [#/Vol] 7.6 10*3/uL Normal 4.0-11.0 [facility] Comment on above: Performed By: #### C KJ, LINE ASSEMBLER #### [facility] ([id number]) [address] [address] CREATININEon 03-20-2024 Creatinine [Mass/Vol] 0.70 mg/dL Normal 0.40-1.00 [facility] [place] Comment on above: Result Comment: METH OD TRACEABLE TO IDMS STANDARD Performed By: #### C KJ, LINE ASSEMBLER #### [facility] ([id number]) [address] [address] eGFR (CKD-EPI) NON-RACE DEPENDENT >90 Normal >59 [facility] Comment on above: Result Comment: Reported eGFR is based on the CKD-EPI 2020 equation that does not use a race coefficient. Performed By: #### C KJ, LINE ASSEMBLER #### [facility] ([id number]) [address] [address] CBC AND AUTO DIFFon 03-16-20 24 ABSOLUTE BASOPHIL 0.0 X10E9/L Normal 0.0-0.2 [facility] Comment on above: Performed By: #### C ARANZA ARAUJO, 1988-09 #### [facility] ([id number]) [address] [address] ABSOLUTE NEUTROPHIL 5.5 X10E9/L Normal 1.5-6.6 [facility] Comment on above: Performed By: #### C VAN CMP, 1987-09 #### [facility] ([id number]) [address] [address] Basophils/100 WBC (Bld) 0.4 % Normal [facility] Comment on above: Performed By: #### Jacqueline ARAUJO [facility], 1987-09 #### [facility] ([id number]) [address] [address] [place] [address] Eosinophils (Bld) [#/Vol] 0.1 10*3/uL Normal 0.0-0.4 [facility] Comment on above: Performed By: #### Jacqueline ARAUJO CMP, 1987-09 #### [facility] ([id number]) [address], [facility] [[email or web address]] [address] [place] [address] Eosinophils/100 WBC (Bld) 1.9 % Normal [facility] Comment on above: Performed By: #### Jacqueline ARAUJO CMP, 1987-09 #### [facility] ([id number]) [address], [facility] [[email or web address]] [address] [place] [address] Erythrocyte distribution width (RBC) [Ratio] 18.1 % High 11.5-15.0 [facility] Comment on above: Performed By: #### Jacqueline ARAUJO CMP, 1987-09 #### [facility] ([id number]) [address], [facility] [[email or web address]] [address] [place] [address] Hematocrit (Bld) [Volume fraction] 39.2 % Normal 35-47 [facility] Comment on above: Performed By: #### Jacqueline ARAUJO CMP, 1987-09 #### [facility] ([id number]) [address] [place] [address] Hemoglobin (Bld) [Mass/Vol] 13.4 g/dL Normal 11.7-15.5 [facility] Comment on above: Performed By: #### Jacqueline ARAUJO CMP, 1987-09 #### [facility] ([id number]) [address] [address] [place] [address] Lymphocytes (Bld) [#/Vol] 1.7 10*3/uL Normal 1.0-3.5 [facility] Comment on above: Performed By: #### Jacqueline ARAUJO CMP, 1987-09 #### [facility] ([id number]) [address] [place] [address] Lymphocytes/100 WBC (Bld) 22.1 % Normal [facility] Comment on above: Performed By: #### Jacqueline ARAUJO CMP, 1987-09 #### [facility] ([id number]) [address] [place] [address] MCH (RBC) [Entitic mass] 32.2 pg Normal 27-34 [facility] Comment on above: Performed By: #### Jacqueline ARAUJO CMP, 1987-09 #### [facility] ([id number]) [address], [facility] [[email or web address]] [address] [place] [address] MCHC (RBC) [Mass/Vol] 34.2 g/dL Normal 32-36 [facility] Comment on above: Performed By: #### Jacqueline ARAUJO CMP, 1987-09 #### [facility] ([id number]) [address], [facility] [[email or web address]] [address] [place] [address] MCV (RBC) [Entitic vol] 94 fL Normal 80-100 [facility] Comment on above: Performed By: #### Jacqueline ARAUJO [facility], 1987-09 #### [facility] ([id number]) [address] [place] [address] Monocytes (Bld) [#/Vol] 0.5 10*3/uL Normal 0-0.9 [facility] Comment on above: Performed By: #### Jacqueline ARAUJO CMP, 1987-09 #### [facility] ([id number]) [address] [place] [address] Monocytes/100 WBC (Bld) 6.5 % Normal [facility] Comment on above: Performed By: #### Jacqueline ARAUJO CMP, 1987-09 #### [facility] ([id number]) [address] [place] [address] Neutrophils/100 WBC (Bld) 69.1 % Normal [facility] Comment on above: Performed By: #### Jacqueline ARAUJO CMP, 1987-09 #### [facility] ([id number]) [address], [facility] [[email or web address]] [address] [place] [address] Platelet mean volume (Bld) [Entitic vol] 8.1 fL Normal 7-12 [facility] Comment on above: Performed By: #### Jacqueline ARAUJO CMP, 1987-09 #### [facility] ([id number]) [address], [facility] [[email or web address]] [address] [place] [address] Platelets (Bld) [#/Vol] 358 10*3/uL Normal 150-450 [facility] Comment on above: Performed By: #### Jacqueline ARAUJO CMP, 1987-09 #### [facility] ([id number]) [address] [place] [address] RBC COUNT 4.17 X10E12/L Normal 3.80-5.20 [facility] Comment on above: Performed By: #### Jacqueline ARAUJO CMP, 1987-09 #### [facility] ([id number]) [address], [facility] [[email or web address]] [address] [place] [address] WBC (Bld) [#/Vol] 7.9 10*3/uL Normal 4.0-11.0 [facility] Comment on above: Performed By: #### Jacqueline ARAUJO CMP, 1987-09 #### [facility] ([id number]) [address], [address] [place] [address] COMPREHENSIVE METABOLIC PANE Alexandru 03-16-2024 Albumin [Mass/Vol] 3.4 g/dL Normal 3.2-5.3 [facility] Comment on above: Performed By: #### Jacqueline ARAUJO CMP, 1987-09 #### [facility] ([id number]) [address], [address] [place] [address] ALP [Catalytic activity/Vol] 52 U/L Normal 39-130 [facility] Comment on above: Performed By: #### Jacqueline ARAUJO CMP, 1987-09 #### [facility] ([id number]) [address], [address] [place] [address] ALT [Catalytic activity/Vol] 12 U/L Normal 0-31 [facility] Comment on above: Performed By: #### Jacqueline ARAUJO CMP, 1987-09 #### [facility] ([id number]) [address], [address] [place] [address] Anion gap [Moles/Vol] 11 mmol/L Normal 5-15 [facility] Comment on above: Performed By: #### Jacqueline ARAUJO CMP, 1987-09 #### [facility] ([id number]) [address], [address] [place] [address] AST [Catalytic activity/Vol] 17 U/L Normal 0-41 [facility] Comment on above: Performed By: #### Jacqueline ARAUJO CMP, 1987-09 #### [facility] ([id number]) [address], [address] [place] [address] Bilirubin [Mass/Vol] 0.4 mg/dL Normal 0.3-1.2 [facility] Comment on above: Performed By: #### Jacqueline ARAUJO CMP, 1987-09 #### [facility] ([id number]) [address], [address] [place] [address] Calcium [Mass/Vol] 9.7 mg/dL Normal 8.5-10.5 [facility] Comment on above: Performed By: #### Jacqueline ARAUJO CMP, 1987-09 #### [facility] ([id number]) [address], [address] [place] [address] Chloride [Moles/Vol] 109 mmol/L Normal 98-109 [facility] Comment on above: Performed By: #### Jacqueline ARAUJO CMP, 1987-09 #### [facility] ([id number]) [address], [address] [place] [address] CO2 [Moles/Vol] 20 mmol/L Low 22-32 [facility] Comment on above: Performed By: #### C ARANZA ARAUJO, 1987-09 #### [facility] ([id number]) [address], [facility] [[email or web address]] [address] [place] [address] Creatinine [Mass/Vol] 0.75 mg/dL Normal 0.40-1.00 [facility] Comment on above: Result Comment: METH OD TRACEABLE TO IDMS STANDARD Performed By: #### C ARANZA ARAUJO, 1987-09 #### [facility] ([id number]) [address], [address] [place] [address] eGFR (CKD-EPI) NON-RACE DEPENDENT >90 Normal >59 [facility] Comment on above: Result Comment: Reported eGFR is based on the CKD-EPI 2020 equation that does not use a race coefficient. Performed By: #### C ARANZA ARAUJO, 1987-09 #### [facility] ([id number]) [address], [address] [place] [address] Glucose [Mass/Vol] 88 mg/dL Normal 65-99 [facility] Comment on above: Performed By: #### Jacqueline ARAUJO CMP, 1987-09 #### [facility] ([id number]) [address] [address] [place] [address] Potassium [Moles/Vol] 3.9 mmol/L Normal 3.5-5.0 [facility] Comment on above: Performed By: #### Jacqueline ARAUJO CMP, 1987-09 #### [facility] ([id number]) [address] [address] [place] [address] Protein [Mass/Vol] 6.4 g/dL Normal 6.0-8.0 [facility] Comment on above: Performed By: #### Jacqueline ARAUJO CMP, 1987-09 #### [facility] ([id number]) [address], [address] [place] [address] Sodium [Moles/Vol] 140 mmol/L Normal 134-146 [facility] Comment on above: Performed By: #### Jacqueline ARAUJO [facility], 1987-09 #### [facility] ([id number]) [address], [address] [place] [address] Urea nitrogen [Mass/Vol] 9 mg/dL Normal 5-23 [facility] Comment on above: Performed By: #### Jacqueline ARAUJO [facility], 1987-09 #### [facility] ([id number]) [address], [facility] [[email or web address]] [address] [place] [address] CRP [Mass/Vol]on 03-16-2024 C REACTIVE PROTEIN 0.6 mg/dL Normal 0.000-0.744 [facility] Comment on above: Performed By: #### Jacqueline ARAUJO [facility], 1987-09 #### [facility] ([id number]) [address], [facility] [[email or web address]] [address] [place] [address] BLOOD CULTUREon 03-13-2024 Bacteria identified Aer cx Nom (Bld) CULTURE RESULTS NO GROWTH 5 DAYS Normal [facility] Bacteria identified Aer cx Nom (Bld) CULTURE RESULTS NO GROWTH 5 DAYS Normal [facility] CBC AND AUTO DIFFon 03-13-20 ABSOLUTE BASOPHIL 0.0 X10E9/L Normal 0.0-0.2 [facility] Comment on above: Performed By: #### Jacqueline ARAUJO CMP, 1987-09, 69781-5 #### [facility] ([id number]) [address], [address] [place] [address] ABSOLUTE NEUTROPHIL 5.4 X10E9/L Normal 1.5-6.6 [facility] Comment on above: Performed By: #### Jacqueline ARAUJO CMP, 1987-09, 07240-2 #### [facility] ([id number]) [address], [address] [place] [address] Basophils/100 WBC (Bld) 0.4 % Normal [facility] Comment on above: Performed By: #### Jacqueline ARAUJO [facility], 1987-09, 16964-6 #### [facility] ([id number]) [address], [address] [place] [address] Eosinophils (Bld) [#/Vol] 0.1 10*3/uL Normal 0.0-0.4 [facility] Comment on above: Performed By: #### Jacqueline ARAUJO [facility], 1987-09, 29464-1 #### [facility] ([id number]) [address], [address] [place] [address] Eosinophils/100 WBC (Bld) 1.6 % Normal [facility] Comment on above: Performed By: #### Jacqueline ARAUJO [facility], 1987-09, 02011-0 #### [facility] ([id number]) [address], [address] [place] [address] Erythrocyte distribution width (RBC) [Ratio] 18.4 % High 11.5-15.0 [facility] Comment on above: Performed By: #### Jacqueline ARAUJO [facility], 1987-09, 98083-9 #### [facility] ([id number]) [address], [facility] [[email or web address]] [address] [place] [address] Hematocrit (Bld) [Volume fraction] 39.0 % Normal 35-47 [facility] Comment on above: Performed By: #### Jacqueline ARAUJO [facility], 58016-5 #### [facility] ([id number]) [address], [facility] [[email or web address]] [address] [place] [address] Hemoglobin (Bld) [Mass/Vol] 13.7 g/dL Normal 11.7-15.5 [facility] Comment on above: Performed By: #### Jacqueline ARAUJO [facility], 31725-2 #### [facility] ([id number]) [address] [address] [place] [address] Lymphocytes (Bld) [#/Vol] 1.9 10*3/uL Normal 1.0-3.5 [facility] Comment on above: Performed By: #### Jacqueline ARAUJO CMP, 1987-09, 88298-5 #### [facility] ([id number]) [address] [address] [place] [address] Lymphocytes/100 WBC (Bld) 24.0 % Normal [facility] Comment on above: Performed By: #### Jacqueline ARAUJO [facility], 1987-09, 46133-1 #### [facility] ([id number]) [address] [address] [place] [address] MCH (RBC) [Entitic mass] 32.5 pg Normal 27-34 [facility] Comment on above: Performed By: #### Jacqueline ARAUJO [facility], 1987-09, 00118-0 #### [facility] ([id number]) [address] [address] [place] [address] MCHC (RBC) [Mass/Vol] 35.0 g/dL Normal 32-36 [facility] Comment on above: Performed By: #### Jacqueline ARAUJO CMP, 1987-09, 32154-6 #### [facility] ([id number]) [address] [address] [place] [address] MCV (RBC) [Entitic vol] 93 fL Normal 80-100 [facility] Comment on above: Performed By: #### Jacqueline ARAUJO CMP, 1987-09, 46423-7 #### [facility] ([id number]) [address] [address] [place] [address] Monocytes (Bld) [#/Vol] 0.4 10*3/uL Normal 0-0.9 [facility] Comment on above: Performed By: #### Jacqueline ARAUJO CMP, 1987-09, 94233-5 #### [facility] ([id number]) [address], [address] [place] [address] Monocytes/100 WBC (Bld) 4.7 % Normal [facility] Comment on above: Performed By: #### Jacqueline ARAUJO CMP, 1987-09, 55830-5 #### [facility] ([id number]) [address], [address] [place] [address] Neutrophils/100 WBC (Bld) 69.3 % Normal [facility] Comment on above: Performed By: #### Jacqueline ARAUJO [facility], 1987-09, 56830-0 #### [facility] ([id number]) [address], [address] [place] [address] Platelet mean volume (Bld) [Entitic vol] 7.9 fL Normal 7-12 [facility] Comment on above: Performed By: #### Jacqueline ARAUJO CMP, 1987-09, 69890-9 #### [facility] ([id number]) [address], [address] [place] [address] Platelets (Bld) [#/Vol] 376 10*3/uL Normal 150-450 [facility] Comment on above: Performed By: #### Jacqueline ARAUJO CMP, 1987-09, 32846-8 #### [facility] ([id number]) [address], [address] [place] [address] RBC COUNT 4.20 X10E12/L Normal 3.80-5.20 [facility] Comment on above: Performed By: #### Jacqueline ARAUJO CMP, 1987-09, 48827-5 #### [facility] ([id number]) [address], [address] [place] [address] WBC (Bld) [#/Vol] 7.8 10*3/uL Normal 4.0-11.0 [facility] Comment on above: Performed By: #### Jacqueline ARAUJO CMP, 1987-09, 72863-2 #### [facility] ([id number]) [address], [address] [place] [address] COMPREHENSIVE METABOLIC PANE Alexandru 03-13-2024 Albumin [Mass/Vol] 3.4 g/dL Normal 3.2-5.3 [facility] Comment on above: Performed By: #### C VAN [facility], 1987-09, 46015-7 #### [facility] ([id number]) [address], [address] [place] [address] ALP [Catalytic activity/Vol] 57 U/L Normal 39-130 [facility] Comment on above: Performed By: #### C VAN [facility], 1987-09, 77907-6 #### [facility] ([id number]) [address], [address] [place] [address] ALT [Catalytic activity/Vol] 14 U/L Normal 0-31 [facility] Comment on above: Performed By: #### C [facility]AN [facility], 1987-09, 53592-9 #### [facility] ([id number]) [address], [address] [place] [address] Anion gap [Moles/Vol] 8 mmol/L Normal 5-15 [facility] Comment on above: Performed By: #### C [facility]AN [facility], 1987-09, 84115-2 #### [facility] ([id number]) [address], [address] [place] [address] AST [Catalytic activity/Vol] 19 U/L Normal 0-41 [facility] Comment on above: Performed By: #### C [facility]AN [facility], 90909-3 #### [facility] ([id number]) [address], [address] [place] [address] Bilirubin [Mass/Vol] 0.4 mg/dL Normal 0.3-1.2 [facility] Comment on above: Performed By: #### C VAN CMP, 1987-09, 48165-4 #### [facility] ([id number]) [address], [address] [place] [address] Calcium [Mass/Vol] 9.3 mg/dL Normal 8.5-10.5 [facility] Comment on above: Performed By: #### C [facility], 1987-09, 21871-4 #### [facility] ([id number]) [address], [address] [place] [address] Chloride [Moles/Vol] 105 mmol/L Normal 98-109 [facility] Comment on above: Performed By: #### C [facility], 1987-09, 96508-4 #### [facility] ([id number]) [address], [address] [place] [address] CO2 [Moles/Vol] 28 mmol/L Normal 22-32 [facility] Comment on above: Performed By: #### C [facility], 1987-09, 19349-1 #### [facility] ([id number]) [address], [facility] [[email or web address]] [address] [place] [address] Creatinine [Mass/Vol] 0.82 mg/dL Normal 0.40-1.00 [facility] Comment on above: Result Comment: METH OD TRACEABLE TO IDMS STANDARD Performed By: #### C [facility]AN [facility], 1987-09, 90103-4 #### [facility] ([id number]) [address], [address] [place] [address] GFR/1.73 sq M.predicted among non-blacks MDRD (S/P/Bld) [Vol rate/Area] 84 mL/min/{1.73_m2} Normal >59 [facility] Comment on above: Result Comment: Reported eGFR is based on the CKD-EPI 2020 equation that does not use a race coefficient. Performed By: #### C [facility], 1987-09, 83275-3 #### [facility] ([id number]) [address], [address] [place] [address] Glucose [Mass/Vol] 97 mg/dL Normal 65-99 [facility] Comment on above: Performed By: #### C [facility], 1987-09, 98759-2 #### [facility] ([id number]) [address], [address] [place] [address] Potassium [Moles/Vol] 3.1 mmol/L Low 3.5-5.0 [facility] Comment on above: Performed By: #### C [facility], 18412-8 #### [facility] ([id number]) [address], [address] [place] [address] Protein [Mass/Vol] 6.3 g/dL Normal 6.0-8.0 [facility] Comment on above: Performed By: #### Jacqueline ARAUJO [facility], 28020-7 #### [facility] ([id number]) [address], [address] [place] [address] Sodium [Moles/Vol] 141 mmol/L Normal 134-146 [facility] Comment on above: Performed By: #### Jacqueline ARAUJO CMP, 41582-8 #### [facility] ([id number]) [address], [address] [place] [address] Urea nitrogen [Mass/Vol] 8 mg/dL Normal 5-23 [facility] Comment on above: Performed By: #### C [facility], 84098-4 #### [facility] ([id number]) [address] [place] [address] CRP [Mass/Vol]on 03-13-2024 C REACTIVE PROTEIN 0.7 mg/dL Normal 0.000-0.744 [facility] Comment on above: Performed By: #### Jacqueline ARAUJO CMP, 76472-9 #### [facility] ([id number]) [address], [address] [place] [address] ESR Photometric method (Bld) [Velocity]on 03-13-2024 ESR, ERYTHROCYTE SEDIMENTATION RATE 39 mm/h High 0-30 [facility] Comment on above: Performed By: #### C BCA, CMP, 1987-09, 78590-0 #### [facility] ([id number]) [address], [address] [place] [address] ASPIRATE CULTUREon Bacteria identified Aer cx Nom [...] <=1 F PIPERACIL/TAZOBACTAM S <=4 F Susceptible [facility] Comment on above: Performed By: #### 5 97-5 #### [facility] ([id number]) [address] [place] [address] AND DIFFon 2023 BODY FLUID COMMENT Interpreta tion--- ----- Normal [facility] Comment on above: Result Comment: Refe rence values for this fluid type are undefined, as fluid accumulation is considered abnormal. Performed By: #### B FCT #### [facility] ([id number]) [address] [place] [address] FLUID CLARITY CLOUDY Normal [facility] Comment on above: Performed By: #### B FCT #### [facility] ([id number]) [address], [address] [place] [address] FLUID COLOR HONG Normal [facility] Comment on above: Performed By: #### B FCT #### [facility] ([id number]) [address], [address] [place] [address] FLUID LYMPHOCYTE 5 % Normal [facility] Comment on above: Performed By: #### B FCT #### [facility] ([id number]) [address], [address] [place] [address] FLUID NEUTROPHILS 75 % Normal [facility] Comment on above: Performed By: #### B FCT #### [facility] ([id number]) [address] [place] [address] [place] [address] /uL Normal [facility] Comment on above: Performed By: #### B FCT #### [facility] ([id number]) [address] [place] [address] FLUID SPECIMEN TYPE ASPIRATE Normal [facility] Comment on above: Result Comment: ABDO MISAEL PUMP POCKET Performed By: #### B FCT #### [facility] ([id number]) [address] [place] [address] MACROPHAGES 20 % Normal [facility] Comment on above: Performed By: #### B FCT #### [facility] ([id number]) [address] [place] [address] 4888 /uL Normal [facility] Comment on above: Performed By: #### B FCT #### [facility] ([id number]) [address] [place] [address] Infectious Disease Office/Cl inic Noteon 11-10-2023 Infectious Disease Office/Clinic Note Assessment/Plan 1. Postoperative wound infection Plan: Unfortunately there is no other good oral options for coverage of Pseudomonas. She is advised to stop taking doxycycline as this will help her symptoms. I did call Dr. Montes his PA Hammad called back. She advised me to send patient back to [facility]. This is where she had her surgery done. She may need to MRI possible washout. This underwriter did call [facility] talk to charge nurse Dagmar gave her [...] and fusion by Dr. Saint Gregory at [facility]. She was discharged home on the . She was discharged on cephalexin for 10 days. She was taken back to surgery on October 11 due to persistent drainage and wound dehiscence. She had a fluid collection which was most consistent with seroma/infection . The surgery was done in [place]. Cultures grew Pseudomonas and she was discharged [...] data Procedure/Surgical History Neck Surgery Stomach Pain [facility] (09/02/2023) incision & drainage (10/12/2023) Medications cyclobenzaprine 10 mg oral tablet, 45 EA, 0 Refill(s), TAKE 1 TABLET BY MOUTH THREE TIMES DAILY NEEDED FOR MUSCLE SPASMS DULoxetine 60 mg oral delayed release capsule, 90 EA, 0 Refill(s), TAKE 1 CAPSULE BY MOUTH EVERY DAY ibuprofen 800 mg oral tablet, 270 EA, 0 Refill(s) Potassium Chloride ( (more content not included)... Normal [facility] .eGFRon 10-26-2023 GFR/1.73 sq M.predicted MDRD (S/P/Bld) [Vol rate/Area] mL/min/{1.73_m2} Normal >=60 [facility] Comment on above: Order Comment: Order added by Discern rule Result Comment: [facility] have implemented the eGFR calculation [...] years Performed By: #### E GFR #### [facility] [address] [place] [address] Basic Metabolic Profileon Anion gap [Moles/Vol] 10 mmol/L Normal -12 [facility] Comment on above: Performed By: #### C [id number] #### [facility] [address] [place] [address] Calcium [Mass/Vol] 9.4 mg/dL Normal 8.5-10.3 [facility] Comment on above: Performed By: #### C D:[id number] #### [facility] [address] [place] [address] Chloride [Moles/Vol] 101 mmol/L Normal 98-110 [facility] Comment on above: Performed By: #### C [id number] #### [address] [address] CO2 [Moles/Vol] 26 mmol/L Normal 22-32 [facility] Comment on above: Performed By: #### C [id number] #### [address] [address] Creatinine [Mass/Vol] 0.81 mg/dL Normal 0.44-1.03 [facility] Comment on above: Performed By: #### C [id number] #### [address] [address] Glucose [Mass/Vol] 82 mg/dL Normal 70-99 [facility] Comment on above: Performed By: #### C D:[id number] #### [address] [address] Potassium [Moles/Vol] 2.7 mmol/L Low 3.4-4.8 [facility] Comment on above: Performed By: #### C [id number] #### [address] [address] Sodium [Moles/Vol] 137 mmol/L Normal 133-142 [facility] Comment on above: Performed By: #### C [id number] #### [address] [address] Urea nitrogen [Mass/Vol] 15 mg/dL Normal 8-26 [facility] Comment on above: Performed By: #### C [id number] #### [address] [address] Urea nitrogen/Creatinin e [Mass ratio] 18.5 mg/mg Normal 10.0-20.0 [facility] Comment on above: Performed By: #### C [id number] #### [address] [address] CBC w/ Diffon 10-26-2023 Erythrocyte distribution width (RBC) [Ratio] 15.2 % High 11.6-14.8 [facility] Comment on above: Performed By: #### C BC #### [place] [id number] Hematocrit (Bld) [Volume fraction] 38.9 % Normal 36.0-46.0 [facility] Comment on above: Performed By: #### C BC #### [place] [address] Hemoglobin (Bld) [Mass/Vol] 12.9 g/dL Normal 12.0-16.0 [facility] Comment on above: Performed By: #### C BC #### [place] [id number] MCH (RBC) [Entitic mass] 31.5 pg Normal 27.0-35.0 [facility] Comment on above: Performed By: #### C BC #### [place] [address] MCHC 33.1 % Normal 31.0-37.0 [facility] Comment on above: Performed By: #### C BC #### [place] [address] MCV (RBC) [Entitic vol] 95.0 fL Normal 80.0-100.0 [facility] Comment on above: Performed By: #### C BC #### [place] [id number] Platelet 367 x10*3/mcL Normal 150-450 [facility] Comment on above: Performed By: #### C BC #### [address] [address] Platelet mean volume (Bld) [Entitic vol] 7.7 fL Normal 6.7-10.6 [facility] Comment on above: Performed By: #### C BC #### [address] [address] RBC 4.10 x10*6/mcL Normal 3.80-5.20 [facility] Comment on above: Performed By: #### C BC #### [address] [address] WBC 12.3 x10*3/mcL High 4.5-11.0 [facility] Comment on above: Performed By: #### C BC #### [address] [address] CRPon 10-26-2023 CRP 2.71 mg/dL High 0.00-0.75 [facility] Comment on above: Result Comment: CRP measurement is useful for assessment of non-specific INFLAMMATORY RESPONSE to infection or injury AND is a sensitive MARKER of ACUTE INFLAMMATION including CARDIAC RISK ASSESSMENT. CARDIAC patients with elevated CRP are POTENTIALLY at a HIGHER RISK OF FUTURE CARDIAC EVENTS. Performed By: #### C RP #### [address] [address] Diff Autoon 10-26-2023 Baso Absolute 0.1 x10*3/mcL Normal 0.0-0.2 [facility] Comment on above: Performed By: #### . Automated Diff #### [address] [address] [address] Basophils/100 WBC (Bld) 0.5 % Normal 0.0-1.5 [facility] Comment on above: Performed By: #### . Automated Diff #### [address] [address] Eos Absolute 0.3 x10*3/mcL Normal 0.0-0.4 [facility] Comment on above: Performed By: #### . Automated Diff #### [address] [address] Eosinophils/100 WBC (Bld) 2.1 % Normal 0.0-5.4 [facility] Comment on above: Performed By: #### . Automated Diff #### [address] [address] Lymph Absolute 2.2 x10*3/mcL Normal 1.0-4.8 [facility] Comment on above: Performed By: #### . Automated Diff #### [address] [place] [address] Lymphocytes/100 WBC (Bld) 18.0 % Low 27.2-40.8 [facility] Comment on above: Performed By: #### . Automated Diff #### [address] [address] [place] Absolute 0.6 x10*3/mcL Normal 0.1-1.1 [facility] Comment on above: Performed By: #### . Automated Diff #### [address] [address] Monocytes/100 WBC (Bld) 4.9 % Normal 3.7-11.9 [facility] Comment on above: Performed By: #### . Automated Diff #### [address] [address] Neutro Absolute 9.2 x10*3/mcL High 1.8-7.7 [facility] Comment on above: Performed By: #### . Automated Diff #### [address] [address] Neutro Auto 74.5 % High 47.2-70.8 [facility] Comment on above: Performed By: #### . Automated Diff #### [address] [address] ESRon 10-26-2023 Sed Rate 67 mm/hr High 0-30 [facility] Comment on above: Performed By: #### E SR #### [place] [id number] Infectious Disease Office/Cl inic Noteon 10-26-2023 Infectious [...] tabs, 0 Refill(s), 11/09/23 10:12:00 EDT, Pharmacy: [facility] #[id number] Basic Metabolic Profile C-Reactive Protein Complete Blood Count w/ Differential Erythrocyte Sedimentation Rate 2. Pseudomonas infection As above Ordered: levoFLOXacin, 1 tabs, Oral, q24hr, X 14 days, # 14 tabs, 0 Refill(s), 11/09/23 10:12:00 EDT, Pharmacy: [facility] #[id number] Basic Metabolic Profile C-Reactive Protein Complete Blood Count w/ Differential Erythrocyte Sedimentation Rate Chief Complaint New pt I&D done at [facility], possible infection of back. History of Present Illness Seen today for persistent drainage after back surgery on September 01. She had L3-L4 decompression and fusion by Dr. Saint Gregory at [facility]. She was discharged home on the . She was discharged on cephalexin for 10 days. She was taken back to surgery on October 11 due to persistent drainage and wound dehiscence. She had a fluid collection which was most consistent with seroma/infection . The surgery was done in [place]. Cultures grew Pseudomonas and she was discharged on Cipro. She could not tolerate it and stopped it after 3 days. After the 10 days of cephalexin initially, she received cephalexin September [address] [facility]. She apparently got doxycycline and azithromycin [...] data Procedure/Surgical History Neck Surgery Stomach Pain [facility] (09/02/2023) incision & drainage (10/12/2023) Medications [...] SARS-CoV-2 (COVID-19 (more content not included)... Normal [facility] Provider Letteron 10-26-2023 Provider Letter (Inserted Image. Shelly ble to display) Tejas Richardson DO [address] [place] [address] Re: Radha Dakota Date of Visit: 10/26/[address] Richardson, Thank you for your referral to my office. Attached you will find the most recent office visit note. Please call if you have any questions or concerns. Sincerely, Pavel Rodriges MD [address] [facility], [address] [place] [address] The following document(s) were included in the letter: October 26, 2023 10:13:55 EDT - (10/26/2023) Infectious Disease Office Visit Note Normal [facility] ELECTROLYTESon 08-22-2023 Anion gap [Moles/Vol] 8 mmol/L Normal 5-15 [facility] Comment on above: Performed By: #### E LEC #### [facility] ([id number]) [address], [facility] [[email or web address]] [address] [place] [address] Chloride [Moles/Vol] 110 mmol/L High 98-109 [facility] Comment on above: Performed By: #### E LEC #### [facility] ([id number]) [address] [facility], [address] [place] [address] CO2 [Moles/Vol] 23 mmol/L Normal 22-32 [facility] Comment on above: Performed By: #### E LEC #### [facility] ([id number]) [address] [address] [place] [address] Potassium [Moles/Vol] 4.4 mmol/L Normal 3.5-5.0 [facility] Comment on above: Performed By: #### E LEC #### [facility] ([id number]) [address] [facility] [address] [place] [address] Sodium [Moles/Vol] 141 mmol/L Normal 134-146 [facility] Comment on above: Performed By: #### E LEC #### [facility] ([id number]) [address] [facility], [address] [place] [address] CARDIAC AZAR ADMITon 03-07- 020 CK [Catalytic activity/Vol] 915 U/L Critically high 30-135 [facility] Comment on above: Result Comment: Test repeated. Critical value verified. Performed By: #### D RUGRPD #### [facility] [address] [place], [place] [id number] Christian Mikayla CK.MB [Mass/Vol] 12.82 ng/mL Critically high <=2.37 [facility] Comment on above: Result Comment: Test repeated. Critical value verified. Performed By: #### D RUGRPD #### [facility] [address] [place], [place] [id number] Christian Mikayla INR Coag (Bld) [Relative time] SEE BELOW Normal [facility] Comment on above: Result Comment: <0.0 34 ng/ml NEGATIVE 0.034-0.119 INDETERMINATE 0.120 AMI CUT OFF Performed By: #### D RUGRPD #### [facility] [address] [place], [place] [id number] Christian Mikayla ÁNGEL 96.0 ng/mL Critically high <=61.5 [facility] Comment on above: Performed By: #### D RUGRPD #### [facility] [address] [place], [place] [id number] Christian Mikayla TROP 0.028 ng/mL Normal <=0.034 [facility] Comment on above: Performed By: #### D RUGRPD #### [facility] [address] [place], [place] [id number] Christian Mikayla CK [Catalytic activity/Vol] 1282 U/L Critically high 30-135 [facility] Comment on above: Result Comment: Test repeated. Critical value verified. Performed By: #### T ROP, CMP #### [facility] [address] [place] [address] Christian eDgroot CK.MB [Mass/Vol] 24.63 ng/mL Critically high <=2.37 Th e [facility] Comment on above: Result Comment: Test repeated. Critical value verified. Performed By: #### T ROP, CMP #### [facility] [address] [place], [place] [id number] Christian Santanaen INR Coag (Bld) [Relative time] SEE BELOW Normal [facility] Comment on above: Result Comment: <0.0 34 ng/ml NEGATIVE 0.034-0.119 INDETERMINATE 0.120 AMI CUT OFF Performed By: #### T ROP, CMP #### [facility] [address] [place] [address] Christian Mikayla ÁNGEL 235.0 ng/mL Critically high <=61.5 [facility] Comment on above: Performed By: #### T ROP, CMP #### [facility] [address] [place] [address] Christian Mikayla TROP 0.033 ng/mL Normal <=0.034 [facility] Comment on above: Performed By: #### T ROP, CMP #### [facility] [address] [place], [place] [id number] Christian Mikayla CBC AUTO DIFFon 03-07-2020 Basophils (Bld) [#/Vol] 0.0 103/ul Normal 0.0-0.1 [facility] Comment on above: Performed By: #### C BC #### [facility] [address] [place], [place] [id number] Christian Mikayla Basophils/100 WBC (Bld) 0.1 % Critically low 0.2-2.0 [facility] Comment on above: Performed By: #### C BC #### [facility] [address] [place], [place] [id number] Christian Mikayla Eosinophils (Bld) [#/Vol] 0.0 103/ul Normal 0.0-0.7 [facility] Comment on above: Performed By: #### C BC #### [facility] [address] [place], [place] [id number] Christian Mikayla Eosinophils/100 WBC (Bld) 0.0 % Critically low 0.9-7.0 [facility] Comment on above: Performed By: #### C BC #### [facility] [address] [place], [place] [id number] Christianvíctor Degroot Erythrocyte distribution width (RBC) [Ratio] 13.4 % Normal 11.0-15.0 [facility] Comment on above: Performed By: #### C BC #### [facility] [address] [place], [place] [id number] Christian Mikayla Hematocrit (Bld) [Volume fraction] 35.4 % Critically low 36.0-48.0 [facility] Comment on above: Performed By: #### C BC #### [facility] [address] [place] [address] Christian Mikayla Hemoglobin (Bld) [Mass/Vol] 11.4 g/dL Critically low 12.0-16.0 [facility] Comment on above: Performed By: #### C BC #### [facility] [address] [place] [address] Christian Mikayla IG # 0.07 10e3/ul Critically high 0.00-0.03 [facility] Comment on above: Performed By: #### C BC #### [facility] [address] [place] [address] Christian Mikayla IG % 0.4 % Normal 0.0-0.5 [facility] Comment on above: Performed By: #### C BC #### [facility] [address] [place], [place] [id number] Christian Mikayla Lymphocytes (Bld) [#/Vol] 1.1 103/ul Critically low 1.2-3.8 [facility] Comment on above: Performed By: #### C BC #### [facility] [address] [place], [place] [id number] Christian Mikayla Lymphocytes/100 WBC (Bld) 6.9 % Critically low 20.5-60.0 [facility] Comment on above: Performed By: #### C BC #### [facility] [address] [place], [place] [id number] Christian Mikayla MANUAL DIFF REQ NO Normal [facility] Comment on above: Performed By: #### C BC #### [facility] [address] [place], [place] [address] Christianvíctor Degroot MCH (RBC) [Entitic mass] 32.7 pg Normal 26.7-34.0 [facility] Comment on above: Performed By: #### C BC #### [facility] [address] [place], [place] [address] Christianvíctor Santanaen MCHC (RBC) [Mass/Vol] 32.2 g/dL Normal 29.9-35.2 [facility] Comment on above: Performed By: #### C BC #### [facility] [address] [place], [place] [id number] Christian Mikayla MCV (RBC) [Entitic vol] 101.4 fL Critically high 81.0-99.0 [facility] Comment on above: Performed By: #### C BC #### [facility] [address] [place], [place] [id number] Christian Mikayla Monocytes (Bld) [#/Vol] 1.4 103/ul Critically high 0.3-0.8 [facility] Comment on above: Performed By: #### C BC #### [facility] [address] [place], [place] [id number] Christian Mikayla Monocytes/100 WBC (Bld) 8.6 % Normal 1.7-12.0 [facility] Comment on above: Performed By: #### C BC #### [facility] [address] [place], [place] [id number] Christian Mikayla Neutrophils (Bld) [#/Vol] 13.4 103/ul Critically high 1.4-6.5 [facility] Comment on above: Performed By: #### C BC #### [facility] [address] [place], [place] [id number] Christian Mikayla Neutrophils/100 WBC (Bld) 84.0 % Critically high 43.0-75.0 [facility] Comment on above: Performed By: #### C BC #### [facility] [address] [place], [place] [id number] Christian Mikayla Platelet mean volume (Bld) [Entitic vol] 9.5 fL Normal 9.5-13.5 [facility] Comment on above: Performed By: #### C BC #### [facility] [address] [place], [place] [id number] Christianvíctor Santanaen Platelets (Bld) [#/Vol] 207 103/ul Normal 150-450 [facility] Comment on above: Performed By: #### C BC #### [facility] [address] [place], [place] [id number] Christian Mikayla RBC (Bld) [#/Vol] 3.49 106/ul Critically low 4.20-5.40 [facility] Comment on above: Performed By: #### C BC #### [facility] [address] [place], [place] [id number] Christian Mikayla WBC (Bld) [#/Vol] 16.0 103/ul Critically high 4.0-11.0 [facility] Comment on above: Performed By: #### C BC #### [facility] [address] [place], [place] [id number] Christian Mikayla PROF CHEM 8 (BAS METB)on Anion gap [Moles/Vol] 11.2 mmol/L Normal [facility] Comment on above: Performed By: #### D RUGRPD #### [facility] [address] [place], [place] [id number] Christian Mikayla Calcium [Mass/Vol] 8.3 mg/dL Critically low 8.4-10.2 [facility] Comment on above: Performed By: #### D RUGRPD #### [facility] [address] [place], [place] [id number] Christian Mikayla Chloride [Moles/Vol] 106 mmol/L Normal 98-107 [facility] Comment on above: Performed By: #### D RUGRPD #### [facility] [address] [place], [place] [id number] Christian Mikayla CO2 [Moles/Vol] 24.5 mmol/L Normal 22.0-30.0 [facility] Comment on above: Performed By: #### D RUGRPD #### [facility] [address] [place] [id number] Christian Mikayla Creatinine [Mass/Vol] 0.53 mg/dL Normal 0.52-1.04 [facility] Comment on above: Performed By: #### D COLT #### [facility] [address] [place] [id number] Christian Mikayla EGFR-AF MARTINIQUAIS >60 Normal >=60 [facility] Comment on above: Performed By: #### D RUGLANDYD #### [facility] [address] [place] [id number] Christian Mikayla EGFR-NON AF MARTINIQUAIS >60 Normal >=60 [facility] Comment on above: Performed By: #### D COLT #### [facility] [address] [place] [address] Christian Mikayla Glucose [Mass/Vol] 113 mg/dL Critically high 74-106 [facility] Comment on above: Performed By: #### D COLT #### [facility] [address] [place] [address] Christian Mikayla Potassium [Moles/Vol] 3.7 mmol/L Normal 3.4-5.0 [facility] Comment on above: Performed By: #### D COLT #### [facility] [address] [place], [place] [id number] Christian Mikayla Sodium [Moles/Vol] 138 mmol/L Normal 137-145 [facility] Comment on above: Performed By: #### D COLT #### [facility] [address] [place] [address] Christian Mikayla Urea nitrogen [Mass/Vol] 12.0 mg/dL Normal 7.0-17.0 [facility] Comment on above: Performed By: #### D COLT #### [facility] [address] [place], [place] [id number] Christian Mikayla Urea nitrogen/Creatinin e [Mass ratio] 22.6 mg/mg Normal [facility] Comment on above: Performed By: #### D COLT #### [facility] [address] [place] [id number] Christian Mikayla CBC W MANUAL DIFFon 03-06-20 20 ATYPICAL LYMPH # Normal [facility] Comment on above: Performed By: #### D RUGRPD #### [facility] [address] [place] [address] Christian Mikayla ATYPICAL LYMPH % Normal [facility] Comment on above: Performed By: #### D RUGRPD #### [facility] [address] [place] [address] Christian Mikayla BAND # Normal 0.0-0.3 [facility] Comment on above: Performed By: #### D RUGRPD #### [facility] [address] [place] [address] Christian Mikayla BAND % Normal 0-5 [facility] Comment on above: Performed By: #### D RUGRPD #### [facility] [address] [place] [address] Christian Mikayla BASOM # 0.00 103/ul Normal 0.00-0.10 [facility] Comment on above: Performed By: #### D RUGRPD #### [facility] [address] [place] [address] Christian Mikayla BASOM % 0.0 % Critically low 0.2-2.0 [facility] Comment on above: Performed By: #### D RUGRPD #### [facility] [address] [place] [address] Christian Mikayla BLAST # Normal [facility] Comment on above: Performed By: #### D RUGRPD #### [facility] [address] [place] [address] Christian Mikayla BLAST % Normal [facility] Comment on above: Performed By: #### D RUGRPD #### [facility] [address] [place] [address] Christian Mikayla CORRECTED WBC Normal 4.0-11.0 [facility] Comment on above: Performed By: #### D RUGRPD #### [facility] [address] [place] [address] Christian Mikayla Eosinophils (Bld) [#/Vol] 0.00 103/ul Normal 0.00-0.70 [facility] Comment on above: Performed By: #### D RUGRPD #### [facility] [address] [place], [place] [id number] Christian Mikayla Eosinophils/100 WBC (Bld) 0.0 % Critically low 0.9-7.0 [facility] Comment on above: Performed By: #### D RUGRPD #### [facility] [address] [place], [place] [id number] Christian Mikayla Erythrocyte distribution width (RBC) [Ratio] 13.2 % Normal 11.0-15.0 [facility] Comment on above: Performed By: #### D RUGRPD #### [facility] [address] [place], [place] [id number] Christian Mikayla Hematocrit (Bld) [Volume fraction] 44.1 % Normal 36.0-48.0 [facility] Comment on above: Performed By: #### D RUGRPD #### [facility] [address] [place], [place] [id number] Christian Mikayla Hemoglobin (Bld) [Mass/Vol] 13.9 g/dl Normal 12.0-16.0 [facility] Comment on above: Performed By: #### D RUGRPD #### [facility] [address] [place] [address] Christian Mikayla LYMPHM # 0.26 103/ul Critically low 1.20-3.[address] [facility] Comment on above: Performed By: #### D RUGRPD #### [facility] [address] [place], [place] [id number] Christian Mikayla LYMPHM% 1.0 % Critically low 20.5-60.0 [facility] Comment on above: Performed By: #### D RUGRPD #### [facility] [address] [place], [place] [id number] Christian Mikayla MCH (RBC) [Entitic mass] 32.6 pg Normal 26.7-34.0 [facility] Comment on above: Performed By: #### D RUGRPD #### [facility] [address] [place], [place] [id number] Christian Mikayla MCHC (RBC) [Mass/Vol] 31.5 g/dl Normal 29.9-35.2 [facility] Comment on above: Performed By: #### D RUGRPD #### [facility] [address] [place] [address] Christian Degroot MCV (RBC) [Entitic vol] 103.3 fL Critically high 81.0-99.0 [facility] Comment on above: Performed By: #### D RUGRPD #### [facility] [address] [place] [address] Christian Mikayla METAMYELOCYTE # Normal [facility] Comment on above: Performed By: #### D RUGRPD #### [facility] [address] [place] [address] Christianvíctor Degroot METAMYELOCYTE % Normal [facility] Comment on above: Performed By: #### Dwayne LESLIERPD #### [facility] [address] [place] [address] Christian Mikayla MONOM# 1.32 103/ul Critically high 0.30-0.80 [facility] Comment on above: Performed By: #### Dwayne LESLIERPD #### [facility] [address] [place] [address] Christian Mikayla MONOM% 5.0 % Normal 1.7-12.0 [facility] Comment on above: Performed By: #### Dwayne LESLIERPD #### [facility] [address] [place] [address] Christian Mikayla MYELOCYTE # Normal [facility] Comment on above: Performed By: #### D RUGRPD #### [facility] [address] [place] [address] Christian Mikayla MYELOCYTE % Normal [facility] Comment on above: Performed By: #### D MARIAMARPD #### [facility] [address] [place] [address] Christian Degroot NRBC Normal [facility] Comment on above: Performed By: #### D MARIAMARPD #### [facility] [address] [place] [address] Christian Degroot Platelet mean volume (Bld) [Entitic vol] 9.6 fL Normal 9.5-13.5 [facility] Comment on above: Performed By: #### D MARIAMARPD #### [facility] [address] [place] [id number] Christian Degroot Platelets (Bld) [#/Vol] 268 103/ul Normal 150-450 [facility] Comment on above: Performed By: #### D JUNED #### [facility] [address] [place], [place] [id number] Christian Degroot RBC (Bld) [#/Vol] 4.27 106/ul Normal 4.20-5.40 [facility] Comment on above: Performed By: #### D JUNED #### [facility] [address] [place], [place] [id number] Christian Degroot SEG # 24.82 103/ul Critically high 1.40-6.50 [facility] Comment on above: Performed By: #### D COLT #### [facility] [address] [place], [place] [id number] Christian Degroot Segmented neutrophils/100 WBC (Bld) 94.0 % Critically high 43.0-75.0 [facility] Comment on above: Performed By: #### D JUNED #### [facility] [address] [place], [place] [id number] Christian Degroot WBC (Bld) [#/Vol] 26.4 103/ul Critically high 4.0-11.0 [facility] Comment on above: Performed By: #### D JUNED #### [facility] [address] [place], [place] [id number] Christian Degroot CPKon 03-06-2020 CK [Catalytic activity/Vol] 464 U/L Critically high 30-135 [facility] Comment on above: Result Comment: test repeated critical value verified Performed By: #### C K #### [facility] [address] [place], [place] [id number] Christian Degroot CT ABD/PELV W CONon 03-06-20 [...] by: MAT CASEY Date: 2020-03-06 18:45 [address] [facility] [address] STROKE HEAD WOon 03-06-20 [...] MAT CASEY Date: 2020-03-06 16:31 Normal [facility] DRUG SCREEN RAPID (URINE)on 03-06-2020 AMP Positive Normal NEGATIVE [facility] Comment on above: Performed By: #### D RUGRPD #### [facility] [address] [place] [address] Christian Mikayla BAR Negative Normal NEGATIVE [facility] Comment on above: Performed By: #### D RUGRPD #### [facility] [address] [place] [address] Christian Mikayla BUP Negative Normal NEGATIVE [facility] Comment on above: Performed By: #### D RUGRPD #### [facility] [address] [place] [address] Christian Mikayla BZO Negative Normal NEGATIVE [facility] Comment on above: Performed By: #### D RUGRPD #### [facility] [address] [place] [address] Christian Mikayla RITCHIE Negative Normal NEGATIVE [facility] Comment on above: Performed By: #### D RUGRPD #### [facility] [address] [place] [address] Christian Mikayla CUT-OFFS SEE BELOW Normal [facility] Comment on above: Result Comment: AMP [...] ng/mL Performed By: #### D RUGRPD #### [facility] [address] [place] [address] Mikayla DRUG CUT HEADER DRUG CLASS TEST SYST EM CUT-OFF CONCENTRATIONS ARE FOLLOWS: Normal [facility] Comment on above: Performed By: #### D RUGRPD #### [facility] [address] [place] [address] Christian Mikayla mAMP Negative Normal NEGATIVE [facility] Comment on above: Performed By: #### D RUGRPD #### [facility] [address] [place] [address] Christian Mikayla MTD Negative Normal NEGATIVE [facility] Comment on above: Performed By: #### D RUGRPD #### [facility] [address] [place] [address] Christian Mikayla OPI Positive Normal NEGATIVE [facility] Comment on above: Performed By: #### D RUGRPD #### [facility] [address] [place] [address] Christian Mikayla OXY Negative Normal NEGATIVE [facility] Comment on above: Performed By: #### D RUGRPD #### [facility] [address] [place] [address] Christian Mikayla PCP Negative Normal NEGATIVE [facility] Comment on above: Performed By: #### D RUGRPD #### [facility] [address] [place] [address] Christian Mikayla PPX Negative Normal NEGATIVE [facility] Comment on above: Performed By: #### D RUGRPD #### [facility] [address] [place] [address] Christian Mikayla TCA Negative Normal NEGATIVE [facility] Comment on above: Performed By: #### D RUGRPD #### [facility] [address] [place] [address] Christian Mikayla THC Negative Normal NEGATIVE [facility] Comment on above: Performed By: #### D RUGRPD #### [facility] [address] [place] [address] Christian Mikayla ER URINE PROFILEon 0 Bilirubin [Mass/Vol] Negative Normal NEGATIVE [facility] Comment on above: Performed By: #### E RUR #### [facility] [address] [place] [address] Christian Mikayla BLOOD Negative Normal NEGATIVE [facility] Comment on above: Performed By: #### E RUR #### [facility] [address] [place] [address] Christian Mikayla Clarity (U) CLEAR Normal [facility] Comment on above: Performed By: #### E RUR #### [facility] [address] [place], [place] [id number] Christian Mikayla Color (U) YELLOW Normal YELLOW [facility] Comment on above: Performed By: #### E RUR #### [facility] [address] [place] [address] Christian Mikayla ERUAHD A micrscopic examina tion will be performed if indicated. Normal [facility] Comment on above: Performed By: #### E RUR #### [facility] [address] [place] [address] Christian Mikayla Glucose [Mass/Vol] Negative Normal NEGATIVE [facility] Comment on above: Performed By: #### E RUR #### [facility] [address] [place] [address] Christian Mikayla Ketones Ql (U) Negative Normal NEGATIVE [facility] Comment on above: Performed By: #### E RUR #### [facility] [address] [place] [address] Christian Mikayla Nitrite Ql (U) Negative Normal NEGATIVE [facility] Comment on above: Performed By: #### E RUR #### [facility] [address] [place] [address] Christian Mikayla pH (Bld) 6.0 Normal 5-9 [facility] Comment on above: Performed By: #### E RUR #### [facility] [address] [place], [place] [id number] Christian Mikayla Protein (U) [Mass/Vol] TRACE Normal [facility] Comment on above: Performed By: #### E RUR #### [facility] [address] [place] [address] Christian Mikayla SPEC GRAVITY >=1.030 Normal 1.005-<=1.02 5 [facility] Comment on above: Performed By: #### E RUR #### [facility] [address] [id number] Christianvíctor Degroot UR MICRO IND NOT INDICATED Normal [facility] Comment on above: Performed By: #### E RUR #### [facility] [address] [place], [place] [id number] Christianvíctor Degroot Urobilinogen Qn (U) 0.2 EU/dl Normal [facility] Comment on above: Performed By: #### E RUR #### [facility] [address] [place], [place] [id number] Christian Mikayla WBC (Bld) [#/Vol] Negative Normal NEGATIVE [facility] Comment on above: Performed By: #### E RUR #### [facility] [address] [place], [place] [id number] Christian Mikayla ETHANOL (BLD ALC)on 03-06-20 20 Ethanol [Mass/Vol] NOTE: 80 mg/dl is th e legal limit for a blood alcohol level Normal [facility] Comment on above: Performed By: #### E TH #### [facility] [address] [place], [place] [id number] Christianvíctor Degroot Ethanol [Mass/Vol] mg/dL Normal [facility] Comment on above: Performed By: #### E TH #### [facility] [address] [place], [place] [id number] Christian Mikayla HEMOGRAM AND PLATELon 2019 WBC (Bld) [#/Vol] 23.5 103/ul Critically high 4.0-11.0 T [facility] Comment on above: Performed By: #### H H #### [facility] [address] [place], [place] [id number] Christian Mikayla LACTATE/LACTIC ACIDon 2019 Lactate [Moles/Vol] 0.7 mmol/L Normal 0.7-2.0 [facility] Comment on above: Performed By: #### L ACT #### [facility] [address] [place], [place] [id number] Christian Mikayla MYOGLOBINon 03-06-2020 Myoglobin [Mass/Vol] 918.0 ng/mL Critically high <=61.5 [facility] Comment on above: Result Comment: test repeated critical value verified Performed By: #### M YO #### [facility] [address] [place], [place] [id number] Christian Degroot POINT OF CARE GLUCOSEon 02-14 Glucose [Mass/Vol] 117 mg/dL Critically high 74-106 T [facility] Comment on above: Performed By: #### D RUGRPD #### [facility] [address] [place], [place] [id number] Christianvíctor Degroot PROF 14(COMP METB)on 020 Albumin [Mass/Vol] 3.3 g/dL Critically low 3.5-5.0 [facility] Comment on above: Performed By: #### T BLAYNE, CMP #### [facility] [address] [place], [place] [id number] Christian Mikayla Albumin/Globulin [Mass ratio] 1.1 {ratio} Normal [facility] Comment on above: Performed By: #### T BLAYNE, CMP #### [facility] [address] [place], [place] [id number] Christian Mikayla ALP [Catalytic activity/Vol] 69 U/L Normal 38-126 [facility] Comment on above: Performed By: #### T ROP, CMP #### [facility] [address] [place], [place] [id number] Christian Mikayla ALT [Catalytic activity/Vol] 30 U/L Normal 9-52 [facility] Comment on above: Performed By: #### T ROP, CMP #### [facility] [address] [place], [place] [id number] Christian Mikayla Anion gap [Moles/Vol] 16.8 mmol/L Normal [facility] Comment on above: Performed By: #### T ROP, CMP #### [facility] [address] [place], [place] [id number] Christian Mikayla AST [Catalytic activity/Vol] 29 U/L Normal 14-36 [facility] Comment on above: Performed By: #### T ROP, CMP #### [facility] [address] [phone] Christian Mikayla Bilirubin Ql (U) 0.4 mg/dL Normal 0.2-1.[address] [facility] Comment on above: Performed By: #### T ROP, CMP #### [facility] [address] [phone] Christian Mikayla Calcium [Mass/Vol] 8.7 mg/dL Normal 8.4-10.2 [facility] Comment on above: Performed By: #### T ROP, CMP #### [facility] [address] [phone] Christian Mikayla Chloride [Moles/Vol] 104 mmol/L Normal 98-107 [facility] Comment on above: Performed By: #### T ROP, CMP #### [facility] [address] [address] Christian Mikayla CO2 [Moles/Vol] 22.6 mmol/L Normal 22.0-30.[address] [facility] Comment on above: Performed By: #### T ROP, CMP #### [facility] [address] [phone] Christian Mikayla Creatinine [Mass/Vol] 0.92 mg/dL Normal 0.52-1.04 [facility] Comment on above: Performed By: #### T ROP, CMP #### [facility] [address] [place], [place] [id number] Christian Mikayla EGFR-AF MARTINIQUAIS >60 Normal >=[address] [facility] Comment on above: Performed By: #### T ROP, CMP #### [facility] [address] [phone] Christian Mikayla EGFR-NON AF MARTINIQUAIS >60 Normal >=60 [facility] Comment on above: Performed By: #### T ROP, CMP #### [facility] [address] [phone] Christian Mikayla Globulin (S) [Mass/Vol] 3.0 g/dL Normal [facility] Comment on above: Performed By: #### T ROP, CMP #### [facility] [address] [phone] Christian Mikayla Glucose [Mass/Vol] 130 mg/dL Critically high 74-106 [facility] Comment on above: Performed By: #### T ROP, CMP #### [facility] [address] [place] [address] Christian Mikayla Potassium [Moles/Vol] 4.4 mmol/L Normal 3.4-5.0 [facility] Comment on above: Performed By: #### T ROP, CMP #### [facility] [address] [place] [address] Christian Mikayla Protein [Mass/Vol] 6.3 g/dL Normal 6.1-8.2 [facility] Comment on above: Performed By: #### T BLAYNE, CMP #### [facility] [address] [place] [address] Christian Mikayla Sodium [Moles/Vol] 139 mmol/L Normal 137-145 [facility] Comment on above: Performed By: #### T BLAYNE, CMP #### [facility] [address] [place] [address] Christian Mikayla Urea nitrogen [Mass/Vol] 18.0 mg/dL Critically high 7.0-17.0 [facility] Comment on above: Performed By: #### T BLAYNE, CMP #### [facility] [address] [place] [address] Christian Mikayla Urea nitrogen/Creatinin e [Mass ratio] 19.6 mg/mg Normal [facility] Comment on above: Performed By: #### T ROP, CMP #### [facility] [address] [place] [address] Christian Mikayla RESPIRATORY PANEL PLUSon Adenovirus NOT DETECTED Normal NOT DETECTED [facility] Comment on above: Performed By: #### D RUGRPD #### [facility] [address] [place] [address] Christian Mikayla B. Parapertusis NOT DETECTED Normal NOT DETECTED [facility] Comment on above: Performed By: #### D RUGRPD #### [facility] [address] [place], [place] [id number] Christian Mikayla B. Pertussis NOT DETECTED Normal NOT DETECTED [facility] Comment on above: Performed By: #### D RUGRPD #### [facility] [address] [place] [address] Christian Mikyala Chlamydia Pneumoniae NOT DETECTED Normal NOT DETECTED [facility] Comment on above: Performed By: #### D RUGRPD #### [facility] [address] [place] [address] Christian Mikayla Coronavirus 229E NOT DETECTED Normal NOT DETECTED [facility] Comment on above: Performed By: #### D RUGRPD #### [facility] [address] [place] [address] Christian Mikayla Coronavirus HKU1 NOT DETECTED Normal NOT DETECTED [facility] Comment on above: Performed By: #### D RUGRPD #### [facility] [address] [place] [address] Christian Mikayla Coronavirus NL63 NOT DETECTED Normal NOT DETECTED [facility] Comment on above: Performed By: #### D RUGRPD #### [facility] [address] [place] [address] Christian Mikayla Coronavirus OC43 NOT DETECTED Normal NOT DETECTED [facility] Comment on above: Performed By: #### D RUGRPD #### [facility] [address] [place] [address] Christian Mikayla Influenza A H1 2008 NOT DETECTED Normal NOT DETECTED [facility] Comment on above: Performed By: #### D RUGRPD #### [facility] [address] [place] [address] Christian Mikayla Influenza B NOT DETECTED Normal NOT DETECTED [facility] Comment on above: Performed By: #### D RUGRPD #### [facility] [address] [place] [address] Christian Mikayla Metapneumovirus NOT DETECTED Normal NOT DETECTED [facility] Comment on above: Performed By: #### D RUGRPD #### [facility] [address] [place] [address] Christian Mikayla Mycoplas. Pneumoniae NOT DETECTED Normal NOT DETECTED [facility] Comment on above: Performed By: #### D RUGRPD #### [facility] [address] [address] Christian Mikayla Parainfluenza 1 NOT DETECTED Normal NOT DETECTED [facility] Comment on above: Performed By: #### D RUGRPD #### [facility] [address] [address] Christian Mikayla Parainfluenza 2 NOT DETECTED Normal NOT DETECTED [facility] Comment on above: Performed By: #### D RUGRPD #### [facility] [address] [place] [address] Christian Mikayla Parainfluenza 3 NOT DETECTED Normal NOT DETECTED [facility] Comment on above: Performed By: #### D RUGRPD #### [facility] [address] [place] [address] Christian Mikayla Parainfluenza 4 NOT DETECTED Normal NOT DETECTED [facility] Comment on above: Performed By: #### D RUGRPD #### [facility] [address] [place] [address] Christian Mikayla Rhino/Enterovirus NOT DETECTED Normal NOT DETECTED [facility] Comment on above: Performed By: #### D RUGRPD #### [facility] [address] [place] [address] Christian Mikayla RP2 Header 1 RESPIRATORY PANEL: VIRUSES Normal [facility] Comment on above: Performed By: #### D RUGRPD #### [facility] [address] [place] [address] Christain Mikayla RP2 Header 2 RESPIRATORY PANEL: BACTERIA Normal [facility] Comment on above: Performed By: #### D RUGRPD #### [facility] [address] [place] [address] Christian Mikayla RP2 Header 4 EUA SEE BELOW Normal [facility] Comment on above: Result Comment: This test is not yet approved or cleared by the [place] FDA. When there are no FDA-approved or cleared tests available, and other criteria are met, FDA can make tests available under an emergency access mechanism called an Emergency Use Authorization (EUA). The EUA for this test is supported by the [employer]ap Consultant of Health and Human Service?s (HHS?s) [...] used). Performed By: #### D RUGRPD #### [facility] [address] [place] [address] RSV NOT DETECTED Normal NOT DETECTED [facility] Comment on above: Performed By: #### D RUGRPD #### [facility] [address] [place], [place] [address] SARS-CoV-2: COVID-19 NOT DETECTED Normal NOT DETECTED [facility] Comment on above: Performed By: #### D RUGRPD #### [facility] [address] [place] [address] TROPONIN - Ion 03-06-2020 Troponin I.cardiac [Mass/Vol] 0.016 ng/mL Normal <=0.034 [facility] Comment on above: Performed By: #### T BLAYNE, CMP #### [facility] [address] [place] [address] Troponin I.cardiac [Mass/Vol] SEE BELOW Normal [facility] Comment on above: Result Comment: <0.0 34 ng/ml NEGATIVE 0.034-0.119 INDETERMINATE 0.120 AMI CUT OFF Performed By: #### T ROP, CMP #### [facility] [address] [place] [address] [facility] 03-06-2020 XR [...] by: FELA SMITH Date: 2020-03-06 15:07 [address] [facility] [address] 3D CERVICAL SPINE WITH CO NTRASTon 04-27-2018 CT 3D CERVICAL SPINE [facility] CONTR[facility] [address] [place] [address] Patient Name: RADHA DUNCAN : 1970Sex: FAge: Race: WhiteMRN: [id number]. Location: 85Patient Status: OVisit #: [id number] Date: 04/10/2018 12:10:00 PMCompleted Date: 04/27/2018 10:58 AMRequesting Provider: MARY DIAL Attending Provider: MARY DIAL Report Copy To: TEJAS RICHARDSON Signs & Symptoms: M54.12 Radiculopathy, cervical region [id number]: Nyla MYELOGRAM AUTH [id number] VALID 04/11/18-07/12/18 [facility] [id number] JYComments: Exam: CT 3D CERVICAL SPINE WITH CONTRASTAccession #: [id number] CT 3D CERVICAL SPINE WITH CONTRAST 04/27/2018 [...] findings. Electronically signed by:Oli Sanders. Transcribed by: [email or web address], User Resident: MANDEEP YOUNGElectronically Signed by: OLI SANDERS @ 04/27/2018 01:02 PMI personally read this/these film(s) with this resident Normal [facility] CT 3D LUMBAR SPINE W CONTRAS Ton 04-27-2018 CT 3D LUMBAR SPINE W CONTRAST [facility] [address] [place] [address] Patient Name: RADHA DUNCAN : 1970Sex: FAge: Race: WhiteMRN: [id number]. Location: 85Patient Status: DVisit #: [id number] Date: 04/10/2018 12:10:00 PMCompleted Date: 04/27/2018 10:59 AMRequesting Provider: MARY DIAL Attending Provider: MARY DIAL Report Copy To: DYLANTEJAS Signs & Symptoms: M54.16 Radiculopathy, lumbar region [id number]: Nyla MYELOGRAM AUTH [id number] VALID 04/11/18-07/12/18 PER [employer] [address] JYComments: Exam: CT 3D LUMBAR SPINE W CONTRASTAccession #: [id number] CT 3D LUMBAR SPINE W CONTRAST 04/27/2018 [...] findings. Electronically signed by:Antony Skelton. Transcribed by: [email or web address], User Resident: MANDEEP YOUNGElectronically Signed by: ANTONY SKELTON @ 04/27/2018 05:36 PMI personally read this/these film(s) with this resident Normal [facility] ENTIRE MYELOGRAMon 8 ENTIRE MYELOGRAM [facility] [address] [address] Patient Name: RADHA DUNCAN : 1970Sex: FAge: Race: WhiteMRN: [id number]. Location: Patient Status: OVisit #: [id number] Date: 04/10/2018 12:10:00 PMCompleted Date: 04/27/2018 10:19 AMRequesting Provider: MARY DIAL Attending Provider: MARY DIAL Report Copy To: TEJAS RICHARDSON Signs & Symptoms: M54.16 Radiculopathy, lumbar region [id number]: [place] MYELOGRAMComments: , , , Ordering Provider - MARY DIAL MD , Exam: ENTIRE MYELOGRAMAccession #: [id number] ENTIRE MYELOGRAM 04/27/2018 10:19 AM EST SIGNS [...] and risks are acceptable. Consent was obtained. Timeout:Chazy protocol timeout verification performed. PROCEDURE:Estimated blood loss:None [...] findings. Electronically signed by:Oli Sanders. Transcribed by: [email or web address], User Resident: MANDEEP YOUNGElectronically Signed by: OLI SANDERS @ 04/27/2018 01:01 PMI personally read this/these film(s) with this resident Normal [facility] Comment on above: Order Comment: , , = ========= , Ordering Provider - MARY DIAL MD , Ta 02-20-2018 CNPYamilex Telephone ([facility]) -------RADHA DUNCAN ([id number]) 1970 FDate Time Provider Ocwxfuexfp27/8/18 MAGED MURDOCK During your visit today, we recorded the following information about you:[facility] Patient Service Spec 02/20/2018 8:05 AM SignedPt [...] from his care.Please call her back at [phone].Elysia Montoya Psr 02/22/2018 8:37 AM SignedPlease fax letter over to [phone].[place] LPN 02/27/2018 10:18 AM SignedSpoke with patient and she wanted to know if knew of a physician inthe area that she lived that could do the ketamine infusion.I explained most likely he would not have this information she would need tocheck around in her area with other pain providers to see if they do theinfusions. She said [place] found one in the [place] but they want money upfront [...] Known Allergies)Date Reviewed: 02/10/2018Reviewed by: Kayla Sparks SIDE SAWYER - Fully AssessedReason for Visit: Letter [264]Prescriptions [...] by MAGED MURDOCK MD on 02/28/18 Normal [facility] CNOVon 02-10-2018 CNOV Office Visit ([facility]) -------RADHA DUNCAN ([id number]) 1970 FDate Time Provider Department02/10/18 10:45 AM MAGED MURDOCK During your visit today, we recorded the following information about you: Pulse Respiration Blood pressure Weight 80/minute 16/minute 132/47 69.9 kgMaged Murdock MD 02/11/2018 1:30 PM AddendumSUBJECTIVE:The patient presents to [facility] Pain Management Department for afollow-up appointment [...] percocet was last taken 02/09/2018 in the [facility] OARRS records were reviewed.Imaging results in [...] other than HPI.Data scribed by above mentioned MA/SIDE SAWYER/RN/PA, and personally reviewed andverified by physician. Maged [...] treatment plan. Patient agreeswith above. Maged Murdock, [facility] 2017Referring Provider: LINDSEY AGUILAR [[id number]]Allergies As of Date: 02/10/2018(No Known Allergies)Date Reviewed: 02/10/2018Reviewed by: Kayla Sparks SIDE SAWYER - Fully AssessedReason for Visit: Follow Up [171]Visit Diagnoses:Cervical facet syndrome [M47.812] Neuralgia and neuritis [M79.2]Prescriptions as of 02/10/2018 Sig: DULOXETINE 60 MG CAPSULE,KITE* Cymbalta 60 mg capsule,delaye* OXCARBAZEPINE 150 MG TABLET Take 1 tablet by mouth twice * OXYCODONE-ACETAMINOPHEN 5 MG-* Take 1 tablet by mouth every * BACLOFEN ORAL Take 100 mg by mouth once kim*Problem List As Of Date 02/10/2018 Noted Resolved Back pain [M54.9] Former smoker [Z87.891] Neck pain [M54.2] INVALID FOR* 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 [...] any questions. Sincerely, Maged Murdock MDEncounter Number: [id number] Status:Closed by MAGED MURDOCK MD on 02/11/18 Normal [facility] PROGRESSon 02-10-2018 Protein mass conc HNO ID: [id number] thor: Maged Jolleyervice: (none)Author Type: PhysicianType: Progress NotesFiled: 02/11/2018 1:30 PMNote Text:SUBJECTIVE:The patient presents to [facility] Pain Management Departmentfor a follow-up appointment [...] other than HPI.Data scribed by above mentioned MA/SIDE SAWYER/RN/PA, and personally reviewed andverified by physician. Maged [...] with above. Maged Murdock, MDSeptember 2017 Normal [facility] CNOVon 01-10-2018 CNOV Office Visit ([facility]) -------DAKOTARADHA Dereje ([id number]) 1970 FDate Time Provider Department01/10/18 1:00 PM MONICA YAN (ARLENE) [facility] During your visit today, we recorded the following information about you: Pulse Blood pressure Weight 85/minute 127/47 70.3 kgMonica Yan APRN.CNP 01/10/2018 2:13 PM SignedSUBJECTIVE:The patient presents to [facility] Management Department for afollow-up appointment [...] and C4-C5 secondaryto DDDAnterior mechanical fusion of F3-8-0SUOLCH OF SYSTEMS:GENERAL: (-) weight loss, (+)malaise, (-)fevers.HEENT:(+)headache [...] other than HPI.Data scribed by above mentioned MA/SIDE SAWYER/RN/PA, and personally reviewed andverified by Monica Yan [...] resulting treatment plan. Patient agreeswith above.Monica Yan APRN.[facility] 2017Referring Provider: TEJAS RICHARDSON JR [[id number]]Allergies As of Date: 01/10/2018(No Known Allergies)Date Reviewed: [...] INVALID FOR*Follow-up and Disposition History RecordedEncounter Number: [id number] Status:Closed by MONICA YAN CNP on 01/10/18 Normal [facility] PROGRESSon 01-09-2018 Protein mass conc HNO ID: [id number] thor: Monica Pereyra ([employer]) HillService: (none)Author Type: Nurse PractitionerType: Progress NotesFiled: 01/10/2018 2:13 PMNote Text:SUBJECTIVE:The patient presents to [facility] Pain Management Departmentfor a follow-up appointment [...] to moderate foraminal narrowing at C3-C4, and C4-G9rfyfdzsuc to DDDAnterior mechanical fusion of X8-0-5LKLQWR OF SYSTEMS:GENERAL: (-) weight loss, (+)malaise, (-)fevers.HEENT:(+)headache [...] other than HPI.Data scribed by above mentioned MA/SIDE SAWYER/RN/PA, and personally reviewed andverified by Monica Yan [...] Patientagrees with above.Monica Yan APRN.Lali 2017 Normal [facility] Ta 12-21-2017 CNPN Telephone ([facility]) -------RADHA DUNCAN ([id number]) 1970 FDate Time Provider Department12/21/17 MAGED MURDOCK During your visit today, we recorded the following information about you:Lorena Araiza 12/21/2017 10:31 AM AddendumPatient calling in to inquire if you have received [facility].Please advisJacob Park LPN 12/22/2017 3:15 PM SignedSpoke with patient and informed her that we did receive the thoracic MRI whichwas normal.We did not receive the cervical MRI. She will call [facility] and have them refaxit.Kami Zheng Workleader 12/26/2017 9:53 AM SignedPatient called back in regards to below message. Patient would like to know ifwe have received the Cervical MRI as it was refaxed 12/22. Pleasereview.Clint Park LPN 12/26/2017 11:01 AM SignedSpoke to [facility] and they are refaxing it as I [...] LPN - Fully AssessedReason for Visit: Question [3477]Prescriptions as of 12/21/2017 Sig: OXCARBAZEPINE 150 MG [...] by CLINT PARK LPN on 12/22/17 Normal [facility] CNOVon 12-08-2017 CNOV Office Visit ([facility]) -------DAKOTARADHA ([id number]) 1970 [facility] Time Provider Department12/08/17 1:30 PM MAGED MURDOCK During your visit today, we recorded the following information about you: Pulse Respiration Blood pressure Weight 62/minute 16/minute 105/40 68.9 kgMaged Murdock MD 12/08/2017 6:06 PM SignedReferring Or Consulting Physician:Lindsey Aguilar, PA[address] [address] COMPLAINT: pain in my neck, shoulders, thoracic [...] Number of children: 0Occupational HistoryOccupation Employer 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 Maged [...] also during rena-operative period. we dont have [id number] for disability, likely to hamper rapid recovery [...] she did have severe postprocedure pain in [place] [facility] handsDirect patient care time spent: [...] mail.Maged Murdock MDJuly 2017Referring Provider: LINDSEY AGUILAR [[id number]]Allergies As of Date: 12/08/2017(No Known Allergies)Date Reviewed: [...] region [M48.02]Order(s):C-REACTIVE PROTEIN (CRP) [SQCRP] Order #: [id number] FUTURE SED RATE WESTERGREN [SQWSR] Order #: [id number] FUTURE TSH BLD [SQTSH] Order #: [id number] FUTURE IRON + TIBC [SQIRON] Order #: [id number] FUTURE VITAMIN D 25 HYDROXY [SQVITD] Order #: [id number] FUTURE MRI THORACIC SPINE WO/W IVCON [[id number]] Order #: [id number] FUTURE iv contrast (will be provided with [...] EachRfl: 0 MRI CERVICAL SPINE WO IVCON [[id number]] Order #: [id number] FUTUREPrescriptions as of 12/08/2017 Sig: OXCARBAZEPINE 150 [...] discontinue is not on file.Letter TextJuly 2017Maged MurdockAvita Health System Bucy[facility] HospitalDepartment of Pain [address], [place] [phone] [phone] Suzanne M Bailey:Thank you for seeing me [...] medications for the issues above, and [facility] would be the next steps. Afterthat, further testing could be done to get to the bottom of your problems.Please call with any questions. 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 Maged [...] she did have severepost procedure pain in [place] [facility] handsDirect patient care time spent: [...] fax, or mail.Maged Murdock MDJuly 2017 [facility] Vital Signs Date Time Vital Sign Value Performing Clinician Faci lity 06-26-2024 09:30-0500 Body height 160 cm Maged Contreras DO Work Phone: [facility] 06-26-2024 09:30-0500 Body mass index (BMI) [Ratio] 30.11 kg/m2 Maged Contreras DO Work Phone: [facility] 06-26-2024 09:30-0500 Body weight 77.11 kg Maged Contreras DO Work Phone: [facility] Encounters Encounter Date Encounter Type Care Provider Facility Start: 08-27-2024 End: 08-27-2024 ambulatory Christian Jameson MD Facility:[facility] Start: 07-23-2024 End: 07-23-2024 ambulatory Christian Jameson MD Facility:[facility] Start: 06-26-2024 End: 06-26-2024 Bamboo flowsheet Maged Eagle Ben DO Work Phone: [facility] Start: 06-26-2024 End: 06-26-2024 Bamboo flowsheet Maged Eagle Ben DO Work Phone: [facility] Start: 06-26-2024 End: 06-26-2024 Clinical Support Gina Riddle [facility] Work Phone: [facility] Comment on above: [...] 06-11-2024 End: 06-11-2024 ambulatory Christian Jameson MD Facility:[facility] Start: 04-24-2024 End: 04-24-2024 ambulatory [facility] Start: 04-11-2024 End: 04-11-2024 ambulatory [facility] Start: 04-04-2024 End: 04-04-[address] [facility] Start: 03-27-2024 End: 03-27-2024 ambulatory FELA Mcghee [facility] Start: 03-20-2024 End: 03-20-2024 ambulatory FELA Mcghee [facility] Start: 03-16-2024 End: 03-16-2024 ambulatory TEJAS RICHARDSON [facility] Start: 03-15-2024 End: 03-15-[address] [facility] Work Phone: Start: 03-15-2024 End: 03-15-2024 Patient encounter procedure [facility] Work Phone: Start: 03-13-2024 End: 03-13-2024 [facility] Start: 03-07-2024 End: 03-07-2024 ambulatory [facility] Start: 12-15-2023 End: 01-15-2024 ambulatory TEJAS RICHARDSON [facility] Start: 12-05-2023 End: 12-15-2023 ambulatory TEJAS RICHARDSON [facility] Start: 11-10-2023 End: 11-10-2023 ambulatory Tejas Richardson DO Facility:Infectious Disease Start: 10-26-2023 End: 10-26-2023 ambulatory Pavel Rodriges MD Facility:[facility] Start: 10-26-2023 End: 10-26-2023 ambulatory Tejas Richardson DO Facility:[facility] Start: 08-22-2023 End: 08-22-2023 ambulatory TEJAS RICHARDSON [facility] Start: 08-15-2023 End: 09-14-2023 ambulatory [facility] Start: 07-18-2023 End: 08-15-2023 ambulatory [facility] Start: 03-06-2020 End: 03-07-2020 Patient encounter procedure PEREZ LESTER Facility: Start: 04-27-2018 End: 04-28-2018 Patient encounter procedure PROVIDER UNKNOWN Facility:[facility] Start: 02-10-2018 End: 02-13-2018 Patient encounter MAGED MURDOCK [facility] Start: 01-10-2018 End: 01-11-2018 Patient encounter MONICA Pereyra ARLENE YAN [facility] Start: 12-08-2017 End: 12-09-2017 Patient encounter MAGED MURDOCK [facility] Procedures Date Procedure Procedure Detail Performing Clinician Start: 06-26-2024 AUDITORY FUNCTION TESTS Gina Autumn Riddle CCC-A Work Phone: Start: 03-06-2020 End: 03-06-2020 Microscopic examination of blood, culture PEREZ LESTER Comment on above: Performed By: #### D RUGRPD #### [facility] [address] [address] Christian Degroot Start: 01-30-2020 Mammography Maged mercer DO Work Phone: Plan of Treatment Date Care Activity Detail Author Start: 02-06-2025 Screening for malign ant neoplasm of cervix [facility] Start: 06-26-2024 End: 06-26-2024 Patient encounter procedure 06/26/2024 9:30 AM EST Office Visit [facility] [address] [place] [id number] Maged Contreras, [address] [place] [address] Arrived [facility] Comment on above: Arrived Start: 01-15-2024 Influenza vaccination Influenza Vacc ine (#1) [facility] Start: 01-29-2021 Screening for malign ant neoplasm of breast Mammogram [facility] Start: 1990 Screening for malign ant neoplasm of cervix Pap Smear [facility] Start: 1970 Screening for malign ant neoplasm of colon [facility] Immunizations Immunization Date Immunization Notes Care Provider Nazanin thornton 11-29-2020 Pfizer Purple Cap SARS-CoV-2 Vaccination Maged Contreras DO Work Phone: [facility] 11-09-2020 Pfizer Purple Cap SARS-CoV-2 Vaccination Maged Contreras DO Work Phone: [facility] 03-06-2020 influenza, high dose seasonal, preservative-free Maged Contreras DO Work Phone: [facility] 03-06-2020 influenza virus vacc ine, unspecified formulation Maged Contreras DO Work Phone: [facility] Payers Date Payer Category Payer Private Health Insurance [facility] [id number] 2023 Unknown 2023 Unknown [id number] 2022 Unknown [id number] 1970 Unknown [id number] 2.840.1.174426.3.579. 2.647 1970 Unknown [id number] 2.840.1.009996.3.579. 2.593 1970 Unknown [id number] 2.840.1.881815.3.579. 2.1285 1969 Unknown [id number] 2.840.1.379207.3.579. 2.128 1969 Unknown [id number] 2.840.1.952587.3.579. 2.1285 1969 Unknown [id number] 2.16840.1.857990.3.579. 2.1285 1969 Unknown [id number] 2.16840.1.386026.3.579. 2.1285 1969 Unknown [id number] 2.16840.1.290853.3.579. 2.1286 1969 Unknown [id number] 2.840.1.031408.3.579. 2.1285 1969 Unknown [id number] 2.840.1.275465.3.579. 2.1285 1969 Unknown [id number] 2.840.1.153354.3.579. 2.1285 1969 Unknown [id number] 2.840.1.581698.3.579. 2.1285 1969 Unknown [id number] 2.840.1.489641.3.579. 2.1285 1969 Unknown [id number] 2.0.1.511336.3.579. 2.1285 1969 Unknown [id number] .0.1.625791.3.579. 2.1285 1969 Unknown [id number] 2.0.1.931421.3.579. 2.1285 1969 Unknown [id number] 07.01.830.1.052182.3.579. 2.1285 1969 Unknown [id number] 07.01.830.1.534748.3.579. 2.9 1969 Unknown [id number] 07.01.830.1.812199.3.579. 2.1258 1969 Unknown [id number] .840.1.924331.3.579. 2. 1969 Unknown [id number] .840.1.843863.3.579. 2. 1969 Unknown [id number] 2.840.1.791952.3.579. 2. 1969 Unknown [id number] 2.840.1.911660.3.579. 2. 1969 Unknown [id number] .840.1.888741.3.579. 2.196 1969 Unknown [id number] 2.16.840.1.081446.3.579. 2.196 1969 Unknown [id number] 2.16.840.1.792720.3.579. 2.196 1959 Unknown [id number] Unknown [id number] Social History Date Type Detail Facility Tobacco smoking stat [facility] Unknown if ever smoked [facility] Work Phone: Start: 1970 Sex Assigned At Female F [facility] Tobacco smoking stat [facility] Tobacco smoking consumption unknown [facility] Start: 1970 Sex assigned at Not on file [facility] Start: 06-26-2024 Gender identity Not on file [facility] Start: 06-26-2024 Tobacco smoking stat [facility] Smokes tobacco daily [facility] History [...] back as needed documented in this encounter [facility] Evaluation note Note Date & Type Note Facility Evaluation note No assessment information availa [facility] Work Phone: Evaluation note Note Date & Type Note Facility Evaluation note Diagnosis Sensorineural hearing loss (SNHL) of left ear with unrestricted hearing of right ear- Primary Impacted cerumen of left ear Impacted cerumen documented in this encounter [facility] Healthcare Evaluation note Note Date & Type Note Facility Evaluation note Diagnosis Conductive hearing loss of left ear with unrestricted hearing of right ear- Primary documented in this encounter [facility] Healthcare Summary Purpose Family History No [...] section and content) DATE CREATED AUTHOR 04/03/2018 [facility] DATE CREATED AUTHOR AUTHOR'S ORGANIZ ATION 05/03/2018 [facility] DATE CREATED AUTHOR AUTHOR'S ORGANIZ ATION 04/09/2020 [facility] DATE CREATED AUTHOR AUTHOR'S ORGANIZ ATION 04/07/2024 [facility] DATE CREATED AUTHOR AUTHOR'S ORGANIZ ATION 04/28/2024 [facility] DATE CREATED AUTHOR AUTHOR'S ORGANIZ ATION 06/28/2024 [facility] DATE CREATED AUTHOR AUTHOR'S ORGANIZ ATION 09/06/2024 [facility] Care Teams (unrecognized sec tion and content) Team Status: Active Member Role Status Dates Tejas Richardson JR DO Primary Care Provider Active Team Status: Inactive Member Role Status Dates Tejas Richardson JR DO Primary Care Provider Active Start: March 15, 2024 End: March 15, 2024 Fela Roman MD Attending Provider Active Sta rt: March 15, 2024 End: March 15, 2024 Agricultural Chemicals Inspector Relationship Specialty Start Date End Date Tejas Richardson MD [address] [place] [address] PCP - General Internal Medicine 06/26/24 Agricultural Chemicals Inspector Relationship Specialty Start Date End Date Tejas Richardson MD [address] [place] [address] PCP - General Internal Medicine 06/26/24 Agricultural Chemicals Inspector Relationship Specialty Start Date End Date Tejas Richardson MD [address] [place] [address] PCP - General Internal Medicine 06/26/24 Goals [...] BE BASED ON THE PRIMARY CLINICAL RECORDS. [facility] [employer] [facility]. provides no warranty or guarantee of the accuracy or completeness of information in this document.
== END 2025-01-17 08:21 | disposition home or self-care (01) ==
LOC: MRI 08:21
PROVIDERS: PCP Internal Medicine; Visit Provider Nurse Practitioner
DX: M96.1 Postlaminectomy syndrome, not elsewhere classified (principal); M43.26 Fusion of spine, lumbar region
CPT/HCPCS: 72158; A9575

== ENCOUNTER 2025-01-21 08:46 | Outpatient (OUT) | payer OTHER, SELFPAY ==
--- OUTSIDE RECORDS SUMMARY | 2025-01-21 08:52 | XMS_ITS | CCD ---
Author Organization [facility] Care Team Providers Care Landscape Crew Member Name Role Phone MAGED MURDOCK Unavailable Unavailable LINDSEY AGUILAR (PA) Unavailable Unavail able MONICA YAN (HEAVY MOBILE EQUIPMENT REPAIRER) Unavailable Unavailabl TEJAS Benavidez JR Unavailable Unavail [...] Valone MD, Tejas L Primary Care Provider [phone] MAGED CONTRERAS Attending Unavailable GINA RIDDLE Attending Unavailable Gisell CHONG, Christian Singletary Attending Unavailable [facility] Unavail able Gisell CHONG, Christian Singletary Attending Unavailable [facility] Unavail able Gisell CHONG, Christian Singletary Attending Unavailable [facility] Unavail able Zahira CHONG, Pavel Carr Attending Unavailable [facility] Unavail able [facility], [facility] Unavail able Yeison HENDRICKS, Hanane Finn Attending U navailable [facility] Unavail able Zahira CHONG, Pavel Carr Attending Unavailable [facility] CHONG, Nicole Neri Referring Unavailabl e Gisell CHONG, Christian Singletary Attending [facility] Unavail able Allergies Allergy Classification Reported [...] to moderate hearing loss above 4K Hz [employer] [facility] COMPLETE BLOOD COUNTon 04-24 Erythrocyte distribution width (RBC) [Ratio] 16.6 % High 11.5-15.0 [facility] Comment on above: Performed By: #### C KJ, SIGN WIRER #### [facility] ([id number]) [address] [address] Hematocrit (Bld) [Volume fraction] 40.9 % Normal 35-47 [facility] Comment on above: Performed By: #### Jacqueline UNDERWOOD, SIGN WIRER #### [facility] ([id number]) [address], [facility] [address] [place] [address] Hemoglobin (Bld) [Mass/Vol] 13.5 g/dL Normal 11.7-15.5 [facility] Comment on above: Performed By: #### C KJ, SIGN WIRER #### [facility] ([id number]) [address], [facility] [address] [place] [address] MCH (RBC) [Entitic mass] 32.0 pg Normal 27-34 [facility] Comment on above: Performed By: #### C KJ, SIGN WIRER #### [facility] ([id number]) [address], [address] [place] [address] MCHC (RBC) [Mass/Vol] 33.1 g/dL Normal 32-36 [facility] Comment on above: Performed By: #### Jacqueline UNDERWOOD, SIGN WIRER #### [facility] ([id number]) [address], [address] [place] [address] MCV (RBC) [Entitic vol] 97 fL Normal 80-100 [facility] Comment on above: Performed By: #### C KJ, SIGN WIRER #### [facility] ([id number]) [address] [address] Platelet mean volume (Bld) [Entitic vol] 8.8 fL Normal 7-12 [facility] Comment on above: Performed By: #### C KJ, SIGN WIRER #### [facility] ([id number]) [address] [address] Platelets (Bld) [#/Vol] 328 10*3/uL Normal 150-450 [facility] Comment on above: Performed By: #### C KJ, SIGN WIRER #### [facility] ([id number]) [address] [address] RBC COUNT 4.23 X10E12/L Normal 3.80-5.20 [facility] Comment on above: Performed By: #### Jacqueline UNDERWOOD, SIGN WIRER #### [facility] ([id number]) [address] [address] WBC (Bld) [#/Vol] 9.0 10*3/uL Normal 4.0-11.0 [facility] Comment on above: Performed By: #### Jacqueline UNDERWOOD, SIGN WIRER #### [facility] ([id number]) [address] [address] CREATININEon 04-24-2024 Creatinine [Mass/Vol] 0.72 mg/dL Normal 0.40-1.00 [facility] Comment on above: Result Comment: METH OD TRACEABLE TO IDMS STANDARD Performed By: #### Jacqueline UNDERWOOD, SIGN WIRER #### [facility] ([id number]) [address] [address] eGFR (CKD-EPI) NON-RACE DEPENDENT >90 Normal >59 [facility] Comment on above: Result Comment: Reported eGFR is based on the CKD-EPI 2020 equation that does not use a race coefficient. Performed By: #### C KJ, SIGN WIRER #### [facility] ([id number]) [address] [address] [place] [address] COMPLETE BLOOD COUNTon 04-11 Erythrocyte distribution width (RBC) [Ratio] 16.9 % High 11.5-15.0 [facility] Comment on above: Performed By: #### C BC, SIGN WIRER #### [facility] ([id number]) [address] [address] [place] [address] Hematocrit (Bld) [Volume fraction] 41.0 % Normal 35-47 [facility] Comment on above: Performed By: #### C KJ, SIGN WIRER #### [facility] ([id number]) [address] [address] [place] [address] Hemoglobin (Bld) [Mass/Vol] 13.8 g/dL Normal 11.7-15.5 [facility] Comment on above: Performed By: #### C KJ, SIGN WIRER #### [facility] ([id number]) [address] [address] [place] [address] MCH (RBC) [Entitic mass] 32.3 pg Normal 27-34 [facility] Comment on above: Performed By: #### C KJ, SIGN WIRER #### [facility] ([id number]) [address] [address] [place] [address] MCHC (RBC) [Mass/Vol] 33.5 g/dL Normal 32-36 [facility] Comment on above: Performed By: #### C KJ, SIGN WIRER #### [facility] ([id number]) [address] [address] [place] [address] MCV (RBC) [Entitic vol] 96 fL Normal 80-100 [facility] Comment on above: Performed By: #### C KJ, SIGN WIRER #### [facility] ([id number]) [address] [address] Platelet mean volume (Bld) [Entitic vol] 9.1 fL Normal 7-12 [facility] Comment on above: Performed By: #### C KJ, SIGN WIRER #### [facility] ([id number]) [address] [address] Platelets (Bld) [#/Vol] 291 10*3/uL Normal 150-450 [facility] Comment on above: Performed By: #### C KJ, SIGN WIRER #### [facility] ([id number]) [address] [address] RBC COUNT 4.27 X10E12/L Normal 3.80-5.20 [facility] Comment on above: Performed By: #### C KJ, SIGN WIRER #### [facility] ([id number]) [address] [address] WBC (Bld) [#/Vol] 8.9 10*3/uL Normal 4.0-11.0 [facility] Comment on above: Performed By: #### Jacqueline UNDERWOOD, SIGN WIRER #### [facility] ([id number]) [address] [address] CREATININEon 04-11-2024 Creatinine [Mass/Vol] 0.73 mg/dL Normal 0.40-1.00 [facility] Comment on above: Result Comment: METH OD TRACEABLE TO IDMS STANDARD Performed By: #### C KJ, SIGN WIRER #### [facility] ([id number]) [address] [address] eGFR (CKD-EPI) NON-RACE DEPENDENT >90 Normal >59 [facility] Comment on above: Result Comment: Reported eGFR is based on the CKD-EPI 2020 equation that does not use a race coefficient. Performed By: #### C KJ, SIGN WIRER #### [facility] ([id number]) [address] [place] [address] ASPIRATE CULTUREon Bacteria identified Aer cx Nom [...] <=1 F PIPERACIL/TAZOBACTAM S <=4 F Susceptible [facility] Comment on above: Performed By: #### 5 97-5 #### [facility] ([id number]) [address] [address] COMPLETE BLOOD COUNTon 04-04 Erythrocyte distribution width (RBC) [Ratio] 16.6 % High 11.5-15.0 [facility] Comment on above: Performed By: #### Jacqueline ARAUJO [facility], 1988-09, 84001-2 #### [facility] ([id number]) [address] [address] Hematocrit (Bld) [Volume fraction] 37.5 % Normal 35-47 [facility] Comment on above: Performed By: #### Jacqueline ARAUJO CMP, 1988-09, 67797-4 #### [facility] ([id number]) [address] [address] Hemoglobin (Bld) [Mass/Vol] 12.7 g/dL Normal 11.7-15.5 [facility] Comment on above: Performed By: #### Jacqueline ARAUJO CMP, 1988-09, 33580-6 #### [facility] ([id number]) [address] [address] [place] [address] MCH (RBC) [Entitic mass] 31.6 pg Normal 27-34 [facility] Comment on above: Performed By: #### Jacqueline ARAUJO CMP, 1988-09, 90166-3 #### [facility] ([id number]) [address], [address] [place] [address] MCHC (RBC) [Mass/Vol] 33.8 g/dL Normal 32-36 [facility] Comment on above: Performed By: #### Jacqueline ARAUJO [facility], 1988-09, 88454-4 #### [facility] ([id number]) [address], [address] [place] [address] MCV (RBC) [Entitic vol] 94 fL Normal 80-100 [facility] Comment on above: Performed By: #### Jacqueline ARAUJO [facility], 1988-09, 19762-3 #### [facility] ([id number]) [address], [address] [place] [address] Platelet mean volume (Bld) [Entitic vol] 8.9 fL Normal 7-12 [facility] Comment on above: Performed By: #### Jacqueline ARAUJO [facility], 1988-09, 27197-1 #### [facility] ([id number]) [address], [address] [place] [address] Platelets (Bld) [#/Vol] 230 10*3/uL Normal 150-450 [facility] Comment on above: Performed By: #### Jacqueline ARAUJO CMP, 1988-09, 41753-2 #### [facility] ([id number]) [address], [address] [place] [address] RBC COUNT 4.01 X10E12/L Normal 3.80-5.20 [facility] Comment on above: Performed By: #### Jacqueline ARAUJO CMP, 1988-09, 17209-4 #### [facility] ([id number]) [address], [address] [place] [address] WBC (Bld) [#/Vol] 9.1 10*3/uL Normal 4.0-11.0 [facility] Comment on above: Performed By: #### C ARANZA ARAUJO, 1988-09, 01188-7 #### [facility] ([id number]) [address] [address] CREATININEon 04-04-2024 Creatinine [Mass/Vol] 0.60 mg/dL Normal 0.40-1.00 [facility] Comment on above: Result Comment: METH OD TRACEABLE TO IDMS STANDARD Performed By: #### C ARANZA ARAUJO, 1988-09, 05381-2 #### [facility] ([id number]) [address] [address] eGFR (CKD-EPI) NON-RACE DEPENDENT >90 Normal >59 [facility] Comment on above: Result Comment: Reported eGFR is based on the CKD-EPI 2020 equation that does not use a race coefficient. Performed By: #### C ARANZA ARAUJO, 61927-8 #### [facility] ([id number]) [address] [address] COMPLETE BLOOD COUNTon 03-27 Erythrocyte distribution width (RBC) [Ratio] 17.2 % High 11.5-15.0 [facility] Comment on above: Performed By: #### C ARANZA ARAUJO, 35367-2 #### [facility] ([id number]) [address] [address] Hematocrit (Bld) [Volume fraction] 40.0 % Normal 35-47 [facility] Comment on above: Performed By: #### C ARANZA ARAUJO, 33010-1 #### [facility] ([id number]) [address] [address] Hemoglobin (Bld) [Mass/Vol] 13.5 g/dL Normal 11.7-15.5 [facility] Comment on above: Performed By: #### C VAN, CMP, 1987-09, 70710-7 #### [facility] ([id number]) [address], [address] [place] [address] MCH (RBC) [Entitic mass] 31.7 pg Normal 27-34 [facility] Comment on above: Performed By: #### Jacqueline ARAUJO [facility], 1987-09, 14158-8 #### [facility] ([id number]) [address], [address] [place] [address] MCHC (RBC) [Mass/Vol] 33.7 g/dL Normal 32-36 [facility] Comment on above: Performed By: #### Jacqueline ARAUJO CMP, 1987-09, 13244-3 #### [facility] ([id number]) [address], [address] [place] [address] MCV (RBC) [Entitic vol] 94 fL Normal 80-100 [facility] Comment on above: Performed By: #### Jacqueline ARAUJO [facility], 1988-09, 08914-9 #### [facility] ([id number]) [address], [address] [place] [address] Platelet mean volume (Bld) [Entitic vol] 8.5 fL Normal 7-12 [facility] Comment on above: Performed By: #### Jacqueline ARAUJO CMP, 1988-09, 95153-4 #### [facility] ([id number]) [address], [address] [place] [address] Platelets (Bld) [#/Vol] 332 10*3/uL Normal 150-450 [facility] Comment on above: Performed By: #### Jacqueline ARAUJO CMP, 1988-09, 24759-7 #### [facility] ([id number]) [address], [address] [place] [address] RBC COUNT 4.26 X10E12/L Normal 3.80-5.20 [facility] Comment on above: Performed By: #### C ARANZA ARAUJO, 1988-09, 73010-5 #### [facility] ([id number]) [address] [address] WBC (Bld) [#/Vol] 10.4 10*3/uL Normal 4.0-11.0 [facility] Comment on above: Performed By: #### C ARANZA ARAUJO, 1988-09, 21685-4 #### [facility] ([id number]) [address], [address] [address] CREATININEon 03-27-2024 Creatinine [Mass/Vol] 0.69 mg/dL Normal 0.40-1.00 [facility] Comment on above: Result Comment: METH OD TRACEABLE TO IDMS STANDARD Performed By: #### C ARANZA ARAUJO, 1988-09, 40542-0 #### [facility] ([id number]) [address], [address] [address] eGFR (CKD-EPI) NON-RACE DEPENDENT >90 Normal >59 [facility] Comment on above: Result Comment: Reported eGFR is based on the CKD-EPI 2020 equation that does not use a race coefficient. Performed By: #### C ARANZA ARAUJO, 1988-09, 71566-8 #### [facility] ([id number]) [address] [address] COMPLETE BLOOD COUNTon 03-20 Erythrocyte distribution width (RBC) [Ratio] 19.0 % High 11.5-15.0 [facility] Comment on above: Performed By: #### C BC, SIGN WIRER #### [facility] ([id number]) [address] [address] Hematocrit (Bld) [Volume fraction] 37.9 % Normal 35-47 [facility] Comment on above: Performed By: #### C BC, SIGN WIRER #### [facility] ([id number]) [address], [address] [place] [address] Hemoglobin (Bld) [Mass/Vol] 12.6 g/dL Normal 11.7-15.5 [facility] Comment on above: Performed By: #### C KJ, SIGN WIRER #### [facility] ([id number]) [address], [address] [place] [address] MCH (RBC) [Entitic mass] 31.8 pg Normal 27-34 [facility] Comment on above: Performed By: #### C KJ, SIGN WIRER #### [facility] ([id number]) [address], [address] [place] [address] MCHC (RBC) [Mass/Vol] 33.2 g/dL Normal 32-36 [facility] Comment on above: Performed By: #### C KJ, SIGN WIRER #### [facility] ([id number]) [address], [address] [place] [address] MCV (RBC) [Entitic vol] 96 fL Normal 80-100 [facility] Comment on above: Performed By: #### Jacqueline UNDERWOOD, SIGN WIRER #### [facility] ([id number]) [address], [address] [place] [address] Platelet mean volume (Bld) [Entitic vol] 8.4 fL Normal 7-12 [facility] Comment on above: Performed By: #### Jacqueline UNDERWOOD, SIGN WIRER #### [facility] ([id number]) [address], [address] [place] [address] Platelets (Bld) [#/Vol] 343 10*3/uL Normal 150-450 [facility] Comment on above: Performed By: #### C KJ, SIGN WIRER #### [facility] ([id number]) [address], [address] [place] [address] RBC COUNT 3.95 X10E12/L Normal 3.80-5.20 [facility] Comment on above: Performed By: #### C KJ, SIGN WIRER #### [facility] ([id number]) [address] [address] WBC (Bld) [#/Vol] 7.6 10*3/uL Normal 4.0-11.0 [facility] Comment on above: Performed By: #### C KJ, SIGN WIRER #### [facility] ([id number]) [address] [address] CREATININEon 03-20-2024 Creatinine [Mass/Vol] 0.70 mg/dL Normal 0.40-1.00 [facility] Comment on above: Result Comment: METH OD TRACEABLE TO IDMS STANDARD Performed By: #### C KJ, SIGN WIRER #### [facility] ([id number]) [address] [address] eGFR (CKD-EPI) NON-RACE DEPENDENT >90 Normal >59 [facility] Comment on above: Result Comment: Reported eGFR is based on the CKD-EPI 2020 equation that does not use a race coefficient. Performed By: #### C KJ, SIGN WIRER #### [facility] ([id number]) [address] [address] CBC AND AUTO DIFFon 03-16-20 24 ABSOLUTE BASOPHIL 0.0 X10E9/L Normal 0.0-0.2 [facility] Comment on above: Performed By: #### C ARANZA ARAUJO, 1988-09 #### [facility] ([id number]) [address] [address] ABSOLUTE NEUTROPHIL 5.5 X10E9/L Normal 1.5-6.6 [facility] Comment on above: Performed By: #### C VAN CMP, 1987-09 #### [facility] ([id number]) [address] [address] Basophils/100 WBC (Bld) 0.4 % Normal [facility] Comment on above: Performed By: #### Jacqueline ARAUJO [facility], 1987-09 #### [facility] ([id number]) [address] [address] [place] [address] Eosinophils (Bld) [#/Vol] 0.1 10*3/uL Normal 0.0-0.4 [facility] Comment on above: Performed By: #### Jacqueline ARAUJO CMP, 1987-09 #### [facility] ([id number]) [address], [facility] [address] [place] [address] Eosinophils/100 WBC (Bld) 1.9 % Normal [facility] Comment on above: Performed By: #### Jacqueline ARAUJO CMP, 1987-09 #### [facility] ([id number]) [address], [facility] [address] [place] [address] Erythrocyte distribution width (RBC) [Ratio] 18.1 % High 11.5-15.0 [facility] Comment on above: Performed By: #### Jacqueline ARAUJO CMP, 1987-09 #### [facility] ([id number]) [address], [facility] [address] [place] [address] Hematocrit (Bld) [Volume fraction] 39.2 % Normal 35-47 [facility] Comment on above: Performed By: #### Jacqueline ARAUJO CMP, 1987-09 #### [facility] ([id number]) [address], [address] [place] [address] Hemoglobin (Bld) [Mass/Vol] 13.4 g/dL Normal 11.7-15.5 [facility] Comment on above: Performed By: #### Jacqueline ARAUJO CMP, 1987-09 #### [facility] ([id number]) [address] [address] [place] [address] Lymphocytes (Bld) [#/Vol] 1.7 10*3/uL Normal 1.0-3.5 [facility] Comment on above: Performed By: #### Jacqueline ARAUJO CMP, 1987-09 #### [facility] ([id number]) [address] [place] [address] Lymphocytes/100 WBC (Bld) 22.1 % Normal [facility] Comment on above: Performed By: #### Jacqueline ARAUJO CMP, 1987-09 #### [facility] ([id number]) [address] [place] [address] MCH (RBC) [Entitic mass] 32.2 pg Normal 27-34 [facility] Comment on above: Performed By: #### Jacqueline ARAUJO CMP, 1987-09 #### [facility] ([id number]) [address], [facility] [address] [place] [address] MCHC (RBC) [Mass/Vol] 34.2 g/dL Normal 32-36 [facility] Comment on above: Performed By: #### Jacqueline ARAUJO CMP, 1988-09 #### [facility] ([id number]) [address], [facility] [address] [place] [address] MCV (RBC) [Entitic vol] 94 fL Normal 80-100 [facility] Comment on above: Performed By: #### Jacqueline ARAUJO [facility], 1987-09 #### [facility] ([id number]) [address] [place] [address] Monocytes (Bld) [#/Vol] 0.5 10*3/uL Normal 0-0.9 [facility] Comment on above: Performed By: #### Jacqueline ARAUJO CMP, 1988-09 #### [facility] ([id number]) [address], [address] [place] [address] Monocytes/100 WBC (Bld) 6.5 % Normal [facility] Comment on above: Performed By: #### Jacqueline ARAUJO CMP, 1988-09 #### [facility] ([id number]) [address], [address] [place] [address] Neutrophils/100 WBC (Bld) 69.1 % Normal [facility] Comment on above: Performed By: #### Jacqueline ARAUJO CMP, 1987-09 #### [facility] ([id number]) [address], [facility] [address] [place] [address] Platelet mean volume (Bld) [Entitic vol] 8.1 fL Normal 7-12 [facility] Comment on above: Performed By: #### Jacqueline ARAUJO CMP, 1987-09 #### [facility] ([id number]) [address], [facility] [address] [place] [address] Platelets (Bld) [#/Vol] 358 10*3/uL Normal 150-450 [facility] Comment on above: Performed By: #### Jacqueline ARAUJO CMP, 1987-09 #### [facility] ([id number]) [address], [address] [place] [address] RBC COUNT 4.17 X10E12/L Normal 3.80-5.20 [facility] Comment on above: Performed By: #### Jacqueline ARAUJO CMP, 1987-09 #### [facility] ([id number]) [address], [facility] [address] [place] [address] WBC (Bld) [#/Vol] 7.9 10*3/uL Normal 4.0-11.0 [facility] Comment on above: Performed By: #### Jacqueline ARAUJO CMP, 1988-09 #### [facility] ([id number]) [address], [address] [place] [address] COMPREHENSIVE METABOLIC PANE Alexandru 03-16-2024 Albumin [Mass/Vol] 3.4 g/dL Normal 3.2-5.3 [facility] Comment on above: Performed By: #### Jacqueline ARAUJO CMP, 1988-09 #### [facility] ([id number]) [address], [address] [place] [address] ALP [Catalytic activity/Vol] 52 U/L Normal 39-130 [facility] Comment on above: Performed By: #### Jacqueline ARAUJO CMP, 1988-09 #### [facility] ([id number]) [address], [address] [place] [address] ALT [Catalytic activity/Vol] 12 U/L Normal 0-31 [facility] Comment on above: Performed By: #### Jacqueline ARAUJO CMP, 1987-09 #### [facility] ([id number]) [address], [address] [place] [address] Anion gap [Moles/Vol] 11 mmol/L Normal 5-15 [facility] Comment on above: Performed By: #### Jacqueline ARAUJO CMP, 1988-09 #### [facility] ([id number]) [address], [address] [place] [address] AST [Catalytic activity/Vol] 17 U/L Normal 0-41 [facility] Comment on above: Performed By: #### Jacqueline ARAUJO CMP, 1987-09 #### [facility] ([id number]) [address], [address] [place] [address] Bilirubin [Mass/Vol] 0.4 mg/dL Normal 0.3-1.2 [facility] Comment on above: Performed By: #### Jaqcueline ARAUJO CMP, 1987-09 #### [facility] ([id number]) [address], [address] [place] [address] Calcium [Mass/Vol] 9.7 mg/dL Normal 8.5-10.5 [facility] Comment on above: Performed By: #### Jacqueline ARAUJO CMP, 1987-09 #### [facility] ([id number]) [address], [address] [place] [address] Chloride [Moles/Vol] 109 mmol/L Normal 98-109 [facility] Comment on above: Performed By: #### Jacqueline ARAUJO CMP, 1987-09 #### [facility] ([id number]) [address], [address] [place] [address] CO2 [Moles/Vol] 20 mmol/L Low 22-32 [facility] Comment on above: Performed By: #### C ARANZA ARAUJO, 1988-09 #### [facility] [facility] ([id number]) [address], [facility] [address] [place] [address] Creatinine [Mass/Vol] 0.75 mg/dL Normal 0.40-1.00 [facility] Comment on above: Result Comment: METH OD TRACEABLE TO IDMS STANDARD Performed By: #### C ARANZA ARAUJO, 1988-09 #### [facility] ([id number]) [address], [address] [place] [address] eGFR (CKD-EPI) NON-RACE DEPENDENT >90 Normal >59 [facility] Comment on above: Result Comment: Reported eGFR is based on the CKD-EPI 2020 equation that does not use a race coefficient. Performed By: #### C ARANZA ARAUJO, 1988-09 #### [facility] ([id number]) [address], [address] [place] [address] Glucose [Mass/Vol] 88 mg/dL Normal 65-99 [facility] Comment on above: Performed By: #### Jacqueline ARAUJO CMP, 1988-09 #### [facility] ([id number]) [address] [address] [place] [address] Potassium [Moles/Vol] 3.9 mmol/L Normal 3.5-5.0 [facility] Comment on above: Performed By: #### Jacqueline ARAUJO CMP, 1988-09 #### [facility] ([id number]) [address] [address] [place] [address] Protein [Mass/Vol] 6.4 g/dL Normal 6.0-8.0 [facility] Comment on above: Performed By: #### Jacqueline ARAUJO CMP, 1987-09 #### [facility] ([id number]) [address], [address] [place] [address] Sodium [Moles/Vol] 140 mmol/L Normal 134-146 [facility] Comment on above: Performed By: #### Jacqueline ARAUJO [facility], 1987-09 #### [facility] ([id number]) [address], [address] [place] [address] Urea nitrogen [Mass/Vol] 9 mg/dL Normal 5-23 [facility] Comment on above: Performed By: #### Jacqueline ARAUJO [facility], 1987-09 #### [facility] ([id number]) [address], [facility] [address] [place] [address] CRP [Mass/Vol]on 03-16-2024 C REACTIVE PROTEIN 0.6 mg/dL Normal 0.000-0.744 [facility] Comment on above: Performed By: #### Jacqueline ARAUJO [facility], 1987-09 #### [facility] ([id number]) [address], [facility] [address] [place] [address] BLOOD CULTUREon 03-13-2024 Bacteria identified Aer cx Nom (Bld) CULTURE RESULTS NO GROWTH 5 DAYS Normal [facility] Bacteria identified Aer cx Nom (Bld) CULTURE RESULTS NO GROWTH 5 DAYS Normal [facility] CBC AND AUTO DIFFon 03-13-20 ABSOLUTE BASOPHIL 0.0 X10E9/L Normal 0.0-0.2 [facility] Comment on above: Performed By: #### Jacqueline ARAUJO CMP, 1988-09, 16105-1 #### [facility] ([id number]) [address], [address] [place] [address] ABSOLUTE NEUTROPHIL 5.4 X10E9/L Normal 1.5-6.6 [facility] Comment on above: Performed By: #### Jacqueline ARAUJO CMP, 1988-09, 26611-1 #### [facility] ([id number]) [address], [address] [place] [address] Basophils/100 WBC (Bld) 0.4 % Normal [facility] Comment on above: Performed By: #### Jacqueline ARAUJO [facility], 1988-09, 78999-5 #### [facility] ([id number]) [address], [address] [place] [address] Eosinophils (Bld) [#/Vol] 0.1 10*3/uL Normal 0.0-0.4 [facility] Comment on above: Performed By: #### Jacqueline ARAUJO [facility], 1988-09, 40931-8 #### [facility] ([id number]) [address], [address] [place] [address] Eosinophils/100 WBC (Bld) 1.6 % Normal [facility] Comment on above: Performed By: #### Jacqueline ARAUJO [facility], 1987-09, 35827-4 #### [facility] ([id number]) [address], [address] [place] [address] Erythrocyte distribution width (RBC) [Ratio] 18.4 % High 11.5-15.0 [facility] Comment on above: Performed By: #### Jacqueline ARAUJO [facility], 1988-09, 27803-7 #### [facility] ([id number]) [address], [facility] [address] [place] [address] Hematocrit (Bld) [Volume fraction] 39.0 % Normal 35-47 [facility] Comment on above: Performed By: #### Jacqueline ARAUJO [facility], 37913-5 #### [facility] ([id number]) [address], [facility] [address] [place] [address] Hemoglobin (Bld) [Mass/Vol] 13.7 g/dL Normal 11.7-15.5 [facility] Comment on above: Performed By: #### Jacqueline ARAUJO [facility], 42459-6 #### [facility] ([id number]) [address] [address] [place] [address] Lymphocytes (Bld) [#/Vol] 1.9 10*3/uL Normal 1.0-3.5 [facility] Comment on above: Performed By: #### Jacqueline ARAUJO CMP, 1988-09, 39323-8 #### [facility] ([id number]) [address] [address] [place] [address] Lymphocytes/100 WBC (Bld) 24.0 % Normal [facility] Comment on above: Performed By: #### Jacqueline ARAUJO [facility], 1987-09, 95489-0 #### [facility] ([id number]) [address] [address] [place] [address] MCH (RBC) [Entitic mass] 32.5 pg Normal 27-34 [facility] Comment on above: Performed By: #### Jacqueline ARAUJO [facility], 1988-09, 89061-9 #### [facility] ([id number]) [address] [address] [place] [address] MCHC (RBC) [Mass/Vol] 35.0 g/dL Normal 32-36 [facility] Comment on above: Performed By: #### Jacqueline ARAUJO CMP, 1988-09, 19681-6 #### [facility] ([id number]) [address] [address] [place] [address] MCV (RBC) [Entitic vol] 93 fL Normal 80-100 [facility] Comment on above: Performed By: #### Jacqueline ARAUJO CMP, 1988-09, 90503-9 #### [facility] ([id number]) [address] [address] [place] [address] Monocytes (Bld) [#/Vol] 0.4 10*3/uL Normal 0-0.9 [facility] Comment on above: Performed By: #### Jacqueline ARAUJO CMP, 1988-09, 23603-2 #### [facility] ([id number]) [address], [address] [place] [address] Monocytes/100 WBC (Bld) 4.7 % Normal [facility] Comment on above: Performed By: #### Jacqueline ARAUJO CMP, 1988-09, 11620-9 #### [facility] ([id number]) [address], [address] [place] [address] Neutrophils/100 WBC (Bld) 69.3 % Normal [facility] Comment on above: Performed By: #### Jacqueline ARAUJO [facility], 1987-09, 67858-2 #### [facility] ([id number]) [address], [address] [place] [address] Platelet mean volume (Bld) [Entitic vol] 7.9 fL Normal 7-12 [facility] Comment on above: Performed By: #### Jacqueline ARAUJO CMP, 1988-09, 64509-7 #### [facility] ([id number]) [address], [address] [place] [address] Platelets (Bld) [#/Vol] 376 10*3/uL Normal 150-450 [facility] Comment on above: Performed By: #### Jacqueline ARAUJO CMP, 1988-09, 16330-4 #### [facility] ([id number]) [address], [address] [place] [address] RBC COUNT 4.20 X10E12/L Normal 3.80-5.20 [facility] Comment on above: Performed By: #### Jacqueline ARAUJO CMP, 1988-09, 15775-7 #### [facility] ([id number]) [address], [address] [place] [address] WBC (Bld) [#/Vol] 7.8 10*3/uL Normal 4.0-11.0 [facility] Comment on above: Performed By: #### Jacqueline ARAUJO CMP, 1988-09, 82884-9 #### [facility] ([id number]) [address], [address] [place] [address] COMPREHENSIVE METABOLIC PANE Alexandru 03-13-2024 Albumin [Mass/Vol] 3.4 g/dL Normal 3.2-5.3 [facility] Comment on above: Performed By: #### C [facility], 1987-09, 26159-8 #### [facility] ([id number]) [address], [address] [place] [address] ALP [Catalytic activity/Vol] 57 U/L Normal 39-130 [facility] Comment on above: Performed By: #### C [facility], 1987-09, 64185-0 #### [facility] ([id number]) [address], [address] [place] [address] ALT [Catalytic activity/Vol] 14 U/L Normal 0-31 [facility] Comment on above: Performed By: #### [facility], 1987-09, 18899-7 #### [facility] ([id number]) [address], [address] [place] [address] Anion gap [Moles/Vol] 8 mmol/L Normal 5-15 [facility] Comment on above: Performed By: #### [facility], 1987-09, 23394-6 #### [facility] ([id number]) [address], [address] [place] [address] AST [Catalytic activity/Vol] 19 U/L Normal 0-41 [facility] Comment on above: Performed By: #### C [facility], 53232-9 #### [facility] ([id number]) [address], [address] [place] [address] Bilirubin [Mass/Vol] 0.4 mg/dL Normal 0.3-1.2 [facility] Comment on above: Performed By: #### C VAN CMP, 1987-09, 12120-2 #### [facility] ([id number]) [address], [address] [place] [address] Calcium [Mass/Vol] 9.3 mg/dL Normal 8.5-10.5 [facility] Comment on above: Performed By: #### [facility], 1987-09, 70433-4 #### [facility] ([id number]) [address], [address] [place] [address] Chloride [Moles/Vol] 105 mmol/L Normal 98-109 [facility] Comment on above: Performed By: #### [facility], 1987-09, 50845-1 #### [facility] ([id number]) [address], [address] [place] [address] CO2 [Moles/Vol] 28 mmol/L Normal 22-32 [facility] Comment on above: Performed By: #### [facility], 1987-09, 48139-0 #### [facility] ([id number]) [address], [facility] [address] [place] [address] Creatinine [Mass/Vol] 0.82 mg/dL Normal 0.40-1.00 [facility] Comment on above: Result Comment: METH OD TRACEABLE TO IDMS STANDARD Performed By: #### [facility], 1987-09, 99082-6 #### [facility] ([id number]) [address], [address] [place] [address] GFR/1.73 sq M.predicted among non-blacks MDRD (S/P/Bld) [Vol rate/Area] 84 mL/min/{1.73_m2} Normal >59 [facility] Comment on above: Result Comment: Reported eGFR is based on the CKD-EPI 2020 equation that does not use a race coefficient. Performed By: #### [facility], 1987-09, 22964-5 #### [facility] ([id number]) [address], [address] [place] [address] Glucose [Mass/Vol] 97 mg/dL Normal 65-99 [facility] Comment on above: Performed By: #### [facility], 1987-09, 08348-6 #### [facility] ([id number]) [address], [address] [place] [address] Potassium [Moles/Vol] 3.1 mmol/L Low 3.5-5.0 [facility] Comment on above: Performed By: #### [facility], 16266-4 #### [facility] ([id number]) [address], [address] [place] [address] Protein [Mass/Vol] 6.3 g/dL Normal 6.0-8.0 [facility] Comment on above: Performed By: #### Jacqueline ARAUJO [facility], 86831-3 #### [facility] ([id number]) [address], [address] [place] [address] Sodium [Moles/Vol] 141 mmol/L Normal 134-146 [facility] Comment on above: Performed By: #### Jacqueline ARAUJO CMP, 58533-1 #### [facility] ([id number]) [address], [address] [place] [address] Urea nitrogen [Mass/Vol] 8 mg/dL Normal 5-23 [facility] Comment on above: Performed By: #### C [facility], 32021-5 #### [facility] ([id number]) [address], [address] [place] [address] CRP [Mass/Vol]on 03-13-2024 C REACTIVE PROTEIN 0.7 mg/dL Normal 0.000-0.744 [facility] Comment on above: Performed By: #### Jacqueline ARAUJO CMP, 96032-3 #### [facility] ([id number]) [address], [address] [place] [address] ESR Photometric method (Bld) [Velocity]on 03-13-2024 ESR, ERYTHROCYTE SEDIMENTATION RATE 39 mm/h High 0-30 [facility] Comment on above: Performed By: #### C BCA, CMP, 1988-09, 44006-1 #### [facility] ([id number]) [address], [address] [place] [address] ASPIRATE CULTUREon Bacteria identified Aer cx Nom [...] <=1 F PIPERACIL/TAZOBACTAM S <=4 F Susceptible [facility] Comment on above: Performed By: #### 5 97-5 #### [facility] ([id number]) [address] [place] [address] AND DIFFon 2023 BODY FLUID COMMENT Interpreta tion--- ----- Normal [facility] Comment on above: Result Comment: Refe rence values for this fluid type are undefined, as fluid accumulation is considered abnormal. Performed By: #### B FCT #### [facility] ([id number]) [address] [place] [address] FLUID CLARITY CLOUDY Normal [facility] Comment on above: Performed By: #### B FCT #### [facility] ([id number]) [address], [address] [place] [address] FLUID COLOR HONG Normal [facility] Comment on above: Performed By: #### B FCT #### [facility] ([id number]) [address], [address] [place] [address] FLUID LYMPHOCYTE 5 % Normal [facility] Comment on above: Performed By: #### B FCT #### [facility] ([id number]) [address], [address] [place] [address] FLUID NEUTROPHILS 75 % Normal [facility] Comment on above: Performed By: #### B FCT #### [facility] ([id number]) [address], [address] [place] [address] [place] [address] /uL Normal [facility] Comment on above: Performed By: #### B FCT #### [facility] ([id number]) [address] [place] [address] FLUID SPECIMEN TYPE ASPIRATE Normal [facility] Comment on above: Result Comment: ABDO MISAEL PUMP POCKET Performed By: #### B FCT #### [facility] ([id number]) [address] [place] [address] MACROPHAGES 20 % Normal [facility] Comment on above: Performed By: #### B FCT #### [facility] ([id number]) [address] [place] [address] 4888 /uL Normal [facility] Comment on above: Performed By: #### B FCT #### [facility] ([id number]) [address], [address] [place] [address] Infectious Disease Office/Cl inic Noteon 11-10-2023 Infectious Disease Office/Clinic Note Assessment/Plan 1. Postoperative wound infection Plan: Unfortunately there is no other good oral options for coverage of Pseudomonas. She is advised to stop taking doxycycline as this will help her symptoms. I did call Dr. Montes his PA Hammad called back. She advised me to send patient back to [facility]. This is where she had her surgery done. She may need to MRI possible washout. This justowriter operator did call [facility] talk to charge nurse Dagmar gave her [...] and fusion by Dr. Saint Gregory at [facility]. She was discharged home on the . She was discharged on cephalexin for 10 days. She was taken back to surgery on October 11 due to persistent drainage and wound dehiscence. She had a fluid collection which was most consistent with seroma/infection . [place] Cultures grew Pseudomonas and she was discharged [...] data Procedure/Surgical History Neck Surgery Stomach Pain [place] [facility] (09/02/2023) incision & drainage (10/12/2023) [...] Chloride ( (more content not included)... Normal [facility] .eGFRon 10-26-2023 GFR/1.73 sq M.predicted MDRD (S/P/Bld) [Vol rate/Area] mL/min/{1.73_m2} Normal >=60 [facility] Comment on above: Order Comment: Order [...] years Performed By: #### E GFR #### [facility] [address] [place] [address] Basic Metabolic Profileon Anion gap [Moles/Vol] 10 mmol/L Normal -12 [facility] Comment on above: Performed By: #### C [id number] #### [facility] [address] [place] [address] Calcium [Mass/Vol] 9.4 mg/dL Normal 8.5-10.3 [facility] Comment on above: Performed By: #### C [id number] #### [facility] [address] [place] [address] Chloride [Moles/Vol] 101 mmol/L Normal 98-110 [facility] Comment on above: Performed By: #### C [id number] #### [address] [address] CO2 [Moles/Vol] 26 mmol/L Normal 22-32 [facility] Comment on above: Performed By: #### C [id number] #### [address] [address] Creatinine [Mass/Vol] 0.81 mg/dL Normal 0.44-1.03 [facility] Comment on above: Performed By: #### C [id number] #### [address] [address] Glucose [Mass/Vol] 82 mg/dL Normal 70-99 [facility] Comment on above: Performed By: #### C [id number] #### [address] [address] Potassium [Moles/Vol] 2.7 mmol/L Low 3.4-4.8 [facility] Comment on above: Performed By: #### C [id number] #### [address] [address] Sodium [Moles/Vol] 137 mmol/L Normal 133-142 [facility] Comment on above: Performed By: #### C D:[id number] #### [address] [address] Urea nitrogen [Mass/Vol] 15 mg/dL Normal 8-26 [facility] Comment on above: Performed By: #### C [id number] #### [address] [address] Urea nitrogen/Creatinin e [Mass ratio] 18.5 mg/mg Normal 10.0-20.0 [facility] Comment on above: Performed By: #### C [id number] #### [address] [address] CBC w/ Diffon 10-26-2023 Erythrocyte distribution width (RBC) [Ratio] 15.2 % High 11.6-14.8 [facility] Comment on above: Performed By: #### C BC #### [place] [id number] Hematocrit (Bld) [Volume fraction] 38.9 % Normal 36.0-46.0 [facility] Comment on above: Performed By: #### C BC #### [place] [id number] Hemoglobin (Bld) [Mass/Vol] 12.9 g/dL Normal 12.0-16.0 [facility] Comment on above: Performed By: #### C BC #### [place] [id number] MCH (RBC) [Entitic mass] 31.5 pg Normal 27.0-35.0 [facility] Comment on above: Performed By: #### C BC #### [place] [id number] MCHC 33.1 % Normal 31.0-37.0 [facility] Comment on above: Performed By: #### C BC #### [place] [id number] MCV (RBC) [Entitic vol] 95.0 fL Normal 80.0-100.0 [facility] Comment on above: Performed By: #### C BC #### [place] [id number] Platelet 367 x10*3/mcL Normal 150-450 [facility] Comment on above: Performed By: #### C BC #### [address] [address] Platelet mean volume (Bld) [Entitic vol] 7.7 fL Normal 6.7-10.6 [facility] Comment on above: Performed By: #### C BC #### [address] [address] RBC 4.10 x10*6/mcL Normal 3.80-5.20 [facility] Comment on above: Performed By: #### C BC #### [address] [address] WBC 12.3 x10*3/mcL High 4.5-11.0 [facility] Comment on above: Performed By: #### C BC #### [address] [address] CRPon 10-26-2023 CRP 2.71 mg/dL High 0.00-0.75 [facility] Comment on above: Result Comment: CRP measurement is useful for assessment of non-specific INFLAMMATORY RESPONSE to infection or injury AND is a sensitive MARKER of ACUTE INFLAMMATION including CARDIAC RISK ASSESSMENT. CARDIAC patients with elevated CRP are POTENTIALLY at a HIGHER RISK OF FUTURE CARDIAC EVENTS. Performed By: #### C RP #### [address] [address] Diff Autoon 10-26-2023 Baso Absolute 0.1 x10*3/mcL Normal 0.0-0.2 [facility] Comment on above: Performed By: #### . Automated Diff #### [address] [address] Basophils/100 WBC (Bld) 0.5 % Normal 0.0-1.5 [facility] Comment on above: Performed By: #### . Automated Diff #### [address] [address] Eos Absolute 0.3 x10*3/mcL Normal 0.0-0.4 [facility] Comment on above: Performed By: #### . Automated Diff #### [address] [address] Eosinophils/100 WBC (Bld) 2.1 % Normal 0.0-5.4 [facility] Comment on above: Performed By: #### . Automated Diff #### [address] [address] Lymph Absolute 2.2 x10*3/mcL Normal 1.0-4.8 [facility] Comment on above: Performed By: #### . Automated Diff #### [address] [place] [address] Lymphocytes/100 WBC (Bld) 18.0 % Low 27.2-40.8 [facility] Comment on above: Performed By: #### . Automated Diff #### [address] [address] [place] Absolute 0.6 x10*3/mcL Normal 0.1-1.1 [facility] Comment on above: Performed By: #### . Automated Diff #### [address] [address] Monocytes/100 WBC (Bld) 4.9 % Normal 3.7-11.9 [facility] Comment on above: Performed By: #### . Automated Diff #### [address] [address] Neutro Absolute 9.2 x10*3/mcL High 1.8-7.7 [facility] Comment on above: Performed By: #### . Automated Diff #### [address] [address] Neutro Auto 74.5 % High 47.2-70.8 [facility] Comment on above: Performed By: #### . Automated Diff #### [address] [address] ESRon 10-26-2023 Sed Rate 67 mm/hr High 0-30 [facility] Comment on above: Performed By: #### E SR #### [place] [id number] Infectious Disease Office/Cl inic Noteon 10-26-2023 Infectious [...] tabs, 0 Refill(s), 11/09/23 10:12:00 EDT, Pharmacy: [facility] #[id number] Basic Metabolic Profile C-Reactive Protein Complete Blood Count w/ Differential Erythrocyte Sedimentation Rate 2. Pseudomonas infection As above Ordered: levoFLOXacin, 1 tabs, Oral, q24hr, X 14 days, # 14 tabs, 0 Refill(s), 11/09/23 10:12:00 EDT, Pharmacy: [id number] #[id number] Basic Metabolic Profile C-Reactive Protein Complete Blood Count w/ Differential Erythrocyte Sedimentation Rate Chief Complaint New pt I&D done at [facility], possible infection of back. History of Present Illness Seen today for persistent drainage after back surgery on September 01. She had L3-L4 decompression and fusion by Dr. Saint Gregory at [facility]. She was discharged home on the . She was discharged on cephalexin for 10 days. She was taken back to surgery on October 11 due to persistent drainage and wound dehiscence. She had a fluid collection which was most consistent with seroma/infection . [place]. Cultures grew Pseudomonas and she was discharged on Cipro. She could not tolerate it and stopped it after 3 days. After the 10 days of cephalexin initially, she received cephalexin September 27 from [facility]. She apparently got doxycycline and azithromycin [...] data Procedure/Surgical History Neck Surgery Stomach Pain [place] [facility] (09/02/2023) incision & drainage (10/12/2023) [...] SARS-CoV-2 (COVID-19 (more content not included)... Normal [facility] Provider Letteron 10-26-2023 Provider Letter (Inserted Image. Shelly ble to display) Tejas Richardson DO [address] [place] [address] Re: Radha Dakota Date of Visit: 10/26/[address] Richardson, Thank you for your referral to my office. Attached you will find the most recent office visit note. Please call if you have any questions or concerns. Sincerely, Pavel Rodriges MD [address] [facility], [address] [place] [address] The following document(s) were included in the letter: October 26, 2023 10:13:55 EDT - (10/26/2023) Infectious Disease Office Visit Note [facility] [facility] ELECTROLYTESon 08-22-2023 Anion gap [Moles/Vol] 8 mmol/L Normal 5-15 [facility] Comment on above: Performed By: #### E LEC #### [facility] ([id number]) [address] [facility] [address] [place] [address] Chloride [Moles/Vol] 110 mmol/L High 98-109 [facility] Comment on above: Performed By: #### E LEC #### [facility] ([id number]) [address] [facility] [place] [address] CO2 [Moles/Vol] 23 mmol/L Normal 22-32 [facility] Comment on above: Performed By: #### E LEC #### [facility] ([id number]) [address] [facility] [address] [place] [address] Potassium [Moles/Vol] 4.4 mmol/L Normal 3.5-5.0 [facility] Comment on above: Performed By: #### E LEC #### [facility] ([id number]) [address] [facility] [address] [place] [address] Sodium [Moles/Vol] 141 mmol/L Normal 134-146 [facility] Comment on above: Performed By: #### E LEC #### [facility] ([id number]) [address] [facility] [place] [address] CARDIAC AZAR ADMITon 03-07- 020 CK [Catalytic activity/Vol] 915 U/L Critically high 30-135 [facility] Comment on above: Result Comment: Test repeated. Critical value verified. Performed By: #### D RUGRPD #### [facility] [address] [place], [place] [id number] Christian Mikayla CK.MB [Mass/Vol] 12.82 ng/mL Critically high <=2.37 [facility] Comment on above: Result Comment: Test repeated. Critical value verified. Performed By: #### D RUGRPD #### [facility] [address] [place], [place] [phone] Christian Mikayla INR Coag (Bld) [Relative time] SEE BELOW Normal [facility] Comment on above: Result Comment: <0.0 34 ng/ml NEGATIVE 0.034-0.119 INDETERMINATE 0.120 AMI CUT OFF Performed By: #### D RUGRPD #### [facility] [address] [place], [place] [id number] Christian Mikayla ÁNGEL 96.0 ng/mL Critically high <=61.[address] [facility] Comment on above: Performed By: #### D RUGRPD #### [facility] [address] [place], [place] [phone] Christian Mikayla TROP 0.028 ng/mL Normal <=0.034 [facility] Comment on above: Performed By: #### D RUGRPD #### [facility] [address] [place], [place] [phone] Christian Mikayla CK [Catalytic activity/Vol] 1282 U/L Critically high 30-135 [facility] Comment on above: Result Comment: Test repeated. Critical value verified. Performed By: #### T ROP, CMP #### [facility] [address] [place] [address] Christian Degroot CK.MB [Mass/Vol] 24.63 ng/mL Critically high <=2.37 Th e [facility] Comment on above: Result Comment: Test repeated. Critical value verified. Performed By: #### T ROP, CMP #### [facility] [address] [place], [place] [phone] Christian Santanaen INR Coag (Bld) [Relative time] SEE BELOW Normal [facility] Comment on above: Result Comment: <0.0 34 ng/ml NEGATIVE 0.034-0.119 INDETERMINATE 0.120 AMI CUT OFF Performed By: #### T ROP, CMP #### [facility] [address] [place] [address] Christian Mikayla ÁNGEL 235.0 ng/mL Critically high <=61.5 [facility] Comment on above: Performed By: #### T ROP, CMP #### [facility] [address] [place] [address] Christian Mikayla TROP 0.033 ng/mL Normal <=0.034 [facility] Comment on above: Performed By: #### T ROP, CMP #### [facility] [address] [place], [place] [phone] Christian Mikayla CBC AUTO DIFFon 03-07-2020 Basophils (Bld) [#/Vol] 0.0 103/ul Normal 0.0-0.1 [facility] Comment on above: Performed By: #### C BC #### [facility] [address] [place], [place] [phone] Christian Mikayla Basophils/100 WBC (Bld) 0.1 % Critically low 0.2-2.0 [facility] Comment on above: Performed By: #### C BC #### [facility] [address] [place], [place] [phone] Christian Mikayla Eosinophils (Bld) [#/Vol] 0.0 103/ul Normal 0.0-0.7 [facility] Comment on above: Performed By: #### C BC #### [facility] [address] [place], [place] [phone] Christian Mikayla Eosinophils/100 WBC (Bld) 0.0 % Critically low 0.9-7.0 [facility] Comment on above: Performed By: #### C BC #### [facility] [address] [place], [place] [address] Christianvíctor Degroot Erythrocyte distribution width (RBC) [Ratio] 13.4 % Normal 11.0-15.0 [facility] Comment on above: Performed By: #### C BC #### [facility] [address] [place], [place] [address] Christian Mikayla Hematocrit (Bld) [Volume fraction] 35.4 % Critically low 36.0-48.0 [facility] Comment on above: Performed By: #### C BC #### [facility] [address] [place] [address] Christian Mikayla Hemoglobin (Bld) [Mass/Vol] 11.4 g/dL Critically low 12.0-16.0 [facility] Comment on above: Performed By: #### C BC #### [facility] [address] [place] [address] Christian Mikayla IG # 0.07 10e3/ul Critically high 0.00-0.03 [facility] Comment on above: Performed By: #### C BC #### [facility] [address] [place] [address] Christian Mikayla IG % 0.4 % Normal 0.0-0.5 [facility] Comment on above: Performed By: #### C BC #### [facility] [address] [place], [place] [phone] Christian Mikayla Lymphocytes (Bld) [#/Vol] 1.1 103/ul Critically low 1.2-3.8 [facility] Comment on above: Performed By: #### C BC #### [facility] [address] [place], [place] [phone] Christian Mikayla Lymphocytes/100 WBC (Bld) 6.9 % Critically low 20.5-60.0 [facility] Comment on above: Performed By: #### C BC #### [facility] [address] [place], [place] [phone] Christian Mikayla MANUAL DIFF REQ NO Normal [facility] Comment on above: Performed By: #### C BC #### [facility] [address] [place], [place] [address] Christianvíctor Degroot MCH (RBC) [Entitic mass] 32.7 pg Normal 26.7-34.0 [facility] Comment on above: Performed By: #### C BC #### [facility] [address] [place], [place] [address] Christianvíctor Santanaen MCHC (RBC) [Mass/Vol] 32.2 g/dL Normal 29.9-35.2 [facility] Comment on above: Performed By: #### C BC #### [facility] [address] [place], [place] [address] Christian Mikayla MCV (RBC) [Entitic vol] 101.4 fL Critically high 81.0-99.0 [facility] Comment on above: Performed By: #### C BC #### [facility] [address] [place], [place] [address] Christian Mikayla Monocytes (Bld) [#/Vol] 1.4 103/ul Critically high 0.3-0.8 [facility] Comment on above: Performed By: #### C BC #### [facility] [address] [place], [place] [address] Christian Mikayla Monocytes/100 WBC (Bld) 8.6 % Normal 1.7-12.0 [facility] Comment on above: Performed By: #### C BC #### [facility] [address] [place], [place] [address] Christian Mikayla Neutrophils (Bld) [#/Vol] 13.4 103/ul Critically high 1.4-6.5 [facility] Comment on above: Performed By: #### C BC #### [facility] [address] [place], [place] [address] Christian Mikayla Neutrophils/100 WBC (Bld) 84.0 % Critically high 43.0-75.0 [facility] Comment on above: Performed By: #### C BC #### [facility] [address] [place], [place] [address] Christian Mikayla Platelet mean volume (Bld) [Entitic vol] 9.5 fL Normal 9.5-13.5 [facility] Comment on above: Performed By: #### C BC #### [facility] [address] [place], [place] [address] Christianvíctor Santanaen Platelets (Bld) [#/Vol] 207 103/ul Normal 150-450 [facility] Comment on above: Performed By: #### C BC #### [facility] [address] [place], [place] [address] Christian Mikayla RBC (Bld) [#/Vol] 3.49 106/ul Critically low 4.20-5.40 [facility] Comment on above: Performed By: #### C BC #### [facility] [address] [place], [place] [address] Christian Mikayla WBC (Bld) [#/Vol] 16.0 103/ul Critically high 4.0-11.0 [facility] Comment on above: Performed By: #### C BC #### [facility] [address] [place], [place] [address] Christian Mikayla PROF CHEM 8 (BAS METB)on Anion gap [Moles/Vol] 11.2 mmol/L Normal [facility] Comment on above: Performed By: #### D RUGRPD #### [facility] [address] [place], [place] [address] Christian Mikayla Calcium [Mass/Vol] 8.3 mg/dL Critically low 8.4-10.2 [facility] Comment on above: Performed By: #### D RUGRPD #### [facility] [address] [place], [place] [address] Christian Mikayla Chloride [Moles/Vol] 106 mmol/L Normal 98-107 [facility] Comment on above: Performed By: #### D RUGRPD #### [facility] [address] [place], [place] [address] Christian Mikayla CO2 [Moles/Vol] 24.5 mmol/L Normal 22.0-30.0 [facility] Comment on above: Performed By: #### D RUGRPD #### [facility] [address] [place] [id number] Christian Mikayla Creatinine [Mass/Vol] 0.53 mg/dL Normal 0.52-1.04 [facility] Comment on above: Performed By: #### D COLT #### [facility] [address] [place] [id number] Christian Mikayla EGFR-AF NEPALESE >60 Normal >=60 [facility] Comment on above: Performed By: #### D RUGLANDYD #### [facility] [address] [place] [id number] Christian Mikayla EGFR-NON AF NEPALESE >60 Normal >=60 [facility] Comment on above: Performed By: #### D COLT #### [facility] [address] [place] [address] Christian Mikayla Glucose [Mass/Vol] 113 mg/dL Critically high 74-106 T [facility] Comment on above: Performed By: #### D COLT #### [facility] [address] [place] [address] Christian Mikayla Potassium [Moles/Vol] 3.7 mmol/L Normal 3.4-5.0 [facility] Comment on above: Performed By: #### D COLT #### [facility] [address] [place], [place] [phone] Christian Mikayla Sodium [Moles/Vol] 138 mmol/L Normal 137-145 [facility] Comment on above: Performed By: #### D COLT #### [facility] [address] [place] [address] Christian Mikayla Urea nitrogen [Mass/Vol] 12.0 mg/dL Normal 7.0-17.0 [facility] Comment on above: Performed By: #### D COLT #### [facility] [address] [place], [place] [phone] Christian Mikayla Urea nitrogen/Creatinin e [Mass ratio] 22.6 mg/mg Normal [facility] Comment on above: Performed By: #### D COLT #### [facility] [address] [place] [id number] Christian Mikayla CBC W MANUAL DIFFon 03-06-20 20 ATYPICAL LYMPH # Normal [facility] Comment on above: Performed By: #### D RUGRPD #### [facility] [address] [place] [address] Christian Mikayla ATYPICAL LYMPH % Normal [facility] Comment on above: Performed By: #### D RUGRPD #### [facility] [address] [place] [address] Christian Mikayla BAND # Normal 0.0-0.3 [facility] Comment on above: Performed By: #### D RUGRPD #### [facility] [address] [place] [address] Christian Mikayla BAND % Normal 0-5 [facility] Comment on above: Performed By: #### D RUGRPD #### [facility] [address] [place] [address] Christian Mikayla BASOM # 0.00 103/ul Normal 0.00-0.10 [facility] Comment on above: Performed By: #### D RUGRPD #### [facility] [address] [place] [address] Christian Mikayla BASOM % 0.0 % Critically low 0.2-2.0 [facility] Comment on above: Performed By: #### D RUGRPD #### [facility] [address] [place] [address] Christian Mikayla BLAST # Normal [facility] Comment on above: Performed By: #### D RUGRPD #### [facility] [address] [place] [address] Christian Mikayla BLAST % Normal [facility] Comment on above: Performed By: #### D RUGRPD #### [facility] [address] [place] [address] Christian Mikayla CORRECTED WBC Normal 4.0-11.0 [facility] Comment on above: Performed By: #### D RUGRPD #### [facility] [address] [place] [address] Christian Mikayla Eosinophils (Bld) [#/Vol] 0.00 103/ul Normal 0.00-0.70 [facility] Comment on above: Performed By: #### D RUGRPD #### [facility] [address] [place], [place] [address] Christian Mikayla Eosinophils/100 WBC (Bld) 0.0 % Critically low 0.9-7.0 [facility] Comment on above: Performed By: #### D RUGRPD #### [facility] [address] [place], [place] [address] Christian Mikayla Erythrocyte distribution width (RBC) [Ratio] 13.2 % Normal 11.0-15.0 [facility] Comment on above: Performed By: #### D RUGRPD #### [facility] [address] [place], [place] [address] Christian Mikayla Hematocrit (Bld) [Volume fraction] 44.1 % Normal 36.0-48.0 [facility] Comment on above: Performed By: #### D RUGRPD #### [facility] [address] [place], [place] [address] Christian Mikayla Hemoglobin (Bld) [Mass/Vol] 13.9 g/dl Normal 12.0-16.0 [facility] Comment on above: Performed By: #### D RUGRPD #### [facility] [address] [place] [address] Christian Mikayla LYMPHM # 0.26 103/ul Critically low 1.20-3.80 [facility] Comment on above: Performed By: #### D RUGRPD #### [facility] [address] [place], [place] [address] Christian Mikayla LYMPHM% 1.0 % Critically low 20.5-60.0 [facility] Comment on above: Performed By: #### D RUGRPD #### [facility] [address] [place], [place] [phone] Christian Mikayla MCH (RBC) [Entitic mass] 32.6 pg Normal 26.7-34.0 [facility] Comment on above: Performed By: #### D RUGRPD #### [facility] [address] [place], [place] [phone] Christian Mikayla MCHC (RBC) [Mass/Vol] 31.5 g/dl Normal 29.9-35.2 [facility] Comment on above: Performed By: #### D RUGRPD #### [facility] [address] [place] [address] Christian Degroot MCV (RBC) [Entitic vol] 103.3 fL Critically high 81.0-99.0 [facility] Comment on above: Performed By: #### D RUGRPD #### [facility] [address] [place] [address] Christain Mikayla METAMYELOCYTE # Normal [facility] Comment on above: Performed By: #### D RUGRPD #### [facility] [address] [place] [address] Christianvíctor Degroot METAMYELOCYTE % Normal [facility] Comment on above: Performed By: #### Dwayne LESLIERPD #### [facility] [address] [place] [address] Christian Mikayla MONOM# 1.32 103/ul Critically high 0.30-0.80 [facility] Comment on above: Performed By: #### Dwayne LESLIERPD #### [facility] [address] [place] [address] Christian Mikayla MONOM% 5.0 % Normal 1.7-12.0 [facility] Comment on above: Performed By: #### Dwayne LESLIERPD #### [facility] [address] [place] [address] Christian Mikayla MYELOCYTE # Normal [facility] Comment on above: Performed By: #### D RUGRPD #### [facility] [address] [place] [address] Christian Mikayla MYELOCYTE % Normal [facility] Comment on above: Performed By: #### D MARIAMARPD #### [facility] [address] [place] [address] Christian Degroot NRBC Normal [facility] Comment on above: Performed By: #### D MARIAMARPD #### [facility] [address] [place] [address] Christian Degroot Platelet mean volume (Bld) [Entitic vol] 9.6 fL Normal 9.5-13.5 [facility] Comment on above: Performed By: #### D MARIAMARPD #### [facility] [address] [place] [address] Christian Degroot Platelets (Bld) [#/Vol] 268 103/ul Normal 150-450 [facility] Comment on above: Performed By: #### D JUNED #### [facility] [address] [place], [place] [address] Christian Degroot RBC (Bld) [#/Vol] 4.27 106/ul Normal 4.20-5.40 [facility] Comment on above: Performed By: #### D JUNED #### [facility] [address] [place], [place] [address] Christian Degroot SEG # 24.82 103/ul Critically high 1.40-6.50 [facility] Comment on above: Performed By: #### D COLT #### [facility] [address] [place], [place] [address] Christian Degroot Segmented neutrophils/100 WBC (Bld) 94.0 % Critically high 43.0-75.0 [facility] Comment on above: Performed By: #### D JUNED #### [facility] [address] [place], [place] [address] Christian Degroot WBC (Bld) [#/Vol] 26.4 103/ul Critically high 4.0-11.0 [facility] Comment on above: Performed By: #### D JUNED #### [facility] [address] [place], [place] [address] Christian Degroot CPKon 03-06-2020 CK [Catalytic activity/Vol] 464 U/L Critically high 30-135 [facility] Comment on above: Result Comment: test repeated critical value verified Performed By: #### C K #### [facility] [address] [place], [place] [phone] Christian Degroot CT ABD/PELV W CONon 03-06-20 [...] by: MAT CASEY Date: 2020-03-06 18:[address] [facility] [address] STROKE HEAD WOon 03-06-20 20 [...] MAT CASEY Date: 2020-03-06 16:31 Normal [facility] DRUG SCREEN RAPID (URINE)on 03-06-2020 AMP Positive Normal NEGATIVE [facility] Comment on above: Performed By: #### D RUGRPD #### [facility] [address] [place] [address] Christian Mikayla BAR Negative Normal NEGATIVE [facility] Comment on above: Performed By: #### D RUGRPD #### [facility] [address] [place] [address] Christian Mikayla BUP Negative Normal NEGATIVE [facility] Comment on above: Performed By: #### D RUGRPD #### [facility] [address] [place] [address] Christian Mikayla BZO Negative Normal NEGATIVE [facility] Comment on above: Performed By: #### D RUGRPD #### [facility] [address] [place] [address] Christian Mikayla RITCHIE Negative Normal NEGATIVE [facility] Comment on above: Performed By: #### D RUGRPD #### [facility] [address] [place] [address] Christian Mikayla CUT-OFFS SEE BELOW Normal [facility] Comment on above: Result Comment: [...] ng/mL Performed By: #### D RUGRPD #### [facility] [address] [place] [address] Mikayla DRUG CUT HEADER DRUG CLASS TEST SYST EM CUT-OFF CONCENTRATIONS ARE FOLLOWS: Normal [facility] Comment on above: Performed By: #### D RUGRPD #### [facility] [address] [place] [address] Christian Mikayla mAMP Negative Normal NEGATIVE [facility] Comment on above: Performed By: #### D RUGRPD #### [facility] [address] [place] [address] Christian Mikayla MTD Negative Normal NEGATIVE [facility] Comment on above: Performed By: #### D RUGRPD #### [facility] [address] [place] [address] Christian Mikayla OPI Positive Normal NEGATIVE [facility] Comment on above: Performed By: #### D RUGRPD #### [facility] [address] [place] [address] Christian Mikayla OXY Negative Normal NEGATIVE [facility] Comment on above: Performed By: #### D RUGRPD #### [facility] [address] [place] [address] Christian Mikayla PCP Negative Normal NEGATIVE [facility] Comment on above: Performed By: #### D RUGRPD #### [facility] [address] [place] [address] Christian Mikayla PPX Negative Normal NEGATIVE [facility] Comment on above: Performed By: #### D RUGRPD #### [facility] [address] [place] [address] Christian Mikayla TCA Negative Normal NEGATIVE [facility] Comment on above: Performed By: #### D RUGRPD #### [facility] [address] [place] [address] Christian Mikayla THC Negative Normal NEGATIVE [facility] Comment on above: Performed By: #### D RUGRPD #### [facility] [address] [place] [address] Christian Mikayla ER URINE PROFILEon 0 Bilirubin [Mass/Vol] Negative Normal NEGATIVE [facility] Comment on above: Performed By: #### E RUR #### [facility] [address] [place] [address] Christian Mikayla BLOOD Negative Normal NEGATIVE [facility] Comment on above: Performed By: #### E RUR #### [facility] [address] [place] [address] Christian Mikayla Clarity (U) CLEAR Normal [facility] Comment on above: Performed By: #### E RUR #### [facility] [address] [place], [place] [phone] Christian Mikayla Color (U) YELLOW Normal YELLOW [facility] Comment on above: Performed By: #### E RUR #### [facility] [address] [place] [address] Christian Mikayla ERUAHD A micrscopic examina tion will be performed if indicated. Normal [facility] Comment on above: Performed By: #### E RUR #### [facility] [address] [place] [address] Christian Mikayla Glucose [Mass/Vol] Negative Normal NEGATIVE [facility] Comment on above: Performed By: #### E RUR #### [facility] [address] [place] [address] Christian Mikayla Ketones Ql (U) Negative Normal NEGATIVE [facility] Comment on above: Performed By: #### E RUR #### [facility] [address] [place] [address] Christian Mikayla Nitrite Ql (U) Negative Normal NEGATIVE [facility] Comment on above: Performed By: #### E RUR #### [facility] [address] [place] [address] Christian Mikayla pH (Bld) 6.0 Normal 5-9 [facility] Comment on above: Performed By: #### E RUR #### [facility] [address] [place], [place] [phone] Christian Mikayla Protein (U) [Mass/Vol] TRACE Normal [facility] Comment on above: Performed By: #### E RUR #### [facility] [address] [place] [address] Christian Mikayla SPEC GRAVITY >=1.030 Normal 1.005-<=1.02 5 [facility] Comment on above: Performed By: #### E RUR #### [facility] [address] [id number] Christianvíctor Degroot UR MICRO IND NOT INDICATED Normal [facility] Comment on above: Performed By: #### E RUR #### [facility] [address] [place], [place] [phone] Christianvíctor Degroot Urobilinogen Qn (U) 0.2 EU/dl Normal [facility] Comment on above: Performed By: #### E RUR #### [facility] [address] [place], [place] [phone] Christian Mikayla WBC (Bld) [#/Vol] Negative Normal NEGATIVE [facility] Comment on above: Performed By: #### E RUR #### [facility] [address] [place], [place] [id number] Christian Mikayla ETHANOL (BLD ALC)on 03-06-20 20 Ethanol [Mass/Vol] NOTE: 80 mg/dl is th e legal limit for a blood alcohol level Normal [facility] Comment on above: Performed By: #### E TH #### [facility] [address] [place], [place] [address] Christianvíctor Degroot Ethanol [Mass/Vol] mg/dL Normal [facility] Comment on above: Performed By: #### E TH #### [facility] [address] [place], [place] [address] Christian Mikayla HEMOGRAM AND PLATELon 2019 WBC (Bld) [#/Vol] 23.5 103/ul Critically high 4.0-11.0 T [facility] Comment on above: Performed By: #### H H #### [facility] [address] [place], [place] [address] Christian Mikayla LACTATE/LACTIC ACIDon 2019 Lactate [Moles/Vol] 0.7 mmol/L Normal 0.7-2.0 [facility] Comment on above: Performed By: #### L ACT #### [facility] [address] [place], [place] [address] Christian Mikayla MYOGLOBINon 03-06-2020 Myoglobin [Mass/Vol] 918.0 ng/mL Critically high <=61.5 [facility] Comment on above: Result Comment: test repeated critical value verified Performed By: #### M YO #### [facility] [address] [place], [place] [address] Christian Degroot POINT OF CARE GLUCOSEon 02-14 Glucose [Mass/Vol] 117 mg/dL Critically high 74-106 T [facility] Comment on above: Performed By: #### D RUGRPD #### [facility] [address] [place], [place] [address] Christianvíctor Degroot PROF 14(COMP METB)on 020 Albumin [Mass/Vol] 3.3 g/dL Critically low 3.5-5.0 [facility] Comment on above: Performed By: #### T BLAYNE, CMP #### [facility] [address] [place], [place] [address] Christian Mikayla Albumin/Globulin [Mass ratio] 1.1 {ratio} Normal [facility] Comment on above: Performed By: #### T BLAYNE, CMP #### [facility] [address] [place], [place] [address] Christian Mikayla ALP [Catalytic activity/Vol] 69 U/L Normal 38-126 [facility] Comment on above: Performed By: #### T ROP, CMP #### [facility] [address] [place], [place] [address] Christian Mikayla ALT [Catalytic activity/Vol] 30 U/L Normal 9-52 [facility] Comment on above: Performed By: #### T ROP, CMP #### [facility] [address] [place], [place] [address] Christian Mikayla Anion gap [Moles/Vol] 16.8 mmol/L Normal [facility] Comment on above: Performed By: #### T ROP, CMP #### [facility] [address] [place], [place] [address] Christian Mikayla AST [Catalytic activity/Vol] 29 U/L Normal 14-36 [facility] Comment on above: Performed By: #### T ROP, CMP #### [facility] [address] [id number] Christian Mikayla Bilirubin Ql (U) 0.4 mg/dL Normal 0.2-1.3 [facility] Comment on above: Performed By: #### T ROP, CMP #### [facility] [address] [phone] Christian Mikayla Calcium [Mass/Vol] 8.7 mg/dL Normal 8.4-10.2 [facility] Comment on above: Performed By: #### T ROP, CMP #### [facility] [address] [phone] Christian Mikayla Chloride [Moles/Vol] 104 mmol/L Normal 98-107 [facility] Comment on above: Performed By: #### T ROP, CMP #### [facility] [address] [address] Christian Mikayla CO2 [Moles/Vol] 22.6 mmol/L Normal 22.0-30.0 [facility] Comment on above: Performed By: #### T ROP, CMP #### [facility] [address] [phone] Christian Mikayla Creatinine [Mass/Vol] 0.92 mg/dL Normal 0.52-1.04 [facility] Comment on above: Performed By: #### T ROP, CMP #### [facility] [address] [place], [place] [address] Christian Mikayla EGFR-AF NEPALESE >60 Normal >=60 [facility] Comment on above: Performed By: #### T ROP, CMP #### [facility] [address] [phone] Christian Mikayla EGFR-NON AF NEPALESE >60 Normal >=60 [facility] Comment on above: Performed By: #### T ROP, CMP #### [facility] [address] [phone] Christian Mikayla Globulin (S) [Mass/Vol] 3.0 g/dL Normal [facility] Comment on above: Performed By: #### T ROP, CMP #### [facility] [address] [phone] Christian Mikayla Glucose [Mass/Vol] 130 mg/dL Critically high 74-106 [facility] Comment on above: Performed By: #### T ROP, CMP #### [facility] [address] [place] [address] Christian Mikayla Potassium [Moles/Vol] 4.4 mmol/L Normal 3.4-5.0 [facility] Comment on above: Performed By: #### T ROP, CMP #### [facility] [address] [place] [address] Christian Mikayla Protein [Mass/Vol] 6.3 g/dL Normal 6.1-8.2 [facility] Comment on above: Performed By: #### T BLAYNE, CMP #### [facility] [address] [place] [address] Christian Mikayla Sodium [Moles/Vol] 139 mmol/L Normal 137-145 [facility] Comment on above: Performed By: #### T BLAYNE, CMP #### [facility] [address] [place] [address] Christian Mikayla Urea nitrogen [Mass/Vol] 18.0 mg/dL Critically high 7.0-17.0 [facility] Comment on above: Performed By: #### T BLAYNE, CMP #### [facility] [address] [place] [address] Christian Mikayla Urea nitrogen/Creatinin e [Mass ratio] 19.6 mg/mg Normal [facility] Comment on above: Performed By: #### T ROP, CMP #### [facility] [address] [place] [address] Christian Mikayla RESPIRATORY PANEL PLUSon Adenovirus NOT DETECTED Normal NOT DETECTED [facility] Comment on above: Performed By: #### D RUGRPD #### [facility] [address] [place] [address] Christian Mikayla B. Parapertusis NOT DETECTED Normal NOT DETECTED [facility] Comment on above: Performed By: #### D RUGRPD #### [facility] [address] [place], [place] [address] Christian Mikayla B. Pertussis NOT DETECTED Normal NOT DETECTED [facility] Comment on above: Performed By: #### D RUGRPD #### [facility] [address] [place] [address] Christian Mikayla Chlamydia Pneumoniae NOT DETECTED Normal NOT DETECTED [facility] Comment on above: Performed By: #### D RUGRPD #### [facility] [address] [place] [address] Christian Mikayla Coronavirus 229E NOT DETECTED Normal NOT DETECTED [facility] Comment on above: Performed By: #### D RUGRPD #### [facility] [address] [place] [address] Christian Mikayla Coronavirus HKU1 NOT DETECTED Normal NOT DETECTED [facility] Comment on above: Performed By: #### D RUGRPD #### [facility] [address] [place] [address] Christian Mikayla Coronavirus NL63 NOT DETECTED Normal NOT DETECTED [facility] Comment on above: Performed By: #### D RUGRPD #### [facility] [address] [place] [address] Christian Mikayla Coronavirus OC43 NOT DETECTED Normal NOT DETECTED [facility] Comment on above: Performed By: #### D RUGRPD #### [facility] [address] [place] [address] Christian Mikayla Influenza A H1 2008 NOT DETECTED Normal NOT DETECTED [facility] Comment on above: Performed By: #### D RUGRPD #### [facility] [address] [place] [address] Christian Mikayla Influenza B NOT DETECTED Normal NOT DETECTED [facility] Comment on above: Performed By: #### D RUGRPD #### [facility] [address] [place] [address] Christian Mikayla Metapneumovirus NOT DETECTED Normal NOT DETECTED [facility] Comment on above: Performed By: #### D RUGRPD #### [facility] [address] [place] [address] Christian Mikayla Mycoplas. Pneumoniae NOT DETECTED Normal NOT DETECTED [facility] Comment on above: Performed By: #### D RUGRPD #### [facility] [address] [address] Christian Mikayla Parainfluenza 1 NOT DETECTED Normal NOT DETECTED [facility] Comment on above: Performed By: #### D RUGRPD #### [facility] [address] [address] Christian Mikayla Parainfluenza 2 NOT DETECTED Normal NOT DETECTED [facility] Comment on above: Performed By: #### D RUGRPD #### [facility] [address] [place] [address] Christian Mikayla Parainfluenza 3 NOT DETECTED Normal NOT DETECTED [facility] Comment on above: Performed By: #### D RUGRPD #### [facility] [address] [place] [address] Christian Mikayla Parainfluenza 4 NOT DETECTED Normal NOT DETECTED [facility] Comment on above: Performed By: #### D RUGRPD #### [facility] [address] [place] [address] Christian Mikayla Rhino/Enterovirus NOT DETECTED Normal NOT DETECTED [facility] Comment on above: Performed By: #### D RUGRPD #### [facility] [address] [place] [address] Christian Mikayla RP2 Header 1 RESPIRATORY PANEL: VIRUSES Normal [facility] Comment on above: Performed By: #### D RUGRPD #### [facility] [address] [place] [address] Christian Mikayla RP2 Header 2 RESPIRATORY PANEL: BACTERIA Normal [facility] Comment on above: Performed By: #### D RUGRPD #### [facility] [address] [place] [address] Christian Mikayla RP2 Header 4 EUA SEE BELOW Normal [facility] Comment on above: Result Comment: This test is not yet approved or cleared by the [place] FDA. When there are no FDA-approved or cleared tests available, and other criteria are met, FDA can make tests available under an emergency access mechanism called an Emergency Use Authorization (EUA). The EUA for this test is supported by the Gas Meter Checker of Health and Human Service?s (HHS?s) declaration [...] used). Performed By: #### D RUGRPD #### [facility] [address] [place] [address] RSV NOT DETECTED Normal NOT DETECTED [facility] Comment on above: Performed By: #### D RUGRPD #### [facility] [address] [place], [place] [address] SARS-CoV-2: COVID-19 NOT DETECTED Normal NOT DETECTED [facility] Comment on above: Performed By: #### D RUGRPD #### [facility] [address] [place] [address] TROPONIN - Ion 03-06-2020 Troponin I.cardiac [Mass/Vol] 0.016 ng/mL Normal <=0.034 [facility] Comment on above: Performed By: #### T BLAYNE, CMP #### [facility] [address] [place] [address] Troponin I.cardiac [Mass/Vol] SEE BELOW Normal [facility] Comment on above: Result Comment: <0.0 34 ng/ml NEGATIVE 0.034-0.119 INDETERMINATE 0.120 AMI CUT OFF Performed By: #### T ROP, CMP #### [facility] [address] [place] [address] [facility] Von 03-06-2020 XR CHEST [...] by: FELA SMITH Date: 2020-03-06 15:07 [address] [facility] [address] 3D CERVICAL SPINE WITH CO NTRASTon 04-27-2018 CT 3D CERVICAL SPINE WITH CONTRAST [facility] [address] [place] [address] Patient Name: RADHA DUNCAN : 1970Sex: FAge: Race: WhiteMRN: [id number]. Location: 85Patient Status: OVisit #: [id number] Date: 04/10/2018 12:10:00 PMCompleted Date: 04/27/2018 10:58 AMRequesting Provider: MARY DIAL Attending Provider: MARY DIAL Report Copy To: TEJAS RICHARDSON Signs & Symptoms: M54.12 Radiculopathy, cervical region [id number]: Nyla MYELOGRAM AUTH [id number] VALID 04/11/18-07/12/18 PER [facility] [address] JYComments: Exam: CT 3D CERVICAL SPINE WITH CONTRASTAccession #: [id number] CT 3D CERVICAL SPINE WITH CONTRAST 04/27/2018 [...] findings. Electronically signed by:Oli Sanders. Transcribed by: [email or web address], User Resident: MANDEEP YOUNGElectronically Signed by: OLI SANDERS @ 04/27/2018 01:02 PMI personally read this/these film(s) with this resident Normal [facility] CT 3D LUMBAR SPINE W CONTRAS Ton 04-27-2018 CT 3D LUMBAR SPINE W CONTRAST [facility] [address] [place] [address] Patient Name: RADHA DUNCAN : 1970Sex: FAge: Race: WhiteMRN: [id number]. Location: 85Patient Status: DVisit #: [id number] Date: 04/10/2018 12:10:00 PMCompleted Date: 04/27/2018 10:59 AMRequesting Provider: MARY DIAL Attending Provider: MARY DIAL Report Copy To: DYLANTEJAS Signs & Symptoms: M54.16 Radiculopathy, lumbar region [id number]: Nyla MYELOGRAM AUTH [id number] VALID 04/11/18-07/12/18 PER [employer] [address] JYComments: Exam: CT 3D LUMBAR SPINE W CONTRASTAccession #: [id number] CT 3D LUMBAR SPINE W CONTRAST 04/27/2018 [...] findings. Electronically signed by:Antony Skelton. Transcribed by: [email or web address], User Resident: MANDEEP YOUNGElectronically Signed by: ANTONY SKELTON @ 04/27/2018 05:36 PMI personally read this/these film(s) with this resident Normal [facility] ENTIRE MYELOGRAMon 8 ENTIRE MYELOGRAM [facility] [address] [id number] Patient Name: RADHA DUNCAN : 1970Sex: FAge: Race: WhiteMRN: [id number]. Location: Patient Status: OVisit #: [id number] Date: 04/10/2018 12:10:00 PMCompleted Date: 04/27/2018 10:19 AMRequesting Provider: MARY DIAL Attending Provider: MARY DIAL Report Copy To: TEJAS RICHARDSON Signs & Symptoms: M54.16 Radiculopathy, lumbar region P49Mkrbdcu: [place] CT MYELOGRAMComments: , , , Ordering Provider - MARY DIAL MD , Exam: ENTIRE MYELOGRAMAccession #: [id number] ENTIRE MYELOGRAM 04/27/2018 10:19 AM EST SIGNS [...] and risks are acceptable. Consent was obtained. Timeout:Crescent protocol timeout verification performed. PROCEDURE:Estimated blood loss:None [...] findings. Electronically signed by:Oli Sanders. Transcribed by: [email or web address], User Resident: MANDEEP YOUNGElectronically Signed by: OLI SANDERS @ 04/27/2018 01:01 PMI personally read this/these film(s) with this resident Normal [facility] Comment on above: Order Comment: , , = ========= , Ordering Provider - MARY DIAL MD , Ta 02-20-2018 CNPYamilex Telephone ([facility]) -------RADHA DUNCAN ([id number]) 1970 FDate Time Provider Lviydoyfhv21/8/18 MAGED MURDOCK During your visit today, we recorded the following information about you:[facility] Patient Service Spec 02/20/2018 8:05 [...] from his care.Please call her back at [phone].Elysia Montoya Psr 02/22/2018 8:37 AM SignedPlease fax letter over to [phone].Clint Park LPN 02/27/2018 10:18 AM SignedSpoke with patient and she wanted to know if knew of a physician inthe area that she lived that could do the ketamine infusion.I explained most likely he would not have this information she would need tocheck around in her area with other pain providers to see if they do theinfusions. She said she found one in the [place] area but they want money upfront and [...] Known Allergies)Date Reviewed: 02/10/2018Reviewed by: Kayla Sparks JET SKI MECHANIC - Fully AssessedReason for Visit: Letter [264]Prescriptions [...] by MAGED MURDOCK MD on 02/28/18 Normal [facility] CNOVon 02-10-2018 CNOV Office Visit ([facility]) -------RADHA DUNCAN ([id number]) 1970 FDate Time Provider Department02/10/18 10:45 AM MAGED MURDOCK During your visit today, we recorded the following information about you: Pulse Respiration Blood pressure Weight 80/minute 16/minute 132/47 69.9 kgMaged Murdock MD 02/11/2018 1:30 PM AddendumSUBJECTIVE:The patient presents to [facility] Department for afollow-up appointment [...] percocet was last taken 02/09/2018 in the [facility] OARRS records were reviewed.Imaging results in scanned [...] than HPI.Data scribed by above mentioned MA/JET SKI MECHANIC/RN/PA, and personally reviewed andverified by physician. [...] treatment plan. Patient agreeswith above. 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 [...] any questions. Sincerely, Maged Murdock MDEncounter Number: [id number] Status:Closed by MAGED MURDOCK MD on 02/11/18 Normal [facility] PROGRESSon 02-10-2018 Protein mass conc HNO ID: [id number] thor: Maged Jolleyervice: (none)Author Type: PhysicianType: Progress NotesFiled: 02/11/2018 1:30 PMNote Text:SUBJECTIVE:The patient presents to [facility] Pain Management Departmentfor a follow-up appointment [...] than HPI.Data scribed by above mentioned MA/JET SKI MECHANIC/RN/PA, and personally reviewed andverified by physician. [...] with above. Maged Murdock, MDSeptember 2017 Normal [facility] CNOVon 01-10-2018 CNOV Office Visit ([facility]) -------DAKOTARADHA Dereje ([id number]) 1970 FDate Time Provider Department01/10/18 1:00 PM MONICA YAN (ARLENE) [facility] During your visit today, we recorded the following information about you: Pulse Blood pressure Weight 85/minute 127/47 70.3 kgMonica Yan APRN.CNP 01/10/2018 2:13 PM SignedSUBJECTIVE:The patient presents to [facility] Management Department for afollow-up appointment [...] and C4-C5 secondaryto DDDAnterior mechanical fusion of X3-9-9ONLFOD OF SYSTEMS:GENERAL: (-) weight loss, (+)malaise, (-)fevers.HEENT:(+)headache [...] than HPI.Data scribed by above mentioned MA/JET SKI MECHANIC/RN/PA, and personally reviewed andverified by Monica Yan [...] treatment plan. Patient agreeswith above.Monica Yan APRN.[facility] 2017Referring Provider: TEJAS RICHARDSON JR [[id number]]Allergies As of Date: 01/10/2018(No Known Allergies)Date Reviewed: 01/10/2018Reviewed by: lCint Park LPN - Fully AssessedReason for Visit: [...] INVALID FOR*Follow-up and Disposition History RecordedEncounter Number: [id number] Status:Closed by MONICA YAN CNP on 01/10/18 Normal [facility] PROGRESSon 01-09-2018 Protein mass conc HNO ID: [id number] thor: Monica Pereyra (Fast Food Supervisor) HillService: (none)Author Type: Nurse PractitionerType: Progress NotesFiled: 01/10/2018 2:13 PMNote Text:SUBJECTIVE:The patient presents to [facility] Departmentfor a follow-up appointment [...] to moderate foraminal narrowing at C3-C4, and C4-Z4qbpfdbucf to DDDAnterior mechanical fusion of P5-6-4GWOSMQ OF SYSTEMS:GENERAL: (-) weight loss, (+)malaise, (-)fevers.HEENT:(+)headache [...] than HPI.Data scribed by above mentioned MA/JET SKI MECHANIC/RN/PA, and personally reviewed andverified by Monica Yan [...] Patientagrees with above.Monica Yan APRN.Lali 2017 Normal [facility] Ta 12-21-2017 CNPN Telephone ([facility]) -------RADHA DUNCAN ([id number]) 1970 FDate Time Provider Department12/21/17 MAGED MURDOCK During your visit today, we recorded the following information about you:Lorena Araiza 12/21/2017 10:31 AM AddendumPatient calling in to inquire if you have received MRI films from [facility].Please advisJacob Park LPN 12/22/2017 3:15 PM SignedSpoke with patient and informed her that we did receive the thoracic MRI whichwas normal.We did not receive the cervical MRI. She will call [facility] and have them refaxit.Kami Zheng Workleader 12/26/2017 9:53 AM SignedPatient called back in regards to below message. Patient would like to know ifwe have received the Cervical MRI as it was refaxed 12/22. Pleasereview.Clint Park LPN 12/26/2017 11:01 AM SignedSpoke to [facility] and they are refaxing it as I [...] LPN - Fully AssessedReason for Visit: Question [4707]Prescriptions as of 12/21/2017 Sig: OXCARBAZEPINE 150 MG [...] by CLINT PARK LPN on 12/22/17 Normal [facility] CNOVon 12-08-2017 CNOV Office Visit ([facility]) -------DAKOTARADHA ([id number]) 1970 [facility] Time Provider Department12/08/17 1:30 PM MAGED MURDOCK During your visit today, we recorded the following information about you: Pulse Respiration Blood pressure Weight 62/minute 16/minute 105/40 68.9 kgMaged Murdock MD 12/08/2017 6:06 PM SignedReferring Or Consulting Physician:Lindsey Aguilar, PA[address] [address] COMPLAINT: pain in my neck, shoulders, thoracic [...] Number of children: 0Occupational 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 [...] also during rena-operative period. we dont have jqnv-zpxxsxi-ipwgmuei for disability, likely to hamper rapid recovery [...] she did have severe postprocedure pain in [place] [facility] handsDirect patient care time spent: [...] mail.Maged Murdock MDJuly 2017Referring Provider: LINDSEY AGUILAR [[id number]]Allergies As of Date: 12/08/2017(No Known Allergies)Date Reviewed: [...] region [M48.02]Order(s):C-REACTIVE PROTEIN (CRP) [SQCRP] Order #: [id number] FUTURE SED RATE WESTERGREN [SQWSR] Order #: [id number] FUTURE TSH BLD [SQTSH] Order #: [id number] FUTURE IRON + TIBC [SQIRON] Order #: [id number] FUTURE VITAMIN D 25 HYDROXY [SQVITD] Order #: [id number] FUTURE MRI THORACIC SPINE WO/W IVCON [[id number]] Order #: [id number] FUTURE iv contrast (will be provided with [...] EachRfl: 0 MRI CERVICAL SPINE WO IVCON [[id number]] Order #: [id number] FUTUREPrescriptions as of 12/08/2017 Sig: OXCARBAZEPINE 150 [...] is not on file.Letter TextJuly 2017Maged MurdockSamaritan HospitalDepartment of Pain [address], [place] [phone] [phone] Suzanne M Bailey:Thank you for seeing me [...] medications for the issues above, and [facility] next [facility]. Afterthat, further testing could be done to get to the bottom of your problems.Please call with any questions. 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 [...] she did have severepost procedure pain [place] [facility] handsDirect patient care time spent: [...] fax, or mail.Maged Murdock MDJuly 2017 Normal [facility] Vital Signs Date Time Vital Sign Value Performing Clinician Faci lity 06-26-2024 09:30-0500 Body height 160 cm Maged Contreras DO Work Phone: [facility] 06-26-2024 09:30-0500 Body mass index (BMI) [Ratio] 30.11 kg/m2 Maged Contreras DO Work Phone: [facility] 06-26-2024 09:30-0500 Body weight 77.11 kg Maged Contreras DO Work Phone: [facility] Encounters Encounter Date Encounter Type Care Provider Facility Start: 08-27-2024 End: 08-27-2024 ambulatory Christian Jameson MD Facility:[facility] Start: 07-23-2024 End: 07-23-2024 ambulatory Christian Jameson MD Facility:[facility] Start: 06-26-2024 End: 06-26-2024 Bamboo flowsheet Maged Eagle Ben DO Work Phone: [facility] Start: 06-26-2024 End: 06-26-2024 Bamboo flowsheet Maged Eagle Ben DO Work Phone: [facility] Start: 06-26-2024 End: 06-26-2024 Clinical [address] Gina Riddle [facility] Work Phone: [facility]EL[facility] Comment [...] 06-11-2024 End: 06-11-2024 ambulatory Christian Jameson MD Facility:[facility] Start: 04-24-2024 End: 04-24-2024 ambulatory [facility] Start: 04-11-2024 End: 04-11-2024 ambulatory [facility] Start: 04-04-2024 End: 04-04-2024 ambulatory [facility] Start: 03-27-2024 End: 03-27-2024 ambulatory FELA Mcghee [facility] Start: 03-20-2024 End: 03-20-2024 ambulatory FELA Mcghee [facility] Start: 03-16-2024 End: 03-16-2024 ambulatory TEJAS RICHARDSON [facility] Start: 03-15-2024 End: 03-15-2024 ambulatory [facility] Work Phone: Start: 03-15-2024 End: 03-15-2024 Patient encounter procedure [facility] Infectious Disease Work Phone: Start: 03-13-2024 End: 03-13-2024 [facility] Start: 03-07-2024 End: 03-07-2024 ambulatory [facility] Start: 12-15-2023 End: 01-15-2024 ambulatory TEJAS RICHARDSON [facility] Start: 12-05-2023 End: 12-15-2023 ambulatory TEJAS RICHARDSON [facility] Start: 11-10-2023 End: 11-10-2023 ambulatory Tejas Richardson DO Facility:Infectious Disease Start: 10-26-2023 End: 10-26-2023 ambulatory Pavel Rodriges MD Facility:[facility] Start: 10-26-2023 End: 10-26-2023 ambulatory Tejas Richardson DO Facility:Infectious Disease Start: 08-22-2023 End: 08-22-2023 ambulatory TEJAS RICHARDSON [facility] Start: 08-15-2023 End: 09-14-2023 ambulatory [facility] Start: 07-18-2023 End: 08-15-2023 ambulatory [facility] Start: 03-06-2020 End: 03-07-2020 Patient encounter procedure PEREZ LESTER Facility: Start: 04-27-2018 End: 04-28-2018 Patient encounter procedure PROVIDER UNKNOWN Facility:[facility] Start: 02-10-2018 End: 02-13-2018 Patient encounter MAGED MURDOCK [facility] Start: 01-10-2018 End: 01-11-2018 Patient encounter MONICA Pereyra ARLENE YAN [facility] Start: 12-08-2017 End: 12-09-2017 Patient encounter MAGED MURDOCK [facility] Procedures Date Procedure Procedure Detail Performing Clinician Start: 06-26-2024 AUDITORY FUNCTION TESTS Gina Autumn Riddle [facility]-A Work Phone: Start: 03-06-2020 End: 03-06-2020 Microscopic examination of blood, culture PEREZ LESTER Comment on above: Performed By: #### D RUGRPD #### [facility] [address] [address] Christian Degroot Start: 01-30-2020 Mammography Maged mercer DO Work Phone: Plan of Treatment Date Care Activity Detail Author Start: 02-06-2025 Screening for malign ant neoplasm of cervix [facility] Start: 06-26-2024 End: 06-26-2024 Patient encounter procedure 06/26/2024 9:30 AM EST Office Visit [facility] [address] [place] [address] Maged Contreras, [address] [place] [address] Arrived [facility] Comment on above: Arrived Start: 01-15-2024 Influenza vaccination Influenza Vacc ine (#1) [facility] Start: 01-29-2021 Screening for malign ant neoplasm of breast Mammogram [facility] Start: 1990 Screening for malign ant neoplasm of cervix Pap Smear [facility] Start: 1969 Screening for malign ant neoplasm of colon [facility] Immunizations Immunization Date Immunization Notes Care Provider Nazanin thornton 11-29-2020 Pfizer Purple Cap SARS-CoV-2 Vaccination Maged Contreras DO Work Phone: [facility] 11-09-2020 Pfizer Purple Cap SARS-CoV-2 Vaccination Maged Contreras DO Work Phone: [facility] 03-06-2020 influenza, high dose seasonal, preservative-free Maged Contreras DO Work Phone: [facility] 03-06-2020 influenza virus vacc ine, unspecified formulation Maged Contreras DO Work Phone: [facility] Payers Date Payer Category Payer Private Health Insurance [facility] [id number] 2023 Unknown 2023 Unknown [id number] 2022 Unknown [id number] 1969 Unknown [id number] 2.840.1.677654.3.579. 2.647 1969 Unknown [id number] 2.840.1.518213.3.579. 2.593 1969 Unknown [id number] 2.840.1.059198.3.579. 2.1285 1969 Unknown [id number] 2.840.1.999110.3.579. 2.128 1969 Unknown [id number] 2.840.1.220886.3.579. 2.1285 1969 Unknown [id number] 2.16840.1.935058.3.579. 2.1285 1969 Unknown [id number] 2.16840.1.450500.3.579. 2.1285 1969 Unknown [id number] 2.16840.1.155904.3.579. 2.1286 1969 Unknown [id number] 2.840.1.965197.3.579. 2.1285 1969 Unknown [id number] 2.840.1.281348.3.579. 2.1285 1969 Unknown [id number] 2.840.1.522167.3.579. 2.1285 1969 Unknown [id number] 2.840.1.588133.3.579. 2.1285 1969 Unknown [id number] 2.840.1.296851.3.579. 2.1285 1969 Unknown [id number] 2.0.1.552865.3.579. 2.1285 1969 Unknown [id number] .0.1.526170.3.579. 2.1285 1969 Unknown [id number] 2.0.1.856347.3.579. 2.1285 1969 Unknown [id number] 07.01.830.1.282860.3.579. 2.1285 1969 Unknown [id number] 07.01.830.1.159417.3.579. 2.9 1969 Unknown [id number] 07.01.830.1.099330.3.579. 2.1258 1969 Unknown [id number] .840.1.860831.3.579. 2. 1969 Unknown [id number] .840.1.030243.3.579. 2. 1969 Unknown [id number] 2.840.1.090696.3.579. 2. 1969 Unknown [id number] 2.840.1.885335.3.579. 2. 1969 Unknown [id number] .840.1.753011.3.579. 2.196 1969 Unknown [id number] 2.16.840.1.180241.3.579. 2.196 1969 Unknown [id number] 2.16.840.1.187144.3.579. 2.196 1959 Unknown [id number] Unknown [id number] Social History Date Type Detail Facility Tobacco smoking stat [facility] Unknown if ever smoked [facility] Work Phone: Start: 1970 Sex Assigned At Female F [facility] Tobacco smoking stat [facility] Tobacco smoking consumption unknown [facility] Start: 1970 Sex assigned at Not on file [facility] Start: 06-26-2024 Gender identity Not on file [facility] Start: 06-26-2024 Tobacco smoking stat [facility] Smokes tobacco daily [facility] History [...] back as needed documented in this encounter [facility] Evaluation note Note Date & Type Note Facility Evaluation note No assessment information availa [facility] Work Phone: Evaluation note Note Date & Type Note Facility Evaluation note Diagnosis Sensorineural hearing loss (SNHL) of left ear with unrestricted hearing of right ear- Primary Impacted cerumen of left ear Impacted cerumen documented in this encounter [facility] Evaluation note Note Date & Type Note Facility Evaluation note Diagnosis Conductive hearing loss of left ear with unrestricted hearing of right ear- Primary documented in this encounter [facility] Summary Purpose Family History No Family [...] section and content) DATE CREATED AUTHOR 04/03/2018 [facility] DATE CREATED AUTHOR AUTHOR'S ORGANIZ ATION 05/03/2018 [facility] DATE CREATED AUTHOR AUTHOR'S ORGANIZ ATION 04/09/2020 [facility] DATE CREATED AUTHOR AUTHOR'S ORGANIZ ATION 04/07/2024 [facility] DATE CREATED AUTHOR AUTHOR'S ORGANIZ ATION 04/28/2024 [facility] DATE CREATED AUTHOR AUTHOR'S ORGANIZ ATION 06/28/2024 [facility] DATE CREATED AUTHOR AUTHOR'S ORGANIZ ATION 09/06/2024 [facility] Care Teams (unrecognized sec tion and content) Team Status: Active Member Role Status Dates Tejas Richardson JR DO Primary Care Provider Active Team Status: Inactive Member Role Status Dates Tejas Richardson JR DO Primary Care Provider Active Start: March 15, 2024 End: March 15, 2024 Fela Roman MD Attending Provider Active Sta rt: March 15, 2024 End: March 15, 2024 Landscape Crew Member Relationship Specialty Start Date End Date Tejas Richardson MD [address] [place] [address] PCP - General Internal Medicine 06/26/24 Landscape Crew Member Relationship Specialty Start Date End Date Tejas Richardson MD [address] [place] [address] PCP - General Internal Medicine 06/26/24 Landscape Crew Member Relationship Specialty Start Date End Date Tejas Richardson MD [address] [place] [address] PCP - General Internal Medicine 06/26/24 Goals [...] BE BASED ON THE PRIMARY CLINICAL RECORDS. [facility] [employer] [facility]. provides no warranty or guarantee of the accuracy or completeness of information in this document.
--- NOTE | 2025-01-21 09:22 | PM.CN ---
Consult Note: HPI Data of Consult Patient: known to practice within the last 3 years Consult date: 01/21/25 Requesting Physician: Christian Jameson MD Primary Care Provider: ULYSSES RICHARDSON DO Consult Narrative Reason for consult: left hip pain Narrative: 55yof who presents for in office injection. continues to have left hip pain, would like to proceed with left gtb injection. cc:: CC: Christian Jameson MD Review of Systems ROS Status of ROS 10 or more systems reviewed and unremarkable except as noted in history and below PFSH PFSH Medical History DDD (degenerative disc disease) Osteopenia ?M85.80 - Other specified disorders of bone density and structure, unspecified site (ICD-10) Back pain ?M54.9 - Dorsalgia, unspecified (ICD-10) Depression ?F32.A - Depression, unspecified (ICD-10) Spinal stenosis ?M48.00 - Spinal stenosis, site unspecified (ICD-10) Neuropathy ?G62.9 - Polyneuropathy, unspecified (ICD-10) Migraine ?G43.909 - Migraine, unspecified, not intractable, without status migrainosus (ICD-10) GERD (gastroesophageal reflux disease) ?K21.9 - Gastro-esophageal reflux disease without esophagitis (ICD-10) Delayed recovery from anesthesia Menopause ?Z78.0 - Asymptomatic menopausal state (ICD-10) Surgical History H/O lumbosacral spine surgery ?Z98.890 - Other specified postprocedural states (ICD-10) S/P insertion of intrathecal pump ?Z98.890 - Other specified postprocedural states (ICD-10) S/P cervical spinal fusion ?Z98.1 - Arthrodesis status (ICD-10) Family History Other Family history of colon cancer Family history of diabetes mellitus Social History Within the past year, how often did you have a drink containing alcohol: never Score interpretation: A score less than 3 is consistent with normal alcohol consumption. Smoking status: Current every day smoker What tobacco products do you use: cigarettes Packs per day: 1 Years smoked: 39 Smoking pack-years: 39.00 Non-prescribed substance use: denies use Highest level of school completed/degree received: high school graduate Meds Home Medications and Allergies Home Medications ?Medication ?Instructions ?Recorded ?Confirmed ?Type duloxetine 60 mg capsule,delayed 60 mg PO BID 08/17/23 01/10/25 History release (Cymbalta) rosuvastatin 5 mg tablet (Crestor) 5 mg PO DAILY 08/17/23 08/27/24 History ibuprofen 800 mg tablet (IBU) 800 mg PO BID 01/10/25 01/10/25 History tizanidine 4 mg capsule 8 mg PO .QHS PRN muscle spasticity 01/10/25 01/10/25 History Allergies Allergy/AdvReac Type Severity Reaction Status Date / Time morphine AdvReac overdose Verified 08/27/24 08:02 Exam Narrative Exam Narrative: Psych-alert and oriented x 3.? Attentive and appropriate, constitutionally normal, displays normal mood and affect per situation.? There are no obvious deficits in memory, reasoning, or intellect.? Skin-no obvious rashes, bruising, erythema noted to the patient's area of pain. Extremities- extremities are warm with minimal edema and palpable pulses. Hip-tenderness to palpation is noted over the left greater trochanter. Pain is elicited with internal and external rotation of the hip.? Hip provocative maneuvers are positive and consistent with the patient's normal pain.? Coordination remains intact.? Gait remains antalgic. Assessment and Plan Assessment and Plan (1) Greater trochanteric bursitis of left hip: Plan 55yof who presents for in office injection. continues to have left hip pain, would like to proceed with injection. i am in agreement. follow up in 3 months. procedure: left greater trochanteric bursa injection medications: bupviacaine 0.25% 4cc, depomedrol 40mg I explained the details of the procedure to the patient including the risks, benefits and alternatives. We had an informed discussion and the patient verbalized understanding and signed the consent form. All questions were answered appropriately.? A time out was performed.? The skin overlying the left lateral hip was prepped with alcohol x3. A sterile syringe containing the above medication was attached to a 25 gauge, 3.5 inch needle under strict aseptic technique. The greater trochanter and point of tenderness was palpated. At this point, the needle was then advanced through the subcutaneous tissue down to os. The needle was withdrawn slightly and the contents of the syringe were gently injected without any resistance. The needle was removed and pressure was applied to the injection site to decrease the incidence of ecchymosis and hematoma formation.? A sterile bandage was applied. Post procedural instructions were given to the patient.
== END 2025-01-21 08:47 | disposition home or self-care (01) ==
PROVIDERS: PCP Internal Medicine; Visit Provider Anesthesiology
DX: M70.62 Trochanteric bursitis, left hip (principal)
CPT/HCPCS: 20610; J0665; J1010

== ENCOUNTER 2025-03-01 09:50 | Outpatient (OUT) | payer OTHER, SELFPAY ==
--- OUTSIDE RECORDS SUMMARY | 2023-10-28 08:30 | XMS_ITS ---
Author Organization [facility] Address [address] [place] [address] Care Team Providers Care Clinical Nursing Director Name Role Phone Nicole Collado Unavailable [phone] Tejas Newell Unavailable Unavailable REASON FOR VISIT S/P I & D 10/11, IOS Encounters Encounter Location Date Provider Diagnosis [facility] [address] [place] [phone] 10/28/2023 Nicole Collado Plan Of Treatment No Information Progress Notes * RAHEEM DUNCAN MDOB: [birth year] (55 yo F)Acc No.[id number]:10/28/2023 Progress Notes Patient: Susan VEGA RAHEEM Dereje Provider: Taz Pineda MD, PhD :1970 A ge:53 Y S ex:Female Date:10/28/2023 Address:[address] [place], [place] [id number] Subjective: * Chief Complaints: * 1 . S/P I & D 10/11, IOS. * Medical History: Objective: * Vitals: Assessment: Plan: * Treatment: Forms: * Images: * Electronic signature of Samir Collado MD, PHD on 03/01/2025 at 09:54 AM EDT Sign off status: Pending * Provider: Taz Pineda MD, PhD Date: 0 10/28/2023 Generated for Printi ng/Faramug/eTransmitting on: 1 09:54 AM EDT
--- OUTSIDE RECORDS SUMMARY | 2024-06-22 04:30 | XMS_ITS ---
Author Organization [facility] Address [address] [place] [address] Care Team Providers Care Client Service Coordinator Name Role Phone Nicole Collado Unavailable [phone] LatashamiloTejas Unavailable Unavailable REASON FOR VISIT LUMBAR [...] Active Encounters Encounter Location Date Provider Diagnosis [facility] Office [address] [place] [address] [place] [address] 06/22/2024 Nicole Collado Aftercare following surgery of the musculoskeletal system Z47.89 Assessments Encounter Date Diagnosis (ICD Code) Assessment Notes Treatment Notes Treatment Clinical Notes Section Notes 06/22/2024 Aftercare following surgery of the musculoskeletal system (ICD-10 - Z47.89) Plan Of Treatment Pending Test Test Name Order Date Lumbar spine, 4v flex ext - [id number] 2024 Progress Notes * RAHEEM DUNCAN MDOB: [birth year] (55 yo F)Acc No.[id number]:06/22/2024 Patient: RAHEEM GUERIN Provider: Taz Pineda MD, PhD :1970 A ge:54 Y S ex:Female Date:06/22/2024 Address:[facility] [address] [place] [address], [id number] Subjective: * Chief Complaints: * 1 . [...] MD, PhD Date: 0 06/22/2024 Generated for Cecille quinn/Alecia/Brigetteitting on: 1 09:54 AM EDT
--- OUTSIDE RECORDS SUMMARY | 2025-03-01 09:54 | XMS_ITS | Continuity of Care Document ---
Author Organization [facility] Address [address] [place] [address] Phone Care Team Providers Care Utility Systems Repairer Operator Name Role Phone Tejas Newell JR Primary Care Provider Shubham Valentino DO Attending Provider Care Teams Patient Care Team Team Status: Active Member Role Status Dates Tejas Newell JR DO Primary Care Provider Active Visit Care Team Team Status: Inactive Member Role Status Dates Tejas Newell JR DO Primary Care Provider Active Start: February 18, 2025 End: February 18, 2025 Shubham Valentino DO Attending Provider Active S tart: February 18, 2025 End: February 18, 2025 Chief Complaint and Reason for Visit Chief Complaint Admit Date LUMBAR BACK PAIN February 18, 2025 10 :29am Reason for Visit Admit Date Fusion of lumbar spine February 18, 2025 10:29am Greater trochanteric bursitis of both hi ps February 18, 2025 10:29am Pain of both sacroiliac joints February 182024 10:29am Allergies, Adverse Reactions, Alerts Allergen Type Severity Reaction Last Updated Verified Status No Known Allergies Allergy Unknown Octobe r 2024 10:35am Yes Active Social History Smoking Status Status Start Date End Date Date of Observa tion Smokes tobacco daily (finding) January 31, 2025 11:46am Observation Status Observation Response Date of Response Legal Sex Female (finding) Sex Assigned At Female December Problems Active Problems Medical Problem Onset Date Status Infection/inflammation-neural device Unknown Active Greater trochanteric bursitis of both hips Unkno wn Active Pain of both sacroiliac joints Unknown A ctive Infection associated with device Unknown Active Fusion of lumbar spine Unknown Active Medications Medication Status Dose Units Route Directions Qty Days St art Date Stop Date End Date Instructions Adherence Duloxetine (Cymbalta) 60 mg capsule,del ayed release(DR/ EC) Active 60 MG PO Daily Octobe r 2023 12:00a m Complies with drug therapy Ibuprofen 800 mg tablet Active 800 MG PO Every 8 hours Octobe r 2023 12:00a m Complies with drug therapy Rosuvastati n (Crestor) 5 mg tablet Active 5 MG PO Daily Octobe r 2023 12:00a m Complies with drug therapy potassium chloride Discont inued PO Octobe r 2023 12:00a m Octob er 2024 10:36 am Metronidazo le 500 mg tablet Discont inued 500 MG PO Twice daily Octobe r 2023 12:00a m Decem scooter 2023 2:25p m calcium carbonate (Calcium 600) Discont inued PO Octobe r 2023 12:00a m Octob er 2024 10:36 am multivitami n (Daily Multi-Vitam in) Active PO Octobe r 2023 12:00a m Complies with drug therapy Tizanidine 4 mg tablet Active MG PO Daily at bedtime Octobe r 2024 12:00a m Complies with drug therapy Acetaminoph en-Codeine 300-30 mg tablet Active TAB PO Twice daily Octobe r 2024 12:00a m Complies with drug therapy Aspirin 81 mg tablet Active 81 MG PO Daily Octobe r 2024 12:00a m Complies with drug therapy Ezetimibe 10 mg tablet Active 10 MG PO Daily Octobe r 2024 12:00a m Complies with drug therapy Vital Signs Vital Reading Result Reference Range Collection Date/Time Height 64 [in_i] February 18 10:33am Weight 75.60 kg February 18 10:33am BMI (Body Mass Index) 28.5 kg/m2 Octobe r 2024 10:33am Advance Directives Advance Directive Response Recorded Date/ Time Advance Directives No January 11:46am Insurance Providers Guarantor Radha Woods Address [address] [phone] Contact Info. Home Phone: Payer Policy Id Subscriber's Name Subscriber Id Effectiv e Date Expiration Date [facility] [id number] tony vivas [id number] Encounters Encounter Location(s) Arrival/Admit Date Discharge/Depart Date Provider(s) Departed Physician/Prov ider Office Visit -[facility] Neurosurgery February 18, 2025 10:29am February 18, 2025 12:10pm Shubham Valentino , Recent Diagnosis Onset Date Admit Date Fusion of lumbar spine Unknown February 182024 10:29am Greater trochanteric bursitis of both hips Unkno wn February 18, 2025 10:29am Pain of both sacroiliac joints Unknown O ctober 2024 10:29am Assessments Diagnosis Onset Date Resolution Status Admit Date Fusion of lumbar spine acute Oc tober 2024 10:29am Greater trochanteric bursiti s of both hips acute February 18 10:29am Pain of both sacroiliac joints acute February 18, 2025 10:29am Plan of Treatment Author Shubham Valentino [facility] Authored February 18, 2025 11 :37am In summary is patient is a [age]-year-old female with a history of an L3-4 posterior spinal fusion as well as low back pain that radiates into the anterior thighs bilaterally. This time independent reviewed the MRI that she completed January 17. There is a fluid collection that is adjacent to the L3-4 screws and right-hand side which may represent a benign and capsule old seroma. I did expressed concern this is infected though and therefore I will order an ESR CRP on her. I then discussed the MRI with her where I I discussed that the MRI does not demonstrate any high-grade central or foraminal stenosis that be worthy of surgery. I did tell her that the rule out pseudoarthrosis that I also will obtain a CAT scan of her lumbar spine to rule out fractured hardware and flexion-extension films are all dynamic instability. Once her ESR CRP flexion-extension films and CAT scan is complete I will have her return. All questions were answered to the satisfaction of the patient she is in agreement the above plan. Future Tests Future scheduled test information is unavailable Pending Tests Pending diagnostic test information is unavailable Future Visits Future appointment information is unavailable Referrals to Other Providers Referral information is unavailable Future Procedures Procedure Name Ordered Date Scheduled Date C-Reactive Protein February 18, 2025 12:27pm Erythrocyte Sedimentation Rate February 18, 2025 12:27pm Future Medications Future medication information is unavailable Patient Instructions Patient instructions are unavailable
--- OUTSIDE RECORDS SUMMARY | 2025-03-01 09:54 | XMS_ITS | Clinical Summary ---
Author Organization [facility] Address [address] [place] [address] Care Team Providers Care Navy Material Inspector Name Role Phone Tejas Newell MD Primary [...] (06/26/2024): Added automatically from request for surgery [id number] Chronic migraine without aur a, with intractable migraine, so stated, with status migrainosus 06/01/2017 06/26/2024 Overview (06/26/2024): Added automatically from request for surgery [id number] Cervical spondylosis without myelopathy 05/04/2017 06/26/2024 Cervical radiculopathy 08/23/201606/26 Overview (06/26/2024): Added automatically from request for surgery [id number] Fibromyalgia 08/16/2016 06/26/2024 Neck pain 12/01/2015 06/26/2024 [...] 1969 FIT 1969 FOBT 1969 Sigmoidoscopy 1969 Mammogram 01/29/2021 01/30/2020, 12/19/2017 Pap Smear 02/06/2023 02/07/2020 Influenza Vaccine (#1) 2025 03/06/2020 Cervical Cancer Screening 02/06/2025 HPV/Cotest 02/06/2025 02/07/2020 Insurance [employer] Care Teams Navy Material Inspector Relationship Specialty Start Date End Date Tejas Newell MD [facility] [place] [address] PCP - General Internal Medicine 06/26/24
--- OUTSIDE RECORDS SUMMARY | 2025-03-01 09:54 | XMS_ITS | Clinical Summary ---
Author Organization [facility] Address [address] [place] [address] Care Team Providers Care Cardiology Clinical Nurse Specialist Name Role Phone Osiris Dixon DO, Charles Lewis Primary [facility] Provi sourav Terry Martinez MD Unavailable [phone] Hussein Aguilar Unavailable Allergies No known active [...] N ot on file 04/24/2020 Data from: https://www.neighborhoodatlas.medicine.[facility].edu/. 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
--- OUTSIDE RECORDS SUMMARY | 2025-03-01 09:55 | XMS_ITS | Encounter Summary ---
[id number] [address] [place] [address] Care Team Providers Care Women'S Studies Professor Name Role Phone Osiris Dixon Tejas Roddy Primary Care Provider Encounter Details Date Type Department Care Team (Late st Contact Info) Description 03/24/2023 Orders Only [facility] [address] [facility] [address] [place] [address] Lei Jung MD [address] [facility] [id number] Lumbar spondylosis Social History Tobacco Use Types [...] myelopathy documented in this encounter Care Teams Women'S Studies Professor Relationship Specialty Start Date End Date Tejas Newell Jr., [address] [place] [address] PCP - General Internal Medicine 11/03/16 documented as of this encounter
--- OUTSIDE RECORDS SUMMARY | 2025-03-01 09:55 | XMS_ITS | Clinical Summary ---
Author Organization [facility] Address [facility], [address] [place] [address] Care Team Providers Care Risk Control Officer Name Role Phone Tejas Newell DO Primary [...] on file Insurance [employer] Care Teams Risk Control Officer Relationship Specialty Start Date End Date Tejas Newell DO [facility] [place] [address] PCP - General Internal Medicine 05/01/19
--- OUTSIDE RECORDS SUMMARY | 2025-03-01 09:55 | XMS_ITS | Patient Health Record ---
Author Organization [facility] Address [address] [place] [address] Care Team Providers Care Cosmetologist Apprentice Name Role Phone Nicole Collado Unavailable [phone] Tejas Newell Unavailable Unavailable Allergies Allergen (clinical drug ingredient) Drug/Non [...] Problem Status W/U Status Risk Notes Problem 690032093 Arthrodesis status (Z98.1) Active confirmed Problem 9657570264 Other intervertebral disc displacement, lumbar region (M51.26) Active confirmed Problem 815206420 Radiculopathy, lumbar region (M54.16) Active confirmed Problem 782597093793224 Trochanteric bursitis, left hip (M70.62) Active confirmed Problem Dehiscence of surgical wound (58546293) Disruption of external operation (surgical) wound, not elsewhere classified, initial encounter (T81.31XA) Active confirmed Problem 24472271 Disruption of external operation (surgical) wound, not elsewhere classified, subsequent encounter (T81.31XD) Active confirmed Problem 35251918 DDD (degenerativ e disc disease), lumbar (M51.36) Active confirmed Problem 139260560 Urinary incontinence, unspecified type (R32) Active confirmed Problem 28931658 Spinal stenosis, lumbar region without neurogenic claudication (M48.061) Active confirmed Problem 607128427 Encounter for other orthopedic aftercare (Z47.89) Active confirmed Plan Of Treatment Pending Test Test Name Order Date Lumbar spine, 4v flex ext - 11577 2023 Lumbar spine, 4v flex ext - 76731 2023 Lumbar spine 2v ap and lat - 09104 02/16 Lumbar spine 2v ap and lat - 11306 10/06 Lumbar spine 2v ap and lat - 48571 11/03 DME - Lumbar Support, Surgical OTS 08/25 SFS - Lumbar Spine PT Order, Isometrics & Strenghening w/Modalities as needed, 2-3 times per week for 6 weeks 07/15/2023 MRI : Lumbosacral Spine W/O Contrast - 7 8 11/11/2023 Future Test Test Name Order Date Chest 2 views - 44167 08/03/2023 CBC 08/03/2023 Type and Screen Blood Type 08/03/2023 PT/PTT 08/03/2023 BMP 08/03/2023 MRSA (Bilateral Nares) PCR 08/03/2023 EKG 08/03/2023 Insurance Providers Payer Name Payer Address Payer Phone Subscriber Number Group Number Insured Name Patient Relationship to Insured Coverage Start Date Coverage End Date [employer] [address] [address] [place] [address] [id number] RAHEEM DUNCAN Self - patient is the insured Medical (General) History Medical History History ICD Code Osteoarthritis Anxiety Depression Surgical History Surgery Date(Month/Year) Lumbar wound I & D, closure 09/2023 Pain pump implant Fusion L3-4 laminectomy, PSF 08/2023
--- OUTSIDE RECORDS SUMMARY | 2025-03-01 09:55 | XMS_ITS | Encounter Summary ---
Author Organization [facility] tem Address [id number] [address] [place] [address] Care Team Providers Care Rubber Roller Grinder Name Role Phone Osiris Dixon DO, Charles L Primary Care Provider Reason for Referral * Diagnostic Imaging (Routine) - Pending Review Specialty Diagnoses / Procedures Referred By Contmarce t Referred To Contact Radiology Diagnoses Receiving intravenous antibiotic treatment at home Procedures IR PICC line PICC RN without port pump more than 5 years without guidance Albert Roman MD [address] [place] [address] Phone: tel: fax: Referral ID Status Reason Start Date Expiration Date V isits Requested Visits Authorized [id number] Pending Review 03/16/2024 03/16/2025 1 1 Encounter Details Date Type Department Care Team (Late st Contact Info) Description 03/16/2024 Orders Only [facility] - Interventional Radiology [address] [place] [address] Albert Roman MD [address] [place] [address] Receiving intravenous antibiotic treatment at [...] Primary documented in this encounter Care Teams Rubber Roller Grinder Relationship Specialty Start Date End Date Tejas Newell Jr., [address] [place] [address] PCP - General Internal Medicine 11/03/16 documented as of this encounter
--- OUTSIDE RECORDS SUMMARY | 2025-03-01 09:55 | XMS_ITS | Clinical Summary ---
Author Organization [facility] Address [id number] [address] [place] [address] Care Team Providers Care Science Job Titles Name Role Phone Osiris Dixon DOTejas Roddy [...] (10/26/2017): Added automatically from request for surgery [id number] Occipital neuralgia of left side 07/06/2017 Overview (07/06/2017): Added automatically from request for surgery [id number] Chronic migraine without aur a, with intractable migraine, so stated, with status migrainosus 06/01/2017 Overview (06/01/2017): Added automatically from request for surgery [id number] Cervical spondylosis without myelopathy 05/04/20 17 Cervical [...] 01/14/2025 03/06/2020 Medical Devices Implanted Type Area Viscera Washer Device Identifier Shelf Expiration Date Model / Serial / Lot Neuro Pump Pump [employer] [facility] [id number] / [id number] / Procedures Procedure Name Priority Date/Time Associated Diagnosis Comments HIGH RISK HPV W/MELIA Routine 02/07/2020 1:47 PM EDT Cervical smear, as part of routine gynecological examination from Last 3 Months or Most Recently Relevant to Health Maintenance Results * High risk HPV w/meila (02/07/2020 1:47 PM EDT) Hpv specimen type ThinPrep 02/07/2020 5:38 PM EDT [facility] Hpv 16 Negative Negative^N egative 02/12/2020 7:54 AM EDT [facility] Hpv 18 Negative Negative^N egative 02/12/2020 7:54 AM EDT [facility] Other high risk hpv Negative Negative^N egative 02/12/2020 7:54 AM EDT [facility] Comment: HPV types 31,33,35,39,45,52,56,58,59,66 and 68 DNA were undetectable. Serum / Unknown 02/07/2020 1 :47 PM EDT 02/07/2020 6:01 PM EDT us Adriana Cooper MD LAB BLOOD ORDERABLES Final Resul t Performing Organization Address City/State/[facility] Co de Phone Number [facility] [address] [place] [address] [facility] [address] [place] [address], [address] [place] [address] from Last 3 Months or Most Recently Relevant to Health [place] [address] Care Teams Science Job Titles Relationship Specialty Start Date End Date Tejas Newell Jr., DO [address] [place] [address] PCP - General Internal Medicine 11/03/16
--- OUTSIDE RECORDS SUMMARY | 2025-03-01 09:56 | XMS_ITS | CCD ---
Author Organization [facility] Care Team Providers Care Assistant Wrestling Coach Name Role Phone MAGED MURDOCK Unavailable Unavailable LINDSEY AGUILAR (PA) Unavailable Unavail able MONICA YAN (QUALITY MANAGER) Unavailable Unavailabl TEAJS Benavidez JR Unavailable Unavail able MAGED MURDOCK [...] VALONE JR, TEJAS L Primary Care Unavailable ST ISIDRO, SAMIAVON Referring Unavailable VALONE JR, TEJAS L [...] Unavailable Tejas Richardson MD Primary Care Provider [phone] MAGED CONTRERAS Attending Unavailable GINA RIDDLE Attending [facility]available [facility] Unavail able Gisell CHONG, Christian Singletary Attending Unavailable [facility] Tejas MORA [facility] Unavail able Gisell CHONG, Christian Singletary Attending Unavailable [facility] Tejas MORA [facility] Unavail able Gisell CHONG, Christian Singletary Attending Unavailable [facility] Tejas Sanders [facility] Unavail able Gisell CHONG, Christian Singletary Attending Unavailable [facility] Unavail able Gisell CHONG, Christian Singletary Attending Unavailable Tejas Richardson JR Primary Care Provider [phone] Shubham Valentino DO Attending Provider Allergies Allergy Classification Reported Allergen(s) Allergy Type Date of Onset Reaction(s) Facility (2 sources) Morphine; Translations: [MORPHINE] Drug Allergy 10-18-2022 [facility] Medications Current Medications Medication Drug Class(es) Dates Sig (Normalized) Sig (Original) acetaminophen 300 mg / codeine phosphate 30 mg oral tablet (1 source) Opioid Agonist Start: 02-18-2025 take 1 tablet by mouth twice daily Acetaminophen-Cod eine 300-30 mg tablet Active TAB PO Twice daily February 18, 2025 12:00am Complies with drug therapy aspirin 81 mg oral tablet (1 source) Platelet Aggregation Inhibitor, Nonsteroidal Anti-inflammatory Drug Start: 02-18-2025 take 1 tablet by mouth once daily Aspirin 81 mg tablet Active 81 MG PO Daily February 18, 2025 12:00am Complies with drug therapy calcium carbonate 1250 mg / cholecalciferol 200 [...] DULoxetine 60 mg delayed release oral capsule (4 sources) Serotonin and Norepinephrine Reuptake Inhibitor Start: 03-15-2024 take 1 capsule by mouth once daily Duloxetine (Cymbalta) 60 mg capsule,delayed release(DR/EC) Active 60 MG PO Daily March 15, 2024 12:00am Complies with drug therapy ezetimibe 10 mg oral tablet (1 source) Dietary Cholesterol Absorption Inhibitor Start: 02-18-2025 take 1 tablet by mouth once daily Ezetimibe 10 mg tablet Active 10 MG PO Daily February 18, 2025 12:00am Complies with drug therapy gabapentin enacarbil 600 mg extended release oral tablet (3 sources) Anti-epileptic Agent take 1 tablet by mouth in the morning gabapentin enacarbil (Horizant) 600 MG tablet controlled-releas e ER tablet Take 600 mg by mouth in the morning. Active ibuprofen 800 mg oral tablet (4 sources) Nonsteroidal Anti-inflammatory Drug Start: 03-15-2024 take 1 tablet by mouth every eight hours Ibuprofen 800 mg tablet Active 800 MG PO Every 8 hours March 15, 2024 12:00am Complies with drug therapy linaclotide 0.145 mg oral capsule (3 sources) Guanylate Cyclase-C Agonist linaCLOtide (Linzess) 145 MCG capsule Active Multiple Vitamins-Minerals (MULTIVITAMIN ADULTS PO) (3 sources) take 1 tablet by mouth in the morning Multiple Vitamins-Minerals (MULTIVITAMIN ADULTS PO) Take 1 tablet by mouth in the morning. Active Multivitamin preparation (1 source) Start: 03-15-2024 multivitamin (Daily Multi-Vitamin) Active PO March 15, 2024 12:00am Complies with drug therapy rosuvastatin calcium 5 mg oral tablet (4 sources) HMG-CoA Reductase Inhibitor Start: 03-15-2024 take 1 tablet by mouth once daily rosuvastatin (Crestor) 5 MG tablet Take 5 mg by mouth Daily 05/13/2024 Active tiZANidine 4 mg oral tablet (1 source) Central alpha-2 Adrenergic Agonist Start: 02-18-2025 take 1 mg by mouth once daily at bedtime Tizanidine 4 mg tablet Active MG PO Daily at bedtime February 18, 2025 12:00am Complies with drug therapy Completed/Discontinued Medications Medication Drug Class(es) Dates Sig (Normalized) Sig (Original) Calcium Carbonate (1 source) Start: 03-15-2024 End: 02-18-2025 calcium carbonate (Calcium 600) Discontinued PO March 15, 2024 12:00am February 18, 2025 10:36am metroNIDAZOLE 500 mg oral tablet (1 source) Nitroimidazole Antimicrobial Start: 03-15-2024 End: 05-03-2024 take 1 tablet by mouth twice daily Metronidazole 500 mg tablet Discontinued 500 MG PO Twice daily March 15, 2024 12:00am May 03, 2024 2:25pm Potassium Chloride (1 source) Start: 03-15-2024 End: 02-18-2025 potassium chloride Discontinued PO March 15, 2024 12:00am February 18, 2025 10:36am Problems Active Problems Problem Classification Problem Date Documented Date Episodic/Chronic Complication of device; implant or graft (6 sources) Breakdown (mechanical) of other specified internal prosthetic devices, implants and grafts, initial encounter; Translations: [Infection and inflammatory reaction due to other nervous system device, implant or graft, initial encounter] Onset: 03-18-2020 03-15-2024 Episodic Headache; including migraine (3 sources) Refractory [...] Rhabdomyolysis; Translations: [RHABDOMYOLYSIS] Onset: 03-18-2020 Episodic Other connective tissue disease (2 sources) Trochanteric bursitis; Translations: [Trochanteric bursitis, right hip] 02-18-2025 Episodic Other ear and sense organ disorders [...] Spondylosis; intervertebral disc disorders; other back problems (20 sources) Radiculopathy, cervical region; Translations: [Radiculopathy, lumbar region] Onset: 12-01-2015 Resolved: 06-26-2024 06-26-2024 Episodic Substance-related disorders (1 source) Nicotine dependence, [...] region] Onset: 05-04-2017 Resolved: 06-26-2024 06-26-2024 Chronic Results Test Name Value Interpretation Reference Range Facility Auditory function testson Right Ear: Normal he aring Left Ear: Mild to moderate hearing loss above 4K Hz [facility] COMPLETE BLOOD COUNTon 04-24 Erythrocyte distribution width (RBC) [Ratio] 16.6 % High 11.5-15.0 [facility] Comment on above: Performed By: #### C KJ, PLYWOOD SCARFER TENDER #### [facility] ([id number]) [address] [address] Hematocrit (Bld) [Volume fraction] 40.9 % Normal 35-47 [facility] Comment on above: Performed By: #### C KJ, PLYWOOD SCARFER TENDER #### [facility] ([id number]) [address] [address] [place] [address] Hemoglobin (Bld) [Mass/Vol] 13.5 g/dL Normal 11.7-15.5 [facility] Comment on above: Performed By: #### C KJ, PLYWOOD SCARFER TENDER #### [facility] ([id number]) [address] [facility] [address] [place] [address] MCH (RBC) [Entitic mass] 32.0 pg Normal 27-34 [facility] Comment on above: Performed By: #### C KJ, PLYWOOD SCARFER TENDER #### [facility] ([id number]) [address] [address] [place] [address] MCHC (RBC) [Mass/Vol] 33.1 g/dL Normal 32-36 [facility] Comment on above: Performed By: #### C KJ, PLYWOOD SCARFER TENDER #### [facility] ([id number]) [address] [facility] [address] [place] [address] MCV (RBC) [Entitic vol] 97 fL Normal 80-100 [facility] Comment on above: Performed By: #### C KJ, PLYWOOD SCARFER TENDER #### [facility] ([id number]) [address] [address] Platelet mean volume (Bld) [Entitic vol] 8.8 fL Normal 7-12 [facility] Comment on above: Performed By: #### C KJ, PLYWOOD SCARFER TENDER #### [facility] ([id number]) [address] [address] Platelets (Bld) [#/Vol] 328 10*3/uL Normal 150-450 [facility] Comment on above: Performed By: #### C KJ, PLYWOOD SCARFER TENDER #### [facility] ([id number]) [address] [address] RBC COUNT 4.23 X10E12/L Normal 3.80-5.20 [facility] Comment on above: Performed By: #### C KJ, PLYWOOD SCARFER TENDER #### [facility] ([id number]) [address] [address] WBC (Bld) [#/Vol] 9.0 10*3/uL Normal 4.0-11.0 [facility] Comment on above: Performed By: #### Jacqueline UNDERWOOD, PLYWOOD SCARFER TENDER #### [facility] ([id number]) [address] [address] CREATININEon 04-24-2024 Creatinine [Mass/Vol] 0.72 mg/dL Normal 0.40-1.00 [facility] Comment on above: Result Comment: METH OD TRACEABLE TO IDMS STANDARD Performed By: #### C KJ, PLYWOOD SCARFER TENDER #### [facility] ([id number]) [address] [address] eGFR (CKD-EPI) NON-RACE DEPENDENT >90 Normal >59 [facility] Comment on above: Result Comment: Reported eGFR is based on the CKD-EPI 2020 equation that does not use a race coefficient. Performed By: #### C BC, PLYWOOD SCARFER TENDER #### [facility] ([id number]) [address] [place] [address] COMPLETE BLOOD COUNTon 04-11 Erythrocyte distribution width (RBC) [Ratio] 16.9 % High 11.5-15.0 [facility] Comment on above: Performed By: #### C KJ, PLYWOOD SCARFER TENDER #### [facility] ([id number]) [address] [facility] [address] [place] [address] Hematocrit (Bld) [Volume fraction] 41.0 % Normal 35-47 [facility] Comment on above: Performed By: #### C KJ, PLYWOOD SCARFER TENDER #### [facility] ([id number]) [address] [address] [place] [address] Hemoglobin (Bld) [Mass/Vol] 13.8 g/dL Normal 11.7-15.5 [facility] Comment on above: Performed By: #### C KJ, PLYWOOD SCARFER TENDER #### [facility] ([id number]) [address] [place] [address] MCH (RBC) [Entitic mass] 32.3 pg Normal 27-34 [facility] Comment on above: Performed By: #### C KJ, PLYWOOD SCARFER TENDER #### [facility] ([id number]) [address] [place] [address] MCHC (RBC) [Mass/Vol] 33.5 g/dL Normal 32-36 [facility] Comment on above: Performed By: #### C BC, PLYWOOD SCARFER TENDER #### [facility] ([id number]) [address] [address] [place] [address] MCV (RBC) [Entitic vol] 96 fL Normal 80-100 [facility] Comment on above: Performed By: #### C BC, PLYWOOD SCARFER TENDER #### [facility] ([id number]) [address] [address] [place] [address] Platelet mean volume (Bld) [Entitic vol] 9.1 fL Normal 7-12 [facility] Comment on above: Performed By: #### C KJ, PLYWOOD SCARFER TENDER #### [facility] ([id number]) [address] [address] Platelets (Bld) [#/Vol] 291 10*3/uL Normal 150-450 [facility] Comment on above: Performed By: #### C KJ, PLYWOOD SCARFER TENDER #### [facility] ([id number]) [address] [address] [place] [address] RBC COUNT 4.27 X10E12/L Normal 3.80-5.20 [facility] Comment on above: Performed By: #### C KJ, PLYWOOD SCARFER TENDER #### [facility] ([id number]) [address] [address] WBC (Bld) [#/Vol] 8.9 10*3/uL Normal 4.0-11.0 [facility] Comment on above: Performed By: #### C KJ, PLYWOOD SCARFER TENDER #### [facility] ([id number]) [address] [address] CREATININEon 04-11-2024 Creatinine [Mass/Vol] 0.73 mg/dL Normal 0.40-1.00 [facility] Comment on above: Result Comment: METH OD TRACEABLE TO IDMS STANDARD Performed By: #### C KJ, PLYWOOD SCARFER TENDER #### [facility] ([id number]) [address] [address] eGFR (CKD-EPI) NON-RACE DEPENDENT >90 Normal >59 [facility] Comment on above: Result Comment: Reported eGFR is based on the CKD-EPI 2020 equation that does not use a race coefficient. Performed By: #### Jacqueline UNDERWOOD, PLYWOOD SCARFER TENDER #### [facility] ([id number]) [address] [address] [place] [address] ASPIRATE CULTUREon Bacteria identified Aer cx Nom [...] <=1 F PIPERACIL/TAZOBACTAM S <=4 F Susceptible [facility] Comment on above: Performed By: #### 5 97-5 #### [facility] ([id number]) [address] [address] COMPLETE BLOOD COUNTon 04-04 Erythrocyte distribution width (RBC) [Ratio] 16.6 % High 11.5-15.0 [facility] Comment on above: Performed By: #### Jacqueline ARAUJO CMP, 1987-09, 76223-6 #### [facility] ([id number]) [address] [address] [place] [address] Hematocrit (Bld) [Volume fraction] 37.5 % Normal 35-47 [facility] Comment on above: Performed By: #### Jacqueline ARAUJO CMP, 1987-09, 56219-6 #### [facility] ([id number]) [address] [address] [place] [address] Hemoglobin (Bld) [Mass/Vol] 12.7 g/dL Normal 11.7-15.5 [facility] Comment on above: Performed By: #### Jacqueline ARAUJO CMP, 1987-09, 77014-9 #### [facility] ([id number]) [address] [address] [place] [address] MCH (RBC) [Entitic mass] 31.6 pg Normal 27-34 [facility] Comment on above: Performed By: #### Jacqueline ARAUJO CMP, 1987-09, 22623-7 #### [facility] ([id number]) [address] [place] [address] MCHC (RBC) [Mass/Vol] 33.8 g/dL Normal 32-36 [facility] Comment on above: Performed By: #### Jacqueline ARAUJO [facility], 1987-09, 61389-3 #### [facility] ([id number]) [address] [facility] [address] [place] [address] MCV (RBC) [Entitic vol] 94 fL Normal 80-100 [facility] Comment on above: Performed By: #### Jacqueline ARAUJO CMP, 1987-09, 21572-9 #### [facility] ([id number]) [address] [place] [address] Platelet mean volume (Bld) [Entitic vol] 8.9 fL Normal 7-12 [facility] Comment on above: Performed By: #### Jacqueline ARAUJO [facility], 1987-09, 74391-4 #### [facility] ([id number]) [address] [place] [address] Platelets (Bld) [#/Vol] 230 10*3/uL Normal 150-450 [facility] Comment on above: Performed By: #### Jacqueline ARAUJO CMP, 1987-09, 38442-5 #### [facility] ([id number]) [address] [facility] [address] [place] [address] RBC COUNT 4.01 X10E12/L Normal 3.80-5.20 [facility] Comment on above: Performed By: #### Jacqueline ARAUJO CMP, 1987-09, 09831-7 #### [facility] ([id number]) [address] [place] [address] WBC (Bld) [#/Vol] 9.1 10*3/uL Normal 4.0-11.0 [facility] Comment on above: Performed By: #### Jacqueline ARAUJO CMP, 1987-09, 76246-6 #### [facility] ([id number]) [address] [place] [address] CREATININEon 04-04-2024 Creatinine [Mass/Vol] 0.60 mg/dL Normal 0.40-1.00 [facility] Comment on above: Result Comment: METH OD TRACEABLE TO IDMS STANDARD Performed By: #### Jacqueline ARUAJO CMP, 1987-09, 34939-2 #### [facility] ([id number]) [address] [address] eGFR (CKD-EPI) NON-RACE DEPENDENT >90 Normal >59 [facility] Comment on above: Result Comment: Reported eGFR is based on the CKD-EPI 2020 equation that does not use a race coefficient. Performed By: #### Jacqueline ARAUJO CMP, 1987-09, 08615-0 #### [facility] ([id number]) [address] [address] COMPLETE BLOOD COUNTon 03-27 Erythrocyte distribution width (RBC) [Ratio] 17.2 % High 11.5-15.0 [facility] Comment on above: Performed By: #### Jacqueline ARAUJO CMP, 56621-5 #### [facility] ([id number]) [address] [address] Hematocrit (Bld) [Volume fraction] 40.0 % Normal 35-47 [facility] Comment on above: Performed By: #### Jacqueline ARAUJO CMP, 1987-09, 02493-0 #### [facility] ([id number]) [address] [address] Hemoglobin (Bld) [Mass/Vol] 13.5 g/dL Normal 11.7-15.5 [facility] Comment on above: Performed By: #### Jacqueline ARAUJO CMP, 1987-09, 44922-4 #### [facility] ([id number]) [address] [place] [address] MCH (RBC) [Entitic mass] 31.7 pg Normal 27-34 [facility] Comment on above: Performed By: #### Jacqueline ARAUJO CMP, 1987-09, 36481-0 #### [facility] ([id number]) [address] [place] [address] MCHC (RBC) [Mass/Vol] 33.7 g/dL Normal 32-36 [facility] Comment on above: Performed By: #### Jacqueline ARAUJO CMP, 1987-09, 30786-9 #### [facility] ([id number]) [address] [place] [address] MCV (RBC) [Entitic vol] 94 fL Normal 80-100 [facility] Comment on above: Performed By: #### Jacqueline ARAUJO CMP, 1987-09, 41748-4 #### [facility] ([id number]) [address] [place] [address] Platelet mean volume (Bld) [Entitic vol] 8.5 fL Normal 7-12 [facility] Comment on above: Performed By: #### Jacqueline ARAUJO CMP, 1987-09, 90290-1 #### [facility] ([id number]) [address] [place] [address] Platelets (Bld) [#/Vol] 332 10*3/uL Normal 150-450 [facility] Comment on above: Performed By: #### Jacqueline ARAUJO CMP, 1987-09, 21943-7 #### [facility] ([id number]) [address] [place] [address] RBC COUNT 4.26 X10E12/L Normal 3.80-5.20 [facility] Comment on above: Performed By: #### C VAN [facility], 1987-09, 87164-7 #### [facility] ([id number]) [address] [address] [place] [address] WBC (Bld) [#/Vol] 10.4 10*3/uL Normal 4.0-11.0 [facility] Comment on above: Performed By: #### C VAN [facility], 1987-09, 79188-5 #### [facility] ([id number]) [address] [address] CREATININEon 03-27-2024 Creatinine [Mass/Vol] 0.69 mg/dL Normal 0.40-1.00 [facility] Comment on above: Result Comment: METH OD TRACEABLE TO IDMS STANDARD Performed By: #### C [facility]AN [facility], 1987-09, 13831-9 #### [facility] ([id number]) [address] [address] eGFR (CKD-EPI) NON-RACE DEPENDENT >90 Normal >59 [facility] Comment on above: Result Comment: Reported eGFR is based on the CKD-EPI 2020 equation that does not use a race coefficient. Performed By: #### C [facility], 1987-09, 77712-8 #### [facility] ([id number]) [address] [address] COMPLETE BLOOD COUNTon 03-20 Erythrocyte distribution width (RBC) [Ratio] 19.0 % High 11.5-15.0 [facility] Comment on above: Performed By: #### C BC, PLYWOOD SCARFER TENDER #### [facility] ([id number]) [address] [address] [place] [address] Hematocrit (Bld) [Volume fraction] 37.9 % Normal 35-47 [facility] Comment on above: Performed By: #### C BC, PLYWOOD SCARFER TENDER #### [facility] ([id number]) [address] [place] [address] Hemoglobin (Bld) [Mass/Vol] 12.6 g/dL Normal 11.7-15.5 [facility] Comment on above: Performed By: #### C KJ, PLYWOOD SCARFER TENDER #### [facility] ([id number]) [address] [place] [address] MCH (RBC) [Entitic mass] 31.8 pg Normal 27-34 [facility] Comment on above: Performed By: #### C KJ, PLYWOOD SCARFER TENDER #### [facility] ([id number]) [address] [place] [address] MCHC (RBC) [Mass/Vol] 33.2 g/dL Normal 32-36 [facility] Comment on above: Performed By: #### Jacqueline UNDERWOOD, PLYWOOD SCARFER TENDER #### [facility] ([id number]) [address] [place] [address] MCV (RBC) [Entitic vol] 96 fL Normal 80-100 [facility] Comment on above: Performed By: #### C KJ, PLYWOOD SCARFER TENDER #### [facility] ([id number]) [address] [place] [address] Platelet mean volume (Bld) [Entitic vol] 8.4 fL Normal 7-12 [facility] Comment on above: Performed By: #### C KJ, PLYWOOD SCARFER TENDER #### [facility] ([id number]) [address] [place] [address] Platelets (Bld) [#/Vol] 343 10*3/uL Normal 150-450 [facility] Comment on above: Performed By: #### Jacqueline UNDERWOOD, PLYWOOD SCARFER TENDER #### [facility] ([id number]) [address] [place] [address] RBC COUNT 3.95 X10E12/L Normal 3.80-5.20 [facility] Comment on above: Performed By: #### C KJ, PLYWOOD SCARFER TENDER #### [facility] ([id number]) [address] [address] WBC (Bld) [#/Vol] 7.6 10*3/uL Normal 4.0-11.0 [facility] Comment on above: Performed By: #### C KJ, PLYWOOD SCARFER TENDER #### [facility] ([id number]) [address] [address] CREATININEon 03-20-2024 Creatinine [Mass/Vol] 0.70 mg/dL Normal 0.40-1.00 [facility] Comment on above: Result Comment: METH OD TRACEABLE TO IDMS STANDARD Performed By: #### C KJ, PLYWOOD SCARFER TENDER #### [facility] ([id number]) [address] [address] eGFR (CKD-EPI) NON-RACE DEPENDENT >90 Normal >59 [facility] Comment on above: Result Comment: Reported eGFR is based on the CKD-EPI 2020 equation that does not use a race coefficient. Performed By: #### Jacqueline UNDERWOOD, PLYWOOD SCARFER TENDER #### [facility] ([id number]) [address] [address] CBC AND AUTO DIFFon 03-16-20 24 ABSOLUTE BASOPHIL 0.0 X10E9/L Normal 0.0-0.2 [facility] Comment on above: Performed By: #### C VAN CMP, 1987-09 #### [facility] ([id number]) [address] [address] ABSOLUTE NEUTROPHIL 5.5 X10E9/L Normal 1.5-6.6 [facility] Comment on above: Performed By: #### C BCA CMP, 1987-09 #### [facility] ([id number]) [address] [address] Basophils/100 WBC (Bld) 0.4 % Normal [facility] Comment on above: Performed By: #### Jacqueline ARAUJO CMP, 1987-09 #### [facility] ([id number]) [address] [facility] [address] [place] [address] Eosinophils (Bld) [#/Vol] 0.1 10*3/uL Normal 0.0-0.4 [facility] Comment on above: Performed By: #### Jacqueline ARAUJO CMP, 1987-09 #### [facility] ([id number]) [address] [facility] [address] [place] [address] Eosinophils/100 WBC (Bld) 1.9 % Normal [facility] Comment on above: Performed By: #### Jacqueline ARAUJO CMP, 1987-09 #### [facility] ([id number]) [address] [address] [place] [address] Erythrocyte distribution width (RBC) [Ratio] 18.1 % High 11.5-15.0 [facility] Comment on above: Performed By: #### Jacqueline ARAUJO CMP, 1987-09 #### [facility] ([id number]) [address] [address] [place] [address] Hematocrit (Bld) [Volume fraction] 39.2 % Normal 35-47 [facility] Comment on above: Performed By: #### Jacqueline ARAUJO CMP, 1987-09 #### [facility] ([id number]) [address] [facility] [address] [place] [address] Hemoglobin (Bld) [Mass/Vol] 13.4 g/dL Normal 11.7-15.5 [facility] Comment on above: Performed By: #### Jacqueline ARAUJO CMP, 1987-09 #### [facility] ([id number]) [address] [facility] [address] [place] [address] Lymphocytes (Bld) [#/Vol] 1.7 10*3/uL Normal 1.0-3.5 [facility] Comment on above: Performed By: #### Jacqueline ARAUJO [facility], 1987-09 #### [facility] ([id number]) [address] [place] [address] Lymphocytes/100 WBC (Bld) 22.1 % Normal [facility] Comment on above: Performed By: #### Jacqueline ARAUJO CMP, 1987-09 #### [facility] ([id number]) [address] [place] [address] MCH (RBC) [Entitic mass] 32.2 pg Normal 27-34 [facility] Comment on above: Performed By: #### Jacqueline ARAUJO CMP, 1987-09 #### [facility] ([id number]) [address] [place] [address] MCHC (RBC) [Mass/Vol] 34.2 g/dL Normal 32-36 [facility] Comment on above: Performed By: #### Jacqueline ARAUJO CMP, 1987-09 #### [facility] ([id number]) [address] [place] [address] MCV (RBC) [Entitic vol] 94 fL Normal 80-100 [facility] Comment on above: Performed By: #### Jacqueline ARAUJO CMP, 1987-09 #### [facility] ([id number]) [address] [place] [address] Monocytes (Bld) [#/Vol] 0.5 10*3/uL Normal 0-0.9 [facility] Comment on above: Performed By: #### Jacqueline ARAUJO CMP, 1987-09 #### [facility] ([id number]) [address] [place] [address] Monocytes/100 WBC (Bld) 6.5 % Normal [facility] Comment on above: Performed By: #### Jacqueline ARAUJO CMP, 1987-09 #### [facility] ([id number]) [address] [address] [place] [address] Neutrophils/100 WBC (Bld) 69.1 % Normal [facility] Comment on above: Performed By: #### Jacqueline ARAUJO CMP, 1987-09 #### [facility] ([id number]) [address] [address] [place] [address] Platelet mean volume (Bld) [Entitic vol] 8.1 fL Normal 7-12 [facility] Comment on above: Performed By: #### Jacqueline ARAUJO CMP, 1987-09 #### [facility] ([id number]) [address] [address] [place] [address] Platelets (Bld) [#/Vol] 358 10*3/uL Normal 150-450 [facility] Comment on above: Performed By: #### Jacqueline ARAUJO CMP, 1987-09 #### [facility] ([id number]) [address] [address] [place] [address] RBC COUNT 4.17 X10E12/L Normal 3.80-5.20 [facility] Comment on above: Performed By: #### Jacqueline ARAUJO CMP, 1987-09 #### [facility] ([id number]) [address] [address] [place] [address] WBC (Bld) [#/Vol] 7.9 10*3/uL Normal 4.0-11.0 [facility] Comment on above: Performed By: #### Jacqueline ARAUJO CMP, 1987-09 #### [facility] ([id number]) [address] [address] [place] [address] COMPREHENSIVE METABOLIC PANE Alexandru 03-16-2024 Albumin [Mass/Vol] 3.4 g/dL Normal 3.2-5.3 [facility] Comment on above: Performed By: #### Jacqueline ARAUJO CMP, 1987-09 #### [facility] ([id number]) [address] [place] [address] ALP [Catalytic activity/Vol] 52 U/L Normal 39-130 [facility] Comment on above: Performed By: #### Jacqueline ARAUJO [facility], 1987-09 #### [facility] ([id number]) [address] [place] [address] ALT [Catalytic activity/Vol] 12 U/L Normal 0-31 [facility] Comment on above: Performed By: #### Jacqueline ARAUJO [facility], 1987-09 #### [facility] ([id number]) [address] [place] [address] Anion gap [Moles/Vol] 11 mmol/L Normal 5-15 [facility] Comment on above: Performed By: #### Jacqueline ARAUJO CMP, 1987-09 #### [facility] ([id number]) [address] [place] [address] AST [Catalytic activity/Vol] 17 U/L Normal 0-41 [facility] Comment on above: Performed By: #### Jacqueline ARAUJO [facility], 1987-09 #### [facility] ([id number]) [address] [place] [address] Bilirubin [Mass/Vol] 0.4 mg/dL Normal 0.3-1.2 [facility] Comment on above: Performed By: #### Jacqueline ARAUJO CMP, 1987-09 #### [facility] ([id number]) [address] [place] [address] Calcium [Mass/Vol] 9.7 mg/dL Normal 8.5-10.5 [facility] Comment on above: Performed By: #### Jacqueline ARAUJO CMP, 1987-09 #### [facility] ([id number]) [address] [place] [address] Chloride [Moles/Vol] 109 mmol/L Normal 98-109 [facility] Comment on above: Performed By: #### C ARANZA ARAUJO, 1987-09 #### [facility] ([id number]) [address] [place] [address] CO2 [Moles/Vol] 20 mmol/L Low 22-32 [facility] Comment on above: Performed By: #### C ARANZA ARAUJO, 1987-09 #### [facility] ([id number]) [address] [place] [address] Creatinine [Mass/Vol] 0.75 mg/dL Normal 0.40-1.00 [facility] Comment on above: Result Comment: METH OD TRACEABLE TO IDMS STANDARD Performed By: #### C ARANZA ARAUJO, 1987-09 #### [facility] ([id number]) [address] [place] [address] eGFR (CKD-EPI) NON-RACE DEPENDENT >90 Normal >59 [facility] Comment on above: Result Comment: Reported eGFR is based on the CKD-EPI 2020 equation that does not use a race coefficient. Performed By: #### C ARANZA ARAUJO, 1987-09 #### [facility] ([id number]) [address] [place] [address] Glucose [Mass/Vol] 88 mg/dL Normal 65-99 [facility] Comment on above: Performed By: #### C ARANZA ARAUJO, 1987-09 #### [facility] ([id number]) [address] [place] [address] Potassium [Moles/Vol] 3.9 mmol/L Normal 3.5-5.0 [facility] Comment on above: Performed By: #### C ARANZA ARAUJO, 1987-09 #### [facility] ([id number]) [address] [place] [address] Protein [Mass/Vol] 6.4 g/dL Normal 6.0-8.0 [facility] Comment on above: Performed By: #### C BCA, CMP, 1987-09 #### [facility] ([id number]) [address] [place] [address] Sodium [Moles/Vol] 140 mmol/L Normal 134-146 [facility] Comment on above: Performed By: #### Jacqueline ARAUJO CMP, 1987-09 #### [facility] ([id number]) [address] [place] [address] Urea nitrogen [Mass/Vol] 9 mg/dL Normal 5-23 [facility] Comment on above: Performed By: #### Jacqueline ARAUJO CMP, 1987-09 #### [facility] ([id number]) [address] [place] [address] CRP [Mass/Vol]on 03-16-2024 C REACTIVE PROTEIN 0.6 mg/dL Normal 0.000-0.744 [facility] Comment on above: Performed By: #### Jacqueline ARAUJO [facility], 1987-09 #### [facility] ([id number]) [address] [place] [address] BLOOD CULTUREon 03-13-2024 Bacteria identified Aer cx Nom (Bld) CULTURE RESULTS NO GROWTH 5 DAYS Normal [facility] Bacteria identified Aer cx Nom (Bld) CULTURE RESULTS NO GROWTH 5 DAYS Normal [facility] CBC AND AUTO DIFFon 03-13-20 24 ABSOLUTE BASOPHIL 0.0 X10E9/L Normal 0.0-0.2 [facility] Comment on above: Performed By: #### Jacqueline ARAUJO CMP, 1987-09, 84741-4 #### [facility] ([id number]) [address] [place] [address] ABSOLUTE NEUTROPHIL 5.4 X10E9/L Normal 1.5-6.6 [facility] Comment on above: Performed By: #### Jacqueline ARAUJO CMP, 1987-09, 03942-9 #### [facility] ([id number]) [address] [place] [address] Basophils/100 WBC (Bld) 0.4 % Normal [facility] Comment on above: Performed By: #### Jacqueline ARAUJO [facility], 1987-09, 15821-9 #### [facility] ([id number]) [address] [place] [address] Eosinophils (Bld) [#/Vol] 0.1 10*3/uL Normal 0.0-0.4 [facility] Comment on above: Performed By: #### Jacqueline ARAUJO [facility], 1987-09, 24510-4 #### [facility] ([id number]) [address] [place] [address] Eosinophils/100 WBC (Bld) 1.6 % Normal [facility] Comment on above: Performed By: #### Jacqueline ARAUJO [facility], 1987-09, 57373-8 #### [facility] ([id number]) [address] [address] [place] [address] Erythrocyte distribution width (RBC) [Ratio] 18.4 % High 11.5-15.0 [facility] Comment on above: Performed By: #### Jacqueline ARAUJO CMP, 1987-09, 49352-7 #### [facility] ([id number]) [address] [facility] [address] [place] [address] Hematocrit (Bld) [Volume fraction] 39.0 % Normal 35-47 [facility] Comment on above: Performed By: #### Jacqueline ARAUJO [facility], 48182-8 #### [facility] ([id number]) [address] [place] [address] Hemoglobin (Bld) [Mass/Vol] 13.7 g/dL Normal 11.7-15.5 [facility] Comment on above: Performed By: #### Jacqueline ARAUJO CMP, 53287-0 #### [facility] ([id number]) [address] [place] [address] Lymphocytes (Bld) [#/Vol] 1.9 10*3/uL Normal 1.0-3.5 [facility] Comment on above: Performed By: #### Jacqueline ARAUJO [facility], 1987-09, 65866-4 #### [facility] ([id number]) [address] [place] [address] Lymphocytes/100 WBC (Bld) 24.0 % Normal [facility] Comment on above: Performed By: #### Jacqueline ARAUJO [facility], 1987-09, 60934-9 #### [facility] ([id number]) [address] [place] [address] MCH (RBC) [Entitic mass] 32.5 pg Normal 27-34 [facility] Comment on above: Performed By: #### Jacqueline ARAUJO [facility], 1987-09, 51764-2 #### [facility] ([id number]) [address] [place] [address] MCHC (RBC) [Mass/Vol] 35.0 g/dL Normal 32-36 [facility] Comment on above: Performed By: #### Jacqueline ARAUJO [facility], 1987-09, 93298-9 #### [facility] ([id number]) [address] [place] [address] MCV (RBC) [Entitic vol] 93 fL Normal 80-100 [facility] Comment on above: Performed By: #### Jacqueline ARAUJO [facility], 1987-09, 58735-8 #### [facility] ([id number]) [address] [place] [address] Monocytes (Bld) [#/Vol] 0.4 10*3/uL Normal 0-0.9 [facility] Comment on above: Performed By: #### Jacqueline ARAUJO [facility], 1987-09, 99305-8 #### [facility] ([id number]) [address] [place] [address] Monocytes/100 WBC (Bld) 4.7 % Normal [facility] Comment on above: Performed By: #### [facility], 1987-09, 07179-1 #### [facility] ([id number]) [address] [place] [address] Neutrophils/100 WBC (Bld) 69.3 % Normal [facility] Comment on above: Performed By: #### Jacqueline ARAUJO [facility], 1987-09, 05505-6 #### [facility] ([id number]) [address] [place] [address] Platelet mean volume (Bld) [Entitic vol] 7.9 fL Normal 7-12 [facility] Comment on above: Performed By: #### Jacqueline ARAUJO [facility], 1987-09, 22664-2 #### [facility] ([id number]) [address] [place] [address] Platelets (Bld) [#/Vol] 376 10*3/uL Normal 150-450 [facility] Comment on above: Performed By: #### Jacqueline ARAUJO [facility], 1987-09, 55628-3 #### [facility] ([id number]) [address] [place] [address] RBC COUNT 4.20 X10E12/L Normal 3.80-5.20 [facility] Comment on above: Performed By: #### Jacqueline ARAUJO [facility], 1987-09, 13097-3 #### [facility] ([id number]) [address] [place] [address] WBC (Bld) [#/Vol] 7.8 10*3/uL Normal 4.0-11.0 [facility] Comment on above: Performed By: #### [facility], 1987-09, 96357-8 #### [facility] ([id number]) [address] [place] [address] COMPREHENSIVE METABOLIC PANE Alexandru 03-13-2024 Albumin [Mass/Vol] 3.4 g/dL Normal 3.2-5.3 [facility] Comment on above: Performed By: #### [facility], 1987-09, 75923-3 #### [facility] ([id number]) [address] [place] [address] ALP [Catalytic activity/Vol] 57 U/L Normal 39-130 [facility] Comment on above: Performed By: #### [facility], 1987-09, 84296-9 #### [facility] ([id number]) [address] [place] [address] ALT [Catalytic activity/Vol] 14 U/L Normal 0-31 [facility] Comment on above: Performed By: #### [facility], 1987-09, 89698-8 #### [facility] ([id number]) [address] [place] [address] Anion gap [Moles/Vol] 8 mmol/L Normal 5-15 [facility] Comment on above: Performed By: #### [facility], 1987-09, 20230-4 #### [facility] ([id number]) [address] [place] [address] AST [Catalytic activity/Vol] 19 U/L Normal 0-41 [facility] Comment on above: Performed By: #### [facility], 1987-09, 82747-8 #### [facility] ([id number]) [address] [place] [address] Bilirubin [Mass/Vol] 0.4 mg/dL Normal 0.3-1.2 [facility] Comment on above: Performed By: #### [facility], 1987-09, 14430-9 #### [facility] ([id number]) [address] [place] [address] Calcium [Mass/Vol] 9.3 mg/dL Normal 8.5-10.5 [facility] Comment on above: Performed By: #### [facility], 1987-09, 20552-8 #### [facility] ([id number]) [address] [place] [address] Chloride [Moles/Vol] 105 mmol/L Normal 98-109 [facility] Comment on above: Performed By: #### [facility], 1987-09, 58601-5 #### [facility] ([id number]) [address] [place] [address] CO2 [Moles/Vol] 28 mmol/L Normal 22-32 [facility] Comment on above: Performed By: #### [facility], 10718-1 #### [facility] ([id number]) [address] [place] [address] Creatinine [Mass/Vol] 0.82 mg/dL Normal 0.40-1.00 [facility] Comment on above: Result Comment: METH OD TRACEABLE TO IDMS STANDARD Performed By: #### [facility], 1987-09, 47056-9 #### [facility] ([id number]) [address] [place] [address] GFR/1.73 sq M.predicted among non-blacks MDRD (S/P/Bld) [Vol rate/Area] 84 mL/min/{1.73_m2} Normal >59 [facility] Comment on above: Result Comment: Reported eGFR is based on the CKD-EPI 2020 equation that does not use a race coefficient. Performed By: #### C ARANZA ARAUJO, 46306-4 #### [facility] ([id number]) [address] [place] [address] Glucose [Mass/Vol] 97 mg/dL Normal 65-99 [facility] Comment on above: Performed By: #### [facility], 1987-09, 03510-3 #### [facility] ([id number]) [address] [place] [address] Potassium [Moles/Vol] 3.1 mmol/L Low 3.5-5.0 [facility] Comment on above: Performed By: #### [facility], 44518-8 #### [facility] ([id number]) [address] [place] [address] Protein [Mass/Vol] 6.3 g/dL Normal 6.0-8.0 [facility] Comment on above: Performed By: #### [facility], 59991-3 #### [facility] ([id number]) [address] [place] [address] Sodium [Moles/Vol] 141 mmol/L Normal 134-146 [facility] Comment on above: Performed By: #### Jacqueline ARAUJO [facility], 32373-8 #### [facility] ([id number]) [address] [place] [address] Urea nitrogen [Mass/Vol] 8 mg/dL Normal 5-23 [facility] Comment on above: Performed By: #### [facility], 35071-1 #### [facility] ([id number]) [address] [place] [address] CRP [Mass/Vol]on 03-13-2024 C REACTIVE PROTEIN 0.7 mg/dL Normal 0.000-0.744 [facility] Comment on above: Performed By: #### C ARANZA ARAUJO, 1987-09, 10075-9 #### [facility] ([id number]) [address] [place] [address] ESR Photometric method (Bld) [Velocity]on 03-13-2024 ESR, ERYTHROCYTE SEDIMENTATION RATE 39 mm/h High 0-30 [facility] Comment on above: Performed By: #### C ARANZA ARAUJO, 1987-09, 44761-7 #### [facility] ([id number]) [address] [place] [address] ASPIRATE CULTUREon Bacteria identified Aer cx Nom [...] <=1 F PIPERACIL/TAZOBACTAM S <=4 F Susceptible [facility] Comment on above: Performed By: #### 5 97-5 #### [facility] ([id number]) [address] [place] [address] AND DIFFon 2023 BODY FLUID COMMENT Interpreta tion--- ----- Normal [facility] Comment on above: Result Comment: Refe rence values for this fluid type are undefined, as fluid accumulation is considered abnormal. Performed By: #### B FCT #### [facility] ([id number]) [address] [place] [address] FLUID CLARITY CLOUDY Normal [facility] Comment on above: Performed By: #### B FCT #### [facility] ([id number]) [address] [place] [address] FLUID COLOR HONG Normal [facility] Comment on above: Performed By: #### B FCT #### [facility] ([id number]) [address] [place] [address] FLUID LYMPHOCYTE 5 % Normal [facility] Comment on above: Performed By: #### B FCT #### [facility] ([id number]) [address] [place] [address] FLUID NEUTROPHILS 75 % Normal [facility] Comment on above: Performed By: #### B FCT #### [facility] ([id number]) [address] [place] [address] [place] [address] /uL Normal [facility] Comment on above: Performed By: #### B FCT #### [facility] ([id number]) [address] [place] [address] FLUID SPECIMEN TYPE ASPIRATE Normal [facility] Comment on above: Result Comment: ABDO MISAEL PUMP POCKET Performed By: #### B FCT #### [facility] ([id number]) [address] [place] [address] MACROPHAGES 20 % Normal [facility] Comment on above: Performed By: #### B FCT #### [facility] ([id number]) [address] [place] [address] 4888 /uL Normal [facility] Comment on above: Performed By: #### B FCT #### [facility] ([id number]) [address] [place] [address] ELECTROLYTESon 08-22-2023 Anion gap [Moles/Vol] 8 mmol/L Normal 5-15 [facility] Comment on above: Performed By: #### E LEC #### [facility] ([id number]) [address] [place] [address] Chloride [Moles/Vol] 110 mmol/L High 98-109 [facility] Comment on above: Performed By: #### E LEC #### [facility] ([id number]) [address] [place] [address] CO2 [Moles/Vol] 23 mmol/L Normal 22-32 [facility] Comment on above: Performed By: #### E LEC #### [facility] ([id number]) [address] [place] [address] Potassium [Moles/Vol] 4.4 mmol/L Normal 3.5-5.0 [facility] Comment on above: Performed By: #### E LEC #### [facility] ([id number]) [address] [place] [address] Sodium [Moles/Vol] 141 mmol/L Normal 134-146 [facility] Comment on above: Performed By: #### E LEC #### [facility] ([id number]) [address] [place] [address] CARDIAC AZAR ADMITon 03-07- 020 CK [Catalytic activity/Vol] 915 U/L Critically high 30-135 [facility] Comment on above: Result Comment: Test repeated. Critical value verified. Performed By: #### D MARIAMARPD #### [facility] [address] [id number] Christian Degroot CK.MB [Mass/Vol] 12.82 ng/mL Critically high <=2.37 [facility] Comment on above: Result Comment: Test repeated. Critical value verified. Performed By: #### D RUGRPD #### [facility] [address] [place], [place] [address] Christian Degroot INR Coag (Bld) [Relative time] SEE BELOW Normal [facility] Comment on above: Result Comment: <0.0 34 ng/ml NEGATIVE 0.034-0.119 INDETERMINATE 0.120 AMI CUT OFF Performed By: #### D RUGRPD #### [facility] [address] [place] [address] Christian Mikayla ÁNGEL 96.0 ng/mL Critically high <=61.5 [facility] Comment on above: Performed By: #### D RUGRPD #### [facility] [address] [place] [address] Christian Mikayla TROP 0.028 ng/mL Normal <=0.034 [facility] Comment on above: Performed By: #### D RUGRPD #### [facility] [address] [place] [address] Christian Mikayla CK [Catalytic activity/Vol] 1282 U/L Critically high 30-135 [facility] Comment on above: Result Comment: Test repeated. Critical value verified. Performed By: #### T ROP, CMP #### [facility] [address] [place] [address] Christian Mikayla CK.MB [Mass/Vol] 24.63 ng/mL Critically high <=2.37 [facility] Comment on above: Result Comment: Test repeated. Critical value verified. Performed By: #### T ROP, CMP #### [facility] [address] [place] [address] Christian Mikayla INR Coag (Bld) [Relative time] SEE BELOW Normal [facility] Comment on above: Result Comment: <0.0 34 ng/ml NEGATIVE 0.034-0.119 INDETERMINATE 0.120 AMI CUT OFF Performed By: #### T ROP, CMP #### [facility] [address] [place] [address] Christian Mikayla ÁNGEL 235.0 ng/mL Critically high <=61.5 [facility] Comment on above: Performed By: #### T ROP, CMP #### [facility] [address] [place] [address] Christian Mikayla TROP 0.033 ng/mL Normal <=0.034 [facility] [facility] Comment on above: Performed By: #### T ROP, CMP #### [facility] [address] [place], [place] [id number] Christian Mikayla CBC AUTO DIFFon 03-07-2020 Basophils (Bld) [#/Vol] 0.0 103/ul Normal 0.0-0.1 [facility] Comment on above: Performed By: #### C BC #### [facility] [address] [place], [place] [id number] Christian Mikayla Basophils/100 WBC (Bld) 0.1 % Critically low 0.2-2.0 [facility] Comment on above: Performed By: #### C BC #### [facility] [address] [place] [address] Christian Mikayla Eosinophils (Bld) [#/Vol] 0.0 103/ul Normal 0.0-0.7 [facility] Comment on above: Performed By: #### C BC #### [facility] [address] [place] [address] Christian Mikayla Eosinophils/100 WBC (Bld) 0.0 % Critically low 0.9-7.0 [facility] Comment on above: Performed By: #### C BC #### [facility] [address] [place], [place] [id number] Christian Mikayla Erythrocyte distribution width (RBC) [Ratio] 13.4 % Normal 11.0-15.0 [facility] Comment on above: Performed By: #### C BC #### [facility] [address] [place], [place] [id number] Christian Mikayla Hematocrit (Bld) [Volume fraction] 35.4 % Critically low 36.0-48.0 [facility] Comment on above: Performed By: #### C BC #### [facility] [address] [place], [place] [id number] Christian Mikayla Hemoglobin (Bld) [Mass/Vol] 11.4 g/dL Critically low 12.0-16.0 [facility] Comment on above: Performed By: #### C BC #### [facility] [address] [place] [address] Christian Mikayla IG # 0.07 10e3/ul Critically high 0.00-0.03 [facility] Comment on above: Performed By: #### C BC #### [facility] [address], [place] [address] Christian Mikayla IG % 0.4 % Normal 0.0-0.5 [facility] Comment on above: Performed By: #### C BC #### [facility] [address], [place] [address] Christian Mikayla Lymphocytes (Bld) [#/Vol] 1.1 103/ul Critically low 1.2-3.8 [facility] Comment on above: Performed By: #### C BC #### [facility] [address] [id number] Christian Mikayla Lymphocytes/100 WBC (Bld) 6.9 % Critically low 20.5-60.0 [facility] Comment on above: Performed By: #### C BC #### [facility] [address] [place], [place] [id number] Christian Mikayla MANUAL DIFF REQ NO Normal [facility] Comment on above: Performed By: #### C BC #### [facility] [address] [place] [address] Christian Mikayla MCH (RBC) [Entitic mass] 32.7 pg Normal 26.7-34.0 [facility] Comment on above: Performed By: #### C BC #### [facility] [address] [place] [address] Christian Mikayla MCHC (RBC) [Mass/Vol] 32.2 g/dL Normal 29.9-35.2 [facility] Comment on above: Performed By: #### C BC #### [facility] [address] [place] [address] Christian Mikayla MCV (RBC) [Entitic vol] 101.4 fL Critically high 81.0-99.0 [facility] Comment on above: Performed By: #### C BC #### [facility] [address] [place] [address] Christian Mikayla Monocytes (Bld) [#/Vol] 1.4 103/ul Critically high 0.3-0.8 [facility] Comment on above: Performed By: #### C BC #### [facility] [address], [place] [address] Christian Mikayla Monocytes/100 WBC (Bld) 8.6 % Normal 1.7-12.0 [facility] Comment on above: Performed By: #### C BC #### [facility] [address] [place], [place] [address] Christian Mikayla Neutrophils (Bld) [#/Vol] 13.4 103/ul Critically high 1.4-6.5 [facility] Comment on above: Performed By: #### C BC #### [facility] [address] [place], [place] [address] Christian Mikayla Neutrophils/100 WBC (Bld) 84.0 % Critically high 43.0-75.0 [facility] Comment on above: Performed By: #### C BC #### [facility] [address] [place] [address] Christianvíctor Santanaen Platelet mean volume (Bld) [Entitic vol] 9.5 fL Normal 9.5-13.5 [facility] Comment on above: Performed By: #### C BC #### [facility] [address] [place] [address] Christian Mikayla Platelets (Bld) [#/Vol] 207 103/ul Normal 150-450 [facility] Comment on above: Performed By: #### C BC #### [facility] [address] [place] [address] Christian Mikayla RBC (Bld) [#/Vol] 3.49 106/ul Critically low 4.20-5.40 [facility] Comment on above: Performed By: #### C BC #### [facility] [address], [place] [address] Christian Mikayla WBC (Bld) [#/Vol] 16.0 103/ul Critically high 4.0-11.0 [facility] Comment on above: Performed By: #### C BC #### [facility] [address] [place], [place] [address] Christian Degroot PROF CHEM 8 (BAS METB)on Anion gap [Moles/Vol] 11.2 mmol/L Normal [facility] Comment on above: Performed By: #### D JUNED #### [facility] [address] [id number] Christian Mikayla Calcium [Mass/Vol] 8.3 mg/dL Critically low 8.4-10.2 [facility] Comment on above: Performed By: #### D RUGRPD #### [facility] [address] [address] Christian Mikayla Chloride [Moles/Vol] 106 mmol/L Normal 98-107 [facility] Comment on above: Performed By: #### D JUNED #### [facility] [address] [place] [address] Christian Mikayla CO2 [Moles/Vol] 24.5 mmol/L Normal 22.0-30.0 [facility] Comment on above: Performed By: #### D RUGLANDYD #### [facility] [address] [place] [address] Christian Mikayla Creatinine [Mass/Vol] 0.53 mg/dL Normal 0.52-1.04 [facility] Comment on above: Performed By: #### D RUGLANDYD #### [facility] [address] [place], [place] [address] Christian Mikayla EGFR-AF BURMESE >60 Normal >=60 [facility] Comment on above: Performed By: #### D JUNED #### [facility] [address] [place] [address] Christian Mikayla EGFR-NON AF BURMESE >60 Normal >=60 [facility] Comment on above: Performed By: #### D RUGRPD #### [facility] [address] [place], [place] [address] Christian Mikayla Glucose [Mass/Vol] 113 mg/dL Critically high 74-106 [facility] Comment on above: Performed By: #### D JUNED #### [facility] [address] [place] [address] Christian Mikayla Potassium [Moles/Vol] 3.7 mmol/L Normal 3.4-5.0 [facility] Comment on above: Performed By: #### D RUGRPD #### [facility] [address] [place], [place] [address] Christian Mikayla Sodium [Moles/Vol] 138 mmol/L Normal 137-145 [facility] Comment on above: Performed By: #### D RUGRPD #### [facility] [address] [place], [place] [address] Christian Mikayla Urea nitrogen [Mass/Vol] 12.0 mg/dL Normal 7.0-17.0 [facility] Comment on above: Performed By: #### D RUGRPD #### [facility] [address] [place] [address] Christian Mikayla Urea nitrogen/Creatinin e [Mass ratio] 22.6 mg/mg Normal [facility] Comment on above: Performed By: #### D RUGRPD #### [facility] [address] [place] [address] Christian Mikayla CBC W MANUAL DIFFon 03-06-20 20 ATYPICAL LYMPH # Normal [facility] Comment on above: Performed By: #### D RUGRPD #### [facility] [address] [place], [place] [address] Christian Mikayla ATYPICAL LYMPH % Normal [facility] Comment on above: Performed By: #### D RUGRPD #### [facility] [address] [place], [place] [address] Christian Mikayla BAND # Normal 0.0-0.3 [facility] Comment on above: Performed By: #### D RUGRPD #### [facility] [address] [place] [address] Christian Mikayla BAND % Normal 0-5 [facility] Comment on above: Performed By: #### D RUGRPD #### [facility] [address] [place], [place] [address] Christian Mikayla BASOM # 0.00 103/ul Normal 0.00-0.10 [facility] Comment on above: Performed By: #### D RUGRPD #### [facility] [address] [place], [place] [address] Christian Mikayla BASOM % 0.0 % Critically low 0.2-2.0 [facility] Comment on above: Performed By: #### D RUGRPD #### [facility] [address] [place] [address] Christian Mikayla BLAST # Normal [facility] Comment on above: Performed By: #### D RUGRPD #### [facility] [address] [place], [place] [address] Christian Mikayla BLAST % Normal [facility] Comment on above: Performed By: #### D RUGRPD #### [facility] [address] [place], [place] [address] Christian Mikayla CORRECTED WBC Normal 4.0-11.0 [facility] Comment on above: Performed By: #### D RUGRPD #### [facility] [address] [place] [address] Christian Mikayla Eosinophils (Bld) [#/Vol] 0.00 103/ul Normal 0.00-0.70 [facility] Comment on above: Performed By: #### D RUGRPD #### [facility] [address] [place], [place] [address] Christian Mikayla Eosinophils/100 WBC (Bld) 0.0 % Critically low 0.9-7.0 [facility] Comment on above: Performed By: #### D RUGRPD #### [facility] [address] [place], [place] [address] Christian Mikayla Erythrocyte distribution width (RBC) [Ratio] 13.2 % Normal 11.0-15.0 [facility] Comment on above: Performed By: #### D RUGRPD #### [facility] [address] [place], [place] [address] Christian Mikayla Hematocrit (Bld) [Volume fraction] 44.1 % Normal 36.0-48.0 [facility] Comment on above: Performed By: #### D RUGRPD #### [facility] [address] [place], [place] [address] Christian Mikayla Hemoglobin (Bld) [Mass/Vol] 13.9 g/dl Normal 12.0-16.0 [facility] Comment on above: Performed By: #### D RUGRPD #### [facility] [address] [place] [address] Christian Mikayla LYMPHM # 0.26 103/ul Critically low 1.20-3.80 [facility] Comment on above: Performed By: #### D RUGRPD #### [facility] [address] [place], [place] [address] Christian Mikayla LYMPHM% 1.0 % Critically low 20.5-60.0 [facility] Comment on above: Performed By: #### D RUGRPD #### [facility] [address] [place], [place] [address] Christian Degroot MCH (RBC) [Entitic mass] 32.6 pg Normal 26.7-34.0 [facility] Comment on above: Performed By: #### Dwayne WATKINSD #### [facility] [address] [place] [address] Christian Degroot MCHC (RBC) [Mass/Vol] 31.5 g/dl Normal 29.9-35.2 [facility] Comment on above: Performed By: #### Dwayne GREGORY #### [facility] [address] [place] [address] Christian Degroot MCV (RBC) [Entitic vol] 103.3 fL Critically high 81.0-99.0 [facility] Comment on above: Performed By: #### Dwayne GREGORY #### [facility] [address] [place] [address] Christian Mikayla METAMYELOCYTE # Normal [facility] Comment on above: Performed By: #### Dwayne RUGRPD #### [facility] [address] [place], [place] [address] Christian Mikayla METAMYELOCYTE % Normal [facility] Comment on above: Performed By: #### Dwayne RUGRPD #### [facility] [address] [place] [address] Christian Mikayla MONOM# 1.32 103/ul Critically high 0.30-0.80 [facility] Comment on above: Performed By: #### Dwayne LESLIERPD #### [facility] [address] [place], [place] [address] Christian Mikayla MONOM% 5.0 % Normal 1.7-12.0 [facility] Comment on above: Performed By: #### D RUGRPD #### [facility] [address] [place] [address] Christian Mikayla MYELOCYTE # Normal [facility] Comment on above: Performed By: #### D RUGRPD #### [facility] [address] [place], [place] [address] Christian Mikayla MYELOCYTE % Normal [facility] Comment on above: Performed By: #### D RUGRPD #### [facility] [address] [place], [place] [address] Christian Mikayla NRBC Normal [facility] Comment on above: Performed By: #### D RUGRPD #### [facility] [address] [place], [place] [address] Christian Mikayla Platelet mean volume (Bld) [Entitic vol] 9.6 fL Normal 9.5-13.5 [facility] Comment on above: Performed By: #### D RUGRPD #### [facility] [address] [place], [place] [address] Christian Mikayla Platelets (Bld) [#/Vol] 268 103/ul Normal 150-450 [facility] Comment on above: Performed By: #### D RUGRPD #### [facility] [address] [place], [place] [address] Christian Mikayla RBC (Bld) [#/Vol] 4.27 106/ul Normal 4.20-5.40 [facility] Comment on above: Performed By: #### D RUGRPD #### [facility] [address] [place], [place] [address] Christian Mikayla SEG # 24.82 103/ul Critically high 1.40-6.50 [facility] Comment on above: Performed By: #### D RUGRPD #### [facility] [address] [place], [place] [address] Christian Mikayla Segmented neutrophils/100 WBC (Bld) 94.0 % Critically high 43.0-75.0 [facility] Comment on above: Performed By: #### D RUGRPD #### [facility] [address] [place], [place] [address] Christian Degroot WBC (Bld) [#/Vol] 26.4 103/ul Critically high 4.0-11.0 [facility] Comment on above: Performed By: #### D RUGRPD #### [facility] [address] [place] [address] Christian Degroot CPKon 03-06-2020 CK [Catalytic activity/Vol] 464 U/L Critically high 30-135 [facility] Comment on above: Result Comment: test repeated critical value verified Performed By: #### C K #### [facility] [address] [place] [address] ABD/PELV W CONon 03-06-20 [...] MAT CASEY Date: 2020-03-06 18:45 Normal [facility] CT STROKE HEAD WOon 03-06-20 20 [...] MAT CASEY Date: 2020-03-06 16:31 Normal [facility] DRUG SCREEN RAPID (URINE)on 03-06-2020 AMP Positive Normal NEGATIVE [facility] Comment on above: Performed By: #### D RUGRPD #### [facility] [address] [place] [address] Christian Mikayla BAR Negative Normal NEGATIVE [facility] Comment on above: Performed By: #### D RUGRPD #### [facility] [address] [address] Christian Mikayla BUP Negative Normal NEGATIVE [facility] Comment on above: Performed By: #### D RUGRPD #### [facility] [address] [address] Christian Mikayla BZO Negative Normal NEGATIVE [facility] Comment on above: Performed By: #### D RUGRPD #### [facility] [address] [place] [address] Christian Mikayla RITCHIE Negative Normal NEGATIVE [facility] Comment on above: Performed By: #### D RUGRPD #### [facility] [address] [place] [address] Christian Mikayla CUT-OFFS SEE BELOW Normal [facility] Comment on above: Result Comment: AMP (Amphetamine): [...] ng/mL Performed By: #### D RUGRPD #### [facility] [address] [place] [address] DRUG CUT HEADER DRUG CLASS TEST SYST EM CUT-OFF CONCENTRATIONS ARE FOLLOWS: Normal [facility] Comment on above: Performed By: #### D RUGRPD #### [facility] [address] [place] [address] Christian Mikayla mAMP Negative Normal NEGATIVE [facility] Comment on above: Performed By: #### D RUGRPD #### [facility] [address] [place] [address] Christian Mikayla MTD Negative Normal NEGATIVE [facility] Comment on above: Performed By: #### D RUGRPD #### [facility] [address] [place] [address] Christian Mikayla OPI Positive Normal NEGATIVE [facility] Comment on above: Performed By: #### D RUGRPD #### [facility] [address] [place] [address] Christian Mikayla OXY Negative Normal NEGATIVE [facility] Comment on above: Performed By: #### D RUGRPD #### [facility] [address] [place] [address] Christian Mikayla PCP Negative Normal NEGATIVE [facility] Comment on above: Performed By: #### D RUGRPD #### [facility] [address] [place] [address] Christian Mikayla PPX Negative Normal NEGATIVE [facility] Comment on above: Performed By: #### D RUGRPD #### [facility] [address] [place] [address] Christian Mikayla TCA Negative Normal NEGATIVE [facility] Comment on above: Performed By: #### D RUGRPD #### [facility] [address] [place] [address] Christian Mikayla THC Negative Normal NEGATIVE [facility] Comment on above: Performed By: #### D RUGRPD #### [facility] [address] [place] [address] Christian Mikayla ER URINE PROFILEon 0 Bilirubin [Mass/Vol] Negative Normal NEGATIVE [facility] Comment on above: Performed By: #### E RUR #### [facility] [address] [place] [address] Christian Mikayla BLOOD Negative Normal NEGATIVE [facility] Comment on above: Performed By: #### E RUR #### [facility] [address] [place] [address] Christian Mikayla Clarity (U) CLEAR Normal [facility] Comment on above: Performed By: #### E RUR #### [facility] [address] [place] [address] Christian Mikayla Color (U) YELLOW Normal YELLOW [facility] Comment on above: Performed By: #### E RUR #### [facility] [address] [place] [address] Christian Mikayla ERUAHD A micrscopic examina tion will be performed if indicated. Normal [facility] Comment on above: Performed By: #### E RUR #### [facility] [address] [place] [address] Christian Mikayla Glucose [Mass/Vol] Negative Normal NEGATIVE [facility] Comment on above: Performed By: #### E RUR #### [facility] [address] [place] [address] Christian Mikayla Ketones Ql (U) Negative Normal NEGATIVE [facility] Comment on above: Performed By: #### E RUR #### [facility] [address] [place] [address] Christian Mikayla Nitrite Ql (U) Negative Normal NEGATIVE [facility] Comment on above: Performed By: #### E RUR #### [facility] [address] [place], [place] [address] Christian Mikayla pH (Bld) 6.0 Normal 5-9 [facility] Comment on above: Performed By: #### E RUR #### [facility] [address] [place] [address] Hcristian Mikayla Protein (U) [Mass/Vol] TRACE Normal [facility] Comment on above: Performed By: #### E RUR #### [facility] [address] [place] [address] Christianvíctor Degroot SPEC GRAVITY >=1.030 Normal 1.005-<=1.02 5 [facility] Comment on above: Performed By: #### E RUR #### [facility] [address] [place] [address] Christianvíctor Degroot UR MICRO IND NOT INDICATED Normal [facility] Comment on above: Performed By: #### E RUR #### [facility] [address] [place] [address] Christian Degroot Urobilinogen Qn (U) 0.2 EU/dl Normal [facility] Comment on above: Performed By: #### E RUR #### [facility] [address] [place] [address] Christianvíctor Santanaen WBC (Bld) [#/Vol] Negative Normal NEGATIVE [facility] Comment on above: Performed By: #### E RUR #### [facility] [address] [place], [place] [address] Christian Mikayla ETHANOL (BLD ALC)on 03-06-20 20 Ethanol [Mass/Vol] NOTE: 80 mg/dl is th e legal limit for a blood alcohol level Normal [facility] Comment on above: Performed By: #### E TH #### [facility] [address] [place], [place] [address] Christian Degroot Ethanol [Mass/Vol] mg/dL Normal [facility] Comment on above: Performed By: #### E TH #### [facility] [address] [place], [place] [address] Christian Degroot HEMOGRAM AND PLATELon 2019 WBC (Bld) [#/Vol] 23.5 103/ul Critically high 4.0-11.0 [facility] Comment on above: Performed By: #### H H #### [facility] [address] [place] [address] Christian Degroot LACTATE/LACTIC ACIDon 2019 Lactate [Moles/Vol] 0.7 mmol/L Normal 0.7-2.0 [facility] Comment on above: Performed By: #### L ACT #### [facility] [address] [place] [address] Christian Degroot MYOGLOBINon 03-06-2020 Myoglobin [Mass/Vol] 918.0 ng/mL Critically high <=61.5 [facility] Comment on above: Result Comment: test repeated critical value verified Performed By: #### M YO #### [facility] [address] [place] [address] Christian Degroot POINT OF CARE GLUCOSEon 02-14 Glucose [Mass/Vol] 117 mg/dL Critically high 74-106 [facility] Comment on above: Performed By: #### D RUGRPD #### [facility] [address] [place] [address] Christian Degroot PROF 14(COMP METB)on 020 Albumin [Mass/Vol] 3.3 g/dL Critically low 3.5-5.0 [facility] Comment on above: Performed By: #### T BLAYNE CMP #### [facility] [address] [place] [address] Christian Degroot Albumin/Globulin [Mass ratio] 1.1 {ratio} Normal [facility] Comment on above: Performed By: #### T BLAYNE CMP #### [facility] [address] [address] Christian Mikayla ALP [Catalytic activity/Vol] 69 U/L Normal 38-126 [facility] Comment on above: Performed By: #### T ROP, CMP #### [facility] [address] [place] [address] Christian Mikayla ALT [Catalytic activity/Vol] 30 U/L Normal 9-52 [facility] Comment on above: Performed By: #### T ROP, CMP #### [facility] [address] [address] Christian Mikayla Anion gap [Moles/Vol] 16.8 mmol/L Normal [facility] Comment on above: Performed By: #### T ROP, CMP #### [facility] [address] [place] [address] Christian Mikayla AST [Catalytic activity/Vol] 29 U/L Normal 14-36 [facility] Comment on above: Performed By: #### T ROP, CMP #### [facility] Laboratory [address] [place] [address] Christian Mikayla Bilirubin Ql (U) 0.4 mg/dL Normal 0.2-1.3 [facility] Comment on above: Performed By: #### T ROP, CMP #### [facility] Laboratory [address] [place] [address] Christian Mikayla Calcium [Mass/Vol] 8.7 mg/dL Normal 8.4-10.2 [facility] Comment on above: Performed By: #### T ROP, CMP #### [facility] [address] [place] [address] Christian Mikayla Chloride [Moles/Vol] 104 mmol/L Normal 98-107 [facility] Comment on above: Performed By: #### T ROP, CMP #### [facility] [address] [place], [place] [id number] Christian Mikayla CO2 [Moles/Vol] 22.6 mmol/L Normal 22.0-30.0 [facility] Comment on above: Performed By: #### T ROP, CMP #### [facility] [address] [place], [place] [address] Christian Mikayla Creatinine [Mass/Vol] 0.92 mg/dL Normal 0.52-1.04 [facility] Comment on above: Performed By: #### T ROP, CMP #### [facility] [address] [place], [place] [address] Christian Mikayla EGFR-AF BURMESE >60 Normal >=60 [facility] Comment on above: Performed By: #### T ROP, CMP #### [facility] [address] [place] [id number] Christian Mikayla EGFR-NON AF BURMESE >60 Normal >=60 [facility] Comment on above: Performed By: #### T ROP, CMP #### [facility] [address] [id number] Christian Mikayla Globulin (S) [Mass/Vol] 3.0 g/dL Normal [facility] Comment on above: Performed By: #### T ROP, CMP #### [facility] [address] [place] [address] Christian Mikayla Glucose [Mass/Vol] 130 mg/dL Critically high 74-106 [facility] Comment on above: Performed By: #### T ROP, CMP #### [facility] [address] [place], [place] [phone] Christian Mikayla Potassium [Moles/Vol] 4.4 mmol/L Normal 3.4-5.0 [facility] Comment on above: Performed By: #### T ROP, CMP #### [facility] [address] [place], [place] [address] Christian Mikayla Protein [Mass/Vol] 6.3 g/dL Normal 6.1-8.2 [facility] Comment on above: Performed By: #### T ROP, CMP #### [facility] [address] [place], [place] [address] Christian Mikayla Sodium [Moles/Vol] 139 mmol/L Normal 137-145 [facility] Comment on above: Performed By: #### T ROP, CMP #### [facility] [address] [place], [place] [address] Christian Mikayla Urea nitrogen [Mass/Vol] 18.0 mg/dL Critically high 7.0-17.0 [facility] Comment on above: Performed By: #### T ROP, CMP #### [facility] [address] [place] [address] Christian Mikayla Urea nitrogen/Creatinin e [Mass ratio] 19.6 mg/mg Normal [facility] Comment on above: Performed By: #### T ROP, CMP #### [facility] [address] [place] [address] Christian Mikayla RESPIRATORY PANEL PLUSon Adenovirus NOT DETECTED Normal NOT DETECTED [facility] Comment on above: Performed By: #### D RUGRPD #### [facility] [address] [place] [address] Christian Mikayla B. Parapertusis NOT DETECTED Normal NOT DETECTED [facility] Comment on above: Performed By: #### D RUGRPD #### [facility] [address] [place] [address] Christian Mikayla B. Pertussis NOT DETECTED Normal NOT DETECTED [facility] Comment on above: Performed By: #### D RUGRPD #### [facility] [address] [place] [address] Christian Mikayla Chlamydia Pneumoniae NOT DETECTED Normal NOT DETECTED [facility] Comment on above: Performed By: #### D RUGRPD #### [facility] [address] [place] [address] Christian Mikayla Coronavirus 229E NOT DETECTED Normal NOT DETECTED [facility] Comment on above: Performed By: #### D RUGRPD #### [facility] [address] [place] [address] Christian Mikayla Coronavirus HKU1 NOT DETECTED Normal NOT DETECTED [facility] Comment on above: Performed By: #### D RUGRPD #### [facility] [address] [place] [address] Christian Mikayla Coronavirus NL63 NOT DETECTED Normal NOT DETECTED [facility] Comment on above: Performed By: #### D RUGRPD #### [facility] [address] [place] [address] Christian Mikayla Coronavirus OC43 NOT DETECTED Normal NOT DETECTED [facility] Comment on above: Performed By: #### D RUGRPD #### [facility] [address] [place] [address] Christian Mikayla Influenza A H1 2009 NOT DETECTED Normal NOT DETECTED [facility] Comment on above: Performed By: #### D RUGRPD #### [facility] [address] [address] Christian Mikayla Influenza B NOT DETECTED Normal NOT DETECTED The [facility] Comment on above: Performed By: #### D RUGRPD #### [facility] [address] [address] Christian Mikayla Metapneumovirus NOT DETECTED Normal NOT DETECTED [facility] Comment on above: Performed By: #### D RUGRPD #### [facility] [address] [place] [address] Christian Mikayla Mycoplas. Pneumoniae NOT DETECTED Normal NOT DETECTED [facility] Comment on above: Performed By: #### D RUGRPD #### [facility] [address] [place] [address] Christian Mikayla Parainfluenza 1 NOT DETECTED Normal NOT DETECTED [facility] Comment on above: Performed By: #### D RUGRPD #### [facility] [address] [place] [address] Christian Mikayla Parainfluenza 2 NOT DETECTED Normal NOT DETECTED [facility] Comment on above: Performed By: #### D RUGRPD #### [facility] [address] [place] [address] Christian Mikayla Parainfluenza 3 NOT DETECTED Normal NOT DETECTED [facility] Comment on above: Performed By: #### D RUGRPD #### [facility] [address] [address] Christian Mikayla Parainfluenza 4 NOT DETECTED Normal NOT DETECTED [facility] Comment on above: Performed By: #### D RUGRPD #### [facility] [address] [address] Christian Mikayla Rhino/Enterovirus NOT DETECTED Normal NOT DETECTED [facility] Comment on above: Performed By: #### D RUGRPD #### [facility] [address] [place] [address] Christian Degroot RP2 Header 1 RESPIRATORY PANEL: VIRUSES Normal [facility] Comment on above: Performed By: #### D RUGRPD #### [facility] [address] [place] [address] Christian Degroot RP2 Header 2 RESPIRATORY PANEL: BACTERIA Normal [facility] Comment on above: Performed By: #### D RUGRPD #### [facility] [address] [place] [address] Christian Degroot RP2 Header 4 EUA SEE BELOW Normal [facility] Comment on above: Result Comment: This test is not yet approved or cleared by the [place] FDA. When there are no FDA-approved or cleared tests available, and other criteria are met, FDA can make tests available under an emergency access mechanism called an Emergency Use Authorization (EUA). The EUA for this test is supported by the [employer] of Health and Human Service?s (HHS?s) declaration [...] used). Performed By: #### D RUGRPD #### [facility] [address] [place] [address] Christian Degroot RSV NOT DETECTED Normal NOT DETECTED [facility] Comment on above: Performed By: #### D RUGRPD #### [facility] [address] [place] [address] Christian Degroot SARS-CoV-2: COVID-19 NOT DETECTED Normal NOT DETECTED [facility] Comment on above: Performed By: #### D RUGRPD #### [facility] [address] [place] [address] Christian Degroot TROPONIN - Ion 03-06-2020 Troponin I.cardiac [Mass/Vol] 0.016 ng/mL Normal <=0.034 [facility] Comment on above: Performed By: #### T BLAYNE, CMP #### [facility] [address] [place], [place] [address] Christian Degroot Troponin I.cardiac [Mass/Vol] SEE BELOW Normal [facility] Comment on above: Result Comment: <0.0 34 ng/ml NEGATIVE 0.034-0.119 INDETERMINATE 0.120 AMI CUT OFF Performed By: #### T BLAYNE CMP #### [facility] [address] [place], [place] [address] Christian Degroot XR CHEST 1 Von 03-06-2020 [...] FELA SMITH Date: 2020-03-06 15:07 Normal [facility] CT 3D CERVICAL SPINE WITH CO NTRASTon 04-27-2018 CT 3D CERVICAL SP[facility] [address] [place] [address] Patient Name: RADHA DUNCAN : 1970Sex: FAge: Race: WhiteMRN: [id number]. Location: 85Patient Status: OVisit #: [id number] Date: 04/10/2018 12:10:00 PMCompleted Date: 04/27/2018 10:58 AMRequesting Provider: MARY DIAL Attending Provider: MARY DIAL Report Copy To: TEJAS RICHARDSON Signs & Symptoms: M54.12 Radiculopathy, cervical region [id number]: Nyla MYELOGRAM AUTH [id number] VALID 04/11/18-07/12/18 PER [employer] 96466 JYComments: Exam: CT 3D CERVICAL SPINE WITH CONTRASTAccession #: [id number] CT 3D CERVICAL SPINE WITH CONTRAST 04/27/2018 [...] findings. Electronically signed by:Oli Sanders. Transcribed by: [email or web address], User Resident: MANDEEP ROSTElectronically Signed by: OLI SANDERS @ 04/27/2018 01:02 PMI personally read this/these film(s) with this resident Normal [facility] CT 3D LUMBAR SPINE W CONTRAS Ton 04-27-2018 CT 3D LUMBAR SPINE W CONTRAST [facility] [address] [place] [id number] Patient Name: RADHA DUNCAN : 1970Sex: FAge: Race: WhiteMRN: [id number]. Location: 85Patient Status: DVisit #: [id number] Date: 04/10/2018 12:10:00 PMCompleted Date: 04/27/2018 10:59 AMRequesting Provider: MARY DIAL Attending Provider: MARY DIAL Report Copy To: TEJAS RICHARDSON Signs & Symptoms: M54.16 Radiculopathy, lumbar region T84Rlpvtkz: Nyla MYELOGRAM AUTH [id number] VALID 04/11/18-07/12/18 PER [facility] [address] JYComments: Exam: CT 3D LUMBAR SPINE W CONTRASTAccession #: [id number] CT 3D LUMBAR SPINE W CONTRAST 04/27/2018 [...] findings. Electronically signed by:Antony Skelton. Transcribed by: [email or web address], User Resident: MANDEEP YOUNGElectronically Signed by: ANTONY SKELTON @ 04/27/2018 05:36 PMI personally read this/these film(s) with this resident Normal [facility] ENTIRE MYELOGRAMon 8 ENTIRE MYELOGRAM [facility] [address] [place] [address] Patient Name: RADHA DUNCAN : 1970Sex: FAge: Race: WhiteMRN: [id number]. Location: 85Patient Status: OVisit #: [id number] Date: 04/10/2018 12:10:00 PMCompleted Date: 04/27/2018 10:19 AMRequesting Provider: MARY DIAL Attending Provider: MARY DIAL Report Copy To: TEJAS RICHARDSON Signs & Symptoms: M54.16 Radiculopathy, lumbar region [id number]: [place] MYELOGRAMComments: , , , Ordering Provider - MARY DIAL MD , Exam: ENTIRE MYELOGRAMAccession #: [id number] ENTIRE MYELOGRAM 04/27/2018 10:19 AM EST SIGNS [...] and risks are acceptable. Consent was obtained. Timeout:[place]orence protocol timeout verification performed. PROCEDURE:Estimated blood loss:None [...] findings. Electronically signed by:Oli Sanders. Transcribed by: [email or web address], User Resident: MANDEEP YOUNGElectronically Signed by: OLI SANDERS @ 04/27/2018 01:01 PMI personally read this/these film(s) with this resident Normal [facility] Comment on above: Order Comment: , , = ========= , Ordering Provider - MARY DIAL MD , Ta 02-20-2018 SONIA Telephone (ETELVINA) -------RADHA DUNCAN ([id number]) [address] [facility] Vibvnqrdiq28/8/18 MAGED MURDOCK During your visit today, we recorded the following information about you:Jacinta Jose Martin [facility] Patient Service Spec 02/20/2018 8:05 AM SignedPt [...] from his care.Please call her back at [phone].Elysia Jan Psr 02/22/2018 8:37 AM SignedPlease fax letter over to [phone].Clint Park LPN 02/27/2018 10:18 AM SignedSpoke with patient and she wanted to know if knew of a physician inthe area that she lived that could do the ketamine infusion.I explained most likely he would not have this information she would need tocheck around in her area with other pain providers to see if they do theinfusions. She said she found one in the [place] area but they want money upfront and [...] by MAGED MURDOCK MD on 02/28/18 Normal [facility] [place] [facility] CNOVon 02-10-2018 CNOV Office Visit (PAINCC) -------DAKOTARADHA ([id number]) 1970 FDate Time Provider Department02/10/18 10:45 AM MAGED MURDOCK [facility] During your visit today, we recorded the following information about you: Pulse Respiration Blood pressure Weight 80/minute 16/minute 132/47 69.9 kgBenjamin MD Juanito 02/11/2018 1:30 PM AddendumSUBJECTIVE:The patient presents to [...] [facility] were reviewed.Imaging results in scanned [...] other than HPI.Data scribed by above mentioned MA/ENTERTAINMENT DANCER/RN/PA, and personally reviewed andverified by physician. Maged [...] treatment plan. Patient agreeswith above. Maged Murdock, [facility] [place]Referring Provider: LINDSEY AGUILAR [[id number]]Allergies As of Date: 02/10/2018(No Known Allergies)Date Reviewed: [...] FOR* 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] INVALID FOR*Letter TextSept2017Maged Murdock, [facility] [address] [place], [place] [phone] [phone] Suzanne M Bailey:Thank you for seeing me [...] any questions. Sincerely, Maged Murdock MDEncounter Number: [id number] Status:Closed by MAGED MURDOCK MD on 02/11/18 Normal [facility] [place] [facility] PROGRESSon 02-10-2018 Protein mass conc HNO ID: [id number] thor: Maged Jolleyervice: (none)Author Type: PhysicianType: Progress [...] other than HPI.Data scribed by above mentioned MA/ENTERTAINMENT DANCER/RN/PA, and personally reviewed andverified by physician. Maged [...] Patientagrees with above. PAU Joynereptember 2017 Normal [facility] [place] [facility] CNOVon 01-10-2018 CNOV Office Visit (PAINCC) -------RADHA DUNCAN ([id number]) 1970 FDate Time Provider Department01/10/18 1:00 PM MONICA YAN ([facility]) PAINCC During your visit today, we [...] and C4-C5 secondaryto DDDAnterior mechanical fusion of U6-2-1OWHVRO OF SYSTEMS:GENERAL: (-) weight loss, (+)malaise, (-)fevers.HEENT:(+)headache [...] other than HPI.Data scribed by above mentioned MA/ENTERTAINMENT DANCER/RN/PA, and personally reviewed andverified by Monica Yan [...] resulting treatment plan. Patient agreeswith above.Monica Yan APRN.ARLENEAupresbyterian santa fe medical centerchristen 2017Referring Provider: TEJAS RICHARDSON JR [[id number]]Allergies As of Date: 01/10/2018(No Known Allergies)Date Reviewed: [...] INVALID FOR*Follow-up and Disposition History RecordedEncounter Number: [id number] Status:Closed by MONICA YAN CNP on 01/10/18 Normal [facility] [place] [facility] PROGRESSon 01-09-2018 Protein mass conc HNO ID: [id number] thor: Monica Pereyra (Glue Drier Operator) HillService: (none)Author Type: Nurse PractitionerType: Progress NotesFiled: [...] to moderate foraminal narrowing at C3-C4, and C4-O1ipbvylyss to DDDAnterior mechanical fusion of G4-3-0JUQIWE OF SYSTEMS:GENERAL: (-) weight loss, (+)malaise, (-)fevers.HEENT:(+)headache [...] other than HPI.Data scribed by above mentioned MA/ENTERTAINMENT DANCER/RN/PA, and personally reviewed andverified by Monica Yan [...] resulting treatment plan. Patientagrees with above.Monica Yan APRN.CNPJakob 2017 Normal [facility] [place] [facility] CNPFlaca 12-21-2017 CNPN Telephone ([facility]) -------RADHA DUNCAN ([id number]) 1970 [facility] Time Provider Department12/21/17 MAGED MURDOCK During your visit today, we recorded the following information about you:Lorena Araiza 12/21/2017 10:31 AM AddendumPatient calling in to inquire if you have received MRI [facility].Please advisJacob Park LPN 12/22/2017 3:15 PM SignedSpoke with patient and informed her that we did receive the thoracic MRI whichwas normal.We did not receive the cervical MRI. She will call [facility] and have them refaxit.Kami Zheng Workleader 12/26/2017 9:53 AM SignedPatient called back in regards to below message. Patient would like to know ifwe have received the Cervical MRI as it was refaxed 12/22. Pleasereview.Clint Park LPN 12/26/2017 11:01 AM SignedSpoke to [facility] and they are refaxing it as I [...] Status:Closed by CLINT PARK LPN on 12/22/17 [facility] CNOVon 12-08-2017 CNOV Office Visit (JOYCELYNCC) -------RADHA DUNCAN ([id number]) 1970 [facility] Time Provider Department12/08/17 1:30 PM MAGED MURDOCK During your visit today, we recorded the following information about you: Pulse Respiration Blood pressure Weight 62/minute 16/minute 105/40 68.9 kgMaged Murdock MD 12/08/2017 6:06 PM SignedReferring Or Consulting Physician:JACKY Vargas[address] 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 Maged [...] also during rena-operative period. we dont have berb-yccuwio-lnlzbzls for disability, likely to hamper rapid recovery [...] she did have severe postprocedure pain in [facility] handsDirect patient care time spent: [...] or mail.Aishwarya Joyner 2017Referring Provider: LINDSEY AGUILAR [[id number]]Allergies As of Date: 12/08/2017(No Known Allergies)Date Reviewed: [...] region [M48.02]Order(s):C-REACTIVE PROTEIN (CRP) [SQCRP] Order #: [id number] FUTURE SED RATE WESTERGREN [SQWSR] Order #: [id number] FUTURE TSH BLD [SQTSH] Order #: [id number] FUTURE IRON + TIBC [SQIRON] Order #: [id number] FUTURE VITAMIN D 25 HYDROXY [SQVITD] Order #: [id number] FUTURE MRI THORACIC SPINE WO/W IVCON [[id number]] Order #: [id number] FUTURE iv contrast (will be provided with [...] EachRfl: 0 MRI CERVICAL SPINE WO IVCON [[id number]] Order #: [id number] FUTUREPrescriptions as of 12/08/2017 Sig: OXCARBAZEPINE 150 [...] for discontinue is not on file.Letter TextJuly 2017Benjamin JuanitoOhio State Health Systempartment of Pain [address], [place] [phone] [phone] Suzanne M Bailey:Thank you for seeing me [...] medications for the issues above, [facility] would be the next steps. Afterthat, further testing could be done to get to the bottom of your problems.Please call with any questions. Sincerely, Maged Murdock MDEncounter Number: [id number] Status:Closed by MAGED MURDOCK MD on 12/08/17 Normal [facility] [place] [facility] PROGRESSon 12-08-2017 Protein mass conc HNO ID: [id number] thor: Maged Jolleyervice: (none)Author Type: PhysicianType: Progress NotesFiled: 12/08/2017 6:06 PMNote Text:Referring Or Consulting Physician:Lindsey Aguilar, JACKY[address] 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 Maged [...] she did have severepost procedure pain in [facility] handsDirect patient care time spent: [...] above viaelectronic record, fax, or mail.Maged Murdock MDJuluis 2017 Normal [facility] [place] [facility] Vital Signs Date Time Vital Sign Value Performing Clinician Faci nadiya 02-18-2025 10:33-0400 Body height 162.56 cm Tejas Richardson JR Work Phone: [facility] 02-18-2025 10:33-0400 Body mass index (BMI) [Ratio] 28.5 kg/m2 Tejas Richardson JR Work Phone: [facility] 02-18-2025 10:33-0400 Body weight 75.6 kg Tejas Richardson JR Work Phone: [facility] 06-26-2024 09:30-0500 Body height 160 cm Maged Nerifeliciano MORA Work Phone: [facility] 06-26-2024 09:30-0500 Body mass index (BMI) [Ratio] 30.11 kg/m2 Maged Contreras Work Phone: [facility] 06-26-2024 09:30-0500 Body weight 77.11 kg Maged Daronfeliciano MORA Work Phone: [facility] Healthcare Encounters Encounter Date Encounter Type Care Provider Facility Start: 02-18-2025 End: 02-18-2025 ambulatory Tejas Richardson JR Work Phone: [facility] Work Phone: Start: 02-18-2025 End: 02-18-2025 Patient encounter procedure Shubham Valentino DO -[facility] Work Phone: Start: 01-21-2025 End: 01-21-2025 ambulatory Tejas Richardson DO Facility:[facility] Start: 08-27-2024 End: 08-27-2024 ambulatory Tejas Richardson DO Facility:[facility] Start: 07-23-2024 End: 07-23-2024 ambulatory Tejas Richardson DO Facility:[facility] Start: 06-26-2024 End: 06-26-2024 Bamboo flowsheet Maged Reycecilia DO Work Phone: [facility] Start: 06-26-2024 End: 06-26-2024 Bamboo flowsheet Maged Contreras DO Work Phone: [facility] Start: 06-26-2024 End: 06-26-2024 Clinical Support Gina Rdidle [facility] Work Phone: [facility] Comment on above: 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 (Primary Dx) Start: 06-26-2024 End: 06-26-2024 Office outpatient new 45 minutes Maged Nerifeliciano DO Work Phone: [facility] Comment on above: 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 (Primary Dx); Impacted cerumen of left ear Start: 06-25-2024 End: 06-25-2024 ambulatory Tejas Richardson Facility:[facility] Start: 06-11-2024 End: 06-11-2024 ambulatory Tejas Richardson Facility:[facility] Start: 04-24-2024 End: 04-24-2024 ambulatory [facility] Start: 04-11-2024 End: 04-11-2024 ambulatory [facility] Start: 04-04-2024 End: 04-04-[address] [facility] Start: 03-27-2024 End: 03-27-[address] [facility] Start: 03-20-2024 End: 03-20-2024 ambulatory [facility] Start: 03-16-2024 End: 03-16-2024 ambulatory TEJAS RICHARDSON [facility] Start: 03-15-2024 End: 03-15-2024 ambulatory [facility] Work Phone: Start: 03-15-2024 End: 03-15-2024 Patient encounter procedure [facility] Work Phone: Start: 03-13-2024 End: 03-13-2024 ambulatory TEJAS RICHARDSON [facility] Start: 03-07-2024 End: 03-07-2024 ambulatory UNKNOWN PHYSICIAN [facility] Start: 12-15-2023 End: 01-15-2024 ambulatory TEJAS Pereyra [facility] Start: 12-05-2023 End: 12-15-2023 ambulatory [facility] Start: 08-22-2023 End: 08-22-2023 ambulatory [facility] Start: 08-15-2023 End: 09-14-2023 ambulatory [facility] Start: 07-18-2023 End: 08-15-2023 ambulatory [facility] Start: 03-06-2020 End: 03-07-2020 Patient encounter procedure PEREZ LESTER Facility: Start: 04-27-2018 End: 04-28-2018 Patient encounter procedure PROVIDER UNKNOWN Facility:[facility] Start: 02-10-2018 End: 02-13-2018 Patient encounter MAGED MURDOCK [facility] Start: 01-10-2018 End: 01-11-2018 Patient encounter MONICA Roddy (VANESSA YAN [facility] Start: 12-08-2017 End: 12-09-2017 Patient encounter MAGED MURDOCK [facility] Procedures Date Procedure Procedure Detail Performing Clinician Start: 06-26-2024 AUDITORY FUNCTION TESTS Gina Riddle [facility] Work Phone: Start: 03-06-2020 End: 03-06-2020 Microscopic examination of blood, culture PEREZ LESTER Comment on above: Performed By: #### D RUGRPD #### [facility] [address] [id number] Christian Degroot Start: 01-30-2020 Mammography Maged mercer DO Work Phone: Plan of Treatment Date Care Activity Detail Author Start: 02-06-2025 Screening for malign ant neoplasm of cervix [facility] Start: 06-26-2024 End: 06-26-2024 Patient encounter procedure 06/26/2024 9:30 AM EST Office Visit [facility] [address] [place] [address] Maged Contreras, DO [address] [facility] [place] [address] Arrived [facility] Comment on above: Arrived Start: 01-15-2024 Influenza vaccination Influenza Vacc ine (#1) [facility] Start: 01-29-2021 Screening for malign ant neoplasm of breast Mammogram [facility] Start: 1990 Screening for malign ant neoplasm of cervix Pap Smear [facility] Start: 1969 Screening for malign ant neoplasm of colon [facility] Immunizations Immunization Date Immunization Notes Care Provider Nazanin thornton 11-29-2020 Pfizer Purple Cap SARS-CoV-2 Vaccination Maged Contreras DO Work Phone: [facility] 11-09-2020 Pfizer Purple Cap SARS-CoV-2 Vaccination Maged Contreras DO Work Phone: [facility] 03-06-2020 influenza, high dose seasonal, preservative-free Maged Contreras DO Work Phone: [facility] 03-06-2020 influenza virus vacc ine, unspecified formulation Maged Contreras DO Work Phone: [facility] Payers Date Payer Category Payer Private Health Insurance [facility] [id number] 2024 Unknown 2023 Unknown [id number] 2022 Unknown [id number] 1969 Unknown [id number] 2.16840.1.821308.3.579. 2.647 1969 Unknown [id number] 2.16840.1.497402.3.579. 2.593 1969 Unknown [id number] 2.840.1.187757.3.579. 2.1285 1969 Unknown [id number] 2.840.1.218663.3.579. 2.128 1969 Unknown [id number] 2.840.1.829916.3.579. 2.1285 1969 Unknown [id number] 2.840.1.413497.3.579. 2.1285 1969 Unknown [id number] 2.16840.1.390495.3.579. 2.128 1969 Unknown [id number] 2.16840.1.186540.3.579. 2.128 1969 Unknown [id number] 2.16840.1.306094.3.579. 2.128 1969 Unknown [id number] 2.16840.1.632733.3.579. 2.128 1969 Unknown [id number] 2.16840.1.211645.3.579. 2.128 1969 Unknown [id number] 2.16840.1.871401.3.579. 2.128 1969 Unknown [id number] 2.16.840.1.408345.3.579. 2.1285 1969 Unknown [id number] 2.16.840.1.777203.3.579. 2.1285 1969 Unknown [id number] 2.16.840.1.088596.3.579. 2.1285 1969 Unknown [id number] 2.16.840.1.689585.3.579. 2.1285 1969 Unknown [id number] 2.16.840.1.852197.3.579. 2.1285 1969 Unknown [id number] 2.16840.1.345884.3.579. 2.9 1969 Unknown [id number] 2.16840.1.359481.3.579. 2.1258 1969 Unknown [id number] 2.16840.1.966967.3.579. 2. 1969 Unknown [id number] 2.16840.1.842054.3.579. 2. 1969 Unknown [id number] 2.16840.1.595376.3.579. 2. 1969 Unknown [id number] 2.16840.1.520904.3.579. 2. 1969 Unknown [id number] 2.840.1.078021.3.579. 2.196 1959 Unknown [id number] Unknown [id number] Social History Date Type Detail Facility Tobacco smoking stat [facility] Unknown if ever smoked [facility] Work Phone: Start: 1970 Sex Assigned At Female [facility] consumption [facility] Start: 1970 Sex assigned at Not on file [facility] Start: 06-26-2024 Gender identity [facility] file [facility] Start: 06-26-2024 End: 01-31-2025 Tobacco smoking status [facility] Smokes tobacco daily [facility] History of tobacco use Cigarette Smoker [facility] Start: 06-26-2024 Tobacco use and exposure Smokeless tobacco non-user [facility] Start: 06-26-2024 Alcoholic beverage intake Ex-drinker (finding) [facility] Start: 06-26-2024 History of Social function [facility] Sex Female (finding) [facility] History of Present illness Narrative 06-26-2024 CK [...] Acoustic Reflexes: Noisy documented in this encounter [facility] History of Present illness Narrative 06-26-2024 [...] back as needed documented in this encounter [facility] Evaluation note Note Date & Type Note Facility Evaluation note No assessment information availa [facility] Work Phone: Evaluation note Note Date & Type Note Facility Evaluation note Diagnosis Sensorineural hearing loss (SNHL) of left ear with unrestricted hearing of right ear- Primary Impacted cerumen of left ear Impacted cerumen documented in this encounter [facility] Healthcare Evaluation note Note Date & Type Note Facility Evaluation note Diagnosis Conductive hearing loss of left ear with unrestricted hearing of right ear- Primary documented in this encounter [facility] Healthcare Evaluation note Note Date & Type Note Facility Evaluation note Diagnosis Onset Date Resolution Fusion of lumbar spine acute Oc tober 2024 10:29am Greater trochanteric bursitis of both hips acute February 10:29am Pain of both sacroiliac joints acute February 18 10:29am [facility] Work Phone: Reason for referral (narrative) Note Date & Type Note Facility Reason for referral (narrative) No reason for referral information available [facility] Work Phone: Summary Purpose Family History No Family History Records FoundNo Family History Records FoundNo Family History Records FoundNo Family History Records FoundNo Family History Records FoundNo Family History Records FoundNo Family History Records Found Advance Directives Advance Directive Response Recorded Date/ Time Advance Directives No November 27 3:35pm Advance Directive Response Recorded Date/ Time Advance Directives No January 11:46am Chief Complaint and Reason for Visit Chief Complaint Admit Date LUMBAR BACK PAIN February 18, 2025 10 :29am Reason for Visit Admit Date Fusion of lumbar spine February 18, 2025 10:29am Greater trochanteric bursitis of both hi ps February 18, 2025 10:29am Pain of both sacroiliac joints February 182024 10:29am Additional Source Comments INFORMATION SOURCE (unrecogn ized section and content) DATE CREATED AUTHOR 04/03/2018 [facility] DATE CREATED AUTHOR AUTHOR'S ORGANIZ ATION 05/03/2018 [facility] DATE CREATED AUTHOR AUTHOR'S ORGANIZ ATION 04/09/2020 [facility] DATE CREATED AUTHOR AUTHOR'S ORGANIZ ATION 04/07/2024 [facility] DATE CREATED AUTHOR AUTHOR'S ORGANIZ ATION 04/28/2024 [facility] DATE CREATED AUTHOR AUTHOR'S ORGANIZ ATION 06/28/2024 [facility] DATE CREATED AUTHOR AUTHOR'S ORGANIZ ATION 01/27/2025 [facility] Care Teams (unrecognized sec tion and content) Team Status: Active Member Role Status Dates Tejas Richardson JR DO Primary Care Provider Active Team Status: Inactive Member Role Status Dates Tejas Richardson JR DO Primary Care Provider Active Start: March 15, 2024 End: March 15, 2024 Fela Roman MD Attending Provider Active Sta rt: March 15, 2024 End: March 15, 2024 Assistant Wrestling Coach Relationship Specialty Start Date End Date Tejas Richardson MD [address] [place] [address] [id number] PCP - General Internal Medicine 06/26/24 Assistant Wrestling Coach Relationship Specialty Start Date End Date Tejas Richardson MD [address] [place] [address] [id number] PCP - General Internal Medicine 06/26/24 Assistant Wrestling Coach Relationship Specialty Start Date End Date Tejas Richardson MD [address] [place] [id number] PCP - General Internal Medicine 06/26/24 Team Status: Inactive Member Role Status Dates Tejas Richardson JR DO Primary Care Provider Active Start: February 18, 2025 End: February 18, 2025 Shubham Valentino , Attending Provider Active S tart: February 18, 2025 End: February 18, 2025 Goals (unrecognized section and content) Goals may be documented in a n alternate sectionGoals may be documented in an alternate section Reason for Visit (unrecogniz ed [...] PRIMARY CLINICAL RECORDS. [facility] [employer] provides no warranty or guarantee of the accuracy or completeness of information in this document.
--- NOTE | 2025-03-01 10:08 | CT_ITS ---
The [address] [address] Patient Name: RAHEEM DUNCAN MRN: [id number] date: 1970 Sex: F Assigned Patient Location: LAB Current Patient Location: LAB Accession/Order Number: [id number] Exam Date: 03/01/2025 10:22 Report Date: 03/01/2025 11:13 At the request of: JERAMIE MAGALLON DO Procedure: CT lumbar spine wo con CT lumbar spine wo con 03/01/2025 10:32 AM History:Pain since surgery. Based on both legs. TECHNIQUE: Multi detector CT axial slices of the lumbar spine were obtained without IV contrast. Volumetric acquisition sagittal, coronal, and 3-D reconstructions were performed and reviewed on a separate workstation. CT was performed with one or more of the following dose reduction techniques: Automated exposure control, adjustment of the mA and/or kV according to patient size, or use of iterative reconstruction technique. COMPARISON: MRI 01/17/2025 FINDINGS: Posterior hardware fixation L3-L4 without fracture. Vertebral body heights appear maintained. Diffuse endplate and facet joint degenerative changes without significant disc space narrowing involving the unfused levels. Transverse processes appear intact. SI joints demonstrate degenerative change. Soft tissues demonstrate postoperative changes. Once again noted are fluid collections surrounding the pedicular hardware best evaluated on the prior MRI. No air bubbles are noted. Visualized retroperitoneum demonstrates no acute process. CT/CT lumbar spine wo con IMPRESSION: Previously identified fluid collections surrounding the pedicular hardware at L3-L4 once again demonstrated and best visualized on the prior MRI study. No air bubbles are identified to suggest abscess. Impression dictated by: Álvaro Davidson Jr., D.O. 03/01/2025 11:13 AM Dictation Location: [place] [address] Electronically authenticated by: [id number] Y Date: 03/01/2025 11:13
--- NOTE | 2025-03-01 10:09 | XR_ITS ---
The [address] [id number] Patient Name: RAHEEM DUNCAN MRN: [id number] date: 1970 Sex: F Assigned Patient Location: LAB Current Patient Location: LAB Accession/Order Number: [id number] Exam Date: 03/01/2025 10:35 Report Date: 03/01/2025 11:16 At the request of: JERAMIE MAGALLON DO Procedure: XR lumbar spine min 4V LUMBAR SPINE - 4 views CLINICAL HISTORY: Fusion Of Lumbar Spine COMPARISON: None FINDINGS: Posterior hardware L3-L4 without plain film evidence of hardware complication such as fracture. Vertebral body heights appear maintained. SI joints demonstrate degenerative change. XR/XR lumbar spine min 4V IMPRESSION: NO PLAIN FILM EVIDENCE OF HARDWARE COMPLICATION. Impression dictated by: Álvaro Davidson Jr., DDimitriODimitri 03/01/2025 11:16 AM Dictation Location: [employer] Electronically authenticated by: [id number] Y Date: 03/01/2025 11:16
== END 2025-03-01 09:51 | disposition home or self-care (01) ==
PROVIDERS: PCP Internal Medicine; Visit Provider Neurological Surgery
DX: M70.61 Trochanteric bursitis, right hip (principal); M70.62 Trochanteric bursitis, left hip; M53.3 Sacrococcygeal disorders, not elsewhere classified; M43.26 Fusion of spine, lumbar region
CPT/HCPCS: 36415; 72110; 72131; 76376; 85652; 86140

== ENCOUNTER 2025-05-01 09:03 | Outpatient (OUT) | payer OTHER, SELFPAY ==
--- OUTSIDE RECORDS SUMMARY | 2024-06-22 03:30 | XMS_ITS ---
Author Organization [facility] Address [address] [place] [address] Care Team Providers Care Cone Tender Name Role Phone Nicole Collado Unavailable [phone] LatashamiloTejas Unavailable Unavailable REASON FOR VISIT LUMBAR RECHECK Medications Medication SIG (Take, Route, Frequency, Duration) Notes Start Date End Date Status ibuprofen ActiveFlexeril 10 mg1 tab(s) orally 3 times a day prn muscle kxgrxs5709/05/2023 ActiveCyclobenzaprine Hydrochloride 10 mg1 tab(s) orally 3 times a day prn muscle moxudr9010/14/2023ctiveMedrol Dosepak 4 mgas directed as directed 11/21/2023ctiveFlexeril 10 mg1 tab(s) orally 3 times a day12/16/2023ctive CymbaltaActiveBayer AspirinActiverosuvastatinActiveCalcium 600+DActiveVitamin B-12Active Encounters Encounter Location Date Provider Diagnosis [facility] Office [address] [place] [address] [place] [address] 06/22/2024 Nicole Collado Aftercare following surgery of the musculoskeletal system Z47.89 Assessments Encounter Date Diagnosis (ICD Code) Assessment Notes Treatment Notes Treatment Clinical Notes Section Notes 06/22/2024 Aftercare following surgery of the musculoskeletal system (ICD-10 - Z47.89) Plan Of Treatment Pending Test Test Name Order Date Lumbar spine, 4v flex ext - [id number] 2024 Progress Notes * RAHEEM DUNCAN MDOB: [birth year] (55 yo F)Acc No.[id number]:06/22/2024 Patient:?RAHEEM DUNCAN :?Nicole Pineda MD, PhDDOB:1970 ???Age:54 Y???Sex:FemaleDate:06/22/2024Phone:[phone]:[address], [id number] Subjective: * Chief Complaints: * 1 . LUMBAR RECHECK. * Medical History: * Medications: T aking Calcium 600+D , [...] 1 tab(s) orally 3 times a day Objective: * Vitals: Assessment: * Assessment: 1.?Aftercare following surgery of the musculoskeletal system - Z47.89 (Primary)?? Plan: * Treatment: ?Imaging: Lumbar spine, 4v flex ext - [id number] Forms: * Images: * Electronic signature of Nicole Collado MD, PHD on 05/01/2025 at 09:11 AM EST Sign off status: Pending * Provider: Taz Pineda MD, PhD Date: 0 06/22/2024 Generated for Printing/Faxing/eTransmitting on:?05/01/2025 09:11 AM EST
--- OUTSIDE RECORDS SUMMARY | 2025-04-29 06:59 | XMS_ITS | Continuity of Care Document ---
Author Organization [facility] Address [address] [place] [address] Phone Care Team Providers Care Lymphedema Therapist Name Role Phone Tejas Newell JR Primary Care Provider Shubham Valentino DO Attending Provider Care Teams Patient Care Team Team Status: Active Member Role/Relationship Status Dates Tejas Newell JR DO Primary Care Provider Active Visit Care Team Team Status: Inactive Member Role/Relationship Status Dates Tejas Newell JR DO Primary Care Provider Active Start: February 18, 2025 End: February 18, 2025Shabnam Chao ProviderActiveStart: February 18, 2025 End: February 18, 2025 Visit Care Team Team Status: Inactive Member Role/Relationship Status Dates Tejas Newell JR DO Primary Care Provider Active Start: March 25, 2025 End: March 25, 2025Eric Yamilex Valentino DOAttjames ProviderActiveStart: March 25, 2025 End: March 25, 2025 Visit Care Team Team Status: Inactive Member Role/Relationship Status Dates Tejas Newell JR DO Primary Care Provider Active Start: April 18, 2025 End: April 18, 2025Eric Shabnam Cota ProviderActiveStart: April 18, 2025 End: April 18, 2025 Visit Care Team Team Status: Inactive Member Role/Relationship Status Dates Tejas Newell JR DO Primary Care Provider Active Start: April 25, 2025 End: April 25, 2025Eric N Bialaski , DOAttending ProviderActiveStart: April 25, 2025 End: April 25, 2025 Patient Care Team Team Status: Inactive Member Role/Relationship Status Dates Tejas Newell JR DO Primary Care Provider Active Start: April 29, 2025 End: April 29, 2025Shubham Valentino DOAttending ProviderActiveStart: April 29, 2025 End: April 29, 2025 Chief Complaint and Reason for Visit Chief Complaint Admit Date LUMBAR BACK PAIN February 18, 2025 10 :29am imaging results March 25, 2025 11:08am M81.0 April 18, 2025 8 :28am T85.738A April 25, 2025 9:57am results April 29, 2025 10:53am Reason for Visit Admit Date Fusion of lumbar spine February 18, 2025 10:29am Greater trochanteric bursitis of both hi ps February 18, 2025 10:29am Pain of both sacroiliac joints February 182024 10:29am Fusion of lumbar spine March 25 11:08am Infection associated [facility] 20[facility] 9:57am Allergies, Adverse Reactions, Alerts Allergen Type Severity Reaction Last Updated Verified Status No Known Allergies Allergy Unknown April 29, 2025 10:50amYesActive Social History Smoking Status Status Start Date End Date Date of Observa tion Smokes tobacco daily (finding) April 25, 2025 12:10pm Observation Status Observation Response Date of Response Legal Sex Female (finding) Sex Assigned At [facility] 1969 Problems Active Problems Problem Diagnosis/Recorded Date Onset Date Stat us Infection/inflammation-neural device March 15 12:30pm Unknown Active Greater trochanteric bursiti s of both hips February 18, 2025 9:52am Unknown Active Pain of both sacroiliac joints February 18, 2025 9:52a m Unknown Active Infection associated with device March 15, 2024 12 :26pm Unknown Active Fusion of lumbar spine February 18, 2025 9:52am Unknow n Active Medications Medication Status Dose Units Route Directions Qty Days Refills S tart Date Stop Date End Date Reason(s) Instructions Adherence Duloxetine (Cymbalta) 60 mg capsule,delayed release(DR/EC) A ctive 60 MG PO Daily March 14, 2024 11:00pmComplies with drug therapyIbuprofen 800 mg tablet Nupzep827OFRRSmgum 8 hoursOctober 2023 11:00pmComplies with drug therapy Rosuvastatin (Crestor) 5 mg dndgdxQkchea6PBMOIviwgHumlnyr 2023 11:00pm Complies with drug therapypotassium chlorideDiscontinuedPOOctober 2023 11:00pmOctober 2024 9:36amMetronidazole 500 mg vkpwawBjnhqovjoqbc398KCUB Twice dailyOctober 2023 11:00pmDecember 2023 1:25pmcalcium carbonate (Calcium 600)DiscontinuedPOOctober 2023 11:00pmOctober 2024 9:36am hcrdxatwkgygZdstmz5MZSQVJzvrzDyefuzl 2023 11:00pmComplies with drug therapyTizanidine 4 mg bhulfaWtagar9DOBDCffcj at bedtimeOctober 2024 11:00pmComplies with drug therapyAcetaminophen-Codeine 300-30 mg tabletActive1 TABPOTwice dailyOctober 2024 11:00pmComplies with drug therapyAspirin 81 mg xhuokhEydrgq17FNMQIolhqCjhbmbq 2024 11:00pmComplies with drug therapy Ezetimibe 10 mg ohtbctEhsznk46YMOOOgxnoFnivmhz 2024 11:00pmComplies with drug therapy Procedures Procedure Date Performed Status XR dexa axial skeleton April 18, 2025 8:29am completed XR lumbar spine 6V w bending April 18, 2025 9:46am completed US needle aspiration April 25, 2025 10:06am completed Aerobic Culture April 25, 2025 completed Anaerobic Culture April 25, 2025 completed Gram Stain April 25, 2025 completed Relevant Diagnostic Tests and/or Laboratory Data Laboratory Results Test Collection Date/Time Result Date/Time Result Interpretation Reference Range Result Comment Performing Site Platelet Count April 25, 2025 10:25am April 252024 10:49am 309 10*3/uL 150-450[facility] [id number] [address] [place] [address]Mgddoewxbuu TimeDece2024 10:25amDeceer 11th, 2025 10:39am10.9 s9.0-12.9A hematocrit value greater than 55% may lead to inaccurate results in coagulation testing. Patientshaving hematocrit values >55% require a special collection tube for coagulation studies. Please contact the laboratory at [phone] for redraw instructions.[facility] [id number] [address] [facility] [address]Gadctgttu Time International RatioDece2024 10:25am April 25, 2025 10:39am1.0INR Therapeutic Range A) Pre- and Peroperative OAT started two weeks before surgery. NOT HIP SURGERY: 1.5 - 2.5 HIP SURGERY: 2 - 3B) Primary and secondary prevention of venous THROMBOSIS: 2 - 3C) Active venous thrombosis, pulmonary embolismand prevention of recurrent venous thrombosis: 2 - 3D) Prevention of arterial thromboembolismincluding patients with mechanical heart valves: 3 - 4.5F[facility] [id number] [address] [facility] [address]Hblzbnqvu Partial Thromboplast TimeDece2024 10:25am April 25, 2025 10:39am31.7 s25.1-36.5A hematocrit value greater than 55% may lead to inaccurate results in coagulation testing. Patientshaving hematocrit values >55% require a special collection tube for coagulation studies. Please c ontact the laboratory at [phone] for redraw instructions.[facility] [id number] [address] [facility] [address] Microbiology Results Procedure Source Result Collection Date/Time Result Date/Time Result Comment Performing Site Aerobic Culture Other (See Comment) No Growth 2 Days April 25, 2025 11:40am April 27, 2025 8:29am [facility] [id number] [address] [facility] [address]Dfzbzsucx CultureOther (See Comment)No Anaerobes Isolated 3 DaysDe2024 11:40amDece2024 8:10am[facility] [id number] [address] [facility] [address]Zpuy StainOther (See Comment)April 25, 2025 11:40am April 26, 2025 2:26pmC[facility] [id number] [address] [place] [address] Diagnostic Imaging Reports Author Rodrick Carpenter [facility] HospitalAuthoredDeabrazo [facility] 2024 11:48amReport Dictated Date/TimeDictated ByStatusRadiology ReportDeabrazo scottsdale campus 2024 11:48am Rodrick Carpenter II [facility] [place] [address] [place] [address] XRay Report Signed Patient: Radha Woods MR#: [id number] : 1970 Acct:[id number] Age/Sex: 55 / F ADM Date: 5 Loc: [place] Room: Type: [facility] CL Attending Dr: Shubham Valentino DO Copies to: Shubham Valentino DO~ Ordering Provider: Shubham Valentino DO Date of Service: 04/18/25 XR/XR lumbar spine 6V w bending: M54.50 - Low back pain, unspecified XR lumbar spine 6V w bending 04/18/2025 10:02 AM SIGNS AND SYMPTOMS: Low back pain radiating into lower extremities PROTOCOLS: 6 views of the lumbar spine COMPARISON: 03/01/2025 FINDINGS: There is 5 mm of retrolisthesis of L3 upon L4 which extends to 7 mm on extension and reduces to 3 mm on flexion consistent with pathologic movement. There is no fracture or destructive lesion. Mild disc height loss is noted at L3-L4 and L4- 5. There is posterior fusion hardware at L3-L4 similar to the prior study. There is lucency surrounding the transpedicular screws suggesting hardware loosening. No hardware fracture. The sacrum and sacroiliac joints are normal. XR/XR lumbar spine 6V w bending IMPRESSION: There is 5 mm of retrolisthesis of L3 upon L4 which extends to 7 mm on extension and reduces to 3 mm on flexion consistent with pathologic movement. There is posterior fusion hardware at L3-L4 similar to the prior study. There is lucency surrounding the transpedicular screws suggesting hardware loosening. Impression dictated by: Rodrick Carpenter M.D. 04/18/2025 11:49 AM Dictation Location: [place] [address] Transcribed By: [facility] 04/18/25 1149 Dictated By: Rodrick Carpenter II, MD 04/18/25 1148 Signed By: <Electronically signed by Rodrick Carpenter II, MD in OV> 04/18/25 1149 Author Rodrick Carpenter [facility] HospitalAuthoredDeabrazo [facility] 2024 12:07pmReport Dictated Date/TimeDictated ByStatusRadiology ReportDeabrazo scottsdale campus 2024 12:07pm Rodrick Carpenter II [facility] [place] [address] [place] [address] Ultrasound Report Signed Patient: Radha Woods MR#: [id number] : 1970 Acct:[id number] Age/Sex: 55 / F ADM Date: 5 Loc: Room: Type: [facility] Attending Dr: Shubham Valentino DO Ordering Provider: Shubham Valentino DO Date of Service: 04/25/25 US/US needle aspiration: T85.738A - Infection and inflammatory reaction due to oth... Copies to: Shubham Valentino DO~ US needle aspiration 04/25/2025 11:57 AM SIGNS AND SYMPTOMS: ^T85.738A - Infection and inflammatory reaction due to oth... CONTRAST: 2 mL of Omnipaque 180 INFORMED CONSENT: Reason for procedure was discussed with the patient. The procedure expectations risks benefits options and alternatives were discussed. All the questions were answered. The patient understood the results cannot be guaranteed. The procedure is indicated and risks were acceptable. Consent was obtained. PROCEDURE: Using grayscale sonographic imaging a hypoechoic collection was visualized in the lumbar spine. The skin was marked over this fluid collection. The skin was prepped and draped in a sterile manner. 5 mL of lidocaine 2% without epinephrine used for local anesthesia. A 5 Burkinan one-step catheter was advanced towards the fluid collection to the right of midline. Attempts to aspirate fluid from the hypoechoic collection yielded only approximately 1 mL of blood-tinged fluid. This specimen was collected in a sterile specimen cup. The needle was removed and hemostasis was gained using manual pressure. A bandage was placed over the puncture site. The patient tolerated the procedure well. No immediate complications were detected. US/US needle aspiration IMPRESSION: Successful ultrasound-guided aspiration of a fluid collection the interspinous region as above yielding only 1 mL of blood-tinged fluid. Impression dictated by: Rodrick Carpenter M.D. 04/25/2025 12:12 PM Dictation Location: [place] [address] Tech: Monica Mcdowell Transcribed By: PWS 04/25/25 1212 Dictated By: Rodrick Carpenter II, MD 04/25/25 1207 Signed By: <Electronically signed by Rodrick Carpenter II, MD in OV> 04/25/25 1212 Vital Signs Vital Reading Result Reference Range Collection Date/Time Height 64 [in_i] February 18, 2025 9:48jxOhqskj14.60 kgOctober 2024 9:33amBMI (Body Mass Index)28.5 kg/g7Dvgzagb 2024 9:23ihNjgroo20 [in_i]March 25, 2025 11:35xvUybznw98.30 kgNovember 2024 11:15amBMI (Body Mass Index)28.5 kg/m2 March 25, 2025 11:17acWlhmes59 [in_i]April 25, 2025 10:57sbYtuvvz61.20 kgDecember 2024 10:29amHeart Rate68 /ucn56-898Cotyapsx 2024 12:02pm Respiratory rate14 /olq53-05Nkfiavax 2024 12:02pmOxygen saturation by Pulse jwgogepa32 %95-100December 2024 12:02pmBP Qlejdhio601 mm[Hg]100-140 April 25, 2025 12:02pmBP Llzbdmuos13 mm[Hg]60-100December 2024 12:49ypDvwbgs18.70 kgDecember 2024 11:00am Advance Directives Advance Directive Response Recorded Date/ Time Advance Directives No January 10:46am Insurance Providers Guarantor Radha Peggy Address [address] [place] [id number] Info.Home Phone: Coverage Status Update:2025 Payer Group Member ID Coverage Type Subscriber Relationship to Subscriber Effective Date Expiration Date [employer] Id: [id number] [place] Id: [id number] [facility] [address] Home Phone: Encounters Encounter Location(s) Arrival/Admit Date Discharge/Departure Date Discharge/Departure Disposition Provider(s) Departed Physician/ Provider Office Visit -[facility] February 18, 2025 10:29am February 18, 2025 12:10pm Discharged to home care or self care (routine discharge) Shubham Valentino DO Departed Physician/ Provider Office Visit -[facility] March 25, 2025 11:08am March 25, 2025 11:47am Discharged to home care or self care (routine discharge) Shubham Valentino DO [facility]ed [facility] April 18, 2025 8:28am April 18, 2025 8:29am Discharged to home care or self care (routine discharge) Shubham Valentino DO Departed [facility] April 25, 2025 9:57am April 25, 2025 12:09pm Discharged to home care or self care (routine discharge) Shubham Valentino DO Departed Physician/ Provider Office Visit -[facility] April 29, 2025 10:53am April 29, 2025 11:58am Discharged to home care or self care (routine discharge) Shubham Valentino DO Recent Diagnosis Onset Date Admit Date Fusion of lumbar spine Unknown February 182024 10:29am Greater trochanteric bursitis of both hips Unkno wn February 18, 2025 10:29am Pain of both sacroiliac joints Unknown O ctober 2024 10:29am Fusion of lumbar spine Unknown March 25, 2025 11:08am Infection associated with device Unknown April 25, 2025 9:57am Assessments Diagnosis Onset Date Resolution Status Admit Date Fusion of lumbar spine acuteOctober 2024 10:29amGreater trochanteric bursitis of both hipsacute February 18, 2025 10:29amPain of both sacroiliac jointsacuteOctober 2024 10:29amFusion of lumbar spineacuteNov2024 11:08amInfection associated with deviceacuteDecember 2024 9:57am Plan of Treatment Author [facility] 20[facility] 11:46amIn summary the patient is a 55-year-old female with a history of a L3-4 posterior spinal fusion without interbody placed as well as a subsequent washout for infection comes in today with persistent back pain that radiates into the anterior medial thighs and seldom past the knee. She comes in today with her fianc?? Neil. At this time reviewed the CAT scan with her where she does have a very obvious pseudoarthrosis with loosening of her screws particularly at the left L3-4 segment as well as the right L4 screws. I described that this pseudoarthrosis could be causing her to have back pain which I then described the L3 dermatomal distribution which could explain her leg pains. I expressed my concern that they are right greater than left fluid collections around the L3 and L4 pedicle screws and if she does have a history of infection I expressed my concern if this is a loculated infection. And so for this I made recommendations that she should undergo IR aspiration of the fluid collection particular in the right-hand side where it is bigger adjacent to the L3-4 screws. I discussed the purpose of this to confirm that this is a sterile fluid collection and a seroma. I then told her that if this is sterile that she may benefit from a revision surgery but then expressed my concern with her tobacco status as well as her osteoporosis and only only having had 1 dose of Fosamax. This patient would need revision of the L3-4 level with potential extension because of loosening of the screws. Looking at the haloing that surround the L4 screws on the sure if there is a screw big enough to fit this which at that point then 2 would have to discuss extending her fusion to give her better fixation. I again expressed my concern that with the osteoporosis and therefore we will request her DEXA scan as well to see what her spine came in as as she was told it was only the forehead that they scanned and was told that she has osteoporosis. I expressed my concern with revision of the fusion with osteoporosis and how it could fall apart again. All questions were answered to the satisfaction of the patient as well as her fianc?? Neil. Author Shubham Garzamercyone new[facility] medical centerruth [facility] HospitalAutredOctober 2024 10:37amIn summary is patient is a 55-year-old female with a history of an L3-4 [...] Future Visits Future appointment information is unavailable Future Procedures Procedure Name Ordered Date Scheduled Date Discharge Order April 25, 2025 12:04pm Rajani mbmayela 2024 12:04pm Future Medications Future medication information is unavailable Patient Instructions Instruction Admit Date [facility] Fine Needle Biopsy Know your Bridgette 2024 9:57am
--- OUTSIDE RECORDS SUMMARY | 2025-05-01 09:11 | XMS_ITS | Clinical Summary ---
Author Organization [facility] Address [facility] [address] [place] [address] Care Team Providers Care Yarn Dyer Name Role Phone Osiris Dixon DO Tejas Peryera Primary Care Provider Allergies Active AllergyReactionsCriticalityNoted TcnyVpzzffyxOzcjnrnw22/05/2023 Medications MedicationSigDispense QuantityRefillsLast FilledStart DateEnd DateStatus DULoxetine (CYMBALTA) 60 mg capsule Take 1 capsule (60 mg total) by mouth in the morning and 1 capsule (60 mg total) before bedtime.Active ibuprofen (ADVIL,MOTRIN) 800 mg tablet Take 1 tablet (800 mg total) by mouth 3 (three) times a day as needed for pain. Active MULTIVIT WITH MINERALS/LUTEIN (MULTIVITAMIN 50 PLUS ORAL) Take 1 tablet by mouth daily.Active calcium carbonate-vitamin D3 (OSCAL 500 + D) 500 mg(1,250mg) -200 units per tablet Take 1 tablet by mouth in the morning and 1 tablet in the evening. Take with meals.Active OXcarbazepine (TRILEPTAL) 150 mg tablet Take 300 mg by mouth 2 (two) times a day.Active linaCLOtide (LINZESS) 145 mcg capsule 1 capsule (145 mcg total) every morning before breakfast. PRNActive buPROPion SR (WELLBUTRIN SR) 150 mg 12 hr tablet Take 1 tablet (150 mg total) by mouth in the morning and 1 tablet (150 mg total) before bedtime.12/03/2019Active SYMBICORT 160-4.5 mcg/actuation inhaler 01/25/2020Active NON FORMULARY Unknown cholesterol medActive NON FORMULARY Morphine pumpActive sertraline (ZOLOFT) 50 mg tablet Take 50 mg by mouth nightly.07/22/2020ctive rosuvastatin (CRESTOR) 5 mg tablet Take 1 tablet (5 mg total) by mouth in the morning.07/22/2020ctive spironolactone (ALDACTONE) 25 mg tablet Take 1 tablet (25 mg total) by mouth in the morning.Active ertugliflozin (STEGLATRO) 15 mg tablet Take 7.5 mg by mouth in the morning.Active gabapentin enacarbil (HORIZANT) 600 mg tablet extended release Take 1 tablet (600 mg total) by mouth in the morning.Active aspirin 81 mg Take 1 tablet (81 mg total) by mouth in the morning.Active Active Problems ProblemNoted DateDiagnosed DateVaginal cvoedle40/16/2021Dyspareunia in female 1Cervical husgwyowsikjp37/13/2018 Overview (10/26/2017): Added automatically from request for surgery [id number] Occipital neuralgia of left side07/06/2017 Overview (07/06/2017): Added automatically from request for surgery [id number] Chronic migraine without aura, with intractable migraine, so stated, with status ukvbwwdoofq61/17/2018 Overview (06/01/2017): Added automatically from request for surgery [id number] Cervical spondylosis without cbgbyrflku13/20/2017Cervical stenosis of spine 03/28/2017 Family History Medical HistoryRelationNameCommentsDiabetesMaternal GrandfatherColon cancer Maternal UncleBack ProblemsMotherBreast cancerNeg HxRelationNameStatusComments FatherDeceasedMaternal GrandfatherMaternal UncleMotherAlive Social History Tobacco UseTypesPacks/DayYears UsedDateSmoking Tobacco: FormerCigarettes Smokeless Tobacco: NeverAlcohol UseStandard Drinks/WeekCommentsNo0 (1 standard drink = 0.6 oz pure alcohol)ChildcareAnswerDate RecordedChildcareUnknown 10/25/2018EmploymentAnswerDate IojnxuxoZqfohcrxycAqfyddk83/12/2019Hunger ScreeningAnswerDate RecordedWithin the past 12 months we worried whether our food would run out before we got money to buy more.Never True03/14/2023Within the past 12 months the food we bought just didn't last and we didn't have money to get more.Never True3Purpose - LifeAnswerDate RecordedPurpose and direction in zegyKowzpzu06/29/2021CommentsNoSex and Gender Information ValueDate RecordedSex Assigned at BirthNot on fileLegal DnaChvznn23/06/2015 11:27 AM EDTGender IdentityNot on fileSexual OrientationNot on file Last Filed Vital Signs Vital SignReadingTime TakenCommentsBlood Vhtfvocm005/5306 12:11 PM EDT Twplw852710/28/2022 12:11 PM JTQMwhuizydzti01.5 ??C (97.7 ??F)09/02/2017 9:55 AM EDTRespiratory Nwvc721406/17/2020 10:51 AM ESTOxygen Dyyvwwtpqk95%10/18/2022 10:35 AM EDTInhaled Oxygen Concentration--Zbrkbh94.8 kg (209 lb)03/14/2023 10:14 AM XORHdiars834.5 cm (5' 2 )03/14/2023 10:14 AM EDTBody Mass Index38.231 10:14 AM EDT Plan of Treatment Health MaintenanceDue DateLast DoneCommentsDepression Jjeptwcbx94/25/1981Tobacco Awosfxwit07/25/1981DTaP,Tdap and Td Vaccines (1 - Tdap)01/08/1988Zoster (Shingles) Vaccine (1 of 2)2019Pap Smear02/06/, 02/07/2020 Adult BMI Nepekinqg59Influenza Tshxqph62 Medical Devices ImplantedTypeAreaManufacturerDevice IdentifierShelf Expiration DateModel / Serial / LotNeuro PumpPumpMEDTRONIC [id number] / [id number] / Procedures Procedure NamePriorityDate/TimeAssociated DiagnosisCommentsHIGH RISK HPV W/MELIA Xbrsoxv2802/07/2020 1:47 PM EDT Cervical smear, as part of routine gynecological examination from Last 3 Months or Most Recently Relevant to Health Maintenance Results * High risk HPV w/melia (02/07/2020 1:47 PM EDT)ComponentValueRef RangeTest MethodAnalysis TimePerformed AtPathologist SignatureHpv specimen typeThinPrep 02/07/2020 5:38 PM EDTFLA [facility]MA [facility]COMM[facility] HOSPITALHpv 16NegativeNegative^Negative 02/12/2020 7:54 AM [facility] LABHpv 18Negative Negative^Vlhbwqxh48/29/2020 7:54 AM [facility] LABOther high risk hpvNegativeNegative^Siyygsnh96/29/2020 7:54 AM [facility] LABComment: HPV types 31,33,35,39,45,52,56,58,59,66 and 68 DNA were undetectable. Specimen (Source)Anatomical Location / LateralityCollection Method / Volume Collection TimeReceived TimeSerum / Zyugdhp9002/07/2020 1:47 PM EDT02/07/2020 6:01 PM EDT Narrative Authorizing ProviderResult TypeResult StatusAdriana Cooper MDLAB BLOOD ORDERABLES Final ResultPerforming OrganizationAddressCity/State/ZIP CodePhone Number [facility] [address] [place] [address] [facility] [address] [place] [address], [address] [place] [address] from Last 3 Months or Most Recently Relevant to Health Maintenance Insurance Care Teams Team MemberRelationshipSpecialtyStart DateEnd Date Tejas Newell Jr., DO [facility] [place] [id number] PCP - GeneralInternal Medicine11/03/16
--- OUTSIDE RECORDS SUMMARY | 2025-05-01 09:11 | XMS_ITS | Continuity of Care Document ---
Author Organization [facility] Address [address] [place] [address] Phone Care Team Providers Care Regional Branch Manager Name Role Phone Tejas Newell JR Primary Care Provider Shubham Valentino DO Attending Provider Care Teams Patient Care Team Team Status: Active Member Role/Relationship Status Dates Tejas Newell JR DO Primary Care Provider Active Visit Care Team Team Status: Inactive Member Role/Relationship Status Dates Tejas Newell JR DO Primary Care Provider Active Start: February 18, 2025 End: February 18, 2025Eric Yamilex Valentino DOAttending ProviderActiveStart: February 18, 2025 End: February 18, 2025 Visit Care Team Team Status: Inactive Member Role/Relationship Status Dates Tejas Newell JR DO Primary Care Provider Active Start: March 25, 2025 End: March 25, 2025Eric Yamilex Valentino DOAttending ProviderActiveStart: March 25, 2025 End: March 25, 2025 Visit Care Team Team Status: Inactive Member Role/Relationship Status Dates Tejas Newell JR DO Primary Care Provider Active Start: April 18, 2025 End: April 18, 2025Eric Yamilex Valentino DOAttending ProviderActiveStart: April 18, 2025 End: April 18, 2025 Visit Care Team Team Status: Inactive Member Role/Relationship Status Dates Tejas Newell JR DO Primary Care Provider Active Start: April 25, 2025 End: April 25, 2025Eric Yamilex Valentino DOAttending ProviderActiveStart: April 25, 2025 End: April 25, 2025 Chief Complaint and Reason for Visit Chief Complaint Admit Date LUMBAR BACK PAIN February 18, 2025 10 :29am imaging results March 25, 2025 11:08am M81.0 April 18, 2025 8 :28am T85.738A April 25, 2025 9:57am Reason for Visit Admit Date Fusion of lumbar spine February 18, 2025 10:29am Greater trochanteric bursitis of both hi ps February 18, 2025 10:29am Pain of both sacroiliac joints February 182024 10:29am Fusion of lumbar spine March 25 11:08am Infection associated with device Decembe r 2024 9:57am Allergies, Adverse Reactions, Alerts Allergen Type Severity Reaction Last Updated Verified Status No Known Allergies Allergy Unknown April 25, 2025 10:29amYesActive Social History Smoking Status Status Start Date End Date Date of Observa tion Smokes tobacco daily (finding) April 25, 2025 12:10pm Observation Status Observation Response Date of Response Legal Sex Female (finding) Sex Assigned At Counts include 234 beds at the [facility] 1969 Problems Active Problems Problem Diagnosis/Recorded Date [...] 11:00pmComplies with drug therapyIbuprofen 800 mg tablet Grxhnz164FJCBFyqyl 8 hoursOctober 2023 11:00pmComplies with drug therapy Rosuvastatin (Crestor) 5 mg zvjpnjPfrpbl0ULMVKyqkcUdydxlu 2023 11:00pm Complies with drug therapypotassium chlorideDiscontinuedPOOctober 2023 11:00pmOctober 2024 9:36amMetronidazole 500 mg vedzyqTvvbhtprhsyb153TOXO Twice dailyOctober 2023 11:00pmDecember 2023 1:25pmcalcium carbonate (Calcium 600)DiscontinuedPOOctober 2023 11:00pmOctober 2024 9:36am ysikhjfoxsfaAaghgm0FHQYNXbxspQikespx 2023 11:00pmComplies with drug therapyTizanidine 4 mg gqeymdYrttyz3FTQMSnmsw at bedtimeOctober 2024 11:00pmComplies with drug therapyAcetaminophen-Codeine 300-30 mg tabletActive1 TABPOTwice dailyOctober 2024 11:00pmComplies with drug therapyAspirin 81 mg kbjvzkOtvijh52GCXWVunvkDykqjny 2024 11:00pmComplies with drug therapy Ezetimibe 10 mg owzgfcSgmvce51UHAWDgoymNywiznn 2024 11:00pmComplies with drug therapy Procedures Procedure Date Performed Status XR dexa axial skeleton April 18, 2025 8:29am completed XR lumbar spine 6V w bending April 18, 2025 9:46am completed US needle aspiration April 25, 2025 10:06am completed Relevant Diagnostic Tests and/or Laboratory Data Laboratory Results Test Collection Date/Time Result Date/Time Result Interpretation Reference Range Result Comment Performing Site Platelet Count April 25, 2025 10:25am April 252024 10:49am 309 10*3/uL 150-450[facility] [id number] [address] [facility] [address]Vnogvsgldol TimeDece2024 10:25amDecember 2024 10:39am10.9 s9.0-12.9A hematocrit value greater than 55% may lead to inaccurate results in coagulation testing. Patientshaving hematocrit values >55% require a special collection tube for coagulation studies. Please contact the laboratory at [phone] for redraw instructions.[facility] [id number] [address] [facility] [address]Sjabzjxgh Time International RatioDece2024 10:25am April 25, 2025 [...] patients with mechanical heart valves: [facility] [id number] [address] [place] [address]Hgvttofxv Partial Thromboplast TimeDece2024 10:25am April 25, 2025 10:39am31.7 s25.1-36.5A hematocrit value greater than 55% may lead to inaccurate results in coagulation testing. Patientshaving hematocrit values >55% require a special collection tube for coagulation studies. Please c ontact the laboratory at [phone] for redraw instructions.[facility] [id number] [address] [place] [address] Diagnostic Imaging Reports Author Rodrick Carpenter [facility] HospitalAuthoredDesummit [facility] 2024 11:48amReport Dictated Date/TimeDictated ByStatusRadiology ReportMeadville Medical Center 2024 11:48am Rodrick Carpenter II MDcomplete[facility] [place] [address] [place], [place] [address] XRay Report Signed Patient: Radha Woods MR#: [id number] : 1970 Acct:[id number] Age/Sex: 55 / F ADM Date: 5 Loc: IN Room: Type: [facility] Attending Dr: Shubham Valentino DO Copies to: [...] Carpenter M.D. 04/18/2025 11:49 AM Dictation Location: [place] [address] Transcribed By: [facility] 04/18/25 1149 Dictated By: Rodrick Carpenter II, MD 04/18/25 1148 Signed By: <Electronically signed by Rodrick Carpenter II, MD in OV> 04/18/25 1149 Author Rodrick Carpenter [facility] HospitalAuthoredDesum[facility] 2024 12:07pmReport Dictated Date/TimeDictated ByStatusRadiology ReportDesummit healthcare regional medical center 2024 12:07pm Rodrick Carpenter II [facility] [place] [address] [place] [address] Ultrasound Report Signed Patient: Radha Woods MR#: [id number] : 1970 Acct:[id number] Age/Sex: 55 / F ADM Date: 5 Loc: Room: Type: [facility] Attending Dr: Shubham Valentino DO Ordering Provider: [...] epinephrine used for local anesthesia. A 5 [place] one-step catheter was advanced towards the fluid [...] Carpenter M.D. 04/25/2025 12:12 PM Dictation Location: [place] [address] Tech: Monica Mcdowell Transcribed By: [facility] 04/25/25 1212 Dictated By: Rodrick Carpenter II, MD 04/25/25 1207 Signed By: <Electronically signed by Rodrick Carpenter II, MD in OV> 04/25/25 1212 Vital Signs Vital Reading Result Reference Range Collection Date/Time Height 64 [in_i] February 18, 2025 9:99arCehetr75.60 kgOctober 2024 9:33amBMI (Body Mass Index)28.5 kg/c9Ajridiq 2024 9:53lpYlqrie61 [in_i]March 25, 2025 11:27hbJqmohp69.30 kgNovember 2024 11:15amBMI (Body Mass Index)28.5 kg/m2 March 25, 2025 11:88xxVxqaal63 [in_i]April 25, 2025 10:31vbRtbgme50.20 kgDecember 2024 10:29amHeart Rate68 /sog78-400Pcdeaxex 2024 12:02pm Respiratory rate14 /dat25-16Dxkzlvip 2024 12:02pmOxygen saturation by Pulse ubycpzof27 %95-100April 25, 2025 12:02pmBP Zncuoznr227 mm[Hg]100-140 April 25, 2025 12:02pmBP Opukxsbhc59 mm[Hg]60-100December 2024 12:02pm Advance Directives Advance Directive Response Recorded Date/ Time Advance Directives No January 10:46am Insurance Providers Guarantor Radha Dixonley Address [address] [facility] [address]Mdznvyb Info.Home Phone: Coverage Status Update:2025 Payer Group Member ID Coverage Type Subscriber Relationship to Subscriber Effective Date Expiration Date [employer] Id: [id number] Yeison Id: [id number] [id number] [facility] [address] Home Phone: Encounters Encounter Location(s) Arrival/Admit Date Discharge/Departure Date Discharge/Departure Disposition Provider(s) Departed Physician/ Provider Office Visit -[facility] February 18, 2025 10:29am February 18, 2025 12:10pm Discharged to home care or self care (routine discharge) Shubham Valentino DO Departed Physician/ Provider Office Visit -[facility] Neurosurgery March 25, 2025 11:08am March 25, 2025 11:47am Discharged to home care or self care (routine discharge) Shubham Valentino DO [facility]arted [facility] April 18, 2025 8:28am April 18, 2025 8:29am Discharged to home care or self care (routine discharge) Shubham Valentino DO Departed Surgical Day Care -Ultrasound [facility] April 25, 2025 9:57am April 25, 2025 [...] 2024 9:57am Plan of Treatment Author Shubham Valentino [facility] HospitalAuthoredNovember 2024 11:46amIn summary the patient is a [...] well as her fianc?? Neil. Author Shubham Valentino [facility] HospitalAuthoredOctober 2024 10:37amIn summary is patient is a [...] Date Discharge Order April 25, 2025 12:04pm Dece mber 2024 12:04pm Future Medications Future medication information is unavailable Patient Instructions Instruction Admit Date [facility] Fine Needle Biopsy Know your MedsDecember 2024 9:57am
--- OUTSIDE RECORDS SUMMARY | 2025-05-01 09:11 | XMS_ITS | Clinical Summary ---
Author Organization [facility] Address [address] [place], [place] [address] Care Team Providers Care Steel Checker Name Role Phone Osiris Dixon DO, Charles Lewis Primary Care Provi sourav Terry Martinez MD Unavailable [phone] Hussein Aguilar Unavailable Allergies No known active allergies Medications MedicationSigDispense QuantityRefillsLast FilledStart DateEnd DateStatus BACLOFEN ORAL Take 100 mg by mouth once daily.Active OXcarbazepine (TRILEPTAL) 150 mg tablet Indications:Facet syndrome,Pain in thoracic spine,Radiculopathy, cervical region ,Vitamin D deficiency,Localized swelling, mass and lump, trunk,Cervical post- laminectomy syndrome,Cervical spondylosis without myelopathy,Current smoker, Malaise and fatigue,Spinal stenosis of cervical regionTake 1 tablet by mouth twice daily.12/08/2017Active oxyCODONE-acetaminophen (PERCOCET) 5-325 mg tablet Indications:Facet syndrome,Pain in thoracic spine,Radiculopathy, cervical region ,Vitamin D deficiency,Localized swelling, mass and lump, trunk,Cervical post- laminectomy syndrome,Cervical spondylosis without myelopathy,Current smoker, Malaise and fatigue,Spinal stenosis of cervical regionTake 1 tablet by mouth every 4 hours as needed.Active DULoxetine (CYMBALTA) 60 mg capsule Cymbalta 60 mg capsule,delayed release Take 1 capsule twice a day by oral route.Active Active Problems ProblemNoted DateDiagnosed DateNeck pain12/01/2015Cervical spondylolysis 12/01/2015Back painFormer smoker Family History Medical HistoryRelationCommentsArthritisMaternal GrandmotherCancerMaternal Uncle ArthritisMotherHypertensionPaternal GrandfatherStrokePaternal Grandfather RelationStatusCommentsMaternal GrandmotherMaternal UncleMotherPaternal Grandfather Social History Tobacco UseTypesPacks/DayYears UsedDateSmoking Tobacco: QqympuVyzvalbymm835 Smokeless Tobacco: NeverAlcohol UseStandard Drinks/WeekCommentsNo0 (1 standard drink = 0.6 oz pure alcohol)Area Deprivation IndexAnswerDate RecordedNational Score (1-100), lower number is lower riskNot on file04/24/2020State Score (1- 10), lower number is lower riskNot on file04/24/2020Data from: https://www.neighborhoodatlas.medicine.[facility].edu/. Last address used for calculationNot on file04/24/2020CommentsNoSex and Gender Information ValueDate RecordedSex Assigned at BirthNot on fileLegal OghGbawcy06/13/2016 2:07 PM EDTGender IdentityNot on fileSexual OrientationNot on fileOccupationIndustry Job Start DateJob End Datepress operatorNot on fileNot on fileNot on file Last Filed Vital Signs Vital SignReadingTime TakenCommentsBlood Cwfqbwqk693/4709 10:43 AM EDT Fvabk5534/28/2018 10:43 AM EDTTemperature--Respiratory Gjcw065002/10/2018 10:43 AM EDTOxygen Saturation--Inhaled Oxygen Concentration--Jwafve25.9 kg (154 lb) 02/10/2018 10:43 AM LAIIfaeuj000.6 cm (5' 4 )12/01/2015 2:48 PM EDTBody Mass Index26.4307 2:48 PM EDT Plan of Treatment Health MaintenanceDue DateLast DoneCommentsAnxiety Avmbfnosy54/25/1987Depression Hvdvzbezi73/25/1987HIV Nchjgqiya19/25/1987Hepatitis C Excdxyolm82/25/1987 DTaP,Tdap,Td Vaccine (1 - Tdap)01/08/1988Hepatitis B Vaccine (1 of 3 - 19+ 3- dose series)01/08/1988Cervical Cancer Supwfpcar05/25/1990CT Colonography 2014Cologuard (FIT-DNA)01/07/20144820Qeqvajlqpjh49/25/2014Colorectal Cancer Gqnrkarmg56/25/2014Diabetes Wcywvtnlc17/25/2014Fecal Occult Blood2014Lipid Ifctyqztp22/25/5502Dxwcyscrnsjkc07/25/2014Mammogram Sskjqmdqd54/06/2019 12/19/2017Pneumococcal Vaccine: 50+ (1 of 1 - PCV)2019Shingrix Vaccine (1 of 2)2019Covid-19 Vaccine (1 - 2024- season)2025Influenza Vaccine (#1)2025RSV Vaccine (1 - 1-dose 75+ series)01/08/2044 Care Teams Team MemberRelationshipSpecialtyStart DateEnd Date Tejas Newell Jr., DO [address] [facility] [place] [address] PCP - GeneralInternal Medicine11/26/15 Terry Martinez MD [address] [facility] [place] [address] ReferringNeurology11/26/15 Hussein Aguilar PA [address] [facility] [place] [address] ReferringPain Management11/28/17
--- OUTSIDE RECORDS SUMMARY | 2025-05-01 09:11 | XMS_ITS | Clinical Summary ---
Author Organization [facility] Address [address] [place] [address] Care Team Providers Care Accounting Teacher Name Role Phone Tejas Newell MD Primary Care Provider + [phone] Allergies No known active allergies Medications MedicationSigDispense QuantityRefillsLast FilledStart DateEnd DateStatus DULoxetine (Cymbalta) [address] capsule Take 60 mg by mouth in the morning.Active rosuvastatin (Crestor) 5 MG tablet Take 5 mg by mouth Daily05/13/2024ctive celecoxib (CeleBREX) 200 MG capsule Take 200 mg by mouth in the morning and 200 mg before bedtime.5Active Calcium Carb-Cholecalciferol (Oyster Shell Calcium w/D) 500-5 MG-MCG tablet Take 1 tablet by mouth in the morning and 1 tablet in the evening. Take with meals.Active gabapentin enacarbil (Horizant) 600 MG tablet controlled-release ER tablet Take 600 mg by mouth in the morning.Active ibuprofen 800 MG tablet Active linaCLOtide (Linzess) 145 MCG capsule Active Multiple Vitamins-Minerals (MULTIVITAMIN ADULTS PO) Take 1 tablet by mouth in the morning.Active Resolved Problems ProblemNoted DateDiagnosed DateResolved DateArthrodesis sodgee3406/26/2024 06/26/2024ack painDDD (degenerative disc disease), lumbar Dehiscence of operative woundEncounter for other orthopedic vfiazfwjn07Former yynfkw0806/26/2024 06/26/2024Trochanteric bursitis, left hipUrinary hfwfajawyxro53/11/39905206/26/2024Vaginal eebkbmo02Dyspareunia in osvbyd52ute alqkuunuw64Numbness Numbness of handOccipital neuralgia of left side Overview (06/26/2024): Added automatically from request for surgery [id number] Chronic migraine without aura, with intractable migraine, so stated, with status gubpgboheeb75 Overview (06/26/2024): Added automatically from request for surgery [id number] Cervical spondylosis without ffppivnoay16ervical ptelpyzmvrmgh39 Overview (06/26/2024): Added automatically from request for surgery [id number] Amadfchckkjj11Neck pain Immunizations ImmunizationAdministration DatesNext DueInfluenza, High Dose Seasonal, Preservative Free03/06/2020Pfizer Purple Cap SARS-CoV-2 Djsosuzzciw71/17/2021, 11/09/2020 Social History Tobacco UseTypesPacks/DayYears UsedDateSmoking Tobacco: Every DayCigarettes Smokeless Tobacco: Never Tobacco Cessation:Ready to Q uit: Not Asked; Counseling Given: Not Answered Alcohol UseStandard Drinks/WeekCommentsNot Currently0 (1 standard drink = 0.6 oz pure alcohol)CommentsUnknownSex and Gender InformationValueDate Recorded Sex Assigned at BirthNot on fileLegal JxdPhpwui58/30/2025 4:06 PM ESTGender IdentityNot on fileSexual OrientationNot on file Last Filed Vital Signs Vital SignReadingTime TakenCommentsBlood Pressure--Pulse--Temperature-- Respiratory Rate--Oxygen Saturation--Inhaled Oxygen Concentration--Cytvjd89.1 kg (170 lb)06/26/2024 9:30 AM VZHVkucsb172 cm (5' 3 )06/26/2024 9:30 AM ESTBody Mass Index30.11006/26/2024 9:30 AM EST Plan of Treatment Health MaintenanceDue DateLast DoneCommentsCT Zbqiyvzrbhtu1969Colonoscopy 1970Colorectal Cancer Fikxnpnme1969FIT-DNA1969FIT1970 FOBT1970 3862Dxjvcxzjsxtfp41/25/9417Yyjjhknqe47/16/202109/, 12/19/2017 Pap Smear/COVID-19 Vaccine ( season)2025 11/29/2020, 11/09/2020Influenza Vaccine (#1)Cervical Cancer Nqgametyi71/24/2025HPV/Hpowbs58Pneumococcal Vaccine: Pediatrics (0 to 5 Years) and At-Risk Patients (6 to 64 Years)Aged OutNo longer eligible based on patient's age to complete this topic Insurance Care Teams Team MemberRelationshipSpecialtyStart DateEnd Date Tejas Newell MD [address] [place] [phone] PCP - GeneralInternal Medicine06/26/24
--- OUTSIDE RECORDS SUMMARY | 2025-05-01 09:12 | XMS_ITS | Patient Health Record ---
Author Organization [facility] Address [address] [place] [address] Care Team Providers Care Plant Technician Name Role Phone Nicole Collado Unavailable [phone] Tejas Newell Unavailable Unavailable Allergies Allergen (clinical drug ingredient) Drug/Non Drug Allergy documented on EMR Reaction Allergy Type Onset Date Status morphine morphine Unknown Drug Allergy Active Reason For Referral No Information Medications Medication SIG (Take, Route, Frequency, Duration) Notes Start Date End Date Status ibuprofen ActiveFlexeril 10 mg1 tab(s) orally 3 times a day prn muscle hsszbs1309/05/2023 ActiveCyclobenzaprine Hydrochloride 10 mg1 tab(s) orally 3 times a day prn muscle rbawfv2310/14/2023ctiveMedrol Dosepak 4 mgas directed as directed 4ActiveCymbaltaActiveBayer AspirinActiverosuvastatinActiveFlexeril 10 mg1 tab(s) orally 3 times a day4ActiveCalcium 600+DActiveVitamin B-12 Active Social History Does Anyone in your household smoke Question Answer Notes ? Yes Problems Problem Type SNOMED Code ICD Code Onset Dates Problem Status W/U Status Risk Notes Problem History of arthrodesis (796994291) Arthro desis status (Z98.1) ActiveconfirmedProblemDehiscence of surgical wound (29764855)Disruption of external operation (surgical) wound, not elsewhere classified, initial encounter (T81.31XA)ActiveconfirmedProblemDehiscence of surgical wound (16537271) Disruption of external operation (surgical) wound, not elsewhere classified, subsequent encounter (T81.31XD)ActiveconfirmedProblemDegenerative disc disease (63650652)DDD (degenerative disc disease), lumbar (M51.36)ActiveconfirmedProblem Urinary incontinence (823588346)Urinary incontinence, unspecified type (R32) ActiveconfirmedProblemSpinal stenosis of lumbar region (37637841)Spinal stenosis, lumbar region without neurogenic claudication (M48.061)Activeconfirmed ProblemEncounter for other orthopedic aftercare (Z47.89)ActiveconfirmedProblem Trochanteric bursitis of left hip (293208004023747)Trochanteric bursitis, left hip (M70.62)ActiveconfirmedProblemLumbar radiculopathy (408422150)Radiculopathy, lumbar region (M54.16)ActiveconfirmedProblemDisplacement of lumbar intervertebral disc without myelopathy (75103652)Other intervertebral disc displacement, lumbar region (M51.26)Activeconfirmed Plan Of Treatment Pending Test Test Name Order Date Lumbar spine, 4v flex ext - 52329 2023 Lumbar spine, 4v flex ext - 65889 2023 Lumbar spine 2v ap and lat - 84291 02/16 Lumbar spine 2v ap and lat - 02643 10/06 Lumbar spine 2v ap and lat - 49991 11/03 DME - Lumbar Support, Surgical OTS 08/25 SFS - Lumbar Spine PT Order, Isometrics & Strenghening w/Modalities as needed, 2-3 times per week for 6 weeks 07/15/2023 MRI : Lumbosacral Spine W/O Contrast - 7 8 11/11/2023 Future Test Test Name Order Date Chest 2 views - 55215 08/03/2023 CBC 08/03/2023 Type and Screen Blood Type 08/03/2023 PT/PTT 08/03/2023 BMP 08/03/2023 MRSA (Bilateral Nares) PCR 08/03/2023 EKG 08/03/2023 Insurance Providers Payer Name Payer Address Payer Phone Subscriber Number Group Number Insured Name Patient Relationship to Insured Coverage Start Date Coverage End Date [employer] [address] [address] [place] [address] [id number] RAHEEM DUNCAN Self - patient is the insured Medical (General) History Medical History History ICD Code Osteoarthritis AnxietyDepressionSurgical History Surgery Date(Month/Year) Lumbar wound I & D, closure 09/2023 L3-4 laminectomy, PSF 08/2023 Pain pump implant Fusion
--- OUTSIDE RECORDS SUMMARY | 2025-05-01 09:12 | XMS_ITS | Clinical Summary ---
Author Organization [facility] Address [address] [facility], [address] [place] [address] Care Team Providers Care Dye Worker Name Role Phone Tejas Newell DO Primary Care Provider [phone] Social History Tobacco UseTypesPacks/DayYears UsedDateSmoking Tobacco: Never Assessed CommentsUnknownSex and Gender InformationValueDate RecordedSex Assigned at Not on fileLegal BpyDtoeeb99/17/2019 1:47 PM ESTGender IdentityNot on fileSexual OrientationNot on file Plan of Treatment Not on file Insurance Care Teams Team MemberRelationshipSpecialtyStart DateEnd Date Tejas Newell DO [facility] [place] [address] PCP - GeneralInternal Mtvrnemd10/17/19
--- NOTE | 2025-05-01 09:17 | PM.CN ---
Consult Note: HPI Data of Consult Patient: known to practice within the last 3 years Consult date: 05/01/25 Requesting Physician: Anh Gatica NP Primary Care Provider: ULYSSES RICHARDSON DO Consult Narrative Reason for consult: low back, left leg pain Narrative: [id number] who presents for evaluation. low back pain. imaging shows multilevel degenerative changes, stenosis, fusion at l3-4. fusion performed [address] Velasquez, had infection and reoperated last year. has engaged in a series of provider directed home exercises >6 weeks, without lasting benefit. currently utilizing cymbalta 60mg once daily, otc ibuprofen, and tizanidine 8mg HS. pt failed to benefit from interventional therapy, does have a hx of significant infection with an intrathecal pump and scs trial. continues to endorse severe low back and bilateral leg pain, numbness, tingling. since last visit she underwent a left greater trochanteric bursa injection with no relief. She is now established with Dr Valentino at [facility], pending L1-L5 lumbar fusion May 2025. cc:: CC: Anh Gatica NP Review of Systems ROS Musculoskeletal Reports: back pain and extremity pain PFSH [facility] Medical History DDD (degenerative disc disease) Osteopenia ?M85.80 - Other specified disorders of bone density and structure, unspecified site (ICD-10) Back pain ?M54.9 - Dorsalgia, unspecified (ICD-10) Depression ?F32.A - Depression, unspecified (ICD-10) Spinal stenosis ?M48.00 - Spinal stenosis, site unspecified (ICD-10) Neuropathy ?G62.9 - Polyneuropathy, unspecified (ICD-10) Migraine ?G43.909 - Migraine, unspecified, not intractable, without status migrainosus (ICD-10) GERD (gastroesophageal reflux disease) ?K21.9 - Gastro-esophageal reflux disease without esophagitis (ICD-10) Delayed recovery from anesthesia Menopause ?Z78.0 - Asymptomatic menopausal state (ICD-10) Surgical History H/O lumbosacral spine surgery ?Z98.890 - Other specified postprocedural states (ICD-10) S/P insertion of intrathecal pump ?Z98.890 - Other specified postprocedural states (ICD-10) S/P cervical spinal fusion ?Z98.1 - Arthrodesis status (ICD-10) Family History Other Family history of colon cancer Family history of diabetes mellitus Social History Within the past year, how often did you have a drink containing alcohol: never Score interpretation: A score less than 3 is consistent with normal alcohol consumption. Smoking status: Current every day smoker What tobacco products do you use: cigarettes Packs per day: 1 Years smoked: 39 Smoking pack-years: 39.00 Non-prescribed substance use: denies use Highest level of school completed/degree received: high school graduate Meds Home Medications and Allergies Home Medications ?Medication ?Instructions ?Recorded ?Confirmed ?Type duloxetine 60 mg capsule,delayed 60 mg PO BID 08/17/23 01/10/25 History release (Cymbalta) rosuvastatin 5 mg tablet (Crestor) 5 mg PO DAILY 08/17/23 08/27/24 History ibuprofen 800 mg tablet (IBU) 800 mg PO BID 01/10/25 01/10/25 History tizanidine 4 mg capsule 8 mg PO .QHS PRN muscle spasticity 01/10/25 01/10/25 History acetaminophen 300 mg-codeine 30 mg 1 tab PO BID PRN pain #60 tabs 02/19/25 Rx tablet acetaminophen 300 mg-codeine 30 mg 1 tab PO BID PRN pain #60 tabs 03/28/25 Rx tablet Allergies Allergy/AdvReac Type Severity Reaction Status Date / Time morphine AdvReac overdose Verified 08/27/24 08:02 Exam Constitutional Documenting provider has reviewed patient's vital signs: yes Common normals: no apparent distress, oriented x3 and alert General appearance: cooperative HENMT Common normals: normocephalic, hearing grossly normal bilaterally and moist oral mucous membranes Head and scalp: normocephalic Eye Common normals: PERRL Pupil: PERRL Neck & C-Spine Common normals: full ROM General: normal visual inspection Chest Common normals: inspection of chest normal Respiratory Common normals: normal respiratory effort, no retractions and no use of accessory muscles Back & Pelvis Lumbar spine/lower back: ROM limited, pain with ROM, lumbar spinal tenderness (L1-5) and straight leg raise negative bilaterally Other: strength 5/5 in BLE sensation intact BLE positive facet loading bilaterally Neuro Common normals: oriented x3 Sensorium/orientation: alert Psych Common normals: mental status grossly normal, thought process normal, cooperative, affect normal, speech normal and activity/motor behavior normal Speech: normal speech Thought process: normal thought process Results Additional Findings Additional findings: If on a controlled substance or opioids, I have checked an [place]AR[place] report on this patient and there are no aberrancies noted in the prescribing history.??If on a controlled substance or opioid a drug screen was completed and reviewed within the last year, and if there has not been a drug screen completed we ordered one today to monitor higher risk, state monitored pain medication use. As part of providing excellent, safe, comprehensive care, the following was completed at our patient's visit: 1. A medication reconciliation and review to ensure accurate knowledge of current/active medications, including asking our patients to inform us about any [id number] medications or herbal remedies/nutritional supplements/alternative remedies. 2. A review to specifically ensure our patients have had annual screening for screening for depression, screening for tobacco use, and screening for unhealthy alcohol use. For concerning screenings had a discussion with the patient, provided patient education, and recommended follow-up with primary care provider when appropriate. If patient noted with a risk of falling, they received education on strength, gait, and balance training to prevent future risk of falling. Portions of this note may have been carried over from the previous visit and updated as appropriate. Please note this office utilizes paper charting in addition to the electronic medical record. A list of current medications, vitals, and PMH is available there as the clinical staff outside of myself do not have access to [employer] charting during the clinic day operations. As part of providing quality comprehensive care the current medications, vitals, and PMH were reviewed in the paper chart. Assessment and Plan Assessment and Plan (1) Lumbar postlaminectomy syndrome: (2) Lumbar spondylosis: (3) Chronic use of opiate drug for therapeutic purpose: Assessment and Plan: I feel these medications are improving the patient's quality of life and allow them to tolerate activities of daily living as well as participate in recreational activity.? The patient does not report intolerable side effects. The patient is NOT opioid naive and non-pharmacologic and non-opioid treatment has failed to significantly relieve the patient's pain and improve functionality. The patient has a diagnosis that is related to a somatic or visceral pain etiology. ? ?? I reviewed with the patient the potential risks and side effects with the use of? opioid medications including but not limited to respiratory depression,? sedation, and even . Within the last 12 months I have verified the patient has access to naloxone should? these effects occur. The patient was advised to let? their family know they had Naloxone in case they would need to administer? the medication. I advised the patient to avoid the use of any other? sedation substances including alcohol, THC, and benzodiazepines while? taking opioid medications due to the risk of compounding side effects and? detrimental outcomes. within the last 12 months I have reviewed the [employer], pain treatment agreement and urine drug screen.? ?? A drug screen was completed within the last year, and no aberrancies were noted regarding their use of controlled substances. The patient understands they are subject to the terms and conditions of the pain contract that they have signed. ? ?? I have checked an OARRS report on this patient today and there are no aberrancies noted in the prescribing history.? (4) Cervical myofascial pain syndrome: Plan The patient has had over 3 months of moderate to severe low back and BLE pain with functional impairment and inadequate response to conservative care including NSAIDS (unless there are contraindication such as concurrent blood thinners), multiple oral or topical pain medications, and home exercise program/physical therapy.? Patient has completed >6 weeks of guided home exercise program and/or formal physical therapy program without relief of their symptoms.? The Oswestry Disability Index was completed, and the patient scored a 51%.? continue f/u with NS as planned, pending L1-[address] Valentino May 2025. pt verbalized understanding to dc tylenol #3 BID PRN moderate-severe pain while NS manages acute post op pain. at this time decrease duloxetine 30mg once daily for 1 month then stop, pt failed to benefit from duloxetine 60mg BID for her chronic pain. continue motrin otc prn and tizanidine 8mg HS through PCP. pt to call our office once cleared by NS post-operatively. f/u 3 months, sooner if needed
== END 2025-05-01 09:04 | disposition home or self-care (01) ==
LOC: PM 09:04
PROVIDERS: PCP Internal Medicine; Visit Provider Nurse Practitioner
DX: M96.1 Postlaminectomy syndrome, not elsewhere classified (principal); M47.816 Spondylosis without myelopathy or radiculopathy, lumbar region; Z79.891 Long term (current) use of opiate analgesic; M79.18 Myalgia, other site
CPT/HCPCS: G0463